=== PATIENT | female | born 1990 | race Caucasian/White ===

== ENCOUNTER 2023-03-12 21:59 | Outpatient (OUT) | payer MEDICAID, SELFPAY ==
[2023-03-15 18:09] LABS: Age Gdln ACOG Testing Note (.); HPV Aptima Negative (Negative); IGP, Aptima HPV, rfx 16/18,45 Note (.)
== END 2023-03-12 22:00 ==
PROVIDERS: PCP Physician Assistant; Visit Provider Physician Assistant
DX: Z12.4 Encounter for screening for malignant neoplasm of cervix (principal); Z11.51 Encounter for screening for human papillomavirus (HPV)
CPT/HCPCS: 87624; G0145

== ENCOUNTER 2023-08-01 13:26 | Outpatient (RCR) | payer MEDICAID, SELFPAY ==
[2023-08-01 14:30] LABS: HCG Quantitative 1250 mIU/mL
[2023-08-03 12:08] LABS: HCG Quantitative 8433 mIU/mL
== END 2023-08-30 16:57 | disposition home or self-care (01) ==
LOC: LAB 13:26
PROVIDERS: PCP Physician Assistant; Visit Provider Obstetrics & Gynecology
DX: N92.6 Irregular menstruation, unspecified (principal)
CPT/HCPCS: 36415; 84702

== ENCOUNTER 2023-08-30 13:26 | Outpatient (OUT) | payer MEDICAID, SELFPAY ==
--- NOTE | 2023-08-30 13:27 | US_ITS ---
[address] [address] Patient Name: CRISTIAN DONALDSON MRN: [id number] date: 1990 Sex: F Assigned Patient Location: US Current Patient Location: US Accession/Order Number: [id number] Exam Date: 08/30/2023 13:44 Report Date: 08/30/2023 15:46 At the request of: DAVIN RGEEN Procedure: US OB transvaginal EXAMINATION: US OB transvaginal HISTORY: MISSED MENSES COMPARISON: No relevant comparison available. FINDINGS: GESTATIONAL SAC: Present and normal appearing. YOLK SAC: Present and normal appearing. POLE: Present and normal appearing. CARDIAC: Present. UTERUS: Normal size and appearance. OVARIES: Right: Normal. Left: Corpus lutein cyst. CERVIX: 4.0 cm in length and closed. CUL-DE-SAC: Normal. OTHER: None. AGE BY LMP: 9 weeks 0 days CLAUDETTE BY LMP: 04/03/2024 AGE BY US CRL: 9 weeks 2 days CLAUDETTE BY US CRL: 04/01/2024 US/US OB transvaginal IMPRESSION: 1. Single live intrauterine . Electronically authenticated by: BOBBI SIMONS Date: 08/30/2023 15:46
== END 2023-08-30 13:27 | disposition home or self-care (01) ==
LOC: US 13:26
PROVIDERS: PCP Physician Assistant; Visit Provider Obstetrics & Gynecology
DX: Z34.91 Encounter for supervision of normal pregnancy, unspecified, first trimester (principal); Z3A.09 9 weeks gestation of pregnancy
CPT/HCPCS: 76817

== ENCOUNTER 2023-09-07 13:33 | Outpatient (OUT) | payer MEDICAID, SELFPAY ==
[2023-09-07 14:04] LABS: Basophils Percent Auto 0.4 % (0.2-2.0); Eosinophils Absolute Auto 0.1 10^3/uL (0.0-0.7); Eosinophils Percent Auto 1.8 % (0.9-7.0); Hematocrit 35.5 % (36.0-48.0); Hemoglobin 11.7 g/dL (12.0-16.0); Immature Granulocytes Abs Auto 0.02 10^3/uL (0.00-0.03); Immature Granulocytes Pct Auto 0.3 % (0.0-0.5); Lymphocytes Absolute Auto 1.6 10^3/uL (1.2-3.8); Lymphocytes Percent Auto 22.4 % (20.5-60.0); Mean Corpuscular Hemoglobin 29.5 pg (26.7-34.0); Mean Corpuscular Volume 89.6 fL (81.0-99.0); Mean Platelet Volume 10.3 fL (9.5-13.5); Monocytes Absolute Auto 0.4 10^3/uL (0.3-0.8); Monocytes Percent Auto 5.7 % (1.7-12.0); Neutrophils Percent Auto 69.4 % (43.0-75.0); Platelet Count 256 10^3/uL (150-450); Red Blood Count 3.96 10^6/uL (4.20-5.40); Red Cell Distribution Width 12.6 % (11.0-15.0); White Blood Count 7.2 10^3/uL (4.0-11.0)
[2023-09-07 14:20] LABS: Estimated Average Glucose 100 mg/dL; Glycohemoglobin A1C 5.1 % (4.5-6.2)
[2023-09-07 14:30] LABS: Thyroid Stimulating Hormone 0.125 uIU/mL (0.358-3.740)
[2023-09-08 06:09] LABS: HBsAg Screen Negative (Negative); HCV Ab Non Reactive (Non Reactive); HIV Ab/p24 Ag Screen Non Reactive (Non Reactive)
[2023-09-08 07:09] LABS: Rubella Antibodies, IgG 1.41 index (Immune >0.99)
[2023-09-08 11:11] LABS: Rapid Plasma Reagin, Quant Non Reactive titer (NonRea<1:1)
== END 2023-09-07 13:34 | disposition home or self-care (01) ==
LOC: LAB 13:35
PROVIDERS: PCP Physician Assistant; Visit Provider Obstetrics & Gynecology
DX: N92.6 Irregular menstruation, unspecified (principal); Z36.0 Encounter for antenatal screening for chromosomal anomalies
CPT/HCPCS: 36415; 83036; 84443; 85025; 86592; 86762; 86803; 86850; 86900; 86901; 87086; 87340; 87389

== ENCOUNTER 2023-10-08 11:46 | Outpatient (OUT) | payer MEDICAID, SELFPAY ==
--- OUTSIDE RECORDS SUMMARY | 2023-10-08 11:53 | XMS_ITS | CCD ---
Author Name Unknown Address [address] [place] [address] Organization [facility] Care Team Providers Care Commuter Pilot Name Role Phone Gehlot, Upender Unavailable Unavailable Gehlot, Upender Unavailable Unavailable EMPERATRIZ CERNA Unavailable Unavailable Sally Morejon Primary Care Provider Unavailable Primary Care Provider UnavailCANDACE Dubon Referring Unavailable Sally Morejon Primary Care Provider Sally Morejon CNP Primary Care Provider [phone] Shayla Valle Unavailable JUMANA Valle Attending Provider AICHHOLZ, INTERVENTION ANALYST VITO Admitting Unavailable AICHHOLZ, INTERVENTION ANALYST VITO Attending Unavailable AICHHOLZ, INTERVENTION ANALYST VITO Primary Care Unavailable AICHHOLZ, INTERVENTION ANALYST VITO Consulting Unavailable NORMA ., DR JIN Admitting Unavailable NORMA ., DR JIN Attending Unavailable AICHHOLZ, INTERVENTION ANALYST VITO Primary Care Unavailable NORMA ., DR JIN Consulting Unavailable RONAK, DR BOBBI Bianchi Consulting Unavailable NORMA ., DR JIN Admitting Unavailable NORMA ., DR JIN Attending Unavailable AICHHOLZ, INTERVENTION ANALYST VITO Primary Care Unavailable NORMA ., DR JIN Consulting Unavailable RONAK, DR BOBBI Bianchi Consulting Unavailable NORMA ., DR JIN Admitting Unavailable NORMA ., DR JIN Attending Unavailable AICHHOLZ, INTERVENTION ANALYST VITO Primary Care Unavailable NORMA ., DR JIN Consulting Unavailable AICHHOLZ, INTERVENTION ANALYST VITO Admitting Unavailable AICHHOLZ, INTERVENTION ANALYST VITO Attending Unavailable AICHHOLZ, INTERVENTION ANALYST VITO Primary Care Unavailable NORMA ., DR JIN Admitting Unavailable NORMA ., DR JIN Attending Unavailable AICHHOLZ, INTERVENTION ANALYST VITO Primary Care Unavailable NORMA ., DR JIN Consulting Unavailable NORMA ., DR JIN Admitting Unavailable NORMA ., DR JIN Attending Unavailable AICHHOLZ, INTERVENTION ANALYST VITO Primary Care Unavailable NORMA ., DR JIN Consulting Unavailable AGUBOSIMWADE Consulting Unavailable SOFI XIAO Consulting Unavailable NORMA ., DR JIN Admitting Unavailable NORMA ., DR JIN Attending Unavailable AICHHOLZ, INTERVENTION ANALYST VITO Primary Care Unavailable NORMA ., DR JIN Consulting Unavailable AICHHOLZ, INTERVENTION ANALYST VITO Admitting Unavailable AICHHOLZ, INTERVENTION ANALYST VITO Attending Unavailable AICHHOLZ, INTERVENTION ANALYST VITO Primary Care Unavailable [place], DR JO-ANN Nicolas Consulting Unavailable AICHHOLZ, INTERVENTION ANALYST VITO Consulting Unavailable Yoel Jarrett Unavailable MD Karan Beaulieu Attending Provider NON STAFF Primary Care Provider Unavailalonso e NON STAFF Primary Care Unavailable Karan Beaulieu Attending UnavailKaran Salter Admitting UnavailShayla Jordan Attending Unavailable Shayla Valle Admitting Unavailable Allergies Allergy Classification Reported Allergen(s) Allergy Type Date of Onset Reaction(s) Facility (13 sources) Penicillins (Antibiotic) Allergy to substance 9 [facility] Work Phone: (8 sources) busPIRone Drug Allergy 0 [facility] Work Phone: (3 sources) Penicillin G Drug Allergy Unknown [facility] [employer] Other (1 source) Penicillin Drug Allergy [facility] Repository (1 source) Penicillins Drug allergy (disorder) 3 [facility] Repository Medications Current Medications Medication Drug Class(es) Dates Sig (Normalized) Sig (Original) [id number] 200 actuat albuterol 0.09 mg/actuat metered dose inhaler (19 sources) beta2-Adrenergic Agonist Start: 07-28-2019 End: 12-30-2019 ProAir HFA 108 (90 Base) MCG/ACT Inhalation Aerosol Solution 12/30/2019 Provider: Candace Grossman CNP Start: 07-28-2019 End: 12-30-2019 ProAir HFA 108 (90 Base) MCG /ACT Inhalation Aerosol Solution 12/30/2019 Provider: Candace Grossman CNP buPROPion hydrochloride 100 mg oral tablet (2 sources) Aminoketone Start: 03-16-2023 take 150 mg by mouth once daily Bupropion Hcl Active 150 MG PO Daily March 16, 2023 12:00am take 1 tablet by leda th every twenty-four hours Wellbutrin XL 150 MG 1 tablet in the morning Orally Once a day Active Crutches Underarm Crutches (1 source) Start: 02-07-2023 Crutches Under arm Crutches January, Active {21 (drospirenone 3 MG / ethinyl estradiol 0.03 MG Oral Tablet) / 7 (inert ingredients 1 MG Oral Tablet) } Pack [Ocella 28 Day] (20 sources) Progestin, Estrogen Start: 03-29-2020 Ocella 3-0 .03 MG Oral Tablet 03/29/2020 Provider: Candace Grossman CNP Start: 10-20-2019 End: 03-29-2020 Ocella 3-0.03 MG Oral Tablet 10/20/2019 - 03/29/2020 Provider: Candace Grossman CNP Start: 10-20-2019 Ocella 3-0.03 MG Oral Tablet 10/20/2019 Provider: Candace Grossman CNP Start: 10-14-2019 End: 10-20-2019 Ocella 3-0.03 MG Oral Tablet 10/14/2019 - 10/20/2019 Provider: Candace Grossman CNP Start: 10-14-2019 Ocella 3-0.03 MG Oral Tablet 10/14/2019 Provider: Candace Grossman CNP Start: 08-19-2019 End: 10-14-2019 Ocella 3-0.03 MG Oral Tablet 08/19/2019 - 10/14/2019 Provider: Candace Grossman CNP Start: 08-19-2019 Ocella 3-0.03 MG Oral Tablet 08/19/2019 Provider: Candace Grossman CNP 120 actuat fluticasone propionate 0.115 mg/actuat / salmeterol 0.021 mg/actuat metered dose inhaler (20 sources) Corticosteroid, beta2-Adrenergic Agonist Start: 03-29-2020 Advair HFA 115- 21 MCG/ACT Inhalation Aerosol 03/29/2020 Provider: Candace Grossman CNP Start: 03-29-2020 Advair HFA 115 -21 MCG/ACT Inhalation Aerosol 03/29/2020 Provider: Candace Grossman CNP Start: 07-28-2019 End: 03-29-2020 Advair HFA 115-21 MCG/ACT In halation Aerosol 12/29/2019 - 12/30/2019 Provider: Candace Grossman CNP hydrOXYzine pamoate 25 mg oral capsule (5 sources) Antihistamine Start: 03-29-2020 End: 04-24-2020 Vistaril 25 MG Oral Capsule 04/24/2020 Provider: Candace Grossman CNP ketoconazole 20 mg/ml medicated shampoo (12 sources) Azole Antifungal Start: 03-29-2020 Ketoconazole 2% External Shampoo 03/29/2020 Provider: Candace Grossman CNP Start: 03-29-2020 Ketoconazole 2 % External Shampoo 03/29/2020 Provider: Candace Grossman CNP Start: 10-14-2019 End: 03-29-2020 Ketoconazole 2% External Sha mpoo 03/29/2020 Provider: Candace Grossman CNP nystatin [id number] unt/ml oral suspension (1 source) Polyene Antifungal Start: 05-29-2023 take 5 mL by mouth three times daily Nystatin [id number] UNIT/ML 5 ml Mouth/Throat 3 times a day for 10 days swish and swallow May, Active omeprazole 40 mg delayed release oral capsule (2 sources) Proton Pump Inhibitor Start: 03-19-2023 take 40 mg by mouth twice daily Omeprazole Active 40 MG PO Twice daily 60 March 19, 2023 12:00am Start: 03-16-2023 take 20 mg by mouth once daily Omeprazole Active 20 MG PO Daily March 16, 2023 12:00am ondansetron 4 mg disintegrating oral tablet (3 sources) Serotonin-3 Receptor Antagonist Ondansetron 4 MG Oral for 10 Days Active sertraline 100 mg oral tablet (4 sources) Serotonin Reuptake Inhibitor Start: take 100 mg by mouth once daily Sertraline Active 100 MG PO Daily March 16, 2023 12:00am traZODone hydrochloride 150 mg oral tablet (20 sources) Serotonin Reuptake Inhibitor Start: 0 traZODone HCl 150 MG Oral Tablet 03/29/2020 Provider: Candace Grossman CNP Start: 03-29-2020 traZODone HCl 50 MG Oral Tablet 03/29/2020 Provider: Candace Grossman CNP Start: 03-29-2020 traZODone HCl 150 MG Oral Tablet 03/29/2020 Provider: Candace Grossman CNP Start: 03-29-2020 traZODone HCl 50 MG Oral Tablet 03/29/2020 Provider: Candace Grossman CNP Start: 12-30-2019 End: 03-29-2020 traZODone HCl 150 MG Oral Ta blet 03/29/2020 Provider: Candace Grossman CNP Start: 10-14-2019 End: 04-09-2020 traZODone HCl 50 MG Oral Tab let 01/29/2020 - 03/29/2020 Provider: Candace Grossman CNP valACYclovir 500 mg oral tablet (4 sources) Herpesvirus Nucleoside Analog DNA Polymerase Inhibitor, Herpes Simplex Virus Nucleoside Analog DNA Polymerase Inhibitor, Herpes Zoster Virus Nucleoside Analog DNA Polymerase Inhibitor Start: 03-16-2023 take 500 mg by mouth once daily Valacyclovir Active 500 MG PO Daily March 16, 2023 12:00am 24 hr venlafaxine 150 mg extended release oral capsule (20 sources) Serotonin and Norepinephrine Reuptake Inhibitor Start: 09-18-2019 End: 03-24-2021 take 1 capsule by mouth every twenty-four hours Effexor XR 150 MG Oral Capsule Extended Release 24 Hour 03/29/2020 - 03/24/2021 Provider: Candace Grossman CNP Start: 07-28-2019 End: 09-18-2019 take 1 capsule by mouth every twenty-four hours Effexor XR 75 MG Oral Capsule Extended Release 24 Hour 07/28/2019 - 09/18/2019 Provider: Candace Grossman CNP Completed/Discontinued Medications Medication Drug Class(es) Dates Sig (Normalized) Sig (Original) ALPRAZolam 0.5 mg oral tablet (3 sources) Benzodiazepine take 1 tablet by mouth every eight hours Xanax 0.5 MG 1 tablet Orally Three times a day Not-Taking 24 hr amphetamine aspartate 7.5 mg / amphetamine sulfate 7.5 mg / dextroamphetamine saccharate 7.5 mg / dextroamphetamine sulfate 7.5 mg extended release oral capsule (3 sources) Central Nervous System Stimulant Adderall XR 30 MG Orally Not-Taking azithromycin 250 mg oral tablet (6 sources) Macrolide Antimicrobial Start: 12-30-2019 End: 03-29-2020 Azithromycin 250 MG Oral Tablet 12/30/2019 - 03/29/2020 Provider: Candace Grossman CNP Biotin (3 sources) take 1 capsule by mouth once daily PA Biotin 5000 MCG 1 capsule Orally Once a day Not-Taking busPIRone hydrochloride 10 mg oral tablet (10 sources) Start: 09-04-2019 End: 10-14-2019 busPIRone HCl 10 MG Oral Tablet 09/04/2019 - 10/14/2019 Provider: Candace Grossman CNP Calcium (3 sources) Phosphate Binder, Calcium Calcium Not-Taking dextromethorphan hydrobromide 3 mg/ml / promethazine hydrochloride 1.25 mg/ml oral solution (4 sources) Phenothiazine, Uncompetitive S-ukcxkn-F-aspartat e Receptor Antagonist, Sigma-1 Agonist Start: 01-08-2020 End: 03-29-2020 Promethazine-DM 6.25-15 MG/5ML Oral Syrup 01/08/2020 - 03/29/2020 Provider: Candace Grossman CNP Ethinyl Estradiol / norgestimate (6 sources) Progestin, Estrogen Tri-Sprintec 0.18/0.215/0.25 MG-35 MCG Oral for 28 Days Not-Taking Tri-Sprintec 0.1 8/0.215/0.25 MG-35 MCG Oral for 28 Days Active take 1 tablet by mouth once thania y Ortho Tri-Cyclen (28) 0.18/0.215/0.25 MG-35 MCG 1 tablet Orally Once a day Not-Taking etonogestrel 68 mg drug implant (2 sources) Progestin Start: 04-08-2020 Nexplanon 68 M G SC IMPL Enctr for init prescription of implntbl subdermal contracep 04/08/2020 Linnea Escobar CNP Comment on above: Patient tolerated th erapy well. No signs or symptoms of adverse reactions. Magnesium (3 sources) take 1 tablet by mouth once daily Magnesium 250 MG 1 tablet with a meal Orally Once a day Not-Taking naproxen 500 mg oral tablet (3 sources) Nonsteroidal Anti-inflammatory Drug take 1 tablet by mouth every twelve hours Naprosyn 500 MG 1 tablet as needed Orally Twice a day Not-Taking Problems Active Problems Problem Classification Problem Date Documented Date Episodic/Chronic Abdominal pain (1 source) Epigastric pain; Translations: [Epigastric pain] Onset: 03-19-2023 Episodic Anxiety disorders (20 sources) Generalized anxiety disorder; Translations: [Generalized anxiety disorder] Onset: 07-28-2019 Chronic Asthma (14 sources) Mild intermittent asthma with (acute) exacerbation; Translations: [Unspecified asthma, uncomplicated] Onset: 07-28-2019 Chronic Esophageal disorders (7 sources) Gastroesophageal reflux disease; Translations: [Gastro-esophageal reflux disease without esophagitis] Onset: 03-19-2023 Chronic Menstrual disorders (4 sources) Irregular menstruation, unspecified; Translations: [IRREGULAR MENSTRUATION UNSPECIFIED] Onset: 05-18-2022 Chronic Mood disorders (20 sources) Severe recurrent major depre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 features; Translations: [Dysthymia] Onset: 07-28-2019 Chronic Mycoses (1 source) Candidal stomatitis Episodic Other non-traumatic joint disorders (1 source) Pain in right knee Episodic Other non-traumatic joint disorders (4 sources) Pain in right hip; Translations: [PAIN IN RIGHT HIP] Onset: 12-27-2022 Episodic Other non-traumatic joint disorders (1 source) Pain in left hip; Translations: [PAIN IN LEFT HIP] Onset: 12-27-2022 Episodic Other nutritional; endocrine; and metabolic disorders (1 source) Overweight; Translations: [Overweight] Onset: 05-03-2020 Chronic Other nutritional; endocrine; and metabolic disorders (1 source) Obesity, unspecified; Translations: [OBESITY UNSPECIFIED] Onset: 05-26-2022 Chronic Other nutritional; endocrine; and metabolic disorders (1 source) Body mass index (BMI) 30.0-30.9, adult; Translations: [BODY MASS INDEX BMI 30.0-30.9 ADULT] Onset: 05-26-2022 Chronic Superficial injury; contusion (1 source) Contusion of right knee, initial encounter Episodic Unclassified (1 source) CONTACT W/AND (SUSP) EXPOS COVID-19; Translations: [CONTACT W/AND (SUSP) EXPOS COVID-19] Onset: 05-22-2022 Unclassified (1 source) Pain in right knee; Translations: [Pain in right knee] Onset: 02-07-2023 Past or Other Problems Problem Classification Problem Date Documented Date Episodic/Chronic Diabetes mellitus without complication (13 sources) Diabetes mellitus without complication; Translations: [Questionnaires Phq-9 Total Score] Onset: 07-28-2019 Mood disorders (2 sources) Major depressive disorder, single episode, unspecified; Translations: [Depressive Disorder, Nos] Onset: 03-29-2020 Other complications of (5 sources) Missed ; Translations: [MISSED ] Onset: 05-22-2022 Episodic Other complications of (1 source) Blighted ovum and nonhydatidiform mole; Translations: [BLIGHTED OVUM NONHYDATIDIFORM MOLE] Onset: 05-29-2022 Episodic Other screening for suspected conditions (not mental disorders or infectious disease) (20 sources) Encounter for screening for diabetes mellitus; Translations: [Diabetes Risk Test Score] Onset: 07-28-2019 Episodic Ovarian cyst (1 source) Unspecified ovarian cyst, left side; Translations: [UNSPECIFIED OVARIAN CYST LEFT SIDE] Onset: 05-29-2022 Episodic Residual codes; unclassified (8 sources) Finding of body mass index; Translations: [Body mass index [BMI]] Onset: 07-28-2019 Episodic Residual codes; unclassified (4 sources) Other specified postprocedural states; Translations: [OTH SPECIFIED POSTPROCEDURAL STATES] Onset: 07-04-2022 Episodic Unclassified (20 sources) Finding of body mass index; Translations: [Body Mass Index] Onset: 07-28-2019 Unclassified (13 sources) Assessment using generalized anxiety disorder 7 item score; Translations: [Questionnaires Zan-7 Score] Onset: 07-28-2019 Unclassified (2 sources) Contraception care management; Translations: [Visit For: Contraceptive Management] Onset: 04-08-2020 Results Test Name Value Interpretation Reference Range Facility HCG ( test) IAnupur d Ql (U)Ordered By: Karan Beaulieu on 03-19-2023 HCG ( test) Ql (U) Negative [facility] HCG,Urineon 03-19-2023 Beta HCG ( test) Ql (U) Negative Normal [facility] Comment on above: Result Comment: PERF ORMED BY: [address] [place] [address] PATHOLOGIST ONCOLOGY ADMIN JOYCE ACHARYA M.D. Performed By: #### U HCG #### [facility] [id number] [facility] 03-19-2023 L Specimen: [id number] Received: 03/19/23 Status: HEMANT Torres Num: [id number] Spec Type: Surgical Subm Dr: Karan Beaulieu MD Tissues: A Duodenum - Biopsy (DUODENAL BX) B Esophagus Biopsy (ESOPHAGEAL) Procedures: HE/Maday, Gross/Micro L4/2 Age/ Patient Sex Location Account Attending Physician Vy Mckeon 32/F [id number] Karan Beaulieu MD SPEC NUM: [id number] RECD: 03/19/23 STATUS: HEMANT TORRES NUM: [id number] ASAD: 03/19/23 [facility] DR: Karan Beaulieu MD ENTERED: 03/19/[address] [facility] [address]: SPEC TYPE: Surgical DEPT: S ORDERED: HE/4, Gross/Micro L4/2 ORDERED: HE/4, Gross/Micro L4/2 Pathological Diagnosis A. Small bowel, duodenum, biopsy: - Small intestinal mucosa negative for significant histopathologic changes. - Negative for celiac disease. B. Esophagus, biopsy: - Squamous mucosa, negative for significant histopathologic changes. - Negative for Mejias?s esophagus (H E stain). - Negative for dysplasia. - Negative for eosinophilic esophagitis. Clinical Information GERD, rule out sprue, rule out EOE Gross Description A. Received in formalin labeled with the patient's name, date of and duodenal biopsy rule out sprue are three curtis tissues averaging 0.2 cm. Entirely submitted in one cassette labeled A1. B. Received in formalin labeled with the patient's name, date of and esophageal rule out EOE is one curtis tissue measuring 0.6 x 0.2 x 0.1 cm. Entirely submitted in one cassette labeled B1. Specimen: [id number] Received: 03/19/23 Status: HEMANT Torres Num: [id number] Spec Type: Surgical Subm Dr: Karan Beaulieu MD Tissues: A Duodenum - Biopsy (DUODENAL BX) B Esophagus Biopsy (ESOPHAGEAL) Procedures: HE/4, Gross/Micro L4/2 Patient: Vy Mckeon [id number] (Continued) Specimen: [id number] Received: 03/19/23 (Continued) Signed (signature on file) Doris Reynolds MD 03/20/23 1117 Specimen: [id number] Received: 03/19/23 Status: HEMANT Melissa Num: [id number] Spec Type: Surgical Subm Dr: Karan Beaulieu MD Tissues: A Duodenum - Biopsy (DUODENAL BX) B Esophagus Biopsy (ESOPHAGEAL) Procedures: ROBINA/Maday, Gross/Micro L4/2 Patient: Vy Mckeon [id number] (Continued) Specimen: [id number] Received: 03/19/23 (Continued) Microscopic Description A. Two with H E stained material have been examined. The microscopic findings support the above pathologic diagnosis. B. Two with H E stained material have been examined. The microscopic findings support the above pathologic diagnosis. CPT Codes 88301 x 2 Specimen: [id number] Received: 03/19/23 Status: HEMANT Torres Num: [id number] Spec Type: Surgical Subm Dr: Karan Beaulieu MD Tissues: A Duodenum - Biopsy (DUODENAL BX) B Esophagus Biopsy (ESOPHAGEAL) Procedures: HE/4, Gross/Micro L4/2 Patient: Vy Mckeon [id number] (Continued) Signed (signature on file) Doris Reynolds MD 03/20/23 1117 [facility] CBC AUTO DIFFon 02-09-2023 BASO # 0.0 103/ul Normal 0.0-0.1 [facility] Comment on above: Performed By: #### C BC ####[facility] [address] [address]Dr. Zafar [place] Basophils/100 WBC (Bld) 0.3 % Normal 0.2-2.0 [facility] Comment on above: Performed By: #### C BC ####[facility] [address] [address]DrBryant Branham EO # 0.2 103/ul Normal 0.0-0.7 [facility] Comment on above: Performed By: #### C BC ####[facility] [address] [address]DrBryant Branham Eosinophils/100 WBC (Bld) 1.7 % Normal 0.9-7.0 [facility] Comment on above: Performed By: #### C BC ####[facility] [address] [place], [place] [address]Dr. Zafar Branham Erythrocyte distribution width (RBC) [Ratio] 13.9 % Normal 11.0-15.0 [facility] Comment on above: Performed By: #### C BC ####[facility] [address] [place], [place] [address]DrBryant Branham Hematocrit (Bld) [Volume fraction] 41.0 % Normal 36.0-48.0 [facility] Comment on above: Performed By: #### C BC ####[facility] [address] [id number]. Zafar Branham Hemoglobin (Bld) [Mass/Vol] 13.4 g/dL Normal 12.0-16.0 [facility] Comment on above: Performed By: #### C BC ####[facility] [address] [id number]. Zafar Branham IG # 0.03 10e3/ul Normal 0.00-0.03 [facility] Comment on above: Performed By: #### C BC ####[facility] [address] [id number]. Zafar [place]ham IG % 0.3 % Normal 0.0-0.5 [facility] Comment on above: Performed By: #### C BC ####[facility] [address] [address]Dr. Zafar Branham LYMPH # 1.4 103/ul Normal 1.2-3.8 [facility] Comment on above: Performed By: #### C BC ####[facility] [address] [id number]. Zafar Branham Lymphocytes/100 WBC (Bld) 14.8 % Critically low 20.5-60.0 [facility] Comment on above: Performed By: #### C BC ####[facility] [address] [id number]. Zafar Branham MANUAL DIFF REQ NO Normal [facility] Comment on above: Performed By: #### C BC ####[facility] [address] [id number]. Zafar Branham MCH (RBC) [Entitic mass] 28.8 pg Normal 26.7-34.0 [facility] Comment on above: Performed By: #### C BC ####[facility] [address] [address]Dr. Zafar Branham MCHC (RBC) [Mass/Vol] 32.7 g/dL Normal 29.9-35.2 [facility] Comment on above: Performed By: #### C BC ####[facility] [address] [id number]. Zafar Branham MCV (RBC) [Entitic vol] 88.0 fL Normal 81.0-99.0 [facility] Comment on above: Performed By: #### C BC ####[facility] [address] [id number]. Zafar Branham MONO # 0.4 103/ul Normal 0.3-0.8 [facility] Comment on above: Performed By: #### C BC ####[facility] [address] [address]Dr. Zafar Branham Monocytes/100 WBC (Bld) 3.9 % Normal 1.7-12.0 [facility] Comment on above: Performed By: #### C BC ####[facility] [address] [place], [place] [address]Dr. Zafar Branham NEUT # 7.2 103/ul Critically high 1.4-6.5 [facility] Comment on above: Performed By: #### C BC ####[facility] [address] [place], [place] [address]Dr. Zafar Branham Neutrophils/100 WBC (Bld) 79.0 % Critically high 43.0-75.0 [facility] Comment on above: Performed By: #### C BC ####[facility] [address] [place], [place] [address]Dr. Zafar Branham Platelet mean volume (Bld) [Entitic vol] 10.7 fL Normal 9.5-13.5 [facility] Comment on above: Performed By: #### C BC ####[facility] [address] [id number]. Zafar Branham PLT 353 103/ul Normal 150-450 [facility] Comment on above: Performed By: #### C BC ####[facility] [address] [place], [place] [address]Dr. Zafar Yonas RBC 4.66 106/ul Normal 4.20-5.40 [facility] Comment on above: Performed By: #### C BC ####[facility] [address] [place], [place] [address]Oh. Zafar Branham WBC 9.2 103/ul Normal 4.0-11.0 [facility] Comment on above: Performed By: #### C BC ####[facility] [address] [place], [place] [address]Bg. Zafar Branham CRPon 02-09-2023 CRP 1.0 mg/dL Normal <=1.0 [facility] Comment on above: Performed By: #### C RP, CMP, TSH, LIPID ####[facility] [address] [id number]. Zafar Branham FREE T4on 02-09-2023 Free T4 [Mass/Vol] 1.01 ng/dL Normal 0.76-1.46 [facility] Comment on above: Performed By: #### F T4 #### [facility] [address] [place], [place] [address] Dr. Zafar Branham LIPID PROFILEon 02-09-2023 CHOL-HDL RATIO NORM SEE BELOW Normal [facility] Comment on above: Result Comment: 3.3 - 4.4 LOW RISK 4.4 - 7.1 AVERAGE RISK 7.1 - 11.0 MODERATE RISK >11.0 HIGH RISK Performed By: #### C RP, CMP, TSH, LIPID ####[facility] [address] [place], [place] [address]Zh. Zafar Branham Cholesterol [Mass/Vol] 230 mg/dL Critically high <=200 [facility] Comment on above: Performed By: #### C RP, CMP, TSH, LIPID ####[facility] [address] [place], [place] [address]Ac. Zafar Branham Cholesterol in HDL [Mass/Vol] 71 mg/dL Critically high 40-60 [facility] Comment on above: Performed By: #### C RP, CMP, TSH, LIPID ####[facility] [address] [place], [place] [address]La. Zafar Branham Cholesterol in LDL [Mass/Vol] 139.4 mg/dL Normal [facility] [facility] Comment on above: Performed By: #### C RP, CMP, TSH, LIPID ####[facility] [id number] [place], [place] [address]Kc. Zafar Branham Cholesterol.total/C holesterol in HDL [Mass ratio] 3.2 {ratio} Normal [facility] Comment on above: Performed By: #### C RP, CMP, TSH, LIPID ####[facility] [id number] [place], [place] [address]Ek. Zafar Branham HDL NORMAL > or = 60 mg/dl - LOW CARDIOVASCULAR RISK <40 mg/dl - HIGH CARDIOVASCULAR RISK Normal [facility] Comment on above: Performed By: #### C RP, CMP, TSH, LIPID ####[facility] [address] [place] [id number]. Zafar Branham LDL CALC NORMAL SEE BELOW Normal [facility] Comment on above: Result Comment: <100 mg/dl OPTIMAL 100 - 129 mg/dl NEAR OR ABOVE OPTIMAL 130 - 159 mg/dl BORDERLINE HIGH 160 - 189 mg/dl HIGH >190 mg/dl VERY HIGH Performed By: #### C RP, CMP, TSH, LIPID ####[facility] [id number] [place], [place] [address]Jk. Zafar Branham Triglyceride [Mass/Vol] 98 mg/dL Normal <=150 [facility] Comment on above: Performed By: #### C RP, CMP, TSH, LIPID ####[facility] [address] [place], [place] [address]Yw. Zafar Branham VLDL CALC 19.6 mg/dL Normal [facility] Comment on above: Performed By: #### C RP, CMP, TSH, LIPID ####[facility] [id number] [place], [place] [address]Qt. Zafar Branham URon 02-09-2023 , QUAL Negative Normal NEGATIVE [facility] Comment on above: Performed By: #### U AMIC, PREGU #### [facility] Laboratory [address] [place], [place] [address] Dr. Zafar Branham PROF 14(COMP METB)on 023 Albumin [Mass/Vol] 4.0 g/dL Normal 3.4-5.0 [facility] Comment on above: Performed By: #### C RP, CMP, TSH, LIPID #### [facility] [address] [place] [address] [address] Zafar Branham Albumin/Globulin [Mass ratio] 0.9 {ratio} Normal [facility] Comment on above: Performed By: #### C RP, CMP, TSH, LIPID #### [facility] Laboratory [address] [place] [address] Dr. Zafar Branham ALP [Catalytic activity/Vol] 94 U/L Normal 46-116 [facility] Comment on above: Performed By: #### C RP, CMP, TSH, LIPID #### [facility] [address] [place] [address] Dr. Zafar Branham ALT [Catalytic activity/Vol] 30 U/L Normal 14-59 [facility] Comment on above: Performed By: #### C RP, CMP, TSH, LIPID #### [facility] [address] [place] [address] Dr. Zafar Branham Anion gap [Moles/Vol] 13.6 mmol/L Normal [facility] Comment on above: Performed By: #### C RP, CMP, TSH, LIPID #### [facility] [address] [place] [address] Dr. Zafar Branham AST [Catalytic activity/Vol] 23 U/L Normal 15-37 [facility] Comment on above: Performed By: #### C RP, CMP, TSH, LIPID #### [facility] [address] [place] [address] Dr. Zafar Branham Bilirubin [Mass/Vol] 0.3 mg/dL Normal 0.2-1.0 [facility] Comment on above: Performed By: #### C RP, CMP, TSH, LIPID #### [facility] [address] [place] [address] Dr. Zafar Branham Calcium [Mass/Vol] 9.7 mg/dL Normal 8.5-10.1 [facility] Comment on above: Performed By: #### C RP, CMP, TSH, LIPID #### [facility] [address] [place] [address] Dr. Zafar Branham Chloride [Moles/Vol] 100 mmol/L Normal 98-107 [facility] Comment on above: Performed By: #### C RP, CMP, TSH, LIPID #### [facility] [address] [place] [address] [address] Zafar Branham CO2 [Moles/Vol] 26.6 mmol/L Normal 21.0-32.0 [facility] Comment on above: Performed By: #### C RP, CMP, TSH, LIPID #### [facility] [address] [place] [address] Dr. Zafar Branham Creatinine [Mass/Vol] 1.00 mg/dL Normal 0.55-1.02 [facility] Comment on above: Performed By: #### C RP, CMP, TSH, LIPID #### [facility] [address] [place] [address] Dr. Zafar Branham EGFR-AF GABONESE >60 Normal >=60 [facility] Comment on above: Performed By: #### C RP, CMP, TSH, LIPID #### [facility] [address] [place] [address] Dr. Zafar Branham EGFR-NON AF GABONESE >60 Normal >=60 [facility] Comment on above: Performed By: #### C RP, CMP, TSH, LIPID #### [facility] [address] [place] [address] Dr. Zafar Branham Globulin (S) [Mass/Vol] 4.5 g/dL Normal [facility] Comment on above: Performed By: #### C RP, CMP, TSH, LIPID #### [facility] [address] [place] [address] Dr. Zafar Branham Glucose [Mass/Vol] 93 mg/dL Normal 74-106 [facility] Comment on above: Performed By: #### C RP, CMP, TSH, LIPID #### [facility] [address] [place] [address] Dr. Zafar Branham Potassium [Moles/Vol] 4.2 mmol/L Normal 3.5-5.1 [facility] Comment on above: Performed By: #### C RP, CMP, TSH, LIPID #### [facility] [address] [place] [address] [address] Zafar Branham Protein [Mass/Vol] 8.5 g/dL Critically high 6.4-8.2 [facility] Comment on above: Performed By: #### C RP, CMP, TSH, LIPID #### [facility] [address] [place] [address] [address] Zafar Branham Sodium [Moles/Vol] 136 mmol/L Normal 136-145 [facility] Comment on above: Performed By: #### C RP, CMP, TSH, LIPID #### [facility] [address] [place] [address] [address] Zafar Branham Urea nitrogen [Mass/Vol] 10.0 mg/dL Normal 7.0-18.0 [facility] Comment on above: Performed By: #### C RP, CMP, TSH, LIPID #### [facility] [address] [place] [address] [address] Zafar Branham Urea nitrogen/Creatinine [Mass ratio] 10.0 mg/mg Normal [facility] Comment on above: Performed By: #### C RP, CMP, TSH, LIPID #### [facility] [address] [place] [address] [address] Zafar Branham SED RATE [facility] 2022 SED RATE 49 mm/hr Critically high <=20 [facility] Comment on above: Performed By: #### S EDR ####[facility] [id number] [place] [address]Dr. Zafar Branham TSHon 02-09-2023 TSH 0.590 uIU/mL Normal 0.358-3.740 [facility] Comment on above: Performed By: #### C RP, CMP, TSH, LIPID #### [facility] [address] [place] [address] Dr. Zafar Branham UA RANDOM W/MICROSCOPICon BACTERIA NONE SEEN Normal NONE SEEN [facility] Comment on above: Performed By: #### U AMIC, PREGU #### [facility] [address] [place] [address] [address] Zafar Branham Bilirubin Ql (U) Negative Normal NEGATIVE [facility] Comment on above: Performed By: #### U AMIC, PREGU #### [facility] [address] [place] [address] [address] Zafar Branham CAST NONE SEEN Normal NONE SEEN [facility] Comment on above: Performed By: #### U AMIC, PREGU #### [facility] [address] [place] [address] [address] Zafar Branham Clarity (U) CLEAR Normal CLEAR [facility] Comment on above: Performed By: #### U AMIC, PREGU #### [facility] [address] [place] [address] [address] Zafar Branham Color (U) LT. YELLOW Normal YELLOW [facility] Comment on above: Performed By: #### U AMIC, PREGU #### [facility] [address] [place] [address] Dr. Zafar Branham Crystals LM Nom (Urine sed) NONE SEEN Normal NONE SEEN [facility] Comment on above: Performed By: #### U AMIC, PREGU #### [facility] [address] [place] [address] Dr. Zafar Branham Epithelial cells LM Ql (Urine sed) FEW Abnormal NONE SEEN /RARE [facility] Comment on above: Performed By: #### U AMIC, PREGU #### [facility] [address] [place] [address] Dr. Zafar Branham Glucose Ql (U) Negative Normal NEGATIVE [facility] Comment on above: Performed By: #### U AMIC, PREGU #### [facility] [address] [place] [address] [address] Zafar Branham Hemoglobin Ql (U) SMALL Abnormal NEGATIVE [facility] Comment on above: Performed By: #### U AMIC, PREGU #### [facility] [address] [place] [address] Dr. Zafar Branham Ketones Ql (U) Negative Normal NEGATIVE [facility] Comment on above: Performed By: #### U AMIC, PREGU #### [facility] [address] [place] [address] Dr. Zafar Branham LEUKOCYTES Negative Normal NEGATIVE [facility] Comment on above: Performed By: #### U AMIC, PREGU #### [facility] [address] [place] [address] [address] Zafar Branham MUCOUS NONE SEEN Normal NONE SEEN [facility] Comment on above: Performed By: #### U AMIC, PREGU #### [facility] [address] [place] [address] [address] Zafar Branham Nitrite Ql (U) Negative Normal NEGATIVE [facility] Comment on above: Performed By: #### U AMIC, PREGU #### [facility] [address] [place] [address] [address] Zafar Branham pH (U) 6.0 [pH] Normal 5-9 [facility] Comment on above: Performed By: #### U AMIC, PREGU #### [facility] [address] [place] [address] [address] Zafar Branham RBC 0-2 Normal 0-2 [facility] Comment on above: Performed By: #### U AMIC, PREGU #### [facility] [address] [place] [address] [address] Zafar Branham SPEC GRAVITY <=1.005 Abnormal 1.005-<=1.025 [facility] Comment on above: Performed By: #### U AMIC, PREGU #### [facility] [address] [place] [address] [address] Zafar Branham UA PROTEIN Negative Normal NEGATIVE/ TRACE [facility] Comment on above: Performed By: #### U AMIC, PREGU #### [facility] [address] [place] [address] [address] Zafar Branham Urobilinogen Qn (U) 0.2 {Ramy'U}/dL Normal 0.2 - 1. 0 [facility] Comment on above: Performed By: #### U AMIC, PREGU #### [facility] [address] [place] [address] [address] Zafar Branham WBC NONE SEEN Normal NONE SEEN [facility] Comment on above: Performed By: #### U AMIC, PREGU #### [facility] [address] [place] [address] [address] Zafar Branham XR knee RT 4V*on 02-07-2023 XR knee RT 4V* [facility] [employer] Other XR knee RT 4V* [facility] [employer] Other XR knee RT 4V* [address] [place] [address] [employer] Other XR knee RT 4V* [place] [address] No rt [employer] Other XR knee RT 4V* XRay Report [email or web address] Other XR knee RT 4V* Signed [employer] Other XR knee RT 4V* Patient: Vy Mckeon MR#: [id number] [place] [employer] Other XR knee RT 4V* 5 [employer] Other XR knee RT 4V* : 1990 Acct:[id number] [employer] Other XR knee RT 4V* Age/Sex: 32 / F ADM Date: 02/07/23 [employer] Other XR knee RT 4V* Loc: XDUCLY Room: Type: REG CLI [employer] Other XR knee RT 4V* Attending Dr: Shayla DENNEY [employer] Other XR knee RT 4V* Copies to: JUMANA Christianson [employer] Other XR knee RT 4V* Ordering Provider: JUMANA Christianson [employer] Other XR knee RT 4V* Date of Service: 02/07/23 [employer] Other XR knee RT 4V* XR/XR knee RT 4V*: RIGHT KNEE PAIN [employer] Other XR knee RT 4V* RIGHT KNEE - 4 views [employer] Other XR knee RT 4V* COMPARISON: None [place] [employer] Other XR knee RT 4V* CLINICAL DATA: Patient fell last night and landed on right anterior knee. Pain, swelling and [employer] Other XR knee RT 4V* abrasions. [employer] Other XR knee RT 4V* AP, lateral and both oblique views were obtained. There is no fracture or dislocation. There is no [employer] Other XR knee RT 4V* significant knee effusion or focal soft tissue swelling. [employer] Other XR knee RT 4V* XR/XR knee RT 4V* [employer] Other XR knee RT 4V* IMPRESSION: [email or web address] Other XR knee RT 4V* NO ACUTE BONY INJURY. [employer] Other XR knee RT 4V* Impression dictated by: Rama Garsia M.D.02/07/2023 10:01 AM [employer] Other XR knee RT 4V* Dictation Location: [place] [address] [employer] Other XR knee RT 4V* Transcribed By: MILKA 02/07/23 1001 [employer] Other XR knee RT 4V* Dictated By: Rama Garsia MD 02/07/23 1000 [employer] Other XR knee RT 4V* Signed By: [employer] Other XR knee RT 4V* 02/07/23 1001 [place] [employer] Other XR knee RT 4V* [facility] Main [place] [address] [place] [address] XRay Report Signed Patient: Vy Mckeon MR#: [id number] 5 : 1990 Acct:[id number] Age/Sex: 32 / F ADM Date: 02/07/23 Loc: XDUCLY Room: Type: [facility] Attending Dr: Shayla DENNEY Copies to: JUMANA Christianson Ordering Provider: JUMANA Christianson Date of Service: 02/07/23 XR/XR knee RT 4V*: RIGHT KNEE PAIN RIGHT KNEE - 4 views COMPARISON: None CLINICAL DATA: Patient fell last night and landed on right anterior knee. Pain, swelling and abrasions. AP, lateral and both oblique views were obtained. There is no fracture or dislocation. There is no significant knee effusion or focal soft tissue swelling. XR/XR knee RT 4V* IMPRESSION: NO ACUTE BONY INJURY. Impression dictated by: Rama Garsia M.D.02/07/2023 10:01 AM Dictation Location: [place] [address] Transcribed By: [facility] 02/07/23 1001 Dictated By: Rama Garsia MD 02/07/23 1000 Signed By: 02/07/[address] [facility] XR HIPS KARELY 5V W PELVISon XR HIPS KRAELY 5V W PELVIS EXAMINATION: XR HIPS KARELY 5V W PELVIS HISTORY: Bilateral hip joint pain COMPARISON: No relevant comparison available. FINDINGS: RIGHT FINDINGS: BONES: Normal. No significant arthropathy or acute abnormality. SOFT TISSUES: Negative. No visible soft tissue swelling. OTHER: Negative. LEFT FINDINGS: BONES: Normal. No significant arthropathy or acute abnormality. SOFT TISSUES: Negative. No visible soft tissue swelling. OTHER: Negative. IMPRESSION: RIGHT CONCLUSION: No acute abnormality LEFT CONCLUSION: No acute abnormality Electronically authenticated by: JO-ANN CHACON Date: 2022-12-17 13:04 Normal [facility] PREG QUANT HCGon 07-04-2022 HCG QUANT 1 mIU/mL Normal [facility] Comment on above: Performed By: #### P REGQNT #### [facility] Laboratory [address] [place] [address] Dr. Zafar Branham HCG RANGE SEE BELOW Normal [facility] Comment on above: Result Comment: 5-50 0.2-1 WEEK 50-500 1-2 WEEKS 100-5,000 2-3 WEEKS 500-10,000 3-4 WEEKS 1,000-50,000 4-5 WEEKS 10,000-100,000 5-6 WEEKS 15,000-200,000 6-8 WEEKS 10,000-100,000 2-3 MONTHS Performed By: #### P REGQNT #### [facility] [address] [place] [address] Dr. Zafar Branham PREG QUANT HCGon 06-08-2022 HCG QUANT 16 mIU/mL Normal [facility] Comment on above: Performed By: #### P REGQNT ####[facility] [id number] [place], [place] [address]Dr. Zafar Branham HCG RANGE SEE BELOW Normal [facility] Comment on above: Result Comment: 5-50 0.2-1 WEEK 50-500 1-2 WEEKS 100-5,000 2-3 WEEKS 500-10,000 3-4 WEEKS 1,000-50,000 4-5 WEEKS 10,000-100,000 5-6 WEEKS 15,000-200,000 6-8 WEEKS 10,000-100,000 2-3 MONTHS Performed By: #### P REGQNT ####[facility] [id number] [place], [place] [address]Dr. Zafar Branham CBC AUTO DIFFon 05-23-2022 BASO # 0.0 103/ul Normal 0.0-0.1 [facility] Comment on above: Performed By: #### C BC #### [facility] [address] [place] [address] Dr. Zafar Branham Basophils/100 WBC (Bld) 0.6 % Normal 0.2-2.0 [facility] Comment on above: Performed By: #### C BC #### [facility] [address] [place] [address] Dr. Zafar Branham EO # 0.3 103/ul Normal 0.0-0.7 [facility] Comment on above: Performed By: #### C BC #### [facility] [address] [place] [address] Dr. Zafar Branham Eosinophils/100 WBC (Bld) 6.5 % Normal 0.9-7.0 [facility] Comment on above: Performed By: #### C BC #### [facility] [address] [place] [address] Dr. Zafar Branham Erythrocyte distribution width (RBC) [Ratio] 12.5 % Normal 11.0-15.0 [facility] Comment on above: Performed By: #### C BC #### [facility] [address] [place] [address] Dr. Zafar Branham Hematocrit (Bld) [Volume fraction] 37.2 % Normal 36.0-48.0 [facility] Comment on above: Performed By: #### C BC #### [facility] [address] [place] [address] Dr. Zafar Branham Hemoglobin (Bld) [Mass/Vol] 12.1 g/dL Normal 12.0-16.0 [facility] Comment on above: Performed By: #### C BC #### [facility] [address] [place] [address] Dr. Zafar Branham IG # 0.01 10e3/ul Normal 0.00-0.03 [facility] Comment on above: Performed By: #### C BC #### [facility] [address] [place] [address] Dr. Zafar Branham IG % 0.2 % Normal 0.0-0.5 [facility] Comment on above: Performed By: #### C BC #### [facility] [address] [place] [address] Dr. Zafar Branham LYMPH # 1.5 103/ul Normal 1.2-3.8 [facility] Comment on above: Performed By: #### C BC #### [facility] [address] [place] [address] Dr. Zafar Branham Lymphocytes/100 WBC (Bld) 29.8 % Normal 20.5-60.0 [facility] Comment on above: Performed By: #### C BC #### [facility] [address] [place] [address] Dr. Zafar Branham MANUAL DIFF REQ NO Normal [facility] Comment on above: Performed By: #### C BC #### [facility] [address] [place] [address] Dr. Zafar Branham MCH (RBC) [Entitic mass] 29.1 pg Normal 26.7-34.0 [facility] Comment on above: Performed By: #### C BC #### [facility] [address] [place] [address] Dr. Zafar Brahnam MCHC (RBC) [Mass/Vol] 32.5 g/dL Normal 29.9-35.2 [facility] Comment on above: Performed By: #### C BC #### [facility] [address] [place] [address] Dr. Zafar Branham MCV (RBC) [Entitic vol] 89.4 fL Normal 81.0-99.0 [facility] Comment on above: Performed By: #### C BC #### [facility] [address] [place] [address] Dr. Zafar Branham MONO # 0.4 103/ul Normal 0.3-0.8 [facility] Comment on above: Performed By: #### C BC #### [facility] [address] [place] [address] Dr. Zafar Branham Monocytes/100 WBC (Bld) 7.9 % Normal 1.7-12.0 [facility] Comment on above: Performed By: #### C BC #### [facility] [address] [place] [address] Dr. Zafar Branham NEUT # 2.7 103/ul Normal 1.4-6.5 [facility] Comment on above: Performed By: #### C BC #### [facility] [address] [place] [address] Dr. Zafar Branham Neutrophils/100 WBC (Bld) 55.0 % Normal 43.0-75.0 [facility] Comment on above: Performed By: #### C BC #### [facility] [address] [place] [address] [address] Zafar Branham Platelet mean volume (Bld) [Entitic vol] 10.0 fL Normal 9.5-13.5 [facility] Comment on above: Performed By: #### C BC #### [facility] [address] [place] [address] [address] Zafar Branham PLT 229 103/ul Normal 150-450 [facility] Comment on above: Performed By: #### C BC #### [facility] [address] [place] [address] [address] Zafar Branham RBC 4.16 106/ul Critically low 4.20-5.40 [facility] Comment on above: Performed By: #### C BC #### [facility] [address] [place] [address] [address] Zafar Branham WBC 5.0 103/ul Normal 4.0-11.0 [facility] Comment on above: Performed By: #### C BC #### [facility] [address] [place] [address] [address] Zafar Branham TYPE AND SCREENon 05-23-2022 TYPE AND SCREEN Negative Normal [facility] Comment on above: Performed By: #### T NS ####[facility] [id number] [place], [place] [address]ZmDr. Zafar Branham Covid-19 PCR (CVDTB)on 05-01 SARS-CoV-2 (COVID-19) RNA MANOLO+probe Ql (Unsp spec) Not detected Normal NOT DETECTED [facility] Comment on above: Result Comment: This test is not yet approved or cleared by the [place] FDA. When there are no FDA-approved or cleared tests available, and other criteria are met, FDA can make tests available under an emergency access mechanism called an Emergency Use Authorization (EUA). The EUA for this test is supported by the [place] of Health and Human Service's (HHS's) declaration that circumstances exist to justify the emergency use of in vitro diagnostics for the detection and/or diagnosis of the virus that causes COVID-19. This EUA will remain in effect (meaning this test can be used) for the duration of the COVID-19 declaration justifying emergency of IVDs, unless it is terminated or revoked by FDA (after which the test may no longer be used). When diagnostic testing is negative, the possibility of a false negative should be considered in the context of a patient's recent exposures and the presence of clinical signs and symptoms consistent with SARS-CoV-2. Performed By: #### C [facility] #### [facility] [address] [place] [address] [address] Zafar Branham US PREG TVon 05-18-2022 US PREG TV EXAMINATION: US PREG TV HISTORY: Irregular periods , viability COMPARISON: Ultrasound transvaginal 05/03/2022 FINDINGS: GESTATIONAL SAC: Present, but with irregular shape and margins. POLE: Absent YOLK SAC: Absent CARDIAC: Absent UTERUS: Normal size and appearance. OVARIES: Right: Normal. Left: Decrease in size of previously seen left ovarian cysts. CERVIX: 3.1 cm in length and closed. CUL-DE-SAC: Normal. OTHER: None. AGE BY LMP: 11 weeks, 1 day CLAUDETTE BY LMP: 12/06/2022 AGE BY US CRL: 5 weeks, 6 days CLAUDETTE BY US CRL: 01/12/2023 IMPRESSION: 1. Intrauterine gestational sac which has not increased in size since prior study and is now irregular in shape; findings consistent with blighted ovum. 2. Interval decrease in size of the benign-appearing left ovarian cysts. Electronically authenticated by: BOBBI SIMONS Date: 2022-05-18 19:25 Normal [facility] US PREG TVon 05-03-2022 US PREG TV EXAMINATION: US PREG TV HISTORY: Missed period COMPARISON: No relevant comparison available. FINDINGS: GESTATIONAL SAC: Present and normal appearing. POLE: Absent. YOLK SAC: Absent. CARDIAC: Absent. UTERUS: Normal size and appearance. OVARIES: Right: Corpus lutein cyst. Left: Contains 2 large simple appearing cysts, 5.5 cm and 4.1 cm. CERVIX: 4.5 cm in length and closed. CUL-DE-SAC: Trace amount of free fluid. OTHER: None. AGE BY LMP: 9 weeks, 0 days CLAUDETTE BY LMP: 12/06/2022 AGE BY US CRL: 5 weeks, 6 days CLAUDETTE BY US CRL: 12/28/2022 IMPRESSION: 1. Early intrauterine versus blighted ovum. Electronically authenticated by: BOBBI SIMONS Date: 2022-05-03 16:32 Normal [facility] Chlamydia/GC DNA, TPon 05-05 Chlamydia Probe, TP Negative Normal NEG [facility] [facility] Comment on above: Result Comment: CHLA MYDIA TRACHOMATIS DNA not detected by nucleic acid amplification. This test is intended for medical purposes only and is not valid for the evaluation of suspected sexual abuse or for other forensic purposes. In certain contexts, culture may be required to meet applicable laws and regulations for diagnosis of C. trachomatis and N. gonorrhoeae infections. Per 2014 CDC recommendations, this test does not include confirmation of positive results by an alternative nucleic acid target. Performed By: #### C YTCGP #### [address] [id number] Train Brake Operator: King Boone MD Gonorrhea Probe, TP Negative Normal NEG [facility] Comment on above: Result Comment: NEIS SERIA GONORRHOEAE DNA not detected by nucleic acid amplification. This test is intended for medical purposes only and is not valid for the evaluation of suspected sexual abuse or for other forensic purposes. In certain contexts, culture may be required to meet applicable laws and regulations for diagnosis of C. trachomatis and N. gonorrhoeae infections. Per 2014 CDC recommendations, this test does not include confirmation of positive results by an alternative nucleic acid target. Performed By: #### C YTCGP #### [place] [id number] Train Brake Operator: King Boone MD HPV DNA High Riskon 05-05-20 20 HPV Interp Normal [facility] Comment on above: Result Comment: This test amplifies and detects DNA of 14 high-risk HPV types associated with cervical cancer and its precursor lesions (HPV types 16,18, 31, 33, 35, 39, 45, 51, 52, 56, 58, 59, 66, and 68). Sensitivity may be affected by specimen collection methods, stage of infection, and the presence of interfering substances. Results should be interpreted in conjunction with other available laboratory and clinical data. A negative high-risk HPV result does not exclude the possibility of future cytologic HSIL or underlying CIN2-3 or cancer. This test is intended for medical purposes only and is not valid for the evaluation of suspected sexual abuse or for other forensic purposes. Performed By: #### H PVH #### [address] [address] Train Brake Operator: King Boone MD HPV Type 16 Not Detected Normal [facility] Comment on above: Performed By: #### H PVH #### [address] [address] Train Brake Operator: King Boone MD HPV Type 18 Not Detected [facility] Comment on above: Performed By: #### H PVH #### [address] [address] Train Brake Operator: King Boone MD Other High Risk HPV Not Detected Normal [facility] Comment on above: Performed By: #### H PVH #### [address] [address] Train Brake Operator: King Boone MD HPV Sample .THIN PREP Normal [facility] Comment on above: Performed By: #### H PVH #### [address] [address] Train Brake Operator: King Boone MD Source .ENDOCERVIX Normal [facility] Comment on above: Performed By: #### H PVH #### [address] [address] Train Brake Operator: King Boone MD Otheron 05-04-2020 Direct Exam Negative [place] VAGINITIS DNA PROBEon 2019 Direct Exam Positive Abnormal [place] Direct Exam Method of testing is a DNA probe intended for detection and identification of Nirmala species, Gardnerella vaginalis, and Trichomonas vaginalis nucleic acid in vaginal fluid specimens from patients with symptoms of vaginitis/vaginosis. [place] Interpretation and review of laboratory results Abnormal [place] Special Requests NOT REPORTED [place] Specimen Description .VAGINAL SWAB [place] Vaginitis DNA Probeon 2019 Vaginitis DNA Probe Specimen Description .VAGINAL SWAB Special Requests NOT REPORTED Direct Exam POSITIVE for Gardnerella vaginalis. NEGATIVE for Nirmala sp. NEGATIVE for Trichomonas vaginalis Method of testing is a DNA probe intended for detection and identification of Nirmala species, Gardnerella vaginalis, and Trichomonas vaginalis nucleic acid in vaginal fluid specimens from patients with symptoms of vaginitis/vaginosis. Report Status FINAL 05/04/2020 Normal [facility] Comment on above: Performed By: #### V AGDNA #### [facility] [employer] [address] [place] [id number] Train Brake Operator: King Boone MD Cytologyon 05-03-2020 Cytology (NOTE) INTERPRETATION Endocervical material, (Thin prep vial, Imaging-assisted review): Specimen Adequacy: Satisfactory for evaluation. - Endocervical/transfo rmation zone component present. Descriptive Diagnosis: Negative for intraepithelial lesion or malignancy. Shift in ray suggestive of bacterial vaginosis. Comments: High Risk HPV testing was ordered. Hair Cutter: JAYLIN Higgins(ASCP) Electronically Signed Out ana/05/07/2020 Procedure/Addendum HPV Procedure Report Date Ordered: 05/05/2020 Status: Signed Out Date Complete: 05/05/2020 By: JAYLIN Yoder(ASCP) Date Reported: 05/07/2020 INTERPRETATION James HPV DNA High Risk HPV Sample Thin Prep (Ref Range) HPV Type 16 Not Detected (Not Detected) HPV Type 18 Not Detected (Not Detected) Other High Risk HPV Not Detected (Not Detected) This test amplifies and detects DNA of 14 high-risk HPV types associated with cervical cancer and its precursor lesions (HPV types 16, 18, 31, 33, 35, 39, 45, 51, 52, 56, 58, 59, 66, and 68). Sensitivity may be affected by specimen collection methods, stage of infection, and the presence of interfering substances. Results should be interpreted in conjunction with other available laboratory and clinical data. A negative high-risk HPV result does not exclude the possibility of future cytologic HSIL or underlying CIN2-3 or cancer. This test is intended for medical purposes only and is not valid for the evaluation of suspected sexual abuse or for other forensic purposes. Source: 1: Endocervical material, (Thin prep vial, Imaging-assisted review) Clinical History Z12.4 Encounter for screening for malignant neoplasm of cervix Co-Test: ThinPrep Pap with high risk HPV testing GYNECOLOGIC CYTOLOGY REPORT Patient Name: VY MCKEON [facility] Rec: [id number] Path Number: [id number] [employer] [facility] [address] [place] [id number] [facility] Comment on above: Performed By: #### P PPVP #### [employer] [address] [place] [id number] Train Brake Operator: King Boone MD Vital Signs Date Time Vital Sign Value Performing Clinician Facility 05-29-2023 13:25-0400 Body height 170.18 cm Shayla Caseymond Other [facility] Other 05-29-2023 13:25-0400 Body mass index (BMI) [Ratio] 28.22 kg/m2 Shayla Caseymond Other [facility] Other 05-29-2023 13:25-0400 Body temperature 97.8 [degF] Hsayla Tori Other [facility] Other 05-29-2023 13:25-0400 Body weight 81.74 kg Shayla Tori Other [facility] Other 05-29-2023 13:25-0400 Diastolic blood pressure 79 mm[Hg] Shayla Valle Other [facility] Other 05-29-2023 13:25-0400 Respiratory rate 18 /min Shayla Tori Other [facility] [employer] Other 05-29-2023 13:25-0400 SaO2% (BldA) [Mass fraction] 96 % Shayla Tori Other [facility] [employer] Other 05-29-2023 13:25-0400 Systolic blood pressure 127 mm[Hg] Shayla Tori Other [facility] [employer] Other 03-19-2023 14:37-0400 Diastolic blood pressure 69 mm[Hg] [employer] Shayla Tori Work Phone: [facility] 03-19-2023 14:37-0400 Heart rate 76 /min [employer] Shayla Tori Work Phone: [facility] 03-19-2023 14:37-0400 Respiratory rate 16 /min [employer] Shayla Tori Work Phone: [facility] 03-19-2023 14:37-0400 SaO2% (BldA) [Mass fraction] 96 % [employer] Shayla Tori Work Phone: [facility] 03-19-2023 14:37-0400 Systolic blood pressure 119 mm[Hg] DRIVER MEDIC-C Shayla Tori Work Phone: [facility] 03-19-2023 12:18-0400 Body height 170.18 cm [employer] Shayla Tori Work Phone: [facility] 03-19-2023 12:18-0400 Body temperature 97.9 [degF] DR[employer]C Shayla Tori Work Phone: [facility] 03-19-2023 12:18-0400 Body weight 84.82 kg [employer] Shayla Tori Work Phone: [facility] 02-12-2023 14:30-0400 Body height 170.18 cm Yoel Scovansara Other [facility] Other 02-12-2023 14:30-0400 Body mass index (BMI) [Ratio] 30.54 kg/m2 Yole Scovanner Other [facility] Other 02-12-2023 14:30-0400 Body weight 88.45 kg Yoel Scovanner Other [facility] Other 02-12-2023 14:30-0400 Diastolic blood pressure 80 mm[Hg] Yoel Scovanner Other [facility] Other 02-12-2023 14:30-0400 Systolic blood pressure 127 mm[Hg] Yoel Scovanner Other [facility] Other 02-07-2023 10:00-0400 Body height 170.18 cm Shayla Valle Other [facility] Other 02-07-2023 10:00-0400 Body mass index (BMI) [Ratio] 30.54 kg/m2 Shaylajeovanny Valle Other [facility] Other 02-07-2023 10:00-0400 Body temperature 97.9 [degF] Shayla Tori Other [facility] Other 02-07-2023 10:00-0400 Body weight 88.45 kg Sahyla Tori Other [facility] Other 02-07-2023 10:00-0400 Respiratory rate 18 /min Shayla Valle Other [facility] Other 05-10-2023 10:00-0400 SaO2% (BldA) [Mass fraction] 97 % Shayla Valle Other [facility] Other 05-03-2020 11:41-0400 BMI (Body Mass Index) 24.5 kg/m2 [facility] Work Phone: 05-03-2020 11:41-0400 Body Temperature 96.3 [degF] [facility] Work Phone: 05-03-2020 11:41-0400 Body weight 70.9 kg [facility] Work Phone: 05-03-2020 11:41-0400 BP Diastolic 80 mm[Hg] [facility] Work Phone: 05-03-2020 11:41-0400 BP Systolic 120 mm[Hg] [facility] Work Phone: 05-03-2020 11:41-0400 BSA (Body Surface Area) 1.82 m2 [facility] Work Phone: 05-03-2020 11:41-0400 Height 170.18 cm [facility] Work Phone: 05-03-2020 11:41-0400 Pulse (Heart Rate) 86 /min [facility] Work Phone: 05-03-2020 11:41-0400 Pulse Oximetry 93 % [facility] Work Phone: 05-03-2020 11:41-0400 Respiratory Rate 18 /min [facility] Work Phone: 04-08-2020 08:37-0400 BMI (Body Mass Index) 24.3 kg/m2 [facility] Work Phone: 04-08-2020 08:37-0400 Body Temperature 99 [degF] [facility] Work Phone: 04-08-2020 08:37-0400 Body weight 70.4 kg [facility] Work Phone: 04-08-2020 08:37-0400 BP Diastolic 80 mm[Hg] [facility] Work Phone: 04-08-2020 08:37-0400 BP Systolic 110 mm[Hg] [facility] Work Phone: 04-08-2020 08:37-0400 BSA (Body Surface Area) 1.82 m2 [facility] Work Phone: 04-08-2020 08:37-0400 Height 170.18 cm [facility] Work Phone: 04-08-2020 08:37-0400 Pulse (Heart Rate) 82 /min [facility] Work Phone: 04-08-2020 08:37-0400 Pulse Oximetry 98 % [facility] Work Phone: 04-08-2020 08:37-0400 Respiratory Rate 18 /min [facility] Work Phone: 03-29-2020 09:52-0400 Body height 170.18 cm [facility] Work Phone: [facility] Work Phone: Comment on above: self 03-29-2020 09:52-0400 Body mass index (BMI) [Ratio] 23.5 kg/m2 [facility] Work Phone: [facility] Work Phone: Comment on above: self 03-29-2020 09:52-0400 Body surface area Derived from formula 1.79 m2 [facility] Work Phone: [facility] Work Phone: Comment on above: self 03-29-2020 09:52-0400 Body weight 68.04 kg [facility] Work Phone: [facility] Work Phone: Comment on above: self 10-14-2019 08:30-0500 BMI (Body Mass Index) 24.1 kg/m2 [facility] Work Phone: 10-14-2019 08:30-0500 Body Temperature 98.5 [degF] [facility] Work Phone: 10-14-2019 08:30-0500 Body weight 69.76 kg [facility] Work Phone: 10-14-2019 08:30-0500 BP Diastolic 78 mm[Hg] [facility] Work Phone: 10-14-2019 08:30-0500 BP Systolic 132 mm[Hg] [facility] Work Phone: 10-14-2019 08:30-0500 BSA (Body Surface Area) 1.81 m2 [facility] Work Phone: 10-14-2019 08:30-0500 Height 170.18 cm [facility] Work Phone: 10-14-2019 08:30-0500 Pulse (Heart Rate) 88 /min [facility] Work Phone: 10-14-2019 08:30-0500 Pulse Oximetry 98 % [facility] Work Phone: 10-14-2019 08:30-0500 Respiratory Rate 18 /min [facility] Work Phone: 10-14-2019 08:30-0500 SaO2% (BldA) [Mass fraction] 98 % [facility] Work Phone: [facility] Work Phone: 09-04-2019 13:52-0500 BMI (Body Mass Index) 22.9 kg/m2 [facility] Work Phone: 09-04-2019 13:52-0500 Body Temperature 98.5 [degF] [facility] Work Phone: 09-04-2019 13:52-0500 Body weight 66.23 kg [facility] Work Phone: 09-04-2019 13:52-0500 BP Diastolic 90 mm[Hg] [facility] Work Phone: 09-04-2019 13:52-0500 BP Systolic 122 mm[Hg] [facility] Work Phone: 09-04-2019 13:52-0500 BSA (Body Surface Area) 1.77 m2 [facility] Work Phone: 09-04-2019 13:52-0500 Height 170.18 cm [facility] Work Phone: 09-04-2019 13:52-0500 Pulse (Heart Rate) 98 /min [facility] Work Phone: 09-04-2019 13:52-0500 Pulse Oximetry 98 % [facility] Work Phone: 09-04-2019 13:52-0500 Respiratory Rate 18 /min [facility] Work Phone: 09-04-2019 13:52-0500 SaO2% (BldA) [Mass fraction] 98 % [facility] Work Phone: [facility] Work Phone: 08-19-2019 09:32-0500 BMI (Body Mass Index) 23.2 kg/m2 [facility] Work Phone: 08-19-2019 09:32-0500 Body Temperature 98 [degF] Sally [facility] Work Phone: 08-19-2019 09:32-0500 Body weight 67.31 kg [facility] Work Phone: 08-19-2019 09:32-0500 BP Diastolic 80 mm[Hg] [facility] Work Phone: 08-19-2019 09:32-0500 BP Systolic 120 mm[Hg] [facility] Work Phone: 08-19-2019 09:32-0500 BSA (Body Surface Area) 1.78 m2 [facility] Work Phone: 08-19-2019 09:32-0500 Height 170.18 cm [facility] Work Phone: 08-19-2019 09:32-0500 Pulse (Heart Rate) 90 /min [facility] Work Phone: 08-19-2019 09:32-0500 Pulse Oximetry 98 % [facility] Work Phone: 08-19-2019 09:32-0500 Respiratory Rate 18 /min [facility] Work Phone: 08-19-2019 09:32-0500 SaO2% (BldA) [Mass fraction] 98 % [facility] Work Phone: [facility] Work Phone: 07-28-2019 11:31-0400 BMI (Body Mass Index) 22.7 kg/m2 [facility] Work Phone: 07-28-2019 11:31-0400 Body Temperature 98.8 [degF] [facility] Work Phone: 07-28-2019 11:31-0400 Body weight 65.77 kg Sally [facility] Work Phone: 07-28-2019 11:31-0400 BP Diastolic 84 mm[Hg] [facility] Work Phone: 07-28-2019 11:31-0400 BP Systolic 132 mm[Hg] [facility] Work Phone: 07-28-2019 11:31-0400 BSA (Body Surface Area) 1.76 m2 [facility] Work Phone: 07-28-2019 11:31-0400 Height 170.18 cm [facility] Work Phone: 07-28-2019 11:31-0400 Pulse (Heart Rate) 65 /min [facility] Work Phone: 07-28-2019 11:31-0400 Pulse Oximetry 97 % [facility] Work Phone: 07-28-2019 11:31-0400 Respiratory Rate 18 /min [facility] Work Phone: 07-28-2019 11:31-0400 SaO2% (BldA) [Mass fraction] 97 % [facility] Work Phone: [facility] Work Phone: Encounters Encounter Date Encounter Type Care Provider Facility Start: 08-30-2023 End: 08-30-2023 ambulatory Not Available Start: 05-29-2023 End: 05-29-2023 ambulatory Shayla Valle Other [facility] Other Start: 05-29-2023 Office outpatient vi sit 15 minutes Sh[facility] Start: 03-19-2023 End: 03-19-2023 ambulatory NON STAFF Facility:[facility] Start: 03-19-2023 End: 03-19-2023 Admission to same day surgery center DRIVER MEDIC-C Shayla Valle Work Phone: [facility] Work Phone: Start: 03-19-2023 End: 03-19-2023 ambulatory NON STAFF [facility] Work Phone: Start: 02-12-2023 End: 02-12-2023 ambulatory Yoel Jarrett Other [facility] Other Start: 02-12-2023 Office outpatient ne w 30 minutes Yoel Jarrett [facility] Start: 02-09-2023 End: 02-10-2023 ambulatory INTERVENTION ANALYST VITO JARREDAntonJUVENAL Facility:[facility] Start: 02-07-2023 Office outpatient ne w 20 minutes Shayla Valle [facility] Start: 02-07-2023 End: 02-07-2023 ambulatory Shayla Valle [facility] [employer] Other Start: 02-07-2023 End: 02-07-2023 Patient encounter procedure DRIVER MEDIC-C Shayla Tori Work Phone: [facility] Work Phone: Start: 12-27-2022 ambulatory PRADEEP COULTER Facil ity:[facility] Start: 12-16-2022 End: 12-17-2022 ambulatory PRADEEP COULTER Facility:[facility] Start: 07-04-2022 End: 07-05-[address] ELIAZAR CASTANEDA . Facility:[facility] Start: 06-08-2022 End: 07-01-[address] ELIAZAR CASTANEDA . Facility:[facility] Start: 05-23-2022 End: 05-23-[address] ELIAZAR CASTANEDA . Facility:[facility] Start: 05-22-2022 Encounter for preprocedural laboratory examination DR ELIAZAR CASTANEDA . [facility] Start: 05-19-2022 End: 05-20-[address] ELIAZAR CASTANEDA . Facility:[facility] Start: 05-19-2022 End: 05-20-2022 Encounter for preprocedural laboratory examination DR ELIAZAR CASTANEDA . Facility:[facility] Start: 05-18-2022 End: 05-19-[address] ELIAZAR CASTANEDA . Facility:[facility] Start: 05-03-2022 End: 05-04-[address] ELIAZAR CASTANEDA . Facility:[facility] Start: 05-03-2020 End: 05-03-2020 ambulatory Candace Grossman Work Phone: [facility] Work Phone: Start: 05-03-2020 End: 05-04-2020 Patient encounter procedure CANDACE GROSSMAN [facility] Start: 05-03-2020 End: 05-03-2020 Subsequent hospital visit by physician ARMANI SOLITARIO [facility] Start: 04-08-2020 End: 04-08-2020 ambulatory Linnea Escobar Work Phone: [facility] Work Phone: Start: 03-29-2020 End: 03-29-2020 General Emilee Sanford Work Phone: [facility] Work Phone: Start: 03-29-2020 End: 03-29-2020 Telemedicine consultation with patient Candace Grossman Work Phone: [facility] Work Phone: Start: 01-08-2020 End: 01-08-2020 Telemedicine consultation with patient Candace Grossman Work Phone: [facility] Work Phone: Start: 12-30-2019 End: 12-30-2019 Patient encounter procedure Emilee Sanford Work Phone: [facility] Work Phone: Start: 12-30-2019 End: 12-30-2019 Telemedicine consultation with patient Candace Grossman Work Phone: [facility] Work Phone: Start: 10-14-2019 End: 10-14-2019 Established patient Bobbi Isaiah Work Phone: [facility] Work Phone: Start: 09-04-2019 End: 09-04-2019 Established patient Bobbi Colon Work Phone: [facility] Work Phone: Start: 08-19-2019 End: 08-19-2019 Nursing evaluation of patient and report Candace Grossman Work Phone: [facility] Work Phone: Start: 07-28-2019 End: 07-28-2019 Established patient Bobbi Colon Work Phone: [facility] Work Phone: Start: 07-28-2019 End: 07-28-2019 New patient Candace Grossman Work Phone: [facility] Work Phone: Start: 08-13-2017 End: 08-14-2017 Ambulatory [facility] Facility[place] Procedures Date Procedure Procedure Detail Performing Clinician Start: 03-19-2023 Esophagogastroduodenoscopy [employer] Shayla Valle Work Phone: Start: 02-07-2023 X-ray of right knee DRIVER MEDIC- C Shayla Valle Work Phone: Start: 05-03-2020 Obtaining screen pap smear Candace Grossman Work Phone: Start: 05-03-2020 Iaad ia chlamydia trachomatis CANDACE GROSSMAN Start: 05-03-2020 Iadna nirmala specie s direct probe tq CANDACE GROSSMAN Start: 05-03-2020 Iadna nirmala specie s direct probe tq Candace Grossman Work Phone: Start: 04-08-2020 Diast bp 80-89 mm hg Eva Escobar Work Phone: Start: 04-08-2020 Etonogestrel implant system Linnea Escobar Work Phone: Start: 04-08-2020 Insj non-biodegradab le drug delivery implant Linnea Escobar Work Phone: Start: 04-08-2020 Lidocaine 2% with Ep inephrine INJ (Xylocaine W/Epi) Linnea Escobar Work Phone: Start: 04-08-2020 Syst bp lt 130 mm hg Ka ra Escobar Work Phone: Start: 04-08-2020 Therapeutic prophyla ctic/dx injection subq/im Linnea Escobar Work Phone: Start: 03-29-2020 no recent change in medical history Sally Morejon INTERVENTION ANALYST Work Phone: Start: 03-29-2020 Psychotherapy w/howie ent 30 minutes Emilee Sanford Work Phone: Start: 01-08-2020 Patient gave verbal consent for telehealth Sally Morejon INTERVENTION ANALYST Work Phone: Start: 10-14-2019 Diast bp <80 mm hg Levi Grossman Work Phone: Start: 10-14-2019 Psychotherapy w/howie ent 30 minutes Bobbi Colon Work Phone: Start: 10-14-2019 Syst bp ge 130 - 139mm hg Candace Houstonen Work Phone: Start: 09-04-2019 Diast bp >/= 90 mm hg A max Houstonen Work Phone: Start: 09-04-2019 Psychotherapy w/howie ent 30 minutes Bobbi Colon Work Phone: Start: 09-04-2019 Pt-focused hlth risk assmt score doc stnd instrm Candacehalley Houstnoen Work Phone: Start: 09-04-2019 Syst bp lt 130 mm hg monicodarshan Houstonen Work Phone: Start: 08-19-2019 Urine test visual color cmprsn meths Candace Grossman Work Phone: Start: 07-28-2019 Alcohol consumption screening Audit Alcohol Use Disorders Identification Test ___(0-40) Candacehalley Grossman INTERVENTION ANALYST Work Phone: Start: 07-28-2019 ANXIETY DISORDER NOS Ca ssie Jean-Pierre Start: 07-28-2019 ASTHMA Sally Tab er Start: 07-28-2019 DEPRESSION Sally Tab er Start: 07-28-2019 Diast bp 80-89 mm hg monico Grossman Work Phone: Start: 07-28-2019 History of influenza vaccination Sally Jean-Pierre Start: 07-28-2019 PSYCHIATRIC DISORDERS C gaviota Fraustoer Start: 07-28-2019 Psychotherapy w/howie ent 30 minutes Bobbi Isaiah Work Phone: Start: 07-28-2019 Pt-focused hlth risk assmt score doc stnd instrm Candace Grossman Work Phone: Start: 07-28-2019 Removal non-biodegra dable drug delivery implant Candace Grossman Work Phone: Start: 07-28-2019 RESPIRATORY DISORDERS C gaviota Morejon Start: 07-28-2019 Surgical procedure Chela Morejon Start: 07-28-2019 Syst bp ge 130 - 139mm hg Candace Grossman Work Phone: NEGATED: Highlighted row has not occurred!Start: 04-08-2020 currently nursing Sally Morejon NEGATED: Highlighted row has not occurred!Start: 07-28-2019 currently Sally Morejon Plan of Treatment Date Care Activity Detail Author Start: 03-19-2023 [facility] Start: 06-02-2020 Health Par [facility] Work Phone: Start: 06-01-2020 Influenza vaccination Flu vaccine (# 1) [facility] [place] Start: 12-02-2019 Dental Comp Exam [facility] Work Phone: Start: 11-17-2019 [facility] [place] [facility] Work [facility]: Start: 10-21-2019 Lipid 1996 panel [facility] Work Phone: Start: 10-14-2019 [place] [facility] Work Phone: Comment on above: Note: Please make a referral to: Start: 09-16-2019 Dental Comp Exam [facility] Work Phone: Start: 08-25-2019 Medical Establ ished Patient [facility] Work Phone: Start: 08-20-2019 Urine Pregnanc y Test, In House Health [facility] Work Phone: Start: 2009 Screening for malign ant neoplasm of cervix Cervical cancer screen [place], [place] Start: 2007 DTaP/Tdap/Td vaccine (1 - Tdap) DTaP/Tdap/Td vaccine (1 - Tdap) [place], [place] Start: 2003 HIV screening HIV screen [place], [place] Start: 1989 Varicella vaccine (1 of 2 - 2-dose childhood series) Varicella vaccine (1 of 2 - 2-dose childhood series) [place], [place] End: 05-03-2020 C.trachomatis N.gonorrhoeae DNA, Thin Prep C.trachomatis N.gonorrhoeae DNA, Thin Prep Microbiology Routine Once for 1 Occurrences starting 05/03/2020 until 05/03/2020 [place], [place] Comment on above: Once for 1 Occurrenc es starting 05/03/2020 until 05/03/2020 C.trachomatis N.gonorrhoeae DNA, Thin Prep C.trachomatis N.gonorrhoeae DNA, Thin Prep Microbiology Routine 05/03/2020 7:32 AM EDT [place], [place] Patient Education Hiatal Hernia (DC) [facility] Work Phone: Payers Date Payer Category Payer Self-pay 2019 Unknown 1 - [employer] [id number] 2017 Unknown [id number] 1988 Unknown [id number] 2.16.84 [id number] 1988 Unknown [id number] 2.16.84 [id number] 1988 Unknown [id number] 2.16.84 [id number] 1988 Unknown [id number] 2.16.84 [id number] 1988 Unknown [id number] 2.16.84 [id number] 1988 Unknown [id number] 2.16.84 [id number] 1988 Unknown [id number] 2.16.84 [id number] 1988 Unknown [id number] 2.16.84 [id number] 1988 Unknown [id number] 2.16.84 [id number] 1988 Unknown [id number] 2.16.840 .[id number] 1959 Medicaid [id number] 2. [id number] Self-pay [id number] 2.16.840 .[id number] Unknown [employer] [id number] Unknown [id number] 2.16.8 [id number] Unknown [id number] 2.16.8 [id number] Social History Date Type Detail Facility Assertion Alcohol consumpt ion screening (procedure) [facility] Work Phone: Assertion [facility] Work Phone: Assertion Finding of alcoh ol intake (finding) [facility] Work Phone: Assertion Sexually active (finding) [facility] Work Phone: Assertion Gender identity finding (finding) [facility] Work Phone: Assertion Finding of sexua l orientation (finding) [facility] Work Phone: Tobacco smoking status Unknown if ever smoked [facility] Work Phone: Assertion Emotional stress (finding) [facility] Work Phone: Sex Assigned At Not on file [facility] [place] [place], [place] Assertion Contraception (finding) [facility] Work Phone: Sex Assigned At Sex Assigned At [facility] [employer] Other Start: 1988 Sex Assigned At Female [facility] NEGATED: Highlighted row Assertion He has not had 5 or more drinks in a day within the past year. [facility] Work Phone: NEGATED: Highlighted row Assertion Exposure to pollution (event) [facility] Work Phone: NEGATED: Highlighted row Assertion Tobacco user (finding) [facility] Work Phone: NEGATED: Highlighted row Assertion Current drinker of alcohol (finding) [facility] Work Phone: NEGATED: Highlighted row Assertion Finding relating to drug misuse behavior (finding) [facility] Work Phone: Goals Date Patient Goal Desired Activity /State Mental Status Date Assessment Result Facility Cognitive function 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 Use the nystatin mouthwash as prescribed, swish and swallow. Follow-up with your family physician if no improvement in 2 to [address] [facility] [employer] Other 06-19-[address] [facility]05-15-2023 Evaluation note* Encounter Date Diagnosis Assessment Notes Treatment Notes Treatment Clinical Notes January, GERD (gastroesophageal reflux disease) (ICD-10 - K21.9) patient reports that she has tried omeprazole, nexium and pantoprazole with no relief. Patient describes the following alarm symptoms vomiting and dysphagia to solids. Patient also describes following dyspeptic complaints of epigastric pain, nausea, esophageal burning and lack of appetite. She is a canidate for EGD and she is in agreement with having this done, this will be scheduled today. EGD instrution given to patient. Also discussed with patient his lifestyle factors that can help improve her reflux symptoms such as finishing dinner 2 to 3 hours before bedtime to prevent nighttime symptoms. Raising head of the bed and utilizing plenty of liquids also avoiding trigger foods such as caffeine, chocolate, spicy and acidic foods. Patient educated on the importance of PPI optimization [facility] Other 05-10-2023 Evaluation note* Encounter Date Diagnosis Assessment Notes Treatment Notes Treatment Clinical Notes January, Acute pain of right knee (ICD-10 - M25.561) January, Contusion of right knee, initial encounter (ICD-10 - S80.01XA) Drink plenty fluids, get plenty of rest. Wear the Kwaku wrap to your knee for comfort and compression. Ice and elevate your leg 2-3 times a day. Take ibuprofen, 600 mg up to 3 times a day with food for pain and swelling. Use the crutches for 2 to 3 days For ambulation. Follow-up with orthopedics if no improvement in 5 to 7 days. Off work today and tomorrow. January, Other Contusion mater ial was printed [employer] Other 08-23-2022 NoteOPERATIVE NOTE OPERATION DATE: 05/23/2022 PROCEDURE: Suction D AND C. PREOPERATIVE DIAGNOSIS: Missed . POSTOPERATIVE DIAGNOSIS: Missed . ANESTHESIA: General. SURGEON: Eliazar Castaneda D.O. GOVERNMENT CONTRACTS MANAGER: None. FINDING: Products of conception. SPECIMEN: Products of conception. URINE OUTPUT: Yellow and clear. BLOOD LOSS: 20 mL. PROCEDURE: The patient was taken back to the OR where she was given general anesthesia without difficulty. She was then placed in dorsal lithotomy position, prepped and draped in the normal sterile fashion. A weighted speculum was placed in the patient's vagina and the anterior lip of the cervix was identified and grasped with a single-tooth tenaculum. The patient was then gently dilated using Hegar dilators after we had sounded roughly to 9 cm. The suction curette was then tested. The suction curette was then placed in the patient's uterus and products of conception were removed using an 8-Lithuanian suction curette. Excellent hemostasis was noted. The patient tolerated the procedure well. Sponge, lap, and needle counts were correct x 2. All instruments were then removed from the patient's vagina. The patient was taken to the Recovery Room in stable condition. [facility] Includes: Assessments for all patient encounters Findings Encounter Date [facility] 03/29/2020 Generalized anxiety disorder [facility] 03/29/2020 Dysthymic disorder Established Patie nt with Bobbi Colon [facility] 10/14/2019 Generalized anxiety disorder Establis hed Patient with Bobbi Colon [facility] 10/14/2019 Z68.24 - Body mass index (BM I) 24.0-24.9 adult Medical Established Patient with Candace Grossman [facility] 10/14/2019 F34.1 - Dysthymic disorder Establishe d Patient with Bobbi Colon [facility] 09/04/2019 Generalized anxiety disorder Establis hed Patient with Bobbi Colon [facility] 09/04/2019 Body mass index Medical Established Patient with Candace Grossman [employer] [facility] [facility] 09/04/2019 Diabetes Risk Test Score was 0 score 09/04/2019 Medical Established Patient with Candace Grossman [employer] 09/04/2019 Body mass index Nurse Visit with Candace Grossman P 08/19/2019 Diabetes Risk Test Score was 0 score 08/19/2019 Nurse Visit with Candace Grossman [facility] [facility] 08/19/2019 Generalized anxiety disorder Establis hed Patient with Bobbi Colon [facility] 07/28/2019 Severe recurrent major depre 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 features Established Patient with Bobbi Colon [facility] 07/28/2019 AUDIT alcohol use disorders identification test was six 07/28/2019 Medical New Patient with Candace Grossman [employer] 07/28/2019 Diabetes Risk Test Score was 0 score 07/28/2019 Medical New Patient with Candace Grossman [employer] 07/28/2019 ZAN-7 score was 21 07/28/2019 Medical Ne w Patient with Candace Grossman [employer] 07/28/2019 PHQ-9: total score was 21 07/28/2019 Med ical New Patient with Candace Grossman [employer] 07/28/2019 Z68.22 - Body mass index (BM I) 22.0-22.9 adult Medical New Patient with Candace Grossman INTERVENTION ANALYST 07/28/2019 Health [facility] Work Phone: Evaluation noteNo assessment information available [facility] Work Phone: Evaluation note* Diagnosis Onset Date Resolution Status GERD (gastroesophageal reflux disease) acute [facility] Work Phone: Hisdtby general Narrative - Reported* Type Description Date Medical History anxiety Medical History depression Medical History ADHD Surgical History D&C [facility] [employer] Other Hiskhjg general Narrative - Reported* Type Description Date Medical History anxiety Medical History depression Medical History ADHD Surgical History D&C 2021 [facility] [employer] Other History of Present illness Narrative History of Present Illness not supported for this document type No [facility] of [facility] Hospital Discharge instructions Additional Instructions DISCHARGE INSTRUCTIONS FOR ENDOSCOPY FOR COLONOSCOPY: -Expect a gassy or full feeling after a colonoscopy. Report any NEW abdominal pain or vomiting. -Watch for rectal bleeding if you have a polyp removed. You may have oozing, but notify the doctor if you pass clots. -Avoid aspirin for 2 days IF a polyp is removed. -It is important to keep your appointments for follow up examinations because polyps can grow back. FOR SOLANO/EGD/ERCP/PEG: -Your throat may feel sore today from the scope that the doctor passed through your throat to visualize your stomach. Take a throat lozenge or suck on ice to ease the discomfort. -Do NOT smoke. -You may notice some streaks of blood in your sputum if the doctor has taken a biopsy. Notify the doctor if you cough up large amounts of blood. -Expect a gassy or full feeling after esophagoscopy. Report any persistent pain or vomiting. -Take it easy today. You need not stay in bed, but avoid strenuous activities such as jogging. FOR SEDATION FOR 24 HOURS: -NO driving -Do NOT operate machinery such as power tools, lawn mowers, snow blowers, sewing machines, etc. -Avoid alcoholic beverages and drugs for allergies, nerves, or sleep. -Do NOT stay alone. Do NOT leave your child unattended. -Do NOT make important personal or business decisions or sign any legal documents. -Eat solid foods and drink liquids in smaller amounts than usual until normal appetite returns. If you should experience an upset stomach, liquids high in sugar content (soda, Jean-Pierre-aid, non-acid juices) are recommended. -You can resume normal activities tomorrow. FOLLOW UP Please call the office and make a follow up appointment to see me in 6-8 weeks. Omeprazole 40 mg p.o. before breakfast and supper -Notify the doctor if you have any problems. -Office number [phone] Work Phone: Instructions Instructions not supported for this document type No Instructions RecordedHealth [facility] Work Phone: patient problem outcome Narrative Includes: Evaluations & Outcomes for active Goals No Outcomes RecordedHealth [facility] Work Phone: reason for referral (narrative)No Reason for Referral RecordedHealth [facility] Work Phone: reason for visit NarrativeUNCONTROLLED GERD//REFERRAL FROM [employer] Other Review of systems Narrative - Reported Review of Systems not supported for this document type No Review of Systems RecordedHealth [facility] Work Phone: Summary Purpose Family History No Family History Records Found Description Last Updated Paternal history of cardiovascular disor thuy 07/28/2019 Relationship Condition Age at Onset Recorded Date/T pia Not Specified Anxiety Unknown Chronic obstructive pulmonary disease Unk nown Advance Directives No Advanced Directives Records FoundDocuments on File Type Date Recorded 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 Advance Directives and Living Will Power of Senior Hr Generalist Advance Directive Response Recorded Date/ Time Advance Directives No February 07 3 3:12pm Reason for Referral No Reason for Referral RecordedNo Reason for Referral RecordedNo Reason for Referral RecordedNo Reason for Referral RecordedNo Reason for Referral Recorded No Reason for Referral RecordedNo Reason for Referral RecordedNo Reason for Referral RecordedNo Reason for Referral RecordedNo Reason for Referral Recorded No Reason for Referral RecordedNo InformationNo InformationNo Information Assessments Findings Encounter Date [facility] Patient with Bob[facility] Colon [facility] 07/28/2019 Severe recurrent major depre 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 features BH Established Patient with Bobbi Colon [facility] 07/28/2019 AUDIT alcohol use disorders identification test was six 07/28/2019 Medical New Patient with Candace Grossman [employer] 07/28/2019 Diabetes Risk Test Score was 0 score 07/28/2019 Medical New Patient with Candace Grossman [employer] 07/28/2019 ZAN-7 score was 21 07/28/2019 Medical Ne w Patient with Candace Grossman [employer] 07/28/2019 PHQ-9: total score was 21 07/28/2019 Med ical New Patient with Candace Grossman [employer] 07/28/2019 Z68.22 - Body mass index (BM I) 22.0-22.9 adult Medical New Patient with Candace Grossman [employer] 07/28/2019 Findings Encounter Date F34.1 - Dysthymic disorder Establishe d Patient with Bobbi Colon [facility] 09/04/2019 Generalized anxiety disorder BH Establis hed Patient with Bobbi Colon [facility] 09/04/2019 Body mass index Medical Established Patient with Candace Grossman [employer] 09/04/2019 Diabetes Risk Test Score was 0 score 09/04/2019 Medical Established Patient with Candace Grossman [employer] 09/04/2019 Body mass index Nurse Visit with Candace Grossman P 08/19/2019 Diabetes Risk Test Score was 0 score 08/19/2019 Nurse Visit with Candace Dianelys [employer] 08/19/2019 Generalized anxiety disorder BH Establis hed Patient with Bobbi Colon [facility] 07/28/2019 Severe recurrent major depre 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 features BH Established Patient with Bobbi Colon [facility] 07/28/2019 AUDIT alcohol use disorders identification test was six 07/28/2019 Medical New Patient with Candace Grossman [employer] 07/28/2019 Diabetes Risk Test Score was 0 score 07/28/2019 Medical New Patient with Candace Grossman [employer] 07/28/2019 ZAN-7 score was 21 07/28/2019 Medical Ne w Patient with Candace Grossman [employer] 07/28/2019 PHQ-9: total score was 21 07/28/2019 Med ical New Patient with Candace Grossman [employer] 07/28/2019 Z68.22 - Body mass index (BM I) 22.0-22.9 adult Medical New Patient with Candace Grossman [employer] 07/28/2019 Findings Encounter Date Dysthymic disorder Established Patie nt with Bobbi Colon [facility] 10/14/2019 Generalized anxiety disorder BH Establis hed Patient with Bobbi Colon [facility] 10/14/2019 Z68.24 - Body mass index (BM I) 24.0-24.9 adult Medical Established Patient with Candace Grossman INTERVENTION ANALYST 10/14/2019 F34.1 - Dysthymic disorder BH Establishe d Patient with Bobbi Colon [facility] 09/04/2019 Generalized anxiety disorder BH Establis hed Patient with Bobbi Colon [facility] 09/04/2019 Body mass index Medical Established Patient with Candace Grossman [employer] 09/04/2019 Diabetes Risk Test Score was 0 score 09/04/2019 Medical Established Patient with Candace Grossman [employer] 09/04/2019 Body mass index Nurse Visit with Candace Dianelys P 08/19/2019 Diabetes Risk Test Score was 0 score 08/19/2019 Nurse Visit with Candace Dianelys [employer] 08/19/2019 Generalized anxiety disorder BH Establis hed Patient with Bobbi Colon [facility] 07/28/2019 Severe recurrent major depre 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 features Established Patient with Bobbi Colon [facility] 07/28/2019 AUDIT alcohol use disorders identification test was six 07/28/2019 Medical New Patient with Candace Grossman [employer] 07/28/2019 Diabetes Risk Test Score was 0 score 07/28/2019 Medical New Patient with Candace Grossman [employer] 07/28/2019 ZAN-7 score was 21 07/28/2019 Medical Ne w Patient with Candace Grossman [employer] 07/28/2019 PHQ-9: total score was 21 07/28/2019 Med ical New Patient with Candace Grossman [employer] 07/28/2019 Z68.22 - Body mass index (BM I) 22.0-22.9 adult Medical New Patient with Candace Grossman [employer] 07/28/2019 Findings Encounter Date Visit for: contraceptive management [facility] with Linnea Luz [employer] [facility] 04/08/2020 Z68.24 - Body mass index (BM I) 24.0-24.9, adult [facility] with Linnea Luz INTERVENTION ANALYST 04/08/2020 Depressive disorder [facility] with Emilee Short [facility] 03/29/2020 Generalized anxiety disorder [facility] 03/29/2020 Dysthymic disorder Established Patie nt with Bobbi Colon [facility] 10/14/2019 Generalized anxiety disorder BH Establis hed Patient with Bobbi Colon [facility] 10/14/2019 Z68.24 - Body mass index (BM I) 24.0-24.9 adult Medical Established Patient with Candace Dianelys INTERVENTION ANALYST 10/14/2019 F34.1 - Dysthymic disorder BH Establishe d Patient with Bobbi Colon [facility] 09/04/2019 Generalized anxiety disorder BH Establis hed Patient with Bobbi Colon [facility] 09/04/2019 Body mass index Medical Established Patient with Candace Dianelys [employer] 09/04/2019 Diabetes Risk Test Score was 0 score 09/04/2019 Medical Established Patient with Candace Dianelys INTERVENTION ANALYST 09/04/2019 Body mass index Nurse Visit with Candace Grossman CN P 08/19/2019 Diabetes Risk Test Score was 0 score 08/19/2019 Nurse Visit with Candace Grossman [employer] 08/19/2019 Generalized anxiety disorder Establis hed Patient with Bobbileif Colon [facility] 07/28/2019 Severe recurrent major depre 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 features Established Patient with Bobbi Colon [facility] 07/28/2019 AUDIT alcohol use disorders identification test was six 07/28/2019 Medical New Patient with Candace Dianelys [employer] 07/28/2019 Diabetes Risk Test Score was 0 score 07/28/2019 Medical New Patient with Candace Dianelys [employer] 07/28/2019 ZAN-7 score was 21 07/28/2019 Medical Ne w Patient with Candace Dianelys [employer] 07/28/2019 PHQ-9: total score was 21 07/28/2019 Med ical New Patient with Candace Dianelys [employer] 07/28/2019 Z68.22 - Body mass index (BM I) 22.0-22.9 adult Medical New Patient with Candace Dianelys INTERVENTION ANALYST 07/28/2019 Findings Encounter Date Body mass index Nurse Visit with Candace Grossman CN P 08/19/2019 Diabetes Risk Test Score was 0 score 08/19/2019 Nurse Visit with Candace Grossman [employer] 08/19/2019 Generalized anxiety disorder Establis hed Patient with Bobbi Colon [facility] 07/28/2019 Severe recurrent major depre 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 features Established Patient with Bobbi Colon [facility] 07/28/2019 AUDIT alcohol use disorders identification test was six 07/28/2019 Medical New Patient with Candace Dianelys [employer] 07/28/2019 Diabetes Risk Test Score was 0 score 07/28/2019 Medical New Patient with Candace Grossman [employer] 07/28/2019 ZAN-7 score was 21 07/28/2019 Medical Ne w Patient with Candace Grossman INTERVENTION ANALYST 07/28/2019 PHQ-9: total score was 21 07/28/2019 Med ical New Patient with Candace Dianelys [employer] 07/28/2019 Z68.22 - Body mass index (BM I) 22.0-22.9 adult Medical New Patient with Candace Grossman INTERVENTION ANALYST 07/28/2019 Findings Encounter Date Overweight [facility] with Candace Grossman [employer] 05/03/2020 Z68.24 - Body mass index (BM I) 24.0-24.9, adult [facility] with Candace Grossman [employer] 05/03/2020 Visit for: contraceptive management [facility] with Linnea Samaniegole [employer] 04/08/2020 Z68.24 - Body mass index (BM I) 24.0-24.9, adult [facility] with Linnea Luz [employer] 04/08/2020 Depressive disorder Telebehavioral He [facility] with Emilee Short [facility] 03/29/2020 Generalized anxiety disorder [facility] Emilee Short [facility] 03/29/2020 Dysthymic disorder Established Patie nt with Bobbi Colon [facility] 10/14/2019 Generalized anxiety disorder Establis hed Patient with Bobbi Colon [facility] 10/14/2019 Z68.24 - Body mass index (BM I) 24.0-24.9 adult Medical Established Patient with Candace Dianelys [employer] 10/14/2019 F34.1 - Dysthymic disorder BH Establishe d Patient with Bobbi Colon [facility] 09/04/2019 Generalized anxiety disorder BH Establis hed Patient with Bobbi Colon [facility] 09/04/2019 Body mass index Medical Established Patient with Candace Dianelys [employer] 09/04/2019 Diabetes Risk Test Score was 0 score 09/04/2019 Medical Established Patient with Candace Dianelys [employer] 09/04/2019 Body mass index Nurse Visit with Candace Grossman P 08/19/2019 Diabetes Risk Test Score was 0 score 08/19/2019 Nurse Visit with Candace Grossman [employer] 08/19/2019 Generalized anxiety disorder BH Establis hed Patient with Bobbi Colon [facility] 07/28/2019 Severe recurrent major depre 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 features BH Established Patient with Bobbi Colon [facility] 07/28/2019 AUDIT alcohol use disorders identification test was six 07/28/2019 Medical New Patient with Candace Grossman INTERVENTION ANALYST 07/28/2019 Diabetes Risk Test Score was 0 score 07/28/2019 Medical New Patient with Candace Grossman INTERVENTION ANALYST 07/28/2019 ZAN-7 score was 21 07/28/2019 Medical Ne w Patient with Candace Grossman INTERVENTION ANALYST 07/28/2019 PHQ-9: total score was 21 07/28/2019 Med ical New Patient with Candace Grossman INTERVENTION ANALYST 07/28/2019 Z68.22 - Body mass index (BM I) 22.0-22.9 adult Medical New Patient with Candace Grossman INTERVENTION ANALYST 07/28/2019 Instructions Instructions not supported for this document type No Instructions Recorded Instructions not supported for this document type No Instructions Recorded Instructions not supported for this document type No Instructions Recorded Instructions not supported for this document type No Instructions Recorded Instructions not supported for this document type No Instructions Recorded Instructions not supported for this document type No Instructions Recorded Instructions not supported for this document type No Instructions Recorded Instructions not supported for this document type No Instructions Recorded Instructions not supported for this document type No Instructions Recorded Instructions not supported for this document type No Instructions Recorded Instructions not supported for this document type No Instructions Recorded History of Present Illness History of Present Illness not supported for this document type No History of Present Illness Recorded History of Present Illness not supported for this document type No History of Present Illness Recorded History of Present Illness not supported for this document type No History of Present Illness Recorded History of Present Illness not supported for this document type No History of Present Illness Recorded History of Present Illness not supported for this document type No History of Present Illness Recorded History of Present Illness not supported for this document type No History of Present Illness Recorded History of Present Illness not supported for this document type No History of Present Illness Recorded History of Present Illness not supported for this document type No History of Present Illness Recorded History of Present Illness not supported for this document type No History of Present Illness Recorded History of Present Illness not supported for this document type No History of Present Illness Recorded History of Present Illness not supported for this document type No History of Present Illness Recorded Review of System Review of Systems not supported for this document type No Review of Systems Recorded Review of Systems not supported for this document type No Review of Systems Recorded Review of Systems not supported for this document type No Review of Systems Recorded Review of Systems not supported for this document type No Review of Systems Recorded Review of Systems not supported for this document type No Review of Systems Recorded Review of Systems not supported for this document type No Review of Systems Recorded Review of Systems not supported for this document type No Review of Systems Recorded Review of Systems not supported for this document type No Review of Systems Recorded Review of Systems not supported for this document type No Review of Systems Recorded Review of Systems not supported for this document type No Review of Systems Recorded Review of Systems not supported for this document type No Review of Systems Recorded Physical Exam Physical Exam not supported for this document type No Physical Exam Recorded Physical Exam not supported for this document type No Physical Exam Recorded Physical Exam not supported for this document type No Physical Exam Recorded Physical Exam not supported for this document type No Physical Exam Recorded Physical Exam not supported for this document type No Physical Exam Recorded Physical Exam not supported for this document type No Physical Exam Recorded Physical Exam not supported for this document type No Physical Exam Recorded Physical Exam not supported for this document type No Physical Exam Recorded Physical Exam not supported for this document type No Physical Exam Recorded Physical Exam not supported for this document type No Physical Exam Recorded Physical Exam not supported for this document type No Physical Exam Recorded Physical Exam not supported for this document type No Physical Exam Recorded Physical Exam not supported for this document type No Physical Exam Recorded Chief Complaint and Reason for Visit Chief Complaint M25.561 Chief Complaint M25.561 GERD Reason for Visit GERD (gastroesophage al reflux disease) Additional Source Comments INFORMATION SOURCE (unrecogn ized section and content) DATE CREATED AUTHOR 03/26/2018 [facility] DATE CREATED AUTHOR AUTHOR'S ORGANIZ ATION 05/07/2020 [facility] DATE CREATED AUTHOR AUTHOR'S ORGANIZ ATION 02/10/2023 [facility] DATE CREATED AUTHOR AUTHOR'S ORGANIZ ATION 03/28/2023 [facility] DATE CREATED AUTHOR AUTHOR'S ORGANIZ ATION 09/02/2023 [facility] EPIC Evaluations & Outcomes (unre cognized section and content) Includes: Evaluations & Outcomes for active GoalsNo Outcomes Recorded Includes: Evaluations & Outcomes for active GoalsNo Outcomes Recorded Includes: Evaluations & Outcomes for active GoalsNo Outcomes Recorded Includes: Evaluations & Outcomes for active GoalsNo Outcomes Recorded Includes: Evaluations & Outcomes for active GoalsNo Outcomes Recorded Includes: Evaluations & Outcomes for active GoalsNo Outcomes Recorded Includes: Evaluations & Outcomes for active GoalsNo Outcomes Recorded Includes: Evaluations & Outcomes for active GoalsNo Outcomes Recorded Includes: Evaluations & Outcomes for active GoalsNo Outcomes Recorded Includes: Evaluations & Outcomes for active GoalsNo Outcomes Recorded Includes: Evaluations & Outcomes for active GoalsNo Outcomes Recorded REASON FOR VISIT (unrecogniz ed section and content) fell on knee, can't bendposs ible thrush Care Teams (unrecognized sec tion and content) Team Status: Inactive Member Role Status Dates ESTELITA SpannC Attending Provider Active Team Status: Active Member Role Status Dates NON STAFF Primary Care Provider Active Team Status: Inactive Member Role Status Dates Karan Beaulieu MD Attending Provider Active NON STAFF Primary Care Provider Active Goals (unrecognized section and content) Goals may be documented in a n alternate section FOR RECORDS PERTAINING TO PATIENTS WHO ARE OR HAVE BEEN ENROLLED IN A CHEMICAL DEPENDENCY/SUBSTANCEABUSE PROGRAM, SOME INFORMATION MAY BE OMITTED. This clinical summary was aggregated from multiple sources. Caution should be exercised in using it in the provision of clinical care. This summary normalizes information from multiple sources, and as a consequence, information in this document may materially change the coding, format and clinical context of patient data. In addition, data may be omitted in some cases. CLINICAL DECISIONS SHOULD BE BASED ON THE PRIMARY CLINICAL RECORDS. [employer] [facility]. provides no warranty or guarantee of the accuracy or completeness of information in this document.
[2023-10-08 15:45] LABS: Thyroid Stimulating Hormone 0.725 uIU/mL (0.358-3.740)
== END 2023-10-08 11:47 | disposition home or self-care (01) ==
LOC: LAB 11:48
PROVIDERS: Visit Provider Obstetrics & Gynecology
DX: R79.89 Other specified abnormal findings of blood chemistry (principal)
CPT/HCPCS: 36415; 84443

== ENCOUNTER 2023-11-12 13:44 | Outpatient (OUT) | payer MEDICAID, SELFPAY ==
--- OUTSIDE RECORDS SUMMARY | 2023-11-12 13:51 | XMS_ITS | CCD ---
Author Name Unknown Address [address] [facility] [address] [place] [address] Organization [facility] Care Team Providers Care Doctor Of Naturopathic Medicine Name Role Phone Gehlot, Upender Unavailable Unavailable Gehlot, Upender Unavailable Unavailable EMPERATRIZ CERNA Unavailable Unavailable Sally Morejon Primary Care Provider Unavailable Primary Care Provider UnavailCANDACE Dubon Referring Unavailable Sally Morejon Primary Care Provider [phone] Sally Morejon CNP Primary Care Provider [phone] Shayla Valle Unavailable JUMANA Valle Attending Provider [phone] AICHHOLZ, WEATHERSTRIP MACHINE OPERATOR VITO Admitting Unavailable AICHHOLZ, WEATHERSTRIP MACHINE OPERATOR VITO Attending Unavailable AICHHOLZ, WEATHERSTRIP MACHINE OPERATOR VITO Primary Care Unavailable AICHHOLZ, WEATHERSTRIP MACHINE OPERATOR VITO Consulting Unavailable NORMA ., DR JIN Admitting Unavailable NORMA ., DR JIN Attending Unavailable AICHHOLZ, WEATHERSTRIP MACHINE OPERATOR VITO Primary Care Unavailable NORMA ., DR JIN Consulting Unavailable DR BOBBI SIMONS Consulting Unavailable NORMA ., DR JIN Admitting Unavailable NORMA ., DR JIN Attending Unavailable AICHHOLZ, WEATHERSTRIP MACHINE OPERATOR VITO Primary Care Unavailable NORMA ., DR JIN Consulting Unavailable DR BOBBI SIMONS Consulting Unavailable NORMA ., DR JIN Admitting Unavailable NORMA ., DR JIN Attending Unavailable AICHHOLZ, WEATHERSTRIP MACHINE OPERATOR VITO Primary Care Unavailable NORMA ., DR JIN Consulting Unavailable AICHHOLZ, WEATHERSTRIP MACHINE OPERATOR VITO Admitting Unavailable AICHHOLZ, WEATHERSTRIP MACHINE OPERATOR VITO Attending Unavailable AICHHOLZ, WEATHERSTRIP MACHINE OPERATOR VITO Primary Care Unavailable NORMA ., DR JIN Admitting Unavailable NORMA ., DR JIN Attending Unavailable AICHHOLZ, WEATHERSTRIP MACHINE OPERATOR VITO Primary Care Unavailable NORMA ., DR JIN Consulting Unavailable NORMA ., DR JIN Admitting Unavailable NORMA ., DR JIN Attending Unavailable AICHHOLZ, WEATHERSTRIP MACHINE OPERATOR VITO Primary Care Unavailable NORMA ., DR JIN Consulting Unavailable AGUBOSIM, WADE Consulting Unavailable SOFI XIAO Consulting Unavailable NORMA ., DR JIN Admitting Unavailable NORMA ., DR JIN Attending Unavailable AICHHOLZ, WEATHERSTRIP MACHINE OPERATOR VITO Primary Care Unavailable NORMA ., DR JIN Consulting Unavailable AICHHOLZ, WEATHERSTRIP MACHINE OPERATOR VITO Admitting Unavailable AICHHOLZ, WEATHERSTRIP MACHINE OPERATOR VITO Attending Unavailable AICHHOLZ, WEATHERSTRIP MACHINE OPERATOR VITO Primary Care Unavailable [place], DR JO-ANN Nicolas Consulting Unavailable AICHHOLZ, WEATHERSTRIP MACHINE OPERATOR VITO Consulting Unavailable Yoel Jarrett Unavailable MD Karan Beaulieu Attending Provider NON STAFF Primary Care Provider Unavailabl e NON STAFF Primary Care Unavailable Karan Beaulieu Attending UnavailKaran Salter Admitting UnavailShayla Jordan Attending Unavailable Shayla Valle Admitting Unavailable ELIAZAR CASTANEDA Attending [facility] ELIAZAR CASTANEDA Referring Unavailable VELAZQUEZFREDDIE NIEVES Primary Care Unavailable Allergies Allergy Classification Reported Allergen(s) Allergy Type Date of Onset Reaction(s) Facility (13 sources) Penicillins (Antibiotic) Allergy to substance 9 [facility] Work Phone: (8 sources) [facility] Allergy 0 [facility] Work Phone: (3 sources) Penicillin G Drug Allergy Unknown [facility] Other (1 source) Penicillin Drug Allergy [facility] Repository (2 sources) Penicillins; Translations: [PENICILLINS] Drug allergy (disorder) 2 [facility] Repository (3 sources) Penicillins Propensity to adverse reactions to drug 2 Other (See Comments) [facility] Medications Current Medications Medication Drug Class(es) Dates Sig (Normalized) Sig (Original) [id number] 200 actuat albuterol 0.09 mg/actuat metered dose inhaler (20 sources) beta2-Adrenergic Agonist Start: 07-30-2023 take 2 puff(s) by inhalation every six hours as needed for wheezing albuterol (PROVENTIL HFA;VENTOLIN HFA) 90 mcg/actuation inhaler Indications: Mild intermittent asthma without complication Inhale 2 puffs every 6 (six) hours as needed for wheezing. 18 g 2 07/30/2023 Active Start: 07-28-2019 End: 12-30-2019 ProAir HFA 108 (90 Base) MCG /ACT Inhalation Aerosol Solution 12/30/2019 Provider: Candace Grossman CNP Start: 07-28-2019 End: 12-30-2019 ProAir HFA 108 (90 Base) MCG /ACT Inhalation Aerosol Solution 12/30/2019 Provider: Candace Grossman CNP aspirin 81 mg chewable tablet (3 sources) Platelet Aggregation Inhibitor, Nonsteroidal Anti-inflammatory Drug aspirin 81 mg chewable tablet Chew 1 tablet (81 mg total) and swallow in the morning. 0 Active buPROPion hydrochloride 100 mg oral tablet (2 sources) Aminoketone Start: 03-16-20 take 150 mg by mouth once daily [...] mpoo 03/29/2020 Provider: Candace Grossman CNP nystatin [id number] unt/ml oral suspension (1 source) Polyene Antifungal Start: 05-29-2023 take 5 mL by mouth three times daily Nystatin [id number] UNIT/ML 5 ml Mouth/Throat 3 times a day for 10 days swish and swallow May, Active omeprazole 40 mg delayed release oral capsule (5 sources) Proton Pump Inhibitor Start: 07-30-2023 take 1 capsule by mouth in the morning omeprazole (PriLOSEC) 40 mg capsule Take 1 capsule (40 mg total) by mouth in the morning. 90 SOLN 1 07/30/2023 Active Start: 03-19-2023 take 40 mg by mouth twice thania y Omeprazole Active 40 MG PO Twice daily 60 March 19, 2023 12:00am Start: 03-16-2023 take 20 mg by mouth once daily Omeprazole Active 20 MG PO Daily March 16, 2023 12:00am ondansetron 4 mg disintegrating oral tablet (6 sources) Serotonin-3 Receptor Antagonist take 1 tablet by mouth every eight hours as needed for nausea and vomiting ondansetron ODT (ZOFRAN ODT) 4 mg disintegrating tablet Dissolve 1 tablet (4 mg total) on tongue every 8 (eight) hours as needed for nausea or vomiting. 0 Active -tlvn-qtzzj- omega3 29-1-400 mg combo pack,tablet & capDR (3 sources) yzslqbyc02-myba- folic -omega3 29-1-400 mg combo pack,tablet & capDR Take by mouth. 0 Active sertraline 25 mg oral tablet (7 sources) Serotonin Reuptake Inhibitor Start: 08-01-20 take 1 tablet by mouth in the morning sertraline (ZOLOFT) 25 mg tablet Take 1 tablet (25 mg total) by mouth in the morning. 30 tablet 2 08/01/2023 Active Start: 03-16-2023 take 100 mg by mouth once thania y Sertraline Active 100 MG PO Daily March 16, 2023 12:00am traZODone hydrochloride 150 mg oral tablet (20 sources) Serotonin Reuptake Inhibitor Start: 03-29-2020 traZODone HCl 150 MG Oral [...] Grossman CNP valACYclovir 500 mg oral tablet (7 sources) Herpesvirus Nucleoside Analog DNA Polymerase Inhibitor, Herpes Simplex Virus Nucleoside Analog DNA Polymerase Inhibitor, Herpes Zoster Virus Nucleoside Analog DNA Polymerase Inhibitor Start: 12-03-2022 take 1 tablet by mouth once daily valACYclovir (VALTREX) 500 mg tablet TAKE 1 TABLET BY MOUTH EVERY DAY 30 tablet 0 12/03/2022 Active 24 hr venlafaxine 150 mg extended release [...] mg/ml oral solution (4 sources) Phenothiazine, Uncompetitive B-hwdgag-O-aspartat e Receptor Antagonist, Sigma-1 Agonist Start: 01-08-2020 [...] Translations: [Unspecified asthma, uncomplicated] Onset: 07-28-2019 Chronic Attention-deficit, conduct, and disruptive behavior disorders (3 sources) Attention deficit hyperactivity disorder, predominantly inattentive type; Translations: [Attention-deficit hyperactivity disorder, predominantly inattentive type] Onset: 07-30-2023 07-30-2023 Chronic Esophageal disorders (7 sources) Gastroesophageal reflux disease; Translations: [Gastro-esophageal reflux disease without esophagitis] Onset: 03-19-2023 Chronic Menstrual disorders (4 sources) Irregular menstruation, unspecified; Translations: [IRREGULAR MENSTRUATION UNSPECIFIED] Onset: 05-18-2022 Chronic Miscellaneous mental health disorders (3 sources) Psychophysiologic insomnia; Translations: [Psychophysiologic insomnia] Onset: 07-30-2023 07-30-2023 Chronic Mood disorders (20 sources) Severe recurrent major depre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 features; Translations: [Dysthymia] Onset: 07-28-2019 Chronic Mycoses (1 source) Candidal stomatitis Episodic Other complications of (2 sources) Multigravida of advanced maternal age; Translations: [Supervision of elderly multigravida, second trimester] 10-22-2023 Episodic Other complications of (1 source) Supervision of elderly multigravida, second trimester; Translations: [Supervision of elderly multigravida, second trimester] Onset: 10-22-2023 Episodic Other non-traumatic joint disorders (1 source) [...] INDEX BMI 30.0-30.9 ADULT] Onset: 05-26-2022 Chronic Residual codes; unclassified (2 sources) Family history of autism; Translations: [Family history of other mental and behavioral disorders] 10-22-2023 Episodic Residual codes; unclassified (2 sources) Family history of mental disorder; Translations: [Family history of other mental and behavioral disorders] 10-22-2023 Episodic Superficial injury; contusion (1 source) Contusion of [...] Phq-9 Total Score] Onset: 07-28-2019 Mood disorders (5 sources) Major depressive disorder, single episode, unspecified; Translations: [Mood disorders] Onset: 03-29-2020 09-10-2023 Other complications of (5 sources) Missed ; [...] Interpretation Reference Range Facility HCG ( test) Marcela bowie Ql (U)Ordered By: Karan Beaulieu on 03-19-2023 HCG ( test) Ql (U) Negative [facility] HCG,Urineon 03-19-2023 Beta HCG ( test) Ql (U) Negative Normal [facility] Comment on above: Result Comment: PERF ORMED BY: [place] [address] PATHOLOGIST IRRIGATOR JOYCE ACHARYA M.D. Performed By: #### U HCG #### [place] [address] [place] Joel 03-19-2023 L Specimen: [id number] Received: 03/19/23 Status: HEMANT Wilkescarisa Num: [id number] Spec Type: Surgical Subm Dr: Karan Beaulieu MD Tissues: A Duodenum - Biopsy (DUODENAL BX) B Esophagus Biopsy (ESOPHAGEAL) Procedures: HE/4, Gross/Micro L4/2 Age/ Patient Sex Location Account Attending Physician Vy Mckeon Josephine 32/F [id number] Karan Beaulieu MD SPEC NUM: [id number] RECD: 03/19/23 STATUS: HEMANT TORRES NUM: [id number] ASAD: 03/19/[address] [facility] DR: Karan Beaulieu MD ENTERED: 03/19/23 [facility] [place] [facility]: MERE TYPE: Surgical DEPT: S ORDERED: HE/4, Gross/Micro [...] submitted in one cassette labeled B1. Specimen: [id number] Received: 03/19/23 Status: HEMANT Torres Num: [id number] Spec Type: Surgical Subm Dr: Karan Beaulieu MD Tissues: A Duodenum - Biopsy (DUODENAL BX) B Esophagus Biopsy (ESOPHAGEAL) Procedures: HE/4, Gross/Micro L4/2 Patient: Vy Mckeon [id number] (Continued) Specimen: Received: 03/19/23 (Continued) Signed (signature on file) Doris Reynolds MD 03/20/23 1117 Specimen: Received: 03/19/23 Status: HEMANT Torres Num: [id number] Spec Type: Surgical Subm Dr: Karan Beaulieu MD Tissues: A Duodenum - Biopsy (DUODENAL BX) B Esophagus Biopsy (ESOPHAGEAL) Procedures: HE/4, Gross/Micro L4/2 Patient: Vy Mckeon Josephine [id number] (Continued) Specimen: [id number] Received: 03/19/23 (Continued) Microscopic Description A. Two with H E stained material have been examined. The microscopic findings support the above pathologic diagnosis. B. Two with H E stained material have been examined. The microscopic findings support the above pathologic diagnosis. CPT Codes 95242 x 2 Specimen: [id number] Received: 03/19/23 Status: HEMANT Torres Num: [id number] Spec Type: Surgical Subm Dr: Karan Beaulieu MD Tissues: A Duodenum - Biopsy (DUODENAL BX) B Esophagus Biopsy (ESOPHAGEAL) Procedures: HE/4, Gross/Micro L4/2 Patient: Vy Mckeon [id number] (Continued) Signed (signature on file) Doris Reynolds MD 03/20/23 1117 [facility] CBC AUTO DIFFon 02-09-2023 BASO # 0.0 103/ul Normal 0.0-0.1 [facility] Comment on above: Performed By: #### C BC ####[facility] [address] [place] [address]DrBryant Branham Basophils/100 WBC (Bld) 0.3 % Normal 0.2-2.0 [facility] Comment on above: Performed By: #### C BC ####[facility] [address] [place] [address]DrBryant Branham EO # 0.2 103/ul Normal 0.0-0.7 [facility] Comment on above: Performed By: #### C BC ####[facility] [address] [place] [address]Dr. Zafar Branham Eosinophils/100 WBC (Bld) 1.7 % Normal 0.9-7.0 [facility] Comment on above: Performed By: #### C BC ####[facility] [address] [place] [address]Dr. Zafar Branham Erythrocyte distribution width (RBC) [Ratio] 13.9 % Normal 11.0-15.0 [facility] Comment on above: Performed By: #### C BC ####[facility] [address] [place] [address]Dr. Zafar Branham Hematocrit (Bld) [Volume fraction] 41.0 % Normal 36.0-48.0 [facility] Comment on above: Performed By: #### C BC ####[facility] [address] [place] [address]Dr. Zafar Branham Hemoglobin (Bld) [Mass/Vol] 13.4 g/dL Normal 12.0-16.0 [facility] Comment on above: Performed By: #### C BC ####[facility] [address] [place] [address]Dr. Zafar Branham IG # 0.03 10e3/ul Normal 0.00-0.03 [facility] Comment on above: Performed By: #### C BC ####[facility] [address] [place] [address]Dr. Zafar Branham IG % 0.3 % Normal 0.0-0.5 [facility] Comment on above: Performed By: #### C BC ####[facility] [address] [place] [address]Dr. Zafar Branham LYMPH # 1.4 103/ul Normal 1.2-3.8 [facility] Comment on above: Performed By: #### C BC ####[facility] [address] [place] [address]Dr. Zafar Branham Lymphocytes/100 WBC (Bld) 14.8 % Critically low 20.5-60.0 [facility] Comment on above: Performed By: #### C BC ####[facility] [address] [place] [address]Dr. Zafar Yonas MANUAL DIFF REQ NO Normal [facility] Comment on above: Performed By: #### C BC ####[facility] [address] [place] [address]Dr. Zafar Branham MCH (RBC) [Entitic mass] 28.8 pg Normal 26.7-34.0 [facility] Comment on above: Performed By: #### C BC ####[facility] [address] [place] [address]Dr. Zafar Yonas MCHC (RBC) [Mass/Vol] 32.7 g/dL Normal 29.9-35.2 [facility] Comment on above: Performed By: #### C BC ####[facility] [address] [place] [address]Dr. Zafar Yonas MCV (RBC) [Entitic vol] 88.0 fL Normal 81.0-99.0 [facility] Comment on above: Performed By: #### C BC ####[facility] [address] [place], [place] [address]Dr. Zafar Yonas MONO # 0.4 103/ul Normal 0.3-0.8 [facility] Comment on above: Performed By: #### C BC ####[facility] [address] [place], [place] [address]Dr. Kathytere Branham Monocytes/100 WBC (Bld) 3.9 % Normal 1.7-12.0 [facility] Comment on above: Performed By: #### C BC ####[facility] [address] [place] [address]Dr. Kathytere Yonas NEUT # 7.2 103/ul Critically high 1.4-6.5 [facility] Comment on above: Performed By: #### C BC ####[facility] [address] [place], [place] [address]Dr. Zafar Branham Neutrophils/100 WBC (Bld) 79.0 % Critically high 43.0-75.0 [facility] Comment on above: Performed By: #### C BC ####[facility] [address] [place] [id number]. Zafar Branham Platelet mean volume (Bld) [Entitic vol] 10.7 fL Normal 9.5-13.5 [facility] Comment on above: Performed By: #### C BC ####[facility] [address] [place] [id number]. Zafar Branham PLT 353 103/ul Normal 150-450 [facility] Comment on above: Performed By: #### C BC ####[facility] [address] [place] [id number] Branham RBC 4.66 106/ul Normal 4.20-5.40 [facility] Comment on above: Performed By: #### C BC ####[facility] [address] [place] [address]DrBryant Branham WBC 9.2 103/ul Normal 4.0-11.0 [facility] Comment on above: Performed By: #### C BC ####[facility] [address] [place] [address]Dr. Zafar Branham CRPon 02-09-2023 CRP 1.0 mg/dL Normal <=1.0 [facility] Comment on above: Performed By: #### C RP, CMP, TSH, LIPID ####[facility] [address] [place] [id number]. Zafar Branham FREE T4on 02-09-2023 Free T4 [Mass/Vol] 1.01 ng/dL Normal 0.76-1.46 [facility] Comment on above: Performed By: #### F T4 #### [facility] [address] [place], [place] [address] Dr. Zafar Branham LIPID PROFILEon 02-09-2023 CHOL-HDL RATIO NORM SEE BELOW Normal [facility] Comment on above: Result Comment: 3.3 - 4.4 LOW RISK 4.4 - 7.1 AVERAGE RISK 7.1 - 11.0 MODERATE RISK >11.0 HIGH RISK Performed By: #### C RP, CMP, TSH, LIPID ####[facility] [address] [place] [address]DrBryant Branham Cholesterol [Mass/Vol] 230 mg/dL Critically high <=200 [facility] Comment on above: Performed By: #### C RP, CMP, TSH, LIPID ####[facility] [address] [place] [id number]. Zafar Branham Cholesterol in HDL [Mass/Vol] 71 mg/dL Critically high 40-60 [facility] Comment on above: Performed By: #### C RP, CMP, TSH, LIPID ####[facility] [address] [place] [id number]. Zafar Branham Cholesterol in LDL [Mass/Vol] 139.4 mg/dL Normal [facility] Comment on above: Performed By: #### C RP, CMP, TSH, LIPID ####[facility] [address] [place] [address]Dr. Zafar Branham Cholesterol.total/C holesterol in HDL [Mass ratio] 3.2 {ratio} Normal [facility] Comment on above: Performed By: #### C RP, CMP, TSH, LIPID ####[facility] [address] [place] [id number]. Zaafr Branham HDL NORMAL > or = 60 mg/dl - LOW CARDIOVASCULAR RISK <40 mg/dl - HIGH CARDIOVASCULAR RISK Normal [facility] Comment on above: Performed By: #### C RP, CMP, TSH, LIPID ####[facility] [address] [place] [address]Dr. Zafar Branham LDL CALC NORMAL SEE BELOW Normal [facility] Comment on above: Result Comment: <100 mg/dl OPTIMAL 100 - 129 mg/dl NEAR OR ABOVE OPTIMAL 130 - 159 mg/dl BORDERLINE HIGH 160 - 189 mg/dl HIGH >190 mg/dl VERY HIGH Performed By: #### C RP, CMP, TSH, LIPID ####[facility] [address] [place] [address]Dr. Kathylan Branham Triglyceride [Mass/Vol] 98 mg/dL Normal <=150 [facility] Comment on above: Performed By: #### C RP, CMP, TSH, LIPID ####[facility] [address] [place] [id number]. Zafar Branham VLDL CALC 19.6 mg/dL Normal [facility] Comment on above: Performed By: #### C RP, CMP, TSH, LIPID ####[facility] [address] [place] [address]Dr. Zafar Branham URon 02-09-2023 , QUAL Negative Normal NEGATIVE [facility] Comment on above: Performed By: #### U AMIC, PREGU #### [facility] [address] [place] [address] [address] Zafar Branham PROF 14(COMP METB)on 023 Albumin [Mass/Vol] 4.0 g/dL Normal 3.4-5.0 [facility] Comment on above: Performed By: #### C RP, CMP, TSH, LIPID #### [facility] [address] [place] [address] [address] Zafar Branham Albumin/Globulin [Mass ratio] 0.9 {ratio} Normal [facility] Comment on above: Performed By: #### C RP, CMP, TSH, LIPID #### [facility] [address] [place] [address] [address] Zafar Branham ALP [Catalytic activity/Vol] 94 U/L Normal 46-116 [facility] Comment on above: Performed By: #### C RP, CMP, TSH, LIPID #### [facility] [address] [place] [address] [address] Zafar Branham ALT [Catalytic activity/Vol] 30 U/L Normal 14-59 [facility] Comment on above: Performed By: #### C RP, CMP, TSH, LIPID #### [facility] [address] [place] [address] [address] Zafar Branham Anion gap [Moles/Vol] 13.6 mmol/L Normal [facility] Comment on above: Performed By: #### C RP, CMP, TSH, LIPID #### [facility] [address] [place] [address] [address] Zafar Branham AST [Catalytic activity/Vol] 23 U/L Normal 15-37 [facility] Comment on above: Performed By: #### C RP, CMP, TSH, LIPID #### [facility] [address] [place] [address] [address] Zafar Branham Bilirubin [Mass/Vol] 0.3 mg/dL Normal 0.2-1.0 [facility] Comment on above: Performed By: #### C RP, CMP, TSH, LIPID #### [facility] [address] [place] [address] Dr. Zafar Branham Calcium [Mass/Vol] 9.7 mg/dL Normal 8.5-10.1 [facility] Comment on above: Performed By: #### C RP, CMP, TSH, LIPID #### [facility] [address] [place] [address] Dr. Zafar Branham Chloride [Moles/Vol] 100 mmol/L Normal 98-107 [facility] Comment on above: Performed By: #### C RP, CMP, TSH, LIPID #### [facility] [address] [place] [address] Dr. Zafar Branham CO2 [Moles/Vol] 26.6 mmol/L Normal 21.0-32.0 [facility] Comment on above: Performed By: #### C RP, CMP, TSH, LIPID #### [facility] [address] [place] [address] Dr. Zafar Branham Creatinine [Mass/Vol] 1.00 mg/dL Normal 0.55-1.02 [facility] Comment on above: Performed By: #### C RP, CMP, TSH, LIPID #### [facility] [address] [place] [address] Dr. Zafar Branham EGFR-AF TANZANIAN >60 Normal >=60 [facility] Comment on above: Performed By: #### C RP, CMP, TSH, LIPID #### [facility] [address] [place] [address] Dr. Zafar Branham EGFR-NON AF TANZANIAN >60 Normal >=60 [facility] Comment on above: Performed By: #### C RP, CMP, TSH, LIPID #### [facility] [address] [place] [address] Dr. Zafar Branham Globulin (S) [Mass/Vol] 4.5 g/dL Normal [facility] Comment on above: Performed By: #### C RP, CMP, TSH, LIPID #### [facility] [address] [place] [address] [address] Zafar Branham Glucose [Mass/Vol] 93 mg/dL Normal 74-106 [facility] Comment on above: Performed By: #### C RP, CMP, TSH, LIPID #### [facility] [address] [place] [address] [address] Zafar Branham Potassium [Moles/Vol] 4.2 mmol/L Normal 3.5-5.1 [facility] Comment on above: Performed By: #### C RP, CMP, TSH, LIPID #### [facility] [address] [place] [address] Dr. Zafar Branham Protein [Mass/Vol] 8.5 g/dL Critically high 6.4-8.2 [facility] Comment on above: Performed By: #### C RP, CMP, TSH, LIPID #### [facility] [address] [place] [address] Dr. Zafar Branham Sodium [Moles/Vol] 136 mmol/L Normal 136-145 [facility] Comment on above: Performed By: #### C RP, CMP, TSH, LIPID #### [facility] [address] [place] [address] Dr. Zafar Branham Urea nitrogen [Mass/Vol] 10.0 mg/dL Normal 7.0-18.0 [facility] Comment on above: Performed By: #### C RP, CMP, TSH, LIPID #### [facility] [address] [place] [address] Dr. Zafar Branham Urea nitrogen/Creatinine [Mass ratio] 10.0 mg/mg Normal [facility] Comment on above: Performed By: #### C RP, CMP, TSH, LIPID #### [facility] [address] [place] [address] Dr. Zafar Branham SED RATE [facility] 2022 SED RATE 49 mm/hr Critically high <=20 [facility] Comment on above: Performed By: #### S EDR ####[facility] [address] [place] [address]Dr. Zafar Branham TSHon 02-09-2023 TSH 0.590 uIU/mL Normal 0.358-3.740 [facility] Comment on above: Performed By: #### C RP, CMP, TSH, LIPID #### [facility] [address] [place] [address] [address] Zafar Branham UA RANDOM W/MICROSCOPICon BACTERIA NONE SEEN Normal NONE SEEN [facility] Comment on above: Performed By: #### U AMIC, PREGU #### [facility] [address] [place] [address] [address] Zafar Branham Bilirubin Ql (U) Negative Normal NEGATIVE [facility] Comment on above: Performed By: #### U AMIC, PREGU #### [facility] [address] [place] [address] Dr. Zafar Branham CAST NONE SEEN Normal NONE SEEN [facility] Comment on above: Performed By: #### U AMIC, PREGU #### [facility] [address] [place] [address] Dr. Zafar Branham Clarity (U) CLEAR Normal CLEAR [facility] Comment on above: Performed By: #### U AMIC, PREGU #### [facility] [address] [address] [address] Zafar Branham Color (U) LT. YELLOW Normal YELLOW [facility] Comment on above: Performed By: #### U AMIC, PREGU #### [facility] [address] [address] [address] Zafar Branham Crystals LM Nom (Urine sed) NONE SEEN Normal NONE SEEN [facility] Comment on above: Performed By: #### U AMIC, PREGU #### [facility] [address] [place] [address] Dr. Zafar Branham Epithelial cells LM Ql (Urine sed) FEW Abnormal NONE SEEN /RARE [facility] Comment on above: Performed By: #### U AMIC, PREGU #### [facility] [address] [place] [address] Dr. Zafar Branham Glucose Ql (U) Negative Normal NEGATIVE [facility] Comment on above: Performed By: #### U AMIC, PREGU #### [facility] [address] [address] [address] Zafar Branham Hemoglobin Ql (U) SMALL Abnormal NEGATIVE [facility] Comment on above: Performed By: #### U AMIC, PREGU #### [facility] [address] [address] [address] Zafar Branham Ketones Ql (U) Negative Normal NEGATIVE [facility] Comment on above: Performed By: #### U AMIC, PREGU #### [facility] [address] [address] [address] Zafar Branham LEUKOCYTES Negative Normal NEGATIVE [facility] Comment on above: Performed By: #### U AMIC, PREGU #### [facility] [address] [address] [address] Zafar Branham MUCOUS NONE SEEN Normal NONE SEEN [facility] Comment on above: Performed By: #### U AMIC, PREGU #### [facility] [address] [address] [address] Zafar Branham Nitrite Ql (U) Negative Normal NEGATIVE [facility] Comment on above: Performed By: #### U AMIC, PREGU #### [facility] [address] [address] [address] Zafar Branham pH (U) 6.0 [pH] Normal 5-9 [facility] Comment on above: Performed By: #### U AMIC, PREGU #### [facility] [address] [address] [address] Zafar Branham RBC 0-2 Normal 0-2 [facility] Comment on above: Performed By: #### U AMIC, PREGU #### [facility] [address] [address] [address] Zafar Branham SPEC GRAVITY <=1.005 Abnormal 1.005-<=1.025 [facility] Comment on above: Performed By: #### U AMIC, PREGU #### [facility] [address] [address] [address] Zafar Branham UA PROTEIN Negative Normal NEGATIVE/ TRACE [facility] Comment on above: Performed By: #### U AMIC, PREGU #### [facility] [address] [address] [address] Zafar Branham Urobilinogen Qn (U) 0.2 {Ramy'U}/dL Normal 0.2 - 1. 0 [facility] Comment on above: Performed By: #### U AMIC, PREGU #### [facility] [address] [address] [address] Zafar Branham WBC NONE SEEN Normal NONE SEEN [facility] Comment on above: Performed By: #### U AMIC, PREGU #### [facility] [address] [address] [address] Zafar Branham XR knee RT 4V*on 02-07-2023 XR knee RT 4V* [facility] [employer] Other XR knee RT 4V* [facility] [employer] Other XR knee RT 4V* [address] [place] [address] [employer] Other XR knee RT 4V* [place] [address] No rt [employer] Other XR knee RT 4V* XRay Report [employer] Other XR knee RT 4V* Signed [facility] Other XR knee RT 4V* Patient: Vy Mckeon MR#: [id number] [place] [employer] Other XR knee RT 4V* 5 [facility] Other XR knee RT 4V* : 1990 Acct:[id number] [employer] Other XR knee RT 4V* Age/Sex: 32 / F ADM Date: 02/07/23 [employer] Other XR knee RT 4V* Loc: XDUCLY [facility] [employer] Other XR knee RT 4V* Attending Dr: Shayla DENNEY [employer] Other XR knee RT 4V* Copies to: JUMANA Christianson [employer] Other XR knee RT 4V* Ordering Provider: JUMANA Christianson [employer] Other XR knee RT 4V* Date of Service: 02/07/23 [employer] Other XR knee RT 4V* XR/XR knee RT 4V*: RIGHT KNEE PAIN [employer] Other XR knee RT 4V* RIGHT KNEE - 4 views [employer] Other XR knee RT 4V* COMPARISON: None [facility] [employer] Other XR knee RT 4V* CLINICAL DATA: Patient fell last night and landed on right anterior knee. Pain, swelling and [employer] Other XR knee RT 4V* abrasions. [facility] Other XR knee RT 4V* AP, lateral and both oblique views were obtained. There is no fracture or dislocation. There is no [employer] Other XR knee RT 4V* significant knee effusion or focal soft tissue swelling. [employer] Other XR knee RT 4V* XR/XR knee RT 4V* [employer] Other XR knee RT 4V* IMPRESSION: [employer] Other XR knee RT 4V* NO ACUTE BONY INJURY. [employer] Other XR knee RT 4V* Impression dictated by: Rama Garsia M.D.02/07/2023 10:01 AM [employer] Other XR knee RT 4V* Dictation Location: RADIO-PC-10 [employer] Other XR knee RT 4V* Transcribed By: MILKA 02/07/23 1001 [employer] Other XR knee RT 4V* Dictated By: Rama Garsia MD 02/07/23 1000 [employer] Other XR knee RT 4V* Signed By: [facility] Other XR knee RT 4V* 02/07/23 1007 [employer] Other XR knee RT 4V* [facility] [place] [address] [place] [address] XRay Report Signed Patient: Vy Mckeon MR#: [id number] 5 : 1990 Acct:[id number] Age/Sex: 32 / F ADM Date: 02/07/23 Loc: XDUCLY Room: Type: [facility] Attending Dr: Shayla DENNEY Copies to: JUMANA [...] Rama Garsia M.D.02/07/2023 10:01 AM [employer]ict[employer] Location: RADIO-PC-10 Transcribed By: MILKA 02/07/23 1001 Dictated By: Rama Garsia MD 02/07/23 1000 Signed By: 02/07/23 1001 [facility] XR HIPS KARELY 5V W PELVISon XR HIPS KARELY 5V W PELVIS EXAMINATION: XR HIPS KARELY [...] by: JO-ANN CHACON Date: 2022-12-17 13:04 Normal [facility] PREG QUANT HCGon 07-04-2022 HCG QUANT 1 mIU/mL Normal [facility] Comment on above: Performed By: #### P REGQNT #### [facility] [address] [address] [address] Zafar Branham HCG RANGE SEE BELOW Normal [facility] Comment on above: Result Comment: 5-50 0.2-1 WEEK 50-500 1-2 WEEKS 100-5,000 2-3 WEEKS 500-10,000 3-4 WEEKS 1,000-50,000 4-5 WEEKS 10,000-100,000 5-6 WEEKS 15,000-200,000 6-8 WEEKS 10,000-100,000 2-3 MONTHS Performed By: #### P REGQNT #### [facility] [address] [address] [address] Zafar Branham PREG QUANT HCGon 06-08-2022 HCG QUANT 16 mIU/mL Normal [facility] Comment on above: Performed By: #### P REGQNT ####[facility] [address] [place], [place] [address]AfDr. Zafar Branham HCG RANGE SEE BELOW Normal [facility] Comment on above: Result Comment: 5-50 0.2-1 WEEK 50-500 1-2 WEEKS 100-5,000 2-3 WEEKS 500-10,000 3-4 WEEKS 1,000-50,000 4-5 WEEKS 10,000-100,000 5-6 WEEKS 15,000-200,000 6-8 WEEKS 10,000-100,000 2-3 MONTHS Performed By: #### P REGQNT ####[facility] [address] [place], [place] [address]VyDr. Zafar Branham CBC AUTO DIFFon 05-23-2022 BASO # 0.0 103/ul Normal 0.0-0.1 [facility] Comment on above: Performed By: #### C BC #### [facility] [address] [address] [address] Zafar Branham Basophils/100 WBC (Bld) 0.6 % Normal 0.2-2.0 [facility] Comment on above: Performed By: #### C BC #### [facility] [address] [address] [address] Zafar Branham EO # 0.3 103/ul Normal 0.0-0.7 [facility] Comment on above: Performed By: #### C BC #### [facility] [address] [address] [address] Zafar Branham Eosinophils/100 WBC (Bld) 6.5 % Normal 0.9-7.0 [facility] Comment on above: Performed By: #### C BC #### [facility] [address] [address] [address] Zafar Branham Erythrocyte distribution width (RBC) [Ratio] 12.5 % Normal 11.0-15.0 [facility] Comment on above: Performed By: #### C BC #### [facility] [address] [address] [address] Zafar Branham Hematocrit (Bld) [Volume fraction] 37.2 % Normal 36.0-48.0 [facility] Comment on above: Performed By: #### C BC #### [facility] [address] [address] [address] Zafar Branham Hemoglobin (Bld) [Mass/Vol] 12.1 g/dL Normal 12.0-16.0 [facility] Comment on above: Performed By: #### C BC #### [facility] [address] [address] [address] Zafar Branham IG # 0.01 10e3/ul Normal 0.00-0.03 [facility] Comment on above: Performed By: #### C BC #### [facility] [address] [place] [address] Dr. Zafar Branham IG % 0.2 % Normal 0.0-0.5 [facility] Comment on above: Performed By: #### C BC #### [facility] [address] [place] [address] Dr. Zafar Branham LYMPH # 1.5 103/ul Normal 1.2-3.8 [facility] Comment on above: Performed By: #### C BC #### [facility] [address] [place] [address] Dr. Zafar Branham Lymphocytes/100 WBC (Bld) 29.8 % Normal 20.5-60.0 [facility] Comment on above: Performed By: #### C BC #### [facility] [address] [place] [address] Dr. Zafar Branham MANUAL DIFF REQ NO Normal [facility] Comment on above: Performed By: #### C BC #### [facility] [address] [place] [address] Dr. Zafar Branham MCH (RBC) [Entitic mass] 29.1 pg Normal 26.7-34.0 [facility] Comment on above: Performed By: #### C BC #### [facility] [address] [place] [address] Dr. Zafar Branham MCHC (RBC) [Mass/Vol] 32.5 g/dL Normal 29.9-35.2 [facility] Comment on above: Performed By: #### C BC #### [facility] [address] [place] [address] Dr. Zafar Branham MCV (RBC) [Entitic vol] 89.4 fL Normal 81.0-99.0 [facility] Comment on above: Performed By: #### C BC #### [facility] [address] [place] [address] Dr. Zafar Branham MONO # 0.4 103/ul Normal 0.3-0.8 [facility] Comment on above: Performed By: #### C BC #### [facility] [address] [address] [address] Zafar Branham Monocytes/100 WBC (Bld) 7.9 % Normal 1.7-12.0 [facility] Comment on above: Performed By: #### C BC #### [facility] [address] [address] [address] Zafar Branham NEUT # 2.7 103/ul Normal 1.4-6.5 [facility] Comment on above: Performed By: #### C BC #### [facility] [address] [address] [address] Zafar Branham Neutrophils/100 WBC (Bld) 55.0 % Normal 43.0-75.0 [facility] Comment on above: Performed By: #### C BC #### [facility] [address] [place] [address] Dr. Zafar Branham Platelet mean volume (Bld) [Entitic vol] 10.0 fL Normal 9.5-13.5 [facility] Comment on above: Performed By: #### C BC #### [facility] [address] [place] [address] Dr. Zafar Branham PLT 229 103/ul Normal 150-450 [facility] Comment on above: Performed By: #### C BC #### [facility] [address] [address] [address] Zafar Branham RBC 4.16 106/ul Critically low 4.20-5.40 [facility] Comment on above: Performed By: #### C BC #### [facility] [address] [place] [address] Dr. Zafar Branham WBC 5.0 103/ul Normal 4.0-11.0 [facility] Comment on above: Performed By: #### C BC #### [facility] [address] [place] [address] Dr. Zafar Branham TYPE AND SCREENon 05-23-2022 TYPE AND SCREEN Negative Normal [facility] Comment on above: Performed By: #### T NS ####[facility] [address] [address]Dr. Zafar Branham Covid-19 PCR (CVDTB)on 05-01 SARS-CoV-2 (COVID-19) RNA MANOLO+probe Ql (Unsp spec) Not detected Normal NOT DETECTED [facility] Comment on above: Result Comment: This test is not yet approved or cleared by the [place] FDA. When there are no FDA-approved or cleared tests available, and other criteria are met, FDA can make tests available under an emergency access mechanism called an Emergency Use Authorization (EUA). The EUA for this test is supported by the [place] of Health and Human Service's (HHS's) declaration [...] consistent with SARS-CoV-2. Performed By: #### C COUNTS INCLUDE 234 BEDS AT THE [facility] #### [facility] [address] [place] [address] Dr. Zafar Branham US PREG TVon 05-18-2022 [...] BOBBI SIMONS Date: 2022-05-18 19:25 Normal [facility] US PREG TVon 05-03-2022 US PREG TV [...] by: BOBBI SIMONS Date: 2022-05-03 16:32 Normal [facility] Chlamydia/GC DNA, TPon 05-05 Chlamydia Probe, TP Negative Normal [facility] Comment on above: Result Comment: CHLA MYDIA [...] nucleic acid target. Performed By: #### [facility] #### [address] [place] [address] Casting Tester: King Boone MD Gonorrhea Probe, TP Negative Normal NEG [facility] Comment on above: Result Comment: NEIS SERIA [...] target. Performed By: #### C YTCGP #### [facility] [address] [place] [address] Casting Tester: King Boone MD HPV DNA High Riskon 05-05-20 20 HPV Interp [facility] Comment on above: Result Comment: This test [...] purposes. Performed By: #### H PVH #### [facility] [address] [place] [address] Casting Tester: King Boone MD HPV Type 16 Not Detected [facility] Comment on above: Performed By: #### H PVH #### [facility] [address] [place] [address] Casting Tester: King Boone MD HPV Type 18 Not Detected [facility] Comment on above: Performed By: #### H PVH #### [facility] [address] [place] [address] Casting Tester: King Boone MD Other High Risk HPV Not Detected [facility] Comment on above: Performed By: #### H PVH #### [employer] [address] [place] [address] Casting Tester: King Boone MD HPV Sample .THIN PREP [facility] Comment on above: Performed By: #### H PVH #### [facility] [address] [place] [address] Casting Tester: King Boone MD Source .ENDOCERVIX Normal [facility] Comment on above: Performed By: #### H PVH #### [address] [address] Casting Tester: King Boone MD Otheron 05-04-2020 Direct Exam Negative [place], [place] VAGINITIS DNA PROBEon 2019 Direct Exam Positive Abnormal [place] Direct Exam Method of testing is a DNA probe intended for detection and identification of Nirmala species, Gardnerella vaginalis, and Trichomonas vaginalis nucleic acid in vaginal fluid specimens from patients with symptoms of vaginitis/vaginosis. [place] Interpretation and review of laboratory results Abnormal [place] Special Requests NOT REPORTED [place] Specimen Description .VAGINAL SWAB [place] Vaginitis DNA Probeon 2019 Vaginitis DNA [...] of vaginitis/vaginosis. Report Status FINAL 05/04/2020 Normal [facility] Comment on above: Performed By: #### V AGDNA #### [address] [address] Casting Tester: King Boone MD Cytologyon 05-03-2020 Cytology (NOTE) INTERPRETATION Endocervical material, (Thin prep vial, Imaging-assisted review): Specimen Adequacy: Satisfactory for evaluation. - Endocervical/transfo rmation zone component present. Descriptive Diagnosis: Negative for intraepithelial lesion or malignancy. Shift in ray suggestive of bacterial vaginosis. Comments: High Risk HPV testing was ordered. Supervisor Area: JAYLIN Higgins(ASCP) Electronically Signed Out /05/07/2020 Procedure/Addendum HPV Procedure Report Date Ordered: 05/05/2020 [...] GYNECOLOGIC CYTOLOGY REPORT Patient Name: VY MCKEON [facility] Rec: [id number] Path Number: [id number] [employer] [facility] [employer] ANATOMIC PATHOLOGY [address] [place] [phone] [facility] Comment on above: Performed By: #### P PPVP #### [employer] [address] [place] [address] Casting Tester: King Boone MD Vital Signs Date Time Vital Sign Value Performing Clinician Facility 05-29-2023 13:25-0400 Body height 170.18 cm Shayla Valle Other [employer] Other 05-29-2023 13:25-0400 Body mass index (BMI) [Ratio] 28.22 kg/m2 Shayla Valle Other [facility] Other 05-29-2023 13:25-0400 Body temperature 97.8 [degF] Shayla Tori Other [facility] Other 05-29-2023 13:25-0400 Body weight 81.74 kg Shayla Tori Other [facility] Other 05-29-2023 13:25-0400 Diastolic blood pressure 79 mm[Hg] Shayla Tori Other [facility] Other 05-29-2023 13:25-0400 Respiratory rate 18 /min Shayla Tori Other [facility] Other 05-29-2023 13:25-0400 SaO2% (BldA) [Mass fraction] 96 % Shayla Tori Other [facility] Other 05-29-2023 13:25-0400 Systolic blood pressure 127 mm[Hg] Shayla Tori Other [employer] Other 03-19-2023 14:37-0400 Diastolic blood pressure 69 mm[Hg] [employer] Shayla Tori Work Phone: [facility] 03-19-2023 14:37-0400 Heart rate 76 /min [employer] Shayla Tori Work Phone: [facility] 03-19-2023 14:37-0400 Respiratory rate 16 /min [employer] Shayla Tori Work Phone: [facility] 03-19-2023 14:37-0400 SaO2% (BldA) [Mass fraction] 96 % [employer] Shayla Tori Work Phone: [facility] 03-19-2023 14:37-0400 Systolic blood pressure 119 mm[Hg] [employer] Shayla Valle Work Phone: [facility] 03-19-2023 12:18-0400 Body height 170.18 cm [employer] Shayla Valle Work Phone: [facility] 03-19-2023 12:18-0400 Body temperature 97.9 [degF] [employer] Shayla Valle Work Phone: [facility] 03-19-2023 12:18-0400 Body weight 84.82 kg [employer] Shayla Valle Work Phone: [facility] 02-12-2023 14:30-0400 Body height 170.18 cm Yoel Jarrett Other [facility] Other 02-12-2023 14:30-0400 Body mass index (BMI) [Ratio] 30.54 kg/m2 Yoel Scrushner Other [facility] Other 02-12-2023 14:30-0400 Body weight 88.45 kg Yoel Yanivner Other [facility] Other 02-12-2023 14:30-0400 Diastolic blood pressure 80 mm[Hg] Yoel Scovanner Other [employer] Other 02-12-2023 14:30-0400 Systolic blood pressure 127 mm[Hg] Yoel Scovanner Other [employer] Other 02-07-2023 10:00-0400 Body height 170.18 cm Shayla Valle Other [employer] Other 02-07-2023 10:00-0400 Body mass index (BMI) [Ratio] 30.54 kg/m2 Shayla Valle Other [facility] Other 02-07-2023 10:00-0400 Body temperature 97.9 [degF] Shayla Valle Other [facility] Other 02-07-2023 10:00-0400 Body weight 88.45 kg Shayla Valle Other [facility] Other 02-07-2023 10:00-0400 Respiratory rate 18 /min Shayla Valle Other [facility] Other 02-07-2023 10:00-0400 SaO2% (BldA) [Mass fraction] 97 % Shayla Valle Other [facility] Other 05-03-2020 11:41-0400 BMI (Body Mass Index) 24.5 kg/m2 [facility] Work Phone: 05-03-2020 11:41-0400 Body Temperature 96.3 [degF] [facility] Work Phone: 05-03-2020 11:41-0400 Body weight 70.9 kg [facility] Work Phone: 05-03-2020 11:41-0400 BP Diastolic 80 mm[Hg] [facility] Work Phone: 05-03-2020 11:41-0400 BP Systolic 120 mm[Hg] [facility] Work Phone: 05-03-2020 11:41-0400 BSA (Body Surface Area) 1.82 m2 [facility] Work Phone: 05-03-2020 11:41-0400 Height 170.18 cm [facility] Work Phone: 05-03-2020 11:41-0400 Pulse (Heart Rate) 86 /min [facility] Work Phone: 05-03-2020 11:41-0400 Pulse Oximetry 93 % [facility] Work Phone: 05-03-2020 11:41-0400 Respiratory Rate 18 /min [facility] Work Phone: 04-08-2020 08:37-0400 BMI (Body Mass Index) 24.3 kg/m2 [facility] Work Phone: 04-08-2020 08:37-0400 Body Temperature 99 [degF] [facility] Work Phone: 04-08-2020 08:37-0400 Body weight 70.4 kg [facility] Work Phone: 04-08-2020 08:37-0400 BP Diastolic 80 mm[Hg] [facility] Work Phone: 04-08-2020 08:37-0400 BP Systolic 110 mm[Hg] [facility] Work Phone: 04-08-2020 08:37-0400 BSA (Body Surface Area) 1.82 m2 [facility] Work Phone: 04-08-2020 08:37-0400 Height 170.18 cm [facility] Work Phone: 04-08-2020 08:37-0400 Pulse (Heart Rate) 82 /min [facility] Work Phone: 04-08-2020 08:37-0400 Pulse Oximetry 98 % [facility] Work Phone: 04-08-2020 08:37-0400 Respiratory Rate 18 /min [facility] Work Phone: 03-29-2020 09:52-0400 Body height 170.18 cm Sally Morejon CNP Work Phone: [facility] Work Phone: Comment on above: self 03-29-2020 09:52-0400 Body mass index (BMI) [Ratio] 23.5 kg/m2 Sally Morejon CNP Work Phone: [facility] Work Phone: Comment on above: self 03-29-2020 09:52-0400 Body surface area Derived from formula 1.79 m2 Sally Morejon CNP Work Phone: [facility] Work Phone: Comment on above: self 03-29-2020 09:52-0400 Body weight 68.04 kg Sally Morejon CNP Work Phone: [facility] Work Phone: Comment on above: self 10-14-2019 08:30-0500 BMI (Body Mass Index) 24.1 kg/m2 Sally [facility] Work Phone: 10-14-2019 08:30-0500 Body Temperature 98.5 [degF] Sally [facility] Work Phone: 10-14-2019 08:30-0500 Body weight 69.76 kg Sally [facility] Work Phone: 10-14-2019 08:30-0500 BP Diastolic 78 mm[Hg] Sally [facility] Work Phone: 10-14-2019 08:30-0500 BP Systolic 132 mm[Hg] Sally [facility] Work Phone: 10-14-2019 08:30-0500 BSA (Body Surface Area) 1.81 m2 Sally [facility] Work Phone: 10-14-2019 08:30-0500 Height 170.18 cm Sally [facility] Work Phone: 10-14-2019 08:30-0500 Pulse (Heart Rate) 88 /min [facility] Work Phone: 10-14-2019 08:30-0500 Pulse Oximetry 98 % [facility] Work Phone: 10-14-2019 08:30-0500 Respiratory Rate 18 /min [facility] Work Phone: 10-14-2019 08:30-0500 SaO2% (BldA) [Mass fraction] 98 % Sally [facility] Work Phone: [facility] Work Phone: 09-04-2019 13:52-0500 BMI (Body Mass Index) 22.9 kg/m2 [facility] Work Phone: 09-04-2019 13:52-0500 Body Temperature 98.5 [degF] [facility] Work Phone: 09-04-2019 13:52-0500 Body weight 66.23 kg [facility] Work Phone: 09-04-2019 13:52-0500 BP Diastolic 90 mm[Hg] [facility] Work Phone: 09-04-2019 13:52-0500 BP Systolic 122 mm[Hg] [facility] Work Phone: 09-04-2019 13:52-0500 BSA (Body Surface Area) 1.77 m2 [facility] Work Phone: 09-04-2019 13:52-0500 Height 170.18 cm [facility] Work Phone: 09-04-2019 13:52-0500 Pulse (Heart Rate) 98 /min [facility] Work Phone: 09-04-2019 13:52-0500 Pulse Oximetry 98 % Sally [facility] Work Phone: 09-04-2019 13:52-0500 Respiratory Rate 18 /min Sally [facility] Work Phone: 09-04-2019 13:52-0500 SaO2% (BldA) [Mass fraction] 98 % [facility] Work Phone: [facility] Work Phone: 08-19-2019 09:32-0500 BMI (Body Mass Index) 23.2 kg/m2 [facility] Work Phone: 08-19-2019 09:32-0500 Body Temperature 98 [degF] Sally [facility] Work Phone: 08-19-2019 09:32-0500 Body weight 67.31 kg [facility] Work Phone: 08-19-2019 09:32-0500 BP Diastolic 80 mm[Hg] [facility] Work Phone: 08-19-2019 09:32-0500 BP Systolic 120 mm[Hg] [facility] Work Phone: 08-19-2019 09:32-0500 BSA (Body Surface Area) 1.78 m2 Sally [facility] Work Phone: 08-19-2019 09:32-0500 Height 170.18 cm [facility] Work Phone: 08-19-2019 09:32-0500 Pulse (Heart Rate) 90 /min [facility] Work Phone: 08-19-2019 09:32-0500 Pulse Oximetry 98 % Sally [facility] Work Phone: 08-19-2019 09:32-0500 Respiratory Rate 18 /min [facility] Work Phone: 08-19-2019 09:32-0500 SaO2% (BldA) [Mass fraction] 98 % Sally Morejon [facility] Work Phone: [facility] Work Phone: 07-28-2019 11:31-0400 BMI (Body Mass Index) 22.7 kg/m2 [facility] Work Phone: 07-28-2019 11:31-0400 Body Temperature 98.8 [degF] [facility] Work Phone: 07-28-2019 11:31-0400 Body weight 65.77 kg [facility] Work Phone: 07-28-2019 11:31-0400 BP Diastolic 84 mm[Hg] [facility] Work Phone: 07-28-2019 11:31-0400 BP Systolic 132 mm[Hg] [facility] Work Phone: 07-28-2019 11:31-0400 BSA (Body Surface Area) 1.76 m2 [facility] Work Phone: 07-28-2019 11:31-0400 Height 170.18 cm [facility] Work Phone: 07-28-2019 11:31-0400 Pulse (Heart Rate) 65 /min [facility] Work Phone: 07-28-2019 11:31-0400 Pulse Oximetry 97 % [facility] Work Phone: 07-28-2019 11:31-0400 Respiratory Rate 18 /min [facility] Work Phone: 07-28-2019 11:31-0400 SaO2% (BldA) [Mass fraction] 97 % Sally [facility] Work Phone: [facility] Work Phone: Encounters Encounter Date Encounter Type Care Provider Facility Start: 10-29-2023 Documentation procedure Chris Antonio LC Work Phone: Maternal- Medicine at [facility] Comment on above: Incoming Ca ll Start: 10-23-2023 Orders Only Angela Guzman PUBLIC HOUSING INTERVIEWER Mat ernal- Medicine at [facility] Comment on above: Multigravida of adva nced maternal age in second trimester (Primary Dx); Family history of autism; Family history of mental disorder Start: 10-22-2023 End: 10-22-2023 ambulatory ELIAZAR R NORMA [facility] Start: 10-22-2023 End: 10-22-2023 Telemedicine consultation with patient Katarina Antonio LC Work Phone: Maternal- Medicine at [facility] Comment on above: Multigravida of adva nced maternal age in second trimester (Primary Dx); Family history of autism; Family history of mental disorder Start: 10-08-2023 End: 10-08-2023 ambulatory ELIAZAR NORMA Not Available Start: 08-30-2023 End: 08-30-2023 ambulatory ELIAZAR NORMA Not Available Start: 05-29-2023 End: 05-29-2023 ambulatory Shayla Valle Other [employer] Other Start: 05-29-2023 Office outpatient vi sit 15 minutes Shayla Valle [facility] Start: 03-19-2023 End: 03-19-2023 ambulatory NON STAFF Facility:[facility] Start: 03-19-2023 End: 03-19-2023 Admission to same day surgery center BRAILLE TRANSCRIBER-C Shayla Valle Work Phone: [facility] Work Phone: Start: 03-19-2023 End: 03-19-2023 ambulatory NON STAFF [facility] Work Phone: Start: 02-12-2023 End: 02-12-2023 ambulatory Yoel Jarrett Other [facility] [email or web address] Other Start: 02-12-2023 Office outpatient ne w 30 minutes Yoel Jarrett [facility] Start: 02-09-2023 End: 02-10-2023 ambulatory PRADEEP COULTER Facility:[facility] Start: 02-07-2023 Office outpatient ne w 20 minutes Shayla Valle [facility] Start: 02-07-2023 End: 02-07-2023 ambulatory Shayla Valle [facility] [email or web address] Other Start: 02-07-2023 End: 02-07-2023 Patient encounter procedure BRAILLE TRANSCRIBER-C Shayla Valle Work Phone: [facility] Work Phone: Start: 12-27-2022 ambulatory PRADEEP COULTER Facil ity:[facility] Start: 12-16-2022 End: 12-17-2022 ambulatory PRADEEP STERNAntonJUVENAL Facility:[facility] Start: 07-04-2022 End: 07-05-[address] ELIAZAR CASTANEDA . Facility:[facility] Start: 06-08-2022 End: 07-01-[address] ELIAZAR CASTANEDA . Facility:[facility] Start: 05-23-2022 End: 05-23-[address] ELIAZAR CASTANEDA . Facility:[facility] Start: 05-22-2022 Encounter for preprocedural laboratory examination DR ELIAZAR CASTANEDA . [facility] Start: 05-19-2022 End: 05-20-[address] ELIAZAR CASTANEDA . Facility:[facility] Start: 05-19-2022 End: 05-20-2022 Encounter for preprocedural laboratory examination DR ELIAZAR CASTANEDA . Facility:[facility] Start: 05-18-2022 End: 05-19-[address] ELIAZAR CASTANEDA . Facility:[facility] Start: 05-03-2022 End: 05-04-[address] ELIZAAR CASTANEDA . Facility:[facility] Start: 05-03-2020 End: 05-03-2020 ambulatory Candace Grossman Work Phone: [facility] Work Phone: Start: 05-03-2020 End: 05-04-2020 Patient encounter procedure [facility] Start: 05-03-2020 End: 05-03-2020 Subsequent hospital visit by physician ARMANI SOLITARIO [facility] Start: 04-08-2020 End: 04-08-2020 ambulatory Linnea Escobar Work Phone: [facility] Work Phone: Start: 03-29-2020 End: 03-29-2020 General Emilee Sanford Work Phone: [facility] Work Phone: Start: 03-29-2020 End: 03-29-2020 Telemedicine consultation with patient Candace Grossman Work Phone: [facility] Work Phone: Start: 01-08-2020 End: 01-08-2020 Telemedicine consultation with patient Candace Grossman Work Phone: [facility] Work Phone: Start: 12-30-2019 End: 12-30-2019 Patient encounter procedure Emilee Sanford Work Phone: [facility] Work Phone: Start: 12-30-2019 End: 12-30-2019 Telemedicine consultation with patient Candace Grossman Work Phone: [facility] Work Phone: Start: 10-14-2019 End: 10-14-2019 Established patient Bobbi Colon Work Phone: [facility] Work Phone: Start: 09-04-2019 End: 09-04-2019 Established patient Bobbi Colon Work Phone: [facility] Work Phone: Start: 08-19-2019 End: 08-19-2019 Nursing evaluation of patient and report Candace Grossman Work Phone: [facility] Work Phone: Start: 07-28-2019 End: 07-28-2019 Established patient Bobbi Colon Work Phone: [facility] Work Phone: Start: 07-28-2019 End: 07-28-2019 New patient Candace Grossman Work Phone: [facility] Work Phone: Start: 08-13-2017 End: 08-14-2017 Ambulatory Upender Gehlot Facility:[facility] Procedures Date Procedure Procedure Detail Performing Clinician Start: 09-10-2023 Adult depression scr eening assessment Katarina Antonio [facility] Work Phone: Start: 03-19-2023 Esophagogastroduodenoscopy BRAILLE TRANSCRIBER-C Shayla Valle Work Phone: Start: 02-07-2023 X-ray of right knee BRAILLE TRANSCRIBER- C Shayla Valle Work Phone: Start: 05-03-2020 Obtaining screen pap smear Candace Grossman Work Phone: Start: 05-03-2020 Iaad ia chlamydia trachomatis CANDACE GROSSMAN Start: 05-03-2020 Iadna nirmala specie s direct probe tq CANDACE GROSSMAN Start: 05-03-2020 Iadna nirmala specie s direct probe tq Candace Grossman Work Phone: Start: 05-03-2020 Microscopic observat ion [Identifier] in Cervix by Cyto stain Katarina Antonio [facility] Work Phone: Start: 04-08-2020 Diast bp 80-89 mm hg Eva Escobar Work Phone: Start: 04-08-2020 Etonogestrel implant system Linnea Escobar Work Phone: Start: 04-08-2020 Insj non-biodegradab le drug delivery implant Linnea Escobar Work Phone: Start: 04-08-2020 Lidocaine 2% with Ep inephrine INJ (Xylocaine W/Epi) Linnea Escobar Work Phone: Start: 04-08-2020 Syst bp lt 130 mm hg Eva Escobar Work Phone: Start: 04-08-2020 Therapeutic prophyla ctic/dx injection subq/im Linnea Escobar Work Phone: Start: 03-29-2020 no recent change in medical history Sally Morejon [employer] Work Phone: Start: 03-29-2020 Psychotherapy w/howie ent 30 minutes Emileerichi Sanford Work Phone: Start: 01-08-2020 Patient gave verbal consent for telehealth Sally Morejon CNP Work Phone: Start: 10-14-2019 Diast bp <80 mm hg Levi e Dianelys Work Phone: Start: 10-14-2019 Psychotherapy w/howie ent 30 minutes Bobbi Colon Work Phone: Start: 10-14-2019 Syst bp ge 130 - 139mm hg Candace Grossman Work Phone: Start: 09-04-2019 Diast bp >/= 90 mm hg A max Grossman Work Phone: Start: 09-04-2019 Psychotherapy w/howie ent 30 minutes Bobbi Colon Work Phone: Start: 09-04-2019 Pt-focused hlth risk assmt score doc stnd instrm Candace Grossman Work Phone: Start: 09-04-2019 Syst bp lt 130 mm hg monico Grossman Work Phone: Start: 08-19-2019 Urine test visual color cmprsn meths Candace Grossman Work Phone: Start: 07-28-2019 Alcohol consumption screening Audit Alcohol Use Disorders Identification Test ___(0-40) Candace Grossman CNP Work Phone: Start: 07-28-2019 ANXIETY DISORDER NOS Ca ssie Jean-Pierre Start: 07-28-2019 ASTHMA Sally Tab er Start: 07-28-2019 DEPRESSION Sally Tab er Start: 07-28-2019 Diast bp 80-89 mm hg monico Grossman Work Phone: Start: 07-28-2019 History of influenza vaccination Sally Morejon Start: 07-28-2019 PSYCHIATRIC DISORDERS C gaviota Morejon Start: 07-28-2019 Psychotherapy w/howie ent 30 minutes [...] row has not occurred!Start: 07-28-2019 currently Sally Jean-Pierre Plan of Treatment Date Care Activity Detail Author Start: 01-25-2028 DTaP,Tdap and Td Vaccines (6 - Td or Tdap) DTaP,Tdap and Td Vaccines (6 - Td or Tdap) [facility] Start: 10-23-2024 End: 10-23-2024 Unlisted Lab Test Unlisted Lab Test Lab Routine Multigravida of advanced maternal age in second trimester Family history of autism Family history of mental disorder Expected: 10/23/2024 (Approximate), Expires: 10/23/2024 [facility] Work Phone: Comment on above: Expected: 10/23/2024 (Approximate), Expires: 10/23/2024 Start: 09-10-2024 Adult BMI Screening Adult BMI Screen ing [facility] Start: 09-10-2024 Depression Screening Depression Scre ening [facility] Start: 09-10-2024 Tobacco Screening Tobacco Screening [facility] Start: 11-20-2023 End: 11-20-2023 Patient encounter procedure 11/20/2023 8:00 AM EST Appointment [facility] - Ultrasound [address] [place] [address] [facility] - Ultrasound Start: 06-01-2023 Influenza vaccination Influenza Vacc ine [facility] Start: 05-03-2023 Screening for malign ant neoplasm of cervix Pap Smear [facility] Start: 03-19-2023 [facility] Start: 06-02-2020 [facility] Work Phone: Start: 06-01-2020 Influenza vaccination Flu vaccine (# 1) [place], [place] Start: 12-02-2019 Dental Comp Exam [facility] Work Phone: Start: 11-17-2019 Women's Health [facility] Work Phone: Start: 10-21-2019 Lipid 1996 panel Health [facility] Work Phone: Start: 10-14-2019 [facility] Work Phone: Comment on above: Note: Please make a referral to: Start: 09-16-2019 Dental Comp Exam [facility] Work Phone: Start: 08-25-2019 Medical Establ ished Patient [facility] Work Phone: Start: 08-20-2019 Urine Pregnanc y Test, In House Health [facility] Work Phone: Start: 2009 Screening for malign ant neoplasm of cervix Cervical cancer screen [place], [place] Start: 2007 DTaP/Tdap/Td vaccine (1 - Tdap) DTaP/Tdap/Td vaccine (1 - Tdap) [place], [place] Start: 2006 Adult BMI Follow Up Plan Adult BMI Follow Up Plan [facility] Start: 2003 HIV screening HIV screen [facility] [place], [place] Start: 1989 Varicella vaccine (1 of 2 - 2-dose childhood series) Varicella vaccine (1 of 2 - 2-dose childhood series) [place], [place] End: 05-03-2020 C.trachomatis N.gonorrhoeae DNA, Thin Prep C.trachomatis N.gonorrhoeae DNA, Thin Prep Microbiology Routine Once for 1 Occurrences starting 05/03/2020 until 05/03/2020 [place], [place] Comment on above: Once for 1 Occurrenc es starting 05/03/2020 until 05/03/2020 C.trachomatis N.gonorrhoeae DNA, Thin Prep C.trachomatis N.gonorrhoeae DNA, Thin Prep Microbiology Routine 05/03/2020 7:32 AM EDT [place], [place] Patient Education Hiatal Hernia (DC) [facility] Work Phone: Immunizations Immunization Date Immunization Notes Care Provider Fa dalia 05-11-2023 influenza virus vaccine, unspecified formulation Katarina Antonio [facility] Work Phone: [facility] [employer] Payers Date Payer Category Payer Self-pay 2022 Medicaid [facility] MEDICAID [facility] MEDICAID [id number] 2022-Present [address] [place] [address] [id number] 2019 Unknown 1 - [place] [employer] [id number] 2017 Unknown [id number] 1988 Unknown [id number] 1988 Unknown [id number] [id number] 1988 Unknown [id number] [id number] 1988 Unknown [id number] [id number] 1988 Unknown [id number] [id number] 1988 Unknown [id number] [id number] 1988 Unknown [id number] [id number] 1988 Unknown [id number] [id number] 1988 Unknown [id number] [id number] 1988 Unknown [id number] [id number] 1988 Unknown [id number] [id number] 1988 Unknown [id number] [id number] 1959 Medicaid [id number] [id number] Self-pay [id number] .[id number] Unknown [employer] [id number] Unknown [id number] Unknown [id number] Social History Date Type Detail Facility Assertion Alcohol consumpt ion screening (procedure) [facility] Work Phone: Assertion [facility] Assertion Finding of alcoh ol intake (finding) Health [facility] Work Phone: Assertion Sexually active (finding) Health [facility] Work Phone: Assertion Gender identity finding (finding) Health [facility] Work Phone: Assertion Finding of sexua l orientation (finding) [facility] Work Phone: Tobacco smoking status Unknown if ever smoked Health [facility] Work Phone: Assertion Emotional stress (finding) Health [facility] Work Phone: Start: 1990 Sex Assigned At Not on file [facility] [place], [place] Assertion Contraception (finding) [facility] Work Phone: Start: 03-12-2019 End: 09-10-2023 Sex Assigned At [facility] Start: 1990 Sex Assigned At Female [facility] Start: 04-05-2022 Tobacco smoking status NHIS Never smoked tobacco [facility] Start: 04-05-2022 Tobacco use and exposure Smokeless tobacco non-user [facility] Start: 10-10-2023 Alcohol intake Ex-drinker (finding) [facility] Start: 03-12-2019 End: 09-10-2023 History of Social function [facility] How hard is it for you to pay for the very basics like food, housing, medical care, and heating Very hard [facility] Start: 07-12-2023 [facility] NEGATED: Highlighted row Assertion He has not had 5 or more drinks in a day within the past year. 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 I was able to get this switched. Order is now updated to Horizon-421. I told the patient I would call her with results once received. They are estimated to be completed between 11/10-11/17. documented in this encounter [facility] 10-22-2023 History of Present illness Narrative Summary: [facility] Genetic Counseling Note Provider at different site/location than patient. I confirmed the patient is located in the [facility]. Vy Mckeon is currently at home and provider at remote site. The patient consented to be treated electronically via this form of telemedicine. This visit was not related to an office visit or procedure in the past 7 days, and in-office follow up is not recommended in the next 24 hours. Video Visit via Real-time Synchronous Audiovisual Provider Location: [facility] AT [address] [address] Patient Location: Patient's home Patient Location Superintendent Drilling: None Video Visit Consent Statement: I discussed risks, benefits, and alternatives of a real-time synchronous audiovisual consultation with the patient (and any accompanying persons) including the risks that the patient's personal health details and medical records will be discussed over real-time, synchronous, interactive video/audio/telecommunication technology, the visit will not be recorded without the express consent of both the provider and the patient, and that there are some limitations compared to [id number] evaluations. We elected to proceed. Name: Vy Mckeon : 1990 Date of Visit: 10/22/2023 Email: [email or web address] Preferred contact method: email Partner's Name: Bogdan Age: 32 Requesting Physician: Eliazar Castaneda, DO [address], [place] [address] Reason for Referral: Vy Mckeon is a 33 y.o. female who presented to [facility] Telemedicine Clinic. Vy is here at the request of Eliazar Castaneda DO due to advanced maternal age. Obstetric and history: Estimated Date of Delivery: 04/03/24 based on 08/20/2023 ultrasound at 9w2d gestation to confirm CLAUDETTE based on LMP. Gestational age: 16w4d OB History Para Term AB Living 2 1 SAB IAB Ectopic Multiple Live Births 1 # Outcome Date GA Lbr Prosper/2nd Weight Sex Delivery Anes PTL Lv 2 Current 1 SAB 05/2022 Current history is significant for: None reported Past /delivery complications: None reported Medical History: Past Medical History: Diagnosis Date ADHD Anxiety Asthma Asthma Depression Ms. Mckeon additionally reports a personal history of insomnia and bipolar disorder. She denied a personal history of diabetes, hypertension, hypothyroidism, infertility and other chronic medical conditions. Medications: No current outpatient medications or facility-administered medications were updated during this visit. Please review referring office's note for the most up to date patient medication list. Exposures/Complications: Alcohol: NO Drugs: NO Cigarettes: NO X-Rays/CT/radiation: NO Illnesses: NO Infections: NO Rashes: NO Spotting/bleeding: NO Other exposures: NO Testing already completed during current : First Trimester Screen: NO Maternal Serum Screen: NO Non Invasive Screen: YES - low risk Performing lab: [facility] (UN[facility] Screen) Conditions screened: Trisomy 13, Trisomy 18, Trisomy 21, sex chromosome aneuploidies sex predicted: male fraction: 10.1% Drawn on: 09/07/2023 Carrier Screening: NO CVS: NO Amniocentesis: NO TORCH Screening: YES Rubella Antibodies, IG.41 - immune HIV AB/P24 AG Screen: non-reactive HCV AB: non-reactive HBSAG Screen: negative Other screening/testing: YES GLYCOHEMOGLOBIN A1C: 5.1% Ultrasounds: Ultrasound on 08/30/2023 at 9w2d gestation showed: 1) Single live intrauterine . Family History / Pedigree: A three-generation family history was obtained for the patient and the father of the baby, Bogdan. History was provided by the patient report unless otherwise noted. Of significance, this is Vy and Bogdan's second together. Their first ended in miscarriage of unknown etiology around 12 weeks gestation. Vy reports her full sister has anxiety and asthma. Her paternal half brother and sister both have anxiety and depression. Her father has anxiety and depression, and her mother has anxiety, depression, and COPD (likely due to smoking). Of note, she has a niece with autism and intellectual disability. Vy additionally reports a paternal half niece and nephew with anxiety and depression. Other maternal family history was noncontributory to the genetics evaluation. Bogdan is a 32 year old male with anxiety and depression. Vy reports that his paternal half brother of a drug overdose at age 27. Other paternal family history was noncontributory to the genetics evaluation. Maternal ancestry: , Paternal ancestry: Consanguinity: denied The history was otherwise unremarkable for developmental delays or intellectual disability, other defects, neural tube defects, multiple miscarriages, stillborns or deaths, and other known genetic conditions. Pedigree to be scanned and viewable under the media tab. Information Discussed: Genetic Assessment: We discussed that whenever a woman is there is a 3-5% chance of having a child with some type of defect and/or developmental delay. Maternal age, maternal health history and family history can increase this risk. Certain ultrasound markers or anomalies can also increase the risk of an underlying chromosome anomaly or genetic syndrome. Based on her maternal age, Ms. Mckeon, the patient's midtrimester risk for Down syndrome is 1 in 272, Trisomy 18 is 1 in 1060, Trisomy 13 is 1 in 4000, and any chromosomal abnormality at term is 1 in 178 (from Perinatology calculator). As women age, so do their eggs, making pregnancies more prone to errors in cell division as women get older. The most common, viable aneuploidies include Down Syndrome (Trisomy 21), Trisomy 18, Trisomy 13 and differences in the sex chromosomes. Less than 50% of babies with Trisomy 21 survive postnatally, and about 50% show findings on ultrasound. If individuals with Trisomy 21 make it to term, they may present with some challenges including but not limited to heart defects, GI anomalies, intellectual and developmental disabilities, and a limited life span. About 10% of babies with Trisomy 18 or Trisomy 13 survive postnatally, and about 90% have defects identifiable on ultrasound. Most commonly, babies with Trisomy 18 or Trisomy 13 will not survive after 1 year of life due to severe defects. Most sex chromosome aneuploidies have milder symptoms if they survive such as mild developmental and learning disabilities, behavioral problems, and fertility issues. There are different modalities to screen and diagnose these problems antenatally. Some parents may choose to know this information to make a decision regarding termination of , prepared themselves for a baby with special needs, or they may opt not to have this information available antenatally. We reviewed Vy's non-invasive screening results in detail. This is a screening test that uses cell-free DNA (cfDNA, maternal and placental DNA in circulation) to screen for aneuploidies, and can be done at 10+ weeks gestation. This testing screens for common autosomal aneuploidies (Trisomy-21, Trisomy-18, Trisomy-13) and sex chromosome aneuploidies (Monosomy X (M-X), XXX, XXY, XYY). The fraction is calculated based on the cfDNA present in the sample, and sufficient placental DNA is needed to analyze the sample. This testing is nondiagnostic and should be interpreted with caution, as false positive results are possible. Vy's results indicate the is low risk for all chromosome conditions screened for. We additionally reviewed the family history of mental illness. Mental health disorders including bipolar disorder, schizophrenia, depression, anxiety, and others, are most commonly multifactorial disorders where genetic factors and environmental factors together play a role in the development of these disorders. The more closely related relatives a person has affected with a mental health disorder, the higher their risk might be to develop a mental health concern in their lifetime. Certain mental health disorders, such as schizophrenia and bipolar disorder, have significantly higher heritability estimates than others. These conditions show strong evidence for genetic susceptibility, but no sole genetic causes have been identified in most cases of isolated mental illness. At this time, there is no predictive genetic testing available for mental health disorders. ADHD is thought to be inherited similiarly to most mental illnesses, multifactorially, and often aggregates in families. Family studies report that first degree relatives of an affected individual are 2-5 times more likely to develop ADHD and second degree relatives are 0.5-3 times more likely. A large case-control family study reports rates as high as 26% recurrence risk in first degree relatives. Predictive genetic testing for ADHD and mental health disorders is not available at this time. A maternal family history of autism was also noted. Autism is an etiologically heterogeneous disorder that has been reported to cluster in some families. In some cases, autism is the result of an underlying chromosome abnormality, or single gene disorder (i.e. fragile X syndrome). In approximately 30-40% of autism cases, an underlying cause will be identified after a thorough genetic evaluation. The majority of cases are assumed to be multifactorial in inheritance, meaning both genetic and environmental factors increase an individual's susceptability to develop autism. Both advanced paternal and maternal age have been associated with an increased risk for autism. The specific diagnosis is essential for accurate risk assessment. Review of the medical records and evaluation by hospital medical assistant of the affected individual would be recommended. Based on published studies, suggested recurrence risk for full siblings is approximately 3-10%, although newer studies indicate that this risk may be higher. Modified for sex, the risks are 7% if the affected child is female and 4% if the affected child is male. These risks will increase with more affected individuals in the family. Risk assessments for children of individuals with autism are not available at this time. Without a known genetic cause for the autism, testing it not available at this time. Based on the risks to the , testing offered today included: Carrier Screening: Carrier screening is a type of genetic testing often utilized by those that are or desire that identifies individuals who are heterozygous (carry 1 mutation) in an autosomal recessive or X-linked condition. Carriers are typically asymptomatic and family history is not a good indicator of carrier status. There are many different options as far as how many different conditions can be screened for ranging from the most common conditions (hemoglobinopathies, SMA, and CF) to 500+ conditions. Risks, benefits, and limitations of carrier screening were discussed in detail. Results typically take 2-3 weeks to come back. Amniocentesis: This diagnostic testing is usually offered as an option for pregnancies after 15 weeks gestation after screening or ultrasound findings indicate an increased risk of aneuploidy, ONTDs, sex chromosome differences, or inheriting a genetic condition. This is invasive testing, meaning a needle guided by ultrasound is inserted into the maternal abdomen and amniotic fluid (the fluid surrounding the fetus), which includes DNA is collected and used for genetic testing. Amniocentesis can also measure the amount of AFP and other substances specific to open neural tube defects in the amniotic fluid.The risk of miscarriage, delivery, and infection is about 1 in 500 to 1 in 1500. We reviewed the options of rapid FISH analysis (for chromosomes 13, 18, 21, X and Y), karyotype, and SNP (single nucleotide polymorphism) chromosomal microarray analysis. SNP microarray is a high resolution test that can detect aneuploidy, triploidy, and small chromosomal gains or losses, known as copy number variants. Large regions of homozygosity can also be identified, indicating uniparental disomy or shared parental ancestry. A chromosomal microarray analysis may find changes/variants that are of unknown clinical significance. In addition, variants may be identified associated with adult onset conditions and increased risk for mental health disorders. A chromosomal microarray will not detect balanced or low-level mosaic chromosome changes, or single gene disorders. Normal results not guarantee the of a healthy baby. Rarely because of maternal cell contamination of the culture, cultured cells may not reflect the true status of the fetus. When a known variant or variants for a single gene disorder are identified in the family or there is high suspicion for a single gene disorder, diagnostic testing for those variants on the gene level are possible diagnostic testing. Plan of Care: 1. Verbal consent for carrier screening for [facility]-4. Patient's address was confirmed and a saliva kit will be sent to the patient's home address. 2. Amniocentesis discussed and declined. 3. Continue to monitor the via ultrasound. Anatomy scan to be completed 18-22 weeks gestation. 4. Recommended AFP to be drawn at 15-22 weeks gestation. 5. Patient diagnosis: advanced maternal age I personally spent 25 minutes in [id number] time with this patient. I provided genetic counseling services, including obtaining a structured family history, analysis of genetic and other risks, counseling of the patient, review of medical information, review of previous test results and discussion of genetic testing options. I discussed the benefits and limitations of genetic testing. I discussed the limitations of insurance coverage. If prior authorization is needed this may extend the turnaround time. The family was provided the opportunity to ask questions and all questions were answered. The family was encouraged to call or email their genetic counselor at [phone] or [email or web address] if any additional questions or concerns should arise. TAMMY Soto Licensed, Certified Genetic Counselor documented in this encounter [facility] 05-29-2023 Evaluation note Encounter Date Diagnosis Assessment Notes May, Thrush (ICD-10 - B37.0) Continue home medications as prescribed. Use the nystatin mouthwash as prescribed, swish and swallow. Follow-up with your family physician if no improvement in 2 to 3 days [facility] Other [facility]-19-2023 [facility] Encounter Date Diagnosis Assessment [...] educated on the importance of PPI optimization [facility] Other 05-10-2023 Evaluation note* Encounter Date Diagnosis [...] January, Other Contusion mater ial was printed [facility] Other 08-23-2022 NoteOPERATIVE NOTE OPERATION DATE: 05/23/2022 PROCEDURE: Suction D AND C. PREOPERATIVE DIAGNOSIS: Missed . POSTOPERATIVE DIAGNOSIS: Missed . ANESTHESIA: General. SURGEON: Eliazar Castaneda D.O. TEACHER DANCING: None. FINDING: Products of conception. SPECIMEN: Products [...] products of conception were removed using an 8-Tajik suction curette. Excellent hemostasis was noted. The patient tolerated the procedure well. Sponge, lap, and needle counts were correct x 2. All instruments were then removed from the patient's vagina. The patient was taken to the Recovery Room in stable condition. ??[facility] HealthcareEvaluation note Includes: Assessments for all patient encounters Findings Encounter Date Depressive disorder [facility] with Emilee Short [facility] 03/29/2020 Generalized anxiety disorder [facility] with Emilee Short [facility] 03/29/2020 Dysthymic disorder Established Patie nt with Bobbi Colon [facility] 10/14/2019 Generalized anxiety disorder Establis hed Patient with Bobbi Colon [facility] 10/14/2019 Z68.24 - Body mass index (BM I) 24.0-24.9 adult Medical Established Patient with Candace Grossman [facility] 10/14/2019 F34.1 - Dysthymic disorder Establishe d Patient with Bobbi Colon [facility] 09/04/2019 Generalized anxiety disorder Establis hed Patient with Bobbi Colon [facility] 09/04/2019 Body mass index Medical Established Patient with Candace Grossman [employer]ER[employer] MACHINE OPER[employer] 09/04/2019 Diabetes Risk Test Score was 0 score 09/04/2019 Medical Established Patient with Candace Grossman [facility] 09/04/2019 Body mass index Nurse Visit with Candace ECHEVARRIA P 08/19/2019 Diabetes Risk Test Score was 0 score 08/19/2019 Nurse Visit with Candace Grossman [employer]ATHERSTRIP MACHINE OPERATOR 08/19/2019 Generalized anxiety disorder BH Establis hed Patient with Bobbi Colon [facility] 07/28/2019 Severe recurrent major depre 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 features BH Established Patient with Bobbi Colon [facility] 07/28/2019 AUDIT alcohol use disorders identification test was six 07/28/2019 Medical New Patient with Candace Grossman WEATHERSTRIP MACHINE OPERATOR 07/28/2019 Diabetes Risk Test Score was 0 score 07/28/2019 Medical New Patient with Candace Grossman WEATHERSTRIP MACHINE OPERATOR 07/28/2019 ZAN-7 score was 21 07/28/2019 Medical Ne w Patient with Candace Grossman WEATHERSTRIP MACHINE OPERATOR 07/28/2019 PHQ-9: total score was 21 07/28/2019 Med ical New Patient with Candace Grossman [facility] 07/28/2019 Z68.22 - Body mass index (BM I) 22.0-22.9 adult Medical New Patient with Candace Grossman WEATHERSTRIP MACHINE OPERATOR 07/28/2019 Health [facility] Work Phone: Evaluation noteNo assessment information available [facility] Work Phone: Evaluation note* Diagnosis Onset Date Resolution Status GERD (gastroesophageal reflux disease) acute [facility] Work Phone: Evaluation note* Diagnosis Multigravida of advanced maternal age in second trimester- Primary Family history of autism Family history of mental disorder Family history of psychiatric condition [facility] Diagnosis Multigravida of advanced maternal age in second trimester- Primary Family history of autism Family history of mental disorder Family history of psychiatric condition documented in this encounter [facility] general Narrative - Reported* Type Description Date Medical History anxiety Medical History depression Medical History ADHD Surgical History D&C [facility] Other History general Narrative - Reported* Type Description Date Medical History anxiety Medical History depression Medical History ADHD Surgical History D&C 2021 [facility] Other History of Present illness Narrative History of Present Illness not supported for this document type No History of Present Illness [facility] Work Phone: Hospital Discharge instructions Additional Instructions [...] if you have any problems. -Office number [phone] Work Phone: Instructions Instructions not supported for this document type No [facility]ructions [facility] Work Phone: InstructionsNot on filedocumented in this encounter [facility]InstructionsNot on filedocumented in this encounter [facility] outcome Narrative Includes: Evaluations & Outcomes for active Goals No Outcomes RecordedHealth [facility] Work Phone: reason for referral (narrative)No Reason for Referral RecordedHealth [facility] Work Phone: reason for visit NarrativeUNCONTROLLED GERD//REFERRAL FROM VITO [facility] Other Reason for visit Narrative* Consultation (Routine) - Pending Review Specialty Diagnoses / Procedures Referred By Contac t Referred To Contact Maternal and Medicine Diagnoses Multigravida of advanced maternal age in second trimester Eliazar Castaneda, DO [address] , [place] [address] [facility] Maternal Med [address] [place] [address] Referral ID Status Reason Start Date Expiration Date Visits Requested Visits Authorized [id number] Pending Review Specialty Services Required 10/10/2023 10/09/2024 1 1 [facility] SystemReview of systems Narrative - Reported Review of Systems not supported for this document type No Review of Systems RecordedHealth [facility] Work Phone: Summary Purpose Family History Description Last Updated Paternal history of cardiovascular disor thuy 07/28/2019 Relationship Condition Age at Onset Recorded Date/T pia Not Specified Anxiety Unknown Chronic obstructive pulmonary disease Unk nown Advance Directives Documents on File Type Date Recorded 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 Advance Directives and Living Will Power of Traffic Circuit Engineer Advance Directive Response Recorded Date/ Time Advance [...] Assessments Findings Encounter Date Generalized anxiety disorder Establis hed Patient with Bobbi Colon [facility] 07/28/2019 Severe recurrent major depre 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 features Established Patient with Bobbi Colon [facility] 07/28/2019 AUDIT alcohol use disorders identification test was six 07/28/2019 Medical New Patient with Candace Grossman [facility] 07/28/2019 Diabetes Risk Test Score was 0 score 07/28/2019 Medical New Patient with Candace Dianelys WEATHERSTRIP MACHINE OPERATOR 07/28/2019 ZAN-7 score was 21 07/28/2019 Medical Ne w Patient with Candace Grossman WEATHERSTRIP MACHINE OPERATOR 07/28/2019 PHQ-9: total score was 21 07/28/2019 Med ical New Patient with Candace Houstonen WEATHERSTRIP MACHINE OPERATOR 07/28/2019 Z68.22 - Body mass index (BM I) 22.0-22.9 adult Medical New Patient with Candace Grossman WEATHERSTRIP MACHINE OPERATOR 07/28/2019 Findings Encounter Date F34.1 - Dysthymic disorder BH Establishe d Patient with Bobbi Colon [facility] 09/04/2019 Generalized anxiety disorder BH Establis hed Patient with Bobbi Colon [facility] 09/04/2019 Body mass index Medical Established Patient with Candace Grossman [facility] 09/04/2019 Diabetes Risk Test Score was 0 score 09/04/2019 Medical Established Patient with Candace Grossman [facility] 09/04/2019 Body mass index Nurse Visit with Candace Grossman P 08/19/2019 Diabetes Risk Test Score was 0 score 08/19/2019 Nurse Visit with Candace Grossman [facility] 08/19/2019 Generalized anxiety disorder Establis hed Patient with Bobbileif Colon [facility] 07/28/2019 Severe recurrent major depre 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 features Established Patient with Bobbi Colon [facility] 07/28/2019 AUDIT alcohol use disorders identification test was six 07/28/2019 Medical New Patient with Candace Grossman [facility] 07/28/2019 Diabetes Risk Test Score was 0 score 07/28/2019 Medical New Patient with Candace Grossman [facility] 07/28/2019 ZAN-7 score was 21 07/28/2019 Medical Ne w Patient with Candace Grossman [facility] 07/28/2019 PHQ-9: total score was 21 07/28/2019 Med ical New Patient with Candace Dianelys [facility] 07/28/2019 Z68.22 - Body mass index (BM I) 22.0-22.9 adult Medical New Patient with Candace Grossman WEATHERSTRIP MACHINE OPERATOR 07/28/2019 Findings Encounter Date Dysthymic disorder BH Established Patie nt with Bobbi Colon [facility] 10/14/2019 Generalized anxiety disorder BH Establis hed Patient with Bobbi Colon [facility] 10/14/2019 Z68.24 - Body mass index (BM I) 24.0-24.9 adult Medical Established Patient with Candace Grossman [facility] 10/14/2019 F34.1 - Dysthymic disorder BH Establishe d Patient with Bobbileif Colon [facility] 09/04/2019 Generalized anxiety disorder BH Establis hed Patient with Bobbileif Colon [facility] 09/04/2019 Body mass index Medical Established Patient with Candace Grossman [facility] 09/04/2019 Diabetes Risk Test Score was 0 score 09/04/2019 Medical Established Patient with Candace Grossman [facility] 09/04/2019 Body mass index Nurse Visit with aCndace Grossman P 08/19/2019 Diabetes Risk Test Score was 0 score 08/19/2019 Nurse Visit with Candace Dianelys [facility] 08/19/2019 Generalized anxiety disorder Establis hed Patient with Bobbi Colon [facility] 07/28/2019 Severe recurrent major depre 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 features BH Established Patient with Bobbi Colon [facility] 07/28/2019 AUDIT alcohol use disorders identification test was six 07/28/2019 Medical New Patient with Candace Grossman [facility] 07/28/2019 Diabetes Risk Test Score was 0 score 07/28/2019 Medical New Patient with Candace Grossman [facility] 07/28/2019 ZAN-7 score was 21 07/28/2019 Medical Ne w Patient with Candace Grossman [facility] 07/28/2019 PHQ-9: total score was 21 07/28/2019 Med ical New Patient with Canadce Grossman [facility] 07/28/2019 Z68.22 - Body mass index (BM I) 22.0-22.9 adult Medical New Patient with Candace Grossman [facility] 07/28/2019 Findings Encounter Date Visit for: contraceptive management [facility] with Linnea Luz [facility] 04/08/2020 Z68.24 - Body mass index (BM I) 24.0-24.9, adult [facility] with Linnea Luz WEATHERSTRIP MACHINE OPERATOR 04/08/2020 Depressive disorder [facility] Emilee Short [facility] 03/29/2020 Generalized anxiety disorder [facility] with Emilee Short [facility] 03/29/2020 Dysthymic disorder Established Patie nt with Bobbi Colon [facility] 10/14/2019 Generalized anxiety disorder Establis hed Patient with Bobbi Colon [facility] 10/14/2019 Z68.24 - Body mass index (BM I) 24.0-24.9 adult Medical Established Patient with Candace Grossman [facility] 10/14/2019 F34.1 - Dysthymic disorder BH Establishe d Patient with Bobbi Colon [facility] 09/04/2019 Generalized anxiety disorder BH Establis hed Patient with Bobbi Colon [facility] 09/04/2019 Body mass index Medical Established Patient with Candace Houstonen [facility] 09/04/2019 Diabetes Risk Test Score was 0 score 09/04/2019 Medical Established Patient with Candace Dianelys [facility] 09/04/2019 Body mass index Nurse Visit with Candace Grossman P 08/19/2019 Diabetes Risk Test Score was 0 score 08/19/2019 Nurse Visit with Candace Dianelys [facility] 08/19/2019 Generalized anxiety disorder BH Establis hed Patient with Bobbi Colon [facility] 07/28/2019 Severe recurrent major depre 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 features BH Established Patient with Bobbi Colon [facility] 07/28/2019 AUDIT alcohol use disorders identification test was six 07/28/2019 Medical New Patient with Candace Dianelys [facility] 07/28/2019 Diabetes Risk Test Score was 0 score 07/28/2019 Medical New Patient with Candace Dianelys [facility] 07/28/2019 ZAN-7 score was 21 07/28/2019 Medical Ne w Patient with Candace Grossman [facility] 07/28/2019 PHQ-9: total score was 21 07/28/2019 Med ical New Patient with Candace Dianelys [facility] 07/28/2019 Z68.22 - Body mass index (BM I) 22.0-22.9 adult Medical New Patient with Candace Grossman [facility] 07/28/2019 Findings Encounter Date Body mass index Nurse Visit with Candace Grossman P 08/19/2019 Diabetes Risk Test Score was 0 score 08/19/2019 Nurse Visit with Candace Dianelys [facility] 08/19/2019 Generalized anxiety disorder BH Establis hed Patient with Bobbileif Colon [facility] 07/28/2019 Severe recurrent major depre 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 features Established Patient with Bobbi Colon [facility] 07/28/2019 AUDIT alcohol use disorders identification test was six 07/28/2019 Medical New Patient with Candace Dianelys [facility] 07/28/2019 Diabetes Risk Test Score was 0 score 07/28/2019 Medical New Patient with Candace Dianelys [facility] 07/28/2019 ZAN-7 score was 21 07/28/2019 Medical Ne w Patient with Candace Dianelys [facility] 07/28/2019 PHQ-9: total score was 21 07/28/2019 Med ical New Patient with Candace Dianelys [facility] 07/28/2019 Z68.22 - Body mass index (BM I) 22.0-22.9 adult Medical New Patient with Candace Grossman WEATHERSTRIP MACHINE OPERATOR 07/28/2019 Findings Encounter Date Overweight [facility] with Candace Houstonen [facility] 05/03/2020 Z68.24 - Body mass index (BM I) 24.0-24.9, adult [facility] with Candace Grossman WEATHERSTRIP MACHINE OPERATOR 05/03/2020 Visit for: contraceptive management [facility] with Linnea Escobar [facility] 04/08/2020 Z68.24 - Body mass index (BM I) 24.0-24.9, adult [facility] with Linnea sEcobar [facility] 04/08/2020 Depressive disorder [facility] with Emilee Short [facility] 03/29/2020 Generalized anxiety disorder [facility] with Em[facility] Short [facility] 03/29/2020 Dysthymic disorder Established Patie nt with Bobbi Colon [facility] 10/14/2019 Generalized anxiety disorder Establis hed Patient with Bobbi Colon [facility] 10/14/2019 Z68.24 - Body mass index (BM I) 24.0-24.9 adult Medical Established Patient with Candace Dianelys [facility] 10/14/2019 F34.1 - Dysthymic disorder Establishe d Patient with Bobbi Colon [facility] 09/04/2019 Generalized anxiety disorder Establis hed Patient with Bobbi Colon [facility] 09/04/2019 Body mass index Medical Established Patient with Candace Grossman [facility] 09/04/2019 Diabetes Risk Test Score was 0 score 09/04/2019 Medical Established Patient with Candace Dianelys [facility] 09/04/2019 Body mass index Nurse Visit with Candace Grossman P 08/19/2019 Diabetes Risk Test Score was 0 score 08/19/2019 Nurse Visit with Candace Grossman [facility] 08/19/2019 Generalized anxiety disorder Establis hed Patient with Bobbi Colon [facility] 07/28/2019 Severe recurrent major depre 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 features Established Patient with Bobbi Colon [facility] 07/28/2019 AUDIT alcohol use disorders identification test was six 07/28/2019 Medical New Patient with Candace Dianelys [facility] 07/28/2019 Diabetes Risk Test Score was 0 score 07/28/2019 Medical New Patient with Candace Grossman WEATHERSTRIP MACHINE OPERATOR 07/28/2019 ZAN-7 score was 21 07/28/2019 Medical Ne w Patient with Candace Grossman WEATHERSTRIP MACHINE OPERATOR 07/28/2019 PHQ-9: total score was 21 07/28/2019 Med ical New Patient with Candace Grossman WEATHERSTRIP MACHINE OPERATOR 07/28/2019 Z68.22 - Body mass index (BM I) 22.0-22.9 adult Medical New Patient with Candace Grossman WEATHERSTRIP MACHINE OPERATOR 07/28/2019 Instructions Instructions not supported for this [...] section and content) DATE CREATED AUTHOR 03/26/2018 [facility] DATE CREATED AUTHOR AUTHOR'S ORGANIZ ATION 05/07/2020 [facility] DATE CREATED AUTHOR AUTHOR'S ORGANIZ ATION 02/10/2023 [facility] DATE CREATED AUTHOR AUTHOR'S ORGANIZ ATION 03/28/2023 [facility] DATE CREATED AUTHOR AUTHOR'S ORGANIZ ATION 10/09/2023 [facility] DATE CREATED AUTHOR AUTHOR'S ORGANIZ ATION 10/23/2023 [facility] Evaluations & Outcomes (unre cognized section and [...] FOR VISIT (unrecogniz ed section and content) Reason Onset Date Comments Incoming Call 10/29/2023 Care Teams (unrecognized sec tion and content) Team Status: Inactive Member Role Status Dates ESTELITA SpannC Attending Provider Active Team Status: Active Member Role Status Dates NON STAFF Primary Care Provider Active Team Status: Inactive Member Role Status Dates Karan Beaulieu MD Attending Provider Active NON STAFF Primary Care Provider Active Doctor Of Naturopathic Medicine Relationship Specialty Start Date End Date Freddie Velazquez APRN-CNP PCP - General Nurse Practitioner 07/30/23 Doctor Of Naturopathic Medicine Relationship Specialty Start Date End Date Freddie Velazquez APRN-CNP PCP - General Nurse Practitioner 07/30/23 Doctor Of Naturopathic Medicine Relationship Specialty Start Date End Date Freddie Velazquez APRN-WEATHERSTRIP MACHINE OPERATOR PCP - General Nurse Practitioner 07/30/23 Goals (unrecognized section and content) Goals may [...] BE BASED ON THE PRIMARY CLINICAL RECORDS. [employer] provides no warranty or guarantee of the accuracy or completeness of information in this document.
[2023-11-16 00:08] LABS: AFP Value 93.4 ng/mL (.); Gest. Age on Collection Date 19.9 weeks (.); Gestat. Age Based On Ultrasound (.); Insulin Dep Diabetes No (.); Maternal Age At EDD 35.9 yr (.); OSBR Risk 1 IN 1162 (.); Results Report (.)
== END 2023-11-12 13:45 | disposition home or self-care (01) ==
LOC: LAB 13:45
PROVIDERS: Visit Provider Obstetrics & Gynecology
DX: Z34.92 Encounter for supervision of normal pregnancy, unspecified, second trimester (principal)
CPT/HCPCS: 36415; 82105

== ENCOUNTER 2023-12-11 08:43 | Outpatient (OUT) | payer MEDICAID, SELFPAY ==
[2023-12-11 10:14] LABS: Basophils Percent Auto 0.3 % (0.2-2.0); Eosinophils Absolute Auto 0.1 10^3/uL (0.0-0.7); Eosinophils Percent Auto 1.2 % (0.9-7.0); Hematocrit 34.2 % (36.0-48.0); Hemoglobin 11.2 g/dL (12.0-16.0); Immature Granulocytes Abs Auto 0.04 10^3/uL (0.00-0.03); Immature Granulocytes Pct Auto 0.4 % (0.0-0.5); Lymphocytes Absolute Auto 1.1 10^3/uL (1.2-3.8); Lymphocytes Percent Auto 12.1 % (20.5-60.0); Mean Corpuscular HGB Conc 32.7 g/dL (29.9-35.2); Mean Corpuscular Hemoglobin 30.1 pg (26.7-34.0); Mean Corpuscular Volume 91.9 fL (81.0-99.0); Mean Platelet Volume 10.1 fL (9.5-13.5); Monocytes Absolute Auto 0.4 10^3/uL (0.3-0.8); Monocytes Percent Auto 4.5 % (1.7-12.0); Neutrophils Absolute Auto 7.6 10^3/uL (1.4-6.5); Neutrophils Percent Auto 81.5 % (43.0-75.0); Platelet Count 229 10^3/uL (150-450); Red Blood Count 3.72 10^6/uL (4.20-5.40); Red Cell Distribution Width 13.5 % (11.0-15.0); White Blood Count 9.3 10^3/uL (4.0-11.0)
[2023-12-11 10:21] LABS: Glucose 1 Hour 102 mg/dL (<130)
== END 2023-12-11 08:44 | disposition home or self-care (01) ==
LOC: LAB 08:45
PROVIDERS: Visit Provider Obstetrics & Gynecology
DX: Z13.1 Encounter for screening for diabetes mellitus (principal)
CPT/HCPCS: 36415; 82950; 85025

== ENCOUNTER 2024-02-11 07:16 | Outpatient (OUT) | payer MEDICAID, SELFPAY ==
--- OUTSIDE RECORDS SUMMARY | 2024-02-11 07:22 | XMS_ITS | CCD ---
Author Organization [facility] Care Team Providers Care Inclusion Special Education Teacher Name Role Phone Gehlot, Upender Unavailable Unavailable Gehlot, Upender Unavailable Unavailable EMPERATRIZ CERNA Unavailable Unavailable Sally Morejon Primary Care Provider Unavailable Primary Care Provider UnavailCANDACE Dubon Referring Unavailable Sally Morejon Primary Care Provider Sally Morejon CNP Primary Care Provider [phone] Shayla Valle Unavailable JUMANA Valle Attending Provider AICHHOLZ, CHIEF COMPRESSOR STATION ENGINEER VITO Admitting Unavailable AICHHOLZ, CHIEF COMPRESSOR STATION ENGINEER VITO Attending Unavailable AICHHOLZ, CHIEF COMPRESSOR STATION ENGINEER VITO Primary Care Unavailable AICHHOLZ, CHIEF COMPRESSOR STATION ENGINEER VITO Consulting Unavailable NORMA ., DR JIN Admitting Unavailable NORMA ., DR JIN Attending Unavailable AICHHOLZ, CHIEF COMPRESSOR STATION ENGINEER VITO Primary Care Unavailable NORMA ., DR JIN Consulting Unavailable RONAK, DR BOBBI Bianchi Consulting Unavailable NORMA ., DR JIN Admitting Unavailable NORMA ., DR JIN Attending Unavailable AICHHOLZ, CHIEF COMPRESSOR STATION ENGINEER VITO Primary Care Unavailable NORMA ., DR JIN Consulting Unavailable RONAK, DR BOBBI Bianchi Consulting Unavailable NORMA ., DR JIN Admitting Unavailable NORMA ., DR JIN Attending Unavailable AICHHOLZ, CHIEF COMPRESSOR STATION ENGINEER VITO Primary Care Unavailable NORMA ., DR JIN Consulting Unavailable AICHHOLZ, CHIEF COMPRESSOR STATION ENGINEER VITO Admitting Unavailable AICHHOLZ, CHIEF COMPRESSOR STATION ENGINEER VITO Attending Unavailable AICHHOLZ, CHIEF COMPRESSOR STATION ENGINEER VITO Primary Care Unavailable NORMA ., DR JIN Admitting Unavailable NORMA ., DR JIN Attending Unavailable AICHHOLZ, CHIEF COMPRESSOR STATION ENGINEER VITO Primary Care Unavailable NORMA ., DR JIN Consulting Unavailable NORMA ., DR JIN Admitting Unavailable NORMA ., DR JIN Attending Unavailable AICHHOLZ, CHIEF COMPRESSOR STATION ENGINEER VITO Primary Care Unavailable NORMA ., DR JIN Consulting Unavailable AGUBOSIM, WADE Consulting Unavailable SOFI XIAO Consulting Unavailable NORMA ., DR JIN Admitting Unavailable NORMA ., DR JIN Attending Unavailable AICHHOLZ, CHIEF COMPRESSOR STATION ENGINEER VITO Primary Care Unavailable NORMA ., DR JIN Consulting Unavailable AICHHOLZ, CHIEF COMPRESSOR STATION ENGINEER VITO Admitting Unavailable AICHHOLZ, CHIEF COMPRESSOR STATION ENGINEER VITO Attending Unavailable AICHHOLZ, CHIEF COMPRESSOR STATION ENGINEER VITO Primary Care Unavailable WEST, DR JO-ANN Nicolas Consulting Unavailable AICHHOLZ, CHIEF COMPRESSOR STATION ENGINEER VITO Consulting Unavailable Yoel Jarrett Unavailable MD Karan Romero Attending Provider [phone] NON STAFF Primary Care Provider Unavailabl e NON STAFF Primary Care Unavailable Karan Romero Attending Unavailabl Karan Osuna Admitting Unavailabl e Shayla Valle Attending Unavailable Shayla Valle Admitting Unavailable Delgado CIGAR HEAD HOLER-CHIEF COMPRESSOR STATION ENGINEER, Freddie Primary Care Provider Unavailable Primary Care Provider Unavailabl e DELGADO, FREDDIE Attending Unavailable DELGADO, FREDDIE Referring Unavailable DELGADO, FREDDIE Primary Care Unavailable ROJAS, FIDENCIO Attending Unavailable DELGADO, FREDDIE Referring Unavailable DELGADO, FREDDIE Primary Care Unavailable Delgado, Freddie Primary Care Provider GURJIT ROBIN Attending Unavailable DELGADO, FREDDIE Referring Unavailable DELGADO, FREDDIE Primary Care Unavailable Delgado, Freddie Primary Care Provider BRANDI FIDENCIO Attending Unavailable NORMA, ELIAZAR R Referring Unavailable DELGADO, FREDDIE Primary Care Unavailable ADILENE CESPEDES Attending Unavailable NORMA, ELIAZAR R Referring Unavailable DELGADO, FREDDIE Primary Care Unavailable NORMA, ELIAZAR R Referring Unavailable DELGADO, FREDDIE Primary Care Unavailable GERRY CASTANEDAY Attending Unavailable DIONNE XIAO Attending Unavailable GERRY CASTANEDAY Attending Unavailable NORMA, ELIAZAR Attending Unavailable DIONNE XIAO Attending Unavailable CANDACE MORAN Admitting Unavailable DEANCANDACE RASMUSSEN Attending Unavailable [facility], FREDDIE Primary Care Unavailable FIDENCIO ROJAS Referring Unavailable DELGADO, [facility] Primary Care Unavailable USMAN GOLDBERG Attending Unavailable DELGADO, FREDDIE Primary Care Unavailable FRANSICO SHARP Attending Unavailable DELGADO, FREDDIE Primary Care Unavailable DELGADO, FREDDIE Primary Care Unavailable FRANSICO SHARP Referring Unavailable ANA PEOPLES Attending Unavailab le DELGADO, FREDDIE Primary Care Unavailable ANA PEOPLES Attending Unavailab le Allergies Allergy Classification Reported Allergen(s) Allergy Type Date of Onset Reaction(s) Facility (13 sources) Penicillins (Antibiotic) Allergy to substance 9 [facility] Work Phone: (8 sources) [facility] Drug Allergy 0 [facility] Work Phone: (6 sources) Penicillin G Drug Allergy 3 Hives [facility] Work Phone: (1 source) Penicillin Drug Allergy [facility] (6 sources) Penicillins; Translations: [PENICILLINS] Drug allergy (disorder) 2 [facility] (20 sources) Penicillins Propensity to adverse reactions to drug 2 Other (See Comments), Unknown [facility] (3 sources) Penicillins Drug Allergy 2 Unknown [facility] Medications Current Medications Medication Drug Class(es) Dates Sig (Normalized) Sig (Original) [id number] 200 actuat albuterol 0.09 mg/actuat metered dose inhaler (20 sources) beta2-Adrenergic Agonist Start: 11-02-2023 take 2 puff(s) by inhalation every six hours as needed albuterol HFA (PROVENTIL HFA, VENTOLIN HFA) 90 mcg/actuation inhaler Inhale 2 Puffs as instructed every 6 hours as needed. 0 11/02/2023 Active Start: 07-30-2023 take 2 puff(s) by in halation every six hours as needed for wheezing [...] Aerosol Solution 12/30/2019 Provider: Candace Grossman CNP Comment on above: Inhale 2 Puffs as in structed every 6 hours as needed. aspirin 81 mg chewable tablet (20 sources) Platelet Aggregation Inhibitor, Nonsteroidal Anti-inflammatory Drug aspirin 81 mg chewable tablet Take 81 mg by mouth. 0 Active Comment on above: Take 81 mg by mouth. buPROPion hydrochloride 100 mg oral tablet (2 sources) Aminoketone Start: take 150 mg by mouth once daily Bupropion Hcl Active 150 MG PO Daily March 16, 2023 12:00am take 1 tablet by leda th every twenty-four hours Wellbutrin XL 150 MG 1 tablet in the morning Orally Once a day Active Crutches Underarm Crutches (1 source) Start: 02-07-2023 Crutches Underarm Crutches January, Active diphenhydrAMINE (11 sources) Histamine-1 Receptor Antagonist Start: 12-10-2023 diphenhydramine HCl (UNISOM, DIPHENHYDRAMINE, ORAL) doxylamine succinate 25 mg oral tablet (1 source) Start: 12-17-2023 take 1 tablet by mouth once daily as needed for sleep doxylamine (UNISOM) 25 mg tablet Take 1 tablet (25 mg total) by mouth nightly as needed for sleep. 30 tablet 1 12/17/2023 Active {21 (drospirenone 3 MG / ethinyl estradiol 0.03 MG Oral Tablet) / 7 (inert ingredients 1 MG Oral Tablet) } Pack [Ocella 28 Day] (20 sources) Progestin, Estrogen Start: 03-29-2020 Ocella 3-0.03 MG Oral Tablet 03/29/2020 Provider: Candace Grossman [...] Sha mpoo 03/29/2020 Provider: Candace Grossman CNP magnesium oxide 400 mg oral tablet (16 sources) Start: 11-12-2023 End: 11-11-2024 magnesium oxide (MAG-OX) 400 mg (241.3 mg magnesium) tablet Take 400 mg by mouth. 0 11/12/2023 11/11/2024 Active Comment on above: Take 400 mg by mouth . nystatin [id number] unt/ml oral suspension (1 source) Polyene Antifungal Start: 05-29-2023 take 5 mL by mouth three times daily Nystatin [id number] UNIT/ML 5 ml Mouth/Throat 3 times a day for 10 days swish and swallow May, Active omeprazole 40 mg delayed release oral capsule (20 sources) Proton Pump Inhibitor Start: 07-30-2023 take [...] MG PO Daily March 16, 2023 12:00am omeprazole magne sium (ACID ROCK CRUSHER, OMEPRAZOLE, ORAL) Take by mouth as directed. 0 Active Comment on above: Take by mouth as dir ected. ondansetron 4 mg disintegrating oral tablet (20 sources) Serotonin-3 Receptor Antagonist Start: 12-20-2023 ondansetron orally disintegrating (ZOFRAN ODT) 4 mg disintegrating tablet take 1 tablet by leda th every eight hours as needed for nausea and vomiting ondansetron ODT (ZOFRAN ODT) 4 mg disintegrating tablet Dissolve 1 tablet (4 mg total) on tongue every 8 (eight) hours as needed for nausea or vomiting. 0 Active PNV no.95/ferrous fum/folic ac ( ORAL) (12 sources) PNV no.95/ferrou s fum/folic ac ( ORAL) Take by mouth as directed. 0 Active Comment on above: Take by mouth as dir ected. -fvcq-daeyv- omega3 29-1-400 mg combo pack,tablet & cap,DR (9 sources) pudubwye63-sftq- folic -omega3 29-1-400 mg combo pack,tablet & DR alex Take by mouth. 0 Active pyridoxine hydrochloride 25 mg oral tablet (1 source) Start: 4 take 1 tablet by mouth three times daily as needed for nausea pyridoxine, vitamin B6, (vitamin B-6) 25 mg tablet Take 1 tablet (25 mg total) by mouth 3 (three) times a day as needed (nausea). 90 tablet 1 12/17/2023 Active sertraline 25 mg oral tablet (10 sources) Serotonin Reuptake Inhibitor Start: 3 End: 4 take 1 tablet by mouth in the morning sertraline (ZOLOFT) 25 mg tablet Take 1 tablet (25 mg total) by mouth in the morning. 30 tablet 2 08/01/2023 11/20/2023 Discontinued (Therapy completed) Start: 03-16-2023 take 100 mg by mouth [...] Grossman CNP valACYclovir 500 mg oral tablet (20 sources) Herpesvirus Nucleoside Analog DNA Polymerase Inhibitor, Herpes Simplex Virus Nucleoside Analog DNA Polymerase Inhibitor, Herpes Zoster Virus Nucleoside Analog DNA Polymerase Inhibitor Start: 12-03-2022 valACYclovir (VALTREX) 500 mg tablet 24 hr venlafaxine 150 mg extended release [...] mg/ml oral solution (4 sources) Phenothiazine, Uncompetitive J-kvoams-D-aspartat e Receptor Antagonist, Sigma-1 Agonist Start: 01-08-2020 [...] (2 sources) Progestin Start: 04-08-2020 Nexplanon 68 MG SC IMPL Enctr for init prescription of implntbl subdermal contracep 04/08/2020 Linnea Escobar CHIEF COMPRESSOR STATION ENGINEER Comment on above: Patient tolerated th erapy well. No signs or symptoms of adverse reactions. iv contrast (will be provided with radiology test) (3 sources) Start: 01-23-2024 End: 01-23-2024 inject 1 dose intravenously once, then inject 1 dose intravenously once iv contrast (will be provided with radiology test) Indications: Malignant melanoma of skin (HCC) Inject 1 Each intravenously one time only for [address] Neck W IVCON No IV access, insert saline lock prior to the sedation, infusion, injection for imaging exam. Discontinue saline lock post exam. If Pt. has a central line or IVAD, may access for administration according to line specific nursing protocol. Once exam is complete flush line and de-access according to line specific nursing protocol in the CT contrast administration guidelines link. 1 Each 0 01/23/2024 01/23/2024 Start: 01-23-2024 End: 01-24-2024 iv contrast (will be provide d with radiology test) Indications: Malignant melanoma of skin (HCC) CT Chest W -Inject, intravenously, once for 1 dose.No IV access, insert saline lock prior to the beginning of sedation, infusion, injection of imaging exam. Discontinue saline lock post exam. If Pt. has a central line or IVAD, may access for administration according to line specific nursing protocol. Once exam is complete flush line and de-access according to line specific nursing protocol in the CT contrast administration guidelines link. 1 Each 0 01/23/2024 01/24/2024 Start: 01-23-2024 End: 01-24-2024 iv contrast (will be provide d with radiology test) Indications: Malignant melanoma of skin (HCC) CT Chest W -Inject, intravenously, once for 1 dose.No IV access, insert saline lock prior to the beginning of sedation, infusion, injection of imaging exam. Discontinue saline lock post exam. If Pt. has a central line or IVAD, may access for administration according to line specific nursing protocol. Once exam is complete flush line and de-access according to line specific nursing protocol in the CT contrast administration guidelines link. 1 Each 0 01/23/2024 01/24/2024 Active Magnesium (3 sources) take 1 tablet by [...] [Generalized anxiety disorder] Onset: 07-28-2019 Chronic Asthma (20 sources) Mild intermittent asthma with (acute) exacerbation; Translations: [Unspecified asthma, uncomplicated] Onset: 07-28-2019 02-13-2023 Chronic Attention-deficit, conduct, and disruptive behavior disorders (9 sources) Attention deficit hyperactivity disorder, predominantly inattentive type; Translations: [Attention-deficit hyperactivity disorder, predominantly inattentive type] Onset: 07-30-2023 07-30-2023 Chronic Attention-deficit, conduct, and disruptive behavior disorders (3 sources) Attention deficit hyperactivity disorder; Translations: [Attention-deficit hyperactivity disorder, unspecified type] Onset: 02-13-2023 02-13-2023 Chronic Esophageal disorders (14 sources) Gastroesophageal reflux disease; Translations: [Gastro-esophageal reflux disease without esophagitis] Onset: 03-19-2023 Chronic Headache; including migraine (9 sources) Chronic cluster headache; Translations: [Chronic cluster headache, not intractable] Onset: 01-21-2024 11-12-2023 Chronic Hemorrhage during ; abruptio placenta; placenta previa (19 sources) Placenta previa; Translations: [Complete placenta previa NOS or without hemorrhage, second trimester] Onset: 11-20-2023 11-20-2023 Episodic Immunizations and screening for infectious disease (2 sources) Exposure to sexually transmissible disorder; Translations: [Contact with and (suspected) exposure to infections with a predominantly sexual mode of transmission] 11-08-2023 Episodic Melanomas of skin (6 sources) Malignant melanoma of skin; Translations: [Malignant melanoma of skin, unspecified] Onset: 12-26-2023 12-28-2023 Chronic Menstrual disorders (4 sources) Irregular menstruation, unspecified; Translations: [IRREGULAR MENSTRUATION UNSPECIFIED] Onset: 05-18-2022 Chronic Miscellaneous mental health disorders (11 sources) Psychophysiologic insomnia; Translations: [Psychophysiologic insomnia] Onset: 07-30-2023 07-30-2023 Chronic Mood disorders (20 sources) Severe recurrent major depre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 features; Translations: [Dysthymia] Onset: 07-28-2019 Chronic Mycoses (1 source) Candidal stomatitis Episodic Nausea and vomiting (1 source) Nausea and vomiting; Translations: [Nausea with vomiting, unspecified] 12-17-2023 Episodic Other complications of (5 sources) Multigravida of advanced maternal age; Translations: [Supervision of elderly multigravida, second trimester] 10-22-2023 Episodic Other complications of (2 sources) Supervision of elderly multigravida, second trimester; Translations: [Supervision of elderly multigravida, second trimester] Onset: 11-20-2023 Episodic Other complications of (1 source) Malformation of placenta, unspecified, unspecified trimester; Translations: [Malformation of placenta, unspecified, unspecified trimester] Onset: 01-25-2024 Episodic Other female genital disorders (2 sources) Vaginal discharge; Translations: [Other specified noninflammatory disorders of vagina] 11-08-2023 Episodic Other lower respiratory disease (1 source) Snoring; Translations: [Snoring] Onset: 01-14-2024 Episodic Other non-epithelial cancer of skin (8 sources) Malignant neoplasm of skin; Translations: [Unspecified malignant neoplasm of skin, unspecified] Onset: 01-21-2024 01-21-2024 Episodic Other non-traumatic joint disorders (1 source) [...] INDEX BMI 30.0-30.9 ADULT] Onset: 05-26-2022 Chronic Other conditions (1 source) [place] affected by other morphological and functional abnormalities of placenta; Translations: [ affected by other morphological and functional abnormalities of placenta] Onset: 01-25-2024 Episodic Other and delivery including normal (5 sources) Second trimester ; Translations: [Encounter for supervision of normal , unspecified, second trimester] Onset: 10-08-2023 11-08-2023 Episodic Other screening for suspected conditions (not mental disorders or infectious disease) (20 sources) Encounter for screening for diabetes mellitus; Translations: [Diabetes Risk Test Score] Onset: 07-28-2019 Episodic Residual codes; unclassified (1 source) Other hypersomnia; Translations: [Other hypersomnia] Onset: 01-14-2024 Chronic Residual codes; unclassified (3 sources) Family history of autism; Translations: [Family history of other mental and behavioral disorders] 10-22-2023 Episodic Residual codes; unclassified (3 sources) Family history of mental disorder; Translations: [Family history of other mental and behavioral disorders] 10-22-2023 Episodic Residual codes; unclassified (1 source) Gestation period, 20 weeks; Translations: [20 weeks gestation of ] 11-20-2023 Episodic Residual codes; unclassified (1 source) Family history of other mental and behavioral disorders; Translations: [Family history of other mental and behavioral disorders] Onset: 01-25-2024 Episodic Residual codes; unclassified (1 source) 30 weeks gestation of ; Translations: [30 weeks gestation of ] Onset: 01-25-2024 Episodic Superficial injury; contusion (1 source) Contusion of right knee, initial encounter Episodic Unclassified (1 source) CONTACT W/AND (SUSP) EXPOS COVID-19; Translations: [CONTACT W/AND (SUSP) EXPOS COVID-19] Onset: 05-22-2022 Unclassified (1 source) Pain in right knee; Translations: [Pain in right knee] Onset: 02-07-2023 Unclassified (3 sources) OB Reminders Onset: 09-01-2023 09-01-2023 Unclassified (4 sources) No additional problems on file Unclassified (1 source) Advanced Maternal Age Onset: 01-25-2024 Unclassified (1 source) Decreased Movement Onset: 01-29-2024 Past or Other Problems Problem Classification Problem Date Documented Date Episodic/Chronic Diabetes mellitus without complication (13 sources) Diabetes mellitus without complication; Translations: [Questionnaires Phq-9 Total Score] Onset: 07-28-2019 Mood disorders (11 sources) Major depressive disorder, single episode, unspecified; Translations: [Mood disorders] Onset: 03-29-2020 09-10-2023 Other complications of (5 sources) Missed ; Translations: [MISSED ] Onset: 05-22-2022 Episodic Other complications of (1 source) Blighted ovum and nonhydatidiform mole; Translations: [BLIGHTED OVUM NONHYDATIDIFORM MOLE] Onset: 05-29-2022 Episodic Other complications of (10 sources) Elderly primigravida; Translations: [Supervision of elderly primigravida, unspecified trimester] Onset: 10-08-2023 10-08-2023 Episodic Ovarian cyst (1 source) Unspecified ovarian cyst, left side; Translations: [UNSPECIFIED OVARIAN CYST LEFT SIDE] Onset: 05-29-2022 Episodic Residual codes; unclassified (8 sources) Finding of body mass index; Translations: [Body mass index [BMI]] Onset: 07-28-2019 Episodic Residual codes; unclassified (4 sources) Other specified postprocedural states; Translations: [OTH SPECIFIED POSTPROCEDURAL STATES] Onset: 07-04-2022 Episodic Residual codes; unclassified (3 sources) Insomnia; Translations: [Insomnia, unspecified] Onset: 02-13-2023 02-13-2023 Episodic Unclassified (20 sources) Finding of body mass index; Translations: [Body Mass Index] Onset: 07-28-2019 Unclassified (13 sources) Assessment using generalized anxiety disorder 7 item score; Translations: [Questionnaires Zan-7 Score] Onset: 07-28-2019 Unclassified (2 sources) Contraception care management; Translations: [Visit For: Contraceptive Management] Onset: 04-08-2020 Results Test Name Value Interpretation Reference Range Facility COMPLETE BLOOD COUNTon 01-28 Erythrocyte distribution width (RBC) [Ratio] 13.6 % Normal 11.5-15.0 [facility] Comment on above: Performed By: #### C JEAN, 2532-0, CBC, 3084-1 #### [facility] ([id number]) [address] [place] [address]160 Hematocrit (Bld) [Volume fraction] 29.4 % Low 35-47 [facility] Comment on above: Performed By: #### Adri PENA, 2532-0, CBC, 4-1 #### [facility] ([id number]) [address] [place] [address] 07577 Hemoglobin (Bld) [Mass/Vol] 10.4 g/dL Low 11.7-15.5 [facility] Comment on above: Performed By: #### Adri PENA, 2532-0, CBC, 3084-1 #### [facility] ([id number]) [address] [place] [address] 95361 MCH (RBC) [Entitic mass] 31.0 pg Normal 27-34 [facility] Comment on above: Performed By: #### C JEAN, 2532-0, CBC, 3084-1 #### [facility] ([id number]) [address] [place] [address] 25304 MCHC (RBC) [Mass/Vol] 35.3 g/dL Normal 32-36 [facility] Comment on above: Performed By: #### Adri PENA, 2532-0, CBC, 3084-1 #### [facility] ([id number]) [address] [place] [address] 24633 MCV (RBC) [Entitic vol] 88 fL Normal 80-100 [facility] Comment on above: Performed By: #### C JEAN, 253-0, CBC, 3083-1 #### [facility] ([id number]) [address] [place] [address] 05850 Platelet mean volume (Bld) [Entitic vol] 8.1 fL Normal 7-12 [facility] Comment on above: Performed By: #### C JEAN, 253-0, CBC, 3083-1 #### [facility] ([id number]) [address] [place] [address] 75376 Platelets (Bld) [#/Vol] 205 10*3/uL Normal 150-450 [facility] Comment on above: Performed By: #### C JEAN, 2531-0, CBC, 3083- #### [facility] ([id number]) [address] [place] [address] 26275 RBC COUNT 3.34 X10E12/L Low 3.80-5.20 [facility] Comment on above: Performed By: #### C JEAN, 253-0, CBC, 3083- #### [facility] ([id number]) [address] [place] [address] 42296 WBC (Bld) [#/Vol] 8.2 10*3/uL Normal 4.0-11.0 [facility] Comment on above: Performed By: #### C JEAN, 2532-0, CBC, 3083-1 #### [facility] ([id number]) [address] [place] [address] 06615 COMPREHENSIVE METABOLIC PANE Joel 01-29-2024 Albumin [Mass/Vol] 2.8 g/dL Low 3.2-5.3 [facility] Comment on above: Performed By: #### C JEAN, 2532-0, CBC, 3084-1 #### [facility] ([id number]) [address] [place] [address] 92257 ALP [Catalytic activity/Vol] 103 U/L Normal 39-130 [facility] Comment on above: Performed By: #### C JEAN, 2532-0, CBC, 3084-1 #### [facility] ([id number]) [address] [place] [address] 46543 ALT [Catalytic activity/Vol] 16 U/L Normal 0-31 [facility] Comment on above: Performed By: #### C JEAN, 253-0, CBC, 3084-1 #### [facility] ([id number]) [address] [place] [address] 24921 Anion gap [Moles/Vol] 9 mmol/L Normal 5-15 [facility] Comment on above: Performed By: #### C JEAN, 2531-0, CBC, 308-1 #### [facility] ([id number]) [address] [place] [address] 77166 AST [Catalytic activity/Vol] 18 U/L Normal 0-41 [facility] Comment on above: Performed By: #### C JEAN, 253-0, CBC, 3084-1 #### [facility] ([id number]) [address] [place] [address] 94980 Bilirubin [Mass/Vol] 0.3 mg/dL Normal 0.3-1.2 [facility] Comment on above: Performed By: #### C JEAN, 2532-0, CBC, 3084-1 #### [facility] ([id number]) [address] [place] [address] 19835 Calcium [Mass/Vol] 9.2 mg/dL Normal 8.5-10.5 [facility] Comment on above: Performed By: #### C JEAN, 253-0, CBC, 3084-1 #### [facility] ([id number]) [address] [place] [address] 90653 Chloride [Moles/Vol] 105 mmol/L Normal 98-109 [facility] Comment on above: Performed By: #### C JEAN, 2532-0, CBC, 308-1 #### [facility] ([id number]) [address] [place] [address] 12621 CO2 [Moles/Vol] 22 mmol/L Normal 22-32 [facility] Comment on above: Performed By: #### C JEAN, 2532-0, CBC, 308-1 #### [facility] ([id number]) [address] [place] [address] 69870 Creatinine [Mass/Vol] 0.51 mg/dL Normal 0.40-1.00 [facility] Comment on above: Result Comment: METH OD TRACEABLE TO IDMS STANDARD Performed By: #### C JEAN, 253-0, CBC, 3083- #### [facility] ([id number]) [address] [place] [address] 80431 eGFR (CKD-EPI) NON-RACE DEPENDENT >90 Normal >59 [facility] Comment on above: Result Comment: Reported eGFR is based on the CKD-EPI 2021 equation that does not use a race coefficient. Performed By: #### C JEAN, 253-0, CBC, 3083- #### [facility] ([id number]) [address] [place] [address] 67604 Glucose [Mass/Vol] 96 mg/dL Normal 65-99 [facility] Comment on above: Performed By: #### C JEAN, 2532-0, CBC, 3083- #### [facility] ([id number]) [address] [place] [address] 11078 Potassium [Moles/Vol] 4.1 mmol/L Normal 3.5-5.0 [facility] Comment on above: Performed By: #### C JEAN, 2532-0, CBC, 3084-1 #### [facility] ([id number]) [address] [place] [address] 45799 Protein [Mass/Vol] 6.5 g/dL Normal 6.0-8.0 [facility] Comment on above: Performed By: #### C JEAN, 2532-0, CBC, 3084-1 #### [facility] ([id number]) [address] [place] [address] 47935 Sodium [Moles/Vol] 136 mmol/L Normal 134-146 [facility] Comment on above: Performed By: #### C JEAN, 253-0, CBC, 3084-1 #### [facility] ([id number]) [address] [place] [address] 11019 Urea nitrogen [Mass/Vol] 5 mg/dL Normal 5-23 [facility] Comment on above: Performed By: #### C JEAN, 253-0, CBC, 3084-1 #### [facility] ([id number]) [address] [place] [address] 88912 LDH [Catalytic activity/Vol] on 01-29-2024 LDH 128 U/L Normal 100-235 [facility] Comment on above: Performed By: #### C JEAN, 253-0, CBC, 308-1 #### [facility] ([id number]) [address] [place] [address] 65038 PROTEIN CREAT RATIOon 2023 RANDOM URINE PROTEIN 30 mg/L Normal <120 [facility] Comment on above: Performed By: #### U PCR #### [facility] ([id number]) [address] [place] [address]404 U/PRO/BROADBAND ENGINEER RATIO CALC 0.12 Normal <0.2 [facility] Comment on above: Result Comment: Neph rotic Syndrome is associated with ratios >3.5 Performed By: #### U PCR #### [facility] ([id number]) [address] [place] [address] 72655 URINE CREATININE,RDM 25.84 mg/dL Normal [facility] Comment on above: Performed By: #### U PCR #### [facility] ([id number]) [address] [place] [address] 05658 URIC ACIDon 01-29-2024 Urate [Mass/Vol] 4.1 mg/dL Normal 2.6-7.2 [place] Comment on above: Performed By: #### C MP, 2532-0, CBC, 3084-1 #### [facility] ([id number]) [address] [place] [address] 38804 CNPNon 01-25-2024 CNPN Telephone (PLASMN) VY MCKEON ([id number]) 1990 F Date Time Provider Department 01/25/24 FRANSICO SHARP During your visit today, we recorded the following information about you: Cynthia Petty 01/25/2024 1:48 PM Signed Pt is not able to make the appt on 02/11; amina wondering if this should be on March 14 instead? Thanks Allergies As of Date: 01/25/2024 Noted Allergy Reaction PENICILLINS 04/05/2022 16 - Unknown Comments: unknown Other Reaction(s): Unknown Reaction Date Reviewed: 01/21/2024 Reviewed by: Reji Manning, RN - Fully Assessed Reason for Visit: Appointment [186] Prescriptions as of 01/25/2024 - diphenhydramine HCl (UNISOM, DIPHENHYDRAMINE, ORAL) - albuterol HFA (PROVENTIL HFA, VENTOLIN HFA) 90 mcg/actuation inhaler Inhale 2 Puffs as instructed every 6 hours as needed. - ondansetron orally disintegrating (ZOFRAN ODT) 4 mg disintegrating tablet - valACYclovir (VALTREX) 500 mg tablet - aspirin 81 mg chewable tablet Take 81 mg by mouth. - magnesium oxide (MAG-OX) 400 mg (241.3 mg magnesium) tablet Take 400 mg by mouth. - omeprazole magnesium (ACID ROCK CRUSHER, OMEPRAZOLE, ORAL) Take by mouth as directed. - PNV no.95/ferrous fum/folic ac ( ORAL) Take by mouth as directed. Problem List As Of Date 01/25/2024 Noted Resolved AMA (advanced maternal age) primigravida 35+, u*10/08/2023 Bipolar disorder (HCC) [F31.9] 01/21/2024 Chronic cluster headache [G44.029] 01/21/2024 GERD (gastroesophageal reflux disease) [K21.9] 01/21/2024 Mild intermittent asthma without complication [*02/13/2023 Placenta previa antepartum in second trimester *11/20/2023 Skin cancer [C44.90] 01/21/2024 Encounter Status:Closed by CYNTHIA PETTY on 01/25/24 [facility] 01-22-2024 CNPN Telephone (SHARLENE) VY MCKEON ([id number]) 1990 F Date Time Provider Department 01/22/24 BRANDON CHURCHILL During your visit today, we recorded the following information about you: Brandon Churchill RN 01/22/2024 1:03 PM Signed Brandon Churchill RN 01/23/2024 3:55 PM Signed Pt calls regarding CT scans. Please place orders. Thanks! BRITNEY Mitchell Vivek, MD 01/23/2024 4:28 PM Signed We won's be doing scans for 4 weeks.... that works out to be around 33 weeks gestation Does that sound right? (February 19) Thanks, louisa. Lindsay Murray RN 01/24/2024 9:20 AM Signed Is the lab appointment I?ve been scheduled part of the CT I need done? I?ll be 34 weeks by the time I get the blood work on February 19. But it doesn?t say CT in there at all. Just curious because if it has spread then they wanna deliver at 36 weeks and that doesn?t seem like enough time. Vy Deshpande: Please advise BRITNEY Hernandez Rebecca, RN 01/24/2024 9:38 AM Signed Ana Peoples MD Abhyankar, Vivek, MD 1 hour ago (8:13 AM) MACK Nm, That is fine obstetrically if you are comfortable waiting that long from an Onc point of view. She can have the CT scan anytime as far as I am concerned. Ana Peoples MD Louisa: Can we go ahead and schedule the CT ahead of 02/19? BRITNEY Mitchell Vivek, MD 01/24/2024 12:21 PM Signed It's ok to move up - but I'd want to know closer to delivery (33 weeks - 34 weeks) because then there won't be a need for additional scans later. Labs are to be done prior to CT. Brandon Churchill RN 01/24/2024 12:24 PM Signed Clerical: Please call pt to schedule CT scans. BRITNEY Mitchell Courtney 01/24/2024 12:47 PM Signed Vy is scheduled for her CT scan on Sunday, 02/21 at 11am. She is scheduled for her labwork still, on Sunday, 02/19. I spoke with Vy and she is in agreement. Angela Arthur Allergies As of Date: 01/22/2024 Noted Allergy Reaction PENICILLINS 04/05/2022 16 - Unknown Comments: unknown Other Reaction(s): Unknown Reaction Date Reviewed: 01/21/2024 Reviewed by: Reji Manning BRITNEY - Fully Assessed Reason for Visit: Scans [867] Primary Visit Diagnosis:Malignant melanoma of skin (HCC) [C43.9] Order(s):CT NECK SOFT TISSUE W IVCON [5121157] Order #: [id number] FUTURE [] iv contrast (will be provided with radiology test)Inject 1 Each intravenously one time only for [address] Neck W IVCON No IV access, insert saline lock prior to the sedation, infusion, injection for imaging exam. Discontinue saline lock post exam. If Pt. has a central line or IVAD, may access for administration according to line specific nursing protocol. Once exam is complete flush line and de-access according to line specific nursing protocol in the CT contrast administration guidelines link.Disp: 1 EachRfl: 0 CT CHEST W IVCON [4427158] Order #: [id number] FUTURE [] iv contrast (will be provided with radiology test)CT Chest W -Inject, intravenously, once for 1 dose.No IV access, insert saline lock prior to the beginning of sedation, infusion, injection of imaging exam. Discontinue saline lock post exam. If Pt. has a central line or IVAD, may access for administration according to line specific nursing protocol. Once exam is complete flush line and de-access according to line specific nursing protocol in the CT contrast administration guidelines link.Disp: 1 EachRfl: 0 LACTATE DEHYDROGENASE [SQLD6] Order #: [id number] FUTURE COMPLETE BLOOD COUNT AND DIFFERENTIAL [SQCBCDIF] Order #: [id number] FUTURE COMPREHENSIVE METABOLIC PANEL [SQCMP] Order #: [id number] FUTURE Prescriptions as of 01/30/2024 - diphenhydramine HCl (UNISOM, DIPHENHYDRAMINE, ORAL) - albuterol HFA (PROVENTIL HFA, VENTOLIN HFA) 90 mcg/actuation inhaler Inhale 2 Puffs as instructed every 6 hours as needed. - ondansetron orally disintegrating (ZOFRAN ODT) 4 mg disintegrating tablet - valACYclovir (VALTREX) 500 mg tablet - aspirin 81 mg chewable tablet Take 81 mg by mouth. - magnesium oxide (MAG-OX) 400 mg (241.3 mg magnesium) tablet Take 400 mg by mouth. - omeprazole magnesium (ACID ROCK CRUSHER, OMEPRAZOLE, ORAL) Take by mouth as directed. - PNV no.95/ferrous fum/folic ac ( ORAL) Take by mouth as directed. Problem List As Of Date 01/22/2024 Noted Resolved AMA (advanced maternal age) primigravida 35+, u*10/08/2023 Bipolar disorder (HCC) [F31.9] 01/21/2024 Chronic cluster headache [G44.029] 01/21/2024 GERD (gastroesophageal reflux disease) [K21.9] 01/21/2024 Mild intermittent asthma without complication [*02/13/2023 Placenta previa antepartum in second trimester *11/20/2023 Skin cancer [C44.90] 01/21/2024 Prescriptions ordered this encounter Disp Refills Start End IV CONTRAST (RADIOLOGY PROCEDURE) 1 Ea* 0 01/23/2024 01/23/2024 Class: In Off (more content not included)... [id number] VY MCKEON ([id number]) 1990 F Date Time Provider Department 01/22/24 ANA PEOPLES [id number] During your visit today, we recorded the following information about you: Ana Peoples MD 01/22/2024 3:44 PM Signed 01/22/2024 [facility] Pt called and identified ~ 12:30 pm. WE discussed that I have spoken with her oncologist and that we think imaging her head, neck , and chest as part staging will help us determine delivery timing. We discussed radiation risk in including potential increased risk of leukemia in the fetus. We discussed that the proposed imaging should be less than the amount of radiation thought to increase the risk but an increase in risk from the baseline risk of 10/2999 to 11/2999 is the magnitude we would be talking about. All questions answered. Pt to arrange thr imaging through oncology and we will readdress delivery timing when more information on spread is known. All questions answered. Ana Peoples MD Allergies As of Date: 01/22/2024 Noted Allergy Reaction PENICILLINS 04/05/2022 16 - Unknown Comments: unknown Other Reaction(s): Unknown Reaction Date Reviewed: 01/21/2024 Reviewed by: Reji Manning, BRITNEY - Fully Assessed Prescriptions as of 01/22/2024 - diphenhydramine HCl (UNISOM, DIPHENHYDRAMINE, ORAL) - albuterol HFA (PROVENTIL HFA, VENTOLIN HFA) 90 mcg/actuation inhaler Inhale 2 Puffs as instructed every 6 hours as needed. - ondansetron orally disintegrating (ZOFRAN ODT) 4 mg disintegrating tablet - valACYclovir (VALTREX) 500 mg tablet - aspirin 81 mg chewable tablet Take 81 mg by mouth. - magnesium oxide (MAG-OX) 400 mg (241.3 mg magnesium) tablet Take 400 mg by mouth. - omeprazole magnesium (ACID ROCK CRUSHER, OMEPRAZOLE, ORAL) Take by mouth as directed. - PNV no.95/ferrous fum/folic ac ( ORAL) Take by mouth as directed. Problem List As Of Date 01/22/2024 Noted Resolved AMA (advanced maternal age) primigravida 35+, u*10/08/2023 Bipolar disorder (HCC) [F31.9] 01/21/2024 Chronic cluster headache [G44.029] 01/21/2024 GERD (gastroesophageal reflux disease) [K21.9] 01/21/2024 Mild intermittent asthma without complication [*02/13/2023 Placenta previa antepartum in second trimester *11/20/2023 Skin cancer [C44.90] 01/21/2024 Encounter Status:Closed by ANA PEOPLES on 01/22/24 Normal [facility] Examination level ultrasound on 01-21-2024 Indication anatomy survey. Melanoma, Advanced maternal age, Previa Impression 1. Single, live, intrauterine . 2. biometry is consistent with the established gestational age. 3. Unremarkable anatomic survey. No markers for aneuploidy are noted. 4. Amniotic fluid normal amount. 5. The placenta is anterior and is > 2cms from internal os on vaginal probe ultrasound 6. Normal transabdominal cervical length without evidence of funneling or dynamic changes. Recommendations Please see consult note in EPIC Maternal Assessment Height 170 cm Height (ft) 5 ft Height (in) 7 in Weight 87 kg Weight (lb) 192 lb BMI 30.07 kg/m Physical Exam Initial weight (lb) 175 lb Initial BMI 27.41 kg/m Method Transabdominal and transvaginal ultrasound examination Chi . Number of fetuses: 1 Dating LMP on: 06/28/2023 GA by LMP 29 w + 4 d CLAUDETTE by LMP: 04/03/2024 Ultrasound examination on: 01/21/2024 GA by U/S based upon: AC, BPD, Femur, HC GA by U/S 30 w + 4 d CLAUDETTE by U/S: 03/27/2024 Assigned: based on the LMP, selected on 01/21/2024 Assigned GA 29 w + 4 d Assigned CLAUDETTE: 04/03/2024 General Evaluation Cardiac activity present. FHR 142 bpm. movements: present. Presentation: cephalic Placenta: Placental site: anterior. Placental lakes Umbilical cord: normal insertion, 3 vessel cord Amniotic fluid: Amount of AF: normal amount. MVP 4.9 cm. BRAN 13.5 cm. Q1 4.9 cm, Q2 2.0 cm, Q3 2.7 cm, Q4 3.9 cm Growth Overview Exam date GA BPD (mm) HC (mm) AC (mm) FL (mm) HL (mm) EFW (g) 01/21/2024 29w 4d 77.4 82% 288.9 79% 272.5 89% 54.6 41% 49 26% 1608 74% Biometry Standard BPD 77.4 mm 31w 0d 82% Hadlock OFD 104.0 mm 30w 5d 86% Nicolaides HC 288.9 mm 31w 0d 79% Evan Cerebellum tr 36.3 mm 30w 0d 62% Hill AC 272.5 mm 31w 2d 89% Hadlock Femur 54.6 mm 28w 6d 41% Evan Humerus 49.0 mm 28w 6d 26% Evan EFW 1,608 g 30w 2d 74% Hadlock EFW (lb) 3 lb EFW (oz) 9 oz EFW by: Hadlock (HC-AC-FL) Extended Sewing Demonstrator 3.1 mm CM 7.6 mm 70% Nicolaides Extremities / Bony Struc FL / HC 0.19 Other Structures FHR 142 bpm Anatomy Cranium: normal Lateral ventricles: normal Choroid plexus: normal Midline falx: normal Cavum septi pellucidi: normal Cerebellum: normal Cisterna magna: normal Head / Neck Vermis: normal Neck: suboptimal Nuchal fold: normal Lips: normal Profile: normal Nose: normal Face Maxilla: normal Mandible: normal Orbits: normal Lens: normal 4-chamber view: normal RVOT view: normal LVOT view: normal 3-vessel view: normal [id number] view: normal Heart / Thorax Situs: situs solitus (normal) Aortic arch view: normal Ductal arch view: suboptimal SVC: normal IVC: normal Cardiac axis: normal Rt lung: normal Lt lung: normal Diaphragm: normal Cord insertion: suboptimal Stomach: normal Kidneys: normal Bladder: normal Genitals: normal Abdomen Abdom. wall: suboptimal Cervical spine: normal Thoracic spine: normal Lumbar spine: normal Sacral spine: normal Arms: normal Hands: suboptimal Legs: normal Feet: normal Rt upper arm: normal Rt forearm: normal Rt hand: suboptimal Rt fingers: suboptimal Lt upper arm: normal Lt forearm: normal Lt hand: suboptimal Lt fingers: suboptimal Rt upper leg: normal Rt lower leg: normal Rt foot: normal Lt upper leg: normal Lt lower leg: normal Lt foot: normal sex: male sex: normal Wants to know sex: yes Maternal Structures Uterus / Cervix Uterus: Visualized Cervix: Visualized Approach: Transvaginal Cervical length 45.2 mm Ovaries / Tubes / Adnexa Rt ovary: Visualized Rt ovary morphology: normal Rt ovary D1 25 mm Rt ovary D2 24 mm Rt ovary D3 16 mm Rt ovary Vol 5.1 cm Lt ovary: Not visualized Performed By: Adela Alcantara RDMS Read By: Ana Peoples MD MATERNAL MEDICINE [facility] Radiology Study observation (narrative) [facility] [place] 01-18-2024 KIERAN Telephone (OBGYF2) VY MCKEON ([id number]) 1990 F Date Time Provider Department 01/18/24 FV OB MFM OBGYF2 During your visit today, we recorded the following information about you: Jose L Crowley MA 01/18/2024 4:46 PM Signed Called pt, verified name and . Informed pt that call was regarding her upcoming appt on 01/20. Pt was not scheduled for an anatomy at time of her consult. Added pt on for 11 am US, pt verbalized agreement. Let pt know our office will call her first thing on Sunday if anything changes. Jose L Crowley MA Allergies As of Date: 01/18/2024 Noted Allergy Reaction PENICILLINS 04/05/2022 16 - Unknown Comments: unknown Other Reaction(s): Unknown Reaction Date Reviewed: 12/26/2023 Reviewed by: Renuka Prasad MA - Fully Assessed Reason for Visit: Appointment [186] Prescriptions as of 01/18/2024 - diphenhydramine HCl (UNISOM, DIPHENHYDRAMINE, ORAL) - albuterol HFA (PROVENTIL HFA, VENTOLIN HFA) 90 mcg/actuation inhaler Inhale 2 Puffs as instructed every 6 hours as needed. - ondansetron orally disintegrating (ZOFRAN ODT) 4 mg disintegrating tablet - valACYclovir (VALTREX) 500 mg tablet - aspirin 81 mg chewable tablet Take 81 mg by mouth. - magnesium oxide (MAG-OX) 400 mg (241.3 mg magnesium) tablet Take 400 mg by mouth. - omeprazole magnesium (ACID ROCK CRUSHER, OMEPRAZOLE, ORAL) Take by mouth as directed. - PNV no.95/ferrous fum/folic ac ( ORAL) Take by mouth as directed. Problem List As Of Date: 01/18/2024 (None) Encounter Status:Closed by JOSE L CROWLEY on 01/18/24 [facility] [place] 01-10-2024 CNPN Telephone (OBGYF2) VY MCKEON ([id number]) 1990 F Date Time Provider Department 01/10/24 HISTORICAL OBGYF2 During your visit today, we recorded the following information about you: Rolo Parada 01/10/2024 9:19 AM Signed MyChart msg was sent to patient asking for call back to this coordinator to schedule MFM consultation. Allergies As of Date: 01/10/2024 Noted Allergy Reaction PENICILLINS 04/05/2022 16 - Unknown Comments: unknown Other Reaction(s): Unknown Reaction Date Reviewed: 12/26/2023 Reviewed by: Renuka Praasd MA - Fully Assessed Prescriptions as of 01/10/2024 - diphenhydramine HCl (UNISOM, DIPHENHYDRAMINE, ORAL) - albuterol HFA (PROVENTIL HFA, VENTOLIN HFA) 90 mcg/actuation inhaler Inhale 2 Puffs as instructed every 6 hours as needed. - ondansetron orally disintegrating (ZOFRAN ODT) 4 mg disintegrating tablet - valACYclovir (VALTREX) 500 mg tablet - aspirin 81 mg chewable tablet Take 81 mg by mouth. - magnesium oxide (MAG-OX) 400 mg (241.3 mg magnesium) tablet Take 400 mg by mouth. - omeprazole magnesium (ACID ROCK CRUSHER, OMEPRAZOLE, ORAL) Take by mouth as directed. - PNV no.95/ferrous fum/folic ac ( ORAL) Take by mouth as directed. Problem List As Of Date: 01/10/2024 (None) Encounter Status:Closed by ROLO PARADA on 01/10/24 [facility] [place] 01-09-2024 CNPN Telephone (PLASMN) VY MCKEON ([id number]) 1990 F Date Time Provider Department 01/09/24 FRANSICO SHARP During your visit today, we recorded the following information about you: Fernanda Michael 01/09/2024 9:55 AM Signed Patient called that she is seeing Maternal Med, in her area and was questioning does she need to see one at the [facility]? She is asking for a call.. she is very nervous Surjit Griggs, RN 01/09/2024 12:42 PM Signed Reached out to patient. Instructions provided to see a maternal medicine specialist within the [facility] per Dr. Sharp. This nurse explained that the multidisciplinary team will need frequent communications in arranging the plan of care, and staying in one healthcare system will help facilitate planning. Allergies As of Date: 01/09/2024 Noted Allergy Reaction PENICILLINS 04/05/2022 16 - Unknown Comments: unknown Other Reaction(s): Unknown Reaction Date Reviewed: 12/26/2023 Reviewed by: Renuka Prasad MA - Fully Assessed Prescriptions as of 01/09/2024 - diphenhydramine HCl (UNISOM, DIPHENHYDRAMINE, ORAL) - albuterol HFA (PROVENTIL HFA, VENTOLIN HFA) 90 mcg/actuation inhaler Inhale 2 Puffs as instructed every 6 hours as needed. - ondansetron orally disintegrating (ZOFRAN ODT) 4 mg disintegrating tablet - valACYclovir (VALTREX) 500 mg tablet - aspirin 81 mg chewable tablet Take 81 mg by mouth. - magnesium oxide (MAG-OX) 400 mg (241.3 mg magnesium) tablet Take 400 mg by mouth. - omeprazole magnesium (ACID ROCK CRUSHER, OMEPRAZOLE, ORAL) Take by mouth as directed. - PNV no.95/ferrous fum/folic ac ( ORAL) Take by mouth as directed. Problem List As Of Date: 01/09/2024 (None) Encounter Status:Closed by FERNANDA MICHAEL on 01/09/24 Normal [facility] CNOVSPon 01-04-2024 CNOVSP Visit (SP) Office (PLASCA) VY MCKEON ([id number]) 1990 F Date Time Provider Department 01/04/24 2:15 PM FRANSICO SHARP During your visit today, we recorded the following information about you: Temperature Pulse Respiration Blood pressure 97.1 degrees 94/minute 20/minute 148/83 Fransico Sharp MD 01/06/2024 9:42 AM Signed DATE: January 03, 2024 CC: New Melanoma Patient Referring Physician: Margarita Kim MD at [facility] in [place] HPI: Vy Mckeon is a 33 year old female who presents for surgical evaluation of 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 She is currently 27 weeks ; her estimated delivery date is 04/03/2024. She reportedly has had a lesion on her left upper lip for most of her life, but within the last 3 years the lesion became more raised and irregular. Diagnosis has been established with shave biopsy performed on 12/10/2023 by Margarita Kim MD The patient has a tumor thickness of 0.7 MM without ulceration and positive involvement of the margins Seen by Dermatology Yes Past Medical History/Risk Factors: Hx of Melanoma: No Hx of NMSC: No Hx of Atypical Nevi: No Hx of previous malignacy: No Sun Exposure History: Hx of intense intermittent sun exposure/blistering sunburns: No Hx of chronic Sun Exposure: No Hx of Tanning bed use: Yes Immunosuppresion History: Hx of organ transplantation: No Hx of radiation:No Hx of immunosuppressive medication use: No Family h/o skin cancer: Present - maternal grandmother with melanoma on her nose PAST MEDICAL HISTORY Diagnosis Date Anxiety Asthma Depression Melanoma (HCC) PAST SURGICAL HISTORY Procedure Laterality Date DANDC, DIAG AND/OR THERAPEUTIC PAST SURGICAL HISTORY OF Shaved Biopsy above lip Medications and Allergies were reviewed and verified. Current Outpatient Medications Medication Sig Dispense Refill diphenhydramine HCl (UNISOM, DIPHENHYDRAMINE, ORAL) albuterol HFA (PROVENTIL HFA, VENTOLIN HFA) 90 mcg/actuation inhaler Inhale 2 Puffs as instructed every 6 hours as needed. ondansetron orally disintegrating (ZOFRAN ODT) 4 mg disintegrating tablet valACYclovir (VALTREX) 500 mg tablet aspirin 81 mg chewable tablet Take 81 mg by mouth. magnesium oxide (MAG-OX) 400 mg (241.3 mg magnesium) tablet Take 400 mg by mouth. omeprazole magnesium (ACID ROCK CRUSHER, OMEPRAZOLE, ORAL) Take by mouth as directed. PNV no.95/ferrous fum/folic ac ( ORAL) Take by mouth as directed. No current facility-administered medications for this visit. Social History Tobacco Use Smoking status: Never Smokeless tobacco: Never Substance Use Topics Alcohol use: Yes FAMILY HISTORY Problem Relation Age of Onset Melanoma Maternal Grandmother REVIEW OF SYSTEMS GENERAL:Negative for malaise, significant weight loss and fever. NECK: Negative for lumps, goiter, pain and significant neck swelling. SKIN: See HPI HEMATOLOGIC/LYMPHATIC /IMMUNOLOGIC:Negative for prolonged bleeding, bruising easily, and swollen nodes. PHYSICAL EXAM: BP 148/83 Pulse 94 Temp 36.2 ?C (97.1 ?F) (Temporal) Resp 20 LMP 06/24/2023 SpO2 99% GENERAL: Patient is a well-nourished , appearing stated age, resting comfortably, breathing regularly. No acute distress. Skin: Pigmented lesion on the left upper lip with a variegated pattern, real estate associate in the middle with a number of dark spots. The lesion measures 1 cm in diameter. Photos taken, see [facility] Get Images LABS: Pathology Report - EXTERNAL PATHOLOGY REPORT - 12/10/2023: ASSESSMENT/PLAN: (C43.9) Malignant melanoma of skin (HCC) (primary encounter diagnosis) ANTICOAGULATION HISTORY: Aspirin 81 (no need to hold) ANTICOAGULATION INDICATORS: pre-eclampsia Patient has a history of asthma, denies history of hospitalization. She denies gestational DM or HTN. Vy Mckeon is a 33 year old female who presents for surgical evaluation of melanoma of the left upper lip. At this time, after discussing the patient's symptoms and reviewing their pathology, I believe the patient is a good candidate for surgical intervention. I discussed modalities of operative intervention and rationale for resection of left upper lip melanoma, reconstruction with local tissue rearrangement, and a sentinel lymph node biopsy, sooner rather than later. They were counseled on perioperative routine and surgical plan, and all of their questions were addressed to their understanding prior to electing for surgery. I answered all the patient's questions in detail and addressed their concerns; patient showed clear understanding prior to electing for surgery. I also reviewed the risks, benefits, alternatives, and recovery of surgery. PLAN: - Photos taken and uploaded to chart today via [email or web address] - Pathology re-read to be obtained - Surgical plan is for resection of left upper lip melano (more content not included)... Normal [facility] CBC W Auto Differential pane l (Bld)on 12-26-2023 Basophils (Bld) [#/Vol] 0.03 10*3/uL Normal <0.11 [facility] Comment on above: Order Comment: Speci men Type: BLOOD SPECIMEN Ordering Facility: [facility] Address: [address] [place] [address] Performed By: #### 5 7021-8 #### [facility] CLIA [id number] [address] [place] [address] Basophils/100 WBC (Bld) 0.3 % Normal [facility] Comment on above: Order Comment: Speci men Type: BLOOD SPECIMEN Ordering Facility: [facility] Address: [address] [place] [address] Performed By: #### 5 7021-8 #### [facility] CLIA [id number] [address] [place] [address]198 Differential cell count method Nom (Bld) Auto Normal [facility] Comment on above: Order Comment: Speci men Type: BLOOD SPECIMEN Ordering Facility: [facility] Address: [address] [place] [address] Performed By: #### 5 7021-8 #### [facility] CLIA [id number] [address] [place] [address] 41635 Eosinophils (Bld) [#/Vol] 0.15 10*3/uL Normal <0.46 [facility] Comment on above: Order Comment: Speci men Type: BLOOD SPECIMEN Ordering Facility: [facility] Address: [address] [place] [address] Performed By: #### 5 7021-8 #### [facility] CLIA [id number] [address] [place] [address] Eosinophils/100 WBC (Bld) 1.5 % Normal [facility] Comment on above: Order Comment: Speci men Type: BLOOD SPECIMEN Ordering Facility: [facility] Address: [address] [place] [address] Performed By: #### 5 7021-8 #### [facility] CLIA [id number] [address] [place] [address] 54526 Erythrocyte distribution width (RBC) [Ratio] 13.5 % Normal 11.5-15.0 [facility] Comment on above: Order Comment: Speci men Type: BLOOD SPECIMEN Ordering Facility: [facility] Address: [address] [place] [address] Performed By: #### 5 7021-8 #### [facility] CLIA [id number] [address] [place] [address]3274 Hematocrit (Bld) [Volume fraction] 35.5 % Low 36.0-46.0 [facility] Comment on above: Order Comment: Speci men Type: BLOOD SPECIMEN Ordering Facility: [facility] Address: [address] [place] [address] Performed By: #### 5 7021-8 #### [facility] CLIA [id number] [address] [place] [address]3496 Hemoglobin (Bld) [Mass/Vol] 12.0 g/dL Normal 11.5-15.5 [facility] Comment on above: Order Comment: Speci men Type: BLOOD SPECIMEN Ordering Facility: [facility] Address: [address] [place] [address] Performed By: #### 5 7021-8 #### [facility] CLIA [id number] [address] [place] [address] 44442 Immature granulocytes (Bld) [#/Vol] 0.06 10*3/uL Normal <0.10 [facility] Comment on above: Order Comment: Speci men Type: BLOOD SPECIMEN Ordering Facility: [facility] Address: [address] [place] [address] Performed By: #### 5 7021-8 #### [facility] CLIA [id number] [address] [place] [address] Immature granulocytes/100 WBC (Bld) 0.6 % Normal [facility] Comment on above: Order Comment: Speci men Type: BLOOD SPECIMEN Ordering Facility: [facility] Address: [address] [place] [address] Performed By: #### 5 7021-8 #### [facility] CLIA [id number] [address] [place] [address] Lymphocytes (Bld) [#/Vol] 1.46 10*3/uL Normal 1.00-4.00 [facility] Comment on above: Order Comment: Speci men Type: BLOOD SPECIMEN Ordering Facility: [facility] Address: [address] [place] [address] Performed By: #### 5 7021-8 #### [facility] CLIA [id number] [address] [place] [address] 66583 Lymphocytes/100 WBC (Bld) 15.0 % Normal [facility] Comment on above: Order Comment: Speci men Type: BLOOD SPECIMEN Ordering Facility: [facility] Address: [address] [place] [address] Performed By: #### 5 7021-8 #### [facility] CLIA [id number] [address] [place] [address] 71466 MCH (RBC) [Entitic mass] 30.1 pg Normal 26.0-34.0 [facility] Comment on above: Order Comment: Speci men Type: BLOOD SPECIMEN Ordering Facility: [facility] Address: [address] [place] [address] Performed By: #### 5 7021-8 #### [facility] CLIA [id number] [address] [place] [address] 59441 MCHC (RBC) [Mass/Vol] 33.8 g/dL Normal 30.5-36.0 [facility] Comment on above: Order Comment: Speci men Type: BLOOD SPECIMEN Ordering Facility: [facility] Address: [address] [place] [address] Performed By: #### 5 7021-8 #### [facility] CLIA [id number] [address] [place] [address] 02753 MCV (RBC) [Entitic vol] 89.0 fL Normal 80.0-100.0 [facility] Comment on above: Order Comment: Speci men Type: BLOOD SPECIMEN Ordering Facility: [facility] Address: [address] [place] [address] Performed By: #### 5 7021-8 #### [facility] CLIA [id number] [address] [place] [address]2338 Monocytes (Bld) [#/Vol] 0.50 10*3/uL Normal <0.87 [facility] Comment on above: Order Comment: Speci men Type: BLOOD SPECIMEN Ordering Facility: [facility] Address: [address] [place] [address] Performed By: #### 5 7021-8 #### [facility] CLIA [id number] [address] [place] [address] 33227 Monocytes/100 WBC (Bld) 5.1 % Normal [facility] Comment on above: Order Comment: Speci men Type: BLOOD SPECIMEN Ordering Facility: [facility] Address: [address] [place] [address] Performed By: #### 5 7021-8 #### [facility] CLIA [id number] [address] [place] [address] 08867 Neutrophils (Bld) [#/Vol] 7.52 10*3/uL High 1.45-7.50 [facility] Comment on above: Order Comment: Speci men Type: BLOOD SPECIMEN Ordering Facility: [facility] Address: [address] [place] [address] Performed By: #### 5 7021-8 #### [facility] CLIA [id number] [address] [place] [address] 46864 Neutrophils/100 WBC (Bld) 77.5 % Normal [facility] Comment on above: Order Comment: Speci men Type: BLOOD SPECIMEN Ordering Facility: [facility] Address: [address] [place] [address] Performed By: #### 5 7021-8 #### [facility] CLIA [id number] [address] [place] [address] 81437 Nucleated RBC (Bld) [#/Vol] 10*3/uL Normal <0.01 [facility] Comment on above: Order Comment: Speci men Type: BLOOD SPECIMEN Ordering Facility: [facility] Address: [address] [place] [address] Performed By: #### 5 7021-8 #### [facility] CLIA [id number] [address] [place] [address] 42365 Nucleated RBC/100 WBC (Bld) [Ratio] 0.0 /100 WBC Normal [facility] Comment on above: Order Comment: Speci men Type: BLOOD SPECIMEN Ordering Facility: [facility] Address: [address] [place] [address] Performed By: #### 5 7021-8 #### [facility] CLIA [id number] [address] [place] [address] 44598 Platelet mean volume (Bld) [Entitic vol] 10.1 fL Normal 9.0-12.7 [facility] Comment on above: Order Comment: Speci men Type: BLOOD SPECIMEN Ordering Facility: [facility] Address: [address] [place] [address] Performed By: #### 5 7021-8 #### [facility] CLIA [id number] [address] [place] [address] 12088 Platelets (Bld) [#/Vol] 224 10*3/uL Normal 150-400 [facility] Comment on above: Order Comment: Speci men Type: BLOOD SPECIMEN Ordering Facility: [facility] Address: [address] [place] [address] Performed By: #### 5 7021-8 #### [facility] CLIA [id number] [address] [place] [address] RBC (Bld) [#/Vol] 3.99 10*6/uL Normal 3.90-5.20 [facility] Comment on above: Order Comment: Speci men Type: BLOOD SPECIMEN Ordering Facility: [facility] Address: [address] [place] [address] Performed By: #### 5 7021-8 #### [facility] CLIA [id number] [address] [place] [address] WBC (Bld) [#/Vol] 9.72 10*3/uL Normal 3.70-11.00 [facility] Comment on above: Order Comment: Speci men Type: BLOOD SPECIMEN Ordering Facility: [facility] Address: [address] [place] [address] Performed By: #### 5 7021-8 #### [facility] CLIA [id number] [address] [place] [address] CNOVSPon 12-26-2023 CNOVSP Visit (SP) Office ([place]) VY MCKEON ([id number]) 1990 F Date Time Provider Department 12/26/23 3:30 PM USMAN GOLDBERG During your visit today, we recorded the following information about you: Temperature Pulse Respiration Blood pressure 97.3 degrees 87/minute 16/minute 134/74 Weight Height Last Period 86.1 kg 1.702 m 06/24/23 Usman Goldberg MD 12/27/2023 12:46 PM Signed NAME: Vy Mckeon CLINIC NO.: [id number] DATE OF SERVICE: December 26, 2023 (Krystal) Referring Provider: Self Consultation requested by Self Referred for an opinion regarding Ms. Vy Mckeon, and my final recommendations will be communicated back to the requesting physician by way of shared medical record or letter via US mail. Additional Clinicians involved in Vy Mckeon's care:Freddie Delgado DIAGNOSIS: Cutaneous melanoma ASSESSMENT: 33 year old woman who presents 12/26/2023 and is 26 weeks gravid because of a new diagnosis of invasive cutaneous melanoma. She had a lifelong flat mole (beauty heide) that changed shape on her left-sided upper lip a few years ago. 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 Will need wide excision. No imaging at this time. Will refer to facial / reconstructive Plastic Surgery for wide excision. PLAN: Referral to Surgery for wide excision - HPI: CASE HISTORY: Reverse Chronological Order 12/10/2023 - Shave Biopsy of Left Upper Cutaneous Lip: - Invasive malignant melanoma - cutaneous Breslow 0.7 mm, Ulceration negative, Robert (IV), LVI (-), tumor regression (-) preliminary stage pT1a.... Initial Visit, December 26, 2023: Vy Mckeon presents today Hematology and Oncology evaluation. She is a 33 year old female who was found to have invasive malignant melanoma of the left upper lip after shave biopsy on 12/09. She is currently 26 weeks (tomorrow). 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 First appeared to be raised up 3 years ago - wasn't bothering her Maternal GM melanoma face (nose) in 80's. No history of breast cancer in the family. Prior History from Dr. Margarita Kim's Consultation on 12/10/2023: This is a 33 year old female who is a new patient who is being seen for a chief complaint of a skin lesion, located on the left lip. The lesion is enlarging, irregular, and now has a bump and has been present for years. This lesion has not been treated in the past. She presents today for: evaluation and management. She has no history of previous skin cancer and no family history of melanoma. Patient has spot on her face since . She has noted that spot is more raised. - REVIEW OF SYSTEMS Per HPI and otherwise negative by full review of organ systems. - ECOG PERFORMANCE STATUS: 0 PHYSICAL EXAMINATION: Vitals: BP 134/74 Pulse 87 Temp (Src) 97.3 (Temporal) Resp 16 Ht 5' 7 (1.70m) Wt 189 lb 13.1 oz (86.1kg) SpO2 98% LMP 06/24/2023 BMI 29.72 kg/(m2). Body surface area is 2.02 meters squared. Exam limited to gross visualization where appropriate. Gen.: This is an age-appropriate patient in no acute distress. Head: Appears atraumatic with no visible lesions. Eyes: Pupils equally round and reactive to light, extraocular muscles are intact. Neck: Supple. Respiratory: Appears to be respiring comfortably. Neurologic: Nonfocal to gross visualization. Alert and oriented ?3. Psychiatric: No evidence of inappropriate anxiety or depression. Skin: Visible areas of skin without rash, lesions, wounds or petechiae. - Flat dark / curtis mole on left upper lip approximately 1 cm in diameter with central excision. Abdomen is Gravid. - ALLERGIES: ALLERGIES Allergen Reactions Penicillins Unknown unknown Other Reaction(s): Unknown Reaction MEDICATIONS: diphenhydramine HCl (UNISOM, DIPHENHYDRAMINE, ORAL) albuterol HFA (PROVENTIL HFA, VENTOLIN HFA) 90 mcg/actuation inhaler Inhale 2 Puffs as instructed every 6 hours as needed. ondansetron orally disintegrating (ZOFRAN ODT) 4 mg disintegrating tablet valACYclovir (VALTREX) 500 mg tablet aspirin 81 mg chewable tablet Take 81 mg by mouth. magnesium oxide (MAG-OX) 400 mg (241.3 mg magnesium) tablet Take 400 mg by mouth. omeprazole magnesium (ACID (more content not included)... Normal [facility] Comprehensive metabolic 2000 panelon 12-26-2023 Albumin [Mass/Vol] 3.9 g/dL Normal 3.9-4.9 [facility] Comment on above: Order Comment: Speci men Type: BLOOD SPECIMENOrdering Facility: [facility] Address: [address] [place] [address] Performed By: #### 2 4323-8, 0 ####[facility] [id number] [place] [address] ALP [Catalytic activity/Vol] 109 U/L Normal 34-123 [facility] Comment on above: Order Comment: Speci men Type: BLOOD SPECIMENOrdering Facility: [facility] Address: [address] [place] [address] Performed By: #### 2 4323-8, 0 ####[facility] [id number] [place] [address] ALT [Catalytic activity/Vol] 26 U/L Normal 7-38 [facility] Comment on above: Order Comment: Speci men Type: BLOOD SPECIMENOrdering Facility: [facility] Address: [address] [place], [place] [address] Performed By: #### 2 4323-8, 2531-0 ####[facility] [id number] [place] [address] Anion gap [Moles/Vol] 10 mmol/L Normal 9-18 [facility] Comment on above: Order Comment: Speci men Type: BLOOD SPECIMENOrdering Facility: [facility] Address: [address] [place], [place] [address] Performed By: #### 2 4323-8, 2531-0 ####[facility] [id number] [place] [address] AST [Catalytic activity/Vol] 26 U/L Normal 13-35 [facility] Comment on above: Order Comment: Speci men Type: BLOOD SPECIMENOrdering Facility: [facility] Address: [address] [place] [address] Performed By: #### 2 4323-8, 2531-0 ####[facility] [id number] [place] [address] Bilirubin [Mass/Vol] 0.2 mg/dL Normal 0.2-1.3 [facility] Comment on above: Order Comment: Speci men Type: BLOOD SPECIMENOrdering Facility: [facility] Address: [address] [place] [address] Performed By: #### 2 4323-8, 253-0 ####[facility] [id number] [place] [address] Calcium [Mass/Vol] 10.1 mg/dL Normal 8.5-10.2 [facility] Comment on above: Order Comment: Speci men Type: BLOOD SPECIMENOrdering Facility: [facility] Address: [address] [place] [address] Performed By: #### 2 4323-8, 2531-0 ####[facility] [id number] [place] [address] Chloride [Moles/Vol] 103 mmol/L Normal 97-105 [facility] Comment on above: Order Comment: Speci men Type: BLOOD SPECIMENOrdering Facility: [facility] Address: [address] [place] [address] Performed By: #### 2 4323-8, 2531-0 ####[facility] [id number] [place] [address] CO2 [Moles/Vol] 23 mmol/L Normal 22-30 [facility] Comment on above: Order Comment: Speci men Type: BLOOD SPECIMENOrdering Facility: [facility] Address: [address] [place] [address] Performed By: #### 2 4323-8, 2531-0 ####[facility] [id number] [place] [address] Creatinine [Mass/Vol] 0.64 mg/dL Normal 0.58-0.96 [facility] Comment on above: Order Comment: Speci men Type: BLOOD SPECIMENOrdering Facility: [facility] Address: [address] [place] [address] Performed By: #### 2 4323-8, 2531-0 ####[facility] [id number] [place] [address] Creatinine and Glomerular filtration rate.predicted panel (S/P/Bld) 118 mL/min/1.73m??? Normal >=60 [facility] Comment on above: Order Comment: Speci men Type: BLOOD SPECIMENOrdering Facility: [facility] Address: [address] [place] [address] Result Comment: Araseli mated Glomerular Filtration Rate (eGFR) is calculated using the 2020 CKD-EPI creatinine equation. This equation utilizes serum creatinine, sex, and age as parameters. The creatinine assay has traceable calibration to isotope dilution-mass spectrometry. Refer to KDIGO guidelines for clinical interpretation. In patients with unstable renal function, e.g. those with acute kidney injury, the eGFR may not accurately reflect actual GFR. Performed By: #### 2 4323-8, ####[facility] [id number] [place] [address] Glucose [Mass/Vol] 85 mg/dL Normal 74-99 [facility] Comment on above: Order Comment: Kavin childress Type: BLOOD SPECIMENOrdering Facility: [facility] Address: [address] [place] [address] Result Comment: The [place] [employer] (ADA) provides guidance for cutoff values for fasting glucose and random glucose. The ADA defines fasting as no caloric intake for at least 8 hours. Fasting plasma glucose results between 100 to 125 mg/dL indicate increased risk for diabetes (prediabetes). Fasting plasma glucose results greater than or equal to 126 mg/dL meet the criteria for diagnosis of diabetes. In the absence of unequivocal hyperglycemia, results should be confirmed by repeat testing. In a patient with classic symptoms of hyperglycemia or hyperglycemic crisis, random plasma glucose results greater than or equal to 200 mg/dL meet the criteria for diagnosis of diabetes. Reference: Standards of Medical Care in Diabetes 2016, [place] [employer] Association. Diabetes Care. 2016.39(Suppl 1). Performed By: #### 2 43238, ####[facility] [id number] [place] [address] Potassium [Moles/Vol] 4.1 mmol/L Normal 3.7-5.1 [facility] Comment on above: Order Comment: Kavin childress Type: BLOOD SPECIMENOrdering Facility: [facility] Address: [address] [place] [address] Performed By: #### 2 4323-8, 0 ####[facility] [id number] [place] [address] Protein [Mass/Vol] 7.3 g/dL Normal 6.3-8.0 [facility] Comment on above: Order Comment: Speci men Type: BLOOD SPECIMENOrdering Facility: [facility] Address: [address] [place] [address] Performed By: #### 2 4323-8, 2531-0 ####[facility] [id number] [place] [address] Sodium [Moles/Vol] 136 mmol/L Normal 136-144 [facility] Comment on above: Order Comment: Speci men Type: BLOOD SPECIMENOrdering Facility: [facility] Address: [address] [place] [address] Performed By: #### 2 432-8, 2531-0 ####[facility] [id number] [place] [address] Urea nitrogen [Mass/Vol] 6 mg/dL Low 7-21 [facility] Comment on above: Order Comment: Speci men Type: BLOOD SPECIMENOrdering Facility: [facility] Address: [address] [place] [address] Performed By: #### 2 4323-8, 0 ####[facility]IA [id number] [place] [address] LDH SerPl-cCncon 12-26-2023 LDH [Catalytic activity/Vol] 190 U/L Normal 135-214 [facility] Comment on above: Order Comment: Speci men Type: BLOOD SPECIMENOrdering Facility: [facility] Address: [address] [place] [address] Result Comment: Hemo lysis present. The origin of the hemolysis, in vitro versus an in vivo hemolytic process, cannot be distinguished via this assay alone. In vitro hemolysis may lead to non-physiological (spurious) elevation in lactate dehydrogenase (LDH) results. The result should be interpreted in context of the clinical setting and other test results. Suggest reorder as clinically indicated. Performed By: #### 2 4323-8, 2531-0 ####[facility]IA [id number] [place] [address] URETHRITIS/DISCHARGE PLUS VA GINITIS (HTRX)on 11-14-2023 ATOPOBIUM VAGINAE 19.497 [facility]normal [facility] ATOPOBIUM VAGINAE Detected Abnormal [facility] althcare BVAB 2,3 (BACTERIAL VAGINOSIS ASSOCIATED BACTERIA 2, 3); MOBILUNCUS SPP 15.096 Abnormal [facility] Healthcare BVAB 2,3 (BACTERIAL VAGINOSIS ASSOCIATED BACTERIA 2, 3); MOBILUNCUS SPP Detected Abnormal [facility] Healthcare DIANE ALBICANS, PARAPSILOSIS, TROPICALIS 0 [facility] Healthcare DIANE ALBICANS, PARAPSILOSIS, TROPICALIS Not detected [facility] DIANE GLABRATA 0 [facility]care DIANE GLABRATA Not [facility] DIANE KRUSEI 0 [facility] DIANE KRUSEI Not detected [facility] CHLAMYDIA TRACHOMATIS 0 [facility] CHLAMYDIA TRACHOMATIS Not detected [facility] DFR (A1, A5), SUL (1,2) 0 PPM [facility] DFR (A1, A5), SUL (1,2) Not detected [facility] ERMB, C; MEFA 14.773 Abnormal PPM [facility] care ERMB, C; MEFA Detected Abnormal [facility] care GARDNERELLA VAGINALIS 0 [facility] GARDNERELLA VAGINALIS Not detected [facility] Interpretation and review of laboratory results Abnormal [facility] Healthca re MEGASPHAERA (TYPES 1, 2) 0 [facility] MEGASPHAERA (TYPES 1, 2) Not detected [facility] MYCOPLASMA GENITALIUM 0 [facility] MYCOPLASMA GENITALIUM Not detected [facility] NEISSERIA GONORRHOEAE 0 [facility] NEISSERIA GONORRHOEAE Not detected [facility] TET B, TET M 18.414 Abnormal PPM [facility] Healthc are TET B, TET M Detected Abnormal [facility] Healthc are TRICHOMONAS VAGINALIS 0 [facility] TRICHOMONAS VAGINALIS Not detected [place] [facility] Unlisted Lab Teston 11-13-19 24 Unlisted lab test see scanned report [facility] Urinalysis macro (dipstick) panel (U)on 11-12-2023 Bilirubin, UA Negative Negative - 4(70) +++ mg/dL [facility] Blood, UA Negative Negative - 50 Manny/mcL [facility] Clarity, UA Clear [facility] Color, UA Yellow [facility] Glucose, UA Negative Negative - 1999(110) ++++ mg/dL [facility] Interpretation and review of laboratory results Normal [facility] re Ketones, UA Negative Negative - 160(16) ++++ mg/dL [facility] Leukocytes, UA Negative Negative - 500+++ Luli/mcL [facility] Nitrite, UA Negative Negative - Positive [facility] pH, UA 6.0 5 - 9 [facility] [employer] [facility] Protein, UA Negative Negative - 1999(20) ++++ mg/dL [facility] Spec Grav, UA 1.020 1 - 1.03 [facility] Urobilinogen, UA 1.0 0.2 - 12 mg/dL [facility] HCG ( test) [place].rosalinda d Ql (U)Ordered By: Karan Romero on 03-19-2023 HCG ( test) Ql (U) Negative [facility] HCG,Urineon 03-19-2023 Beta HCG ( test) Ql (U) Negative Normal [facility] Comment on above: Result Comment: PERF ORMED BY: [place] [address] PATHOLOGIST CHIEF HOSPITAL ADMINISTRATOR JOYCE ACHARYA M.D. Performed By: #### U HCG #### [address] 03-19-2023 L - -------- Specimen: [id number] Received: 03/19/23 Status: HEMANT Johnston Num: [id number] Spec Type: Surgical Subm Dr: Karan Romero MD Tissues: A Duodenum - Biopsy (DUODENAL BX) B Esophagus Biopsy (ESOPHAGEAL) Procedures: HE/4, Gross/Micro L4/2 -------- Age/ Patient Sex Location Account Attending Physician -------- Vy Mckeon 32/F [id number] Karan Romero MD -------- SPEC NUM: [id number] RECD: 03/19/23 STATUS: HEMANT JOHNSTON NUM: [id number] ASAD: 03/19/23-[address] [facility] [address]: Karan Romero MD ENTERED: 03/19/[address] [facility] DR: MERE TYPE: Surgical DEPT: S ORDERED: [...] Entirely submitted in one cassette labeled B1. -------- Specimen: [id number] Received: 03/19/23 Status: HEMANT Johnston Num: [id number] Spec Type: Surgical Subm Dr: Karan Romero MD Tissues: A Duodenum - Biopsy (DUODENAL BX) B Esophagus Biopsy (ESOPHAGEAL) Procedures: HE/4, Gross/Micro L4/2 -------- Patient: Vy Mckeon [id number] (Continued) -------- Specimen: [id number] Received: 03/19/23 (Continued) Signed (signature on file) Doris Reynolds MD 03/20/23 1117 -------- Specimen: [id number] Received: 03/19/23 Status: HEMANT Johnston Num: [id number] Spec Type: Surgical Subm Dr: Karan Romero MD Tissues: A Duodenum - Biopsy (DUODENAL BX) B Esophagus Biopsy (ESOPHAGEAL) Procedures: HE/4, Gross/Micro L4/2 -------- Patient: Vy Mckeon [id number] (Continued) -------- Specimen: [id number] Received: 03/19/23 (Continued) Microscopic Description A. Two with H E stained material have been examined. The microscopic findings support the above pathologic diagnosis. B. Two with H E stained material have been examined. The microscopic findings support the above pathologic diagnosis. CPT Codes 35381 x 2 -------- -------- Specimen: [id number] Received: 03/19/23 Status: HEMANT Johnston Num: [id number] Spec Type: Surgical Subm Dr: Karan Romero MD Tissues: A Duodenum - Biopsy (DUODENAL BX) B Esophagus Biopsy (ESOPHAGEAL) Procedures: HE/Maday, Gross/Micro L4/2 -------- Patient: Vy Mckeon [id number] (Continued) -------- Signed (signature on file) Doris Reynolds MD 03/20/23 1117 Normal [facility] CBC AUTO DIFFon 02-09-2023 BASO # 0.0 103/ul Normal 0.0-0.1 [facility] Comment on above: Performed By: #### C ####[facility] [address] [place], [place] [address]An. Yilan Branham Basophils/100 WBC (Bld) 0.3 % Normal 0.2-2.0 [facility] Comment on above: Performed By: #### C BC ####[facility] [address] [place], [place] [address]Dr. Zafar Branham EO # 0.2 103/ul Normal 0.0-0.7 [facility] Comment on above: Performed By: #### C BC ####[facility] [address] [place], [place] [address]Dr. Zafar Branham Eosinophils/100 WBC (Bld) 1.7 % Normal 0.9-7.0 [facility] Comment on above: Performed By: #### C BC ####[facility] [address] [place], [place] [address]Dr. Zafar Branham Erythrocyte distribution width (RBC) [Ratio] 13.9 % Normal 11.0-15.0 [facility] Comment on above: Performed By: #### C BC ####[facility] [address] [place], [place] [address]Dr. Zafar Branham Hematocrit (Bld) [Volume fraction] 41.0 % Normal 36.0-48.0 [facility] Comment on above: Performed By: #### C BC ####[facility] [address] [place], [place] [address]Dr. Zafar Branham Hemoglobin (Bld) [Mass/Vol] 13.4 g/dL Normal 12.0-16.0 [facility] Comment on above: Performed By: #### C BC ####[facility] [address] [place], [place] [address]Dr. Zafar Branham IG # 0.03 10e3/ul Normal 0.00-0.03 [facility] Comment on above: Performed By: #### C BC ####[facility] [address] [place], [place] [address]Dr. Zafar Branham IG % 0.3 % Normal 0.0-0.5 [facility] Comment on above: Performed By: #### C BC ####[facility] [address] [place], [place] [address]Dr. Zafar Branham LYMPH # 1.4 103/ul Normal 1.2-3.8 [facility] Comment on above: Performed By: #### C BC ####[facility] [address] [place] [address]Dr. Kathytere Branham Lymphocytes/100 WBC (Bld) 14.8 % Critically low 20.5-60.0 [facility] Comment on above: Performed By: #### C BC ####[facility] [address] [place] [address]Dr. Zafar Branham MANUAL DIFF REQ NO Normal [facility] Comment on above: Performed By: #### C BC ####[facility] [address] [place] [address]Dr. Zafar Branham MCH (RBC) [Entitic mass] 28.8 pg Normal 26.7-34.0 [facility] Comment on above: Performed By: #### C BC ####[facility] [address] [place], [place] [address]Dr. Zafar Yonas MCHC (RBC) [Mass/Vol] 32.7 g/dL Normal 29.9-35.2 [facility] Comment on above: Performed By: #### C BC ####[facility] [address] [place], [place] [address]Dr. Zafar Branham MCV (RBC) [Entitic vol] 88.0 fL Normal 81.0-99.0 [facility] Comment on above: Performed By: #### C BC ####[facility] [address] [place] [address]Dr. Zafar Branham MONO # 0.4 103/ul Normal 0.3-0.8 [facility] Comment on above: Performed By: #### C BC ####[facility] [address] [place], [place] [address]Dr. Zafar Branham Monocytes/100 WBC (Bld) 3.9 % Normal 1.7-12.0 [facility] Comment on above: Performed By: #### C BC ####[facility] [address] [place], [place] [address]Dr. Zafar Branham NEUT # 7.2 103/ul Critically high 1.4-6.5 [facility] Comment on above: Performed By: #### C BC ####[facility] [address] [place] [id number]. Zafar Branham Neutrophils/100 WBC (Bld) 79.0 % Critically high 43.0-75.0 [facility] Comment on above: Performed By: #### C BC ####[facility] [address] [place] [address]Dr. Zafar Branham Platelet mean volume (Bld) [Entitic vol] 10.7 fL Normal 9.5-13.5 [facility] Comment on above: Performed By: #### C BC ####[facility] [address] [place] [address]Dr. Zafar Branham PLT 353 103/ul Normal 150-450 [facility] Comment on above: Performed By: #### C BC ####[facility] [address] [place] [address]Dr. Zafar Branham RBC 4.66 106/ul Normal 4.20-5.40 [facility] Comment on above: Performed By: #### C BC ####[facility] [address] [place] [address]Dr. Zafar Branham WBC 9.2 103/ul Normal 4.0-11.0 [facility] Comment on above: Performed By: #### C BC ####[facility] [address] [place] [address]Dr. Zafar Branham CRPon 02-09-2023 CRP 1.0 mg/dL Normal <=1.0 [facility] Comment on above: Performed By: #### C RP, CMP, TSH, LIPID ####[facility] [address] [place] [address]Dr. Zafar Branham FREE T4on 02-09-2023 Free T4 [Mass/Vol] 1.01 ng/dL Normal 0.76-1.46 [facility] Comment on above: Performed By: #### F T4 #### [facility] [address] [place], [place] [address] Dr. Zafar Branham LIPID PROFILEon 02-09-2023 CHOL-HDL RATIO NORM SEE BELOW Normal [facility] Comment on above: Result Comment: 3.3 - 4.4 LOW RISK 4.4 - 7.1 AVERAGE RISK 7.1 - 11.0 MODERATE RISK >11.0 HIGH RISK Performed By: #### C RP, CMP, TSH, LIPID ####[facility] [address] [place] [id number]. Zafar Branham Cholesterol [Mass/Vol] 230 mg/dL Critically high <=200 [facility] Comment on above: Performed By: #### C RP, CMP, TSH, LIPID ####[facility] [address] [place] [address]Dr. Zafar Branham Cholesterol in HDL [Mass/Vol] 71 mg/dL Critically high 40-60 [facility] Comment on above: Performed By: #### C RP, CMP, TSH, LIPID ####[facility] [address] [place] [address]Dr. Zafar Branham Cholesterol in LDL [Mass/Vol] 139.4 mg/dL Normal [facility] Comment on above: Performed By: #### C RP, CMP, TSH, LIPID ####[facility] [address] [place] [address]Dr. Zafar Branham Cholesterol.total/C holesterol in HDL [Mass ratio] 3.2 {ratio} Normal [facility] Comment on above: Performed By: #### C RP, CMP, TSH, LIPID ####[facility] [address] [place] [address]Dr. Zafar Branham HDL NORMAL > or = 60 mg/dl - LO W CARDIOVASCULAR RISK <40 mg/dl - HIGH CARDIOVASCULAR RISK Normal [facility] Comment on above: Performed By: #### C RP, CMP, TSH, LIPID ####[facility] [address] [place] [address]Dr. Zafar Branham LDL CALC NORMAL SEE BELOW Normal [facility] Comment on above: Result Comment: <100 mg/dl OPTIMAL 100 - 129 mg/dl NEAR OR ABOVE OPTIMAL 130 - 159 mg/dl BORDERLINE HIGH 160 - 189 mg/dl HIGH >190 mg/dl VERY HIGH Performed By: #### C RP, CMP, TSH, LIPID ####[facility] [address] [place], [place] [address]WbDr. Zafar Branham Triglyceride [Mass/Vol] 98 mg/dL Normal <=150 [facility] Comment on above: Performed By: #### C RP, CMP, TSH, LIPID ####[facility] [address] [place], [place] [address]GrBryant Branham VLDL CALC 19.6 mg/dL Normal [facility] Comment on above: Performed By: #### C RP, CMP, TSH, LIPID ####[facility] [address] [place] [id number] Branham URon 02-09-2023 , QUAL Negative Normal NEGATIVE [facility] Comment on above: Performed By: #### U AMIC, PREGU #### [facility] [address] [place] [address] [address] Zafar Branham PROF 14(COMP METB)on 023 Albumin [Mass/Vol] 4.0 g/dL Normal 3.4-5.0 [facility] Comment on above: Performed By: #### C RP, CMP, TSH, LIPID #### [facility] [address] [place] [address] [address] Zafar Branham Albumin/Globulin [Mass ratio] 0.9 {ratio} Normal [facility] Comment on above: Performed By: #### C RP, CMP, TSH, LIPID #### [facility] [address] [place] [address] [address] Zafar Branham ALP [Catalytic activity/Vol] 94 U/L Normal 46-116 [facility] Comment on above: Performed By: #### C RP, CMP, TSH, LIPID #### [facility] [address] [place] [address] [address] Zafar Branham ALT [Catalytic activity/Vol] 30 U/L Normal 14-59 [facility] Comment on above: Performed By: #### C RP, CMP, TSH, LIPID #### [facility] [address] [place] [address] [address] Zafar Branham Anion gap [Moles/Vol] 13.6 mmol/L Normal [facility] Comment on above: Performed By: #### C RP, CMP, TSH, LIPID #### [facility] [address] [place] [address] [address] Zafar Branham AST [Catalytic activity/Vol] 23 U/L Normal 15-37 [facility] Comment on above: Performed By: #### C RP, CMP, TSH, LIPID #### [facility] [address] [place] [address] [address] Zafar Branham Bilirubin [Mass/Vol] 0.3 mg/dL Normal 0.2-1.0 [facility] Comment on above: Performed By: #### C RP, CMP, TSH, LIPID #### [facility] [address] [place] [address] [address] Zafar Branham Calcium [Mass/Vol] 9.7 mg/dL Normal 8.5-10.1 [facility] Comment on above: Performed By: #### C RP, CMP, TSH, LIPID #### [facility] [address] [place] [address] [address] Zafar Branham Chloride [Moles/Vol] 100 mmol/L Normal 98-107 [facility] Comment on above: Performed By: #### C RP, CMP, TSH, LIPID #### [facility] [address] [place] [address] [address] Zafar Branham CO2 [Moles/Vol] 26.6 mmol/L Normal 21.0-32.[address] [facility] Comment on above: Performed By: #### C RP, CMP, TSH, LIPID #### [facility] [address] [place] [address] [address] Zafar Branham Creatinine [Mass/Vol] 1.00 mg/dL Normal 0.55-1.02 [facility] Comment on above: Performed By: #### C RP, CMP, TSH, LIPID #### [facility] [address] [place] [address] [address] Zafar Branham EGFR-AF URUGUAYAN >60 Normal >=60 [facility] Comment on above: Performed By: #### C RP, CMP, TSH, LIPID #### [facility] [address] [place] [address] [address] Zafar Branham EGFR-NON AF URUGUAYAN >60 Normal >=60 [facility] Comment on above: Performed By: #### C RP, CMP, TSH, LIPID #### [facility] [address] [place] [address] [address] Zafar Branham Globulin (S) [Mass/Vol] 4.5 g/dL Normal [facility] Comment on above: Performed By: #### C RP, CMP, TSH, LIPID #### [facility] [address] [place] [address] Dr. Zafar Branham Glucose [Mass/Vol] 93 mg/dL Normal 74-106 [facility] Comment on above: Performed By: #### C RP, CMP, TSH, LIPID #### [facility] [address] [place] [address] Dr. Zafar Branham Potassium [Moles/Vol] 4.2 mmol/L Normal 3.5-5.1 [facility] Comment on above: Performed By: #### C RP, CMP, TSH, LIPID #### [facility] [address] [place] [address] Dr. Zafar Branham Protein [Mass/Vol] 8.5 g/dL Critically high 6.4-8.2 [facility] Comment on above: Performed By: #### C RP, CMP, TSH, LIPID #### [facility] [address] [place] [address] Dr. Zafar Branham Sodium [Moles/Vol] 136 mmol/L Normal 136-145 [facility] Comment on above: Performed By: #### C RP, CMP, TSH, LIPID #### [facility] [address] [place] [address] Dr. Zafar Branham Urea nitrogen [Mass/Vol] 10.0 mg/dL Normal 7.0-18.0 [facility] Comment on above: Performed By: #### C RP, CMP, TSH, LIPID #### [facility] [address] [place] [address] [address] Zafar Branham Urea nitrogen/Creatinine [Mass ratio] 10.0 mg/mg Normal [facility] Comment on above: Performed By: #### C RP, CMP, TSH, LIPID #### [facility] [address] [place] [address] [address] Zafar Branham [facility] SED RATE 49 mm/hr Critically high <=20 [facility] Comment on above: Performed By: #### S EDR ####[facility] [address] [place] [address]Dr. Zafar Branham TSHon 02-09-2023 TSH 0.590 uIU/mL Normal 0.358-3.740 [facility] Comment on above: Performed By: #### C RP, CMP, TSH, LIPID #### [facility] [address] [place] [address] [address] Zafar Branham UA RANDOM W/MICROSCOPICon BACTERIA NONE SEEN Normal NONE SEEN [facility] Comment on above: Performed By: #### U AMIC, PREGU #### [facility] [address] [place] [address] [address] Zafar Branham Bilirubin Ql (U) Negative Normal NEGATIVE The [facility] Comment on above: Performed By: #### U AMIC, PREGU #### [facility] [address] [place] [address] Dr. Zafar Branham CAST NONE SEEN Normal NONE SEEN [facility] Comment on above: Performed By: #### U AMIC, PREGU #### [facility] [address] [place] [address] Dr. Zafar Branham Clarity (U) CLEAR Normal CLEAR [facility] Comment on above: Performed By: #### U AMIC, PREGU #### [facility] [address] [place] [address] Dr. Zafar Branham Color (U) LT. YELLOW Normal YELLOW [facility] Comment on above: Performed By: #### U AMIC, PREGU #### [facility] [address] [place] [address] Dr. Zafar Branham Crystals LM Nom (Urine sed) NONE SEEN Normal NONE SEEN [facility] Comment on above: Performed By: #### U AMIC, PREGU #### [facility] [address] [place] [address] [address] Zafar Branham Epithelial cells LM Ql (Urine sed) FEW Abnormal NONE SEEN /RARE [facility] Comment on above: Performed By: #### U AMIC, PREGU #### [facility] [address] [place] [address] [address] Zafar Branham Glucose Ql (U) Negative Normal NEGATIVE The [facility] Comment on above: Performed By: #### U AMIC, PREGU #### [facility] [address] [place] [address] Dr. Zafar Branham Hemoglobin Ql (U) SMALL Abnormal NEGATIVE The [facility] Comment on above: Performed By: #### U AMIC, PREGU #### [facility] [address] [place] [address] Dr. Zafar Branham Ketones Ql (U) Negative Normal NEGATIVE [facility] Comment on above: Performed By: #### U AMIC, PREGU #### [facility] [address] [place] [address] [address] Zafar Branham LEUKOCYTES Negative Normal NEGATIVE [facility] Comment on above: Performed By: #### U AMIC, PREGU #### [facility] [address] [place] [address] [address] Zafar Branham MUCOUS NONE SEEN Normal NONE SEEN [facility] Comment on above: Performed By: #### U AMIC, PREGU #### [facility] [address] [place] [address] [address] Zafar Branham Nitrite Ql (U) Negative Normal NEGATIVE [facility] Comment on above: Performed By: #### U AMIC, PREGU #### [facility] [address] [place] [address] Dr. Zafar Branham pH (U) 6.0 [pH] Normal 5-9 [facility] Comment on above: Performed By: #### U AMIC, PREGU #### [facility] [address] [place] [address] [address] Zafar Branham RBC 0-2 Normal 0-2 [facility] Comment on above: Performed By: #### U AMIC, PREGU #### [facility] [address] [place] [address] [address] Zafar Branham SPEC GRAVITY <=1.005 Abnormal 1.005-<=1.025 [facility] Comment on above: Performed By: #### U AMIC, PREGU #### [facility] [address] [place] [address] [address] Zafar Branham UA PROTEIN Negative Normal NEGATIVE/ TRACE [facility] Comment on above: Performed By: #### U AMIC, PREGU #### [facility] [address] [place] [address] [address] Zafar Branham Urobilinogen Qn (U) 0.2 {Ramy'U}/dL Normal 0.2 - 1. 0 [facility] Comment on above: Performed By: #### U AMIC, PREGU #### [facility] [address] [place] [address] [address] Zafar Branham WBC NONE SEEN Normal NONE SEEN [facility] Comment on above: Performed By: #### U AMIC, PREGU #### [facility] [address] [place] [address] [address] Zafar Branham XR knee RT 4V*on 02-07-2023 XR knee RT 4V* [facility] [employer] Other XR knee RT 4V* [facility] [employer] Other XR knee RT 4V* [address] [place] [address] [employer] Other XR knee RT 4V* [facility] No rt [employer] Other XR knee RT 4V* XRay Report [employer] Other XR knee RT 4V* Signed [employer] Other XR knee RT 4V* Patient: Vy Mckeon MR#: [id number] [employer] Other XR knee RT 4V* 5 [employer] Other XR knee RT 4V* : 1990 Acct:[id number] [employer] Other XR knee RT 4V* Age/Sex: 32 / F ADM Date: 02/07/23 [employer] Other XR knee RT 4V* Loc: XDUCLY Room: Type: [facility] [employer] Other XR knee RT 4V* Attending Dr: Shayla DENNEY [employer] Other XR knee RT 4V* Copies to: JUMANA Christianson [employer] Other XR knee RT 4V* Ordering Provider: JUMANA Christianson [employer] Other XR knee RT 4V* Date of Service: 02/07/23 [employer] Other XR knee RT 4V* XR/XR knee RT 4V*: RIGHT KNEE PAIN [employer] Other XR knee RT 4V* RIGHT KNEE - 4 views [employer] Other XR knee RT 4V* COMPARISON: None [employer] Other XR knee RT 4V* CLINICAL DATA: Patient fell last night and landed on right anterior knee. Pain, swelling and [employer] Other XR knee RT 4V* abrasions. [employer] Other XR knee RT 4V* AP, lateral and both oblique views were obtained. There is no fracture or dislocation. There is no [employer] Other XR knee RT 4V* significant knee effusion or focal soft tissue swelling. [employer] Other XR knee RT 4V* XR/XR knee RT 4V* [employer] Other XR knee RT 4V* IMPRESSION: [employer] Other XR knee RT 4V* NO ACUTE BONY INJURY. [employer] Other XR knee RT 4V* Impression dictated by: Rama Garsia M.D.02/07/2023 10:01 AM [employer] Other XR knee RT 4V* Dictation Location: [facility]--10 [employer] Other XR knee RT 4V* Transcribed By: MILKA 02/07/23 1001 [employer] Other XR knee RT 4V* Dictated By: Rama Garsia MD 02/07/23 1000 [employer] Other XR knee RT 4V* Signed By: [employer] Other XR knee RT 4V* 02/07/23 1001 [employer] Other XR knee RT 4V* [facility] [address] [place] [address] XRay Report Signed Patient: Vy Mckeon MR#: [id number] 5 : 1990 Acct:[id number] Age/Sex: 32 / F ADM Date: 02/07/23 Loc: XDUCLY Room: Type: [facility] Attending Dr: Shayla DENNEY Copies to: JUMANA [...] Rama Garsia M.D.02/07/2023 10:01 AM Dictation Location: [place] [address] Transcribed By: [facility] 02/07/23 1001 Dictated By: Rama Garsia MD 02/07/23 1000 Signed By: 02/07/23 1001 [facility] XR HIPS KARELY 5V W PELVISon [...] JO-ANN CHACON Date: 2022-12-17 13:04 Normal [facility] PREG QUANT HCGon 07-04-2022 HCG QUANT 1 mIU/mL Normal [facility] Comment on above: Performed By: #### P REGQNT #### [facility] [address] [place] [address] Dr. Zafar Branham HCG RANGE SEE BELOW Normal [facility] Comment on above: Result Comment: 5-50 0.2-1 WEEK 50-500 1-2 WEEKS 100-5,000 2-3 WEEKS 500-10,000 3-4 WEEKS 1,000-50,000 4-5 WEEKS 10,000-100,000 5-6 WEEKS 15,000-200,000 6-8 WEEKS 10,000-100,000 2-3 MONTHS Performed By: #### P REGQNT #### [facility] [address] [place] [address] Dr. Zafar Branham PREG QUANT HCGon 06-08-2022 HCG QUANT 16 mIU/mL Normal [facility] Comment on above: Performed By: #### P REGQNT ####[facility] [address] [place], [place] [address]TyDr. Zafar Branham HCG RANGE SEE BELOW Normal [facility] Comment on above: Result Comment: 5-50 0.2-1 WEEK 50-500 1-2 WEEKS 100-5,000 2-3 WEEKS 500-10,000 3-4 WEEKS 1,000-50,000 4-5 WEEKS 10,000-100,000 5-6 WEEKS 15,000-200,000 6-8 WEEKS 10,000-100,000 2-3 MONTHS Performed By: #### P REGQNT ####[facility] [address] [place], [place] [address]CtDr. Zafar Branham CBC AUTO DIFFon 05-23-2022 BASO # 0.0 103/ul Normal 0.0-0.1 [facility] Comment on above: Performed By: #### C BC #### [facility] [address] [place] [address] [address] Zafar Branham Basophils/100 WBC (Bld) 0.6 % Normal 0.2-2.0 [facility] Comment on above: Performed By: #### C BC #### [facility] [address] [place] [address] [address] Zafar Branham EO # 0.3 103/ul Normal 0.0-0.7 [facility] Comment on above: Performed By: #### C BC #### [facility] [address] [place] [address] [address] Zafar Branham Eosinophils/100 WBC (Bld) 6.5 % Normal 0.9-7.0 [facility] Comment on above: Performed By: #### C BC #### [facility] [address] [place] [address] [address] Zafar Branham Erythrocyte distribution width (RBC) [Ratio] 12.5 % Normal 11.0-15.0 [facility] Comment on above: Performed By: #### C BC #### [facility] [address] [place] [address] [address] Zafar Branham Hematocrit (Bld) [Volume fraction] 37.2 % Normal 36.0-48.0 [facility] Comment on above: Performed By: #### C BC #### [facility] [address] [place] [address] Dr. Zafar Branham Hemoglobin (Bld) [Mass/Vol] 12.1 g/dL Normal 12.0-16.0 [facility] Comment on above: Performed By: #### C BC #### [facility] [address] [place] [address] Dr. Zafar Branham IG # 0.01 10e3/ul Normal 0.00-0.03 [facility] Comment on above: Performed By: #### C BC #### [facility] [address] [place] [address] Dr. Zafar Branham IG % 0.2 % Normal 0.0-0.5 [facility] Comment on above: Performed By: #### C BC #### [facility] [address] [place] [address] Dr. Zafar Branham LYMPH # 1.5 103/ul Normal 1.2-3.8 [facility] Comment on above: Performed By: #### C BC #### [facility] [address] [place] [address] Dr. Zafar Branham Lymphocytes/100 WBC (Bld) 29.8 % Normal 20.5-60.0 [facility] Comment on above: Performed By: #### C BC #### [facility] [address] [place] [address] Dr. Zafar Branham MANUAL DIFF REQ NO Normal [facility] Comment on above: Performed By: #### C BC #### [facility] [address] [place] [address] Dr. Zafar Branham MCH (RBC) [Entitic mass] 29.1 pg Normal 26.7-34.0 [facility] Comment on above: Performed By: #### C BC #### [facility] [address] [place] [address] Dr. Zafar Branham MCHC (RBC) [Mass/Vol] 32.5 g/dL Normal 29.9-35.2 [facility] Comment on above: Performed By: #### C BC #### [facility] [address] [address] [address] Zafar Branham MCV (RBC) [Entitic vol] 89.4 fL Normal 81.0-99.0 [facility] Comment on above: Performed By: #### C BC #### [facility] [address] [address] [address] Zafar Branham MONO # 0.4 103/ul Normal 0.3-0.8 [facility] Comment on above: Performed By: #### C BC #### [facility] [address] [address] [address] Zafar Branham Monocytes/100 WBC (Bld) 7.9 % Normal 1.7-12.0 [facility] Comment on above: Performed By: #### C BC #### [facility] [address] [place] [address] Dr. Zafar Branham NEUT # 2.7 103/ul Normal 1.4-6.5 [facility] Comment on above: Performed By: #### C BC #### [facility] [address] [place] [address] Dr. Zafar Branham Neutrophils/100 WBC (Bld) 55.0 % Normal 43.0-75.0 [facility] Comment on above: Performed By: #### C BC #### [facility] [address] [place] [address] Dr. Zafar Branham Platelet mean volume (Bld) [Entitic vol] 10.0 fL Normal 9.5-13.5 [facility] Comment on above: Performed By: #### C BC #### [facility] [address] [place] [address] Dr. Zafar Branham PLT 229 103/ul Normal 150-450 [facility] Comment on above: Performed By: #### C BC #### [facility] [address] [place] [address] Dr. Zafar Branham RBC 4.16 106/ul Critically low 4.20-5.40 [facility] Comment on above: Performed By: #### C BC #### [facility] [address] [place] [address] Dr. Zafar Branham WBC 5.0 103/ul Normal 4.0-11.0 [facility] Comment on above: Performed By: #### C BC #### [facility] [address] [place], [place] [address] Dr. Zafar Branham TYPE AND SCREENon 05-23-2022 TYPE AND SCREEN Negative Normal [facility] Comment on above: Performed By: #### T NS ####[facility] [id number] [place], [place] [address]OwDr. Zafar Branham Covid-19 PCR (CVDTB)on 05-01 SARS-CoV-2 (COVID-19) RNA MANOLO+probe Ql (Unsp spec) Not detected Normal NOT DETECTED [facility] Comment on above: Result Comment: This test is not yet approved or cleared by the [place] FDA. When there are no FDA-approved or cleared tests available, and other criteria are met, FDA can make tests available under an emergency access mechanism called an Emergency Use Authorization (EUA). The EUA for this test is supported by the [place] of Health and Human Service's (HHS's) declaration [...] consistent with SARS-CoV-2. Performed By: #### C VDTBH #### [facility] [address] [place], [place] [address] Dr. Zafar Branham US PREG TVon 05-18-2022 [...] BOBBI SIMONS Date: 2022-05-18 19:25 Normal [facility] US PREG TVon 05-03-2022 US PREG TV [...] by: BOBBI SIMONS Date: 2022-05-03 16:32 Normal [facility] Chlamydia/GC DNA, TPon 05-05 Chlamydia Probe, TP Negative Normal NEG [facility] Comment on above: Result Comment: CHLA MYDIA [...] nucleic acid target. Performed By: #### [facility] #### [place] [id number] Glass Artist: King Boone MD Gonorrhea Probe, TP Negative Normal NEG [facility] Comment on above: Result Comment: NEIS SERIA [...] nucleic acid target. Performed By: #### C YTC #### [address] [address] Glass Artist: King Boone MD HPV DNA High Riskon 05-05-20 20 HPV Interp [facility] Comment on above: Result Comment: This [...] other forensic purposes. Performed By: #### H PV #### [address] [address] Glass Artist: King Boone MD HPV Type 16 Not Detected [facility] Comment on above: Performed By: #### H PVH #### [facility] [address] [place] [id number] Glass Artist: King Boone MD HPV Type 18 Not Detected [facility] Comment on above: Performed By: #### H PVH #### [facility] [employer] [address] [place] [id number] Glass Artist: King Boone MD Other High Risk HPV Not Detected Normal [facility] Comment on above: Performed By: #### H PVH #### [facility] [place] [address] Glass Artist: King Boone MD HPV Sample .THIN PREP Normal [facility] Comment on above: Performed By: #### H PVH #### [facility] [place] [address] Glass Artist: King Boone MD Source .ENDOCERVIX Normal [facility] Comment on above: Performed By: #### H PVH #### [facility] [employer] [facility] [place] [address] Glass Artist: King Boone MD Otheron 05-04-2020 Direct Exam Negative [place] VAGINITIS DNA PROBEon 2019 Direct Exam Positive Abnormal [place] Direct Exam Method of testing is a DNA probe intended for detection and identification of Diane species, Gardnerella vaginalis, and Trichomonas vaginalis nucleic acid in vaginal fluid specimens from patients with symptoms of vaginitis/vaginosis. [place] Interpretation and review of laboratory results Abnormal [place] Special Requests NOT REPORTED [place] Specimen Description .VAGINAL SWAB [place] Vaginitis DNA Probeon 2019 Vaginitis DNA Probe Specimen Description .VAGINAL SWAB Special Requests NOT REPORTED Direct Exam POSITIVE for Gardnerella vaginalis. NEGATIVE for Diane sp. NEGATIVE for Trichomonas vaginalis Method of testing is a DNA probe intended for detection and identification of Diane species, Gardnerella vaginalis, and Trichomonas vaginalis nucleic acid in vaginal fluid specimens from patients with symptoms of vaginitis/vaginosis. Report Status FINAL 05/04/2020 Normal [facility] Comment on above: Performed By: #### V AGDNA #### [facility] [employer] [address] [place] [id number] Glass Artist: King Boone MD Cytologyon 05-03-2020 Cytology (NOTE) INTERPRETATION Endocervical material, (Thin prep vial, Imaging-assisted review): Specimen Adequacy: Satisfactory for evaluation. - Endocervical/transfor mation zone component present. Descriptive Diagnosis: Negative for intraepithelial lesion or malignancy. Shift in ray suggestive of bacterial vaginosis. Comments: High Risk HPV testing was ordered. Carbide Powder Processor: JAYLIN Higgins(ASCP) Electronically Signed Out ana/05/07/2020 Procedure/Addendum [...] GYNECOLOGIC CYTOLOGY REPORT Patient Name: VY MCKEON [facility] Rec: [id number] Path Number: [id number] [facility] ANATOMIC PATHOLOGY [address] [place] [address]. [place], [place] [address] [facility] Comment on above: Performed By: #### P PPVP #### [employer] [address] [place] [address] [id number] Glass Artist: King Boone MD Vital Signs Date Time Vital Sign Value Performing Clinician Facility 01-21-2024 11:59-0400 Body height 170.2 cm Ana Peoples MD Work Phone: [facility] 01-21-2024 11:59-0400 Body mass index (BMI) [Ratio] 30.07 kg/m2 Ana Peoples MD Work Phone: [facility] 01-21-2024 11:59-0400 Body weight 87.1 kg Ana Peoples MD Work Phone: [facility] 01-21-2024 11:59-0400 Diastolic blood pressure 75 mm[Hg] Ana Peoples MD Work Phone: [facility] 01-21-2024 11:59-0400 Heart rate 108 /min Ana Peoples MD Work Phone: [facility] 01-21-2024 11:59-0400 Systolic blood pressure 125 mm[Hg] Ana Peoples MD Work Phone: [facility] 01-21-2024 11:02-0400 Body height 170.2 cm Ana Peoples MD Work Phone: [facility] 01-21-2024 11:02-0400 Body mass index (BMI) [Ratio] 30.07 kg/m2 Ana Peoples MD Work Phone: [facility] 01-21-2024 11:02-0400 Body weight 87.09 kg Ana Peoples MD Work Phone: [facility] 01-04-2024 14:31-0400 Body temperature 97.11 [degF] Fransico Sharp MD Work Phone: [facility] 01-04-2024 14:31-0400 Diastolic blood pressure 83 mm[Hg] Fransico Sharp MD Work Phone: [facility] 01-04-2024 14:31-0400 Heart rate 94 /min Fransico Sharp MD Work Phone: [facility] 01-04-2024 14:31-0400 Respiratory rate 20 /min Fransico Sharp MD Work Phone: [facility] 01-04-2024 14:31-0400 SaO2% (BldA) [Mass fraction] 99 % Fransico Sharp MD Work Phone: [facility] 01-04-2024 14:31-0400 Systolic blood pressure 148 mm[Hg] Fransico Sharp MD Work Phone: [facility] 12-17-2023 13:42-0400 Body height 170.2 cm Freddie Ordoñezjas CIGAR HEAD HOLER-CHIEF COMPRESSOR STATION ENGINEER Work Phone: [facility] 12-17-2023 13:42-0400 Body mass index (BMI) [Ratio] 29.47 kg/m2 Freddie Ordoñezjas CIGAR HEAD HOLER-CHIEF COMPRESSOR STATION ENGINEER Work Phone: [facility] 12-17-2023 13:42-0400 Body temperature 98.71 [degF] Freddie Ordoñezjas CIGAR HEAD HOLER-CHIEF COMPRESSOR STATION ENGINEER Work Phone: [facility] 12-17-2023 13:42-0400 Body weight 85.37 kg Freddie Ordoñezjas CIGAR HEAD HOLER-CHIEF COMPRESSOR STATION ENGINEER Work Phone: [facility] 12-17-2023 13:42-0400 Diastolic blood pressure 80 mm[Hg] Freddie Delgado CIGAR HEAD HOLER-CHIEF COMPRESSOR STATION ENGINEER Work Phone: [facility] 12-17-2023 13:42-0400 Heart rate 86 /min Freddie Delgado CIGAR HEAD HOLER-CHIEF COMPRESSOR STATION ENGINEER Work Phone: [facility] 12-17-2023 13:42-0400 SaO2% (BldA) [Mass fraction] 96 % Freddie Delgado CIGAR HEAD HOLER-CHIEF COMPRESSOR STATION ENGINEER Work Phone: [facility] 12-17-2023 13:42-0400 Systolic blood pressure 128 mm[Hg] Freddie Delgado CIGAR HEAD HOLER-CHIEF COMPRESSOR STATION ENGINEER Work Phone: [facility] 11-12-2023 13:13-0500 Body mass index (BMI) [Ratio] 28.47 kg/m2 Dionne Xiao PA Work Phone: [facility] 11-12-2023 13:13-0500 Body weight 82.46 kg Dionne Xiao PA Work Phone: [facility] 11-12-2023 13:13-0500 Diastolic blood pressure 72 mm[Hg] Dionne Xiao PA Work Phone: [facility] 11-12-2023 13:13-0500 Systolic blood pressure 114 mm[Hg] Dionne Xiao PA Work Phone: [facility] 05-29-2023 13:25-0400 Body height 170.18 cm Shayla Valle Other [facility] Other 05-29-2023 13:25-0400 Body mass index (BMI) [Ratio] 28.22 kg/m2 Shayla Tori Other [facility] Other 05-29-2023 13:25-0400 Body temperature 97.8 [degF] Shayla Tori Other [facility] Other 05-29-2023 13:25-0400 Body weight 81.74 kg Shayla Tori Other [facility] Other 05-29-2023 13:25-0400 Diastolic blood pressure 79 mm[Hg] Shayla Tori Other [facility] Other 05-29-2023 13:25-0400 Respiratory rate 18 /min Shayla Vlale Other [facility] Other 05-29-2023 13:25-0400 SaO2% (BldA) [Mass fraction] 96 % Shayla Tori Other [facility] Other 05-29-2023 13:25-0400 Systolic blood pressure 127 mm[Hg] Shayla Tori Other [employer] [facility] [employer] Other 03-19-2023 14:37-0400 Diastolic blood pressure 69 mm[Hg] PRODUCE SPECIALIST-C Shayla Tori Work Phone: [facility] 03-19-2023 14:37-0400 Heart rate 76 /min PRODUCE SPECIALIST-C Shayla Tori Work Phone: [facility] 03-19-2023 14:37-0400 Respiratory rate 16 /min PRODUCE SPECIALIST-C Shayla Tori Work Phone: [facility] 03-19-2023 14:37-0400 SaO2% (BldA) [Mass fraction] 96 % PRODUCE SPECIALIST-C Shayla Tori Work Phone: [facility] 03-19-2023 14:37-0400 Systolic blood pressure 119 mm[Hg] PRODUCE SPECIALIST-C Shayla Tori Work Phone: [facility] 03-19-2023 12:18-0400 Body height 170.18 cm PRODUCE SPECIALIST-C Shayla Tori Work Phone: [facility] 03-19-2023 12:18-0400 Body temperature 97.9 [degF] PRODUCE SPECIALIST-C Shayla Tori Work Phone: [facility] 03-19-2023 12:18-0400 Body weight 84.82 kg PRODUCE SPECIALIST-C Shayla Tori Work Phone: [facility] 02-12-2023 14:30-0400 Body height 170.18 cm Yoel Jarrett Other [facility] [employer] Other 05-15-2023 14:30-0400 Body mass index (BMI) [Ratio] 30.54 kg/m2 Yoel Scdonna Other [facility] Other 02-12-2023 14:30-0400 Body weight 88.45 kg Yoel Scovanner Other [facility] Other 02-12-2023 14:30-0400 Diastolic blood pressure 80 mm[Hg] Yoel Scovanner Other [facility] Other 02-12-2023 14:30-0400 Systolic blood pressure 127 mm[Hg] Yoel Scovanner Other [facility] Other 02-07-2023 10:00-0400 Body height 170.18 cm Shayla Toir Other [facility] Other 02-07-2023 10:00-0400 Body mass index (BMI) [Ratio] 30.54 kg/m2 Shayla Tori Other [facility] Other 02-07-2023 10:00-0400 Body temperature 97.9 [degF] Shayla Tori Other [facility] Other 02-07-2023 10:00-0400 Body weight 88.45 kg Shayla Tori Other [facility] Other 02-07-2023 10:00-0400 Respiratory rate 18 /min Shayla Tori Other [facility] Other 02-07-2023 10:00-0400 SaO2% (BldA) [Mass fraction] 97 % Shayla Valle Other [facility] Other 05-03-2020 11:41-0400 BMI (Body Mass Index) 24.5 kg/m2 [facility] Work Phone: 05-03-2020 11:41-0400 Body Temperature 96.3 [degF] [facility] Work Phone: 05-03-2020 11:41-0400 Body weight 70.9 kg [facility] Work Phone: 05-03-2020 11:41-0400 BP Diastolic 80 mm[Hg] [facility] Work Phone: 05-03-2020 11:41-0400 BP Systolic 120 mm[Hg] [facility] Work Phone: 05-03-2020 11:41-0400 BSA (Body Surface Area) 1.82 m2 [facility] Work Phone: 05-03-2020 11:41-0400 Height 170.18 cm [facility] Work Phone: 05-03-2020 11:41-0400 Pulse (Heart Rate) 86 /min [facility] Work Phone: 05-03-2020 11:41-0400 Pulse Oximetry 93 % [facility] Work Phone: 05-03-2020 11:41-0400 Respiratory Rate 18 /min [facility] Work Phone: 04-08-2020 08:37-0400 BMI (Body Mass Index) 24.3 kg/m2 [facility] Work Phone: 04-08-2020 08:37-0400 Body Temperature 99 [degF] [facility] Work Phone: 04-08-2020 08:37-0400 Body weight 70.4 kg Sally [facility] Work Phone: 04-08-2020 08:37-0400 BP Diastolic 80 mm[Hg] [facility] Work Phone: 04-08-2020 08:37-0400 BP Systolic 110 mm[Hg] [facility] Work Phone: 04-08-2020 08:37-0400 BSA (Body Surface Area) 1.82 m2 [facility] Work Phone: 04-08-2020 08:37-0400 Height 170.18 cm [facility] Work Phone: 04-08-2020 08:37-0400 Pulse (Heart Rate) 82 /min [facility] Work Phone: 04-08-2020 08:37-0400 Pulse Oximetry 98 % [facility] Work Phone: 04-08-2020 08:37-0400 Respiratory Rate 18 /min [facility] Work Phone: 03-29-2020 09:52-0400 Body height 170.[address] [facility] Work Phone: [facility] Work Phone: Comment on above: self 03-29-2020 09:52-0400 Body mass index (BMI) [Ratio] 23.5 kg/m2 Sally Morejon [facility] Work Phone: [facility] Work Phone: Comment on above: self 03-29-2020 09:52-0400 Body surface area Derived from formula 1.79 m2 Sally Morejon [facility] Work Phone: [facility] Work Phone: Comment on above: self 03-29-2020 09:52-0400 Body weight 68.04 kg Sally Morejon CHIEF COMPRESSOR STATION ENGINEER Work Phone: [facility] Work Phone: Comment on above: self 10-14-2019 08:30-0500 BMI (Body Mass Index) 24.1 kg/m2 [facility] Work Phone: 10-14-2019 08:30-0500 Body Temperature 98.5 [degF] [facility] Work Phone: 10-14-2019 08:30-0500 Body weight 69.76 kg [facility] Work Phone: 10-14-2019 08:30-0500 BP Diastolic 78 mm[Hg] [facility] Work Phone: 10-14-2019 08:30-0500 BP Systolic 132 mm[Hg] [facility] Work Phone: 10-14-2019 08:30-0500 BSA (Body Surface Area) 1.81 m2 [facility] Work Phone: 10-14-2019 08:30-0500 Height 170.18 cm [facility] Work Phone: 10-14-2019 08:30-0500 Pulse (Heart Rate) 88 /min [facility] Work Phone: 10-14-2019 08:30-0500 Pulse Oximetry 98 % [facility] Work Phone: 10-14-2019 08:30-0500 Respiratory Rate 18 /min [facility] Work Phone: 10-14-2019 08:30-0500 SaO2% (BldA) [Mass fraction] 98 % [facility] Work Phone: [facility] Work Phone: 09-04-2019 13:52-0500 BMI (Body Mass Index) 22.9 kg/m2 [facility] Work Phone: 09-04-2019 13:52-0500 Body Temperature 98.5 [degF] Sally [facility] Work Phone: 09-04-2019 13:52-0500 Body weight 66.23 kg Sally [facility] Work Phone: 09-04-2019 13:52-0500 BP Diastolic 90 mm[Hg] [facility] Work Phone: 09-04-2019 13:52-0500 BP Systolic 122 mm[Hg] [facility] Work Phone: 09-04-2019 13:52-0500 BSA (Body Surface Area) 1.77 m2 Sally [facility] Work Phone: 09-04-2019 13:52-0500 Height 170.18 cm [facility] Work Phone: 09-04-2019 13:52-0500 Pulse (Heart Rate) 98 /min [facility] Work Phone: 09-04-2019 13:52-0500 Pulse Oximetry 98 % [facility] Work Phone: 09-04-2019 13:52-0500 Respiratory Rate 18 /min [facility] Work Phone: 09-04-2019 13:52-0500 SaO2% (BldA) [Mass fraction] 98 % [facility] Work Phone: [facility] Work Phone: 08-19-2019 09:32-0500 BMI (Body Mass Index) 23.2 kg/m2 Sally [facility] Work Phone: 08-19-2019 09:32-0500 Body Temperature 98 [degF] Sally [facility] Work Phone: 08-19-2019 09:32-0500 Body weight 67.31 kg Sally [facility] Work Phone: 08-19-2019 09:32-0500 BP Diastolic 80 mm[Hg] Sally [facility] Work Phone: 08-19-2019 09:32-0500 BP Systolic 120 mm[Hg] [facility] Work Phone: 08-19-2019 09:32-0500 BSA (Body Surface Area) 1.78 m2 Sally [facility] Work Phone: 08-19-2019 09:32-0500 Height 170.18 cm Sally [facility] Work Phone: 08-19-2019 09:32-0500 Pulse (Heart Rate) 90 /min Sally [facility] Work Phone: 08-19-2019 09:32-0500 Pulse Oximetry 98 % [facility] Work Phone: 08-19-2019 09:32-0500 Respiratory Rate 18 /min [facility] Work Phone: 08-19-2019 09:32-0500 SaO2% (BldA) [Mass fraction] 98 % [facility] Work Phone: [facility] Work Phone: 07-28-2019 11:31-0400 BMI (Body Mass Index) 22.7 kg/m2 [facility] Work Phone: 07-28-2019 11:31-0400 Body Temperature 98.8 [degF] Sally [facility] Work Phone: 07-28-2019 11:31-0400 Body weight 65.77 kg [facility] Work Phone: 07-28-2019 11:31-0400 BP Diastolic 84 mm[Hg] [facility] Work Phone: 07-28-2019 11:31-0400 BP Systolic 132 mm[Hg] [facility] Work Phone: 07-28-2019 11:31-0400 BSA (Body Surface Area) 1.76 m2 [facility] Work Phone: 07-28-2019 11:31-0400 Height 170.18 cm [facility] Work Phone: 07-28-2019 11:31-0400 Pulse (Heart Rate) 65 /min [facility] Work Phone: 07-28-2019 11:31-0400 Pulse Oximetry 97 % [facility] Work Phone: 07-28-2019 11:31-0400 Respiratory Rate 18 /min [facility] Work Phone: 07-28-2019 11:31-0400 SaO2% (BldA) [Mass fraction] 97 % [facility] Work Phone: [facility] Work Phone: Encounters Encounter Date Encounter Type Care Provider Facility Start: 01-29-2024 End: 01-29-2024 ambulatory [facility] Start: 01-28-2024 End: 01-28-2024 ambulatory DIONNE XIAO Not Available Start: 01-25-2024 Telephone encounter Fransico kulkarni MD Work Phone: Plastic Surgery Comment on above: Appointment Start: 01-25-2024 End: 01-26-2024 [facility] Start: 01-23-2024 ambulatory Usman bianchi MD Work Phone: Hematology/Oncology Start: 01-23-2024 Patient encounter procedure Usman Goldberg MD Work Phone: Hematology/Oncology Comment on above: Lab Appointment Start: 01-22-2024 Telephone encounter Ana Peoples MD Work Phone: Maternal Medicine Comment on above: Scans Start: 01-21-2024 End: 01-21-2024 Orders Only Ana Peoples MD Work Phone: Maternal Medicine Comment on above: Encounter for anatomic survey (Primary Dx) Encounter for anatomic survey Start: 01-21-2024 End: 01-21-2024 Office consultation new/estab patient 80 min Ana Peoples MD Work Phone: Maternal Medicine Comment on above: Malignant melanoma o f skin (HCC); Skin cancer; Placenta previa antepartum in second trimester Start: 01-18-2024 Telephone encounter [facility] Work Phone: Maternal Medicine Comment on above: Appointment Start: 01-14-2024 End: 01-14-2024 ambulatory LUJAN LOBITO [facility] pital Start: 01-10-2024 Telephone encounter Historical Mat ernal Medicine Start: 01-09-2024 Telephone encounter Fransico kulkarni MD Work Phone: Plastic Surgery Start: 01-08-2024 End: 01-08-2024 ambulatory ELIAZAR CASTANEDA Not Available Start: 01-04-2024 End: 01-05-2024 ambulatory FRANSICO SHARP Facility:[facility] Start: 01-04-2024 End: 01-05-2024 ambulatory Fransico Sharp MD Work Phone: Plastic Surgery Comment on above: Malignant melanoma o f skin (HCC) (Primary Dx) Start: 01-04-2024 End: 01-05-2024 Patient encounter procedure Fransico Sharp MD Work Phone: [facility] Start: 12-26-2023 End: 12-27-2023 ambulatory USMAN GOLDBERG Facility:[facility] Start: 12-21-2023 Chart abstracting Usman rincon MD Work Phone: Hematology/Oncology Start: 12-17-2023 End: 12-17-2023 ambulatory [facility] Start: 12-17-2023 End: 12-17-2023 Office outpatient visit 10 minutes Freddie Ordoñezte RAMIREZN-CHIEF COMPRESSOR STATION ENGINEER Work Phone: [facility] Comment on above: Nausea and vomiting, unspecified vomiting type (Primary Dx); Psychophysiological insomnia Start: 12-10-2023 End: 12-10-2023 ambulatory ELIAZAR CASTANEDA Not Available Start: 12-07-2023 Documentation procedure Chris Antonio [facility] Work Phone: M[facility]- Medicine [facility] Comment on above: Outgoing Ca ll Start: 11-20-2023 End: 11-21-2023 Orders Only Roshni Rodriguez RN Maternal [facility] Comment on above: Placenta previa ante in second trimester (Primary Dx); Multigravida of advanced maternal age in second trimester Start: 11-20-2023 End: 11-20-2023 Office outpatient visit 15 minutes Fidencio Rojas MD Work Phone: Maternal Medicine [place] Comment on above: 20 weeks gestation o f (Primary Dx); Placenta previa antepartum in second trimester; Advanced maternal age in multigravida, second trimester Start: 11-13-2023 Orders Only Juan Ramon [facility] at [facility] Comment on above: Multigravida of adva nced maternal age in second trimester; Family history of autism; Family history of mental disorder Start: 11-12-2023 End: 11-12-2023 ambulatory DIONNE XIAO Not Available Start: 11-12-2023 Documentation procedure Chris Antonio LC Work Phone: Maternal- Medicine at [facility] Comment on above: Outgoing Ca ll Start: 11-12-2023 External Result Encounter Dionne BRAN Work Phone: [facility] External Department Unsolicited Start: 11-12-2023 External Result Encounter Dionne BRAN Work Phone: [facility] External Department Unsolicited Start: 11-12-2023 End: 11-12-2023 Office outpatient visit 15 minutes Dionne BRAN Work Phone: [facility] Comment on above: Second trimester pre gnancy; Vaginal discharge; STD exposure; Screening, , for anatomic survey; Chronic cluster headache, not intractable Start: 10-29-2023 Documentation procedure Chris Antonio LC Work Phone: Maternal- Medicine at [facility] Comment on above: Incoming Ca ll Start: 10-23-2023 Orders Only Angela Guzman ROUTE DELIVERER Mat ernal- Medicine at [facility] Comment on above: Multigravida of adva nced maternal age in second trimester (Primary Dx); Family history of autism; Family history of mental disorder Start: 10-22-2023 End: 10-22-2023 ambulatory ELIAZAR R NORMA [facility] Start: 10-22-2023 End: 10-22-2023 Telemedicine consultation with patient Katarina Antonio [facility] Work Phone: Maternal- Medicine at [facility] Comment on above: Multigravida of adva nced maternal age in second trimester (Primary Dx); Family history of autism; Family history of mental disorder Start: 10-08-2023 End: 10-08-2023 ambulatory ELIAZAR NORMA Not Available Start: 08-30-2023 End: 08-30-2023 ambulatory ELIAZAR NORMA Not Available Start: 05-29-2023 End: 05-29-2023 ambulatory Shayla Valle Other [employer] Other Start: 05-29-2023 Office outpatient vi sit 15 minutes Shayla Valle [facility] Start: 03-19-2023 End: 03-19-2023 ambulatory NON STAFF Facility:[facility] Start: 03-19-2023 End: 03-19-2023 Admission to same day surgery center PRODUCE SPECIALIST-C Shayla Valle Work Phone: [facility] Work Phone: Start: 03-19-2023 End: 03-19-2023 ambulatory NON STAFF [facility] Work Phone: Start: 02-12-2023 End: 02-12-2023 ambulatory Yoel Jarrett Other [facility] Other Start: 02-12-2023 Office outpatient ne w 30 minutes Yoel Jarrett [facility] Start: 02-09-2023 End: 02-10-2023 ambulatory PRADEEP COULTER Facility:[facility] Start: 02-07-2023 Office outpatient ne w 20 minutes Shayla Valle [facility] Start: 02-07-2023 End: 02-07-2023 ambulatory Shayla Tori [facility] Other Start: 02-07-2023 End: 02-07-2023 Patient encounter procedure PRODUCE SPECIALIST-C Shayla Tori Work Phone: [facility] Work Phone: Start: 12-27-2022 ambulatory PRADEEP REYNAGAA JARREDAntonJUVENAL Facil ity:[facility] Start: 12-16-2022 End: 12-17-2022 ambulatory PRADEEP REYNAGAA JARREDAntonJUVENAL Facility:[facility] Start: 07-04-2022 End: 07-05-[address] ELIAZAR CASTANEDA . Facility:[facility] Start: 06-08-2022 End: 07-01-[address] ELIAZAR CASTANEDA . Facility:[facility] Start: 05-23-2022 End: 05-23-[address] ELIAZAR CASTANEDA . Facility:[facility] Start: 05-22-2022 Encounter for preprocedural laboratory examination DR ELIAZAR CASTANEDA . [facility] Start: 05-19-2022 End: 05-20-[address] ELIAZAR CASTANEDA . Facility:[facility] Start: 05-19-2022 End: 05-20-2022 Encounter for preprocedural laboratory examination DR ELIAZAR CASTANEDA . Facility:[facility] Start: 05-18-2022 End: 05-19-[address] ELIAZAR CASTANEDA . Facility:[facility] Start: 05-03-2022 End: 08-04-[address] ELIAZAR CASTANEDA . Facility: Start: 05-03-2020 End: 05-03-2020 ambulatory Candace Grossman Work Phone: [facility] Work Phone: Start: 05-03-2020 End: 05-04-2020 Patient encounter procedure CANDACE GROSSMAN [facility] Start: 05-03-2020 End: 05-03-2020 Subsequent hospital visit by physician ARMANI ANNA [facility] Start: 04-08-2020 End: 04-08-2020 ambulatory Linnea Escobar Work Phone: [facility] Work Phone: Start: 03-29-2020 End: 03-29-2020 General Emilee Sanford Work Phone: [facility] Work Phone: Start: 03-29-2020 End: 03-29-2020 Telemedicine consultation with patient Candace Grossman Work Phone: [facility] Work Phone: Start: 01-08-2020 End: 01-08-2020 Telemedicine consultation with patient Candace Grossman Work Phone: [facility] Work Phone: Start: 12-30-2019 End: 12-30-2019 Patient encounter procedure Emilee Sanford Work Phone: [facility] Work Phone: Start: 12-30-2019 End: 12-30-2019 Telemedicine consultation with patient Candace Grossman Work Phone: [facility] Work Phone: Start: 10-14-2019 End: 10-14-2019 Established patient Bobbi Isaiah Work Phone: [facility] Work Phone: Start: 09-04-2019 End: 09-04-2019 Established patient Bobbileif Colon Work Phone: [facility] Work Phone: Start: 08-19-2019 End: 08-19-2019 Nursing evaluation of patient and report Candace Grossman Work Phone: [facility] Work Phone: Start: 07-28-2019 End: 07-28-2019 Established patient Bobbi Colon Work Phone: [facility] Work Phone: Start: 07-28-2019 End: 07-28-2019 New patient Candace Grossman Work Phone: [facility] Work Phone: Start: 08-13-2017 End: 08-14-2017 Ambulatory Upender Gehlot [place] Date Procedure Procedure Detail Performing Clinician Start: 01-21-2024 Us preg uterus after 1st trimest 10/01 gestation Ana Peoples MD Work Phone: Start: 11-12-2023 Urnls dip stick/tabl et rgnt non-auto w/o micrscp Dionne BRAN Work Phone: Start: 11-12-2023 URETHRITIS/DISCHARGE PLUS VAGINITIS (HTRX) Dionne BRAN Work Phone: Start: 10-25-2023 UNLISTED LAB TEST Miriam Antonio [facility] Work Phone: Start: 09-10-2023 Adult depression scr eening assessment Katarina Antonio [facility] Work Phone: Start: 03-19-2023 Esophagogastroduodenoscopy PRODUCE SPECIALIST-C Shayla Valle Work Phone: Start: 03-01-2023 Microscopic observat ion [Identifier] in Cervix by Cyto stain Dionne BRAN Work Phone: Start: 02-07-2023 X-ray of right knee PRODUCE SPECIALIST- C Shayla Valle Work Phone: Start: 05-03-2020 Obtaining screen pap smear Candace Grossman Work Phone: Start: 05-03-2020 Iaad ia chlamydia trachomatis CANDACE GROSSMAN Start: 05-03-2020 Iadna diane specie s direct probe tq CANDACE GROSSMAN Start: 05-03-2020 Iadna diane specie s direct probe tq Candace M Dianelys Work Phone: Start: 05-03-2020 Microscopic observat ion [Identifier] in Cervix by Cyto stain Katarina Antonio [facility] Work Phone: Start: 04-08-2020 Diast bp 80-89 [...] recent change in medical history Sally Morejon CNP Work Phone: Start: 03-29-2020 Psychotherapy w/howie ent [...] Diast bp >/= 90 mm hg A imhalley Grossman Work Phone: Start: 09-04-2019 Psychotherapy w/howie [...] Use Disorders Identification Test ___(0-40) Candace Grossman CHIEF COMPRESSOR STATION ENGINEER Work Phone: Start: 07-28-2019 ANXIETY DISORDER NOS Ca ssie Jean-Pierre Start: 07-28-2019 ASTHMA Sally Tab er Start: 07-28-2019 DEPRESSION Sally Tab er Start: 07-28-2019 Diast bp 80-89 mm hg monico Grossman Work Phone: Start: 07-28-2019 History of influenza vaccination Sally Jean-Pierre Start: 07-28-2019 PSYCHIATRIC DISORDERS C gaviota Jean-Pierre Start: 07-28-2019 Psychotherapy w/howie ent 30 minutes Bobbi Isaiah Work Phone: Start: 07-28-2019 Pt-focused hlth risk assmt score doc stnd instrm Candace Grossman Work Phone: Start: 07-28-2019 Removal non-biodegra dable drug delivery implant Candace Grossman Work Phone: Start: 07-28-2019 RESPIRATORY DISORDERS C gaviota Jean-Pierre Start: 07-28-2019 Surgical procedure Chela john Jean-Pierre Start: 07-28-2019 Syst bp ge 130 - 139mm hg Candace Grossman Work Phone: NEGATED: Highlighted row has not occurred!Start: 04-08-2020 currently nursing Sally Morejon NEGATED: Highlighted row has not occurred!Start: 07-28-2019 currently Sally Morejon Plan of Treatment Date Care Activity Detail Author Start: 2048 RSV Vaccine (1 - 1-d ose 60+ series) RSV Vaccine (1 - 1-dose 60+ series) [facility] Start: 01-02-2034 Urine microalbumin profile DTaP,Tdap,Td Vaccine (7 - Td or Tdap) [facility] Start: 03-12-2028 Screening for malign ant neoplasm of cervix HPV/Cotest [facility] Start: 03-01-2028 Screening for malign ant neoplasm of cervix [facility] Start: 01-25-2028 DTaP,Tdap and Td Vaccines (6 - Td or Tdap) DTaP,Tdap and Td Vaccines (6 - Td or Tdap) [facility] Start: 01-25-2028 Urine microalbumin profile DTaP,Tdap,Td Vaccine (2 - Td or Tdap) [facility] Start: 12-16-2024 Adult BMI Screening Adult BMI Screen ing [facility] Start: 12-16-2024 Tobacco Screening Tobacco Screening [facility] Start: 10-23-2024 End: 10-23-2024 Unlisted Lab Test Unlisted Lab Test Lab Routine Multigravida of advanced maternal age in second trimester Family history of autism Family history of mental disorder Expected: 10/23/2024 (Approximate), Expires: 10/23/2024 [facility] Work Phone: Comment on above: Expected: 10/23/2024 (Approximate), Expires: 10/23/2024 Start: 09-10-2024 Adult BMI Screening Adult BMI Screen ing [facility] Start: 09-10-2024 Depression Screening Depression Scre ening [facility] Start: 09-10-2024 Tobacco Screening Tobacco Screening [facility] Start: 03-17-2024 End: 03-17-2024 Admission to same day surgery center 03/17/2024 11:30 AM EDT Visit (SP) Office Plastic Surgery [address] [place] [address] Tana Cervantes, CIGAR HEAD HOLER.CHIEF COMPRESSOR STATION ENGINEER [address] [place], [place] [id number] post op Plastic Surgery Comment on above: post op Start: 03-14-2024 End: 03-14-2024 Adjt tis trns/reargmt f/c/c/m/n/a/g/h/f 10sqcm/< TRANSFER / REARRANGEMENT ADJACENT TISSUE FACE/NECK DEFECT 10 SQ CM OR LESS Malignant melanoma of skin (HCC) 03/14/2024 10:45 AM EDT [facility] Start: 03-14-2024 End: 03-14-2024 Admission to same day surgery center Admitting Comment on above: EXCISION MALIGNANT L ESION FACE OVER 4.0 CM Start: 03-14-2024 End: 03-14-2024 Bx/exc lymph node open deep cervical node BIOPSY NODE CERVICAL NECK Malignant melanoma of skin (HCC) 03/14/2024 10:45 AM EDT [facility] Start: 03-14-2024 End: 03-14-2024 Excision malignant lesion f/e/e/n/l >4.0 cm EXCISION MALIGNANT LESION FACE OVER 4.0 CM Malignant melanoma of skin (HCC) 03/14/2024 10:45 AM EDT [facility] Start: 03-14-2024 End: 03-14-2024 Inj radioactive tracer for id of sentinel node INJECTION PROCEDURE RADIOACTIVE TRACER FOR IDENTIFICATION OF SENTINEL NODE Malignant melanoma of skin (HCC) 03/14/2024 10:45 AM EDT [facility] Start: 03-14-2024 End: 03-14-2024 Intraop sentinel lymph node id w/dye injection INTRAOPERATIVE ID OF SENTINEL LYMPH NODE(S) INCL'D INJECTION OF NON-RAD DYE WHEN PERFORMED Malignant melanoma of skin (HCC) 03/14/2024 10:45 AM EDT [facility] Start: 03-14-2024 Subsequent hospital visit by physician 03/14/2024 10:45 AM EDT Hospital Encounter Admitting [address] [place] [address] Fransico Sharp MD [address] [place] [address] Malignant melanoma of skin (HCC) [C43.9] Admitting Comment on above: Malignant melanoma o f skin (HCC) [C43.9] Start: 03-14-2024 End: 03-14-2024 Patient encounter procedure 03/14/2024 8:30 AM EDT Appointment Molecular Imaging [address] [place], [place] [id number] MELANOMA-NM LYMPH NODE IMAGING [facility] Comment on above: MELANOMA-NM LYMPH NO DE IMAGING Start: 03-07-2024 End: 03-07-2024 Anesthesia consultation 03/07/2024 1:20 PM EDT PAT Pre Anesthesia [address] [place] [address] 9, Pacc Main [address] [place] [id number] pacc Pre Anesthesia Comment on above: pacc Start: 02-22-2024 End: 02-22-2024 Patient encounter procedure 02/22/2024 10:45 AM EDT Appointment Radiology Pet [facility] [address] [address] ct chest and stn w Radiology Pet CT Comment on above: ct chest and stn w Start: 02-20-2024 End: 02-20-2024 ambulatory 02/20/2024 3:00 PM EDT Results Only [facility] [address] [place] [address] [facility] Start: 02-20-2024 End: 01-22-2025 CBC W Auto Differential panel - Blood COMPLETE BLOOD COUNT AND DIFFERENTIAL Lab Routine Malignant melanoma of skin (HCC) Expected: 02/20/2024 (Approximate), Expires: 01/22/2025 [facility] Comment on above: Expected: 02/20/2024 (Approximate), Expires: 01/22/2025 Start: 02-20-2024 End: 01-22-2025 Comprehensive metabolic 2000 panel - Serum or Plasma COMPREHENSIVE METABOLIC PANEL Lab Routine Malignant melanoma of skin (HCC) Expected: 02/20/2024 (Approximate), Expires: 01/22/2025 [facility] Comment on above: Expected: 02/20/2024 (Approximate), Expires: 01/22/2025 Start: 02-20-2024 End: 02-21-2025 CT Chest W contrast IV CT CHEST W IVCON Radiology Routine Malignant melanoma of skin (HCC) Expected: 02/20/2024 (Approximate), Expires: 02/21/2025 [facility] Comment on above: Expected: 02/20/2024 (Approximate), Expires: 02/21/2025 Start: 02-20-2024 End: 02-21-2025 CT Neck W contrast IV CT NECK SOFT TISSUE W IVCON Radiology Routine Malignant melanoma of skin (HCC) Expected: 02/20/2024 (Approximate), Expires: 02/21/2025 [facility] Work Phone: Comment on above: Expected: 02/20/2024 (Approximate), Expires: 02/21/2025 Start: 02-20-2024 End: 01-22-2025 Lactate dehydrogenase [Enzymatic activity/volume] in Serum or Plasma LACTATE DEHYDROGENASE Lab Routine Malignant melanoma of skin (HCC) Expected: 02/20/2024 (Approximate), Expires: 01/22/2025 [facility] Comment on above: Expected: 02/20/2024 (Approximate), Expires: 01/22/2025 Start: 02-19-2024 Subsequent hospital visit by physician 02/19/2024 Hospital Encounter [facility] [address] [id number] Fransico Sharp MD [address] [place], [place] [id number] Malignant melanoma of skin (HCC) [C43.9] Surgery Center Comment on above: Malignant melanoma o f skin (HCC) [C43.9] Start: 02-18-2024 End: 11-20-2024 US MFM with or without consult US MFM with or without consult Imaging Routine Placenta previa antepartum in second trimester Multigravida of advanced maternal age in second trimester Expected: 02/18/2024 (Approximate), Expires: 11/20/2024 [facility] Work Phone: Comment on above: Expected: 02/18/2024 (Approximate), Expires: 11/20/2024 Start: 02-12-2024 End: 02-12-2024 Patient encounter procedure [facility] Comment on above: MELANOMA-NM LYMPH NO DE IMAGING Start: 01-14-2024 End: 01-14-2024 Telemedicine consultation with patient 01/14/2024 10:15 AM EDT [facility] [address] [facility] [address] [place] [address] Gurjit Robin MD [address] [facility] [place] [address] [facility] Start: 12-17-2023 End: 12-17-2023 Patient encounter procedure 12/17/2023 1:45 PM EDT Office Visit [facility] [address] [place] [address] Freddie Delgado, CIGAR HEAD HOLER-CHIEF COMPRESSOR STATION ENGINEER [address], [place] [address] [facility] Start: 12-10-2023 End: 12-10-2023 Patient encounter procedure 12/10/2023 2:20 PM EDT Routine [facility] [address] [place] [id number] Eliazar Castaneda, DO [address] [place] [address] [facility] Start: 11-20-2023 End: 11-20-2023 Patient encounter procedure 11/20/2023 8:00 AM EST Appointment [facility] [address] [place] [address] [facility] Start: 11-12-2023 End: 11-12-2024 US for US OB ANATOMY SINGLE W US OB CERVICAL LENGTH Imaging Routine Screening, , for anatomic survey Expected: 11/12/2023 (Approximate), Expires: 11/12/2024 [facility] Comment on above: Expected: 11/12/2023 (Approximate), Expires: 11/12/2024 Start: 10-01-2023 Behavioral Health Screening Behavioral Health Screening [facility] Start: 10-01-2023 Depression Assessment Depression Ass essment [facility] Start: 06-01-2023 Covid-19 Vaccine ( season) Covid-19 Vaccine ( season) [facility] Start: 06-01-2023 Influenza vaccination P [employer] [facility] Start: 05-03-2023 Screening for malign ant neoplasm of cervix Pap Smear [facility] Start: 03-19-2023 [facility] Start: 06-02-2020 [facility] Work Phone: Start: 06-01-2020 Influenza vaccination Flu vaccine (# 1) [place], [place] Start: 12-02-2019 Dental Comp Exam [facility] Work Phone: Start: 11-17-2019 [facility] Work Phone: Start: 10-21-2019 Lipid 1996 [facility] Work Phone: Start: 10-14-2019 [facility] Work Phone: Comment on above: Note: Please make a referral to: Start: 09-16-2019 Dental Comp Exam [facility] Work Phone: Start: 08-25-2019 Medical Establ ished Patient [facility] Work Phone: Start: 08-20-2019 Urine Pregnanc y Test, In House [facility] Work Phone: Start: 2018 Screening for malign ant neoplasm of cervix HPV Testing [facility] Start: 2009 Screening for malign ant neoplasm of cervix [facility] Start: 2007 DTaP/Tdap/Td vaccine (1 - Tdap) DTaP/Tdap/Td vaccine (1 - Tdap) [place], [place] Start: 2007 Hepatitis B Vaccine (1 of 3 - 19+ 3-dose series) Hepatitis B Vaccine (1 of 3 - 19+ 3-dose series) [facility] Start: 2006 Adult BMI Follow Up Plan Adult BMI Follow Up Plan [facility] Start: 2006 Annual PCP Team Hearing Officer lorne Disease Visit Annual PCP Team Chronic Disease Visit [facility] Start: 2006 Hepatitis C screening Hepatitis C Sc zoë [facility] Start: 2006 HIV screening HIV Screening [facility] Start: 2006 Spirometry Spirometry [facility] Start: 2003 HIV screening HIV screen Sil Hartley [place], [place] Start: 1989 Varicella vaccine (1 of 2 - 2-dose childhood series) Varicella vaccine (1 of 2 - 2-dose childhood series) [place] Adjt tis trns/reargm t f/c/c/m/n/a/g/h/f 10sqcm/< TRANSFER / REARRANGEMENT ADJACENT TISSUE FACE/NECK DEFECT 10 SQ CM OR LESS Malignant melanoma of skin (HCC) [facility]LAST[facility] A60 Alpha fetoprotein, maternal Alpha fetoprotein, maternal Lab Routine Second trimester Ordered: 11/12/2023 [facility] Work Phone: Comment on above: Ordered: 11/12/2023 Bx/exc lymph node op en deep cervical node BIOPSY NODE CERVICAL NECK Malignant melanoma of skin (HCC) [facility] End: 05-03-2020 C.trachomatis N.gonorrhoeae DNA, Thin Prep C.trachomatis N.gonorrhoeae DNA, Thin Prep Microbiology Routine Once for 1 Occurrences starting 05/03/2020 until 05/03/2020 [place], [place] Comment on above: Once for 1 Occurrenc es starting 05/03/2020 until 05/03/2020 C.trachomatis N.gonorrhoeae DNA, Thin Prep C.trachomatis N.gonorrhoeae DNA, Thin Prep Microbiology Routine 05/03/2020 7:32 AM EDT [place] Excision malignant lesion f/e/e/n/l >4.0 cm EXCISION MALIGNANT LESION FACE OVER 4.0 CM Malignant melanoma of skin (HCC) [email or web address] [facility] A60 Inj radioactive trac er for id of sentinel node INJECTION PROCEDURE RADIOACTIVE TRACER FOR IDENTIFICATION OF SENTINEL NODE Malignant melanoma of skin (HCC) [facility] A60 Intraop sentinel lym ph node id w/dye injection INTRAOPERATIVE ID OF SENTINEL LYMPH NODE(S) INCL'D INJECTION OF NON-RAD DYE WHEN PERFORMED Malignant melanoma of skin (HCC) [email or web address] [facility] A60 End: 02-02-2025 NM Lymph node Views NM LN IMAGING MELANOMA Radiology Routine Malignant melanoma of skin (HCC) 1 Occurrences starting 01/06/2024 until 02/02/2025 [facility] Work Phone: Comment on above: 1 Occurrences starti ng 01/06/2024 until 02/02/2025 Patient Education Hiatal Hernia (DC) [facility] Work Phone: [facility] PLASTICS A60 Immunizations Immunization Date Immunization Notes Care Provider Maryuri gómez 05-11-2023 influenza virus vaccine, unspecified formulation Katarina Antonio [facility] Work Phone: [employer] 07-16-2022 SARS-COV-2 (COVID-19 ) vaccine, mRNA, spike protein, LNP, bivalent, PF Dionne BRAN Work Phone: [facility] 01-24-2018 tetanus toxoid, redu [place] diphtheria toxoid, and acellular pertussis vaccine, adsorbed Dionne BRAN Work Phone: [facility] Payers Date Payer Category Payer Self-pay 2022 Medicaid [id number] 2019 Unknown Ronald - Temi [facility] [id number] [id number] 2017 Unknown [id number] 1988 Unknown [id number] 2.16.84 0.1.239446.3.579.2.593 1988 Unknown [id number] 2.16.84 0.1.661798.3.579.2.593 1988 Unknown [id number] 2.16.84 0.1.405615.3.579.2.593 1988 Unknown [id number] 2.16.84 0.1.322521.3.579.2.593 1988 Unknown [id number] 2.16.84 0.1.344116.3.579.2.593 1988 Unknown [id number] 2.16.84 0.1.596373.3.579.2.593 1988 Unknown [id number] 2.16.84 0.1.686665.3.579.2.593 1988 Unknown [id number] 2.16.84 0.1.816555.3.579.2.593 1988 Unknown [id number] 2.16.84 0.1.492372.3.579.2.593 1988 Unknown [id number] 2.16.8 40.1.164229.3.579.2.1285 1988 Unknown [id number] 2.16.8 40.1.148675.3.579.2.1285 1988 Unknown [id number] 2.16.8 40.1.504941.3.579.2.1285 1988 Unknown [id number] 2.16.8 40.1.241601.3.579.2.1285 1988 Unknown [id number] 2.16.8 40.1.500582.3.579.2.1285 1988 Unknown [id number] 2.16.84 0.1.735085.3.579.2.1285 1988 Unknown [id number] 2.16.84 0.1.512108.3.579.2.1258 1988 Unknown [id number] 2.16.84 0.1.293407.3.579.2.1258 1988 Unknown [id number] 2.16.84 0.1.196569.3.579.2.1258 1988 Unknown [id number] 2.16.84 0.1.421886.3.579.2.1258 1988 Unknown [id number] 2.16.84 0.1.760172.3.579.2.1258 1988 Unknown [id number] 2.16.840 .1.689704.3.579.2.1258 1988 Unknown [id number] 2.16.8 40.1.978527.3.579.2.1286 1988 Unknown [id number] 2.16.8 40.1.973555.3.579.2.1286 1959 Medicaid [id number] 2. 16.840.1.987240.19 Self-pay [id number] 2.16.840 .1.571110.3.140.1.66693.5.4 Unknown [employer] [id number] Unknown [id number] 2.16.8 40.1.310717.3.579.2.531 Unknown [id number] 2.16.8 40.1.734416.3.579.2.531 Social History Date Type Detail Facility Assertion Alcohol consumpt ion screening (procedure) [facility] Work Phone: Assertion [email or web address] Assertion Finding of alcoh ol intake (finding) [facility] Work Phone: Assertion Sexually active (finding) [facility] Work Phone: Assertion Gender identity finding (finding) [facility] Work Phone: Assertion Finding of sexua l orientation (finding) [facility] Work Phone: Tobacco smoking status Unknown if ever smoked [facility] Assertion Emotional stress (finding) [facility] Work Phone: Start: 1988 Sex Assigned At Not on file [facility], [place] Assertion Contraception (finding) [facility] Work Phone: Start: 09-10-2023 End: 01-21-2024 [facility] 1990 Sex Assigned At Female [facility] Start: 04-05-2022 End: 12-26-2023 Tobacco smoking status NHIS Never smoked tobacco [facility] Start: 04-05-2022 End: 12-26-2023 Tobacco use and exposure Smokeless tobacco non-user [facility] Start: 10-10-2023 End: 12-17-2023 Alcohol intake Ex-drinker (finding) [facility] Start: 09-10-2023 End: 01-21-2024 History of Social function [facility] How hard is it for you to pay for the very basics like food, housing, medical care, and heating Very hard [facility] Start: 07-12-2023 [facility] Start: 11-12-2023 Alcohol intake Lifetime non-d rhys (finding) [facility] Start: 03-09-2023 Education [facility] Start: 03-09-2023 Alcohol Comment Caffeine intak e: 1-2 cups per day coffee, pop [facility] Start: 12-26-2023 End: 01-21-2024 Alcohol intake Current drinker of alcohol (finding) [facility] NEGATED: Highlighted row Assertion He has not had 5 or more drinks in a day within the past year. [facility] Work Phone: NEGATED: Highlighted row Assertion Exposure to pollution (event) [facility] Work Phone: NEGATED: Highlighted row Assertion Tobacco user (finding) [facility] Work Phone: NEGATED: Highlighted row Assertion Current drinker of alcohol (finding) [facility] Work Phone: NEGATED: Highlighted row Assertion Finding relating to drug misuse behavior (finding) [facility] Work Phone: Goals Date Patient Goal Desired Activity /State Personal health goal Mental Status Date Assessment Result Facility Cognitive function 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 Thanks [facility] 01-25-2024 Miscellaneous Notes Pt is not able to make the appt on 02/11; carlo wondering if this should be on March 14 instead? Thanks documented in this encounter [facility] 01-24-2024 Telephone encounter Note Vy is scheduled for her CT scan on 02/21 at 11am. She is scheduled for her labwork still, on 02/19. I spoke with Vy and she is in agreement. ThanksAngela [facility] 01-24-2024 Miscellaneous Notes Vy is scheduled for her CT scan on 02/21 at 11am. She is scheduled for her labwork still, on Sunday, 02/19. I spoke with Vy and she is in agreement. ThanksAngela Clerical: Please call pt to schedule CT scans. Brandon Churchill RN It's ok to move up - but I'd want to know closer to delivery (33 weeks - 34 weeks) because then there won't be a need for additional scans later. Labs are to be done prior to CT. Images from the original note were not included. Ana Peoples MD Abhyankar, Vivek, MD 1 hour ago (8:13 AM) MACK Hi, That is fine obstetrically if you are comfortable waiting that long from an Onc point of view. She can have the CT scan anytime as far as I am concerned. Ana Peoples MD Louisa: Can we go ahead and schedule the CT ahead of 02/19? Brandon Churchill RN Is the lab appointment I ve been scheduled part of the CT I need done? I ll be 34 weeks by the time I get the blood work on February 19. But it doesn t say CT in there at all. Just curious because if it has spread then they wanna deliver at 36 weeks and that doesn t seem like enough time. Vy Deshpande: Please advise Lindsay Murray RN We won's be doing scans for 4 weeks.... that works out to be around 33 weeks gestation Does that sound right? (February 19) Thanks, louisa. Pt calls regarding CT scans. Please place orders. Thanks! Brandon Churchill RN Images from the original note were not included. documented in this encounter [facility] 01-24-2024 Telephone encounter Note Clerical: Please call pt to schedule CT scans. Brandon Churchill RN [facility] Work Phone: 01-24-2024 Telephone encounter Note It's ok to move up - but I'd want to know closer to delivery (33 weeks - 34 weeks) because then there won't be a need for additional scans later. Labs are to be done prior to CT. T [facility] 01-24-2024 Telephone encounter Note Images from the original note were not included. Ana Peoples MD Abhyankar, Vivek, MD 1 hour ago (8:13 AM) MACK Senthil, That is fine obstetrically if you are comfortable waiting that long from an Onc point of view. She can have the CT scan anytime as far as I am concerned. Ana Peoples MD Louisa: Can we go ahead and schedule the CT ahead of 02/19? Brandon Churchill RN [facility] 01-24-2024 Telephone encounter Note Is the lab appointment I ve been scheduled part of the CT I need done? I ll be 34 weeks by the time I get the blood work on February 19. But it doesn t say CT in there at all. Just curious because if it has spread then they wanna deliver at 36 weeks and that doesn t seem like enough time. Vy Deshpande: Please advise Lindsay Murray RN [facility] 01-23-2024 Telephone encounter Note We won's be doing scans for 4 weeks.... that works out to be around 33 weeks gestation Does that sound right? (February 19) Thanks, louisa. [facility] 01-23-2024 Telephone encounter Note Pt calls regarding CT scans. Please place orders. Thanks! Brandon Churchill, RN [facility] 01-22-2024 Telephone encounter Note 01/22/2024 [facility] Pt called and identified ~ 12:30 pm. WE discussed that I have spoken with her oncologist and that we think imaging her head, neck , and chest as part staging will help us determine delivery timing. We discussed radiation risk in including potential increased risk of leukemia in the fetus. We discussed that the proposed imaging should be less than the amount of radiation thought to increase the risk but an increase in risk from the baseline risk of 10/2999 to 11/2999 is the magnitude we would be talking about. All questions answered. Pt to arrange thr imaging through oncology and we will readdress delivery timing when more information on spread is known. All questions answered. Ana Peoples MD [facility] 01-22-2024 Miscellaneous Notes 01/22/2024 [facility] Pt called and identified ~ 12:30 pm. WE discussed that I have spoken with her oncologist and that we think imaging her head, neck , and chest as part staging will help us determine delivery timing. We discussed radiation risk in including potential increased risk of leukemia in the fetus. We discussed that the proposed imaging should be less than the amount of radiation thought to increase the risk but an increase in risk from the baseline risk of 10/2999 to 11/2999 is the magnitude we would be talking about. All questions answered. Pt to arrange thr imaging through oncology and we will readdress delivery timing when more information on spread is known. All questions answered. Ana Peoples MD documented in this encounter [facility] 01-22-2024 Note HNO ID: [id number] Author: ANA PEOPLES MD Service: ? Author Type: Physician Type: Progress Notes Filed: 01/22/2024 11:18 Note Text: MATERNAL MEDICINE CONSULT SERVICE DATE: January 22, 2024 SERVICE TIME: 11:12 AM REQUESTING PROVIDER: Sarah Wiseman HISTORY OF THE PRESENT ILLNESS: Vy Mckeon is a 33 year old at 29w5d for a Maternal- Medicine consultation regarding her history of malignant melanoma. HISTORY REVIEW PAST MEDICAL HISTORY Diagnosis Date Anxiety Asthma Depression Melanoma (HCC) PAST SURGICAL HISTORY Procedure Laterality Date DANDC, DIAG AND/OR THERAPEUTIC PAST SURGICAL HISTORY OF Shaved Biopsy above lip FAMILY HISTORY Problem Relation Age of Onset Melanoma Maternal Grandmother Social History Tobacco Use Smoking status: Never Smokeless tobacco: Never Substance Use Topics Alcohol use: Yes Obstetric History T0 L0 SAB0 IAB0 Ectopic0 Multiple0 Live Births0 Name of Baby 1: Not recorded Date: Not recorded GA: Not recorded Delivery: Not recorded Apgar1: Not recorded Apgar5: Not recorded Living: Not recorded ALLERGIES Allergen Reactions Penicillins Unknown unknown Other Reaction(s): Unknown Reaction REVIEW OF SYSTEMS: The pt denies [x] Bleeding [x] Leaking [x] Contractions [] Back pain [] Nausea [] Heartburn BP 125/75 Pulse 108 Ht 5' 7 (1.70m) Wt 192 lb 0.3 oz (87.1kg) LMP 06/28/2023 BMI 30.07 kg/(m2). PHYSICAL EXAM: Well appearing woman in NAD. Appropriate affect. Healing lesion noted on left upper lip LABS Diagnostic tests reviewed for today's visit: Most recent labs and imaging results. Impression/Recommendations 33 year old at 29w5d with the following issues. Please see my counseling and recommendations documented in problem based charting below. Problem List Items Addressed This Visit Oncology Skin cancer Current Assessment AND Plan 01/22/2024 MFM Pt is a 33 year old 29w4d with a new diagnosis of malignant melanoma located above the left upper lip. Oncologist Usman Goldberg MD Surgeon Fransico Sharp MD Pts general OBGYN in [place], [place]: Eliazar Castaneda MD The plan is for wide local excision with reconstruction, which may take multiple trips to the OR. The OR plan involves radioactive tracer for sentinal node She has not been imaged for staging. She comes to [facility] today for discussion on when to deliver. Of note, pt had had a placenta previa which has resolved on imaging today. We discussed that imaging, surgery and some types of Chemo are possible during . Radioactive tracer materials are also sometimes used in depending on the risk/benefits in a particular patient. I spoke with radiology for general background information on the tracers used for sentinel node detection. The tracer they used on main campus is a possibility during should we decide to operate during . I spoke with her oncologist. After the discussion of CT scan vs PET scan in and the radiation risks, as well as the anticipated spread pattern of melanoma given its location on her face, we decided that head, neck and chest CT to help stage would assist with decisions on when to deliver. I have tried to call the patient today twice and I have left messages. Will continue to try to reach pt to discuss plan. Radiation dose for combined head/neck and chest should be below the level seen with increase in leukemias for the fetus per the ACOG guidance on imaging in . While plan will be confirmed after imaging, tentatively, if imaging shows no spread will wait til 39 weeks for delivery. (previa has resolved thus no obstetric reason for early delivery anymore) If there is spread and pt needs immunotherapy, will accelerate delivery depending on findings. Ana Peoples MD Other Placenta previa antepartum in second trimester Overview 01/21/2024 [facility] Previa resolved on US today. Placenta > 2cm away from the cervix. Ana Peoples MD Other Visit Diagnoses Malignant melanoma of skin (HCC) I spent 70 minutes in the visit, with more than 50% of the total yxyy-it-fcbs time of the visit in counseling / coordination of care. I shared my findings and recommendations via the shared medical record or via the mail to the referring provider. Ana Peoples MD [facility] 01-22-2024 Telephone encounter Note Images from the original note were not included. [facility] 01-22-2024 History of Present illness Narrative MATERNAL MEDICINE CONSULT SERVICE DATE: January 22, 2024 SERVICE TIME: 11:12 AM REQUESTING PROVIDER: Sarah Wiseman HISTORY OF THE PRESENT ILLNESS: Vy Mckeon is a 33 year old at 29w5d for a Maternal- Medicine consultation regarding her history of malignant melanoma. HISTORY REVIEW PAST MEDICAL HISTORY Diagnosis Date Anxiety Asthma Depression Melanoma (HCC) PAST SURGICAL HISTORY Procedure Laterality Date D&C, DIAG AND/OR THERAPEUTIC PAST SURGICAL HISTORY OF Shaved Biopsy above lip FAMILY HISTORY Problem Relation Age of Onset Melanoma Maternal Grandmother Social History Tobacco Use Smoking status: Never Smokeless tobacco: Never Substance Use Topics Alcohol use: Yes Obstetric History T0 L0 SAB0 IAB0 Ectopic0 Multiple0 Live Births0 Name of Baby 1: Not recorded Date: Not recorded GA: Not recorded Delivery: Not recorded Apgar1: Not recorded Apgar5: Not recorded Living: Not recorded ALLERGIES Allergen Reactions Penicillins Unknown unknown Other Reaction(s): Unknown Reaction REVIEW OF SYSTEMS: The pt denies [x] Bleeding [x] Leaking [x] Contractions [] Back pain [] Nausea [] Heartburn BP 125/75 Pulse 108 Ht 5' 7 (1.70m) Wt 192 lb 0.3 oz (87.1kg) LMP 06/28/2023 BMI 30.07 kg/(m^2). PHYSICAL EXAM: Well appearing woman in NAD. Appropriate affect. Healing lesion noted on left upper lip LABS Diagnostic tests reviewed for today's visit: Most recent labs and imaging results. Impression/Recommendations 33 year old at 29w5d with the following issues. Please see my counseling and recommendations documented in problem based charting below. Problem List Items Addressed This Visit Oncology Skin cancer Current Assessment & Plan 01/22/2024 MFM Pt is a 33 year old 29w4d with a new diagnosis of malignant melanoma located above the left upper lip. Oncologist Usman Goldberg MD Surgeon Fransico Sharp MD Pts general OBGYN in [place], [place]: Eliazar Castaneda MD The plan is for wide local excision with reconstruction, which may take multiple trips to the OR. The OR plan involves radioactive tracer for sentinal node She has not been imaged for staging. She comes to [facility] today for discussion on when to deliver. Of note, pt had had a placenta previa which has resolved on imaging today. We discussed that imaging, surgery and some types of Chemo are possible during . Radioactive tracer materials are also sometimes used in depending on the risk/benefits in a particular patient. I spoke with radiology for general background information on the tracers used for sentinel node detection. The tracer they used on main campus is a possibility during should we decide to operate during . I spoke with her oncologist. After the discussion of CT scan vs PET scan in and the radiation risks, as well as the anticipated spread pattern of melanoma given its location on her face, we decided that head, neck and chest CT to help stage would assist with decisions on when to deliver. I have tried to call the patient today twice and I have left messages. Will continue to try to reach pt to discuss plan. Radiation dose for combined head/neck and chest should be below the level seen with increase in leukemias for the fetus per the ACOG guidance on imaging in . While plan will be confirmed after imaging, tentatively, if imaging shows no spread will wait til 39 weeks for delivery. (previa has resolved thus no obstetric reason for early delivery anymore) If there is spread and pt needs immunotherapy, will accelerate delivery depending on findings. Ana Peoples MD Other Placenta previa antepartum in second trimester Overview 01/21/2024 MFM Previa resolved on US today. Placenta > 2cm away from the cervix. Ana Peoples MD Other Visit Diagnoses Malignant melanoma of skin (HCC) I spent 70 minutes in the visit, with more than 50% of the total yrad-fu-duww time of the visit in counseling / coordination of care. I shared my findings and recommendations via the shared medical record or via the mail to the referring provider. Ana Peoples MD documented in this encounter [facility] 01-18-2024 Miscellaneous Notes Called pt, verified name and . Informed pt that call was regarding her upcoming appt on 01/20. Pt was not scheduled for an anatomy at time of her consult. Added pt on for 11 am US, pt verbalized agreement. Let pt know our office will call her first thing on Sunday if anything changes. Jose L Crowley MA documented in this encounter [facility] 01-10-2024 Miscellaneous Notes Alexyst msg was sent to patient asking for call back to this coordinator to schedule MFM consultation. documented in this encounter [facility] 01-09-2024 Miscellaneous Notes Reached out to patient. Instructions provided to see a maternal medicine specialist within the [facility] per Dr. Sharp. This nurse explained that the multidisciplinary team will need frequent communications in arranging the plan of care, and staying in one healthcare system will help facilitate planning. Patient called that she is seeing Maternal Med, in her area and was questioning does she need to see one at the [facility]? She is asking for a call.. she is very nervous documented in this encounter [facility] 01-04-2024 Instructions Valerie Bedoya RN - 01/04/2024 3:21 PM EDT PLAN: - Photos taken and uploaded to chart today via [email or web address] - Pathology re-read to be obtained - Surgical plan is for resection of left upper lip melanoma, reconstruction with local tissue rearrangement, and a sentinel lymph node biopsy - Surgery at [facility] or [facility]. Likely plan is to wait for surgical intervention until after 36 weeks . - Pre op clearance (PACC) prior to surgery for clearance to receive general anesthesia; must be done at a [facility] location - Nuclear medicine appointment at [facility] the morning of surgery - Post op 7-10 days with Tana Cervantes APRN.CHIEF COMPRESSOR STATION ENGINEER - Consult placed to Maternal Medicine (MFM) for risk assessment and guidance: call [phone] to schedule. - Recommend regular dermatology follow-up for FBSE - Q3 months for 2 years, Q6 months for 5 years and Q1 year for the rest of his/her life Our surgical appliances salesperson will contact you to set up all surgical appointments: pre op (PACC) prior to surgery, nuclear medicine the morning of surgery, surgery itself, and a post op visit about 7-10 days after surgery with the team's nurse practitioner, Tana. Follow up prior to surgical date: around 36-37 weeks or after delivery. Please notify us of [facility]'s recommendations. Please [employer] message or call the office with questions/concerns. documented in this encounter [facility] 12-28-2023 Note HNO ID: [id number] Author: FRANSICO SHARP MD Service: ? Author Type: Physician Type: Progress Notes Filed: 01/06/2024 09:42 Note Text: DATE: January 03, 2024 CC: New Melanoma Patient Referring Physician: Margarita Kim MD at [facility] in [place] HPI: Vy Mckeon is a 33 year old female who presents for surgical evaluation of 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 She is currently 27 weeks ; her estimated delivery date is 04/03/2024. She reportedly has had a lesion on her left upper lip for most of her life, but within the last 3 years the lesion became more raised and irregular. Diagnosis has been established with shave biopsy performed on 12/10/2023 by Margarita Kim MD The patient has a tumor thickness of 0.7 MM without ulceration and positive involvement of the margins Seen by Dermatology Yes Past Medical History/Risk Factors: Hx of Melanoma: No Hx of NMSC: No Hx of Atypical Nevi: No Hx of previous malignacy: No Sun Exposure History: Hx of intense intermittent sun exposure/blistering sunburns: No Hx of chronic Sun Exposure: No Hx of Tanning bed use: Yes Immunosuppresion History: Hx of organ transplantation: No Hx of radiation:No Hx of immunosuppressive medication use: No Family h/o skin cancer: Present - maternal grandmother with melanoma on her nose PAST MEDICAL HISTORY Diagnosis Date Anxiety Asthma Depression Melanoma (HCC) PAST SURGICAL HISTORY Procedure Laterality Date DANDC, DIAG AND/OR THERAPEUTIC PAST SURGICAL HISTORY OF Shaved Biopsy above lip Medications and Allergies were reviewed and verified. Current Outpatient Medications Medication Sig Dispense Refill diphenhydramine HCl (UNISOM, DIPHENHYDRAMINE, ORAL) albuterol HFA (PROVENTIL HFA, VENTOLIN HFA) 90 mcg/actuation inhaler Inhale 2 Puffs as instructed every 6 hours as needed. ondansetron orally disintegrating (ZOFRAN ODT) 4 mg disintegrating tablet valACYclovir (VALTREX) 500 mg tablet aspirin 81 mg chewable tablet Take 81 mg by mouth. magnesium oxide (MAG-OX) 400 mg (241.3 mg magnesium) tablet Take 400 mg by mouth. omeprazole magnesium (ACID ROCK CRUSHER, OMEPRAZOLE, ORAL) Take by mouth as directed. PNV no.95/ferrous fum/folic ac ( ORAL) Take by mouth as directed. No current facility-administered medications for this visit. Social History Tobacco Use Smoking status: Never Smokeless tobacco: Never Substance Use Topics Alcohol use: Yes FAMILY HISTORY Problem Relation Age of Onset Melanoma Maternal Grandmother REVIEW OF SYSTEMS GENERAL:Negative for malaise, significant weight loss and fever. NECK: Negative for lumps, goiter, pain and significant neck swelling. SKIN: See HPI HEMATOLOGIC/LYMPHATIC/IMMUNOLOGI C:Negative for prolonged bleeding, bruising easily, and swollen nodes. PHYSICAL EXAM: BP 148/83 Pulse 94 Temp 36.2 ?C (97.1 ?F) (Temporal) Resp 20 LMP 06/24/2023 SpO2 99% GENERAL: Patient is a well-nourished , appearing stated age, resting comfortably, breathing regularly. No acute distress. Skin: Pigmented lesion on the left upper lip with a variegated pattern, real estate associate in the middle with a number of dark spots. The lesion measures 1 cm in diameter. Photos taken, see [facility] Get Images LABS: Pathology Report - EXTERNAL PATHOLOGY REPORT - 12/10/2023: ASSESSMENT/PLAN: (C43.9) Malignant melanoma of skin (HCC) (primary encounter diagnosis) ANTICOAGULATION HISTORY: Aspirin 81 (no need to hold) ANTICOAGULATION INDICATORS: pre-eclampsia Patient has a history of asthma, denies history of hospitalization. She denies gestational DM or HTN. Vy Mckeon is a 33 year old female who presents for surgical evaluation of melanoma of the left upper lip. At this time, after discussing the patient's symptoms and reviewing their pathology, I believe the patient is a good candidate for surgical intervention. I discussed modalities of operative intervention and rationale for resection of left upper lip melanoma, reconstruction with local tissue rearrangement, and a sentinel lymph node biopsy, sooner rather than later. They were counseled on perioperative routine and surgical plan, and all of their questions were addressed to their understanding prior to electing for surgery. I answered all the patient's questions in detail and addressed their concerns; patient showed clear understanding prior to electing for surgery. I also reviewed the risks, benefits, alternatives, and recovery of surgery. PLAN: - Photos taken and uploaded to chart today via [email or web address] - Pathology re-read to be obtained - Surgical plan is for resection of left upper lip melanoma, reconstruction with local tissue rearrangement, and a sentinel lymph node biopsy - Surgery at [facility] or . Likely plan is to wait for surgical intervention until after 36 weeks . - PACC prior to surgery - Nuclear medicine appointment at [facility] the (more content not included)... [facility] 12-28-2023 History of Present illness Narrative Images from the original note were not included. DATE: January 03, 2024 CC: New Melanoma Patient Referring Physician: Margarita Kim MD at [facility] in [place] HPI: Vy Mckeon is a 33 year old female who presents for surgical evaluation of 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 She is currently 27 weeks ; her estimated delivery date is 04/03/2024. She reportedly has had a lesion on her left upper lip for most of her life, but within the last 3 years the lesion became more raised and irregular. Diagnosis has been established with shave biopsy performed on 12/10/2023 by Margarita Kim MD The patient has a tumor thickness of 0.7 MM without ulceration and positive involvement of the margins Seen by Dermatology Yes Past Medical History/Risk Factors: Hx of Melanoma: No Hx of NMSC: No Hx of Atypical Nevi: No Hx of previous malignacy: No Sun Exposure History: Hx of intense intermittent sun exposure/blistering sunburns: No Hx of chronic Sun Exposure: No Hx of Tanning bed use: Yes Immunosuppresion History: Hx of organ transplantation: No Hx of radiation:No Hx of immunosuppressive medication use: No Family h/o skin cancer: Present - maternal grandmother with melanoma on her nose PAST MEDICAL HISTORY Diagnosis Date Anxiety Asthma Depression Melanoma (HCC) PAST SURGICAL HISTORY Procedure Laterality Date D&C, DIAG AND/OR THERAPEUTIC PAST SURGICAL HISTORY OF Shaved Biopsy above lip Medications and Allergies were reviewed and verified. Current Outpatient Medications Medication Sig Dispense Refill diphenhydramine HCl (UNISOM, DIPHENHYDRAMINE, ORAL) albuterol HFA (PROVENTIL HFA, VENTOLIN HFA) 90 mcg/actuation inhaler Inhale 2 Puffs as instructed every 6 hours as needed. ondansetron orally disintegrating (ZOFRAN ODT) 4 mg disintegrating tablet valACYclovir (VALTREX) 500 mg tablet aspirin 81 mg chewable tablet Take 81 mg by mouth. magnesium oxide (MAG-OX) 400 mg (241.3 mg magnesium) tablet Take 400 mg by mouth. omeprazole magnesium (ACID ROCK CRUSHER, OMEPRAZOLE, ORAL) Take by mouth as directed. PNV no.95/ferrous fum/folic ac ( ORAL) Take by mouth as directed. No current facility-administered medications for this visit. Social History Tobacco Use Smoking status: Never Smokeless tobacco: Never Substance Use Topics Alcohol use: Yes FAMILY HISTORY Problem Relation Age of Onset Melanoma Maternal Grandmother REVIEW OF SYSTEMS GENERAL:Negative for malaise, significant weight loss and fever. NECK: Negative for lumps, goiter, pain and significant neck swelling. SKIN: See HPI HEMATOLOGIC/LYMPHATIC/IMMUNOLOGI C:Negative for prolonged bleeding, bruising easily, and swollen nodes. PHYSICAL EXAM: BP 148/83 Pulse 94 Temp 36.2 C (97.1 F) (Temporal) Resp 20 LMP 06/24/2023 SpO2 99% GENERAL: Patient is a well-nourished , appearing stated age, resting comfortably, breathing regularly. No acute distress. Skin: Pigmented lesion on the left upper lip with a variegated pattern, real estate associate in the middle with a number of dark spots. The lesion measures 1 cm in diameter. Photos taken, see [facility] Get Images LABS: Pathology Report - EXTERNAL PATHOLOGY REPORT - 12/10/2023: ASSESSMENT/PLAN: (C43.9) Malignant melanoma of skin (HCC) (primary encounter diagnosis) ANTICOAGULATION HISTORY: Aspirin 81 (no need to hold) ANTICOAGULATION INDICATORS: pre-eclampsia Patient has a history of asthma, denies history of hospitalization. She denies gestational DM or HTN. Vy Mckeon is a 33 year old female who presents for surgical evaluation of melanoma of the left upper lip. At this time, after discussing the patient's symptoms and reviewing their pathology, I believe the patient is a good candidate for surgical intervention. I discussed modalities of operative intervention and rationale for resection of left upper lip melanoma, reconstruction with local tissue rearrangement, and a sentinel lymph node biopsy, sooner rather than later. They were counseled on perioperative routine and surgical plan, and all of their questions were addressed to their understanding prior to electing for surgery. I answered all the patient's questions in detail and addressed their concerns; patient showed clear understanding prior to electing for surgery. I also reviewed the risks, benefits, alternatives, and recovery of surgery. PLAN: - Photos taken and uploaded to chart today via [email or web address] - Pathology re-read to be obtained - Surgical plan is for resection of left upper lip melanoma, reconstruction with local tissue rearrangement, and a sentinel lymph node biopsy - Surgery at [facility] or . Likely plan is to wait for surgical intervention until after 36 weeks . - PACC prior to surgery - Nuclear medicine appointment at [facility] the morning of surgery - Post op 7-10 days with Tana Cervantes APRN.CHIEF COMPRESSOR STATION ENGINEER - Consult placed to [facility] for risk assessment and guidance: call [phone] to schedule. - Recommend regular dermatology follow-up for FBSE - Q3 months for 2 years, Q6 months for 5 years and Q1 year for the rest of his/her life - Patient follows with OBGYN Dr. Castaneda in [place], [place] Follow up after 36 weeks of and with [facility]'s recommendations. The patient is seen and examined by Dr. Sharp and the following reflects his service. Scribed by Valerie Bedoya, COLLAR STAY FUSER TENDER NOTE: I agree with the Chief Complaint, ROS, and Past Histories independently gathered by the clinical academic support center director and the remaining scribed note accurately describes my personal service to the patient. I personally examined this patient and formulated treatment plan for her. Patient is referred for evaluation and management of a invasive melanoma of the left upper lip cutaneous portion. The patient has had a large pigmented lesion there for most of her life and noted to change in it in the last several months. She has a biopsy-proven invasive melanoma at least 0.7 mm thick Robert's level 4. The lesion itself is over a centimeter in size I advised her that resection of this would create a significant defect of the upper lip and might take more than 1 operation to reconstruct the defect caused by the resection. I also mentioned that due to the deep positive margin and Robert's level 4 she would be a candidate for sentinel lymph node biopsy. Because she is currently I told her we would coordinate this with her adult high school instructor team here at the [facility]. While I believe this to be a somewhat low risk tumor I think we can wait until further her before we plan injection of radioactive tracer and surgery. She agrees with this plan and is eager to move ahead. She has a number of questions I answered them to the best my ability and her satisfaction and she was very happy with today's consultation. Fransico Sharp MD documented in this encounter [facility] 12-26-2023 Note HNO ID: [id number] Author: USMAN GOLDBERG MD Service: ? Author Type: Physician Type: Progress Notes Filed: 12/27/2023 12:46 Note Text: NAME: Vy Mckeon [facility] NO.: [id number] DATE OF SERVICE: December 26, 2023 (Krystal) Referring Provider: Self Consultation requested by Self Referred for an opinion regarding Ms. Vy Mckeon, and my final recommendations will be communicated back to the requesting physician by way of shared medical record or letter via US mail. Additional Clinicians involved in Vy Mckeon's care:Freddie Delgado DIAGNOSIS: Cutaneous melanoma ASSESSMENT: 33 year old woman who presents 12/26/2023 and is 26 weeks gravid because of a new diagnosis of invasive cutaneous melanoma. She had a lifelong flat mole (beauty heide) that changed shape on her left-sided upper lip a few years ago. 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 Will need wide excision. No imaging at this time. Will refer to facial / reconstructive Plastic Surgery for wide excision. PLAN: Referral to Surgery for wide excision HPI: CASE HISTORY: Reverse Chronological Order 12/10/2023 - Shave Biopsy of Left Upper Cutaneous Lip: - Invasive malignant melanoma - cutaneous Breslow 0.7 mm, Ulceration negative, Robert (IV), LVI (-), tumor regression (-) preliminary stage pT1a.... Initial Visit, December 26, 2023: Vy Mckeon presents today Hematology and Oncology evaluation. She is a 33 year old female who was found to have invasive malignant melanoma of the left upper lip after shave biopsy on 12/09. She is currently 26 weeks (tomorrow). 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 First appeared to be raised up 3 years ago - wasn't bothering her Maternal GM melanoma face (nose) in 80's. No history of breast cancer in the family. Prior History from Dr. Margarita Kim's Consultation on 12/10/2023: This is a 33 year old female who is a new patient who is being seen for a chief complaint of a skin lesion, located on the left lip. The lesion is enlarging, irregular, and now has a bump and has been present for years. This lesion has not been treated in the past. She presents today for: evaluation and management. She has no history of previous skin cancer and no family history of melanoma. Patient has spot on her face since . She has noted that spot is more raised. REVIEW OF SYSTEMS Per HPI and otherwise negative by full review of organ systems. ECOG PERFORMANCE STATUS: 0 PHYSICAL EXAMINATION: Vitals: BP 134/74 Pulse 87 Temp (Src) 97.3 (Temporal) Resp 16 Ht 5' 7 (1.70m) Wt 189 lb 13.1 oz (86.1kg) SpO2 98% LMP 06/24/2023 BMI 29.72 kg/(m2). Body surface area is 2.02 meters squared. Exam limited to gross visualization where appropriate. Gen.: This is an age-appropriate patient in no acute distress. Head: Appears atraumatic with no visible lesions. Eyes: Pupils equally round and reactive to light, extraocular muscles are intact. Neck: Supple. Respiratory: Appears to be respiring comfortably. Neurologic: Nonfocal to gross visualization. Alert and oriented ?3. Psychiatric: No evidence of inappropriate anxiety or depression. Skin: Visible areas of skin without rash, lesions, wounds or petechiae. - Flat dark / curtis mole on left upper lip approximately 1 cm in diameter with central excision. Abdomen is Gravid. ALLERGIES: ALLERGIES Allergen Reactions Penicillins Unknown unknown Other Reaction(s): Unknown Reaction MEDICATIONS: diphenhydramine HCl (UNISOM, DIPHENHYDRAMINE, ORAL) albuterol HFA (PROVENTIL HFA, VENTOLIN HFA) 90 mcg/actuation inhaler Inhale 2 Puffs as instructed every 6 hours as needed. ondansetron orally disintegrating (ZOFRAN ODT) 4 mg disintegrating tablet valACYclovir (VALTREX) 500 mg tablet aspirin 81 mg chewable tablet Take 81 mg by mouth. magnesium oxide (MAG-OX) 400 mg (241.3 mg magnesium) tablet Take 400 mg by mouth. omeprazole magnesium (ACID ROCK CRUSHER, OMEPRAZOLE, ORAL) Take by mouth as directed. PNV no.95/ferrous fum/folic ac ( ORAL) Take by mouth as directed. LABORATORY VALUES: WBC (k/uL) Date Value 12/26/2023 9.72 RBC (m/uL) Date Value 12/26/2023 3.99 Hemoglob (more content not included)... [facility] 12-17-2023 History of Present illness Narrative Subjective Patient ID: Vy Mckeon is a 33 y.o. female. FRANDY Mcclellan presents to the office for follow up.She was last seen with continued depression and anxiety and had stopped taking Zoloft, hydroxyzine and trazodone because she was found to be . She is 24 weeks along in her with Placenta previa. Last DEVELOPER SUPPORT ENGINEER visit 12/11/23 with . carrier screening result for GJB2-related disorders is negative. Hx of miscarriage but not related to placenta previa. She is having worsening reflux and nausea. Nausea and vomiting at night time but she is able to keep food down during the day. She has been using Tums for the reflux PRN with minimal help. She does not have morning sickness. Lab work from [facility] 12/10 pre- visit RBC-3.72, HGB 11.2, HCT 34.2. She is also taking vitamins. Relates fatigue and dizziness, headaches about 4 time a week that just started happening recently. Does not check blood pressure at home, BP is 128/80 today. Denies leg swelling. Diet is balanced.She drinks about 32 oz of water a day and occasional soda. Zofran and omeprazole is being used to manage nausea and reflux. Having Sleep disturbance, trouble falling and staying asleep. Sleep study referral was sent at the last visit. Appointment next month. She is continued to have sleep apnea. Not taking any med for sleep. Sleep and depression is manageable. She was prescribed Mg oxide to manage depression by OB which has helped a little. The following portions of the patient's history were reviewed and updated as appropriate: allergies, current medications, past family history, past medical history, past social history, past surgical history, problem list, and medication reconciliation was completed including current medication and post discharge medication. Review of Systems Constitutional: Positive for fatigue. Negative for chills, diaphoresis, fever and unexpected weight change. HENT: Negative. Respiratory: Negative for chest tightness and shortness of breath. Cardiovascular: Negative for chest pain. Gastrointestinal: Positive for nausea and vomiting. Negative for abdominal pain. Genitourinary: Negative. Skin: Negative. Psychiatric/Behavioral: Positive for sleep disturbance. Negative for self-injury and suicidal ideas. Objective Physical Exam Vitals and nursing note reviewed. Constitutional: General: She is not in acute distress. Appearance: Normal appearance. She is not ill-appearing. HENT: Head: Normocephalic and atraumatic. Cardiovascular: Rate and Rhythm: Normal rate and regular rhythm. Pulses: Normal pulses. Heart sounds: Normal heart sounds. No murmur heard. Pulmonary: Effort: Pulmonary effort is normal. No respiratory distress. Breath sounds: Normal breath sounds. No stridor. No wheezing, rhonchi or rales. Musculoskeletal: Cervical back: Normal range of motion and neck supple. Right lower leg: No edema. Left lower leg: No edema. Skin: General: Skin is warm and dry. Capillary Refill: Capillary refill takes less than 2 seconds. Findings: No erythema or rash. Neurological: Mental Status: She is alert. Psychiatric: Mood and Affect: Mood normal. Behavior: Behavior normal. Assessment/Plan Follow-up with DEVELOPER SUPPORT ENGINEER for follow-up on hematology result showing minimally low Hgb, Hct and RBC. She can discuss if they recommend increased iron. Encouraged to stay hydrated and increase fluid intake. Discussed trial of vitamin B6 for nausea. And doxylamine for sleep PRN. Encouraged to discuss with OB about increased nausea. FU 3 months or PRN. Vy was seen today for nausea/vomiting. Diagnoses and all orders for this visit: Nausea and vomiting, unspecified vomiting type Psychophysiological insomnia Other orders - pyridoxine, vitamin B6, (vitamin B-6) 25 mg tablet; Take 1 tablet (25 mg total) by mouth 3 (three) times a day as needed (nausea). - doxylamine (UNISOM) 25 mg tablet; Take 1 tablet (25 mg total) by mouth nightly as needed for sleep. Note completed with assistance of PRODUCE SPECIALIST student. GIOVANNI Darling 12/17/23 [id number] documented in this encounter [facility] 12-17-2023 Miscellaneous Notes Disclaimer: This note is intended for educational purposes only. It does not constitute a patient visit and is not to be used or relied on for treatment, billing, or any other purposes. It has been created solely for to enable the student to practice documentation to achieve the expected level of competency in charting and receive feedback regarding same. This note is not a part of the legal medical record. documented in this encounter [facility] 12-17-2023 Progress note Formatting of t his note might be different from the original. Disclaimer: This note is intended for educational purposes only. It does not constitute a patient visit and is not to be used or relied on for treatment, billing, or any other purposes. It has been created solely for to enable the student to practice documentation to achieve the expected level of competency in charting and receive feedback regarding same. This note is not a part of the legal medical record. [facility] 12-07-2023 History of Present illness Narrative Summary: FOB carrier screening results Called Vy to let her know that FOB's carrier screening result for GJB2-related disorders is negative. The is low risk to be affected with this condition. Vy understood and had no additional questions. I encouraged her to reach out if anything comes up. documented in this encounter [facility] 11-20-2023 History of Present illness Narrative Video Visit via Real-time Synchronous Audiovisual Provider Location: [facility] [place] [id number] [facility], [address] [place] [id number] Patient Location: Other Patient Location Ballistics Professor: None Video Visit Consent Statement: I discussed [...] that there are some limitations compared to [id number] evaluations. We elected to proceed. REASON FOR OFFICE VISIT: placenta previa HISTORY OF PRESENT ILLNESS: Vy Mckeon is a pleasant 33 y.o. at 20w5d due on Estimated Date of Delivery: 04/03/24 . 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 She denies headaches, vision changes, nausea, vomiting, right upper quadrant or epigastric pain, SOB or chest pain. She denies contractions, vaginal bleeding, leaking of fluid. She reports good movement. 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, GJB2-related PAST OBSTETRICAL HISTORY: OB History Para Term AB Living 2 1 SAB IAB Ectopic Multiple Live Births 1 # Outcome Date GA Lbr Prosper/2nd Weight Sex Delivery Anes PTL Lv 2 Current 1 SAB 05/2022 MEDICAL HISTORY: Past Medical History: Diagnosis Date ADHD Anxiety Asthma Asthma Depression SURGICAL HISTORY: Past Surgical History: Procedure Laterality Date DILATION AND CURETTAGE OF UTERUS 2021 ALLERGIES: Allergies Allergen Reactions Penicillins Other (See Comments) unknown CURRENT MEDICATIONS: Current Outpatient Medications: albuterol (PROVENTIL HFA;VENTOLIN HFA) 90 mcg/actuation inhaler, Inhale 2 puffs every 6 (six) hours as needed for wheezing., Disp: 18 g, Rfl: 2 aspirin 81 mg chewable tablet, Chew 1 tablet (81 mg total) and swallow in the morning., Disp: , Rfl: omeprazole (PriLOSEC) 40 mg capsule, Take 1 capsule (40 mg total) by mouth in the morning., Disp: 90 SOLN, Rfl: 1 ondansetron ODT (ZOFRAN ODT) 4 mg disintegrating tablet, Dissolve 1 tablet (4 mg total) on tongue every 8 (eight) hours as needed for nausea or vomiting., Disp: , Rfl: [id number]- 29-1-400 mg combo pack,tablet & cap,DR, Take by mouth., Disp: , Rfl: sertraline (ZOLOFT) 25 mg tablet, Take 1 tablet (25 mg total) by mouth in the morning. (Patient not taking: Reported on 09/10/2023), Disp: 30 tablet, Rfl: 2 valACYclovir (VALTREX) 500 mg tablet, TAKE 1 TABLET BY MOUTH EVERY DAY, Disp: 30 tablet, Rfl: 0 REVIEW OF SYSTEMS: Head and Neck: Negative for any dizziness and headaches. Cardiovascular and Respiratory System: Denies any chest pain, shortness of breath, and coughing. Abdominal and System: Denies any abdominal pain, nausea, vomiting, vaginal bleeding, and vaginal discharge FAMILY/GENETIC HISTORY: No family history of VTE, cardiac defects and mental retardation. SOCIAL HISTORY:Patient denies tobacco use, alcohol use, or drug use. RECENT HOSPITALIZATION: none REVIEW OF TESTS AND ULTRASOUND REPORTS: Referral records and epic chart were reviewed Pertinent Ultrasound findings are see formal ultrasound report. Orders Only on 11/13/2023 Component Date Value Ref Range Status Unlisted lab test 10/25/2023 see scanned report Final HABITS: Patient activity no restrictions, diet no restrictions PHYSICAL EXAMINATION: LMP 06/28/2023 Well-appearing in no distress. Respirations not labored, speaking comfortably in full sentences Gravid abdomen OVERALL ASSESSMENT -Vy Ornelas Mike is a pleasant 33 y.o. at 20w5d -placenta previa -advanced maternal age, 33 years old -carrier positive for non syndromic hearing loss COUNSELING We discussed that patient has not anterior placenta with a placenta previa. We discussed that typically placenta previa that are identified in mid trimester typically resolve on follow up ultrasound as advances. There is no evidence of vasa previa on ultrasound today, though a lateral maternal venous vessel can be seen on the cervix. The placental cord umbilical insertion site is eccentric and toward the fundus. We discussed the importance of following up with a repeat transvaginal ultrasound at 32 weeks to assess resolution placenta previa in to evaluate for type 3 vasa previa. Return precautions were reviewed including vaginal bleeding, leaking of fluid and contractions. With regards to maternal age, we discussed that there was no indication for serial growth ultrasounds or testing. SUMMARY/RECOMMENDATION: Repeat transvaginal ultrasound at 32 weeks to evaluate for resolution of vasa previa. DISPOSITION: At this point the patient is in complete care of her back tender paper machine. Patient does have ultrasound and office visit scheduled with us. Thank you for allowing me to participate in the care of Vy Mckeon. If there any questions please do not hesitate to contact us. Fidencio Rojas MD Maternal- Medicine [facility] [address] [facility] [address] [facility] 1[address] [place] [address] [facility], the CDC, and other organizations representing maternal and public health professionals recommend that , , and lactating people and those considering receive the COVID-19 vaccination. Vaccination is the best method to reduce maternal and complications of SARS-CoV-2 infection. This document was created with [employer] technology. Though I make every effort to review the dictation as it is transcribed, on occasion the spoken word can be misinterpreted by the technology leading to inappropriate words, phrases, or sentences. This note is addressed to the requesting provider as a consultation for clinical guidance. Specific medical abbreviations are occasionally used and those are generally approved by the [place]?Board of?Obstetrics and?Gynecology?as well as?Justyna rea abbreviations. The above plan of care was based solely on the diagnoses for which a consultation was requested. ?More frequent testing may be indicated based on her other medical/obstetrical conditions. The management of other or medical conditions is beyond the scope of requested consultation and will continue to be followed by the primary back tender paper machine or primary care provider. Note to patient: The Cures Act makes medical notes like these available to patients in the interest of transparency. However, be advised this is a medical document. It is intended as peer to peer communication. It is written in medical language and may contain abbreviations or verbiage that are unfamiliar. It may appear blunt or direct. Medical documents are intended to carry relevant information, facts as evident, and the clinical opinion of the practitioner. documented in this encounter [facility] 11-12-2023 History of Present illness Narrative Reason for Appointment: Patient ID: Vy Mckeon is a 33 y.o. female who presents for Routine Visit Patient presents today for Return OB appointment. Current Medications: has a current medication list which includes the following prescription(s): valacyclovir. Medical History: Active Ambulatory Problems Diagnosis Date Noted Attention deficit hyperactivity disorder ([facility] [facility] 02/13/2023 Bipolar disorder, most recent episode depressed (CMS/[facility]) 02/13/2023 Depression (CMS/HCC) 02/13/2023 Generalized anxiety disorder (CMS/HCC) 02/13/2023 Insomnia 02/13/2023 Mild episode of recurrent major depressive disorder (HCC) (CMS/HCC) 02/13/2023 Mild intermittent asthma without complication (CMS/[facility]) 02/13/2023 Asthma exacerbation, mild (CMS/[facility]) 02/13/2023 Mild persistent asthma with (acute) exacerbation (CMS/[facility]) 02/19/2023 Second trimester 10/08/2023 AMA (advanced maternal age) primigravida 35+, unspecified trimester 10/08/2023 Resolved Ambulatory Problems Diagnosis Date Noted No Resolved Ambulatory Problems Past Medical History: Diagnosis Date ADHD (attention deficit hyperactivity disorder) (CMS/[facility]) Allergies Anxiety Asthma (CMS/HCC) Bipolar disorder (CMS/HCC) Family History Problem Relation Name Age of Onset Anxiety disorder Mother Depression Mother Depression Father Hypertension Father Anxiety disorder Sister Anxiety disorder Sister Bipolar disorder Mother's Sister Suicide Attempts Neg Hx Social History Tobacco Use Smoking status: Never Smokeless tobacco: Never Substance Use Topics Alcohol use: Never Comment: Caffeine intake: 1-2 cups per day coffee, pop Drug use: Never Past Surgical History: Procedure Laterality Date DILATION AND CURETTAGE OF UTERUS Allergies Allergen Reactions Penicillin G Hives Penicillins Unknown unknown Other Reaction(s): Unknown Reaction Review of Systems: Review of Systems Constitutional: Negative. HENT: Negative. Eyes: Negative. Respiratory: Negative. Cardiovascular: Negative. Gastrointestinal: Negative. Musculoskeletal: Negative. Skin: Negative. Neurological: Negative. Psychiatric/Behavioral: Negative. All other systems reviewed and are negative. Hematological: Negative. Endocrine: Negative. Objective Physical Exam Constitutional: Appearance: Normal appearance. She is normal weight. HENT: Head: Normocephalic. Cardiovascular: Rate and Rhythm: Normal rate. Pulses: Normal pulses. Pulmonary: Effort: Pulmonary effort is normal. Breath sounds: Normal breath sounds. Abdominal: Palpations: Abdomen is soft. Musculoskeletal: General: Normal range of motion. Neurological: General: No focal deficit present. Mental Status: She is alert and oriented to person, place, and time. Psychiatric: Mood and Affect: Mood normal. Behavior: Behavior normal. Thought Content: Thought content normal. Judgment: Judgment normal. Vitals and nursing note reviewed. Vitals: Estimated body mass index is 28.47 kg/m as calculated from the following: Height as of 23: 5' 7 . Weight as of this encounter: 181 lb 12.8 oz. BP: 114/72 Patient's last menstrual period was 06/28/2023. Assessment/Plan Encounter Diagnoses Name Primary? Second trimester Vaginal discharge STD exposure Screening, , for anatomic survey Patient presents today for an cultures/routine obstetrics appointment. Patient is currently 19w4d . Patient is doing well and states she has no complaints. Cultures was obtained without difficulty and patient was given [facility] order to have obtained. Follow Up: Patient is to return to our office in 4 weeks for routine OB appointment Documented by Dana Farris LPN on behalf of: SHANT España documented in this encounter [facility] 11-12-2023 History of Present illness Narrative Summary: MOB carrier screening results Called and discussed carrier screening results with Vy. 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 We discussed the natural history and etiology of the condition. I recommend FOB carrier screening if he's available. She understood and had no additional questions. She will reach out to FOB to get the necessary info needed for me to order his carrier screening (full name, , phone number, email, health insurance info). She requests the kit be sent to her home address. I will be on the lookout for an email from her with his information. I encouraged the patient to call back with any additional questions or concerns. documented in this encounter [facility] 10-29-2023 History of Present illness Narrative Summary: [...] completed between 11/10-11/17. documented in this encounter [facility] 10-22-2023 History of Present illness Narrative Summary: M Genetic Counseling Note Provider at different site/location than patient. I confirmed the patient is located in the [facility]. Vy Mckeon is currently at home and provider at remote site. The patient consented to be treated electronically via this form of telemedicine. This visit was not related to an office visit or procedure in the past 7 days, and in-office follow up is not recommended in the next 24 hours. Video Visit via Real-time Synchronous Audiovisual Provider Location: [facility] AT [address] [id number] Patient Location: Patient's home Patient Location Ballistics Professor: None Video Visit Consent Statement: I discussed [...] that there are some limitations compared to [id number] evaluations. We elected to proceed. Name: Vy Mckeon DOB: 1990 Date of Visit: 10/22/2023 Email: [email or web address] Preferred contact method: email Partner's Name: Bogdan Age: 32 Requesting Physician: Eliazar Castaneda DO [address] [place], [place] [address] , [place] [address] Reason for Referral: Vy Mckeon is a 33 y.o. female who presented to [facility]. Vy is here at the [...] Screen: YES - low risk Performing lab[facility] Conditions screened: Trisomy 13, Trisomy [...] of the medical records and evaluation by program medical director of the affected individual would be recommended. [...] age I personally spent 25 minutes in [id number] time with this patient. I provided genetic [...] call or email their genetic counselor at [phone] or [email or web address] if any additional questions or concerns should arise. TAMMY Soto Licensed, Certified Genetic Counselor documented in this encounter [facility] 05-29-2023 Evaluation note Encounter Date Diagnosis Assessment Notes May, Thrush (ICD-10 - B37.0) Continue home medications as prescribed. Use the nystatin mouthwash as prescribed, swish and swallow. Follow-up with your family physician if no improvement in 2 to 3 days [facility]19[facility]* Encounter Date Diagnosis Assessment Notes [...] educated on the importance of PPI optimization [facility] Other 05-10-2023 Evaluation note* Encounter Date Diagnosis [...] January, Other Contusion mater ial was printed [facility] Other 08-23-2022 NoteOPERATIVE NOTE OPERATION DATE: 05/23/2022 PROCEDURE: Suction D AND C. PREOPERATIVE DIAGNOSIS: Missed . POSTOPERATIVE DIAGNOSIS: Missed . ANESTHESIA: General. SURGEON: Eliazar Castaneda D.O. WATER RESOURCES TECHNICAL OFFICER: None. FINDING: Products of conception. SPECIMEN: Products [...] products of conception were removed using an 8-Slovak suction curette. Excellent hemostasis was noted. The patient tolerated the procedure well. Sponge, lap, and needle counts were correct x 2. All instruments were then removed from the patient's vagina. The patient was taken to the Recovery Room in stable condition. ??[facility] note Includes: Assessments for all patient encounters Findings Encounter Date Depressive disorder Telebehavioral alth with Emilee Claribel [facility] 03/29/2020 Generalized anxiety disorder [facility] with [facility] Claribel [facility] 03/29/2020 Dysthymic disorder Established Patie nt with Bobbi Colon [facility] 10/14/2019 Generalized anxiety disorder Establis hed Patient with Bobbi Colon [facility] 10/14/2019 Z68.24 - Body mass index (BM I) 24.0-24.9 adult Medical Established Patient with Candace Grossman [employer] 10/14/2019 F34.1 - Dysthymic disorder BH Establishe d Patient with Bobbi Colon [facility] 09/04/2019 Generalized anxiety disorder BH Establis hed Patient with Bobbi Colon [facility] 09/04/2019 Body mass index Medical Established Patient with Candace Grossman [employer] 09/04/2019 Diabetes Risk Test Score was 0 score 09/04/2019 Medical Established Patient with Candace Grossman [employer] 09/04/2019 Body mass index Nurse Visit with Candace Grossman CN P 08/19/2019 Diabetes Risk Test Score was 0 score 08/19/2019 Nurse Visit with Candace Grossman [employer] 08/19/2019 Generalized anxiety disorder BH Establis hed Patient with Bobbi Colon [facility] 07/28/2019 Severe recurrent major depre 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 features BH Established Patient with Bobbi Colon [facility] 07/28/2019 AUDIT alcohol use disorders identification test was six 07/28/2019 Medical New Patient with Candace Grossman [employer] 07/28/2019 Diabetes Risk Test Score was 0 score 07/28/2019 Medical New Patient with Candace Grossman [facility] 07/28/2019 ZAN-7 score was 21 07/28/2019 Medical Ne w Patient with Candace Grossman [facility] 07/28/2019 PHQ-9: total score was 21 07/28/2019 Med ical New Patient with Candace Grossman [facility] 07/28/2019 Z68.22 - Body mass index (BM I) 22.0-22.9 adult Medical New Patient with Candace Grossman [employer]IE[employer]ATION ENGINE[employer] 07/28/2019 [facility] Work Phone: Evaluation noteNo assessment information available [facility] Work Phone: Evaluation note* Diagnosis Onset Date Resolution Status GERD (gastroesophageal reflux disease) acute [facility] Work Phone: Evaluation note* Diagnosis [...] [facility] Diagnosis Second trimester state, incidental Vaginal discharge Leukorrhea, not specified as infective STD exposure Screening, , for anatomic survey Encounter for anatomic survey Chronic cluster headache, not intractable [facility] Diagnosis Multigravida of advanced maternal age in second trimester Family history of autism Family history of mental disorder Family history of psychiatric condition [facility]* Diagnosis 20 weeks gestation of - Primary Placenta previa antepartum in second trimester Advanced maternal age in multigravida, second trimester documented in this encounter [facility]* Diagnosis Placenta previa antepartum in second trimester- Primary Multigravida of advanced maternal age in second trimester documented in this encounter [facility]* Diagnosis Nausea and vomiting, unspecified vomiting type- Primary Psychophysiological insomnia Persistent disorder of initiating or maintaining sleep [facility] Diagnosis Malignant melanoma of skin (HCC)- Primary Melanoma of skin, site unspecified [facility] Diagnosis Encounter for anatomic survey Encounter for anatomic survey- Primary [facility] Diagnosis Encounter for anatomic survey documented [facility]* Diagnosis Malignant melanoma of skin (HCC) Melanoma of skin, site unspecified Skin cancer Unspecified malignant neoplasm of skin, site unspecified Placenta previa antepartum in second trimester * Assessment & Plan Note - Ana Peoples MD - 01/21/2024 1:34 PM EDT Associated Problem(s): Skin cancer 01/22/2024 [facility] Pt is a 33 year old 29w4d with a new diagnosis of malignant melanoma located above the left upper lip. Oncologist Usman Goldberg MD Surgeon Fransico Sharp MD Pts general OBGYN in [place], [place]: Eliazar Castaneda MD The plan is for wide local excision with reconstruction, which may take multiple trips to the OR. The OR plan involves radioactive tracer for sentinal node She has not been imaged for staging. She comes to [facility] today for discussion on when to deliver. Of note, pt had had a placenta previa which has resolved on imaging today. We discussed that imaging, surgery and some types of Chemo are possible during . Radioactive tracer materials are also sometimes used in depending on the risk/benefits in a particular patient. I spoke with radiology for general background information on the tracers used for sentinel node detection. The tracer they used on main campus is a possibility during should we decide to operate during . I spoke with her oncologist. After the discussion of CT scan vs PET scan in and the radiation risks, as well as the anticipated spread pattern of melanoma given its location on her face, wedecided that head, neck and chest CT to help stage would assist with decisions on when to deliver. I have tried to call the patient today twice and I have left messages. Will continue to try to reachpt to discuss plan. Radiation dose for combined head/neck and chest should be below the level seen with increase in leukemias for the fetus per the ACOG guidance on imaging in . While plan will be confirmed after imaging, tentatively, if imaging shows no spread will wait til 39 weeks for delivery. (previa has resolved thus no obstetric reason for early delivery anymore) If there is spread and pt needs immunotherapy, will accelerate delivery depending on findings. Melanoma is one of the few cancers that can metastasize to the placenta. No unusual placental masses are appreciated on today's scan. The placenta will need to come to [facility] for pathology after delivery. From an obstetrical point of view, pt can deliver [facility] to [facility] at [facility] if she goesat term and the CT does not show any spread.. We would need to find a way to get the placenta to [facility] for examination. I have left a message with Dr. Castaneda's office to call me back so that we can confirm ability to get placenta to [facility] for pathology should she deliver at [place]. Ana Peoples MD documented [facility]* Diagnosis Malignant melanoma of skin (HCC)- Primary Melanoma of skin, site unspecified Malignant melanoma of skin (HCC) Melanoma of skin, site unspecified documented in this encounter [facility] Narrative - Reported* Type Description Date Medical History anxiety Medical History depression Medical History ADHD Surgical History D&C [facility] Other History general Narrative - Reported* Type Description Date Medical History anxiety Medical History depression Medical History ADHD Surgical History D&C 2021 [facility] Other History of Present illness Narrative History of Present Illness not supported for this document type No History of Present Illness [facility] Work Phone: Hospital Discharge instructions Additional [...] if you have any problems. -Office number [phone] Work Phone: Instructions Instructions not supported for this document type No Instructions [facility]ed[facility] Work Phone: InstructionsNot on filedocumented in this encounter [facility]ructionsNot on filedocumented in this encounter [facility] SystemInstructionsNot on filedocumented in this encounter [facility] SystemPatient problem outcome Narrative Includes: Evaluations & Outcomes for active Goals No Outcomes [facility] Work Phone: reason for referral (narrative)No Reason for Referral [facility] Work Phone: reason for referral (narrative)* Diagnostic Procedure Only (Routine) - Closed Specialty Diagnoses / Procedures Referred By Kalina ghotra Referred To Contact [facility] Diagnoses Encounter for anatomic survey Procedures OBSTETRIC ULTRASOUND WHI US PREG UTERUS AFTER 1ST [place] [address] [place] [address] [facility] [address] [place] [address] Referral ID Status Reason Start Date Expiration Date V isits Requested Visits Authorized [id number] Closed Auto-Generate d Referral 01/21/2024 01/20/2025 1 1 [facility] NarrativeUNCONTROLLED GERD//REFERRAL FROM VITO [facility] Other Reason for visit Narrative* Consultation (Routine) - Pending Review Specialty Diagnoses / Procedures Referred By Kalina t Referred To Contact [facility] Diagnoses Multigravida of advanced maternal age in second trimester Eliazar Castaneda R, DO [address] [place] [address] [facility] Maternal Med [address] [place] [address] Referral ID Status Reason Start Date Expiration Date Visits Requested Visits Authorized [id number] Pending Review Specialty Services Required 10/10/2023 10/09/2024 1 1 [facility] Narrative* Diagnostic Procedure Only (Routine) - Closed Specialty Diagnoses / Procedures Referred By Contac t Referred To Contact [facility] Diagnoses Encounter for anatomic survey Procedures OBSTETRIC ULTRASOUND WHI US PREG UTERUS AFTER 1ST [place] [address] [place] [address] [facility] [address] [place] [address] Referral ID Status Reason Start Date Expiration Date V isits Requested Visits Authorized [id number] Closed Auto-Generate d Referral 01/21/2024 01/20/2025 1 1 [facility] Narrative - Reported Review of Systems not supported for this document type No Review of Systems [facility] Work Phone: Summary Purpose Family History No Family History Records Found Description Last Updated Paternal history of cardiovascular disor thuy 07/28/2019 Relationship Condition Age at Onset Recorded Date/T pia Not Specified Anxiety Unknown Chronic obstructive pulmonary disease Unk nown Advance Directives No Advanced Directives Records FoundDocuments on File Type Date Recorded Patient Email Marketing Manager Expl anation Advance Directives and Living Will Power of Varying Exceptionalities Teacher Advance Directive Response Recorded Date/ Time Advance Directives No February 07 3 3:12pm Reason for Referral Specialty Diagnoses / Procedures Referred By Contac t Referred To Contact Maternal and Medicine Diagnoses Placenta previa antepartum in second trimester Multigravida of advanced maternal age in second trimester Procedures US MFM with or without consult Fidencio Rojas MD [address] [place] [address] [facility] Maternal Med [address] [place] [address] Referral ID Status Reason Start Date Expiration Date V isits Requested Visits Authorized [id number] Pending Review 11/20/2023 11/19/2024 1 1 Specialty Diagnoses / Procedures Referred By Contac t Referred To Contact Diagnoses Malignant melanoma of skin (HCC) Procedures REFER TO PACC - PRE ANESTHESIA CONSULTATION CLINIC OFFICE/OUTPATIENT [facility] MDM 60 MINUTES Fransico Sharp MD [address] [place] [address] Referral ID Status Reason Start Date Expiration Date Visits Requested Visits Authorized [id number] Authorized PCP Requested Referral 01/04/2024 01/03/2025 1 1 Specialty Diagnoses / Procedures Referred By Contac t Referred To Contact Diagnoses Malignant melanoma of skin (HCC) Procedures CONSULT TO MATERNAL MEDI OFFICE/OUTPATIENT NEW [facility]IGH MDM 60 MINUTES Fransico Sharp MD [address] [place] [address] Referral ID Status Reason Start Date Expiration Date Visits Requested Visits Authorized [id number] Authorized PCP Requested Referral Auto-Generate d Referral 01/04/2024 01/03/2025 1 1 Specialty Diagnoses / Procedures Referred By Contac t Referred To Contact CT IMAGING Diagnoses Malignant melanoma of skin (HCC) Procedures CT CHEST W IVCON DIAGNOSTIC COMPUTED TOMOGRAPHY THORAX W/CONTRAST Usman Goldberg MD [address] [place] [address] [place] [address] Ct Imaging [id number] Referral ID Status Reason Start Date Expiration Date Visits Requested Visits Authorized [id number] Authorized Auto-Generat ed Referral 02/20/2024 02/21/2025 1 1 Specialty Diagnoses / Procedures Referred By Contac t Referred To Contact CT IMAGING Diagnoses Malignant melanoma of skin (HCC) Procedures CT NECK SOFT TISSUE W IVCON CT SOFT TISSUE NECK W/CONTRAST MATERIAL Usman Goldberg MD [address] [place] [address] [place] [address] Ct Imaging [id number] Referral ID Status Reason Start Date Expiration Date Visits Requested Visits Authorized [id number] Authorized Auto-Generat ed Referral 02/20/2024 02/21/2025 1 1 Assessments Findings Encounter Date Generalized anxiety disorder Establis hed Patient with Bobbi Isaiah [facility] 07/28/2019 Severe recurrent major depre 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 features Established Patient with Bobbi Isaiah [facility] 07/28/2019 AUDIT alcohol use disorders identification test was six 07/28/2019 Medical New Patient with Candace Grossman [facility] 07/28/2019 Diabetes Risk Test Score was 0 score 07/28/2019 Medical New Patient with Candace Dianelys [employer] ENG[employer] 07/28/2019 ZAN-7 score was 21 07/28/2019 Medical Ne w Patient with Candace Dianelys [employer] ENG[employer] 07/28/2019 PHQ-9: total score was 21 07/28/2019 Med ical New Patient with Candace Dianelys [employer]IE[employer]ATION ENGINEER 07/28/2019 Z68.22 - Body mass index (BM I) 22.0-22.9 adult Medical New Patient with Candace Grossman [employer]IE[employer]ATION ENGINEER 07/28/2019 Findings Encounter Date F34.1 - Dysthymic disorder BH Establishe d Patient with Bobbi Colon [facility] 09/04/2019 Generalized anxiety disorder BH Establis hed Patient with Bobbileif Colon [facility] 09/04/2019 Body mass index Medical Established Patient with Candace Grossman [facility] 09/04/2019 Diabetes Risk Test Score was 0 score 09/04/2019 Medical Established Patient with Candace Grossman [facility] 09/04/2019 Body mass index Nurse Visit with Candace Grossman P 08/19/2019 Diabetes Risk Test Score was 0 score 08/19/2019 Nurse Visit with Candace Dianelys [facility] 08/19/2019 Generalized anxiety disorder BH Establis hed Patient with Bobbileif Colon [facility] 07/28/2019 Severe recurrent major depre 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 features Established Patient with Bobbi Colon [facility] 07/28/2019 AUDIT alcohol use disorders identification test was six 07/28/2019 Medical New Patient with Candace Grossman [facility] 07/28/2019 Diabetes Risk Test Score was 0 score 07/28/2019 Medical New Patient with Candace Dianelys [facility] 07/28/2019 ZAN-7 score was 21 07/28/2019 Medical Ne w Patient with Candace Dianelys [facility] 07/28/2019 PHQ-9: total score was 21 07/28/2019 Med ical New Patient with Candace Dianelys [facility] 07/28/2019 Z68.22 - Body mass index (BM I) 22.0-22.9 adult Medical New Patient with Candacehalley Houstonen [employer]IEF COMPRESSOR [employer]ATION ENGINEER 07/28/2019 Findings Encounter Date Dysthymic disorder BH Established Patie nt with Bobbi Colon [facility] 10/14/2019 Generalized anxiety disorder BH Establis hed Patient with Bobbi Colon [facility] 10/14/2019 Z68.24 - Body mass index (BM I) 24.0-24.9 adult Medical Established Patient with Candace Grossman [employer] 10/14/2019 F34.1 - Dysthymic disorder BH Establishe d Patient with Bobbileif Colon [facility] 09/04/2019 Generalized anxiety disorder BH Establis hed Patient with Bobbi Colon [facility] 09/04/2019 Body mass index Medical Established Patient with Candace Grossman [employer] 09/04/2019 Diabetes Risk Test Score was 0 score 09/04/2019 Medical Established Patient with Candace Grossman [facility] 09/04/2019 Body mass index Nurse Visit with Candace Houstonen P 08/19/2019 Diabetes Risk Test Score was 0 score 08/19/2019 Nurse Visit with Cnadace Dianelys [facility] 08/19/2019 Generalized anxiety disorder BH Establis hed Patient with Bbobi Colon [facility] 07/28/2019 Severe recurrent major depre 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 features BH Established Patient with Bobbi Colon [facility] 07/28/2019 AUDIT alcohol use disorders identification test was six 07/28/2019 Medical New Patient with Candace Grossman [facility] 07/28/2019 Diabetes Risk Test Score was 0 score 07/28/2019 Medical New Patient with Candace Grossman [facility] 07/28/2019 ZAN-7 score was 21 07/28/2019 Medical Ne w Patient with Candace Grossman [facility] 07/28/2019 PHQ-9: total score was 21 07/28/2019 Med ical New Patient with Candace Grossman [facility] 07/28/2019 Z68.22 - Body mass index (BM I) 22.0-22.9 adult Medical New Patient with Candace Grossman [facility] 07/28/2019 Findings Encounter Date Visit for: contraceptive management Women's Heal th with Linnea Luz [facility] 04/08/2020 Z68.24 - Body mass index (BM I) 24.0-24.9, adult Women's Health with Linnea Luz [employer] 04/08/2020 Depressive disorder Telebehavioral He alth with Emilee Short [facility] 03/29/2020 Generalized anxiety disorder Telebeha vioral Health with Emilee Short [facility] 03/29/2020 Dysthymic disorder Established Patie nt with Bobbi Colon [facility] 10/14/2019 Generalized anxiety disorder Establis hed Patient with Bobbi Colon [facility] 10/14/2019 Z68.24 - Body mass index (BM I) 24.0-24.9 adult Medical Established Patient with Candace Grossman [employer] 10/14/2019 F34.1 - Dysthymic disorder BH Establishe d Patient with Bobbileif Colon [facility] 09/04/2019 Generalized anxiety disorder BH Establis hed Patient with Bobbi Colon [facility] 09/04/2019 Body mass index Medical Established Patient with Candace Dianelys [employer] 09/04/2019 Diabetes Risk Test Score was 0 score 09/04/2019 Medical Established Patient with Candace Dianelys [employer] 09/04/2019 Body mass index Nurse Visit with Candace Dianelys P 08/19/2019 Diabetes Risk Test Score was 0 score 08/19/2019 Nurse Visit with Candace Grossman [facility] 08/19/2019 Generalized anxiety disorder BH Establis hed Patient with Bobbi Colon [facility] 07/28/2019 Severe recurrent major depre 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 features Established Patient with Bobbileif Colon [facility] 07/28/2019 AUDIT alcohol use disorders identification test was six 07/28/2019 Medical New Patient with Candace Dianelys [facility] 07/28/2019 Diabetes Risk Test Score was 0 score 07/28/2019 Medical New Patient with Candace Dianelys [facility] 07/28/2019 ZAN-7 score was 21 07/28/2019 Medical Ne w Patient with Candace Dianelys [facility] 07/28/2019 PHQ-9: total score was 21 07/28/2019 Med ica New Patient with Candace Dianelys [facility] 07/28/2019 Z68.22 - Body mass index (BM I) 22.0-22.9 adult Medical New Patient with Candace Houstonen [facility] 07/28/2019 Findings Encounter Date Body mass index Nurse Visit with Candace Grossman P 08/19/2019 Diabetes Risk Test Score was 0 score 08/19/2019 Nurse Visit with Candace Grossman [facility] 08/19/2019 Generalized anxiety disorder BH Establis hed Patient with Bobbileif Colon [facility] 07/28/2019 Severe recurrent major depre 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 features Established Patient with Bobbi Colon [facility] 07/28/2019 AUDIT alcohol use disorders identification test was six 07/28/2019 Medical New Patient with Candace Dianelys [facility] 07/28/2019 Diabetes Risk Test Score was 0 score 07/28/2019 Medical New Patient with Candace Grossman [facility] 07/28/2019 ZAN-7 score was 21 07/28/2019 Medical Ne w Patient with Candace Grossman [facility] 07/28/2019 PHQ-9: total score was 21 07/28/2019 Med ical New Patient with Candace Dianelys [facility] 07/28/2019 Z68.22 - Body mass index (BM I) 22.0-22.9 adult Medical New Patient with Candace Grossman [employer] 07/28/2019 Findings Encounter Date Overweight Women's Health with Candace Dianelys [facility] 05/03/2020 Z68.24 - Body mass index (BM I) 24.0-24.9, adult Women's Health with Candace Grossman [facility] 05/03/2020 Visit for: contraceptive management Women's Heal th with Linnea Escobar [facility] 04/08/2020 Z68.24 - Body mass index (BM I) 24.0-24.9, adult Women's Health with Linnea Escobar [facility] 04/08/2020 Depressive disorder Telebehavioral He alth with Emilee Short [facility] 03/29/2020 Generalized anxiety disorder Telebeha [facility] with Emilee Short [facility] 03/29/2020 Dysthymic disorder Established Patie nt with Bobbi Colon [facility] 10/14/2019 Generalized anxiety disorder Establis hed Patient with Bobbi Colon [facility] 10/14/2019 Z68.24 - Body mass index (BM I) 24.0-24.9 adult Medical Established Patient with Candace Dianelys [facility] 10/14/2019 F34.1 - Dysthymic disorder BH Establishe d Patient with Bobbi Colon [facility] 09/04/2019 Generalized anxiety disorder BH Establis hed Patient with Bobbi Colon [facility] 09/04/2019 Body mass index Medical Established Patient with Candace Dianelys [facility] 09/04/2019 Diabetes Risk Test Score was 0 score 09/04/2019 Medical Established Patient with Candace Dianelys [facility] 09/04/2019 Body mass index Nurse Visit with Candace Grossman P 08/19/2019 Diabetes Risk Test Score was 0 score 08/19/2019 Nurse Visit with Candace Grossman [facility] 08/19/2019 Generalized anxiety disorder BH Establis hed Patient with Bobbi Colon [facility] 07/28/2019 Severe recurrent major depre 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 features BH Established Patient with Bobbi Colon [facility] 07/28/2019 AUDIT alcohol use disorders identification test was six 07/28/2019 Medical New Patient with Candace Grossman [facility] 07/28/2019 Diabetes Risk Test Score was 0 score 07/28/2019 Medical New Patient with Candace Grossman [facility] 07/28/2019 ZAN-7 score was 21 07/28/2019 Medical Ne w Patient with Candace Grossman [facility] 07/28/2019 PHQ-9: total score was 21 07/28/2019 Med ical New Patient with Candace Grossman [employer] 07/28/2019 Z68.22 - Body mass index (BM I) 22.0-22.9 adult Medical New Patient with Candace Grossman [facility] 07/28/2019 Instructions Instructions not supported for this [...] section and content) DATE CREATED AUTHOR 03/26/2018 [facility] DATE CREATED AUTHOR AUTHOR'S ORGANIZ ATION 05/07/2020 [facility] DATE CREATED AUTHOR AUTHOR'S ORGANIZ ATION 02/10/2023 [facility] DATE CREATED AUTHOR AUTHOR'S ORGANIZ ATION 03/28/2023 [facility] DATE CREATED AUTHOR AUTHOR'S ORGANIZ ATION 12/18/2023 [facility] DATE CREATED AUTHOR AUTHOR'S ORGANIZ ATION 01/14/2024 [facility] DATE CREATED AUTHOR AUTHOR'S ORGANIZ ATION 01/27/2024 [facility] DATE CREATED AUTHOR AUTHOR'S ORGANIZ ATION 01/29/2024 [facility] DATE CREATED AUTHOR AUTHOR'S ORGANIZ ATION 01/30/2024 [facility] DATE CREATED AUTHOR AUTHOR'S ORGANIZ ATION 01/31/2024 [facility] Evaluations & Outcomes (unre cognized section and [...] Reason Onset Date Comments Incoming Call 10/29/2023 Reason Comments Routine Visit Reason Onset Date Comments Outgoing Call 11/12/2023 Reason Onset Date Comments Outgoing Call 12/07/2023 Reason Comments Appointment Reason Comments Consult Specialty Diagnoses / Procedures Referred By Kalina t Referred To Contact Diagnoses Malignant melanoma of skin (HCC) Procedures CONSULT TO MATERNAL MEDI OFFICE/OUTPATIENT [facility] 60 MINUTES Fransico Sharp MD [address] [place] [address] Referral ID Status Reason Start Date Expiration Date V isits Requested Visits Authorized [id number] Closed PCP Requested Referral Auto-Generated Referral 01/04/2024 01/03/2025 1 1 Reason Comments Scans Care Teams (unrecognized sec tion and content) Team Status: Inactive Member Role Status Dates Shayla Valle NP-C Attending Provider Active Team Status: Active Member Role Status Dates NON STAFF Primary Care Provider Active Team Status: Inactive Member Role Status Dates Karan Romero MD Attending Provider Active NON STAFF Primary Care Provider Active Inclusion Special Education Teacher Relationship Specialty Start Date End Date Freddie Delgado APRN-CNP PCP - General Nurse Practitioner 07/30/23 Inclusion Special Education Teacher Relationship Specialty Start Date End Date Freddie Delgado APRN-CNP PCP - General Nurse Practitioner 07/30/23 Inclusion Special Education Teacher Relationship Specialty Start Date End Date [facility] P[facility] - General Nurse Practitioner 07/30/23 Inclusion Special Education Teacher Relationship Specialty Start Date End Date Freddie [facility] PCP - General Nurse Practitioner 07/30/23 Inclusion Special Education Teacher Relationship Specialty Start Date End Date Freddie Delgado [facility] PCP - General Nurse Practitioner 07/30/23 Inclusion Special Education Teacher Relationship Specialty Start Date End Date [facility] P[facility] - General Nurse Practitioner 07/30/23 Inclusion Special Education Teacher Relationship Specialty Start Date End Date [facility] PCP - General Nurse Practitioner 07/30/23 Inclusion Special Education Teacher Relationship Specialty Start Date End Date Freddie Delgado [address] [place] [address] PCP - General Family Medicine 12/19/23 Inclusion Special Education Teacher Relationship Specialty Start Date End Date Freddie Delgado [address] [place] [address] PCP - General Family Medicine 12/19/23 Inclusion Special Education Teacher Relationship Specialty Start Date End Date Danny Freddie [address] [place] [address] PCP - General Family Medicine 12/19/23 Inclusion Special Education Teacher Relationship Specialty Start Date End Date DelgadoFreddie rea [address] [place] [address] PCP - General Family Medicine 12/19/23 Inclusion Special Education Teacher Relationship Specialty Start Date End Date Freddie Delgado [address] [place] [address] PCP - General Family Medicine 12/19/23 Inclusion Special Education Teacher Relationship Specialty Start Date End Date Freddie Delgado [address] [place] [address] PCP - General Family Medicine 12/19/23 Inclusion Special Education Teacher Relationship Specialty Start Date End Date Freddie Delgado [address] [place] [address] PCP - General Family Medicine 12/19/23 Inclusion Special Education Teacher Relationship Specialty Start Date End Date Freddie Delgado [address] [place] [address] PCP - General Family Medicine 12/19/23 Inclusion Special Education Teacher Relationship Specialty Start Date End Date Freddie Delgado [address] [place] [address] PCP - General Family Medicine 12/19/23 Inclusion Special Education Teacher Relationship Specialty Start Date End Date Freddie Delgado [address] [place] [address] PCP - General Family Medicine 12/19/23 Inclusion Special Education Teacher Relationship Specialty Start Date End Date Freddie Delgado [address] [place] [address] PCP - General Family Medicine 12/19/23 Inclusion Special Education Teacher Relationship Specialty Start Date End Date Freddie Delgado [address] [place] [address] PCP - General Family Medicine 12/19/23 Goals (unrecognized section and content) Goals may be documented in a n alternate section Source Comments (unrecognize d section and content) In the event this informatio n is protected by the Federal Confidentiality of Alcohol and Drug Abuse Patient Records regulations: The Federal rules restrict any use of the information to criminally investigate or prosecute any alcohol or drug abuse patient.[facility] the event this information is protected by the Federal Confidentiality of Alcohol and Drug Abuse Patient Records regulations: The Federal rules restrict any use of the information to criminally investigate or prosecute any alcohol or drug abuse patient.[facility] the event this information is protected by the Federal Confidentiality of Alcohol and Drug Abuse Patient Records regulations: The Federal rules restrict any use of the information to criminally investigate or prosecute any alcohol or drug abuse patient.[facility] the event this information is protected by the Federal Confidentiality of Alcohol and Drug Abuse Patient Records regulations: The Federal rules restrict any use of the information to criminally investigate or prosecute any alcohol or drug abuse patient.[facility] the event this information is protected by the Federal Confidentiality of Alcohol and Drug Abuse Patient Records regulations: The Federal rules restrict any use of the information to criminally investigate or prosecute any alcohol or drug abuse patient.[facility] the event this information is protected by the Federal Confidentiality of Alcohol and Drug Abuse Patient Records regulations: The Federal rules restrict any use of the information to criminally investigate or prosecute any alcohol or drug abuse patient.[facility] the event this information is protected by the Federal Confidentiality of Alcohol and Drug Abuse Patient Records regulations: The Federal rules restrict any use of the information to criminally investigate or prosecute any alcohol or drug abuse patient.[facility] the event this information is protected by the Federal Confidentiality of Alcohol and Drug Abuse Patient Records regulations: The Federal rules restrict any use of the information to criminally investigate or prosecute any alcohol or drug abuse patient.[facility] the event this information is protected by the Federal Confidentiality of Alcohol and Drug Abuse Patient Records regulations: The Federal rules restrict any use of the information to criminally investigate or prosecute any alcohol or drug abuse patient.[facility] the event this information is protected by the Federal Confidentiality of Alcohol and Drug Abuse Patient Records regulations: The Federal rules restrict any use of the information to criminally investigate or prosecute any alcohol or drug abuse patient.[facility] the event this information is protected by the Federal Confidentiality of Alcohol and Drug Abuse Patient Records regulations: The Federal rules restrict any use of the information to criminally investigate or prosecute any alcohol or drug abuse patient.[facility] the event this information is protected by the Federal Confidentiality of Alcohol and Drug Abuse Patient Records regulations: The Federal rules restrict any use of the information to criminally investigate or prosecute any alcohol or drug abuse patient.[facility] FOR RECORDS PERTAINING TO PATIENTS WHO ARE [...] BE BASED ON THE PRIMARY CLINICAL RECORDS. [facility]. provides no warranty or guarantee of the accuracy or completeness of information in this document.
--- NOTE | 2024-02-11 14:54 | US_ITS ---
[address] [address] Patient Name: CRISTIAN DONALDSON MRN: [id number] date: 1990 Sex: F Assigned Patient Location: [facility] Current Patient Location: Accession/Order Number: [id number] Exam Date: 02/11/2024 15:00 Report Date: 02/12/2024 07:27 At the request of: DAVIN GREEN Procedure: US OB BPP w non-stress EXAMINATION: US OB BPP w non-stress HISTORY: EXCESSIVE GROWTH AFFECTING O36.62X0 COMPARISON: No relevant comparison available. TECHNIQUE: Ultrasound biophysical profile was performed in the radiology department. BREATHING MOVEMENTS: 2.0 GROSS BODY MOVEMENTS: 2.0 TONE: 2.0 QUALITATIVE AMNIOTIC FLUID VOLUME: 2.0 PRESENTATION: CEPHALIC HEART RATE: 150.8 bpm bpm. AMNIOTIC FLUID VOLUME: 16.4 cm GESTATIONAL AGE: 32 weeks 4 days CONCLUSION: Total biophysical profile score 8.0. Electronically authenticated by: BOBBI SIMONS Date: 02/12/2024 07:27
--- NOTE | 2024-02-11 15:05 | US_ITS ---
[address] [address] Patient Name: CRISTIAN DONALDSON MRN: [id number] date: 1990 Sex: F Assigned Patient Location: [place] Current Patient Location: Accession/Order Number: [id number] Exam Date: 02/11/2024 15:00 Report Date: 02/12/2024 07:26 At the request of: DAVIN GREEN Procedure: US OB transvaginal EXAMINATION: US OB transvaginal, US OB placenta HISTORY: Low lying placenta COMPARISON: Ultrasound OB transvaginal 08/30/2023 FINDINGS: PLACENTA: Anterior, grade 1, with lower margin 3.0 cm from os. Contain several small venous lakes. CERVIX LENGTH: 4.0 cm, closed. HEART RATE: 151 bpm AMNIOTIC FLUID: 16.4 cm (normal range). OTHER: Cephalic presentation. GA: 32 weeks 4 days CLAUDETTE: 04/03/2024 US/US OB transvaginal IMPRESSION: 1. Single live intrauterine with anterior placenta which is not low-lying. Electronically authenticated by: BOBBI SIMONS Date: 02/12/2024 07:26
[2024-02-11 15:43] VITALS: BP 130/70; PULSE 94
--- NOTE | 2024-02-11 15:45 | US_ITS ---
[address] [address] Patient Name: CRISTIAN DONALDSON MRN: [id number] date: 1990 Sex: F Assigned Patient Location: [place] Current Patient Location: Accession/Order Number: [id number] Exam Date: 02/11/2024 15:45 Report Date: 02/12/2024 07:26 At the request of: DAVIN GREEN Procedure: US OB placenta EXAMINATION: US OB transvaginal, US OB placenta HISTORY: Low lying placenta COMPARISON: Ultrasound OB transvaginal 08/30/2023 FINDINGS: PLACENTA: Anterior, grade 1, with lower margin 3.0 cm from os. Contain several small venous lakes. CERVIX LENGTH: 4.0 cm, closed. HEART RATE: 151 bpm AMNIOTIC FLUID: 16.4 cm (normal range). OTHER: Cephalic presentation. GA: 32 weeks 4 days CLAUDETTE: 04/03/2024 US/US OB placenta IMPRESSION: 1. Single live intrauterine with anterior placenta which is not low-lying. Electronically authenticated by: BOBBI SIMONS Date: 02/12/2024 07:26
== END 2024-02-11 16:09 | disposition home or self-care (01) ==
LOC: US 07:16 → FBC 14:54
PROVIDERS: Visit Provider Obstetrics & Gynecology
DX: O36.63X0 Maternal care for excessive fetal growth, third trimester, not applicable or unspecified (principal); Z3A.32 32 weeks gestation of pregnancy
CPT/HCPCS: 76815; 76817; 76818

== ENCOUNTER 2024-02-14 07:03 | Outpatient (OUT) | payer MEDICAID, SELFPAY ==
--- OUTSIDE RECORDS SUMMARY | 2024-02-14 07:07 | XMS_ITS | CCD ---
Author Organization [facility] Care Team Providers Care [place] Al[place] Attendant Name Role Phone Gehlot, Upender Unavailable Unavailable Gehlot, Upender Unavailable Unavailable EMPERATRIZ CERNA Unavailable Unavailable Sally Morejon Primary Care Provider [phone] [phone] Primary Care Provider UnavailCANDACE Dubon Referring Unavailable Sally Morejon Primary Care Provider Sally Morejon CNP Primary Care Provider [phone] Shayla Valle Unavailable JUMANA Valle Attending Provider AICHHOLZ, SALAD BAR CLERK VITO Admitting Unavailable AICHHOLZ, SALAD BAR CLERK VITO Attending Unavailable AICHHOLZ, SALAD BAR CLERK VITO Primary Care Unavailable AICHHOLZ, SALAD BAR CLERK VITO Consulting Unavailable NORMA ., DR JIN Admitting Unavailable NORMA ., DR JIN Attending Unavailable AICHHOLZ, SALAD BAR CLERK VITO Primary Care Unavailable NORMA ., DR JIN Consulting Unavailable RONAK, DR BOBBI Bianchi Consulting Unavailable NORMA ., DR JIN Admitting Unavailable NORMA ., DR JIN Attending Unavailable AICHHOLZ, SALAD BAR CLERK VITO Primary Care Unavailable NORMA ., DR JIN Consulting Unavailable RONAK, DR BOBBI Bianchi Consulting Unavailable NORMA ., DR JIN Admitting Unavailable NORMA ., DR JIN Attending Unavailable AICHHOLZ, SALAD BAR CLERK VITO Primary Care Unavailable ONRMA ., DR JIN Consulting Unavailable AICHHOLZ, SALAD BAR CLERK VITO Admitting Unavailable AICHHOLZ, SALAD BAR CLERK VITO Attending Unavailable AICHHOLZ, SALAD BAR CLERK VITO Primary Care Unavailable NORMA ., DR JIN Admitting Unavailable NORMA ., DR JIN Attending Unavailable AICHHOLZ, SALAD BAR CLERK VITO Primary Care Unavailable NORMA ., DR JIN Consulting Unavailable NORMA ., DR JIN Admitting Unavailable NORMA ., DR JIN Attending Unavailable AICHHOLZ, SALAD BAR CLERK VITO Primary Care Unavailable NORMA ., DR JIN Consulting Unavailable AGUBOSIM, WADE Consulting Unavailable SOFI XIAO Consulting Unavailable NORMA ., DR JIN Admitting Unavailable NORMA ., DR JIN Attending Unavailable AICHHOLZ, SALAD BAR CLERK VITO Primary Care Unavailable NORMA ., DR JIN Consulting Unavailable AICHHOLZ, SALAD BAR CLERK VITO Admitting Unavailable AICHHOLZ, SALAD BAR CLERK VITO Attending Unavailable AICHHOLZ, SALAD BAR CLERK VITO Primary Care Unavailable WEST, DR JO-ANN Nicolas Consulting Unavailable AICHHOLZ, SALAD BAR CLERK VITO Consulting Unavailable Yoel Jarrett Unavailable MD Karan Romero Attending Provider NON STAFF Primary Care Provider Unavailabl e NON STAFF Primary Care Unavailable Karan Romero Attending Unavailabl Karan Osuna Admitting Unavailabl e Shayla Valle Attending Unavailable Shayla Valle Admitting Unavailable Delgado SYNTHETIC STAPLE EXTRUDER-SALAD BAR CLERK, Freddie Primary Care Provider Unavailable Primary Care Provider Unavailabl e DELGADO, FREDDIE Attending Unavailable DELGADO, FREDDIE Referring Unavailable DELGADO, FREDDIE Primary Care Unavailable ROJAS, FIDENCIO Attending Unavailable DELGADO, FREDDIE Referring Unavailable DELGADO, FREDDIE Primary Care Unavailable Delgado, Freddie Primary Care Provider [phone] GURJIT ROBIN Attending Unavailable DELGADO, FREDDIE Referring Unavailable DELGADO, FREDDIE Primary Care Unavailable Delgado, Freddie Primary Care Provider ROJAS, FIDENCIO Attending Unavailable NORMA, ELIAZAR R Referring Unavailable DELGADO, FREDDIE Primary Care Unavailable ADILENE CESPEDES Attending Unavailable NORMA, ELIAZAR R Referring Unavailable DELGADO, FREDDIE Primary Care Unavailable NORMA, ELIAZAR R Referring Unavailable DELGADO, FREDDIE Primary Care Unavailable CANDACE MORAN Admitting Unavailable CANDACE MORAN Attending Unavailable DELGADO, FREDDIE Primary Care Unavailable ROJAS, FIDENCIO Referring Unavailable DELGADO, FREDDIE Primary Care Unavailable USMAN GOLDBERG Attending Unavailable RUST, [facility] Primary Care Unavailable FRANSICO SHARP Attending Unavailable RUST, [facility] Primary Care Unavailable DELGADO, [facility] Primary Care Unavailable FRANSICO SHARP Referring Unavailable ANA PEOPLES Attending Unavailab DELGADO, [facility] Primary Care Unavailable ANA PEOPLES Attending Unavailab sherri CASTANEDA, ELIAZAR Attending Unavailable DIONNE XIAO Attending Unavailable NORMA, ELIAZAR Attending Unavailable NORMA, ELIAZAR Attending Unavailable DAMEONDIONNE CORBIN Attending Unavailable NORMA, ELIAZAR Attending Unavailable Allergies Allergy Classification Reported Allergen(s) Allergy Type Date of Onset Reaction(s) Facility (13 sources) Penicillins (Antibiotic) Allergy to substance 9 [facility] Work Phone: (8 sources) [facility] Drug Allergy 0 [facility] Work Phone: (6 sources) Penicillin G Drug Allergy 3 [facility] Work Phone: (1 source) Penicillin Drug Allergy [facility] Repository (6 sources) Penicillins; Translations: [PENICILLINS] Drug allergy (disorder) [address] [facility] Repository (20 sources) Penicillins Propensity to adverse reactions to drug 2 Other (See Comments), Unknown [facility] (3 sources) Penicillins Drug Allergy 2 Unknown [facility] Healthcare Medications Current Medications Medication Drug Class(es) Dates Sig (Normalized) Sig (Original) [id number] 200 actuat albuterol 0.09 mg/actuat metered dose [...] Take 400 mg by mouth . nystatin [id number] unt/ml oral suspension (1 source) Polyene Antifungal Start: 05-29-2023 take 5 mL by mouth three times daily Nystatin 134998 UNIT/ML 5 ml Mouth/Throat 3 times a [...] 16, 2023 12:00am omeprazole magne sium (ACID LOOM FIXER, OMEPRAZOLE, ORAL) Take by mouth as directed. [...] above: Take by mouth as dir ected. mfjnmooq23-okvu-ekawa- omega3 29-1-400 mg combo pack,tablet & DR alex (9 sources) guhmlpll81-kjeh- folic -omega3 29-1-400 mg combo pack,tablet & [...] Virus Nucleoside Analog DNA Polymerase Inhibitor Start: 03-05-2023 valACYclovir (VALTREX) 500 mg tablet 24 hr [...] mg/ml oral solution (4 sources) Phenothiazine, Uncompetitive C-tltuan-E-aspartat e Receptor Antagonist, Sigma-1 Agonist Start: 01-08-2020 [...] Onset: 05-26-2022 Chronic Other conditions (1 source) affected by other morphological and functional abnormalities of placenta; Translations: [[place] affected by other morphological and functional abnormalities [...] width (RBC) [Ratio] 13.6 % Normal 11.5-15.0 [facility] Comment on above: Performed By: #### C JEAN, 2532-0, CBC, 3084-1 #### [facility] ([id number]) [address] [place] [address] 56814 Hematocrit (Bld) [Volume fraction] 29.4 % Low 35-47 [facility] Comment on above: Performed By: #### Adri PENA, 2532-0, CBC, 3084-1 #### [facility] ([id number]) [address] [place] [address] 93141 Hemoglobin (Bld) [Mass/Vol] 10.4 g/dL Low 11.7-15.5 [facility] Comment on above: Performed By: #### Adri PENA, 2532-0, CBC, 3084-1 #### [facility] ([id number]) [address] [place] [address] 61013 MCH (RBC) [Entitic mass] 31.0 pg Normal 27-34 [facility] Comment on above: Performed By: #### C JEAN, 2532-0, CBC, 3084-1 #### [facility] ([id number]) [address] [place] [address] 18680 MCHC (RBC) [Mass/Vol] 35.3 g/dL Normal 32-36 [facility] Comment on above: Performed By: #### Adri PENA, 2532-0, CBC, 3084-1 #### [facility] ([id number]) [address] [place] [address] 66477 MCV (RBC) [Entitic vol] 88 fL Normal 80-100 [facility] Comment on above: Performed By: #### C MP, 2532-0, CBC, 3084-1 #### [facility] ([id number]) [address] [place] [address] 16510 Platelet mean volume (Bld) [Entitic vol] 8.1 fL Normal 7-12 [facility] Comment on above: Performed By: #### C JEAN, 2532-0, CBC, 3084-1 #### [facility] ([id number]) [address] [place] [address] 28480 Platelets (Bld) [#/Vol] 205 10*3/uL Normal 150-450 [facility] Comment on above: Performed By: #### C JEAN, 253-0, CBC, 308-1 #### [facility] ([id number]) [address] [place] [address] 71837 RBC COUNT 3.34 X10E12/L Low 3.80-5.20 [facility] Comment on above: Performed By: #### C JEAN, 253-0, CBC, 3084-1 #### [facility] ([id number]) [address] [place] [address] 44785 WBC (Bld) [#/Vol] 8.2 10*3/uL Normal 4.0-11.0 [facility] Comment on above: Performed By: #### C JEAN, 2532-0, CBC, 3084-1 #### [facility] ([id number]) [address] [place] [address] 40371 COMPREHENSIVE METABOLIC PANE Joel 01-29-2024 Albumin [Mass/Vol] 2.8 g/dL Low 3.2-5.3 [facility] Comment on above: Performed By: #### C JEAN, 2532-0, CBC, 3084-1 #### [facility] ([id number]) [address] [place] [address] 43849 ALP [Catalytic activity/Vol] 103 U/L Normal 39-130 [facility] Comment on above: Performed By: #### C JEAN, 253-0, CBC, 3084-1 #### [facility] ([id number]) [address] [place] [address] 13084 ALT [Catalytic activity/Vol] 16 U/L Normal 0-31 [facility] Comment on above: Performed By: #### C JEAN, 2531-0, CBC, 308-1 #### [facility] ([id number]) [address] [place] [address] 96964 Anion gap [Moles/Vol] 9 mmol/L Normal 5-15 [facility] Comment on above: Performed By: #### C JEAN, 2531-0, CBC, 3084- #### [facility] ([id number]) [address] [place] [address] 56341 AST [Catalytic activity/Vol] 18 U/L Normal 0-41 [facility] Comment on above: Performed By: #### C JEAN, 2531-0, CBC, 3084-1 #### [facility] ([id number]) [address] [place] [address] 15702 Bilirubin [Mass/Vol] 0.3 mg/dL Normal 0.3-1.2 [facility] Comment on above: Performed By: #### C JEAN, 253-0, CBC, 3084-1 #### [facility] ([id number]) [address] [place] [address] 69792 Calcium [Mass/Vol] 9.2 mg/dL Normal 8.5-10.5 [facility] Comment on above: Performed By: #### C JEAN, 253-0, CBC, 3084-1 #### [facility] ([id number]) [address] [place] [address] 23518 Chloride [Moles/Vol] 105 mmol/L Normal 98-109 [facility] Comment on above: Performed By: #### C JEAN, 2532-0, CBC, 3083-1 #### [facility] ([id number]) [address] [place] [address] 11989 CO2 [Moles/Vol] 22 mmol/L Normal 22-32 [facility] Comment on above: Performed By: #### C JEAN, 2532-0, CBC, 3083- #### [facility] ([id number]) [address] [place] [address] 03689 Creatinine [Mass/Vol] 0.51 mg/dL Normal 0.40-1.00 [facility] Comment on above: Result Comment: METH OD TRACEABLE TO IDMS STANDARD Performed By: #### C JEAN, 2531-0, CBC, 3083- #### [facility] ([id number]) [address] [place] [address] 65984 eGFR (CKD-EPI) NON-RACE DEPENDENT >90 Normal >59 [facility] Comment on above: Result Comment: Reported eGFR is based on the CKD-EPI 2020 equation that does not use a race coefficient. Performed By: #### C JEAN, 253-0, CBC, 3083- #### [facility] ([id number]) [address] [place] [address] 94267 Glucose [Mass/Vol] 96 mg/dL Normal 65-99 [facility] Comment on above: Performed By: #### C JEAN, 253-0, CBC, 3083- #### [facility] ([id number]) [address] [place] [address] 84671 Potassium [Moles/Vol] 4.1 mmol/L Normal 3.5-5.0 [facility] Comment on above: Performed By: #### C JEAN, 2532-0, CBC, 3084-1 #### [facility] ([id number]) [address] [place] [address] 27983 Protein [Mass/Vol] 6.5 g/dL Normal 6.0-8.0 [facility] Comment on above: Performed By: #### C JEAN, 2532-0, CBC, 3084-1 #### [facility] ([id number]) [address] [place] [address] 45897 Sodium [Moles/Vol] 136 mmol/L Normal 134-146 [facility] Comment on above: Performed By: #### C JEAN, 253-0, CBC, 3084-1 #### [facility] ([id number]) [address] [place] [address] 77476 Urea nitrogen [Mass/Vol] 5 mg/dL Normal 5-23 [facility] Comment on above: Performed By: #### C JEAN, 253-0, CBC, 3084-1 #### [facility] ([id number]) [address] [place] [address] [place] [address] LDH [Catalytic activity/Vol] on 01-29-2024 LDH 128 U/L Normal 100-235 [facility] Comment on above: Performed By: #### C JEAN, 253-0, CBC, 3084-1 #### [facility] ([id number]) [address] [place] [address] 91835 PROTEIN CREAT RATIOon 2023 RANDOM URINE PROTEIN 30 mg/L Normal <120 [facility] Comment on above: Performed By: #### U PCR #### [facility] ([id number]) [address] [place] [address] 58254 U/PRO/FRONT DESK OFFICER RATIO CALC 0.12 Normal <0.2 [facility] Comment on above: Result Comment: Neph rotic Syndrome is associated with ratios >3.5 Performed By: #### U PCR #### [facility] ([id number]) [address] [place] [address] 95021 URINE CREATININE,RDM 25.84 mg/dL Normal [facility] Comment on above: Performed By: #### U PCR #### [facility] ([id number]) [address] [place] [address] 55935 URIC ACIDon 01-29-2024 Urate [Mass/Vol] 4.1 mg/dL Normal 2.6-7.2 [facility] Comment on above: Performed By: #### C MP, 2532-0, CBC, 3084-1 #### [facility] ([id number]) [address] [place] [address] 57279 CNPNon 01-25-2024 CNPN Telephone (PLASMN) VY MCKEON ([id number]) 1990 F Date Time Provider Department 01/25/24 [...] mg by mouth. - omeprazole magnesium (ACID LOOM FIXER, OMEPRAZOLE, ORAL) Take by mouth as directed. [...] Encounter Status:Closed [facility]LENE[facility] VY MCKEON ([id number]) 1990 F Date Time Provider Department 01/22/24 BRANDON CHURCHILL During your visit today, we recorded the following information about you: Brandon Churchill RN 01/22/2024 1:03 PM Signed Brandon Churchill RN 01/23/2024 3:55 PM Signed Pt calls regarding CT scans. Please place orders. Thanks! Brandon BRITNEY Churchill Vivek, MD 01/23/2024 4:28 PM Signed We [...] MD 1 hour ago (8:13 AM) MACK Pr, That is fine obstetrically if you are [...] RN - Fully Assessed Reason for Visit: Scans [867] Primary Visit Diagnosis:Malignant melanoma of skin (HCC) [C43.9] Order(s):CT NECK SOFT TISSUE W IVCON [[id number]] Order #: [id number] FUTURE [] iv contrast (will be provided [...] 1 EachRfl: 0 CT CHEST W IVCON [[id number]] Order #: [id number] FUTURE [] iv contrast (will be provided [...] EachRfl: 0 LACTATE DEHYDROGENASE [SQLD6] Order #: [id number] FUTURE COMPLETE BLOOD COUNT AND DIFFERENTIAL [SQCBCDIF] Order #: [id number] FUTURE COMPREHENSIVE METABOLIC PANEL [SQCMP] Order #: [id number] FUTURE Prescriptions as of 01/30/2024 - diphenhydramine [...] mg by mouth. - omeprazole magnesium (ACID LOOM FIXER, OMEPRAZOLE, ORAL) Take by mouth as directed. [...] In Off (more content not included)... [facility] ([id number]) 1990 F Date Time Provider Department 01/22/24 ANA PEOPLES [id number] During your visit today, we recorded the following information about you: Ana Peoples MD 01/22/2024 3:44 PM Signed 01/22/2024 [facility] Pt called and identified ~ 12:30 pm. [...] by: Reji Manning, RN - Fully Assessed Prescriptions as of 01/22/2024 [...] mg by mouth. - omeprazole magnesium (ACID LOOM FIXER, OMEPRAZOLE, ORAL) Take by mouth as directed. [...] Status:Closed by ANA PEOPLES on 01/22/24 Normal [facility] Examination level ultrasound on 01-21-2024 Indication anatomy [...] 9 oz EFW by: Hadlock (HC-AC-FL) Extended Rewind Operator 3.1 mm CM 7.6 mm 70% Nicolaides [...] normal LVOT view: normal 3-vessel view: normal 2-avfmzs-fhnujiq view: normal Heart / Thorax Situs: situs [...] Read By: Ana Peoples MD MATERNAL MEDICINE [facility] Radiology Study observation (narrative) [facility] [place] 01-18-2024 KIERAN Telephone (OBGYF2) HALM,VY ([id number]) 1990 F Date Time Provider Department 01/18/24 [...] mg by mouth. - omeprazole magnesium (ACID LOOM FIXER, OMEPRAZOLE, ORAL) Take by mouth as directed. - PNV no.95/ferrous fum/folic ac ( ORAL) Take by mouth as directed. Problem List As Of Date: 01/18/2024 (None) Encounter Status:Closed by JOSE L CROWLEY on 01/18/24 [facility] [place] 01-10-2024 CNPN Telephone (OBGYF2) VY MCKEON ([id number]) 1990 F Date Time Provider Department 01/10/24 HISTORICAL OBGYF2 During your visit today, we recorded the following information about you: Rolo Parada 01/10/2024 9:19 AM Signed [facility] patient asking for [...] mg by mouth. - omeprazole magnesium (ACID LOOM FIXER, OMEPRAZOLE, ORAL) Take by mouth as directed. - PNV no.95/ferrous fum/folic ac ( ORAL) Take by mouth as directed. Problem List As Of Date: 01/10/2024 (None) Encounter Status:Closed by ROLO PARADA on 01/10/24 [facility] [place] 01-09-2024 CNPN Telephone (PLASMN) VY MCKEON ([id number]) 1990 F Date Time Provider Department 01/09/24 FRANSICO SHARP During your visit today, we recorded the following information about you: Fernanda Michael 01/09/2024 9:55 AM Signed Patient called that she is seeing Maternal Med, in her area and was questioning does she need to see one at the [facility]? She is asking for a call.. she is very nervous Surjit Griggs, RN 01/09/2024 12:42 PM Signed Reached out to patient. Instructions provided to see a maternal medicine specialist within the [facility] per Dr. Sharp. This nurse explained that [...] mg by mouth. - omeprazole magnesium (ACID LOOM FIXER, OMEPRAZOLE, ORAL) Take by mouth as directed. - PNV no.95/ferrous fum/folic ac ( ORAL) Take by mouth as directed. Problem List As Of Date: 01/09/2024 (None) Encounter Status:Closed by FERNANDA MICHAEL on 01/09/24 Normal [facility] CNOVSPon 01-04-2024 CNOVSP Visit (SP) Office (PLASCA) VY MCKEON ([id number]) 1990 F Date Time Provider Department 01/04/24 2:15 PM FRANSICO SHARP During your visit today, we recorded the following information about you: Temperature Pulse Respiration Blood pressure 97.1 degrees 94/minute 20/minute 148/83 Fransico Sharp MD 01/06/2024 9:42 AM Signed DATE: January 03, 2024 CC: New Melanoma Patient Referring Physician: Margarita Kim MD at [facility] in [place] HPI: Vy Mckeon is a 33 year [...] 400 mg by mouth. omeprazole magnesium (ACID LOOM FIXER, OMEPRAZOLE, ORAL) Take by mouth as directed. 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 The lesion measures 1 cm in diameter. Photos taken, see [facility] Get Images LABS: Pathology Report - EXTERNAL [...] taken and uploaded to chart today via [employer] - Pathology re-read to be obtained - Surgical plan is for resection of left upper lip melano (more content not included)... Normal [facility] CBC W Auto Differential pane l (Bld)on 12-26-2023 Basophils (Bld) [#/Vol] 0.03 10*3/uL Normal <0.11 [facility] Comment on above: Order Comment: Speci men Type: BLOOD SPECIMEN Ordering Facility: [facility] Address: [address] [place] [address] Performed By: #### 5 7021-8 #### [facility] CLIA [id number] [address] [place] [address] 07569 Basophils/100 WBC (Bld) 0.3 % Normal [facility] Comment on above: Order Comment: Speci men Type: BLOOD SPECIMEN Ordering Facility: [facility] Address: [address] [place] [address] Performed By: #### 5 7021-8 #### [facility] CLIA [id number] [address] [place] [address] 47750 Differential cell count method Nom (Bld) Auto Normal [facility] Comment on above: Order Comment: Speci men Type: BLOOD SPECIMEN Ordering Facility: [facility] Address: [address] [place] [address] Performed By: #### 5 7021-8 #### [facility] CLIA [id number] [address] [place] [address] 43789 Eosinophils (Bld) [#/Vol] 0.15 10*3/uL Normal <0.46 [facility] Comment on above: Order Comment: Speci men Type: BLOOD SPECIMEN Ordering Facility: [facility] Address: [address] [place] [address] Performed By: #### 5 7021-8 #### [facility] CLIA [id number] [address] [place] [address] 40813 Eosinophils/100 WBC (Bld) 1.5 % Normal [facility] Comment on above: Order Comment: Speci men Type: BLOOD SPECIMEN Ordering Facility: [facility] Address: [address] [place] [address] Performed By: #### 5 7021-8 #### [facility] CLIA [id number] [address] [place] [address] 96555 Erythrocyte distribution width (RBC) [Ratio] 13.5 % Normal 11.5-15.0 [facility] Comment on above: Order Comment: Speci men Type: BLOOD SPECIMEN Ordering Facility: [facility] Address: [address] [place] [address] Performed By: #### 5 7021-8 #### [facility] CLIA [id number] [address] [place] [address] 34366 Hematocrit (Bld) [Volume fraction] 35.5 % Low 36.0-46.0 [facility] Comment on above: Order Comment: Speci men Type: BLOOD SPECIMEN Ordering Facility: [facility] Address: [address] [place] [address] Performed By: #### 5 7021-8 #### [facility] CLIA [id number] [address] [place] [address] 56092 Hemoglobin (Bld) [Mass/Vol] 12.0 g/dL Normal 11.5-15.5 [facility] Comment on above: Order Comment: Speci men Type: BLOOD SPECIMEN Ordering Facility: [facility] Address: [address] [place] [address]10 Performed By: #### 5 7021-8 #### [facility] CLIA [id number] [address] [place] [address] 40470 Immature granulocytes (Bld) [#/Vol] 0.06 10*3/uL Normal <0.10 [facility] Comment on above: Order Comment: Speci men Type: BLOOD SPECIMEN Ordering Facility: [facility] Address: [address] [place] [address] Performed By: #### 5 7021-8 #### [facility] CLIA [id number] [address] [place] [address] Immature granulocytes/100 WBC (Bld) 0.6 % Normal [facility] Comment on above: Order Comment: Speci men Type: BLOOD SPECIMEN Ordering Facility: [facility] Address: [address] [place] [address] Performed By: #### 5 7021-8 #### [facility] CLIA [id number] [address] [place] [address] Lymphocytes (Bld) [#/Vol] 1.46 10*3/uL Normal 1.00-4.00 [facility] Comment on above: Order Comment: Speci men Type: BLOOD SPECIMEN Ordering Facility: [facility] Address: [address] [place] [address] Performed By: #### 5 7021-8 #### [facility] CLIA [id number] [address] [place] [address] 81407 Lymphocytes/100 WBC (Bld) 15.0 % Normal [facility] Comment on above: Order Comment: Speci men Type: BLOOD SPECIMEN Ordering Facility: [facility] Address: [address] [place] [address] Performed By: #### 5 7021-8 #### [facility] CLIA [id number] [address] [place] [address] MCH (RBC) [Entitic mass] 30.1 pg Normal 26.0-34.0 [facility] Comment on above: Order Comment: Speci men Type: BLOOD SPECIMEN Ordering Facility: [facility] Address: [address] [place] [address] Performed By: #### 5 7021-8 #### [facility] CLIA [id number] [address] [place] [address] MCHC (RBC) [Mass/Vol] 33.8 g/dL Normal 30.5-36.0 [facility] Comment on above: Order Comment: Speci men Type: BLOOD SPECIMEN Ordering Facility: [facility] Address: [address] [place] [address] Performed By: #### 5 7021-8 #### [facility] CLIA [id number] [address] [place] [address]8566 MCV (RBC) [Entitic vol] 89.0 fL Normal 80.0-100.0 [facility] Comment on above: Order Comment: Speci men Type: BLOOD SPECIMEN Ordering Facility: [facility] Address: [address] [place] [address] Performed By: #### 5 7021-8 #### [facility] CLIA [id number] [address] [place] [address] 6[address]47 Monocytes (Bld) [#/Vol] 0.50 10*3/uL Normal <0.87 [facility] Comment on above: Order Comment: Speci men Type: BLOOD SPECIMEN Ordering Facility: [facility] Address: [address] [place] [address] Performed By: #### 5 7021-8 #### [facility] CLIA [id number] [address] [place] [address] Monocytes/100 WBC (Bld) 5.1 % Normal [facility] Comment on above: Order Comment: Speci men Type: BLOOD SPECIMEN Ordering Facility: [facility] Address: [address] [place] [address] Performed By: #### 5 7021-8 #### [facility] CLIA [id number] [address] [place] [address]130 Neutrophils (Bld) [#/Vol] 7.52 10*3/uL High 1.45-7.50 [facility] Comment on above: Order Comment: Speci men Type: BLOOD SPECIMEN Ordering Facility: [facility] Address: [address] [place] [address] Performed By: #### 5 7021-8 #### [facility] CLIA [id number] [address] [place] [address] Neutrophils/100 WBC (Bld) 77.5 % Normal [facility] Comment on above: Order Comment: Speci men Type: BLOOD SPECIMEN Ordering Facility: [facility] Address: [address] [place] [address] Performed By: #### 5 7021-8 #### [facility] CLIA [id number] [address] [place] [address] Nucleated RBC (Bld) [#/Vol] 10*3/uL Normal <0.01 [facility] Comment on above: Order Comment: Speci men Type: BLOOD SPECIMEN Ordering Facility: [facility] Address: [address] [place] [address] Performed By: #### 5 7021-8 #### [facility] CLIA [id number] [address] [place] [address] Nucleated RBC/100 WBC (Bld) [Ratio] 0.0 /100 WBC Normal [facility] Comment on above: Order Comment: Speci men Type: BLOOD SPECIMEN Ordering Facility: [facility] Address: [address] [place] [address] Performed By: #### 5 7021-8 #### [facility] CLIA [id number] [address] [place] [address] 19152 Platelet mean volume (Bld) [Entitic vol] 10.1 fL Normal 9.0-12.7 [facility] Comment on above: Order Comment: Speci men Type: BLOOD SPECIMEN Ordering Facility: [facility] Address: [address] [place] [address] Performed By: #### 5 7021-8 #### [facility] CLIA [id number] [address] [place] [address] 67179 Platelets (Bld) [#/Vol] 224 10*3/uL Normal 150-400 [facility] Comment on above: Order Comment: Speci men Type: BLOOD SPECIMEN Ordering Facility: [facility] Address: [address] [place] [address] Performed By: #### 5 7021-8 #### [facility] CLIA [id number] [address] [place] [address] RBC (Bld) [#/Vol] 3.99 10*6/uL Normal 3.90-5.20 [facility] Comment on above: Order Comment: Speci men Type: BLOOD SPECIMEN Ordering Facility: [facility] Address: [address] [place], [place] [address] Performed By: #### 5 7021-8 #### [facility] CLIA [id number] [address] [place] [address] WBC (Bld) [#/Vol] 9.72 10*3/uL Normal 3.70-11.00 [facility] Comment on above: Order Comment: Speci men Type: BLOOD SPECIMEN Ordering Facility: [facility] Address: [address] [place], [place] [address] Performed By: #### 5 7021-8 #### [facility] CLIA [id number] [address] [place] [address] CNOVSPon 12-26-2023 [facility] Visit (SP) Office (HEMASA) VY MCKEON ([id number]) 1990 F Date Time Provider Department 12/26/23 3:30 PM USMAN GOLDBERG During your visit today, we recorded the following information about you: Temperature Pulse Respiration Blood pressure 97.3 degrees 87/minute 16/minute 134/74 Weight Height Last Period 86.1 kg 1.702 m 06/24/23 Usman Goldberg MD 12/27/2023 12:46 PM Signed NAME: Vy Mckeon CLINIC NO.: [id number] DATE OF SERVICE: December 26, 2023 (Krystal) [...] magnesium (ACID (more content not included)... Normal [facility] Comprehensive metabolic 2000 panelon 12-26-2023 Albumin [Mass/Vol] 3.9 g/dL Normal 3.9-4.9 [facility] Comment on above: Order Comment: Speci men Type: BLOOD SPECIMENOrdering Facility: [facility] Address: [address] [place] [address] Performed By: #### 2 4323-8, 0 ####[facility] [id number] [place] [address] ALP [Catalytic activity/Vol] 109 U/L Normal 34-123 [facility] Comment on above: Order Comment: Speci men Type: BLOOD SPECIMENOrdering Facility: [facility] Address: [address] [place] [address] Performed By: #### 2 4323-8, 2531-0 ####[facility] [id number] [place] [address] ALT [Catalytic activity/Vol] 26 U/L Normal 7-38 [facility] Comment on above: Order Comment: Speci men Type: BLOOD SPECIMENOrdering Facility: [facility] Address: [address] [place], [place] [address] Performed By: #### 2 4323-8, 2531-0 ####[facility]IA [id number] [place] [address] Anion gap [Moles/Vol] 10 mmol/L Normal 9-18 [facility] Comment on above: Order Comment: Speci men Type: BLOOD SPECIMENOrdering Facility: [facility] Address: [address] [place] [address] Performed By: #### 2 4323-8, 2531-0 ####[facility]IA [id number] [place] [address] AST [Catalytic activity/Vol] 26 U/L Normal 13-35 [facility] Comment on above: Order Comment: Speci men Type: BLOOD SPECIMENOrdering Facility: [facility] Address: [address] [place], [place] [address] Performed By: #### 2 4323-8, 2531-0 ####[facility] LABCLIA [id number] [place] [address] Bilirubin [Mass/Vol] 0.2 mg/dL Normal 0.2-1.3 [facility] Comment on above: Order Comment: Speci men Type: BLOOD SPECIMENOrdering Facility: [facility] Address: [address] [place] [address] Performed By: #### 2 4323-8, 2531-0 ####[facility] [id number] [place] [address] Calcium [Mass/Vol] 10.1 mg/dL Normal 8.5-10.2 [facility] Comment on above: Order Comment: Speci men Type: BLOOD SPECIMENOrdering Facility: [facility] Address: [address] [place], [place] [address] Performed By: #### 2 4323-8, 2531-0 ####[facility] [id number] [place] [address] Chloride [Moles/Vol] 103 mmol/L Normal 97-105 [facility] Comment on above: Order Comment: Speci men Type: BLOOD SPECIMENOrdering Facility: [facility] Address: [address] [place] [address] Performed By: #### 2 4323-8, 2531-0 ####[facility] [id number] [place] [address] CO2 [Moles/Vol] 23 mmol/L Normal 22-30 [facility] Comment on above: Order Comment: Speci men Type: BLOOD SPECIMENOrdering Facility: [facility] Address: [address] [place] [address] Performed By: #### 2 4323-8, 2531-0 ####[facility]CLIA [id number] [place] [address] Creatinine [Mass/Vol] 0.64 mg/dL Normal 0.58-0.96 [facility] Comment on above: Order Comment: Speci men Type: BLOOD SPECIMENOrdering Facility: [facility] Address: [address] [place] [address] Performed By: #### 2 4323-8, 2531-0 ####[facility]IA [id number] [place] [address] Creatinine and Glomerular filtration rate.predicted panel (S/P/Bld) 118 mL/min/1.73m??? Normal >=60 [facility] Comment on above: Order Comment: Speci men Type: BLOOD SPECIMENOrdering Facility: [facility] Address: [address] [place] [address] Result Comment: Araseli mated Glomerular Filtration Rate (eGFR) is calculated using the 2021 CKD-EPI creatinine equation. This equation utilizes serum creatinine, sex, and age as parameters. The creatinine assay has traceable calibration to isotope dilution-mass spectrometry. Refer to KDIGO guidelines for clinical interpretation. In patients with unstable renal function, e.g. those with acute kidney injury, the eGFR may not accurately reflect actual GFR. Performed By: #### 2 4323-8, 0 ####[facility]IA [id number] [place] [address] Glucose [Mass/Vol] 85 mg/dL Normal 74-99 [facility] Comment on above: Order Comment: Kavin childress Type: BLOOD SPECIMENOrdering Facility: [facility] Address: [address] [place], [place] [address] Result Comment: The [place] [employer] (ADA) [...] Care. 2016.39(Suppl 1). Performed By: #### 2 4328, ####[facility]IA [id number] [place] [address] Potassium [Moles/Vol] 4.1 mmol/L Normal 3.7-5.1 [facility] Comment on above: Order Comment: Kavin childress Type: BLOOD SPECIMENOrdering Facility: [facility] Address: [address] [place] [address] Performed By: #### 2 4323-8, 0 ####[facility]CLIA [id number] [place] [address] Protein [Mass/Vol] 7.3 g/dL Normal 6.3-8.0 [facility] Comment on above: Order Comment: Speci men Type: BLOOD SPECIMENOrdering Facility: [facility] Address: [address] [place] [address] Performed By: #### 2 4323-8, 2531-0 ####[facility]CLIA [id number] [place] [address] Sodium [Moles/Vol] 136 mmol/L Normal 136-144 [facility] Comment on above: Order Comment: Speci men Type: BLOOD SPECIMENOrdering Facility: [facility] Address: [address] [place] [address] Performed By: #### 2 4323-8, 0 ####[facility]CLIA [id number] [place] [address] Urea nitrogen [Mass/Vol] 6 mg/dL Low 7-21 [facility] Comment on above: Order Comment: Speci men Type: BLOOD SPECIMENOrdering Facility: [facility] Address: [address] [place] [address] Performed By: #### 2 4323-8, 0 ####[facility]CLIA [id number] [place] [address] [facility]20[facility] LDH [Catalytic activity/Vol] 190 U/L Normal 135-214 [facility] Comment on above: Order Comment: Speci men Type: BLOOD SPECIMENOrdering Facility: [facility] Address: [address] [place] [address] Result Comment: Hemo lysis present. The origin [...] indicated. Performed By: #### 2 4323-8, 2531-0 ####[facility]CLIA [id number] [place] [address] URETHRITIS/DISCHARGE PLUS VA GINITIS (HTRX)on 11-14-2023 ATOPOBIUM VAGINAE 19.497 Abnormal [facility] ATOPOBIUM VAGINAE Detected Abnormal [facility] BVAB 2,3 (BACTERIAL VAGINOSIS ASSOCIATED BACTERIA 2, 3); MOBILUNCUS SPP 15.096 Abnormal [facility] BVAB 2,3 (BACTERIAL VAGINOSIS ASSOCIATED BACTERIA 2, 3); MOBILUNCUS SPP Detected Abnormal [facility] DIANE ALBICANS, PARAPSILOSIS, TROPICALIS 0 [facility] DIANE ALBICANS, PARAPSILOSIS, TROPICALIS Not detected [facility] DIANE GLABRATA 0 [facility] GLAB[facility]ATA Not detected [facility] DIANE KRUSEI 0 [facility] hcare DIANE KRUSEI Not detected [facility] CHLAMYDIA TRACHOMATIS 0 [facility] CHLAMYDIA TRACHOMATIS Not detected [facility] DFR (A1, A5), SUL (1,2) 0 PPM [facility] DFR (A1, A5), SUL (1,2) Not detected [facility] ERMB, C; MEFA 14.773 Abnormal PPM [facility] ERMB, C; MEFA Detected Abnormal [facility] GARDNERELLA VAGINALIS 0 [facility] GARDNERELLA VAGINALIS Not detected [facility] Interpretation and review of laboratory results Abnormal [facility] re MEGASPHAERA (TYPES 1, 2) 0 [facility] MEGASPHAERA (TYPES 1, 2) Not detected [facility] MYCOPLASMA GENITALIUM 0 [facility] MYCOPLASMA GENITALIUM Not detected [facility] NEISSERIA GONORRHOEAE 0 [facility] NEISSERIA GONORRHOEAE Not detected [facility] TET B, TET M 18.414 Abnormal [facility] TET B, TET M Detected [facility]normal [facility] are TRICHOMONAS VAGINALIS 0 [facility] TRICHOMONAS VAGINALIS Not detected [facility] Unlisted Lab Teston 11-13-19 24 Unlisted lab test see scanned report [facility] Urinalysis macro (dipstick) panel (U)on 11-12-2023 Bilirubin, UA Negative Negative - 4(70) +++ mg/dL [facility] Blood, UA Negative Negative - 50 Manny/mcL [facility] Clarity, UA Clear [facility] re Color, UA Yellow [facility] Glucose, UA Negative Negative - 1999(110) ++++ mg/dL [facility] Interpretation and review of laboratory results Normal [facility] re Ketones, UA Negative Negative - 160(16) ++++ mg/dL [facility] Leukocytes, UA Negative Negative - 500+++ Luli/mcL [facility] Nitrite, UA Negative Negative - Positive [facility] pH, UA 6.0 5 - 9 [facility] Protein, UA Negative Negative - 1999(20) ++++ mg/dL [facility] Spec Grav, UA 1.020 1 - 1.03 [facility] Urobilinogen, UA 1.0 0.2 - 12 mg/dL [facility] HCG ( test) IA.loisi d Ql (U)Ordered By: Karan Romero on 03-19-2023 HCG ( test) Ql (U) Negative [facility] HCG,Urineon 03-19-2023 Beta HCG ( test) Ql (U) Negative Normal [facility] Comment on above: Result Comment: PERF ORMED BY: [place] [address] PATHOLOGIST [employer]ODUCT MARKETER JOYCE ACHARYA M.D. Performed By: #### U HCG #### [address] Joel 03-19-2023 L - -------- Specimen: [id number] Received: 03/19/23 Status: HEMANT [place] Num: [id number] Spec Type: Surgical Subm Dr: Karan Romero MD Tissues: A Duodenum - Biopsy (DUODENAL BX) B Esophagus Biopsy (ESOPHAGEAL) Procedures: HE/4, Gross/Micro L4/2 -------- Age/ Patient Sex Location Account Attending Physician -------- Vy Mckeon 32/F [id number] Karan Romero MD -------- SPEC NUM: [id number] RECD: 03/19/23 STATUS: HEMANT [place] NUM: [id number] ASAD: 03/19/[address]: Karan Romero MD ENTERED: 03/19/23 [facility] DR: MERE TYPE: Surgical DEPT: S [...] in one cassette labeled B1. -------- Specimen: [id number] Received: 03/19/23 Status: HEMANT Johnston Num: [id number] Spec Type: Surgical Subm Dr: Karan Romero MD Tissues: A Duodenum - Biopsy (DUODENAL BX) B Esophagus Biopsy (ESOPHAGEAL) Procedures: HE/4, Gross/Micro L4/2 -------- Patient: Vy Mckeon [id number] (Continued) -------- Specimen: [id number] Received: 03/19/23 (Continued) Signed (signature on file) Doris Reynolds MD 03/20/23 1117 -------- Specimen: [id number] Received: 03/19/23 Status: HEMANT [place] Num: [id number] Spec Type: Surgical Subm Dr: Karan Romero MD Tissues: A Duodenum - Biopsy (DUODENAL BX) B Esophagus Biopsy (ESOPHAGEAL) Procedures: HE/4, Gross/Micro L4/2 -------- Patient: JossjuvenalVy [id number] (Continued) -------- Specimen: [id number] Received: 03/19/23 (Continued) Microscopic Description A. Two with H E stained material have been examined. The microscopic findings support the above pathologic diagnosis. B. Two with H E stained material have been examined. The microscopic findings support the above pathologic diagnosis. CPT Codes 07222 x 2 -------- -------- Specimen: [id number] Received: 03/19/23 Status: HEMANT Johnston Num: [id number] Spec Type: Surgical Subm Dr: Karan Romero MD Tissues: A Duodenum - Biopsy (DUODENAL BX) B Esophagus Biopsy (ESOPHAGEAL) Procedures: HE/Maday, Gross/Micro L4/2 -------- Patient: Vy Mckeon [id number] (Continued) -------- Signed (signature on file) Doris Reynolds MD 03/20/[address] [facility] CBC AUTO DIFFon 02-09-2023 BASO # 0.0 103/ul Normal 0.0-0.1 [facility] Comment on above: Performed By: #### C ####[facility] [address] [place], [place] [address]Dr. Zafar Branham Basophils/100 WBC (Bld) 0.3 % Normal 0.2-2.0 [facility] Comment on above: Performed By: #### C BC ####[facility] [address] [place] [address]Dr. Zafar Branham EO # 0.2 103/ul Normal 0.0-0.7 [facility] Comment on above: Performed By: #### C BC ####[facility] [address] [place] [address]Dr. Zafar Branham Eosinophils/100 WBC (Bld) 1.7 % Normal 0.9-7.0 [facility] Comment on above: Performed By: #### C BC ####[facility] [address] [place] [address]Dr. Zafar Branham Erythrocyte distribution width (RBC) [Ratio] 13.9 % Normal 11.0-15.0 [facility] Comment on above: Performed By: #### C BC ####[facility] [address] [place] [address]Dr. Zafar Branham Hematocrit (Bld) [Volume fraction] 41.0 % Normal 36.0-48.0 [facility] Comment on above: Performed By: #### C BC ####[facility] [address] [place] [address]Dr. Zafar Branham Hemoglobin (Bld) [Mass/Vol] 13.4 g/dL Normal 12.0-16.0 [facility] Comment on above: Performed By: #### C BC ####[facility] [address] [place] [address]Dr. Zafar Branham IG # 0.03 10e3/ul Normal 0.00-0.03 [facility] Comment on above: Performed By: #### C BC ####[facility] [address] [place] [address]Dr. Zafar Branham IG % 0.3 % Normal 0.0-0.5 [facility] Comment on above: Performed By: #### C BC ####[facility] [address] [place] [address]Dr. Zafar Yonas LYMPH # 1.4 103/ul Normal 1.2-3.8 [facility] Comment on above: Performed By: #### C BC ####[facility] [address] [place] [address]Dr. Kathytere Branham Lymphocytes/100 WBC (Bld) 14.8 % Critically low 20.5-60.0 [facility] Comment on above: Performed By: #### C BC ####[facility] [address] [place] [address]Dr. Kathytere Branham MANUAL DIFF REQ NO Normal [facility] Comment on above: Performed By: #### C BC ####[facility] [address] [place] [address]Dr. Zafar Yonas MCH (RBC) [Entitic mass] 28.8 pg Normal 26.7-34.0 [facility] Comment on above: Performed By: #### C BC ####[facility] [address] [place], [place] [address]Dr. Zafar Yonas MCHC (RBC) [Mass/Vol] 32.7 g/dL Normal 29.9-35.2 [facility] Comment on above: Performed By: #### C BC ####[facility] [address] [place] [address]Dr. Zafar Branham MCV (RBC) [Entitic vol] 88.0 fL Normal 81.0-99.0 [facility] Comment on above: Performed By: #### C BC ####[facility] [address] [place] [address]Dr. Zafar Branham MONO # 0.4 103/ul Normal 0.3-0.8 [facility] Comment on above: Performed By: #### C BC ####[facility] [address] [place], [place] [address]Dr. Zafar Branham Monocytes/100 WBC (Bld) 3.9 % Normal 1.7-12.0 [facility] Comment on above: Performed By: #### C BC ####[facility] [address] [place] [address]Dr. Zafar Branham NEUT # 7.2 103/ul Critically high 1.4-6.5 [facility] Comment on above: Performed By: #### C BC ####[facility] [address] [place] [address]Dr. Zafar Branham Neutrophils/100 WBC (Bld) 79.0 % Critically high 43.0-75.0 [facility] Comment on above: Performed By: #### C BC ####[facility] [address] [place] [address]Dr. Zafar Branham Platelet mean volume (Bld) [Entitic vol] 10.7 fL Normal 9.5-13.5 [facility] Comment on above: Performed By: #### C BC ####[facility] [address] [place], [place] [address]Dr. Zafar Branham PLT 353 103/ul Normal 150-450 [facility] Comment on above: Performed By: #### C BC ####[facility] [address] [place], [place] [address]Dr. Zafar Branham RBC 4.66 106/ul Normal 4.20-5.40 [facility] Comment on above: Performed By: #### C BC ####[facility] [address] [place], [place] [address]Dr. Zafar Branham WBC 9.2 103/ul Normal 4.0-11.0 [facility] Comment on above: Performed By: #### C BC ####[facility] [address] [place], [place] [address]Dr. Zafar Branham CRPon 02-09-2023 CRP 1.0 mg/dL Normal <=1.0 [facility] Comment on above: Performed By: #### C RP, CMP, TSH, LIPID ####[facility] [address] [place] [address]Dr. Zafar Branham FREE T4on 02-09-2023 Free T4 [Mass/Vol] 1.01 ng/dL Normal 0.76-1.46 [facility] Comment on above: Performed By: #### F T4 #### [facility] [address] [place], [place] [address] Dr. Zafar Branham LIPID PROFILEon 02-09-2023 CHOL-HDL RATIO NORM SEE BELOW Normal [facility] Comment on above: Result Comment: 3.3 - 4.4 LOW RISK 4.4 - 7.1 AVERAGE RISK 7.1 - 11.0 MODERATE RISK >11.0 HIGH RISK Performed By: #### C RP, CMP, TSH, LIPID ####[facility] [address] [place] [address]Dr. Kathylan Branham Cholesterol [Mass/Vol] 230 mg/dL Critically high <=200 [facility] Comment on above: Performed By: #### C RP, CMP, TSH, LIPID ####[facility] [address] [place] [address]Dr. Zafar Branham Cholesterol in HDL [Mass/Vol] 71 mg/dL Critically high 40-60 [facility] Comment on above: Performed By: #### C RP, CMP, TSH, LIPID ####[facility] [address] [place] [address]Dr. Zafar Branham Cholesterol in LDL [Mass/Vol] 139.4 mg/dL Normal [facility] Comment on above: Performed By: #### C RP, CMP, TSH, LIPID ####[facility] [address] [place], [place] [address]Xe. Zafar Branham Cholesterol.total/C holesterol in HDL [Mass ratio] 3.2 {ratio} Normal [facility] Comment on above: Performed By: #### C RP, CMP, TSH, LIPID ####[facility] [address] [place] [id number]. Kathylan Branham HDL NORMAL > or = 60 mg/dl - LO W CARDIOVASCULAR RISK <40 mg/dl - HIGH CARDIOVASCULAR RISK Normal [facility] Comment on above: Performed By: #### C RP, CMP, TSH, LIPID ####[facility] [address] [place] [id number]. Kathylan Branham LDL CALC NORMAL SEE BELOW Normal [facility] Comment on above: Result Comment: <100 mg/dl OPTIMAL 100 - 129 mg/dl NEAR OR ABOVE OPTIMAL 130 - 159 mg/dl BORDERLINE HIGH 160 - 189 mg/dl HIGH >190 mg/dl VERY HIGH Performed By: #### C RP, CMP, TSH, LIPID ####[facility] [address] [place], [place] [address]HfBryant Branham Triglyceride [Mass/Vol] 98 mg/dL Normal <=150 [facility] Comment on above: Performed By: #### C RP, CMP, TSH, LIPID ####[facility] [address] [place], [place] [address]Kp. Zafar Branham VLDL CALC 19.6 mg/dL Normal [facility] Comment on above: Performed By: #### C RP, CMP, TSH, LIPID ####[facility] [address] [place], [place] [address]Wn. Zafar Branham URon 02-09-2023 , QUAL Negative Normal NEGATIVE [facility] Comment on above: Performed By: #### U AMIC, PREGU #### [facility] [address] [address] [address] Zafar Branham PROF 14(COMP METB)on 023 Albumin [Mass/Vol] 4.0 g/dL Normal 3.4-5.0 [facility] Comment on above: Performed By: #### C RP, CMP, TSH, LIPID #### [facility] [address] [address] [address] Zafar Branham Albumin/Globulin [Mass ratio] 0.9 {ratio} Normal [facility] Comment on above: Performed By: #### C RP, CMP, TSH, LIPID #### [facility] [address] [address] [address] Zafar Branham ALP [Catalytic activity/Vol] 94 U/L Normal 46-116 [facility] Comment on above: Performed By: #### C RP, CMP, TSH, LIPID #### [facility] [address] [address] [address] Zafar Branham ALT [Catalytic activity/Vol] 30 U/L Normal 14-59 [facility] Comment on above: Performed By: #### C RP, CMP, TSH, LIPID #### [facility] [address] [address] [address] Zafar Branham Anion gap [Moles/Vol] 13.6 mmol/L Normal [facility] Comment on above: Performed By: #### C RP, CMP, TSH, LIPID #### [facility] [address] [address] [address] Zafar Branham AST [Catalytic activity/Vol] 23 U/L Normal 15-37 [facility] Comment on above: Performed By: #### C RP, CMP, TSH, LIPID #### [facility] [address] [address] [address] Zafar Branham Bilirubin [Mass/Vol] 0.3 mg/dL Normal 0.2-1.0 [facility] Comment on above: Performed By: #### C RP, CMP, TSH, LIPID #### [facility] [address] [place] [address] Dr. Zafar Branham Calcium [Mass/Vol] 9.7 mg/dL Normal 8.5-10.1 [facility] Comment on above: Performed By: #### C RP, CMP, TSH, LIPID #### [facility] [address] [address] [address] Zafar Branham Chloride [Moles/Vol] 100 mmol/L Normal 98-107 [facility] Comment on above: Performed By: #### C RP, CMP, TSH, LIPID #### [facility] [address] [address] [address] Zafar Branham CO2 [Moles/Vol] 26.6 mmol/L Normal 21.0-32.0 [facility] Comment on above: Performed By: #### C RP, CMP, TSH, LIPID #### [facility] [address] [address] [address] Zafar Branham Creatinine [Mass/Vol] 1.00 mg/dL Normal 0.55-1.02 [facility] Comment on above: Performed By: #### C RP, CMP, TSH, LIPID #### [facility] [address] [address] [address] Zafar Branham EGFR-AF THAI >60 Normal >=60 [facility] Comment on above: Performed By: #### C RP, CMP, TSH, LIPID #### [facility] [address] [place] [address] Dr. Zafar Branham EGFR-NON AF THAI >60 Normal >=60 [facility] Comment on above: Performed By: #### C RP, CMP, TSH, LIPID #### [facility] [address] [place] [address] Dr. Zafar Branham Globulin (S) [Mass/Vol] 4.5 g/dL Normal [facility] Comment on above: Performed By: #### C RP, CMP, TSH, LIPID #### [facility] [address] [place] [address] Dr. Zafar Branham Glucose [Mass/Vol] 93 mg/dL Normal 74-106 [facility] Comment on above: Performed By: #### C RP, CMP, TSH, LIPID #### [facility] [address] [place] [address] Dr. Zafar Branham Potassium [Moles/Vol] 4.2 mmol/L Normal 3.5-5.1 [facility] Comment on above: Performed By: #### C RP, CMP, TSH, LIPID #### [facility] [address] [place] [address] Dr. Zafar Branham Protein [Mass/Vol] 8.5 g/dL Critically high 6.4-8.2 [facility] Comment on above: Performed By: #### C RP, CMP, TSH, LIPID #### [facility] [address] [place] [address] Dr. Zafar Branham Sodium [Moles/Vol] 136 mmol/L Normal 136-145 [facility] Comment on above: Performed By: #### C RP, CMP, TSH, LIPID #### [facility] [address] [place] [address] Dr. Zafar Branham Urea nitrogen [Mass/Vol] 10.0 mg/dL Normal 7.0-18.0 [facility] Comment on above: Performed By: #### C RP, CMP, TSH, LIPID #### [facility] [address] [address] [address] Zafar Branham Urea nitrogen/Creatinine [Mass ratio] 10.0 mg/mg Normal [facility] Comment on above: Performed By: #### C RP, CMP, TSH, LIPID #### [facility] [address] [address] [address] Zafar Branham SED RATE WESTERGRENon 2022 SED RATE 49 mm/hr Critically high <=20 [facility] Comment on above: Performed By: #### S EDR ####[facility] [address] [place] [address] [address]Dr. Zafar Branham TSHon 02-09-2023 TSH 0.590 uIU/mL Normal 0.358-3.740 [facility] Comment on above: Performed By: #### C RP, CMP, TSH, LIPID #### [facility] [address] [address] [address] Zafar Branham UA RANDOM W/MICROSCOPICon BACTERIA NONE SEEN Normal NONE SEEN [facility] Comment on above: Performed By: #### U AMIC, PREGU #### [facility] [address] [address] [address] Zafar Branham Bilirubin Ql (U) Negative Normal NEGATIVE [facility] Comment on above: Performed By: #### U AMIC, PREGU #### [facility] [address] [address] [address] Zafar Branham CAST NONE SEEN Normal NONE SEEN [facility] Comment on above: Performed By: #### U AMIC, PREGU #### [facility] [address] [address] [address] Zafar Branham Clarity (U) CLEAR Normal CLEAR [facility] Comment on above: Performed By: #### U AMIC, PREGU #### [facility] [address] [address] [address] Zafar Branham Color (U) LT. YELLOW Normal YELLOW [facility] Comment on above: Performed By: #### U AMIC, PREGU #### [facility] [address] [address] [address] Zafar Branham Crystals LM Nom (Urine sed) NONE SEEN Normal NONE SEEN [facility] Comment on above: Performed By: #### U AMIC, PREGU #### [facility] [address] [address] [address] Zafar Branham Epithelial cells LM Ql (Urine sed) FEW Abnormal NONE SEEN /RARE [facility] Comment on above: Performed By: #### U AMIC, PREGU #### [facility] [address] [address] [address] Zafar Branham Glucose Ql (U) Negative Normal NEGATIVE [facility] Comment on above: Performed By: #### U AMIC, PREGU #### [facility] [address] [address] [address] Zafar Branham Hemoglobin Ql (U) SMALL Abnormal NEGATIVE [facility] Comment on above: Performed By: #### U AMIC, PREGU #### [facility] [address] [address] [address] Zafar Branham Ketones Ql (U) Negative Normal NEGATIVE [facility] Comment on above: Performed By: #### U AMIC, PREGU #### [facility] [address] [place] [address] Dr. Zafar Branham LEUKOCYTES Negative Normal NEGATIVE [facility] Comment on above: Performed By: #### U AMIC, PREGU #### [facility] [address] [address] [address] Zafar Branham MUCOUS NONE SEEN Normal NONE SEEN [facility] Comment on above: Performed By: #### U AMIC, PREGU #### [facility] [address] [address] [address] Zafar Branham Nitrite Ql (U) Negative Normal NEGATIVE [facility] Comment on above: Performed By: #### U AMIC, PREGU #### [facility] [address] [place] [address] Dr. Zafar Branham pH (U) 6.0 [pH] Normal 5-9 [facility] Comment on above: Performed By: #### U AMIC, PREGU #### [facility] [address] [address] [address] Zafar Branham RBC 0-2 Normal 0-2 [facility] Comment on above: Performed By: #### U AMIC, PREGU #### [facility] [address] [address] [address] Zafar Branham SPEC GRAVITY <=1.005 Abnormal 1.005-<=1.025 [facility] Comment on above: Performed By: #### U AMIC, PREGU #### [facility] [address] [address] [address] Zafar Branham UA PROTEIN Negative Normal NEGATIVE/ TRACE [facility] Comment on above: Performed By: #### U AMIC, PREGU #### [facility] [address] [address] [address] Zafar Branham Urobilinogen Qn (U) 0.2 {Ramy'U}/dL Normal 0.2 - 1. 0 [facility] Comment on above: Performed By: #### U AMIC, PREGU #### [facility] [address] [address] [address] Zafar Branham WBC NONE SEEN Normal NONE SEEN [facility] Comment on above: Performed By: #### U AMIC, PREGU #### [facility] [address] [address] [address] Zafar Branham XR knee RT 4V*on 02-07-2023 XR knee RT 4V* [facility] [employer] Other XR knee RT 4V* [facility] [employer] Other XR knee RT 4V* [address] [place] [address] [employer] Other XR knee RT 4V* [place], [facility] No rt [employer] Other XR knee RT 4V* XRay Report [employer] Other XR knee RT 4V* Signed [employer] Other XR knee RT 4V* Patient: Vy Mckeon MR#: [id number] [employer] Other XR knee RT 4V* 5 [employer] Other XR knee RT 4V* : 1990 Acct:[id number] [employer] Other XR knee RT 4V* Age/Sex: 32 / F ADM Date: 02/07/23 [employer] Other XR knee RT 4V* Loc: XDUCLY Room: Type: [facility] [employer] Other XR knee RT 4V* Attending Dr: Shayla DENNEY [employer] Other XR knee RT 4V* Copies to: JUMANA Christianson [employer] Other XR knee RT 4V* Ordering Provider: JUMANA Christianson [employer] Other XR knee RT 4V* Date of Service: 02/07/23 [employer] Other XR knee RT 4V* XR/XR knee RT 4V*: RIGHT KNEE PAIN [employer] Other XR knee RT 4V* RIGHT KNEE - 4 views [employer] Other XR knee RT 4V* COMPARISON: None [employer] Other XR knee RT 4V* CLINICAL DATA: Patient fell last night and landed on right anterior knee. Pain, swelling and [employer] Other XR knee RT 4V* abrasions. [employer] Other XR knee RT 4V* AP, lateral and both oblique views were obtained. There is no fracture or dislocation. There is no [employer] Other XR knee RT 4V* significant knee effusion or focal soft tissue swelling. [employer] Other XR knee RT 4V* XR/XR knee RT 4V* [employer] Other XR knee RT 4V* IMPRESSION: [employer] Other XR knee RT 4V* NO ACUTE BONY INJURY. [employer] Other XR knee RT 4V* Impression dictated by: Rama Garsia M.D.02/07/2023 10:01 AM [employer] Other XR knee RT 4V* Dictation Location: [facility]- [employer] Other XR knee RT 4V* Transcribed By: MILKA 02/07/23 1001 [employer] Other XR knee RT 4V* Dictated By: Rama Garsia MD 02/07/23 1000 [employer] Other XR knee RT 4V* Signed By: [employer] Other XR knee RT 4V* 02/07/23 1001 [employer] Other XR knee RT 4V* [facility] [place] [address] [place] [address] XRay Report Signed Patient: Vy Mckeon MR#: [id number] 5 : 1990 Acct:[id number] Age/Sex: 32 / F ADM Date: 02/07/23 Loc: XDUC Room: Type: [facility] Attending Dr: Shayla DENNEY Copies [...] Rama Garsia M.D.02/07/2023 10:01 AM Dictation Location: [place] [address] Transcribed By: [facility] 02/07/23 1001 Dictated By: Rama Garsia MD 02/07/23 1000 Signed By: 02/07/23 1001 [facility] XR HIPS KARELY 5V W PELVISon XR [...] JO-ANN CHACON Date: 2022-12-17 13:04 Normal [facility] PREG QUANT HCGon 07-04-2022 HCG QUANT 1 mIU/mL Normal [facility] Comment on above: Performed By: #### P REGQNT #### [facility] [address] [place] [address] Dr. Zafar Branham HCG RANGE SEE BELOW Normal [facility] Comment on above: Result Comment: 5-50 0.2-1 WEEK 50-500 1-2 WEEKS 100-5,000 2-3 WEEKS 500-10,000 3-4 WEEKS 1,000-50,000 4-5 WEEKS 10,000-100,000 5-6 WEEKS 15,000-200,000 6-8 WEEKS 10,000-100,000 2-3 MONTHS Performed By: #### P REGQNT #### [facility] [address] [place] [address] Dr. Zafar Branham PREG QUANT HCGon 06-08-2022 HCG QUANT 16 mIU/mL Normal [facility] Comment on above: Performed By: #### P REGQNT ####[facility] [address] [place], [place] [address]RrDr. Zafar Branham HCG RANGE SEE BELOW Normal [facility] Comment on above: Result Comment: 5-50 0.2-1 WEEK 50-500 1-2 WEEKS 100-5,000 2-3 WEEKS 500-10,000 3-4 WEEKS 1,000-50,000 4-5 WEEKS 10,000-100,000 5-6 WEEKS 15,000-200,000 6-8 WEEKS 10,000-100,000 2-3 MONTHS Performed By: #### P REGQNT ####[facility] [address] [place], [place] [address]IlDr. Zafar Branham CBC AUTO DIFFon 05-23-2022 BASO # 0.0 103/ul Normal 0.0-0.1 [facility] Comment on above: Performed By: #### C BC #### [facility] [address] [address] [address] Zafar Branham Basophils/100 WBC (Bld) 0.6 % Normal 0.2-2.0 [facility] Comment on above: Performed By: #### C BC #### [facility] [address] [address] [address] Zafar Branham EO # 0.3 103/ul Normal 0.0-0.7 [facility] Comment on above: Performed By: #### C BC #### [facility] [address] [address] [address] Zafar Branham Eosinophils/100 WBC (Bld) 6.5 % Normal 0.9-7.0 [facility] Comment on above: Performed By: #### C BC #### [facility] [address] [address] [address] Zafar Branham Erythrocyte distribution width (RBC) [Ratio] 12.5 % Normal 11.0-15.0 [facility] Comment on above: Performed By: #### C BC #### [facility] [address] [place] [address] Dr. Zafar Branham Hematocrit (Bld) [Volume fraction] 37.2 % Normal 36.0-48.0 [facility] Comment on above: Performed By: #### C BC #### [facility] [address] [place] [address] Dr. Zafar Branham Hemoglobin (Bld) [Mass/Vol] 12.1 g/dL Normal 12.0-16.0 [facility] Comment on above: Performed By: #### C BC #### [facility] [address] [place] [address] Dr. Zafar Branham IG # 0.01 10e3/ul Normal 0.00-0.03 [facility] Comment on above: Performed By: #### C BC #### [facility] [address] [place] [address] Dr. Zafar Branham IG % 0.2 % Normal 0.0-0.5 [facility] Comment on above: Performed By: #### C BC #### [facility] [address] [place] [address] Dr. Zafar Branham LYMPH # 1.5 103/ul Normal 1.2-3.8 [facility] Comment on above: Performed By: #### C BC #### [facility] [address] [place] [address] Dr. Zafar Branham Lymphocytes/100 WBC (Bld) 29.8 % Normal 20.5-60.0 [facility] Comment on above: Performed By: #### C BC #### [facility] [address] [place] [address] Dr. Zafar Branham MANUAL DIFF REQ NO Normal [facility] Comment on above: Performed By: #### C BC #### [facility] [address] [place] [address] Dr. Zafar Branham MCH (RBC) [Entitic mass] 29.1 pg Normal 26.7-34.0 [facility] Comment on above: Performed By: #### C BC #### [facility] [address] [place] [address] Dr. Zafar Branham MCHC (RBC) [Mass/Vol] 32.5 g/dL Normal 29.9-35.2 [facility] Comment on above: Performed By: #### C BC #### [facility] [address] [address] [address] Zafar Branham MCV (RBC) [Entitic vol] 89.4 fL Normal 81.0-99.0 [facility] Comment on above: Performed By: #### C BC #### [facility] [address] [address] [address] Zafar Branham MONO # 0.4 103/ul Normal 0.3-0.8 [facility] Comment on above: Performed By: #### C BC #### [facility] [address] [address] [address] Zafar Branham Monocytes/100 WBC (Bld) 7.9 % Normal 1.7-12.0 [facility] Comment on above: Performed By: #### C BC #### [facility] [address] [place] [address] Dr. Zafar Branham NEUT # 2.7 103/ul Normal 1.4-6.5 [facility] Comment on above: Performed By: #### C BC #### [facility] [address] [place] [address] Dr. Zafar Branham Neutrophils/100 WBC (Bld) 55.0 % Normal 43.0-75.0 [facility] Comment on above: Performed By: #### C BC #### [facility] [address] [place] [address] Dr. Zafar Branham Platelet mean volume (Bld) [Entitic vol] 10.0 fL Normal 9.5-13.5 [facility] Comment on above: Performed By: #### C BC #### [facility] [address] [place] [address] Dr. Zafar Branham PLT 229 103/ul Normal 150-450 [facility] Comment on above: Performed By: #### C BC #### [facility] [address] [place] [address] Dr. Zafar Branham RBC 4.16 106/ul Critically low 4.20-5.40 [facility] Comment on above: Performed By: #### C BC #### [facility] [address] [address] [address] Zafar Branham WBC 5.0 103/ul Normal 4.0-11.0 [facility] Comment on above: Performed By: #### C BC #### [facility] [id number] Zafar Branham TYPE AND SCREENon 05-23-2022 TYPE AND SCREEN Negative Normal [facility] Comment on above: Performed By: #### T NS ####[facility] [address] [place], [place] [address]XrDr. Zafar Branham Covid-19 PCR (CVDTBH)on 05-01 SARS-CoV-2 (COVID-19) RNA MANOLO+probe Ql (Unsp spec) Not detected Normal NOT DETECTED [facility] Comment on above: Result Comment: This test is not yet approved or cleared by the [place] FDA. When there are no FDA-approved or cleared tests available, and other criteria are met, FDA can make tests available under an emergency access mechanism called an Emergency Use Authorization (EUA). The EUA for this test is supported by the [place] of Health and Human Service's (HHS's) declaration [...] SARS-CoV-2. Performed By: #### C VDTBH #### [facility] [id number] Zafar Branham US PREG TVon 05-18-2022 [...] by: BOBBI SIMONS Date: 2022-05-18 19:25 Normal [facility] US PREG TVon 05-03-2022 US PREG TV [...] by: BOBBI SIMONS Date: 2022-05-03 16:32 Normal [facility] Chlamydia/GC DNA, TPon 05-05 Chlamydia Probe, TP Negative Normal NEG [facility] Comment on above: Result Comment: CHLA MYDIA [...] nucleic acid target. Performed By: #### C [facility] #### [place] [address] Tax Services Specialist: King Boone MD Gonorrhea Probe, TP Negative Normal NEG [facility] Comment on above: Result Comment: NEIS SERIA [...] target. Performed By: #### C YTC #### [address] [address] Tax Services Specialist: King Boone MD HPV DNA High Riskon 05-05-20 20 HPV Interp Normal [facility] Comment on above: Result Comment: This test [...] purposes. Performed By: #### H PVH #### [facility] [employer] [address] [place] [phone] Tax Services Specialist: King Boone MD HPV Type 16 Not Detected Normal [facility] Comment on above: Performed By: #### H PVH #### [facility] [employer] [address] [place] [address] [phone] Tax Services Specialist: King Boone MD HPV Type 18 Not Detected [facility] Comment on above: Performed By: #### H PVH #### [facility] [address] [place] [address] Tax Services Specialist: King Boone MD Other High Risk HPV Not Detected Normal [facility] Comment on above: Performed By: #### H PVH #### [facility] [employer] [facility] [place] [address] Tax Services Specialist: King Boone MD HPV Sample .THIN PREP Normal [facility] Comment on above: Performed By: #### H PVH #### [facility] [employer] [facility] [place] [address] Tax Services Specialist: King Boone MD Source .ENDOCERVIX Normal [facility] Comment on above: Performed By: #### H PVH #### [address] [address] Tax Services Specialist: King Boone MD Otheron 05-04-2020 Direct Exam Negative [place], [place] VAGINITIS DNA PROBEon 2019 Direct Exam Positive Abnormal [place], [place] Direct Exam Method of testing is a DNA probe intended for detection and identification of Diane species, Gardnerella vaginalis, and Trichomonas vaginalis nucleic acid in vaginal fluid specimens from patients with symptoms of vaginitis/vaginosis. [place] Interpretation and review of laboratory results Abnormal [place] Special Requests NOT REPORTED [place] Specimen Description .VAGINAL SWAB [place] Vaginitis DNA Probeon 2019 Vaginitis DNA [...] symptoms of vaginitis/vaginosis. Report Status FINAL 05/04/2020 [facility] Comment on above: Performed By: #### V AGDNA #### [facility] [employer] [address] [place] [address] [id number] Tax Services Specialist: King Boone MD Cytologyon 05-03-2020 Cytology (NOTE) INTERPRETATION Endocervical material, (Thin prep vial, Imaging-assisted review): Specimen Adequacy: Satisfactory for evaluation. - Endocervical/transfor mation zone component present. Descriptive Diagnosis: Negative for intraepithelial lesion or malignancy. Shift in ray suggestive of bacterial vaginosis. Comments: High Risk HPV testing was ordered. Automatic Spooler Operator: JAYLIN Higgins(ASCP) Electronically Signed Out ana/05/07/2020 Procedure/Addendum [...] GYNECOLOGIC CYTOLOGY REPORT Patient Name: VY MCKEON [facility] Rec: [id number] Path Number: [id number] [employer] [facility] ANATOMIC PATHOLOGY [address] [place] [address]. [place], [place] [address] [facility] Comment on above: Performed By: #### P PPVP #### [employer] [address] [place] [address] Tax Services Specialist: King Boone MD Vital Signs Date Time Vital Sign Value Performing Clinician Facility 01-21-2024 11:59-0400 Body height 170.2 cm Ana Peoples MD Work Phone: [facility] 01-21-2024 11:59-0400 Body mass index (BMI) [Ratio] 30.07 kg/m2 Ana Peoples MD Work Phone: [facility] 01-21-2024 11:59-0400 Body weight 87.1 kg Ana Peoples MD Work Phone: [facility] 01-21-2024 11:59-0400 Diastolic blood pressure 75 mm[Hg] Ana Peoples MD Work Phone: [facility] 01-21-2024 11:59-0400 Heart rate 108 /min Ana Peoples MD Work Phone: [facility] 01-21-2024 11:59-0400 Systolic blood pressure 125 mm[Hg] Ana Peoples MD Work Phone: [facility] 01-21-2024 11:02-0400 Body height 170.2 cm Ana Peoples MD Work Phone: [facility] 01-21-2024 11:02-0400 Body mass index (BMI) [Ratio] 30.07 kg/m2 Ana Peoples MD Work Phone: [facility] 01-21-2024 11:02-0400 Body weight 87.09 kg Ana ePoples MD Work Phone: [facility] 01-04-2024 14:31-0400 Body temperature 97.11 [degF] Fransico Sharp MD Work Phone: [facility] 01-04-2024 14:31-0400 Diastolic blood pressure 83 mm[Hg] Fransico Sahrp MD Work Phone: [facility] 01-04-2024 14:31-0400 Heart rate 94 /min Fransico Sharp MD Work Phone: [facility] 01-04-2024 14:31-0400 Respiratory rate 20 /min Fransico Sharp MD Work Phone: [facility] 01-04-2024 14:31-0400 SaO2% (BldA) [Mass fraction] 99 % Fransico Sharp MD Work Phone: [facility] 01-04-2024 14:31-0400 Systolic blood pressure 148 mm[Hg] Fransico Sharp MD Work Phone: [facility] 12-17-2023 13:42-0400 Body height 170.2 cm Freddie Delgado SYNTHETIC STAPLE EXTRUDER-SALAD BAR CLERK Work Phone: [facility] 12-17-2023 13:42-0400 Body mass index (BMI) [Ratio] 29.47 kg/m2 Freddie Ordoñezjas SYNTHETIC STAPLE EXTRUDER-SALAD BAR CLERK Work Phone: [facility] 12-17-2023 13:42-0400 Body temperature 98.71 [degF] Freddie Ordoñezjas SYNTHETIC STAPLE EXTRUDER-SALAD BAR CLERK Work Phone: [facility] 12-17-2023 13:42-0400 Body weight 85.37 kg Freddie Ordoñezjas SYNTHETIC STAPLE EXTRUDER-SALAD BAR CLERK Work Phone: [facility] 12-17-2023 13:42-0400 Diastolic blood pressure 80 mm[Hg] Freddie Delgado SYNTHETIC STAPLE EXTRUDER-SALAD BAR CLERK Work Phone: [facility] 12-17-2023 13:42-0400 Heart rate 86 /min Freddie Delgado SYNTHETIC STAPLE EXTRUDER-SALAD BAR CLERK Work Phone: [facility] 12-17-2023 13:42-0400 SaO2% (BldA) [Mass fraction] 96 % Freddie Delgado SYNTHETIC STAPLE EXTRUDER-SALAD BAR CLERK Work Phone: [facility] 12-17-2023 13:42-0400 Systolic blood pressure 128 mm[Hg] Freddie Delgado SYNTHETIC STAPLE EXTRUDER-SALAD BAR CLERK Work Phone: [facility] 11-12-2023 13:13-0500 Body mass index (BMI) [Ratio] 28.47 kg/m2 Dionne Xiao PA Work Phone: [facility] 11-12-2023 13:13-0500 Body weight 82.46 kg Dionne Dameon PA Work Phone: [facility] 11-12-2023 13:13-0500 Diastolic blood pressure 72 mm[Hg] Dionne Dunbar PA Work Phone: [facility] 11-12-2023 13:13-0500 Systolic blood pressure 114 mm[Hg] Dionne Dameon PA Work Phone: [facility] 05-29-2023 13:25-0400 Body height 170.18 cm Shayla Valle Other [employer] Other 05-29-2023 13:25-0400 Body mass index (BMI) [Ratio] 28.22 kg/m2 Shayla Valle Other [employer] Other 05-29-2023 13:25-0400 Body temperature 97.8 [degF] Shayla Valle Other [employer] Other 05-29-2023 13:25-0400 Body weight 81.74 kg Shayla Valle Other [employer] Other 05-29-2023 13:25-0400 Diastolic blood pressure 79 mm[Hg] Shayla Valle Other [employer] Other 05-29-2023 13:25-0400 Respiratory rate 18 /min Shayla Valle Other [employer] Other 05-29-2023 13:25-0400 SaO2% (BldA) [Mass fraction] 96 % Shayla Tori Other [facility] [employer] Other 05-29-2023 13:25-0400 Systolic blood pressure 127 mm[Hg] Shayla Tori Other [employer] Other 03-19-2023 14:37-0400 Diastolic blood pressure 69 mm[Hg] PICCOLOIST-C Shayla Tori Work Phone: [facility] 03-19-2023 14:37-0400 Heart rate 76 /min PICCOLOIST-C Shayla Tori Work Phone: [facility] 03-19-2023 14:37-0400 Respiratory rate 16 /min PICCOLOIST-C Shayla Tori Work Phone: [facility] 03-19-2023 14:37-0400 SaO2% (BldA) [Mass fraction] 96 % PICCOLOIST-C Shayla Tori Work Phone: [facility] 03-19-2023 14:37-0400 Systolic blood pressure 119 mm[Hg] PICCOLOIST-C Shayla Tori Work Phone: [facility] 03-19-2023 12:18-0400 Body height 170.18 cm PICCOLOIST-C Shayla Tori Work Phone: [facility] 03-19-2023 12:18-0400 Body temperature 97.9 [degF] PICCOLOIST-C Shayla Tori Work Phone: [facility] 03-19-2023 12:18-0400 Body weight 84.82 kg PICCOLOIST-C Shayla Tori Work Phone: [facility] 02-12-2023 14:30-0400 Body height 170.18 cm Yoel Jarrett Other [facility] [employer] Other 02-12-2023 14:30-0400 Body mass index (BMI) [Ratio] 30.54 kg/m2 Yoel Willydonna Other [employer] Other 02-12-2023 14:30-0400 Body weight 88.45 kg Yoel Scovanner Other [employer] Other 02-12-2023 14:30-0400 Diastolic blood pressure 80 mm[Hg] Yoel Scovanner Other [employer] Other 02-12-2023 14:30-0400 Systolic blood pressure 127 mm[Hg] Yoel Scovanner Other [employer] Other 02-07-2023 10:00-0400 Body height 170.18 cm Shayla Tori Other [employer] Other 02-07-2023 10:00-0400 Body mass index (BMI) [Ratio] 30.54 kg/m2 Shayla Tori Other [employer] Other 02-07-2023 10:00-0400 Body temperature 97.9 [degF] Shayla Tori Other [employer] Other 02-07-2023 10:00-0400 Body weight 88.45 kg Shayla Tori Other [employer] Other 02-07-2023 10:00-0400 Respiratory rate 18 /min Shayla Tori Other [employer] Other 02-07-2023 10:00-0400 SaO2% (BldA) [Mass fraction] 97 % Shayla Valle Other [employer] Other 05-03-2020 11:41-0400 BMI (Body Mass Index) 24.5 kg/m2 [facility] Work Phone: 05-03-2020 11:41-0400 Body Temperature 96.3 [degF] [facility] Work Phone: 05-03-2020 11:41-0400 Body weight 70.9 kg [facility] Work Phone: 05-03-2020 11:41-0400 BP Diastolic 80 mm[Hg] [facility] Work Phone: 05-03-2020 11:41-0400 BP Systolic 120 mm[Hg] [facility] Work Phone: 05-03-2020 11:41-0400 BSA (Body Surface Area) 1.82 m2 [facility] Work Phone: 05-03-2020 11:41-0400 Height 170.18 cm [facility] Work Phone: 05-03-2020 11:41-0400 Pulse (Heart Rate) 86 /min [facility] Work Phone: 05-03-2020 11:41-0400 Pulse Oximetry 93 % [facility] Work Phone: 05-03-2020 11:41-0400 Respiratory Rate 18 /min [facility] Work Phone: 04-08-2020 08:37-0400 BMI (Body Mass Index) 24.3 kg/m2 [facility] Work Phone: 04-08-2020 08:37-0400 Body Temperature 99 [degF] [facility] Work Phone: 04-08-2020 08:37-0400 Body weight 70.4 kg Sally [facility] Work Phone: 04-08-2020 08:37-0400 BP Diastolic 80 mm[Hg] [facility] Work Phone: 04-08-2020 08:37-0400 BP Systolic 110 mm[Hg] [facility] Work Phone: 04-08-2020 08:37-0400 BSA (Body Surface Area) 1.82 m2 [facility] Work Phone: 04-08-2020 08:37-0400 Height 170.18 cm [facility] Work Phone: 04-08-2020 08:37-0400 Pulse (Heart Rate) 82 /min [facility] Work Phone: 04-08-2020 08:37-0400 Pulse Oximetry 98 % [facility] Work Phone: 04-08-2020 08:37-0400 Respiratory Rate 18 /min [facility] Work Phone: 03-29-2020 09:52-0400 Body height 170.18 cm Sally [facility] Work Phone: [facility] Work Phone: Comment on above: self 03-29-2020 09:52-0400 Body mass index (BMI) [Ratio] 23.5 kg/m2 Sally Morejon [facility] Work Phone: [facility] Work Phone: Comment on above: self 03-29-2020 09:52-0400 Body surface area Derived from formula 1.79 m2 Sally Morejon [facility] Work Phone: [facility] Work Phone: Comment on above: self 03-29-2020 09:52-0400 Body weight 68.04 kg Sally Morejon SALAD BAR CLERK Work Phone: [facility] Work Phone: Comment on above: self 10-14-2019 08:30-0500 BMI (Body Mass Index) 24.1 kg/m2 [facility] Work Phone: 10-14-2019 08:30-0500 Body Temperature 98.5 [degF] [facility] Work Phone: 10-14-2019 08:30-0500 Body weight 69.76 kg [facility] Work Phone: 10-14-2019 08:30-0500 BP Diastolic 78 mm[Hg] [facility] Work Phone: 10-14-2019 08:30-0500 BP Systolic 132 mm[Hg] [facility] Work Phone: 10-14-2019 08:30-0500 BSA (Body Surface Area) 1.81 m2 [facility] Work Phone: 10-14-2019 08:30-0500 Height 170.18 cm [facility] Work Phone: 10-14-2019 08:30-0500 Pulse (Heart Rate) 88 /min [facility] Work Phone: 10-14-2019 08:30-0500 Pulse Oximetry 98 % [facility] Work Phone: 10-14-2019 08:30-0500 Respiratory Rate 18 /min [facility] Work Phone: 10-14-2019 08:30-0500 SaO2% (BldA) [Mass fraction] 98 % [facility] Work Phone: [facility] Work Phone: 09-04-2019 13:52-0500 BMI (Body Mass Index) 22.9 kg/m2 [facility] Work Phone: 09-04-2019 13:52-0500 Body Temperature 98.5 [degF] Sally [facility] Work Phone: 09-04-2019 13:52-0500 Body weight 66.23 kg Sally [facility] Work Phone: 09-04-2019 13:52-0500 BP Diastolic 90 mm[Hg] [facility] Work Phone: 09-04-2019 13:52-0500 BP Systolic 122 mm[Hg] [facility] Work Phone: 09-04-2019 13:52-0500 BSA (Body Surface Area) 1.77 m2 Sally [facility] Work Phone: 09-04-2019 13:52-0500 Height 170.18 cm [facility] Work Phone: 09-04-2019 13:52-0500 Pulse (Heart Rate) 98 /min [facility] Work Phone: 09-04-2019 13:52-0500 Pulse Oximetry 98 % [facility] Work Phone: 09-04-2019 13:52-0500 Respiratory Rate 18 /min [facility] Work Phone: 09-04-2019 13:52-0500 SaO2% (BldA) [Mass fraction] 98 % Sally [facility] Work Phone: [facility] Work Phone: 08-19-2019 09:32-0500 BMI (Body Mass Index) 23.2 kg/m2 [facility] Work Phone: 08-19-2019 09:32-0500 Body Temperature 98 [degF] [facility] Work Phone: 08-19-2019 09:32-0500 Body weight 67.31 kg Sally [facility] Work Phone: 08-19-2019 09:32-0500 BP Diastolic 80 mm[Hg] [facility] Work Phone: 08-19-2019 09:32-0500 BP Systolic 120 mm[Hg] [facility] Work Phone: 08-19-2019 09:32-0500 BSA (Body Surface Area) 1.78 m2 Sally [facility] Work Phone: 08-19-2019 09:32-0500 Height 170.18 cm [facility] Work Phone: 08-19-2019 09:32-0500 Pulse (Heart Rate) 90 /min [facility] Work Phone: 08-19-2019 09:32-0500 Pulse Oximetry 98 % [facility] Work Phone: 08-19-2019 09:32-0500 Respiratory Rate 18 /min [facility] Work Phone: 08-19-2019 09:32-0500 SaO2% (BldA) [Mass fraction] 98 % Sally [facility] Work Phone: [facility] Work Phone: 07-28-2019 11:31-0400 BMI (Body Mass Index) 22.7 kg/m2 [facility] Work Phone: 07-28-2019 11:31-0400 Body Temperature 98.8 [degF] [facility] Work Phone: 07-28-2019 11:31-0400 Body weight 65.77 kg [facility] Work Phone: 07-28-2019 11:31-0400 BP Diastolic 84 mm[Hg] [facility] Work Phone: 07-28-2019 11:31-0400 BP Systolic 132 mm[Hg] [facility] Work Phone: 07-28-2019 11:31-0400 BSA (Body Surface Area) 1.76 m2 [facility] Work Phone: 07-28-2019 11:31-0400 Height 170.18 cm [facility] Work Phone: 07-28-2019 11:31-0400 Pulse (Heart Rate) 65 /min [facility] Work Phone: 07-28-2019 11:31-0400 Pulse Oximetry 97 % [facility] Work Phone: 07-28-2019 11:31-0400 Respiratory Rate 18 /min [facility] Work Phone: 07-28-2019 11:31-0400 SaO2% (BldA) [Mass fraction] 97 % [facility] Work Phone: [facility] Work Phone: Encounters Encounter Date Encounter Type Care Provider Facility Start: 02-11-2024 End: 02-11-2024 ambulatory ELIAZAR CASTANEDA Not Available Start: 01-29-2024 End: 01-29-2024 ambulatory CANDACE MORAN [facility] Start: 01-28-2024 End: 01-28-2024 ambulatory DIONNE XIAO Not Available Start: 01-25-2024 Telephone encounter Fransico kulkarni MD Work Phone: Plastic Surgery Comment on above: Appointment Start: 01-25-2024 End: 01-26-2024 ambulatory FIDENCIO Pichardo [facility] Start: 01-23-2024 ambulatory Usman bianchi MD Work [...] above: Appointment Start: 01-14-2024 End: 01-14-2024 ambulatory GURJIT ROBIN [facility] Start: 01-10-2024 Telephone encounter Historical [facility] Start: 01-09-2024 Telephone encounter Fransico kulkarni MD Work Phone: Plastic Surgery Start: 01-08-2024 End: 01-08-2024 ambulatory ELIAZAR CASTANEDA Not Available Start: 01-04-2024 End: 01-05-2024 ambulatory FRANSICO SHARP Facility:[facility] Start: 01-04-2024 End: 01-05-2024 ambulatory Fransico Sharp MD Work Phone: Plastic Surgery Comment on above: Malignant melanoma o f skin (HCC) (Primary Dx) Start: 01-04-2024 End: 01-05-2024 Patient encounter procedure Fransico Sharp MD Work Phone: [facility] Start: 12-26-2023 End: 12-27-2023 ambulatory USMAN GOLDBERG Facility:[facility] Start: 12-21-2023 Chart abstracting Usman rincon MD Work Phone: Hematology/Oncology Start: 12-17-2023 End: 12-17-2023 ambulatory [facility] Start: 12-17-2023 End: 12-17-2023 Office outpatient visit 10 minutes [facility] 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 EXTRUDER-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 CLERK Work Phone: [facility] Comment on above: Nausea and vomiting, unspecified vomiting type (Primary Dx); Psychophysiological insomnia Start: 12-10-2023 End: 12-10-2023 ambulatory ELIAZAR CASTANEDA Not Available Start: 12-07-2023 Documentation procedure Chris Antonio LCGC Work Phone: [facility] Comment on above: Outgoing Ca ll Start: 11-20-2023 End: 11-21-2023 Orders Only Roshni Rodriguez RN [facility]aternal [facility] Comment on above: Placenta previa ante in second trimester (Primary Dx); Multigravida of advanced maternal age in second trimester Start: 11-20-2023 End: 11-20-2023 Office outpatient visit 15 minutes Fidencio Rojas MD Work Phone: Maternal Medicine [place] Comment on above: 20 weeks gestation o f (Primary Dx); Placenta previa antepartum in second trimester; Advanced maternal age in multigravida, second trimester Start: 11-13-2023 Orders Only Juan Ramon Sultana [facility]- [facility] Comment on above: Multigravida of adva nced maternal age in second trimester; Family history of autism; Family history of mental disorder Start: 11-12-2023 End: 11-12-2023 ambulatory DIONNE XIAO Not Available Start: 11-12-2023 Documentation procedure Chris Antonio LCGC Work Phone: [facility] Comment on above: Outgoing Ca [...] intractable Start: 10-29-2023 Documentation procedure Chris Antonio [facility] Work Phone: [facility]- [facility] Comment on above: Incoming Ca ll Start: 10-23-2023 Orders Only Angela Megan SPECIAL EDUCATION DIRECTOR Mat ernal- [facility] Comment on above: Multigravida of adva nced maternal age in second trimester (Primary Dx); Family history of autism; Family history of mental disorder Start: 10-22-2023 End: 10-22-2023 ambulatory ELIAZAR R NORMA [facility] Start: 10-22-2023 End: 10-22-2023 Telemedicine consultation with patient Katarina Antonio [facility] Work Phone: [facility]- [facility] Comment on above: Multigravida of adva nced maternal age in second trimester (Primary Dx); Family history of autism; Family history of mental disorder Start: 10-08-2023 End: 10-08-2023 ambulatory ELIAZAR NORMA Not Available Start: 08-30-2023 End: 08-30-2023 ambulatory ELIAZAR NORMA Not Available Start: 05-29-2023 End: 05-29-2023 ambulatory Shayla Valle Other [employer] Other Start: 05-29-2023 Office outpatient vi sit 15 minutes Shayla Valle [facility] Start: 03-19-2023 End: 03-19-2023 ambulatory NON STAFF Facility:[facility] Start: 03-19-2023 End: 03-19-2023 Admission to same day surgery center PICCOLOIST-C Shayla Valle Work Phone: [facility] Work Phone: Start: 03-19-2023 End: 03-19-2023 ambulatory NON STAFF [facility] Work Phone: Start: 02-12-2023 End: 02-12-2023 ambulatory Yoel Jarrett Other [facility] [employer] Other Start: 02-12-2023 Office outpatient ne w 30 minutes Yoel Jarrett [facility] Start: 02-09-2023 End: 02-10-2023 ambulatory SALAD BAR CLERK VITO COULTER Facility:[facility] Start: 02-07-2023 Office outpatient ne w 20 minutes Shayla Valle [facility] Start: 02-07-2023 End: 02-07-2023 ambulatory Shayla Caseymond [facility] [employer] Other Start: 02-07-2023 End: 02-07-2023 Patient encounter procedure PICCOLOIST-C Shayla Tori Work Phone: [facility] Work Phone: Start: 12-27-2022 ambulatory PRADEEP COULTER Facil ity:[facility] Start: 12-16-2022 End: 12-17-2022 ambulatory PRADEEP COULTER Facility:[facility] Start: 07-04-2022 End: 07-05-[address] ELIAZAR CASTANEDA . Facility:[facility] Start: 06-08-2022 End: 07-01-[address] ELIAZAR CASTANEDA . Facility:[facility] Start: 05-23-2022 End: 05-23-[address] ELIAZAR CASTANEDA . Facility:[facility] Start: 05-22-2022 Encounter for preprocedural laboratory examination DR ELIAZAR CASTANEDA . [facility] Start: 05-19-2022 End: 05-20-[address] ELIAZAR CASTANEDA . Facility:[facility] Start: 05-19-2022 End: 05-20-2022 Encounter for preprocedural laboratory examination DR ELIAZAR CASTANEDA . Facility:[facility] Start: 05-18-2022 End: 05-19-[address] ELIAZAR CASTANEDA . Facility:[facility] Start: 05-03-2022 End: 05-04-[address] ELIAZAR CASTANEDA . Facility:[facility] Start: 05-03-2020 End: 05-03-2020 ambulatory Candace Grossman Work Phone: [facility] Work Phone: Start: 05-03-2020 End: 05-04-2020 Patient encounter procedure CANDACE GROSSMAN [facility] Start: 05-03-2020 End: 05-03-2020 Subsequent hospital visit by physician ARMANI ANNA [facility] Start: 04-08-2020 End: 04-08-2020 ambulatory Linnea Escobar Work Phone: [facility] Work Phone: Start: 03-29-2020 End: 03-29-2020 General Emilee Sanford Work Phone: [facility] Work Phone: Start: 03-29-2020 End: 03-29-2020 Telemedicine consultation with patient Candace Grossman Work Phone: [facility] Work Phone: Start: 01-08-2020 End: 01-08-2020 Telemedicine consultation with patient Candace Grossman Work Phone: [facility] Work Phone: Start: 12-30-2019 End: 12-30-2019 Patient encounter procedure Emilee Sanford Work Phone: [facility] Work Phone: Start: 12-30-2019 End: 12-30-2019 Telemedicine consultation with patient Candace Grossman Work Phone: [facility] Work Phone: Start: 10-14-2019 End: 10-14-2019 Established patient Bobbi Colon Work Phone: [facility] Work Phone: Start: 09-04-2019 End: 09-04-2019 Established patient Bobbi Colon Work Phone: [facility] Work Phone: Start: 08-19-2019 End: 08-19-2019 Nursing evaluation of patient and report Candace Grossman Work Phone: [facility] Work Phone: Start: 07-28-2019 End: 07-28-2019 Established patient Bobib Colon Work Phone: [facility] Work Phone: Start: 07-28-2019 End: 07-28-2019 New patient Candace Grossman Work Phone: [facility] Work Phone: Start: 08-13-2017 End: 08-14-2017 Ambulatory Upender hlot Facility:[facility] Procedures Date Procedure Procedure Detail Performing Clinician Start: 01-21-2024 Us preg uterus after 1st trimest 10/01 gestation Ana Peoples MD Work Phone: Start: 11-12-2023 Urnls dip stick/tabl et rgnt non-auto w/o micrscp Dionne BRAN Work Phone: Start: 11-12-2023 URETHRITIS/DISCHARGE PLUS VAGINITIS (HTRX) Dionne BRAN Work Phone: Start: 10-25-2023 UNLISTED LAB TEST Miriam Antonio [facility] Work Phone: Start: 09-10-2023 Adult depression scr eening assessment Katarina Antonio [facility] Work Phone: Start: 03-19-2023 Esophagogastroduodenoscopy PICCOLOIST-C Shayla Valle Work Phone: Start: 03-01-2023 Microscopic observat ion [Identifier] in Cervix by Cyto stain Dionne BRAN Work Phone: Start: 02-07-2023 X-ray of right knee PICCOLOIST- C Shayla Valle Work Phone: Start: 05-03-2020 Obtaining screen pap smear Candace Grossman Work Phone: Start: 05-03-2020 Iaad ia chlamydia trachomatis CANDACE GROSSMAN Start: 05-03-2020 Iadna diane specie s direct probe tq CANDACE GROSSMAN Start: 05-03-2020 Iadna diane specie s direct probe tq Candace Grossman Work Phone: Start: 05-03-2020 Microscopic observat ion [Identifier] in Cervix by Cyto stain Katarina BLISS Work Phone: Start: 04-08-2020 Diast bp 80-89 [...] Use Disorders Identification Test ___(0-40) Candace Grossman [employer] BAR CLERK Work Phone: Start: 07-28-2019 ANXIETY DISORDER NOS Ca ssie Jean-Pierre Start: 07-28-2019 ASTHMA Sally Tab er Start: 07-28-2019 DEPRESSION Sally Tab er Start: 07-28-2019 Diast bp 80-89 mm hg monico Grossman Work Phone: Start: 07-28-2019 History of influenza vaccination Sally Jean-Pierre Start: 07-28-2019 PSYCHIATRIC DISORDERS C assie Jean-Pierre Start: 07-28-2019 Psychotherapy w/howie ent 30 minutes Bobbi Colon Work Phone: Start: 07-28-2019 Pt-focused hlth risk assmt score doc stnd instrm Candace Grossman Work Phone: Start: 07-28-2019 Removal non-biodegra dable drug delivery implant Candace Grossman Work Phone: Start: 07-28-2019 RESPIRATORY DISORDERS C assie Jean-Pierre Start: 07-28-2019 Surgical procedure Chela ie Jean-Pierre Start: 07-28-2019 Syst bp ge 130 - 139mm hg Candace Grossman Work Phone: NEGATED: Highlighted row has not occurred!Start: 04-08-2020 currently nursing Sally Morejon NEGATED: Highlighted row has not occurred!Start: 07-28-2019 currently Sally Morejon Plan of Treatment Date Care Activity Detail Author Start: 2048 RSV Vaccine (1 - 1-d ose 60+ series) RSV Vaccine (1 - 1-dose 60+ series) [facility] Start: 01-02-2034 Urine microalbumin profile DTaP,Tdap,Td Vaccine (7 - Td or Tdap) [facility] Start: 03-12-2028 Screening for malign ant neoplasm of cervix HPV/Cotest [facility] Start: 03-01-2028 Screening for malign ant neoplasm of cervix [facility] Start: 01-25-2028 DTaP,Tdap and Td Vaccines (6 - Td or Tdap) DTaP,Tdap and Td Vaccines (6 - Td or Tdap) [facility] Start: 01-25-2028 Urine microalbumin profile DTaP,Tdap,Td Vaccine (2 - Td or Tdap) [facility] Start: 12-16-2024 Adult BMI Screening Adult BMI Screen ing [facility] Start: 12-16-2024 Tobacco Screening Tobacco Screening [facility] Start: 10-23-2024 End: 10-23-2024 Unlisted Lab Test Unlisted Lab Test Lab Routine Multigravida of advanced maternal age in second trimester Family history of autism Family history of mental disorder Expected: 10/23/2024 (Approximate), Expires: 10/23/2024 [facility] Work Phone: Comment on above: Expected: 10/23/2024 (Approximate), Expires: 10/23/2024 Start: 09-10-2024 Adult BMI Screening Adult BMI Screen ing [facility] Start: 09-10-2024 Depression Screening Depression Scre ening [facility] Start: 09-10-2024 Tobacco Screening Tobacco Screening [facility] Start: 03-17-2024 End: 03-17-2024 Admission to same day surgery center 03/17/2024 11:30 AM EDT Visit (SP) Office Plastic Surgery [address] [place] [address] Tana Cervantes, ABHI.SALAD BAR CLERK [address] [place], [place] [id number] post op Plastic Surgery Comment on above: [...] 10:45 AM EDT Hospital Encounter Admitting [address] [place] [address] Fransico Sharp MD [address] [place] [address] Malignant melanoma of skin (HCC) [C43.9] Admitting Comment on above: Malignant melanoma o f skin (HCC) [C43.9] Start: 03-14-2024 End: 03-14-2024 Patient encounter procedure 03/14/2024 8:30 AM EDT Appointment Molecular Imaging [address] [id number] MELANOMA-NM LYMPH NODE IMAGING Molecular Imaging Comment on above: MELANOMA-NM LYMPH NO DE IMAGING Start: 03-07-2024 End: 03-07-2024 Anesthesia consultation 03/07/2024 1:20 PM EDT PAT Pre Anesthesia [address] [place] [address] 9, Pacc Main [address] [place] [address] pacc Pre Anesthesia Comment on above: pacc Start: 02-22-2024 End: 02-22-2024 Patient encounter procedure 02/22/2024 10:45 AM EDT Appointment Radiology Pet CT [address] [place] [address] ct chest and stn w Radiology Pet CT Comment on above: ct chest and stn w Start: 02-20-2024 End: 02-20-2024 ambulatory 02/20/2024 3:00 PM EDT Results Only [facility] [address] [place] [address] [place] [address] [facility] Start: 02-20-2024 End: 01-22-2025 CBC W Auto Differential panel - Blood COMPLETE BLOOD COUNT AND DIFFERENTIAL Lab Routine Malignant melanoma of skin (HCC) Expected: 02/20/2024 (Approximate), Expires: 01/22/2025 [facility] Comment on above: Expected: 02/20/2024 (Approximate), Expires: 01/22/2025 Start: 02-20-2024 End: 01-22-2025 Comprehensive metabolic 2000 panel - Serum or Plasma COMPREHENSIVE METABOLIC PANEL Lab Routine Malignant melanoma of skin (HCC) Expected: 02/20/2024 (Approximate), Expires: 01/22/2025 [facility] Comment on above: Expected: 02/20/2024 (Approximate), Expires: 01/22/2025 Start: 02-20-2024 End: 02-21-2025 CT Chest W contrast IV CT CHEST W IVCON Radiology Routine Malignant melanoma of skin (HCC) Expected: 02/20/2024 (Approximate), Expires: 02/21/2025 [facility] Comment on above: Expected: 02/20/2024 (Approximate), Expires: 02/21/2025 Start: 02-20-2024 End: 02-21-2025 CT Neck W contrast IV CT NECK SOFT TISSUE W IVCON Radiology Routine Malignant melanoma of skin (HCC) Expected: 02/20/2024 (Approximate), Expires: 02/21/2025 [facility] Work Phone: Comment on above: Expected: 02/20/2024 (Approximate), Expires: 02/21/2025 Start: 02-20-2024 End: 01-22-2025 Lactate dehydrogenase [Enzymatic activity/volume] in Serum or Plasma LACTATE DEHYDROGENASE Lab Routine Malignant melanoma of skin (HCC) Expected: 02/20/2024 (Approximate), Expires: 01/22/2025 [facility] Comment on above: Expected: 02/20/2024 (Approximate), Expires: 01/22/2025 Start: 02-19-2024 Subsequent hospital visit by physician 02/19/2024 Hospital Encounter Surgery Center [address] [address] Fransico Sharp MD [address] [place] [address] Malignant melanoma of skin (HCC) [C43.9] Surgery Center Comment on above: Malignant melanoma o f skin (HCC) [C43.9] Start: 02-18-2024 End: 11-20-2024 US MFM with or without consult US MFM with or without consult Imaging Routine Placenta previa antepartum in second trimester Multigravida of advanced maternal age in second trimester Expected: 02/18/2024 (Approximate), Ex[facility]: [facility]: Comment on above: Expected: 02/18/2024 (Approximate), Expires: 11/20/2024 Start: 02-12-2024 End: 02-12-2024 Patient encounter procedure [facility] Ul[facility] Comment on above: MELANOMA-NM LYMPH NO DE IMAGING Start: 01-14-2024 End: 01-14-2024 Telemedicine consultation with patient 01/14/2024 10:15 AM EDT Telemedicine [facility] [address] [place] [address] [address] [place] [address] [place] [address] [place] [address], [address] [place] [address] [facility] Start: 12-17-2023 End: 12-17-2023 Patient encounter procedure 12/17/2023 1:45 PM EDT Office Visit [facility] [address] [place] [address] Freddie Delgado APRN-CNP [address] [place] [address], [facility] [place] [address] [facility] Start: 12-10-2023 End: 12-10-2023 Patient encounter procedure 12/10/2023 2:20 PM EDT Routine [facility] [address] [place] [phone] Eliazar Castaneda, [address] [place] [address] [facility] Start: 11-20-2023 End: 11-20-2023 Patient encounter procedure 11/20/2023 8:00 AM EST Appointment [facility] - Ultrasound [address] [place] [address] [facility] Start: 11-12-2023 End: 11-12-2024 US for US OB ANATOMY SINGLE W US OB CERVICAL LENGTH Imaging Routine Screening, , for anatomic survey Expected: 11/12/2023 (Approximate), Expires: 11/12/2024 [facility] Comment on above: Expected: 11/12/2023 (Approximate), Expires: 11/12/2024 Start: 10-01-2023 Behavioral Health Screening Behavioral Health Screening [facility] Start: 10-01-2023 Depression Assessment Depression Ass essment [facility] Start: 06-01-2023 Covid-19 Vaccine ( season) Covid-19 Vaccine ( season) [facility] Start: 06-01-2023 Influenza [facility] Start: 05-03-2023 Screening for malign ant neoplasm of cervix Pap Smear [facility] Start: 03-19-[address] [facility] Start: 06-02-2020 [facility] Work Phone: Start: 06-01-2020 Influenza vaccination Flu vaccine (# 1) [place], [place] Start: 12-02-2019 Dental Comp Exam [facility] Work Phone: Start: 11-17-2019 [facility] Work Phone: Start: 10-21-2019 Lipid [facility] Work Phone: Start: 10-14-2019 [facility] Work Phone: Comment on above: Note: Please make a referral to: Start: 09-16-2019 Dental Comp Exam [facility] Work Phone: Start: 08-25-2019 Medical Establ ished Patient [facility] Work Phone: Start: 08-20-2019 Urine Pregnanc y Test, In House Health [facility] Work Phone: Start: 2018 Screening for malign ant neoplasm of cervix HPV Testing [facility] Start: 2009 Screening for malign ant neoplasm of cervix [facility] Start: 2007 DTaP/Tdap/Td vaccine (1 - Tdap) DTaP/Tdap/Td vaccine (1 - Tdap) [place], [place] Start: 2007 Hepatitis B Vaccine (1 of 3 - + 3-dose series) Hepatitis B Vaccine (1 of 3 - + 3-dose series) [facility] Start: 2006 Adult BMI Follow Up Plan Adult BMI Follow Up Plan [facility] Start: 2006 Annual PCP Team [employer] Operator lorne Disease Visit Annual PCP Team Chronic Disease Visit [facility] Start: 2006 Hepatitis C screening Hepatitis C Sc reening [facility] Start: 2006 HIV screening HIV Screening [facility] Start: 2006 Spirometry Spirometry [facility] Start: 2003 HIV screening HIV screen Sil Hartley [place], [place] Start: 1989 Varicella vaccine (1 of 2 - 2-dose childhood series) Varicella vaccine (1 of 2 - 2-dose childhood series) [place], [place] Adjt tis trns/reargm t f/c/c/m/n/a/g/h/f 10sqcm/< TRANSFER / REARRANGEMENT ADJACENT TISSUE FACE/NECK DEFECT 10 SQ CM OR LESS Malignant melanoma of skin (HCC) [facility] Alpha fetoprotein, maternal Alpha fetoprotein, maternal Lab Routine Second trimester Ordered: 11/12/2023 [facility] Work Phone: Comment on above: Ordered: 11/12/2023 Bx/exc lymph node op en deep cervical node BIOPSY NODE CERVICAL NECK Malignant melanoma of skin (HCC) [facility] A60 End: 05-03-2020 C.trachomatis N.gonorrhoeae DNA, Thin Prep C.trachomatis N.gonorrhoeae DNA, Thin Prep Microbiology Routine Once for 1 Occurrences starting 05/03/2020 until 05/03/2020 [place] Comment on above: Once for 1 Occurrenc es starting 05/03/2020 until 05/03/2020 C.trachomatis N.gonorrhoeae DNA, Thin Prep C.trachomatis N.gonorrhoeae DNA, Thin Prep Microbiology Routine 05/03/2020 7:32 AM EDT [place], [place] Excision malignant lesion f/e/e/n/l >4.0 cm EXCISION MALIGNANT LESION FACE OVER 4.0 CM Malignant melanoma of skin (HCC) [facility] A60 Inj radioactive trac er for id of sentinel node INJECTION PROCEDURE RADIOACTIVE TRACER FOR IDENTIFICATION OF SENTINEL NODE Malignant melanoma of skin (HCC) [facility] Intraop sentinel lym ph node id w/dye injection INTRAOPERATIVE ID OF SENTINEL LYMPH NODE(S) INCL'D INJECTION OF NON-RAD DYE WHEN PERFORMED Malignant melanoma of skin (HCC) [facility] End: 02-02-2025 NM Lymph node Views NM LN IMAGING MELANOMA Radiology Routine Malignant melanoma of skin (HCC) 1 Occurrences starting 01/06/2024 until 02/02/2025 [facility] Work Phone: Comment on above: 1 Occurrences starti ng 01/06/2024 until 02/02/2025 Patient Education Hiatal Hernia (DC) [facility] Work Phone: [facility] PLASTICS A60 Immunizations Immunization Date Immunization Notes Care Provider Maryuri gómez 05-11-2023 influenza virus vaccine, unspecified formulation Katarina Antonio [facility] Work Phone: [employer] [facility] 07-16-2022 SARS-COV-2 (COVID-19 ) vaccine, mRNA, spike protein, LNP, bivalent, PF Dionne BRAN Work Phone: [facility] 01-24-2018 tetanus toxoid, redu camden diphtheria toxoid, and acellular pertussis vaccine, adsorbed Dionne BRAN Work Phone: [facility] Payers Date Payer Category Payer Self-pay 2022 Medicaid [id number] 2019 Unknown 1 - [facility] [id number] [id number] 2017 Unknown [id number] 1988 Unknown [id number] 2.16.84 0.1.005845.3.579.2.593 1988 Unknown [id number] 2.16.84 0.1.609845.3.579.2.593 1988 Unknown [id number] 2.16.84 0.1.604843.3.579.2.593 1988 Unknown [id number] 2.16.84 0.1.062047.3.579.2.593 1988 Unknown [id number] 2.16.84 0.1.432435.3.579.2.593 1988 Unknown [id number] 2.16.84 0.1.471314.3.579.2.593 1988 Unknown [id number] 2.16.84 0.1.495726.3.579.2.593 1988 Unknown [id number] 2.16.84 0.1.269296.3.579.2.593 1988 Unknown [id number] 2.16.84 0.1.769616.3.579.2.593 1988 Unknown [id number] 2.16.8 40.1.705670.3.579.2.1285 1988 Unknown [id number] 2.16.8 40.1.336756.3.579.2.1285 1988 Unknown [id number] 2.16.8 40.1.858908.3.579.2.1285 1988 Unknown [id number] 2.16.8 40.1.854980.3.579.2.1285 1988 Unknown [id number] 2.16.8 40.1.448627.3.579.2.1285 1988 Unknown [id number] 2.16.84 0.1.038702.3.579.2.1285 1988 Unknown [id number] 2.16.8 40.1.337796.3.579.2.1285 1988 Unknown [id number] 2.16.8 40.1.948010.3.579.2.1285 1988 Unknown [id number] 2.16.84 0.1.236219.3.579.2.1258 1988 Unknown [id number] 2.16.84 0.1.527720.3.579.2.9 1988 Unknown [id number] 2.16.84 0.1.278943.3.579.2.1258 1988 Unknown [id number] 2.16.84 0.1.909862.3.579.2.1259 1988 Unknown [id number] 2.16.84 0.1.781164.3.579.2.1259 1988 Unknown [id number] 2.16.84 0.1.917936.3.579.2.1259 1988 Unknown [id number] 2.16.840 .1.995614.3.579.2.1259 1959 Medicaid [id number] 2. 16.840.1.000230.19 Self-pay [id number] 2.16.840 .1.977209.3.140.1.00362.5.4 Unknown [employer] [id number] Unknown [id number] 2.16.8 40.1.658259.3.579.2.531 Unknown [id number] 2.16.8 40.1.751005.3.579.2.531 Social History Date Type Detail Facility Assertion Alcohol consumpt ion screening (procedure) [facility] Work Phone: Assertion [facility] [facility] Assertion Finding of alcoh ol intake (finding) [facility] Work Phone: Assertion Sexually active (finding) [facility] Work Phone: Assertion Gender identity finding (finding) [facility] Work Phone: Assertion Finding of sexua l orientation (finding) [facility] Work Phone: Tobacco smoking status Unknown if ever smoked [facility] Assertion Emotional stress (finding) [facility] Work Phone: Start: 1990 [facility] [place] [place] Assertion Contraception (finding) [facility] Work Phone: Start: 09-10-2023 End: 01-21-2024 Sex Assigned At [facility] Start: 1990 Sex Assigned At Female [facility] Start: 04-05-2022 End: 12-26-2023 Tobacco smoking status NHIS Never smoked tobacco [facility] Start: 04-05-2022 End: 12-26-2023 Tobacco use and exposure Smokeless tobacco non-user [facility] Start: 10-10-2023 End: 12-17-2023 Alcohol intake Ex-drinker (finding) [facility] Start: 09-10-2023 End: 01-21-2024 History of Social function [facility] How hard is it for you to pay for the very basics like food, housing, medical care, and heating Very hard [facility] Start: 07-12-2023 [facility] Start: 11-12-2023 Alcohol intake Lifetime non-d rhys (finding) [facility] Start: 03-09-2023 Education [facility] Start: 03-09-2023 Alcohol Comment Caffeine intak e: 1-2 cups per day coffee, pop [facility] Start: 12-26-2023 End: 01-21-2024 Alcohol intake Current drinker of alcohol (finding) [facility] NEGATED: Highlighted row Assertion He has not had 5 or more drinks in a day within the past year. [facility] Work Phone: NEGATED: Highlighted row Assertion Exposure to pollution (event) [facility] Work Phone: NEGATED: Highlighted row Assertion Tobacco user (finding) [facility] Work Phone: NEGATED: Highlighted row Assertion Current drinker of alcohol (finding) [facility] Work Phone: NEGATED: Highlighted row Assertion Finding relating to drug misuse behavior (finding) [facility] Work Phone: Goals Date Patient Goal Desired Activity /State Personal health goal Mental Status Date Assessment Result Facility Cognitive function Severe recurr ent major 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 Thanks [facility] 01-25-2024 Miscellaneous Notes Pt is not able to make the appt on 02/11; amina wondering if this should be on March 14 instead? Thanks documented in this encounter [facility] 01-24-2024 Telephone encounter Note Vy is scheduled for her CT scan on 02/21 at 11am. She is scheduled for her labwork still, on 02/19. I spoke with Vy and she is in agreement. Angela Arthur [facility] 01-24-2024 Miscellaneous Notes Vy is scheduled for her CT scan on 02/21 at 11am. She is scheduled for her labwork still, on 02/19. I spoke with Vy and she is in agreement. Angela Arthur Clerical: Please call pt to schedule CT [...] were not included. documented in this encounter [facility] 01-24-2024 Telephone encounter Note Clerical: Please call pt to schedule CT scans. Brandon Churchill RN [facility] Work Phone: 01-24-2024 Telephone encounter Note It's ok to move up - but I'd want to know closer to delivery (33 weeks - 34 weeks) because then there won't be a need for additional scans later. Labs are to be done prior to CT. [facility] 01-24-2024 Telephone encounter Note Images from the [...] CT ahead of 02/19? Brandon Churchill RN [facility] 01-24-2024 Telephone encounter Note Is the lab [...] doesn t seem like enough time. Vy Nguyenk: Please advise Lindsay Murray RN [facility] 01-23-2024 Telephone encounter Note We won's be doing scans for 4 weeks.... that works out to be around 33 weeks gestation Does that sound right? (February 19) Thanks, louisa. T [facility] 01-23-2024 Telephone encounter Note Pt calls regarding CT scans. Please place orders. Thanks! Brandon Churchill, RN T [facility] 01-22-2024 Telephone encounter Note 01/22/2024 [facility] Pt called and identified ~ 12:30 pm. [...] known. All questions answered. Ana Peoples MD [facility] 01-22-2024 Miscellaneous Notes 01/22/2024 [facility] Pt called and identified ~ 12:30 pm. [...] Ana Peoples MD documented in this encounter [facility] 01-22-2024 Note HNO ID: [id number] Author: ANA PEOPLES MD Service: ? Author Type: Physician Type: Progress Notes Filed: 01/22/2024 11:18 Note Text: MATERNAL MEDICINE CONSULT SERVICE DATE: January 22, 2024 SERVICE TIME: 11:12 AM REQUESTING PROVIDER: Sarah Subjective HISTORY OF THE PRESENT ILLNESS: Vy Mckeon [...] Fransico Sharp MD [facility] in [place], [place]: Eliazar Castaneda MD The plan is for wide local excision with reconstruction, which may take multiple trips to the OR. The OR plan involves radioactive tracer for sentinal node She has not been imaged for staging. She comes to [facility] today for discussion on when to deliver. [...] previa antepartum in second trimester Overview 01/21/2024 [facility] Previa resolved on US today. Placenta > 2cm away from the cervix. Ana Peoples MD Other Visit Diagnoses Malignant melanoma of skin (HCC) I spent 70 minutes in the visit, with more than 50% of the total vzfj-cl-hpnu time of the visit in counseling / coordination of care. I shared my findings and recommendations via the shared medical record or via the mail to the referring provider. Ana Peoples MD [facility] 01-22-2024 Telephone encounter Note Images from the original note were not included. T [facility] 01-22-2024 History of Present illness Narrative MATERNAL [...] Fransico Sharp MD [facility] in [place], [place]: Eliazar Castaneda MD The plan is for wide local excision with reconstruction, which may take multiple trips to the OR. The OR plan involves radioactive tracer for sentinal node She has not been imaged for staging. She comes to [facility] today for discussion on when to deliver. [...] previa antepartum in second trimester Overview 01/21/2024 [facility] Previa resolved on US today. Placenta > 2cm away from the cervix. Ana Peoples MD Other Visit Diagnoses Malignant melanoma of skin (HCC) I spent 70 minutes in the visit, with more than 50% of the total bolg-eg-icyf time of the visit in counseling / coordination of care. I shared my findings and recommendations via the shared medical record or via the mail to the referring provider. Ana Peoples MD documented in this encounter [facility] 01-18-2024 Miscellaneous Notes Called pt, verified name [...] L Crowley MA documented in this encounter [facility] 01-10-2024 Miscellaneous Notes Estrogen Gene Test msg was sent to patient asking for call back to this coordinator to schedule MFM consultation. documented in this encounter [facility] 01-09-2024 Miscellaneous Notes Reached out to patient. Instructions provided to see a maternal medicine specialist within the [facility] per Dr. Sharp. This nurse explained that the multidisciplinary team will need frequent communications in arranging the plan of care, and staying in one healthcare system will help facilitate planning. Patient called that she is seeing Maternal Med, in her area and was questioning does she need to see one at the [facility]? She is asking for a call.. she is very nervous documented in this encounter [facility] 01-04-2024 Instructions Valerie Bedoya, BRITNEY - 01/04/2024 3:21 PM EDT PLAN: - Photos taken and uploaded to chart today via [employer] - Pathology re-read to be obtained - Surgical plan is for resection of left upper lip melanoma, reconstruction with local tissue rearrangement, and a sentinel lymph node biopsy - Surgery at [facility] or [facility]. Likely plan is to wait for surgical intervention until after 36 weeks . - Pre op clearance (PACC) prior to surgery for clearance to receive general anesthesia; must be done at a [facility] location - Nuclear medicine appointment at [facility] the morning of surgery - Post op 7-10 days with Tana Cervantes APRN.SALAD BAR CLERK - Consult placed to Maternal Medicine (MFM) for risk assessment and guidance: call [phone] to schedule. - Recommend regular dermatology follow-up for FBSE - Q3 months for 2 years, Q6 months for 5 years and Q1 year for the rest of his/her life Our ophthalmology surgical technician will contact you to set up all surgical appointments: pre op (PACC) prior to surgery, nuclear medicine the morning of surgery, surgery itself, and a post op visit about 7-10 days after surgery with the team's nurse practitioner, Tana. Follow up prior to surgical date: around 36-37 weeks or after delivery. Please notify us of [facility]'s recommendations. Please MyChart message or call the office with questions/concerns. documented in this encounter [facility] 12-28-2023 Note HNO ID: [id number] Author: FRANSICO SHARP MD Service: ? Author Type: Physician Type: Progress Notes Filed: 01/06/2024 09:42 Note Text: DATE: January 03, 2024 CC: New Melanoma Patient Referring Physician: Margarita Kim MD at [facility] in [place] HPI: Vy Mckeon is a 33 year [...] 400 mg by mouth. omeprazole magnesium (ACID LOOM FIXER, OMEPRAZOLE, ORAL) Take by mouth as directed. 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 The lesion measures 1 cm in diameter. Photos taken, see [facility] Get Images LABS: Pathology Report - EXTERNAL [...] taken and uploaded to chart today via PublicBeta - Pathology re-read to be obtained - Surgical plan is for resection of left upper lip melanoma, reconstruction with local tissue rearrangement, and a sentinel lymph node biopsy - Surgery at [facility] or . Likely plan is to wait for surgical intervention until after 36 weeks . - PACC prior to surgery - Nuclear medicine appointment at [facility] the (more content not included)... [facility] 12-28-2023 History of Present illness Narrative Images from the original note were not included. DATE: January 03, 2024 CC: New Melanoma Patient Referring Physician: Margarita Kim MD at Dermatology [facility] in [place] HPI: Vy Mckeon is a 33 year [...] 400 mg by mouth. omeprazole magnesium (ACID LOOM FIXER, OMEPRAZOLE, ORAL) Take by mouth as directed. 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 The lesion measures 1 cm in diameter. Photos taken, see [facility] Get Images LABS: Pathology Report - EXTERNAL [...] taken and uploaded to chart today via PublicBeta - Pathology re-read to be obtained - Surgical plan is for resection of left upper lip melanoma, reconstruction with local tissue rearrangement, and a sentinel lymph node biopsy - Surgery at [facility] or . Likely plan is to wait for surgical intervention until after 36 weeks . - PACC prior to surgery - Nuclear medicine appointment at [facility] the morning of surgery - Post op 7-10 days with Tana Cervantes APRN.SALAD BAR CLERK - Consult placed to [facility] for risk assessment and guidance: call [phone] to schedule. - Recommend regular dermatology follow-up for FBSE - Q3 months for 2 years, Q6 months for 5 years and Q1 year for the rest of his/her life - Patient follows with OBGYN Dr. Castaneda in [place], [place] Follow up after 36 weeks of and with [facility]'s recommendations. The patient is seen and examined by Dr. Sharp and the following reflects his service. 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 While I believe this to be a [...] Fransico Sharp MD documented in this encounter [facility] 12-26-2023 Note HNO ID: [id number] Author: USMAN GOLDBERG MD Service: ? Author Type: Physician Type: Progress Notes Filed: 12/27/2023 12:46 Note Text: NAME: Vy Mckeon [facility] NO.: [id number] DATE OF SERVICE: December 26, 2023 (Krystal) [...] 400 mg by mouth. omeprazole magnesium (ACID LOOM FIXER, OMEPRAZOLE, ORAL) Take by mouth as directed. PNV no.95/ferrous fum/folic ac ( ORAL) Take by mouth as directed. LABORATORY VALUES: WBC (k/uL) Date Value 12/26/2023 9.72 RBC (m/uL) Date Value 12/26/2023 3.99 Hemoglob (more content not included)... [facility] 12-17-2023 History of Present illness Narrative Subjective Patient ID: Vy Mckeon is a 33 y.o. female. FRANDY Mcclellan presents to the office for follow up.She was last seen with continued depression and anxiety and had stopped taking Zoloft, hydroxyzine and trazodone because she was found to be . She is 24 weeks along in her with Placenta previa. Last CONVENTION SERVICES MANAGER visit 12/11/23 with . carrier screening result [...] not have morning sickness. Lab work from [facility] 12/10 pre-marcos visit RBC-3.72, HGB 11.2, HCT 34.2. She [...] normal. Behavior: Behavior normal. Assessment/Plan Follow-up with CONVENTION SERVICES MANAGER for follow-up on hematology result showing minimally [...] for sleep. Note completed with assistance of PICCOLOIST student. GIOVANNI Darling 12/17/23 1538 documented in this encounter [facility] 12-17-2023 Miscellaneous Notes Disclaimer: This note [...] legal medical record. documented in this encounter [facility] 12-17-2023 Progress note Formatting of t [...] a part of the legal medical record. [facility] 12-07-2023 History of Present illness Narrative Summary: FOB carrier screening results Called Vy to let her know that FOB's carrier screening result for GJB2-related disorders is negative. The is low risk to be affected with this condition. Vy understood and had no additional questions. I encouraged her to reach out if anything comes up. documented in this encounter [facility] 11-20-2023 History of Present illness Narrative Video Visit via Real-time Synchronous Audiovisual Provider Location: [facility] MATERNAL- MEDICINE AT [place] [id number] [facility], [address] [place] [address] Patient Location: Other Patient Location Core Measures Abstractor: None Video Visit Consent Statement: I discussed [...] that there are some limitations compared to lyrt-mm-acfi evaluations. We elected to proceed. REASON FOR [...] for nausea or vomiting., Disp: , Rfl: [id number] 29-1-400 mg combo pack,tablet & cap,, Take by mouth., Disp: , Rfl: sertraline [...] TESTS AND ULTRASOUND REPORTS: Referral records and [facility] chart were reviewed Pertinent Ultrasound findings are see formal ultrasound report. Orders Only on 11/13/2023 Component Date Value Ref Range Status Unlisted lab test 10/25/2023 see scanned report Final HABITS: Patient activity no restrictions, diet no restrictions PHYSICAL EXAMINATION: LMP 06/28/2023 Well-appearing in no distress. Respirations not labored, speaking comfortably in full sentences Gravid abdomen OVERALL ASSESSMENT -Vy Mckeon is a pleasant 33 y.o. at [...] patient is in complete care of her outside sales executive. Patient does have ultrasound and office visit scheduled with us. Thank you for allowing me to participate in the care of Vy Mckeon. If there any questions please do not hesitate to contact us. Fidencio Rojas MD Maternal- Medicine [facility] [address] [place] [address] [facility], the CDC, and other organizations representing maternal and public health professionals recommend that , , and lactating people and those considering receive the COVID-19 vaccination. Vaccination is the best method to reduce maternal and complications of SARS-CoV-2 infection. This document was created with Cam[employer] technology. Though I make every effort to [...] continue to be followed by the primary outside sales executive or primary care provider. Note to patient: [...] of the practitioner. [facility] History of Present illness Narrative Reason for Appointment: Patient ID: Vy Mckeon is a 33 y.o. female who presents for Routine Visit Patient presents today for Return OB appointment. Current Medications: has a current medication list which includes the following prescription(s): valacyclovir. Medical History: Active Ambulatory Problems Diagnosis Date Noted Attention deficit hyperactivity disorder (CMS/HCC) 02/13/2023 Bipolar disorder, most recent episode depressed (CMS/HCC) 02/13/2023 Depression (CMS/HCC) 02/13/2023 Generalized anxiety disorder (CMS/HCC) 02/13/2023 Insomnia 02/13/2023 Mild episode of recurrent major depressive disorder (HCC) (CMS/HCC) 02/13/2023 Mild intermittent asthma without complication (CMS/HCC) 02/13/2023 Asthma exacerbation, mild (CMS/HCC) 02/13/2023 Mild persistent asthma with (acute) exacerbation (CMS/HCC) 02/19/2023 Second trimester 10/08/2023 AMA (advanced maternal age) primigravida 35+, unspecified trimester 10/08/2023 Resolved Ambulatory Problems Diagnosis Date Noted No Resolved Ambulatory Problems Past Medical History: Diagnosis Date ADHD (attention deficit hyperactivity disorder) (CMS/HCC) Allergies Anxiety Asthma (CMS/HCC) Bipolar disorder (CMS/HCC) [...] obtained without difficulty and patient was given [facility] order to have obtained. Follow Up: Patient is to return to our office in 4 weeks for routine OB appointment Documented by Dana Farris LPN on behalf of: SHANT España documented in this encounter [facility] 11-12-2023 History of Present illness Narrative Summary: MOB carrier screening results Called and discussed carrier screening results with Vy. 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 We discussed the natural history and etiology of the condition. I recommend FOB carrier screening if he's available. She understood and had no additional questions. She will reach out to [facility] to get the necessary info needed for me to order his carrier screening (full name, , phone number, email, health insurance info). She requests the kit be sent to her home address. I will be on the lookout for an email from her with his information. I encouraged the patient to call back with any additional questions or concerns. documented in this encounter [facility] 10-29-2023 History of Present illness Narrative [...] completed between 11/10-11/17. documented in this encounter [facility] 10-22-2023 History of Present illness Narrative Summary: M Genetic Counseling Note Provider at different site/location than patient. I confirmed the patient is located in the [facility]. Vy Mckeon is currently at home and provider at remote site. The patient consented to be treated electronically via this form of telemedicine. This visit was not related to an office visit or procedure in the past 7 days, and in-office follow up is not recommended in the next 24 hours. Video Visit via Real-time Synchronous Audiovisual Provider Location: [facility] MATERNAL- MEDICINE AT [address] [address] Patient Location: Patient's home Patient Location Core Measures Abstractor: None Video Visit Consent Statement: I discussed [...] that there are some limitations compared to nlii-cg-ivaq evaluations. We elected to proceed. Name: Vy Mckeon : 1990 Date of Visit: 10/22/2023 Email: [email or web address] Preferred contact method: email Partner's Name: Bogdan Age: 32 Requesting Physician: Eliazar Castaneda DO [address], [place] [address] Reason for Referral: Vy Mckeon is a 33 y.o. female who presented to [facility] Tele[facility]icine [facility]. Vy is here at [...] Screen: YES - low risk Performing lab: [facility] (UNITY Screen) Conditions screened: Trisomy 13, Trisomy [...] of the medical records and evaluation by medical office specialist of the affected individual would be recommended. [...] age I personally spent 25 minutes in marn-bn-xotu time with this patient. I provided genetic [...] call or email their genetic counselor at [phone] or [email or web address] if any additional questions or concerns should arise. TAMMY Soto Licensed, Certified Genetic Counselor documented in this encounter [facility] 05-29-2023 Evaluation note Encounter Date Diagnosis Assessment Notes May, Thrush (ICD-10 - B37.0) Continue home medications as prescribed. Use the nystatin mouthwash as prescribed, swish and swallow. Follow-up with your family physician if no improvement in 2 to 3 days [facility] Other 06-19-2023 Procedure [facility]05-15-2023 Evaluation note* Encounter Date Diagnosis Assessment Notes [...] educated on the importance of PPI optimization [facility] Other 05-10-2023 Evaluation note* Encounter Date Diagnosis [...] January, Other Contusion mater ial was printed [facility] Other 08-23-2022 NoteOPERATIVE NOTE OPERATION DATE: 05/23/2022 PROCEDURE: Suction D AND C. PREOPERATIVE DIAGNOSIS: Missed . POSTOPERATIVE DIAGNOSIS: Missed . ANESTHESIA: General. SURGEON: Eliazar Castaneda D.O. PROFESSIONAL ENGINEER: None. FINDING: Products of conception. SPECIMEN: Products [...] products of conception were removed using an 8-Armenian suction curette. Excellent hemostasis was noted. The patient tolerated the procedure well. Sponge, lap, and needle counts were correct x 2. All instruments were then removed from the patient's vagina. The patient was taken to the Recovery Room in stable condition. [facility] Includes: Assessments for all patient encounters Findings Encounter Date Depressive disorder [facility] with Emilee CORDON 03/29/2020 Generalized anxiety disorder [facility] with Emilee CORDON 03/29/2020 Dysthymic disorder BH Established Patie nt with Bobbi Colon [facility] 10/14/2019 Generalized anxiety disorder BH Establis hed Patient with Bobbi Colon [facility] 10/14/2019 Z68.24 - Body mass index (BM I) 24.0-24.9 adult Medical Established Patient with Candace Grossman SALAD BAR CLERK 10/14/2019 F34.1 - Dysthymic disorder BH Establishe d Patient with Bobbi Colon [facility] 09/04/2019 Generalized anxiety disorder BH Establis hed Patient with Bobbi Colon [facility] 09/04/2019 Body mass index Medical Established Patient with Candace Houstonen SALAD BAR CLERK 09/04/2019 Diabetes Risk Test Score was 0 score 09/04/2019 Medical Established Patient with Candace Dianelys SALAD BAR CLERK 09/04/2019 Body mass index Nurse Visit with Candace Dianelys P 08/19/2019 Diabetes Risk Test Score was 0 score 08/19/2019 Nurse Visit with Candace Dianelys [facility] 08/19/2019 Generalized anxiety disorder BH Establis hed Patient with Bobbi Colon [facility] 07/28/2019 Severe recurrent major depre 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 features Established Patient with Bobbi Colon [facility] 07/28/2019 AUDIT alcohol use disorders identification test was six 07/28/2019 Medical New Patient with Candace Grossman SALAD BAR CLERK 07/28/2019 Diabetes Risk Test Score was 0 score 07/28/2019 Medical New Patient with Candace Grossman [facility] 07/28/2019 ZAN-7 score was 21 07/28/2019 Medical Ne w Patient with Candace Grossman [facility] 07/28/2019 PHQ-9: total score was 21 07/28/2019 Med ical New Patient with Candace Grossman [facility] 07/28/2019 Z68.22 - Body mass index (BM I) 22.0-22.9 adult Medical New Patient with Candace Grossman SALAD BAR CLERK 07/28/2019 [facility] Work Phone: Evaluation noteNo assessment information available [facility] Work Phone: Evaluation note* Diagnosis Onset Date Resolution Status GERD (gastroesophageal reflux disease) acute [facility] Work Phone: Evaluation note* Diagnosis Multigravida of advanced maternal age in second trimester- Primary Family history of autism Family history of mental disorder Family history of psychiatric condition [facility] Diagnosis Multigravida of advanced maternal age in second trimester- Primary Family history of autism Family history of mental disorder Family history of psychiatric condition [facility] Diagnosis Second trimester state, incidental Vaginal discharge Leukorrhea, not specified as infective STD exposure Screening, , for anatomic survey Encounter for anatomic survey Chronic cluster headache, not intractable [facility]* Diagnosis Multigravida of advanced maternal age in second trimester Family history of autism Family history of mental disorder Family history of psychiatric condition [facility]* Diagnosis 20 weeks gestation of - Primary Placenta previa antepartum in second trimester Advanced maternal age in multigravida, second trimester [facility]* Diagnosis Placenta previa antepartum in second trimester- Primary Multigravida of advanced maternal age in second trimester [facility]* Diagnosis Nausea and vomiting, unspecified vomiting type- Primary Psychophysiological insomnia Persistent disorder of initiating or maintaining sleep [facility]* Diagnosis Malignant melanoma of skin (HCC)- Primary Melanoma of skin, site unspecified documented in this encounter [facility] note* Diagnosis Encounter for anatomic survey Encounter for anatomic survey- Primary [facility]* Diagnosis Encounter for anatomic survey documented in this encounter [facility] note* Diagnosis Malignant melanoma of skin (HCC) Melanoma of skin, site unspecified Skin cancer Unspecified malignant neoplasm of skin, site unspecified Placenta previa antepartum in second trimester * Assessment & Plan Note - Ana Peoples MD - 01/21/2024 1:34 PM EDT Associated Problem(s): Skin cancer 01/22/2024 MFM Pt is a 33 year old 29w4d with a new diagnosis of malignant melanoma located above the left upper lip. Oncologist Usman Goldberg MD Surgeon Fransico Sharp MD Pts general OBGYN in [place], [place]: Eliazar Castaneda MD The plan is for wide local excision with reconstruction, which may take multiple trips to the OR. The OR plan involves radioactive tracer for sentinal node She has not been imaged for staging. She comes to [facility] today for discussion on when to deliver. [...] [facility] if she goesat term and the CT does not show any spread.. We would need to find a way to get the placenta to [facility] for examination. I have left a message with Dr. Castaneda's office to call me back so that we can confirm ability to get placenta to [facility] for pathology should she deliver at [place]. Ana Peoples MD [facility] Diagnosis Malignant melanoma of skin (HCC)- Primary Melanoma of skin, site unspecified Malignant melanoma of skin (HCC) Melanoma of skin, site unspecified documented in this encounter [facility] general Narrative - Reported* Type Description Date Medical History anxiety Medical History depression Medical History ADHD Surgical History D&C [facility] Other History general Narrative - Reported* Type Description Date Medical History anxiety Medical History depression Medical History ADHD Surgical History D&C 2021 [facility] Other History of Present illness Narrative History of Present Illness not supported for this document type No History of Present Illness RecordedHealth [facility] [facility] Work Phone: Hospital Discharge instructions Additional [...] if you have any problems. -Office number [phone] Work Phone: Instructions Instructions not supported for this document type No Instructions RecordedHealth [facility] Work Phone: InstructionsNot on filedocumented in this encounter [facility]ructionsNot on filedocumented in this encounter [facility]ructionsNot on filedocumented in this encounter [facility] SystemPatient problem outcome Narrative Includes: Evaluations & Outcomes for active Goals No Outcomes [facility] Work Phone: reason for referral (narrative)No Reason for Referral [facility] Work Phone: reason for referral (narrative)* Diagnostic Procedure Only (Routine) - Closed Specialty Diagnoses / Procedures Referred By Kalina ghotra Referred To Contact [facility] Diagnoses Encounter for anatomic survey Procedures OBSTETRIC ULTRASOUND WHI US PREG UTERUS AFTER 1ST [place] [address] [place] [address] [facility] [address] [place] [address] Referral ID Status Reason Start Date Expiration Date V isits Requested Visits Authorized [id number] Closed Auto-Generate d Referral 01/21/2024 01/20/2025 1 1 [facility] for [facility] NarrativeUNCONTROLLED GERD//[facility] Other Reason for visit Narrative* Consultation (Routine) - Pending Review Specialty Diagnoses / Procedures Referred By Kalina ghotra Referred To Contact Maternal and Medicine Diagnoses Multigravida of advanced maternal age in second trimester Eliazar Castaneda R, DO [address] , [place] [address] [facility] [address] [place] [address] Referral ID Status Reason Start Date Expiration Date Visits Requested Visits Authorized [id number] Pending Review Specialty Services Required 10/10/2023 10/09/2024 1 1 [facility] Narrative* Diagnostic Procedure Only (Routine) - Closed Specialty Diagnoses / Procedures Referred By Contac t Referred To Contact [facility] Diagnoses Encounter for anatomic survey Procedures OBSTETRIC ULTRASOUND WHI US PREG UTERUS AFTER 1ST [place] [address] [place] [address] [facility] [address] [place] [address] Referral ID Status Reason Start Date Expiration Date V isits Requested Visits Authorized [id number] Closed Auto-Generate d Referral 01/21/2024 01/20/2025 1 1 [facility] Narrative - Reported Review of Systems not supported for this document type No Review of Systems [facility] Work Phone: Summary Purpose Family History No Family History Records Found Description Last Updated Paternal history of cardiovascular disor thuy 07/28/2019 Relationship Condition Age at Onset Recorded Date/T pia Not Specified Anxiety Unknown Chronic obstructive pulmonary disease Unk nown Advance Directives No Advanced Directives Records FoundDocuments on File Type Date Recorded 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 Advance Directives and Living Will 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 Advance Directive Response Recorded Date/ Time Advance Directives No February 07 3 3:12pm Reason for Referral Specialty Diagnoses / Procedures Referred By Contac t Referred To Contact Maternal and Medicine Diagnoses Placenta previa antepartum in second trimester Multigravida of advanced maternal age in second trimester Procedures US MFM with or without consult Fidencio Rojas MD [address] [place] [address] [facility] [address] [place] [address] Referral ID Status Reason Start Date Expiration Date V isits Requested Visits Authorized [id number] Pending Review 11/20/2023 11/19/2024 1 1 Specialty Diagnoses / Procedures Referred By Contac t Referred To Contact Diagnoses Malignant melanoma of skin (HCC) Procedures REFER TO PACC - PRE ANESTHESIA CONSULTATION CLINIC OFFICE/OUTPATIENT NEW HIGH MDM 60 MINUTES Fransico Sharp MD [address] [place] [address] Referral ID Status Reason Start Date Expiration Date Visits Requested Visits Authorized [id number] Authorized PCP Requested Referral 01/04/2024 01/03/2025 1 1 Specialty Diagnoses / Procedures Referred By Contac t Referred To Contact Diagnoses Malignant melanoma of skin (HCC) Procedures CONSULT TO MATERNAL MEDI OFFICE/OUTPATIENT NEW HIGH MDM 60 MINUTES Fransico Sharp MD [address] [place] [address] Referral ID Status Reason Start Date Expiration Date Visits Requested Visits Authorized [id number] Authorized PCP Requested Referral Auto-Generate d Referral 01/04/2024 01/03/2025 1 1 Specialty Diagnoses / Procedures Referred By Contac t Referred To Contact CT IMAGING Diagnoses Malignant melanoma of skin (HCC) Procedures CT CHEST W IVCON DIAGNOSTIC COMPUTED TOMOGRAPHY THORAX W/CONTRAST Usman Goldberg MD [address] [place] [address] [place] [address] Ct Imaging [place] [address] Referral ID Status Reason Start Date Expiration Date Visits Requested Visits Authorized [id number] Authorized Auto-Generat ed Referral 02/20/2024 02/21/2025 1 1 Specialty Diagnoses / Procedures Referred By Contac t Referred To Contact CT IMAGING Diagnoses Malignant melanoma of skin (HCC) Procedures CT NECK SOFT TISSUE W IVCON CT SOFT TISSUE NECK W/CONTRAST MATERIAL Usman Goldberg MD [address] [place] [address] [place] [address] Ct Imaging [id number] Referral ID Status Reason Start Date Expiration Date Visits Requested Visits Authorized [id number] Authorized Auto-Generat ed Referral 02/20/2024 02/21/2025 1 1 Assessments Findings Encounter Date Generalized anxiety disorder BH Establis hed Patient with Bobbi Colon [facility] 07/28/2019 Severe recurrent major depre 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 features Established Patient with Bobbi Colon [facility] 07/28/2019 AUDIT alcohol use disorders identification test was six 07/28/2019 Medical New Patient with Candace Grossman [facility] 07/28/2019 Diabetes Risk Test Score was 0 score 07/28/2019 Medical New Patient with Candace Houstonen [facility] 07/28/2019 ZAN-7 score was 21 07/28/2019 Medical Ne w Patient with Candace Grossman [facility] 07/28/2019 PHQ-9: total score was 21 07/28/2019 Med ical New Patient with Candace Grossman [facility] 07/28/2019 Z68.22 - Body mass index (BM I) 22.0-22.9 adult Medical New Patient with Candace Grossman [facility] 07/28/2019 Findings Encounter Date F34.1 - Dysthymic disorder Establishe d Patient with Bobbi Colon [facility] 09/04/2019 Generalized anxiety disorder Establis hed Patient with Bobbi Colon [facility] 09/04/2019 Body mass index Medical Established Patient with Candace Grossman [facility] 09/04/2019 Diabetes Risk Test Score was 0 score 09/04/2019 Medical Established Patient with Candace Grossman [facility] 09/04/2019 Body mass index Nurse Visit with Candace Dianelys [facility] 08/19/2019 Diabetes Risk Test Score was 0 score 08/19/2019 Nurse Visit with Candace Dianelys [facility] 08/19/2019 Generalized anxiety disorder BH Establis hed Patient with Bobbi Colon [facility] 07/28/2019 Severe recurrent major depre 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 features Established Patient with Bobbi Colon [facility] 07/28/2019 AUDIT alcohol use disorders identification test was six 07/28/2019 Medical New Patient with Candace Houstonen [facility] 07/28/2019 Diabetes Risk Test Score was 0 score 07/28/2019 Medical New Patient with Candace Houstonen [facility] 07/28/2019 ZAN-7 score was 21 07/28/2019 Medical Ne w Patient with Candace Grossman [facility] 07/28/2019 PHQ-9: total score was 21 07/28/2019 Med ical New Patient with Candacehalley Houstonen [facility] 07/28/2019 Z68.22 - Body mass index (BM I) 22.0-22.9 adult Medical New Patient with Candace Grossman [employer] 07/28/2019 Findings Encounter Date Dysthymic disorder BH Established Patie nt with Bobbi Colon [facility] 10/14/2019 Generalized anxiety disorder BH Establis hed Patient with Bobbi Colon [facility] 10/14/2019 Z68.24 - Body mass index (BM I) 24.0-24.9 adult Medical Established Patient with Candace Grossman [employer] 10/14/2019 F34.1 - Dysthymic disorder BH Establishe d Patient with Bobbi Colon [facility] 09/04/2019 Generalized anxiety disorder BH Establis hed Patient with Bobbi Colon [facility] 09/04/2019 Body mass index Medical Established Patient with Candace Grossman [facility] 09/04/2019 Diabetes Risk Test Score was 0 score 09/04/2019 Medical Established Patient with Candace Grossman [employer] 09/04/2019 Body mass index Nurse Visit with Candace Dianelys P 08/19/2019 Diabetes Risk Test Score was 0 score 08/19/2019 Nurse Visit with Candaec Dianelys [facility] 08/19/2019 Generalized anxiety disorder BH Establis hed Patient with Bobbi Colon [facility] 07/28/2019 Severe recurrent major depre 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 features Established Patient with Bobbi Colon [facility] 07/28/2019 AUDIT alcohol use disorders identification test was six 07/28/2019 Medical New Patient with Candace Grossman [facility] 07/28/2019 Diabetes Risk Test Score was 0 score 07/28/2019 Medical New Patient with Candace Grossman [facility] 07/28/2019 ZAN-7 score was 21 07/28/2019 Medical Ne w Patient with Candace Grossman [facility] 07/28/2019 PHQ-9: total score was 21 07/28/2019 Med ical New Patient with Candace Grossman [facility] 07/28/2019 Z68.22 - Body mass index (BM I) 22.0-22.9 adult Medical New Patient with Candace Grossman [facility] 07/28/2019 Findings Encounter Date Visit for: contraceptive management [facility] with Linnea Escobar [facility] 04/08/2020 Z68.24 - Body mass index (BM I) 24.0-24.9, adult [facility] with Linnea Escobar [employer] 04/08/2020 Depressive disorder Telebehavioral He alth with Emilee CORDON 03/29/2020 Generalized anxiety disorder [facility] with Emilee Sanford [facility] 03/29/2020 Dysthymic disorder Established Patie nt with Bobbi Colon [facility] 10/14/2019 Generalized anxiety disorder BH Establis hed Patient with Bobbileif Colon [facility] 10/14/2019 Z68.24 - Body mass index (BM I) 24.0-24.9 adult Medical Established Patient with Candacehalley Grossman [employer] 10/14/2019 F34.1 - Dysthymic disorder BH Establishe d Patient with Bobbileif Colon [facility] 09/04/2019 Generalized anxiety disorder BH Establis hed Patient with Bobbi Colon [facility] 09/04/2019 Body mass index Medical Established Patient with Candaec Grossman [facility] 09/04/2019 Diabetes Risk Test Score was 0 score 09/04/2019 Medical Established Patient with Candace Grossman [employer] 09/04/2019 Body mass index Nurse Visit with Candace ECHEVARRIA P 08/19/2019 Diabetes Risk Test Score was 0 score 08/19/2019 Nurse Visit with Candace Grossman [facility] 08/19/2019 Generalized anxiety disorder BH Establis hed Patient with Bobbi Colon [facility] 07/28/2019 Severe recurrent major depre 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 features Established Patient with Bobbi Colon [facility] 07/28/2019 AUDIT alcohol use disorders identification test was six 07/28/2019 Medical New Patient with Candace Grossman [facility] 07/28/2019 Diabetes Risk Test Score was 0 score 07/28/2019 Medical New Patient with Candace Grossman [facility] 07/28/2019 ZAN-7 score was 21 07/28/2019 Medical Ne w Patient with Candace Grossman [facility] 07/28/2019 PHQ-9: total score was 21 07/28/2019 Med ical New Patient with Candace Dianelys [facility] 07/28/2019 Z68.22 - Body mass index (BM I) 22.0-22.9 adult Medical New Patient with Candace Grossman [facility] 07/28/2019 Findings Encounter Date Body mass index Nurse Visit with Candace ECHEVARRIA P 08/19/2019 Diabetes Risk Test Score was 0 score 08/19/2019 Nurse Visit with Candace Grossman [facility] 08/19/2019 Generalized anxiety disorder BH Establis hed Patient with Bobbi Colon [facility] 07/28/2019 Severe recurrent major depre 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 features Established Patient with Bobbi Colon [facility] 07/28/2019 AUDIT alcohol use disorders identification test was six 07/28/2019 Medical New Patient with Candace Grossman [facility] 07/28/2019 Diabetes Risk Test Score was 0 score 07/28/2019 Medical New Patient with Candace Grossman [facility] 07/28/2019 ZAN-7 score was 21 07/28/2019 Medical Ne w Patient with Candace Grossman [employer] 07/28/2019 PHQ-9: total score was 21 07/28/2019 Med ical New Patient with Candace Grossman [facility] 07/28/2019 Z68.22 - Body mass index (BM I) 22.0-22.9 adult Medical New Patient with Candace Grossman [employer] 07/28/2019 Findings Encounter Date Overweight Women's [facility] with Candace Grossman [facility] 05/03/2020 Z68.24 - Body mass index (BM I) 24.0-24.9, adult [facility] with Candace Grossman [facility] 05/03/2020 Visit for: contraceptive management [facility] with Linnea Samaniegole [facility] 04/08/2020 Z68.24 - Body mass index (BM I) 24.0-24.9, adult Women's Health with Linnea Escobar [facility] 04/08/2020 Depressive disorder Telebehavioral He alth with Emilee Short [facility] 03/29/2020 Generalized anxiety disorder [facility] Emilee Short [facility] 03/29/2020 Dysthymic disorder Established Patie nt with Bobbi Colon [facility] 10/14/2019 Generalized anxiety disorder Establis hed Patient with Bobbi Colon [facility] 10/14/2019 Z68.24 - Body mass index (BM I) 24.0-24.9 adult Medical Established Patient with Candace Dianelys [facility] 10/14/2019 F34.1 - Dysthymic disorder Establishe d Patient with Bobbi Colon [facility] 09/04/2019 Generalized anxiety disorder BH Establis hed Patient with Bobbi Colon [facility] 09/04/2019 Body mass index Medical Established Patient with Candace Grossman [facility] 09/04/2019 Diabetes Risk Test Score was 0 score 09/04/2019 Medical Established Patient with Candace Dianelys [facility] 09/04/2019 Body mass index Nurse Visit with Candace Grossman P 08/19/2019 Diabetes Risk Test Score was 0 score 08/19/2019 Nurse Visit with Candace Grossman [facility] 08/19/2019 Generalized anxiety disorder BH Establis hed Patient with Bobbi Colon [facility] 07/28/2019 Severe recurrent major depre 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 features BH Established Patient with Bobbi Colon [facility] 07/28/2019 AUDIT alcohol use disorders identification test was six 07/28/2019 Medical New Patient with Candace Grossman [employer] 07/28/2019 Diabetes Risk Test Score was 0 score 07/28/2019 Medical New Patient with Candace Grossman [employer] 07/28/2019 ZAN-7 score was 21 07/28/2019 Medical Ne w Patient with Candace Grossman [employer] 07/28/2019 PHQ-9: total score was 21 07/28/2019 Med ical New Patient with Candace Grossman [employer] 07/28/2019 Z68.22 - Body mass index (BM I) 22.0-22.9 adult Medical New Patient with Candace Grossman [facility] 07/28/2019 Instructions Instructions not supported for this [...] section and content) DATE CREATED AUTHOR 03/26/2018 [facility] DATE CREATED AUTHOR AUTHOR'S ORGANIZ ATION 05/07/2020 [facility] DATE CREATED AUTHOR AUTHOR'S ORGANIZ ATION 02/10/2023 [facility] DATE CREATED AUTHOR AUTHOR'S ORGANIZ ATION 03/28/2023 [facility] DATE CREATED AUTHOR AUTHOR'S ORGANIZ ATION 12/18/2023 [facility] DATE CREATED AUTHOR AUTHOR'S ORGANIZ ATION 01/14/2024 [facility] DATE CREATED AUTHOR AUTHOR'S ORGANIZ ATION 01/27/2024 [facility] DATE CREATED AUTHOR AUTHOR'S ORGANIZ ATION 01/30/2024 [facility] DATE CREATED AUTHOR AUTHOR'S ORGANIZ ATION 01/31/2024 [facility] DATE CREATED AUTHOR AUTHOR'S ORGANIZ ATION 02/12/2024 [facility] d[facility] Specialists EPIC Evaluations & Outcomes [...] Consult Specialty Diagnoses / Procedures Referred By Contreal t Referred To Contact Diagnoses Malignant melanoma of skin (HCC) Procedures CONSULT TO MATERNAL MEDI OFFICE/OUTPATIENT [facility] MDM 60 MINUTES Fransico Sharp MD [address] [place] [address] Referral ID Status Reason Start Date Expiration Date V isits Requested Visits Authorized [id number] Closed PCP Requested Referral Auto-Generated Referral 01/04/2024 [...] Active NON STAFF Primary Care Provider Active [employer] Alley Attendant Relationship Specialty Start Date End Date Freddie Delgado APRN-[employer] PCP - General Nurse Practitioner 07/30/23 [employer] Attendant Relationship Specialty Start Date End Date [facility] PCP - General Nurse Practitioner 07/30/23 [employer] Attendant Relationship Specialty Start Date End Date [facility] PCP - General Nurse Practitioner 07/30/23 [employer]ley Attendant Relationship Specialty Start Date End Date [facility] PCP - General Nurse Practitioner 07/30/23 [employer]ley Attendant Relationship Specialty Start Date End Date [facility] PCP - General Nurse Practitioner 07/30/23 [employer] Attendant Relationship Specialty Start Date End Date [facility] PCP - General Nurse Practitioner 07/30/23 [employer]ley Attendant Relationship Specialty Start Date End Date [facility] PCP - General Nurse Practitioner 07/30/23 [employer]ley Attendant Relationship Specialty Start Date End Date Freddie Delgado [address] [place] [address] PCP - General Family Medicine 12/19/23 [employer] Alley Attendant Relationship Specialty Start Date End Date Danny Freddie [address] [place] [address] PCP - General Family Medicine 12/19/23 [employer] Alley Attendant Relationship Specialty Start Date End Date Danny Freddie [address] [place] [address] PCP - General Family Medicine 12/19/23 [employer] Alley Attendant Relationship Specialty Start Date End Date Freddie Delgado [address] [place] [address] PCP - General Family Medicine 12/19/23 Bowling Alley Attendant Relationship Specialty Start Date End Date Freddie Delgado [address] [place] [address] PCP - General Family Medicine 12/19/23 Bowling Alley Attendant Relationship Specialty Start Date End Date Freddie Delgado [address] [place] [address] PCP - General Family Medicine 12/19/23 Bowling Alley Attendant Relationship Specialty Start Date End Date Freddie Delgado [address] [place] [address] PCP - General Family Medicine 12/19/23 Bowling Alley Attendant Relationship Specialty Start Date End Date Freddie Delgado [address] [place] [address] PCP - General Family Medicine 12/19/23 Bowling Alley Attendant Relationship Specialty Start Date End Date Freddie Delgado [address] [place] [address] PCP - General Family Medicine 12/19/23 Bowling Alley Attendant Relationship Specialty Start Date End Date Freddie Delgado [address] [place] [address] PCP - General Family Medicine 12/19/23 Bowling Alley Attendant Relationship Specialty Start Date End Date Freddie Delgado [address] [place] [address] PCP - General Family Medicine 12/19/23 Bowling Alley Attendant Relationship Specialty Start Date End Date Freddie Delgado [address] [place] [address] PCP - General Family Medicine 12/19/23 Goals [...] or prosecute any alcohol or drug abuse patient.[facility] the event this information is protected by the Federal Confidentiality of Alcohol and Drug Abuse Patient Records regulations: The Federal rules restrict any use of the information to criminally investigate or prosecute any alcohol or drug abuse patient.[facility] Center[facility] the event this information is protected by the Federal Confidentiality of Alcohol and Drug Abuse Patient Records regulations: The Federal rules restrict any use of the information to criminally investigate or prosecute any alcohol or drug abuse patient.[facility] Center[facility] the event this information is protected by the Federal Confidentiality of Alcohol and Drug Abuse Patient Records regulations: The Federal rules restrict any use of the information to criminally investigate or prosecute any alcohol or drug abuse patient.[facility] Center[facility] the event this information is protected by the Federal Confidentiality of Alcohol and Drug Abuse Patient Records regulations: The Federal rules restrict any use of the information to criminally investigate or prosecute any alcohol or drug abuse patient.[facility] Center[facility] the event this information is protected by the Federal Confidentiality of Alcohol and Drug Abuse Patient Records regulations: The Federal rules restrict any use of the information to criminally investigate or prosecute any alcohol or drug abuse patient.[facility] Center[facility] the event this information is protected by the Federal Confidentiality of Alcohol and Drug Abuse Patient Records regulations: The Federal rules restrict any use of the information to criminally investigate or prosecute any alcohol or drug abuse patient.[facility] CenterIn the event this information is protected by the Federal Confidentiality of Alcohol and Drug Abuse Patient Records regulations: The Federal rules restrict any use of the information to criminally investigate or prosecute any alcohol or drug abuse patient.[facility] CenterIn the event this information is protected by the Federal Confidentiality of Alcohol and Drug Abuse Patient Records regulations: The Federal rules restrict any use of the information to criminally investigate or prosecute any alcohol or drug abuse patient.[facility] Center[facility] the event this information is protected by the Federal Confidentiality of Alcohol and Drug Abuse Patient Records regulations: The Federal rules restrict any use of the information to criminally investigate or prosecute any alcohol or drug abuse patient.[facility] Center[facility] the event this information is protected by the Federal Confidentiality of Alcohol and Drug Abuse Patient Records regulations: The Federal rules restrict any use of the information to criminally investigate or prosecute any alcohol or drug abuse patient.[facility] CenterIn the event this information is protected by the Federal Confidentiality of Alcohol and Drug Abuse Patient Records regulations: The Federal rules restrict any use of the information to criminally investigate or prosecute any alcohol or drug abuse patient.[facility] FOR RECORDS PERTAINING TO PATIENTS WHO ARE [...] BE BASED ON THE PRIMARY CLINICAL RECORDS. [employer] [facility]. provides no warranty or guarantee of the accuracy or completeness of information in this document.
[2024-02-14 15:07] VITALS: BP 130/81; PULSE 97
== END 2024-02-14 15:37 | disposition home or self-care (01) ==
LOC: FBCO 07:03 → FBC 14:54
PROVIDERS: Visit Provider Obstetrics & Gynecology
DX: O36.63X0 Maternal care for excessive fetal growth, third trimester, not applicable or unspecified (principal)
CPT/HCPCS: 59025

== ENCOUNTER 2024-02-18 09:37 | Outpatient (OUT) | payer MEDICAID, SELFPAY ==
[2024-02-18 14:52] VITALS: BP 135/77; PULSE 107
--- NOTE | 2024-02-18 15:09 | US_ITS ---
[address] [address] Patient Name: CRISTIAN DONALDSON MRN: [id number] date: 1990 Sex: F Assigned Patient Location: US Current Patient Location: US Accession/Order Number: [id number] Exam Date: 02/18/2024 15:30 Report Date: 02/19/2024 07:17 At the request of: DAVIN GREEN Procedure: US OB BPP w non-stress EXAMINATION: US OB BPP w non-stress HISTORY: EXCESSIVE GROWTH [id number] COMPARISON: Ultrasound OB biophysical 02/11/2024 TECHNIQUE: Ultrasound biophysical profile was performed in the radiology department. BREATHING MOVEMENTS: 2.0 GROSS BODY MOVEMENTS: 2.0 TONE: 2.0 QUALITATIVE AMNIOTIC FLUID VOLUME: 2.0 PRESENTATION: CEPHALIC HEART RATE: 140.6 bpm bpm. AMNIOTIC FLUID VOLUME: 13.2 cm GESTATIONAL AGE: 33 weeks 4 days CONCLUSION: Total biophysical profile score 8.0. Electronically authenticated by: BOBBI SIMONS Date: 02/19/2024 07:17
== END 2024-02-18 16:00 | disposition home or self-care (01) ==
LOC: US 09:37 → FBC 14:50
PROVIDERS: Visit Provider Obstetrics & Gynecology
DX: O36.62X0 Maternal care for excessive fetal growth, second trimester, not applicable or unspecified (principal); Z3A.33 33 weeks gestation of pregnancy
CPT/HCPCS: 76818

== ENCOUNTER 2024-02-21 07:25 | Outpatient (OUT) | payer MEDICAID, SELFPAY ==
--- OUTSIDE RECORDS SUMMARY | 2024-02-21 07:48 | XMS_ITS ---
Author Name Auto Generated Organization OHIP Support Name Relationship Address Phone [place] [address] [phone] WANGZAHIRA GRACIAYLE Next of Kin Unknown Unavailable KHRIS HOYT Next of Kin Unknown [phone] KIM WANGE Next of Kin Unknown [phone] [place] [address] [phone] WANG KIM Next of Kin Unknown Unavailable KHRIS HOYT Next of Kin Unknown [phone] ZAHIRA WANGYLEE Next of Kin Unknown [phone] [place] [address] [phone] KIM WANG Next of Kin Unknown Unavailable [place] [address] [phone] KIM WANG Next of Kin Unknown Unavailable [place] [address] [phone] WANGZAHIRA GRACIAYLE Next of Kin Unknown Unavailable KHRIS HOYT Next of Kin Unknown [phone] KIM WANGE Next of Kin Unknown [phone] [place] [address] [phone] WANG KIM Next of Kin Unknown Unavailable LAI KHRIS Next of Kin Unknown [phone] WANG WIL Next of Kin Unknown [phone] [place] [address] [phone] KATHLEEN KIM Next of Kin Unknown Unavailable [place] [address] [phone] KIM WANG Next of Kin Unknown Unavailable KHRIS HOYT Next of Kin Unknown [phone] WIL WANG Next of Kin Unknown [phone] [place] [id number] [phone] KIM WANG Next of Kin Unknown Unavailable KHRIS HOYT Next of Kin Unknown [phone] WIL WANG Next of Kin Unknown [phone] KHRIS HOYT Next of Kin Unknown [phone] WIL WANG Next of Kin Unknown [phone] Care Team Providers Care Farmworker Animal Name Role Phone NON STAFF Primary Care Unavailable Karan Beaulieu Attending Unavailabl e Karan Beaulieu Admitting Unavailabl e NORMA, ELIAZAR R Referring Unavailable VELAZQUEZ, FREDDIE Primary Care Unavailable PAZ, FIDENCIO Referring Unavailable VELAZQUEZ, FREDDIE Primary Care Unavailable PAZ, FIDENCIO Attending Unavailable VELAZQUEZ, FREDDIE Referring Unavailable VELAZQUEZ, FREDDIE Primary Care Unavailable VELAZQUEZ, FREDDIE Attending Unavailable VELAZQUEZ, FREDDIE Referring Unavailable VELAZQUEZ, FREDDIE Primary Care Unavailable LOBITO, LUJAN Attending Unavailable VELAZQUEZ, FREDDIE Referring Unavailable VELAZQUEZ, FREDDIE Primary Care Unavailable PAZ, FIDENCIO Attending Unavailable NORMA, ELIAZAR R Referring Unavailable VELAZQUEZ, FREDDIE Primary Care Unavailable MOUSSA, HIND NADIM Attending Unavailable NORMA, ELIAZAR R Referring Unavailable VELAZQUEZ, FREDDIE Primary Care Unavailable DEAN, CANDACE Admitting Unavailable DEAN, CANDACE Attending Unavailable VELAZQUEZ, FREDDIE Primary Care Unavailable LOBITO, LUJAN Referring Unavailable VELAZQUEZ, FREDDIE Primary Care Unavailable VELAZQUEZ, FREDDIE ADRIAN Primary Care Unavail able USMAN GOLDBERG Attending Unavailable USMAN GOLDBERG Referring Unavailable VELAZQUEZ, FREDDIE ADRIAN Primary Care Unavail able VELAZQUEZ, FREDDIE ADRIAN Primary Care Unavail able ANA PEOPLES Attending Unavailab le VELAZQUEZ, FREDDIE ADRIAN Primary Care Unavail able ANA PEOPLES Attending Unavailab FRANSICO Barber Referring Unavailable VELAZQUEZFREDDIE Muller Primary Care Unavail able FRANSICO SHARP Attending Unavailable NORMA, ELIAZAR Attending Unavailable BRONWYN, RADHA Attending Unavailable NORMA, ELIAZAR Attending Unavailable NORMA, ELIAZAR Attending Unavailable BRONWYN, RADHA Attending Unavailable NORMA, ELIAZAR Attending Unavailable PROBLEMS DATE TYPE CONDITION / CODE ATTENDING STATUS [facility] 01/29/2024 Unknown Decreased Movement / FREETEXT(AOF) CANDACE MORAN [facility] 01/25/2024 Unknown Malignant melano ma of unspecified part of face / C43.30(ICD-10) [facility] 01/25/2024 Unknown Low lying placen ta nos or without hemorrhage, second trimester / O44.42(ICD-10) [facility] 01/25/2024 Unknown Hagerman affected by other morphological and functional abnormalities of placenta / P02.29(ICD-10) [facility] 01/25/2024 Unknown Family history o f other mental and behavioral disorders / Z81.8(ICD-10) [facility] 01/25/2024 Unknown 30 weeks gestati on of / Z3A.30(ICD-10) [facility] 01/25/2024 Unknown Advanced Materna l Age / FREETEXT(AOF) [facility] 01/25/2024 Unknown Low lying placen ta nos or without hemorrhage, third trimester / O44.43(ICD-10) [facility] 01/25/2024 Unknown Low lying placen ta nos or without hemorrhage, unspecified trimester / O44.40(ICD-10) [facility] 01/25/2024 Unknown Malformation of placenta, unspecified, unspecified trimester / O43.109(ICD-10) [facility] 01/21/2024 Active Malignant melano ma of skin (HCC) / C43.9(ICD-10) ANA PEOPLES [facility] 01/21/2024 Active Encounter for fe hardik anatomic survey / Z36.89(ICD-10) ANA PEOPLES Active [facility] 07/30/2023 Unknown Psychophysiologi c insomnia / F51.04(ICD-10) LOBITO, [facility] 01/14/2024 Unknown Snoring / R06.83(ICD-10) LOBITO, [facility] 01/14/2024 Unknown Other hypersomni a / G47.19(ICD-10) LOBITO, [facility] 12/26/2023 Active Malignant melano ma of skin of lip (HCC) / C43.0(ICD-10) USMAN GOLDBERG [facility] 12/17/2023 Unknown wellness / UNK(Unknown) KERRY VELAZQUEZ [facility] 11/20/2023 Unknown Encounter for ot her specified screening / Z36.89(ICD-10) [facility] 11/20/2023 Unknown Encounter for an tenatal screening for cervical length / Z36.86(ICD-10) [facility] 11/20/2023 Unknown Complete placent a previa nos or without hemorrhage, unspecified trimester / O44.00(ICD-10) [facility] 10/22/2023 Unknown Supervision of darshan harper multigravida, second trimester / O09.522(ICD-10) [facility] 03/19/2023 Unknown Epigastric pain / CE(ICD-10) Karan Beaulieu [facility] 03/19/2023 Unknown Gastro-esophagea l reflux disease without esophagitis / K21.9(ICD-10) Karan Beaulieu [facility] PROCEDURES No Procedure Records Found RESULTS COMP METAB 2000 PNL SERPL Collected: 2:51 PM Status: F Source: [facility] REPOSITORY Order Comment: Specimen Type : BLOOD SPECIMEN Ordering Facility: [facility] Address: [address], [place] [address] TYPE CODE TESTS RESULT OUT OF RANGE REFERENCE UNITS LAB 2885-2(LOINC) Prot SerPl-mCnc 7.2 6.3-8.0 g/dL LAB 1751-7(LOINC) Albumin SerPl-mCnc 3.8 Low 3.9-4.9 g/dL LAB 21121-3(LOINC) Calcium SerPl-mCnc 10.1 8.5-10.2 mg/dL LAB 1975-2(LOINC) Bilirub SerPl-mCnc 0.2 0.2-1.3 mg/dL LAB 6768-6(LOINC) ALP SerPl-cCnc 161 High 34-123 U/L LAB 1920-8(LOINC) AST SerPl-cCnc 21 13-35 U/L LAB 1742-6(LOINC) ALT SerPl-cCnc 13 7-38 U/L LAB 2345-7(LOINC) Glucose SerPl-mCnc 85 74-99 mg/dL Result Comment: The [place] Diabetes Association (ADA) provides guidance for cutoff [...] Standards of Medical Care in Diabetes 2016, [place] Diabetes Association. Diabetes Care. 2016.39(Suppl 1). LAB 3094-0(LOINC) BUN SerPl-mCnc 6 Low 7-21 mg/ dL LAB 2160-0(LOINC) Creat SerPl-mCnc 0.61 0.58-0.96 mg/dL LAB 2951-2(LOINC) Sodium SerPl-sCnc 134 Low 136-144 mmol/L LAB 2823-3(LOINC) Potassium SerPl-sCnc 3.9 3.7-5.1 mmol/L LAB 2075-0(LOINC) Chloride SerPl-sCnc 103 97-105 mmol/L LAB 2027-(LOINC) CO2 SerPl-sCnc 21 Low 22-30 mmo l/L LAB 00725-0(LOINC) Anion Gap SerPl-sCnc 10 9-18 mmol/L LAB 17902-1(LOINC) Creatinine + eGFR Pnl SerPlBld 120 >=60 mL/min/1 .73m??? Result Comment: Estimated Gl omerular Filtration Rate (eGFR) is calculated using the 2020 CKD-EPI creatinine equation. This equation utilizes serum creatinine, sex, and age as parameters. The creatinine assay has traceable calibration to isotope dilution-mass spectrometry. Refer to KDIGO guidelines for clinical interpretation. In patients with unstable renal function, e.g. those with acute kidney injury, the eGFR may not accurately reflect actual GFR. Performed By: #### 76585-5, 2532-0 #### [facility] CLIA [id number] [address] [place] [address] 55[address] LDH SERPL-CCNC Collected: 2:51 PM Status: F Source: [facility] REPOSITORY Order Comment: Specimen Type : BLOOD SPECIMEN Ordering Facility: [facility] Address: [address] [place] [address] TYPE CODE TESTS RESULT OUT OF RANGE REFERENCE UNITS LAB 2532-0([facility]) LDH SerPl-cCnc 210 135-214 U/L Performed By: #### 46965-1, 2532-0 #### [facility] CLIA [id number] [address] [place] [address] 86308 CBC W AUTO DIFF BLD Collected: 02/20/2024 2:[address] atus: F Source: [facility] REPOSITORY Order Comment: Specimen Type : BLOOD SPECIMEN Ordering Facility: [facility] Address: [address] [place] [address] TYPE CODE TESTS RESULT OUT OF RANGE REFERENCE UNITS LAB 6690-2(LOINC) WBC # Bld Auto 10.59 3.70-11.00 k/uL LAB 789-8(LOINC) RBC # Bld Auto 3.80 Low 3.90-5.20 m/ uL LAB 718-7(LOINC) Hgb Bld-mCnc 11.2 Low 11.5-15.5 g/dL LAB 4544-3([facility]) Hct VFr Bld Auto 33.4 Low 36.0-46.0 % LAB 787-2([facility]) MCV RBC Auto 87.9 80.0-100.0 fL LAB 785-6([facility]) MCH RBC Qn Auto 29.5 26.0-34.0 p g LAB 786-4([facility]) MCHC RBC Auto-mCnc 33.5 30.5-36.0 g/dL LAB 28255-3([facility]) RDW RBC-Rto 13.5 11.5-15.0 % LAB 777-3([facility]) Platelet # Bld Auto 199 150-400 k/uL LAB 62940-8([facility]) PMV Bld Auto 10.0 9.0-12.7 fL LAB 770-8([facility]) Neutrophils/leuk NFr Bld Auto 82.6 % LAB 751-8([facility]) Neutrophils # Bld Auto 8.76 High 1.45-7.50 k/uL LAB 736-9([facility]) Lymphocytes/leuk NFr Bld Auto 10.7 % LAB 731-0([facility]) Lymphocytes # Bld Auto 1.13 1.00-4.00 k/uL LAB 5905-5([facility]) Monocytes/leuk NFr Bld Auto 4.9 % LAB 742-7([facility]) Monocytes # Bld Auto 0.52 <0.87 k/uL LAB 713-8([facility]) Eosinophil/leuk NFr Bld Auto 0.8 % LAB 711-2([facility]) Eosinophil # Bld Auto 0.08 <0.46 k/uL LAB 706-2([facility]) Basophils/leuk NFr Bld Auto 0.3 % LAB 704-7([facility]) Basophils # Bld Auto 0.03 <0.11 k/uL LAB 98906-4([facility]) Imm Granulocytes/seymour k NFr Bld Auto 0.7 % LAB 58874-8([facility]) Imm Granulocytes # Bld Auto 0.07 <0.10 k/uL LAB 34427-6([facility]) nRBC/100 WBC Bld-Rto 0.0 /100 WBC LAB 771-6(LOINC) nRBC # Bld Auto <0.01 <0.01 k/u L LAB 27577-7(LOINC) Differential method Bld Auto Performed By: #### 67459-8 # ### [facility] CLIA [id number] [address] [place] [address]240 COMPLETE BLOOD COUNT Collected: 01/29/2024 6:45 AM Status: COMPLETED Source: [facility] REPOSITORY TYPE CODE TESTS RESULT OUT OF RANGE REFERENCE UNITS LAB WBC(LOINC) WBC COUNT 8.2 4.0-11.0 X10E9/L LAB RBC(LOINC) RBC COUNT 3.34 Low 3.80-5.20 X10E12/L LAB HGB(LOINC) HEMOGLOBIN 10.4 Low 11.7-15.5 g/dL LAB HCT(LOINC) HEMATOCRIT 29.4 Low 35-47 % LAB MCV(LOINC) MCV 88 80-100 fL LAB MCH(LOINC) MCH 31.0 27-34 pg LAB MCHC(LOINC) MCHC 35.3 32-36 g/dL LAB RDW(LOINC) RDW 13.6 11.5-15.0 % LAB PLTC(LOINC) PLATELET COUNT 205 150-450 X10E9 /L LAB MPV(LOINC) MPV 8.1 7-12 fL Performed By: #### CBC, CMP, 2532-0, 3084-1 #### [facility] ([id number]) [address] [place] [address], [place] [address] COMPREHENSIVE METABOLIC PANEL Collected: 2023 6:45 AM Status: COMPLETED Source: [facility] REPOSITORY TYPE CODE TESTS RESULT OUT OF RANGE REFERENCE UNITS LAB NA(LOINC) SODIUM 136 134-146 mmol/L LAB K(LOINC) POTASSIUM 4.1 3.5-5.0 mmol/L LAB CL(LOINC) CHLORIDE 105 98-109 mmol/L LAB CO2(LOINC) CARBON DIOXIDE 22 22-32 mmol/L LAB AGAP(LOINC) ANION GAP 9 5-15 mmol/L LAB BUN(LOINC) BLOOD UREA NITROGEN 5 5-23 mg/dL LAB CRET(LOINC) CREATININE 0.51 0.40-1.00 mg/dL Result Comment: METHOD TRACE ABLE TO IDMS STANDARD LAB GLU(LOINC) GLUCOSE 96 65-99 mg/dL LAB CA(LOINC) CALCIUM 9.2 8.5-10.5 mg/dL LAB TP(LOINC) TOTAL PROTEIN 6.5 6.0-8.0 g/dL LAB ALB(LOINC) ALBUMIN 2.8 Low 3.2-5.3 g/dL LAB ALK(LOINC) ALKALINE PHOSPHATASE 103 39-130 U/L LAB AST(LOINC) AST 18 0-41 U/L LAB ALT1(LOINC) ALT 16 0-31 U/L LAB TBIL(LOINC) BILIRUBIN,TOTAL 0.3 0.3-1.2 mg/d L LAB EGFR(LOINC) eGFR (CKD-EPI) NON-RACE DEPENDENT >90 >59 ml/min/1 .73sq.m Result Comment: Reported eGFR is based on the CKD-EPI 2020 equation that does not use a race coefficient. Performed By: #### NATASHA BO, 2532-0, 3084-1 #### [facility] ([id number]) [address] [place] [address] LDH Collected: 01/29/2024 6:45 AM S tatus: COMPLETED Source: [facility] REPOSITORY TYPE CODE TESTS RESULT OUT OF RANGE REFERENCE UNITS LAB LDH(LOINC) LDH 128 100-235 U/L Performed By: #### NATASHA BO, 2532-0, 3084-1 #### [facility] ([id number]) [address] [place] [address] 229[address] URIC ACID Collected: 01/29/2024 6:45 AM S tatus: COMPLETED Source: [facility] REPOSITORY TYPE CODE TESTS RESULT OUT OF RANGE REFERENCE UNITS LAB URIC(LOINC) URIC ACID 4.1 2.6-7.2 mg/dL Performed By: #### NATASHA BO, 2532-0, 3084-1 #### [facility] ([id number]) [address] [place] [address] PROTEIN CREAT RATIO Collected: 01/29/2024 5:30 AM Status: COMPLETED Source: [facility] REPOSITORY TYPE CODE TESTS RESULT OUT OF RANGE REFERENCE UNITS LAB UCRR(LOINC) URINE CREATININE,RDM 25.84 mg/dL LAB UTPR(LOINC) RANDOM URINE PROTEIN 30 <120 mg/L LAB UPCRC(LOINC) U/PRO/POWDER ROOM ATTENDANT RATIO CALC 0.12 <0.2 Result Comment: Nephrotic Sy ndrome is associated with ratios >3.5 Performed By: #### UPCR #### [facility] ([id number]) [address] [place] [address], [place] [address] CNPN Observed: 01/25/2024 12:00 AM Status: COMPLETED Source: [facility] REPOSITORY Telephone (PLASMN) VY MCKEON ([id number]) 1990 F Date Time Provider Department 01/25/24 FRANSICO SHARP During your visit today, we recorded the following information about you: Cynthia Mejia 01/25/2024 1:48 PM Signed Pt is not [...] mg by mouth. - omeprazole magnesium (ACID REMOTE SENSING SURVEYOR, OMEPRAZOLE, ORAL) Take by mouth as directed. [...] cancer [C44.90] 01/21/2024 Encounter Status:Closed by CYNTHIA MEJIA on 01/25/24 PROGRESS Observed: 01/22/2024 11:12 AM Status: COMPLETED Source: [facility] REPOSITORY HNO ID: [id number] Author: ANA PEOPLES MD Service: ? Author [...] Skin cancer Current Assessment AND Plan 01/22/2024 [facility] Pt is a 33 year old 29w4d with a new diagnosis of malignant melanoma located above the left upper lip. Oncologist Usman Goldberg MD Surgeon Fransico Sharp MD Pts general OBGYN in [place], [place]: Eliazar Castaneda MD The plan is for wide local excision with reconstruction, which may take multiple trips to the OR. The OR plan involves radioactive tracer for sentinal node She has not been imaged for staging. She comes to [facility] today for discussion on when to deliver. [...] accelerate delivery depending on findings. Ana Peoples MDOther Placenta previa antepartum in second trimester Overview 01/21/2024 [facility] Previa resolved on US today. Placenta > 2cm away from the cervix. Ana Peoples MDOther Visit Diagnoses Malignant melanoma of skin (HCC) I spent 70 minutes in the visit, with more than 50% of the total lfbp-hz-tbqm time of the visit in counseling / coordination of care. I shared my findings and recommendations via the shared medical record or via the mail to the referring provider. Ana Peoples MD [facility] Observed: 01/22/2024 12:00 AM Status: COMPLETED Source: [facility] REPOSITORY Telephone ([id number]) VY MCKEON ([id number]) 1990 F Date Time Provider Department 01/22/24 ANA PEOPLES [id number] During your visit today, we recorded the following information about you: Ana Peoples MD 01/22/2024 3:44 PM Signed 01/22/2024 [facility] Pt called and identified ~ 12:30 pm. [...] mg by mouth. - omeprazole magnesium (ACID REMOTE SENSING SURVEYOR, OMEPRAZOLE, ORAL) Take by mouth as directed. [...] Encounter Status:Closed by ANA PEOPLES on 01/22/24 KIERAN Observed: 01/22/2024 12:00 AM Status: COMPLETED Source: [facility] REPOSITORY Telephone (Converged Access) VY MCKEON ([id number]) 1990 F Date Time Provider Department 01/22/24 BRANDON GREEN During your visit today, we recorded the following information about you: Brandon Green RN 01/22/2024 1:03 PM Signed Brandon Green RN 01/23/2024 3:55 PM Signed Pt calls [...] to be done prior to CT. Brandon Green RN 01/24/2024 12:24 PM Signed Clerical: Please call pt to schedule CT scans. BRITNEY Mitchell Courtney 01/24/2024 12:47 PM Signed Vy is scheduled for her CT scan on 02/21 at 11am. She is scheduled for her labwork still, on Sunday, 02/19. I spoke with Vy and she is in agreement. Thanks, Angela Hilario Allergies As of Date: 01/22/2024 Noted Allergy Reaction PENICILLINS 04/05/2022 16 - Unknown Comments: unknown Other Reaction(s): Unknown Reaction Date Reviewed: 01/21/2024 Reviewed by: Reji Manning, BRITNEY - Fully Assessed Reason for Visit: Scans [867] Primary Visit Diagnosis:Malignant melanoma of skin (HCC) [C43.9] Order(s):CT NECK SOFT TISSUE W IVCON [[id number]] Order #: [id number] FUTURE [] iv contrast (will be provided [...] 1 EachRfl: 0 CT CHEST W IVCON [[id number]] Order #: [id number] FUTURE [] iv contrast (will be provided [...] EachRfl: 0 LACTATE DEHYDROGENASE [SQLD6] Order #: [id number] FUTURE COMPLETE BLOOD COUNT AND DIFFERENTIAL [SQCBCDIF] Order #: [id number] FUTURE COMPREHENSIVE METABOLIC PANEL [SQCMP] Order #: [id number] FUTURE Prescriptions as of 01/30/2024 - diphenhydramine [...] mg by mouth. - omeprazole magnesium (ACID REMOTE SENSING SURVEYOR, OMEPRAZOLE, ORAL) Take by mouth as directed. [...] 1 Ea* 0 01/23/2024 01/23/2024 Class: In Office Route: INTRAVENOUS Sig: Inject 1 Each intravenously one time only [...] in the CT contrast administration guidelines link. IV CONTRAST (RADIOLOGY PROCEDURE) 1 Ea* 0 01/23/2024 01/24/2024 Class: In Office Sig: CT Chest W -Inject, intravenously, once for [...] in the CT contrast administration guidelines link. Encounter Status:Closed by BRANDON GREEN on 01/30/24 PRADEEPN Observed: 01/18/2024 12:00 AM Status: COMPLETED Source: [facility] REPOSITORY Telephone (OBGYF2) VY MCKEON ([id number]) 1990 F Date Time Provider Department 01/18/24 [...] mg by mouth. - omeprazole magnesium (ACID REMOTE SENSING SURVEYOR, OMEPRAZOLE, ORAL) Take by mouth as directed. - PNV no.95/ferrous fum/folic ac ( ORAL) Take by mouth as directed. Problem List As Of Date: 01/18/2024 (None) Encounter Status:Closed by JOSE L CROWLEY on 01/18/24 KIERAN Observed: 01/10/2024 12:00 AM Status: COMPLETED Source: [facility] REPOSITORY Telephone (OBGYF2) VY MCKEON ([id number]) 1990 F Date Time Provider Department 01/10/24 HISTORICAL OBGYF2 During your visit today, we recorded the following information about you: Rolo Parada 01/10/2024 9:19 AM Signed SendTask msg was sent to patient asking for [...] mg by mouth. - omeprazole magnesium (ACID REMOTE SENSING SURVEYOR, OMEPRAZOLE, ORAL) Take by mouth as directed. - PNV no.95/ferrous fum/folic ac ( ORAL) Take by mouth as directed. Problem List As Of Date: 01/10/2024 (None) Encounter Status:Closed by ROLO PARADA on 01/10/24 KIERAN Observed: 01/09/2024 12:00 AM Status: COMPLETED Source: [facility] REPOSITORY Telephone (PLASMN) VY MCKEON ([id number]) 1990 F Date Time Provider Department 01/09/24 FRANSICO SHARP During your visit today, we recorded the following information about you: Fernanda Michael 01/09/2024 9:55 AM Signed Patient called that she is seeing Maternal Med, in her area and was questioning does she need to see one at the [facility]? She is asking for a call.. she is very nervous Surjit Griggs, BRITNEY 01/09/2024 12:42 PM Signed Reached out to patient. Instructions provided to see a maternal medicine specialist within the [facility] per Dr. Sharp. This nurse explained [...] mg by mouth. - omeprazole magnesium (ACID REMOTE SENSING SURVEYOR, OMEPRAZOLE, ORAL) Take by mouth as directed. - PNV no.95/ferrous fum/folic ac ( ORAL) Take by mouth as directed. Problem List As Of Date: 01/09/2024 (None) Encounter Status:Closed by FERNANDA MICHAEL on 01/09/24 CNOVSP Observed: 01/04/2024 2:15 PM Status: COMPLETED Source: [facility] REPOSITORY Visit (SP) Office (PLASCA) VY MCKEON ([id number]) 1990 F Date Time Provider Department 01/04/24 2:15 PM FRANSICO SHARP During your visit today, we recorded the following information about you: Temperature Pulse Respiration Blood pressure 97.1 degrees 94/minute 20/minute 148/83 Fransico Sharp MD 01/06/2024 9:42 AM Signed DATE: January 03, 2024 CC: New Melanoma Patient Referring Physician: Margarita Kim MD at [facility] in [place] HPI: Vy Mckeon is a 33 year [...] 400 mg by mouth. omeprazole magnesium (ACID REMOTE SENSING SURVEYOR, OMEPRAZOLE, ORAL) Take by mouth as directed. [...] and significant neck swelling. SKIN: See HPI HEMATOLOGIC/LYMPHATIC/IMMUNOLOGIC:Negative for prolonged bleeding, bruising easily, and swollen nodes. PHYSICAL EXAM: BP 148/83 Pulse 94 Temp 36.2 ?C (97.1 ?F) (Temporal) Resp 20 LMP 06/24/2023 SpO2 99% GENERAL: Patient is a well-nourished , appearing stated age, resting comfortably, breathing regularly. No acute distress. 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 The lesion measures 1 cm in diameter. Photos taken, see [facility] Get Images LABS: Pathology Report - EXTERNAL [...] taken and uploaded to chart today via [employer] - Pathology re-read to be obtained - Surgical plan is for resection of left upper lip melanoma, reconstruction with local tissue rearrangement, and a sentinel lymph node biopsy - Surgery at [facility] or . Likely plan is to wait for surgical intervention until after 36 weeks . - PACC prior to surgery - Nuclear medicine appointment at [facility] the morning of surgery - Post op 7-10 days with Tana Cervantes APRN.CEMENT MASON - Consult placed to [facility] for risk assessment and guidance: call [phone] to schedule. - Recommend regular dermatology follow-up for FBSE - Q3 months for 2 years, Q6 months for 5 years and Q1 year for the rest of his/her life - Patient follows with OBGYN Dr. Castaneda in [place], [place] Follow up after 36 weeks of and with [facility]'s recommendations. The patient is seen and examined by Dr. Sharp and the following reflects his service. Scribed by Valerie Bedoya RN STAFF NOTE: I agree with the Chief Complaint, ROS, and Past Histories independently gathered by the clinical student support advisor and the remaining scribed note accurately describes [...] we would coordinate this with her high court justice team here at the [facility]. While I believe this to be [...] she was very happy with today's consultation. MD Elke Li Alyssa, RN 01/04/2024 3:21 PM Signed PLAN: - Photos taken and uploaded to chart today via [facility] - Pathology re-read to be obtained - Surgical plan is for resection of left upper lip melanoma, reconstruction with local tissue rearrangement, and a sentinel lymph node biopsy - Surgery at [facility] or [facility]. Likely plan is to wait for surgical intervention until after 36 weeks . - Pre op clearance (PACC) prior to surgery for clearance to receive general anesthesia; must be done at a [facility] location - Nuclear medicine appointment at [facility] the morning of surgery - Post op 7-10 days with Tana Cervantes APRN.CEMENT MASON - Consult placed to Maternal Medicine (MFM) for risk assessment and guidance: call [phone] to schedule. - Recommend regular dermatology follow-up for FBSE - Q3 months for 2 years, Q6 months for 5 years and Q1 year for the rest of his/her life Our instructor adjunct surgical technician will contact you to set up all surgical appointments: pre op (PACC) prior to surgery, nuclear medicine the morning of surgery, surgery itself, and a post op visit about 7-10 days after surgery with the team's nurse practitioner, Tana. Follow up prior to surgical date: around 36-37 weeks or after delivery. Please notify us of [facility]'s recommendations. Please SendTask message or call the office with questions/concerns. Allergies As of Date: 01/04/2024 Noted Allergy Reaction PENICILLINS 04/05/2022 16 - Unknown Comments: unknown Other Reaction(s): Unknown Reaction Date Reviewed: 12/26/2023 Reviewed by: Renuka Prasad MA - Fully Assessed Primary Visit Diagnosis:Malignant melanoma of skin (HCC) [C43.9] Order(s):CONSULT TO MATERNAL MEDI [2313361] Order #: [id number]: 1 FUTURE REFER TO PACC - PRE ANESTHESIA CONSULTATION CLINIC [[id number]] Order #: [id number]: 1 FUTURE SURGICAL REQUEST - ELECTIVE (05/2020) [[id number]] Order #: [id number]: [address] IMAGING MELANOMA [[id number]] Order #: [id number] FUTURE Prescriptions as of 01/06/2024 - diphenhydramine HCl (UNISOM, DIPHENHYDRAMINE, ORAL) - [...] mg by mouth. - omeprazole magnesium (ACID REMOTE SENSING SURVEYOR, OMEPRAZOLE, ORAL) Take by mouth as directed. - PNV no.95/ferrous fum/folic ac ( ORAL) Take by mouth as directed. Problem List As Of Date: 01/04/2024 (None) Other instructions from your clinician: PLAN: - Photos taken and uploaded to chart today via [facility] - Pathology re-read to be obtained - Surgical plan is for resection of left upper lip melanoma, reconstruction with local tissue rearrangement, and a sentinel lymph node biopsy - Surgery at [facility] or [facility]. Likely plan is to wait for surgical intervention until after 36 weeks . - Pre op clearance (PACC) prior to surgery for clearance to receive general anesthesia; must be done at a [facility] location - Nuclear medicine appointment at [facility] the morning of surgery - Post op 7-10 days with Tana Cervantes APRN.CEMENT MASON - Consult placed to Maternal Medicine (MFM) for risk assessment and guidance: call [phone] to schedule. - Recommend regular dermatology follow-up for FBSE - Q3 months for 2 years, Q6 months for 5 years and Q1 year for the rest of his/her life Our instructor adjunct surgical technician will contact you to set up all surgical appointments: pre op (PACC) prior to surgery, nuclear medicine the morning of surgery, surgery itself, and a post op visit about 7-10 days after surgery with the team's nurse practitioner, Tana. Follow up prior to surgical date: around 36-37 weeks or after delivery. Please notify us of M's recommendations. Please MyChart message or call the office with questions/concerns. Encounter Status:Closed by FRANSICO SHARP on 01/06/24 PROGRESS Observed: 12/28/2023 8:54 AM Status: COMPLETED Source: [facility] REPOSITORY HNO ID: [id number] Author: FRANSICO SHARP MD Service: ? Author Type: Physician Type: Progress Notes Filed: 01/06/2024 09:42 Note Text: DATE: January 03, 2024 CC: New Melanoma Patient Referring Physician: Margarita Kim MD at [facility] in [place] HPI: Vy Mckeon is a 33 year [...] 400 mg by mouth. omeprazole magnesium (ACID REMOTE SENSING SURVEYOR, OMEPRAZOLE, ORAL) Take by mouth as directed. [...] and significant neck swelling. SKIN: See HPI HEMATOLOGIC/LYMPHATIC/IMMUNOLOGIC:Negative for prolonged bleeding, bruising easily, and swollen nodes. PHYSICAL EXAM: BP 148/83 Pulse 94 Temp 36.2 ?C (97.1 ?F) (Temporal) Resp 20 LMP 06/24/2023 SpO2 99% GENERAL: Patient is a well-nourished , appearing stated age, resting comfortably, breathing regularly. No acute distress. 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 The lesion measures 1 cm in diameter. Photos taken, see [facility] Get Images LABS: Pathology Report - EXTERNAL [...] taken and uploaded to chart today via [facility] - Pathology re-read to be obtained - Surgical plan is for resection of left upper lip melanoma, reconstruction with local tissue rearrangement, and a sentinel lymph node biopsy - Surgery at [facility] or . Likely plan is to wait for surgical intervention until after 36 weeks . - PACC prior to surgery - Nuclear medicine appointment at [facility] the morning of surgery - Post op 7-10 days with Tana Cervantes APRN.CEMENT MASON - Consult placed to [facility] for risk assessment and guidance: call [phone] to schedule. - Recommend regular dermatology follow-up for FBSE - Q3 months for 2 years, Q6 months for 5 years and Q1 year for the rest of his/her life - Patient follows with OBGYN Dr. Castaneda in [place], [place] Follow up after 36 weeks of and with [facility]'s recommendations. The patient is seen and examined by Dr. Sharp and the following reflects his service. Scribed by Valerie Bedoya RN STAFF NOTE: I agree with the Chief Complaint, ROS, and Past Histories independently gathered by the clinical student support advisor and the remaining scribed note accurately describes [...] we would coordinate this with her high court justice team here at the [facility]. While I believe this to be [...] happy with today's consultation. Fransico Sharp MD CNOVSP Observed: 12/26/2023 3:30 PM Status: COMPLETED Source: [facility] REPOSITORY Visit (SP) Office ([place]) VY MCKEON ([id number]) 1990 F Date Time Provider Department 12/26/23 3:30 PM USMAN GOLDBERG During your visit today, we recorded the following information about you: Temperature Pulse Respiration Blood pressure 97.3 degrees 87/minute 16/minute 134/74 Weight Height Last Period 86.1 kg 1.702 m 06/24/23 Usman Goldberg MD 12/27/2023 12:46 PM Signed NAME: Vy Mckeon [facility] NO.: [id number] DATE OF SERVICE: December 26, 2023 (Krystal) Referring Provider: Self Consultation requested by Self Referred for an opinion regarding Ms. Vy Mckeon, and my final recommendations will be communicated back to the requesting physician by way of shared medical record or letter via US mail. Additional Clinicians involved in Vy Mckeon's care:Freddie Velazquez DIAGNOSIS: Cutaneous melanoma ASSESSMENT: 33 year old [...] 400 mg by mouth. omeprazole magnesium (ACID REMOTE SENSING SURVEYOR, OMEPRAZOLE, ORAL) Take by mouth as directed. PNV no.95/ferrous fum/folic ac ( ORAL) Take by mouth as directed. - LABORATORY VALUES: WBC (k/uL) Date Value 12/26/2023 9.72 RBC (m/uL) Date Value 12/26/2023 3.99 Hemoglobin (g/dL) Date Value 12/26/2023 12.0 Hematocrit (%) Date Value 12/26/2023 35.5 (L) MCV (fL) Date Value 12/26/2023 89.0 MCH (pg) Date Value 12/26/2023 30.1 MCHC (g/dL) Date Value 12/26/2023 33.8 RDW-CV (%) Date Value 12/26/2023 13.5 Platelet Count (k/uL) Date Value 12/26/2023 224 MPV (fL) Date Value 12/26/2023 10.1 Glucose (mg/dL) Date Value 12/26/2023 85 BUN (mg/dL) Date Value 12/26/2023 6 (L) Creatinine (mg/dL) Date Value 12/26/2023 0.64 Sodium (mmol/L) Date Value 12/26/2023 136 Potassium (mmol/L) Date Value 12/26/2023 4.1 Chloride (mmol/L) Date Value 12/26/2023 103 CO2 (mmol/L) Date Value 12/26/2023 23 Protein, Total (g/dL) Date Value 12/26/2023 7.3 Albumin (g/dL) Date Value 12/26/2023 3.9 Calcium, Total (mg/dL) Date Value 12/26/2023 10.1 Alkaline Phosphatase (U/L) Date Value 12/26/2023 109 Bilirubin, Total (mg/dL) Date Value 12/26/2023 0.2 AST (U/L) Date Value 12/26/2023 26 ALT (U/L) Date Value 12/26/2023 26 - DIAGNOSIS: (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) (primary encounter diagnosis) Plan: LD LACTATE DEHYDRO, CBC + DIFF, COMP METABOLIC PANEL, LD LACTATE DEHYDRO, CBC + DIFF, COMP METABOLIC PANEL PAST MEDICAL HISTORY Diagnosis Date Anxiety Asthma Depression Melanoma (HCC) PAST SURGICAL HISTORY Procedure Laterality Date DANDC, DIAG AND/OR THERAPEUTIC PAST SURGICAL HISTORY OF Shaved Biopsy above lip Social History Tobacco Use Smoking status: Never Smokeless tobacco: Never Substance Use Topics Alcohol use: Yes FAMILY HISTORY Problem Relation Age of Onset Melanoma Maternal Grandmother I spent a total of 60 minutes on the date of the service which included preparing to see the patient, [id number] patient care, completing clinical documentation, obtaining and/or reviewing separately obtained history, performing a medically appropriate examination, counseling and educating the patient/family/caregiver, ordering medications, tests, or procedures, independently interpreting results (not separately reported), communicating results to the patient/family/caregiver, and care coordination (not separately reported). Usman Goldberg MD, CPE Hematology and Oncology Services Provided at: [place], [place] CC: SELF Freddie Velazquez [address] [facility] [address] [facility] [address] Referring Provider: SELF [200] Allergies As of Date: 12/26/2023 Noted Allergy Reaction PENICILLINS 04/05/2022 16 - Unknown Comments: unknown Other Reaction(s): Unknown Reaction Date Reviewed: 12/26/2023 Reviewed by: Renuka Prasad MA - Fully Assessed Reason for Visit: Melanoma [924] Cmt: New patient consult Primary Visit Diagnosis:Malignant melanoma of skin of lip (HCC) [C43.0] Order(s):LD LACTATE DEHYDRO [SQLD6] Order #: [id number] FUTURE CBC + DIFF [SQCBCDIF] Order #: [id number] FUTURE COMP METABOLIC PANEL [SQCMP] Order #: [id number] FUTURE LD LACTATE DEHYDRO [SQLD6] Order #: [id number]. #:[id number] CBC + DIFF [SQCBCDIF] Order #: [id number]. #:[id number] COMP METABOLIC PANEL [SQCMP] Order #: [id number]. #:[id number] Level of Service: OFFICE/OUTPATIENT [facility] 60 MINUTES [88661] Prescriptions as of 12/27/2023 - diphenhydramine HCl (UNISOM, DIPHENHYDRAMINE, ORAL) - [...] mg by mouth. - omeprazole magnesium (ACID REMOTE SENSING SURVEYOR, OMEPRAZOLE, ORAL) Take by mouth as directed. - PNV no.95/ferrous fum/folic ac ( ORAL) Take by mouth as directed. Problem List As Of Date: 12/26/2023 (None) Encounter Status:Closed by USMAN GOLDBERG on 12/27/23 PROGRESS Observed: 12/26/2023 3:30 PM Status: COMPLETED Source: [facility] REPOSITORY HNO ID: [id number] Author: USMAN GOLDBERG MD Service: ? Author Type: Physician Type: Progress Notes Filed: 12/27/2023 12:46 Note Text: NAME: Vy Mckeon [facility] NO.: [id number] DATE OF SERVICE: December 26, 2023 (Krystal) Referring Provider: Self Consultation requested by Self Referred for an opinion regarding Ms. Vy Mckeon, and my final recommendations will be communicated back to the requesting physician by way of shared medical record or letter via US mail. Additional Clinicians involved in Vy Mckeon's care:Freddie Velazquez DIAGNOSIS: Cutaneous melanoma ASSESSMENT: 33 year old [...] her Maternal GM melanoma face (nose) in 80s. No history of breast cancer in the [...] 400 mg by mouth. omeprazole magnesium (ACID REMOTE SENSING SURVEYOR, OMEPRAZOLE, ORAL) Take by mouth as directed. PNV no.95/ferrous fum/folic ac ( ORAL) Take by mouth as directed. LABORATORY VALUES: WBC (k/uL) Date Value 12/26/2023 9.72 RBC (m/uL) Date Value 12/26/2023 3.99 Hemoglobin (g/dL) Date Value 12/26/2023 12.0 Hematocrit (%) Date Value 12/26/2023 35.5 (L) MCV (fL) Date Value 12/26/2023 89.0 MCH (pg) Date Value 12/26/2023 30.1 MCHC (g/dL) Date Value 12/26/2023 33.8 RDW-CV (%) Date Value 12/26/2023 13.5 Platelet Count (k/uL) Date Value 12/26/2023 224 MPV (fL) Date Value 12/26/2023 10.1 Glucose (mg/dL) Date Value 12/26/2023 85 BUN (mg/dL) Date Value 12/26/2023 6 (L) Creatinine (mg/dL) Date Value 12/26/2023 0.64 Sodium (mmol/L) Date Value 12/26/2023 136 Potassium (mmol/L) Date Value 12/26/2023 4.1 Chloride (mmol/L) Date Value 12/26/2023 103 CO2 (mmol/L) Date Value 12/26/2023 23 Protein, Total (g/dL) Date Value 12/26/2023 7.3 Albumin (g/dL) Date Value 12/26/2023 3.9 Calcium, Total (mg/dL) Date Value 12/26/2023 10.1 Alkaline Phosphatase (U/L) Date Value 12/26/2023 109 Bilirubin, Total (mg/dL) Date Value 12/26/2023 0.2 AST (U/L) Date Value 12/26/2023 26 ALT (U/L) Date Value 12/26/2023 26 DIAGNOSIS: (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) (primary encounter diagnosis) Plan: LD LACTATE DEHYDRO, CBC + DIFF, COMP METABOLIC PANEL, LD LACTATE DEHYDRO, CBC + DIFF, COMP METABOLIC PANEL PAST MEDICAL HISTORY Diagnosis Date Anxiety Asthma Depression Melanoma (HCC) PAST SURGICAL HISTORY Procedure Laterality Date DANDC, DIAG AND/OR THERAPEUTIC PAST SURGICAL HISTORY OF Shaved Biopsy above lip Social History Tobacco Use Smoking status: Never Smokeless tobacco: Never Substance Use Topics Alcohol use: Yes FAMILY HISTORY Problem Relation Age of Onset Melanoma Maternal Grandmother I spent a total of 60 minutes on the date of the service which included preparing to see the patient, [id number]-[id number] patient care, completing clinical documentation, obtaining and/or reviewing separately obtained history, performing a medically appropriate examination, counseling and educating the patient/family/caregiver, ordering medications, tests, or procedures, independently interpreting results (not separately reported), communicating results to the patient/family/caregiver, and care coordination (not separately reported). Usman Goldberg MD, CPE Hematology and Oncology Services Provided at: [place], [place] CC: SELF Freddie Velazquez [address] [address] CBC W AUTO DIFF BLD Collected: 12/26/2023 3:[address] atus: F Source: [facility] REPOSITORY Order Comment: Specimen Type : BLOOD SPECIMEN Ordering Facility: [facility] Address: [address] [place] [address] TYPE CODE TESTS RESULT OUT OF RANGE REFERENCE UNITS LAB 6690-2(LOINC) WBC # Bld Auto 9.72 3.70-11.00 k/uL LAB 789-8(LOINC) RBC # Bld Auto 3.99 3.90-5.20 m/ uL LAB 718-7(LOINC) Hgb Bld-mCnc 12.0 11.5-15.5 g/dL LAB 4544-3(LOINC) Hct VFr Bld Auto 35.5 Low 36.0-46.0 % LAB 787-2(LOINC) MCV RBC Auto 89.0 80.0-100.0 fL LAB 785-6(LOINC) MCH RBC Qn Auto 30.1 26.0-34.0 p g LAB 786-4([facility]) MCHC RBC Auto-mCnc 33.8 30.5-36.0 g/dL LAB 82973-7([facility]) RDW RBC-Rto 13.5 11.5-15.0 % LAB 777-3([facility]) Platelet # Bld Auto 224 150-400 k/uL LAB 20710-1([facility]) PMV Bld Auto 10.1 9.0-12.7 fL LAB 770-8([facility]) Neutrophils/leuk NFr Bld Auto 77.5 % LAB 751-8([facility]) Neutrophils # Bld Auto 7.52 High 1.45-7.50 k/uL LAB 736-9([facility]) Lymphocytes/leuk NFr Bld Auto 15.0 % LAB 731-0([facility]) Lymphocytes # Bld Auto 1.46 1.00-4.00 k/uL LAB 5905-5([facility]) Monocytes/leuk NFr Bld Auto 5.1 % LAB 742-7([facility]) Monocytes # Bld Auto 0.50 <0.87 k/uL LAB 713-8([facility]) Eosinophil/leuk NFr Bld Auto 1.5 % LAB 711-2([facility]) Eosinophil # Bld Auto 0.15 <0.46 k/uL LAB 706-2([facility]) Basophils/leuk NFr Bld Auto 0.3 % LAB 704-7([facility]) Basophils # Bld Auto 0.03 <0.11 k/uL LAB 87019-5([facility]) Imm Granulocytes/seymour k NFr Bld Auto 0.6 % LAB 01284-7([facility]) Imm Granulocytes # Bld Auto 0.06 <0.10 k/uL LAB 44553-2([facility]) nRBC/100 WBC Bld-Rto 0.0 /100 WBC LAB 771-6([facility]) nRBC # Bld Auto <0.01 <0.01 k/u L LAB 52778-2([facility]) Differential method Bld Auto Performed By: #### 47199-5 # ### [facility] CLIA [id number] [address] [place] [address] COMP METAB 2000 PNL SERPL Collected: 3:04 PM Status: F Source: [facility] REPOSITORY Order Comment: Specimen Type : BLOOD SPECIMEN Ordering Facility: [facility] Address: [address] [place] [address] TYPE CODE TESTS RESULT OUT OF RANGE REFERENCE UNITS LAB 2885-2(LOINC) Prot SerPl-mCnc 7.3 6.3-8.0 g/dL LAB 1751-7(LOINC) Albumin SerPl-mCnc 3.9 3.9-4.9 g/dL LAB 37049-3(LOINC) Calcium SerPl-mCnc 10.1 8.5-10.2 mg/dL LAB 1975-2(LOINC) Bilirub SerPl-mCnc 0.2 0.2-1.3 mg/dL LAB 6768-6(LOINC) ALP SerPl-cCnc 109 34-123 U/L LAB 1920-8(LOINC) AST SerPl-cCnc 26 13-35 U/L LAB 1742-6(LOINC) ALT SerPl-cCnc 26 7-38 U/L LAB 2345-7(LOINC) Glucose SerPl-mCnc 85 74-99 mg/dL Result Comment: The [place] [employer] Association (ADA) provides guidance for cutoff [...] Standards of Medical Care in Diabetes 2016, [place] [employer]. Diabetes Care. 2016.39(Suppl 1). LAB 3094-0(LOINC) BUN SerPl-mCnc 6 Low 7-21 mg/ dL LAB 2160-0(LOINC) Creat SerPl-mCnc 0.64 0.58-0.96 mg/dL LAB 2951-2(LOINC) Sodium SerPl-sCnc 136 136-144 mmol/L LAB 2823-3(LOINC) Potassium SerPl-sCnc 4.1 3.7-5.1 mmol/L LAB 2074-0(LOINC) Chloride SerPl-sCnc 103 97-105 mmol/L LAB 2027-(LOINC) CO2 SerPl-sCnc 23 22-30 mmo l/L LAB 44251-0(LOINC) Anion Gap SerPl-sCnc 10 9-18 mmol/L LAB 15548-5(LOINC) Creatinine + eGFR Pnl SerPlBld 118 >=60 mL/min/1 .73m??? Result Comment: Estimated Gl omerular Filtration Rate (eGFR) is calculated using the 2020 CKD-EPI creatinine equation. This equation utilizes serum creatinine, sex, and age as parameters. The creatinine assay has traceable calibration to isotope dilution-mass spectrometry. Refer to KDIGO guidelines for clinical interpretation. In patients with unstable renal function, e.g. those with acute kidney injury, the eGFR may not accurately reflect actual GFR. Performed By: #### 56669-8, 253-0 #### [facility] CLIA [id number] [address] [place] [address] LDH SERPL-CCNC Collected: 3:04 PM Status: F Source: [facility] REPOSITORY Order Comment: Specimen Type : BLOOD SPECIMEN Ordering Facility: [facility] Address: [address] [place] [address] TYPE CODE TESTS RESULT OUT OF RANGE REFERENCE UNITS LAB 2532-0([facility]) LDH SerPl-cCnc 190 135-214 U/L Result Comment: Hemolysis pr esent. The origin of the hemolysis, in vitro versus an in vivo hemolytic process, cannot be distinguished via this assay alone. In vitro hemolysis may lead to non-physiological (spurious) elevation in lactate dehydrogenase (LDH) results. The result should be interpreted in context of the clinical setting and other test results. Suggest reorder as clinically indicated. Performed By: #### 99263-4, 2532-0 #### [facility] CLIA [id number] [address] [place] [address] L Observed: 03/19/2023 1:56 PM Status: F Source: [facility] REPOSITORY ----- ------- Specimen: [id number] Received: 03/19/23 Status: HEMANT Torres Num: [id number] Spec Type: Surgical Subm Dr: Karan Beaulieu MD Tissues: A Duodenum - Biopsy (DUODENAL BX) B Esophagus Biopsy (ESOPHAGEAL) Procedures: HE/Maday, Gross/Micro L4/2 ----- ------- Age/ Patient Sex Location Account Attending Physician ----- ------- Vy Mckeon 32/F [id number] Karan Baeulieu MD ----- ------- SPEC NUM: [id number] RECD: 03/19/23 STATUS: HEMANT TORRES NUM: [id number] ASAD: 03/19/[address] [facility] [address]: Karan Beaulieu MD ENTERED: 03/19/23 [facility] DR: SPEC TYPE: Surgical DEPT: [...] Entirely submitted in one cassette labeled B1. ----- ------- Specimen: [id number] Received: 03/19/23 Status: HEMANT [place] Num: [id number] Spec Type: Surgical Subm Dr: Karan Beaulieu MD Tissues: A Duodenum - Biopsy (DUODENAL BX) B Esophagus Biopsy (ESOPHAGEAL) Procedures: HE/4, Gross/Micro L4/2 ----- ------- Patient: Vy Mckeon [id number] (Continued) ----- ------- Specimen: [id number] Received: 03/19/23 (Continued) Signed (signature on file) Doris Reynolds MD 03/20/231116 ----- ------- Specimen: [id number] Received: 03/19/23 Status: HEMANT Melissa Num: [id number] Spec Type: Surgical Subm Dr: Karan Beaulieu MD Tissues: A Duodenum - Biopsy (DUODENAL BX) B Esophagus Biopsy (ESOPHAGEAL) Procedures: ROBINA/Maday, Gross/Micro L4/2 ----- ------- Patient: Vy Mckeon [id number] (Continued) ----- ------- Specimen: [id number] Received: 03/19/23 (Continued) Microscopic Description A. Two with H E stained material have been examined. The microscopic findings support the above pathologic diagnosis. B. Two with H E stained material have been examined. The microscopic findings support the above pathologic diagnosis. CPT Codes 71479 x 2 ----- ------- ----- ------- Specimen: [id number] Received: 03/19/23 Status: HEMANT Melissa Num: [id number] Spec Type: Surgical Subm Dr: Karan Beaulieu MD Tissues: A Duodenum - Biopsy (DUODENAL BX) B Esophagus Biopsy (ESOPHAGEAL) Procedures: HE/Maday, Gross/Micro L4/2 ----- ------- Patient: Vy Mckeon [id number] (Continued) ----- ------- Signed (signature on file) Doris Reynolds MD 03/20/23 1117 HCG,URINE Collected: 3 11:35 AM Status: F Source: [facility] REPOSITORY TYPE CODE TESTS RESULT OUT OF RANGE REFERENCE UNITS LAB UHCGQ HCG Qualitative,U rine Negative Result Comment: PERFORMED BY : [place] [address] PATHOLOGIST SCRUBBER OPERATOR JOYCE ACHARYA M.D. Performed By: #### UHCG #### [address] ALLERGIES DATE TYPE / CODE NAME / CODE REACTION SEVERITY SOURCE 04/05/2022 Drug Class/[id number] (SNOMED CT) PENICILLINS UNKNOWN [facility] 04/05/2022 Drug Class/[id number] (SNOMED CT) PENICILLINS Other ( See Comments) [facility] ENCOUNTERS ADMIT/DISCHARGE ACCOUNT NUMBER ADMITTING ENCOUNTER CLASS LOCATION SOURCE 02/20/2024/02/20/20 24 [id number] [facility] 02/13/2024/02/15/20 24 [id number] Ambulatory Building:[facility] _[facility] 02/11/2024/02/11/20 24 [id number] Ambulatory Building:[facility] 01/29/2024/01/29/20 24 [id number] DEANCANDACE Ambulatory Building:[facility] _LDRPRoom: 107Bed: 01 [facility] 01/28/2024/01/28/20 24 [id number] Ambulatory Building:NOM S BCP OB [facility] 01/25/2024/01/25/20 24 [id number] Ambulatory Buildin 4 [facility] 01/25/2024/01/25/20 24 [id number] Ambulatory Building:PTH _M[facility] 01/21/2024/01/21/20 24 [id number] Ambulatory [facility]01/21/20 24 [id number] Ambulatory [facility] 01/14/2024/01/14/20 24 [id number] Ambulatory Buildin 00 [facility] 01/08/2024/01/08/20 24 [id number] Ambulatory Building:NOM S BCP OB [facility] 01/04/2024/01/05/20 24 [id number] Ambulatory [facility] [facility] 12/26/2023/12/27/19 24 [id number] [facility] 12/17/2023/12/17/19 24 [id number] Ambulatory Buildin A [facility] 12/10/2023/12/10/19 24 [id number] Ambulatory Building:NOM S BCP OB [facility] 11/20/2023/11/20/19 24 [id number] Ambulatory Buildin 06 [facility] 11/20/2023/11/20/19 24 [id number] Ambulatory Building:PFM _US [facility] 11/12/2023/11/12/19 24 [id number] Ambulatory Building:NOM S BCP OB [facility] EPIC 10/22/2023/10/22/19 24 [id number] Ambulatory Buildin 4 [facility] 10/08/2023/10/08/19 24 [id number] Ambulatory Building:NOM S BCP OB [facility] 08/30/2023/08/30/20 23 [id number] Ambulatory Building:NOM S BCP OB [facility] EP[facility] 03/19/2023/03/19/20 23 [id number] [facility] PAYERS ENCOUNTER GUARANTOR PAYER SUBSCRIBER SOURCE 02/20/2024 Primary Insurance:[facility] MEDICAID [place]Policy Number: [id number] Date:6508-32-45Kolc Name:Joey MENJIVAROB: [id number] [address] [place] [address]262 [facility] 02/13/2024 VY MENJIVARMDOB: [place], [place] [address]Idv: (HP) (WP) Primary Insurance:[facility] MEDICAIDPolicy Number: [id number] Date:2022-11-29 VY MENJIVARMDOB: [id number] [address] [place] [phone]: (HP) (WP) [facility] 02/11/2024 VY REDDOB: [address] [place] [phone]: (HP) Primary Insurance:[facility] [place]ID [place]: [id number] Date:2022-11-29 VY REDDOB: [id number] [address] [place] [address] 478[address] [facility] 01/29/2024 VY REDDOB: [place], [place] [address]Gcf: (HP) (WP) Primary Insurance:[facility] MEDICAIDPolicy Number: [id number] Date:2022-11-29 VY MENJIVARMDOB: [id number] [address] [place] [phone]: (HP) (WP) [facility] 01/28/2024 VY REDDOB: [address] [place] [phone]: (HP) Primary Insurance:[facility] [place]ID [place]: [id number] Date:2022-11-29 VY Burton HALMDOB: [id number] [address] [place] [address] [facility] 01/25/2024 VY ARZOLA HALMDOB: [place], [place] [address]Mfk: (HP) (WP) Primary Insurance:[facility] MEDICAIDPolicy Number: [id number] Date:2022-11-29 VY ARZOLA HALMDOB: [id number] [address] [place] [phone]: (HP) (WP) [facility] 01/25/2024 VY ARZOLA HALMDOB: [place], [place] [address]Pbl: (HP) (WP) Primary Insurance:[employer] [place] MEDICAIDPolicy Number: [id number] Date:2022-11-29 VY ARZOLA HALMDOB: [id number] [address] [place] [phone]: (HP) (WP) [facility] 01/21/2024 Primary Insurance:[facility] MEDICAID [facility] [place]Policy Number: [id number] Date:0188-32-78Xxxh Name:Joey REDDOB: [id number] [address] [place] [address] 18362 [facility] 01/21/2024 Primary Insurance:[facility] MEDICAID [facility] [place]Policy Number: [id number] Date:0378-11-17Pjll Name:Joey REDDOB: [id number] [address] [place] [address] [facility] 01/14/2024 VY ARZOLA HALMDOB: [place], [place] [address]Jgy: (HP) (WP) Primary Insurance:[facility] MEDICAIDPolicy Number: [id number] Date:2022-11-29 VY ARZOLA HALMDOB: [id number] [address] [place] [phone]: (HP) (WP) [facility] 01/08/2024 VY Burton HALMDOB: [address] [place] [address]Nek: (HP) Primary Insurance:[facility] MEDICAID [facility] Number: [id number] Date:2022-11-29 VY Burton HALMDOB: [id number] [address] [place] [address] [facility] 01/04/2024 Primary Insurance:[employer] [facility] [facility] Number: [id number] Date:2358-10-38Slyt Name:Joey REDDOB: [id number] [address] [place] [address] [facility] 12/26/2023 Primary Insurance:[employer] [place] Number: [id number] Date:6700-47-03Iwjq Name:Joey MENJIVAROB: [id number] [address] [place] [address]99 [facility] 12/17/2023 VY ARZOLA HALMDOB: [place], [place] [address]Afr: (HP) (WP) Primary Insurance:[facility] MEDICAIDPolicy Number: [id number] Date:2022-11-29 VY ARZOLA HALMDOB: [id number] [address] [place] [phone]: (HP) (WP) [facility] Ambulatory [facility] 12/10/2023 VY MENJIVARMDOB: [address] [place] [address]Wbc: (HP) Primary Insurance:[facility] [place]ID [place] Number: [id number] Date:2022-11-29 VY Burton HALMDOB: [id number] [address] [place] [address] [facility] 11/20/2023 VY ARZOLA HALMDOB: [place], [place] [address]Oil: (HP) (WP) Primary Insurance:[facility] MEDICAIDPolicy Number: [id number] Date:2022-11-29 VY ARZOLA HALMDOB: [id number] [address] [place] [phone]: (HP) (WP) [facility] Ambulatory [facility] 11/20/2023 VY ARZOLA HALMDOB: [place], [place] [address]Idv: (HP) (WP) Primary Insurance:[facility] MEDICAIDPolicy Number: [id number] Date:2022-11-29 VY ARZOLA HALMDOB: [id number] [address] [place] [phone]: (HP) (WP) [facility] 11/12/2023 VY MENJIVARMDOB: [address] [place] [phone]: (HP) Primary Insurance:[facility] [place]ID [place]: [id number] Date:2022-11-29 VY Burton HALMDOB: [id number] [address] [place] [address] [facility] 10/22/2023 VY ARZOLA HALMDOB: [address] [place] [phone]: (HP) (WP) Primary Insurance:[facility] MEDICAIDPolicy Number: [id number] Date:2022-11-29 VY ARZOLA HALMDOB: [id number] [place] [phone]: (HP) (WP) [facility] 10/08/2023 VY Burton HALMDOB: [address] [place] [phone]: (HP) Primary Insurance:[employer] [place] Number: [id number] Date:2022-11-29 VY MENJIVARMDOB: [id number] [place] [address] [facility] 08/30/2023 VY MENJIVARMDOB: [address] [place] [address]Aqf: (HP) Primary Insurance:[facility] [place]ID [place]: [id number] Date:2022-11-29 VY MENJIVARMDOB: [id number] [address] [place] [address] 22057 [facility] 03/19/2023 Vy Menjivarm[address] [place] [phone]: (HP) Primary Insurance:[facility] MedicaidPolicy Number: [id number] Date:1814-74-12UH Carlos [place] [address]ON: Vy MenjivarmDOB: [id number] [address] [place] [phone]: (HP) [facility] 03/19/2023 Secondary Insurance:Self PayPolicy Number: Effective Date:2023-02-12 NOT GIVENUNK [facility]
[2024-02-21 15:28] VITALS: BP 124/59; PULSE 96
== END 2024-02-21 15:40 | disposition home or self-care (01) ==
LOC: FBCO 07:44 → FBC 14:52
PROVIDERS: Visit Provider Obstetrics & Gynecology
DX: O36.63X0 Maternal care for excessive fetal growth, third trimester, not applicable or unspecified (principal)
CPT/HCPCS: 59025

== ENCOUNTER 2024-02-26 07:01 | Outpatient (OUT) | payer MEDICAID, SELFPAY ==
--- OUTSIDE RECORDS SUMMARY | 2024-02-26 07:04 | XMS_ITS | CCD ---
Author Organization [facility] Care Team Providers Care Voip Technician Name Role Phone Gehlot, Upender Unavailable Unavailable Gehlot, Upender Unavailable Unavailable EMPERATRIZ CERNA Unavailable Unavailable Sally Morejon Primary Care Provider Unavailable Primary Care Provider UnavailCANDACE Dubon Referring Unavailable Sally Morejon Primary Care Provider Sally Morejon CNP Primary Care Provider Shayla Valle Unavailable JUMANA Valle Attending Provider AICHHOLZ, CRUCIBLE PACKER VITO Admitting Unavailable AICHHOLZ, CRUCIBLE PACKER VITO Attending Unavailable AICHHOLZ, CRUCIBLE PACKER VITO Primary Care Unavailable AICHHOLZ, CRUCIBLE PACKER VITO Consulting Unavailable NORMA ., DR JIN Admitting Unavailable NORMA ., DR JIN Attending Unavailable AICHHOLZ, CRUCIBLE PACKER VITO Primary Care Unavailable NORMA ., DR JIN Consulting Unavailable DR BOBBI SIMONS Consulting Unavailable NORMA ., DR JIN Admitting Unavailable NORMA ., DR JIN Attending Unavailable AICHHOLZ, CRUCIBLE PACKER VITO Primary Care Unavailable NORMA ., DR JIN Consulting Unavailable DR BOBBI SIMONS Consulting Unavailable NORMA ., DR JIN Admitting Unavailable NORMA ., DR JIN Attending Unavailable AICHHOLZ, CRUCIBLE PACKER VITO Primary Care Unavailable NORMA ., DR JIN Consulting Unavailable AICHHOLZ, CRUCIBLE PACKER VITO Admitting Unavailable AICHHOLZ, CRUCIBLE PACKER VITO Attending Unavailable AICHHOLZ, CRUCIBLE PACKER VITO Primary Care Unavailable NORMA ., DR JIN Admitting Unavailable NORMA ., DR JIN Attending Unavailable AICHHOLZ, CRUCIBLE PACKER VITO Primary Care Unavailable NORMA ., DR JIN Consulting Unavailable NORMA ., DR JIN Admitting Unavailable NORMA ., DR JIN Attending Unavailable AICHHOLZ, CRUCIBLE PACKER VITO Primary Care Unavailable NORMA ., DR JIN Consulting Unavailable AGUBOSIM, WADE Consulting Unavailable SOFI XIAO Consulting Unavailable NORMA ., DR JIN Admitting Unavailable NORMA ., DR JIN Attending Unavailable AICHHOLZ, CRUCIBLE PACKER VITO Primary Care Unavailable NORMA ., DR JIN Consulting Unavailable AICHHOLZ, CRUCIBLE PACKER VITO Admitting Unavailable AICHHOLZ, CRUCIBLE PACKER VITO Attending Unavailable AICHHOLZ, CRUCIBLE PACKER VITO Primary Care Unavailable WEST, DR JO-ANN Nicolas Consulting Unavailable AICHHOLZ, CRUCIBLE PACKER VITO Consulting Unavailable Yoel Jarrett Unavailable MD Karan Romero Attending Provider NON STAFF Primary Care Provider Unavailabl e NON STAFF Primary Care Unavailable Karan Romero Attending Unavailabl Karan Osuna Admitting Unavailabl e Tori, Shayla Attending Unavailable Tori, Shayla Admitting Unavailable Delgado VOICE DATA COMMUNICATIONS ENGINEER-[facility], Freddie Primary Care Provider Unavailable Primary Care Provider Unavailabl e DELGADO, FREDDIE Attending Unavailable DELGADO, FREDDIE Referring Unavailable DELGADO, FREDDIE Primary Care Unavailable ROJAS, FIDENCIO Attending Unavailable DELGADO, FREDDIE Referring Unavailable DELGADO, FREDDIE Primary Care Unavailable Delgado, Freddie Primary Care Provider GURJIT ROBIN Attending Unavailable DELGADO, FREDDIE Referring Unavailable DELGADO, FREDDIE Primary Care Unavailable Delgado, Freddie Primary Care Provider BRANDI, FIDENCIO Attending Unavailable NORMA, ELIAZAR R Referring Unavailable DELGADO, FREDDIE Primary Care Unavailable ADILENE CESPEDES Attending Unavailable NORAM, ELIAZAR R Referring Unavailable DELGADO, FREDDIE Primary Care Unavailable NORMA, ELIAZAR R Referring Unavailable DELGADO, FREDDIE Primary Care Unavailable GERRY CASTANEDAY Attending Unavailable DIONNE BARNHART Attending Unavailable GERRY CASTANEDAY Attending Unavailable NORMA, ELIAZAR Attending Unavailable DAMEONDIONNE Attending Unavailable ELIAZAR CASTANEDA Attending Unavailable DEAN, CANDACE Admitting Unavailable DEAN, CANDACE Attending Unavailable DELGADO, FREDDIE Primary Care Unavailable LOBITO, LUJAN Referring Unavailable DELGADO, FREDDIE Primary Care Unavailable ROJAS, FIDENCIO Referring Unavailable DELGADO, FREDDIE Primary Care Unavailable DELGADO, FREDDIE ADRIAN Primary Care Unavail able ANA PEOPLES Attending Unavailab le ELLAFAROFRANSICO Referring Unavailable DELGADO, FREDDIE ADRIAN Primary Care Unavail able FRANSICO SHARP Attending Unavailable DELGADO, FREDDIE ADRIAN Primary Care Unavail able ABDANIEL PURIEK Attending Unavailable ABHYANKAR, USMAN Referring Unavailable DELGADO, FREDDIE ADRIAN Primary Care Unavail able ABHYANKAR, USMAN Referring Unavailable DELGADO, FREDDIE ADRIAN Primary Care Unavail able ANA PEOPLES Attending Unavailab le DELGADO, FREDDIE ADRIAN Primary Care Unavail able Allergies Allergy Classification Reported Allergen(s) Allergy Type Date of Onset Reaction(s) Facility (13 sources) Penicillins (Antibiotic) Allergy to substance 9 [facility] Work Phone: (8 sources) busPIRone Drug Allergy 0 [facility] Work Phone: (6 sources) Penicillin G Drug Allergy 3 [facility] Work Phone: (1 source) Penicillin Drug Allergy [facility] Repository (6 sources) Penicillins; Translations: [PENICILLINS] Drug allergy (disorder) 2 [facility] Repository (20 sources) Penicillins Propensity to adverse reactions to drug 2 Other (See Comments), Unknown [facility] (3 sources) Penicillins Drug Allergy 2 Unknown [facility] Healthcare Medications Current Medications Medication Drug Class(es) Dates Sig (Normalized) Sig (Original) [id number] 200 actuat albuterol 0.09 mg/actuat metered dose [...] Take 400 mg by mouth . nystatin [id number] unt/ml oral suspension (1 source) Polyene Antifungal Start: 05-29-2023 take 5 mL by mouth three times daily Nystatin [id number] UNIT/ML 5 ml Mouth/Throat 3 times a [...] 16, 2023 12:00am omeprazole magne sium (ACID DURABILITY ENGINEER, OMEPRAZOLE, ORAL) Take by mouth as directed. [...] above: Take by mouth as dir ected. tjleorrv72-kifj-twgas- omega3 29-1-400 mg combo pack,tablet & DR alex (9 sources) yiydxfsx41-eozv- folic -omega3 29-1-400 mg combo pack,tablet & capDR Take by mouth. 0 Active pyridoxine hydrochloride [...] mg/ml oral solution (4 sources) Phenothiazine, Uncompetitive S-kirhpg-B-aspartat e Receptor Antagonist, Sigma-1 Agonist Start: 01-08-2020 [...] Onset: 05-26-2022 Chronic Other conditions (1 source) [place] affected by other morphological and functional abnormalities of placenta; Translations: [[place] affected by other morphological and functional abnormalities [...] Score] Onset: 07-28-2019 Episodic Residual codes; unclassified (2 sources) Other hypersomnia; Translations: [Other hypersomnia] Onset: 01-14-2024 [...] Test Name Value Interpretation Reference Range Facility CT CHEST W IVCONon 4 CT CHEST W IVCON * * *Final Report* * * DATE OF EXAM: Feb 22 2024 11:19AM [facility] 0539 - CT CHEST W IVCON / PROCEDURE REASON: Malignant melanoma of skin (HCC) * * * * Physician Interpretation * * * * RESULT: EXAMINATION: CHEST CT WITH CONTRAST CLINICAL HISTORY: Malignant melanoma of skin (HCC) Technique: Spiral CT acquisition of the chest from the thoracic inlet to the upper abdomen following IV contrast. MQ: CTCWR_5 Contrast: 100 mL Omnipaque [address] Dose-Length Product: 853 mGy*cm CT Dose Reduction Employed: Automated exposure control (AEC) Comparison: No available comparisons. RESULT: Lines, tubes, and devices: None. Lung parenchyma and airways: Trachea and central airways are patent. Focal groundglass opacity left upper lobe (image 85). No solid nodule. Pleural space: No pleural effusion or pneumothorax. Lower neck, lymph nodes, and mediastinum: No axillary, supraclavicular, mediastinal or hilar lymphadenopathy by CT size criteria. Thymic tissue in anterior mediastinum. Heart, pericardium, and thoracic vessels: The heart is normal in size. No pericardial effusion. The thoracic aorta and main pulmonary artery are normal in caliber. Bones/Soft Tissues: No aggressive osseous lesions. Upper abdomen: Visualized upper abdomen is grossly unremarkable. Flower Shop Laborer/Designer (topogram) images: Unremarkable. IMPRESSION: Focal groundglass opacity left upper lobe is likely infectious/inflammato ry however attention on follow-up is recommended. No solid appearing pulmonary nodules or lymphadenopathy in the chest. Transcribe Date/Time: Feb 22 2024 2:02P Dictated by: GUSTAVO RDZ MD This examination was interpreted and the report reviewed and electronically signed by: GUSTAVO RDZ MD on Feb 22 2024 2:10PM EST Thank you for allowing us to participate in the care of your patient. Should there be any questions regarding this interpretation, please call [phone]. If you are unable to reach us at the number above, please feel free to contact [facility] at [phone]. [id number] N Normal [facility] CT NECK SOFT TISSUE W IVCONo n 02-22-2024 CT NECK SOFT TISSUE W IVCON * * *Final Report* * * DATE OF EXAM: Feb 22 2024 11:19AM [facility] 0013 - CT NECK SOFT TISSUE W IVCON / PROCEDURE REASON: Malignant melanoma of skin (HCC) * * * * Physician Interpretation * * * * RESULT: CT NECK SOFT TISSUE W IVCON History: Malignant melanoma of skin (HCC) Comparison: None Technique: A series of contiguous helical scans were performed from the skull base to the aortic arch with intravenous contrast. Contrast: Omnipaque 300. Contrast Dose: 100 cc Route of Administration: IV CT Radiation dose: Integrated Dose-length product (DLP) for this visit = 853 mGy*cm. CT Dose Reduction Employed: Automated exposure control (AEC) RESULT: Postoperative change: None apparent. Suprahyoid Neck: Nasopharynx and oropharynx appear normal. Parapharyngeal tissue planes are preserved. Oral cavity and floor of mouth appear normal within constraints of artifact from dental amalgam. Parotid and submandibular spaces are normal. Research And Development Researcher spaces appear normal. Infrahyoid Neck: Hypopharynx, larynx, and imaged infraglottic trachea appear normal. Imaged upper esophagus is unremarkable. Thyroid gland is homogeneous without evidence of discrete nodule. Lymph Nodes: No cervical lymphadenopathy by size criteria. Carotid Space: No masses. Patent extracranial carotid systems and internal jugular veins bilaterally. Orbits, Face and Skull Base: Orbital soft tissue planes are preserved. Small gas fluid level or debris in the sphenoid sinus. Paranasal sinuses are otherwise clear. Mastoid air cells and middle ear cavities are clear. No evidence of an osteolytic or osteoblastic process in the skull base. Imaged intracranial contents: No abnormal intracranial enhancement, mass effect, or hydrocephalus. Cervical spine and remaining osseous structures: No discrete osteolytic or osteoblastic process. No significant spondylotic changes in the visualized spine. Mild reversal of the normal cervical lordosis. Lung apices: For detailed intrathoracic findings, please see concurrent CT chest which is reported under a separate accession. Other: Not applicable. IMPRESSION: Normal contrast-enhanced CT neck. No pathologic enhancement or lymphadenopathy. Transcribe Date/Time: Feb 22 2024 11:32A Dictated by: CHAUNCEY GONZALEZ MD This examination was interpreted and the report reviewed and electronically signed by: CHAUNCEY GONZALEZ MD on Feb 22 2024 11:34AM EST Thank you for allowing us to participate in the care of your patient. Should there be any questions regarding this interpretation, please call [phone]. If you are unable to reach us at the number above, please feel free to contact [facility]iology at [phone]. [id number] N Normal [facility] CBC W Auto Differential pane l (Bld)on 02-20-2024 Basophils (Bld) [#/Vol] 0.03 10*3/uL Normal <0.11 [facility] Comment on above: Order Comment: Speci men Type: BLOOD SPECIMENOrdering Facility: [facility] Address: [address] [place] [address] Performed By: #### 5 7021-8 ####[facility] LABCLIA [id number] [place] [address] Basophils/100 WBC (Bld) 0.3 % Normal [facility] Comment on above: Order Comment: Speci men Type: BLOOD SPECIMENOrdering Facility: [facility] Address: [address] [place] [address] Performed By: #### 5 7021-8 ####[facility] LABCLIA [id number] [place] [address] Differential cell count method Nom (Bld) Auto Normal [facility] Comment on above: Order Comment: Speci men Type: BLOOD SPECIMENOrdering Facility: [facility] Address: [address] [place] [address] Performed By: #### 5 7021-8 ####[facility] LABCLIA [id number] [place] [address] Eosinophils (Bld) [#/Vol] 0.08 10*3/uL Normal <0.46 [facility] Comment on above: Order Comment: Speci men Type: BLOOD SPECIMENOrdering Facility: [facility] Address: [address] [place] [address] Performed By: #### 5 7021-8 ####[facility] LABCLIA [id number] [place] [address] Eosinophils/100 WBC (Bld) 0.8 % Normal [facility] Comment on above: Order Comment: Speci men Type: BLOOD SPECIMENOrdering Facility: [facility] Address: [address] [place] [address] Performed By: #### 5 7021-8 ####[facility] LABCLIA [id number] [place] [address] Erythrocyte distribution width (RBC) [Ratio] 13.5 % Normal 11.5-15.0 [facility] Comment on above: Order Comment: Speci men Type: BLOOD SPECIMENOrdering Facility: [facility] Address: [address] [place] [address] Performed By: #### 5 7021-8 ####[facility] LABCLIA [id number] [place] [address] Hematocrit (Bld) [Volume fraction] 33.4 % Low 36.0-46.0 [facility] Comment on above: Order Comment: Speci men Type: BLOOD SPECIMENOrdering Facility: [facility] Address: [address] [place] [address] Performed By: #### 5 7021-8 ####[facility] LABCLIA [id number] [place] [address] Hemoglobin (Bld) [Mass/Vol] 11.2 g/dL Low 11.5-15.5 [facility] Comment on above: Order Comment: Speci men Type: BLOOD SPECIMENOrdering Facility: [facility] Address: [address] [place] [address] Performed By: #### 5 7021-8 ####[facility] LABCLIA [id number] [place] [address] Immature granulocytes (Bld) [#/Vol] 0.07 10*3/uL Normal <0.10 [facility] Comment on above: Order Comment: Speci men Type: BLOOD SPECIMENOrdering Facility: [facility] Address: [address] [place] [address] Performed By: #### 5 7021-8 ####[facility] LABCLIA [id number] [place] [address] Immature granulocytes/100 WBC (Bld) 0.7 % Normal [facility] Comment on above: Order Comment: Speci men Type: BLOOD SPECIMENOrdering Facility: [facility] Address: [address] [place] [address] Performed By: #### 5 7021-8 ####[facility] LABCLIA [id number] [place] [address] Lymphocytes (Bld) [#/Vol] 1.13 10*3/uL Normal 1.00-4.00 [facility] Comment on above: Order Comment: Speci men Type: BLOOD SPECIMENOrdering Facility: [facility] Address: [address] [place] [address] Performed By: #### 5 7021-8 ####[facility] LABCLIA [id number] [place] [address] Lymphocytes/100 WBC (Bld) 10.7 % Normal [facility] Comment on above: Order Comment: Speci men Type: BLOOD SPECIMENOrdering Facility: [facility] Address: [address] [place] [address] Performed By: #### 5 7021-8 ####[facility] LABCLIA [id number] [place] [address] MCH (RBC) [Entitic mass] 29.5 pg Normal 26.0-34.0 [facility] Comment on above: Order Comment: Speci men Type: BLOOD SPECIMENOrdering Facility: [facility] Address: [address] [place] [address] Performed By: #### 5 7021-8 ####[facility] LABCLIA [id number] [place] [address] MCHC (RBC) [Mass/Vol] 33.5 g/dL Normal 30.5-36.0 [facility] Comment on above: Order Comment: Speci men Type: BLOOD SPECIMENOrdering Facility: [facility] Address: [address] [place] [address] Performed By: #### 5 7021-8 ####[facility] LABCLIA [id number] [place] [address] MCV (RBC) [Entitic vol] 87.9 fL Normal 80.0-100.0 [facility] Comment on above: Order Comment: Speci men Type: BLOOD SPECIMENOrdering Facility: [facility] Address: [address] [place] [address] Performed By: #### 5 7021-8 ####[facility] LABCLIA [id number] [place] [address] Monocytes (Bld) [#/Vol] 0.52 10*3/uL Normal <0.87 [facility] Comment on above: Order Comment: Speci men Type: BLOOD SPECIMENOrdering Facility: [facility] Address: [address] [place] [address] Performed By: #### 5 7021-8 ####[facility] LABCLIA [id number] [place] [address] Monocytes/100 WBC (Bld) 4.9 % Normal [facility] Comment on above: Order Comment: Speci men Type: BLOOD SPECIMENOrdering Facility: [facility] Address: [address] [place] [address] Performed By: #### 5 7021-8 ####[facility] LABCLIA [id number] [place] [address] Neutrophils (Bld) [#/Vol] 8.76 10*3/uL High 1.45-7.50 [facility] Comment on above: Order Comment: Speci men Type: BLOOD SPECIMENOrdering Facility: [facility] Address: [address] [place] [address] Performed By: #### 5 7021-8 ####[facility] LABCLIA [id number] [place] [address] Neutrophils/100 WBC (Bld) 82.6 % Normal [facility] Comment on above: Order Comment: Speci men Type: BLOOD SPECIMENOrdering Facility: [facility] Address: [address] [place] [address] Performed By: #### 5 7021-8 ####[facility] LABCLIA [id number] [place] [address] Nucleated RBC (Bld) [#/Vol] 10*3/uL Normal <0.01 [facility] Comment on above: Order Comment: Speci men Type: BLOOD SPECIMENOrdering Facility: [facility] Address: [address] [place] [address] Performed By: #### 5 7021-8 ####[facility] LABCLIA [id number] [place] [address] Nucleated RBC/100 WBC (Bld) [Ratio] 0.0 /100 WBC Normal [facility] Comment on above: Order Comment: Speci men Type: BLOOD SPECIMENOrdering Facility: [facility] Address: [address] [place] [address] Performed By: #### 5 7021-8 ####[facility] LABCLIA [id number] [place] [address] Platelet mean volume (Bld) [Entitic vol] 10.0 fL Normal 9.0-12.7 [facility] Comment on above: Order Comment: Speci men Type: BLOOD SPECIMENOrdering Facility: [facility] Address: [address] [place] [address] Performed By: #### 5 7021-8 ####[facility] LABCLIA [id number] [place] [address] Platelets (Bld) [#/Vol] 199 10*3/uL Normal 150-400 [facility] Comment on above: Order Comment: Speci men Type: BLOOD SPECIMENOrdering Facility: [facility] Address: [address] [place] [address] Performed By: #### 5 7021-8 ####[facility] LABIA [id number] [place] [address] RBC (Bld) [#/Vol] 3.80 10*6/uL Low 3.90-5.20 [facility] Comment on above: Order Comment: Speci men Type: BLOOD SPECIMENOrdering Facility: [facility] Address: [address] [place] [address] Performed By: #### 5 7021-8 ####[facility] LABIA [id number] [place] [address] WBC (Bld) [#/Vol] 10.59 10*3/uL Normal 3.70-11.00 [facility] Comment on above: Order Comment: Speci men Type: BLOOD SPECIMENOrdering Facility: [facility] Address: [address] [place] [address] Performed By: #### 5 7021-8 ####[facility] LABIA [id number] [place] [address] Comprehensive metabolic 2000 panelon 02-20-2024 Albumin [Mass/Vol] 3.8 g/dL Low 3.9-4.9 [facility] Comment on above: Order Comment: Speci men Type: BLOOD SPECIMENOrdering Facility: [facility] Address: [facility] [place] [address] Performed By: #### 2 4323-8, 2531-0 ####[facility] LABCLIA [id number] [place] [address] ALP [Catalytic activity/Vol] 161 U/L High 34-123 [facility] Comment on above: Order Comment: Speci men Type: BLOOD SPECIMENOrdering Facility: [facility] Address: [address] [place] [address] Performed By: #### 2 432-8, 2531-0 ####[facility] LABCLIA [id number] [place] [address] ALT [Catalytic activity/Vol] 13 U/L Normal 7-38 [facility] Comment on above: Order Comment: Speci men Type: BLOOD SPECIMENOrdering Facility: [facility] Address: [address] [place], [place] [address] Performed By: #### 2 4323-8, 2531-0 ####[facility] LABCLIA [id number] [place] [address] Anion gap [Moles/Vol] 10 mmol/L Normal 9-18 [facility] Comment on above: Order Comment: Speci men Type: BLOOD SPECIMENOrdering Facility: [facility] Address: [address] [place] [address] Performed By: #### 2 4323-8, 2531-0 ####[facility] LABCLIA [id number] [place] [address] AST [Catalytic activity/Vol] 21 U/L Normal 13-35 [facility] Comment on above: Order Comment: Speci men Type: BLOOD SPECIMENOrdering Facility: [facility] Address: [address] [place] [address] Performed By: #### 2 4323-8, 2532-0 ####[facility] LABCLIA [id number] [place] [address] Bilirubin [Mass/Vol] 0.2 mg/dL Normal 0.2-1.3 [facility] Comment on above: Order Comment: Speci men Type: BLOOD SPECIMENOrdering Facility: [facility] Address: [address] [place] [address] Performed By: #### 2 4323-8, 2531-0 ####[facility] LABCLIA [id number] [place] [address] Calcium [Mass/Vol] 10.1 mg/dL Normal 8.5-10.2 [facility] Comment on above: Order Comment: Speci men Type: BLOOD SPECIMENOrdering Facility: [facility] Address: [address] [place] [address] Performed By: #### 2 43238, 2531-0 ####[facility] LABCLIA [id number] [place] [address] Chloride [Moles/Vol] 103 mmol/L Normal 97-105 [facility] Comment on above: Order Comment: Speci men Type: BLOOD SPECIMENOrdering Facility: [facility] Address: [address] [place] [address] Performed By: #### 2 4323-8, 2531-0 ####[facility] LABCLIA [id number] [place] [address] CO2 [Moles/Vol] 21 mmol/L Low 22-30 [facility] Comment on above: Order Comment: Speci men Type: BLOOD SPECIMENOrdering Facility: [facility] Address: [address] [place] [address] Performed By: #### 2 4323-8, 2531-0 ####[facility] LABCLIA [id number] [place] [address] Creatinine [Mass/Vol] 0.61 mg/dL Normal 0.58-0.96 [facility] Comment on above: Order Comment: Kavin childress Type: BLOOD SPECIMENOrdering Facility: [facility] Address: [address] [place] [address] Performed By: #### 2 4323-8, 2532-0 ####[facility] LABCLIA [id number] [place] [address] Creatinine and Glomerular filtration rate.predicted panel (S/P/Bld) 120 mL/min/1.73m??? Normal >=60 [facility] Comment on above: Order Comment: Kavin childress Type: BLOOD SPECIMENOrdering Facility: [facility] [facility] Address: [address] [place] [address] Result Comment: Araseli mated Glomerular Filtration Rate [...] actual GFR. Performed By: #### 2 4323-8, 2532-0 ####[facility] LABCLIA [id number] [place] [address] Glucose [Mass/Vol] 85 mg/dL Normal 74-99 [facility] Comment on above: Order Comment: Kavin childress Type: BLOOD SPECIMENOrdering Facility: [facility] Address: [address] [id number] Result Comment: The [place] [employer] (ADA) provides guidance for cutoff [...] Standards of Medical Care in Diabetes 2016, [place] [employer]. Diabetes Care. 2016.39(Suppl 1). Performed By: #### 2 4323-8, 2531-0 ####[facility] LABCLIA [id number] [place] [address] Potassium [Moles/Vol] 3.9 mmol/L Normal 3.7-5.1 [facility] Comment on above: Order Comment: Speci men Type: BLOOD SPECIMENOrdering Facility: [facility] Address: [address] [place] [address] Performed By: #### 2 4328, 2531-0 ####[facility] LABCLIA [id number] [place] [address] Protein [Mass/Vol] 7.2 g/dL Normal 6.3-8.0 [facility] Comment on above: Order Comment: Speci men Type: BLOOD SPECIMENOrdering Facility: [facility] Address: [address] [place] [address] Performed By: #### 2 4328, 2531-0 ####[facility] LABCLIA [id number] [place] [address] Sodium [Moles/Vol] 134 mmol/L Low 136-144 [facility] Comment on above: Order Comment: Speci men Type: BLOOD SPECIMENOrdering Facility: [facility] Address: [address] [place] [address] Performed By: #### 2 4328, 2531-0 ####[facility] LABCLIA [id number] [place] [address] Urea nitrogen [Mass/Vol] 6 mg/dL Low 7-21 [facility] Comment on above: Order Comment: Speci men Type: BLOOD SPECIMENOrdering Facility: [facility] Address: [address] [place] [address] Performed By: #### 2 4323-8, 2531-0 ####[facility] LABCLIA [id number] [place] [address] LDH SerPl-cCncon 02-20-2024 LDH [Catalytic activity/Vol] 210 U/L Normal 135-214 [facility] Comment on above: Order Comment: Speci men Type: BLOOD SPECIMENOrdering Facility: [facility] Address: [address] [place] [address] Performed By: #### 2 4323-8, 2531-0 ####[facility] LABCLIA [id number] [place] [address] COMPLETE BLOOD COUNTon 01-28 Erythrocyte distribution width (RBC) [Ratio] 13.6 % Normal 11.5-15.0 [facility] Comment on above: Performed By: #### C NATASHA MESSER, 0, 3083-10 #### [facility] ([id number]) [address] [place] [address] Hematocrit (Bld) [Volume fraction] 29.4 % Low 35-47 [facility] Comment on above: Performed By: #### Adri MESSER CMP, 0, 3083-1 #### [facility] ([id number]) [address] [place] [address] Hemoglobin (Bld) [Mass/Vol] 10.4 g/dL Low 11.7-15.5 [facility] Comment on above: Performed By: #### Adri MESSER CMP, 0, 3083-10 #### [facility] ([id number]) [address] [place] [address] 26510 MCH (RBC) [Entitic mass] 31.0 pg Normal 27-34 [facility] Comment on above: Performed By: #### Adri MESSER CMP, 0, 3083-1 #### [facility] ([id number]) [address] [place] [address] MCHC (RBC) [Mass/Vol] 35.3 g/dL Normal 32-36 [facility] Comment on above: Performed By: #### C GUI CMP, 2532-0, 3083-1 #### [facility] ([id number]) [address] [place] [address] 42597 MCV (RBC) [Entitic vol] 88 fL Normal 80-100 [facility] Comment on above: Performed By: #### Adri MESSER CMP, 2531-0, 3083-1 #### [facility] ([id number]) [address] [place] [address]7973 Platelet mean volume (Bld) [Entitic vol] 8.1 fL Normal 7-12 [facility] Comment on above: Performed By: #### Adri MESSER CMP, 2531-0, 3083-1 #### [facility] ([id number]) [address] [place] [address]808 Platelets (Bld) [#/Vol] 205 10*3/uL Normal 150-450 [facility] Comment on above: Performed By: #### Adri MESSER CMP, 2531-0, 3083-1 #### [facility] ([id number]) [address] [place] [address] 48186 RBC COUNT 3.34 X10E12/L Low 3.80-5.20 [facility] Comment on above: Performed By: #### Adri MESSER CMP, 2531-0, 3083-10 #### [facility] ([id number]) [address] [place] [address]5845 WBC (Bld) [#/Vol] 8.2 10*3/uL Normal 4.0-11.0 [facility] Comment on above: Performed By: #### Adri MESSER CMP, 2532-0, 3083-1 #### [facility] ([id number]) [address] [place] [address] COMPREHENSIVE METABOLIC PANE Joel 04-30-2024 Albumin [Mass/Vol] 2.8 g/dL Low 3.2-5.3 [facility] Comment on above: Performed By: #### C NATASHA MESSER, 0, 3083- #### [facility] ([id number]) [address] [place] [address]34 ALP [Catalytic activity/Vol] 103 U/L Normal 39-130 [facility] Comment on above: Performed By: #### Adri MESSER CMP, 0, 3083-10 #### [facility] ([id number]) [address] [place] [address]502 ALT [Catalytic activity/Vol] 16 U/L Normal 0-31 [facility] Comment on above: Performed By: #### Adri MESSER CMP, 0, 3083-10 #### [facility] ([id number]) [address] [place] [address] 52698 Anion gap [Moles/Vol] 9 mmol/L Normal 5-15 [facility] Comment on above: Performed By: #### Adri MESSER CMP, 0, 3083-10 #### [facility] ([id number]) [address] [place] [address] 67893 AST [Catalytic activity/Vol] 18 U/L Normal 0-41 [facility] Comment on above: Performed By: #### Adri MESSER CMP, 0, 3083-10 #### [facility] ([id number]) [address] [place] [address] 72867 Bilirubin [Mass/Vol] 0.3 mg/dL Normal 0.3-1.2 [facility] Comment on above: Performed By: #### Adri MESSER CMP, 0, 3083-10 #### [facility] ([id number]) [address] [place] [address]25 Calcium [Mass/Vol] 9.2 mg/dL Normal 8.5-10.5 [facility] Comment on above: Performed By: #### Adri MESSER CMP, 2532-0, 3083-1 #### [facility] ([id number]) [address] [place] [address] 32757 Chloride [Moles/Vol] 105 mmol/L Normal 98-109 [facility] Comment on above: Performed By: #### Adri MESSER CMP, 253-0, 3083-1 #### [facility] ([id number]) [address] [place] [address] 24305 CO2 [Moles/Vol] 22 mmol/L Normal 22-32 [facility] Comment on above: Performed By: #### Adri MESSER CMP, 253-0, 3083-10 #### [facility] ([id number]) [address] [place] [address]3983 Creatinine [Mass/Vol] 0.51 mg/dL Normal 0.40-1.00 [facility] Comment on above: Result Comment: METH OD TRACEABLE TO IDMS STANDARD Performed By: #### Adri MESSER CMP, 0, 3083-10 #### [facility] ([id number]) [address] [place] [address]608 eGFR (CKD-EPI) NON-RACE DEPENDENT >90 Normal >59 [facility] Comment on above: Result Comment: Reported eGFR is based on the CKD-EPI 2021 equation that does not use a race coefficient. Performed By: #### Adri MESSER CMP, 2532-0, 3083-1 #### [facility] ([id number]) [address] [place] [address] Glucose [Mass/Vol] 96 mg/dL Normal 65-99 [facility] Comment on above: Performed By: #### Adri MESSER CMP, 2532-0, 3083-1 #### [facility] ([id number]) [address] [place] [address] Potassium [Moles/Vol] 4.1 mmol/L Normal 3.5-5.0 [facility] Comment on above: Performed By: #### C BC, [facility], 2531-0, 3083-1 #### [facility] ([id number]) [address] [place] [address] 99327 Protein [Mass/Vol] 6.5 g/dL Normal 6.0-8.0 [facility] Comment on above: Performed By: #### C GUI, [facility], 0, 3083- #### [facility] ([id number]) [address] [place] [address] 13264 Sodium [Moles/Vol] 136 mmol/L Normal 134-146 [facility] Comment on above: Performed By: #### Adri MESSER [facility], 0, 3083-10 #### [facility] ([id number]) [address] [place] [address] 17323 Urea nitrogen [Mass/Vol] 5 mg/dL Normal 5-23 [facility] Comment on above: Performed By: #### Adri BC, [facility], 0, 3083-10 #### [facility] ([id number]) [address] [place] [address] 90268 LDH [Catalytic activity/Vol] on 01-29-2024 LDH 128 U/L Normal 100-235 [facility] Comment on above: Performed By: #### C BC, CMP, 0, 3083-10 #### [facility] ([id number]) [address] [place] [address] 80602 PROTEIN CREAT RATIOon 2023 RANDOM URINE PROTEIN 30 mg/L Normal <120 [facility] Comment on above: Performed By: #### U PCR #### [facility] ([id number]) [address] [place] [address] 08745 U/PRO/CARE ASSISTANT RATIO CALC 0.12 Normal <0.2 [facility] Comment on above: Result Comment: Neph rotic Syndrome is associated with ratios >3.5 Performed By: #### U PCR #### [facility] ([id number]) [address] [place] [address] 21021 URINE CREATININE,RDM 25.84 mg/dL Normal [facility] Comment on above: Performed By: #### U PCR #### [facility] ([id number]) [address] [place] [address] 65382 URIC ACIDon 01-29-2024 Urate [Mass/Vol] 4.1 mg/dL Normal 2.6-7.2 [facility] Comment on above: Performed By: #### C BC, CMP, 2532-0, 3084-1 #### [facility] ([id number]) [address] [place] [address]707 CNPNon 01-25-2024 CNPN Telephone (PLASMN) VY MCKEON ([id number]) 1990 F Date Time Provider Department 01/25/24 [...] BRITNEY - Fully Assessed Reason for Visit: Appointment [...] mg by mouth. - omeprazole magnesium (ACID DURABILITY ENGINEER, OMEPRAZOLE, ORAL) Take by mouth as directed. [...] Encounter Status:Closed by CYNTHIA PETTY on 01/25/24 [facility] 01-22-2024 [facility] Telephone ([id number]) VY MCKEON ([id number]) 1990 F Date Time Provider Department 01/22/24 [facility] [id number] During your visit today, we recorded the following information about you: Ana Peoples MD 01/22/2024 3:44 PM Signed 01/22/2024 [facility] Pt called and identified ~ 12:30 [...] Date Reviewed: 01/21/2024 Reviewed by: Reji Manning RN - Fully Assessed Prescriptions as of [...] mg by mouth. - omeprazole magnesium (ACID DURABILITY ENGINEER, OMEPRAZOLE, ORAL) Take by mouth as directed. [...] Encounter Status:Closed by ANA PEOPLES on 01/22/24 [facility] CNPN Telephone (HEMASA) OTTOTONNY CastellanoVY ([id number]) 1990 F Date Time Provider Department 01/22/24 [...] sound right? (February 19) Thanks, louisa. Lindsay Murray, BRITNEY 01/24/2024 9:20 AM Signed Is the lab [...] Vy Deshpande: Please advise BRITNEY Hernandez Rebecca, BRITNEY 01/24/2024 9:38 AM Signed Ana Peoples MD Abhyankar, Vivek, MD 1 hour ago (8:13 AM) MACK Ndiaye, That is fine obstetrically if you are [...] to be done prior to CT. Brandon Chruchill RN 01/24/2024 12:24 PM Signed Clerical: Please [...] Date Reviewed: 01/21/2024 Reviewed by: Reji Manning RN - Fully Assessed Reason for Visit: Scans [867] Primary Visit Diagnosis:Malignant melanoma of skin (HCC) [C43.9] Order(s):CT NECK SOFT TISSUE W IVCON [[id number]] Order #: [id number] FUTURE [] iv contrast (will be provided [...] 1 EachRfl: 0 CT CHEST W IVCON [[id number]] Order #: [id number] FUTURE [] iv contrast (will be provided [...] EachRfl: 0 LACTATE DEHYDROGENASE [SQLD6] Order #: [id number] FUTURE COMPLETE BLOOD COUNT AND DIFFERENTIAL [SQCBCDIF] Order #: [id number] FUTURE COMPREHENSIVE METABOLIC PANEL [SQCMP] Order #: [id number] FUTURE Prescriptions as of 01/30/2024 - diphenhydramine [...] mg by mouth. - omeprazole magnesium (ACID DURABILITY ENGINEER, OMEPRAZOLE, ORAL) Take by mouth as directed. [...] In Off (more content not included)... Normal [facility] Examination level ultrasound on 01-21-2024 Indication anatomy [...] 9 oz EFW by: Hadlock (HC-AC-FL) Extended Table Setter 3.1 mm CM 7.6 mm 70% Nicolaides [...] normal LVOT view: normal 3-vessel view: normal 8-sokaph-njmmfrq view: normal Heart / Thorax Situs: situs [...] Read By: Ana Peoples MD MATERNAL MEDICINE [facility] Radiology Study observation (narrative) [facility] [place] 01-18-2024 [facility] Telephone (OBGYF2) VY MCKEON ([id number]) 1990 F Date Time Provider Department 01/18/24 OB [facility] OBGYF2 During your visit today, [...] mg by mouth. - omeprazole magnesium (ACID DURABILITY ENGINEER, OMEPRAZOLE, ORAL) Take by mouth as directed. - PNV no.95/ferrous fum/folic ac ( ORAL) Take by mouth as directed. Problem List As Of Date: 01/18/2024 (None) Encounter Status:Closed by JOSE L CROWLEY on 01/18/24 [facility] [place] 01-10-2024 CNPN Telephone (OBGYF2) VY MCKEON ([id number]) 1990 F Date Time Provider Department 01/10/24 [...] mg by mouth. - omeprazole magnesium (ACID DURABILITY ENGINEER, OMEPRAZOLE, ORAL) Take by mouth as directed. - PNV no.95/ferrous fum/folic ac ( ORAL) Take by mouth as directed. Problem List As Of Date: 01/10/2024 (None) Encounter Status:Closed by ROLO PARADA on 01/10/24 [facility] [place] 01-09-2024 CNPN Telephone (PLASMN) MIKEVY ([id number]) 1990 F Date Time Provider Department 01/09/24 FRANSICO SHARP During your visit today, we recorded the following information about you: Fernanda Michael 01/09/2024 9:55 AM Signed Patient called that she is seeing Maternal Med, in her area and was questioning does she need to see one at the [facility]? She is asking for a call.. she is very nervous Surjit Griggs, RN 01/09/2024 12:42 PM Signed Reached out to patient. Instructions provided to see a maternal medicine specialist within the [facility] per Dr. Sharp. This nurse [...] mg by mouth. - omeprazole magnesium (ACID DURABILITY ENGINEER, OMEPRAZOLE, ORAL) Take by mouth as directed. - PNV no.95/ferrous fum/folic ac ( ORAL) Take by mouth as directed. Problem List As Of Date: 01/09/2024 (None) Encounter Status:Closed by FERNANDA MICHAEL on 01/09/24 Normal [facility] CNOVSPon 01-04-2024 CNOVSP Visit (SP) Office (PLASCA) VY MCKEON ([id number]) 1990 F Date Time Provider Department 01/04/24 2:15 PM FRANSICO SHARP During your visit today, we recorded the following information about you: Temperature Pulse Respiration Blood pressure 97.1 degrees 94/minute 20/minute 148/83 Fransico Sharp MD 01/06/2024 9:42 AM Signed DATE: January 03, 2024 CC: New Melanoma Patient Referring Physician: Margarita Kim MD at Dermatology Count Includes [facility] in [place] HPI: Vy Mckeon is a 33 year [...] 400 mg by mouth. omeprazole magnesium (ACID DURABILITY ENGINEER, OMEPRAZOLE, ORAL) Take by mouth as directed. [...] left upper lip with a variegated pattern, pond sawyer in the middle with a number of dark spots. The lesion measures 1 cm in diameter. Photos taken, see [facility] Get Images LABS: Pathology Report - [...] taken and uploaded to chart today via [employer] - Pathology re-read to be obtained - Surgical plan is for resection of left upper lip melano (more content not included)... Normal [facility] CBC W Auto Differential pane l (Bld)on 12-26-2023 Basophils (Bld) [#/Vol] 0.03 10*3/uL Normal <0.11 [facility] Comment on above: Order Comment: Speci men Type: BLOOD SPECIMENOrdering Facility: [facility] Address: [address] [place] [address] Performed By: #### 5 7021-8 ####[facility] LABCLIA [id number] [place] [address] Basophils/100 WBC (Bld) 0.3 % Normal [facility] Comment on above: Order Comment: Speci men Type: BLOOD SPECIMENOrdering Facility: [facility] Address: [address] [place] [address] Performed By: #### 5 7021-8 ####[facility] LABCLIA [id number] [place] [address] Differential cell count method Nom (Bld) Auto Normal [facility] Comment on above: Order Comment: Speci men Type: BLOOD SPECIMENOrdering Facility: [facility] Address: [address] [place] [address] Performed By: #### 5 7021-8 ####[facility] LABCLIA [id number] [place] [address] Eosinophils (Bld) [#/Vol] 0.15 10*3/uL Normal <0.46 [facility] Comment on above: Order Comment: Speci men Type: BLOOD SPECIMENOrdering Facility: [facility] Address: [address] [place] [address] Performed By: #### 5 7021-8 ####[facility] LABCLIA [id number] [place] [address] Eosinophils/100 WBC (Bld) 1.5 % Normal [facility] Comment on above: Order Comment: Speci men Type: BLOOD SPECIMENOrdering Facility: [facility] Address: [address] [place] [address] Performed By: #### 5 7021-8 ####[facility] LABCLIA [id number] [place] [address] Erythrocyte distribution width (RBC) [Ratio] 13.5 % Normal 11.5-15.0 [facility] Comment on above: Order Comment: Speci men Type: BLOOD SPECIMENOrdering Facility: [facility] Address: [address] [place] [address] Performed By: #### 5 7021-8 ####[facility] LABCLIA [id number] [place] [address] Hematocrit (Bld) [Volume fraction] 35.5 % Low 36.0-46.0 [facility] Comment on above: Order Comment: Speci men Type: BLOOD SPECIMENOrdering Facility: [facility] Address: [address] [place] [address] Performed By: #### 5 7021-8 ####[facility] LABCLIA [id number] [place] [address] Hemoglobin (Bld) [Mass/Vol] 12.0 g/dL Normal 11.5-15.5 [facility] Comment on above: Order Comment: Speci men Type: BLOOD SPECIMENOrdering Facility: [facility] Address: [address] [place] [address] Performed By: #### 5 7021-8 ####[facility] LABCLIA [id number] [place] [address] Immature granulocytes (Bld) [#/Vol] 0.06 10*3/uL Normal <0.10 [facility] Comment on above: Order Comment: Speci men Type: BLOOD SPECIMENOrdering Facility: [facility] Address: [address] [place] [address] Performed By: #### 5 7021-8 ####[facility] LABCLIA [id number] [place] [address] Immature granulocytes/100 WBC (Bld) 0.6 % Normal [facility] Comment on above: Order Comment: Speci men Type: BLOOD SPECIMENOrdering Facility: [facility] Address: [address] [place] [address] Performed By: #### 5 7021-8 ####[facility] LABCLIA [id number] [place] [address] Lymphocytes (Bld) [#/Vol] 1.46 10*3/uL Normal 1.00-4.00 [facility] Comment on above: Order Comment: Speci men Type: BLOOD SPECIMENOrdering Facility: [facility] Address: [address] [place] [address] Performed By: #### 5 7021-8 ####[facility] LABCLIA [id number] [place] [address] Lymphocytes/100 WBC (Bld) 15.0 % Normal [facility] Comment on above: Order Comment: Speci men Type: BLOOD SPECIMENOrdering Facility: [facility] Address: [address] [place] [address] Performed By: #### 5 7021-8 ####[facility] LABCLIA [id number] [place] [address] MCH (RBC) [Entitic mass] 30.1 pg Normal 26.0-34.0 [facility] Comment on above: Order Comment: Speci men Type: BLOOD SPECIMENOrdering Facility: [facility] Address: [address] [place] [address] Performed By: #### 5 7021-8 ####[facility] LABCLIA [id number] [place] [address] MCHC (RBC) [Mass/Vol] 33.8 g/dL Normal 30.5-36.0 [facility] Comment on above: Order Comment: Speci men Type: BLOOD SPECIMENOrdering Facility: [facility] Address: [address] [place] [address] Performed By: #### 5 7021-8 ####[facility] LABCLIA [id number] [place] [address] MCV (RBC) [Entitic vol] 89.0 fL Normal 80.0-100.0 [facility] Comment on above: Order Comment: Speci men Type: BLOOD SPECIMENOrdering Facility: [facility] Address: [address] [place] [address] Performed By: #### 5 7021-8 ####[facility] LABCLIA [id number] [place] [address] Monocytes (Bld) [#/Vol] 0.50 10*3/uL Normal <0.87 [facility] Comment on above: Order Comment: Speci men Type: BLOOD SPECIMENOrdering Facility: [facility] Address: [address] [place] [address] Performed By: #### 5 7021-8 ####[facility] LABCLIA [id number] [place] [address] Monocytes/100 WBC (Bld) 5.1 % Normal [facility] Comment on above: Order Comment: Speci men Type: BLOOD SPECIMENOrdering Facility: [facility] Address: [address] [place] [address] Performed By: #### 5 7021-8 ####[facility] LABCLIA [id number] [place] [address] Neutrophils (Bld) [#/Vol] 7.52 10*3/uL High 1.45-7.50 [facility] Comment on above: Order Comment: Speci men Type: BLOOD SPECIMENOrdering Facility: [facility] Address: [address] [place] [address] Performed By: #### 5 7021-8 ####[facility] LABCLIA [id number] [place] [address] Neutrophils/100 WBC (Bld) 77.5 % Normal [facility] Comment on above: Order Comment: Speci men Type: BLOOD SPECIMENOrdering Facility: [facility] Address: [address] [place] [address] Performed By: #### 5 7021-8 ####[facility] LABCLIA [id number] [place] [address] Nucleated RBC (Bld) [#/Vol] 10*3/uL Normal <0.01 [facility] Comment on above: Order Comment: Speci men Type: BLOOD SPECIMENOrdering Facility: [facility] Address: [address] [place] [address] Performed By: #### 5 7021-8 ####[facility] LABCLIA [id number] [place] [address] Nucleated RBC/100 WBC (Bld) [Ratio] 0.0 /100 WBC Normal [facility] Comment on above: Order Comment: Speci men Type: BLOOD SPECIMENOrdering Facility: [facility] Address: [address] [place] [address] Performed By: #### 5 7021-8 ####[facility] LABCLIA [id number] [place] [address] Platelet mean volume (Bld) [Entitic vol] 10.1 fL Normal 9.0-12.7 [facility] Comment on above: Order Comment: Speci men Type: BLOOD SPECIMENOrdering Facility: [facility] Address: [address] [place] [address] Performed By: #### 5 7021-8 ####[facility] LABCLIA [id number] [place] [address] Platelets (Bld) [#/Vol] 224 10*3/uL Normal 150-400 [facility] Comment on above: Order Comment: Speci men Type: BLOOD SPECIMENOrdering Facility: [facility] Address: [address] [place] [address] Performed By: #### 5 7021-8 ####[facility] [id number] [place] [address] RBC (Bld) [#/Vol] 3.99 10*6/uL Normal 3.90-5.20 [facility] Comment on above: Order Comment: Speci men Type: BLOOD SPECIMENOrdering Facility: [facility] Address: [address] [place] [address] Performed By: #### 5 7021-8 ####[facility] [id number] [place] [address] WBC (Bld) [#/Vol] 9.72 10*3/uL Normal 3.70-11.00 [facility] Comment on above: Order Comment: Speci men Type: BLOOD SPECIMENOrdering Facility: [facility] Address: [address] [place] [address] Performed By: #### 5 7021-8 ####[facility] [id number] [place] [address] CNOVSPon 12-26-2023 CNOVS Visit (SP) Office (HEMASA) VY MCKEON ([id number]) 1990 F Date Time Provider Department 12/26/23 3:30 PM USMAN GOLDBERG During your visit today, we recorded the following information about you: Temperature Pulse Respiration Blood pressure 97.3 degrees 87/minute 16/minute 134/74 Weight Height Last Period 86.1 kg 1.702 m 06/24/23 Usman Goldberg MD 12/27/2023 12:46 PM Signed NAME: Vy Mckeon NO.: [id number] DATE OF SERVICE: December 26, 2023 (Krystal) [...] magnesium (ACID (more content not included)... Normal [facility] Comprehensive metabolic 2000 panelon 12-26-2023 Albumin [Mass/Vol] 3.9 g/dL Normal 3.9-4.9 [facility] Comment on above: Order Comment: Speci men Type: BLOOD SPECIMENOrdering Facility: [facility] Address: [address] [place] [address] Performed By: #### 2 4323-8, 2532-0 ####[facility] LABCLIA [id number] [place] [address] ALP [Catalytic activity/Vol] 109 U/L Normal 34-123 [facility] Comment on above: Order Comment: Speci men Type: BLOOD SPECIMENOrdering Facility: [facility] Address: [address] [place], [place] [address] Performed By: #### 2 4323-8, 2531-0 ####[facility] LABCLIA [id number] [place] [address] ALT [Catalytic activity/Vol] 26 U/L Normal 7-38 [facility] Comment on above: Order Comment: Speci men Type: BLOOD SPECIMENOrdering Facility: [facility] Address: [address] [place] [address] Performed By: #### 2 4323-8, 2531-0 ####[facility] LABCLIA [id number] [place] [address] Anion gap [Moles/Vol] 10 mmol/L Normal 9-18 [facility] Comment on above: Order Comment: Speci men Type: BLOOD SPECIMENOrdering Facility: [facility] Address: [address] [place] [address] Performed By: #### 2 4323-8, 2531-0 ####[facility] LABCLIA [id number] [place] [address] AST [Catalytic activity/Vol] 26 U/L Normal 13-35 [facility] Comment on above: Order Comment: Speci men Type: BLOOD SPECIMENOrdering Facility: [facility] Address: [address] [place], [place] [address] Performed By: #### 2 4323-8, 2531-0 ####[facility] LABCLIA [id number] [place] [address] Bilirubin [Mass/Vol] 0.2 mg/dL Normal 0.2-1.3 [facility] Comment on above: Order Comment: Speci men Type: BLOOD SPECIMENOrdering Facility: [facility] Address: [address] [place], [place] [address] Performed By: #### 2 4323-8, 2531-0 ####[facility] LABCLIA [id number] [place] [address] Calcium [Mass/Vol] 10.1 mg/dL Normal 8.5-10.2 [facility] Comment on above: Order Comment: Speci men Type: BLOOD SPECIMENOrdering Facility: [facility] Address: [address] [place] [address] Performed By: #### 2 432-8, 2531-0 ####[facility] LABCLIA [id number] [place] [address] Chloride [Moles/Vol] 103 mmol/L Normal 97-105 [facility] Comment on above: Order Comment: Speci men Type: BLOOD SPECIMENOrdering Facility: [facility] Address: [address] [place] [address] Performed By: #### 2 432-8, 0 ####[facility] LABCLIA [id number] [place] [address] CO2 [Moles/Vol] 23 mmol/L Normal 22-30 [facility] Comment on above: Order Comment: Speci men Type: BLOOD SPECIMENOrdering Facility: [facility] Address: [address] [place] [address] Performed By: #### 2 4323-8, 0 ####[facility] LABCLIA [id number] [place] [address] Creatinine [Mass/Vol] 0.64 mg/dL Normal 0.58-0.96 [facility] Comment on above: Order Comment: Speci men Type: BLOOD SPECIMENOrdering Facility: [facility] Address: [address] [place] [address] Performed By: #### 2 4323-8, 2531-0 ####[facility] LABCLIA [id number] [place] [address] Creatinine and Glomerular filtration rate.predicted panel (S/P/Bld) 118 mL/min/1.73m??? Normal >=60 [facility] Comment on above: Order Comment: Kavin childress Type: BLOOD SPECIMENOrdering Facility: [facility] Address: [address] [place] [address] Result Comment: Araseli mated Glomerular Filtration Rate [...] actual GFR. Performed By: #### 2 4323-8, 2531-0 ####[facility] LABCLIA [id number] [place] [address] Glucose [Mass/Vol] 85 mg/dL Normal 74-99 [facility] Comment on above: Order Comment: Kavin childress Type: BLOOD SPECIMENOrdering Facility: [facility] Address: [address] [place] [address] Result Comment: The [place] [employer] (ADA) provides guidance for cutoff [...] Standards of Medical Care in Diabetes 2016, [place] [employer]. Diabetes Care. 2016.39(Suppl 1). Performed By: #### 2 4323-8, 0 ####[facility] LABCLIA [id number] [place] [address] Potassium [Moles/Vol] 4.1 mmol/L Normal 3.7-5.1 [facility] Comment on above: Order Comment: Speci men Type: BLOOD SPECIMENOrdering Facility: [facility] Address: [address] [place] [address] Performed By: #### 2 4323-8, 2531-0 ####[facility] LABCLIA [id number] [place] [address] Protein [Mass/Vol] 7.3 g/dL Normal 6.3-8.0 [facility] Comment on above: Order Comment: Speci men Type: BLOOD SPECIMENOrdering Facility: [facility] Address: [address] [place] [address] Performed By: #### 2 4323-8, 2531-0 ####[facility] LABCLIA [id number] [place] [address] Sodium [Moles/Vol] 136 mmol/L Normal 136-144 [facility] Comment on above: Order Comment: Speci men Type: BLOOD SPECIMENOrdering Facility: [facility] Address: [address] [place] [address] Performed By: #### 2 4323-8, 2531-0 ####[facility] LABCLIA [id number] [place] [address] Urea nitrogen [Mass/Vol] 6 mg/dL Low 7-21 [facility] Comment on above: Order Comment: Speci men Type: BLOOD SPECIMENOrdering Facility: [facility] Address: [address] [place] [address] Performed By: #### 2 4323-8, 253-0 ####[facility] LABCLIA [id number] [place] [address] [facility] 12[facility]20[facility] LDH [Catalytic activity/Vol] 190 U/L Normal 135-214 [facility] Comment on above: Order Comment: Speci men Type: BLOOD SPECIMENOrdering Facility: [facility] Address: [address] [place] [address] Result Comment: Hemo lysis present. The origin [...] clinically indicated. Performed By: #### 2 4323-8, 2532-0 ####[facility] LABCLIA [id number] [place] [address] URETHRITIS/DISCHARGE PLUS VA GINITIS (HTRX)on 11-14-2023 ATOPOBIUM VAGINAE 19.497 Abnormal [facility] ATOPOBIUM VAGINAE Detected Abnormal [facility] BVAB 2,3 (BACTERIAL VAGINOSIS ASSOCIATED BACTERIA 2, 3); MOBILUNCUS SPP 15.096 Abnormal [facility] BVAB 2,3 (BACTERIAL VAGINOSIS ASSOCIATED BACTERIA 2, 3); MOBILUNCUS SPP Detected Abnormal [facility] DIANE ALBICANS, PARAPSILOSIS, TROPICALIS 0 [facility] DIANE ALBICANS, PARAPSILOSIS, TROPICALIS Not detected [facility] Healthcare DIANE GLABRATA 0 [facility] DIANE GLABRATA Not [facility] DIANE KRUSEI 0 [facility]alt [facility]care DIANE KRUSEI Not detected [facility] CHLAMYDIA TRACHOMATIS 0 [facility] CHLAMYDIA TRACHOMATIS Not detected [facility] DFR (A1, A5), SUL (1,2) 0 PPM [facility] Healthcare DFR (A1, A5), SUL (1,2) Not detected [facility] ERMB, C; MEFA 14.773 Abnormal PPM [facility] Health care ERMB, C; MEFA Detected Abnormal [facility] care GARDNERELLA VAGINALIS 0 [facility] GARDNERELLA VAGINALIS Not detected [facility] Interpretation and review of laboratory results Abnormal [facility] Healthca re MEGASPHAERA (TYPES 1, 2) 0 [facility] Healthcare MEGASPHAERA (TYPES 1, 2) Not detected [facility] Healthcare MYCOPLASMA GENITALIUM 0 [facility] MYCOPLASMA GENITALIUM Not detected [facility] NEISSERIA GONORRHOEAE 0 [facility] NEISSERIA GONORRHOEAE Not detected [facility] TET B, TET M 18.414 Abnormal PPM [facility] Healthc are TET B, TET M Detected Abnormal [facility] Healthc are TRICHOMONAS VAGINALIS 0 [facility] TRICHOMONAS VAGINALIS Not detected [facility] Unlisted Lab Teston 11-13-19 24 Unlisted lab test see scanned report [facility] A System Sighter System Urinalysis macro (dipstick) panel (U)on 11-12-2023 Bilirubin, UA Negative Negative - 4(70) +++ mg/dL [facility] Blood, UA Negative Negative - 50 Manny/mcL [facility] Clarity, UA Clear [facility] Healthca re Color, UA Yellow [facility] Healthcar e Glucose, UA Negative Negative - 1999(110) ++++ mg/dL [facility] Interpretation and review of laboratory results Normal [facility] re Ketones, UA Negative Negative - 160(16) ++++ mg/dL [facility] Leukocytes, UA Negative Negative - 500+++ Luli/mcL [facility] Nitrite, UA Negative Negative - Positive [facility] pH, UA 6.0 5 - 9 [facility] [employer] e Protein, UA Negative Negative - 1999(20) ++++ mg/dL [facility] Spec Grav, UA 1.020 1 - 1.03 [facility] Urobilinogen, UA 1.0 0.2 - 12 mg/dL [facility] Healthcar e HCG ( test) IA.rosalinda d Ql (U)Ordered By: Karan Romero on 03-19-2023 HCG ( test) Ql (U) Negative [facility] HCG,Urineon 03-19-2023 Beta HCG ( test) Ql (U) Negative Normal [facility] Comment on above: Result Comment: PERF ORMED BY: [address] [place] [address] PATHOLOGIST POWER TECHNICIAN JOYCE ACHARYA M.D. Performed By: #### U HCG #### [address] Joel 03-19-2023 L - -------- Specimen: [id number] Received: 03/19/23 Status: HEMANT Johnston Num: [id number] Spec Type: Surgical Subm Dr: Karan Romero MD Tissues: A Duodenum - Biopsy (DUODENAL BX) B Esophagus Biopsy (ESOPHAGEAL) Procedures: HE/4, Gross/Micro L4/2 -------- Age/ Patient Sex Location Account Attending Physician -------- Vy Mckeon 32/F [id number] Karan Romero MD -------- SPEC NUM: [id number] RECD: 03/19/23 STATUS: HEMANT JOHNSTON NUM: [id number] ASAD: 03/19/[address] [facility] [address]: Karan Romero MD ENTERED: 03/19/[address]: SPEC TYPE: Surgical DEPT: S ORDERED: [...] in one cassette labeled B1. -------- Specimen: [id number] Received: 03/19/23 Status: HEMANT Johnston Num: [id number] Spec Type: Surgical Subm Dr: Karan Romero MD Tissues: A Duodenum - Biopsy (DUODENAL BX) B Esophagus Biopsy (ESOPHAGEAL) Procedures: HE/Maday, Gross/Micro L4/2 -------- Patient: Vy Mckeon [id number] (Continued) -------- Specimen: [id number] Received: 03/19/23 (Continued) Signed (signature on file) Doris Reynolds MD 03/20/23 1117 -------- Specimen: [id number] Received: 03/19/23 Status: HEMANT Johnston Num: [id number] Spec Type: Surgical Subm Dr: Karan Romero MD Tissues: A Duodenum - Biopsy (DUODENAL BX) B Esophagus Biopsy (ESOPHAGEAL) Procedures: HE/4, Gross/Micro L4/2 -------- Patient: Vy Mckeon [id number] (Continued) -------- Specimen: [id number] Received: 03/19/23 (Continued) Microscopic Description A. Two with H E stained material have been examined. The microscopic findings support the above pathologic diagnosis. B. Two with H E stained material have been examined. The microscopic findings support the above pathologic diagnosis. CPT Codes 70014 x 2 -------- -------- Specimen: [id number] Received: 03/19/23 Status: HEMANT Johnston Num: [id number] Spec Type: Surgical Subm Dr: Karan Romero MD Tissues: A Duodenum - Biopsy (DUODENAL BX) B Esophagus Biopsy (ESOPHAGEAL) Procedures: HE/Maday, Gross/Micro L4/2 -------- Patient: Vy Mckeon [id number] (Continued) -------- Signed (signature on file) Doris Reynolds MD 03/20/23 1117 [facility] CBC AUTO DIFFon 02-09-2023 BASO # 0.0 103/ul Normal 0.0-0.1 [facility] Comment on above: Performed By: #### C BC ####[facility] [address] [place] [id number]. Zafar Branham Basophils/100 WBC (Bld) 0.3 % Normal 0.2-2.0 [facility] Comment on above: Performed By: #### C BC ####[facility] [address] [place] [address]Dr. Zafar Branham EO # 0.2 103/ul Normal 0.0-0.7 [facility] Comment on above: Performed By: #### C BC ####[facility] [address] [place] [address]Dr. Zafar Branham Eosinophils/100 WBC (Bld) 1.7 % Normal 0.9-7.0 [facility] Comment on above: Performed By: #### C BC ####[facility] [address] [place] [address]Dr. Zafar Branham Erythrocyte distribution width (RBC) [Ratio] 13.9 % Normal 11.0-15.0 [facility] Comment on above: Performed By: #### C BC ####[facility] [address] [place] [phone]. Zafar Branham Hematocrit (Bld) [Volume fraction] 41.0 % Normal 36.0-48.0 [facility] Comment on above: Performed By: #### C BC ####[facility] [address] [place] [phone]. Zafar Branham Hemoglobin (Bld) [Mass/Vol] 13.4 g/dL Normal 12.0-16.0 [facility] Comment on above: Performed By: #### C BC ####[facility] [address] [place] [address]Dr. Zafar Branham IG # 0.03 10e3/ul Normal 0.00-0.03 [facility] Comment on above: Performed By: #### C BC ####[facility] [address] [place] [phone]. Zafar Branham IG % 0.3 % Normal 0.0-0.5 [facility] Comment on above: Performed By: #### C BC ####[facility] [address] [place] [phone]. Kathytere Branham LYMPH # 1.4 103/ul Normal 1.2-3.8 [facility] Comment on above: Performed By: #### C BC ####[facility] [address] [place] [address]Dr. Kathytere Branham Lymphocytes/100 WBC (Bld) 14.8 % Critically low 20.5-60.0 [facility] Comment on above: Performed By: #### C BC ####[facility] [address] [place] [address]Dr. Zafar Branham MANUAL DIFF REQ NO Normal [facility] Comment on above: Performed By: #### C BC ####[facility] [address] [place] [phone]. Kathytere Branham MCH (RBC) [Entitic mass] 28.8 pg Normal 26.7-34.0 [facility] Comment on above: Performed By: #### C BC ####[facility] [address] [place] [address]Dr. Zafar Branham MCHC (RBC) [Mass/Vol] 32.7 g/dL Normal 29.9-35.2 [facility] Comment on above: Performed By: #### C BC ####[facility] [address] [place] [address]Dr. Kathytere Branham MCV (RBC) [Entitic vol] 88.0 fL Normal 81.0-99.0 [facility] Comment on above: Performed By: #### C BC ####[facility] [address] [place] [address]Dr. Zafar Branham MONO # 0.4 103/ul Normal 0.3-0.8 [facility] Comment on above: Performed By: #### C BC ####[facility] [address]k4[address] [place] [phone]. Zafar Branham Monocytes/100 WBC (Bld) 3.9 % Normal 1.7-12.0 [facility] Comment on above: Performed By: #### C BC ####[facility] [address] [place] [phone]. Zafar Branham NEUT # 7.2 103/ul Critically high 1.4-6.5 [facility] Comment on above: Performed By: #### C BC ####[facility] [address] [place] [phone]. Zafar Branham Neutrophils/100 WBC (Bld) 79.0 % Critically high 43.0-75.0 [facility] Comment on above: Performed By: #### C BC ####[facility] [address] [place] [address]Dr. Zafar Branham Platelet mean volume (Bld) [Entitic vol] 10.7 fL Normal 9.5-13.5 [facility] Comment on above: Performed By: #### C BC ####[facility] [address] [place] [phone]. Zafar Branham PLT 353 103/ul Normal 150-450 [facility] Comment on above: Performed By: #### C BC ####[facility] [address] [place] [phone]. Zafar Branham RBC 4.66 106/ul Normal 4.20-5.40 [facility] Comment on above: Performed By: #### C BC ####[facility] [address] [place] [phone]. Zafar Branham WBC 9.2 103/ul Normal 4.0-11.0 [facility] Comment on above: Performed By: #### C BC ####[facility] [address] [place], [place] [address]Dr. Zafar Branham CRPon 02-09-2023 CRP 1.0 mg/dL Normal <=1.0 [facility] Comment on above: Performed By: #### C RP, CMP, TSH, LIPID ####[facility] [address] [place], [place] [address]Ga. Zafar Branham FREE T4on 02-09-2023 Free T4 [Mass/Vol] 1.01 ng/dL Normal 0.76-1.46 [facility] Comment on above: Performed By: #### F T4 #### [facility] [address] [place], [place] [address] Dr. Zafar Branham LIPID PROFILEon 02-09-2023 CHOL-HDL RATIO NORM SEE BELOW Normal [facility] Comment on above: Result Comment: 3.3 - 4.4 LOW RISK 4.4 - 7.1 AVERAGE RISK 7.1 - 11.0 MODERATE RISK >11.0 HIGH RISK Performed By: #### C RP, CMP, TSH, LIPID ####[facility] [address] [place], [place] [address]Jj. Zafar Branham Cholesterol [Mass/Vol] 230 mg/dL Critically high <=200 [facility] Comment on above: Performed By: #### C RP, CMP, TSH, LIPID ####[facility] [address]sw[address] [place] [phone]. Zafar Branham Cholesterol in HDL [Mass/Vol] 71 mg/dL Critically high 40-60 [facility] Comment on above: Performed By: #### C RP, CMP, TSH, LIPID ####[facility] [address] [place], [place] [address]Tn. Zafar Branham Cholesterol in LDL [Mass/Vol] 139.4 mg/dL Normal [facility] Comment on above: Performed By: #### C RP, CMP, TSH, LIPID ####[facility] [address] [place], [place] [address]Yf. Zafar Branham Cholesterol.total/C holesterol in HDL [Mass ratio] 3.2 {ratio} Normal [facility] Comment on above: Performed By: #### C RP, CMP, TSH, LIPID ####[facility] [address] [place], [place] [address]Ql. Zafar Branham HDL NORMAL > or = 60 mg/dl - LO W CARDIOVASCULAR RISK <40 mg/dl - HIGH CARDIOVASCULAR RISK Normal [facility] Comment on above: Performed By: #### C RP, CMP, TSH, LIPID ####[facility] [address] [place], [place] [address]Dj. Zafar Branham LDL CALC NORMAL SEE BELOW Normal [facility] Comment on above: Result Comment: <100 mg/dl OPTIMAL 100 - 129 mg/dl NEAR OR ABOVE OPTIMAL 130 - 159 mg/dl BORDERLINE HIGH 160 - 189 mg/dl HIGH >190 mg/dl VERY HIGH Performed By: #### C RP, CMP, TSH, LIPID ####[facility] [address] [place], [place] [address]Pu. Zafar Branham Triglyceride [Mass/Vol] 98 mg/dL Normal <=150 [facility] Comment on above: Performed By: #### C RP, CMP, TSH, LIPID ####[facility] [address] [place], [place] [address]Fx. Zafar Branham VLDL CALC 19.6 mg/dL Normal [facility] Comment on above: Performed By: #### C RP, CMP, TSH, LIPID ####[facility] [address] [place], [place] [address]QrBryant Branham URon 02-09-2023 , QUAL Negative Normal NEGATIVE [facility] Comment on above: Performed By: #### U AMIC, PREGU #### [facility] [address] [place] [address] [address] Zafar Branham PROF 14(COMP METB)on 023 Albumin [Mass/Vol] 4.0 g/dL Normal 3.4-5.0 [facility] Comment on above: Performed By: #### C RP, CMP, TSH, LIPID #### [facility] [address] [place] [address] [address] Zafar Branham Albumin/Globulin [Mass ratio] 0.9 {ratio} Normal [facility] Comment on above: Performed By: #### C RP, CMP, TSH, LIPID #### [facility] [address] [place] [id number] [address] Zafar Branham ALP [Catalytic activity/Vol] 94 U/L Normal 46-116 [facility] Comment on above: Performed By: #### C RP, CMP, TSH, LIPID #### [facility] [address] [place] [address] [address] Zafar Branham ALT [Catalytic activity/Vol] 30 U/L Normal 14-59 [facility] Comment on above: Performed By: #### C RP, CMP, TSH, LIPID #### [facility] [address] [place] [address] Dr. Zafar Branham Anion gap [Moles/Vol] 13.6 mmol/L Normal [facility] Comment on above: Performed By: #### C RP, CMP, TSH, LIPID #### [facility] [address] [place] [address] Dr. Zafar Branham AST [Catalytic activity/Vol] 23 U/L Normal 15-37 [facility] Comment on above: Performed By: #### C RP, CMP, TSH, LIPID #### [facility] [address] [place] [address] Dr. Zafar Branham Bilirubin [Mass/Vol] 0.3 mg/dL Normal 0.2-1.0 [facility] Comment on above: Performed By: #### C RP, CMP, TSH, LIPID #### [facility] [address] [place] [address] Dr. Zafar Branham Calcium [Mass/Vol] 9.7 mg/dL Normal 8.5-10.1 [facility] Comment on above: Performed By: #### C RP, CMP, TSH, LIPID #### [facility] [address] [place] [address] Dr. Zafar Branham Chloride [Moles/Vol] 100 mmol/L Normal 98-107 [facility] Comment on above: Performed By: #### C RP, CMP, TSH, LIPID #### [facility] [address] [place] [address] Dr. Zafar Branham CO2 [Moles/Vol] 26.6 mmol/L Normal 21.0-32.0 [facility] Comment on above: Performed By: #### C RP, CMP, TSH, LIPID #### [facility] [address] [place] [address] [address] Zafar Branham Creatinine [Mass/Vol] 1.00 mg/dL Normal 0.55-1.02 [facility] Comment on above: Performed By: #### C RP, CMP, TSH, LIPID #### [facility] [address] [place] [address] [address] Zafar Branham EGFR-AF GHANAIAN >60 Normal >=60 [facility] Comment on above: Performed By: #### C RP, CMP, TSH, LIPID #### [facility] [address] [place] [address] [address] Zafar Branham EGFR-NON AF GHANAIAN >60 Normal >=60 [facility] Comment on above: Performed By: #### C RP, CMP, TSH, LIPID #### [facility] [address] [place] [address] [address] Zafar Branham Globulin (S) [Mass/Vol] 4.5 g/dL Normal [facility] Comment on above: Performed By: #### C RP, CMP, TSH, LIPID #### [facility] [address] [place] [address] [address] Zafar Branham Glucose [Mass/Vol] 93 mg/dL Normal 74-106 [facility] Comment on above: Performed By: #### C RP, CMP, TSH, LIPID #### [facility] [address] [place] [address] [address] Zafar Branham Potassium [Moles/Vol] 4.2 mmol/L Normal 3.5-5.1 [facility] Comment on above: Performed By: #### C RP, CMP, TSH, LIPID #### [facility] [address] [place] [address] [address] Zafar Branham Protein [Mass/Vol] 8.5 g/dL Critically high 6.4-8.2 [facility] Comment on above: Performed By: #### C RP, CMP, TSH, LIPID #### [facility] [address] [place] [address] [address] Zafar Branham Sodium [Moles/Vol] 136 mmol/L Normal 136-145 [facility] Comment on above: Performed By: #### C RP, CMP, TSH, LIPID #### [facility] [address] [address] [address] Zafar Branham Urea nitrogen [Mass/Vol] 10.0 mg/dL Normal 7.0-18.0 [facility] Comment on above: Performed By: #### C RP, CMP, TSH, LIPID #### [facility] [address] [address] [address] Zafar Branham Urea nitrogen/Creatinine [Mass ratio] 10.0 mg/mg Normal [facility] Comment on above: Performed By: #### C RP, CMP, TSH, LIPID #### [facility] [address] [address] [address] Zafar Branham SED RATE [facility] 2022 SED RATE 49 mm/hr Critically high <=20 [facility] Comment on above: Performed By: #### S EDR ####[facility] [address] [address]Dr. Zafar Branham TSHon 02-09-2023 TSH 0.590 uIU/mL Normal 0.358-3.740 [facility] Comment on above: Performed By: #### C RP, CMP, TSH, LIPID #### [facility] [address] [address] [address] Zafar Branham UA RANDOM W/MICROSCOPICon BACTERIA NONE SEEN Normal NONE SEEN [facility] Comment on above: Performed By: #### U AMIC, PREGU #### [facility] [address] [address] [address] Zafar Branham Bilirubin Ql (U) Negative Normal NEGATIVE [facility] Comment on above: Performed By: #### U AMIC, PREGU #### [facility] [address] [address] [address] Zafar Branham CAST NONE SEEN Normal NONE SEEN [facility] Comment on above: Performed By: #### U AMIC, PREGU #### [facility] [address] [address] [address] Zafar Branham Clarity (U) CLEAR Normal CLEAR [facility] Comment on above: Performed By: #### U AMIC, PREGU #### [facility] [address] [address] [address] Zafar Branham Color (U) LT. YELLOW Normal YELLOW [facility] Comment on above: Performed By: #### U AMIC, PREGU #### [facility] [address] [address] [address] Zafar Branham Crystals LM Nom (Urine sed) NONE SEEN Normal NONE SEEN [facility] Comment on above: Performed By: #### U AMIC, PREGU #### [facility] [address] [address] [address] Zafar Branham Epithelial cells LM Ql (Urine sed) FEW Abnormal NONE SEEN /RARE [facility] Comment on above: Performed By: #### U AMIC, PREGU #### [facility] [address] [address] [address] Zafar Branham Glucose Ql (U) Negative Normal NEGATIVE [facility] Comment on above: Performed By: #### U AMIC, PREGU #### [facility] [address] [address] [address] Zafar Branham Hemoglobin Ql (U) SMALL Abnormal NEGATIVE The [facility] Comment on above: Performed By: #### U AMIC, PREGU #### [facility] [address] [address] [address] Zafar Branham Ketones Ql (U) Negative Normal NEGATIVE [facility] Comment on above: Performed By: #### U AMIC, PREGU #### [facility] [address] [address] [address] Zafar Branham LEUKOCYTES Negative Normal NEGATIVE [facility] Comment on above: Performed By: #### U AMIC, PREGU #### [facility] [address] [address] [address] Zafar Branham MUCOUS NONE SEEN Normal NONE SEEN [facility] Comment on above: Performed By: #### U AMIC, PREGU #### [facility] [address] [address] [address] Zafar Branham Nitrite Ql (U) Negative Normal NEGATIVE [facility] Comment on above: Performed By: #### U AMIC, PREGU #### [facility] [address] [address] [address] Zafar Branham pH (U) 6.0 [pH] Normal 5-9 [facility] Comment on above: Performed By: #### U AMIC, PREGU #### [facility] [address] [address] [address] Zafar Branham RBC 0-2 Normal 0-2 [facility] Comment on above: Performed By: #### U AMIC, PREGU #### [facility] [address] [address] [address] Zafar Branham SPEC GRAVITY <=1.005 Abnormal 1.005-<=1.025 [facility] Comment on above: Performed By: #### U AMIC, PREGU #### [facility] [address] [address] [address] Zafar Branham UA PROTEIN Negative Normal NEGATIVE/ TRACE [facility] Comment on above: Performed By: #### U AMIC, PREGU #### [facility] [address] [address] [address] Zafar Branham Urobilinogen Qn (U) 0.2 {Ramy'U}/dL Normal 0.2 - 1. 0 [facility] Comment on above: Performed By: #### U AMIC, PREGU #### [facility] [address] [address] [address] Zafar Branham WBC NONE SEEN Normal NONE SEEN [facility] Comment on above: Performed By: #### U AMIC, PREGU #### [facility] [address] [address] [address] Zafar Branham XR knee RT 4V*on 02-07-2023 XR knee RT 4V* [facility] [employer] Other XR knee RT 4V* [facility] [employer] Other XR knee RT 4V* [address] [place] [address] [employer] Other XR knee RT 4V* [place] [id number] No rt [employer] Other XR knee RT 4V* XRay Report [employer] Other XR knee RT 4V* Signed [employer] Other XR knee RT 4V* Patient: Vy Mckeon MR#: [id number] [employer] Other XR knee RT 4V* 5 [employer] Other XR knee RT 4V* : 1990 Acct:[id number] [employer] Other XR knee RT 4V* Age/Sex: 32 / F ADM Date: 02/07/23 [employer] Other XR knee RT 4V* Loc: XDUCLY Room: Type: REG CLI [employer] Other XR knee RT 4V* Attending Dr: Shayla DENNEY [employer] Other XR knee RT 4V* Copies to: JUMANA Christianson [employer] Other XR knee RT 4V* Ordering Provider: JUMANA Christianson [employer] Other XR knee RT 4V* Date of Service: 02/07/23 [employer] Other XR knee RT 4V* XR/XR knee RT 4V*: RIGHT KNEE PAIN [employer] Other XR knee RT 4V* RIGHT KNEE - 4 views [employer] Other XR knee RT 4V* COMPARISON: None Nort [employer] Other XR knee RT 4V* CLINICAL DATA: Patient fell last night and landed on right anterior knee. Pain, swelling and [employer] Other XR knee RT 4V* abrasions. [employer] Other XR knee RT 4V* AP, lateral and both oblique views were obtained. There is no fracture or dislocation. There is no [employer] Other XR knee RT 4V* significant knee effusion or focal soft tissue swelling. [employer] Other XR knee RT 4V* XR/XR knee RT 4V* [employer] Other XR knee RT 4V* IMPRESSION: [employer] Other XR knee RT 4V* NO ACUTE BONY INJURY. [employer] Other XR knee RT 4V* Impression dictated by: Rama Garsia M.D.02/07/2023 10:01 AM [employer] Other XR knee RT 4V* Dictation Location: [facility] [employer] Other XR knee RT 4V* Transcribed By: MILKA 02/07/23 1001 [employer] Other XR knee RT 4V* Dictated By: Rama Garsia MD 02/07/23 1000 [employer] Other XR knee RT 4V* Signed By: [employer] Other XR knee RT 4V* 02/07/23 1001 [employer] Other XR knee RT 4V* [facility] [place] [address] [place] [address] XRay Report Signed Patient: Vy Mckeon MR#: [id number] 5 : 1990 Acct:[id number] Age/Sex: 32 / F ADM Date: 02/07/23 Loc: XDUCLY Room: Type: [facility] Attending Dr: Shayla Valle 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 Copies to: JUMANA Christianson Ordering Provider: JUMANA [...] Rama Garsia M.D.02/07/2023 10:01 AM [employer] Location: [facility] Transcribed By: [facility] 02/07/23 1001 Dictated By: Rama Garsia MD 02/07/23 1000 Signed By: 02/07/23 1001 [facility] XR HIPS KARELY 5V W PELVISon [...] CHACON Date: 2022-12-17 13:04 Normal [facility] PREG QUANT HCGon 07-04-2022 HCG QUANT 1 mIU/mL Normal [facility] Comment on above: Performed By: #### P REGQNT #### [facility] [address] [address] [address] Zafar Branham HCG RANGE SEE BELOW Normal [facility] Comment on above: Result Comment: 5-50 0.2-1 WEEK 50-500 1-2 WEEKS 100-5,000 2-3 WEEKS 500-10,000 3-4 WEEKS 1,000-50,000 4-5 WEEKS 10,000-100,000 5-6 WEEKS 15,000-200,000 6-8 WEEKS 10,000-100,000 2-3 MONTHS Performed By: #### P REGQNT #### [facility] [address] [place] [address] Dr. Zafar Branham PREG QUANT HCGon 06-08-2022 HCG QUANT 16 mIU/mL Normal [facility] Comment on above: Performed By: #### P REGQNT ####[facility] [address] [address]Dr. Zafar Branham HCG RANGE SEE BELOW Normal [facility] Comment on above: Result Comment: 5-50 0.2-1 WEEK 50-500 1-2 WEEKS 100-5,000 2-3 WEEKS 500-10,000 3-4 WEEKS 1,000-50,000 4-5 WEEKS 10,000-100,000 5-6 WEEKS 15,000-200,000 6-8 WEEKS 10,000-100,000 2-3 MONTHS Performed By: #### P REGQNT ####[facility] [address] [place], [place] [address]Dr. Zafar Branham CBC AUTO DIFFon 05-23-2022 BASO # 0.0 103/ul Normal 0.0-0.1 [facility] Comment on above: Performed By: #### C BC #### [facility] [address] [place] [address] Dr. Zafar Branham Basophils/100 WBC (Bld) 0.6 % Normal 0.2-2.0 [facility] Comment on above: Performed By: #### C BC #### [facility] [address] [place] [address] Dr. Zafar Branham EO # 0.3 103/ul Normal 0.0-0.7 [facility] Comment on above: Performed By: #### C BC #### [facility] [address] [place] [address] Dr. Zafar Branham Eosinophils/100 WBC (Bld) 6.5 % Normal 0.9-7.0 [facility] Comment on above: Performed By: #### C BC #### [facility] [address] [place] [address] Dr. Zafar Branham Erythrocyte distribution width (RBC) [Ratio] 12.5 % Normal 11.0-15.0 [facility] Comment on above: Performed By: #### C BC #### [facility] [address] [place] [address] Dr. Zafar Branham Hematocrit (Bld) [Volume fraction] 37.2 % Normal 36.0-48.0 [facility] Comment on above: Performed By: #### C BC #### [facility] [address] [place] [address] Dr. Zafar Branham Hemoglobin (Bld) [Mass/Vol] 12.1 g/dL Normal 12.0-16.0 [facility] Comment on above: Performed By: #### C BC #### [facility] [address] [place] [address] Dr. Zafar Branham IG # 0.01 10e3/ul Normal 0.00-0.03 [facility] Comment on above: Performed By: #### C BC #### [facility] [address] [place] [address] Dr. Zafar Branham IG % 0.2 % Normal 0.0-0.5 [facility] Comment on above: Performed By: #### C BC #### [facility] [address] [place] [address] Dr. Zafar Branham LYMPH # 1.5 103/ul Normal 1.2-3.8 [facility] Comment on above: Performed By: #### C BC #### [facility] [address] [place] [address] Dr. Zafar Branham Lymphocytes/100 WBC (Bld) 29.8 % Normal 20.5-60.0 [facility] Comment on above: Performed By: #### C BC #### [facility] [address] [place] [address] Dr. Zafar Branham MANUAL DIFF REQ NO Normal [facility] Comment on above: Performed By: #### C BC #### [facility] [address] [place] [address] Dr. Zafar Branham MCH (RBC) [Entitic mass] 29.1 pg Normal 26.7-34.0 [facility] Comment on above: Performed By: #### C BC #### [facility] [address] [place] [address] Dr. Zafar Branham MCHC (RBC) [Mass/Vol] 32.5 g/dL Normal 29.9-35.2 [facility] Comment on above: Performed By: #### C BC #### [facility] [address] [place] [address] Dr. Zafar Branham MCV (RBC) [Entitic vol] 89.4 fL Normal 81.0-99.0 [facility] Comment on above: Performed By: #### C BC #### [facility] [address] [place] [address] Dr. Zafar Branham MONO # 0.4 103/ul Normal 0.3-0.8 [facility] Comment on above: Performed By: #### C BC #### [facility] [address] [place] [address] Dr. Zafar Branham Monocytes/100 WBC (Bld) 7.9 % Normal 1.7-12.0 [facility] Comment on above: Performed By: #### C BC #### [facility] [address] [place] [address] Dr. Zafar Branham NEUT # 2.7 103/ul Normal 1.4-6.5 [facility] Comment on above: Performed By: #### C BC #### [facility] [address] [place] [address] Dr. Zafar Branham Neutrophils/100 WBC (Bld) 55.0 % Normal 43.0-75.0 [facility] Comment on above: Performed By: #### C BC #### [facility] [address] [place] [address] Dr. Zafar Branham Platelet mean volume (Bld) [Entitic vol] 10.0 fL Normal 9.5-13.5 [facility] Comment on above: Performed By: #### C BC #### [facility] [address] [place] [address] Dr. Zafar Branham PLT 229 103/ul Normal 150-450 [facility] Comment on above: Performed By: #### C BC #### [facility] [address] [place], [place] [address] Dr. Zafar Branham RBC 4.16 106/ul Critically low 4.20-5.40 [facility] Comment on above: Performed By: #### C BC #### [facility] [address] [place], [place] [address] Dr. Zafar Branham WBC 5.0 103/ul Normal 4.0-11.0 [facility] Comment on above: Performed By: #### C BC #### [facility] [address] [place], [place] [address] Dr. Zafar Branahm TYPE AND SCREENon 05-23-2022 TYPE AND SCREEN Negative Normal [facility] Comment on above: Performed By: #### T NS ####[facility] [address] [place], [place] [address]H[address]Dr. Zafar Branham Covid-19 PCR (CVDTBH)on 05-01 SARS-CoV-2 (COVID-19) RNA MANOLO+probe Ql (Unsp spec) Not detected Normal NOT DETECTED [facility] Comment on above: Result Comment: This test is not yet approved or cleared by the [place] FDA. When there are no FDA-approved or cleared tests available, and other criteria are met, FDA can make tests available under an emergency access mechanism called an Emergency Use Authorization (EUA). The EUA for this test is supported by the R&D Lab Technician of Health and Human Service's (HHS's) declaration [...] Performed By: #### C VDTBH #### [facility] [address] [place], [place] [address] Dr. Zafar Branham US PREG TVon 05-18-2022 [...] by: BOBBI SIMONS Date: 2022-05-18 19:25 Normal [facility] US PREG TVon 05-03-2022 US PREG TV [...] by: BOBBI SIMONS Date: 2022-05-03 16:32 Normal [facility] Chlamydia/GC DNA, TPon 05-05 Chlamydia Probe, TP Negative Normal NEG [facility] Comment on above: Result Comment: CHLA [...] target. Performed By: #### C YTCGP #### [address] [id number] Employment Interviewer: King Boone MD Gonorrhea Probe, TP Negative Normal NEG [facility] Comment on above: Result Comment: NEIS [...] target. Performed By: #### C YTCGP #### [address] [id number] Employment Interviewer: King Boone MD HPV DNA High Riskon 05-05-20 20 HPV Interp Normal [facility] Comment on above: Result Comment: [...] purposes. Performed By: #### H PV #### [address] [id number] Employment Interviewer: King Boone MD HPV Type 16 Not Detected Normal NOTDET [facility] Comment on above: Performed By: #### H PVH #### [address] [address] Employment Interviewer: King Boone MD HPV Type 18 Not Detected Normal [facility] Comment on above: Performed By: #### H PVH #### [address] [address] Employment Interviewer: King Boone MD Other High Risk HPV Not Detected Normal [facility] Comment on above: Performed By: #### H PVH #### [address] [address] Employment Interviewer: King Boone MD HPV Sample .THIN PREP Normal [facility] Comment on above: Performed By: #### H PVH #### [address] [address] Employment Interviewer: King Boone MD Source .ENDOCERVIX Normal [facility] Comment on above: Performed By: #### H PVH #### [address] [address] Employment Interviewer: King Boone MD Otheron 05-04-2020 Direct Exam Negative [place], [place] VAGINITIS DNA PROBEon 2019 Direct Exam Positive Abnormal [place] Direct Exam Method of testing is a DNA probe intended for detection and identification of Diane species, Gardnerella vaginalis, and Trichomonas vaginalis nucleic acid in vaginal fluid specimens from patients with symptoms of vaginitis/vaginosis. [place] Interpretation and review of laboratory results Abnormal [place] Special Requests NOT REPORTED [place] Specimen Description .VAGINAL SWAB [place] Vaginitis DNA Probeon 2019 Vaginitis DNA [...] of vaginitis/vaginosis. Report Status FINAL 05/04/2020 Normal [facility] Comment on above: Performed By: #### V AGDNA #### [facility] [email or web address] [address] [place] [address] Employment Interviewer: King Boone MD Cytologyon 05-03-2020 Cytology (NOTE) INTERPRETATION Endocervical material, (Thin prep vial, Imaging-assisted review): Specimen Adequacy: Satisfactory for evaluation. - Endocervical/transfor mation zone component present. Descriptive Diagnosis: Negative for intraepithelial lesion or malignancy. Shift in ray suggestive of bacterial vaginosis. Comments: High Risk HPV testing was ordered. Denture Processor: JAYLIN Higgins(ASCP) Electronically Signed Out ana/05/07/2020 [...] GYNECOLOGIC CYTOLOGY REPORT Patient Name: VY MCKEON [facility] Rec: [id number] Path Number: [id number] [facility] [employer] [employer] ANATOMIC PATHOLOGY [address] [place] [phone] [facility] Comment on above: Performed By: #### P PPVP #### [facility] [employer] [address] [id number] Employment Interviewer: King Boone MD Vital Signs Date Time Vital Sign Value Performing Clinician Facility 01-21-2024 11:59-0400 Body height 170.2 cm Ana Peoples MD Work Phone: [facility] 01-21-2024 11:59-0400 Body mass index (BMI) [Ratio] 30.07 kg/m2 Ana Peoples MD Work Phone: [facility] 01-21-2024 11:59-0400 Body weight 87.1 kg Ana Peoples MD Work Phone: [facility] 01-21-2024 11:59-0400 Diastolic blood pressure 75 mm[Hg] Ana Peoples MD Work Phone: [facility] 01-21-2024 11:59-0400 Heart rate 108 /min Ana Peoples MD Work Phone: [facility] 01-21-2024 11:59-0400 Systolic blood pressure 125 mm[Hg] Ana Peoples MD Work Phone: [facility] 01-21-2024 11:02-0400 Body height 170.2 cm Ana Peoples MD Work Phone: [facility] 01-21-2024 11:02-0400 Body mass index (BMI) [Ratio] 30.07 kg/m2 Ana Peoples MD Work Phone: [facility] 01-21-2024 11:02-0400 Body weight 87.09 kg Ana Peoples MD Work Phone: [facility] 01-04-2024 14:31-0400 Body temperature 97.11 [degF] Fransico Sharp MD Work Phone: [facility] 01-04-2024 14:31-0400 Diastolic blood pressure 83 mm[Hg] Fransico Sharp MD Work Phone: [facility] 01-04-2024 14:31-0400 Heart rate 94 /min Fransico Sharp MD Work Phone: [facility] 01-04-2024 14:31-0400 Respiratory rate 20 /min Fransico Sharp MD Work Phone: [facility] 01-04-2024 14:31-0400 SaO2% (BldA) [Mass fraction] 99 % Fransico Sharp MD Work Phone: [facility] 01-04-2024 14:31-0400 Systolic blood pressure 148 mm[Hg] Fransico Sharp MD Work Phone: [facility] 12-17-2023 13:42-0400 Body height 170.2 cm Freddie Delgado VOICE DATA COMMUNICATIONS ENGINEER-CRUCIBLE PACKER Work Phone: [facility] 12-17-2023 13:42-0400 Body mass index (BMI) [Ratio] 29.47 kg/m2 Freddie Delgado VOICE DATA COMMUNICATIONS ENGINEER-CRUCIBLE PACKER Work Phone: [facility] 12-17-2023 13:42-0400 Body temperature 98.71 [degF] Freddie Delgado VOICE DATA COMMUNICATIONS ENGINEER-CRUCIBLE PACKER Work Phone: [facility] 12-17-2023 13:42-0400 Body weight 85.37 kg Freddie Delgado VOICE DATA COMMUNICATIONS ENGINEER-CRUCIBLE PACKER Work Phone: [facility] 12-17-2023 13:42-0400 Diastolic blood pressure 80 mm[Hg] Freddie Delgado VOICE DATA COMMUNICATIONS ENGINEER-CRUCIBLE PACKER Work Phone: [facility] 12-17-2023 13:42-0400 Heart rate 86 /min Freddie DAVILA Work Phone: [facility] [employer] [facility] 12-17-2023 13:42-0400 SaO2% (BldA) [Mass fraction] 96 % Freddie Delgado APRN-CRUCIBLE PACKER Work Phone: [facility] [employer] [facility] 12-17-2023 13:42-0400 Systolic blood pressure 128 mm[Hg] Freddie DAVILA Work Phone: [facility] 11-12-2023 13:13-0500 Body mass index (BMI) [Ratio] 28.47 kg/m2 Dionne Mcintosh PA Work Phone: [facility] [employer] 11-12-2023 13:13-0500 Body weight 82.46 kg Dionne Dameon PA Work Phone: [facility] [employer] 11-12-2023 13:13-0500 Diastolic blood pressure 72 mm[Hg] Dionne Mcintosh PA Work Phone: [facility] [employer] 11-12-2023 13:13-0500 Systolic blood pressure 114 mm[Hg] Dionne Mcintosh PA Work Phone: [facility] [employer] 05-29-2023 13:25-0400 Body height 170.18 cm Shayla Valle Other [employer] Other 05-29-2023 13:25-0400 Body mass index (BMI) [Ratio] 28.22 kg/m2 Shayla Valle Other [employer] Other 05-29-2023 13:25-0400 Body temperature 97.8 [degF] Shayla Valle Other [employer] Other 05-29-2023 13:25-0400 Body weight 81.74 kg Shayla Valle Other [employer] Other 05-29-2023 13:25-0400 Diastolic blood pressure 79 mm[Hg] Shayla Tori Other [employer] Other 05-29-2023 13:25-0400 Respiratory rate 18 /min Shayla Tori Other [employer] Other 05-29-2023 13:25-0400 SaO2% (BldA) [Mass fraction] 96 % Shayla Tori Other [employer] Other 05-29-2023 13:25-0400 Systolic blood pressure 127 mm[Hg] Shayla Tori Other [employer] Other 03-19-2023 14:37-0400 Diastolic blood pressure 69 mm[Hg] 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 Shayla Tori Work Phone: [facility] 03-19-2023 14:37-0400 Heart rate 76 /min 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 Shayla Tori Work Phone: [facility] 03-19-2023 14:37-0400 Respiratory rate 16 /min 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 Shayla Tori Work Phone: [facility] 03-19-2023 14:37-0400 SaO2% (BldA) [Mass fraction] 96 % 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 Shayla Tori Work Phone: [facility] 03-19-2023 14:37-0400 Systolic blood pressure 119 mm[Hg] 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 Shayla Tori Work Phone: [facility] 03-19-2023 12:18-0400 Body height 170.18 cm 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 Shayla Tori Work Phone: [facility] 03-19-2023 12:18-0400 Body temperature 97.9 [degF] 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 Shayla Tori Work Phone: [facility] 03-19-2023 12:18-0400 Body weight 84.82 kg 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 Shayla Tori Work Phone: [facility] 02-12-2023 14:30-0400 Body height 170.18 cm Yoel Scdonna Other [employer] Other 02-12-2023 14:30-0400 Body mass index (BMI) [Ratio] 30.54 kg/m2 Yoel Scovanner Other [employer] Other 02-12-2023 14:30-0400 Body weight 88.45 kg Yoel Scovanner Other [employer] Other 02-12-2023 14:30-0400 Diastolic blood pressure 80 mm[Hg] Yoel Scovanner Other [employer] Other 02-12-2023 14:30-0400 Systolic blood pressure 127 mm[Hg] Yoel Scovanner Other [employer] Other 02-07-2023 10:00-0400 Body height 170.18 cm Shayla Tori Other [employer] Other 02-07-2023 10:00-0400 Body mass index (BMI) [Ratio] 30.54 kg/m2 Shayla Tori Other [employer] Other 02-07-2023 10:00-0400 Body temperature 97.9 [degF] Shayla Valle Other [employer] Other 02-07-2023 10:00-0400 Body weight 88.45 kg Shayla Valle Other [employer] Other 02-07-2023 10:00-0400 Respiratory rate 18 /min Shayla Valle Other [employer] [facility] [employer] Other 02-07-2023 10:00-0400 SaO2% (BldA) [Mass fraction] 97 % Shayla Valle Other [employer] [facility] Other 05-03-2020 11:41-0400 BMI (Body Mass Index) 24.5 kg/m2 [facility] Work Phone: 05-03-2020 11:41-0400 Body Temperature 96.3 [degF] [facility] Work Phone: 05-03-2020 11:41-0400 Body weight 70.9 kg [facility] Work Phone: 05-03-2020 11:41-0400 BP Diastolic 80 mm[Hg] [facility] Work Phone: 05-03-2020 11:41-0400 BP Systolic 120 mm[Hg] [facility] Work Phone: 05-03-2020 11:41-0400 BSA (Body Surface Area) 1.82 m2 [facility] Work Phone: 05-03-2020 11:41-0400 Height 170.18 cm [facility] Work Phone: 05-03-2020 11:41-0400 Pulse (Heart Rate) 86 /min [facility] Work Phone: 05-03-2020 11:41-0400 Pulse Oximetry 93 % [facility] Work Phone: 05-03-2020 11:41-0400 Respiratory Rate 18 /min [facility] Work Phone: 04-08-2020 08:37-0400 BMI (Body Mass Index) 24.3 kg/m2 [facility] Work Phone: 04-08-2020 08:37-0400 Body Temperature 99 [degF] [facility] Work Phone: 04-08-2020 08:37-0400 Body weight 70.4 kg [facility] Work Phone: 04-08-2020 08:37-0400 BP Diastolic 80 mm[Hg] [facility] Work Phone: 04-08-2020 08:37-0400 BP Systolic 110 mm[Hg] [facility] Work Phone: 04-08-2020 08:37-0400 BSA (Body Surface Area) 1.82 m2 [facility] Work Phone: 04-08-2020 08:37-0400 Height 170.18 cm [facility] Work Phone: 04-08-2020 08:37-0400 Pulse (Heart Rate) 82 /min [facility] Work Phone: 04-08-2020 08:37-0400 Pulse Oximetry 98 % [facility] Work Phone: 04-08-2020 08:37-0400 Respiratory Rate 18 /min [facility] Work Phone: 03-29-2020 09:52-0400 Body height 170.18 cm [facility] Work Phone: [facility] Work Phone: Comment on above: self 03-29-2020 09:52-0400 Body mass index (BMI) [Ratio] 23.5 kg/m2 [facility] Work Phone: [facility] Work Phone: Comment on above: self 03-29-2020 09:52-0400 Body surface area Derived from formula 1.79 m2 Sally Jean-Pierrereese FERNÁNDEZ Work Phone: [facility] Work Phone: Comment on above: self 03-29-2020 09:52-0400 Body weight 68.04 kg Sally Morejon CNP Work Phone: [facility] Work Phone: Comment on above: self 10-14-2019 08:30-0500 BMI (Body Mass Index) 24.1 kg/m2 [facility] Work Phone: 10-14-2019 08:30-0500 Body Temperature 98.5 [degF] [facility] Work Phone: 10-14-2019 08:30-0500 Body weight 69.76 kg [facility] Work Phone: 10-14-2019 08:30-0500 BP Diastolic 78 mm[Hg] [facility] Work Phone: 10-14-2019 08:30-0500 BP Systolic 132 mm[Hg] [facility] Work Phone: 10-14-2019 08:30-0500 BSA (Body Surface Area) 1.81 m2 [facility] Work Phone: 10-14-2019 08:30-0500 Height 170.18 cm [facility] Work Phone: 10-14-2019 08:30-0500 Pulse (Heart Rate) 88 /min [facility] Work Phone: 10-14-2019 08:30-0500 Pulse Oximetry 98 % [facility] Work Phone: 10-14-2019 08:30-0500 Respiratory Rate 18 /min [facility] Work Phone: 10-14-2019 08:30-0500 SaO2% (BldA) [Mass fraction] 98 % [facility] Work Phone: [facility] Work Phone: 09-04-2019 13:52-0500 BMI (Body Mass Index) 22.9 kg/m2 [facility] Work Phone: 09-04-2019 13:52-0500 Body Temperature 98.5 [degF] [facility] Work Phone: 09-04-2019 13:52-0500 Body weight 66.23 kg [facility] Work Phone: 09-04-2019 13:52-0500 BP Diastolic 90 mm[Hg] [facility] Work Phone: 09-04-2019 13:52-0500 BP Systolic 122 mm[Hg] [facility] Work Phone: 09-04-2019 13:52-0500 BSA (Body Surface Area) 1.77 m2 [facility] Work Phone: 09-04-2019 13:52-0500 Height 170.18 cm [facility] Work Phone: 09-04-2019 13:52-0500 Pulse (Heart Rate) 98 /min [facility] Work Phone: 09-04-2019 13:52-0500 Pulse Oximetry 98 % [facility] Work Phone: 09-04-2019 13:52-0500 Respiratory Rate 18 /min [facility] Work Phone: 09-04-2019 13:52-0500 SaO2% (BldA) [Mass fraction] 98 % Sally Jean-Pierre [employer] P[employer]ER Work Phone: [facility] Work Phone: 08-19-2019 09:32-0500 BMI (Body Mass Index) 23.2 kg/m2 [facility] Work Phone: 08-19-2019 09:32-0500 Body Temperature 98 [degF] [facility] Work Phone: 08-19-2019 09:32-0500 Body weight 67.31 kg [facility] Work Phone: 08-19-2019 09:32-0500 BP Diastolic 80 mm[Hg] [facility] Work Phone: 08-19-2019 09:32-0500 BP Systolic 120 mm[Hg] [facility] Work Phone: 08-19-2019 09:32-0500 BSA (Body Surface Area) 1.78 m2 [facility] Work Phone: 08-19-2019 09:32-0500 Height 170.18 cm [facility] Work Phone: 08-19-2019 09:32-0500 Pulse (Heart Rate) 90 /min [facility] Work Phone: 08-19-2019 09:32-0500 Pulse Oximetry 98 % [facility] Work Phone: 08-19-2019 09:32-0500 Respiratory Rate 18 /min [facility] Work Phone: 08-19-2019 09:32-0500 SaO2% (BldA) [Mass fraction] 98 % [facility] Work Phone: [facility] Work Phone: 07-28-2019 11:31-0400 BMI (Body Mass Index) 22.7 kg/m2 [facility] Work Phone: 07-28-2019 11:31-0400 Body Temperature 98.8 [degF] [facility] Work Phone: 07-28-2019 11:31-0400 Body weight 65.77 kg [facility] Work Phone: 07-28-2019 11:31-0400 BP Diastolic 84 mm[Hg] [facility] Work Phone: 07-28-2019 11:31-0400 BP Systolic 132 mm[Hg] [facility] Work Phone: 07-28-2019 11:31-0400 BSA (Body Surface Area) 1.76 m2 [facility] Work Phone: 07-28-2019 11:31-0400 Height 170.18 cm [facility] Work Phone: 07-28-2019 11:31-0400 Pulse (Heart Rate) 65 /min [facility] Work Phone: 07-28-2019 11:31-0400 Pulse Oximetry 97 % [facility] Work Phone: 07-28-2019 11:31-0400 Respiratory Rate 18 /min [facility] Work Phone: 07-28-2019 11:31-0400 SaO2% (BldA) [Mass fraction] 97 % [facility] Work Phone: [facility] Work Phone: Encounters Encounter Date Encounter Type Care Provider Facility Start: 02-22-2024 End: 02-22-2024 ambulatory [facility] Facility:[facility] Start: 02-20-2024 End: 02-20-2024 ambulatory [facility] Facility:[facility] Start: 02-13-2024 End: 02-15-2024 ambulatory [facility] Start: 02-11-2024 End: 02-11-2024 ambulatory ELIAZAR CASTANEDA Not Available Start: 01-29-2024 End: 01-29-2024 ambulatory CANDACE MORAN [facility] Start: 01-28-2024 End: 01-28-2024 ambulatory DIONNE BARNHART Not Available Start: 01-25-2024 Telephone encounter Fransico kulkarni MD Work Phone: Plastic Surgery Comment on above: Appointment Start: 01-25-2024 End: 01-26-2024 [facility]ulatory [facility] Start: 01-23-2024 ambulatory Usman gibson MD Work Phone: Hematology/Oncology Start: 01-23-2024 Patient [...] Start: 01-14-2024 End: 01-14-2024 ambulatory GURJIT ROBIN [facility] Start: 01-10-2024 Telephone encounter Historical [facility] Start: 01-09-2024 Telephone encounter Fransico kulkarni MD Work Phone: Plastic Surgery Start: 01-08-2024 End: 01-08-2024 ambulatory ELIAZAR CASTANEDA Not Available Start: 01-04-2024 End: 01-05-2024 ambulatory [facility] Start: 01-04-2024 End: 01-05-2024 ambulatory Fransico Sharp MD Work Phone: Plastic Surgery Comment on above: Malignant melanoma o f skin (HCC) (Primary Dx) Start: 01-04-2024 End: 01-05-2024 Patient encounter procedure Fransico Sharp MD Work Phone: [facility] Start: 12-26-2023 End: 12-27-2023 ambulatory [facility] Start: 12-21-2023 Chart abstracting Usman rincon MD Work Phone: Hematology/Oncology Start: 12-17-2023 End: 12-17-2023 ambulatory [facility] Start: 12-17-2023 End: 12-17-2023 Office outpatient visit 10 minutes [facility] VOICE DATA COMMUNICATIONS ENGINEER-CRUCIBLE PACKER Work Phone: [facility] Comment on above: Nausea and vomiting, unspecified vomiting type (Primary Dx); Psychophysiological insomnia Start: 12-10-2023 End: 12-10-2023 ambulatory ELIAZAR CASTANEDA Not Available Start: 12-07-2023 Documentation procedure Chris BLISS Work Phone: [facility] Comment on above: Outgoing Ca ll Start: 11-20-2023 End: 11-21-2023 Orders Only Roshni Rodriguez RN [facility] Comment on above: Placenta previa ante in second trimester (Primary Dx); Multigravida of advanced maternal age in second trimester Start: 11-20-2023 End: 11-20-2023 Office outpatient visit 15 minutes Fidencio Rojas MD Work Phone: Maternal Medicine [place] Comment on above: 20 weeks gestation o f (Primary Dx); Placenta previa antepartum in second trimester; Advanced maternal age in multigravida, second trimester Start: 11-13-2023 Orders Only Juan Ramon Rodríguez PUG MILL OPERATOR Mate [facility] Comment on above: Multigravida of adva nced maternal age in second trimester; Family history of autism; Family history of mental disorder Start: 11-12-2023 End: 11-12-2023 ambulatory DIONNE BARNHART Not Available Start: 11-12-2023 Documentation procedure Chris BLISS Work Phone: [facility] Comment on above: Outgoing Ca ll Start: [...] not intractable Start: 10-29-2023 Documentation procedure Chris BLISS Work Phone: [facility]- [facility] Comment on above: Incoming Ca ll Start: 10-23-2023 Orders Only Angela Guzman PUG MILL OPERATOR Mat ernal- Medicine at [facility] Comment on above: Multigravida of adva nced maternal age in second trimester (Primary Dx); Family history of autism; Family history of mental disorder Start: 10-22-2023 End: 10-22-2023 ambulatory ELIAZAR CASTANEDA [facility] Start: 10-22-2023 End: 10-22-2023 Telemedicine consultation with patient Katarina MUNOZ Work Phone: [facility] Comment on above: Multigravida of adva nced maternal age in second trimester (Primary Dx); Family history of autism; Family history of mental disorder Start: 10-08-2023 End: 10-08-2023 ambulatory ELIAZAR NORMA Not Available Start: 08-30-2023 End: 08-30-2023 ambulatory ELIAZAR NORMA Not Available Start: 05-29-2023 End: 05-29-2023 ambulatory Shayla Valle Other [employer] Other Start: 05-29-2023 Office outpatient vi sit 15 minutes Shayla Valle [facility] Start: 03-19-2023 End: 03-19-2023 ambulatory NON STAFF Facility:[facility] Start: 03-19-2023 End: 03-19-2023 Admission to same day surgery center 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 Shayla Valle Work Phone: [facility] Work Phone: Start: 03-19-2023 End: 03-19-2023 ambulatory NON STAFF [facility] Work Phone: Start: 02-12-2023 End: 02-12-2023 ambulatory Yoel Jarrett Other [employer] Other Start: 02-12-2023 Office outpatient ne w 30 minutes Yoel Jarrett [facility] Start: 02-09-2023 End: 02-10-2023 ambulatory CRUCIBLE PACKER VITO AICHBELTRANZ Facility:[facility] Start: 02-07-2023 Office outpatient ne w 20 minutes Shayla Valle [facility] Start: 02-07-2023 End: 02-07-2023 ambulatory Shayla Val[facility] [employer] Other Start: 02-07-2023 End: 02-07-2023 Patient encounter procedure 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 Shayla Valle Work Phone: [facility] Work Phone: Start: 12-27-2022 ambulatory CRUCIBLE PACKER VITO JARREDAntonJUVENAL Facil ity:[facility] Start: 12-16-2022 End: 12-17-2022 ambulatory CRUCIBLE PACKER VITO AICHHOLZ Facility:[facility] Start: 07-04-2022 End: 07-05-[address] ELIAZAR CASTANEDA . Facility:[facility] Start: 06-08-2022 End: 07-01-[address] ELIAZAR CASTANEDA . Facility:[facility] Start: 05-23-2022 End: 05-23-[address] ELIAZAR CASTANEDA . Facility:[facility] Start: 05-22-2022 Encounter for preprocedural laboratory examination DR ELIAZAR CASTANEDA . [facility] Start: 05-19-2022 End: 05-20-[address] ELIAZAR CASTANEDA . Facility:[facility] Start: 05-19-2022 End: 05-20-2022 Encounter for preprocedural laboratory examination DR ELIAZAR CASTANEDA . Facility:[facility] Start: 05-18-2022 End: 05-19-[address] ELIAZAR CASTANEDA . Facility:[facility] Start: 05-03-2022 End: 05-04-[address] ELIAZAR CASTANEDA . Facility:[facility] Start: 05-03-2020 End: 05-03-2020 ambulatory Candace Grossman Work Phone: [facility] Work Phone: Start: 05-03-2020 End: 05-04-2020 Patient encounter procedure CANDACE Castellnao [facility] Start: 05-03-2020 End: 05-03-2020 Subsequent hospital visit by physician ARMANI FRY [facility] Start: 04-08-2020 End: 04-08-2020 ambulatory Linnea Escobar Work Phone: [facility] Work Phone: Start: 03-29-2020 End: 03-29-2020 General Emilee Short Work Phone: [facility] Work Phone: Start: 03-29-2020 End: 03-29-2020 Telemedicine consultation with patient Candace Grossman Work Phone: [facility] Work Phone: Start: 01-08-2020 End: 01-08-2020 Telemedicine consultation with patient Candace Grossman Work Phone: [facility] Work Phone: Start: 12-30-2019 End: 12-30-2019 Patient encounter procedure Emilee Sanford Work Phone: [facility] Work Phone: Start: 12-30-2019 End: 12-30-2019 Telemedicine consultation with patient Candace Grossman Work Phone: [facility] Work Phone: Start: 10-14-2019 End: 10-14-2019 Established patient Bobbi Colon Work Phone: [facility] Work Phone: Start: 09-04-2019 End: 09-04-2019 Established patient Bobbi Colon Work Phone: [facility] Work Phone: Start: 08-19-2019 End: 08-19-2019 Nursing evaluation of patient and report Candace Grossman Work Phone: [facility] Work Phone: Start: 07-28-2019 End: 07-28-2019 Established patient Bobbi Colon Work Phone: [facility] Work Phone: Start: 07-28-2019 End: 07-28-2019 New patient Candace Grossman Work Phone: [facility] Work Phone: Start: 08-13-2017 End: 08-14-2017 Ambulatory [facility] Procedures Date Procedure Procedure Detail Performing Clinician Start: 01-21-2024 Us preg uterus after 1st trimest 10/01 gestation Ana Peoples MD Work Phone: Start: 11-12-2023 Urnls dip stick/tabl et rgnt non-auto w/o micrscp Dionne BRAN Work Phone: Start: 11-12-2023 URETHRITIS/DISCHARGE PLUS VAGINITIS (HTRX) Dionne BRAN Work Phone: Start: 10-25-2023 UNLISTED LAB TEST Miriam Antonio [facility] Work Phone: Start: 09-10-2023 Adult depression scr eening assessment Katarina Antonio [facility] Work Phone: Start: 03-19-2023 Esophagogastroduodenoscopy 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 Shayla Valle Work Phone: Start: 03-01-2023 Microscopic observat ion [Identifier] in Cervix by Cyto stain Dionne BRAN Work Phone: Start: 02-07-2023 X-ray of right knee HUMAN GEOGRAPHY INSTRUCTOR- C Shayla Valle Work Phone: Start: 05-03-2020 Obtaining screen pap smear Candace Grossman Work Phone: Start: 05-03-2020 Iaad ia chlamydia trachomatis CANDACE GROSSMAN Start: 05-03-2020 Iadna diane specie s direct probe tq CANDACE GROSSMAN Start: 05-03-2020 Iadna diane specie s direct probe tq Candace Grossman Work Phone: Start: 05-03-2020 Microscopic observat ion [Identifier] in Cervix by Cyto stain Katarina Antonio [facility] Work Phone: Start: 04-08-2020 Diast bp 80-89 mm hg Ka ra Luz Work Phone: Start: 04-08-2020 Etonogestrel implant system Linnae Samaniegole Work Phone: Start: 04-08-2020 Insj non-biodegradab le drug delivery implant Linnea Luz Work Phone: Start: 04-08-2020 Lidocaine 2% with Ep inephrine INJ (Xylocaine W/Epi) Linnea Escobar Work Phone: Start: 04-08-2020 Syst bp lt 130 mm hg Ka ra Escobar Work Phone: Start: 04-08-2020 Therapeutic prophyla ctic/dx injection subq/im Linnea Escobar Work Phone: Start: 03-29-2020 no recent change in medical history Sally Morejon CNP Work Phone: Start: 03-29-2020 Psychotherapy w/howie ent 30 minutes Emilee Claribel Work Phone: Start: 01-08-2020 Patient gave verbal consent for telehealth Sally Fraustoer [employer] P[employer]ER Work Phone: Start: 10-14-2019 Diast bp <80 [...] Start: 07-28-2019 Diast bp 80-89 mm hg moncio Grossman Work Phone: Start: 07-28-2019 History of influenza vaccination Sally Jean-Pierre Start: 07-28-2019 PSYCHIATRIC DISORDERS C assie Jean-Pierre Start: 07-28-2019 Psychotherapy w/howie ent 30 minutes Bobbi Colon Work Phone: Start: 07-28-2019 Pt-focused hlth risk assmt score doc stnd instrm Candace Grossman Work Phone: Start: 07-28-2019 Removal non-biodegra dable drug delivery implant Candace Grossman Work Phone: Start: 07-28-2019 RESPIRATORY DISORDERS C assalvaro Morejon Start: 07-28-2019 Surgical procedure Chela Morejon [...] RSV Vaccine (1 - 1-dose 60+ series) [facility] Start: 01-02-2034 Urine microalbumin profile DTaP,Tdap,Td Vaccine (7 - Td or Tdap) [facility] Start: 03-12-2028 Screening for malign ant neoplasm of cervix HPV/Cotest [facility] Start: 03-01-2028 Screening for malign ant neoplasm of cervix [facility] Start: 01-25-2028 DTaP,Tdap and Td Vaccines (6 - Td or Tdap) DTaP,Tdap and Td Vaccines (6 - Td or Tdap) [facility] Start: 01-25-2028 Urine microalbumin profile DTaP,Tdap,Td Vaccine (2 - Td or Tdap) [facility] Start: 12-16-2024 Adult BMI Screening Adult BMI Screen ing [facility] Start: 12-16-2024 Tobacco Screening Tobacco Screening [facility] Start: 10-23-2024 End: 10-23-2024 Unlisted Lab Test Unlisted Lab Test Lab Routine Multigravida of advanced maternal age in second trimester Family history of autism Family history of mental disorder Expected: 10/23/2024 (Approximate), Expires: 10/23/2024 [facility] Comment on above: Expected: 10/23/2024 (Approximate), Expires: 10/23/2024 Start: 09-10-2024 Adult BMI Screening Adult BMI Screen ing [facility] Start: 09-10-2024 Depression Screening Depression Scre ening [facility] Start: 09-10-2024 Tobacco Screening Tobacco Screening [facility] Start: 03-17-2024 End: 03-17-2024 Admission to same day surgery center 03/17/2024 11:30 AM EDT Visit (SP) Office Plastic Surgery [address] [place] [address] Tana Cervantes APRN.CRUCIBLE PACKER [address] [place] [address] post op Plastic Surgery Comment on above: [...] 10:45 AM EDT Hospital Encounter Admitting [address] [place] [address] Fransico Sharp MD [address] [place] [address] Malignant melanoma of skin (HCC) [C43.9] Admitting Comment on above: Malignant melanoma o f skin (HCC) [C43.9] Start: 03-14-2024 End: 03-14-2024 Patient encounter procedure 03/14/2024 8:30 AM EDT Appointment Molecular Imaging [address] [place] [address] MELANOMA-NM LYMPH NODE IMAGING Molecular Imaging Comment on above: MELANOMA-NM LYMPH NO DE IMAGING Start: 03-07-2024 End: 03-07-2024 Anesthesia consultation 03/07/2024 1:20 PM EDT PAT Pre Anesthesia [address] [place] [address] 9, [address] [place] [address] pacc Pre Anesthesia Comment on above: pacc Start: 02-22-2024 End: 02-22-2024 Patient encounter procedure 02/22/2024 10:45 AM EDT Appointment Radiology [facility] [address] [place] [address] ct chest and stn w Radiology Pet CT Comment on above: ct chest and stn w Start: 02-20-2024 End: 02-20-2024 ambulatory 02/20/2024 3:00 PM EDT Results Only [facility] [address] [place] [address] [facility] Start: 02-20-2024 End: 01-22-2025 CBC W Auto Differential panel - Blood COMPLETE BLOOD COUNT AND DIFFERENTIAL Lab Routine Malignant melanoma of skin (HCC) Expected: 02/20/2024 (Approximate), Expires: 01/22/2025 [facility] Comment on above: Expected: 02/20/2024 (Approximate), Expires: 01/22/2025 Start: 02-20-2024 End: 01-22-2025 Comprehensive metabolic 2000 panel - Serum or Plasma COMPREHENSIVE METABOLIC PANEL Lab Routine Malignant melanoma of skin (HCC) Expected: 02/20/2024 (Approximate), Expires: 01/22/2025 [facility] Comment on above: Expected: 02/20/2024 (Approximate), Expires: 01/22/2025 Start: 02-20-2024 End: 02-21-2025 CT Chest W contrast IV CT CHEST W IVCON Radiology Routine Malignant melanoma of skin (HCC) Expected: 02/20/2024 (Approximate), Expires: 02/21/2025 [facility] Comment on above: Expected: 02/20/2024 (Approximate), Expires: 02/21/2025 Start: 02-20-2024 End: 02-21-2025 CT Neck W contrast IV CT NECK SOFT TISSUE W IVCON Radiology Routine Malignant melanoma of skin (HCC) Expected: 02/20/2024 (Approximate), Expires: 02/21/2025 [facility] Work Phone: Comment on above: Expected: 02/20/2024 (Approximate), Expires: 02/21/2025 Start: 02-20-2024 End: 01-22-2025 Lactate dehydrogenase [Enzymatic activity/volume] in Serum or Plasma LACTATE DEHYDROGENASE Lab Routine Malignant melanoma of skin (HCC) Expected: 02/20/2024 (Approximate), Expires: 01/22/2025 [facility] Comment on above: Expected: 02/20/2024 (Approximate), Expires: 01/22/2025 Start: 02-19-2024 Subsequent hospital visit by physician 02/19/2024 Hospital Encounter Surgery Center [address] [id number] Fransico Sharp MD [address] [place] [address] Malignant melanoma of skin (HCC) [C43.9] Surgery [...] Start: 02-12-2024 End: 02-12-2024 Patient encounter procedure [facility] - Ultrasound Comment on above: MELANOMA-NM LYMPH NO DE IMAGING Start: 01-14-2024 End: 01-14-2024 Telemedicine consultation with patient 01/14/2024 10:15 AM EDT Telemedicine [facility] [address] [place] [address] [address] [place] [address] [place] [address] [place] [address], [address] [place] [address] [facility] Start: 12-17-2023 End: 12-17-2023 Patient encounter procedure 12/17/2023 1:45 PM EDT Office Visit [facility] [address] [place] [phone] Freddie Delgado, VOICE DATA COMMUNICATIONS ENGINEER-CRUCIBLE PACKER [address] [place] [phone] [facility] Start: 12-10-2023 End: 12-10-2023 Patient encounter procedure 12/10/2023 2:20 PM EDT Routine [facility] [address] [place] [id number] Eliazar Castaneda DO [address] [place] [address] [facility] Start: 11-20-2023 End: 11-20-2023 Patient encounter procedure 11/20/2023 8:00 AM EST Appointment [facility] - Ultrasound [address] [place] [address] [facility] Start: 11-12-2023 End: 11-12-2024 US for US OB ANATOMY SINGLE W US OB CERVICAL LENGTH Imaging Routine Screening, , for anatomic survey Expected: 11/12/2023 (Approximate), Expires: 11/12/2024 [facility] Comment on above: Expected: 11/12/2023 (Approximate), Expires: 11/12/2024 Start: 10-01-2023 Behavioral Health Screening Behavioral Health Screening [facility] Start: 10-01-2023 Depression Assessment Depression Ass essment [facility] Start: 06-01-2023 Covid-19 Vaccine ( season) Covid-19 Vaccine () [facility] Start: 06-01-2023 Influenza vaccination P [facility] Start: 05-03-2023 Screening for malign ant neoplasm of cervix Pap Smear [facility] Start: 03-19-2023 [facility] Start: 06-02-2020 [facility] Work Phone: Start: 06-01-2020 Influenza vaccination Flu vaccine (# 1) [place], [place] Start: 12-02-2019 Dental Comp Exam [facility] Work Phone: Start: 11-17-2019 [facility] Start: 10-21-2019 Lipid 1996 panel [facility] Work Phone: Start: 10-14-2019 [facility] Work Phone: Comment on above: Note: Please make a referral to: Start: 09-16-2019 Dental Comp Exam [facility] Work Phone: Start: 08-25-2019 Medical Establ ished Patient [facility] Work Phone: Start: 08-20-2019 Urine Pregnanc y Test, In House [facility] Work Phone: Start: 2018 Screening for malign ant neoplasm of cervix HPV Testing [facility] Start: 2009 Screening for malign ant neoplasm of cervix [facility] Start: 2007 DTaP/Tdap/Td vaccine (1 - Tdap) DTaP/Tdap/Td vaccine (1 - Tdap) [place], [place] Start: 2007 Hepatitis B Vaccine (1 of 3 - 19+ 3-dose series) Hepatitis B Vaccine (1 of 3 - 19+ 3-dose series) [facility] Start: 2006 Adult BMI Follow Up Plan Adult BMI Follow Up Plan [facility] Start: 2006 Annual PCP Team Genetics Physician lorne Disease Visit Annual PCP Team Chronic Disease Visit [facility] Start: 2006 Hepatitis C screening Hepatitis C Sc reening [facility] Start: 2006 HIV screening HIV Screening [facility] Start: 2006 Spirometry Spirometry [facility] Start: 2003 HIV screening HIV screen [place], [place] Start: 1989 Varicella vaccine (1 of 2 - 2-dose childhood series) Varicella vaccine (1 of 2 - 2-dose childhood series) [place], [place] Adjt tis trns/reargm t f/c/c/m/n/a/g/h/f 10sqcm/< TRANSFER / REARRANGEMENT ADJACENT TISSUE FACE/NECK DEFECT 10 SQ CM OR LESS Malignant melanoma of skin (HCC) [facility] A60 Alpha fetoprotein, maternal Alpha fetoprotein, maternal Lab Routine Second trimester Ordered: 11/12/2023 [facility] Work Phone: Comment on above: Ordered: 11/12/2023 Bx/exc lymph node op en deep cervical node BIOPSY NODE CERVICAL NECK Malignant melanoma of skin (HCC) [facility] A60 End: 05-03-2020 C.trachomatis N.gonorrhoeae DNA, Thin Prep C.trachomatis N.gonorrhoeae DNA, Thin Prep Microbiology Routine Once for 1 Occurrences starting 05/03/2020 until 05/03/2020 [place], [place] Comment on above: Once for 1 Occurrenc es starting 05/03/2020 until 05/03/2020 C.trachomatis N.gonorrhoeae DNA, Thin Prep C.trachomatis N.gonorrhoeae DNA, Thin Prep Microbiology Routine 05/03/2020 7:32 AM EDT [facility], [place] Excision malignant lesion f/e/e/n/l >4.0 cm EXCISION MALIGNANT LESION FACE OVER 4.0 CM Malignant melanoma of skin (HCC) [facility] A60 Inj radioactive trac er for id of sentinel node INJECTION PROCEDURE RADIOACTIVE TRACER FOR IDENTIFICATION OF SENTINEL NODE Malignant melanoma of skin (HCC) [facility] A60 Intraop sentinel lym ph node id w/dye injection INTRAOPERATIVE ID OF SENTINEL LYMPH NODE(S) INCL'D INJECTION OF NON-RAD DYE WHEN PERFORMED Malignant melanoma of skin (HCC) [facility] A60 End: 02-02-2025 NM Lymph node Views NM LN IMAGING MELANOMA Radiology Routine Malignant melanoma of skin (HCC) 1 Occurrences starting 01/06/2024 until 02/02/2025 [facility] Work Phone: Comment on above: 1 Occurrences starti ng 01/06/2024 until 02/02/2025 Patient Education Hiatal Hernia (DC) [facility] Work Phone: [facility] A60 Immunizations Immunization Date Immunization Notes Care Provider Maryuri gómez 05-11-2023 influenza virus vaccine, unspecified formulation Katarina Antonio [facility] Work Phone: [facility] 07-16-2022 SARS-COV-2 (COVID-19 ) vaccine, mRNA, spike protein, LNP, bivalent, PF Dionne BRAN Work Phone: [facility] 01-24-2018 tetanus toxoid, redu cam[place] diphtheria toxoid, and acellular pertussis vaccine, adsorbed Dionne BRAN Work Phone: [facility] Payers Date Payer Category Payer Self-pay 2022 Medicaid [id number] 2019 Unknown 1 - [employer] [id number] 2017 Unknown [id number] 1988 Unknown [id number] 2.16.84 0.1.946485.3.579.2.593 1988 Unknown [id number] 2.16.84 0.1.924250.3.579.2.593 1988 Unknown [id number] 2.16.84 0.1.774302.3.579.2.593 1988 Unknown [id number] 2.16.84 0.1.201065.3.579.2.593 1988 Unknown [id number] 2.16.84 0.1.827185.3.579.2.593 1988 Unknown [id number] 2.16.84 0.1.657524.3.579.2.593 1988 Unknown [id number] 2.16.84 0.1.669219.3.579.2.593 1988 Unknown [id number] 2.16.84 0.1.140721.3.579.2.593 1988 Unknown [id number] 2.16.84 0.1.665135.3.579.2.593 1988 Unknown [id number] 2.16.8 40.1.583949.3.579.2.1285 1988 Unknown [id number] 2.16.8 40.1.056518.3.579.2.1285 1988 Unknown [id number] 2.16.8 40.1.476020.3.579.2.1285 1988 Unknown [id number] 2.16.8 40.1.371818.3.579.2.1285 1988 Unknown [id number] 2.16.8 40.1.682123.3.579.2.1285 1988 Unknown [id number] 2.16.84 0.1.248478.3.579.2.1286 1988 Unknown [id number] 2.16.84 0.1.229254.3.579.2.1258 1988 Unknown [id number] 2.16.84 0.1.207694.3.579.2.1258 1988 Unknown [id number] 2.16.84 0.1.976430.3.579.2.1258 1988 Unknown [id number] 2.16.84 0.1.182913.3.579.2.1258 1988 Unknown [id number] 2.16.84 0.1.230859.3.579.2.1258 1988 Unknown [id number] 2.16.84 0.1.704769.3.579.2.1258 1988 Unknown [id number] 2.16.840 .1.241438.3.579.2.1258 1988 Unknown [id number] 2.16.8 40.1.421829.3.579.2.1285 1988 Unknown [id number] 2.16.8 40.1.986872.3.579.2.1285 1988 Unknown [id number] 2.16.8 40.1.623354.3.579.2.1286 1959 Medicaid [id number] 2. 16.840.1.247699.19 Self-pay [id number] 2.16.840 .1.127413.3.140.1.68982.5.4 Unknown [employer] [id number] Unknown [id number] 2.16.8 40.1.151837.3.579.2.531 Unknown [id number] 2.16.8 40.1.255072.3.579.2.531 Social History Date Type Detail Facility Assertion Alcohol consumpt ion screening (procedure) [facility] Work Phone: Assertion [facility] Assertion Finding of alcoh ol intake (finding) [facility] Work Phone: Assertion Sexually active (finding) [facility] Work Phone: Assertion Gender identity finding (finding) [facility] Work Phone: Assertion Finding of sexua l orientation (finding) [facility] Work Phone: Tobacco smoking status Unknown if ever smoked [facility] Assertion Emotional stress (finding) [facility] Work Phone: Start: 1990 Sex Assigned At Not on file [employer] [place], [place] Assertion Contraception (finding) [facility] Work Phone: Start: 09-10-2023 End: 01-21-2024 Sex Assigned At [facility] Start: 1990 Sex Assigned At Female [facility] Start: 04-05-2022 End: 12-26-2023 Tobacco smoking status NHIS Never smoked tobacco [facility] Start: 04-05-2022 End: 12-26-2023 Tobacco use and exposure Smokeless tobacco non-user [facility] Start: 10-10-2023 End: 12-17-2023 Alcohol intake Ex-drinker (finding) [facility] Start: 09-10-2023 End: 01-21-2024 History of Social function [facility] How hard is it for you to pay for the very basics like food, housing, medical care, and heating Very hard [facility] Start: 07-12-2023 [facility] Start: 11-12-2023 Alcohol intake Lifetime non-d rhys (finding) [facility] Start: 03-09-[address] [facility] hcare Start: 03-09-2023 Alcohol Comment Caffeine intak e: 1-2 cups per day coffee, pop [facility] Start: 12-26-2023 End: 01-21-2024 Alcohol intake Current drinker of alcohol (finding) [facility] NEGATED: Highlighted row Assertion He has not had 5 or more drinks in a day within the past year. [facility] Work Phone: NEGATED: Highlighted row Assertion Exposure to pollution (event) [facility] Work Phone: NEGATED: Highlighted row Assertion Tobacco user (finding) [facility] Work Phone: NEGATED: Highlighted row Assertion Current drinker of alcohol (finding) [facility] Work Phone: NEGATED: Highlighted row Assertion Finding relating to drug misuse behavior (finding) [facility] Work Phone: Goals Date Patient Goal Desired Activity /State Personal health goal Mental Status Date Assessment Result Facility Cognitive function 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 Author Type: Registered Nurse Type: Progress Notes Filed: 02/22/2024 10:47 Note Text: Radiology Service Progress Note DATE OF SERVICE: February 22, 2024 TIME: 10:46 AM PATIENT WEIGHT: 198LBS PATIENT IDENTITY VERIFICATION COMPLETED USING TWO (2) STANDARD IDENTIFIERS: Name and Date of confirmed by patient verbally. FALL SCREENING: Has the patient had 2 falls in the last year or 1 fall with injury or currently using an Ambulatory Assistive Device (Walker, Cane, Wheelchair, Crutches, etc.)? No PATIENT GENDER DATA: Female. status: : Yes. Internal Quality Check OK. Reference Range: Negative status: NO. ALLERGIES: Reviewed and unchanged CONTRAST ALLERGY: No EXAM: CT -CONTRAST INDUCED NEPHROPATHY RISK FACTORS: Not applicable CREATININE: Creatinine Date Value Ref Range Status 02/20/2024 0.61 0.58 - 0.96 mg/dL Final 12/26/2023 0.64 0.58 - 0.96 mg/dL Final Estimated Glomerular Filtration Rate Date Value Ref Range Status 02/20/2024 120 >=60 mL/min/1.73m? Final Comment: Estimated Glomerular Filtration Rate (eGFR) is calculated using the 2020 CKD-EPI creatinine equation. This equation utilizes serum creatinine, sex, and age as parameters. The creatinine assay has traceable calibration to isotope dilution-mass spectrometry. Refer to KDIGO guidelines for clinical interpretation. In patients with unstable renal function, e.g. those with acute kidney injury, the eGFR may not accurately reflect actual GFR. P.O.C.T. RESULTS: POC done: Yes, See Lab Tab February 22, 2024 TREATMENT: N/A IV SITE: Ambulatory: A peripheral IV was started in the Right antecubital site with a Angio cath: 20 gauge. IV SITE APPEARANCE: Clean,Dry and Intact SIGNATURE: Pacheco Bowen RN PATIENT NAME: Vy Mckeon DATE: February 22, 2024 TIME: 10:46 AM [facility] 02-22-2024 Note HNO ID: [id number] Author: BRANDON RDZ RT(R) Service: ? Author Type: Technologist Type: Progress Notes Filed: 02/22/2024 11:10 Note Text: Radiology Service Progress Note PATIENT NAME: Vy Mckeon DATE OF SERVICE: February 22, 2024 TIME: 11:10 AM PATIENT IDENTITY VERIFICATION COMPLETED USING TWO (2) IDENTIFIERS: Name and Date of confirmed by patient verbally. FALL SCREENING: Has the patient had 2 falls in the last year or 1 fall with injury or currently using an Ambulatory Assistive Device (Walker, Cane, Wheelchair, Crutches, etc.)? No PATIENT GENDER DATA: Female. status: : No status: NO. PATIENT RELEVANT IMPLANT DATA REVIEWED: Not Applicable PATIENT PRESENTS WITH AN IMPLANTABLE OR ATTACHED SALESPERSON SURGICAL APPLIANCES: No RADIOLOGY DEPARTMENT: CT; Exam(s) Completed: Chest and Neck PERIPHERAL IV DATA: Site assessment: Clean,Dry and Intact, Site disposition Discontinued SIGNED BY: RT Dante(R) February 22, 2024 11:10 AM [facility] 01-25-2024 Telephone encounter Note Pt is not able to make the appt on 02/11; amina wondering if this should be on March 14 instead? Thanks [facility] 01-25-2024 Miscellaneous Notes Pt is not able to make the appt on 02/11; amina wondering if this should be on March 14 instead? Thanks documented in this encounter [facility] 01-24-2024 Telephone encounter Note Vy is scheduled for her CT scan on 02/21 at 11am. She is scheduled for her labwork still, on Sunday, 02/19. I spoke with Vy and she is in agreement. Angela Arthur [facility] 01-24-2024 Miscellaneous Notes Vy is scheduled for her CT scan on 02/21 at 11am. She is scheduled for her labwork still, on Sunday, 02/19. I spoke with Vy and she is in agreement. Angela Arthur Clerical: Please call pt to schedule CT scans. Brandon Churchill, BRITNEY It's ok to move up - but [...] were not included. documented in this encounter [facility] 01-24-2024 Telephone encounter Note Clerical: Please call pt to schedule CT scans. Brandon Churchill RN [facility] Work Phone: 01-24-2024 Telephone encounter Note It's ok to move up - but I'd want to know closer to delivery (33 weeks - 34 weeks) because then there won't be a need for additional scans later. Labs are to be done prior to CT. [facility] 01-24-2024 Telephone encounter Note Images from the original note were not included. Ana Peoples MD Abhyankar, Vivek, MD 1 hour ago (8:13 AM) MACK Ndiaye, That is fine obstetrically if you are comfortable waiting that long from an Onc point of view. She can have the CT scan anytime as far as I am concerned. Ana Peoples MD Louisa: Can we go ahead and schedule the CT ahead of 02/19? Brandon Churchill RN [facility] 01-24-2024 Telephone encounter Note Is the [...] enough time. Vy Deshpande: Please advise Lindsay Murray, BRITNEY [facility] 01-23-2024 Telephone encounter Note We won's be doing scans for 4 weeks.... that works out to be around 33 weeks gestation Does that sound right? (February 19) Jerson, louisa. [facility] 01-23-2024 Telephone encounter Note Pt calls regarding CT scans. Please place orders. Thanks! Brandon Churchill, RN [facility] 01-22-2024 Telephone encounter Note 01/22/2024 [facility] Pt called and identified ~ 12:30 [...] known. All questions answered. Ana Peoples MD [facility] 01-22-2024 Miscellaneous Notes 01/22/2024 [facility] Pt called and identified ~ 12:30 [...] Ana Peoples MD documented in this encounter [facility] 01-22-2024 Note HNO ID: [id number] Author: ANA PEOPLES MD Service: ? Author [...] Fransico Sharp MD Pts general OBGYN in [place], [place]: Eliazar Castaneda MD The plan is for wide local excision with reconstruction, which may take multiple trips to the OR. The OR plan involves radioactive tracer for sentinal node She has not been imaged for staging. She comes to [facility] today for discussion on when to [...] previa antepartum in second trimester Overview 01/21/2024 [facility] Previa resolved on US today. Placenta > 2cm away from the cervix. Ana Peoples MD Other Visit Diagnoses Malignant melanoma of skin (HCC) I spent 70 minutes in the visit, with more than 50% of the total arta-xs-qgvu time of the visit in counseling / coordination of care. I shared my findings and recommendations via the shared medical record or via the mail to the referring provider. Ana Peoples MD [facility] 01-22-2024 Telephone encounter Note Images from the original note were not included. [facility] 01-22-2024 History of Present illness Narrative [...] Fransico Sharp MD Pts general OBGYN in [place], [place]: Eliazar Castaneda MD The plan is for wide local excision with reconstruction, which may take multiple trips to the OR. The OR plan involves radioactive tracer for sentinal node She has not been imaged for staging. She comes to [facility] today for discussion on when to [...] with more than 50% of the total phxm-ri-bimn time of the visit in counseling / coordination of care. I shared my findings and recommendations via the shared medical record or via the mail to the referring provider. Ana Peoples MD documented in this encounter [facility] 01-18-2024 Miscellaneous Notes Called pt, verified [...] L Crowley MA documented in this encounter [facility] 01-10-2024 Miscellaneous Notes [employer] msg was sent to patient asking for call back to this coordinator to schedule MFM consultation. documented in this encounter [facility] 01-09-2024 Miscellaneous Notes Reached out to patient. Instructions provided to see a maternal medicine specialist within the [facility] per Dr. Sharp. This nurse explained that the multidisciplinary team will need frequent communications in arranging the plan of care, and staying in one healthcare system will help facilitate planning. Patient called that she is seeing Maternal Med, in her area and was questioning does she need to see one at the [facility]? She is asking for a call.. she is very nervous documented in this encounter [facility] 01-04-2024 Instructions Valerie Bedoya RN - 01/04/2024 3:21 PM EDT PLAN: - Photos taken and uploaded to chart today via [employer] - Pathology re-read to be obtained - Surgical plan is for resection of left upper lip melanoma, reconstruction with local tissue rearrangement, and a sentinel lymph node biopsy - Surgery at [facility] or [facility]. Likely plan is to wait for surgical intervention until after 36 weeks . - Pre op clearance (PACC) prior to surgery for clearance to receive general anesthesia; must be done at a [facility] location - Nuclear medicine appointment at [facility] the morning of surgery - Post op 7-10 days with Tana Cervantes APRN.CRUCIBLE PACKER - Consult placed to Maternal Medicine (MFM) for risk assessment and guidance: call [phone] to schedule. - Recommend regular dermatology follow-up for FBSE - Q3 months for 2 years, Q6 months for 5 years and Q1 year for the rest of his/her life Our salesperson surgical appliances will contact you to set up all [...] office with questions/concerns. documented in this encounter [facility] 12-28-2023 Note HNO ID: [id number] Author: FRANSICO SHARP MD Service: ? Author Type: Physician Type: Progress Notes Filed: 01/06/2024 09:42 Note Text: DATE: January 03, 2024 CC: New Melanoma Patient Referring Physician: Margarita Kim MD at Dermatology Count Includes [facility] in [place] HPI: Vy Mckeon is a 33 year [...] 400 mg by mouth. omeprazole magnesium (ACID DURABILITY ENGINEER, OMEPRAZOLE, ORAL) Take by mouth as directed. [...] left upper lip with a variegated pattern, pond sawyer in the middle with a number of dark spots. The lesion measures 1 cm in diameter. Photos taken, see [facility] Get Images LABS: Pathology Report - [...] taken and uploaded to chart today via [employer] - Pathology re-read to be obtained - Surgical plan is for resection of left upper lip melanoma, reconstruction with local tissue rearrangement, and a sentinel lymph node biopsy - Surgery at [facility] or . Likely plan is to wait for surgical intervention until after 36 weeks . - PACC prior to surgery - Nuclear medicine appointment at [facility] the (more content not included)... [facility] 12-28-2023 History of Present illness Narrative Images from the original note were not included. DATE: January 03, 2024 CC: New Melanoma Patient Referring Physician: Margarita Kim MD at [facility] [place] HPI: Vy Mckeon is a 33 year [...] 400 mg by mouth. omeprazole magnesium (ACID DURABILITY ENGINEER, OMEPRAZOLE, ORAL) Take by mouth as directed. [...] left upper lip with a variegated pattern, pond sawyer in the middle with a number of dark spots. The lesion measures 1 cm in diameter. Photos taken, see [facility] Get Images LABS: Pathology Report - [...] taken and uploaded to chart today via [employer] - Pathology re-read to be obtained - Surgical plan is for resection of left upper lip melanoma, reconstruction with local tissue rearrangement, and a sentinel lymph node biopsy - Surgery at [facility] or . Likely plan is to wait for surgical intervention until after 36 weeks . - PACC prior to surgery - Nuclear medicine appointment at [facility] the morning of surgery - Post op 7-10 days with Tana Cervantes APRN.CRUCIBLE PACKER - Consult placed to [facility] for risk assessment and guidance: call [phone] to schedule. - Recommend regular dermatology follow-up for FBSE - Q3 months for 2 years, Q6 months for 5 years and Q1 year for the rest of his/her life - Patient follows with OBGYN Dr. Castaneda in [place], [place] Follow up after 36 weeks of and with [facility]'s recommendations. The patient is seen and examined by Dr. Sharp and the following reflects his service. Scribed by Valerie Bedoya RN STAFF NOTE: I agree with the Chief Complaint, ROS, and Past Histories independently gathered by the clinical care support representative and the remaining scribed note accurately describes [...] we would coordinate this with her high lift operator team here at the [facility]. While I believe this to [...] Fransico Sharp MD documented in this encounter [facility] 12-26-2023 Note HNO ID: [id number] Author: USMAN GOLDBERG MD Service: ? Author Type: Physician Type: Progress Notes Filed: 12/27/2023 12:46 Note Text: NAME: Vy Mckeon [facility] NO.: [id number] DATE OF SERVICE: December 26, 2023 (Krystal) [...] 400 mg by mouth. omeprazole magnesium (ACID DURABILITY ENGINEER, OMEPRAZOLE, ORAL) Take by mouth as directed. PNV no.95/ferrous fum/folic ac ( ORAL) Take by mouth as directed. LABORATORY VALUES: WBC (k/uL) Date Value 12/26/2023 9.72 RBC (m/uL) Date Value 12/26/2023 3.99 Hemoglob (more content not included)... [facility] 12-17-2023 History of Present illness Narrative Subjective Patient ID: Vy Mckeon is a 33 y.o. female. FRANDY Mcclellan presents to the office for follow up.She was last seen with continued depression and anxiety and had stopped taking Zoloft, hydroxyzine and trazodone because she was found to be . She is 22 weeks along in her with Placenta previa. Last OLERICULTURIST visit 12/11/23 with . carrier screening result [...] not have morning sickness. Lab work from [facility] 12/10 pre- visit RBC-3.72, HGB 11.2, HCT [...] normal. Behavior: Behavior normal. Assessment/Plan Follow-up with OLERICULTURIST for follow-up on hematology result showing minimally [...] for sleep. Note completed with assistance of HUMAN GEOGRAPHY INSTRUCTOR student. GIOVANNI Darling 12/17/23 1538 documented in this encounter [facility] 12-17-2023 Miscellaneous Notes Disclaimer: This note [...] legal medical record. documented in this encounter [facility] 12-17-2023 Progress note Formatting of t [...] a part of the legal medical record. [facility] 12-07-2023 History of Present illness Narrative Summary: FOB carrier screening results Called Vy to let her know that FOB's carrier screening result for GJB2-related disorders is negative. The is low risk to be affected with this condition. Vy understood and had no additional questions. I encouraged her to reach out if anything comes up. documented in this encounter [facility] 11-20-2023 History of Present illness Narrative Video Visit via Real-time Synchronous Audiovisual Provider Location: [facility] [address], [address] [place] [phone] Patient Location: Other Patient Location Sifting Operator: None Video Visit Consent Statement: I discussed [...] that there are some limitations compared to yeyk-fs-vxlb evaluations. We elected to proceed. REASON FOR OFFICE VISIT: placenta previa HISTORY OF PRESENT ILLNESS: Vy Ornelas Mike is a pleasant 33 y.o. [...] for nausea or vomiting., Disp: , Rfl: [id number] 29-1-400 mg combo pack,tablet & cap,, Take [...] TESTS AND ULTRASOUND REPORTS: Referral records and [facility] chart were reviewed Pertinent Ultrasound findings [...] patient is in complete care of her agriculture manager. Patient does have ultrasound and office visit scheduled with us. Thank you for allowing me to participate in the care of Vy Mckeon. If there any questions please do not hesitate to contact us. Fidencio Rojas MD Maternal- Medicine [facility] [address] [facility] 1st Floor [place] [phone] [facility], the CDC, and other organizations representing maternal and public health professionals recommend that , , and lactating people and those considering receive the COVID-19 vaccination. Vaccination is the best method to reduce maternal and complications of SARS-CoV-2 infection. This document was created with [employer] technology. Though I make every effort to review the dictation as it is transcribed, on occasion the spoken word can be misinterpreted by the technology leading to inappropriate words, phrases, or sentences. This note is addressed to the requesting provider as a consultation for clinical guidance. Specific medical abbreviations are occasionally used and those are generally approved by the [place]?Board of?Obstetrics and?Gynecology?as well as?Justyna rea abbreviations. The above plan of care was based solely on the diagnoses for which a consultation was requested. ?More frequent testing may be indicated based on her other medical/obstetrical conditions. The management of other or medical conditions is beyond the scope of requested consultation and will continue to be followed by the primary agriculture manager or primary care provider. Note to patient: The 21st Century Cures Act makes medical notes like these [...] of the practitioner. documented in this encounter [facility] 11-12-2023 History of Present illness Narrative Reason for Appointment: Patient ID: Vy Mckeon is a 33 y.o. female who presents for Routine Visit Patient presents today for Return OB appointment. Current Medications: has a current medication list which includes the following prescription(s): valacyclovir. Medical History: Active Ambulatory Problems Diagnosis Date Noted Attention deficit hyperactivity disorder ([facility]/HCC) 02/13/2023 Bipolar disorder, most recent episode depressed ([facility]) 02/13/2023 Depression (CMS/HCC) 02/13/2023 Generalized anxiety disorder (CMS/HCC) 02/13/2023 Insomnia 02/13/2023 Mild episode of recurrent major depressive disorder (HCC) (CMS/HCC) 02/13/2023 Mild intermittent asthma without complication (CMS/HCC) 02/13/2023 Asthma exacerbation, mild (CMS/[facility]) 02/13/2023 Mild persistent asthma with (acute) exacerbation (CMS/[facility]) 02/19/2023 Second trimester 10/08/2023 AMA (advanced maternal [...] calculated from the following: Height as of 03/12/23: 5' 7 . Weight as of this [...] without difficulty and patient was given [facility] order to have obtained. Follow Up: Patient is to return to our office in 4 weeks for routine OB appointment Documented by Dana Farris LPN on behalf of: SHANT España documented in this encounter [facility] 11-12-2023 History of Present illness Narrative [...] questions or concerns. documented in this encounter [facility] 10-29-2023 History of Present illness Narrative [...] completed between 11/10-11/17. documented in this encounter [facility] 10-22-2023 History of Present illness Narrative Summary: M Genetic Counseling Note Provider at different site/location than patient. I confirmed the patient is located in the [facility]. Vy Mckeon is currently at home and provider at remote site. The patient consented to be treated electronically via this form of telemedicine. This visit was not related to an office visit or procedure in the past 7 days, and in-office follow up is not recommended in the next 24 hours. Video Visit via Real-time Synchronous Audiovisual Provider Location: [facility] [address] [phone] Patient Location: Patient's home Patient Location Sifting Operator: None Video Visit Consent Statement: I discussed [...] that there are some limitations compared to slsn-jo-ngta evaluations. We elected to proceed. Name: Vy Mckeon : 1990 Date of Visit: 10/22/2023 Email: [email or web address] Preferred contact method: email Partner's Name: Bogdan Age: 32 Requesting Physician: Eliazar Castaneda DO [address] [place] [address] , [place] [address] Reason for Referral: Vy Mckeon is a 33 y.o. female who presented to [facility]. Vy is here at [...] Screen: YES - low risk Performing lab: [facility] (UNITY Screen) Conditions screened: Trisomy 13, Trisomy [...] neural tube defects, multiple miscarriages, stillborns or infant deaths, and other known genetic conditions. Pedigree [...] of the medical records and evaluation by certified medical biller of the affected individual would be recommended. [...] age I personally spent 25 minutes in wwys-ml-cojx time with this patient. I provided genetic [...] call or email their genetic counselor at [phone] or [email or web address] if any additional questions or concerns should arise. TAMMY Soto Licensed, Certified Genetic Counselor documented in this encounter [facility] 05-29-2023 Evaluation note Encounter Date Diagnosis Assessment Notes May, Thrush (ICD-10 - B37.0) Continue home medications as prescribed. Use the nystatin mouthwash as prescribed, swish and swallow. Follow-up with your family physician if no improvement in 2 to 3 days [facility] Other [facility]* Encounter Date Diagnosis [...] educated on the importance of PPI optimization [facility] Other 05-10-2023 Evaluation note* Encounter Date Diagnosis [...] January, Other Contusion mater ial was printed [facility] Other 08-23-2022 NoteOPERATIVE NOTE OPERATION DATE: 05/23/2022 PROCEDURE: Suction D AND C. PREOPERATIVE DIAGNOSIS: Missed . POSTOPERATIVE DIAGNOSIS: Missed . ANESTHESIA: General. SURGEON: Eliazar Castaneda D.O. QUALITY ASSURANCE REPRESENTATIVE: None. FINDING: Products of conception. SPECIMEN: Products [...] products of conception were removed using an 8-Iraqi suction curette. Excellent hemostasis was noted. The patient tolerated the procedure well. Sponge, lap, and needle counts were correct x 2. All instruments were then removed from the patient's vagina. The patient was taken to the Recovery Room in stable condition. [facility] Includes: Assessments for all patient encounters Findings Encounter Date [facility]ressive [facility] Emilee Claribel [facility] 03/29/2020 Generalized anxiety disorder [facility] with Emilee Claribel [facility] 03/29/2020 Dysthymic disorder Established Patie nt with Bobbi Colon [facility] 10/14/2019 Generalized anxiety disorder Establis hed Patient with Bobbi Colon [facility] 10/14/2019 Z68.24 - Body mass index (BM I) 24.0-24.9 adult Medical Established Patient with Candace Grossman [facility] 10/14/2019 F34.1 - Dysthymic disorder BH Establishe d Patient with Bobbi Colon [facility] 09/04/2019 Generalized anxiety disorder BH Establis hed Patient with Bobbi Colon [facility] 09/04/2019 Body mass index Medical Established Patient with Candace Grossman [facility] 09/04/2019 Diabetes Risk Test Score was 0 score 09/04/2019 Medical Established Patient with Candace Grossman [facility] 09/04/2019 Body mass index Nurse Visit with Candace Grossman P 08/19/2019 Diabetes Risk Test Score was 0 score 08/19/2019 Nurse Visit with Candace Grossman [facility] 08/19/2019 Generalized anxiety disorder BH Establis hed Patient with Bobbi Colon [facility] 07/28/2019 Severe recurrent major depre 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 features BH Established Patient with Bobbi Colon [facility] 07/28/2019 AUDIT alcohol use disorders identification test was six 07/28/2019 Medical New Patient with Candace Grossman [facility] 07/28/2019 Diabetes Risk Test Score was 0 score 07/28/2019 Medical New Patient with Candace Grossman [facility] 07/28/2019 ZAN-7 score was 21 07/28/2019 Medical Ne w Patient with Candace Grossman [facility] 07/28/2019 PHQ-9: total score was 21 07/28/2019 Med ical New Patient with Candace Grossman [facility] 07/28/2019 Z68.22 - Body mass index (BM I) 22.0-22.9 adult Medical New Patient with Candace Grossman [facility] 07/28/2019 [facility] Work Phone: Evaluation noteNo assessment information available [facility] Work Phone: Evaluation note* Diagnosis Onset Date Resolution Status GERD (gastroesophageal reflux disease) acute [facility] Work Phone: Evaluation note* Diagnosis [...] headache, not intractable documented in this encounter [facility] HealthcareEvaluation note* Diagnosis Multigravida of advanced maternal age in second trimester Family history of autism Family history of mental disorder Family history of psychiatric condition [facility] Diagnosis 20 weeks gestation of - Primary Placenta previa antepartum in second trimester Advanced maternal age in multigravida, second trimester documented in this [facility]* Diagnosis Placenta previa antepartum in second trimester- Primary Multigravida of advanced maternal age in second trimester documented [facility]* Diagnosis Nausea and vomiting, unspecified vomiting type- Primary Psychophysiological insomnia Persistent disorder of initiating or maintaining sleep documented in this encounter [facility]* Diagnosis Malignant melanoma of skin (HCC)- Primary Melanoma of skin, site unspecified [facility] Diagnosis Encounter for anatomic survey Encounter for anatomic survey- Primary documented in this encounter [facility]* Diagnosis Encounter for anatomic survey documented [facility]* Diagnosis Malignant melanoma of skin (HCC) Melanoma of skin, site unspecified Skin cancer Unspecified malignant neoplasm of skin, site unspecified Placenta previa antepartum in second trimester * Assessment & Plan Note - Ana Peoples MD - 01/21/2024 1:34 PM EDT Associated Problem(s): Skin cancer 01/22/2024 [facility] Pt is a 33 year old 29w4d with a new diagnosis of malignant melanoma located above the left upper lip. Oncologist Usman Goldberg MD Surgeon Fransico Sharp MD Pts general OBGYN in [place], [place]: Eliazar Castaneda MD The plan is for wide local excision with reconstruction, which may take multiple trips to the OR. The OR plan involves radioactive tracer for sentinal node She has not been imaged for staging. She comes to [facility] today for discussion on when to [...] pt can deliver closer to home at [facility] if she goesat term and the CT does not show any spread.. We would need to find a way to get the placenta to [facility] for examination. I have left a message with Dr. Castaneda's office to call me back so that we can confirm ability to get placenta to [facility] for pathology should she deliver at [place]. Ana Peoples MD documented [facility] this encounter [facility]* Diagnosis Malignant melanoma of skin (HCC)- Primary Melanoma of skin, site unspecified Malignant melanoma of skin (HCC) Melanoma of skin, site unspecified documented [facility] this encounter [facility] Narrative - Reported* Type Description Date Medical History anxiety Medical History depression Medical History ADHD Surgical History D&C [facility] Other History general Narrative - Reported* Type Description Date Medical History anxiety Medical History depression Medical History ADHD Surgical History D&C 2021 [facility] Other History of Present illness Narrative History of Present Illness not supported for this document type No History of Present Illness [facility] Work Phone: Hospital Discharge instructions Additional Instructions [...] if you have any problems. -Office number [phone] Work Phone: Instructions Instructions not supported for this document type No Instructions [facility] Work Phone: InstructionsNot on filedocumented in this encounter [facility] filedocumented in this encounter [facility]ructionsNot on filedocumented in this encounter [facility] problem outcome Narrative Includes: Evaluations & Outcomes for active Goals No Outcomes [facility] Work Phone: reason for referral (narrative)No Reason for Referral [facility] Work Phone: reason for referral (narrative)* Diagnostic Procedure Only (Routine) - Closed Specialty Diagnoses / Procedures Referred By Kalina ghotra Referred To Contact [facility] Diagnoses Encounter for anatomic survey Procedures OBSTETRIC ULTRASOUND WHI US PREG UTERUS AFTER 1ST TRIMEST [place] [address] [place] [address] [facility] [address] [place] [address] Referral ID Status Reason Start Date Expiration Date V isits Requested Visits Authorized [id number] Closed Auto-Generate d Referral 01/21/2024 01/20/2025 1 1 [facility] for visit NarrativeUNCONTROLLED GERD//REFERRAL FROM [facility] Other Reason for visit Narrative* Consultation (Routine) - Pending Review Specialty Diagnoses / Procedures Referred By Kalina t Referred To Contact Maternal and Medicine Diagnoses Multigravida of advanced maternal age in second trimester Eliazar Castaneda R, DO [address], [place] [address] [facility]aternal [facility] [address] [place] [address] Referral ID Status Reason Start Date Expiration Date Visits Requested Visits Authorized [id number] Pending Review Specialty Services Required 10/10/2023 10/09/2024 1 1 [facility] N[facility]* Diagnostic Procedure Only (Routine) - Closed Specialty Diagnoses / Procedures Referred By Contac t Referred To Contact [facility] Diagnoses Encounter for anatomic survey Procedures OBSTETRIC ULTRASOUND WHI US PREG UTERUS AFTER 1ST [place] [address] [place] [address] [facility] [address] [place] [address] Referral ID Status Reason Start Date Expiration Date V isits Requested Visits Authorized [id number] Closed Auto-Generate d Referral 01/21/2024 01/20/2025 1 1 [facility] Narrative - Reported Review of Systems not supported for this document type No Review of Systems RecordedHealth [facility] Work Phone: Summary Purpose Family History No Family History Records Found Description Last Updated Paternal history of cardiovascular disor thuy 07/28/2019 Relationship Condition Age at Onset Recorded Date/T pia Not Specified Anxiety Unknown Chronic obstructive pulmonary disease Unk nown Advance Directives No Advanced Directives Records FoundDocuments on File Type Date Recorded Patient Public Health Microbiologist Expl anation Advance Directives and Living Will Power of Marine Cargo Specialist Advance Directive Response Recorded Date/ Time Advance Directives No February 07 3 3:12pm Reason for Referral Specialty Diagnoses / Procedures Referred By Contac t Referred To Contact Maternal and Medicine Diagnoses Placenta previa antepartum in second trimester Multigravida of advanced maternal age in second trimester Procedures US MFM with or without consult Fidencio Rojas MD [address] [place] [address] [facility] Maternal Med [address] [place] [address] Referral ID Status Reason Start Date Expiration Date V isits Requested Visits Authorized [id number] Pending Review 11/20/2023 11/19/2024 1 1 Specialty Diagnoses / Procedures Referred By Contac t Referred To Contact Diagnoses Malignant melanoma of skin (HCC) Procedures REFER TO PACC - PRE ANESTHESIA CONSULTATION CLINIC OFFICE/OUTPATIENT [facility] 60 MINUTES Fransico Sharp MD [address] [place] [address] Referral ID Status Reason Start Date Expiration Date Visits Requested Visits Authorized [id number] Authorized PCP Requested Referral 01/04/2024 01/03/2025 1 1 Specialty Diagnoses / Procedures Referred By Contac t Referred To Contact Diagnoses Malignant melanoma of skin (HCC) Procedures CONSULT TO MATERNAL MEDI OFFICE/OUTPATIENT [facility] MDM 60 MINUTES Fransico Sharp MD [address] [place] [address] Referral ID Status Reason Start Date Expiration Date Visits Requested Visits Authorized [id number] Authorized PCP Requested Referral Auto-Generate d Referral 01/04/2024 01/03/2025 1 1 Specialty Diagnoses / Procedures Referred By Contac t Referred To Contact CT IMAGING Diagnoses Malignant melanoma of skin (HCC) Procedures CT CHEST W IVCON DIAGNOSTIC COMPUTED TOMOGRAPHY THORAX W/CONTRAST Usman Goldberg MD [address] [place] [address] [address] [place] [phone] Ct Imaging [facility] Referral ID Status Reason Start Date Expiration Date Visits Requested Visits Authorized [id number] Authorized Auto-Generat ed Referral 02/20/2024 02/21/2025 1 1 Specialty Diagnoses / Procedures Referred By Contac t Referred To Contact CT IMAGING Diagnoses Malignant melanoma of skin (HCC) Procedures CT NECK SOFT TISSUE W IVCON CT SOFT TISSUE NECK W/CONTRAST MATERIAL Usman Goldberg MD [address] [place], [place] [address] [address] [place] [phone] Imaging [facility] Referral ID Status Reason Start Date Expiration Date Visits Requested Visits Authorized [id number] Authorized Auto-Generat ed Referral 02/20/2024 02/21/2025 1 1 Assessments Findings Encounter Date Generalized anxiety disorder BH Establis hed Patient with Bobbi Isaiah [facility] 07/28/2019 Severe recurrent major depre 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 features Established Patient with Bobbi Colon [facility] 07/28/2019 AUDIT alcohol use disorders identification test was six 07/28/2019 Medical New Patient with Candace Grossman [facility] 07/28/2019 Diabetes Risk Test Score was 0 score 07/28/2019 Medical New Patient with Candace Grossman [facility] 07/28/2019 ZAN-7 score was 21 07/28/2019 Medical Ne w Patient with Candace Grossman [facility] 07/28/2019 PHQ-9: total score was 21 07/28/2019 Med ical New Patient with Candace Grossman [facility] 07/28/2019 Z68.22 - Body mass index (BM I) 22.0-22.9 adult Medical New Patient with Candace Grossman [facility] 07/28/2019 Findings Encounter Date F34.1 - Dysthymic disorder BH Establishe d Patient with Bobbi Colon [facility] 09/04/2019 Generalized anxiety disorder BH Establis hed Patient with Bobbi Colon [facility] 09/04/2019 Body mass index Medical Established Patient with Candace Grossman [facility] 09/04/2019 Diabetes Risk Test Score was 0 score 09/04/2019 Medical Established Patient with Candace Grossman [facility] 09/04/2019 Body mass index Nurse Visit with Candace Grossman P 08/19/2019 Diabetes Risk Test Score was 0 score 08/19/2019 Nurse Visit with Candace Grossman [facility] 08/19/2019 Generalized anxiety disorder Establis hed Patient with Bobbi Colon [facility] 07/28/2019 Severe recurrent major depre 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 features Established Patient with Bobbi Colon [facility] 07/28/2019 AUDIT alcohol use disorders identification test was six 07/28/2019 Medical New Patient with Candace Grossman [facility] 07/28/2019 Diabetes Risk Test Score was 0 score 07/28/2019 Medical New Patient with Candace Grossman [facility] 07/28/2019 ZAN-7 score was 21 07/28/2019 Medical Ne w Patient with Candace Grossman [facility] 07/28/2019 PHQ-9: total score was 21 07/28/2019 Med ical New Patient with Candace Grossman [facility] 07/28/2019 Z68.22 - Body mass index (BM I) 22.0-22.9 adult Medical New Patient with Candace Grossman [facility] 07/28/2019 Findings Encounter Date Dysthymic disorder BH Established Patie nt with Bobbi Colon [facility] 10/14/2019 Generalized anxiety disorder BH Establis hed Patient with Bobbileif Colon [facility] 10/14/2019 Z68.24 - Body mass index (BM I) 24.0-24.9 adult Medical Established Patient with Candace Grossman [facility] 10/14/2019 F34.1 - Dysthymic disorder BH Establishe d Patient with Bobbi Colon [facility] 09/04/2019 Generalized anxiety disorder BH Establis hed Patient with Bobbileif Colon [facility] 09/04/2019 Body mass index Medical Established Patient with Candace Grossman [facility] 09/04/2019 Diabetes Risk Test Score was 0 score 09/04/2019 Medical Established Patient with Candace Grsosman [facility] 09/04/2019 Body mass index Nurse Visit with Candace Grossman P 08/19/2019 Diabetes Risk Test Score was 0 score 08/19/2019 Nurse Visit with Candace Grossman [facility] 08/19/2019 Generalized anxiety disorder BH Establis hed Patient with Bobbileif Colon [facility] 07/28/2019 Severe recurrent major depre 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 features Established Patient with Bobbi Colon [facility] 07/28/2019 AUDIT alcohol use disorders identification test was six 07/28/2019 Medical New Patient with Candace Grossman [facility] 07/28/2019 Diabetes Risk Test Score was 0 score 07/28/2019 Medical New Patient with Candace Grossman [facility] 07/28/2019 ZAN-7 score was 21 07/28/2019 Medical Ne w Patient with Candace Grossman [facility] 07/28/2019 PHQ-9: total score was 21 07/28/2019 Med ical New Patient with Candace Grossman [facility] 07/28/2019 Z68.22 - Body mass index (BM I) 22.0-22.9 adult Medical New Patient with Candace Grossman [facility] 07/28/2019 Findings Encounter Date Visit for: contraceptive management Women's Heal th with Linnea Samaniegole [facility] 04/08/2020 Z68.24 - Body mass index (BM I) 24.0-24.9, adult Women's Health with Linnea Samaniegole [facility] 04/08/2020 Depressive disorder Telebehavioral He alth with Emilee Short [facility] 03/29/2020 Generalized anxiety disorder Telebeha vioral Health with Emilee Short [facility] 03/29/2020 Dysthymic disorder Established Patie nt with Bobbi Colon [facility] 10/14/2019 Generalized anxiety disorder BH Establis hed Patient with Bobbi Colon [facility] 10/14/2019 Z68.24 - Body mass index (BM I) 24.0-24.9 adult Medical Established Patient with Candace Grossman [facility] 10/14/2019 F34.1 - Dysthymic disorder BH Establishe d Patient with Bobbi Colon [facility] 09/04/2019 Generalized anxiety disorder BH Establis hed Patient with Bobbi Colon [facility] 09/04/2019 Body mass index Medical Established Patient with Candace Houstonen [facility] 09/04/2019 Diabetes Risk Test Score was 0 score 09/04/2019 Medical Established Patient with Candace Ngoc [facility] 09/04/2019 Body mass index Nurse Visit with Cnadace Grossman P 08/19/2019 Diabetes Risk Test Score was 0 score 08/19/2019 Nurse Visit with Candace Ngoc [facility] 08/19/2019 Generalized anxiety disorder BH Establis hed Patient with Bobbileif Colon [facility] 07/28/2019 Severe recurrent major depre 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 features Established Patient with Bobbileif Colon [facility] 07/28/2019 AUDIT alcohol use disorders identification test was six 07/28/2019 Medical New Patient with Candace Ngoc [facility] 07/28/2019 Diabetes Risk Test Score was 0 score 07/28/2019 Medical New Patient with Candace Ngoc [facility] 07/28/2019 ZAN-7 score was 21 07/28/2019 Medical Ne w Patient with Candace Grossman [facility] 07/28/2019 PHQ-9: total score was 21 07/28/2019 Med ical New Patient with Candace Ngoc [facility] 07/28/2019 Z68.22 - Body mass index (BM I) 22.0-22.9 adult Medical New Patient with Candace Grossman [facility] 07/28/2019 Findings Encounter Date Body mass index Nurse Visit with Candace Grossman P 08/19/2019 Diabetes Risk Test Score was 0 score 08/19/2019 Nurse Visit with Candace Grossman [facility] 08/19/2019 Generalized anxiety disorder BH Establis hed Patient with Bobbileif Colon [facility] 07/28/2019 Severe recurrent major depre 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 features Established Patient with Bobbi Colon [facility] 07/28/2019 AUDIT alcohol use disorders identification test was six 07/28/2019 Medical New Patient with Candace Ngoc [facility] 07/28/2019 Diabetes Risk Test Score was 0 score 07/28/2019 Medical New Patient with Candace Ngoc [facility] 07/28/2019 ZAN-7 score was 21 07/28/2019 Medical Ne w Patient with Candace Ngoc [facility] 07/28/2019 PHQ-9: total score was 21 07/28/2019 Med ical New Patient with Candace Ngoc [facility] 07/28/2019 Z68.22 - Body mass index (BM I) 22.0-22.9 adult Medical New Patient with Candace Grossman [facility] 07/28/2019 Findings Encounter Date Overweight Women's Health with Candace Grossman [facility] 05/03/2020 Z68.24 - Body mass index (BM I) 24.0-24.9, adult Women's Health with Candace Ngoc [facility] 05/03/2020 Visit for: contraceptive management Women's Heal th with Linnea Escobra [facility] 04/08/2020 Z68.24 - Body mass index (BM I) 24.0-24.9, adult Women's Health with Linnea Escobar [facility] 04/08/2020 Depressive disorder Telebehavioral He alth with Emilee Short [facility] 03/29/2020 Generalized anxiety disorder Telebeha vioral Health with Emilee Short [facility] 03/29/2020 Dysthymic disorder Established Patie nt with Bobbi Colon [facility] 10/14/2019 Generalized anxiety disorder Establis hed Patient with Bobbi Colon [facility] 10/14/2019 Z68.24 - Body mass index (BM I) 24.0-24.9 adult Medical Established Patient with Candace Ngoc [facility] 10/14/2019 F34.1 - Dysthymic disorder Establishe d Patient with Bobbi Colon [facility] 09/04/2019 Generalized anxiety disorder Establis hed Patient with Bobbi Colon [facility] 09/04/2019 Body mass index Medical Established Patient with Candace Ngoc [facility] 09/04/2019 Diabetes Risk Test Score was 0 score 09/04/2019 Medical Established Patient with Candace Grossman [facility] 09/04/2019 Body mass index Nurse Visit with Candace Grossman P 08/19/2019 Diabetes Risk Test Score was 0 score 08/19/2019 Nurse Visit with Candace Grossman [facility] 08/19/2019 Generalized anxiety disorder Establis hed Patient with Bobbi Colon [facility] 07/28/2019 Severe recurrent major depre 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 features Established Patient with Bobbi Colon [facility] 07/28/2019 AUDIT alcohol use disorders identification test was six 07/28/2019 Medical New Patient with Candace Grossman [facility] 07/28/2019 Diabetes Risk Test Score was 0 score 07/28/2019 Medical New Patient with Candace Grossman [facility] 07/28/2019 ZAN-7 score was 21 07/28/2019 Medical Ne w Patient with Candace Grossman [facility] 07/28/2019 PHQ-9: total score was 21 07/28/2019 Med ical New Patient with Candace Grossman [facility] 07/28/2019 Z68.22 - Body mass index (BM I) 22.0-22.9 adult Medical New Patient with Candace Grossman [facility] 07/28/2019 Instructions Instructions not supported for this [...] section and content) DATE CREATED AUTHOR 03/26/2018 [facility] DATE CREATED AUTHOR AUTHOR'S ORGANIZ ATION 05/07/2020 [facility] DATE CREATED AUTHOR AUTHOR'S ORGANIZ ATION 02/10/2023 [facility] DATE CREATED AUTHOR AUTHOR'S ORGANIZ ATION 03/28/2023 [facility] DATE CREATED AUTHOR AUTHOR'S ORGANIZ ATION 12/18/2023 [facility] DATE CREATED AUTHOR AUTHOR'S ORGANIZ ATION 01/14/2024 [facility] DATE CREATED AUTHOR AUTHOR'S ORGANIZ ATION 01/27/2024 [facility] DATE CREATED AUTHOR AUTHOR'S ORGANIZ ATION 02/12/2024 [facility] dical Specialists [facility] DATE CREATED AUTHOR AUTHOR'S ORGANIZ ATION 02/14/2024 [facility] DATE CREATED AUTHOR AUTHOR'S ORGANIZ ATION 02/23/2024 [facility] Evaluations & Outcomes (unre cognized section [...] Referred By Kalina ghotra Referred To Contact Diagnoses Malignant melanoma of skin (HCC) Procedures CONSULT TO MATERNAL MEDI OFFICE/OUTPATIENT [facility] 60 MINUTES Fransico Sharp MD [address] [place] [address] Referral ID Status Reason Start Date Expiration Date V isits Requested Visits Authorized [id number] Closed PCP Requested Referral Auto-Generated Referral 01/04/2024 [...] Active NON STAFF Primary Care Provider Active Voip Technician Relationship Specialty Start Date End Date Freddie Delgado APRN-CNP PCP - General Nurse Practitioner 07/30/23 Voip Technician Relationship Specialty Start Date End Date Freddie Delgado APRN-CNP PCP - General Nurse Practitioner 07/30/23 Voip Technician Relationship Specialty Start Date End Date Freddie Delgado APRN-CNP PCP - General Nurse Practitioner 07/30/23 Voip Technician Relationship Specialty Start Date End Date Freddie [facility] PCP - General Nurse Practitioner 07/30/23 Voip Technician Relationship Specialty Start Date End Date DelgadoKelliFreddieABHI[facility] PCP - General Nurse Practitioner 07/30/23 Voip Technician Relationship Specialty Start Date End Date DelgadoFreddie tiwari [facility] PCP - General Nurse Practitioner 07/30/23 Voip Technician Relationship Specialty Start Date End Date DelgadoFreddie tiwari [facility] PCP - General Nurse Practitioner 07/30/23 Voip Technician Relationship Specialty Start Date End Date DelgadoKelliFreddie [address] [place] [address] PCP - General Family Medicine 12/19/23 Voip Technician Relationship Specialty Start Date End Date DelgadoKelli reaFreddie [address] [place] [address] PCP - General Family Medicine 12/19/23 Voip Technician Relationship Specialty Start Date End Date Kelli Delgadondra [address] [place] [address] PCP - General Family Medicine 12/19/23 Voip Technician Relationship Specialty Start Date End Date Freddie Delgado [address] [place] [address] PCP - General Family Medicine 12/19/23 Voip Technician Relationship Specialty Start Date End Date Freddie Delgado [address] [place] [address] PCP - General Family Medicine 12/19/23 Voip Technician Relationship Specialty Start Date End Date Freddie Delgado [address] [place] [address] PCP - General Family Medicine 12/19/23 Voip Technician Relationship Specialty Start Date End Date Freddie Delgado [address] [place] [address] PCP - General Family Medicine 12/19/23 Voip Technician Relationship Specialty Start Date End Date Freddie Delgado [address] [place] [address] PCP - General Family Medicine 12/19/23 Voip Technician Relationship Specialty Start Date End Date Freddie Delgado [address] [place] [address] PCP - General Family Medicine 12/19/23 Voip Technician Relationship Specialty Start Date End Date Freddie Delgado [address] [place] [address] PCP - General Family Medicine 12/19/23 Voip Technician Relationship Specialty Start Date End Date Freddie Delgado [address] [place] [address] PCP - General Family Medicine 12/19/23 Voip Technician Relationship Specialty Start Date End Date Freddie Delgado [address] [place] [address] PCP - General Family Medicine 12/19/23 Goals [...] or prosecute any alcohol or drug abuse patient.[facility] the event this information is protected by the Federal Confidentiality of Alcohol and Drug Abuse Patient Records regulations: The Federal rules restrict any use of the information to criminally investigate or prosecute any alcohol or drug abuse patient.[facility] Hospital[facility] the event this information is protected by the Federal Confidentiality of Alcohol and Drug Abuse Patient Records regulations: The Federal rules restrict any use of the information to criminally investigate or prosecute any alcohol or drug abuse patient.[facility] the event this information is protected by the Federal Confidentiality of Alcohol and Drug Abuse Patient Records regulations: The Federal rules restrict any use of the information to criminally investigate or prosecute any alcohol or drug abuse patient.[facility] Hospital[facility] the event this information is protected by the Federal Confidentiality of Alcohol and Drug Abuse Patient Records regulations: The Federal rules restrict any use of the information to criminally investigate or prosecute any alcohol or drug abuse patient.[facility] HospitalIn the event this information is protected by the Federal Confidentiality of Alcohol and Drug Abuse Patient Records regulations: The Federal rules restrict any use of the information to criminally investigate or prosecute any alcohol or drug abuse patient.[facility] Hospital[facility] the event this information is protected by the Federal Confidentiality of Alcohol and Drug Abuse Patient Records regulations: The Federal rules restrict any use of the information to criminally investigate or prosecute any alcohol or drug abuse patient.[facility] Hospital[facility] the event this information is protected by the Federal Confidentiality of Alcohol and Drug Abuse Patient Records regulations: The Federal rules restrict any use of the information to criminally investigate or prosecute any alcohol or drug abuse patient.[facility] Hospital[facility] the event this information is protected by the Federal Confidentiality of Alcohol and Drug Abuse Patient Records regulations: The Federal rules restrict any use of the information to criminally investigate or prosecute any alcohol or drug abuse patient.[facility] Hospital[facility] the event this information is protected by the Federal Confidentiality of Alcohol and Drug Abuse Patient Records regulations: The Federal rules restrict any use of the information to criminally investigate or prosecute any alcohol or drug abuse patient.[facility] HospitalIn the event this information is protected by the Federal Confidentiality of Alcohol and Drug Abuse Patient Records regulations: The Federal rules restrict any use of the information to criminally investigate or prosecute any alcohol or drug abuse patient.[facility] HospitalIn the event this information is protected by the Federal Confidentiality of Alcohol and Drug Abuse Patient Records regulations: The Federal rules restrict any use of the information to criminally investigate or prosecute any alcohol or drug abuse patient.[facility] FOR RECORDS PERTAINING TO PATIENTS WHO [...] BE BASED ON THE PRIMARY CLINICAL RECORDS. [facility] [facility]. provides no warranty or guarantee of the accuracy or completeness of information in this document.
--- NOTE | 2024-02-26 14:00 | US_ITS ---
[address] [address] Patient Name: CRISTIAN DONALDSON MRN: [id number] date: 1990 Sex: F Assigned Patient Location: [facility] Current Patient Location: [facility] Accession/Order Number: [id number] Exam Date: 02/26/2024 14:01 Report Date: 02/26/2024 14:34 At the request of: DAVIN GREEN Procedure: US OB BPP w non-stress EXAMINATION: US OB BPP w non-stress HISTORY: Excessive growth O36.62x0 COMPARISON: Ultrasound OB biophysical 02/18/2024 TECHNIQUE: Ultrasound biophysical profile was performed in the radiology department. BREATHING MOVEMENTS: 2.0 GROSS BODY MOVEMENTS: 2.0 TONE: 2.0 QUALITATIVE AMNIOTIC FLUID VOLUME: 2.0 PRESENTATION: CEPHALIC HEART RATE: 129.2 bpm bpm. AMNIOTIC FLUID VOLUME: 17.6 cm GESTATIONAL AGE: 34 weeks 5 days CONCLUSION: Total biophysical profile score 8.0. Electronically authenticated by: BOBBI SIMONS Date: 02/26/2024 14:34
[2024-02-26 14:22] VITALS: BP 115/74; PULSE 96
== END 2024-02-26 14:48 | disposition home or self-care (01) ==
LOC: US 07:02 → FBC 13:59
PROVIDERS: Visit Provider Obstetrics & Gynecology
DX: O36.63X0 Maternal care for excessive fetal growth, third trimester, not applicable or unspecified (principal); Z3A.34 34 weeks gestation of pregnancy
CPT/HCPCS: 76818

== ENCOUNTER 2024-02-28 07:07 | Outpatient (OUT) | payer MEDICAID, SELFPAY ==
--- OUTSIDE RECORDS SUMMARY | 2024-02-28 07:10 | XMS_ITS | CCD ---
Author Organization [facility] Care Team Providers Care Network Operations Lead Name Role Phone Gehlot, Upender Unavailable Unavailable Gehlot, Upender Unavailable Unavailable EMPERATRIZ CERNA Unavailable Unavailable Sally Morejon Primary Care Provider [phone] Unavailable Primary Care Provider UnavailCANDACE Dubon Referring Unavailable Sally Morejon Primary Care Provider Sally Morejon CNP Primary Care Provider Shayla Valle Unavailable JUMANA Valle Attending Provider AICHHOLZ, OFFICE MACHINES WIRER VITO Admitting Unavailable AICHHOLZ, OFFICE MACHINES WIRER VITO Attending Unavailable AICHHOLZ, OFFICE MACHINES WIRER VITO Primary Care Unavailable AICHHOLZ, OFFICE MACHINES WIRER VITO Consulting Unavailable NORMA ., DR JIN Admitting Unavailable NORMA ., DR JIN Attending Unavailable AICHHOLZ, OFFICE MACHINES WIRER VITO Primary Care Unavailable NORMA ., DR JIN Consulting Unavailable RONAK, DR BOBBI Bianchi Consulting Unavailable NORMA ., DR JIN Admitting Unavailable NORMA ., DR JIN Attending Unavailable AICHHOLZ, OFFICE MACHINES WIRER VITO Primary Care Unavailable NORMA ., DR JIN Consulting Unavailable ZIEBDEANNE, DR BOBBI Bianchi Consulting Unavailable NORMA ., DR JIN Admitting Unavailable NORMA ., DR JIN Attending Unavailable AICHHOLZ, OFFICE MACHINES WIRER VITO Primary Care Unavailable NORMA ., DR JIN Consulting Unavailable AICHHOLZ, OFFICE MACHINES WIRER VITO Admitting Unavailable AICHHOLZ, OFFICE MACHINES WIRER VITO Attending Unavailable AICHHOLZ, OFFICE MACHINES WIRER VITO Primary Care Unavailable NORMA ., DR JIN Admitting Unavailable NORMA ., DR JIN Attending Unavailable AICHHOLZ, OFFICE MACHINES WIRER VITO Primary Care Unavailable NORMA ., DR JIN Consulting Unavailable NORMA ., DR JIN Admitting Unavailable NORMA ., DR JIN Attending Unavailable AICHHOLZ, OFFICE MACHINES WIRER VITO Primary Care Unavailable NORMA ., DR JIN Consulting Unavailable AGUBOSIMWADE Consulting Unavailable SOFI XIAO Consulting Unavailable NORMA ., DR JIN Admitting Unavailable NORMA ., DR JIN Attending Unavailable AICHHOLZ, OFFICE MACHINES WIRER VITO Primary Care Unavailable NORMA ., DR JIN Consulting Unavailable AICHHOLZ, OFFICE MACHINES WIRER VITO Admitting Unavailable AICHHOLZ, OFFICE MACHINES WIRER VITO Attending Unavailable AICHHOLZ, OFFICE MACHINES WIRER VITO Primary Care Unavailable WEST, DR JO-ANN Nicolas Consulting Unavailable AICHHOLZ, OFFICE MACHINES WIRER VITO Consulting Unavailable Yoel Jarrett Unavailable MD Karan Romero Attending Provider [phone] NON STAFF Primary Care Provider Unavailabl e NON STAFF Primary Care Unavailable Karan Romero Attending Unavailabl Karan Osuna Admitting Unavailabl e Shayla Valle Attending Unavailable Shayla Valle Admitting Unavailable Delgado DIRECTOR OF PRODUCT MARKETING-OFFICE MACHINES WIRER, Freddie Primary Care Provider Unavailable Primary Care Provider Unavailabl e DELGADO, FREDDIE Attending Unavailable DELGADO, FREDDIE Referring Unavailable DELGADO, FREDDIE Primary Care Unavailable ROJAS, FIDENCIO Attending Unavailable DELGADO, FREDDIE Referring Unavailable DELGADO, FREDDIE Primary Care Unavailable Delgado, Freddie Primary Care Provider GURJIT ROBIN Attending Unavailable DELGADO, FREDDIE Referring Unavailable DELGADO, FREDDIE Primary Care Unavailable Delgado, Freddie Primary Care Provider [phone] ROJAS, FIDENCIO Attending Unavailable NORMA, ELIAZAR R Referring Unavailable DELGADO, FREDDIE Primary Care Unavailable ADILENE CESPEDES Attending Unavailable NORMA, ELIAZAR R Referring Unavailable DELGADO, FREDDIE Primary Care Unavailable NORMA, ELIAZAR R Referring Unavailable DELGADO, FREDDIE Primary Care Unavailable NORMA, ELIAZAR Attending Unavailable DIONNE BARNHART Attending Unavailable NORMA, ELIAZAR Attending Unavailable NORMA, ELIAZAR Attending Unavailable DIONNE BARNHART Attending Unavailable NORMA, ELIAZAR Attending Unavailable CANDACE MORAN Admitting Unavailable CANDACE MORAN Attending Unavailable DELGADO, FREDDIE Primary Care Unavailable LOBITOGURJIT Ghotra Referring Unavailable DELGADO, FREDDIE Primary Care Unavailable FIDENCIO ROJAS Referring Unavailable DELGADO, FREDDIE Primary Care Unavailable Delgado OFFICE MACHINES WIRER, Freddie Adrian Primary Care Provid er DELGADO, FREDDIE ADRIAN Primary Care Unavail able FRANSICO SHARP Referring Unavailable ANA PEOPLES Attending Unavailab le DELGADO, FREDDIE ADRIAN Primary Care Unavail able FRANSICO SHARP Attending Unavailable DELGADO, FREDDIE ADRIAN Primary Care Unavail able ABALINARDANIELEK Attending Unavailable DELGADO, FREDDIE ADRIAN Primary Care Unavail able ABHYANKAR, USMAN Referring Unavailable DELGADO, FREDDIE ADRIAN Primary Care Unavail able ABHYANKAR, USMAN Referring Unavailable DELGADO, FREDDIE ADRIAN Primary Care Unavail able ANA PEOPLES Attending Unavailab le Allergies Allergy Classification Reported Allergen(s) Allergy Type Date of Onset Reaction(s) Facility (13 sources) Penicillins (Antibiotic) Allergy to substance 9 [facility] Work Phone: (8 sources) [facility] (6 sources) Penicillin G Drug Allergy 3 [facility] Work Phone: (1 source) Penicillin Drug Allergy [facility] Repository (6 sources) Penicillins; Translations: [PENICILLINS] Drug allergy (disorder) 2 [facility] Repository (20 sources) Penicillins Propensity to adverse reactions to drug 2 Other (See Comments), Unknown [facility] (3 sources) Penicillins Drug Allergy 2 Unknown [facility] Medications Current Medications Medication Drug Class(es) Dates Sig (Normalized) Sig (Original) [id number] 200 actuat albuterol 0.09 mg/actuat metered dose [...] 02-07-2023 Crutches Underarm Crutches January, Active diphenhydrAMINE (12 sources) Histamine-1 Receptor Antagonist Start: 12-10-2023 diphenhydramine [...] CNP magnesium oxide 400 mg oral tablet (17 sources) Start: 11-12-2023 End: 11-11-2024 magnesium oxide (MAG-OX) 400 mg (241.3 mg magnesium) tablet Take 400 mg by mouth. 0 11/12/2023 11/11/2024 Active Comment on above: Take 400 mg by mouth . nystatin 510200 unt/ml oral suspension (1 source) Polyene Antifungal Start: 05-29-2023 take 5 mL by mouth three times daily Nystatin [id number] UNIT/ML 5 ml Mouth/Throat 3 times a [...] 16, 2023 12:00am omeprazole magne sium (ACID BRICKMASON APPRENTICE, OMEPRAZOLE, ORAL) Take by mouth as directed. [...] Active PNV no.95/ferrous fum/folic ac ( ORAL) (13 sources) PNV no.95/ferrou s fum/folic ac ( ORAL) Take by mouth as directed. 0 Active Comment on above: Take by mouth as dir ected. gcuimrvk03-lvgj-jaieo- omega3 29-1-400 mg combo pack,tablet & capDR (9 sources) tmbapuqc11-eufs- folic -omega3 29-1-400 mg combo pack,tablet & cap,DR Take by mouth. 0 Active pyridoxine hydrochloride [...] mg/ml oral solution (4 sources) Phenothiazine, Uncompetitive M-slfpjk-R-aspartat e Receptor Antagonist, Sigma-1 Agonist Start: 01-08-2020 [...] type] Onset: 02-13-2023 02-13-2023 Chronic Esophageal disorders (15 sources) Gastroesophageal reflux disease; Translations: [Gastro-esophageal reflux disease without esophagitis] Onset: 03-19-2023 Chronic Headache; including migraine (10 sources) Chronic cluster headache; Translations: [Chronic cluster headache, not intractable] Onset: 01-21-2024 11-12-2023 Chronic Immunizations and screening for infectious disease (2 [...] 01-14-2024 Episodic Other non-epithelial cancer of skin (9 sources) Malignant neoplasm of skin; Translations: [Unspecified [...] morphological and functional abnormalities of placenta; Translations: [[place] affected by other morphological and functional abnormalities [...] Translations: [Questionnaires Phq-9 Total Score] Onset: 07-28-2019 Hemorrhage during ; abruptio placenta; placenta previa (20 sources) Placenta previa; Translations: [Complete placenta previa NOS or without hemorrhage, second trimester] Onset: 11-20-2023 11-20-2023 Episodic Mood disorders (11 sources) Major depressive disorder, single episode, unspecified; Translations: [Mood disorders] Onset: 03-29-2020 09-10-2023 Other complications of (5 sources) Missed ; Translations: [MISSED ] Onset: 05-22-2022 Episodic Other complications of (1 source) Blighted ovum and nonhydatidiform mole; Translations: [BLIGHTED OVUM NONHYDATIDIFORM MOLE] Onset: 05-29-2022 Episodic Other complications of (11 sources) Elderly primigravida; Translations: [Supervision of elderly [...] Test Name Value Interpretation Reference Range Facility [facility]Y MC[facility]ON ([id number]) 1990 F Date Time Provider Department 02/26/24 DAISY MURRAY During your visit today, we recorded the following information about you: Daisy Murray RN 02/26/2024 12:23 PM Signed Pt calling for CT results. She is aware Dr Deshpande is out of office this week and will be in touch with his response Sunday. Louisa: Please advise BRITNEY Hernandez Debbie, HUC 02/26/2024 12:45 PM Signed Patient calling. Doesn't know how to proceed. States her oncologist is out of town and no one can read the results. States she is 35 weeks . Please call patient back to discuss. Usman Goldberg MD 02/26/2024 2:58 PM Signed She texted me - CT's look good. Will need a chest ct later. Allergies As of Date: 02/26/2024 Noted Allergy Reaction PENICILLINS 04/05/2022 16 - Unknown Comments: unknown Other Reaction(s): Unknown Reaction Date Reviewed: 01/21/2024 Reviewed by: Reji Manning RN - Fully Assessed Reason for Visit: Results - Ct [3560] Patient Update [1234] Prescriptions as of 02/26/2024 - diphenhydramine HCl (UNISOM, DIPHENHYDRAMINE, ORAL) - [...] mg by mouth. - omeprazole magnesium (ACID BRICKMASON APPRENTICE, OMEPRAZOLE, ORAL) Take by mouth as directed. - PNV no.95/ferrous fum/folic ac ( ORAL) Take by mouth as directed. Problem List As Of Date 02/26/2024 Noted Resolved AMA (advanced maternal age) primigravida 35+, u*10/08/2023 Bipolar disorder (HCC) [F31.9] 01/21/2024 Chronic cluster headache [G44.029] 01/21/2024 GERD (gastroesophageal reflux disease) [K21.9] 01/21/2024 Mild intermittent asthma without complication [*02/13/2023 Placenta previa antepartum in second trimester *11/20/2023 Skin cancer [C44.90] 01/21/2024 Encounter Status:Closed by SYLVIA ALCALA on 02/26/[address] [facility] [address] CHEST W IVCONon 4 CT CHEST W IVCON * * *Final Report* * * DATE OF EXAM: Feb 22 2024 11:19AM [facility] 0539 - CT CHEST W IVCON / [...] abdomen: Visualized upper abdomen is grossly unremarkable. Copy Center Operator (topogram) images: Unremarkable. IMPRESSION: Focal groundglass opacity [...] any questions regarding this interpretation, please call [phone]. If you are unable to reach us at the number above, please feel free to contact [facility] at [phone]. [id number] N Normal [facility] CT NECK SOFT TISSUE W IVCONo n 02-22-2024 CT NECK SOFT TISSUE W IVCON * * *Final Report* * * DATE OF EXAM: Feb 22 2024 11:19AM [facility] 0013 - CT NECK SOFT TISSUE W [...] amalgam. Parotid and submandibular spaces are normal. Family Practice Doctor spaces appear normal. Infrahyoid Neck: Hypopharynx, larynx, [...] any questions regarding this interpretation, please call [phone]. If you are unable to reach us at the number above, please feel free to contact [facility] at [phone]. [id number] N Normal [facility] CBC W Auto Differential pane l (Bld)on 02-20-2024 Basophils (Bld) [#/Vol] 0.03 10*3/uL Normal <0.11 [facility] Comment on above: Order Comment: Speci men Type: BLOOD SPECIMENOrdering Facility: [facility] Address: [address] [place] [address] Performed By: #### 5 7021-8 ####[facility] [id number] [place] [address] Basophils/100 WBC (Bld) 0.3 % Normal [facility] Comment on above: Order Comment: Speci men Type: BLOOD SPECIMENOrdering Facility: [facility] Address: [address] [place] [address] Performed By: #### 5 7021-8 ####[facility] [id number] [place] [address] Differential cell count method Nom (Bld) Auto Normal [facility] Comment on above: Order Comment: Speci men Type: BLOOD SPECIMENOrdering Facility: [facility] Address: [address] [place] [address] Performed By: #### 5 7021-8 ####[facility] [id number] [place] [address] Eosinophils (Bld) [#/Vol] 0.08 10*3/uL Normal <0.46 [facility] Comment on above: Order Comment: Speci men Type: BLOOD SPECIMENOrdering Facility: [facility] Address: [address] [place] [address] Performed By: #### 5 7021-8 ####[facility] [id number] [place] [address] Eosinophils/100 WBC (Bld) 0.8 % Normal [facility] Comment on above: Order Comment: Speci men Type: BLOOD SPECIMENOrdering Facility: [facility] Address: [address] [place] [address] Performed By: #### 5 7021-8 ####[facility] [id number] [place] [address] Erythrocyte distribution width (RBC) [Ratio] 13.5 % Normal 11.5-15.0 [facility] Comment on above: Order Comment: Speci men Type: BLOOD SPECIMENOrdering Facility: [facility] Address: [address] [place] [address] Performed By: #### 5 7021-8 ####[facility] [id number] [place] [address] Hematocrit (Bld) [Volume fraction] 33.4 % Low 36.0-46.0 [facility] Comment on above: Order Comment: Speci men Type: BLOOD SPECIMENOrdering Facility: [facility] Address: [address] [place] [address] Performed By: #### 5 7021-8 ####[facility] [id number] [place] [address] Hemoglobin (Bld) [Mass/Vol] 11.2 g/dL Low 11.5-15.5 [facility] Comment on above: Order Comment: Speci men Type: BLOOD SPECIMENOrdering Facility: [facility] Address: [address] [place] [address] Performed By: #### 5 7021-8 ####[facility] [id number] [place] [address] Immature granulocytes (Bld) [#/Vol] 0.07 10*3/uL Normal <0.10 [facility] Comment on above: Order Comment: Speci men Type: BLOOD SPECIMENOrdering Facility: [facility] Address: [address] [place] [address] Performed By: #### 5 7021-8 ####[facility] [id number] [place] [address] Immature granulocytes/100 WBC (Bld) 0.7 % Normal [facility] Comment on above: Order Comment: Speci men Type: BLOOD SPECIMENOrdering Facility: [facility] Address: [address] [place] [address] Performed By: #### 5 7021-8 ####[facility] [id number] [place] [address] Lymphocytes (Bld) [#/Vol] 1.13 10*3/uL Normal 1.00-4.00 [facility] Comment on above: Order Comment: Speci men Type: BLOOD SPECIMENOrdering Facility: [facility] Address: [address] [place] [address] Performed By: #### 5 7021-8 ####[facility] [id number] [place] [address] Lymphocytes/100 WBC (Bld) 10.7 % Normal [facility] Comment on above: Order Comment: Speci men Type: BLOOD SPECIMENOrdering Facility: [facility] Address: [address] [place] [address] Performed By: #### 5 7021-8 ####[facility] [id number] [place] [address] MCH (RBC) [Entitic mass] 29.5 pg Normal 26.0-34.0 [facility] Comment on above: Order Comment: Speci men Type: BLOOD SPECIMENOrdering Facility: [facility] Address: [address] [place] [address] Performed By: #### 5 7021-8 ####[facility] [id number] [place] [address] MCHC (RBC) [Mass/Vol] 33.5 g/dL Normal 30.5-36.0 [facility] Comment on above: Order Comment: Speci men Type: BLOOD SPECIMENOrdering Facility: [facility] Address: [address] [place] [address] Performed By: #### 5 7021-8 ####[facility] [id number] [place] [address] MCV (RBC) [Entitic vol] 87.9 fL Normal 80.0-100.0 [facility] Comment on above: Order Comment: Speci men Type: BLOOD SPECIMENOrdering Facility: [facility] Address: [address] [place] [address] Performed By: #### 5 7021-8 ####[facility] [id number] [place] [address] Monocytes (Bld) [#/Vol] 0.52 10*3/uL Normal <0.87 [facility] Comment on above: Order Comment: Speci men Type: BLOOD SPECIMENOrdering Facility: [facility] Address: [address] [place] [address] Performed By: #### 5 7021-8 ####[facility] [id number] [place] [address] Monocytes/100 WBC (Bld) 4.9 % Normal [facility] Comment on above: Order Comment: Speci men Type: BLOOD SPECIMENOrdering Facility: [facility] Address: [address] [place] [address] Performed By: #### 5 7021-8 ####[facility] [id number] [place] [address] Neutrophils (Bld) [#/Vol] 8.76 10*3/uL High 1.45-7.50 [facility] Comment on above: Order Comment: Speci men Type: BLOOD SPECIMENOrdering Facility: [facility] Address: [address] [place] [address] Performed By: #### 5 7021-8 ####[facility] [id number] [place] [address] Neutrophils/100 WBC (Bld) 82.6 % Normal [facility] Comment on above: Order Comment: Speci men Type: BLOOD SPECIMENOrdering Facility: [facility] Address: [address] [place] [address] Performed By: #### 5 7021-8 ####[facility] [id number] [place] [address] Nucleated RBC (Bld) [#/Vol] 10*3/uL Normal <0.01 [facility] Comment on above: Order Comment: Speci men Type: BLOOD SPECIMENOrdering Facility: [facility] Address: [address] [place] [address] Performed By: #### 5 7021-8 ####[facility] [id number] [place] [address] Nucleated RBC/100 WBC (Bld) [Ratio] 0.0 /100 WBC Normal [facility] Comment on above: Order Comment: Speci men Type: BLOOD SPECIMENOrdering Facility: [facility] Address: [address] [place] [address] Performed By: #### 5 7021-8 ####[facility] [id number] [place] [address] Platelet mean volume (Bld) [Entitic vol] 10.0 fL Normal 9.0-12.7 [facility] Comment on above: Order Comment: Speci men Type: BLOOD SPECIMENOrdering Facility: [facility] Address: [address] [place] [address] Performed By: #### 5 7021-8 ####[facility] [id number] [place] [address] Platelets (Bld) [#/Vol] 199 10*3/uL Normal 150-400 [facility] Comment on above: Order Comment: Speci men Type: BLOOD SPECIMENOrdering Facility: [facility] Address: [address] [place] [address] Performed By: #### 5 7021-8 ####[facility] [id number] [place] [address] RBC (Bld) [#/Vol] 3.80 10*6/uL Low 3.90-5.20 [facility] Comment on above: Order Comment: Speci men Type: BLOOD SPECIMENOrdering Facility: [facility] Address: [address] [place] [address] Performed By: #### 5 7021-8 ####[facility] [id number] [place] [address] WBC (Bld) [#/Vol] 10.59 10*3/uL Normal 3.70-11.00 [facility] Comment on above: Order Comment: Speci men Type: BLOOD SPECIMENOrdering Facility: [facility] Address: [address] [place] [address] Performed By: #### 5 7021-8 ####[facility] [id number] [place] [address] Comprehensive metabolic 2000 panelon 02-20-2024 Albumin [Mass/Vol] 3.8 g/dL Low 3.9-4.9 [facility] Comment on above: Order Comment: Speci men Type: BLOOD SPECIMENOrdering Facility: [facility] Address: [address] [place] [address] Performed By: #### 2 4323-8, 2532-0 ####[facility] [id number] [place] [address] ALP [Catalytic activity/Vol] 161 U/L High 34-123 [facility] Comment on above: Order Comment: Speci men Type: BLOOD SPECIMENOrdering Facility: [facility] Address: [address] [place] [address] Performed By: #### 2 4323-8, 2532-0 ####[facility] [id number] [place] [address] ALT [Catalytic activity/Vol] 13 U/L Normal 7-38 [facility] Comment on above: Order Comment: Speci men Type: BLOOD SPECIMENOrdering Facility: [facility] Address: [address] [place] [address] Performed By: #### 2 4323-8, 2532-0 ####[facility] [id number] [place] [address] Anion gap [Moles/Vol] 10 mmol/L Normal 9-18 [facility] Comment on above: Order Comment: Speci men Type: BLOOD SPECIMENOrdering Facility: [facility] Address: [address] [place] [address] Performed By: #### 2 4323-8, 2531-0 ####[facility] [id number] [place] [address] AST [Catalytic activity/Vol] 21 U/L Normal 13-35 [facility] Comment on above: Order Comment: Speci men Type: BLOOD SPECIMENOrdering Facility: [facility] Address: [address] [place] [address] Performed By: #### 2 4323-8, 2531-0 ####[facility] [id number] [place] [address] Bilirubin [Mass/Vol] 0.2 mg/dL Normal 0.2-1.3 [facility] Comment on above: Order Comment: Speci men Type: BLOOD SPECIMENOrdering Facility: [facility] Address: [address] [place] [address] Performed By: #### 2 4323-8, 2531-0 ####[facility] [id number] [place] [address] Calcium [Mass/Vol] 10.1 mg/dL Normal 8.5-10.2 [facility] Comment on above: Order Comment: Speci men Type: BLOOD SPECIMENOrdering Facility: [facility] Address: [address] [place] [address] Performed By: #### 2 4323-8, 2531-0 ####[facility] [id number] [place] [address] Chloride [Moles/Vol] 103 mmol/L Normal 97-105 [facility] Comment on above: Order Comment: Speci men Type: BLOOD SPECIMENOrdering Facility: [facility] Address: [address] [place], [place] [address] Performed By: #### 2 4323-8, 2531-0 ####[facility] [id number] [place] [address] CO2 [Moles/Vol] 21 mmol/L Low 22-30 [facility] Comment on above: Order Comment: Speci men Type: BLOOD SPECIMENOrdering Facility: [facility] Address: [address] [place] [address] Performed By: #### 2 4323-8, 2531-0 ####[facility] [id number] [place] [address] Creatinine [Mass/Vol] 0.61 mg/dL Normal 0.58-0.96 [facility] Comment on above: Order Comment: Speci men Type: BLOOD SPECIMENOrdering Facility: [facility] Address: [address] [place] [address] Performed By: #### 2 4323-8, 2531-0 ####[facility] [id number] [place] [address] Creatinine and Glomerular filtration rate.predicted panel (S/P/Bld) 120 mL/min/1.73m??? Normal >=60 [facility] Comment on above: Order Comment: Speci men Type: BLOOD SPECIMENOrdering Facility: [facility] Address: [address] [place] [address] Result Comment: Araseli mated Glomerular Filtration Rate [...] GFR. Performed By: #### 2 4323-8, 2531-0 ####[facility] LABCLIA [id number] [place] [address] Glucose [Mass/Vol] 85 mg/dL Normal 74-99 [facility] [place] Comment on above: Order Comment: Speci men Type: BLOOD SPECIMENOrdering Facility: [facility] Address: [address] [place], [place] [address] Result Comment: The [place] Diabetes Association (ADA) provides guidance for cutoff [...] Standards of Medical Care in Diabetes 2016, [place] [employer]. Diabetes Care. 2016.39(Suppl 1). Performed By: #### 2 4323-8, ####[facility] [id number] [place] [address] Potassium [Moles/Vol] 3.9 mmol/L Normal 3.7-5.1 [facility] Comment on above: Order Comment: Speci men Type: BLOOD SPECIMENOrdering Facility: [facility] Address: [address] [place] [address] Performed By: #### 2 4323-8, ####[facility] [id number] [place] [address] Protein [Mass/Vol] 7.2 g/dL Normal 6.3-8.0 [facility] [place] Comment on above: Order Comment: Speci men Type: BLOOD SPECIMENOrdering Facility: [facility] Address: [address] [place], [place] [address] Performed By: #### 2 4323-8, 0 ####[facility] [id number] [place] [address] Sodium [Moles/Vol] 134 mmol/L Low 136-144 [facility] [place] Comment on above: Order Comment: Speci men Type: BLOOD SPECIMENOrdering Facility: [facility] Address: [address] [place] [address] Performed By: #### 2 4323-8, 2531-0 ####[facility] [id number] [place] [address] Urea nitrogen [Mass/Vol] 6 mg/dL Low 7-21 [facility] Comment on above: Order Comment: Speci men Type: BLOOD SPECIMENOrdering Facility: [facility] Address: [address] [place] [address] Performed By: #### 2 4323-8, 2531-0 ####[facility] [id number] [place] [address] LDH SerPl-cCncon 02-20-2024 LDH [Catalytic activity/Vol] 210 U/L Normal 135-214 [facility] Comment on above: Order Comment: Speci men Type: BLOOD SPECIMENOrdering Facility: [facility] Address: [address] [place] [address] Performed By: #### 2 4323-8, 2531-0 ####[facility] [id number] [place] [address] COMPLETE BLOOD COUNTon 01-28 Erythrocyte distribution width (RBC) [Ratio] 13.6 % Normal 11.5-15.0 [facility] Comment on above: Performed By: #### C BC, CMP, 2532-0, 308-1 #### [facility] ([id number]) [address] [place] [address] Hematocrit (Bld) [Volume fraction] 29.4 % Low 35-47 [facility] Comment on above: Performed By: #### C BC, CMP, 2532-0, 3084-1 #### [facility] ([id number]) [address] [place] [address] Hemoglobin (Bld) [Mass/Vol] 10.4 g/dL Low 11.7-15.5 [facility] Comment on above: Performed By: #### Adri MESSER CMP, 2532-0, 3083- #### [facility] ([id number]) [address] [place] [address] MCH (RBC) [Entitic mass] 31.0 pg Normal 27-34 [facility] Comment on above: Performed By: #### Adri MESSER CMP, 2531-0, 3083-10 #### [facility] ([id number]) [address] [place] [address] MCHC (RBC) [Mass/Vol] 35.3 g/dL Normal 32-36 [facility] Comment on above: Performed By: #### Adri MESSER CMP, 0, 3083-10 #### [facility] ([id number]) [address] [place] [address] MCV (RBC) [Entitic vol] 88 fL Normal 80-100 [facility] Comment on above: Performed By: #### Adri MESSRE CMP, 0, 3083-10 #### [facility] ([id number]) [address] [place] [address] Platelet mean volume (Bld) [Entitic vol] 8.1 fL Normal 7-12 [facility] Comment on above: Performed By: #### Adri MESSER CMP, 2531-0, 3083-10 #### [facility] ([id number]) [address] [place] [address] Platelets (Bld) [#/Vol] 205 10*3/uL Normal 150-450 [facility] Comment on above: Performed By: #### Adri MESSER CMP, 2531-0, 3083- #### [facility] ([id number]) [address] [place] [address] 90[address] RBC COUNT 3.34 X10E12/L Low 3.80-5.20 [facility] Comment on above: Performed By: #### C BC, CMP, 2532-0, 3084-1 #### [facility] ([id number]) [address] [place] [address]13 WBC (Bld) [#/Vol] 8.2 10*3/uL Normal 4.0-11.0 [facility] Comment on above: Performed By: #### C BC, CMP, 2532-0, 3084-1 #### [facility] ([id number]) [address] [place] [address] COMPREHENSIVE METABOLIC PANE Joel 01-29-2024 Albumin [Mass/Vol] 2.8 g/dL Low 3.2-5.3 [facility] Comment on above: Performed By: #### C BC, CMP, 2532-0, 3084-1 #### [facility] ([id number]) [address] [place] [address] ALP [Catalytic activity/Vol] 103 U/L Normal 39-130 [facility] Comment on above: Performed By: #### Adri BC, CMP, 2532-0, 3084-1 #### [facility] ([id number]) [address] [place] [address] ALT [Catalytic activity/Vol] 16 U/L Normal 0-31 [facility] Comment on above: Performed By: #### C BC, CMP, 2532-0, 3084-1 #### [facility] ([id number]) [address] [place] [address] Anion gap [Moles/Vol] 9 mmol/L Normal 5-15 [facility] Comment on above: Performed By: #### Adri BC, CMP, 2532-0, 3084-1 #### [facility] ([id number]) [address] [place] [address]5717 AST [Catalytic activity/Vol] 18 U/L Normal 0-41 [facility] Comment on above: Performed By: #### C BC, CMP, 2532-0, 3083- #### [facility] ([id number]) [address] [place] [address] 25422 Bilirubin [Mass/Vol] 0.3 mg/dL Normal 0.3-1.2 [facility] Comment on above: Performed By: #### Adri MESSER, CMP, 2531-0, 3083-10 #### [facility] ([id number]) [address] [place] [address] 12713 Calcium [Mass/Vol] 9.2 mg/dL Normal 8.5-10.5 [facility] Comment on above: Performed By: #### Adri MESSER, CMP, 2531-0, 3083-10 #### [facility] ([id number]) [address] [place] [address] 19527 Chloride [Moles/Vol] 105 mmol/L Normal 98-109 [facility] Comment on above: Performed By: #### Adri MESSER, CMP, 0, 3083-10 #### [facility] ([id number]) [address] [place] [address] 84445 CO2 [Moles/Vol] 22 mmol/L Normal 22-32 [facility] Comment on above: Performed By: #### C BC, CMP, 2532-0, 3083-10 #### [facility] ([id number]) [address] [place] [address]97 Creatinine [Mass/Vol] 0.51 mg/dL Normal 0.40-1.00 [facility] Comment on above: Result Comment: METH OD TRACEABLE TO IDMS STANDARD Performed By: #### C BC, CMP, 2532-0, 3083-10 #### [facility] ([id number]) [address] [place] [address] 68012 eGFR (CKD-EPI) NON-RACE DEPENDENT >90 Normal >59 [facility] Comment on above: Result Comment: Reported eGFR is based on the CKD-EPI 2020 equation that does not use a race coefficient. Performed By: #### Adri MESSER CMP, 0, 3083-10 #### [facility] ([id number]) [address] [place] [address] 18861 Glucose [Mass/Vol] 96 mg/dL Normal 65-99 [facility] Comment on above: Performed By: #### Adri MESSER CMP, , 3083-10 #### [facility] ([id number]) [address] [place] [address]8585 Potassium [Moles/Vol] 4.1 mmol/L Normal 3.5-5.0 [facility] Comment on above: Performed By: #### Adri MESSER CMP, , 3083-10 #### [facility] ([id number]) [address] [place] [address] 42505 Protein [Mass/Vol] 6.5 g/dL Normal 6.0-8.0 [facility] Comment on above: Performed By: #### Adri MESSER CMP, , 3083-10 #### [facility] ([id number]) [address] [place] [address] 99554 Sodium [Moles/Vol] 136 mmol/L Normal 134-146 [facility] Comment on above: Performed By: #### Adri MESSER CMP, 0, 3083-10 #### [facility] ([id number]) [address] [place] [address] 82200 Urea nitrogen [Mass/Vol] 5 mg/dL Normal 5-23 [facility] Comment on above: Performed By: #### C GUI, CMP, 2531-0, 3083-10 #### [facility] ([id number]) [address] [place] [address] 6[address] LDH [Catalytic activity/Vol] on 01-29-2024 LDH 128 U/L Normal 100-235 [facility] Comment on above: Performed By: #### C GUI, CMP, 0, 3083-10 #### [facility] ([id number]) [address] [place] [address] 14617 PROTEIN CREAT RATIOon 2023 RANDOM URINE PROTEIN 30 mg/L Normal <120 [facility] Comment on above: Performed By: #### U PCR #### [facility] ([id number]) [address] [place] [address] 71965 U/PRO/CHIEF GROWTH OFFICER RATIO CALC 0.12 Normal <0.2 [facility] Comment on above: Result Comment: Neph rotic Syndrome is associated with ratios >3.5 Performed By: #### U PCR #### [facility] ([id number]) [address] [place] [address] 14740 URINE CREATININE,RDM 25.84 mg/dL Normal [facility] Comment on above: Performed By: #### U PCR #### [facility] ([id number]) [address] [place] [address] 61730 URIC ACIDon 01-29-2024 Urate [Mass/Vol] 4.1 mg/dL Normal 2.6-7.2 [facility] Comment on above: Performed By: #### C GUI, CMP, 0, 3083-10 #### [facility] ([id number]) [address] [place] [address] 82451 CNPNon 01-25-2024 CNPN Telephone (PLASMN) VY MCKEON ([id number]) 1990 F Date Time Provider Department 01/25/24 FRANSICO SHARP During your visit today, we recorded the following information about you: Cynthia Petty Yu 01/25/2024 1:48 PM Signed Pt is not [...] mg by mouth. - omeprazole magnesium (ACID BRICKMASON APPRENTICE, OMEPRAZOLE, ORAL) Take by mouth as directed. [...] Skin cancer [C44.90] 01/21/2024 Encounter Status:Closed by ANDRESTONI CYNTHIA YU [facility] (HEMASA) MIKETONNYVY ([id number]) 1990 F Date Time Provider Department 01/22/24 [...] that sound right? (February 19) Thanks, louisa. Daisy Murray, BRITNEY 01/24/2024 9:20 AM Signed Is [...] as far as I am concerned. Ana Bailit, MD Louisa: Can we go ahead and [...] [C43.9] Order(s):CT NECK SOFT TISSUE W IVCON [3430904] Order #: [id number] FUTURE [] iv contrast (will be provided [...] 1 EachRfl: 0 CT CHEST W IVCON [2235978] Order #: [id number] FUTURE [] iv contrast (will be provided [...] EachRfl: 0 LACTATE DEHYDROGENASE [SQLD6] Order #: [id number] FUTURE COMPLETE BLOOD COUNT AND DIFFERENTIAL [SQCBCDIF] Order #: [id number] FUTURE COMPREHENSIVE METABOLIC PANEL [SQCMP] Order #: [id number] FUTURE Prescriptions as of 01/30/2024 - diphenhydramine [...] mg by mouth. - omeprazole magnesium (ACID BRICKMASON APPRENTICE, OMEPRAZOLE, ORAL) Take by mouth as directed. [...] In Off (more content not included)... Normal [facility] Telephone (OQE191) VY MCKEON ([id number]) 1990 F Date Time Provider Department 01/22/24 ANA PEOPLES [id number] During your visit today, we recorded the following information about you: Ana Peoples MD 01/22/2024 3:44 PM Signed 01/22/[address] [facility] Pt called and identified ~ 12:30 [...] mg by mouth. - omeprazole magnesium (ACID BRICKMASON APPRENTICE, OMEPRAZOLE, ORAL) Take by mouth as directed. [...] Status:Closed by ANA PEOPLES on 01/22/24 Normal [facility] Examination level ultrasound on 01-21-2024 Indication [...] 9 oz EFW by: Hadlock (HC-AC-FL) Extended Bridge Gang Worker 3.1 mm CM 7.6 mm 70% Nicolaides [...] normal LVOT view: normal 3-vessel view: normal 4-louswy-dabhsok view: normal Heart / Thorax Situs: situs [...] Read By: Ana Peoples MD MATERNAL MEDICINE [facility] Radiology Study observation (narrative) [facility] 01-18-2024 CNPN Telephone (OBGYF2) VY MCKEON ([id number]) 1990 F Date Time Provider Department 01/18/24 [...] mg by mouth. - omeprazole magnesium (ACID BRICKMASON APPRENTICE, OMEPRAZOLE, ORAL) Take by mouth as directed. - PNV no.95/ferrous fum/folic ac ( ORAL) Take by mouth as directed. Problem List As Of Date: 01/18/2024 (None) Encounter Status:Closed by JOSE L CROWLEY on 01/18/24 [facility]Y [facility] ([id number]) 1990 F Date Time Provider Department 01/10/24 HISTORICAL OBGYF2 During your visit today, we recorded the following information about you: Rolo Parada 01/10/2024 9:19 AM Signed [facility] msg was sent to patient asking for [...] mg by mouth. - omeprazole magnesium (ACID BRICKMASON APPRENTICE, OMEPRAZOLE, ORAL) Take by mouth as directed. - PNV no.95/ferrous fum/folic ac ( ORAL) Take by mouth as directed. Problem List As Of Date: 01/10/2024 (None) Encounter Status:Closed by ROLO PARADA on 01/10/24 Normal [facility] CNPNon 01-09-2024 CNPN Telephone (PLASMN) VY MCKEON ([id number]) 1990 F Date Time Provider Department 01/09/24 FRANSICO SHARP During your visit today, we recorded the following information about you: Fernanda Michael 01/09/2024 9:55 AM Signed Patient called that she is seeing Maternal Med, in her area and was questioning does she need to see one at the [facility]? She is asking for a call.. she is very nervous Surjit Griggs, RN 01/09/2024 12:42 PM Signed Reached out to patient. Instructions provided to see a maternal medicine specialist within the [facility] per Dr. Sharp. This nurse [...] mg by mouth. - omeprazole magnesium (ACID BRICKMASON APPRENTICE, OMEPRAZOLE, ORAL) Take by mouth as directed. - PNV no.95/ferrous fum/folic ac ( ORAL) Take by mouth as directed. Problem List As Of Date: 01/09/2024 (None) Encounter Status:Closed by FERNANDA MICHAEL on 01/09/24 [facility] CNOVSPon 01-04-2024 CNOVSP Visit (SP) Office (PLASCA) VY MCKEON ([id number]) 1990 F Date Time Provider Department 01/04/24 2:15 PM FRANSICO SHARP During your visit today, we recorded the following information about you: Temperature Pulse Respiration Blood pressure 97.1 degrees 94/minute 20/minute 148/83 Fransico Sharp MD 01/06/2024 9:42 AM Signed DATE: January 03, 2024 CC: New Melanoma Patient Referring Physician: Margarita Kim MD at [facility] in [place] HPI: Vy Mckeon is a 33 year [...] 400 mg by mouth. omeprazole magnesium (ACID BRICKMASON APPRENTICE, OMEPRAZOLE, ORAL) Take by mouth as directed. 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 The lesion measures 1 cm in diameter. Photos taken, see [facility] Get Images LABS: Pathology Report [...] taken and uploaded to chart today via JOOR - Pathology re-read to be obtained - Surgical plan is for resection of left upper lip melano (more content not included)... Normal [facility] CBC W Auto Differential pane l (Bld)on 12-26-2023 Basophils (Bld) [#/Vol] 0.03 10*3/uL Normal <0.11 [facility] Comment on above: Order Comment: Speci men Type: BLOOD SPECIMENOrdering Facility: [facility] Address: [address] [place] [address] Performed By: #### 5 7021-8 ####[facility] [id number] [place] [address] Basophils/100 WBC (Bld) 0.3 % Normal [facility] Comment on above: Order Comment: Speci men Type: BLOOD SPECIMENOrdering Facility: [facility] Address: [address] [place] [address] Performed By: #### 5 7021-8 ####[facility] [id number] [place] [address] Differential cell count method Nom (Bld) Auto Normal [facility] Comment on above: Order Comment: Speci men Type: BLOOD SPECIMENOrdering Facility: [facility] Address: [address] [place] [address] Performed By: #### 5 7021-8 ####[facility] [id number] [place] [address] Eosinophils (Bld) [#/Vol] 0.15 10*3/uL Normal <0.46 [facility] Comment on above: Order Comment: Speci men Type: BLOOD SPECIMENOrdering Facility: [facility] Address: [address] [place] [address] Performed By: #### 5 7021-8 ####[facility] [id number] [place] [address] Eosinophils/100 WBC (Bld) 1.5 % Normal [facility] Comment on above: Order Comment: Speci men Type: BLOOD SPECIMENOrdering Facility: [facility] Address: [address] [place] [address] Performed By: #### 5 7021-8 ####[facility] [id number] [place] [address] Erythrocyte distribution width (RBC) [Ratio] 13.5 % Normal 11.5-15.0 [facility] Comment on above: Order Comment: Speci men Type: BLOOD SPECIMENOrdering Facility: [facility] Address: [address] [place] [address] Performed By: #### 5 7021-8 ####[facility] [id number] [place] [address] Hematocrit (Bld) [Volume fraction] 35.5 % Low 36.0-46.0 [facility] Comment on above: Order Comment: Speci men Type: BLOOD SPECIMENOrdering Facility: [facility] Address: [address] [place] [address] Performed By: #### 5 7021-8 ####[facility] [id number] [place] [address] Hemoglobin (Bld) [Mass/Vol] 12.0 g/dL Normal 11.5-15.5 [facility] Comment on above: Order Comment: Speci men Type: BLOOD SPECIMENOrdering Facility: [facility] Address: [address] [place] [address] Performed By: #### 5 7021-8 ####[facility] [id number] [place] [address] Immature granulocytes (Bld) [#/Vol] 0.06 10*3/uL Normal <0.10 [facility] Comment on above: Order Comment: Speci men Type: BLOOD SPECIMENOrdering Facility: [facility] Address: [address] [place] [address] Performed By: #### 5 7021-8 ####[facility] [id number] [place] [address] Immature granulocytes/100 WBC (Bld) 0.6 % Normal [facility] Comment on above: Order Comment: Speci men Type: BLOOD SPECIMENOrdering Facility: [facility] Address: [address] [place] [address] Performed By: #### 5 7021-8 ####[facility] [id number] [place] [address] Lymphocytes (Bld) [#/Vol] 1.46 10*3/uL Normal 1.00-4.00 [facility] Comment on above: Order Comment: Speci men Type: BLOOD SPECIMENOrdering Facility: [facility] Address: [address] [place] [address] Performed By: #### 5 7021-8 ####[facility] [id number] [place] [address] Lymphocytes/100 WBC (Bld) 15.0 % Normal [facility] Comment on above: Order Comment: Speci men Type: BLOOD SPECIMENOrdering Facility: [facility] Address: [address] [place] [address] Performed By: #### 5 7021-8 ####[facility] [id number] [place] [address] MCH (RBC) [Entitic mass] 30.1 pg Normal 26.0-34.0 [facility] Comment on above: Order Comment: Speci men Type: BLOOD SPECIMENOrdering Facility: [facility] Address: [address] [place] [address] Performed By: #### 5 7021-8 ####[facility] [id number] [place] [address] MCHC (RBC) [Mass/Vol] 33.8 g/dL Normal 30.5-36.0 [facility] Comment on above: Order Comment: Speci men Type: BLOOD SPECIMENOrdering Facility: [facility] Address: [address] [place] [address] Performed By: #### 5 7021-8 ####[facility] [id number] [place] [address] MCV (RBC) [Entitic vol] 89.0 fL Normal 80.0-100.0 [facility] Comment on above: Order Comment: Speci men Type: BLOOD SPECIMENOrdering Facility: [facility] Address: [address] [place] [address] Performed By: #### 5 7021-8 ####[facility] [id number] [place] [address] Monocytes (Bld) [#/Vol] 0.50 10*3/uL Normal <0.87 [facility] Comment on above: Order Comment: Speci men Type: BLOOD SPECIMENOrdering Facility: [facility] Address: [address] [place] [address] Performed By: #### 5 7021-8 ####[facility] [id number] [place] [address] Monocytes/100 WBC (Bld) 5.1 % Normal [facility] Comment on above: Order Comment: Speci men Type: BLOOD SPECIMENOrdering Facility: [facility] Address: [address] [place] [address] Performed By: #### 5 7021-8 ####[facility] [id number] [place] [address] Neutrophils (Bld) [#/Vol] 7.52 10*3/uL High 1.45-7.50 [facility] Comment on above: Order Comment: Speci men Type: BLOOD SPECIMENOrdering Facility: [facility] Address: [address] [place] [address] Performed By: #### 5 7021-8 ####[facility] [id number] [place] [address] Neutrophils/100 WBC (Bld) 77.5 % Normal [facility] Comment on above: Order Comment: Speci men Type: BLOOD SPECIMENOrdering Facility: [facility] Address: [address] [place] [address] Performed By: #### 5 7021-8 ####[facility] [id number] [place] [address] Nucleated RBC (Bld) [#/Vol] 10*3/uL Normal <0.01 [facility] Comment on above: Order Comment: Speci men Type: BLOOD SPECIMENOrdering Facility: [facility] Address: [address] [place] [address] Performed By: #### 5 7021-8 ####[facility] [id number] [place] [address] Nucleated RBC/100 WBC (Bld) [Ratio] 0.0 /100 WBC Normal [facility] Comment on above: Order Comment: Speci men Type: BLOOD SPECIMENOrdering Facility: [facility] Address: [address] [place] [address] Performed By: #### 5 7021-8 ####[facility] [id number] [place] [address] Platelet mean volume (Bld) [Entitic vol] 10.1 fL Normal 9.0-12.7 [facility] Comment on above: Order Comment: Speci men Type: BLOOD SPECIMENOrdering Facility: [facility] Address: [address] [place] [address] Performed By: #### 5 7021-8 ####[facility] [id number] [place] [address] Platelets (Bld) [#/Vol] 224 10*3/uL Normal 150-400 [facility] Comment on above: Order Comment: Speci men Type: BLOOD SPECIMENOrdering Facility: [facility] Address: [address] [place] [address] Performed By: #### 5 7021-8 ####[facility] [id number] [place] [address] RBC (Bld) [#/Vol] 3.99 10*6/uL Normal 3.90-5.20 [facility] Comment on above: Order Comment: Speci men Type: BLOOD SPECIMENOrdering Facility: [facility] Address: [address] [place] [address] Performed By: #### 5 7021-8 ####[facility] [id number] [place] [address] WBC (Bld) [#/Vol] 9.72 10*3/uL Normal 3.70-11.00 [facility] Comment on above: Order Comment: Speci men Type: BLOOD SPECIMENOrdering Facility: [facility] Address: [address] [place] [address] Performed By: #### 5 7021-8 ####[facility] [id number] [place] [address] CNOVSPon 12-26-2023 CNOVSP Visit (SP) Office (HEMASA) VY MCKEON ([id number]) 1990 F Date Time Provider Department 12/26/23 3:30 PM USMAN GOLDBERG During your visit today, we recorded the following information about you: Temperature Pulse Respiration Blood pressure 97.3 degrees 87/minute 16/minute 134/74 Weight Height Last Period 86.1 kg 1.702 m 06/24/23 Usman Goldberg MD 12/27/2023 12:46 PM Signed NAME: Vy Mckeon CLINIC NO.: [id number] DATE OF SERVICE: December 26, 2023 (Krystal) [...] magnesium (ACID (more content not included)... Normal [facility] metabolic 2000 panelon 12-26-2023 Albumin [Mass/Vol] 3.9 g/dL Normal 3.9-4.9 [facility] Comment on above: Order Comment: Speci men Type: BLOOD SPECIMENOrdering Facility: [facility] Address: [address] [place] [address] Performed By: #### 2 4323-8, 2531-0 ####[facility] [id number] [place] [address] ALP [Catalytic activity/Vol] 109 U/L Normal 34-123 [facility] Comment on above: Order Comment: Speci men Type: BLOOD SPECIMENOrdering Facility: [facility] Address: [address] [place] [address] Performed By: #### 2 432-8, 2531-0 ####[facility] [id number] [place] [address] ALT [Catalytic activity/Vol] 26 U/L Normal 7-38 [facility] Comment on above: Order Comment: Speci men Type: BLOOD SPECIMENOrdering Facility: [facility] Address: [address] [place] [address] Performed By: #### 2 4323-8, 2531-0 ####[facility] [id number] [place] [address] Anion gap [Moles/Vol] 10 mmol/L Normal 9-18 [facility] Comment on above: Order Comment: Speci men Type: BLOOD SPECIMENOrdering Facility: [facility] Address: [address] [place] [address] Performed By: #### 2 4323-8, 2531-0 ####[facility] LABCLIA [id number] [place] [address] AST [Catalytic activity/Vol] 26 U/L Normal 13-35 [facility] Comment on above: Order Comment: Speci men Type: BLOOD SPECIMENOrdering Facility: [facility] Address: [address] [place] [address] Performed By: #### 2 4323-8, 2531-0 ####[facility] [id number] [place] [address] Bilirubin [Mass/Vol] 0.2 mg/dL Normal 0.2-1.3 [facility] Comment on above: Order Comment: Speci men Type: BLOOD SPECIMENOrdering Facility: [facility] Address: [address] [place] [address] Performed By: #### 2 4323-8, 2531-0 ####[facility] LABCLIA [id number] [place] [address] Calcium [Mass/Vol] 10.1 mg/dL Normal 8.5-10.2 [facility] [place] Comment on above: Order Comment: Speci men Type: BLOOD SPECIMENOrdering Facility: [facility] Address: [address] [place] [address] Performed By: #### 2 4323-8, 2531-0 ####[facility] LABCLIA [id number] [place] [address] Chloride [Moles/Vol] 103 mmol/L Normal 97-105 [facility] Comment on above: Order Comment: Speci men Type: BLOOD SPECIMENOrdering Facility: [facility] Address: [address] [place] [address] Performed By: #### 2 4323-8, 2531-0 ####[facility]CL[facility] [id number] [place] [address] CO2 [Moles/Vol] 23 mmol/L Normal 22-30 [facility] Comment on above: Order Comment: Speci men Type: BLOOD SPECIMENOrdering Facility: [facility] Address: [address] [place] [address] Performed By: #### 2 4323-8, 2531-0 ####[facility]CLIA [id number] [place] [address] Creatinine [Mass/Vol] 0.64 mg/dL Normal 0.58-0.96 [facility] Comment on above: Order Comment: Speci men Type: BLOOD SPECIMENOrdering Facility: [facility] Address: [address] [place], [place] [address] Performed By: #### 2 4323-8, 2531-0 ####[facility] LABCL[facility] [id number] [place] [address] Creatinine and Glomerular filtration rate.predicted panel (S/P/Bld) 118 mL/min/1.73m??? Normal >=60 [facility] Comment on above: Order Comment: Speci men Type: BLOOD SPECIMENOrdering Facility: [facility] Address: [address] [place] [address] Result Comment: Araseli mated Glomerular Filtration Rate [...] GFR. Performed By: #### 2 4323-8, 0 ####[facility]CL[facility] [id number] [place] [address] Glucose [Mass/Vol] 85 mg/dL Normal 74-99 [facility] [place] Comment on above: Order Comment: Speci men Type: BLOOD SPECIMENOrdering Facility: [facility] Address: [address] [place], [place] [address] Result Comment: The [place] Diabetes Association (ADA) provides guidance for cutoff [...] Standards of Medical Care in Diabetes 2016, [place] Diabetes Association. Diabetes Care. 2016.39(Suppl 1). Performed By: #### 2 4328, 0 ####[facility]CLIA [id number] [place] [address] Potassium [Moles/Vol] 4.1 mmol/L Normal 3.7-5.1 [facility] Comment on above: Order Comment: Speci men Type: BLOOD SPECIMENOrdering Facility: [facility] Address: [address] [place] [address] Performed By: #### 2 43212-06, ####[facility] LABCLIA [id number] [place] [address] Protein [Mass/Vol] 7.3 g/dL Normal 6.3-8.0 [facility] [place] Comment on above: Order Comment: Speci men Type: BLOOD SPECIMENOrdering Facility: [facility] Address: [address] [place] [address] Performed By: #### 2 43212-06, ####[facility] LABCL[facility] [id number] [place] [address] Sodium [Moles/Vol] 136 mmol/L Normal 136-144 [facility] [place] Comment on above: Order Comment: Speci men Type: BLOOD SPECIMENOrdering Facility: [facility] Address: [address] [place] [address] Performed By: #### 2 4328, 0 ####[facility] LABCLIA [id number] [place] [address] Urea nitrogen [Mass/Vol] 6 mg/dL Low 7-21 [facility] Comment on above: Order Comment: Speci men Type: BLOOD SPECIMENOrdering Facility: [facility] Address: [address] [place], [place] [address] Performed By: #### 2 4323-8, 2532-0 ####[facility] LABCLIA [id number] [place] [address] LDH SerPl-cCncon 12-26-2023 LDH [Catalytic activity/Vol] 190 U/L Normal 135-214 [facility] Comment on above: Order Comment: Speci men Type: BLOOD SPECIMENOrdering Facility: [facility] Address: [address] [place] [address] Result Comment: Hemo lysis present. The origin [...] indicated. Performed By: #### 2 4323-8, 2531-0 ####[facility] LABIA [id number] [place] [address] URETHRITIS/DISCHARGE PLUS VA GINITIS (HTRX)on 11-14-2023 ATOPOBIUM VAGINAE 19.497 Abnormal [facility] ATOPOBIUM VAGINAE Detected Abnormal [facility] BVAB 2,3 (BACTERIAL VAGINOSIS ASSOCIATED BACTERIA 2, 3); MOBILUNCUS SPP 15.096 Abnormal [facility] Healthcare BVAB 2,3 (BACTERIAL VAGINOSIS ASSOCIATED BACTERIA 2, 3); MOBILUNCUS SPP Detected Abnormal [facility] Healthcare DIANE ALBICANS, PARAPSILOSIS, TROPICALIS 0 [facility] DIANE ALBICANS, PARAPSILOSIS, TROPICALIS Not detected [facility] DIANE GLABRATA 0 [facility] DIANE GLABRATA Not detected [facility] DIANE KRUSEI 0 [facility] DIANE KRUSEI Not detected [facility] CHLAMYDIA TRACHOMATIS 0 [facility] CHLAMYDIA TRACHOMATIS Not detected [facility] DFR (A1, A5), SUL (1,2) 0 PPM [facility] Healthcare DFR (A1, A5), SUL (1,2) Not detected [facility] Healthcare ERMB, C; MEFA 14.773 Abnormal PPM [facility] care ERMB, C; MEFA Detected Abnormal [facility] care GARDNERELLA VAGINALIS 0 [facility] GARDNERELLA VAGINALIS Not detected [facility] Interpretation and review of laboratory results Abnormal [facility] Health[facility] re MEGASPHAERA (TYPES 1, 2) 0 [facility] MEGASPHAERA (TYPES 1, 2) Not detected [facility] MYCOPLASMA GENITALIUM 0 [facility] MYCOPLASMA GENITALIUM Not detected [facility] NEISSERIA GONORRHOEAE 0 [facility] NEISSERIA GONORRHOEAE Not detected [facility] TET B, TET M 18.414 Abnormal PPM [facility] are TET B, TET M Detected Abnormal [facility] are TRICHOMONAS VAGINALIS 0 [facility] TRICHOMONAS VAGINALIS Not detected [facility] Un[facility] Lab Teston 11-13-19 24 Unlisted lab test see scanned report [facility] Urinalysis macro (dipstick) panel (U)on 11-12-2023 Bilirubin, UA Negative Negative - 4(70) +++ mg/dL [facility] Blood, UA Negative Negative - 50 Manny/mcL [facility] Clarity, UA Clear [facility] re Color, UA Yellow [facility] Health[facility] Glucose, UA Negative Negative - 1999(110) ++++ mg/dL [facility] Interpretation and review of laboratory results Normal [facility] re Ketones, UA Negative Negative - 160(16) ++++ mg/dL [facility] Leukocytes, UA Negative Negative - 500+++ Luli/mcL [facility] Nitrite, UA Negative Negative - Positive [facility] pH, UA 6.0 5 - 9 [facility] Protein, UA Negative Negative - 1999(20) ++++ mg/dL [facility] Spec Grav, UA 1.020 1 - 1.03 [facility] Urobilinogen, UA 1.0 0.2 - 12 mg/dL [facility] HCG ( test) IAnupur bowie Ql (U)Ordered By: Karan Romero on 03-19-2023 HCG ( test) Ql (U) Negative [facility] HCG,Urineon 03-19-2023 Beta HCG ( test) Ql (U) Negative Normal [facility] Comment on above: Result Comment: PERF ORMED BY: [address] [place] [id number] PATHOLOGIST ABSTRACT WRITER JOYCE ACHARYA M.D. Performed By: #### U HCG #### [place] [id number] [facility] Joel 03-19-2023 L - -------- Specimen: [id number] Received: 03/19/23 Status: HEMANT [place] Num: [id number] Spec Type: Surgical Subm Dr: Karan Romero MD Tissues: A Duodenum - Biopsy (DUODENAL BX) B Esophagus Biopsy (ESOPHAGEAL) Procedures: HE/Maday, Gross/Micro L4/2 -------- Age/ Patient Sex Location Account Attending Physician -------- Vy Mckeon 32/F [id number] Karan Romero MD -------- SPEC NUM: [id number] RECD: 03/19/23 STATUS: HEMANT JOHNSTON NUM: [id number] ASAD: 03/19/[address] [facility] DR: Karan Romero MD ENTERED: 03/19/23 [facility] DR: SPEC TYPE: Surgical DEPT: S ORDERED: [...] in one cassette labeled B1. -------- Specimen: [id number] Received: 03/19/23 Status: HEMANT Johnston Num: [id number] Spec Type: Surgical Subm Dr: Karan Romero MD Tissues: A Duodenum - Biopsy (DUODENAL BX) B Esophagus Biopsy (ESOPHAGEAL) Procedures: ROBINA Gross/Micro L4/2 -------- Patient: MikeVy Josephine [id number] (Continued) -------- Specimen: [id number] Received: 03/19/23 (Continued) Signed (signature on file) Doris Reynolds MD 03/20/23 1117 -------- Specimen: [id number] Received: 03/19/23 Status: HEMANT Johnston Num: [id number] Spec Type: Surgical Subm Dr: Karan Romero MD Tissues: A Duodenum - Biopsy (DUODENAL BX) B Esophagus Biopsy (ESOPHAGEAL) Procedures: Maday Gross/Micro L4/2 -------- Patient: Vy Mckeon [id number] (Continued) -------- Specimen: [id number] Received: 03/19/23 (Continued) Microscopic Description A. Two with H E stained material have been examined. The microscopic findings support the above pathologic diagnosis. B. Two with H E stained material have been examined. The microscopic findings support the above pathologic diagnosis. CPT Codes 70618 x 2 -------- -------- Specimen: [id number] Received: 03/19/23 Status: HEMANT Johnston Num: [id number] Spec Type: Surgical Subm Dr: Karan Romero MD Tissues: A Duodenum - Biopsy (DUODENAL BX) B Esophagus Biopsy (ESOPHAGEAL) Procedures: HE/4, Gross/Micro L4/2 -------- Patient: Vy Mckeon [id number] (Continued) -------- Signed (signature on file) Doris Reynolds MD 03/20/23 1117 [facility] CBC AUTO DIFFon 02-09-2023 BASO # 0.0 103/ul Normal 0.0-0.1 [facility] Comment on above: Performed By: #### C BC ####[facility] [address] [place] [address]DrBryant Branham Basophils/100 WBC (Bld) 0.3 % Normal 0.2-2.0 [facility] Comment on above: Performed By: #### C BC ####[facility] [address] [place] [address]DrBryant Branham EO # 0.2 103/ul Normal 0.0-0.7 [facility] Comment on above: Performed By: #### C BC ####[facility] [address] [place] [address]DrBryant Branham Eosinophils/100 WBC (Bld) 1.7 % Normal 0.9-7.0 [facility] Comment on above: Performed By: #### C BC ####[facility] E[address] [place] [address]DrBryant Branham Erythrocyte distribution width (RBC) [Ratio] 13.9 % Normal 11.0-15.0 [facility] Comment on above: Performed By: #### C BC ####[facility] [address] [place] [address]Dr. Zafar Branham Hematocrit (Bld) [Volume fraction] 41.0 % Normal 36.0-48.0 [facility] Comment on above: Performed By: #### C BC ####[facility] [address] [place], [place] [address]Dr. Zafar Branham Hemoglobin (Bld) [Mass/Vol] 13.4 g/dL Normal 12.0-16.0 [facility] Comment on above: Performed By: #### C BC ####[facility] [address] [place], [place] [address]DrBryant Branham IG # 0.03 10e3/ul Normal 0.00-0.03 [facility] Comment on above: Performed By: #### C BC ####[facility] [address] [place], [place] [address]Dr. Zafar Branham IG % 0.3 % Normal 0.0-0.5 [facility] Comment on above: Performed By: #### C BC ####[facility] [address] [place], [place] [address]DrBryant Branham LYMPH # 1.4 103/ul Normal 1.2-3.8 [facility] Comment on above: Performed By: #### C BC ####[facility] Te[address] [place], [place] [address]DrBryant Branham Lymphocytes/100 WBC (Bld) 14.8 % Critically low 20.5-60.0 [facility] Comment on above: Performed By: #### C BC ####[facility] [address] [place], [place] [address]DrBryant Branham MANUAL DIFF REQ NO Normal [facility] Comment on above: Performed By: #### C BC ####[facility] [address] [place], [place] [address]DrBryant Branham MCH (RBC) [Entitic mass] 28.8 pg Normal 26.7-34.0 [facility] Comment on above: Performed By: #### C BC ####[facility] [address] [place] [address]DrBryant Branham MCHC (RBC) [Mass/Vol] 32.7 g/dL Normal 29.9-35.2 [facility] Comment on above: Performed By: #### C BC ####[facility] [address]fl[address] [place] [address]DrBryant Branham MCV (RBC) [Entitic vol] 88.0 fL Normal 81.0-99.0 [facility] Comment on above: Performed By: #### C BC ####[facility] [address] [place], [place] [address]DrBryant Branham MONO # 0.4 103/ul Normal 0.3-0.8 [facility] Comment on above: Performed By: #### C BC ####[facility] [address] [place], [place] [address]DrBryant Branham Monocytes/100 WBC (Bld) 3.9 % Normal 1.7-12.0 [facility] Comment on above: Performed By: #### C BC ####[facility] [address] [place], [place] [address]DrBryant Branham NEUT # 7.2 103/ul Critically high 1.4-6.5 [facility] Comment on above: Performed By: #### C BC ####[facility] [address] [place], [place] [address]DrBryant Branham Neutrophils/100 WBC (Bld) 79.0 % Critically high 43.0-75.0 [facility] Comment on above: Performed By: #### C BC ####[facility] [address] [place], [place] [address]DrBryant Branham Platelet mean volume (Bld) [Entitic vol] 10.7 fL Normal 9.5-13.5 [facility] Comment on above: Performed By: #### C BC ####[facility] [address] [place], [place] [address]DrBryant Branham PLT 353 103/ul Normal 150-450 [facility] Comment on above: Performed By: #### C BC ####[facility] [address] [place], [place] [address]Xu. Zafar Branham RBC 4.66 106/ul Normal 4.20-5.40 [facility] Comment on above: Performed By: #### C BC ####[facility] [address] [place], [place] [address]Ts. Zafar Yonas WBC 9.2 103/ul Normal 4.0-11.0 [facility] Comment on above: Performed By: #### C BC ####[facility] [address] [place] [address]DrBryant Branham CRPon 02-09-2023 CRP 1.0 mg/dL Normal <=1.0 [facility] Comment on above: Performed By: #### C RP, CMP, TSH, LIPID ####[facility] [address] [place] [address]Dr. Zafar Yonas FREE T4on 02-09-2023 Free T4 [Mass/Vol] 1.01 ng/dL Normal 0.76-1.[address] [facility] Comment on above: Performed By: #### F T4 #### [facility] [address] [place], [place] [address] Dr. Zafar Branham LIPID PROFILEon 02-09-2023 CHOL-HDL RATIO NORM SEE BELOW Normal [facility] Comment on above: Result Comment: 3.3 - 4.4 LOW RISK 4.4 - 7.1 AVERAGE RISK 7.1 - 11.0 MODERATE RISK >11.0 HIGH RISK Performed By: #### C RP, CMP, TSH, LIPID ####[facility] [address] [place] [address]DrBryant Branham Cholesterol [Mass/Vol] 230 mg/dL Critically high <=200 [facility] Comment on above: Performed By: #### C RP, CMP, TSH, LIPID ####[facility] [address] [place] [address]DrBryant Branham Cholesterol in HDL [Mass/Vol] 71 mg/dL Critically high 40-60 [facility] Comment on above: Performed By: #### C RP, CMP, TSH, LIPID ####[facility] [address] [place] [address]Dr. Zafar Branham Cholesterol in LDL [Mass/Vol] 139.4 mg/dL Normal [facility] Comment on above: Performed By: #### C RP, CMP, TSH, LIPID ####[facility] [address] [place] [address]Dr. Zafar Branham Cholesterol.total/C holesterol in HDL [Mass ratio] 3.2 {ratio} Normal [facility] Comment on above: Performed By: #### C RP, CMP, TSH, LIPID ####[facility] [address] [place] [address]Dr. Zafar Branham HDL NORMAL > or = 60 mg/dl - LO W CARDIOVASCULAR RISK <40 mg/dl - HIGH CARDIOVASCULAR RISK Normal [facility] Comment on above: Performed By: #### C RP, CMP, TSH, LIPID ####[facility] [address] [place] [address]Dr. Zafar Branham LDL CALC NORMAL SEE BELOW Normal [facility] Comment on above: Result Comment: <100 mg/dl OPTIMAL 100 - 129 mg/dl NEAR OR ABOVE OPTIMAL 130 - 159 mg/dl BORDERLINE HIGH 160 - 189 mg/dl HIGH >190 mg/dl VERY HIGH Performed By: #### C RP, CMP, TSH, LIPID ####[facility] [address] [place] [address]Dr. Zafar Branham Triglyceride [Mass/Vol] 98 mg/dL Normal <=150 [facility] Comment on above: Performed By: #### C RP, CMP, TSH, LIPID ####[facility] [address] [place] [address]Dr. Zafar Branham VLDL CALC 19.6 mg/dL Normal [facility] Comment on above: Performed By: #### C RP, CMP, TSH, LIPID ####[facility] [address] [place] [address]Dr. Zafar Branham URon 02-09-2023 , QUAL Negative Normal NEGATIVE [facility] Comment on above: Performed By: #### U AMIC, PREGU #### [facility] [address] [place] [address] [address] Zafar Branham PROF 14(COMP METB)on 023 Albumin [Mass/Vol] 4.0 g/dL Normal 3.4-5.[address] [facility] Comment on above: Performed By: #### C RP, CMP, TSH, LIPID #### [facility] [address] [place] [address] [address] Zafar Branham Albumin/Globulin [Mass ratio] 0.9 {ratio} Normal [facility] Comment on above: Performed By: #### C RP, CMP, TSH, LIPID #### [facility] [address] [place] [address] Dr. Zafar Branham ALP [Catalytic activity/Vol] 94 U/L Normal 46-116 [facility] Comment on above: Performed By: #### C RP, CMP, TSH, LIPID #### [facility] [address] [place] [address] Dr. Zafar Branham ALT [Catalytic activity/Vol] 30 U/L Normal 14-59 [facility] Comment on above: Performed By: #### C RP, CMP, TSH, LIPID #### [facility] [address] [place] [address] [address] Zafar Branham Anion gap [Moles/Vol] 13.6 mmol/L Normal [facility] Comment on above: Performed By: #### C RP, CMP, TSH, LIPID #### [facility] [address] [place] [address] Dr. Zafar Branham AST [Catalytic activity/Vol] 23 U/L Normal 15-37 [facility] Comment on above: Performed By: #### C RP, CMP, TSH, LIPID #### [facility] [address] [place] [address] Dr. Zafar Branham Bilirubin [Mass/Vol] 0.3 mg/dL Normal 0.2-1.0 [facility] Comment on above: Performed By: #### C RP, CMP, TSH, LIPID #### [facility] [address] [place] [address] [address] Zafar Branham Calcium [Mass/Vol] 9.7 mg/dL Normal 8.5-10.1 [facility] Comment on above: Performed By: #### C RP, CMP, TSH, LIPID #### [facility] [address] [place] [address] [address] Zafar Branham Chloride [Moles/Vol] 100 mmol/L Normal 98-107 [facility] Comment on above: Performed By: #### C RP, CMP, TSH, LIPID #### [facility] [address] [place] [address] [address] Zafar Branham CO2 [Moles/Vol] 26.6 mmol/L Normal 21.0-32.0 [facility] Comment on above: Performed By: #### C RP, CMP, TSH, LIPID #### [facility] [address] [place] [address] Dr. Zafar Branham Creatinine [Mass/Vol] 1.00 mg/dL Normal 0.55-1.02 [facility] Comment on above: Performed By: #### C RP, CMP, TSH, LIPID #### [facility] [address] [place] [address] [address] Zafar Branham EGFR-AF TRINIDADIAN >60 Normal >=60 [facility] Comment on above: Performed By: #### C RP, CMP, TSH, LIPID #### [facility] [address] [place] [address] Dr. Zafar Branham EGFR-NON AF TRINIDADIAN >60 Normal >=60 [facility] Comment on above: Performed By: #### C RP, CMP, TSH, LIPID #### [facility] [address] [place] [address] [address] Zafar Branham Globulin (S) [Mass/Vol] 4.5 g/dL Normal [facility] Comment on above: Performed By: #### C RP, CMP, TSH, LIPID #### [facility] [address] [place] [address] Dr. Zafar Branham Glucose [Mass/Vol] 93 mg/dL Normal 74-106 [facility] Comment on above: Performed By: #### C RP, CMP, TSH, LIPID #### [facility] [address] [place] [address] [address] Zafar Branham Potassium [Moles/Vol] 4.2 mmol/L Normal 3.5-5.1 [facility] Comment on above: Performed By: #### C RP, CMP, TSH, LIPID #### [facility] [address] [place] [address] [address] Zafar Branham Protein [Mass/Vol] 8.5 g/dL Critically high 6.4-8.2 [facility] Comment on above: Performed By: #### C RP, CMP, TSH, LIPID #### [facility] [address] [place] [address] [address] Zafar Branham Sodium [Moles/Vol] 136 mmol/L Normal 136-[address] [facility] Comment on above: Performed By: #### C RP, CMP, TSH, LIPID #### [facility] [address] [place] [address] [address] Zafar Branham Urea nitrogen [Mass/Vol] 10.0 mg/dL Normal 7.0-18.0 [facility] Comment on above: Performed By: #### C RP, CMP, TSH, LIPID #### [facility] [address] [place] [address] [address] Zafar Branham Urea nitrogen/Creatinine [Mass ratio] 10.0 mg/mg Normal [facility] Comment on above: Performed By: #### C RP, CMP, TSH, LIPID #### [facility] [address] [place] [address] [address] Zafar Branham SED RATE LEXINGTONERGRENon 2022 SED RATE 49 mm/hr Critically high <=20 [facility] Comment on above: Performed By: #### S EDR ####[facility] [address] [place] [address]Dr. Zafar Branham TSHon 02-09-2023 TSH 0.590 uIU/mL Normal 0.358-3.740 [facility] Comment on above: Performed By: #### C RP, CMP, TSH, LIPID #### [facility] [address] [place] [address] [address] Zafar Branham UA RANDOM W/MICROSCOPICon BACTERIA NONE SEEN Normal NONE SEEN [facility] Comment on above: Performed By: #### U AMIC, PREGU #### [facility] [address] [place] [address] [address] Zafar Branham Bilirubin Ql (U) Negative Normal NEGATIVE [facility] Comment on above: Performed By: #### U AMIC, PREGU #### [facility] [address] [place] [address] [address] Zafar Branham CAST NONE SEEN Normal NONE SEEN [facility] Comment on above: Performed By: #### U AMIC, PREGU #### [facility] [address] [place] [address] [address] Zafar Branham Clarity (U) CLEAR Normal CLEAR [facility] Comment on above: Performed By: #### U AMIC, PREGU #### [facility] [address] [place] [address] [address] Zafar Branham Color (U) LT. YELLOW Normal YELLOW [facility] Comment on above: Performed By: #### U AMIC, PREGU #### [facility] [address] [place] [address] [address] Zafar Branham Crystals LM Nom (Urine sed) NONE SEEN Normal NONE SEEN [facility] Comment on above: Performed By: #### U AMIC, PREGU #### [facility] [address] [place] [address] [address] Zafar Branham Epithelial cells LM Ql (Urine sed) FEW Abnormal NONE SEEN /RARE [facility] Comment on above: Performed By: #### U AMIC, PREGU #### [facility] [address] [place] [address] [address] Zafar Branham Glucose Ql (U) Negative Normal NEGATIVE [facility] Comment on above: Performed By: #### U AMIC, PREGU #### [facility] [address] [place] [address] [address] Zafar Branham Hemoglobin Ql (U) SMALL Abnormal NEGATIVE [facility] Comment on above: Performed By: #### U AMIC, PREGU #### [facility] [address] [place] [address] [address] Zafar Branham Ketones Ql (U) Negative Normal NEGATIVE [facility] Comment on above: Performed By: #### U AMIC, PREGU #### [facility] [address] [place] [address] [address] Zafar Branham LEUKOCYTES Negative Normal NEGATIVE [facility] Comment on above: Performed By: #### U AMIC, PREGU #### [facility] [address] [place] [address] [address] Zafar Branham MUCOUS NONE SEEN Normal NONE SEEN [facility] Comment on above: Performed By: #### U AMIC, PREGU #### [facility] [address] [place] [address] Dr. Zafar Branham Nitrite Ql (U) Negative Normal NEGATIVE [facility] Comment on above: Performed By: #### U AMIC, PREGU #### [facility] [facility] [address] [place] [address] Dr. Zafar Branham pH (U) 6.0 [pH] Normal 5-9 [facility] Comment on above: Performed By: #### U AMIC, PREGU #### [facility] [address] [place] [address] Dr. Zaafr Branham RBC 0-2 Normal 0-2 [facility] Comment on above: Performed By: #### U AMIC, PREGU #### [facility] [address] [address] [address] Zafar Branham SPEC GRAVITY <=1.005 Abnormal 1.005-<=1.025 [facility] Comment on above: Performed By: #### U AMIC, PREGU #### [facility] [address] [place] [address] Dr. Zafar Branham UA PROTEIN Negative Normal NEGATIVE/ TRACE [facility] Comment on above: Performed By: #### U AMIC, PREGU #### [facility] [address] [place] [address] Dr. Zafar Branham Urobilinogen Qn (U) 0.2 {Ramy'U}/dL Normal 0.2 - 1. 0 [facility] Comment on above: Performed By: #### U AMIC, PREGU #### [facility] [address] [address] [address] Zafar Branham WBC NONE SEEN Normal NONE SEEN [facility] Comment on above: Performed By: #### U AMIC, PREGU #### [facility] [address] [address] [address] Zafar Branham XR knee RT 4V*on 02-07-2023 XR knee RT 4V* [facility] [employer] Other XR knee RT 4V* [facility] [employer] Other XR knee RT 4V* [address] [place] [address] [employer] Other XR knee RT 4V* [place] [address] No rt [employer] Other XR knee RT 4V* XRay Report [employer] Other XR knee RT 4V* Signed [employer] Other XR knee RT 4V* Patient: Vy Mckeon MR#: [id number] [place] [employer] Other XR knee RT 4V* 5 [employer] Other XR knee RT 4V* : 1990 Acct:[id number] [employer] Other XR knee RT 4V* Age/Sex: 32 / F ADM Date: 02/07/23 [employer] Other XR knee RT 4V* Loc: XDUCLY Room: Type: [facility] [employer] Other XR knee RT 4V* Attending Dr: Shayla DENNEY [employer] Other XR knee RT 4V* Copies to: JUMANA Christianson [employer] Other XR knee RT 4V* Ordering Provider: JUMANA Christianson [employer] Other XR knee RT 4V* Date of Service: 02/07/23 [employer] Other XR knee RT 4V* XR/XR knee RT 4V*: RIGHT KNEE PAIN [employer] Other XR knee RT 4V* RIGHT KNEE - 4 views [employer] Other XR knee RT 4V* COMPARISON: None [place] [employer] Other XR knee RT 4V* CLINICAL DATA: Patient fell last night and landed on right anterior knee. Pain, swelling and [employer] Other XR knee RT 4V* abrasions. [employer] Other XR knee RT 4V* AP, lateral and both oblique views were obtained. There is no fracture or dislocation. There is no [employer] Other XR knee RT 4V* significant knee effusion or focal soft tissue swelling. [employer] Other XR knee RT 4V* XR/XR knee RT 4V* [employer] Other XR knee RT 4V* IMPRESSION: [employer] Other XR knee RT 4V* NO ACUTE BONY INJURY. [employer] Other XR knee RT 4V* Impression dictated by: Rama Garsia M.D.02/07/2023 10:01 AM [employer] Other XR knee RT 4V* Dictation Location: [address] [place] [address] [employer] Other XR knee RT 4V* Transcribed By: MILKA 02/07/23 1001 [employer] Other XR knee RT 4V* Dictated By: Rama Garsia MD 02/07/23 1000 [employer] Other XR knee RT 4V* Signed By: [place] [employer] Other XR knee RT 4V* 02/07/23 1001 [employer] Other XR knee RT 4V* [facility] [employer] [address] [place] [address] XRay Report Signed Patient: Vy Mckeon MR#: [id number] 5 : 1990 Acct:[id number] Age/Sex: 32 / F ADM Date: 02/07/23 Loc: XDUC Room: Type: [facility] Attending Dr: Shayla DENNEY Copies to: [...] Rama Garsia M.D.02/07/2023 10:01 AM Dictation Location: [place] [address] Transcribed By: [facility] 02/07/23 1001 Dictated By: Rama Garsia MD 02/07/23 1000 Signed By: 02/07/23 1001 [facility] XR HIPS KARELY 5V W PELVISon [...] JO-ANN CHACON Date: 2022-12-17 13:04 Normal [facility] PREG QUANT HCGon 07-04-2022 HCG QUANT 1 mIU/mL Normal [facility] Comment on above: Performed By: #### P REGQNT #### [facility] [address] [place] [address] Dr. Zafar Branham HCG RANGE SEE BELOW Normal [facility] Comment on above: Result Comment: 5-50 0.2-1 WEEK 50-500 1-2 WEEKS 100-5,000 2-3 WEEKS 500-10,000 3-4 WEEKS 1,000-50,000 4-5 WEEKS 10,000-100,000 5-6 WEEKS 15,000-200,000 6-8 WEEKS 10,000-100,000 2-3 MONTHS Performed By: #### P REGQNT #### [facility] [address] [place] [address] Dr. Zafar Branham PREG QUANT HCGon 06-08-2022 HCG QUANT 16 mIU/mL Normal [facility] Comment on above: Performed By: #### P REGQNT ####[facility] [address] [place], [place] [address]Dr. Zafar Branham HCG RANGE SEE BELOW Normal [facility] Comment on above: Result Comment: 5-50 0.2-1 WEEK 50-500 1-2 WEEKS 100-5,000 2-3 WEEKS 500-10,000 3-4 WEEKS 1,000-50,000 4-5 WEEKS 10,000-100,000 5-6 WEEKS 15,000-200,000 6-8 WEEKS 10,000-100,000 2-3 MONTHS Performed By: #### P REGQNT ####[facility] [address] [place], [place] [address]Dr. Zafar Branham CBC AUTO DIFFon 05-23-2022 BASO # 0.0 103/ul Normal 0.0-0.1 [facility] Comment on above: Performed By: #### C BC #### [facility] [address] [address] [address] Zafar Branham Basophils/100 WBC (Bld) 0.6 % Normal 0.2-2.0 [facility] Comment on above: Performed By: #### C BC #### [facility] [address] [address] [address] Zafar Branham EO # 0.3 103/ul Normal 0.0-0.7 [facility] Comment on above: Performed By: #### C BC #### [facility] [address] [address] [address] Zafar Branham Eosinophils/100 WBC (Bld) 6.5 % Normal 0.9-7.0 [facility] Comment on above: Performed By: #### C BC #### [facility] [address] [place] [address] Dr. Zafar Branham Erythrocyte distribution width (RBC) [Ratio] 12.5 % Normal 11.0-15.0 [facility] Comment on above: Performed By: #### C BC #### [facility] [address] [place] [address] Dr. Zafar Branham Hematocrit (Bld) [Volume fraction] 37.2 % Normal 36.0-48.0 [facility] Comment on above: Performed By: #### C BC #### [facility] [address] [place] [address] Dr. Zafar Branham Hemoglobin (Bld) [Mass/Vol] 12.1 g/dL Normal 12.0-16.0 [facility] Comment on above: Performed By: #### C BC #### [facility] [address] [place] [address] Dr. Zafar Branham IG # 0.01 10e3/ul Normal 0.00-0.03 [facility] Comment on above: Performed By: #### C BC #### [facility] [address] [place] [address] Dr. Zafar Branham IG % 0.2 % Normal 0.0-0.5 [facility] Comment on above: Performed By: #### C BC #### [facility] [address] [place] [address] Dr. Zafar Branham LYMPH # 1.5 103/ul Normal 1.2-3.8 [facility] Comment on above: Performed By: #### C BC #### [facility] [address] [place] [address] Dr. Zafar Branham Lymphocytes/100 WBC (Bld) 29.8 % Normal 20.5-60.0 [facility] Comment on above: Performed By: #### C BC #### [facility] [address] [place] [address] Dr. Zafar Branham MANUAL DIFF REQ NO Normal [facility] Comment on above: Performed By: #### C BC #### [facility] [address] [place] [address] Dr. Zafar Branham MCH (RBC) [Entitic mass] 29.1 pg Normal 26.7-34.0 [facility] Comment on above: Performed By: #### C BC #### [facility] [address] [place] [address] Dr. Zafar Branham MCHC (RBC) [Mass/Vol] 32.5 g/dL Normal 29.9-35.2 [facility] Comment on above: Performed By: #### C BC #### [facility] [address] [place] [address] Dr. Zafar Branham MCV (RBC) [Entitic vol] 89.4 fL Normal 81.0-99.0 [facility] Comment on above: Performed By: #### C BC #### [facility] [address] [place] [address] Dr. Zafar Branham MONO # 0.4 103/ul Normal 0.3-0.8 [facility] Comment on above: Performed By: #### C BC #### [facility] [address] [place] [address] Dr. Zafar Branham Monocytes/100 WBC (Bld) 7.9 % Normal 1.7-12.0 [facility] Comment on above: Performed By: #### C BC #### [facility] [address] [place] [address] Dr. Zafar Branham NEUT # 2.7 103/ul Normal 1.4-6.5 [facility] Comment on above: Performed By: #### C BC #### [facility] [address] [address] [address] Zafar Branham Neutrophils/100 WBC (Bld) 55.0 % Normal 43.0-75.0 [facility] Comment on above: Performed By: #### C BC #### [facility] [address] [address] [address] Zafar Branham Platelet mean volume (Bld) [Entitic vol] 10.0 fL Normal 9.5-13.5 [facility] Comment on above: Performed By: #### C BC #### [facility] [address] [address] [address] Zafar Branham PLT 229 103/ul Normal 150-450 [facility] Comment on above: Performed By: #### C BC #### [facility] [address] [address] [address] Zafar Branham RBC 4.16 106/ul Critically low 4.20-5.40 [facility] Comment on above: Performed By: #### C BC #### [facility] [address] [address] [address] Zafar Branham WBC 5.0 103/ul Normal 4.0-11.0 [facility] Comment on above: Performed By: #### C BC #### [facility] [address] [place] [address] Dr. Zafar Branham TYPE AND SCREENon 05-23-2022 TYPE AND SCREEN Negative Normal [facility] Comment on above: Performed By: #### T NS ####[facility] [address] [address]Dr. Zafar Branham Covid-19 PCR (CVDTBH)on 05-01 SARS-CoV-2 (COVID-19) RNA MANOLO+probe Ql (Unsp spec) Not detected Normal NOT DETECTED [facility] Comment on above: Result Comment: This test is not yet approved or cleared by the [place] FDA. When there are no FDA-approved or cleared tests available, and other criteria are met, FDA can make tests available under an emergency access mechanism called an Emergency Use Authorization (EUA). The EUA for this test is supported by the [place] of Health and Human Service's (HHS's) declaration [...] consistent with SARS-CoV-2. Performed By: #### C [facility] #### [facility] [address] [place] [address] Dr. Zafar Branham US PREG TVon 05-18-2022 [...] BOBBI SIMONS Date: 2022-05-18 19:25 Normal [facility] US PREG TVon 05-03-2022 US PREG [...] by: BOBBI SIMONS Date: 2022-05-03 16:32 Normal [facility] Chlamydia/GC DNA, TPon 05-05 Chlamydia Probe, TP Negative Normal NEG [facility] Comment on above: Result Comment: [...] target. Performed By: #### C YTCGP #### [facility] [address] [place], [place] [id number] Licensed Vocational Nurse: King Boone MD Gonorrhea Probe, TP Negative Normal NEG [facility] Comment on above: Result Comment: [...] target. Performed By: #### C YTCGP #### [facility] [address] [place], [place] [id number] Licensed Vocational Nurse: King Boone MD HPV DNA High Riskon 05-05-20 20 HPV Interp Normal [facility] Comment on above: Result Comment: [...] purposes. Performed By: #### H PVH #### [address] [address] Licensed Vocational Nurse: King Boone MD HPV Type 16 Not Detected [facility] Comment on above: Performed By: #### H PVH #### [address] [address] Licensed Vocational Nurse: King Boone MD HPV Type 18 Not Detected [facility] Comment on above: Performed By: #### H PVH #### [address] [address] Licensed Vocational Nurse: King Boone MD Other High Risk HPV Not Detected Normal [facility] Comment on above: Performed By: #### H PVH #### [address] [address] Licensed Vocational Nurse: King Boone MD HPV Sample .THIN PREP [facility] Comment on above: Performed By: #### H PVH #### [address] [address] Licensed Vocational Nurse: King Boone MD Source .ENDOCERVIX Normal [facility] Comment on above: Performed By: #### H PVH #### [address] [id number] Licensed Vocational Nurse: King Boone MD Otheron 05-04-2020 Direct Exam Negative [place] VAGINITIS DNA PROBEon 2019 Direct Exam Positive Abnormal [place] Direct Exam Method of testing is a DNA probe intended for detection and identification of Diane species, Gardnerella vaginalis, and Trichomonas vaginalis nucleic acid in vaginal fluid specimens from patients with symptoms of vaginitis/vaginosis. [place] Interpretation and review of laboratory results Abnormal [place] Special Requests NOT REPORTED [place] Specimen Description .VAGINAL SWAB [place] Vaginitis DNA Probeon 2019 Vaginitis DNA [...] vaginitis/vaginosis. Report Status FINAL 05/04/2020 Normal [facility] Comment on above: Performed By: #### V AGDNA #### [facility] [address] [place], [place] [id number] Licensed Vocational Nurse: King Boone MD Cytologyon 05-03-2020 Cytology (NOTE) INTERPRETATION Endocervical material, (Thin prep vial, Imaging-assisted review): Specimen Adequacy: Satisfactory for evaluation. - Endocervical/transfor mation zone component present. Descriptive Diagnosis: Negative for intraepithelial lesion or malignancy. Shift in ray suggestive of bacterial vaginosis. Comments: High Risk HPV testing was ordered. Senior [employer] Developer: JAYLIN Higgins(ASCP) Electronically Signed Out ana/05/07/2020 Procedure/Addendum [...] GYNECOLOGIC CYTOLOGY REPORT Patient Name: VY MCKEON [facility] Rec: [id number] Path Number: [id number] [facility] ANATOMIC PATHOLOGY [address] [place] [phone] [facility] Comment on above: Performed By: #### P PPVP #### [facility] [address] [place] [id number] Licensed Vocational Nurse: King Boone MD Vital Signs Date Time Vital Sign Value Performing Clinician Facility 01-21-2024 11:59-0400 Body height 170.2 cm Ana Peoples MD Work Phone: [facility] 01-21-2024 11:59-0400 Body mass index (BMI) [Ratio] 30.07 kg/m2 Ana Peoples MD Work Phone: [facility] 01-21-2024 11:59-0400 Body weight 87.1 kg Ana Peoples MD Work Phone: [facility] 01-21-2024 11:59-0400 Diastolic blood pressure 75 mm[Hg] Ana Peoples MD Work Phone: [facility] 01-21-2024 11:59-0400 Heart rate 108 /min Ana Peoples MD Work Phone: [facility] 01-21-2024 11:59-0400 Systolic blood pressure 125 mm[Hg] Ana Peoples MD Work Phone: [facility] 01-21-2024 11:02-0400 Body height 170.2 cm Ana Peoples MD Work Phone: [facility] 01-21-2024 11:02-0400 Body mass index (BMI) [Ratio] 30.07 kg/m2 Ana Peoples MD Work Phone: [facility] 01-21-2024 11:02-0400 Body weight 87.09 kg Ana Peoples MD Work Phone: [facility] 01-04-2024 14:31-0400 Body temperature 97.11 [degF] Fransico Sharp MD Work Phone: [facility] 01-04-2024 14:31-0400 Diastolic blood pressure 83 mm[Hg] Fransico Sharp MD Work Phone: [facility] 01-04-2024 14:31-0400 Heart rate 94 /min Fransico Sharp MD Work Phone: [facility] 01-04-2024 14:31-0400 Respiratory rate 20 /min Fransico Sharp MD Work Phone: [facility] 01-04-2024 14:31-0400 SaO2% (BldA) [Mass fraction] 99 % Fransico Sharp MD Work Phone: [facility] 01-04-2024 14:31-0400 Systolic blood pressure 148 mm[Hg] Fransico Sharp MD Work Phone: [facility] 12-17-2023 13:42-0400 Body height 170.2 cm Freddie DAVILA Work Phone: [facility] 12-17-2023 13:42-0400 Body mass index (BMI) [Ratio] 29.47 kg/m2 Freddie Delgado DIRECTOR OF PRODUCT MARKETING-[employer] Work Phone: [facility] 12-17-2023 13:42-0400 Body temperature 98.71 [degF] Freddie Delgado DIRECTOR OF PRODUCT MARKETING-[employer] Work Phone: [facility] 12-17-2023 13:42-0400 Body weight 85.37 kg Freddie Delgado DIRECTOR OF PRODUCT MARKETING-[employer] Work Phone: [facility] 12-17-2023 13:42-0400 Diastolic blood pressure 80 mm[Hg] Freddie Delgado DIRECTOR OF PRODUCT MARKETING-[employer] Work Phone: [facility] 12-17-2023 13:42-0400 Heart rate 86 /min Freddie Delgado DIRECTOR OF PRODUCT MARKETING-[employer] Work Phone: [facility] 12-17-2023 13:42-0400 SaO2% (BldA) [Mass fraction] 96 % Freddie Delgado DIRECTOR OF PRODUCT MARKETING-[employer] Work Phone: [facility] 12-17-2023 13:42-0400 Systolic blood pressure 128 mm[Hg] Freddie Delgado DIRECTOR OF PRODUCT MARKETING-[employer] Work Phone: [facility] 11-12-2023 13:13-0500 Body mass index (BMI) [Ratio] 28.47 kg/m2 Dionne BRAN Work Phone: [facility] 11-12-2023 13:13-0500 Body weight 82.46 kg Dionne BRAN Work Phone: [facility] 11-12-2023 13:13-0500 Diastolic blood pressure 72 mm[Hg] Dionne BRAN Work Phone: [facility] 11-12-2023 13:13-0500 Systolic blood pressure 114 mm[Hg] Dionne BRAN Work Phone: [facility] 05-29-2023 13:25-0400 Body height 170.18 cm Shayla Caseymond Other [employer] Other 05-29-2023 13:25-0400 Body mass index (BMI) [Ratio] 28.22 kg/m2 Shayla Tori Other [employer] Other 05-29-2023 13:25-0400 Body temperature 97.8 [degF] Shayla Tori Other [employer] Other 05-29-2023 13:25-0400 Body weight 81.74 kg Shayla Tori Other [employer] Other 05-29-2023 13:25-0400 Diastolic blood pressure 79 mm[Hg] Shayla Tori Other [employer] Other 05-29-2023 13:25-0400 Respiratory rate 18 /min Shayla Tori Other [employer] Other 05-29-2023 13:25-0400 SaO2% (BldA) [Mass fraction] 96 % Shayla Tori Other [employer] Other 05-29-2023 13:25-0400 Systolic blood pressure 127 mm[Hg] Shayla Tori Other [employer] Other 03-19-2023 14:37-0400 Diastolic blood pressure 69 mm[Hg] TISSUE COORDINATOR-C Shayla Tori Work Phone: [facility] 03-19-2023 14:37-0400 Heart rate 76 /min TISSUE COORDINATOR-C Shayla Tori Work Phone: [facility] 03-19-2023 14:37-0400 Respiratory rate 16 /min TISSUE COORDINATOR-C Shayla Tori Work Phone: [facility] 03-19-2023 14:37-0400 SaO2% (BldA) [Mass fraction] 96 % TISSUE COORDINATOR-C Shayla Valle Work Phone: [facility] 03-19-2023 14:37-0400 Systolic blood pressure 119 mm[Hg] TISSUE COORDINATOR-C Shayla Valle Work Phone: [facility] 03-19-2023 12:18-0400 Body height 170.18 cm TISSUE COORDINATOR-C Shayla Valle Work Phone: [facility] 03-19-2023 12:18-0400 Body temperature 97.9 [degF] TISSUE COORDINATOR-C Shayla Valle Work Phone: [facility] 03-19-2023 12:18-0400 Body weight 84.82 kg TISSUE COORDINATOR-C Shayla Valle Work Phone: [facility] 02-12-2023 14:30-0400 Body height 170.18 cm Yoel Jarrett Other [employer] Other 02-12-2023 14:30-0400 Body mass index (BMI) [Ratio] 30.54 kg/m2 Yoel Jarrett Other [employer] Other 02-12-2023 14:30-0400 Body weight 88.45 kg Yoel Jarrett Other [employer] Other 02-12-2023 14:30-0400 Diastolic blood pressure 80 mm[Hg] Yoel Jarrett Other [employer] Other 02-12-2023 14:30-0400 Systolic blood pressure 127 mm[Hg] Yoel Jarrett Other [employer] Other 02-07-2023 10:00-0400 Body height 170.18 cm Shayla Valle Other [employer] Other 02-07-2023 10:00-0400 Body mass index (BMI) [Ratio] 30.54 kg/m2 Shayla Valle Other [employer] Other 02-07-2023 10:00-0400 Body temperature 97.9 [degF] Shayla Valle Other [employer] Other 02-07-2023 10:00-0400 Body weight 88.45 kg Shayla Valle Other [employer] Other 02-07-2023 10:00-0400 Respiratory rate 18 /min Shayla Valle Other [employer] Other 02-07-2023 10:00-0400 SaO2% (BldA) [Mass fraction] 97 % Shayla Valle Other [employer] Other 05-03-2020 11:41-0400 BMI (Body Mass Index) 24.5 kg/m2 Sally Jean-Pierre [employer] [facility] Work Phone: 05-03-2020 11:41-0400 Body Temperature 96.3 [degF] [facility] [employer] [facility] Work Phone: 05-03-2020 11:41-0400 Body weight 70.9 kg [facility] [employer] [facility] Work Phone: 05-03-2020 11:41-0400 BP Diastolic 80 mm[Hg] [facility] Work Phone: 05-03-2020 11:41-0400 BP Systolic 120 mm[Hg] [facility] Work Phone: 05-03-2020 11:41-0400 BSA (Body Surface Area) 1.82 m2 [facility] Work Phone: 05-03-2020 11:41-0400 Height 170.18 cm [facility] Work Phone: 05-03-2020 11:41-0400 Pulse (Heart Rate) 86 /min [facility] Work Phone: 05-03-2020 11:41-0400 Pulse Oximetry 93 % [facility] Work Phone: 05-03-2020 11:41-0400 Respiratory Rate 18 /min [facility] Work Phone: 04-08-2020 08:37-0400 BMI (Body Mass Index) 24.3 kg/m2 [facility] Work Phone: 04-08-2020 08:37-0400 Body Temperature 99 [degF] [facility] Work Phone: 04-08-2020 08:37-0400 Body weight 70.4 kg [facility] Work Phone: 04-08-2020 08:37-0400 BP Diastolic 80 mm[Hg] [facility] Work Phone: 04-08-2020 08:37-0400 BP Systolic 110 mm[Hg] [facility] Work Phone: 04-08-2020 08:37-0400 BSA (Body Surface Area) 1.82 m2 [facility] Work Phone: 04-08-2020 08:37-0400 Height 170.18 cm [facility] Work Phone: 04-08-2020 08:37-0400 Pulse (Heart Rate) 82 /min Sally Jean-Pierre [facility] Work Phone: 04-08-2020 08:37-0400 Pulse Oximetry 98 % Sally [facility] Work Phone: 04-08-2020 08:37-0400 Respiratory Rate 18 /min Sally [facility] Work Phone: 03-29-2020 09:52-0400 Body height 170.18 cm Sally Morejon [facility] Work Phone: [facility] Work Phone: Comment on above: self 03-29-2020 09:52-0400 Body mass index (BMI) [Ratio] 23.5 kg/m2 Sally Morejon [facility] Work Phone: [facility] Work Phone: Comment on above: self 03-29-2020 09:52-0400 Body surface area Derived from formula 1.79 m2 Sally Morejon [facility] Work Phone: [facility] Work Phone: Comment on above: self 03-29-2020 09:52-0400 Body weight 68.04 kg Sally Morejon [employer] Work Phone: [facility] Work Phone: Comment on above: self 10-14-2019 08:30-0500 BMI (Body Mass Index) 24.1 kg/m2 Sally [facility] Work Phone: 10-14-2019 08:30-0500 Body Temperature 98.5 [degF] Sally [facility] Work Phone: 10-14-2019 08:30-0500 Body weight 69.76 kg Sally [facility] Work Phone: 10-14-2019 08:30-0500 BP Diastolic 78 mm[Hg] [facility] Work Phone: 10-14-2019 08:30-0500 BP Systolic 132 mm[Hg] Sally [facility] Work Phone: 10-14-2019 08:30-0500 BSA (Body Surface Area) 1.81 m2 Sally [facility] Work Phone: 10-14-2019 08:30-0500 Height 170.18 cm [facility] Work Phone: 10-14-2019 08:30-0500 Pulse (Heart Rate) 88 /min [facility] Work Phone: 10-14-2019 08:30-0500 Pulse Oximetry 98 % [facility] Work Phone: 10-14-2019 08:30-0500 Respiratory Rate 18 /min [facility] Work Phone: 10-14-2019 08:30-0500 SaO2% (BldA) [Mass fraction] 98 % Sally [facility] Work Phone: [facility] Work Phone: 09-04-2019 13:52-0500 BMI (Body Mass Index) 22.9 kg/m2 [facility] Work Phone: 09-04-2019 13:52-0500 Body Temperature 98.5 [degF] [facility] Work Phone: 09-04-2019 13:52-0500 Body weight 66.23 kg [facility] Work Phone: 09-04-2019 13:52-0500 BP Diastolic 90 mm[Hg] [facility] Work Phone: 09-04-2019 13:52-0500 BP Systolic 122 mm[Hg] [facility] Work Phone: 09-04-2019 13:52-0500 BSA (Body Surface Area) 1.77 m2 [facility] Work Phone: 09-04-2019 13:52-0500 Height 170.18 cm Sally [facility] Work Phone: 09-04-2019 13:52-0500 Pulse (Heart Rate) 98 /min [facility] Work Phone: 09-04-2019 13:52-0500 Pulse Oximetry 98 % [facility] Work Phone: 09-04-2019 13:52-0500 Respiratory Rate 18 /min [facility] Work Phone: 09-04-2019 13:52-0500 SaO2% (BldA) [Mass fraction] 98 % Sally [facility] Work Phone: [facility] Work Phone: 08-19-2019 09:32-0500 BMI (Body Mass Index) 23.2 kg/m2 [facility] Work Phone: 08-19-2019 09:32-0500 Body Temperature 98 [degF] [facility] Work Phone: 08-19-2019 09:32-0500 Body weight 67.31 kg [facility] Work Phone: 08-19-2019 09:32-0500 BP Diastolic 80 mm[Hg] [facility] Work Phone: 08-19-2019 09:32-0500 BP Systolic 120 mm[Hg] [facility] Work Phone: 08-19-2019 09:32-0500 BSA (Body Surface Area) 1.78 m2 [facility] Work Phone: 08-19-2019 09:32-0500 Height 170.18 cm [facility] Work Phone: 08-19-2019 09:32-0500 Pulse (Heart Rate) 90 /min Sally [facility] Work Phone: 08-19-2019 09:32-0500 Pulse Oximetry 98 % Sally [facility] Work Phone: 08-19-2019 09:32-0500 Respiratory Rate 18 /min Sally [facility] Work Phone: 08-19-2019 09:32-0500 SaO2% (BldA) [Mass fraction] 98 % Sally Morejon [facility] Work Phone: [facility] Work Phone: 07-28-2019 11:31-0400 BMI (Body Mass Index) 22.7 kg/m2 Sally [facility] Work Phone: 07-28-2019 11:31-0400 Body Temperature 98.8 [degF] Sally [facility] Work Phone: 07-28-2019 11:31-0400 Body weight 65.77 kg [facility] Work Phone: 07-28-2019 11:31-0400 BP Diastolic 84 mm[Hg] Sally [facility] Work Phone: 07-28-2019 11:31-0400 BP Systolic 132 mm[Hg] [facility] Work Phone: 07-28-2019 11:31-0400 BSA (Body Surface Area) 1.76 m2 [facility] Work Phone: 07-28-2019 11:31-0400 Height 170.18 cm [facility] Work Phone: 07-28-2019 11:31-0400 Pulse (Heart Rate) 65 /min [facility] Work Phone: 07-28-2019 11:31-0400 Pulse Oximetry 97 % [facility] Work Phone: 07-28-2019 11:31-0400 Respiratory Rate 18 /min Sally Morejon [facility] Work Phone: 07-28-2019 11:310400 SaO2% (BldA) [Mass fraction] 97 % Sally Morejon [employer] Work Phone: [facility] Work Phone: Encounters Encounter Date Encounter Type Care Provider Facility Start: 02-26-2024 Telephone encounter Daisy Douglass Hematology/Oncology Comment on above: Results - Ct; Patien t Update Start: 02-22-2024 End: 02-22-2024 ambulatory [facility] Facility:[facility] Start: 02-20-2024 End: 02-20-2024 ambulatory [facility] Facility:[facility] Start: 02-13-2024 End: 02-15-2024 ambulatory [facility] Start: 02-11-2024 End: 02-11-2024 ambulatory ELIAZAR CASTANEDA Not Available Start: 01-29-2024 End: 01-29-2024 [facility] Start: 01-28-2024 End: 01-28-2024 ambulatory DIONNE BARNHART Not Available Start: 01-25-2024 Telephone encounter Fransico kulkarni MD Work Phone: Plastic Surgery Comment on above: Appointment Start: 01-25-2024 End: 01-26-2024 [facility] Start: 01-23-2024 ambulatory Usman bianchi MD [...] Start: 01-14-2024 End: 01-14-2024 ambulatory [facility] Start: 01-10-2024 Telephone encounter Historical [facility] Start: 01-09-2024 Telephone encounter Fransico kulkarni MD Work Phone: Plastic Surgery Start: 01-08-2024 End: 01-08-2024 ambulatory ELIAZAR CASTANEDA Not Available Start: 01-04-2024 End: 01-05-2024 ambulatory FREDDIE DELGADO Facility:[facility] Start: 01-04-2024 End: 01-05-2024 ambulatory Fransico Sharp MD Work Phone: Plastic Surgery Comment on above: Malignant melanoma o f skin (HCC) (Primary Dx) Start: 01-04-2024 End: 01-05-2024 Patient encounter procedure Fransico hSarp MD Work Phone: [facility] Start: 12-26-2023 End: 12-27-2023 ambulatory FREDDIE DELGADO Facility:[facility] Start: 12-21-2023 Chart abstracting Usman rincon MD Work Phone: Hematology/Oncology Start: 12-17-2023 End: 12-17-2023 ambulatory FREDDIEAMELIA DELGADO [facility] Start: 12-17-2023 End: 12-17-2023 Office outpatient visit 10 minutes Freddie Delgado DIRECTOR OF PRODUCT MARKETING-OFFICE MACHINES WIRER Work Phone: [facility] Comment on above: Nausea and vomiting, unspecified vomiting type (Primary Dx); Psychophysiological insomnia Start: 12-10-2023 End: 12-10-2023 ambulatory ELIAZAR CASTANEDA Not Available Start: 12-07-2023 Documentation procedure Chris Antonio [facility] Work Phone: Maternal- Medicine at [facility] Comment on above: Outgoing Ca ll Start: 11-20-2023 End: 11-21-2023 Orders Only Roshni Rodriguez RN [facility] Comment on above: Placenta previa ante in second trimester (Primary Dx); Multigravida of advanced maternal age in second trimester Start: 11-20-2023 End: 11-20-2023 Office outpatient visit 15 minutes Fidencio Rojas MD Work Phone: Maternal Medicine [place] Comment on above: 20 weeks gestation o f (Primary Dx); Placenta previa antepartum in second trimester; Advanced maternal age in multigravida, second trimester Start: 11-13-2023 Orders Only Juan Ramon Rodríguez [facility] rnal- Medicine at [facility] Comment on above: Multigravida of adva nced maternal age in second trimester; Family history of autism; Family history of mental disorder Start: 11-12-2023 End: 11-12-2023 ambulatory DIONNE BARNHART Not Available Start: 11-12-2023 Documentation procedure Chris Antonio [facility] Work Phone: Maternal- Medicine at [facility] Comment on above: Outgoing Ca ll Start: [...] Antonio LC Work Phone: Maternal- Medicine at [facility] Comment on above: Incoming Ca ll Start: 10-23-2023 Orders Only Angela Guzman [employer] Mat ernal- Medicine at [facility] Comment on above: Multigravida of adva nced maternal age in second trimester (Primary Dx); Family history of autism; Family history of mental disorder Start: 10-22-2023 End: 10-22-2023 ambulatory ELIAZAR R NORMA [facility] Start: 10-22-2023 End: 10-22-2023 Telemedicine consultation with patient Katarina Antonio LC Work Phone: Maternal- Medicine at [facility] Comment on above: Multigravida of adva nced maternal age in second trimester (Primary Dx); Family history of autism; Family history of mental disorder Start: 10-08-2023 End: 10-08-2023 ambulatory ELIAZAR NORMA Not Available Start: 08-30-2023 End: 08-30-2023 ambulatory ELIAZAR NORMA Not Available Start: 05-29-2023 End: 05-29-2023 ambulatory Shayla Valle Other [place] Other Start: 05-29-2023 Office outpatient vi sit 15 minutes Shayla Valle [facility] Start: 03-19-2023 End: 03-19-2023 ambulatory NON STAFF Facility:[facility] Start: 03-19-2023 End: 03-19-2023 Admission to same day surgery center TISSUE COORDINATOR-C Shayla Valle Work Phone: [facility] Work Phone: Start: 03-19-2023 End: 03-19-2023 ambulatory NON STAFF [facility] Work Phone: Start: 02-12-2023 End: 02-12-2023 ambulatory Yoel Jarrett Other [place] Other Start: 02-12-2023 Office outpatient ne w 30 minutes Yoel Jarrett [facility] Start: 02-09-2023 End: 02-10-2023 ambulatory PRADEEP COULTER Facility:[facility] Start: 02-07-2023 Office outpatient ne w 20 minutes Shayla Valle [facility] Start: 02-07-2023 End: 02-07-2023 ambulatory Shayla Tori [facility] Other Start: 02-07-2023 End: 02-07-2023 Patient encounter procedure TISSUE COORDINATOR-C Shayla Tori Work Phone: [facility] Work [...] laboratory examination DR ELIAZAR CASTANEDA . [facility] Start: 05-19-2022 End: 05-20-[address] ELIAZAR CASTANEDA . Facility:[facility] Start: 05-19-2022 End: 05-20-2022 Encounter for preprocedural laboratory examination DR ELIAZAR CASTANEDA . Facility:[facility] Start: 05-18-2022 End: 05-19-[address] ELIAZAR CASTANEDA . Facility:[facility] Start: 05-03-2022 End: 05-04-[address] ELIAZAR CASTANEDA . Facility:[facility] Start: 05-03-2020 End: 05-03-2020 ambulatory Candace Grossman Work Phone: [facility] Work Phone: Start: 05-03-2020 End: 05-04-2020 Patient encounter procedure CANDACE GROSSMAN [facility] Start: 05-03-2020 End: 05-03-2020 Subsequent hospital visit by physician ARMANI SAUCEDOLICO [facility] Start: 04-08-2020 End: 04-08-2020 ambulatory Linnea Escobar Work Phone: [facility] Work Phone: Start: 03-29-2020 End: 03-29-2020 General Emilee Sanford Work Phone: [facility] Work Phone: Start: 03-29-2020 End: 03-29-2020 Telemedicine consultation with patient Candace Grossman Work Phone: [facility] Work Phone: Start: 01-08-2020 End: 01-08-2020 Telemedicine consultation with patient Candace Grossman Work Phone: [facility] Work Phone: Start: 12-30-2019 End: 12-30-2019 Patient encounter procedure Emilee Sanford Work Phone: [facility] Work Phone: Start: 12-30-2019 End: 12-30-2019 Telemedicine consultation with patient Candace Grossman Work Phone: [facility] Work Phone: Start: 10-14-2019 End: 10-14-2019 Established patient Bobbi Colon Work Phone: [facility] Work Phone: Start: 09-04-2019 End: 09-04-2019 Established patient Bobbi Colon Work Phone: [facility] Work Phone: Start: 08-19-2019 End: 08-19-2019 Nursing evaluation of patient and report Candace Grossman Work Phone: [facility] Work Phone: Start: 07-28-2019 End: 07-28-2019 Established patient Bobbi Colon Work Phone: [facility] Work Phone: Start: 07-28-2019 End: 07-28-2019 New patient Candace Grossman Work Phone: [facility] Work Phone: Start: 08-13-2017 End: 08-14-2017 Ambulatory Upender Gehlot [facility] Procedures Date Procedure Procedure Detail Performing Clinician Start: 01-21-2024 Us preg uterus after 1st trimest 10/01 gestation Ana Peoples MD Work Phone: Start: 11-12-2023 Urnls dip stick/tabl et rgnt non-auto w/o micrscp Dionne BRAN Work Phone: Start: 11-12-2023 URETHRITIS/DISCHARGE PLUS VAGINITIS (HTRX) Dionne BRAN Work Phone: Start: 10-25-2023 UNLISTED LAB TEST Miriam Antonio [facility] Work Phone: Start: 09-10-2023 Adult depression scr eening assessment Katarina Antonio [facility] Work Phone: Start: 03-19-2023 Esophagogastroduodenoscopy TISSUE COORDINATOR-C Shayla Valle Work Phone: Start: 03-01-2023 Microscopic observat ion [Identifier] in Cervix by Cyto stain Dionne BRAN Work Phone: Start: 02-07-2023 X-ray of right knee TISSUE COORDINATOR- C Shayla Valle Work Phone: Start: 05-03-2020 Obtaining screen pap smear Candace Grossman Work Phone: Start: 05-03-2020 Iaad ia chlamydia trachomatis CANDACE GROSSMAN Start: 05-03-2020 Iadna diane specie s direct probe tq CANDACE GROSSMAN Start: 05-03-2020 Iadna diane specie s direct probe tq Candace Grossman Work Phone: Start: 05-03-2020 Microscopic observat ion [Identifier] in Cervix by Cyto stain Katarina Antonio [facility] Work Phone: Start: 04-08-2020 Diast bp 80-89 [...] Syst bp lt 130 mm hg monico Dianelys Work Phone: Start: 08-19-2019 Urine test visual color cmprsn meths Candace Grossman Work Phone: Start: 07-28-2019 Alcohol consumption screening Audit Alcohol Use Disorders Identification Test ___(0-40) Candace Grossman [employer] Work Phone: Start: 07-28-2019 ANXIETY DISORDER NOS [...] Phone: Start: 07-28-2019 RESPIRATORY DISORDERS C assalvaro Fraustoer Start: 07-28-2019 Surgical procedure Chela john Jean-Pierre Start: 07-28-2019 Syst bp ge 130 - 139mm hg Candace Grossman Work Phone: NEGATED: Highlighted row has not occurred!Start: 04-08-2020 currently nursing Sally Jean-Pierre NEGATED: Highlighted row has not occurred!Start: 07-28-2019 currently Sally Morejon Plan of Treatment Date Care Activity Detail Author Start: 2048 RSV Vaccine (1 - 1-d ose 60+ series) RSV Vaccine (1 - 1-dose 60+ series) [facility] Start: 01-02-2034 Urine microalbumin profile DTaP,Tdap,Td Vaccine (7 - Td or Tdap) [facility] Start: 03-12-2028 Screening for malign ant neoplasm of cervix HPV/Cotest [facility] Start: 03-01-2028 Screening for malign ant neoplasm of cervix [facility] Start: 01-25-2028 DTaP,Tdap and Td Vaccines (6 - Td or Tdap) DTaP,Tdap and Td Vaccines (6 - Td or Tdap) [facility] Start: 01-25-2028 Urine microalbumin profile DTaP,Tdap,Td Vaccine (2 - Td or Tdap) [facility] Start: 12-16-2024 Adult BMI Screening Adult BMI Screen ing [facility] Start: 12-16-2024 Tobacco Screening Tobacco Screening [facility] Start: 10-23-2024 End: 10-23-2024 Unlisted Lab Test Unlisted Lab Test Lab Routine Multigravida of advanced maternal age in second trimester Family history of autism Family history of mental disorder Expected: 10/23/2024 (Approximate), Expires: 10/23/2024 [facility] Work Phone: Comment on above: Expected: 10/23/2024 (Approximate), Expires: 10/23/2024 Start: 09-10-2024 Adult BMI Screening Adult BMI Screen ing [facility] Start: 09-10-2024 Depression Screening Depression Scre ening [facility] Start: 09-10-2024 Tobacco Screening Tobacco Screening [facility] Start: 03-17-2024 End: 03-17-2024 Admission to same day surgery center 03/17/2024 11:30 AM EDT Visit (SP) Office Plastic Surgery [address] [place] [address] Tana Cervantes, ABHI.OFFICE MACHINES WIRER [address] [place] [address] post op Plastic Surgery Comment on above: [...] 10:45 AM EDT Hospital Encounter Admitting [address] [place] [address] Fransico Sharp MD [address] [place] [address] Malignant melanoma of skin (HCC) [C43.9] Admitting Comment on above: Malignant melanoma o f skin (HCC) [C43.9] Start: 03-14-2024 End: 03-14-2024 Patient encounter procedure 03/14/2024 8:30 AM EDT Appointment Molecular Imaging [address] [place] [address] MELANOMA-NM LYMPH NODE IMAGING Molecular Imaging Comment on above: MELANOMA-NM LYMPH NO DE IMAGING Start: 03-07-2024 End: 03-07-2024 Anesthesia consultation 03/07/2024 1:20 PM EDT PAT Pre Anesthesia [address] [place] [address] 9, Pacc Main [address] [place] [id number] pacc Pre Anesthesia Comment on above: pacc Start: 02-22-2024 End: 02-22-2024 Patient encounter procedure 02/22/2024 10:45 AM EDT Appointment Radiology Pet CT [address] [address] ct chest and stn w Radiology Pet CT Comment on above: ct chest and stn w Start: 02-20-2024 End: 02-20-2024 ambulatory 02/20/2024 3:00 PM EDT Results Only [facility] [address] [place] [address] [facility] Start: 02-20-2024 End: 01-22-2025 CBC W Auto Differential panel - Blood COMPLETE BLOOD COUNT AND DIFFERENTIAL Lab Routine Malignant melanoma of skin (HCC) Expected: 02/20/2024 (Approximate), Expires: 01/22/2025 [facility] Comment on above: Expected: 02/20/2024 (Approximate), Expires: 01/22/2025 Start: 02-20-2024 End: 01-22-2025 Comprehensive metabolic 2000 panel - Serum or Plasma COMPREHENSIVE METABOLIC PANEL Lab Routine Malignant melanoma of skin (HCC) Expected: 02/20/2024 (Approximate), Expires: 01/22/2025 [facility] Comment on above: Expected: 02/20/2024 (Approximate), Expires: 01/22/2025 Start: 02-20-2024 End: 02-21-2025 CT Chest W contrast IV CT CHEST W IVCON Radiology Routine Malignant melanoma of skin (HCC) Expected: 02/20/2024 (Approximate), Expires: 02/21/2025 [facility] Comment on above: Expected: 02/20/2024 (Approximate), Expires: 02/21/2025 Start: 02-20-2024 End: 02-21-2025 CT Neck W contrast IV CT NECK SOFT TISSUE W IVCON Radiology Routine Malignant melanoma of skin (HCC) Expected: 02/20/2024 (Approximate), Expires: 02/21/2025 [facility] Work Phone: Comment on above: Expected: 02/20/2024 (Approximate), Expires: 02/21/2025 Start: 02-20-2024 End: 01-22-2025 Lactate dehydrogenase [Enzymatic activity/volume] in Serum or Plasma LACTATE DEHYDROGENASE Lab Routine Malignant melanoma of skin (HCC) Expected: 02/20/2024 (Approximate), Expires: 01/22/2025 [facility] Comment on above: Expected: 02/20/2024 (Approximate), Expires: 01/22/2025 Start: 02-19-2024 Subsequent hospital visit by physician 02/19/2024 Hospital Encounter Surgery Center [address] [id number] Fransico Sharp MD [address] [place] [address] Malignant melanoma of skin (HCC) [...] Start: 02-12-2024 End: 02-12-2024 Patient encounter procedure [facility] Comment on above: MELANOMA-NM LYMPH NO DE IMAGING Start: 01-14-2024 End: 01-14-2024 Telemedicine consultation with patient 01/14/2024 10:15 AM EDT Telemedicine [facility] [address] [place] [address] [address] [place] [address] LobitoGurjit MD [address] [facility] [place] [address] [facility] Start: 12-17-2023 End: 12-17-2023 Patient encounter procedure 12/17/2023 1:45 PM EDT Office Visit [facility] [address] [place] [address] Freddie Delgado, DIRECTOR OF PRODUCT MARKETING-OFFICE MACHINES WIRER [address], [address] [place] [address] [facility] Start: 12-10-2023 End: 12-10-2023 Patient encounter procedure 12/10/2023 2:20 PM EDT Routine [facility] [address] [place] [id number] Eliazar Castaneda DO [address] [place] [address] [facility] Start: 11-20-2023 End: 11-20-2023 Patient encounter procedure 11/20/2023 8:00 AM EST Appointment [facility] [address] [place] [phone] [facility] Start: 11-12-2023 End: 11-12-2024 US for US OB ANATOMY SINGLE W US OB CERVICAL LENGTH Imaging Routine Screening, , for anatomic survey Expected: 11/12/2023 (Approximate), Expires: 11/12/2024 [facility] Comment on above: Expected: 11/12/2023 (Approximate), Expires: 11/12/2024 Start: 10-01-2023 Behavioral Health Screening Behavioral Health Screening [facility] Start: 10-01-2023 Depression Assessment Depression Ass essment [facility] Start: 06-01-2023 Covid-19 Vaccine ( season) Covid-19 Vaccine ( season) [facility] Start: 06-01-2023 Influenza vaccination P [facility] Start: 05-03-2023 Screening for malign ant neoplasm of cervix Pap Smear [facility] Start: 03-19-2023 [facility] Start: 06-02-2020 [facility] Work Phone: Start: 06-01-2020 Influenza vaccination Flu vaccine (# 1) [facility] Start: 12-02-2019 Dental Comp Exam [facility] Work Phone: Start: 11-17-2019 [facility] Work Phone: Start: 10-21-2019 Lipid 1996 panel Health [facility] Work Phone: Start: 10-14-[address] [facility] Work Phone: Comment on above: Note: Please make a referral to: Start: 09-16-2019 Dental Comp Exam [facility] Work Phone: Start: 08-25-2019 Medical Establ ished Patient [facility] Work Phone: Start: 08-20-2019 Urine Pregnanc y Test, In House Health [facility] Work Phone: Start: 2018 Screening for malign ant neoplasm of cervix HPV Testing [facility] Start: 2009 Screening for malign ant neoplasm of cervix [facility] Start: 2007 DTaP/Tdap/Td vaccine (1 - Tdap) DTaP/Tdap/Td vaccine (1 - Tdap) [facility] Start: 2007 Hepatitis B Vaccine (1 of 3 - 19+ 3-dose series) Hepatitis B Vaccine (1 of 3 - 19+ 3-dose series) [facility] Start: 2006 Adult BMI Follow Up Plan Adult BMI Follow Up Plan [facility] Start: 2006 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 Start: 2006 Spirometry Spirometry [facility] Start: 2003 HIV screening HIV screen [place] Start: 1989 Varicella vaccine (1 of 2 - 2-dose childhood series) Varicella vaccine (1 of 2 - 2-dose childhood series) [place] Adjt tis trns/reargm t f/c/c/m/n/a/g/h/f 10sqcm/< TRANSFER / REARRANGEMENT ADJACENT TISSUE FACE/NECK DEFECT 10 SQ CM OR LESS Malignant melanoma of skin (HCC) [facility] A60 Alpha fetoprotein, maternal Alpha fetoprotein, maternal Lab Routine Second trimester Ordered: 11/12/2023 [facility] Work Phone: Comment on above: Ordered: 11/12/2023 Bx/exc lymph node op en deep cervical node BIOPSY NODE CERVICAL NECK Malignant melanoma of skin (HCC) [facility] A60 End: 05-03-2020 C.trachomatis N.gonorrhoeae DNA, Thin Prep C.trachomatis N.gonorrhoeae DNA, Thin Prep Microbiology Routine Once for 1 Occurrences starting 05/03/2020 until 05/03/2020 [place] Comment on above: Once for 1 Occurrenc es starting 05/03/2020 until 05/03/2020 C.trachomatis N.gonorrhoeae DNA, Thin Prep C.trachomatis N.gonorrhoeae DNA, Thin Prep Microbiology Routine 05/03/2020 7:32 AM EDT [place] Excision malignant lesion f/e/e/n/l >4.0 cm EXCISION MALIGNANT LESION FACE OVER 4.0 CM Malignant melanoma of skin (HCC) [facility] A60 Inj radioactive trac er for id of sentinel node INJECTION PROCEDURE RADIOACTIVE TRACER FOR IDENTIFICATION OF SENTINEL NODE Malignant melanoma of skin (HCC) [facility] A60 Intraop sentinel lym ph node id w/dye injection INTRAOPERATIVE ID OF SENTINEL LYMPH NODE(S) INCL'D INJECTION OF NON-RAD DYE WHEN PERFORMED Malignant melanoma of skin (HCC) [facility] A60 End: 02-02-2025 NM Lymph node Views NM LN IMAGING MELANOMA Radiology Routine Malignant melanoma of skin (HCC) 1 Occurrences starting 01/06/2024 until 02/02/2025 [facility] Work Phone: Comment on above: 1 Occurrences starti ng 01/06/2024 until 02/02/2025 Patient Education Hiatal Hernia (DC) [facility] Work Phone: [facility] PLAST[facility] A60 Immunizations Immunization Date Immunization Notes Care Provider Maryuri gómez 05-11-2023 influenza virus vaccine, unspecified formulation Katarina Antonio [facility] Work Phone: [facility] 07-16-2022 SARS-COV-2 (COVID-19 ) vaccine, mRNA, spike protein, LNP, bivalent, PF Dionne BRAN Work Phone: [facility] 01-24-2018 tetanus toxoid, redu camden diphtheria toxoid, and acellular pertussis vaccine, adsorbed Dionne BRAN Work Phone: [facility] Payers Date Payer Category Payer Self-pay 2022 Medicaid [id number] 2019 Unknown 1 - [place] [employer] [id number] [id number]0.6.3 2017 Unknown [id number] 1988 Unknown [id number] 2.16.84 0.1.474101.3.579.2.593 1988 Unknown [id number] 2.16.84 0.1.895541.3.579.2.593 1988 Unknown [id number] 2.16.84 0.1.326289.3.579.2.593 1988 Unknown [id number] 2.16.84 0.1.752142.3.579.2.593 1988 Unknown [id number] 2.16.84 0.1.796939.3.579.2.593 1988 Unknown [id number] 2.16.84 0.1.392717.3.579.2.593 1988 Unknown [id number] 2.16.84 0.1.565402.3.579.2.593 1988 Unknown [id number] 2.16.84 0.1.470365.3.579.2.593 1988 Unknown [id number] 2.16.84 0.1.079803.3.579.2.593 1988 Unknown [id number] 2.16.8 40.1.481233.3.579.2.1285 1988 Unknown [id number] 2.16.8 40.1.578294.3.579.2.1285 1988 Unknown [id number] 2.16.8 40.1.776232.3.579.2.1285 1988 Unknown [id number] 2.16.8 40.1.705466.3.579.2.1285 1988 Unknown [id number] 2.16.8 40.1.567882.3.579.2.1285 1988 Unknown [id number] 2.16.84 0.1.515254.3.579.2.1285 1988 Unknown [id number] 2.16.84 0.1.455058.3.579.2.1258 1988 Unknown [id number] 2.16.84 0.1.820993.3.579.2.1258 1988 Unknown [id number] 2.16.84 0.1.278316.3.579.2.1258 1988 Unknown [id number] 2.16.84 0.1.630002.3.579.2.1258 1988 Unknown [id number] 2.16.84 0.1.257822.3.579.2.1258 1988 Unknown [id number] 2.16.84 0.1.896531.3.579.2.1258 1988 Unknown [id number] 2.16.840 .1.640574.3.579.2.1258 1988 Unknown [id number] 2.16.8 40.1.895396.3.579.2.1286 1988 Unknown [id number] 2.16.8 40.1.611590.3.579.2.1286 1988 Unknown [id number] 2.16.8 40.1.748630.3.579.2.1286 1959 Medicaid [id number] 2. 16.840.1.493841.19 Self-pay [id number] 2.16.840 .1.218040.3.140.1.92354.5.4 Unknown [employer] [id number] Unknown [id number] 2.16.8 40.1.620086.3.579.2.531 Unknown [id number] 2.16.8 40.1.675827.3.579.2.531 Social History Date Type Detail Facility Assertion Alcohol consumpt ion screening (procedure) [facility] Work Phone: Assertion [facility] Assertion Finding of alcoh ol intake (finding) [facility] Work Phone: Assertion Sexually active (finding) [facility] Work Phone: Assertion Gender identity finding (finding) [facility] Work Phone: Assertion Finding of sexua l orientation (finding) [facility] Work Phone: Tobacco smoking status Unknown if ever smoked [facility] Assertion Emotional stress (finding) [facility] Work Phone: Start: 1990 Sex Assigned At Not on file [facility] [place], [place] Assertion Contraception (finding) [facility] Work Phone: Start: 09-10-2023 End: 02-20-2024 [facility] Start: 1990 Sex Assigned At Female [facility] Start: 04-05-2022 End: 12-26-2023 Tobacco smoking status NHIS Never smoked tobacco [facility] Start: 04-05-2022 End: 12-26-2023 Tobacco use and exposure Smokeless tobacco non-user [facility] Start: 10-10-2023 End: 12-17-2023 Alcohol intake Ex-drinker (finding) [facility] Start: 09-10-2023 End: 02-20-2024 History of Social function [facility] How hard is it for you to pay for the very basics like food, housing, medical care, and heating Very hard [facility] Start: 07-12-2023 [facility] Start: 11-12-2023 Alcohol intake Lifetime non-d rhys (finding) [facility] Start: 03-09-2023 [facility] Start: 03-09-2023 Alcohol Comment Caffeine intak e: 1-2 cups per day coffee, pop [facility] Start: 12-26-2023 End: 01-21-2024 Alcohol intake Current drinker of alcohol (finding) [facility] NEGATED: Highlighted row Assertion He has not had 5 or more drinks in a day within the past year. [facility] Work Phone: NEGATED: Highlighted row Assertion Exposure to pollution (event) [facility] Work Phone: NEGATED: Highlighted row Assertion Tobacco user (finding) [facility] Work Phone: NEGATED: Highlighted row Assertion Current drinker of alcohol (finding) [facility] Work Phone: NEGATED: Highlighted row Assertion Finding relating to drug misuse behavior (finding) [facility] Work Phone: Goals Date Patient Goal Desired Activity /State Personal health goal Mental Status Date Assessment Result Facility Cognitive function 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 Will need a chest ct later. [facility] Work Phone: 02-26-2024 Miscellaneous Notes She texted me - CT's look good. Will need a chest ct later. Patient calling. Doesn't know how to proceed. States her oncologist is out of town and no one can read the results. States she is 35 weeks . Please call patient back to discuss. Pt calling for CT results. She is aware Dr Deshpande is out of office this week and will be in touch with his response Sunday. Louisa: Please advise Daisy Murray RN documented in this encounter [facility] 02-26-2024 Telephone encounter Note Patient calling. Doesn't know how to proceed. States her oncologist is out of town and no one can read the results. States she is 35 weeks . Please call patient back to discuss. [facility] 02-26-2024 Telephone encounter Note Pt calling for CT results. She is aware Dr Deshpande is out of office this week and will be in touch with his response Sunday. Louisa: Please advise Daisy Murray RN [facility] 02-22-2024 Note HNO ID: [id number] Author: PACHECO BOWEN RN Service: ? Author [...] DATE: February 22, 2024 TIME: 10:46 AM [facility] 02-22-2024 Note HNO ID: [id number] Author: BRANDON RDZ RT(R) Service: ? Author [...] PATIENT PRESENTS WITH AN IMPLANTABLE OR ATTACHED ASBESTOS MICROSCOPIST: No RADIOLOGY DEPARTMENT: CT; Exam(s) Completed: Chest and Neck PERIPHERAL IV DATA: Site assessment: Clean,Dry and Intact, Site disposition Discontinued SIGNED BY: RT Dante(R) February 22, 2024 11:10 AM [facility] 01-25-2024 Telephone encounter Note Pt is not able to make the appt on 02/11; amina wondering if this should be on March 14 instead? Thanks [facility] 01-25-2024 Miscellaneous Notes Pt is not able to make the appt on 02/11; amina wondering if this should be on March 14 instead? Thanks documented in this encounter [facility] 01-24-2024 Telephone encounter Note Vy is scheduled for her CT scan on 02/21 at 11am. She is scheduled for her labwork still, on Sunday, 02/19. I spoke with Vy and she is in agreement. Angela Arthur [facility] 01-24-2024 Miscellaneous Notes Vy is scheduled for her CT scan on 02/21 at 11am. She is scheduled for her labwork still, on Sunday, 02/19. I spoke with Vy and she is in agreement. Thanks, Angela Hilario Clerical: Please call pt to schedule CT [...] doesn t seem like enough time. Vy Louisa: Please advise Daisy Murray RN We won's be doing scans for 4 weeks.... that works out to be around 33 weeks gestation Does that sound right? (February 19) Thanks, louisa. Pt calls regarding CT scans. Please place orders. Thanks! Brandon Churchill RN Images from the original note were not included. documented in this encounter [facility] 01-24-2024 Telephone encounter Note Clerical: Please call pt to schedule CT scans. Brandon Churchill RN [facility] Work Phone: 01-24-2024 Telephone encounter Note It's ok to move up - but I'd want to know closer to delivery (33 weeks - 34 weeks) because then there won't be a need for additional scans later. Labs are to be done prior to CT. [facility] 01-24-2024 Telephone encounter Note Images [...] CT ahead of 02/19? Brandon Churchill RN [facility] 01-24-2024 Telephone encounter Note Is the [...] like enough time. Vy Deshpande: Please advise Daisy Murray RN [facility] 01-23-2024 Telephone encounter Note We won's be doing scans for 4 weeks.... that works out to be around 33 weeks gestation Does that sound right? (February 19) Thanks, louisa. [facility] 01-23-2024 Telephone encounter Note Pt calls regarding CT scans. Please place orders. Thanks! Brandon Churchill RN [facility] 01-22-2024 Telephone encounter Note 01/22/2024 MFM Pt called and identified ~ 12:30 pm. [...] known. All questions answered. Ana Peoples MD [facility] 01-22-2024 Miscellaneous Notes 01/22/2024 M Pt called and identified ~ 12:30 pm. [...] Ana Peoples MD documented in this encounter [facility] 01-22-2024 Note HNO ID: [id number] Author: ANA PEOPLES MD Service: ? Author [...] Skin cancer Current Assessment AND Plan 01/22/[address] [facility] Pt is a 33 year old 29w4d with a new diagnosis of malignant melanoma located above the left upper lip. Oncologist Usman Goldberg MD Surgeon Fransico Sharp MD Pts general OBGYN in [place], [place]: Eliazar Castaneda MD The plan is for wide local excision with reconstruction, which may take multiple trips to the OR. The OR plan involves radioactive tracer for sentinal node She has not been imaged for staging. She comes to [facility] today for discussion on when to [...] with more than 50% of the total smdj-rm-drrw time of the visit in counseling / coordination of care. I shared my findings and recommendations via the shared medical record or via the mail to the referring provider. Ana Peoples MD [facility] 01-22-2024 Telephone encounter Note Images from the original note were not included. [facility] 01-22-2024 History of Present illness [...] Fransico Sharp MD [facility] general [facility] in [place], [place]: Eliazar Castaneda MD The plan is for wide local excision with reconstruction, which may take multiple trips to the OR. The OR plan involves radioactive tracer for sentinal node She has not been imaged for staging. She comes to [facility] today for discussion on when to [...] will accelerate delivery depending on findings. Ana Pepoles MD Other Placenta previa antepartum in second trimester Overview 01/21/[address] [facility] Previa resolved on US today. Placenta > 2cm away from the cervix. Ana Peoples MD Other Visit Diagnoses Malignant melanoma of skin (HCC) I spent 70 minutes in the visit, with more than 50% of the total ftzo-is-wyon time of the visit in counseling / coordination of care. I shared my findings and recommendations via the shared medical record or via the mail to the referring provider. Ana Peoples MD documented in this encounter [facility] 01-18-2024 Miscellaneous Notes Called pt, [...] L Crowley MA documented in this encounter [facility] 01-10-2024 Miscellaneous Notes Companion Canine msg was sent to patient asking for call back to this coordinator to schedule MFM consultation. documented in this encounter [facility] 01-09-2024 Miscellaneous Notes Reached out to patient. Instructions provided to see a maternal medicine specialist within the [facility] per Dr. Sharp. This nurse explained that the multidisciplinary team will need frequent communications in arranging the plan of care, and staying in one healthcare system will help facilitate planning. Patient called that she is seeing Maternal Med, in her area and was questioning does she need to see one at the [facility]? She is asking for a call.. she is very nervous documented in this encounter [facility] 01-04-2024 Instructions Valerie Bedoya RN - 01/04/2024 3:21 PM EDT PLAN: - Photos taken and uploaded to chart today via JOOR - Pathology re-read to be obtained - Surgical plan is for resection of left upper lip melanoma, reconstruction with local tissue rearrangement, and a sentinel lymph node biopsy - Surgery at [facility] or [facility]. Likely plan is to wait for surgical intervention until after 36 weeks . - Pre op clearance (PACC) prior to surgery for clearance to receive general anesthesia; must be done at a [facility] location - Nuclear medicine appointment at [facility] the morning of surgery - Post op 7-10 days with Tana Cervantes APRN.OFFICE MACHINES WIRER - Consult placed to Maternal Medicine (MFM) for risk assessment and guidance: call [phone] to schedule. - Recommend regular dermatology follow-up for FBSE - Q3 months for 2 years, Q6 months for 5 years and Q1 year for the rest of his/her life Our surgical elastic knitter will contact you to set up all surgical appointments: pre op (PACC) prior to surgery, nuclear medicine the morning of surgery, surgery itself, and a post op visit about 7-10 days after surgery with the team's nurse practitioner, Tana. Follow up prior to surgical date: around 36-37 weeks or after delivery. Please notify us of MFM's recommendations. Please MyChart message or call the office with questions/concerns. documented in this encounter [facility] 12-28-2023 Note HNO ID: [id number] Author: FRANSICO SHARP MD Service: ? Author Type: Physician Type: Progress Notes Filed: 01/06/2024 09:42 Note Text: DATE: January 03, 2024 CC: New Melanoma Patient Referring Physician: Margarita Kim MD at [facility] in [place] HPI: Vy Mckeon is a 33 year [...] 400 mg by mouth. omeprazole magnesium (ACID BRICKMASON APPRENTICE, OMEPRAZOLE, ORAL) Take by mouth as directed. 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 The lesion measures 1 cm in diameter. Photos taken, see [facility] Get Images LABS: Pathology Report [...] taken and uploaded to chart today via JOOR - Pathology re-read to be obtained - Surgical plan is for resection of left upper lip melanoma, reconstruction with local tissue rearrangement, and a sentinel lymph node biopsy - Surgery at [facility] or . Likely plan is to wait for surgical intervention until after 36 weeks . - PACC prior to surgery - Nuclear medicine appointment at [facility] the (more content not included)... [facility] 12-28-2023 History of Present illness Narrative Images from the original note were not included. DATE: January 03, 2024 CC: New Melanoma Patient Referring Physician: Margarita Kim MD at [facility] [place] HPI: Vy Mckeon is a 33 year [...] 400 mg by mouth. omeprazole magnesium (ACID BRICKMASON APPRENTICE, OMEPRAZOLE, ORAL) Take by mouth as directed. 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 The lesion measures 1 cm in diameter. Photos taken, see [facility] Get Images LABS: Pathology Report [...] taken and uploaded to chart today via JOOR - Pathology re-read to be obtained - Surgical plan is for resection of left upper lip melanoma, reconstruction with local tissue rearrangement, and a sentinel lymph node biopsy - Surgery at [facility] or . Likely plan is to wait for surgical intervention until after 36 weeks . - PACC prior to surgery - Nuclear medicine appointment at [facility] the morning of surgery - Post op 7-10 days with Tana Cervantes APRN.OFFICE MACHINES WIRER - Consult placed to [facility] for risk assessment and guidance: call [phone] to schedule. - Recommend regular dermatology follow-up for FBSE - Q3 months for 2 years, Q6 months for 5 years and Q1 year for the rest of his/her life - Patient follows with OBGYN Dr. Castaneda in [place], [place] Follow up after 36 weeks of and with [facility]'s recommendations. The patient is seen and examined by Dr. Sharp and the following reflects his service. 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. While I believe this to be [...] Fransico Sharp MD documented in this encounter [facility] 12-26-2023 Note HNO ID: [id number] Author: USMAN GOLDBERG MD Service: ? Author Type: Physician Type: Progress Notes Filed: 12/27/2023 12:46 Note Text: NAME: [facility] NO.: [id number] DATE OF SERVICE: December 26, 2023 (Krystal) [...] 400 mg by mouth. omeprazole magnesium (ACID BRICKMASON APPRENTICE, OMEPRAZOLE, ORAL) Take by mouth as directed. PNV no.95/ferrous fum/folic ac ( ORAL) Take by mouth as directed. LABORATORY VALUES: WBC (k/uL) Date Value 12/26/2023 9.72 RBC (m/uL) Date Value 12/26/2023 3.99 Hemoglob (more content not included)... [facility] 12-17-2023 History of Present illness Narrative Subjective Patient ID: Vy Mckeon is a 33 y.o. female. FRANDY Mcclellan presents to the office for follow up.She was last seen with continued depression and anxiety and had stopped taking Zoloft, hydroxyzine and trazodone because she was found to be . She is 24 weeks along in her with Placenta previa. Last PEDIATRIC ORTHODONTIST visit 12/11/23 with . carrier screening result [...] not have morning sickness. Lab work from [facility] 12/10 pre-marcos visit RBC-3.72, HGB 11.2, HCT [...] normal. Behavior: Behavior normal. Assessment/Plan Follow-up with PEDIATRIC ORTHODONTIST for follow-up on hematology result showing minimally [...] for sleep. Note completed with assistance of TISSUE COORDINATOR student. GIOVANNI Darling 12/17/23 1538 documented in this encounter [facility] 12-[facility]2023 Miscellaneous Notes Disclaimer: This note is [...] legal medical record. documented in this encounter [facility] 12-17-2023 Progress note Formatting of t his [...] a part of the legal medical record. [facility] 12-07-2023 History of Present illness Narrative Summary: FOB carrier screening results Called Vy to let her know that FOB's carrier screening result for GJB2-related disorders is negative. The is low risk to be affected with this condition. Vy understood and had no additional questions. I encouraged her to reach out if anything comes up. documented in this encounter [facility] 11-20-2023 History of Present illness Narrative Video Visit via Real-time Synchronous Audiovisual Provider Location: [facility] AT [address], [facility] [[email or web address] [address] [address] Patient Location: Other Patient Location Camera Operator: None Video Visit Consent Statement: I [...] that there are some limitations compared to htxp-uk-vbbs evaluations. We elected to proceed. REASON FOR [...] for nausea or vomiting., Disp: , Rfl: [id number]-wirfq- 29-1-400 mg combo pack,tablet & capDR, Take by mouth., Disp: , Rfl: sertraline [...] TESTS AND ULTRASOUND REPORTS: Referral records and [facility] chart were reviewed Pertinent Ultrasound findings [...] patient is in complete care of her director skills. Patient does have ultrasound and office visit scheduled with us. Thank you for allowing me to participate in the care of Vy Mckeon. If there any questions please do not hesitate to contact us. Fidencio Rojas MD Maternal- Medicine [facility] [address] [place] [address] [facility], the CDC, and other organizations representing maternal and public health professionals recommend that , , and lactating people and those considering receive the COVID-19 vaccination. Vaccination is the best method to reduce maternal and complications of SARS-CoV-2 infection. This document was created with [employer] technology. Though I make every effort to review the dictation as it is transcribed, on occasion the spoken word can be misinterpreted by the technology leading to inappropriate words, phrases, or sentences. This note is addressed to the requesting provider as a consultation for clinical guidance. Specific medical abbreviations are occasionally used and those are generally approved by the [place]?Board of?Obstetrics and?Gynecology?as well as?Justyna rea abbreviations. The above plan of care was based solely on the diagnoses for which a consultation was requested. ?More frequent testing may be indicated based on her other medical/obstetrical conditions. The management of other or medical conditions is beyond the scope of requested consultation and will continue to be followed by the primary director skills or primary care provider. Note to patient: The Century Cures Act makes medical notes like [...] of the practitioner. 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) ([facility]) 02/13/2023 Mild intermittent asthma without complication ([facility]) 02/13/2023 Asthma exacerbation, mild ([facility]) 02/13/2023 Mild persistent asthma with (acute) exacerbation ([facility]) 02/19/2023 Second trimester 10/08/2023 AMA (advanced maternal age) primigravida 35+, unspecified trimester 10/08/2023 Resolved Ambulatory Problems Diagnosis Date Noted No Resolved Ambulatory Problems Past Medical History: Diagnosis Date ADHD (attention deficit hyperactivity disorder) ([facility]) Allergies Anxiety Asthma ([facility]) Bipolar disorder ([facility]) Family History Problem Relation Name Age of [...] obtained without difficulty and patient was given msAFP order to have obtained. Follow Up: Patient is to return to our office in 4 weeks for routine OB appointment Documented by Dana Farris LPN on behalf of: SHANT España documented in this encounter [facility] 11-12-2023 History of Present illness Narrative Summary: MOB carrier screening results Called and discussed carrier screening results with Vy. 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 We discussed the natural history and etiology of the condition. I recommend FOB carrier screening if he's available. She understood and had no additional questions. She will reach out to [facility] to get the necessary info needed for me to order his carrier screening (full name, , phone number, email, health insurance info). She requests the kit be sent to her home address. I will be on the lookout for an email from her with his information. I encouraged the patient to call back with any additional questions or concerns. documented in this encounter [facility] 10-29-2023 History of Present illness Narrative Summary: [...] completed between 11/10-11/17. documented in this encounter [facility] 10-22-2023 History of Present illness Narrative Summary: M Genetic Counseling Note Provider at different site/location than patient. I confirmed the patient is located in the [facility]. Vy Mckeon is currently at home and provider at remote site. The patient consented to be treated electronically via this form of telemedicine. This visit was not related to an office visit or procedure in the past 7 days, and in-office follow up is not recommended in the next 24 hours. Video Visit via Real-time Synchronous Audiovisual Provider Location: [facility] AT [address] [phone] Patient Location: Patient's home Patient Location Camera Operator: None Video Visit Consent Statement: I [...] that there are some limitations compared to [id number] evaluations. We elected to proceed. Name: Vy Mckeon : 1990 Date of Visit: 10/22/2023 Email: [email or web address] Preferred contact method: email Partner's Name: Bogdan Age: 32 Requesting Physician: Eliazar Castaneda DO [address] [place] [address] , [place] [address] Reason for Referral: Vy Mckeon is a 33 y.o. female who presented to [facility] Tele[facility]. Vy is here at [...] Screen: YES - low risk Performing lab: [employer] ([facility] Screen) Conditions screened: Trisomy 13, Trisomy 18, [...] age I personally spent 25 minutes in [id number] time with this patient. I provided genetic [...] call or email their genetic counselor at [phone] or [email or web address] if any additional questions or concerns should arise. TAMMY Soto Licensed, Certified Genetic Counselor documented in this encounter [facility] 05-29-2023 Evaluation note Encounter Date Diagnosis Assessment Notes May, Thrush (ICD-10 - B37.0) Continue home medications as prescribed. Use the nystatin mouthwash as prescribed, swish and swallow. Follow-up with your family physician if no improvement in 2 to 3 days [facility] Other 06-19-2023 Procedure [facility]05-15-2023 Evaluation note* Encounter Date Diagnosis Assessment [...] educated on the importance of PPI optimization [facility] Other 05-10-2023 Evaluation note* Encounter Date Diagnosis [...] January, Other Contusion mater ial was printed [facility] Other 08-23-2022 NoteOPERATIVE NOTE OPERATION DATE: 05/23/2022 PROCEDURE: Suction D AND C. PREOPERATIVE DIAGNOSIS: Missed . POSTOPERATIVE DIAGNOSIS: Missed . ANESTHESIA: General. SURGEON: Eliazar Castaneda D.O. RETAIL ZONE SPECIALIST: None. FINDING: Products of conception. SPECIMEN: Products [...] products of conception were removed using an 8-Spanish suction curette. Excellent hemostasis was noted. The patient tolerated the procedure well. Sponge, lap, and needle counts were correct x 2. All instruments were then removed from the patient's vagina. The patient was taken to the Recovery Room in stable condition. [facility] In[facility]: Assessments for all patient encounters Findings Encounter Date [facility] 03/29/2020 Generalized anxiety disorder [facility] 03/29/2020 Dysthymic disorder Established Patie nt with Bobbi Colon [facility] 10/14/2019 Generalized anxiety disorder Establis hed Patient with Bobbi Colon [facility] 10/14/2019 Z68.24 - Body mass index (BM I) 24.0-24.9 adult Medical Established Patient with Candace Grossman [facility] 10/14/2019 F34.1 - Dysthymic disorder Establishe d Patient with Bobbi Colon [facility] 09/04/2019 Generalized anxiety disorder Establis hed Patient with Bobbi Colon [facility] 09/04/2019 Body mass index Medical Established Patient with Candace Grossman [facility] 09/04/2019 Diabetes Risk Test Score was 0 score 09/04/2019 Medical Established Patient with Candace Grossman [facility] 09/04/2019 Body mass index Nurse Visit with Candace Grossman P 08/19/2019 Diabetes Risk Test Score was 0 score 08/19/2019 Nurse Visit with Candace Grossman [facility] 08/19/2019 Generalized anxiety disorder Establis hed Patient with Bobbi Colon [facility] 07/28/2019 Severe recurrent major depre 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 features Established Patient with Bobbi Colon [facility] 07/28/2019 AUDIT alcohol use disorders identification test was six 07/28/2019 Medical New Patient with Candace Grossman [facility] 07/28/2019 Diabetes Risk Test Score was 0 score 07/28/2019 Medical New Patient with Candace Grossman [facility] 07/28/2019 ZAN-7 score was 21 07/28/2019 Medical Ne w Patient with Candace Grossman [facility] 07/28/2019 PHQ-9: total score was 21 07/28/2019 Med ical New Patient with Candace Grossman [facility] 07/28/2019 Z68.22 - Body mass index (BM I) 22.0-22.9 adult Medical New Patient with Candace Grossman [facility] 07/28/2019 [facility] Work Phone: Evaluation noteNo assessment information available [facility] Work Phone: Evaluation note* Diagnosis Onset Date Resolution Status GERD (gastroesophageal reflux disease) acute [facility] Work Phone: Evaluation note* Diagnosis Multigravida of advanced maternal age in second trimester- Primary Family history of autism Family history of mental disorder Family history of psychiatric condition [facility] Diagnosis Multigravida of advanced maternal age in second trimester- Primary Family history of autism Family history of mental disorder Family history of psychiatric condition documented [facility]* Diagnosis Second trimester state, incidental Vaginal discharge Leukorrhea, not specified as infective STD exposure Screening, , for anatomic survey Encounter for anatomic survey Chronic cluster headache, not intractable [facility] Diagnosis Multigravida of advanced maternal age in second trimester Family history of autism Family history of mental disorder Family history of psychiatric condition [facility]* Diagnosis 20 weeks gestation of - Primary Placenta previa antepartum in second trimester Advanced maternal age in multigravida, second trimester documented [facility]* Diagnosis Placenta previa antepartum in second trimester- Primary Multigravida of advanced maternal age in second trimester documented [facility]* Diagnosis Nausea and vomiting, unspecified vomiting type- Primary Psychophysiological insomnia Persistent disorder of initiating or maintaining sleep documented in this [facility]* Diagnosis Malignant melanoma of skin (HCC)- Primary Melanoma of skin, site unspecified [facility] Diagnosis Encounter for anatomic survey Encounter for anatomic survey- Primary [facility] Diagnosis Encounter for anatomic survey [facility] Diagnosis Malignant melanoma of skin (HCC) Melanoma of skin, site unspecified Skin cancer Unspecified malignant neoplasm of skin, site unspecified Placenta previa antepartum in second trimester * Assessment & Plan Note - Ana Peoples MD - 01/21/2024 1:34 PM EDT Associated Problem(s): Skin cancer 01/22/[address] [facility] Pt is a 33 year old 29w4d with a new diagnosis of malignant melanoma located above the left upper lip. Oncologist Usman Goldberg MD Surgeon Fransico Sharp MD Pts general OBGYN in [place], [place]: Eliazar Castaneda MD The plan is for wide local excision with reconstruction, which may take multiple trips to the OR. The OR plan involves radioactive tracer for sentinal node She has not been imaged for staging. She comes to [facility] today for discussion on when to [...] pt can deliver closer to home at [facility] if she goesat term and the CT does not show any spread.. We would need to find a way to get the placenta to [facility] for examination. I have left a message with Dr. Casatneda's office to call me back so that we can confirm ability to get placenta to [facility] for pathology should she deliver at [place]. Ana Peoples MD [facility] Diagnosis Malignant melanoma of skin (HCC)- Primary Melanoma of skin, site unspecified Malignant melanoma of skin (HCC) Melanoma of skin, site unspecified documented in this encounter [facility] general Narrative - Reported* Type Description Date Medical History anxiety Medical History depression Medical History ADHD Surgical History D&C [facility] Other History general Narrative - Reported* Type Description Date Medical History anxiety Medical History depression Medical History ADHD Surgical History D&C 2021 [facility] Other History of Present illness Narrative History of Present Illness not supported for this document type No History of Present Illness [facility] Work Phone: Hospital Discharge instructions [...] if you have any problems. -Office number [phone] Work Phone: Instructions Instructions not supported for this document type No Instructions RecordedHealth [facility] Work Phone: InstructionsNot on filedocumented in this encounter [employer] SystemInstructionsNot on filedocumented in this encounter [facility] SystemInstructionsNot on filedocumented in this encounter [facility] SystemPatient problem outcome Narrative Includes: Evaluations & Outcomes for active Goals No Outcomes RecordedHealth [facility] Work Phone: reason for referral (narrative)No Reason for Referral [facility] Work Phone: Reason for referral (narrative)* Diagnostic Procedure Only (Routine) - Closed Specialty Diagnoses / Procedures Referred By Contac t Referred To Contact [facility] Diagnoses Encounter for anatomic survey Procedures OBSTETRIC ULTRASOUND WHI US PREG UTERUS AFTER 1ST [place] [address] [place] [address] [facility] [address] [place] [address] Referral ID Status Reason Start Date Expiration Date V isits Requested Visits Authorized [id number] Closed Auto-Generate d Referral 01/21/2024 01/20/2025 1 1 [facility] for visit NarrativeUNCONTROLLED GERD//REFERRAL [facility] [employer] Other Reason for visit Narrative* Consultation (Routine) - Pending Review Specialty Diagnoses / Procedures Referred By Contac t Referred To Contact Maternal and Medicine Diagnoses Multigravida of advanced maternal age in second trimester Eliazar Castaneda R, DO [address] , [place] [address] [facility] Maternal Med [address] [place] [address] Referral ID Status Reason Start Date Expiration Date Visits Requested Visits Authorized [id number] Pending Review Specialty Services Required 10/10/2023 10/09/2024 1 1 [facility] for visit Narrative* Diagnostic Procedure Only (Routine) - Closed Specialty Diagnoses / Procedures Referred By Contac t Referred To Contact [facility] Diagnoses Encounter for anatomic survey Procedures OBSTETRIC ULTRASOUND WHI US PREG UTERUS AFTER 1ST TRIMEST 1 [place] [address] [place] [address] [facility] [address] [place] [address] Referral ID Status Reason Start Date Expiration Date V isits Requested Visits Authorized [id number] Closed Auto-Generate d Referral 01/21/2024 01/20/2025 1 1 [facility] of systems Narrative - Reported Review of Systems not supported for this document type No Review of Systems [facility] Work Phone: Summary Purpose Family History No Family History Records Found Description Last Updated Paternal history of cardiovascular disor thuy 07/28/2019 Relationship Condition Age at Onset Recorded Date/T pia Not Specified Anxiety Unknown Chronic obstructive pulmonary disease Unk nown Advance Directives No Advanced Directives Records FoundDocuments on File Type Date Recorded Patient It Support Specialist Expl anation Advance Directives and Living Will Power of Professor/Nurse Anesthetist Advance Directive Response Recorded Date/ Time Advance Directives No February 07 3:12pm Reason for Referral Specialty Diagnoses / Procedures Referred By Contac t Referred To Contact Maternal and Medicine Diagnoses Placenta previa antepartum in second trimester Multigravida of advanced maternal age in second trimester Procedures US [facility] with or without consult Fidencio Rojas MD [address] [facility] [address] [place] [address] [facility] Maternal Med [address] [facility] [place] [address] Referral ID Status Reason Start Date Expiration Date V isits Requested Visits Authorized [id number] Pending Review 11/20/2023 11/19/2024 1 1 Specialty Diagnoses / Procedures Referred By Contac t Referred To Contact Diagnoses Malignant melanoma of skin (HCC) Procedures REFER TO PACC - PRE ANESTHESIA CONSULTATION CLINIC OFFICE/OUTPATIENT [facility] 60 MINUTES Fransico Sharp MD [address] [place] [address] Referral ID Status Reason Start Date Expiration Date Visits Requested Visits Authorized [id number] Authorized PCP Requested Referral 01/04/2024 01/03/2025 1 1 Specialty Diagnoses / Procedures Referred By Contac t Referred To Contact Diagnoses Malignant melanoma of skin (HCC) Procedures CONSULT TO MATERNAL MEDI OFFICE/OUTPATIENT [facility] 60 MINUTES Fransico Sharp MD [address] [place] [address] Referral ID Status Reason Start Date Expiration Date Visits Requested Visits Authorized [id number] Authorized PCP Requested Referral Auto-Generate d Referral 01/04/2024 01/03/2025 1 1 Specialty Diagnoses / Procedures Referred By Contac t Referred To Contact CT IMAGING Diagnoses Malignant melanoma of skin (HCC) Procedures CT CHEST W IVCON DIAGNOSTIC COMPUTED TOMOGRAPHY THORAX W/CONTRAST Usman Goldberg MD [address] [place] [address] [place] [address] [place] [address] Referral ID Status Reason Start Date Expiration Date Visits Requested Visits Authorized [id number] Authorized Auto-Generat ed Referral 02/20/2024 02/21/2025 1 1 Specialty Diagnoses / Procedures Referred By Kalina t Referred To Contact CT IMAGING Diagnoses Malignant melanoma of skin (HCC) Procedures CT NECK SOFT TISSUE W IVCON CT SOFT TISSUE NECK W/CONTRAST MATERIAL Usman Goldberg MD [address] [place] [address] [place] [address] [place] [address] Referral ID Status Reason Start Date Expiration Date Visits Requested Visits Authorized [id number] Authorized Auto-Generat ed Referral 02/20/2024 02/21/2025 1 1 Assessments Findings Encounter Date Generalized anxiety disorder BH Establis hed Patient with Bobbileif Colon [facility] 07/28/2019 Severe recurrent major depre 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 features Established Patient with Bobbileif Colon [facility] 07/28/2019 AUDIT alcohol use disorders identification test was six 07/28/2019 Medical New Patient with Candace Dianelys [facility] 07/28/2019 Diabetes Risk Test Score was 0 score 07/28/2019 Medical New Patient with Candace Dianelys [facility] 07/28/2019 ZAN-7 score was 21 07/28/2019 Medical Ne w Patient with Candace Dianelys [facility] 07/28/2019 PHQ-9: total score was 21 07/28/2019 Med ical New Patient with Candace Dianelys [facility] 07/28/2019 Z68.22 - Body mass index (BM I) 22.0-22.9 adult Medical New Patient with Candace Dianelys [facility] 07/28/2019 Findings Encounter Date F34.1 - Dysthymic disorder BH Establishe d Patient with Bobbileif Colon [facility] 09/04/2019 Generalized anxiety disorder BH Establis hed Patient with Bobbileif Colon [facility] 09/04/2019 Body mass index Medical Established Patient with Candace Grossman [facility] 09/04/2019 Diabetes Risk Test Score was 0 score 09/04/2019 Medical Established Patient with Candacehalley Grossman [facility] 09/04/2019 Body mass index Nurse Visit with Candace Grossman CN P 08/19/2019 Diabetes Risk Test Score was 0 score 08/19/2019 Nurse Visit with Candace Grossman [facility] 08/19/2019 Generalized anxiety disorder BH Establis hed Patient with Bobbileif Colon [facility] 07/28/2019 Severe recurrent major depre 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 features BH Established Patient with Bobbi Colon [facility] 07/28/2019 AUDIT alcohol use disorders identification test was six 07/28/2019 Medical New Patient with Candace Houstonen [facility] 07/28/2019 Diabetes Risk Test Score was 0 score 07/28/2019 Medical New Patient with Candace Grossman [facility] 07/28/2019 ZAN-7 score was 21 07/28/2019 Medical Ne w Patient with Candace Houstonen [facility] 07/28/2019 PHQ-9: total score was 21 07/28/2019 Med ical New Patient with Candace Houstonen [facility] 07/28/2019 Z68.22 - Body mass index (BM I) 22.0-22.9 adult Medical New Patient with Candace Houstonen [facility] 07/28/2019 Findings Encounter Date Dysthymic disorder Established Patie nt with Bobbi Colon [facility] 10/14/2019 Generalized anxiety disorder Establis hed Patient with Bobbi Colon [facility] 10/14/2019 Z68.24 - Body mass index (BM I) 24.0-24.9 adult Medical Established Patient with Candace Grossman [facility] 10/14/2019 F34.1 - Dysthymic disorder Establishe d Patient with Bobbileif Colon [facility] 09/04/2019 Generalized anxiety disorder BH Establis hed Patient with Bobbileif Colon [facility] 09/04/2019 Body mass index Medical Established Patient with Candace Dianelys [facility] 09/04/2019 Diabetes Risk Test Score was 0 score 09/04/2019 Medical Established Patient with Candace Dianelys [facility] 09/04/2019 Body mass index Nurse Visit with Candace Grossman P 08/19/2019 Diabetes Risk Test Score was 0 score 08/19/2019 Nurse Visit with Candace Grossman [facility] 08/19/2019 Generalized anxiety disorder BH Establis hed Patient with Bobbi Colon [facility] 07/28/2019 Severe recurrent major depre 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 features Established Patient with Bobbileif Colon [facility] 07/28/2019 AUDIT alcohol use disorders identification test was six 07/28/2019 Medical New Patient with Candace Houstonen [facility] 07/28/2019 Diabetes Risk Test Score was 0 score 07/28/2019 Medical New Patient with Candace Dianelys [facility] 07/28/2019 ZAN-7 score was 21 07/28/2019 Medical Ne w Patient with Candace Dianelys [facility] 07/28/2019 PHQ-9: total score was 21 07/28/2019 Med ical New Patient with Candace Dianelys [facility] 07/28/2019 Z68.22 - Body mass index (BM I) 22.0-22.9 adult Medical New Patient with Candace Grossman [facility] 07/28/2019 Findings Encounter Date Visit for: contraceptive management Women's Heal th with Linnea Escobar [facility] 04/08/2020 Z68.24 - Body mass index (BM I) 24.0-24.9, adult Women's Health with Linnea Escobar [facility] 04/08/2020 Depressive disorder Telebehavioral He alth with Emilee Short [facility] 03/29/2020 Generalized anxiety disorder Telebeha vioral Health with Emilee Short [facility] 03/29/2020 Dysthymic disorder Established Patie nt with Bobbi Colon [facility] 10/14/2019 Generalized anxiety disorder Establis hed Patient with Bobbi Colon [facility] 10/14/2019 Z68.24 - Body mass index (BM I) 24.0-24.9 adult Medical Established Patient with Candace Dianelys [facility] 10/14/2019 F34.1 - Dysthymic disorder Establishe d Patient with Bobbi Colon [facility] 09/04/2019 Generalized anxiety disorder BH Establis hed Patient with Bobbi Colon [facility] 09/04/2019 Body mass index Medical Established Patient with Candace Dianelys [facility] 09/04/2019 Diabetes Risk Test Score was 0 score 09/04/2019 Medical Established Patient with Candace Dianelys [facility] 09/04/2019 Body mass index Nurse Visit with Candace Grossman P 08/19/2019 Diabetes Risk Test Score was 0 score 08/19/2019 Nurse Visit with Candace Grossman [facility] 08/19/2019 Generalized anxiety disorder BH Establis hed Patient with Bobbi Colon [facility] 07/28/2019 Severe recurrent major depre 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 features BH Established Patient with Bobbi Colon [facility] 07/28/2019 AUDIT alcohol use disorders identification test was six 07/28/2019 Medical New Patient with Candace Dianelys [facility] 07/28/2019 Diabetes Risk Test Score was 0 score 07/28/2019 Medical New Patient with Candace Dianelys [facility] 07/28/2019 ZAN-7 score was 21 07/28/2019 Medical Ne w Patient with Candace Dianelys [facility] 07/28/2019 PHQ-9: total score was 21 07/28/2019 Med ical New Patient with Candace Grossman [facility] 07/28/2019 Z68.22 - Body mass index (BM I) 22.0-22.9 adult Medical New Patient with Candace Grossman [facility] 07/28/2019 Findings Encounter Date Body mass index Nurse Visit with Candace Grossman P 08/19/2019 Diabetes Risk Test Score was 0 score 08/19/2019 Nurse Visit with Candace Grossman [facility] 08/19/2019 Generalized anxiety disorder BH Establis hed Patient with Bobbi Colon [facility] 07/28/2019 Severe recurrent major depre 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 features BH Established Patient with Bobbi Colon [facility] 07/28/2019 AUDIT alcohol use disorders identification test was six 07/28/2019 Medical New Patient with Candace Grossman [facility] 07/28/2019 Diabetes Risk Test Score was 0 score 07/28/2019 Medical New Patient with Candace Grossman [facility] 07/28/2019 ZAN-7 score was 21 07/28/2019 Medical Ne w Patient with Candace Grossman [facility] 07/28/2019 PHQ-9: total score was 21 07/28/2019 Med ical New Patient with Candace Grossman [facility] 07/28/2019 Z68.22 - Body mass index (BM I) 22.0-22.9 adult Medical New Patient with Candace Grossman [facility] 07/28/2019 Findings Encounter Date Overweight Women's Health with Candace Grossman [facility] 05/03/2020 Z68.24 - Body mass index (BM I) 24.0-24.9, adult Women's Health with Candace Grossman [facility] 05/03/2020 Visit for: contraceptive management Women's Heal th with Linnea Luz [facility] 04/08/2020 Z68.24 - Body mass index (BM I) 24.0-24.9, adult Women's Health with Lin[facility] Luz [facility] [facility] 04/08/2020 Depressive disorder Telebehavioral He alth with Emilee Sanford [facility] 03/29/2020 Generalized anxiety disorder Telebeha vioral Health with Emilee Short [facility] 03/29/2020 Dysthymic disorder Established Patie nt with Bobbi Colon [facility] 10/14/2019 Generalized anxiety disorder Establis hed Patient with Bobbi Colon [facility] 10/14/2019 Z68.24 - Body mass index (BM I) 24.0-24.9 adult Medical Established Patient with Candace Grossman [facility] 10/14/2019 F34.1 - Dysthymic disorder BH Establishe d Patient with Bobbi Colon [facility] 09/04/2019 Generalized anxiety disorder BH Establis hed Patient with Bobbi Colon [facility] 09/04/2019 Body mass index Medical Established Patient with Candace Grossman [facility] 09/04/2019 Diabetes Risk Test Score was 0 score 09/04/2019 Medical Established Patient with Candace Grossman [facility] 09/04/2019 Body mass index Nurse Visit with Candace Grossman P 08/19/2019 Diabetes Risk Test Score was 0 score 08/19/2019 Nurse Visit with Candace Grossman [facility] 08/19/2019 Generalized anxiety disorder BH Establis hed Patient with Bobbi Colon [facility] 07/28/2019 Severe recurrent major depre 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 features BH Established Patient with Bobbi Colon [facility] 07/28/2019 AUDIT alcohol use disorders identification test was six 07/28/2019 Medical New Patient with Candace Grossman [facility] 07/28/2019 Diabetes Risk Test Score was 0 score 07/28/2019 Medical New Patient with Candace Grossman [facility] 07/28/2019 ZAN-7 score was 21 07/28/2019 Medical Ne w Patient with Candace Grossman [facility] 07/28/2019 PHQ-9: total score was 21 07/28/2019 Med ical New Patient with Candace Grossman [facility] 07/28/2019 Z68.22 - Body mass index (BM I) 22.0-22.9 adult Medical New Patient with Candace Grossman [facility] 07/28/2019 Instructions Instructions not supported for this [...] section and content) DATE CREATED AUTHOR 03/26/2018 [facility] DATE CREATED AUTHOR AUTHOR'S ORGANIZ ATION 05/07/2020 [facility] DATE CREATED AUTHOR AUTHOR'S ORGANIZ ATION 02/10/2023 [facility] DATE CREATED AUTHOR AUTHOR'S ORGANIZ ATION 03/28/2023 [facility] DATE CREATED AUTHOR AUTHOR'S ORGANIZ ATION 12/18/2023 [facility] DATE CREATED AUTHOR AUTHOR'S ORGANIZ ATION [facility]20[facility] DATE CREATED AUTHOR AUTHOR'S ORGANIZ ATION 01/27/2024 [facility] DATE CREATED AUTHOR AUTHOR'S ORGANIZ ATION 02/12/2024 [facility] DATE CREATED AUTHOR AUTHOR'S ORGANIZ ATION 02/14/2024 [facility] DATE CREATED AUTHOR AUTHOR'S ORGANIZ ATION 02/27/2024 [facility]uations & Outcomes (unre cognized section [...] HIGH MDM 60 MINUTES Fransico Sharp MD [address] [place] [address] Referral ID Status Reason Start Date Expiration Date V isits Requested Visits Authorized [id number] Closed PCP Requested Referral Auto-Generated Referral 01/04/2024 01/03/2025 1 1 Reason Comments Scans Reason Comments Results - Ct Patient Update Care Teams (unrecognized sec tion and content) Team Status: Inactive Member Role Status Dates JUMANA Spann Attending Provider Active Team Status: Active Member Role Status Dates NON STAFF Primary Care Provider Active Team Status: Inactive Member Role Status Dates Karan Romero MD Attending Provider Active NON STAFF Primary Care Provider Active Network Operations Lead Relationship Specialty Start Date End Date Freddie Delgado APRN-[facility] PCP - General Nurse Practitioner 07/30/23 Network Operations Lead Relationship Specialty Start Date End Date Freddie Delgado APRN-[facility] PCP - General Nurse Practitioner 07/30/23 Network Operations Lead Relationship Specialty Start Date End Date Freddie Delgado APRN-[employer] [facility] PCP - General Nurse Practitioner 07/30/23 Network Operations Lead Relationship Specialty Start Date End Date Freddie Delgado APRN-[employer] [facility] PCP - General Nurse Practitioner 07/30/23 Network Operations Lead Relationship Specialty Start Date End Date Freddie Delgado APRN-[employer] [facility] PCP - General Nurse Practitioner 07/30/23 Network Operations Lead Relationship Specialty Start Date End Date Freddie Delgado APRN-[employer] [facility] PCP - General Nurse Practitioner 07/30/23 Network Operations Lead Relationship Specialty Start Date End Date Freddie Delgado APRN-[employer] PCP - General Nurse Practitioner 07/30/23 Network Operations Lead Relationship Specialty Start Date End Date Freddie Delgado [address] [place] [address] PCP - General Family Medicine 12/19/23 Network Operations Lead Relationship Specialty Start Date End Date Freddie Delgado [address] [place] [address] PCP - General Family Medicine 12/19/23 Network Operations Lead Relationship Specialty Start Date End Date Freddie Delgado [address] [place] [address] PCP - General Family Medicine 12/19/23 Network Operations Lead Relationship Specialty Start Date End Date Freddie Delgado [address] [place] [address] PCP - General Family Medicine 12/19/23 Network Operations Lead Relationship Specialty Start Date End Date Freddie Delgado [address] [place] [address] PCP - General Family Medicine 12/19/23 Network Operations Lead Relationship Specialty Start Date End Date Freddie Delgado [address] [place] [address] PCP - General Family Medicine 12/19/23 Network Operations Lead Relationship Specialty Start Date End Date Freddie Delgado [address] [place] [address] PCP - General Family Medicine 12/19/23 Network Operations Lead Relationship Specialty Start Date End Date Freddie Delgado [address] [place] [address] PCP - General Family Medicine 12/19/23 Network Operations Lead Relationship Specialty Start Date End Date Freddie Delgado [address] [place] [address] PCP - General Family Medicine 12/19/23 Network Operations Lead Relationship Specialty Start Date End Date Freddie Delgado [address] [place] [address] PCP - General Family Medicine 12/19/23 Network Operations Lead Relationship Specialty Start Date End Date Freddie Delgado [address] [place] [address] PCP - General Family Medicine 12/19/23 Network Operations Lead Relationship Specialty Start Date End Date Freddie Delgado [address] [place] [address] PCP - General [facility] Medicine 12/19/23 Network Operations Lead Relationship Specialty Start Date End Date Freddie Delgado [employer] [address] [place] [address] PCP - General Family Medicine 12/19/23 Goals [...] or prosecute any alcohol or drug abuse patient.[facility] the event this information is protected by the Federal Confidentiality of Alcohol and Drug Abuse Patient Records regulations: The Federal rules restrict any use of the information to criminally investigate or prosecute any alcohol or drug abuse patient.[facility] the event this information is protected by the Federal Confidentiality of Alcohol and Drug Abuse Patient Records regulations: The Federal rules restrict any use of the information to criminally investigate or prosecute any alcohol or drug abuse patient.[facility] the event this information is protected by the Federal Confidentiality of Alcohol and Drug Abuse Patient Records regulations: The Federal rules restrict any use of the information to criminally investigate or prosecute any alcohol or drug abuse patient.[facility] the event this information is protected by the Federal Confidentiality of Alcohol and Drug Abuse Patient Records regulations: The Federal rules restrict any use of the information to criminally investigate or prosecute any alcohol or drug abuse patient.[facility] the event this information is protected by the Federal Confidentiality of Alcohol and Drug Abuse Patient Records regulations: The Federal rules restrict any use of the information to criminally investigate or prosecute any alcohol or drug abuse patient.[facility] the event this information is protected by the Federal Confidentiality of Alcohol and Drug Abuse Patient Records regulations: The Federal rules restrict any use of the information to criminally investigate or prosecute any alcohol or drug abuse patient.[facility] the event this information is protected by the Federal Confidentiality of Alcohol and Drug Abuse Patient Records regulations: The Federal rules restrict any use of the information to criminally investigate or prosecute any alcohol or drug abuse patient.[facility] Center[facility] the event this information is protected by the Federal Confidentiality of Alcohol and Drug Abuse Patient Records regulations: The Federal rules restrict any use of the information to criminally investigate or prosecute any alcohol or drug abuse patient.[facility] Center[facility] the event this information is protected by the Federal Confidentiality of Alcohol and Drug Abuse Patient Records regulations: The Federal rules restrict any use of the information to criminally investigate or prosecute any alcohol or drug abuse patient.[facility] the event this information is protected by the Federal Confidentiality of Alcohol and Drug Abuse Patient Records regulations: The Federal rules restrict any use of the information to criminally investigate or prosecute any alcohol or drug abuse patient.[facility] Center[facility] the event this information is protected by the Federal Confidentiality of Alcohol and Drug Abuse Patient Records regulations: The Federal rules restrict any use of the information to criminally investigate or prosecute any alcohol or drug abuse patient.[facility] Center[facility] the event this information is protected by the Federal Confidentiality of Alcohol and Drug Abuse Patient Records regulations: The Federal rules restrict any use of the information to criminally investigate or prosecute any alcohol or drug abuse patient.[facility] FOR RECORDS PERTAINING TO PATIENTS [...] BE BASED ON THE PRIMARY CLINICAL RECORDS. [facility] [employer] [facility]. provides no warranty or guarantee of the accuracy or completeness of information in this document.
[2024-02-28 15:14] VITALS: BP 130/71; PULSE 96
== END 2024-02-28 15:52 | disposition home or self-care (01) ==
LOC: FBCO 07:07 → FBC 15:12
PROVIDERS: Visit Provider Obstetrics & Gynecology
DX: O36.63X0 Maternal care for excessive fetal growth, third trimester, not applicable or unspecified (principal)
CPT/HCPCS: 59025

== ENCOUNTER 2024-03-03 07:00 | Outpatient (OUT) | payer MEDICAID, SELFPAY ==
--- OUTSIDE RECORDS SUMMARY | 2024-03-03 07:27 | XMS_ITS | CCD ---
Author Organization [facility] Care Team Providers Care Eligibility Examiner Name Role Phone Gehlot, Upender Unavailable Unavailable Gehlot, Upender Unavailable Unavailable EMPERATRIZ CERNA Unavailable Unavailable Sally Morejon Primary Care Provider Unavailable Primary Care Provider UnavailCANDACE Dubon Referring Unavailable Sally Morejon Primary Care Provider Sally Moerjon CNP Primary Care Provider Shayla Valle Unavailable JUMANA Valle Attending Provider AICHHOLZ, DERRICK FOLLOWER VITO Admitting Unavailable AICHHOLZ, DERRICK FOLLOWER VITO Attending Unavailable AICHHOLZ, DERRICK FOLLOWER VITO Primary Care Unavailable AICHHOLZ, DERRICK FOLLOWER VITO Consulting Unavailable NORMA ., DR JIN Admitting Unavailable NORMA ., DR JIN Attending Unavailable AICHHOLZ, DERRICK FOLLOWER VITO Primary Care Unavailable NORMA ., DR JIN Consulting Unavailable RONAK, DR BOBBI Bianchi Consulting Unavailable NORMA ., DR JIN Admitting Unavailable NORMA ., DR JIN Attending Unavailable AICHHOLZ, DERRICK FOLLOWER VITO Primary Care Unavailable NORMA ., DR JIN Consulting Unavailable DR BOBBI SIMONS Consulting Unavailable NORMA ., DR JIN Admitting Unavailable NORMA ., DR JIN Attending Unavailable AICHHOLZ, DERRICK FOLLOWER VITO Primary Care Unavailable NORMA ., DR JIN Consulting Unavailable AICHHOLZ, DERRICK FOLLOWER VITO Admitting Unavailable AICHHOLZ, DERRICK FOLLOWER VITO Attending Unavailable AICHHOLZ, DERRICK FOLLOWER VITO Primary Care Unavailable NORMA ., DR JIN Admitting Unavailable NORMA ., DR JIN Attending Unavailable AICHHOLZ, DERRICK FOLLOWER VITO Primary Care Unavailable NORMA ., DR JIN Consulting Unavailable NORMA ., DR JIN Admitting Unavailable NORMA ., DR JIN Attending Unavailable AICHHOLZ, DERRICK FOLLOWER VITO Primary Care Unavailable NORMA ., DR JIN Consulting Unavailable AGUBOSIM, WADE Consulting Unavailable SOFI XIAO Consulting Unavailable NORMA ., DR JIN Admitting Unavailable NORMA ., DR JIN Attending Unavailable AICHHOLZ, DERRICK FOLLOWER VITO Primary Care Unavailable NORMA ., DR JIN Consulting Unavailable AICHHOLZ, DERRICK FOLLOWER VITO Admitting Unavailable AICHHOLZ, DERRICK FOLLOWER VITO Attending Unavailable AICHHOLZ, DERRICK FOLLOWER VITO Primary Care Unavailable WEST, DR JO-ANN Nicolas Consulting Unavailable AICHHOLZ, DERRICK FOLLOWER VITO Consulting Unavailable Yoel Jarrett Unavailable MD Karan Romero Attending Provider NON STAFF Primary Care Provider Unavailabl e NON STAFF Primary Care Unavailable Karan Romero Attending Unavailabl Karan Osuna Admitting Unavailabl e Tori, Shayla Attending Unavailable Tori, Shayla Admitting Unavailable Delgado [employer] ENGINE MECH[employer], Freddie Primary Care Provider Unavailable Primary Care Provider Unavailabl e DELGADO, FREDDIE Attending Unavailable DELGADO, FREDDIE Referring Unavailable DELGADO, FREDDIE Primary Care Unavailable ROJAS, FIDENCIO Attending Unavailable DELGADO, FREDDIE Referring Unavailable DELGADO, FREDDIE Primary Care Unavailable Delgado, Freddie Primary Care Provider GURJIT ROBIN Attending Unavailable DELGADO, FREDDIE Referring Unavailable DELGADO, FREDDIE Primary Care Unavailable Delgado, Freddie Primary Care Provider [phone] BRANDI, FIDENCIO Attending Unavailable NORMA, ELIAZAR R Referring Unavailable DELGADO, FREDDIE Primary Care Unavailable ADILENE CESPEDES Attending Unavailable NORMA, ELIAZAR R Referring Unavailable DELGADO, FREDDIE Primary Care Unavailable NORMA, ELIAZAR R Referring Unavailable DELGADO, FREDDIE Primary Care Unavailable CANDACE MORAN Admitting Unavailable CANDACE MORAN Attending Unavailable DELGADO, FREDDIE Primary Care Unavailable EZEQUIEL ROBINAN Referring Unavailable DELGADO, FREDDIE Primary Care Unavailable ROJAS, FIDENCIO Referring Unavailable DELGADO, FREDDIE Primary Care Unavailable Delgado DERRICK FOLLOWER, Freddie Adrian Primary Care Provid er NORMA, ELIAZAR Attending Unavailable BRONWYN, DIONNE Attending Unavailable NORMA, ELIAZAR Attending Unavailable NORMA, ELIAZAR Attending Unavailable BRONWYN, DIONNE Attending Unavailable NORMA, ELIAZAR Attending Unavailable NORMA, ELIAZAR Attending Unavailable DELGADO, FREDDIE ADRIAN Primary Care Unavail able ARON FRANSICO Referring Unavailable ANA PEOPLES Attending Unavailable DELGADO, FREDDIE ADRIAN Primary Care Unavail able TUFARCOURTNEY LinderONY Attending Unavailable DELGADO, FREDDIE ADRIAN Primary Care Unavail able ABHYANKAR, USMAN Attending Unavailable DELGADO, FREDDIE ADRIAN Primary Care Unavail able ABHYANKAR, USMAN Referring Unavailable DELGADO, FREDDIE ADRIAN Primary Care Unavail able ABHYANKAR, USMAN Referring Unavailable DELGADO, FREDDIE ADRIAN Primary Care Unavail able ANA PEOPLES Attending Unavailable Allergies Allergy Classification Reported Allergen(s) Allergy Type Date of Onset Reaction(s) Facility Penicillins (antibiotic) (1 source) Penicillins; Translations: [PENICILLINS] Drug Allergy 2 [facility] Repository (13 sources) Penicillins (Antibiotic) Allergy to substance 9 [facility] Work Phone: (8 sources) busPIRone Drug Allergy 0 [facility] Work Phone: (6 sources) Penicillin G Drug Allergy 3 [facility] Work Phone: (1 source) Penicillin Drug Allergy [facility] Repository (5 sources) Penicillins; Translations: [PENICILLINS] Drug allergy (disorder) 2 [facility] Repository (20 sources) Penicillins Propensity to adverse reactions to drug 2 Other (See Comments), Unknown [facility] (3 sources) Penicillins Drug Allergy 2 Unknown [facility] Healthcare Medications Current Medications Medication Drug Class(es) Dates Sig (Normalized) Sig (Original) [id number] 200 actuat albuterol 0.09 mg/actuat metered dose [...] Take 400 mg by mouth . nystatin 052579 unt/ml oral suspension (1 source) Polyene Antifungal Start: 05-29-2023 take 5 mL by mouth three times daily Nystatin 911147 UNIT/ML 5 ml Mouth/Throat 3 times a [...] 16, 2023 12:00am omeprazole magne sium (ACID SPECIAL NEEDS BABYSITTER, OMEPRAZOLE, ORAL) Take by mouth as directed. [...] above: Take by mouth as dir ected. -rser-mteqm- omega3 29-1-400 mg combo pack,tablet & cap,DR (9 sources) odfmzhhc59-wfbr- folic -omega3 29-1-400 mg combo pack,tablet & [...] MG Oral Tablet 03/29/2020 Provider: Candace Grossman DERRICK FOLLOWER Start: 03-29-2020 traZODone HCl 50 MG Oral Tablet 03/29/2020 Provider: Candace Grossman DERRICK FOLLOWER Start: 03-29-2020 traZODone HCl 150 MG Oral Tablet 03/29/2020 Provider: Candace Grossman DERRICK FOLLOWER Start: 03-29-2020 traZODone HCl 50 MG Oral [...] mg/ml oral solution (4 sources) Phenothiazine, Uncompetitive M-mhwagr-F-aspartat e Receptor Antagonist, Sigma-1 Agonist Start: 01-08-2020 [...] Onset: 05-26-2022 Chronic Other conditions (1 source) [place] affected by other morphological and functional abnormalities [...] Test Name Value Interpretation Reference Range Facility [facility] 02-26-2024 [facility] Telephone (HEMASA) VY MCKEON ([id number]) 1990 F Date Time Provider Department 02/26/24 [...] good. Will need a chest ct later. Valerie Bedoya RN 02/27/2024 4:20 PM Signed Per message chain, scans were reviewed by oncology team. Dr. Sharp notified and aware. Plan is for surgery 03/14. Valerie Bedoya RN February 27, 2024 4:20 PM Allergies As of Date: 02/26/2024 Noted Allergy Reaction PENICILLINS 04/05/2022 16 - Unknown Comments: unknown Other Reaction(s): Unknown Reaction Date Reviewed: 01/21/2024 Reviewed by: Reji Manning RN - Fully Assessed Reason for Visit: Results - Ct [3560] Patient Update [1234] Prescriptions as of 02/27/2024 - diphenhydramine HCl (UNISOM, DIPHENHYDRAMINE, ORAL) - [...] mg by mouth. - omeprazole magnesium (ACID SPECIAL NEEDS BABYSITTER, OMEPRAZOLE, ORAL) Take by mouth as directed. [...] Status:Closed by SYLVIA ALCALA on 02/26/24 Normal [facility] CT CHEST W IVCONon CT CHEST W IVCON * * *Final Report* * * DATE OF EXAM: Feb 22 2024 11:19AM [facility] 0539 - CT CHEST W [...] abdomen: Visualized upper abdomen is grossly unremarkable. [employer] (topogram) images: Unremarkable. IMPRESSION: Focal groundglass opacity [...] any questions regarding this interpretation, please call [phone]. If you are unable to reach us at the number above, please feel free to contact [facility]Radiology at [phone]. [id number] N Normal [facility] CT NECK SOFT TISSUE W IVCONo n 02-22-2024 CT NECK SOFT TISSUE W IVCON * * *Final Report* * * DATE OF EXAM: Feb 22 2024 11:19AM [facility] 0013 - CT NECK SOFT [...] amalgam. Parotid and submandibular spaces are normal. Cleaning Associate spaces appear normal. Infrahyoid Neck: Hypopharynx, larynx, [...] any questions regarding this interpretation, please call [phone]. If you are unable to reach us at the number above, please feel free to contact [facility] eRadiology at [phone]. [id number] N Normal [facility] CBC W Auto Differential pane l (Bld)on 02-20-2024 Basophils (Bld) [#/Vol] 0.03 10*3/uL Normal <0.11 [facility] Comment on above: Order Comment: Speci men Type: BLOOD SPECIMENOrdering Facility: [facility] Address: [address] [place] [address] Performed By: #### 5 7021-8 ####[facility] LABCLIA [id number] [place] [address] Basophils/100 WBC (Bld) 0.3 % Normal [facility] Comment on above: Order Comment: Speci men Type: BLOOD SPECIMENOrdering Facility: [facility] Address: [address] [place] [address] Performed By: #### 5 7021-8 ####[facility] LABCLIA [id number] [place] [address] Differential cell count method Nom (Bld) Auto Normal [facility] Comment on above: Order Comment: Speci men Type: BLOOD SPECIMENOrdering Facility: [facility] Address: [address] [place] [address] Performed By: #### 5 7021-8 ####[facility] LABCLIA [id number] [place] [address] Eosinophils (Bld) [#/Vol] 0.08 10*3/uL Normal <0.46 [facility] Comment on above: Order Comment: Speci men Type: BLOOD SPECIMENOrdering Facility: [facility] Address: [address] [place] [address] Performed By: #### 5 7021-8 ####[facility] LABCLIA [id number] [place] [address] Eosinophils/100 WBC (Bld) 0.8 % Normal [facility] Comment on above: Order Comment: Speci men Type: BLOOD SPECIMENOrdering Facility: [facility] Address: [address] [place] [address] Performed By: #### 5 7021-8 ####[facility] LABCLIA [id number] [place] [address] Erythrocyte distribution width (RBC) [Ratio] 13.5 % Normal 11.5-15.0 [facility] Comment on above: Order Comment: Speci men Type: BLOOD SPECIMENOrdering Facility: [facility] Address: [address] [place] [address] Performed By: #### 5 7021-8 ####[facility] LABIA [id number] [place] [address] Hematocrit (Bld) [Volume fraction] 33.4 % Low 36.0-46.0 [facility] Comment on above: Order Comment: Speci men Type: BLOOD SPECIMENOrdering Facility: [facility] Address: [address] [place] [address] Performed By: #### 5 7021-8 ####[facility] LABIA [id number] [place] [address] Hemoglobin (Bld) [Mass/Vol] 11.2 g/dL Low 11.5-15.5 [facility] Comment on above: Order Comment: Speci men Type: BLOOD SPECIMENOrdering Facility: [facility] Address: [address] [place] [address] Performed By: #### 5 7021-8 ####[facility] LABIA [id number] [place] [address] Immature granulocytes (Bld) [#/Vol] 0.07 10*3/uL Normal <0.10 [facility] Comment on above: Order Comment: Speci men Type: BLOOD SPECIMENOrdering Facility: [facility] Address: [address] [place] [address] Performed By: #### 5 7021-8 ####[facility] LABCLIA [id number] [place] [address] Immature granulocytes/100 WBC (Bld) 0.7 % Normal [facility] Comment on above: Order Comment: Speci men Type: BLOOD SPECIMENOrdering Facility: [facility] Address: [address] [place] [address] Performed By: #### 5 7021-8 ####[facility] LABCLIA [id number] [place] [address] Lymphocytes (Bld) [#/Vol] 1.13 10*3/uL Normal 1.00-4.00 [facility] Comment on above: Order Comment: Speci men Type: BLOOD SPECIMENOrdering Facility: [facility] Address: [address] [place] [address] Performed By: #### 5 7021-8 ####[facility] LABCLIA [id number] [place] [address] Lymphocytes/100 WBC (Bld) 10.7 % Normal [facility] Comment on above: Order Comment: Speci men Type: BLOOD SPECIMENOrdering Facility: [facility] Address: [address] [place] [address] Performed By: #### 5 7021-8 ####[facility] LABCLIA [id number] [place] [address] MCH (RBC) [Entitic mass] 29.5 pg Normal 26.0-34.0 [facility] Comment on above: Order Comment: Speci men Type: BLOOD SPECIMENOrdering Facility: [facility] Address: [address] [place] [address] Performed By: #### 5 7021-8 ####[facility] LABCLIA [id number] [place] [address] MCHC (RBC) [Mass/Vol] 33.5 g/dL Normal 30.5-36.0 [facility] Comment on above: Order Comment: Speci men Type: BLOOD SPECIMENOrdering Facility: [facility] Address: [address] [place] [address] Performed By: #### 5 7021-8 ####[facility] LABCLIA [id number] [place] [address] MCV (RBC) [Entitic vol] 87.9 fL Normal 80.0-100.0 [facility] Comment on above: Order Comment: Speci men Type: BLOOD SPECIMENOrdering Facility: [facility] Address: [address] [place] [address] Performed By: #### 5 7021-8 ####[facility] LABCLIA [id number] [place] [address] Monocytes (Bld) [#/Vol] 0.52 10*3/uL Normal <0.87 [facility] Comment on above: Order Comment: Speci men Type: BLOOD SPECIMENOrdering Facility: [facility] Address: [address] [place] [address] Performed By: #### 5 7021-8 ####[facility] LABIA [id number] [place] [address] Monocytes/100 WBC (Bld) 4.9 % Normal [facility] Comment on above: Order Comment: Speci men Type: BLOOD SPECIMENOrdering Facility: [facility] Address: [address] [place] [address] Performed By: #### 5 7021-8 ####[facility] LABCLIA [id number] [place] [address] Neutrophils (Bld) [#/Vol] 8.76 10*3/uL High 1.45-7.50 [facility] Comment on above: Order Comment: Speci men Type: BLOOD SPECIMENOrdering Facility: [facility] Address: [address] [place] [address] Performed By: #### 5 7021-8 ####[facility] LABCLIA [id number] [place] [address] Neutrophils/100 WBC (Bld) 82.6 % Normal [facility] Comment on above: Order Comment: Speci men Type: BLOOD SPECIMENOrdering Facility: [facility] Address: [address] [place] [address] Performed By: #### 5 7021-8 ####[facility] LABCLIA [id number] [place] [address] Nucleated RBC (Bld) [#/Vol] 10*3/uL Normal <0.01 [facility] Comment on above: Order Comment: Speci men Type: BLOOD SPECIMENOrdering Facility: [facility] Address: [address] [place] [address] Performed By: #### 5 7021-8 ####[facility] LABCLIA [id number] [place] [address] Nucleated RBC/100 WBC (Bld) [Ratio] 0.0 /100 WBC Normal [facility] Comment on above: Order Comment: Speci men Type: BLOOD SPECIMENOrdering Facility: [facility] Address: [address] [place] [address] Performed By: #### 5 7021-8 ####[facility] LABCLIA [id number] [place] [address] Platelet mean volume (Bld) [Entitic vol] 10.0 fL Normal 9.0-12.7 [facility] Comment on above: Order Comment: Speci men Type: BLOOD SPECIMENOrdering Facility: [facility] Address: [address] [place] [address] Performed By: #### 5 7021-8 ####[facility] LABCLIA [id number] [place] [address] Platelets (Bld) [#/Vol] 199 10*3/uL Normal 150-400 [facility] Comment on above: Order Comment: Speci men Type: BLOOD SPECIMENOrdering Facility: [facility] Address: [address] [place] [address] Performed By: #### 5 7021-8 ####[facility] [id number] [place] [address] RBC (Bld) [#/Vol] 3.80 10*6/uL Low 3.90-5.20 [facility] Comment on above: Order Comment: Speci men Type: BLOOD SPECIMENOrdering Facility: [facility] Address: [address] [place] [address] Performed By: #### 5 7021-8 ####[facility] [id number] [place] [address] WBC (Bld) [#/Vol] 10.59 10*3/uL Normal 3.70-11.00 [facility] Comment on above: Order Comment: Speci men Type: BLOOD SPECIMENOrdering Facility: [facility] Address: [address] [place] [address] Performed By: #### 5 7021-8 ####[facility] [id number] [place] [address] Comprehensive metabolic 2000 panelon 02-20-2024 Albumin [Mass/Vol] 3.8 g/dL Low 3.9-4.9 [facility] Comment on above: Order Comment: Speci men Type: BLOOD SPECIMENOrdering Facility: [facility] Address: [address] [place] [address] Performed By: #### 2 4323-8, 2532-0 ####[facility] [id number] [place] [address] ALP [Catalytic activity/Vol] 161 U/L High 34-123 [facility] Comment on above: Order Comment: Speci men Type: BLOOD SPECIMENOrdering Facility: [facility] Address: [address] [place] [address] Performed By: #### 2 4323-8, 2532-0 ####[facility] LABCLIA [id number] [place] [address] ALT [Catalytic activity/Vol] 13 U/L Normal 7-38 [facility] Comment on above: Order Comment: Speci men Type: BLOOD SPECIMENOrdering Facility: [facility] Address: [address] [place] [address] Performed By: #### 2 4323-8, 2531-0 ####[facility] LABCLIA [id number] [place] [address] Anion gap [Moles/Vol] 10 mmol/L Normal 9-18 [facility] Comment on above: Order Comment: Speci men Type: BLOOD SPECIMENOrdering Facility: [facility] Address: [address] [place], [place] [address] Performed By: #### 2 4323-8, 2531-0 ####[facility] LABCLIA [id number] [place] [address] AST [Catalytic activity/Vol] 21 U/L Normal 13-35 [facility] Comment on above: Order Comment: Speci men Type: BLOOD SPECIMENOrdering Facility: [facility] Address: [address] [place], [place] [address] Performed By: #### 2 4323-8, 2531-0 ####[facility] LABCLIA [id number] [place] [address] Bilirubin [Mass/Vol] 0.2 mg/dL Normal 0.2-1.3 [facility] Comment on above: Order Comment: Speci men Type: BLOOD SPECIMENOrdering Facility: [facility] Address: [address] [place] [address] Performed By: #### 2 4323-8, 2532-0 ####[facility] LABCLIA [id number] [place] [address] Calcium [Mass/Vol] 10.1 mg/dL Normal 8.5-10.2 [facility] Comment on above: Order Comment: Speci men Type: BLOOD SPECIMENOrdering Facility: [facility] Address: [address] [id number] Performed By: #### 2 4323-8, 2531-0 ####[facility] LABCLIA [id number] [place] [address] Chloride [Moles/Vol] 103 mmol/L Normal 97-105 [facility] Comment on above: Order Comment: Speci men Type: BLOOD SPECIMENOrdering Facility: [facility] Address: [address] [place] [address] Performed By: #### 2 4323-8, 2531-0 ####[facility] LABCLIA [id number] [place] [address] CO2 [Moles/Vol] 21 mmol/L Low 22-30 [facility] Comment on above: Order Comment: Speci men Type: BLOOD SPECIMENOrdering Facility: [facility] Address: [address] [place] [address] Performed By: #### 2 4323-8, 2531-0 ####[facility] LABCLIA [id number] [place] [address] Creatinine [Mass/Vol] 0.61 mg/dL Normal 0.58-0.96 [facility] Comment on above: Order Comment: Speci men Type: BLOOD SPECIMENOrdering Facility: [facility] Address: [address] [place], [place] [address] Performed By: #### 2 4323-8, 2531-0 ####[facility] LABCLIA [id number] [place] [address] Creatinine and Glomerular filtration rate.predicted panel (S/P/Bld) 120 mL/min/1.73m??? Normal >=60 [facility] Comment on above: Order Comment: Speci men Type: BLOOD SPECIMENOrdering Facility: [facility] Address: [address] [place], [place] [address] Result Comment: Araseli mated Glomerular Filtration Rate [...] GFR. Performed By: #### 2 4323-8, 0 ####[facility] LABCLIA [id number] [place] [address] Glucose [Mass/Vol] 85 mg/dL Normal 74-99 [facility] Comment on above: Order Comment: Kavin childress Type: BLOOD SPECIMENOrdering Facility: [facility] Address: [address] [place], [place] [address] Result Comment: The [place] [employer] (ADA) provides guidance for cutoff [...] Standards of Medical Care in Diabetes 2016, [place] [employer]. Diabetes Care. 2016.39(Suppl 1). Performed By: #### 2 [address], ####[facility] LABCLIA [id number] [place] [address] Potassium [Moles/Vol] 3.9 mmol/L Normal 3.7-5.1 [facility] Comment on above: Order Comment: Kavin childress Type: BLOOD SPECIMENOrdering Facility: [facility] Address: [address] [place] [address] Performed By: #### 2 4323-8, 0 ####[facility] LABCLIA [id number] [place] [address] Protein [Mass/Vol] 7.2 g/dL Normal 6.3-8.0 [facility] Comment on above: Order Comment: Speci men Type: BLOOD SPECIMENOrdering Facility: [facility] Address: [address] [place] [address] Performed By: #### 2 4323-8, 2531-0 ####[facility] LABCLIA [id number] [place] [address] Sodium [Moles/Vol] 134 mmol/L Low 136-144 [facility] Comment on above: Order Comment: Speci men Type: BLOOD SPECIMENOrdering Facility: [facility] Address: [address] [place] [address] Performed By: #### 2 4323-8, 2531-0 ####[facility] LABCLIA [id number] [place] [address] Urea nitrogen [Mass/Vol] 6 mg/dL Low 7-21 [facility] Comment on above: Order Comment: Speci men Type: BLOOD SPECIMENOrdering Facility: [facility] Address: [address] [place] [address] Performed By: #### 2 4323-8, 0 ####[facility] LABCLIA [id number] [place] [address] LDH SerPl-cCncon 02-20-2024 LDH [Catalytic activity/Vol] 210 U/L Normal 135-214 [facility] Comment on above: Order Comment: Speci men Type: BLOOD SPECIMENOrdering Facility: [facility] Address: [address] [place], [place] [address] Performed By: #### 2 4323-8, 2531-0 ####[facility] LABCLIA [id number] [place] [address] COMPLETE BLOOD COUNTon 01-28 Erythrocyte distribution width (RBC) [Ratio] 13.6 % Normal 11.5-15.0 [facility] Comment on above: Performed By: #### C GUI [facility], 0, 3083-10 #### [facility] ([id number]) [address] [place] [address] Hematocrit (Bld) [Volume fraction] 29.4 % Low 35-47 [facility] Comment on above: Performed By: #### Adri MESSER [facility], 0, 3083-10 #### [facility] ([id number]) [address] [place] [address] Hemoglobin (Bld) [Mass/Vol] 10.4 g/dL Low 11.7-15.5 [facility] Comment on above: Performed By: #### C GUI [facility], 0, 3083-10 #### [facility] ([id number]) [address] [place] [address] 27465 MCH (RBC) [Entitic mass] 31.0 pg Normal 27-34 [facility] Comment on above: Performed By: #### Adri MESSER [facility], , 3083-10 #### [facility] ([id number]) [address] [place] [address] 30568 MCHC (RBC) [Mass/Vol] 35.3 g/dL Normal 32-36 [facility] Comment on above: Performed By: #### C GUI [facility], 0, 3083-10 #### [facility] ([id number]) [address] [place] [address] 80376 MCV (RBC) [Entitic vol] 88 fL Normal 80-100 [facility] Comment on above: Performed By: #### Adri MESSER CMP, 0, 3083-10 #### [facility] ([id number]) [address] [place] [address] 73648 Platelet mean volume (Bld) [Entitic vol] 8.1 fL Normal 7-12 [facility] Comment on above: Performed By: #### C BC, CMP, 2532-0, 3083-1 #### [facility] ([id number]) [address] [place] [address]28 Platelets (Bld) [#/Vol] 205 10*3/uL Normal 150-450 [facility] Comment on above: Performed By: #### Adri BC, CMP, 2-0, 3083-1 #### [facility] ([id number]) [address] [place] [address] RBC COUNT 3.34 X10E12/L Low 3.80-5.20 [facility] Comment on above: Performed By: #### Adri BC, CMP, 2531-0, 3083-1 #### [facility] ([id number]) [address] [place] [address]72 WBC (Bld) [#/Vol] 8.2 10*3/uL Normal 4.0-11.0 [facility] Comment on above: Performed By: #### Adri BC, CMP, 2531-0, 3083-1 #### [facility] ([id number]) [address] [place] [address] COMPREHENSIVE METABOLIC PANE Joel 01-29-2024 Albumin [Mass/Vol] 2.8 g/dL Low 3.2-5.3 [facility] Comment on above: Performed By: #### Adri BC, CMP, 2531-0, 3083- #### [facility] ([id number]) [address] [place] [address]39 ALP [Catalytic activity/Vol] 103 U/L Normal 39-130 [facility] Comment on above: Performed By: #### C BC, CMP, 2532-0, 3083- #### [facility] ([id number]) [address] [place] [address] 83049 ALT [Catalytic activity/Vol] 16 U/L Normal 0-31 [facility] Comment on above: Performed By: #### C NATASHA MESSER, 2531-0, 3083-10 #### [facility] ([id number]) [address] [place] [address]507 Anion gap [Moles/Vol] 9 mmol/L Normal 5-15 [facility] Comment on above: Performed By: #### Adri MESSER CMP, 0, 3083-10 #### [facility] ([id number]) [address] [place] [address] 49802 AST [Catalytic activity/Vol] 18 U/L Normal 0-41 [facility] Comment on above: Performed By: #### Adri MESSER CMP, 0, 3083-10 #### [facility] ([id number]) [address] [place] [address] 15238 Bilirubin [Mass/Vol] 0.3 mg/dL Normal 0.3-1.2 [facility] Comment on above: Performed By: #### Adri MESSER CMP, 0, 3083-10 #### [facility] ([id number]) [address] [place] [address]66 Calcium [Mass/Vol] 9.2 mg/dL Normal 8.5-10.5 [facility] Comment on above: Performed By: #### Adri MESSER CMP, 0, 3083-10 #### [facility] ([id number]) [address] [place] [address] 21395 Chloride [Moles/Vol] 105 mmol/L Normal 98-109 [facility] Comment on above: Performed By: #### Adri MESSER CMP, 0, 3083-10 #### [facility] ([id number]) [address] [place] [address] 18614 CO2 [Moles/Vol] 22 mmol/L Normal 22-32 [facility] Comment on above: Performed By: #### C NATASHA MESSER, 2532-0, 3083-1 #### [facility] ([id number]) [address] [place] [address]05 Creatinine [Mass/Vol] 0.51 mg/dL Normal 0.40-1.00 [facility] Comment on above: Result Comment: METH OD TRACEABLE TO IDMS STANDARD Performed By: #### C NATASHA MESSER, 2531-0, 3083- #### [facility] ([id number]) [address] [place] [address]707 eGFR (CKD-EPI) NON-RACE DEPENDENT >90 Normal >59 [facility] Comment on above: Result Comment: Reported eGFR is based on the CKD-EPI 2020 equation that does not use a race coefficient. Performed By: #### C NATASHA MESSER, 2531-0, 3083-10 #### [facility] ([id number]) [address] [place] [address] 26984 Glucose [Mass/Vol] 96 mg/dL Normal 65-99 [facility] Comment on above: Performed By: #### Adri MESSER CMP, 2531-0, 3083-10 #### [facility] ([id number]) [address] [place] [address] 85794 Potassium [Moles/Vol] 4.1 mmol/L Normal 3.5-5.0 [facility] Comment on above: Performed By: #### Adri MESSER CMP, 2532-0, 3083- #### [facility] ([id number]) [address] [place] [address] 73323 Protein [Mass/Vol] 6.5 g/dL Normal 6.0-8.0 [facility] Comment on above: Performed By: #### Adri MESSER CMP, 2532-0, 3083- #### [facility] ([id number]) [address] [place] [address] [place] [address] Sodium [Moles/Vol] 136 mmol/L Normal 134-146 [facility] Comment on above: Performed By: #### C GUI [facility], 2532-0, 308-1 #### [facility] ([id number]) [address] [place] [address]47 Urea nitrogen [Mass/Vol] 5 mg/dL Normal 5-23 [facility] Comment on above: Performed By: #### C GUI [facility], 2532-0, 3083-1 #### [facility] ([id number]) [address] [place] [address]283 LDH [Catalytic activity/Vol] on 01-29-2024 LDH 128 U/L Normal 100-235 [facility] Comment on above: Performed By: #### C GUI [facility], 0, 3083-10 #### [facility] ([id number]) [address] [place] [address] 23431 PROTEIN CREAT RATIOon 2023 RANDOM URINE PROTEIN 30 mg/L Normal <120 [facility] Comment on above: Performed By: #### U PCR #### [facility] ([id number]) [address] [place] [address] 58218 U/PRO/PRACTICE OFFICE ASSOCIATE RATIO CALC 0.12 Normal <0.2 [facility] Comment on above: Result Comment: Neph rotic Syndrome is associated with ratios >3.5 Performed By: #### U PCR #### [facility] ([id number]) [address] [place] [address] 95515 URINE CREATININE,RDM 25.84 mg/dL Normal [facility] Comment on above: Performed By: #### U PCR #### [facility] ([id number]) [address] [place] [address] 87341 URIC ACIDon 01-29-2024 Urate [Mass/Vol] 4.1 mg/dL Normal 2.6-7.2 [facility] Comment on above: Performed By: #### C GUI, [facility], 2532-0, 3084-1 #### [facility] ([id number]) [address], [place] [address] Alina 01-25-2024 CNPN Telephone (PLASMN) VY MCKEON ([id number]) 1990 F Date Time Provider Department 01/25/24 [...] mg by mouth. - omeprazole magnesium (ACID SPECIAL NEEDS BABYSITTER, OMEPRAZOLE, ORAL) Take by mouth as directed. [...] Encounter Status:Closed by CYNTHIA PETTY on 01/25/24 Normal [facility] CNPNon 01-22-2024 CNPN Telephone (HEMASA) VY MCKEON ([id number]) 1990 F Date Time Provider Department 01/22/24 [...] that doesn?t seem like enough time. Vy Louisa: Please advise BRITNEY Hernandez Rebecca, RN 01/24/2024 9:38 AM Signed Ana Peoples MD Abhyankar, Vivek, MD 1 hour ago (8:13 AM) MACK Senthil, That is fine obstetrically if you are comfortable waiting that long from an Onc point of view. She can have the CT scan anytime as far as I am concerned. MD Wendy Brittonk: Can we go ahead and schedule the [...] [C43.9] Order(s):CT NECK SOFT TISSUE W IVCON [[id number]] Order #: [id number] FUTURE [] iv contrast (will be provided [...] 1 EachRfl: 0 CT CHEST W IVCON [[id number]] Order #: [id number] FUTURE [] iv contrast (will be provided [...] EachRfl: 0 LACTATE DEHYDROGENASE [SQLD6] Order #: [id number] FUTURE COMPLETE BLOOD COUNT AND DIFFERENTIAL [SQCBCDIF] Order #: [id number] FUTURE COMPREHENSIVE METABOLIC PANEL [SQCMP] Order #: [id number] FUTURE Prescriptions as of 01/30/2024 - diphenhydramine [...] mg by mouth. - omeprazole magnesium (ACID SPECIAL NEEDS BABYSITTER, OMEPRAZOLE, ORAL) Take by mouth as directed. [...] In Off (more content not included)... Normal [facility] CNPN Telephone (AWV384) VY MCKEON ([id number]) 1990 F Date Time Provider Department 01/22/24 ANA PEOPLES [id number] During your visit today, we recorded the following information about you: Ana Peoples MD 01/22/2024 3:44 PM Signed 01/22/2024 [facility] Pt called and identified ~ 12:30 [...] mg by mouth. - omeprazole magnesium (ACID SPECIAL NEEDS BABYSITTER, OMEPRAZOLE, ORAL) Take by mouth as directed. [...] Status:Closed by ANA PEOPLES on 01/22/24 Normal [facility] Examination level ultrasound on 01-21-2024 Indication anatomy [...] Hadlock Femur 54.6 mm 28w 6d 41% Evna Humerus 49.0 mm 28w 6d 26% Evan EFW 1,608 g 30w 2d 74% Hadlock EFW (lb) 3 lb EFW (oz) 9 oz EFW by: Hadlock (HC-AC-FL) [employer] 3.1 mm CM 7.6 mm 70% Nicolaides [...] normal LVOT view: normal 3-vessel view: normal 0-izlqdt-akzrgsb view: normal Heart / Thorax Situs: situs [...] Read By: Ana Peoples MD MATERNAL MEDICINE [facility] Radiology Study observation (narrative) [facility] Alina 01-18-2024 CNPN Telephone (OBGYF2) VY MCKEON ([id number]) 1990 F Date Time Provider Department 01/18/24 OB [facility] OBGYF2 During your visit today, we recorded [...] office will call her first thing on Teodoro if anything changes. Jose L Crowley MA [...] mg by mouth. - omeprazole magnesium (ACID SPECIAL NEEDS BABYSITTER, OMEPRAZOLE, ORAL) Take by mouth as directed. - PNV no.95/ferrous fum/folic ac ( ORAL) Take by mouth as directed. Problem List As Of Date: 01/18/2024 (None) Encounter Status:Closed by JOSE L CROWLEY on 01/18/24 [facility] ([id number]) 1990 F Date Time Provider Department 01/10/24 [...] mg by mouth. - omeprazole magnesium (ACID SPECIAL NEEDS BABYSITTER, OMEPRAZOLE, ORAL) Take by mouth as directed. - PNV no.95/ferrous fum/folic ac ( ORAL) Take by mouth as directed. Problem List As Of Date: 01/10/2024 (None) Encounter Status:Closed by ROLO PARADA on 01/10/24 Normal [facility] Alina 01-09-2024 CNPN Telephone (PLASMN) VY MCKEON ([id number]) 1990 F Date Time Provider Department 01/09/24 FRANSICO SHARP During your visit today, we recorded the following information about you: Fernanda Michael 01/09/2024 9:55 AM Signed Patient called that she is seeing Maternal Med, in her area and was questioning does she need to see one at the [facility]? She is asking for a call.. she is very nervous Surjit Griggs, RN 01/09/2024 12:42 PM Signed Reached out to patient. Instructions provided to see a maternal medicine specialist within the [facility] per Dr. Sharp. This nurse explained that [...] mg by mouth. - omeprazole magnesium (ACID SPECIAL NEEDS BABYSITTER, OMEPRAZOLE, ORAL) Take by mouth as directed. - PNV no.95/ferrous fum/folic ac ( ORAL) Take by mouth as directed. Problem List As Of Date: 01/09/2024 (None) Encounter Status:Closed by FERNANDA MICHAEL on 01/09/24 [facility] CNOVSPon 01-04-2024 CNOVSP Visit (SP) Office (PLASCA) VY MCKEON ([id number]) 1990 F Date Time Provider Department 01/04/24 2:15 PM FRANSICO SHARP During your visit today, we recorded the following information about you: Temperature Pulse Respiration Blood pressure 97.1 degrees 94/minute 20/minute 148/83 Fransico Sharp MD 01/06/2024 9:42 AM Signed DATE: January 03, 2024 CC: New Melanoma Patient Referring Physician: Margarita Kim MD at [facility] in [place] HPI: Vy Mckeon is a 33 year [...] 400 mg by mouth. omeprazole magnesium (ACID SPECIAL NEEDS BABYSITTER, OMEPRAZOLE, ORAL) Take by mouth as directed. [...] left upper lip with a variegated pattern, handle maker in the middle with a number of dark spots. The lesion measures 1 cm in diameter. Photos taken, see [facility] Get Images LABS: Pathology Report [...] taken and uploaded to chart today via [employer] - Pathology re-read to be obtained - Surgical plan is for resection of left upper lip melano (more content not included)... Normal [facility] CBC W Auto Differential pane l (Bld)on 12-26-2023 Basophils (Bld) [#/Vol] 0.03 10*3/uL Normal <0.11 [facility] Comment on above: Order Comment: Speci men Type: BLOOD SPECIMENOrdering Facility: [facility] Address: [address] [place] [address] Performed By: #### 5 7021-8 ####[facility] LABCLIA [id number] [place] [address] Basophils/100 WBC (Bld) 0.3 % Normal [facility] Comment on above: Order Comment: Speci men Type: BLOOD SPECIMENOrdering Facility: [facility] Address: [address] [place] [address] Performed By: #### 5 7021-8 ####[facility] LABCLIA [id number] [place] [address] Differential cell count method Nom (Bld) Auto Normal [facility] Comment on above: Order Comment: Speci men Type: BLOOD SPECIMENOrdering Facility: [facility] Address: [address] [place] [address] Performed By: #### 5 7021-8 ####[facility] LABCLIA [id number] [place] [address] Eosinophils (Bld) [#/Vol] 0.15 10*3/uL Normal <0.46 [facility] Comment on above: Order Comment: Speci men Type: BLOOD SPECIMENOrdering Facility: [facility] Address: [address] [place] [address] Performed By: #### 5 7021-8 ####[facility] LABCLIA [id number] [place] [address] Eosinophils/100 WBC (Bld) 1.5 % Normal [facility] Comment on above: Order Comment: Speci men Type: BLOOD SPECIMENOrdering Facility: [facility] Address: [address] [place] [address] Performed By: #### 5 7021-8 ####[facility] LABCLIA [id number] [place] [address] Erythrocyte distribution width (RBC) [Ratio] 13.5 % Normal 11.5-15.0 [facility] Comment on above: Order Comment: Speci men Type: BLOOD SPECIMENOrdering Facility: [facility] Address: [address] [place] [address] Performed By: #### 5 7021-8 ####[facility] LABCLIA [id number] [place] [address] Hematocrit (Bld) [Volume fraction] 35.5 % Low 36.0-46.0 [facility] Comment on above: Order Comment: Speci men Type: BLOOD SPECIMENOrdering Facility: [facility] Address: [address] [place] [address] Performed By: #### 5 7021-8 ####[facility] LABCLIA [id number] [place] [address] Hemoglobin (Bld) [Mass/Vol] 12.0 g/dL Normal 11.5-15.5 [facility] Comment on above: Order Comment: Speci men Type: BLOOD SPECIMENOrdering Facility: [facility] Address: [address] [place] [address] Performed By: #### 5 7021-8 ####[facility] LABCLIA [id number] [place] [address] Immature granulocytes (Bld) [#/Vol] 0.06 10*3/uL Normal <0.10 [facility] Comment on above: Order Comment: Speci men Type: BLOOD SPECIMENOrdering Facility: [facility] Address: [address] [place] [address] Performed By: #### 5 7021-8 ####[facility] LABCLIA [id number] [place] [address] Immature granulocytes/100 WBC (Bld) 0.6 % Normal [facility] Comment on above: Order Comment: Speci men Type: BLOOD SPECIMENOrdering Facility: [facility] Address: [address] [place] [address] Performed By: #### 5 7021-8 ####[facility] LABCLIA [id number] [place] [address] Lymphocytes (Bld) [#/Vol] 1.46 10*3/uL Normal 1.00-4.00 [facility] Comment on above: Order Comment: Speci men Type: BLOOD SPECIMENOrdering Facility: [facility] Address: [address] [place] [address] Performed By: #### 5 7021-8 ####[facility] LABCLIA [id number] [place] [address] Lymphocytes/100 WBC (Bld) 15.0 % Normal [facility] Comment on above: Order Comment: Speci men Type: BLOOD SPECIMENOrdering Facility: [facility] Address: [address] [place] [address] Performed By: #### 5 7021-8 ####[facility] LABCLIA [id number] [place] [address] MCH (RBC) [Entitic mass] 30.1 pg Normal 26.0-34.0 [facility] Comment on above: Order Comment: Speci men Type: BLOOD SPECIMENOrdering Facility: [facility] Address: [address] [place] [address] Performed By: #### 5 7021-8 ####[facility] LABCLIA [id number] [place] [address] MCHC (RBC) [Mass/Vol] 33.8 g/dL Normal 30.5-36.0 [facility] Comment on above: Order Comment: Speci men Type: BLOOD SPECIMENOrdering Facility: [facility] Address: [address] [place] [address] Performed By: #### 5 7021-8 ####[facility] LABCLIA [id number] [place] [address] MCV (RBC) [Entitic vol] 89.0 fL Normal 80.0-100.0 [facility] Comment on above: Order Comment: Speci men Type: BLOOD SPECIMENOrdering Facility: [facility] Address: [address] [place] [address] Performed By: #### 5 7021-8 ####[facility] LABCLIA [id number] [place] [address] Monocytes (Bld) [#/Vol] 0.50 10*3/uL Normal <0.87 [facility] Comment on above: Order Comment: Speci men Type: BLOOD SPECIMENOrdering Facility: [facility] Address: [address] [place] [address] Performed By: #### 5 7021-8 ####[facility] LABCLIA [id number] [place] [address] Monocytes/100 WBC (Bld) 5.1 % Normal [facility] Comment on above: Order Comment: Speci men Type: BLOOD SPECIMENOrdering Facility: [facility] Address: [address] [place] [address] Performed By: #### 5 7021-8 ####[facility] LABCLIA [id number] [place] [address] Neutrophils (Bld) [#/Vol] 7.52 10*3/uL High 1.45-7.50 [facility] Comment on above: Order Comment: Speci men Type: BLOOD SPECIMENOrdering Facility: [facility] Address: [address] [place] [address] Performed By: #### 5 7021-8 ####[facility] LABCLIA [id number] [place] [address] Neutrophils/100 WBC (Bld) 77.5 % Normal [facility] Comment on above: Order Comment: Speci men Type: BLOOD SPECIMENOrdering Facility: [facility] Address: [address] [place] [address] Performed By: #### 5 7021-8 ####[facility] LABCLIA [id number] [place] [address] Nucleated RBC (Bld) [#/Vol] 10*3/uL Normal <0.01 [facility] Comment on above: Order Comment: Speci men Type: BLOOD SPECIMENOrdering Facility: [facility] Address: [address] [place] [address] Performed By: #### 5 7021-8 ####[facility] LABCLIA [id number] [place] [address] Nucleated RBC/100 WBC (Bld) [Ratio] 0.0 /100 WBC Normal [facility] Comment on above: Order Comment: Speci men Type: BLOOD SPECIMENOrdering Facility: [facility] Address: [address] [place] [address] Performed By: #### 5 7021-8 ####[facility] LABCLIA [id number] [place] [address] Platelet mean volume (Bld) [Entitic vol] 10.1 fL Normal 9.0-12.7 [facility] Comment on above: Order Comment: Speci men Type: BLOOD SPECIMENOrdering Facility: [facility] Address: [address] [place] [address] Performed By: #### 5 7021-8 ####[facility] LABCLIA [id number] [place] [address] Platelets (Bld) [#/Vol] 224 10*3/uL Normal 150-400 [facility] Comment on above: Order Comment: Speci men Type: BLOOD SPECIMENOrdering Facility: [facility] Address: [address] [place] [address] Performed By: #### 5 7021-8 ####[facility] LABCLIA [id number] [place] [address] RBC (Bld) [#/Vol] 3.99 10*6/uL Normal 3.90-5.20 [facility] Comment on above: Order Comment: Speci men Type: BLOOD SPECIMENOrdering Facility: [facility] Address: [address] [place] [address] Performed By: #### 5 7021-8 ####[facility] [id number] [place] [address] WBC (Bld) [#/Vol] 9.72 10*3/uL Normal 3.70-11.00 [facility] Comment on above: Order Comment: Speci men Type: BLOOD SPECIMENOrdering Facility: [facility] Address: [address] [place] [address] Performed By: #### 5 7021-8 ####[facility] BR[facility] LABIA [id number] [place] [address] CNOVSPon 12-26-2023 CNOVSP Visit (SP) Office (HEMASA) VY MCKEON ([id number]) 1990 F Date Time Provider Department 12/26/23 3:30 PM USMAN GOLDBERG During your visit today, we recorded the following information about you: Temperature Pulse Respiration Blood pressure 97.3 degrees 87/minute 16/minute 134/74 Weight Height Last Period 86.1 kg 1.702 m 06/24/23 Usman Goldberg MD 12/27/2023 12:46 PM Signed NAME: Vy Mckeon [facility] NO.: [id number] DATE OF SERVICE: December 26, 2023 (Krystal) [...] Normal [facility] Comprehensive metabolic 2000 panelon 12-26-2023 Albumin [Mass/Vol] 3.9 g/dL Normal 3.9-4.9 [facility] Comment on above: Order Comment: Speci men Type: BLOOD SPECIMENOrdering Facility: [facility] Address: [address] [place] [address] Performed By: #### 2 4323-8, 2531-0 ####[facility] LABCLIA [id number] [place] [address] ALP [Catalytic activity/Vol] 109 U/L Normal 34-123 [facility] Comment on above: Order Comment: Speci men Type: BLOOD SPECIMENOrdering Facility: [facility] Address: [address] [place] [address] Performed By: #### 2 4323-8, 2532-0 ####[facility] LABCLIA [id number] [place] [address] ALT [Catalytic activity/Vol] 26 U/L Normal 7-38 [facility] Comment on above: Order Comment: Speci men Type: BLOOD SPECIMENOrdering Facility: [facility] Address: [address] [place] [address] Performed By: #### 2 4323-8, 2531-0 ####[facility] LABCLIA [id number] [place] [address] Anion gap [Moles/Vol] 10 mmol/L Normal 9-18 [facility] Comment on above: Order Comment: Speci men Type: BLOOD SPECIMENOrdering Facility: [facility] Address: [address] [place] [address] Performed By: #### 2 4323-8, 2531-0 ####[facility] LABCLIA [id number] [place] [address] AST [Catalytic activity/Vol] 26 U/L Normal 13-35 [facility] Comment on above: Order Comment: Speci men Type: BLOOD SPECIMENOrdering Facility: [facility] Address: [address] [place] [address] Performed By: #### 2 4323-8, 2531-0 ####[facility] LABCLIA [id number] [place] [address] Bilirubin [Mass/Vol] 0.2 mg/dL Normal 0.2-1.3 [facility] Comment on above: Order Comment: Speci men Type: BLOOD SPECIMENOrdering Facility: [facility] Address: [address] [place] [address] Performed By: #### 2 4323-8, 2531-0 ####[facility] LABCLIA [id number] [place] [address] Calcium [Mass/Vol] 10.1 mg/dL Normal 8.5-10.2 [facility] Comment on above: Order Comment: Speci men Type: BLOOD SPECIMENOrdering Facility: [facility] Address: [address] [place], [place] [address] Performed By: #### 2 4323-8, 2532-0 ####[facility] LABCLIA [id number] [place] [address] Chloride [Moles/Vol] 103 mmol/L Normal 97-105 [facility] Comment on above: Order Comment: Speci men Type: BLOOD SPECIMENOrdering Facility: [facility] Address: [address] [place], [place] [address] Performed By: #### 2 4323-8, 0 ####[facility] LABCLIA [id number] [place] [address] CO2 [Moles/Vol] 23 mmol/L Normal 22-30 [facility] Comment on above: Order Comment: Speci men Type: BLOOD SPECIMENOrdering Facility: [facility] Address: [address] [place] [address] Performed By: #### 2 4323-8, ####[facility] LABCLIA [id number] [place] [address] Creatinine [Mass/Vol] 0.64 mg/dL Normal 0.58-0.96 [facility] Comment on above: Order Comment: Speci men Type: BLOOD SPECIMENOrdering Facility: [facility] Address: [address] [place] [address] Performed By: #### 2 4323-8, 0 ####[facility] LABCLIA [id number] [place] [address] Creatinine and Glomerular filtration rate.predicted panel (S/P/Bld) 118 mL/min/1.73m??? Normal >=60 [facility] Comment on above: Order Comment: Speci men Type: BLOOD SPECIMENOrdering Facility: [facility] Address: [address] [place] [address] Result Comment: Araseli mated Glomerular Filtration Rate [...] GFR. Performed By: #### 2 4323-8, 0 ####[facility] LABCLIA [id number] [place] [address] Glucose [Mass/Vol] 85 mg/dL Normal 74-99 [facility] Comment on above: Order Comment: Speci men Type: BLOOD SPECIMENOrdering Facility: [facility] Address: [address] [place] [address] Result Comment: The [place] [employer] (ADA) provides guidance for cutoff [...] Standards of Medical Care in Diabetes 2016, [place] [employer]. Diabetes Care. 2016.39(Suppl 1). Performed By: #### 2 4323-8, 0 ####[facility] LABCLIA [id number] [place] [address] Potassium [Moles/Vol] 4.1 mmol/L Normal 3.7-5.1 [facility] Comment on above: Order Comment: Speci men Type: BLOOD SPECIMENOrdering Facility: [facility] Address: [address] [place] [address] Performed By: #### 2 4323-8, 2531-0 ####[facility] LABCLIA [id number] [place] [address] Protein [Mass/Vol] 7.3 g/dL Normal 6.3-8.0 [facility] Comment on above: Order Comment: Speci men Type: BLOOD SPECIMENOrdering Facility: [facility] Address: [address] [place], [place] [address] Performed By: #### 2 4323-8, 2531-0 ####[facility] LABCLIA [id number] [place] [address] Sodium [Moles/Vol] 136 mmol/L Normal 136-144 [facility] Comment on above: Order Comment: Speci men Type: BLOOD SPECIMENOrdering Facility: [facility] Address: [address] [place], [place] [address] Performed By: #### 2 4323-8, 2531-0 ####[facility] LABCLIA [id number] [place] [address] Urea nitrogen [Mass/Vol] 6 mg/dL Low 7-21 [facility] Comment on above: Order Comment: Speci men Type: BLOOD SPECIMENOrdering Facility: [facility] Address: [address] [place] [address] Performed By: #### 2 4323-8, 2531-0 ####[facility] LABCLIA [id number] [place] [address] LDH SerPl-cCncon 12-26-2023 LDH [Catalytic activity/Vol] 190 U/L Normal 135-214 [facility] Comment on above: Order Comment: Speci men Type: BLOOD SPECIMENOrdering Facility: [facility] Address: [address] [place] [address] Result Comment: Hemo lysis present. The origin [...] indicated. Performed By: #### 2 4323-8, 2531-0 ####[facility] LABCLIA [id number] [place] [address] URETHRITIS/DISCHARGE PLUS VA GINITIS (HTRX)on 11-14-2023 ATOPOBIUM VAGINAE 19.497 Abnormal [facility] ATOPOBIUM VAGINAE Detected Abnormal [facility] BVAB 2,3 (BACTERIAL VAGINOSIS ASSOCIATED BACTERIA 2, 3); MOBILUNCUS SPP 15.096 Abnormal [facility] BVAB 2,3 (BACTERIAL VAGINOSIS ASSOCIATED BACTERIA 2, 3); MOBILUNCUS SPP Detected Abnormal [facility] DIANE ALBICANS, PARAPSILOSIS, TROPICALIS 0 [facility] DIANE ALBICANS, PARAPSILOSIS, TROPICALIS Not detected [facility] DIANE GLABRATA 0 [facility] Hea lthcare DIANE GLABRATA Not detected [facility] DIANE [facility]I [facility] KRUSEI Not detected [facility] CHLAMYDIA TRACHOMATIS 0 [facility] CHLAMYDIA TRACHOMATIS Not detected [facility] DFR (A1, A5), SUL (1,2) 0 PPM [facility] DFR (A1, A5), SUL (1,2) Not detected [facility] Healthcare ERMB, C; MEFA 14.773 Abnormal PPM [facility] care ERMB, C; MEFA Detected Abnormal [facility] care GARDNERELLA VAGINALIS 0 [facility] GARDNERELLA VAGINALIS Not detected [facility] Interpretation and review of laboratory results Abnormal [facility] MEGASPHAERA (TYPES 1, 2) 0 [facility] MEGASPHAERA (TYPES 1, 2) Not detected [facility] MYCOPLASMA GENITALIUM 0 [facility] MYCOPLASMA GENITALIUM Not detected [facility] NEISSERIA GONORRHOEAE 0 [facility] NEISSERIA GONORRHOEAE Not detected [facility] TET B, TET M 18.414 Abnormal PPM [facility] Healthc are TET B, TET M Detected Abnormal [facility] TRICHOMONAS VAGINALIS 0 [facility] TRICHOMONAS VAGINALIS Not detected [facility] Healthcar e Unlisted Lab Teston 11-13-19 24 Unlisted lab test see scanned report [facility] Urinalysis macro (dipstick) panel (U)on 11-12-2023 Bilirubin, UA Negative Negative - 4(70) +++ mg/dL [facility] Blood, UA Negative Negative - 50 Manny/mcL [facility] Clarity, UA Clear [facility] Healthca re Color, UA Yellow [facility] Healthcar e Glucose, UA Negative Negative - 2000(110) ++++ mg/dL [facility] Interpretation and review of laboratory results Normal [facility] Healthca re Ketones, UA Negative Negative - 160(16) ++++ mg/dL [facility] Leukocytes, UA Negative Negative - 500+++ Luli/mcL [facility] Nitrite, UA Negative Negative - Positive [facility] pH, UA 6.0 5 - 9 [facility] Protein, UA Negative Negative - 1999(20) ++++ mg/dL [facility] Spec Grav, UA 1.020 1 - 1.03 [facility] Urobilinogen, UA 1.0 0.2 - 12 mg/dL [facility] Healthcar e HCG ( test) IA.rapi d Ql (U)Ordered By: Karan Romero on 03-19-2023 HCG ( test) Ql (U) Negative [facility] HCG,Urineon 03-19-2023 Beta HCG ( test) Ql (U) Negative Normal [facility] Comment on above: Result Comment: PERF ORMED BY: [place] [address] PATHOLOGIST MEDIA INTERN JOYCE ACHARYA M.D. Performed By: #### U HCG #### [address] [place] 03-19-2023 L - -------- Specimen: [id number] Received: 03/19/23 Status: HEMANT Johnston Num: [id number] Spec Type: Surgical Subm Dr: Karan Romero MD Tissues: A Duodenum - Biopsy (DUODENAL BX) B Esophagus Biopsy (ESOPHAGEAL) Procedures: HE/4, Gross/Micro L4/2 -------- Age/ Patient Sex Location Account Attending Physician -------- Vy Mckeon 32/F [id number] Karan Romero MD -------- SPEC NUM: [id number] RECD: 03/19/23 STATUS: HEMANT JOHNSTON NUM: [id number] ASAD: 03/19[facility]23[facility] DR: Karan Romero MD ENTERED: 03/19/[address] [facility] [address]: MERE TYPE: Surgical DEPT: S ORDERED: [...] in one cassette labeled B1. -------- Specimen: [id number] Received: 03/19/23 Status: HEMANT Johnston Num: [id number] Spec Type: Surgical Subm Dr: Karan Romero MD Tissues: A Duodenum - Biopsy (DUODENAL BX) B Esophagus Biopsy (ESOPHAGEAL) Procedures: HE/4, Gross/Micro L4/2 -------- Patient: Vy Mckeon [id number] (Continued) -------- Specimen: [id number] Received: 03/19/23 (Continued) Signed (signature on file) Doris Reynolds MD 03/20/23 1117 -------- Specimen: [id number] Received: 03/19/23 Status: HEMANT Johnston Num: [id number] Spec Type: Surgical Subm Dr: Karan Romero MD Tissues: A Duodenum - Biopsy (DUODENAL BX) B Esophagus Biopsy (ESOPHAGEAL) Procedures: HE/4, Gross/Micro L4/2 -------- Patient: JoseVy [id number] (Continued) -------- Specimen: [id number] Received: 03/19/23 (Continued) Microscopic Description A. Two with H E stained material have been examined. The microscopic findings support the above pathologic diagnosis. B. Two with H E stained material have been examined. The microscopic findings support the above pathologic diagnosis. CPT Codes 01107 x 2 -------- -------- Specimen: [id number] Received: 03/19/23 Status: HEMANT Johnston Num: [id number] Spec Type: Surgical Subm Dr: Karan Romero MD Tissues: A Duodenum - Biopsy (DUODENAL BX) B Esophagus Biopsy (ESOPHAGEAL) Procedures: HE/4, Gross/Micro L4/2 -------- Patient: Vy Mckeon [id number] (Continued) -------- Signed (signature on file) Doris Reynolds MD 03/20/23 1117 Normal [facility] CBC AUTO DIFFon 02-09-2023 BASO # 0.0 103/ul Normal 0.0-0.1 [facility] Comment on above: Performed By: #### C BC ####[facility] [address] [place] [id number] Branham Basophils/100 WBC (Bld) 0.3 % Normal 0.2-2.0 [facility] Comment on above: Performed By: #### C BC ####[facility] [address] [place], [place] [address]UtBryant Branham EO # 0.2 103/ul Normal 0.0-0.7 [facility] Comment on above: Performed By: #### C BC ####[facility] [address] [place] [address]Dr. Zafar Branham Eosinophils/100 WBC (Bld) 1.7 % Normal 0.9-7.0 [facility] Comment on above: Performed By: #### C BC ####[facility] [address] [place], [place] [address]Dr. Zafar Branham Erythrocyte distribution width (RBC) [Ratio] 13.9 % Normal 11.0-15.0 [facility] Comment on above: Performed By: #### C BC ####[facility] [address] [place], [place] [address]Dr. Zafar Branham Hematocrit (Bld) [Volume fraction] 41.0 % Normal 36.0-48.0 [facility] Comment on above: Performed By: #### C BC ####[facility] [address] [place], [place] [address]Dr. Zafar Branham Hemoglobin (Bld) [Mass/Vol] 13.4 g/dL Normal 12.0-16.0 [facility] Comment on above: Performed By: #### C BC ####[facility] [address] [place], [place] [address]Dr. Zafar Branham IG # 0.03 10e3/ul Normal 0.00-0.03 [facility] Comment on above: Performed By: #### C BC ####[facility] [address] [place], [place] [address]Dr. Zafar Branham IG % 0.3 % Normal 0.0-0.5 [facility] Comment on above: Performed By: #### C BC ####[facility] [address] [place], [place] [address]Dr. Zafar Branham LYMPH # 1.4 103/ul Normal 1.2-3.8 [facility] Comment on above: Performed By: #### C BC ####[facility] [address] [place], [place] [address]Dr. Zafar Yonas Lymphocytes/100 WBC (Bld) 14.8 % Critically low 20.5-60.0 [facility] Comment on above: Performed By: #### C BC ####[facility] [address] [place] [address]Dr. Zafar Branham MANUAL DIFF REQ NO Normal [facility] Comment on above: Performed By: #### C BC ####[facility] [address] [place] [phone]. Zafar Branham MCH (RBC) [Entitic mass] 28.8 pg Normal 26.7-34.0 [facility] Comment on above: Performed By: #### C BC ####[facility] [address] [place] [address]Dr. Zafar Branham MCHC (RBC) [Mass/Vol] 32.7 g/dL Normal 29.9-35.2 [facility] Comment on above: Performed By: #### C BC ####[facility] [address] [place], [place] [address]Dr. Zafar Branham MCV (RBC) [Entitic vol] 88.0 fL Normal 81.0-99.0 [facility] Comment on above: Performed By: #### C BC ####[facility] [address] [place], [place] [address]Dr. Zafar Branham MONO # 0.4 103/ul Normal 0.3-0.8 [facility] Comment on above: Performed By: #### C BC ####[facility] [address] [place], [place] [address]Dr. Zafar Branham Monocytes/100 WBC (Bld) 3.9 % Normal 1.7-12.0 [facility] Comment on above: Performed By: #### C BC ####[facility] [address] [place], [place] [address]DrBryant Branham NEUT # 7.2 103/ul Critically high 1.4-6.5 [facility] Comment on above: Performed By: #### C BC ####[facility] [address] [place], [place] [address]Dr. Zafar Branham Neutrophils/100 WBC (Bld) 79.0 % Critically high 43.0-75.0 [facility] Comment on above: Performed By: #### C BC ####[facility] [address] [place] [id number] Branham Platelet mean volume (Bld) [Entitic vol] 10.7 fL Normal 9.5-13.5 [facility] Comment on above: Performed By: #### C BC ####[facility] [address] [place] [id number]. Zafar Branham PLT 353 103/ul Normal 150-450 [facility] Comment on above: Performed By: #### C BC ####[facility] [address] [place] [phone] Branham RBC 4.66 106/ul Normal 4.20-5.40 [facility] Comment on above: Performed By: #### C BC ####[facility] [address] [place] [phone]. Zafar Branham WBC 9.2 103/ul Normal 4.0-11.0 [facility] Comment on above: Performed By: #### C BC ####[facility] [address] [place] [phone]. Zafar Branham CRPon 02-09-2023 CRP 1.0 mg/dL Normal <=1.0 [facility] Comment on above: Performed By: #### C RP, CMP, TSH, LIPID ####[facility] [address] [place] [phone]. Zafar Branham FREE T4on 02-09-2023 Free T4 [Mass/Vol] 1.01 ng/dL Normal 0.76-1.46 [facility] Comment on above: Performed By: #### F T4 #### [facility] [address] [place], [place] [address] Dr. Zafar Branham LIPID PROFILEon 02-09-2023 CHOL-HDL RATIO NORM SEE BELOW Normal [facility] Comment on above: Result Comment: 3.3 - 4.4 LOW RISK 4.4 - 7.1 AVERAGE RISK 7.1 - 11.0 MODERATE RISK >11.0 HIGH RISK Performed By: #### C RP, CMP, TSH, LIPID ####[facility] [address] [place] [phone]. Zafar Branham Cholesterol [Mass/Vol] 230 mg/dL Critically high <=200 [facility] Comment on above: Performed By: #### C RP, CMP, TSH, LIPID ####[facility] [address] [place] [phone]. Zafar Branham Cholesterol in HDL [Mass/Vol] 71 mg/dL Critically high 40-60 [facility] Comment on above: Performed By: #### C RP, CMP, TSH, LIPID ####[facility] [address] [place] [address]Dr. Zafar Branham Cholesterol in LDL [Mass/Vol] 139.4 mg/dL Normal [facility] Comment on above: Performed By: #### C RP, CMP, TSH, LIPID ####[facility] [address] [place] [address]Dr. Zafar Branham Cholesterol.total/C holesterol in HDL [Mass ratio] 3.2 {ratio} Normal [facility] Comment on above: Performed By: #### C RP, CMP, TSH, LIPID ####[facility] [address] [place] [phone]. Zafar Branham HDL NORMAL > or = 60 mg/dl - LO W CARDIOVASCULAR RISK <40 mg/dl - HIGH CARDIOVASCULAR RISK Normal [facility] Comment on above: Performed By: #### C RP, CMP, TSH, LIPID ####[facility] [address] [place] [address]Dr. Zafar Branham LDL CALC NORMAL SEE BELOW Normal [facility] Comment on above: Result Comment: <100 mg/dl OPTIMAL 100 - 129 mg/dl NEAR OR ABOVE OPTIMAL 130 - 159 mg/dl BORDERLINE HIGH 160 - 189 mg/dl HIGH >190 mg/dl VERY HIGH Performed By: #### C RP, CMP, TSH, LIPID ####[facility] [address] [place] [address]Dr. Zafar Branham Triglyceride [Mass/Vol] 98 mg/dL Normal <=150 [facility] Comment on above: Performed By: #### C RP, CMP, TSH, LIPID ####[facility] [address] [place], [place] [address]ZkDr. Zafar Branham VLDL CALC 19.6 mg/dL Normal [facility] Comment on above: Performed By: #### C RP, CMP, TSH, LIPID ####[facility] [address] [place], [place] [address]SvDr. Zafar Branham URon 02-09-2023 , QUAL Negative Normal NEGATIVE [facility] Comment on above: Performed By: #### U AMIC, PREGU #### [facility] [address] [place] [address] [address] Zafar Branham PROF 14(COMP METB)on 023 Albumin [Mass/Vol] 4.0 g/dL Normal 3.4-5.0 [facility] Comment on above: Performed By: #### C RP, CMP, TSH, LIPID #### [facility] [address] [place] [address] [address] Zafar Branham Albumin/Globulin [Mass ratio] 0.9 {ratio} Normal [facility] Comment on above: Performed By: #### C RP, CMP, TSH, LIPID #### [facility] [address] [place] [address] [address] Zafar Branham ALP [Catalytic activity/Vol] 94 U/L Normal 46-116 [facility] Comment on above: Performed By: #### C RP, CMP, TSH, LIPID #### [facility] [address] [place] [address] [address] Zafar Branham ALT [Catalytic activity/Vol] 30 U/L Normal 14-59 [facility] Comment on above: Performed By: #### C RP, CMP, TSH, LIPID #### [facility] [address] [place] [address] [address] Zafar Branham Anion gap [Moles/Vol] 13.6 mmol/L Normal [facility] Comment on above: Performed By: #### C RP, CMP, TSH, LIPID #### [facility] [address] [place] [address] [address] Zafar Branham AST [Catalytic activity/Vol] 23 U/L Normal 15-37 [facility] Comment on above: Performed By: #### C RP, CMP, TSH, LIPID #### [facility] [address] [place] [address] [address] Zafar Branham Bilirubin [Mass/Vol] 0.3 mg/dL Normal 0.2-1.0 [facility] Comment on above: Performed By: #### C RP, CMP, TSH, LIPID #### [facility] [address] [place] [address] Dr. Zafar Branham Calcium [Mass/Vol] 9.7 mg/dL Normal 8.5-10.1 [facility] Comment on above: Performed By: #### C RP, CMP, TSH, LIPID #### [facility] [address] [place] [address] Dr. Zafar Branham Chloride [Moles/Vol] 100 mmol/L Normal 98-107 [facility] Comment on above: Performed By: #### C RP, CMP, TSH, LIPID #### [facility] [address] [place] [address] Dr. Zafar Branham CO2 [Moles/Vol] 26.6 mmol/L Normal 21.0-32.0 [facility] Comment on above: Performed By: #### C RP, CMP, TSH, LIPID #### [facility] [address] [place] [address] Dr. Zafar Branham Creatinine [Mass/Vol] 1.00 mg/dL Normal 0.55-1.02 [facility] Comment on above: Performed By: #### C RP, CMP, TSH, LIPID #### [facility] [address] [place] [address] Dr. Zafar Branham EGFR-AF ETHIOPIAN >60 Normal >=60 [facility] Comment on above: Performed By: #### C RP, CMP, TSH, LIPID #### [facility] [address] [place] [address] Dr. Zafar Branham EGFR-NON AF ETHIOPIAN >60 Normal >=60 [facility] Comment on above: Performed By: #### C RP, CMP, TSH, LIPID #### [facility] [address] [place] [address] Dr. Zafar Branham Globulin (S) [Mass/Vol] 4.5 g/dL Normal [facility] Comment on above: Performed By: #### C RP, CMP, TSH, LIPID #### [facility] [address] [place] [address] Dr. Zafar Branham Glucose [Mass/Vol] 93 mg/dL Normal 74-106 [facility] Comment on above: Performed By: #### C RP, CMP, TSH, LIPID #### [facility] [address] [place] [address] Dr. Zafar Branham Potassium [Moles/Vol] 4.2 mmol/L Normal 3.5-5.1 [facility] Comment on above: Performed By: #### C RP, CMP, TSH, LIPID #### [facility] [address] [place] [address] Dr. Zafar Branham Protein [Mass/Vol] 8.5 g/dL Critically high 6.4-8.2 [facility] Comment on above: Performed By: #### C RP, CMP, TSH, LIPID #### [facility] [address] [place] [address] Dr. Zafar Branham Sodium [Moles/Vol] 136 mmol/L Normal 136-145 [facility] Comment on above: Performed By: #### C RP, CMP, TSH, LIPID #### [facility] [address] [place] [address] Dr. Zafar Branham Urea nitrogen [Mass/Vol] 10.0 mg/dL Normal 7.0-18.0 [facility] Comment on above: Performed By: #### C RP, CMP, TSH, LIPID #### [facility] [address] [place] [address] Dr. Zafar Branham Urea nitrogen/Creatinine [Mass ratio] 10.0 mg/mg Normal [facility] Comment on above: Performed By: #### C RP, CMP, TSH, LIPID #### [facility] [address] [place] [address] Dr. Zafar Branham SED RATE WESTERGRENon 2022 SED RATE 49 mm/hr Critically high <=20 [facility] Comment on above: Performed By: #### S EDR ####[facility] [address] [address]Dr. Zafar Branham TSHon 02-09-2023 TSH 0.590 uIU/mL Normal 0.358-3.740 [facility] Comment on above: Performed By: #### C RP, CMP, TSH, LIPID #### [facility] [address] [address] [address] Zafar Branham UA RANDOM W/MICROSCOPICon BACTERIA NONE SEEN Normal NONE SEEN [facility] Comment on above: Performed By: #### U AMIC, PREGU #### [facility] [address] [address] [address] Zafar Branham Bilirubin Ql (U) Negative Normal NEGATIVE [facility] Comment on above: Performed By: #### U AMIC, PREGU #### [facility] [address] [address] [address] Zafar Branham CAST NONE SEEN Normal NONE SEEN [facility] Comment on above: Performed By: #### U AMIC, PREGU #### [facility] [address] [address] [address] Zafar Branham Clarity (U) CLEAR Normal CLEAR [facility] Comment on above: Performed By: #### U AMIC, PREGU #### [facility] [address] [address] [address] Zafar Branham Color (U) LT. YELLOW Normal YELLOW [facility] Comment on above: Performed By: #### U AMIC, PREGU #### [facility] [address] [address] [address] Zafar Branham Crystals LM Nom (Urine sed) NONE SEEN Normal NONE SEEN [facility] Comment on above: Performed By: #### U AMIC, PREGU #### [facility] [address] [address] [address] Zafar Branham Epithelial cells LM Ql (Urine sed) FEW Abnormal NONE SEEN /RARE [facility] Comment on above: Performed By: #### U AMIC, PREGU #### [facility] [address] [address] [address] Zafar Branham Glucose Ql (U) Negative Normal NEGATIVE [facility] Comment on above: Performed By: #### U AMIC, PREGU #### [facility] [address] [address] [address] Zafar Branham Hemoglobin Ql (U) SMALL Abnormal NEGATIVE [facility] Comment on above: Performed By: #### U AMIC, PREGU #### [facility] [address] [address] [address] Zafar Branham Ketones Ql (U) Negative Normal NEGATIVE [facility] Comment on above: Performed By: #### U AMIC, PREGU #### [facility] [address] [place] [address] Dr. Zafar Branham LEUKOCYTES Negative Normal NEGATIVE [facility] Comment on above: Performed By: #### U AMIC, PREGU #### [facility] [address] [address] [address] Zafar Branham MUCOUS NONE SEEN Normal NONE SEEN [facility] Comment on above: Performed By: #### U AMIC, PREGU #### [facility] [address] [address] [address] Zafar Branham Nitrite Ql (U) Negative Normal NEGATIVE [facility] Comment on above: Performed By: #### U AMIC, PREGU #### [facility] [address] [address] [address] Zafar Branham pH (U) 6.0 [pH] Normal 5-9 [facility] Comment on above: Performed By: #### U AMIC, PREGU #### [facility] [address] [address] [address] Zafar Branham RBC 0-2 Normal 0-2 [facility] Comment on above: Performed By: #### U AMIC, PREGU #### [facility] [address] [place] [address] Dr. Zafar Branham SPEC GRAVITY <=1.005 Abnormal 1.005-<=1.025 [facility] Comment on above: Performed By: #### U AMIC, PREGU #### [facility] [address] [address] [address] Zafar Branham UA PROTEIN Negative Normal NEGATIVE/ TRACE [facility] Comment on above: Performed By: #### U AMIC, PREGU #### [facility] [address] [address] [address] Zafar Branham Urobilinogen Qn (U) 0.2 {Ramy'U}/dL Normal 0.2 - 1. 0 [facility] Comment on above: Performed By: #### U AMIC, PREGU #### [facility] [address] [address] [address] Zafar Branham WBC NONE SEEN Normal NONE SEEN [facility] Comment on above: Performed By: #### U AMIC, PREGU #### [facility] [address] [address] [address] Zafar Branham XR knee RT 4V*on 02-07-2023 XR knee RT 4V* [facility] [employer] Other XR knee RT 4V* [facility] [employer] Other XR knee RT 4V* [address] [place] [address] [employer] Other XR knee RT 4V* [place] [address] No rt [employer] Other XR knee RT 4V* XRay Report [employer] Other XR knee RT 4V* Signed [employer] Other XR knee RT 4V* Patient: Vy Mckeon MR#: [id number] [employer] Other XR knee RT 4V* 5 [employer] Other XR knee RT 4V* : 1990 Acct:[id number] [employer] Other XR knee RT 4V* Age/Sex: 32 / F ADM Date: 02/07/23 [employer] Other XR knee RT 4V* [facility]: [facility] [employer] Other XR knee RT 4V* Attending Dr: Shayla DENNEY [employer] Other XR knee RT 4V* Copies to: JUMANA Christianson [employer] Other XR knee RT 4V* Ordering Provider: JUMANA Christianson [employer] Other XR knee RT 4V* Date of Service: 02/07/23 [employer] Other XR knee RT 4V* XR/XR knee RT 4V*: RIGHT KNEE PAIN [employer] Other XR knee RT 4V* RIGHT KNEE - 4 views [employer] Other XR knee RT 4V* COMPARISON: None Nort [employer] Other XR knee RT 4V* CLINICAL DATA: Patient fell last night and landed on right anterior knee. Pain, swelling and [employer] Other XR knee RT 4V* abrasions. [employer] Other XR knee RT 4V* AP, lateral and both oblique views were obtained. There is no fracture or dislocation. There is no [employer] Other XR knee RT 4V* significant knee effusion or focal soft tissue swelling. [employer] Other XR knee RT 4V* XR/XR knee RT 4V* [employer] Other XR knee RT 4V* IMPRESSION: [employer] Other XR knee RT 4V* NO ACUTE BONY INJURY. [employer] Other XR knee RT 4V* Impression dictated by: Rama Garsia M.D.02/07/2023 10:01 AM [employer] Other XR knee RT 4V* Dictation Location: RADIO-PC-10 [employer] Other XR knee RT 4V* Transcribed By: MILKA 02/07/23 1001 [employer] Other XR knee RT 4V* Dictated By: Rama Garsia MD 02/07/23 1000 [employer] Other XR knee RT 4V* Signed By: [employer] Other XR knee RT 4V* 02/07/23 1009 [employer] Other XR knee RT 4V* [facility] [place] [address] [place] [address] XRay Report Signed Patient: Vy Mckeon MR#: [id number] 5 : 1990 Acct:[id number] Age/Sex: 32 / F ADM Date: 02/07/23 [facility] Attending Dr: Shayla DENNEY Copies to: [...] MD 02/07/23 1000 Signed By: 02/07/23 1001 [facility] XR HIPS KARELY 5V W PELVISon XR [...] HCGon 07-04-2022 HCG QUANT 1 mIU/mL Normal [facility] Comment on above: Performed By: #### P REGQNT #### [facility] [address] [place] [address] Dr. Zafar Branham HCG RANGE SEE BELOW Normal [facility] Comment on above: Result Comment: 5-50 0.2-1 WEEK 50-500 1-2 WEEKS 100-5,000 2-3 WEEKS 500-10,000 3-4 WEEKS 1,000-50,000 4-5 WEEKS 10,000-100,000 5-6 WEEKS 15,000-200,000 6-8 WEEKS 10,000-100,000 2-3 MONTHS Performed By: #### P REGQNT #### [facility] [address] [place] [address] Dr. Zafar Branham PREG QUANT HCGon 06-08-2022 HCG QUANT 16 mIU/mL Normal [facility] Comment on above: Performed By: #### P REGQNT ####[facility] [address] [address]Dr. Zafar Branham HCG RANGE SEE BELOW Normal [facility] Comment on above: Result Comment: 5-50 0.2-1 WEEK 50-500 1-2 WEEKS 100-5,000 2-3 WEEKS 500-10,000 3-4 WEEKS 1,000-50,000 4-5 WEEKS 10,000-100,000 5-6 WEEKS 15,000-200,000 6-8 WEEKS 10,000-100,000 2-3 MONTHS Performed By: #### P REGQNT ####[facility] [address] [id number]. Zafar Branham CBC AUTO DIFFon 05-23-2022 BASO # 0.0 103/ul Normal 0.0-0.1 [facility] Comment on above: Performed By: #### C BC #### [facility] [address] [address] [address] Zafar Branham Basophils/100 WBC (Bld) 0.6 % Normal 0.2-2.0 [facility] Comment on above: Performed By: #### C BC #### [facility] [address] [address] [address] Zafar Branham EO # 0.3 103/ul Normal 0.0-0.7 [facility] Comment on above: Performed By: #### C BC #### [facility] [address] [address] [address] Zafar Branham Eosinophils/100 WBC (Bld) 6.5 % Normal 0.9-7.0 [facility] Comment on above: Performed By: #### C BC #### [facility] [address] [address] [address] Zafar Branham Erythrocyte distribution width (RBC) [Ratio] 12.5 % Normal 11.0-15.0 [facility] Comment on above: Performed By: #### C BC #### [facility] [address] [address] [address] Zafar Branham Hematocrit (Bld) [Volume fraction] 37.2 % Normal 36.0-48.0 [facility] Comment on above: Performed By: #### C BC #### [facility] [address] [place] [address] Dr. Zafar Branham Hemoglobin (Bld) [Mass/Vol] 12.1 g/dL Normal 12.0-16.0 [facility] Comment on above: Performed By: #### C BC #### [facility] [address] [place] [address] Dr. Zafar Branham IG # 0.01 10e3/ul Normal 0.00-0.03 [facility] Comment on above: Performed By: #### C BC #### [facility] [address] [place] [address] Dr. Zafar Branham IG % 0.2 % Normal 0.0-0.5 [facility] Comment on above: Performed By: #### C BC #### [facility] [address] [place] [address] Dr. Zafar Branham LYMPH # 1.5 103/ul Normal 1.2-3.8 [facility] Comment on above: Performed By: #### C BC #### [facility] [address] [place] [address] Dr. Zafar Branham Lymphocytes/100 WBC (Bld) 29.8 % Normal 20.5-60.0 [facility] Comment on above: Performed By: #### C BC #### [facility] [address] [place] [address] Dr. Zafar Branham MANUAL DIFF REQ NO Normal [facility] Comment on above: Performed By: #### C BC #### [facility] [address] [place] [address] Dr. Zafar Branham MCH (RBC) [Entitic mass] 29.1 pg Normal 26.7-34.0 [facility] Comment on above: Performed By: #### C BC #### [facility] [address] [place] [address] Dr. Zafar Branham MCHC (RBC) [Mass/Vol] 32.5 g/dL Normal 29.9-35.2 [facility] Comment on above: Performed By: #### C BC #### [facility] [address] [place] [address] Dr. Zafar Branham MCV (RBC) [Entitic vol] 89.4 fL Normal 81.0-99.0 [facility] Comment on above: Performed By: #### C BC #### [facility] [address] [place] [address] Dr. Zafar Branham MONO # 0.4 103/ul Normal 0.3-0.8 [facility] Comment on above: Performed By: #### C BC #### [facility] [address] [place] [address] Dr. Zafar Branham Monocytes/100 WBC (Bld) 7.9 % Normal 1.7-12.0 [facility] Comment on above: Performed By: #### C BC #### [facility] [address] [place] [address] Dr. Zafar Branham NEUT # 2.7 103/ul Normal 1.4-6.5 [facility] Comment on above: Performed By: #### C BC #### [facility] [address] [place] [address] Dr. Zafar Branham Neutrophils/100 WBC (Bld) 55.0 % Normal 43.0-75.0 [facility] Comment on above: Performed By: #### C BC #### [facility] [address] [place] [address] Dr. Zafar Branham Platelet mean volume (Bld) [Entitic vol] 10.0 fL Normal 9.5-13.5 [facility] Comment on above: Performed By: #### C BC #### [facility] [address] [place] [address] Dr. Zafar Branham PLT 229 103/ul Normal 150-450 [facility] Comment on above: Performed By: #### C BC #### [facility] [address] [place] [address] Dr. Zafar Branham RBC 4.16 106/ul Critically low 4.20-5.40 [facility] Comment on above: Performed By: #### C BC #### [facility] [address] [place] [address] Dr. Zafar Branham WBC 5.0 103/ul Normal 4.0-11.0 [facility] Comment on above: Performed By: #### C BC #### [facility] [address] [place] [address] Dr. Zafar Branham TYPE AND SCREENon 08-23-2022 TYPE AND SCREEN Negative Normal [facility] Comment on above: Performed By: #### T NS ####[facility] [address] [place], [place] [address]KaDr. Zafar Branham Covid-19 PCR ([facility])on 05-01 SARS-CoV-2 (COVID-19) RNA MANOLO+probe Ql (Unsp [...] for this test is supported by the [place] of Health and Human Service's (HHS's) declaration [...] consistent with SARS-CoV-2. Performed By: #### [facility] #### [facility] [address] [place], [place] [address] Dr. Zafar Branham US PREG TVon 05-18-2022 [...] BOBBI SIMONS Date: 2022-05-18 19:25 Normal [facility] US PREG TVon 05-03-2022 US PREG TV [...] BOBBI SIMONS Date: 2022-05-03 16:32 Normal [facility] Chlamydia/GC DNA, TPon 05-05 Chlamydia Probe, TP Negative Normal NEG [facility] Comment on above: Result Comment: CHLA [...] target. Performed By: #### C [facility] #### [address] [place] [address] [employer] Paralegal: King Boone MD Gonorrhea Probe, TP Negative Normal NEG [facility] Comment on above: Result Comment: NEIS [...] target. Performed By: #### C YTC #### [address] [address] [employer] Paralegal: King Boone MD HPV DNA High Riskon 05-05-20 20 HPV Interp [facility] Comment on above: Result Comment: This test [...] purposes. Performed By: #### H PVH #### [address] [address] [employer] Paralegal: King Boone MD HPV Type 16 Not Detected [facility] Comment on above: Performed By: #### H PVH #### [address] [address] [employer] Paralegal: King Boone MD HPV Type 18 Not Detected [facility] Comment on above: Performed By: #### H PVH #### [address] [address] [employer] Paralegal: King Boone MD Other High Risk HPV Not Detected [facility] Comment on above: Performed By: #### H PVH #### [facility] [employer] [address] [place] [address] [employer] Paralegal: King Boone MD HPV Sample .THIN PREP Normal [facility] Comment on above: Performed By: #### H PVH #### [facility] [place] [address] [employer] Paralegal: King Boone MD Source .ENDOCERVIX Normal [facility] Comment on above: Performed By: #### H PVH #### [facility] [place] [address] [employer] Paralegal: King Boone MD Otheron 05-04-2020 Direct Exam Negative [place], [place] VAGINITIS DNA PROBEon 2019 Direct Exam Positive Abnormal [place], [place] Direct Exam Method of testing is a DNA probe intended for detection and identification of Diane species, Gardnerella vaginalis, and Trichomonas vaginalis nucleic acid in vaginal fluid specimens from patients with symptoms of vaginitis/vaginosis. [place], [place] Interpretation and review of laboratory results Abnormal [place] Special Requests NOT REPORTED [place] Specimen Description .VAGINAL SWAB [place] Vaginitis DNA Probeon 2019 Vaginitis DNA [...] of vaginitis/vaginosis. Report Status FINAL 05/04/2020 Normal [facility] Comment on above: Performed By: #### V AGDNA #### [facility] [place], [place] [id number] [employer] Paralegal: King Boone MD Cytologyon 05-03-2020 Cytology (NOTE) INTERPRETATION Endocervical material, (Thin prep vial, Imaging-assisted review): Specimen Adequacy: Satisfactory for evaluation. - Endocervical/transfor mation zone component present. Descriptive Diagnosis: Negative for intraepithelial lesion or malignancy. Shift in ray suggestive of bacterial vaginosis. Comments: High Risk HPV testing was ordered. Yard Conductor: JAYLIN Higgins(ASCP) Electronically Signed Out ana/05/07/2020 Procedure/Addendum [...] REPORT Patient Name: VY MCKEON [facility] Rec: [id number] Path Number: [id number] [employer] [facility]AT[facility] [address] [place] [id number] Normal [facility] Comment on above: Performed By: #### P PPVP #### [facility] [address] [place] [address] [employer] Paralegal: King Boone MD Vital Signs Date Time Vital Sign Value Performing Clinician Facility 01-21-2024 11:59-0400 Body height 170.2 cm Ana Peoples MD Work Phone: [facility] [place] 01-21-2024 11:59-0400 Body mass index (BMI) [Ratio] 30.07 kg/m2 Ana Peoples MD Work Phone: [facility] [place] 01-21-2024 11:59-0400 Body weight 87.1 kg Ana Peoples MD Work Phone: [facility] [place] 01-21-2024 11:59-0400 Diastolic blood pressure 75 mm[Hg] Ana Peoples MD Work Phone: [facility] [place] 01-21-2024 11:59-0400 Heart rate 108 /min Ana Peoples MD Work Phone: [facility] [place] 01-21-2024 11:59-0400 Systolic blood pressure 125 mm[Hg] Ana Peoples MD Work Phone: [facility] [place] 01-21-2024 11:02-0400 Body height 170.2 cm Ana Peoples MD Work Phone: [facility] [place] 01-21-2024 11:02-0400 Body mass index (BMI) [Ratio] 30.07 kg/m2 Ana Peoples MD Work Phone: [facility] [place] 01-21-2024 11:02-0400 Body weight 87.09 kg Ana Peoples MD Work Phone: [facility] [place] 01-04-2024 14:31-0400 Body temperature 97.11 [degF] Fransico Sharp MD Work Phone: [facility] [place] 01-04-2024 14:31-0400 Diastolic blood pressure 83 mm[Hg] Fransico Sharp MD Work Phone: [facility] [place] 01-04-2024 14:31-0400 Heart rate 94 /min Fransico Sharp MD Work Phone: [facility] [place] 01-04-2024 14:31-0400 Respiratory rate 20 /min Fransico Sharp MD Work Phone: [facility] [place] 01-04-2024 14:31-0400 SaO2% (BldA) [Mass fraction] 99 % Fransico Sharp MD Work Phone: [facility] [place] 01-04-2024 14:31-0400 Systolic blood pressure 148 mm[Hg] Fransico Sharp MD Work Phone: [facility] [place] 12-17-2023 13:42-0400 Body height 170.2 cm Freddie Delgado [employer] Work Phone: [facility] 12-17-2023 13:42-0400 Body mass index (BMI) [Ratio] 29.47 kg/m2 Freddie Delgado [employer] Work Phone: [facility] 12-17-2023 13:42-0400 Body temperature 98.71 [degF] Freddie Delgado [employer]INE [employer] Work Phone: [facility] 12-17-2023 13:42-0400 Body weight 85.37 kg Freddie Delgado [employer] Work Phone: [facility] 12-17-2023 13:42-0400 Diastolic blood pressure 80 mm[Hg] Freddie Delgado [employer]INE [employer] Work Phone: [facility] 12-17-2023 13:42-0400 Heart rate 86 /min Freddie Delgado [employer] Work Phone: [facility] 12-17-2023 13:42-0400 SaO2% (BldA) [Mass fraction] 96 % Freddie Delgado [employer] Work Phone: [facility] 12-17-2023 13:42-0400 Systolic blood pressure 128 mm[Hg] Freddie Delgado [employer] Work Phone: [facility] 11-12-2023 13:13-0500 Body mass index (BMI) [Ratio] 28.47 kg/m2 Dionne BRAN Work Phone: [facility] 11-12-2023 13:13-0500 Body weight 82.46 kg Dionne Xiao SHANT Work Phone: [facility] 11-12-2023 13:13-0500 Diastolic blood pressure 72 mm[Hg] Dionne Xiao SHANT Work Phone: [facility] 11-12-2023 13:13-0500 Systolic blood pressure 114 mm[Hg] Dionne Xiao SHANT Work Phone: [facility] [facility] 05-29-2023 13:25-0400 Body height 170.18 cm Shayla Valle Other [employer] Other 05-29-2023 13:25-0400 Body mass index (BMI) [Ratio] 28.22 kg/m2 Shayla Valle Other [employer] Other 05-29-2023 13:25-0400 Body temperature 97.8 [degF] Shayla Valle Other [employer] Other 05-29-2023 13:25-0400 Body weight 81.74 kg Shayla Tori Other [employer] Other 05-29-2023 13:25-0400 Diastolic blood pressure 79 mm[Hg] Shayla Valle Other [employer] Other 05-29-2023 13:25-0400 Respiratory rate 18 /min Shayla Valle Other [employer] Other 05-29-2023 13:25-0400 SaO2% (BldA) [Mass fraction] 96 % Shayla Valle Other [employer] Other 05-29-2023 13:25-0400 Systolic blood pressure 127 mm[Hg] Shayla Valle Other [employer] Other 03-19-2023 14:37-0400 Diastolic blood pressure 69 mm[Hg] VB NET PROGRAMMER-C Shayla Valle Work Phone: [facility] 03-19-2023 14:37-0400 Heart rate 76 /min VB NET PROGRAMMER-C Shayla Tori Work Phone: [facility] 03-19-2023 14:37-0400 Respiratory rate 16 /min VB NET PROGRAMMER-C Shayla Tori Work Phone: [facility] 03-19-2023 14:37-0400 SaO2% (BldA) [Mass fraction] 96 % VB NET PROGRAMMER-C Shayla Valle Work Phone: [facility] 03-19-2023 14:37-0400 Systolic blood pressure 119 mm[Hg] VB NET PROGRAMMER-C Shayla Valle Work Phone: [facility] 03-19-2023 12:18-0400 Body height 170.18 cm VB NET PROGRAMMER-C Shayla Valle Work Phone: [facility] 03-19-2023 12:18-0400 Body temperature 97.9 [degF] VB NET PROGRAMMER-C Shayla Valle Work Phone: [facility] 03-19-2023 12:18-0400 Body weight 84.82 kg VB NET PROGRAMMER-C Shayla Valle Work Phone: [facility] 02-12-2023 14:30-0400 Body height 170.18 cm Yoel Jarrett Other [employer] Other 02-12-2023 14:30-0400 Body mass index (BMI) [Ratio] 30.54 kg/m2 Yoel Jarrett Other [employer] Other 02-12-2023 14:30-0400 Body weight 88.45 kg Yoel Jarrett Other [employer] Other 02-12-2023 14:30-0400 Diastolic blood pressure 80 mm[Hg] Yoel Jarrett Other [employer] Other 02-12-2023 14:30-0400 Systolic blood pressure 127 mm[Hg] Yoel Jarrett Other [employer] Other 02-07-2023 10:00-0400 Body height 170.18 cm Shayla Valle Other [employer] Other 02-07-2023 10:00-0400 Body mass index (BMI) [Ratio] 30.54 kg/m2 Shayla Valle Other [employer] Other 02-07-2023 10:00-0400 Body temperature 97.9 [degF] Shayla Valle Other [employer] Other 02-07-2023 10:00-0400 Body weight 88.45 kg Shayla Valle Other [employer] Other 02-07-2023 10:00-0400 Respiratory rate 18 /min Shayla Valle Other [employer] Other 02-07-2023 10:00-0400 SaO2% (BldA) [Mass fraction] 97 % Shayla Valle Other [employer] Other 05-03-2020 11:41-0400 BMI (Body Mass Index) 24.5 kg/m2 [employer] [facility] Work Phone: 05-03-2020 11:41-0400 Body Temperature 96.3 [degF] Sally [employer] [facility] Work Phone: 05-03-2020 11:41-0400 Body weight 70.9 kg [facility] Work Phone: 05-03-2020 11:41-0400 BP Diastolic 80 mm[Hg] [facility] Work Phone: 05-03-2020 11:41-0400 BP Systolic 120 mm[Hg] [facility] Work Phone: 05-03-2020 11:41-0400 BSA (Body Surface Area) 1.82 m2 [facility] Work Phone: 05-03-2020 11:41-0400 Height 170.18 cm [facility] Work Phone: 05-03-2020 11:41-0400 Pulse (Heart Rate) 86 /min [facility] Work Phone: 05-03-2020 11:41-0400 Pulse Oximetry 93 % [facility] Work Phone: 05-03-2020 11:41-0400 Respiratory Rate 18 /min [facility] Work Phone: 04-08-2020 08:37-0400 BMI (Body Mass Index) 24.3 kg/m2 [facility] Work Phone: 04-08-2020 08:37-0400 Body Temperature 99 [degF] [facility] Work Phone: 04-08-2020 08:37-0400 Body weight 70.4 kg [facility] Work Phone: 04-08-2020 08:37-0400 BP Diastolic 80 mm[Hg] [facility] Work Phone: 04-08-2020 08:37-0400 BP Systolic 110 mm[Hg] Sally [facility] Work Phone: 04-08-2020 08:37-0400 BSA (Body Surface Area) 1.82 m2 [facility]: 04-08-2020 08:37-0400 Height 170.18 cm [facility] Work Phone: 04-08-2020 08:37-0400 Pulse (Heart Rate) 82 /min [facility] Work Phone: 04-08-2020 08:37-0400 Pulse Oximetry 98 % [facility] Work Phone: 04-08-2020 08:37-0400 Respiratory Rate 18 /min [facility] Work Phone: 03-29-2020 09:52-0400 Body height 170.18 cm Sally Morejon [facility] Work Phone: [facility] Work Phone: Comment on above: self 03-29-2020 09:52-0400 Body mass index (BMI) [Ratio] 23.5 kg/m2 Sally Morejon [facility] Work Phone: [facility] Work Phone: Comment on above: self 03-29-2020 09:52-0400 Body surface area Derived from formula 1.79 m2 Sally Morejon [employer] Work Phone: [facility] Work Phone: Comment on above: self 03-29-2020 09:52-0400 Body weight 68.04 kg Sally Morejon [employer] Work Phone: [facility] Work Phone: Comment on above: self 10-14-2019 08:30-0500 BMI (Body Mass Index) 24.1 kg/m2 Sally [facility] Work Phone: 10-14-2019 08:30-0500 Body Temperature 98.5 [degF] [facility] Work Phone: 10-14-2019 08:30-0500 Body weight 69.76 kg [facility] Work Phone: 10-14-2019 08:30-0500 BP Diastolic 78 mm[Hg] [facility] Work Phone: 10-14-2019 08:30-0500 BP Systolic 132 mm[Hg] [facility] Work Phone: 10-14-2019 08:30-0500 BSA (Body Surface Area) 1.81 m2 [facility] Work Phone: 10-14-2019 08:30-0500 Height 170.18 cm [facility] Work Phone: 10-14-2019 08:30-0500 Pulse (Heart Rate) 88 /min [facility] Work Phone: 10-14-2019 08:30-0500 Pulse Oximetry 98 % [facility] Work Phone: 10-14-2019 08:30-0500 Respiratory Rate 18 /min [facility] Work Phone: 10-14-2019 08:30-0500 SaO2% (BldA) [Mass fraction] 98 % [facility] Work Phone: [facility] Work Phone: 09-04-2019 13:52-0500 BMI (Body Mass Index) 22.9 kg/m2 [facility] Work Phone: 09-04-2019 13:52-0500 Body Temperature 98.5 [degF] [facility] Work Phone: 09-04-2019 13:52-0500 Body weight 66.23 kg [facility] Work Phone: 09-04-2019 13:52-0500 BP Diastolic 90 mm[Hg] Sally [facility] Work Phone: 09-04-2019 13:52-0500 BP Systolic 122 mm[Hg] Sally [facility] Work Phone: 09-04-2019 13:52-0500 BSA (Body Surface Area) 1.77 m2 Sally [facility] Work Phone: 09-04-2019 13:52-0500 Height 170.18 cm Sally [facility] Work Phone: 09-04-2019 13:52-0500 Pulse (Heart Rate) 98 /min Sally [facility] Work Phone: 09-04-2019 13:52-0500 Pulse Oximetry 98 % Sally [facility] Work Phone: 09-04-2019 13:52-0500 Respiratory Rate 18 /min Sally [facility] Work Phone: 09-04-2019 13:52-0500 SaO2% (BldA) [Mass fraction] 98 % [facility] Work Phone: [facility] Work Phone: 08-19-2019 09:32-0500 BMI (Body Mass Index) 23.2 kg/m2 Sally [facility] Work Phone: 08-19-2019 09:32-0500 Body Temperature 98 [degF] Sally [facility] Work Phone: 08-19-2019 09:32-0500 Body weight 67.31 kg Sally [facility] Work Phone: 08-19-2019 09:32-0500 BP Diastolic 80 mm[Hg] Sally [facility] Work Phone: 08-19-2019 09:32-0500 BP Systolic 120 mm[Hg] Sally [facility] Work Phone: 08-19-2019 09:32-0500 BSA (Body Surface Area) 1.78 m2 Sally [facility] Work Phone: 08-19-2019 09:32-0500 Height 170.18 cm Sally [facility] Work Phone: 08-19-2019 09:32-0500 Pulse (Heart Rate) 90 /min Sally [facility] Work Phone: 08-19-2019 09:32-0500 Pulse Oximetry 98 % Sally [facility] Work Phone: 08-19-2019 09:32-0500 Respiratory Rate 18 /min [facility] Work Phone: 08-19-2019 09:32-0500 SaO2% (BldA) [Mass fraction] 98 % [facility] Work Phone: [facility] Work Phone: 07-28-2019 11:31-0400 BMI (Body Mass Index) 22.7 kg/m2 [facility] Work Phone: 07-28-2019 11:31-0400 Body Temperature 98.8 [degF] Sally [facility] Work Phone: 07-28-2019 11:31-0400 Body weight 65.77 kg [facility] Work Phone: 07-28-2019 11:31-0400 BP Diastolic 84 mm[Hg] Sally [facility] Work Phone: 07-28-2019 11:31-0400 BP Systolic 132 mm[Hg] [facility] Work Phone: 07-28-2019 11:31-0400 BSA (Body Surface Area) 1.76 m2 [facility] Work Phone: 07-28-2019 11:31-0400 Height 170.18 cm Sally [facility] Work Phone: 07-28-2019 11:31-0400 Pulse (Heart Rate) 65 /min [facility] Work Phone: 07-28-2019 11:31-0400 Pulse Oximetry 97 % Sally [facility] Work Phone: 07-28-2019 11:31-0400 Respiratory Rate 18 /min [facility] Work Phone: 07-28-2019 11:31-0400 SaO2% (BldA) [Mass fraction] 97 % Sally [facility] Work Phone: [facility] Work Phone: Encounters Encounter Date Encounter Type Care Provider Facility Start: 02-27-2024 End: 02-27-2024 ambulatory ELIAZAR CASTANEDA Not Available Start: 02-26-2024 Telephone encounter Daisy Douglass Hematology/Oncology Comment on above: Results - Ct; Patien t Update Start: 02-22-2024 End: 02-22-2024 [facility] Start: 02-20-2024 End: 02-20-2024 ambulatory [facility] Facility:[facility] Start: 02-13-2024 End: 02-15-2024 ambulatory GURJIT ROBIN [facility] Start: 02-11-2024 End: 02-11-2024 ambulatory ELIAZAR CASTANEDA Not Available Start: 01-29-2024 End: 01-29-2024 ambulatory CANDACE MORAN [facility] Start: 01-28-2024 End: 01-28-2024 ambulatory DIONNE XIAO Not Available Start: 01-25-2024 Telephone encounter Fransico kulkarni MD Work Phone: Plastic Surgery Comment on above: Appointment Start: 01-25-2024 End: 01-26-2024 ambulatory FIDENCIO ROJAS [facility] Start: 01-23-2024 ambulatory Usman [...] Appointment Start: 01-14-2024 End: 01-14-2024 ambulatory GURJIT [facility] Start: 01-10-2024 Telephone encounter Historical [facility] Start: 01-09-2024 Telephone encounter Fransico kulkarni [...] procedure Fransico Sharp MD Work Phone: [facility] Start: 12-26-2023 End: 12-27-2023 ambulatory FREDDIE DELGADO Facility:[facility] Start: 12-21-2023 Chart abstracting Usman rincon MD Work Phone: Hematology/Oncology Start: 12-17-2023 End: 12-17-2023 ambulatory [facility] Start: 12-17-2023 End: 12-17-2023 Office outpatient visit 10 minutes [facility] [employer]INE MECHANIC[employer] Work Phone: [facility] Comment on above: Nausea and vomiting, unspecified vomiting type (Primary Dx); Psychophysiological insomnia Start: 12-10-2023 End: 12-10-2023 ambulatory ELIAZAR CASTANEDA Not Available Start: 12-07-2023 Documentation procedure Chris Antonio LCGC Work Phone: Maternal- Medicine at [facility] Comment on above: Outgoing Ca ll Start: 11-20-2023 End: 11-21-2023 Orders Only Roshni Rodriguez RN [facility] Comment on above: Placenta previa ante in second trimester (Primary Dx); Multigravida of advanced maternal age in second trimester Start: 11-20-2023 End: 11-20-2023 Office outpatient visit 15 minutes Fidencio Rojas MD Work Phone: [facility]aternal [facility] [place] Comment on above: 20 weeks gestation o f (Primary Dx); Placenta previa antepartum in second trimester; Advanced maternal age in multigravida, second trimester Start: 11-13-2023 Orders Only Juan Ramon Sultana rnal- Medicine at [facility] Comment on above: Multigravida of adva nced maternal age in second trimester; Family history of autism; Family history of mental disorder Start: 11-12-2023 End: 11-12-2023 ambulatory DIONNE XIAO Not Available Start: 11-12-2023 Documentation procedure Chris Antonio LCGC Work Phone: Maternal- Medicine at [facility] Comment on above: Outgoing Ca ll Start: [...] Chris BLISS Work Phone: Maternal- Medicine at [facility] Comment on above: Incoming Ca ll Start: 10-23-2023 Orders Only Angela Guzman CERTIFIED ART THERAPIST Mat ernal- Medicine at [facility] Comment on above: Multigravida of adva nced maternal age in second trimester (Primary Dx); Family history of autism; Family history of mental disorder Start: 10-22-2023 End: 10-22-2023 ambulatory ELIAZAR R NORMA [facility] Start: 10-22-2023 End: 10-22-2023 Telemedicine consultation with patient Katarina Antonio [facility] Work Phone: Maternal- Medicine at [facility] Comment on above: Multigravida of adva nced maternal age in second trimester (Primary Dx); Family history of autism; Family history of mental disorder Start: 10-08-2023 End: 10-08-2023 ambulatory ELIAZAR NORMA Not Available Start: 08-30-2023 End: 08-30-2023 ambulatory ELIAZAR NORMA Not Available Start: 05-29-2023 End: 05-29-2023 ambulatory Shayla Valle Other [employer] Other Start: 05-29-2023 Office outpatient vi sit 15 minutes Shayla Valle [facility] Start: 03-19-2023 End: 03-19-2023 ambulatory NON STAFF Facility:[facility] Start: 03-19-2023 End: 03-19-2023 Admission to same day surgery center VB NET PROGRAMMER[employer]C Shayal Valle Work Phone: [facility] Work Phone: Start: 03-19-2023 End: 03-19-2023 ambulatory NON STAFF [facility] Work Phone: Start: 02-12-2023 End: 02-12-2023 ambulatory Yoel Jarrett Other [facility] [employer] Other Start: 02-12-2023 Office outpatient ne w 30 minutes Yoel Jarrett [facility] Start: 02-09-2023 End: 02-10-2023 ambulatory PRADEEP COULTER Facility:[facility] Start: 02-07-2023 Office outpatient ne w 20 minutes Shayla Valle [facility] Start: 02-07-2023 End: 02-07-2023 ambulatory Shayla Valle [facility] [employer] Other Start: 02-07-2023 End: 02-07-2023 Patient encounter procedure VB NET PROGRAMMER-C Shayla Caseymond Work Phone: [facility] Work Phone: Start: 12-27-2022 [...] End: 05-03-2020 ambulatory Candace Grossman Work Phone: [facility] Work Phone: Start: 05-03-2020 End: 05-04-2020 Patient encounter procedure CANDACE GROSSMAN [facility] Start: 05-03-2020 End: 05-03-2020 Subsequent hospital visit by physician ARMANI SOLITARIO [facility] Start: 04-08-2020 End: 04-08-2020 ambulatory Linnea Escobar Work Phone: [facility] Work Phone: Start: 03-29-2020 End: 03-29-2020 General Emilee Sanford Work Phone: [facility] Work Phone: Start: 03-29-2020 End: 03-29-2020 Telemedicine consultation with patient Candace Grossman Work Phone: [facility] Work Phone: Start: 01-08-2020 End: 01-08-2020 Telemedicine consultation with patient Candace Grossman Work Phone: [facility] Work Phone: Start: 12-30-2019 End: 12-30-2019 Patient encounter procedure Emilee Short Work Phone: [facility] Work Phone: Start: 12-30-2019 End: 12-30-2019 Telemedicine consultation with patient Candace Grossman Work Phone: [facility] Work Phone: Start: 10-14-2019 End: 10-14-2019 Established patient Bobbi Colon Work Phone: [facility] Work Phone: Start: 09-04-2019 End: 09-04-2019 Established patient Bobbi Colon Work Phone: [facility] Work Phone: Start: 08-19-2019 End: 08-19-2019 Nursing evaluation of patient and report Candace Grossman Work Phone: [facility] Work Phone: Start: 07-28-2019 End: 07-28-2019 Established patient Bobbi Colon Work Phone: [facility] Work Phone: Start: 07-28-2019 End: 07-28-2019 New patient Candace Grossman Work Phone: [facility] Work Phone: Start: 08-13-2017 End: 08-14-2017 [facility] Procedures Date Procedure Procedure Detail Performing Clinician Start: 01-21-2024 Us preg uterus after 1st trimest 10/01 gestation Ana Peoples MD Work Phone: Start: 11-12-2023 Urnls dip stick/tabl et rgnt non-auto w/o micrscp Dionne BRAN Work Phone: Start: 11-12-2023 URETHRITIS/DISCHARGE PLUS VAGINITIS (HTRX) Dionne BRAN Work Phone: Start: 10-25-2023 UNLISTED LAB TEST Miriam Antonio [facility] Work Phone: Start: 09-10-2023 Adult depression scr eening assessment Katarina Antonio [facility] Work Phone: Start: 03-19-2023 Esophagogastroduodenoscopy [employer] PROGRAM[employer]C Shayla Valle Work Phone: Start: 03-01-2023 Microscopic observat ion [Identifier] in Cervix by Cyto stain Dionne BRAN Work Phone: Start: 02-07-2023 X-ray of right knee VB NET PROGRAMMER- C Shayla Tori Work Phone: Start: 05-03-2020 Obtaining screen pap smear Candace Grossman Work Phone: Start: 05-03-2020 Iaad ia chlamydia trachomatis CANDACE GROSSMAN Start: 05-03-2020 Iadna diane specie s direct probe tq CANDACE GROSSMAN Start: 05-03-2020 Iadna diane specie s direct probe tq Candace Grossman Work Phone: Start: 05-03-2020 Microscopic observat ion [Identifier] in Cervix by Cyto stain Katarina MUNOZ Work Phone: Start: 04-08-2020 Diast bp 80-89 mm hg Eva ra Escobar Work Phone: Start: 04-08-2020 Etonogestrel implant system Linnea Luz Work Phone: Start: 04-08-2020 Insj non-biodegradab le drug delivery implant Linnea Samaniegole Work Phone: Start: 04-08-2020 Lidocaine 2% with Ep inephrine INJ (Xylocaine W/Epi) Linneamonroe Escobar Work Phone: Start: 04-08-2020 Syst bp lt 130 mm hg Eva ra Escobar Work Phone: Start: 04-08-2020 Therapeutic prophyla ctic/dx injection subq/im Linneamonroe Escobar Work Phone: Start: 03-29-2020 no recent [...] Use Disorders Identification Test ___(0-40) Candace Grossman [employer] Work Phone: Start: 07-28-2019 ANXIETY DISORDER NOS [...] C assie Jean-Pierre Start: 07-28-2019 Surgical procedure Stephens ie Jean-Pierre Start: 07-28-2019 Syst bp ge 130 - 139mm hg Candace Grossman Work Phone: NEGATED: Highlighted row has not occurred!Start: 04-08-2020 currently nursing Sally Morejon NEGATED: Highlighted row has not occurred!Start: 07-28-2019 currently Sally Jean-Pierre Plan of Treatment Date Care Activity Detail Author Start: 2048 RSV Vaccine (1 - 1-d ose 60+ series) RSV Vaccine (1 - 1-dose 60+ series) [facility] Start: 01-02-2034 Urine microalbumin profile DTaP,Tdap,Td Vaccine (7 - Td or Tdap) [facility] Start: 03-12-2028 Screening for malign ant neoplasm of cervix HPV/Cotest [facility] Start: 03-01-2028 Screening for malign ant neoplasm of cervix [facility] Start: 01-25-2028 DTaP,Tdap and Td Vaccines (6 - Td or Tdap) DTaP,Tdap and Td Vaccines (6 - Td or Tdap) [facility] Start: 01-25-2028 Urine microalbumin profile DTaP,Tdap,Td Vaccine (2 - Td or Tdap) [facility] Start: 12-16-2024 Adult BMI Screening Adult BMI Screen ing [facility] Start: 12-16-2024 Tobacco Screening Tobacco Screening [facility] Start: 10-23-2024 End: 10-23-2024 Unlisted Lab Test Unlisted Lab Test Lab Routine Multigravida of advanced maternal age in second trimester Family history of autism Family history of mental disorder Expected: 10/23/2024 (Approximate), Expires: 10/23/2024 [facility] Work Phone: Comment on above: Expected: 10/23/2024 (Approximate), Expires: 10/23/2024 Start: 09-10-2024 Adult BMI Screening Adult BMI Screen ing [facility] Start: 09-10-2024 Depression Screening Depression Scre ening [facility] Start: 09-10-2024 Tobacco Screening Tobacco Screening [facility] Start: 03-17-2024 End: 03-17-2024 Admission to same day surgery center 03/17/2024 11:30 AM EDT Visit (SP) Office Plastic Surgery [address] [place] [address] Tana Cervantes, TANK TR[employer] ENGINE MECHANIC.[employer] [address] [place] [address] post op Plastic Surgery Comment on above: [...] 10:45 AM EDT Hospital Encounter Admitting [address] [place] [address] Fransico Sharp MD [address] [place] [address] Malignant melanoma of skin (HCC) [C43.9] Admitting Comment on above: Malignant melanoma o f skin (HCC) [C43.9] Start: 03-14-2024 End: 03-14-2024 Patient encounter procedure 03/14/2024 8:30 AM EDT Appointment Molecular Imaging [address] [place] [address] MELANOMA-NM LYMPH NODE IMAGING [facility] Comment on above: MELANOMA-NM LYMPH NO DE IMAGING Start: 03-07-2024 End: 03-07-2024 Anesthesia consultation 03/07/2024 1:20 PM EDT PAT Pre Anesthesia [address] [place] [address] 9, [address] [place] [address] pacc Pre Anesthesia Comment on above: pacc Start: 02-22-2024 End: 02-22-2024 Patient encounter procedure 02/22/2024 10:45 AM EDT Appointment Radiology Pet CT [address] [place] [address] ct chest and stn w Radiology Pet CT Comment on above: ct chest and stn w Start: 02-20-2024 End: 02-20-2024 ambulatory 02/20/2024 3:00 PM EDT Results Only [facility] [address] [place] [address] [facility] Start: 02-20-2024 End: 01-22-2025 CBC W Auto Differential panel - Blood COMPLETE BLOOD COUNT AND DIFFERENTIAL Lab Routine Malignant melanoma of skin (HCC) Expected: 02/20/2024 (Approximate), Expires: 01/22/2025 [facility] Comment on above: Expected: 02/20/2024 (Approximate), Expires: 01/22/2025 Start: 02-20-2024 End: 01-22-2025 Comprehensive metabolic 2000 panel - Serum or Plasma COMPREHENSIVE METABOLIC PANEL Lab Routine Malignant melanoma of skin (HCC) Expected: 02/20/2024 (Approximate), Expires: 01/22/2025 [facility] Comment on above: Expected: 02/20/2024 (Approximate), Expires: 01/22/2025 Start: 02-20-2024 End: 02-21-2025 CT Chest W contrast IV CT CHEST W IVCON Radiology Routine Malignant melanoma of skin (HCC) Expected: 02/20/2024 (Approximate), Expires: 02/21/2025 [facility] Comment on above: Expected: 02/20/2024 (Approximate), Expires: 02/21/2025 Start: 02-20-2024 End: 02-21-2025 CT Neck W contrast IV CT NECK SOFT TISSUE W IVCON Radiology Routine Malignant melanoma of skin (HCC) Expected: 02/20/2024 (Approximate), Expires: 02/21/2025 [facility] Work Phone: Comment on above: Expected: 02/20/2024 (Approximate), Expires: 02/21/2025 Start: 02-20-2024 End: 01-22-2025 Lactate dehydrogenase [Enzymatic activity/volume] in Serum or Plasma LACTATE DEHYDROGENASE Lab Routine Malignant melanoma of skin (HCC) Expected: 02/20/2024 (Approximate), Expires: 01/22/2025 [facility] Comment on above: Expected: 02/20/2024 (Approximate), Expires: 01/22/2025 Start: 02-19-2024 Subsequent hospital visit by physician 02/19/2024 Hospital Encounter Surgery [facility] [address] [address] Fransico Sharp MD [address] [place] [address] Malignant melanoma of skin (HCC) [C43.9] Surgery [...] Start: 02-12-2024 End: 02-12-2024 Patient encounter procedure [facility] - [facility] Comment on above: MELANOMA-NM LYMPH NO DE IMAGING Start: 01-14-2024 End: 01-14-2024 Telemedicine consultation with patient 01/14/2024 10:15 AM EDT Telemedicine [facility] [address] [place] [address] [address] [place] [address] HaydenGurjit MD [address] [facility], [address] [place] [address] [facility] Start: 12-17-2023 End: 12-17-2023 Patient encounter procedure 12/17/2023 1:45 PM EDT Office Visit [facility] [address] [place] [address] Freddie Delgado APRN-DERRICK FOLLOWER [address] [place] [address], [facility] [address] [facility] Start: 12-10-2023 End: 12-10-2023 Patient encounter procedure 12/10/2023 2:20 PM EDT Routine [facility] [address] [place] [id number] Eliazar Castaneda, [address] [place] [address] [facility] Start: 11-20-2023 End: 11-20-2023 Patient encounter procedure 11/20/2023 8:00 AM EST Appointment [facility] - Ultrasound [address] [place] [id number] [facility] Start: 11-12-2023 End: 11-12-2024 US for US OB ANATOMY SINGLE W US OB CERVICAL LENGTH Imaging Routine Screening, , for anatomic survey Expected: 11/12/2023 (Approximate), Expires: 11/12/2024 [facility] Comment on above: Expected: 11/12/2023 (Approximate), Expires: 11/12/2024 Start: 10-01-2023 Behavioral Health Screening Behavioral Health Screening [facility] Start: 10-01-2023 Depression Assessment Depression Ass essment [facility] Start: 06-01-2023 Covid-19 Vaccine ( season) Covid-19 Vaccine () [facility] Start: 06-01-2023 Influenza vaccination P [facility] Start: 05-03-2023 Screening for malign ant neoplasm of cervix Pap Smear [facility] Start: 03-19-2023 [facility] Start: 06-02-2020 [facility] Work Phone: Start: 06-01-2020 Influenza vaccination Flu vaccine (# 1) [facility] Start: 12-02-2019 Dental Comp Exam [facility] Work Phone: Start: 11-17-2019 [facility] Work Phone: Start: 10-21-2019 Lipid 1996 panel [facility] Work Phone: Start: 10-14-2019 [facility] Work Phone: Comment on above: Note: Please make a referral to: Start: 09-16-2019 Dental Comp Exam [facility] Work Phone: Start: 08-25-2019 Medical Establ ished Patient [facility] Work Phone: Start: 08-20-2019 Urine Pregnanc y Test, In House Health [facility] Work Phone: Start: 2018 Screening for malign ant neoplasm of cervix HPV Testing [facility] Start: 2009 Screening for malign ant neoplasm of cervix [facility] Start: 2007 DTaP/Tdap/Td vaccine (1 - Tdap) DTaP/Tdap/Td vaccine (1 - Tdap) [place] Start: 2007 Hepatitis B Vaccine (1 of 3 - 19+ 3-dose series) Hepatitis B Vaccine (1 of 3 - 19+ 3-dose series) [facility] Start: 2006 Adult BMI Follow Up Plan Adult BMI Follow Up Plan [facility] Start: 2006 Annual PCP Team Supervisor [employer] lorne Disease Visit Annual PCP Team Chronic Disease Visit [facility] Start: 2006 Hepatitis C screening Hepatitis C Sc reening [facility] Start: 2006 HIV screening HIV Screening [facility] Start: 2006 Spirometry Spirometry [facility] Start: 2003 HIV screening HIV screen Sil [place] [facility] [place] Start: 1989 Varicella vaccine (1 of 2 - 2-dose childhood series) Varicella vaccine (1 of 2 - 2-dose childhood series) [facility] Adjt tis trns/reargm t f/c/c/m/n/a/g/h/f 10sqcm/< TRANSFER / REARRANGEMENT ADJACENT TISSUE FACE/NECK DEFECT 10 SQ CM OR LESS Malignant melanoma of skin (HCC) [facility] A60 Alpha fetoprotein, maternal Alpha fetoprotein, maternal Lab Routine Second trimester Ordered: 11/12/2023 [facility] Work Phone: Comment on above: Ordered: 11/12/2023 Bx/exc lymph node op en deep cervical node BIOPSY NODE CERVICAL NECK Malignant melanoma of skin (HCC) [facility] A60 End: 05-03-2020 C.trachomatis N.gonorrhoeae DNA, Thin Prep C.trachomatis N.gonorrhoeae DNA, Thin Prep Microbiology Routine Once for 1 Occurrences starting 05/03/2020 until 05/03/2020 [facility] Comment on above: Once for 1 Occurrenc es starting 05/03/2020 until 05/03/2020 C.trachomatis N.gonorrhoeae DNA, Thin Prep C.trachomatis N.gonorrhoeae DNA, Thin Prep Microbiology Routine 05/03/2020 7:32 AM EDT [facility] [place] Excision malignant lesion f/e/e/n/l >4.0 cm EXCISION MALIGNANT LESION FACE OVER 4.0 CM Malignant melanoma of skin (HCC) [facility] A60 Inj radioactive trac er for id of sentinel node INJECTION PROCEDURE RADIOACTIVE TRACER FOR IDENTIFICATION OF SENTINEL NODE Malignant melanoma of skin (HCC) [facility] A60 Intraop sentinel lym ph node id w/dye injection INTRAOPERATIVE ID OF SENTINEL LYMPH NODE(S) INCL'D INJECTION OF NON-RAD DYE WHEN PERFORMED Malignant melanoma of skin (HCC) [facility] A60 End: 02-02-2025 NM Lymph node Views NM LN IMAGING MELANOMA Radiology Routine Malignant melanoma of skin (HCC) 1 Occurrences starting 01/06/2024 until 02/02/2025 [facility] Work Phone: Comment on above: 1 Occurrences starti ng 01/06/2024 until 02/02/2025 Patient Education Hiatal Hernia (DC) [facility] Work Phone: [facility] A[facility] Immunizations Immunization Date Immunization Notes Care Provider Maryuri gómez 05-11-2023 influenza virus vaccine, unspecified formulation Katarina Paco [facility] Work Phone: [facility] 07-16-2022 SARS-COV-2 (COVID-19 ) vaccine, mRNA, spike protein, LNP, bivalent, PF Dionne BRAN Work Phone: [facility] 01-24-2018 tetanus toxoid, redu camden diphtheria toxoid, and acellular pertussis vaccine, adsorbed Dionne BRAN Work Phone: [facility] Payers Date Payer Category Payer Self-pay 2022 Medicaid [id number] 2019 Unknown 1 - [place] [employer] [facility] [id number] [id number] 2017 Unknown [id number] 1988 Unknown [id number] 2.16.84 0.1.261489.3.579.2.593 1988 Unknown [id number] 2.16.84 0.1.324879.3.579.2.593 1988 Unknown [id number] 2.16.84 0.1.156219.3.579.2.593 1988 Unknown [id number] 2.16.84 0.1.188010.3.579.2.593 1988 Unknown [id number] 2.16.84 0.1.117434.3.579.2.593 1988 Unknown [id number] 2.16.84 0.1.953980.3.579.2.593 1988 Unknown [id number] 2.16.84 0.1.017142.3.579.2.593 1988 Unknown [id number] 2.16.84 0.1.973111.3.579.2.593 1988 Unknown [id number] 2.16.84 0.1.902904.3.579.2.593 1988 Unknown [id number] 2.16.8 40.1.156086.3.579.2.1285 1988 Unknown [id number] 2.16.8 40.1.825995.3.579.2.1285 1988 Unknown [id number] 2.16.8 40.1.881683.3.579.2.1285 1988 Unknown [id number] 2.16.8 40.1.048931.3.579.2.1285 1988 Unknown [id number] 2.16.8 40.1.741499.3.579.2.1285 1988 Unknown [id number] 2.16.84 0.1.365514.3.579.2.1285 1988 Unknown [id number] 2.16.8 40.1.434287.3.579.2.1285 1988 Unknown [id number] 2.16.8 40.1.960272.3.579.2.1285 1988 Unknown [id number] 2.16.8 40.1.934692.3.579.2.1285 1988 Unknown [id number] 2.16.84 0.1.770043.3.579.2.9 1988 Unknown [id number] 2.16.84 0.1.827396.3.579.2.1258 1988 Unknown [id number] 2.16.84 0.1.823049.3.579.2.1258 1988 Unknown [id number] 2.16.84 0.1.795879.3.579.2.1258 1988 Unknown [id number] 2.16.84 0.1.788178.3.579.2.1258 1988 Unknown [id number] 2.16.84 0.1.359404.3.579.2.1258 1988 Unknown [id number] 2.16.84 0.1.743468.3.579.2.1258 1988 Unknown [id number] 2.16.840 .1.507473.3.579.2.9 1959 Medicaid [id number] 2. 16.840.1.791742.19 Self-pay [id number] 2.16.840 .1.159006.3.140.1.76022.5.4 Unknown [employer] [id number] Unknown [id number] 2.16.8 40.1.288332.3.579.2.531 Unknown [id number] 2.16.8 40.1.568264.3.579.2.531 Social History Date Type Detail Facility Assertion Alcohol consumpt ion screening (procedure) [facility] Work Phone: Assertion [facility] [employer] [facility] Assertion Finding of alcoh ol intake (finding) [facility] Work Phone: Assertion Sexually active (finding) [facility] Work Phone: Assertion Gender identity finding (finding) [facility] Work Phone: Assertion Finding of sexua l orientation (finding) [facility] Work Phone: Tobacco smoking status Unknown if ever smoked [facility] Assertion Emotional stress (finding) [facility] Work Phone: Start: 1990 Sex Assigned At Not on file [facility] [place], [place] Assertion Contraception (finding) [facility] Work Phone: Start: 09-10-2023 End: 02-20-2024 Sex Assigned At [facility] Start: 1990 Sex Assigned At Female [facility] Start: 04-05-2022 End: 12-26-2023 Tobacco smoking status NHIS Never smoked tobacco [facility] Start: 04-05-2022 End: 12-26-2023 Tobacco use and exposure Smokeless tobacco non-user [facility] Start: 10-10-2023 End: 12-17-2023 Alcohol intake Ex-drinker (finding) [facility] Start: 09-10-2023 End: 02-20-2024 History of Social function [facility] How hard is it for you to pay for the very basics like food, housing, medical care, and heating Very hard [facility] Start: 07-12-2023 [facility] Start: 11-12-2023 Alcohol intake Lifetime non-d rhys (finding) [facility] Start: 03-09-2023 Education [facility] Start: 03-09-2023 Alcohol Comment Caffeine intak e: 1-2 cups per day coffee, pop [facility] Start: 12-26-2023 End: 01-21-2024 Alcohol intake Current drinker of alcohol (finding) [facility] NEGATED: Highlighted row Assertion He has not had 5 or more drinks in a day within the past year. [facility] Work Phone: NEGATED: Highlighted row Assertion Exposure to pollution (event) [facility] Work Phone: NEGATED: Highlighted row Assertion Tobacco user (finding) [facility] Work Phone: NEGATED: Highlighted row Assertion Current drinker of alcohol (finding) [facility] Work Phone: NEGATED: Highlighted row Assertion Finding relating to drug misuse behavior (finding) [facility] Work Phone: Goals Date Patient Goal Desired Activity /State Personal health goal Mental Status Date Assessment Result Facility Cognitive function 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 Will need a chest ct later. [facility] Work Phone: 02-26-2024 Miscellaneous Notes She texted [...] Daisy Murray RN documented in this encounter [facility] 02-26-2024 Telephone encounter Note Patient calling. Doesn't know how to proceed. States her oncologist is out of town and no one can read the results. States she is 35 weeks . Please call patient back to discuss. [facility] 02-26-2024 Telephone encounter Note Pt calling for CT results. She is aware Dr Deshpande is out of office this week and will be in touch with his response Sunday. [place]: Please advise Daisy Murray RN [facility] 02-22-2024 Note HNO ID: [id number] Author: PACHECO BOWEN RN Service: ? Author [...] DATE: February 22, 2024 TIME: 10:46 AM [facility] 02-22-2024 Note HNO ID: [id number] Author: BRANDON COULTER RT(R) Service: ? Author Type: Technologist Type: [...] PATIENT PRESENTS WITH AN IMPLANTABLE OR ATTACHED AIR DEFENSE SPECIALIST: No RADIOLOGY DEPARTMENT: CT; Exam(s) Completed: Chest and Neck PERIPHERAL IV DATA: Site assessment: Clean,Dry and Intact, Site disposition Discontinued SIGNED BY: Brandon Coulter RT(R) February 22, 2024 11:10 AM [facility] 01-25-2024 Telephone encounter Note Pt is not able to make the appt on 02/11; amina wondering if this should be on March 14 instead? Thanks [facility] 01-25-2024 Miscellaneous Notes Pt is not able to make the appt on 02/11; carlo wondering if this should be on March 14 instead? Thanks documented in this encounter [facility] 01-24-2024 Telephone encounter Note Vy is scheduled for her CT scan on 02/21 at 11am. She is scheduled for her labwork still, on 02/19. I spoke with Vy and she is in agreement. Angela Arthur [facility] 01-24-2024 Miscellaneous Notes Vy is scheduled for her CT scan on 02/21 at 11am. She is scheduled for her labwork still, on 02/19. I spoke with Vy and she is in agreement. Thanks, Angela Hilario Clerical: Please call pt to schedule CT scans. Brandon Churchill, RN It's ok to move up - [...] Vy Deshpande: Please advise Daisy Murray RN We won's be doing scans for 4 weeks.... that works out to be around 33 weeks gestation Does that sound right? (February 19) Thanks, louisa. Pt calls regarding CT scans. Please place orders. Thanks! Brandon Churchill RN Images from the original note were not included. documented in this encounter [facility] 01-24-2024 Telephone encounter Note Clerical: Please call pt to schedule CT scans. Brandon Churchill RN [facility] Work Phone: 01-24-2024 Telephone encounter Note It's ok to move up - but I'd want to know closer to delivery (33 weeks - 34 weeks) because then there won't be a need for additional scans later. Labs are to be done prior to CT. [facility] 01-24-2024 Telephone encounter Note Images from [...] CT ahead of 02/19? Brandon Churchill RN [facility] 01-24-2024 Telephone encounter Note Is the [...] Vy Deshpande: Please advise Daisy Murray RN [facility] 01-23-2024 Telephone encounter Note We won's be doing scans for 4 weeks.... that works out to be around 33 weeks gestation Does that sound right? (February 19) Thanks, louisa. [facility] 01-23-2024 Telephone encounter Note Pt calls regarding CT scans. Please place orders. Thanks! Brandon Churchill, BRITNEY [facility] 01-22-2024 Telephone encounter Note 01/22/2024 MFM [...] known. All questions answered. Ana Peoples MD [facility] 01-22-2024 Miscellaneous Notes 01/22/2024 [facility] Pt called and identified ~ 12:30 [...] Ana Peoples MD documented in this encounter [facility] 01-22-2024 Note HNO ID: [id number] Author: ANA PEOPLES MD Service: ? Author Type: Physician Type: Progress Notes Filed: 01/22/2024 11:18 Note Text: MATERNAL MEDICINE CONSULT SERVICE DATE: January 22, 2024 SERVICE TIME: 11:12 AM REQUESTING PROVIDER: Aron Subjective HISTORY OF THE PRESENT ILLNESS: Vy [...] Skin cancer Current Assessment AND Plan 01/22/2024 [facility] Pt is a 33 year old 29w4d with a new diagnosis of malignant melanoma located above the left upper lip. Oncologist Usman Goldberg MD Surgeon Fransico Sharp MD Pts general OBGYN in [place], [place]: Eliazar Castaneda MD The plan is for wide local excision with reconstruction, which may take multiple trips to the OR. The OR plan involves radioactive tracer for sentinal node She has not been imaged for staging. She comes to [facility] today for discussion on when to [...] with more than 50% of the total gopt-zf-nioy time of the visit in counseling / coordination of care. I shared my findings and recommendations via the shared medical record or via the mail to the referring provider. Ana Peoples MD [facility] 01-22-2024 Telephone encounter Note Images from the original note were not included. [facility] 01-22-2024 History of Present illness Narrative MATERNAL MEDICINE CONSULT SERVICE DATE: January 22, 2024 SERVICE TIME: 11:12 AM REQUESTING PROVIDER: Aron Subjective HISTORY OF THE PRESENT ILLNESS: Vy [...] Skin cancer Current Assessment & Plan 01/22/2024 [facility] Pt is a 33 year old 29w4d with a new diagnosis of malignant melanoma located above the left upper lip. Oncologist Usman Goldberg MD Surgeon Fransico Sharp MD Pts general OBGYN in [place], [place]: Eliazar Castaneda MD The plan is for wide local excision with reconstruction, which may take multiple trips to the OR. The OR plan involves radioactive tracer for sentinal node She has not been imaged for staging. She comes to [facility] today for discussion on when to [...] with more than 50% of the total qajj-dm-hryh time of the visit in counseling / coordination of care. I shared my findings and recommendations via the shared medical record or via the mail to the referring provider. Ana Peoples MD documented in this encounter [facility] 01-18-2024 Miscellaneous Notes Called pt, verified name [...] L Crowley MA documented in this encounter [facility] 01-10-2024 Miscellaneous Notes [employer] msg was sent to patient asking for call back to this coordinator to schedule MFM consultation. documented in this encounter [facility] 01-09-2024 Miscellaneous Notes Reached out to patient. Instructions provided to see a maternal medicine specialist within the [facility] per Dr. Sharp. This nurse explained that the multidisciplinary team will need frequent communications in arranging the plan of care, and staying in one healthcare system will help facilitate planning. Patient called that she is seeing Maternal Med, in her area and was questioning does she need to see one at the [facility]? She is asking for a call.. she is very nervous documented in this encounter [facility] 01-04-2024 Instructions Valerie Bedoya RN - 01/04/2024 3:21 PM EDT PLAN: - Photos taken and uploaded to chart today via [employer] - Pathology re-read to be obtained - Surgical plan is for resection of left upper lip melanoma, reconstruction with local tissue rearrangement, and a sentinel lymph node biopsy - Surgery at [facility] or [facility]. Likely plan is to wait for surgical intervention until after 36 weeks . - Pre op clearance (PACC) prior to surgery for clearance to receive general anesthesia; must be done at a [facility] location - Nuclear medicine appointment at [facility] the morning of surgery - Post op 7-10 days with Tana Cervantes APRN.DERRICK FOLLOWER - Consult placed to Maternal Medicine (MFM) for risk assessment and guidance: call [phone] to schedule. - Recommend regular dermatology follow-up for FBSE - Q3 months for 2 years, Q6 months for 5 years and Q1 year for the rest of his/her life Our ophthalmic surgical assistant will contact you to set up all [...] office with questions/concerns. documented in this encounter [facility] 12-28-2023 Note HNO ID: [id number] Author: FRANSICO SHARP MD Service: ? Author Type: Physician Type: Progress Notes Filed: 01/06/2024 09:42 Note Text: DATE: January 03, 2024 CC: New Melanoma Patient Referring Physician: Margarita Kim MD at [facility] in [place] HPI: Vy Mckeon is a 33 year [...] 400 mg by mouth. omeprazole magnesium (ACID SPECIAL NEEDS BABYSITTER, OMEPRAZOLE, ORAL) Take by mouth as directed. [...] left upper lip with a variegated pattern, handle maker in the middle with a number of dark spots. The lesion measures 1 cm in diameter. Photos taken, see [employer] Get [employer] LABS: Pathology Report - EXTERNAL [...] taken and uploaded to chart today via [employer] - Pathology re-read to be obtained - Surgical plan is for resection of left upper lip melanoma, reconstruction with local tissue rearrangement, and a sentinel lymph node biopsy - Surgery at [facility] or . Likely plan is to wait for surgical intervention until after 36 weeks . - PACC prior to surgery - Nuclear medicine appointment at [facility] the (more content not included)... [facility] 12-28-2023 History of Present illness Narrative Images from the original note were not included. DATE: January 03, 2024 CC: New Melanoma Patient Referring Physician: Margarita Kim MD at [facility] [place] HPI: Vy Mckeon is a 33 year [...] 400 mg by mouth. omeprazole magnesium (ACID SPECIAL NEEDS BABYSITTER, OMEPRAZOLE, ORAL) Take by mouth as directed. [...] left upper lip with a variegated pattern, handle maker in the middle with a number of dark spots. The lesion measures 1 cm in diameter. Photos taken, see [facility] Get Images LABS: Pathology Report [...] taken and uploaded to chart today via [employer] - Pathology re-read to be obtained - Surgical plan is for resection of left upper lip melanoma, reconstruction with local tissue rearrangement, and a sentinel lymph node biopsy - Surgery at [facility] or . Likely plan is to wait for surgical intervention until after 36 weeks . - PACC prior to surgery - Nuclear medicine appointment at [facility] the morning of surgery - Post op 7-10 days with Tana Cervantes APRN.DERRICK FOLLOWER - Consult placed to [facility] for risk assessment and guidance: call [phone] to schedule. - Recommend regular dermatology follow-up for FBSE - Q3 months for 2 years, Q6 months for 5 years and Q1 year for the rest of his/her life - Patient follows with OBGYN Dr. Castaneda in [place], [place] Follow up after 36 weeks of and with [facility]'s recommendations. The patient is seen and examined by Dr. Sharp and the following reflects his service. Scribed by Valerie Bedoya RN STAFF NOTE: I agree with the Chief Complaint, ROS, and Past Histories independently gathered by the clinical desktop support technician and the remaining scribed note accurately describes [...] her we would coordinate this with her highway patrol officer team here at the [facility]. While I believe this to be [...] Fransico Sharp MD documented in this encounter [facility] 12-26-2023 Note HNO ID: [id number] Author: USMAN GOLDBERG MD Service: ? Author Type: Physician Type: Progress Notes Filed: 12/27/2023 12:46 Note Text: NAME: Vy Mckeon [facility] NO.: [id number] DATE OF SERVICE: December 26, 2023 (Krystal) Referring Provider: Self Consultation requested by Self Referred for an opinion regarding Ms. Vy Mckoen, and my final recommendations will be communicated [...] 400 mg by mouth. omeprazole magnesium (ACID SPECIAL NEEDS BABYSITTER, OMEPRAZOLE, ORAL) Take by mouth as directed. PNV no.95/ferrous fum/folic ac ( ORAL) Take by mouth as directed. LABORATORY VALUES: WBC (k/uL) Date Value 12/26/2023 9.72 RBC (m/uL) Date Value 12/26/2023 3.99 Hemoglob (more content not included)... [facility] 12-17-2023 History of Present illness Narrative Subjective Patient ID: Vy Mckeon is a 33 y.o. female. FRANDY Mcclellan presents to the office for follow up.She was last seen with continued depression and anxiety and had stopped taking Zoloft, hydroxyzine and trazodone because she was found to be . She is 24 weeks along in her with Placenta previa. Last [employer] visit 12/11/23 with . carrier screening result [...] normal. Behavior: Behavior normal. Assessment/Plan Follow-up with [employer] for follow-up on hematology result showing minimally [...] for sleep. Note completed with assistance of VB NET PROGRAMMER student. Freddie Delgado APRN-[facility]ERRICK FOLLOWER 12/17/23 1538 documented in this encounter [facility] 12-17-2023 Miscellaneous Notes Disclaimer: This note [...] legal medical record. documented in this encounter [facility] 12-17-2023 Progress note Formatting of t [...] a part of the legal medical record. [facility] 12-07-2023 History of Present illness Narrative Summary: FOB carrier screening results Called Vy to let her know that FOB's carrier screening result for GJB2-related disorders is negative. The is low risk to be affected with this condition. Vy understood and had no additional questions. I encouraged her to reach out if anything comes up. documented in this encounter [facility] 11-20-2023 History of Present illness Narrative Video Visit via Real-time Synchronous Audiovisual Provider Location: [facility] AT [place] [id number] [facility], [address] [place] [id number] Patient Location: Other Patient Location Color Grinder: None Video Visit Consent Statement: I discussed [...] that there are some limitations compared to fhjl-ws-qsel evaluations. We elected to proceed. REASON FOR [...] for nausea or vomiting., Disp: , Rfl: nqzwjoen95-uzam-ocsyx- 29-1-400 mg combo pack,tablet & capDR, Take [...] TESTS AND ULTRASOUND REPORTS: Referral records and [facility] chart were reviewed Pertinent Ultrasound findings are see formal ultrasound report. Orders Only on 11/13/2023 Component Date Value Ref Range Status Unlisted lab test 10/25/2023 see scanned report Final HABITS: Patient activity no restrictions, diet no restrictions PHYSICAL EXAMINATION: LMP 06/28/2023 Well-appearing in no distress. Respirations not labored, speaking comfortably in full sentences Gravid abdomen OVERALL ASSESSMENT -Vy Ornelas Jose is a pleasant 33 y.o. at 20w5d [...] patient is in complete care of her sand car worker. Patient does have ultrasound and office visit scheduled with us. Thank you for allowing me to participate in the care of Vy Mckeon. If there any questions please do not hesitate to contact us. Fidencio Rojas MD Maternal- Medicine [facility] [address] 1[address] [place] [address] [facility], the CDC, and other organizations representing maternal and public health professionals recommend that , , and lactating people and those considering receive the COVID-19 vaccination. Vaccination is the best method to reduce maternal and complications of SARS-CoV-2 infection. This document was created with [employer] technology. Though I make every effort to review the dictation as it is transcribed, on occasion the spoken word can be misinterpreted by the technology leading to inappropriate words, phrases, or sentences. This note is addressed to the requesting provider as a consultation for clinical guidance. Specific medical abbreviations are occasionally used and those are generally approved by the [place]?Board of?Obstetrics and?Gynecology?as well as?Justyna s abbreviations. The above plan of care was based solely on the diagnoses for which a consultation was requested. ?More frequent testing may be indicated based on her other medical/obstetrical conditions. The management of other or medical conditions is beyond the scope of requested consultation and will continue to be followed by the primary sand car worker or primary care provider. Note to patient: [...] of the practitioner. documented in this encounter [facility] 11-12-2023 History of Present illness Narrative Reason [...] obtained without difficulty and patient was given [facility] order to have obtained. Follow Up: Patient is to return to our office in 4 weeks for routine OB appointment Documented by Dana Farris LPN on behalf of: SHANT España documented in this encounter [facility] 11-12-2023 History of Present illness Narrative Summary: MOB carrier screening results Called and discussed carrier screening results with Vy. 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 We discussed the natural history and etiology of the condition. I recommend FOB carrier screening if he's available. She understood and had no additional questions. She will reach out to [facility] to get the necessary info needed [...] questions or concerns. documented in this encounter [facility] 10-29-2023 History of Present illness Narrative [...] completed between 11/10-11/17. documented in this encounter [facility] 10-22-2023 History of Present illness Narrative Summary: M Genetic Counseling Note Provider at different site/location than patient. I confirmed the patient is located in the [facility]. Vy Mckeon is currently at home and provider at remote site. The patient consented to be treated electronically via this form of telemedicine. This visit was not related to an office visit or procedure in the past 7 days, and in-office follow up is not recommended in the next 24 hours. Video Visit via Real-time Synchronous Audiovisual Provider Location: [facility] AT [address] [address] Patient Location: Patient's home Patient Location Color Grinder: None Video Visit Consent Statement: I discussed [...] that there are some limitations compared to bckn-sc-hvqo evaluations. We elected to proceed. Name: Vy Mckeon : 1990 Date of Visit: 10/22/2023 Email: Preferred contact method: email Partner's Name: Bogdan Age: 32 Requesting Physician: Eliazar Castaneda, DO [address] [place], [place] [address] , [place] [address] Reason for Referral: Vy Mckeon is a 33 y.o. female who presented to [facility] Tele[facility]. Vy is here at [...] Screen: YES - low risk Performing lab: [facility] ([facility] Screen) Conditions screened: Trisomy 13, Trisomy [...] the medical records and evaluation by medical supply technician of the affected individual would be recommended. [...] age I personally spent 25 minutes in rrkp-zd-msxr time with this patient. I provided genetic [...] call or email their genetic counselor at [phone] or if any additional questions or concerns should arise. TAMMY Soto Licensed, Certified Genetic Counselor documented in this encounter [facility] 05-29-2023 Evaluation note Encounter Date Diagnosis Assessment Notes May, Thrush (ICD-10 - B37.0) Continue home medications as prescribed. Use the nystatin mouthwash as prescribed, swish and swallow. Follow-up with your family physician if no improvement in 2 to 3 days [employer] Other 06-19-2023 [facility]* Encounter Date Diagnosis Assessment [...] educated on the importance of PPI optimization [employer] Other 05-10-2023 Evaluation note* Encounter Date Diagnosis [...] January, Other Contusion mater ial was printed [employer] Other 08-23-2022 NoteOPERATIVE NOTE OPERATION DATE: 05/23/2022 PROCEDURE: Suction D AND C. PREOPERATIVE DIAGNOSIS: Missed . POSTOPERATIVE DIAGNOSIS: Missed . ANESTHESIA: General. SURGEON: Eliazar Castaneda D.O. PULP GRINDER AND BLENDER: None. FINDING: Products of conception. SPECIMEN: Products [...] products of conception were removed using an 8-Setswana suction curette. Excellent hemostasis was noted. The patient tolerated the procedure well. Sponge, lap, and needle counts were correct x 2. All instruments were then removed from the patient's vagina. The patient was taken to the Recovery Room in stable condition. [facility] Includes: Assessments for all patient encounters Findings Encounter Date Depressive disorder [facility] with [facility] 03/29/2020 Generalized anxiety disorder [facility] with Emilee Short [facility] 03/29/2020 Dysthymic disorder Established Patie nt with Bobbi Colon [facility] 10/14/2019 Generalized anxiety disorder Establis hed Patient with Bobbi Colon [facility] 10/14/2019 Z68.24 - Body mass index (BM I) 24.0-24.9 adult Medical Established Patient with Candace Grossman [facility] 10/14/2019 F34.1 - Dysthymic disorder Establishe d Patient with Bobbi Colon [facility] 09/04/2019 Generalized anxiety disorder Establis hed Patient with Bobbi Colon [facility] 09/04/2019 Body mass index Medical Established Patient with Candace Grossman [facility] 09/04/2019 Diabetes Risk Test Score was 0 score 09/04/2019 Medical Established Patient with Candace Grossman [facility] 09/04/2019 Body mass index Nurse Visit with Candace Grossman [facility] 08/19/2019 Diabetes Risk Test Score was 0 score 08/19/2019 Nurse Visit with Candace Grossman [facility] 08/19/2019 Generalized anxiety disorder BH Establis hed Patient with Bobbi Colon [facility] 07/28/2019 Severe recurrent major depre 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 features BH Established Patient with Bobbi Colon [facility] 07/28/2019 AUDIT alcohol use disorders identification test was six 07/28/2019 Medical New Patient with Candace Grossman [facility] 07/28/2019 Diabetes Risk Test Score was 0 score 07/28/2019 Medical New Patient with Candace Grossman [facility] 07/28/2019 ZAN-7 score was 21 07/28/2019 Medical Ne w Patient with Candace Grossman [facility] 07/28/2019 PHQ-9: total score was 21 07/28/2019 Med ical New Patient with Candace Grossman [facility] 07/28/2019 Z68.22 - Body mass index (BM I) 22.0-22.9 adult Medical New Patient with Candace Grossman [facility] 07/28/2019 [facility] Work Phone: Evaluation noteNo assessment information available [facility] Work Phone: Evaluation note* Diagnosis Onset Date Resolution Status GERD (gastroesophageal reflux disease) acute [facility] Work Phone: Evaluation note* Diagnosis Multigravida [...] headache, not intractable [facility] Diagnosis Multigravida of advanced maternal age in second trimester Family history of autism Family history of mental disorder Family history of psychiatric condition [facility] Diagnosis 20 weeks gestation of - Primary Placenta previa antepartum in second trimester Advanced maternal age in multigravida, second trimester documented [facility] Diagnosis Placenta previa antepartum in second trimester- Primary Multigravida of advanced maternal age in second trimester [facility] Diagnosis Nausea and vomiting, unspecified vomiting type- Primary Psychophysiological insomnia Persistent disorder of initiating or maintaining sleep [facility] Diagnosis Malignant melanoma of skin (HCC)- Primary Melanoma of skin, site unspecified [facility] Diagnosis Encounter for anatomic survey Encounter for anatomic survey- Primary documented in this encounter [facility]* Diagnosis Encounter for anatomic survey documented in this encounter [facility]* Diagnosis Malignant melanoma of skin (HCC) Melanoma of skin, site unspecified Skin cancer Unspecified malignant neoplasm of skin, site unspecified Placenta previa antepartum in second trimester * Assessment & Plan Note - Ana Peoples MD - 01/21/2024 1:34 PM EDT Associated Problem(s): Skin cancer 01/22/2024 [facility] Pt is a 33 year old 29w4d with a new diagnosis of malignant melanoma located above the left upper lip. Oncologist Usman Goldberg MD Surgeon Fransico Sharp MD Pts general OBGYN in [place], [place]: Eliazar Castaneda MD The plan is for wide local excision with reconstruction, which may take multiple trips to the OR. The OR plan involves radioactive tracer for sentinal node She has not been imaged for staging. She comes to [facility] today for discussion on when to [...] pt can deliver closer to home at [facility] if she goesat term and the CT does not show any spread.. We would need to find a way to get the placenta to [facility] for examination. I have left a message with Dr. Castaneda's office to call me back so that we can confirm ability to get placenta to [facility] for pathology should she deliver at [place]. Ana Peoples MD documented in this encounter [facility]* Diagnosis Malignant melanoma of skin (HCC)- Primary Melanoma of skin, site unspecified Malignant melanoma of skin (HCC) Melanoma of skin, site unspecified documented in this encounter [facility] general Narrative - Reported* Type Description Date Medical History anxiety Medical History depression Medical History ADHD Surgical History D&C [employer] Other History general Narrative - Reported* Type Description Date Medical History anxiety Medical History depression Medical History ADHD Surgical History D&C 2021 [employer] Other History of Present illness Narrative History of Present Illness not supported for this document type No History of Present Illness [facility] Work Phone: Hospital Discharge instructions Additional [...] if you have any problems. -Office number [phone] Work Phone: Instructions Instructions not supported for this document type No Instructions [facility] Work Phone: InstructionsNot on filedocumented in this encounter [facility] SystemInstructionsNot on filedocumented in this encounter [facility] SystemInstructionsNot on filedocumented in this encounter [facility] SystemPatient problem outcome Narrative Includes: Evaluations & Outcomes for active Goals No Outcomes [facility] Work Phone: reason for referral (narrative)No Reason for Referral [facility] Work Phone: reason for referral (narrative)* Diagnostic Procedure Only (Routine) - Closed Specialty Diagnoses / Procedures Referred By Contac t Referred To Contact [facility] Diagnoses Encounter for anatomic survey Procedures OBSTETRIC ULTRASOUND WHI US PREG UTERUS AFTER 1ST [place] [address] [place] [address] [facility] [address] [place] [address] Referral ID Status Reason Start Date Expiration Date V isits Requested Visits Authorized [id number] Closed Auto-Generate d Referral 01/21/2024 01/20/2025 1 1 [facility] for visit NarrativeUNCONTROLLED GERD//REFERRAL FROM VITO [facility]ures[facility] [employer] Other Reason for visit Narrative* Consultation (Routine) - Pending Review Specialty Diagnoses / Procedures Referred By Contac t Referred To Contact [facility]aternal [facility] Medicine Diagnoses Multigravida of advanced maternal age in second trimester Eliazar Castaneda R, DO [address] [place] [address] [facility] [address] [place] [address] Referral ID Status Reason Start Date Expiration Date Visits Requested Visits Authorized [id number] Pending Review Specialty Services Required 10/10/2023 10/09/2024 1 1 [facility]* Diagnostic Procedure Only (Routine) - Closed Specialty Diagnoses / Procedures Referred By Contac t Referred To Contact [facility] Diagnoses Encounter for anatomic survey Procedures OBSTETRIC ULTRASOUND WHI US PREG UTERUS AFTER 1ST [place] [address] [place] [address] [facility] [address] [place] [address] Referral ID Status Reason Start Date Expiration Date V isits Requested Visits Authorized [id number] Closed Auto-Generate d Referral 01/21/2024 01/20/2025 1 1 [facility] Narrative - Reported Review of Systems not supported for this document type No Review of Systems [facility] Work Phone: Summary Purpose Family History No Family History Records Found Description Last Updated Paternal history of cardiovascular disor thuy 07/28/2019 Relationship Condition Age at Onset Recorded Date/T pia Not Specified Anxiety Unknown Chronic obstructive pulmonary disease Unk nown Advance Directives No Advanced Directives Records FoundDocuments on File Type Date Recorded 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 Advance Directives and Living Will Power of Patternator Advance Directive Response Recorded Date/ Time Advance Directives No February 07 3:12pm Reason for Referral Specialty Diagnoses / Procedures Referred By Contac t Referred To Contact Maternal and Medicine Diagnoses Placenta previa antepartum in second trimester Multigravida of advanced maternal age in second trimester Procedures [facility] with or without consult Fidencio Rojas MD [address] [facility] 1[address] [place] [address] [facility] [address] [place] [address] Referral ID Status Reason Start Date Expiration Date V isits Requested Visits Authorized [id number] Pending Review 11/20/2023 11/19/2024 1 1 Specialty Diagnoses / Procedures Referred By Contac t Referred To Contact Diagnoses Malignant melanoma of skin (HCC) Procedures REFER TO PACC - PRE ANESTHESIA CONSULTATION CLINIC OFFICE/OUTPATIENT [facility] 60 MINUTES Fransico Sharp MD [address] [place] [address] Referral ID Status Reason Start Date Expiration Date Visits Requested Visits Authorized [id number] Authorized PCP Requested Referral 01/04/2024 01/03/2025 1 1 Specialty Diagnoses / Procedures Referred By Contac t Referred To Contact Diagnoses Malignant melanoma of skin (HCC) Procedures CONSULT TO MATERNAL MEDI OFFICE/OUTPATIENT [facility] MDM 60 MINUTES Fransico Sharp MD [address] [place] [id number] Referral ID Status Reason Start Date Expiration Date Visits Requested Visits Authorized [id number] Authorized PCP Requested Referral Auto-Generate d Referral 01/04/2024 01/03/2025 1 1 Specialty Diagnoses / Procedures Referred By Contac t Referred To Contact CT IMAG[facility] Diagnoses Malignant melanoma of skin (HCC) Procedures CT CHEST W IVCON DIAGNOSTIC COMPUTED TOMOGRAPHY THORAX W/CONTRAST Usman Goldberg MD [address] [place] [address] [place] [address] Referral ID Status Reason Start Date Expiration Date Visits Requested Visits Authorized [id number] Authorized Auto-Generat ed Referral 02/20/2024 02/21/2025 1 1 Specialty Diagnoses / Procedures Referred By Contac t Referred To Contact CT IMAGING Diagnoses Malignant melanoma of skin (HCC) Procedures CT NECK SOFT TISSUE W IVCON CT SOFT TISSUE NECK W/CONTRAST MATERIAL Usman Goldberg MD [address] [place] [address] [place] [address] Referral ID Status Reason Start Date Expiration Date Visits Requested Visits Authorized [id number] Authorized Auto-Generat ed Referral 02/20/2024 02/21/2025 1 1 Assessments Findings Encounter Date Generalized anxiety disorder Establis hed Patient with Bobbi Colon [facility] 07/28/2019 Severe recurrent major depre 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 features Established Patient with Bobbi Colon [facility] 07/28/2019 AUDIT alcohol use disorders identification test was six 07/28/2019 Medical New Patient with Candace Grossman [facility] 07/28/2019 Diabetes Risk Test Score was 0 score 07/28/2019 Medical New Patient with Candace Grossman [facility] 07/28/2019 ZAN-7 score was 21 07/28/2019 Medical Ne w Patient with Candace Grossman [facility] 07/28/2019 PHQ-9: total score was 21 07/28/2019 Med ical New Patient with Candace Grossman [facility] 07/28/2019 Z68.22 - Body mass index (BM I) 22.0-22.9 adult Medical New Patient with Candace Grossman [facility] 07/28/2019 Findings Encounter Date F34.1 - Dysthymic disorder BH Establishe d Patient with Bobbileif Colon [facility] 09/04/2019 Generalized anxiety disorder BH Establis hed Patient with Bobbileif Colon [facility] 09/04/2019 Body mass index Medical Established Patient with Candace Grossman [facility] 09/04/2019 Diabetes Risk Test Score was 0 score 09/04/2019 Medical Established Patient with Candace Grossman [facility] 09/04/2019 Body mass index Nurse Visit with Candace Grossman P 08/19/2019 Diabetes Risk Test Score was 0 score 08/19/2019 Nurse Visit with Candace Dianelys [facility] 08/19/2019 Generalized anxiety disorder BH Establis hed Patient with Bobbileif Colon [facility] 07/28/2019 Severe recurrent major depre 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 features Established Patient with Bobbi Colon [facility] 07/28/2019 AUDIT alcohol use disorders identification test was six 07/28/2019 Medical New Patient with Candace Grossman [facility] 07/28/2019 Diabetes Risk Test Score was 0 score 07/28/2019 Medical New Patient with Candace Grossman [facility] 07/28/2019 ZAN-7 score was 21 07/28/2019 Medical Ne w Patient with Candace Grossman [facility] 07/28/2019 PHQ-9: total score was 21 07/28/2019 Med ical New Patient with Candace Grossman [facility] 07/28/2019 Z68.22 - Body mass index (BM I) 22.0-22.9 adult Medical New Patient with Candace Grossman [facility] 07/28/2019 Findings Encounter Date Dysthymic disorder BH Established Patie nt with Bobbi Colon [facility] 10/14/2019 Generalized anxiety disorder BH Establis hed Patient with Bobbileif Colon [facility] 10/14/2019 Z68.24 - Body mass index (BM I) 24.0-24.9 adult Medical Established Patient with Candace Grossman [facility] 10/14/2019 F34.1 - Dysthymic disorder BH Establishe d Patient with Bobbileif Colon [facility] 09/04/2019 Generalized anxiety disorder BH Establis hed Patient with Bobbileif Colon [facility] 09/04/2019 Body mass index Medical Established Patient with Candace Houstonen [facility] 09/04/2019 Diabetes Risk Test Score was 0 score 09/04/2019 Medical Established Patient with Candace Grossman [facility] 09/04/2019 Body mass index Nurse Visit with Candace Grossman P 08/19/2019 Diabetes Risk Test Score was 0 score 08/19/2019 Nurse Visit with Candace Dianelys [facility] 08/19/2019 Generalized anxiety disorder BH Establis hed Patient with Bobbileif Colon [facility] 07/28/2019 Severe recurrent major depre 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 features BH Established Patient with Bobbi Colon [facility] 07/28/2019 AUDIT alcohol use disorders identification test was six 07/28/2019 Medical New Patient with Candace Grossman [facility] 07/28/2019 Diabetes Risk Test Score was 0 score 07/28/2019 Medical New Patient with Candace Grossman [facility] 07/28/2019 ZAN-7 score was 21 07/28/2019 Medical Ne w Patient with Candace Grossman [facility] 07/28/2019 PHQ-9: total score was 21 07/28/2019 Med ical New Patient with Candace Dianelys [facility] 07/28/2019 Z68.22 - Body mass index (BM I) 22.0-22.9 adult Medical New Patient with Candace Grossman [facility] 07/28/2019 Findings Encounter Date Visit for: contraceptive management Women's Heal th with Linnea Escobar [facility] 04/08/2020 Z68.24 - Body mass index (BM I) 24.0-24.9, adult Women's Health with Linnea Escobar [facility] 04/08/2020 Depressive disorder Telebehavioral He alth with Emilee Short [facility] 03/29/2020 Generalized anxiety disorder [facility] Emilee Short [facility] 03/29/2020 Dysthymic disorder Established Patie nt with Bobbi Colon [facility] 10/14/2019 Generalized anxiety disorder BH Establis hed Patient with Bobbi Colon [facility] 10/14/2019 Z68.24 - Body mass index (BM I) 24.0-24.9 adult Medical Established Patient with Candace Dianelys [facility] 10/14/2019 F34.1 - Dysthymic disorder BH Establishe d Patient with Bobbi Colon [facility] 09/04/2019 Generalized anxiety disorder BH Establis hed Patient with Bobbi Colon [facility] 09/04/2019 Body mass index Medical Established Patient with Candace Dianelys [facility] 09/04/2019 Diabetes Risk Test Score was 0 score 09/04/2019 Medical Established Patient with Candace Grossman [facility] 09/04/2019 Body mass index Nurse Visit with Candace Dianelys P 08/19/2019 Diabetes Risk Test Score was 0 score 08/19/2019 Nurse Visit with Candace Grossman [facility] 08/19/2019 Generalized anxiety disorder BH Establis hed Patient with Bobbi Colon [facility] 07/28/2019 Severe recurrent major depre 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 features BH Established Patient with Bobbi Colon [facility] 07/28/2019 AUDIT alcohol use disorders identification test was six 07/28/2019 Medical New Patient with Candace Houstonen [facility] 07/28/2019 Diabetes Risk Test Score was 0 score 07/28/2019 Medical New Patient with Candace Dianelys [facility] 07/28/2019 ZAN-7 score was 21 07/28/2019 Medical Ne w Patient with Candace Dianelys [facility] 07/28/2019 PHQ-9: total score was 21 07/28/2019 Med ical New Patient with Candace Dianelys [facility] 07/28/2019 Z68.22 - Body mass index (BM I) 22.0-22.9 adult Medical New Patient with Candace Grossman [facility] 07/28/2019 Findings Encounter Date Body mass index Nurse Visit with Candace Dianelys P 08/19/2019 Diabetes Risk Test Score was 0 score 08/19/2019 Nurse Visit with Candace Dianelys [facility] 08/19/2019 Generalized anxiety disorder BH Establis hed Patient with Bobbi Colon [facility] 07/28/2019 Severe recurrent major depre 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 features Established Patient with Bobbi Colon [facility] 07/28/2019 AUDIT alcohol use disorders identification test was six 07/28/2019 Medical New Patient with Candace Dianelys [facility] 07/28/2019 Diabetes Risk Test Score was 0 score 07/28/2019 Medical New Patient with Candace Grossman [facility] 07/28/2019 ZAN-7 score was 21 07/28/2019 Medical Ne w Patient with Candace Grossman [facility] 07/28/2019 PHQ-9: total score was 21 07/28/2019 Med ical New Patient with Candace Dianelys [facility] 07/28/2019 Z68.22 - Body mass index (BM I) 22.0-22.9 adult Medical New Patient with Candace Grossman [facility] 07/28/2019 Findings Encounter Date Overweight Women's Health with Candace Dianelys [facility] 05/03/2020 Z68.24 - Body mass index (BM I) 24.0-24.9, adult Women's Health with Candace Dianelys [facility] 05/03/2020 Visit for: contraceptive management Women's Heal th with Linnea Escobar [facility] 04/08/2020 Z68.24 - Body mass index (BM I) 24.0-24.9, adult Women's Health with Linnea Escobar [facility] 04/08/2020 Depressive disorder Telebehavioral He alth with Emilee Short [facility] 03/29/2020 Generalized anxiety disorder Telebeha vioral Health with Emilee Short [facility] 03/29/2020 Dysthymic disorder Established Patie nt with Bobbi Colon [facility] 10/14/2019 Generalized anxiety disorder Establis hed Patient with Bobbi Colon [facility] 10/14/2019 Z68.24 - Body mass index (BM I) 24.0-24.9 adult Medical Established Patient with Candacehalley Grossman [facility] 10/14/2019 F34.1 - Dysthymic disorder Establishe d Patient with Bobbi Colon [facility] 09/04/2019 Generalized anxiety disorder Establis hed Patient with Bobbi Colon [facility] 09/04/2019 Body mass index Medical Established Patient with Candace Dianelys [facility] 09/04/2019 Diabetes Risk Test Score was 0 score 09/04/2019 Medical Established Patient with Candace Dianelys [facility] 09/04/2019 Body mass index Nurse Visit with Candace Grossman P 08/19/2019 Diabetes Risk Test Score was 0 score 08/19/2019 Nurse Visit with Candace Grossman [facility] 08/19/2019 Generalized anxiety disorder Establis hed Patient with Bobbi Colon [facility] 07/28/2019 Severe recurrent major depre 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 features Established Patient with Bobbi Colon [facility] 07/28/2019 AUDIT alcohol use disorders identification test was six 07/28/2019 Medical New Patient with Candace Dianelys [facility] 07/28/2019 Diabetes Risk Test Score was 0 score 07/28/2019 Medical New Patient with Candace Dianelys [facility] 07/28/2019 ZAN-7 score was 21 07/28/2019 Medical Ne w Patient with Candace Dianelys [facility] 07/28/2019 PHQ-9: total score was 21 07/28/2019 Med ical New Patient with Candace Dianelys [facility] 07/28/2019 Z68.22 - Body mass index (BM I) 22.0-22.9 adult Medical New Patient with Candace Dianelys [facility] 07/28/2019 Instructions Instructions not supported for this [...] section and content) DATE CREATED AUTHOR 03/26/2018 [facility] DATE CREATED AUTHOR AUTHOR'S ORGANIZ ATION 05/07/2020 [facility] DATE CREATED AUTHOR AUTHOR'S ORGANIZ ATION 02/10/2023 [facility] DATE CREATED AUTHOR AUTHOR'S ORGANIZ ATION 03/28/2023 [facility] DATE CREATED AUTHOR AUTHOR'S ORGANIZ ATION 12/18/2023 [facility] Ambulatory [facility] DATE CREATED AUTHOR AUTHOR'S ORGANIZ ATION 01/14/2024 [facility] DATE CREATED AUTHOR AUTHOR'S ORGANIZ ATION 01/27/2024 [facility] DATE CREATED AUTHOR AUTHOR'S ORGANIZ ATION 02/14/2024 [facility] DATE CREATED AUTHOR AUTHOR'S ORGANIZ ATION 02/28/2024 [facility] dical Specialists [facility] DATE CREATED AUTHOR AUTHOR'S ORGANIZ ATION 02/29/2024 [facility] Evaluations & Outcomes (unre cognized section and [...] Consult Specialty Diagnoses / Procedures Referred By Contac t Referred To Contact Diagnoses Malignant melanoma of skin (HCC) Procedures CONSULT TO MATERNAL MEDI OFFICE/OUTPATIENT [facility] 60 MINUTES Fransico Sharp MD [address] [place] [address] Referral ID Status Reason Start Date Expiration Date V isits Requested Visits Authorized [id number] Closed PCP Requested Referral Auto-Generated Referral 01/04/2024 [...] Active NON STAFF Primary Care Provider Active Eligibility Examiner Relationship Specialty Start Date End Date Freddie Delgado APRN-CNP PCP - General Nurse Practitioner 07/30/23 Eligibility Examiner Relationship Specialty Start Date End Date Freddie Delgado APRN-CNP PCP - General Nurse Practitioner 07/30/23 Eligibility Examiner Relationship Specialty Start Date End Date Freddie Delgado APRN-CNP PCP - General Nurse Practitioner 07/30/23 Eligibility Examiner Relationship Specialty Start Date End Date Freddie Delgado APRN-CNP PCP - General Nurse Practitioner 07/30/23 Eligibility Examiner Relationship Specialty Start Date End Date Freddie Delgado [facility] PCP - General Nurse Practitioner 07/30/23 Eligibility Examiner Relationship Specialty Start Date End Date Freddie Delgado APR[facility] PCP - General Nurse Practitioner 07/30/23 Eligibility Examiner Relationship Specialty Start Date End Date [facility] PCP - General Nurse Practitioner 07/30/23 Eligibility Examiner Relationship Specialty Start Date End Date Freddie Delgado [address] [place] [address] PCP - General Family Medicine 12/19/23 Eligibility Examiner Relationship Specialty Start Date End Date Freddie Delgado [address] [place] [address] PCP - General Family Medicine 12/19/23 Eligibility Examiner Relationship Specialty Start Date End Date Freddie Delgado [address] [place] [address] PCP - General Family Medicine 12/19/23 Eligibility Examiner Relationship Specialty Start Date End Date Freddie Delgado [address] [place] [address] PCP - General Family Medicine 12/19/23 Eligibility Examiner Relationship Specialty Start Date End Date Freddie Delgado [address] [place] [address] PCP - General Family Medicine 12/19/23 Eligibility Examiner Relationship Specialty Start Date End Date Freddie Delgado [address] [place] [address] PCP - General Family Medicine 12/19/23 Eligibility Examiner Relationship Specialty Start Date End Date Freddie Delgado [address] [place] [address] PCP - General Family Medicine 12/19/23 Eligibility Examiner Relationship Specialty Start Date End Date Freddie Delgado [address] [place] [address] PCP - General Family Medicine 12/19/23 Eligibility Examiner Relationship Specialty Start Date End Date Freddie Delgado [address] [place] [address] PCP - General Family Medicine 12/19/23 Eligibility Examiner Relationship Specialty Start Date End Date Freddie Delgado [address] [place] [address] PCP - General Family Medicine 12/19/23 Eligibility Examiner Relationship Specialty Start Date End Date Freddie Delgado [address] [place] [address] PCP - General Family Medicine 12/19/23 Eligibility Examiner Relationship Specialty Start Date End Date Freddie Delgado [address] [place] [address] PCP - General Family Medicine 12/19/23 Eligibility Examiner Relationship Specialty Start Date End Date Delgado Freddie Jones CNP [address] [place] [address] PCP - General Family Medicine 12/19/23 Goals [...] or prosecute any alcohol or drug abuse patient.[facility] [place] the event this information is protected by the Federal Confidentiality of Alcohol and Drug Abuse Patient Records regulations: The Federal rules restrict any use of the information to criminally investigate or prosecute any alcohol or drug abuse patient.[facility] [place] the event this information is protected by the Federal Confidentiality of Alcohol and Drug Abuse Patient Records regulations: The Federal rules restrict any use of the information to criminally investigate or prosecute any alcohol or drug abuse patient.[facility] [place] the event this information is protected by the Federal Confidentiality of Alcohol and Drug Abuse Patient Records regulations: The Federal rules restrict any use of the information to criminally investigate or prosecute any alcohol or drug abuse patient.[facility] [place] the event this information is protected by the Federal Confidentiality of Alcohol and Drug Abuse Patient Records regulations: The Federal rules restrict any use of the information to criminally investigate or prosecute any alcohol or drug abuse patient.[facility] [place] the event this information is protected by the Federal Confidentiality of Alcohol and Drug Abuse Patient Records regulations: The Federal rules restrict any use of the information to criminally investigate or prosecute any alcohol or drug abuse patient.[facility] [place] the event this information is protected by the Federal Confidentiality of Alcohol and Drug Abuse Patient Records regulations: The Federal rules restrict any use of the information to criminally investigate or prosecute any alcohol or drug abuse patient.[facility] [place] the event this information is protected by the Federal Confidentiality of Alcohol and Drug Abuse Patient Records regulations: The Federal rules restrict any use of the information to criminally investigate or prosecute any alcohol or drug abuse patient.[facility] [place] the event this information is protected by the Federal Confidentiality of Alcohol and Drug Abuse Patient Records regulations: The Federal rules restrict any use of the information to criminally investigate or prosecute any alcohol or drug abuse patient.[facility] [place] the event this information is protected by the Federal Confidentiality of Alcohol and Drug Abuse Patient Records regulations: The Federal rules restrict any use of the information to criminally investigate or prosecute any alcohol or drug abuse patient.[facility] [place] the event this information is protected by the Federal Confidentiality of Alcohol and Drug Abuse Patient Records regulations: The Federal rules restrict any use of the information to criminally investigate or prosecute any alcohol or drug abuse patient.[facility] [place] the event this information is protected by the Federal Confidentiality of Alcohol and Drug Abuse Patient Records regulations: The Federal rules restrict any use of the information to criminally investigate or prosecute any alcohol or drug abuse patient.[facility] [place] the event this information is protected by the Federal Confidentiality of Alcohol and Drug Abuse Patient Records regulations: The Federal rules restrict any use of the information to criminally investigate or prosecute any alcohol or drug abuse patient.[facility] FOR RECORDS PERTAINING TO PATIENTS WHO ARE [...] ON THE PRIMARY CLINICAL RECORDS. [facility] [employer] [facility]. provides no warranty or guarantee of the accuracy or completeness of information in this document.
--- NOTE | 2024-03-03 14:52 | US_ITS ---
[address] [address] Patient Name: CRISTIAN DONALDSON MRN: [id number] date: 1990 Sex: F Assigned Patient Location: US Current Patient Location: Accession/Order Number: [id number] Exam Date: 03/03/2024 15:05 Report Date: 03/04/2024 08:32 At the request of: DAVIN GREEN Procedure: US OB BPP w non-stress EXAMINATION: US OB BPP w non-stress HISTORY: EXCESSIVE GROWTH AFFECTING O36.62X0 COMPARISON: Ultrasound OB biophysical 02/26/2024 TECHNIQUE: Ultrasound biophysical profile was performed in the radiology department. BREATHING MOVEMENTS: 2.0 GROSS BODY MOVEMENTS: 2.0 TONE: 2.0 QUALITATIVE AMNIOTIC FLUID VOLUME: 2.0 PRESENTATION: CEPHALIC HEART RATE: 165.6 bpm bpm. AMNIOTIC FLUID VOLUME: 18.0 cm GESTATIONAL AGE: 35 weeks 4 days CONCLUSION: Total biophysical profile score 8.0. Electronically authenticated by: BOBBI SIMONS Date: 03/04/2024 08:32
--- NOTE | 2024-03-03 14:54 | US_ITS ---
[address] [address] Patient Name: CRISTIAN DONALDSON MRN: [id number] date: 1990 Sex: F Assigned Patient Location: US Current Patient Location: US Accession/Order Number: [id number] Exam Date: 03/03/2024 15:05 Report Date: 03/04/2024 08:34 At the request of: DAVIN GREEN Procedure: US OB growth EXAMINATION: US OB growth HISTORY: EXCESSIVE GROWTH AFFECTING O36.62X0 COMPARISON: Ultrasound OB transvaginal 02/11/2024 FINDINGS: Heart Rate: 165.6 bpm Number: 1.0 Position: CEPHALIC Amniotic Fluid Volume: 18.0 cm Maximum Vertical Pocket: 6.6 cm BIOMETRY: BPD: 8.7 cm cm; 35 weeks 2 days; 47% HC: 34.2 cmcm; 39 weeks 4 days ; 96% AC: 33.9 cm cm; 37 weeks 5 days; greater than 97% FL: 6.8 cm cm; 34 weeks 6 days; 26 % EFW: 3080.3 grams; 85% FL/AC: 20.0 FL/BPD: 77.7 HC/AC: 1.0 GESTATIONAL AGE: Age by EDC: 35 weeks 4 days CLUADETTE by EDC: 04/03/2024 Age by US: 36 weeks 6 days CLAUDETTE by US: 03/25/2024 US/US OB growth IMPRESSION: 1. Single live intrauterine with growth detailed above. 2. Abdominal circumference is greater than 97th percentile. Head circumference is 96th percentile. Electronically authenticated by: BOBBI SIMONS Date: 03/04/2024 08:34
[2024-03-03 15:48] VITALS: BP 129/75; PULSE 92
--- NOTE | 2024-03-03 16:21 | PC.NURSE ---
growth: 3080gms, head 90th percentile, and abdomen 97th percentile.
== END 2024-03-03 16:20 | disposition home or self-care (01) ==
LOC: US 07:16 → FBC 14:54
PROVIDERS: Visit Provider Obstetrics & Gynecology
DX: O36.63X0 Maternal care for excessive fetal growth, third trimester, not applicable or unspecified (principal); Z3A.36 36 weeks gestation of pregnancy
CPT/HCPCS: 76816; 76818

== ENCOUNTER 2024-03-05 19:25 | Outpatient (REF) | payer MEDICAID, SELFPAY | END 2024-03-05 19:26 | disposition home or self-care (01) | LOC: LAB 19:25 | PROVIDERS: Visit Provider Obstetrics & Gynecology | DX: Z34.93 Encounter for supervision of normal pregnancy, unspecified, third trimester (principal) | CPT/HCPCS: 87081 ==

== ENCOUNTER 2024-03-06 07:07 | Outpatient (OUT) | payer MEDICAID, SELFPAY ==
--- OUTSIDE RECORDS SUMMARY | 2024-03-06 07:10 | XMS_ITS | CCD ---
Author Organization [facility] Care Team Providers Care Retail Account Manager Name Role Phone Gehlot, Upender Unavailable Unavailable Gehlot, Upender Unavailable Unavailable EMPERATRIZ CERNA Unavailable Unavailable Sally Morejon Primary Care Provider Unavailable Primary Care Provider UnavailCANDACE Dubon Referring Unavailable Sally Morejon Primary Care Provider Sally Morejon CNP Primary Care Provider Shayla Valle Unavailable JUMANA Valle Attending Provider [phone] AICHHOLZ, DINING ROOM SERVER VITO Admitting Unavailable AICHHOLZ, DINING ROOM SERVER VITO Attending Unavailable AICHHOLZ, DINING ROOM SERVER VITO Primary Care Unavailable AICHHOLZ, DINING ROOM SERVER VITO Consulting Unavailable NORMA ., DR JIN Admitting Unavailable NORMA ., DR JIN Attending Unavailable AICHHOLZ, DINING ROOM SERVER VITO Primary Care Unavailable NORMA ., DR JNI Consulting Unavailable RONAK, DR BOBBI Bianchi Consulting Unavailable NORMA ., DR JIN Admitting Unavailable NORMA ., DR JIN Attending Unavailable AICHHOLZ, DINING ROOM SERVER VITO Primary Care Unavailable NORMA ., DR JIN Consulting Unavailable ZIEBDEANNE, DR BOBBI Bianchi Consulting Unavailable NORMA ., DR JIN Admitting Unavailable NORMA ., DR JIN Attending Unavailable AICHHOLZ, DINING ROOM SERVER VITO Primary Care Unavailable NORMA ., DR JIN Consulting Unavailable AICHHOLZ, DINING ROOM SERVER VITO Admitting Unavailable AICHHOLZ, DINING ROOM SERVER VITO Attending Unavailable AICHHOLZ, DINING ROOM SERVER VITO Primary Care Unavailable NORMA ., DR JIN Admitting Unavailable NORMA ., DR JIN Attending Unavailable AICHHOLZ, DINING ROOM SERVER VITO Primary Care Unavailable NORMA ., DR JIN Consulting Unavailable NORMA ., DR JIN Admitting Unavailable NORMA ., DR JIN Attending Unavailable AICHHOLZ, DINING ROOM SERVER VITO Primary Care Unavailable NORMA ., DR JIN Consulting Unavailable AGUBOSIMWADE Consulting Unavailable SOFI XIAO Consulting Unavailable NORMA ., DR JIN Admitting Unavailable NORMA ., DR JIN Attending Unavailable AICHHOLZ, DINING ROOM SERVER VITO Primary Care Unavailable NORMA ., DR JIN Consulting Unavailable AICHHOLZ, DINING ROOM SERVER VITO Admitting Unavailable AICHHOLZ, DINING ROOM SERVER VITO Attending Unavailable AICHHOLZ, DINING ROOM SERVER VITO Primary Care Unavailable WEST, DR JO-ANN Nicolas Consulting Unavailable AICHHOLZ, DINING ROOM SERVER VITO Consulting Unavailable Yoel Jarrett Unavailable MD Karan Romero Attending Provider NON STAFF Primary Care Provider Unavailabl e NON STAFF Primary Care Unavailable Karan Romero Attending Unavailabl Karan Osuna Admitting Unavailabl e Shayla Valle Attending Unavailable Shayla Valle Admitting Unavailable Delgado ELECTRICIAN MAINTENANCE-DINING ROOM SERVER, Freddie Primary Care Provider Unavailable Primary Care Provider Unavailabl e DELGADO, FREDDIE Attending Unavailable DELGADO, FREDDIE Referring Unavailable DELGADO, FREDDIE Primary Care Unavailable ROJAS, FIDENCIO Attending Unavailable DELGADO, FREDDIE Referring Unavailable DELGADO, FREDDIE Primary Care Unavailable Delgado, Freddie Primary Care Provider GURJIT ROBIN Attending Unavailable DELGADO, FREDDIE Referring Unavailable DELGADO, FREDDIE Primary Care Unavailable Delgado, Freddie Primary Care Provider [phone] ROJAS, FIDENCIO Attending Unavailable NORMA, ELIAZAR R Referring Unavailable DELGADO, FREDDIE Primary Care Unavailable ADILENE CESPEDES Attending Unavailable NORMA, ELIAZAR R Referring Unavailable DELGADO, FREDDIE Primary Care Unavailable NORMA, ELIAZAR R Referring Unavailable DELGADO, FREDDIE Primary Care Unavailable CANDACE MORAN Admitting Unavailable DEANCANDACE Attending Unavailable DELGADO, FREDDIE Primary Care Unavailable GURJIT ROBIN Referring Unavailable DELGADO, FREDDIE Primary Care Unavailable ROJAS, FIDENCIO Referring Unavailable DELGADO, FREDDIE Primary Care Unavailable Delgado DINING ROOM SERVER, Freddie Adrian Primary Care Provid er ELIAZAR CASTANEDA Attending Unavailable BRONWYN, DIONNE Attending Unavailable NORMA, ELIAZAR Attending Unavailable NORMA, ELIAZAR Attending Unavailable BRONWYN, DIONNE Attending Unavailable NORMA, ELIAZAR Attending Unavailable NORMA, ELIAZAR Attending Unavailable DELGADO, FREDDIE ADRIAN Primary Care Unavail able ANA PEOPLES Attending Unavailable DELGADO, FREDDIE ADRIAN Primary Care Unavail able ABHYANKAR, USMAN Referring Unavailable DELGADO, FREDDIE ADRIAN Primary Care Unavail able ABHYANKAR, USMAN Referring Unavailable DELGADO, FREDDIE ADRIAN Primary Care Unavail able ABHYANKAR, USMAN Attending Unavailable DELGADO, FREDDIE ADRIAN Primary Care Unavail able FRANSICO SHARP Attending Unavailable DELGADO, FREDDIE ADRIAN Primary Care Unavail able TUCOURTNEY KULKARNIONY Referring Unavailable ANA PEOPLES Attending Unavailable Allergies Allergy Classification Reported Allergen(s) Allergy Type Date of Onset Reaction(s) Facility Penicillins (antibiotic) (1 source) Penicillins Drug Allergy 2 Unknown [facility] (13 sources) Penicillins (Antibiotic) Allergy to substance 9 [facility] Work Phone: (8 sources) busPIRone Drug Allergy 0 [facility] Work Phone: (6 sources) Penicillin G Drug Allergy 3 [facility] Work Phone: (1 source) Penicillin Drug Allergy [facility] (6 sources) Penicillins; Translations: [PENICILLINS] Drug allergy (disorder) [address] [facility] Repository (20 sources) Penicillins Propensity to adverse reactions to drug 2 Other (See Comments), Unknown [facility] (3 sources) Penicillins Drug Allergy 2 Unknown [facility] Healthcare Medications Current Medications Medication Drug Class(es) Dates Sig (Normalized) Sig (Original) [id number] 200 actuat albuterol 0.09 mg/actuat metered dose [...] 02-07-2023 Crutches Underarm Crutches January, Active diphenhydrAMINE (15 sources) Histamine-1 Receptor Antagonist Start: 12-10-2023 diphenhydramine [...] CNP magnesium oxide 400 mg oral tablet (20 sources) Start: 11-12-2023 End: 11-11-2024 magnesium oxide (MAG-OX) 400 mg (241.3 mg magnesium) tablet Take 400 mg by mouth. 0 11/12/2023 11/11/2024 Active Comment on above: Take 400 mg by mouth . nystatin [id number] unt/ml oral suspension (1 source) Polyene Antifungal Start: 05-29-2023 take 5 mL by mouth three times daily Nystatin [id number] UNIT/ML 5 ml Mouth/Throat 3 times a [...] 16, 2023 12:00am omeprazole magne sium (ACID BOUFFANT CURTAIN MACHINE TENDER, OMEPRAZOLE, ORAL) Take by mouth as directed. [...] Active PNV no.95/ferrous fum/folic ac ( ORAL) (16 sources) PNV no.95/ferrou s fum/folic ac ( ORAL) Take by mouth as directed. 0 Active Comment on above: Take by mouth as dir ected. [id number]-lcbj-rxdur- omega3 29-1-400 mg combo pack,tablet & cap,DR (9 sources) -anfe- folic -omega3 29-1-400 mg combo pack,tablet & [...] MG Oral Tablet 03/29/2020 Provider: Candace Grossman DINING ROOM SERVER Start: 03-29-2020 traZODone HCl 50 MG Oral [...] mg/ml oral solution (4 sources) Phenothiazine, Uncompetitive O-fox[place]-H-aspartat e Receptor Antagonist, Sigma-1 Agonist Start: 01-08-2020 [...] type] Onset: 02-13-2023 02-13-2023 Chronic Esophageal disorders (18 sources) Gastroesophageal reflux disease; Translations: [Gastro-esophageal reflux disease without esophagitis] Onset: 03-19-2023 Chronic Headache; including migraine (13 sources) Chronic cluster headache; Translations: [Chronic cluster [...] 01-14-2024 Episodic 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Y [facility] ([id number]) 1990 F Date Time Provider Department 02/29/24 FRANSICO SHARP During your visit today, we recorded the following information about you: Ayala Nunez 02/29/2024 3:26 PM Signed Pt calling in to cancel surgery on 03/14 and pre op appointment. Can you call her back? Thank you Surjit Griggs, BRITNEY 03/03/2024 1:47 PM Signed Spoke to patient about cancelling surgery scheduled for 03/14. Patient indicated that her imaging was negative and she does not want to pursue surgery until post . Induction scheduled for 03/24. Dr. Sharp notified and indicated it was okay to have the WLE and SLNB post . Instructions provided to reschedule BIBI. Allergies As of Date: 02/29/2024 Noted Allergy Reaction PENICILLINS 04/05/2022 16 - Unknown Comments: unknown Other Reaction(s): Unknown Reaction Date Reviewed: 01/21/2024 Reviewed by: Reji Manning RN - Fully Assessed Reason for Visit: Surgery Cancelled [4163] Appointment [186] Prescriptions as of 03/03/2024 - diphenhydramine HCl (UNISOM, DIPHENHYDRAMINE, ORAL) - [...] mg by mouth. - omeprazole magnesium (ACID BOUFFANT CURTAIN MACHINE TENDER, OMEPRAZOLE, ORAL) Take by mouth as directed. - PNV no.95/ferrous fum/folic ac ( ORAL) Take by mouth as directed. Problem List As Of Date 02/29/2024 Noted Resolved AMA (advanced maternal age) primigravida 35+, u*10/08/2023 Bipolar disorder (HCC) [F31.9] 01/21/2024 Chronic cluster headache [G44.029] 01/21/2024 GERD (gastroesophageal reflux disease) [K21.9] 01/21/2024 Mild intermittent asthma without complication [*02/13/2023 Placenta previa antepartum in second trimester *11/20/2023 Skin cancer [C44.90] 01/21/2024 Encounter Status:Closed by SURJIT GRIGGS on 03/03/24 [facility] 02-26-2024 CNPN Telephone ([place]) VY MCKEON ([id number]) 1990 F Date Time Provider Department 02/26/24 DAISY MURRAY During your visit today, we recorded the following information about you: Daisy Murray, BRITNEY 02/26/2024 12:23 PM Signed Pt calling for CT results. She is aware Dr Deshpande is out of office this week and will be in touch with his response Sunday. Louisa: Please advise Daisy Murray, RN Sylvia Alcala [facility] 02/26/2024 12:45 PM Signed Patient calling. [...] BRITNEY - Fully Assessed Reason for Visit: Results [...] mg by mouth. - omeprazole magnesium (ACID BOUFFANT CURTAIN MACHINE TENDER, OMEPRAZOLE, ORAL) Take by mouth as directed. [...] Status:Closed by SYLVIA ALCALA on 02/26/24 Normal [facility] CT CHEST W IVCONon CT CHEST W IVCON * * *Final Report* * * DATE OF EXAM: Feb 22 2024 11:19AM [facility] 0539 - CT CHEST W IVCON / [...] abdomen: Visualized upper abdomen is grossly unremarkable. Production Analyst (topogram) images: Unremarkable. IMPRESSION: Focal groundglass opacity [...] any questions regarding this interpretation, please call [phone]. If you are unable to reach us at the number above, please feel free to contact [facility] eRadiology at [phone]. [id number] N Normal [facility] CT NECK SOFT TISSUE W IVCONo n 02-22-2024 CT NECK SOFT TISSUE W IVCON * * *Final Report* * * DATE OF EXAM: Feb 22 2024 11:19AM [facility] 0013 - CT NECK SOFT TISSUE W [...] amalgam. Parotid and submandibular spaces are normal. General Warehouse Worker spaces appear normal. Infrahyoid Neck: Hypopharynx, larynx, [...] any questions regarding this interpretation, please call [phone]. If you are unable to reach us at the number above, please feel free to contact [facility] eRadiology at [phone]. [id number] N Normal [facility] CBC W Auto Differential pane l (Bld)on 02-20-2024 Basophils (Bld) [#/Vol] 0.03 10*3/uL Normal <0.11 [facility] Comment on above: Order Comment: Speci men Type: BLOOD SPECIMENOrdering Facility: [facility] Address: [address] [place] [address] Performed By: #### 5 7021-8 ####[facility] LABCLIA [id number] [place] [address] Basophils/100 WBC (Bld) 0.3 % Normal [facility] Comment on above: Order Comment: Speci men Type: BLOOD SPECIMENOrdering Facility: [facility] Address: [address] [place] [address] Performed By: #### 5 7021-8 ####[facility] LABCLIA [id number] [place] [address] Differential cell count method Nom (Bld) Auto Normal [facility] Comment on above: Order Comment: Speci men Type: BLOOD SPECIMENOrdering Facility: [facility] Address: [address] [place] [address] Performed By: #### 5 7021-8 ####[facility] LABCLIA [id number] [place] [address] Eosinophils (Bld) [#/Vol] 0.08 10*3/uL Normal <0.46 [facility] Comment on above: Order Comment: Speci men Type: BLOOD SPECIMENOrdering Facility: [facility] Address: [address] [place] [address] Performed By: #### 5 7021-8 ####[facility] LABCLIA [id number] [place] [address] Eosinophils/100 WBC (Bld) 0.8 % Normal [facility] Comment on above: Order Comment: Speci men Type: BLOOD SPECIMENOrdering Facility: [facility] Address: [address] [place] [address] Performed By: #### 5 7021-8 ####[facility] LABCLIA [id number] [place] [address] Erythrocyte distribution width (RBC) [Ratio] 13.5 % Normal 11.5-15.0 [facility] Comment on above: Order Comment: Speci men Type: BLOOD SPECIMENOrdering Facility: [facility] Address: [address] [place] [address] Performed By: #### 5 7021-8 ####[facility] LABCLIA [id number] [place] [address] Hematocrit (Bld) [Volume fraction] 33.4 % Low 36.0-46.0 [facility] Comment on above: Order Comment: Speci men Type: BLOOD SPECIMENOrdering Facility: [facility] Address: [address] [place] [address] Performed By: #### 5 7021-8 ####[facility] LABCLIA [id number] [place] [address] Hemoglobin (Bld) [Mass/Vol] 11.2 g/dL Low 11.5-15.5 [facility] Comment on above: Order Comment: Speci men Type: BLOOD SPECIMENOrdering Facility: [facility] Address: [address] [place] [address] Performed By: #### 5 7021-8 ####[facility] LABCLIA [id number] [place] [address] Immature granulocytes (Bld) [#/Vol] 0.07 10*3/uL Normal <0.10 [facility] Comment on above: Order Comment: Speci men Type: BLOOD SPECIMENOrdering Facility: [facility] Address: [address] [place] [address] Performed By: #### 5 7021-8 ####[facility] LABCLIA [id number] [place] [address] Immature granulocytes/100 WBC (Bld) 0.7 % Normal [facility] Comment on above: Order Comment: Speci men Type: BLOOD SPECIMENOrdering Facility: [facility] Address: [address] [place] [address] Performed By: #### 5 7021-8 ####[facility] LABCLIA [id number] [place] [address] Lymphocytes (Bld) [#/Vol] 1.13 10*3/uL Normal 1.00-4.00 [facility] Comment on above: Order Comment: Speci men Type: BLOOD SPECIMENOrdering Facility: [facility] Address: [address] [place] [address] Performed By: #### 5 7021-8 ####[facility] LABCLIA [id number] [place] [address] Lymphocytes/100 WBC (Bld) 10.7 % Normal [facility] Comment on above: Order Comment: Speci men Type: BLOOD SPECIMENOrdering Facility: [facility] Address: [address] [place] [address] Performed By: #### 5 7021-8 ####[facility] LABCLIA [id number] [place] [address] MCH (RBC) [Entitic mass] 29.5 pg Normal 26.0-34.0 [facility] Comment on above: Order Comment: Speci men Type: BLOOD SPECIMENOrdering Facility: [facility] Address: [address] [place] [address] Performed By: #### 5 7021-8 ####[facility] LABCLIA [id number] [place] [address] MCHC (RBC) [Mass/Vol] 33.5 g/dL Normal 30.5-36.0 [facility] Comment on above: Order Comment: Speci men Type: BLOOD SPECIMENOrdering Facility: [facility] Address: [address] [place] [address] Performed By: #### 5 7021-8 ####[facility] LABCLIA [id number] [place] [address] MCV (RBC) [Entitic vol] 87.9 fL Normal 80.0-100.0 [facility] Comment on above: Order Comment: Speci men Type: BLOOD SPECIMENOrdering Facility: [facility] Address: [address] [place] [address] Performed By: #### 5 7021-8 ####[facility] LABCLIA [id number] [place] [address] Monocytes (Bld) [#/Vol] 0.52 10*3/uL Normal <0.87 [facility] Comment on above: Order Comment: Speci men Type: BLOOD SPECIMENOrdering Facility: [facility] Address: [address] [place] [address] Performed By: #### 5 7021-8 ####[facility] LABCLIA [id number] [place] [address] Monocytes/100 WBC (Bld) 4.9 % Normal [facility] Comment on above: Order Comment: Speci men Type: BLOOD SPECIMENOrdering Facility: [facility] Address: [address] [place] [address] Performed By: #### 5 7021-8 ####[facility] LABCLIA [id number] [place] [address] Neutrophils (Bld) [#/Vol] 8.76 10*3/uL High 1.45-7.50 [facility] Comment on above: Order Comment: Speci men Type: BLOOD SPECIMENOrdering Facility: [facility] Address: [address] [place] [address] Performed By: #### 5 7021-8 ####[facility] LABCLIA [id number] [place] [address] Neutrophils/100 WBC (Bld) 82.6 % Normal [facility] Comment on above: Order Comment: Speci men Type: BLOOD SPECIMENOrdering Facility: [facility] Address: [address] [place] [address] Performed By: #### 5 7021-8 ####[facility] LABCLIA [id number] [place] [address] Nucleated RBC (Bld) [#/Vol] 10*3/uL Normal <0.01 [facility] Comment on above: Order Comment: Speci men Type: BLOOD SPECIMENOrdering Facility: [facility] Address: [address] [place] [address] Performed By: #### 5 7021-8 ####[facility] LABCLIA [id number] [place] [address] Nucleated RBC/100 WBC (Bld) [Ratio] 0.0 /100 WBC Normal [facility] Comment on above: Order Comment: Speci men Type: BLOOD SPECIMENOrdering Facility: [facility] Address: [address] [place] [address] Performed By: #### 5 7021-8 ####[facility] LABCLIA [id number] [place] [address] Platelet mean volume (Bld) [Entitic vol] 10.0 fL Normal 9.0-12.7 [facility] Comment on above: Order Comment: Speci men Type: BLOOD SPECIMENOrdering Facility: [facility] Address: [address] [place] [address] Performed By: #### 5 7021-8 ####[facility] LABCLIA [id number] [place] [address] Platelets (Bld) [#/Vol] 199 10*3/uL Normal 150-400 [facility] Comment on above: Order Comment: Speci men Type: BLOOD SPECIMENOrdering Facility: [facility] Address: [address] [place] [address] Performed By: #### 5 7021-8 ####[facility] LABIA [id number] [place] [address] RBC (Bld) [#/Vol] 3.80 10*6/uL Low 3.90-5.20 [facility] Comment on above: Order Comment: Speci men Type: BLOOD SPECIMENOrdering Facility: [facility] Address: [address] [place] [address] Performed By: #### 5 7021-8 ####[facility] LABIA [id number] [place] [address] WBC (Bld) [#/Vol] 10.59 10*3/uL Normal 3.70-11.00 [facility] Comment on above: Order Comment: Speci men Type: BLOOD SPECIMENOrdering Facility: [facility] Address: [address] [place] [address] Performed By: #### 5 7021-8 ####[facility] LABIA [id number] [place] [address] Comprehensive metabolic 2000 panelon 02-20-2024 Albumin [Mass/Vol] 3.8 g/dL Low 3.9-4.9 [facility] Comment on above: Order Comment: Speci men Type: BLOOD SPECIMENOrdering Facility: [facility] Address: [address] [place] [address] Performed By: #### 2 432-8, 2531-0 ####[facility] LABCLIA [id number] [place] [address] ALP [Catalytic activity/Vol] 161 U/L High 34-123 [facility] Comment on above: Order Comment: Speci men Type: BLOOD SPECIMENOrdering Facility: [facility] Address: [address] [place] [address] Performed By: #### 2 432-8, 2531-0 ####[facility] LABCLIA [id number] [place] [address] ALT [Catalytic activity/Vol] 13 U/L Normal 7-38 [facility] Comment on above: Order Comment: Speci men Type: BLOOD SPECIMENOrdering Facility: [facility] Address: [address] [place] [address] Performed By: #### 2 432-8, 2531-0 ####[facility] LABCLIA [id number] [place] [address] Anion gap [Moles/Vol] 10 mmol/L Normal 9-18 [facility] Comment on above: Order Comment: Speci men Type: BLOOD SPECIMENOrdering Facility: [facility] Address: [address] [place] [address] Performed By: #### 2 432-8, 2531-0 ####[facility] LABCLIA [id number] [place] [address] AST [Catalytic activity/Vol] 21 U/L Normal 13-35 [facility] Comment on above: Order Comment: Speci men Type: BLOOD SPECIMENOrdering Facility: [facility] Address: [address] [place], [place] [address] Performed By: #### 2 4323-8, 2531-0 ####[facility] LABCLIA [id number] [place] [address] Bilirubin [Mass/Vol] 0.2 mg/dL Normal 0.2-1.3 [facility] Comment on above: Order Comment: Speci men Type: BLOOD SPECIMENOrdering Facility: [facility] Address: [address] [place] [address] Performed By: #### 2 4323-8, 2532-0 ####[facility] LABCLIA [id number] [place] [address] Calcium [Mass/Vol] 10.1 mg/dL Normal 8.5-10.2 [facility] Comment on above: Order Comment: Speci men Type: BLOOD SPECIMENOrdering Facility: [facility] Address: [address] [place] [address] Performed By: #### 2 4323-8, 253-0 ####[facility] LABCLIA [id number] [place] [address] Chloride [Moles/Vol] 103 mmol/L Normal 97-105 [facility] Comment on above: Order Comment: Speci men Type: BLOOD SPECIMENOrdering Facility: [facility] Address: [address] [place] [address] Performed By: #### 2 4323-8, 2531-0 ####[facility] LABCLIA [id number] [place] [address] CO2 [Moles/Vol] 21 mmol/L Low 22-30 [facility] Comment on above: Order Comment: Speci men Type: BLOOD SPECIMENOrdering Facility: [facility] Address: [address] [place] [address] Performed By: #### 2 4323-8, 2531-0 ####[facility] LABCLIA [id number] [place] [address] Creatinine [Mass/Vol] 0.61 mg/dL Normal 0.58-0.96 [facility] Comment on above: Order Comment: Speci men Type: BLOOD SPECIMENOrdering Facility: [facility] Address: [address] [address] Performed By: #### 2 4323-8, 2532-0 ####[facility] LABCLIA [id number] [place] [address] Creatinine and Glomerular filtration rate.predicted panel (S/P/Bld) 120 mL/min/1.73m??? Normal >=60 [facility] Comment on above: Order Comment: Kavin childress Type: BLOOD SPECIMENOrdering Facility: [facility] Address: [address] [place] [address] Result Comment: Araseli mated Glomerular Filtration Rate [...] actual GFR. Performed By: #### 2 4323-8, 2-0 ####[facility] LABCLIA [id number] [place] [address] Glucose [Mass/Vol] 85 mg/dL Normal 74-99 [facility] Comment on above: Order Comment: Kavin childress Type: BLOOD SPECIMENOrdering Facility: [facility] Address: [address] [place] [address] Result Comment: The [place] Diabetes Association (ADA) provides guidance for cutoff [...] Standards of Medical Care in Diabetes 2016, [place] [employer]. Diabetes Care. 2016.39(Suppl 1). Performed By: #### 2 4323-8, 2531-0 ####[facility] LABCLIA [id number] [place] [address] Potassium [Moles/Vol] 3.9 mmol/L Normal 3.7-5.1 [facility] Comment on above: Order Comment: Speci men Type: BLOOD SPECIMENOrdering Facility: [facility] Address: [address] [place] [address] Performed By: #### 2 432-8, 2531-0 ####[facility] LABCLIA [id number] [place] [address] Protein [Mass/Vol] 7.2 g/dL Normal 6.3-8.0 [facility] [place] Comment on above: Order Comment: Speci men Type: BLOOD SPECIMENOrdering Facility: [facility] Address: [address] [place] [address] Performed By: #### 2 4328, 0 ####[facility] LABCLIA [id number] [place] [address] Sodium [Moles/Vol] 134 mmol/L Low 136-144 [facility] [place] Comment on above: Order Comment: Speci men Type: BLOOD SPECIMENOrdering Facility: [facility] Address: [address] [place] [address] Performed By: #### 2 43238, 2531-0 ####[facility] LABCLIA [id number] [place] [address] Urea nitrogen [Mass/Vol] 6 mg/dL Low 7-21 [facility] Comment on above: Order Comment: Speci men Type: BLOOD SPECIMENOrdering Facility: [facility] Address: [address] [place] [address] Performed By: #### 2 4323-8, 2531-0 ####[facility] LABCLIA [id number] [place] [address] LDH SerPl-cCncon 02-20-2024 LDH [Catalytic activity/Vol] 210 U/L Normal 135-214 [facility] Comment on above: Order Comment: Speci men Type: BLOOD SPECIMENOrdering Facility: [facility] Address: [address] [place] [address] Performed By: #### 2 4323-8, 0 ####[facility] LABCLIA [id number] [place] [address] COMPLETE BLOOD COUNTon 01-28 Erythrocyte distribution width (RBC) [Ratio] 13.6 % Normal 11.5-15.0 [facility] Comment on above: Performed By: #### C GUI CMP, 0, 3083-10 #### [facility] ([id number]) [address] [place] [address] Hematocrit (Bld) [Volume fraction] 29.4 % Low 35-47 [facility] Comment on above: Performed By: #### C BC CMP, 0, 3083-10 #### [facility] ([id number]) [address] [place] [address] Hemoglobin (Bld) [Mass/Vol] 10.4 g/dL Low 11.7-15.5 [facility] Comment on above: Performed By: #### C BC CMP, 0, 3083-10 #### [facility] ([id number]) [address] [place] [address] 09465 MCH (RBC) [Entitic mass] 31.0 pg Normal 27-34 [facility] Comment on above: Performed By: #### C BC CMP, 0, 3083-1 #### [facility] ([id number]) [address] [place] [address]251 MCHC (RBC) [Mass/Vol] 35.3 g/dL Normal 32-36 [facility] Comment on above: Performed By: #### C BC CMP, 0, 3084- #### [facility] ([id number]) [address] [place] [address] 12986 MCV (RBC) [Entitic vol] 88 fL Normal 80-100 [facility] Comment on above: Performed By: #### C BC, CMP, 2532-0, 3083-1 #### [facility] ([id number]) [address] [place] [address] 69408 Platelet mean volume (Bld) [Entitic vol] 8.1 fL Normal 7-12 [facility] Comment on above: Performed By: #### C BC, CMP, 2531-0, 3083- #### [facility] ([id number]) [address] [place] [address]97 Platelets (Bld) [#/Vol] 205 10*3/uL Normal 150-450 [facility] Comment on above: Performed By: #### C BC, CMP, 253-0, 3083- #### [facility] ([id number]) [address] [place] [address] 42959 RBC COUNT 3.34 X10E12/L Low 3.80-5.20 [facility] Comment on above: Performed By: #### C BC, CMP, 253-0, 3083- #### [facility] ([id number]) [address] [place] [address] 88660 WBC (Bld) [#/Vol] 8.2 10*3/uL Normal 4.0-11.0 [facility] Comment on above: Performed By: #### C BC, CMP, 2532-0, 3083-1 #### [facility] ([id number]) [address] [place] [address] COMPREHENSIVE METABOLIC PANE Joel 01-29-2024 Albumin [Mass/Vol] 2.8 g/dL Low 3.2-5.3 [facility] Comment on above: Performed By: #### C BC, CMP, 2532-0, 3084-1 #### [facility] ([id number]) [address] [place] [address] 56252 ALP [Catalytic activity/Vol] 103 U/L Normal 39-130 [facility] Comment on above: Performed By: #### C BC, CMP, 2531-0, 3083-1 #### [facility] ([id number]) [address] [place] [address] 53075 ALT [Catalytic activity/Vol] 16 U/L Normal 0-31 [facility] Comment on above: Performed By: #### C BC, CMP, 2531-0, 3083-1 #### [facility] ([id number]) [address] [place] [address] [place] [address] Anion gap [Moles/Vol] 9 mmol/L Normal 5-15 [facility] Comment on above: Performed By: #### C BC, CMP, 2531-0, 3083-1 #### [facility] ([id number]) [address] [place] [address] 21429 AST [Catalytic activity/Vol] 18 U/L Normal 0-41 [facility] Comment on above: Performed By: #### C BC, CMP, 2531-0, 3083-1 #### [facility] ([id number]) [address] [place] [address] [place] [address] Bilirubin [Mass/Vol] 0.3 mg/dL Normal 0.3-1.2 [facility] Comment on above: Performed By: #### C BC, CMP, 2532-0, 3084-1 #### [facility] ([id number]) [address] [place] [address] [place] [address] Calcium [Mass/Vol] 9.2 mg/dL Normal 8.5-10.5 [facility] Comment on above: Performed By: #### Adri MESSER CMP, 2532-0, 3083-1 #### [facility] ([id number]) [address] [place] [address] 61697 Chloride [Moles/Vol] 105 mmol/L Normal 98-109 [facility] Comment on above: Performed By: #### Adri MESSER CMP, 2531-0, 3083-1 #### [facility] ([id number]) [address] [place] [address] 60702 CO2 [Moles/Vol] 22 mmol/L Normal 22-32 [facility] Comment on above: Performed By: #### Adri MESSER [facility], 2531-0, 3083-10 #### [facility] ([id number]) [address] [place] [address] 12268 Creatinine [Mass/Vol] 0.51 mg/dL Normal 0.40-1.00 [facility] Comment on above: Result Comment: METH OD TRACEABLE TO IDMS STANDARD Performed By: #### Adri MESSER [facility], 0, 3083-10 #### [facility] ([id number]) [address] [place] [address]371 eGFR (CKD-EPI) NON-RACE DEPENDENT >90 Normal >59 [facility] Comment on above: Result Comment: Reported eGFR is based on the CKD-EPI 1 equation that does not use a race coefficient. Performed By: #### Adri MESSER CMP, 2531-0, 3083-10 #### [facility] ([id number]) [address] [place] [address] 41090 Glucose [Mass/Vol] 96 mg/dL Normal 65-99 [facility] Comment on above: Performed By: #### Adri MESSER CMP, 2532-0, 3083-1 #### [facility] ([id number]) [address] [place] [address]153 Potassium [Moles/Vol] 4.1 mmol/L Normal 3.5-5.0 [facility] Comment on above: Performed By: #### C BC, CMP, 2531-0, 3083-1 #### [facility] ([id number]) [address] [place] [address] 92887 Protein [Mass/Vol] 6.5 g/dL Normal 6.0-8.0 [facility] Comment on above: Performed By: #### Adri BC, CMP, 0, 3083- #### [facility] ([id number]) [address] [place] [address]1962 Sodium [Moles/Vol] 136 mmol/L Normal 134-146 [facility] Comment on above: Performed By: #### Adri MESSER CMP, 0, 3083-10 #### [facility] ([id number]) [address] [place] [address] 60020 Urea nitrogen [Mass/Vol] 5 mg/dL Normal 5-23 [facility] Comment on above: Performed By: #### Adri BC, CMP, 0, 3083- #### [facility] ([id number]) [address] [place] [address] 68482 LDH [Catalytic activity/Vol] on 01-29-2024 LDH 128 U/L Normal 100-235 [facility] Comment on above: Performed By: #### C BC, CMP, 0, 3083-1 #### [facility] ([id number]) [address] [place] [address] 58943 PROTEIN CREAT RATIOon 2023 RANDOM URINE PROTEIN 30 mg/L Normal <120 [facility] Comment on above: Performed By: #### U PCR #### [facility] ([id number]) [address] [place] [address] 43723 U/PRO/PUMP HOUSE OPERATOR RATIO CALC 0.12 Normal <0.2 [facility] Comment on above: Result Comment: Neph rotic Syndrome is associated with ratios >3.5 Performed By: #### U PCR #### [facility] ([id number]) [address] [place] [address] 27164 URINE CREATININE,RDM 25.84 mg/dL Normal [facility] Comment on above: Performed By: #### U PCR #### [facility] ([id number]) [address] [place] [address] 08561 URIC ACIDon 01-29-2024 Urate [Mass/Vol] 4.1 mg/dL Normal 2.6-7.2 [facility] Comment on above: Performed By: #### C BC, CMP, 2532-0, 3084-1 #### [facility] ([id number]) [address] [place] [address]307 CNPNon 01-25-2024 CNPN Telephone (PLASMN) VY MCKEON ([id number]) 1990 F Date Time Provider Department 01/25/24 [...] mg by mouth. - omeprazole magnesium (ACID BOUFFANT CURTAIN MACHINE TENDER, OMEPRAZOLE, ORAL) Take by mouth as directed. [...] Encounter Status:Closed [facility] (SHARLENE) VY MCKEON ([id number]) 1990 F Date Time Provider Department 01/22/24 [...] sound right? (February 19) Thanks, louisa. Daisy Murray RN 01/24/2024 9:20 AM Signed Is [...] MD 1 hour ago (8:13 AM) [address], That is fine obstetrically if you are [...] [C43.9] Order(s):CT NECK SOFT TISSUE W IVCON [[id number]] Order #: [id number] FUTURE [] iv contrast (will be provided [...] 1 EachRfl: 0 CT CHEST W IVCON [8334091] Order #: [id number] FUTURE [] iv contrast (will be provided [...] EachRfl: 0 LACTATE DEHYDROGENASE [SQLD6] Order #: [id number] FUTURE COMPLETE BLOOD COUNT AND DIFFERENTIAL [SQCBCDIF] Order #: [id number] FUTURE COMPREHENSIVE METABOLIC PANEL [SQCMP] Order #: [id number] FUTURE Prescriptions as of 01/30/2024 - diphenhydramine [...] mg by mouth. - omeprazole magnesium (ACID BOUFFANT CURTAIN MACHINE TENDER, OMEPRAZOLE, ORAL) Take by mouth as directed. [...] In Off (more content not included)... Normal [facility] Telephone (HAU654) VY MCKEON ([id number]) 1990 F Date Time Provider Department 01/22/24 ANA PEOPLES [id number] During your visit today, we recorded the following information about you: Ana Peoples MD 01/22/2024 3:44 PM Signed 01/22/2024 [facility] Pt called and identified ~ [...] mg by mouth. - omeprazole magnesium (ACID BOUFFANT CURTAIN MACHINE TENDER, OMEPRAZOLE, ORAL) Take by mouth as directed. [...] Status:Closed by ANA PEOPLES on 01/22/24 Normal [facility] Examination level ultrasound on 01-21-2024 Indication [...] 9 oz EFW by: Hadlock (HC-AC-FL) Extended Career Services Director 3.1 mm CM 7.6 mm 70% Nicolaides [...] normal LVOT view: normal 3-vessel view: normal 8-hzveed-utgikwh view: normal Heart / Thorax Situs: situs [...] Peoples MD MATERNAL MEDICINE [facility] Radiology Study observation (narrative) [facility] [place] 01-18-2024 KIERAN Telephone (OBGYF2) OTTOTONNY CastellanoVY ([id number]) 1990 F Date Time Provider Department 01/18/24 [...] mg by mouth. - omeprazole magnesium (ACID BOUFFANT CURTAIN MACHINE TENDER, OMEPRAZOLE, ORAL) Take by mouth as directed. - PNV no.95/ferrous fum/folic ac ( ORAL) Take by mouth as directed. Problem List As Of Date: 01/18/2024 (None) Encounter Status:Closed by JOSE L CRWOLEY on 01/18/24 [facility] [place] 01-10-2024 CNPN Telephone (OBGYF2) VY MCKEON ([id number]) 1990 F Date Time Provider Department 01/10/24 HISTORICAL OBGYF2 During your visit today, we recorded the following information about you: Rolo Parada 01/10/2024 9:19 AM Signed [employer] msg was sent to patient asking for [...] mg by mouth. - omeprazole magnesium (ACID BOUFFANT CURTAIN MACHINE TENDER, OMEPRAZOLE, ORAL) Take by mouth as directed. - PNV no.95/ferrous fum/folic ac ( ORAL) Take by mouth as directed. Problem List As Of Date: 01/10/2024 (None) Encounter Status:Closed by ROLO PARADA on 01/10/24 [facility] [place] 01-09-2024 PRADEEPN Telephone (PLASMN) VY MCKEON ([id number]) 1990 F Date Time Provider Department 01/09/24 FRANSICO SHARP During your visit today, we recorded the following information about you: Fernanda Michael 01/09/2024 9:55 AM Signed Patient called that she is seeing Maternal Med, in her area and was questioning does she need to see one at the [facility]? She is asking for a call.. she is very nervous Surjit Griggs, BRITNEY 01/09/2024 12:42 PM Signed Reached out to patient. Instructions provided to see a maternal medicine specialist within the [facility] per Dr. Sharp. This nurse [...] mg by mouth. - omeprazole magnesium (ACID BOUFFANT CURTAIN MACHINE TENDER, OMEPRAZOLE, ORAL) Take by mouth as directed. - PNV no.95/ferrous fum/folic ac ( ORAL) Take by mouth as directed. Problem List As Of Date: 01/09/2024 (None) Encounter Status:Closed by FERNANDA MICHAEL on 01/09/24 Normal [facility] CNOVSPon 01-04-2024 CNOVSP Visit (SP) Office (PLASCA) VY MCKEON ([id number]) 1990 F Date Time Provider Department 01/04/24 2:15 PM FRANSICO SHARP During your visit today, we recorded the following information about you: Temperature Pulse Respiration Blood pressure 97.1 degrees 94/minute 20/minute 148/83 Fransico Sharp MD 01/06/2024 9:42 AM Signed DATE: January 03, 2024 CC: New Melanoma Patient Referring Physician: Margarita Kim MD at [facility] [place] HPI: Vy Mckeon is a 33 year [...] 400 mg by mouth. omeprazole magnesium (ACID BOUFFANT CURTAIN MACHINE TENDER, OMEPRAZOLE, ORAL) Take by mouth as directed. [...] left upper lip with a variegated pattern, hobber in the middle with a number of [...] taken and uploaded to chart today via [employer] - Pathology re-read to be obtained - Surgical plan is for resection of left upper lip melano (more content not included)... Normal [facility] CBC W Auto Differential pane l (Bld)on 12-26-2023 Basophils (Bld) [#/Vol] 0.03 10*3/uL Normal <0.11 [facility] Comment on above: Order Comment: Speci men Type: BLOOD SPECIMENOrdering Facility: [facility] Address: [address] [place] [address] Performed By: #### 5 7021-8 ####[facility] LABCLIA [id number] [place] [address] Basophils/100 WBC (Bld) 0.3 % Normal [facility] Comment on above: Order Comment: Speci men Type: BLOOD SPECIMENOrdering Facility: [facility] Address: [address] [place] [address] Performed By: #### 5 7021-8 ####[facility] LABCLIA [id number] [place] [address] Differential cell count method Nom (Bld) Auto Normal [facility] Comment on above: Order Comment: Speci men Type: BLOOD SPECIMENOrdering Facility: [facility] Address: [address] [place] [address] Performed By: #### 5 7021-8 ####[facility] LABCLIA [id number] [place] [address] Eosinophils (Bld) [#/Vol] 0.15 10*3/uL Normal <0.46 [facility] Comment on above: Order Comment: Speci men Type: BLOOD SPECIMENOrdering Facility: [facility] Address: [address] [place] [address] Performed By: #### 5 7021-8 ####[facility] LABCLIA [id number] [place] [address] Eosinophils/100 WBC (Bld) 1.5 % Normal [facility] Comment on above: Order Comment: Speci men Type: BLOOD SPECIMENOrdering Facility: [facility] Address: [address] [place] [address] Performed By: #### 5 7021-8 ####[facility] LABCLIA [id number] [place] [address] Erythrocyte distribution width (RBC) [Ratio] 13.5 % Normal 11.5-15.0 [facility] Comment on above: Order Comment: Speci men Type: BLOOD SPECIMENOrdering Facility: [facility] Address: [address] [place] [address] Performed By: #### 5 7021-8 ####[facility] LABCLIA [id number] [place] [address] Hematocrit (Bld) [Volume fraction] 35.5 % Low 36.0-46.0 [facility] Comment on above: Order Comment: Speci men Type: BLOOD SPECIMENOrdering Facility: [facility] Address: [address] [place] [address] Performed By: #### 5 7021-8 ####[facility] LABCLIA [id number] [place] [address] Hemoglobin (Bld) [Mass/Vol] 12.0 g/dL Normal 11.5-15.5 [facility] Comment on above: Order Comment: Speci men Type: BLOOD SPECIMENOrdering Facility: [facility] Address: [address] [place] [address] Performed By: #### 5 7021-8 ####[facility] LABCLIA [id number] [place] [address] Immature granulocytes (Bld) [#/Vol] 0.06 10*3/uL Normal <0.10 [facility] Comment on above: Order Comment: Speci men Type: BLOOD SPECIMENOrdering Facility: [facility] Address: [address] [place] [address] Performed By: #### 5 7021-8 ####[facility] LABCLIA [id number] [place] [address] Immature granulocytes/100 WBC (Bld) 0.6 % Normal [facility] Comment on above: Order Comment: Speci men Type: BLOOD SPECIMENOrdering Facility: [facility] Address: [address] [place] [address] Performed By: #### 5 7021-8 ####[facility] LABCLIA [id number] [place] [address] Lymphocytes (Bld) [#/Vol] 1.46 10*3/uL Normal 1.00-4.00 [facility] Comment on above: Order Comment: Speci men Type: BLOOD SPECIMENOrdering Facility: [facility] Address: [address] [place] [address] Performed By: #### 5 7021-8 ####[facility] LABCLIA [id number] [place] [address] Lymphocytes/100 WBC (Bld) 15.0 % Normal [facility] Comment on above: Order Comment: Speci men Type: BLOOD SPECIMENOrdering Facility: [facility] Address: [address] [place] [address] Performed By: #### 5 7021-8 ####[facility] LABCLIA [id number] [place] [address] MCH (RBC) [Entitic mass] 30.1 pg Normal 26.0-34.0 [facility] Comment on above: Order Comment: Speci men Type: BLOOD SPECIMENOrdering Facility: [facility] Address: [address] [place] [address] Performed By: #### 5 7021-8 ####[facility] LABCLIA [id number] [place] [address] MCHC (RBC) [Mass/Vol] 33.8 g/dL Normal 30.5-36.0 [facility] Comment on above: Order Comment: Speci men Type: BLOOD SPECIMENOrdering Facility: [facility] Address: [address] [place] [address] Performed By: #### 5 7021-8 ####[facility] LABCLIA [id number] [place] [address] MCV (RBC) [Entitic vol] 89.0 fL Normal 80.0-100.0 [facility] Comment on above: Order Comment: Speci men Type: BLOOD SPECIMENOrdering Facility: [facility] Address: [address] [place] [address] Performed By: #### 5 7021-8 ####[facility] LABCLIA [id number] [place] [address] Monocytes (Bld) [#/Vol] 0.50 10*3/uL Normal <0.87 [facility] Comment on above: Order Comment: Speci men Type: BLOOD SPECIMENOrdering Facility: [facility] Address: [address] [place] [address] Performed By: #### 5 7021-8 ####[facility] LABCLIA [id number] [place] [address] Monocytes/100 WBC (Bld) 5.1 % Normal [facility] Comment on above: Order Comment: Speci men Type: BLOOD SPECIMENOrdering Facility: [facility] Address: [address] [place] [address] Performed By: #### 5 7021-8 ####[facility] LABCLIA [id number] [place] [address] Neutrophils (Bld) [#/Vol] 7.52 10*3/uL High 1.45-7.50 [facility] Comment on above: Order Comment: Speci men Type: BLOOD SPECIMENOrdering Facility: [facility] Address: [address] [place] [address] Performed By: #### 5 7021-8 ####[facility] LABCLIA [id number] [place] [address] Neutrophils/100 WBC (Bld) 77.5 % Normal [facility] Comment on above: Order Comment: Speci men Type: BLOOD SPECIMENOrdering Facility: [facility] Address: [address] [place] [address] Performed By: #### 5 7021-8 ####[facility] LABCLIA [id number] [place] [address] Nucleated RBC (Bld) [#/Vol] 10*3/uL Normal <0.01 [facility] Comment on above: Order Comment: Speci men Type: BLOOD SPECIMENOrdering Facility: [facility] Address: [address] [place] [address] Performed By: #### 5 7021-8 ####[facility] LABCLIA [id number] [place] [address] Nucleated RBC/100 WBC (Bld) [Ratio] 0.0 /100 WBC Normal [facility] Comment on above: Order Comment: Speci men Type: BLOOD SPECIMENOrdering Facility: [facility] Address: [address] [place] [address] Performed By: #### 5 7021-8 ####[facility] LABCLIA [id number] [place] [address] Platelet mean volume (Bld) [Entitic vol] 10.1 fL Normal 9.0-12.7 [facility] Comment on above: Order Comment: Speci men Type: BLOOD SPECIMENOrdering Facility: [facility] Address: [address] [place] [address] Performed By: #### 5 7021-8 ####[facility] LABCLIA [id number] [place] [address] Platelets (Bld) [#/Vol] 224 10*3/uL Normal 150-400 [facility] Comment on above: Order Comment: Speci men Type: BLOOD SPECIMENOrdering Facility: [facility] Address: [address] [place] [address] Performed By: #### 5 7021-8 ####[facility] LABIA [id number] [place] [address] RBC (Bld) [#/Vol] 3.99 10*6/uL Normal 3.90-5.20 [facility] Comment on above: Order Comment: Speci men Type: BLOOD SPECIMENOrdering Facility: [facility] Address: [address] [place] [address] Performed By: #### 5 7021-8 ####[facility] LABIA [id number] [place] [address] WBC (Bld) [#/Vol] 9.72 10*3/uL Normal 3.70-11.00 [facility] Comment on above: Order Comment: Speci men Type: BLOOD SPECIMENOrdering Facility: [facility] Address: [address] [place] [address] Performed By: #### 5 7021-8 ####[facility]IA [id number] [place] [address] CNOVSPon 12-26-2023 [facility] Visit (SP) Office (HEMASA) VY MCKEON ([id number]) 1990 F Date Time Provider Department 12/26/23 3:30 PM USMAN GOLDBERG During your visit today, we recorded the following information about you: Temperature Pulse Respiration Blood pressure 97.3 degrees 87/minute 16/minute 134/74 Weight Height Last Period 86.1 kg 1.702 m 06/24/23 Usman Goldberg MD 12/27/2023 12:46 PM Signed NAME: Vy Mckeon NO.: [id number] DATE OF SERVICE: December 26, 2023 (Krystal) [...] magnesium (ACID (more content not included)... Normal [facility] Comprehensive metabolic 2000 panelon 12-26-2023 Albumin [Mass/Vol] 3.9 g/dL Normal 3.9-4.9 [facility] [place] Comment on above: Order Comment: Speci men Type: BLOOD SPECIMENOrdering Facility: [facility] Address: [address] [place] [address] Performed By: #### 2 4323-8, 2532-0 ####[facility] LABCLIA [id number] [place] [address] ALP [Catalytic activity/Vol] 109 U/L Normal 34-123 [facility] Comment on above: Order Comment: Speci men Type: BLOOD SPECIMENOrdering Facility: [facility] Address: [address] [place] [address] Performed By: #### 2 432-8, 2531-0 ####[facility] LABCLIA [id number] [place] [address] ALT [Catalytic activity/Vol] 26 U/L Normal 7-38 [facility] Comment on above: Order Comment: Speci men Type: BLOOD SPECIMENOrdering Facility: [facility] Address: [address] [place] [address] Performed By: #### 2 432-8, 2531-0 ####[facility] LABCLIA [id number] [place] [address] Anion gap [Moles/Vol] 10 mmol/L Normal 9-18 [facility] Comment on above: Order Comment: Speci men Type: BLOOD SPECIMENOrdering Facility: [facility] Address: [address] [place] [address] Performed By: #### 2 4323-8, 2531-0 ####[facility] LABCLIA [id number] [place] [address] AST [Catalytic activity/Vol] 26 U/L Normal 13-35 [facility] Comment on above: Order Comment: Speci men Type: BLOOD SPECIMENOrdering Facility: [facility] Address: [address] [place] [address] Performed By: #### 2 432-8, 2531-0 ####[facility] LABCLIA [id number] [place] [address] Bilirubin [Mass/Vol] 0.2 mg/dL Normal 0.2-1.3 [facility] Comment on above: Order Comment: Speci men Type: BLOOD SPECIMENOrdering Facility: [facility] Address: [address] [place] [address] Performed By: #### 2 4323-8, 2531-0 ####[facility] LABCLIA [id number] [place] [address] Calcium [Mass/Vol] 10.1 mg/dL Normal 8.5-10.2 [facility] [place] Comment on above: Order Comment: Speci men Type: BLOOD SPECIMENOrdering Facility: [facility] Address: [address] [place] [address] Performed By: #### 2 4323-8, 2531-0 ####[facility] LABCLIA [id number] [place] [address] Chloride [Moles/Vol] 103 mmol/L Normal 97-105 [facility] Comment on above: Order Comment: Speci men Type: BLOOD SPECIMENOrdering Facility: [facility] Address: [address] [place] [address] Performed By: #### 2 4323-8, 2531-0 ####[facility] LABCLIA [id number] [place] [address] CO2 [Moles/Vol] 23 mmol/L Normal 22-30 [facility] Comment on above: Order Comment: Speci men Type: BLOOD SPECIMENOrdering Facility: [facility] Address: [address] [place] [address] Performed By: #### 2 4323-8, 2531-0 ####[facility] LABCLIA [id number] [place] [address] Creatinine [Mass/Vol] 0.64 mg/dL Normal 0.58-0.96 [facility] Comment on above: Order Comment: Speci men Type: BLOOD SPECIMENOrdering Facility: [facility] Address: [address] [place], [place] [address] Performed By: #### 2 4323-8, 2532-0 ####[facility] LABCLIA [id number] [place] [address] Creatinine and Glomerular filtration rate.predicted panel (S/P/Bld) 118 mL/min/1.73m??? Normal >=60 [facility] Comment on above: Order Comment: Kavin childress Type: BLOOD SPECIMENOrdering Facility: [facility] Address: [address] [place] [address] Result Comment: Araseli mated Glomerular Filtration Rate [...] GFR. Performed By: #### 2 4323-8, 2532-0 ####[facility] LABIA [id number] [place] [address] Glucose [Mass/Vol] 85 mg/dL Normal 74-99 [facility] [place] Comment on above: Order Comment: Kavin childress Type: BLOOD SPECIMENOrdering Facility: [facility] Address: [address] [place] [address] Result Comment: The [place] [employer] Association (ADA) provides guidance for cutoff [...] Standards of Medical Care in Diabetes 2016, [place] [employer]. Diabetes Care. 2016.39(Suppl 1). Performed By: #### 2 4323-8, 253-0 ####[facility] LABIA [id number] [place] [address] Potassium [Moles/Vol] 4.1 mmol/L Normal 3.7-5.1 [facility] Comment on above: Order Comment: Kavin childress Type: BLOOD SPECIMENOrdering Facility: [facility] Address: [address] [place] [address] Performed By: #### 2 4323-8, 2531-0 ####[facility] LABCLIA [id number] [place] [address] Protein [Mass/Vol] 7.3 g/dL Normal 6.3-8.0 [facility] [place] Comment on above: Order Comment: Speci men Type: BLOOD SPECIMENOrdering Facility: [facility] Address: [address] [place] [address] Performed By: #### 2 4323-8, 2531-0 ####[facility] LABCLIA [id number] [place] [address] Sodium [Moles/Vol] 136 mmol/L Normal 136-144 [facility] [place] Comment on above: Order Comment: Speci men Type: BLOOD SPECIMENOrdering Facility: [facility] Address: [address] [place] [address] Performed By: #### 2 4323-8, 2531-0 ####[facility] LABCLIA [id number] [place] [address] Urea nitrogen [Mass/Vol] 6 mg/dL Low 7-21 [facility] Comment on above: Order Comment: Speci men Type: BLOOD SPECIMENOrdering Facility: [facility] Address: [address] [place] [address] Performed By: #### 2 4323-8, 2531-0 ####[facility] LABCLIA [id number] [place] [address] LDH SerPl-cCncon 12-26-2023 LDH [Catalytic activity/Vol] 190 U/L Normal 135-214 [facility] Comment on above: Order Comment: Speci men Type: BLOOD SPECIMENOrdering Facility: [facility] Address: [address] [place] [address] Result Comment: Hemo lysis present. The origin [...] indicated. Performed By: #### 2 4323-8, 2532-0 ####[facility] LABCLIA [id number] [place] [address] URETHRITIS/DISCHARGE PLUS VA GINITIS (HTRX)on 11-14-2023 ATOPOBIUM VAGINAE 19.497 Abnormal [facility] ATOPOBIUM VAGINAE Detected Abnormal [facility] althcare BVAB 2,3 (BACTERIAL VAGINOSIS ASSOCIATED BACTERIA 2, 3); MOBILUNCUS SPP 15.096 Abnormal [facility] Healthcare BVAB 2,3 (BACTERIAL VAGINOSIS ASSOCIATED BACTERIA 2, 3); MOBILUNCUS SPP Detected Abnormal [facility] DIANE ALBICANS, PARAPSILOSIS, TROPICALIS 0 [facility] DIANE ALBICANS, PARAPSILOSIS, TROPICALIS Not detected [facility] Healthcare DIANE GLABRATA 0 [facility] Hea lthcare DIANE GLABRATA Not detected [facility] DIANE KRUSEI 0 [facility] Healt hcare DIANE KRUSEI Not detected [facility] CHLAMYDIA TRACHOMATIS 0 [facility] CHLAMYDIA TRACHOMATIS Not detected [facility] Healthcare DFR (A1, A5), SUL (1,2) 0 PPM [facility] Healthcare DFR (A1, A5), SUL (1,2) Not detected [facility] ERMB, C; MEFA 14.773 Abnormal PPM [facility] care ERMB, C; MEFA Detected Abnormal [facility] care GARDNERELLA VAGINALIS 0 [facility] GARDNERELLA VAGINALIS Not detected [facility] Interpretation and review of laboratory results Abnormal [facility] Healthca re MEGASPHAERA (TYPES 1, 2) 0 [facility] Healthcare MEGASPHAERA (TYPES 1, 2) Not detected [facility] MYCOPLASMA GENITALIUM 0 [facility] MYCOPLASMA GENITALIUM Not detected [facility] NEISSERIA GONORRHOEAE 0 [facility] NEISSERIA GONORRHOEAE Not detected [facility] TET B, TET M 18.414 Abnormal PPM [facility] Health are TET B, TET M Detected Abnormal [facility] Health are TRICHOMONAS VAGINALIS 0 [facility] TRICHOMONAS VAGINALIS Not detected [facility] e Unlisted Lab Teston 11-13-19 24 Unlisted lab test see scanned report [facility] Urinalysis macro (dipstick) panel (U)on 11-12-2023 Bilirubin, UA Negative Negative - 4(70) +++ mg/dL [facility] Blood, UA Negative Negative - 50 Manny/mcL [facility] Clarity, UA Clear [facility] Healthca re Color, UA Yellow [facility] Healthcar e Glucose, UA Negative Negative - 1999(110) ++++ mg/dL [facility] Interpretation and review of laboratory results Normal [facility] re Ketones, UA Negative Negative - 160(16) ++++ mg/dL [facility] Leukocytes, UA Negative Negative - 500+++ Luli/mcL [facility] Nitrite, UA Negative Negative - Positive [facility] pH, UA 6.0 5 - 9 [facility] e Protein, UA Negative Negative - 1999(20) ++++ mg/dL [facility] Spec Grav, UA 1.020 1 - 1.03 [facility] Urobilinogen, UA 1.0 0.2 - 12 mg/dL [facility] HCG ( test) IA.rapi d Ql (U)Ordered By: Karan Romero on 03-19-2023 HCG ( test) Ql (U) Negative [facility] HCG,Urineon 03-19-2023 Beta HCG ( test) Ql (U) Negative Normal [facility] Comment on above: Result Comment: PERF ORMED BY: [place] [address] PATHOLOGIST RESIDENCY DIRECTOR JOYCE ACHARYA M.D. Performed By: #### U HCG #### [place] [address] [place] 03-19-2023 L - -------- Specimen: [id number] Received: 03/19/23 Status: HEMANT Torres Num: [id number] Spec Type: Surgical Subm Dr: Karan Romero MD Tissues: A Duodenum - Biopsy (DUODENAL BX) B Esophagus Biopsy (ESOPHAGEAL) Procedures: HE/4, Gross/Micro L4/2 -------- Age/ Patient Sex Location Account Attending Physician -------- Vy Mckeon 32/F [id number] Karan Romero MD -------- SPEC NUM: [id number] RECD: 03/19/23 STATUS: HEMANT DAVILAPan NUM: [id number] ASAD: 03/19/[address] [facility] [address]: Karan Romero MD ENTERED: 03/19/23 [...] in one cassette labeled B1. -------- Specimen: [id number] Received: 03/19/23 Status: HEMANT Torres Num: [id number] Spec Type: Surgical Subm Dr: Karan Romero MD Tissues: A Duodenum - Biopsy (DUODENAL BX) B Esophagus Biopsy (ESOPHAGEAL) Procedures: HE/Maday, Gross/Micro L4/2 -------- Patient: Vy Mckeon [id number] (Continued) -------- Specimen: [id number] Received: 03/19/23 (Continued) Signed (signature on file) Doris Reynolds MD 03/20/23 1117 -------- Specimen: Received: 03/19/23 Status: HEMANT Torres Num: [id number] Spec Type: Surgical Subm Dr: Karan Romero MD Tissues: A Duodenum - Biopsy (DUODENAL BX) B Esophagus Biopsy (ESOPHAGEAL) Procedures: HE/Maday, Gross/Micro L4/2 -------- Patient: Vy Mckeon [id number] (Continued) -------- Specimen: [id number] Received: 03/19/23 (Continued) Microscopic Description A. Two with H E stained material have been examined. The microscopic findings support the above pathologic diagnosis. B. Two with H E stained material have been examined. The microscopic findings support the above pathologic diagnosis. CPT Codes 22920 x 2 -------- -------- Specimen: [id number] Received: 03/19/23 Status: HEMANT Melissa Num: [id number] Spec Type: Surgical Subm Dr: Karan Romero MD Tissues: A Duodenum - Biopsy (DUODENAL BX) B Esophagus Biopsy (ESOPHAGEAL) Procedures: HE/Maday, Jessica/Manasa L4/2 -------- Patient: Vy Mckeon [id number] (Continued) -------- Signed (signature on file) Doris Reynolds MD 03/20/23 [address] [facility] CBC AUTO DIFFon 02-09-2023 BASO # 0.0 103/ul Normal 0.0-0.1 [facility] Comment on above: Performed By: #### C BC ####[facility] [address] [place] [id number]. Zafar Branham Basophils/100 WBC (Bld) 0.3 % Normal 0.2-2.0 [facility] Comment on above: Performed By: #### C BC ####[facility] [address] [place] [address]Dr. Zafar Yonas EO # 0.2 103/ul Normal 0.0-0.7 [facility] Comment on above: Performed By: #### C BC ####[facility] [address] [place] [address]Dr. Zafar Yonas Eosinophils/100 WBC (Bld) 1.7 % Normal 0.9-7.0 [facility] Comment on above: Performed By: #### C BC ####[facility] [address] [place] [address]Dr. Zafar Branham Erythrocyte distribution width (RBC) [Ratio] 13.9 % Normal 11.0-15.0 [facility] Comment on above: Performed By: #### C BC ####[facility] [address] [place] [id number]. Zafar Branham Hematocrit (Bld) [Volume fraction] 41.0 % Normal 36.0-48.0 [facility] Comment on above: Performed By: #### C BC ####[facility] [address] [place] [id number]. Zafar Branham Hemoglobin (Bld) [Mass/Vol] 13.4 g/dL Normal 12.0-16.0 [facility] Comment on above: Performed By: #### C BC ####[facility] [address] [place] [id number]. Zafar Branham IG # 0.03 10e3/ul Normal 0.00-0.03 [facility] Comment on above: Performed By: #### C BC ####[facility] [address] [place] [id number]. Zafar Branham IG % 0.3 % Normal 0.0-0.5 [facility] Comment on above: Performed By: #### C BC ####[facility] [address] [place] [id number]. Zafar Branham LYMPH # 1.4 103/ul Normal 1.2-3.8 [facility] Comment on above: Performed By: #### C BC ####[facility] [address] [place] [id number]. Zafar Yonas Lymphocytes/100 WBC (Bld) 14.8 % Critically low 20.5-60.0 [facility] Comment on above: Performed By: #### C BC ####[facility] [address] [place] [id number]. Zafar Yonas MANUAL DIFF REQ NO Normal [facility] Comment on above: Performed By: #### C BC ####[facility] [address] [place] [id number]. Zafar Branham MCH (RBC) [Entitic mass] 28.8 pg Normal 26.7-34.0 [facility] Comment on above: Performed By: #### C BC ####[facility] [address] [place] [id number]. Zafar Branham MCHC (RBC) [Mass/Vol] 32.7 g/dL Normal 29.9-35.2 [facility] Comment on above: Performed By: #### C BC ####[facility] [address]insdf[address] [place] [id number]. Zafar Branham MCV (RBC) [Entitic vol] 88.0 fL Normal 81.0-99.0 [facility] Comment on above: Performed By: #### C BC ####[facility] [address] [place] [address]Dr. Zafar Yonas MONO # 0.4 103/ul Normal 0.3-0.8 [facility] Comment on above: Performed By: #### C BC ####[facility] [address] [place] [id number]. Zafar Branham Monocytes/100 WBC (Bld) 3.9 % Normal 1.7-12.0 [facility] Comment on above: Performed By: #### C BC ####[facility] [address] [place] [id number]. Zafar Branham NEUT # 7.2 103/ul Critically high 1.4-6.5 [facility] Comment on above: Performed By: #### C BC ####[facility] [address]faxy[address] [place] [id number]. Zafar Branham Neutrophils/100 WBC (Bld) 79.0 % Critically high 43.0-75.0 [facility] Comment on above: Performed By: #### C BC ####[facility] [address] [place] [address]Dr. Zafar Branham Platelet mean volume (Bld) [Entitic vol] 10.7 fL Normal 9.5-13.5 [facility] Comment on above: Performed By: #### C BC ####[facility] [address] [place] [id number]. Zafar Branham PLT 353 103/ul Normal 150-450 [facility] Comment on above: Performed By: #### C BC ####[facility] [address] [place] [id number]. Zafar Branham RBC 4.66 106/ul Normal 4.20-5.40 [facility] Comment on above: Performed By: #### C BC ####[facility] [address]kg[address] [place] [id number]. Zafar Branham WBC 9.2 103/ul Normal 4.0-11.0 [facility] Comment on above: Performed By: #### C BC ####[facility] [address]xt[address] [place] [address]Dr. Zafar Branham CRPon 02-09-2023 CRP 1.0 mg/dL Normal <=1.0 [facility] Comment on above: Performed By: #### C RP, CMP, TSH, LIPID ####[facility] [address] [place], [place] [address]Yq. Zafar Branham FREE T4on 02-09-2023 Free T4 [Mass/Vol] 1.01 ng/dL Normal 0.76-1.46 [facility] Comment on above: Performed By: #### F T4 #### [facility] Laboratory [address] [place], [place] [address] Dr. Zafar Branham LIPID PROFILEon 02-09-2023 CHOL-HDL RATIO NORM SEE BELOW Normal [facility] Comment on above: Result Comment: 3.3 - 4.4 LOW RISK 4.4 - 7.1 AVERAGE RISK 7.1 - 11.0 MODERATE RISK >11.0 HIGH RISK Performed By: #### C RP, CMP, TSH, LIPID ####[facility] [address] [place] [id number]. Kathytere Branham Cholesterol [Mass/Vol] 230 mg/dL Critically high <=200 [facility] Comment on above: Performed By: #### C RP, CMP, TSH, LIPID ####[facility] [address] [place] [id number]. Zafar Branham Cholesterol in HDL [Mass/Vol] 71 mg/dL Critically high 40-60 [facility] Comment on above: Performed By: #### C RP, CMP, TSH, LIPID ####[facility] [address] [place], [place] [address]Sg. Zafar Branham Cholesterol in LDL [Mass/Vol] 139.4 mg/dL Normal [facility] Comment on above: Performed By: #### C RP, CMP, TSH, LIPID ####[facility] [address] [place], [place] [address]Kb. Zafar Branham Cholesterol.total/C holesterol in HDL [Mass ratio] 3.2 {ratio} Normal [facility] Comment on above: Performed By: #### C RP, CMP, TSH, LIPID ####[facility] [address] [place], [place] [address]Yz. Kathylan Branham HDL NORMAL > or = 60 mg/dl - LO W CARDIOVASCULAR RISK <40 mg/dl - HIGH CARDIOVASCULAR RISK Normal [facility] Comment on above: Performed By: #### C RP, CMP, TSH, LIPID ####[facility] [address] [place], [place] [address]Iu. Zafar Branham LDL CALC NORMAL SEE BELOW Normal [facility] Comment on above: Result Comment: <100 mg/dl OPTIMAL 100 - 129 mg/dl NEAR OR ABOVE OPTIMAL 130 - 159 mg/dl BORDERLINE HIGH 160 - 189 mg/dl HIGH >190 mg/dl VERY HIGH Performed By: #### C RP, CMP, TSH, LIPID ####[facility] [address] [place], [place] [address]Fz. Zafar Branham Triglyceride [Mass/Vol] 98 mg/dL Normal <=150 [facility] Comment on above: Performed By: #### C RP, CMP, TSH, LIPID ####[facility] [address] [place] [id number]. Zafar Branham VLDL CALC 19.6 mg/dL Normal [facility] Comment on above: Performed By: #### C RP, CMP, TSH, LIPID ####[facility] [address] [place] [id number] Branham URon 02-09-2023 , QUAL Negative Normal NEGATIVE [facility] Comment on above: Performed By: #### U AMIC, PREGU #### [facility] [address] [place] [address] [address] Zafar Branham PROF 14(COMP METB)on 023 Albumin [Mass/Vol] 4.0 g/dL Normal 3.4-5.0 [facility] Comment on above: Performed By: #### C RP, CMP, TSH, LIPID #### [facility] [address] [place] [address] [address] Zafar Branham Albumin/Globulin [Mass ratio] 0.9 {ratio} Normal [facility] Comment on above: Performed By: #### C RP, CMP, TSH, LIPID #### [facility] [address] [place] [address] [address] Zafar Branham ALP [Catalytic activity/Vol] 94 U/L Normal 46-116 [facility] Comment on above: Performed By: #### C RP, CMP, TSH, LIPID #### [facility] [address] [place] [address] [address] Zafar Branham ALT [Catalytic activity/Vol] 30 U/L Normal 14-59 [facility] Comment on above: Performed By: #### C RP, CMP, TSH, LIPID #### [facility] [address] [place] [address] [address] Zafar Branham Anion gap [Moles/Vol] 13.6 mmol/L Normal [facility] Comment on above: Performed By: #### C RP, CMP, TSH, LIPID #### [facility] [address] [place] [address] [address] Zafar Branham AST [Catalytic activity/Vol] 23 U/L Normal 15-37 [facility] Comment on above: Performed By: #### C RP, CMP, TSH, LIPID #### [facility] [address] [place] [address] Dr. Zafar Branham Bilirubin [Mass/Vol] 0.3 mg/dL Normal 0.2-1.0 [facility] Comment on above: Performed By: #### C RP, CMP, TSH, LIPID #### [facility] [address] [place] [address] [address] Zafar Branham Calcium [Mass/Vol] 9.7 mg/dL Normal 8.5-10.1 [facility] Comment on above: Performed By: #### C RP, CMP, TSH, LIPID #### [facility] [address] [place] [address] [address] Zafar Branham Chloride [Moles/Vol] 100 mmol/L Normal 98-107 [facility] Comment on above: Performed By: #### C RP, CMP, TSH, LIPID #### [facility] [address] [place] [address] [address] Zafar Branham CO2 [Moles/Vol] 26.6 mmol/L Normal 21.0-32.0 [facility] Comment on above: Performed By: #### C RP, CMP, TSH, LIPID #### [facility] [address] [place] [address] [address] Zafar Branham Creatinine [Mass/Vol] 1.00 mg/dL Normal 0.55-1.02 [facility] Comment on above: Performed By: #### C RP, CMP, TSH, LIPID #### [facility] [address] [place] [address] [address] Zafar Branham EGFR-AF URUGUAYAN >60 Normal >=60 [facility] Comment on above: Performed By: #### C RP, CMP, TSH, LIPID #### [facility] [address] [place] [address] [address] Zafar Branham EGFR-NON AF URUGUAYAN >60 Normal >=60 [facility] Comment on above: Performed By: #### C RP, CMP, TSH, LIPID #### [facility] [address] [place] [address] Dr. Zafar Branham Globulin (S) [Mass/Vol] 4.5 g/dL Normal [facility] Comment on above: Performed By: #### C RP, CMP, TSH, LIPID #### [facility] [address] [place] [address] Dr. Zafar Branham Glucose [Mass/Vol] 93 mg/dL Normal 74-106 [facility] Comment on above: Performed By: #### C RP, CMP, TSH, LIPID #### [facility] [address] [place] [address] Dr. Zafar Branham Potassium [Moles/Vol] 4.2 mmol/L Normal 3.5-5.1 [facility] Comment on above: Performed By: #### C RP, CMP, TSH, LIPID #### [facility] [address] [place] [address] Dr. Zafar Branham Protein [Mass/Vol] 8.5 g/dL Critically high 6.4-8.2 [facility] Comment on above: Performed By: #### C RP, CMP, TSH, LIPID #### [facility] [address] [place] [address] Dr. Zafar Branham Sodium [Moles/Vol] 136 mmol/L Normal 136-145 [facility] Comment on above: Performed By: #### C RP, CMP, TSH, LIPID #### [facility] [address] [address] [address] Zafar Branham Urea nitrogen [Mass/Vol] 10.0 mg/dL Normal 7.0-18.0 [facility] Comment on above: Performed By: #### C RP, CMP, TSH, LIPID #### [facility] [address] [address] [address] Zafar Branham Urea nitrogen/Creatinine [Mass ratio] 10.0 mg/mg Normal [facility] Comment on above: Performed By: #### C RP, CMP, TSH, LIPID #### [facility] [address] [address] [address] Zafar Branham SED RATE [facility] 2022 SED RATE 49 mm/hr Critically high <=20 [facility] Comment on above: Performed By: #### S EDR ####[facility] [id number] [address]Dr. Zafar Branham TSHon 02-09-2023 TSH 0.590 uIU/mL Normal 0.358-3.740 [facility] Comment on above: Performed By: #### C RP, CMP, TSH, LIPID #### [facility] [address] [address] [address] Zafar Branham UA RANDOM W/MICROSCOPICon BACTERIA NONE SEEN Normal NONE SEEN [facility] Comment on above: Performed By: #### U AMIC, PREGU #### [facility] [address] [address] [address] Zafar Branham Bilirubin Ql (U) Negative Normal NEGATIVE [facility] Comment on above: Performed By: #### U AMIC, PREGU #### [facility] [address] [address] [address] Zafar Branham CAST NONE SEEN Normal NONE SEEN [facility] Comment on above: Performed By: #### U AMIC, PREGU #### [facility] [address] [address] [address] Zafar Branham Clarity (U) CLEAR Normal CLEAR The [facility] Comment on above: Performed By: #### U AMIC, PREGU #### [facility] [address] [address] [address] Zafar Branham Color (U) LT. YELLOW Normal YELLOW The [facility] Comment on above: Performed By: #### U AMIC, PREGU #### [facility] [address] [address] [address] Zafar Branham Crystals LM Nom (Urine sed) NONE SEEN Normal NONE SEEN [facility] Comment on above: Performed By: #### U AMIC, PREGU #### [facility] [address] [address] [address] Zafar Branham Epithelial cells LM Ql (Urine sed) FEW Abnormal NONE SEEN /RARE The [facility] Comment on above: Performed By: #### U AMIC, PREGU #### [facility] [address] [address] [address] Zafar Branham Glucose Ql (U) Negative Normal NEGATIVE [facility] Comment on above: Performed By: #### U AMIC, PREGU #### [facility] [address] [address] [address] Zafar Branham Hemoglobin Ql (U) SMALL Abnormal NEGATIVE [facility] Comment on above: Performed By: #### U AMIC, PREGU #### [facility] [address] [address] [address] Zaafr Branham Ketones Ql (U) Negative Normal NEGATIVE [facility] Comment on above: Performed By: #### U AMIC, PREGU #### [facility] [address] [address] [address] Zafar Branham LEUKOCYTES Negative Normal NEGATIVE The [facility] Comment on above: Performed By: #### U AMIC, PREGU #### [facility] [address] [address] [address] Zafar Branham MUCOUS NONE SEEN Normal NONE SEEN [facility] Comment on above: Performed By: #### U AMIC, PREGU #### [facility] [address] [address] [address] Zafar Branham Nitrite Ql (U) Negative Normal NEGATIVE [facility] Comment on above: Performed By: #### U AMIC, PREGU #### [facility] [address] [address] [address] Zafar Branham pH (U) 6.0 [pH] Normal 5-9 [facility] Comment on above: Performed By: #### U AMIC, PREGU #### [facility] [address] [address] [address] Zafar Branham RBC 0-2 Normal 0-2 The [facility] Comment on above: Performed By: #### U AMIC, PREGU #### [facility] [address] [address] [address] Zafar Branham SPEC GRAVITY <=1.005 Abnormal 1.005-<=1.025 [facility] Comment on above: Performed By: #### U AMIC, PREGU #### [facility] [address] [address] [address] Zafar Branham UA PROTEIN Negative Normal NEGATIVE/ TRACE The [facility] Comment on above: Performed By: #### U AMIC, PREGU #### [facility] [address] [address] [address] Zafar Branham Urobilinogen Qn (U) 0.2 {Ramy'U}/dL Normal 0.2 - 1. 0 [facility] Comment on above: Performed By: #### U AMIC, PREGU #### [facility] [address] [address] [address] Zafar Branham WBC NONE SEEN Normal NONE SEEN The [facility] Comment on above: Performed By: #### U AMIC, PREGU #### [facility] [address] [address] [address] Zafar Branham XR knee RT 4V*on 02-07-2023 XR knee RT 4V* [facility] [employer] Other XR knee RT 4V* [facility] [employer] Other XR knee RT 4V* [address] [place] [address] [employer] Other XR knee RT 4V* [place] [address] No rt [employer] Other XR knee RT 4V* XRay Report [employer] Other XR knee RT 4V* Signed [employer] Other XR knee RT 4V* Patient: Vy Mckeon MR#: [id number] [employer] Other XR knee RT 4V* 5 [employer] Other XR knee RT 4V* : 1990 Acct:[id number] [employer] Other XR knee RT 4V* Age/Sex: 32 / F ADM Date: 02/07/23 [employer] Other XR knee RT 4V* Loc: XDUCLY Room: Type: REG I [employer] Other XR knee RT 4V* Attending Dr: Shayla DENNEY [employer] Other XR knee RT 4V* Copies to: JUMANA Christianson [employer] Other XR knee RT 4V* Ordering Provider: JUMANA Chritsianson [employer] Other XR knee RT 4V* Date of Service: 02/07/23 [employer] Other XR knee RT 4V* XR/XR knee RT 4V*: RIGHT KNEE PAIN [employer] Other XR knee RT 4V* RIGHT KNEE - 4 views [employer] Other XR knee RT 4V* COMPARISON: None [place] [employer] Other XR knee RT 4V* CLINICAL DATA: Patient fell last night and landed on right anterior knee. Pain, swelling and [employer] Other XR knee RT 4V* abrasions. [employer] Other XR knee RT 4V* AP, lateral and both oblique views were obtained. There is no fracture or dislocation. There is no [employer] Other XR knee RT 4V* significant knee effusion or focal soft tissue swelling. [employer] Other XR knee RT 4V* XR/XR knee RT 4V* [employer] Other XR knee RT 4V* IMPRESSION: [employer] Other XR knee RT 4V* NO ACUTE BONY INJURY. [employer] Other XR knee RT 4V* Impression dictated by: Rama Garsia M.D.02/07/2023 10:01 AM [employer] Other XR knee RT 4V* Dictation Location: [facility]-10 [employer] Other XR knee RT 4V* Transcribed By: PWS 02/07/23 1001 [employer] Other XR knee RT 4V* Dictated By: Rama Garsia MD 02/07/23 1000 [employer] Other XR knee RT 4V* Signed By: [employer] Other XR knee RT 4V* 02/07/23 1001 [employer] Other XR knee RT 4V* [facility] [place] [address] [place] [address] XRay Report Signed Patient: Vy Mckeon MR#: [id number] 5 : 1990 Acct:[id number] Age/Sex: 32 / F ADM Date: 02/07/23 Loc: XDUCLY Room: Type: [facility] Attending Dr: Shayla DENNEY Copies [...] Rama Garsia M.D.02/07/2023 10:01 AM [employer]ict[employer] Location: [facility]--10 Transcribed By: [facility] 02/07/23 1001 Dictated By: Rama Garsia MD 02/07/23 1000 Signed By: 02/07/23 1001 [facility] XR HIPS KARELY 5V W PELVISon [...] JO-ANN CHACON Date: 2022-12-17 13:04 Normal The [facility] PREG QUANT HCGon 07-04-2022 HCG QUANT 1 mIU/mL Normal The [facility] Comment on above: Performed By: #### P REGQNT #### [facility] [address] [place] [address] Dr. Zafar Branham HCG RANGE SEE BELOW Normal The [facility] Comment on above: Result Comment: 5-50 0.2-1 WEEK 50-500 1-2 WEEKS 100-5,000 2-3 WEEKS 500-10,000 3-4 WEEKS 1,000-50,000 4-5 WEEKS 10,000-100,000 5-6 WEEKS 15,000-200,000 6-8 WEEKS 10,000-100,000 2-3 MONTHS Performed By: #### P REGQNT #### [facility] [address] [address] [address] Zafar Branham PREG QUANT HCGon 06-08-2022 HCG QUANT 16 mIU/mL Normal The [facility] Comment on above: Performed By: #### P REGQNT ####[facility] [id number] [address]Dr. Zafar Branham HCG RANGE SEE BELOW Normal The [facility] Comment on above: Result Comment: 5-50 0.2-1 WEEK 50-500 1-2 WEEKS 100-5,000 2-3 WEEKS 500-10,000 3-4 WEEKS 1,000-50,000 4-5 WEEKS 10,000-100,000 5-6 WEEKS 15,000-200,000 6-8 WEEKS 10,000-100,000 2-3 MONTHS Performed By: #### P REGQNT ####[facility] [id number] [address]Dr. Zafar Branham CBC AUTO DIFFon 05-23-2022 BASO # 0.0 103/ul Normal 0.0-0.1 [facility] Comment on above: Performed By: #### C BC #### [facility] [address] [place] [address] Dr. Zafar Branham Basophils/100 WBC (Bld) 0.6 % Normal 0.2-2.0 [facility] Comment on above: Performed By: #### C BC #### [facility] [address] [place] [address] Dr. Zafar Branham EO # 0.3 103/ul Normal 0.0-0.7 [facility] Comment on above: Performed By: #### C BC #### [facility] [address] [place] [address] Dr. Zafar Branham Eosinophils/100 WBC (Bld) 6.5 % Normal 0.9-7.0 [facility] Comment on above: Performed By: #### C BC #### [facility] [address] [place] [address] Dr. Zafar Branham Erythrocyte distribution width (RBC) [Ratio] 12.5 % Normal 11.0-15.0 [facility] Comment on above: Performed By: #### C BC #### [facility] [address] [place] [address] Dr. Zafar Branham Hematocrit (Bld) [Volume fraction] 37.2 % Normal 36.0-48.0 [facility] Comment on above: Performed By: #### C BC #### [facility] [address] [place] [address] Dr. Zafar Branham Hemoglobin (Bld) [Mass/Vol] 12.1 g/dL Normal 12.0-16.0 [facility] Comment on above: Performed By: #### C BC #### [facility] [address] [place] [address] Dr. Zafar Branham IG # 0.01 10e3/ul Normal 0.00-0.03 [facility] Comment on above: Performed By: #### C BC #### [facility] [address] [place] [address] Dr. Zafar Branham IG % 0.2 % Normal 0.0-0.5 [facility] Comment on above: Performed By: #### C BC #### [facility] [address] [place] [address] Dr. Zafar Branham LYMPH # 1.5 103/ul Normal 1.2-3.8 [facility] Comment on above: Performed By: #### C BC #### [facility] [address] [place] [address] Dr. Zafar Branham Lymphocytes/100 WBC (Bld) 29.8 % Normal 20.5-60.0 [facility] Comment on above: Performed By: #### C BC #### [facility] [address] [place] [address] Dr. Zafar Branham MANUAL DIFF REQ NO Normal [facility] Comment on above: Performed By: #### C BC #### [facility] [address] [place] [address] Dr. Zafar Branham MCH (RBC) [Entitic mass] 29.1 pg Normal 26.7-34.0 [facility] Comment on above: Performed By: #### C BC #### [facility] [address] [address] [address] Zafar Branham MCHC (RBC) [Mass/Vol] 32.5 g/dL Normal 29.9-35.2 [facility] Comment on above: Performed By: #### C BC #### [facility] [address] [place] [address] Dr. Zafar Branham MCV (RBC) [Entitic vol] 89.4 fL Normal 81.0-99.0 [facility] Comment on above: Performed By: #### C BC #### [facility] [address] [place] [address] Dr. Zafar Branham MONO # 0.4 103/ul Normal 0.3-0.8 [facility] Comment on above: Performed By: #### C BC #### [facility] [address] [place] [address] Dr. Zafar Branham Monocytes/100 WBC (Bld) 7.9 % Normal 1.7-12.0 [facility] Comment on above: Performed By: #### C BC #### [facility] [address] [place] [address] Dr. Zafar Branham NEUT # 2.7 103/ul Normal 1.4-6.5 [facility] Comment on above: Performed By: #### C BC #### [facility] [address] [place] [address] Dr. Zafar Branham Neutrophils/100 WBC (Bld) 55.0 % Normal 43.0-75.0 [facility] Comment on above: Performed By: #### C BC #### [facility] [address] [place] [address] Dr. Zafar Branham Platelet mean volume (Bld) [Entitic vol] 10.0 fL Normal 9.5-13.5 [facility] Comment on above: Performed By: #### C BC #### [facility] [address] [place] [address] Dr. Zafar Branham PLT 229 103/ul Normal 150-450 [facility] Comment on above: Performed By: #### C BC #### [facility] [address] [address] [address] Zafar Branham RBC 4.16 106/ul Critically low 4.20-5.40 [facility] Comment on above: Performed By: #### C BC #### [facility] [address] [address] [address] Zafar Branham WBC 5.0 103/ul Normal 4.0-11.0 [facility] Comment on above: Performed By: #### C BC #### [facility] [address] [address] [address] Zafar Branham TYPE AND SCREENon 05-23-2022 TYPE AND SCREEN Negative Normal [facility] Comment on above: Performed By: #### T NS ####[facility] [id number] [address]Dr. Zafar Branham Covid-19 PCR (CVDTBH)on 05-01 SARS-CoV-2 (COVID-19) RNA MANOLO+probe Ql (Unsp spec) Not detected Normal NOT DETECTED [facility] Comment on above: Result Comment: This test is not yet approved or cleared by the [place] FDA. When there are no FDA-approved or cleared tests available, and other criteria are met, FDA can make tests available under an emergency access mechanism called an Emergency Use Authorization (EUA). The EUA for this test is supported by the [place] of Health and Human Service's (HHS's) declaration [...] SARS-CoV-2. Performed By: #### C VDTBH #### [facility] [address] [address] [address] Zafar Branham US PREG TVon 05-18-2022 [...] by: BOBBI SIMONS Date: 2022-05-18 19:25 Normal [facility] US PREG TVon 05-03-2022 US PREG [...] by: BOBBI SIMONS Date: 2022-05-03 16:32 Normal [facility] Chlamydia/GC DNA, TPon 05-05 Chlamydia Probe, TP Negative Normal [facility] Comment on above: Result Comment: CHLA [...] target. Performed By: #### C YTCGP #### [address] [id number] Director Recreation: King Boone MD Gonorrhea Probe, TP Negative Normal [facility] Comment on above: Result Comment: NEIS [...] target. Performed By: #### C YTCGP #### [address] [id number] Director Recreation: King Boone MD HPV DNA High Riskon 05-05-20 20 HPV Interp Normal [facility] Comment on above: Result Comment: This [...] purposes. Performed By: #### H PVH #### [facility] [employer] [address] [place] [address] [id number] Director Recreation: King Boone MD HPV Type 16 Not Detected Normal NOTDET [facility] Comment on above: Performed By: #### H PVH #### [employer] [address] [place] [address] Director Recreation: King Boone MD HPV Type 18 Not Detected Normal [facility] Comment on above: Performed By: #### H PVH #### [facility] [address] [place] [address] Director Recreation: King Boone MD Other High Risk HPV Not Detected Normal [facility] Comment on above: Performed By: #### H PVH #### [address] [address] Director Recreation: King Boone MD HPV Sample .THIN PREP Normal [facility] Comment on above: Performed By: #### H PVH #### [address] [id number] Director Recreation: King Boone MD Source .ENDOCERVIX Normal [facility] Comment on above: Performed By: #### H PVH #### [address] [address] Director Recreation: King Boone MD Otheron 05-04-2020 Direct Exam Negative [place], [place] VAGINITIS DNA PROBEon 2019 Direct Exam Positive Abnormal [place] Direct Exam Method of testing is a DNA probe intended for detection and identification of Diane species, Gardnerella vaginalis, and Trichomonas vaginalis nucleic acid in vaginal fluid specimens from patients with symptoms of vaginitis/vaginosis. [place] Interpretation and review of laboratory results Abnormal [place] Special Requests NOT REPORTED [place] Specimen Description .VAGINAL SWAB [place] Vaginitis DNA Probeon 2019 Vaginitis DNA [...] of vaginitis/vaginosis. Report Status FINAL 05/04/2020 Normal [facility] Comment on above: Performed By: #### V AGDNA #### [employer] [address] [place] [address] Director Recreation: King Boone MD Cytologyon 05-03-2020 Cytology (NOTE) INTERPRETATION Endocervical material, (Thin prep vial, Imaging-assisted review): Specimen Adequacy: Satisfactory for evaluation. - Endocervical/transfor mation zone component present. Descriptive Diagnosis: Negative for intraepithelial lesion or malignancy. Shift in ray suggestive of bacterial vaginosis. Comments: High Risk HPV testing was ordered. Post Graduate Intern: JAYLIN Higgins(ASCP) Electronically Signed Out ana/05/07/2020 Procedure/Addendum [...] GYNECOLOGIC CYTOLOGY REPORT Patient Name: VY MCKEON [facility] Rec: [id number] Path Number: [id number] [employer] [facility] ANATOMIC PATHOLOGY [address] [place], [place] [id number] [facility] Comment on above: Performed By: #### P PPVP #### [employer] [address] [place] [address] [id number] Director Recreation: King Boone MD Vital Signs Date Time Vital Sign Value Performing Clinician Facility 01-21-2024 11:59-0400 Body height 170.2 cm Ana Peoples MD Work Phone: [facility] 01-21-2024 11:59-0400 Body mass index (BMI) [Ratio] 30.07 kg/m2 Ana Peoples MD Work Phone: [facility] 01-21-2024 11:59-0400 Body weight 87.1 kg Ana Peoples MD Work Phone: [facility] 01-21-2024 11:59-0400 Diastolic blood pressure 75 mm[Hg] Ana Peoples MD Work Phone: [facility] 01-21-2024 11:59-0400 Heart rate 108 /min Ana Peoples MD Work Phone: [facility] 01-21-2024 11:59-0400 Systolic blood pressure 125 mm[Hg] Ana Peoples MD Work Phone: [facility] 01-21-2024 11:02-0400 Body height 170.2 cm Ana Peoples MD Work Phone: [facility] 01-21-2024 11:02-0400 Body mass index (BMI) [Ratio] 30.07 kg/m2 Ana Peoples MD Work Phone: [facility] 01-21-2024 11:02-0400 Body weight 87.09 kg Ana Peoples MD Work Phone: [facility] 01-04-2024 14:31-0400 Body temperature 97.11 [degF] Fransico Sharp MD Work Phone: [facility] 01-04-2024 14:31-0400 Diastolic blood pressure 83 mm[Hg] Fransico Sharp MD Work Phone: [facility] 01-04-2024 14:31-0400 Heart rate 94 /min Fransico Sharp MD Work Phone: [facility] 01-04-2024 14:31-0400 Respiratory rate 20 /min Fransico Sharp MD Work Phone: [facility] 01-04-2024 14:31-0400 SaO2% (BldA) [Mass fraction] 99 % Fransico Sharp MD Work Phone: [facility] 01-04-2024 14:31-0400 Systolic blood pressure 148 mm[Hg] Fransico Sharp MD Work Phone: [facility] 12-17-2023 13:42-0400 Body height 170.2 cm Freddie Delgado [employer]LECT[employer]ICIAN MAINTENA[employer]CE[employer]ING [employer]ER Work Phone: [facility] 12-17-2023 13:42-0400 Body mass index (BMI) [Ratio] 29.47 kg/m2 Freddie Delgado ELECTRICIAN MAINTENANCE-DINING ROOM SERVER Work Phone: [facility] 12-17-2023 13:42-0400 Body temperature 98.71 [degF] Freddie Delgado ELECTRICIAN MAINTENANCE-DINING ROOM SERVER Work Phone: [facility] 12-17-2023 13:42-0400 Body weight 85.37 kg Freddie Delgado ELECTRICIAN MAINTENANCE-DINING ROOM SERVER Work Phone: [facility] 12-17-2023 13:42-0400 Diastolic blood pressure 80 mm[Hg] Freddie Delgado ELECTRICIAN MAINTENANCE-DINING ROOM SERVER Work Phone: [facility] 12-17-2023 13:42-0400 Heart rate 86 /min Freddie Delgado ELECTRICIAN MAINTENANCE[employer]DINING ROOM SERVER Work Phone: [facility] 12-17-2023 13:42-0400 SaO2% (BldA) [Mass fraction] 96 % Freddie Delgado ELECTRICIAN MAINTENANCE[employer]DINING ROOM SERVER Work Phone: [facility] 12-17-2023 13:42-0400 Systolic blood pressure 128 mm[Hg] Freddie Delgado ELECTRICIAN MAINTENANCE[employer]DINING ROOM SERVER Work Phone: [facility] 11-12-2023 13:13-0500 Body mass index (BMI) [Ratio] 28.47 kg/m2 Dionne Xiao PA Work Phone: [facility] [employer] 11-12-2023 13:13-0500 Body weight 82.46 kg Dionne Xiao PA Work Phone: [facility] [employer] 11-12-2023 13:13-0500 Diastolic blood pressure 72 mm[Hg] Dionne Maciasey PA Work Phone: [facility] [employer] 11-12-2023 13:13-0500 Systolic blood pressure 114 mm[Hg] Dionne Maciasey PA Work Phone: [facility] [employer] 05-29-2023 13:25-0400 Body height 170.18 cm Shayla Valle Other [employer] Other 05-29-2023 13:25-0400 Body mass index (BMI) [Ratio] 28.22 kg/m2 Shayla Valle Other [employer] Other 05-29-2023 13:25-0400 Body temperature 97.8 [degF] Shalya Valle Other [employer] Other 05-29-2023 13:25-0400 Body weight 81.74 kg Shayla Valle Other [employer] Other 05-29-2023 13:25-0400 Diastolic blood pressure 79 mm[Hg] Shayla Valle Other [employer] Other 05-29-2023 13:25-0400 Respiratory rate 18 /min Shayla Tori Other [employer] Other 05-29-2023 13:25-0400 SaO2% (BldA) [Mass fraction] 96 % Shayla Tori Other [employer] Other 05-29-2023 13:25-0400 Systolic blood pressure 127 mm[Hg] Shayla Tori Other [employer] Other 03-19-2023 14:37-0400 Diastolic blood pressure 69 mm[Hg] [employer] Shayla Tori Work Phone: [facility] 03-19-2023 14:37-0400 Heart rate 76 /min [employer] Shayla Tori Work Phone: [facility] 03-19-2023 14:37-0400 Respiratory rate 16 /min [employer] Shayla Tori Work Phone: [facility] 03-19-2023 14:37-0400 SaO2% (BldA) [Mass fraction] 96 % [employer] Shayla Tori Work Phone: [facility] 03-19-2023 14:37-0400 Systolic blood pressure 119 mm[Hg] [employer] Shayla Tori Work Phone: [facility] 03-19-2023 12:18-0400 Body height 170.18 cm [employer] Shayla Tori Work Phone: [facility] 03-19-2023 12:18-0400 Body temperature 97.9 [degF] [employer] Shayla Tori Work Phone: [facility] 03-19-2023 12:18-0400 Body weight 84.82 kg [employer] Shayla Tori Work Phone: [facility] 02-12-2023 14:30-0400 Body height 170.18 cm Yoel Kolby Other [employer] Other 02-12-2023 14:30-0400 Body mass index (BMI) [Ratio] 30.54 kg/m2 Yoel Scovanner Other [employer] Other 02-12-2023 14:30-0400 Body weight 88.45 kg Yoel Scdonna Other [employer] Other 02-12-2023 14:30-0400 Diastolic blood pressure 80 mm[Hg] Yoel Scovanner Other [employer] Other 02-12-2023 14:30-0400 Systolic blood pressure 127 mm[Hg] Yoel Scovanner Other [employer] Other 02-07-2023 10:00-0400 Body height 170.18 cm Shayla Tori Other [employer] Other 02-07-2023 10:00-0400 Body mass index (BMI) [Ratio] 30.54 kg/m2 Shayla Valle Other [employer] Other 02-07-2023 10:00-0400 Body temperature 97.9 [degF] Shayla Tori Other [employer] Other 02-07-2023 10:00-0400 Body weight 88.45 kg Shayla Valle Other [employer] Other 02-07-2023 10:00-0400 Respiratory rate 18 /min Shayla Valle Other [employer] Other 02-07-2023 10:00-0400 SaO2% (BldA) [Mass fraction] 97 % Shayla Valle Other [employer] Other 05-03-2020 11:41-0400 BMI (Body Mass Index) 24.5 kg/m2 [facility] Work Phone: 05-03-2020 11:41-0400 Body Temperature 96.3 [degF] [facility] Work Phone: 05-03-2020 11:41-0400 Body weight 70.9 kg [facility] Work Phone: 05-03-2020 11:41-0400 BP Diastolic 80 mm[Hg] [facility] Work Phone: 05-03-2020 11:41-0400 BP Systolic 120 mm[Hg] [facility] Work Phone: 05-03-2020 11:41-0400 BSA (Body Surface Area) 1.82 m2 [facility] Work Phone: 05-03-2020 11:41-0400 Height 170.18 cm [facility] Work Phone: 05-03-2020 11:41-0400 Pulse (Heart Rate) 86 /min [facility] Work Phone: 05-03-2020 11:41-0400 Pulse Oximetry 93 % [facility] Work Phone: 05-03-2020 11:41-0400 Respiratory Rate 18 /min [facility] Work Phone: 04-08-2020 08:37-0400 BMI (Body Mass Index) 24.3 kg/m2 [facility] Work Phone: 04-08-2020 08:37-0400 Body Temperature 99 [degF] [facility] Work Phone: 04-08-2020 08:37-0400 Body weight 70.4 kg [facility] Work Phone: 04-08-2020 08:37-0400 BP Diastolic 80 mm[Hg] [facility] Work Phone: 04-08-2020 08:37-0400 BP Systolic 110 mm[Hg] [facility] Work Phone: 04-08-2020 08:37-0400 BSA (Body Surface Area) 1.82 m2 [facility] Work Phone: 04-08-2020 08:37-0400 Height 170.18 cm [facility] Work Phone: 04-08-2020 08:37-0400 Pulse (Heart Rate) 82 /min [facility] Work Phone: 04-08-2020 08:37-0400 Pulse Oximetry 98 % [facility] Work Phone: 04-08-2020 08:37-0400 Respiratory Rate 18 /min [facility] Work Phone: 03-29-2020 09:52-0400 Body height 170.18 cm [facility] Work Phone: [facility] Work Phone: Comment on above: self 03-29-2020 09:52-0400 Body mass index (BMI) [Ratio] 23.5 kg/m2 [facility] Work Phone: [facility] Work Phone: Comment on above: self 03-29-2020 09:52-0400 Body surface area Derived from formula 1.79 m2 Sally Morejon D[employer]ING ROOM SERVER Work Phone: [facility] Work Phone: Comment on above: self 03-29-2020 09:52-0400 Body weight 68.04 kg Sally Morejon D[employer]ING ROOM SERVER Work Phone: [facility] Work Phone: Comment on above: self 10-14-2019 08:30-0500 BMI (Body Mass Index) 24.1 kg/m2 [facility] Work Phone: 10-14-2019 08:30-0500 Body Temperature 98.5 [degF] [facility] Work Phone: 10-14-2019 08:30-0500 Body weight 69.76 kg [facility] Work Phone: 10-14-2019 08:30-0500 BP Diastolic 78 mm[Hg] [facility] Work Phone: 10-14-2019 08:30-0500 BP Systolic 132 mm[Hg] [facility] Work Phone: 10-14-2019 08:30-0500 BSA (Body Surface Area) 1.81 m2 [facility] Work Phone: 10-14-2019 08:30-0500 Height 170.18 cm [facility] Work Phone: 10-14-2019 08:30-0500 Pulse (Heart Rate) 88 /min [facility] Work Phone: 10-14-2019 08:30-0500 Pulse Oximetry 98 % [facility] Work Phone: 10-14-2019 08:30-0500 Respiratory Rate 18 /min [facility] Work Phone: 10-14-2019 08:30-0500 SaO2% (BldA) [Mass fraction] 98 % Sally Morejon DINING ROOM SERVER Work Phone: [facility] Work Phone: 09-04-2019 13:52-0500 BMI (Body Mass Index) 22.9 kg/m2 [facility] Work Phone: 09-04-2019 13:52-0500 Body Temperature 98.5 [degF] Sally [facility] Work Phone: 09-04-2019 13:52-0500 Body weight 66.23 kg [facility] Work Phone: 09-04-2019 13:52-0500 BP Diastolic 90 mm[Hg] [facility] Work Phone: 09-04-2019 13:52-0500 BP Systolic 122 mm[Hg] [facility] Work Phone: 09-04-2019 13:52-0500 BSA (Body Surface Area) 1.77 m2 [facility] Work Phone: 09-04-2019 13:52-0500 Height 170.18 cm [facility] Work Phone: 09-04-2019 13:52-0500 Pulse (Heart Rate) 98 /min [facility] Work Phone: 09-04-2019 13:52-0500 Pulse Oximetry 98 % [facility] Work Phone: 09-04-2019 13:52-0500 Respiratory Rate 18 /min [facility] Work Phone: 09-04-2019 13:52-0500 SaO2% (BldA) [Mass fraction] 98 % Sally Morejon DINING ROOM SERVER Work Phone: [facility] Work Phone: 08-19-2019 09:32-0500 BMI (Body Mass Index) 23.2 kg/m2 [facility] Work Phone: 08-19-2019 09:32-0500 Body Temperature 98 [degF] [facility] Work Phone: 08-19-2019 09:32-0500 Body weight 67.31 kg [facility] Work Phone: 08-19-2019 09:32-0500 BP Diastolic 80 mm[Hg] [facility] Work Phone: 08-19-2019 09:32-0500 BP Systolic 120 mm[Hg] [facility] Work Phone: 08-19-2019 09:32-0500 BSA (Body Surface Area) 1.78 m2 [facility] Work Phone: 08-19-2019 09:32-0500 Height 170.18 cm [facility] Work Phone: 08-19-2019 09:32-0500 Pulse (Heart Rate) 90 /min [facility] Work Phone: 08-19-2019 09:32-0500 Pulse Oximetry 98 % [facility] Work Phone: 08-19-2019 09:32-0500 Respiratory Rate 18 /min [facility] Work Phone: 08-19-2019 09:32-0500 SaO2% (BldA) [Mass fraction] 98 % [facility] Work Phone: [facility] Work Phone: 07-28-2019 11:31-0400 BMI (Body Mass Index) 22.7 kg/m2 [facility] Work Phone: 07-28-2019 11:31-0400 Body Temperature 98.8 [degF] [facility] Work Phone: 07-28-2019 11:31-0400 Body weight 65.77 kg [facility] Work Phone: 07-28-2019 11:31-0400 BP Diastolic 84 mm[Hg] [facility] Work Phone: 07-28-2019 11:31-0400 BP Systolic 132 mm[Hg] [facility] Work Phone: 07-28-2019 11:31-0400 BSA (Body Surface Area) 1.76 m2 [facility] Work Phone: 07-28-2019 11:31-0400 Height 170.18 cm [facility] Work Phone: 07-28-2019 11:31-0400 Pulse (Heart Rate) 65 /min [facility] Work Phone: 07-28-2019 11:31-0400 Pulse Oximetry 97 % [facility] Work Phone: 07-28-2019 11:31-0400 Respiratory Rate 18 /min [facility] Work Phone: 07-28-2019 11:31-0400 SaO2% (BldA) [Mass fraction] 97 % [facility] Work Phone: [facility] Work Phone: Encounters Encounter Date Encounter Type Care Provider Facility Start: 03-04-2024 Telephone encounter Daisy Douglass Hematology/Oncology Comment on above: Results Start: 03-03-2024 ambulatory Ana ghotra MD Work Phone: Maternal Medicine Comment on above: delivery planning Start: 03-03-2024 E-mail encounter fro m caregiver Ana Peoples MD Work Phone: Maternal Medicine Start: 02-29-2024 Telephone encounter Fransico kulkarni MD Work Phone: Plastic Surgery Comment on above: Surgery Cancelled; A ppointment Start: 02-27-2024 End: 02-27-2024 ambulatory ELIAZAR NORMA Not Available Start: 02-26-2024 Telephone encounter Daisy Douglass Hematology/Oncology Comment on above: Results - Ct; Patien t Update Start: 02-22-2024 End: 02-22-2024 ambulatory FREDDIE CAMPOAL DELGADO Facility:[facility] Start: 02-20-2024 End: 02-20-2024 [facility] Start: 02-13-2024 End: 02-15-2024 ambulatory LUJAN [facility] Start: 02-11-2024 End: 02-11-2024 ambulatory ELIAZAR NORMA Not Available Start: 01-29-2024 End: 01-29-2024 ambulatory CANDACE MORAN [facility] Start: 01-28-2024 End: 01-28-2024 ambulatory DIONNE XIAO Not Available Start: 01-25-2024 Telephone encounter Fransico kulkarni MD Work Phone: Plastic Surgery Comment on above: Appointment Start: 01-25-2024 End: 01-26-2024 ambulatory [facility]ENCIO [facility] Start: 01-23-2024 ambulatory Usman [...] Start: 01-14-2024 End: 01-14-2024 ambulatory GURJIT ROBIN [facility] Start: 01-10-2024 Telephone encounter Historical [facility] Start: 01-09-2024 Telephone encounter Fransico kulkarni MD Work Phone: Plastic Surgery Start: 01-08-2024 End: 01-08-2024 ambulatory ELIAZAR CASTANEDA Not Available Start: 01-04-2024 End: 01-05-2024 ambulatory Fransico Sharp MD Work Phone: Plastic Surgery Comment on above: Malignant melanoma o f skin (HCC) (Primary Dx) Start: 01-04-2024 End: 01-05-2024 Patient encounter procedure Fransico Sharp MD Work Phone: [facility] Start: 12-26-2023 End: 12-27-2023 [facility] Start: 12-21-2023 Chart abstracting Usman rincon MD Work Phone: Hematology/Oncology Start: 12-17-2023 End: 12-17-2023 ambulatory [facility] Start: 12-17-2023 End: 12-17-2023 Office outpatient visit 10 minutes [facility] [employer]INTE[employer]CE-DINING ROOM SERVER Work Phone: [facility] Comment on above: Nausea and vomiting, unspecified vomiting type (Primary Dx); Psychophysiological insomnia Start: 12-10-2023 End: 12-10-2023 ambulatory ELIAZAR CASTANEDA Not Available Start: 12-07-2023 Documentation procedure Chris Anotnio [facility] Work Phone: Maternal- Medicine at [facility] Comment on above: Outgoing Ca ll Start: 11-20-2023 End: 11-21-2023 Orders Only Roshni Rodriguez RN [facility]aternal [facility] Comment on above: Placenta previa ante in second trimester (Primary Dx); Multigravida of advanced maternal age in second trimester Start: 11-20-2023 End: 11-20-2023 Office outpatient visit 15 minutes Fidencio Rojas MD Work Phone: Maternal Medicine [place] Comment on above: 20 weeks gestation o f (Primary Dx); Placenta previa antepartum in second trimester; Advanced maternal age in multigravida, second trimester Start: 11-13-2023 Orders Only Juan Ramon Rodríguez [employer] Mate rnal- Medicine at [facility] Comment on above: Multigravida of adva nced maternal age in second trimester; Family history of autism; Family history of mental disorder Start: 11-12-2023 End: 11-12-2023 ambulatory DIONNE XIAO Not Available Start: 11-12-2023 Documentation procedure Chris BLISS Work Phone: Maternal- Medicine at [facility] Comment on above: Outgoing Ca ll Start: [...] Antonio LC Work Phone: Maternal- Medicine at [facility] Comment on above: Incoming Ca ll Start: 10-23-2023 Orders Only Angeal Guzman [employer] Mat ernal- Medicine at [facility] Comment on above: Multigravida of adva nced maternal age in second trimester (Primary Dx); Family history of autism; Family history of mental disorder Start: 10-22-2023 End: 10-22-2023 ambulatory ELIAZAR R NORMA [facility] Start: 10-22-2023 End: 10-22-2023 Telemedicine consultation with patient Katarina Antonio [facility] Work Phone: Maternal- Medicine at [facility] Comment on above: Multigravida of adva nced maternal age in second trimester (Primary Dx); Family history of autism; Family history of mental disorder Start: 10-08-2023 End: 10-08-2023 ambulatory ELIAZAR NORMA Not Available Start: 08-30-2023 End: 08-30-2023 ambulatory ELIAZAR NORMA Not Available Start: 05-29-2023 End: 05-29-2023 ambulatory Shayla Valle Other [employer] Other Start: 05-29-2023 Office outpatient vi sit 15 minutes Shayla Valle [facility] Start: 03-19-2023 End: 03-19-2023 ambulatory NON STAFF Facility:[facility] Start: 03-19-2023 End: 03-19-2023 Admission to same day surgery center [employer] Shayla Valle Work Phone: [facility] Work Phone: Start: 03-19-2023 End: 03-19-2023 ambulatory NON STAFF [facility] Work Phone: Start: 02-12-2023 End: 02-12-2023 ambulatory Yoel Jarrett Other [employer] Other Start: 02-12-2023 Office outpatient ne w 30 minutes Yoel Jarrett [facility] Start: 02-09-2023 End: 02-10-2023 ambulatory DINING ROOM SERVER VITO [employer] Facility: Start: 02-07-2023 Office outpatient ne w 20 minutes Shayla Valle [facility] Start: 02-07-2023 End: 02-07-2023 ambulatory Shayla Valle [facility] Elpidio deleon [employer] Other Start: 02-07-2023 End: 02-07-2023 Patient encounter procedure [employer] Shayla Valle Work Phone: [facility] Work Phone: Start: 12-27-2022 ambulatory PRADEEP PADRON JARREDAntonBELTRANLissett Facil ity:[facility] Start: 12-16-2022 End: 12-17-2022 ambulatory PRADEEP PADRON JARREDAntonBELTRANLissett Facility:[facility] Start: 07-04-2022 End: 07-05-[address] ELIAZAR CASTANEDA . Facility:[facility] Start: 06-08-2022 End: 07-01-[address] ELIAZAR CASTANEDA . Facility:[facility] Start: 05-23-2022 End: 05-23-[address] ELIAZAR CASTANEDA . Facility:[facility] Start: 05-22-2022 Encounter for preprocedural laboratory examination DR ELIAZAR CASTANEDA . [facility] Start: 05-19-2022 End: 05-20-[address] ELIAZAR CASTANEDA . Facility:[facility] Start: 05-19-2022 End: 05-20-2022 Encounter for preprocedural laboratory examination DR ELIAZAR CASTANEDA . Facility:[facility] Start: 05-18-2022 End: 05-19-[address] ELIAZAR CASTANEDA . Facility:[facility] Start: 05-03-2022 End: 05-04-[address] ELIAZAR CASTANEDA . Facility:[facility] Start: 05-03-2020 End: 05-03-2020 ambulatory Candace Grossman Work Phone: [facility] Work Phone: Start: 05-03-2020 End: 05-04-2020 Patient encounter procedure CANDACE Gray [facility] Start: 05-03-2020 End: 05-03-2020 Subsequent hospital visit by physician ARMANI FRY [facility] Start: 04-08-2020 End: 04-08-2020 ambulatory Linnea Luz Work Phone: [facility] Work Phone: Start: 03-29-2020 End: 03-29-2020 General Emilee Sanford Work Phone: [facility] Work Phone: Start: 03-29-2020 End: 03-29-2020 Telemedicine consultation with patient Candace Grossman Work Phone: [facility] Work Phone: Start: 01-08-2020 End: 01-08-2020 Telemedicine consultation with patient Candace Grossman Work Phone: [facility] Work Phone: Start: 12-30-2019 End: 12-30-2019 Patient encounter procedure Emilee Sanford Work Phone: [facility] Work Phone: Start: 12-30-2019 End: 12-30-2019 Telemedicine consultation with patient Candace Grossman Work Phone: [facility] Work Phone: Start: 10-14-2019 End: 10-14-2019 Established patient Bobbi Colon Work Phone: [facility] Work Phone: Start: 09-04-2019 End: 09-04-2019 Established patient Bobbi Colon Work Phone: [facility] Work Phone: Start: 08-19-2019 End: 08-19-2019 Nursing evaluation of patient and report Candace Grossman Work Phone: [facility] Work Phone: Start: 07-28-2019 End: 07-28-2019 Established patient Bobbi Colon Work Phone: [facility] Work Phone: Start: 07-28-2019 End: 07-28-2019 New patient Candace Grossman Work Phone: [facility] Work Phone: Start: 08-13-2017 End: 08-14-2017 Ambulatory Upcynthia Marquis Facility:[facility] Procedures Date Procedure Procedure Detail Performing Clinician Start: 01-21-2024 Us preg uterus after 1st trimest 10/01 gestation Ana Peoples MD Work Phone: Start: 11-12-2023 Urnls dip stick/tabl et rgnt non-auto w/o micrscp Dionne BRAN Work Phone: Start: 11-12-2023 URETHRITIS/DISCHARGE PLUS VAGINITIS (HTRX) Dionne BRAN Work Phone: Start: 10-25-2023 UNLISTED LAB TEST Miriam Antonio [employer] Work Phone: Start: 09-10-2023 Adult depression scr eening assessment Katarina Antonio [employer] Work Phone: Start: 03-19-2023 Esophagogastroduodenoscopy [employer] Shayla Valle Work Phone: Start: 03-01-2023 Microscopic observat ion [Identifier] in Cervix by Cyto stain Dionne BRAN Work Phone: Start: 02-07-2023 X-ray of right knee [employer] Shayla Valle Work Phone: Start: 05-03-2020 Obtaining screen pap smear Candace Ngoc Work Phone: Start: 05-03-2020 Iaad ia chlamydia trachomatis CANDACE GROSSMAN Start: 05-03-2020 Iadna diane specie s direct probe tq CANDACE GROSSMAN Start: 05-03-2020 Iadna diane specie s direct probe tq Candace Castellano Ngoc Work Phone: Start: 05-03-2020 Microscopic observat ion [Identifier] in Cervix by Cyto stain Katarina Antonio [facility] Work Phone: Start: 04-08-2020 Diast bp 80-89 mm hg Eva Escobar Work Phone: Start: 04-08-2020 Etonogestrel implant system Linnea Escobar Work Phone: Start: 04-08-2020 Insj non-biodegradab le drug delivery implant Linnea Escobar Work Phone: Start: 04-08-2020 Lidocaine 2% with Ep inephrine INJ (Xylocaine W/Epi) Linnea Escobar Work Phone: Start: 04-08-2020 Syst bp lt 130 mm hg Eva Esocbar Work Phone: Start: 04-08-2020 Therapeutic prophyla ctic/dx [...] Syst bp ge 130 - 139mm hg Candacehalley Houstonen Work Phone: Start: 09-04-2019 Diast bp >/= 90 mm hg A max Ngoc Work Phone: Start: 09-04-2019 Psychotherapy w/howie ent 30 minutes Bobbi Colon Work Phone: Start: 09-04-2019 Pt-focused hlth risk assmt score doc stnd instrm Candacehalley Houstonen Work Phone: Start: 09-04-2019 Syst bp lt 130 mm hg monicodarshan Grossman Work Phone: Start: 08-19-2019 Urine test visual color cmprsn meths Candacehalley Houstonen Work Phone: Start: 07-28-2019 Alcohol consumption screening Audit Alcohol Use Disorders Identification Test ___(0-40) Candace Grossman DINING ROOM SERVER Work Phone: Start: 07-28-2019 ANXIETY DISORDER NOS [...] gaviota Morejon Start: 07-28-2019 Surgical procedure Chela john Jean-Pierre [...] RSV Vaccine (1 - 1-dose 60+ series) [facility] Start: 01-02-2034 Urine microalbumin profile DTaP,Tdap,Td Vaccine (7 - Td or Tdap) [facility] Start: 03-12-2028 Screening for malign ant neoplasm of cervix HPV/Cotest [facility] Start: 03-01-2028 Screening for malign ant neoplasm of cervix [facility] Start: 01-25-2028 DTaP,Tdap and Td Vaccines (6 - Td or Tdap) DTaP,Tdap and Td Vaccines (6 - Td or Tdap) [facility] Start: 01-25-2028 Urine microalbumin profile DTaP,Tdap,Td Vaccine (2 - Td or Tdap) [facility] Start: 12-16-2024 Adult BMI Screening Adult BMI Screen ing [facility] Start: 12-16-2024 Tobacco Screening Tobacco Screening [facility] Start: 10-23-2024 End: 10-23-2024 Unlisted Lab Test Unlisted Lab Test Lab Routine Multigravida of advanced maternal age in second trimester Family history of autism Family history of mental disorder Expected: 10/23/2024 (Approximate), Expires: 10/23/2024 [facility] Work Phone: Comment on above: Expected: 10/23/2024 (Approximate), Expires: 10/23/2024 Start: 09-10-2024 Adult BMI Screening Adult BMI Screen ing [facility] Start: 09-10-2024 Depression Screening Depression Scre ening [facility] Start: 09-10-2024 Tobacco Screening Tobacco Screening [facility] Start: 03-17-2024 End: 03-17-2024 Admission to same day surgery center 03/17/2024 11:30 AM EDT Visit (SP) Office Plastic Surgery [address] [place] [address] Tana Cervantes, ABHI.DINING ROOM SERVER [address] [place] [address] post op Plastic Surgery Comment on above: [...] 10:45 AM EDT Hospital Encounter Admitting [address] [place] [address] Fransico Sharp MD [address] [place] [address] Malignant melanoma of skin (HCC) [C43.9] Admitting Comment on above: Malignant melanoma o f skin (HCC) [C43.9] Start: 03-14-2024 End: 03-14-2024 Patient encounter procedure 03/14/2024 8:30 AM EDT Appointment Molecular Imaging [address] [place] [address] [facility]ANOMA-[facility] LYMPH NODE IMAGING Molecular Imaging Comment on above: MELANOMA-NM LYMPH NO DE IMAGING Start: 03-07-2024 End: 03-07-2024 Anesthesia consultation 03/07/2024 1:20 PM EDT PAT Pre Anesthesia [address] [place] [address] 9, [address] [place] [address] pacc Pre Anesthesia Comment on above: pacc Start: 03-06-2024 End: 03-06-2024 Patient encounter procedure 03/06/2024 8:00 AM EDT [facility] Maternal Medicine [address] [address] [place] [address] [place] [address] Consult Maternal Medicine Comment on above: Consult Start: 02-22-2024 End: 02-22-2024 Patient encounter procedure 02/22/2024 10:45 AM EDT Appointment Radiology Pet [facility] [address] [place] [address] ct chest and stn w Radiology Pet CT Comment on above: ct chest and stn w Start: 02-20-2024 End: 02-20-2024 ambulatory 02/20/2024 3:00 PM EDT Results Only [facility] [address] [place] [address] [place] [address] [facility] Start: 02-20-2024 End: 01-22-2025 CBC W Auto Differential panel - Blood COMPLETE BLOOD COUNT AND DIFFERENTIAL Lab Routine Malignant melanoma of skin (HCC) Expected: 02/20/2024 (Approximate), Expires: 01/22/2025 [facility] Comment on above: Expected: 02/20/2024 (Approximate), Expires: 01/22/2025 Start: 02-20-2024 End: 01-22-2025 Comprehensive metabolic 2000 panel - Serum or Plasma COMPREHENSIVE METABOLIC PANEL Lab Routine Malignant melanoma of skin (HCC) Expected: 02/20/2024 (Approximate), Expires: 01/22/2025 [facility] Comment on above: Expected: 02/20/2024 (Approximate), Expires: 01/22/2025 Start: 02-20-2024 End: 02-21-2025 CT Chest W contrast IV CT CHEST W IVCON Radiology Routine Malignant melanoma of skin (HCC) Expected: 02/20/2024 (Approximate), Expires: 02/21/2025 [facility] Comment on above: Expected: 02/20/2024 [...] skin (HCC) Expected: 02/20/2024 (Approximate), Expires: 01/22/2025 [facility] Comment on above: Expected: 02/20/2024 (Approximate), Expires: 01/22/2025 Start: 02-19-2024 Subsequent hospital visit by physician 02/19/2024 [facility] [address] [id number] Fransico Sharp MD [address] [place], [place] [id number] Malignant melanoma of skin (HCC) [C43.9] Surgery [...] Start: 02-12-2024 End: 02-12-2024 Patient encounter procedure [facility] - Ultrasound Comment on above: MELANOMA-NM LYMPH NO DE IMAGING Start: 01-14-2024 End: 01-14-2024 Telemedicine consultation with patient 01/14/2024 10:15 AM EDT Telemedicine [facility] Pulmonary/Sleep Medicine [address] [place] [address] [address] [place] [address] HaydenGurjit MD [address] [facility], [address] [place] [address] [facility] Start: 12-17-2023 End: 12-17-2023 Patient encounter procedure 12/17/2023 1:45 PM EDT Office Visit [facility] [address] [facility] [id number] Freddie Delgado, ELECTRICIAN MAINTENANCE-DINING ROOM SERVER [address], [facility] [place] [address] [facility] Start: 12-10-2023 End: 12-10-2023 Patient encounter procedure 12/10/2023 2:20 PM EDT Routine [facility] [address] [place] [id number] Eliazar Castaneda, [address] [place] [address] [facility] Start: 11-20-2023 End: 11-20-2023 Patient encounter procedure 11/20/2023 8:00 AM EST Appointment [facility] - Ultrasound [address] [place] [phone] [facility] - Ultrasound Start: 11-12-2023 End: 11-12-2024 US for US OB ANATOMY SINGLE W US OB CERVICAL LENGTH Imaging Routine Screening, , for anatomic survey Expected: 11/12/2023 (Approximate), Expires: 11/12/2024 [facility] Comment on above: Expected: 11/12/2023 (Approximate), Expires: 11/12/2024 Start: 10-01-2023 Behavioral Health Screening Behavioral Health Screening [facility] Start: 10-01-2023 Depression Assessment Depression Ass essment [facility] Start: 06-01-2023 Covid-19 Vaccine ( season) Covid-19 Vaccine ( season) [facility] Start: 06-01-[address] [facility] Start: 05-03-2023 Screening for malign ant neoplasm of cervix Pap Smear [facility] Start: 03-19-[address] [facility] Start: 06-02-2020 [facility] Work Phone: Start: 06-01-2020 Influenza vaccination Flu vaccine (# 1) [place], [place] Start: 12-02-2019 Dental Comp Exam [facility] Work Phone: Start: 11-17-2019 Women's Health [facility] Work Phone: Start: 10-21-2019 Lipid 1996 panel Health [facility] Work Phone: Start: 10-14-2019 [facility] Work Phone: Comment on above: Note: Please make a referral to: Start: 09-16-2019 Dental Comp Exam [facility] Work Phone: Start: 08-25-2019 Medical Establ ished Patient [facility] Work Phone: Start: 08-20-2019 Urine Pregnanc y Test, In House Health [facility] Work Phone: Start: 2018 Screening for malign ant neoplasm of cervix HPV Testing [facility] Start: 2009 Screening for malign ant neoplasm of cervix [facility] Start: 2007 DTaP/Tdap/Td vaccine (1 - Tdap) DTaP/Tdap/Td vaccine (1 - Tdap) [place], [place] Start: 2007 Hepatitis B Vaccine (1 of 3 - 19+ 3-dose series) Hepatitis B Vaccine (1 of 3 - + 3-dose series) [facility] Start: 2006 Adult BMI Follow Up Plan Adult BMI Follow Up Plan [facility] Start: 2006 Annual 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 Start: 2006 Spirometry Spirometry [facility] Start: 2003 HIV screening HIV screen [facility] [place], [place] Start: 1989 Varicella vaccine (1 of 2 - 2-dose childhood series) Varicella vaccine (1 of 2 - 2-dose childhood series) [place], [place] Adjt tis trns/reargm t f/c/c/m/n/a/g/h/f 10sqcm/< TRANSFER / REARRANGEMENT ADJACENT TISSUE FACE/NECK DEFECT 10 SQ CM OR LESS Malignant melanoma of skin (HCC) [facility] A60 Alpha fetoprotein, maternal Alpha fetoprotein, maternal Lab Routine Second trimester Ordered: 11/12/2023 [facility] Work Phone: Comment on above: Ordered: 11/12/2023 Bx/exc lymph node op en deep cervical node BIOPSY NODE CERVICAL NECK Malignant melanoma of skin (HCC) [facility] A60 End: 05-03-2020 C.trachomatis N.gonorrhoeae DNA, Thin Prep C.trachomatis N.gonorrhoeae DNA, Thin Prep Microbiology Routine Once for 1 Occurrences starting 05/03/2020 until 05/03/2020 [place], [place] Comment on above: Once for 1 Occurrenc es starting 05/03/2020 until 05/03/2020 C.trachomatis N.gonorrhoeae DNA, Thin Prep C.trachomatis N.gonorrhoeae DNA, Thin Prep Microbiology Routine 05/03/2020 7:32 AM EDT [place], [place] Excision malignant lesion f/e/e/n/l >4.0 cm EXCISION MALIGNANT LESION FACE OVER 4.0 CM Malignant melanoma of skin (HCC) [facility] A60 Inj radioactive trac er for id of sentinel node INJECTION PROCEDURE RADIOACTIVE TRACER FOR IDENTIFICATION OF SENTINEL NODE Malignant melanoma of skin (HCC) [facility] A60 Intraop sentinel lym ph node [...] until 02/02/2025 Patient Education Hiatal Hernia (DC) [facility] Work Phone: [facility] PLASTICS A60 Immunizations Immunization Date Immunization Notes Care Provider Maryuri gómez 05-11-2023 influenza virus vaccine, unspecified formulation Katarina Antonio [facility] Work Phone: [employer] 07-16-2022 SARS-COV-2 (COVID-19 ) vaccine, mRNA, spike protein, LNP, bivalent, PF Dionne BRAN Work Phone: [facility] 01-24-2018 tetanus toxoid, redu camden diphtheria toxoid, and acellular pertussis vaccine, adsorbed Dionne BRAN Work Phone: [facility] Healthcare Payers Date Payer Category Payer Self-pay 2022 Medicaid [id number] 2019 Unknown 1 - [facility] [id number] [id number] 2017 Unknown [id number] 1988 Unknown [id number] 2.16.84 0.1.481901.3.579.2.593 1988 Unknown [id number] 2.16.84 0.1.138639.3.579.2.593 1988 Unknown [id number] 2.16.84 0.1.069295.3.579.2.593 1988 Unknown [id number] 2.16.84 0.1.021553.3.579.2.593 1988 Unknown [id number] 2.16.84 0.1.930326.3.579.2.593 1988 Unknown [id number] 2.16.84 0.1.556367.3.579.2.593 1988 Unknown [id number] 2.16.84 0.1.061810.3.579.2.593 1988 Unknown [id number] 2.16.84 0.1.919239.3.579.2.593 1988 Unknown [id number] 2.16.84 0.1.802756.3.579.2.593 1988 Unknown [id number] 2.16.8 40.1.784019.3.579.2.1285 1988 Unknown [id number] 2.16.8 40.1.025145.3.579.2.1285 1988 Unknown [id number] 2.16.8 40.1.837890.3.579.2.1285 1988 Unknown [id number] 2.16.8 40.1.617242.3.579.2.1285 1988 Unknown [id number] 2.16.8 40.1.992204.3.579.2.1285 1988 Unknown [id number] 2.16.84 0.1.352927.3.579.2.1285 1988 Unknown [id number] 2.16.8 40.1.641405.3.579.2.1285 1988 Unknown [id number] 2.16.8 40.1.506680.3.579.2.1285 1988 Unknown [id number] 2.16.8 40.1.634306.3.579.2.1285 1988 Unknown [id number] 2.16.84 0.1.266716.3.579.2.1258 1988 Unknown [id number] 2.16.84 0.1.298102.3.579.2.1258 1988 Unknown [id number] 2.16.84 0.1.960171.3.579.2.1258 1988 Unknown [id number] 2.16.84 0.1.011833.3.579.2.1258 1988 Unknown [id number] 2.16.84 0.1.245499.3.579.2.1259 1988 Unknown [id number] 2.16.84 0.1.984515.3.579.2.1259 1988 Unknown [id number] 2.16.84 0.1.228024.3.579.2.1259 1988 Unknown [id number] 2.16.840 .1.185897.3.579.2.1259 1959 Medicaid [id number] 2. 16.840.1.824900.19 Self-pay [id number] 2.16.840 .1.516347.3.140.1.28562.5.4 Unknown [employer] [id number] Unknown [id number] 2.16.8 40.1.298685.3.579.2.531 Unknown [id number] 2.16.8 40.1.912018.3.579.2.531 Social History Date Type Detail Facility Assertion Alcohol consumpt ion screening (procedure) [facility] Work Phone: Assertion [facility] Assertion Finding of alcoh ol intake (finding) [facility] Work Phone: Assertion Sexually active (finding) [facility] Work Phone: Assertion Gender identity finding (finding) [facility] Work Phone: Assertion Finding of sexua l orientation (finding) [facility] Work Phone: Tobacco smoking status Unknown if ever smoked [facility] Assertion Emotional stress (finding) [facility] Work Phone: Start: 1990 Sex Assigned At Not on file [facility] [place], [place] Assertion Contraception (finding) [facility] Work Phone: Start: 09-10-2023 End: 02-20-2024 Sex Assigned At [facility] Start: 1988 Sex Assigned At Female [facility] Start: 04-05-2022 End: 12-26-2023 Tobacco smoking status NHIS Never smoked tobacco [facility] Start: 04-05-2022 End: 12-26-2023 Tobacco use and exposure Smokeless tobacco non-user [facility] Start: 10-10-2023 End: 12-17-2023 Alcohol intake Ex-drinker (finding) [facility] Start: 09-10-2023 End: 02-20-2024 History of Social function [facility] How hard is it for you to pay for the very basics like food, housing, medical care, and heating Very hard [facility] Start: 07-12-2023 [facility] Start: 11-12-2023 Alcohol intake Lifetime non-d rhys (finding) [facility] Start: 03-09-2023 Education [facility] Start: 03-09-2023 Alcohol Comment Caffeine intak e: 1-2 cups per day coffee, pop [facility] Start: 12-26-2023 End: 01-21-2024 Alcohol intake Current drinker of alcohol (finding) [facility] NEGATED: Highlighted row Assertion He has not had 5 or more drinks in a day within the past year. [facility] Work Phone: NEGATED: Highlighted row Assertion Exposure to pollution (event) [facility] Work Phone: NEGATED: Highlighted row Assertion Tobacco user (finding) [facility] Work Phone: NEGATED: Highlighted row Assertion Current drinker of alcohol (finding) [facility] Work Phone: NEGATED: Highlighted row Assertion Finding relating to drug misuse behavior (finding) [facility] Work Phone: Goals Date Patient Goal Desired Activity /State Personal health goal Mental Status Date Assessment Result Facility Cognitive function 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 Pt requesting CT results Louisa: Please review and advise Daisy Murray RN documented in this encounter [facility] 03-05-2024 Telephone encounter Note I think I already communicated that with her - CT's were negative for any metastatic disease. [facility] Work Phone: 03-04-2024 Telephone encounter Note Pt requesting CT results Louisa: Please review and advise Daisy Murray RN [facility] 03-03-2024 Telephone encounter Note Spoke to patient about cancelling surgery scheduled for 03/14. Patient indicated that her imaging was negative and she does not want to pursue surgery until post . Induction scheduled for 03/24. Dr. Sharp notified and indicated it was okay to have the WLE and SLNB post . Instructions provided to reschedule BIBI. [facility] 03-03-2024 Miscellaneous Notes Spoke to patient about cancelling surgery scheduled for 03/14. Patient indicated that her imaging was negative and she does not want to pursue surgery until post . Induction scheduled for 03/24. Dr. Sharp notified and indicated it was okay to have the WLE and SLNB post . Instructions provided to reschedule BIBI. Pt calling in to cancel surgery on 03/14 and pre op appointment. Can you call her back? Thank you documented in this encounter [facility] 03-03-2024 Telephone encounter Note 03/03/2024 MFM Message left on pts phone to look at her my chart messages. Ana Peoples MD [facility] 03-03-2024 Miscellaneous Notes 03/03/2024 MFM Message left on pts phone to look at her my chart messages. Ana Peoples MD documented in this encounter [facility] 02-29-2024 Telephone encounter Note Pt calling in to cancel surgery on 03/14 and pre op appointment. Can you call her back? Thank you [facility] 02-26-2024 Telephone encounter Note She texted me - CT's look good. Will need a chest ct later. [facility] Work Phone: 02-26-2024 Miscellaneous Notes [...] Daisy Murray RN documented in this encounter [facility] 02-26-2024 Telephone encounter Note Patient calling. Doesn't know how to proceed. States her oncologist is out of town and no one can read the results. States she is 35 weeks . Please call patient back to discuss. [facility] 02-26-2024 Telephone encounter Note Pt calling for CT results. She is aware Dr Deshpande is out of office this week and will be in touch with his response Sunday. Louisa: Please advise Daisy Murray RN [facility] 02-22-2024 Note HNO ID: [id number] Author: PACHECO BOWEN RN Service: ? Author [...] DATE: February 22, 2024 TIME: 10:46 AM [facility] 02-22-2024 Note HNO ID: [id number] Author: BRANDON COULTER RT(R) Service: ? Author [...] PATIENT PRESENTS WITH AN IMPLANTABLE OR ATTACHED TRAINING AND DEVELOPMENT SPECIALIST: No RADIOLOGY DEPARTMENT: CT; Exam(s) Completed: Chest and Neck PERIPHERAL IV DATA: Site assessment: Clean,Dry and Intact, Site disposition Discontinued SIGNED BY: Brandon Coulter RT(R) February 22, 2024 11:10 AM [facility] 01-25-2024 Telephone encounter Note Pt is not able to make the appt on 02/11; amina wondering if this should be on March 14 instead? Thanks [facility] 01-25-2024 Miscellaneous Notes Pt is not able to make the appt on 02/11; amina wondering if this should be on March 14 instead? Thanks documented in this encounter [facility] 01-24-2024 Telephone encounter Note Vy is scheduled for her CT scan on 02/21 at 11am. She is scheduled for her labwork still, on 02/19. I spoke with Vy and she is in agreement. Angela Arthur [facility] 01-24-2024 Miscellaneous Notes Vy is scheduled for her CT scan on 02/21 at 11am. She is scheduled for her labwork still, on Sunday, 02/19. I spoke with Vy and she is in agreement. Jerson, Angela Hilario Clerical: Please call pt to [...] were not included. documented in this encounter [facility] 01-24-2024 Telephone encounter Note Clerical: Please call pt to schedule CT scans. Brandon Churchill RN [facility] Work Phone: 01-24-2024 Telephone encounter Note It's ok to move up - but I'd want to know closer to delivery (33 weeks - 34 weeks) because then there won't be a need for additional scans later. Labs are to be done prior to CT. [facility] 01-24-2024 Telephone encounter Note Images [...] CT ahead of 02/19? Brandon Churchill RN [facility] 01-24-2024 Telephone encounter Note Is [...] Vy Deshpande: Please advise Daisy Murray RN [facility] 01-23-2024 Telephone encounter Note We won's be doing scans for 4 weeks.... that works out to be around 33 weeks gestation Does that sound right? (February 19) Thanks, louisa. [facility] 01-23-2024 Telephone encounter Note Pt calls regarding CT scans. Please place orders. Thanks! Brandon Churchill RN [facility] 01-22-2024 Telephone encounter Note 01/22/2024 [facility] Pt called and identified ~ [...] questions answered. Ana Peoples MD [facility] 01-22-2024 Miscellaneous Notes 01/22/2024 MFM Pt called and identified ~ [...] Ana Peoples MD documented in this encounter [facility] 01-22-2024 Telephone encounter Note Images from the original note were not included. [facility] 01-22-2024 Note HNO ID: [id number] Author: ANA PEOPLES MD Service: ? Author [...] Skin cancer Current Assessment AND Plan 01/22/2024 [facility] Pt is a 33 year old 29w4d with a new diagnosis of malignant melanoma located above the left upper lip. Oncologist Usman Goldberg MD Surgeon Fransico Sharp MD Pts general OBGYN in [place], [place]: Eliazar Castaneda MD The plan is for wide local excision with reconstruction, which may take multiple trips to the OR. The OR plan involves radioactive tracer for sentinal node She has not been imaged for staging. She comes to [facility] today for discussion on when [...] with more than 50% of the total xliw-fs-nois time of the visit in counseling / coordination of care. I shared my findings and recommendations via the shared medical record or via the mail to the referring provider. Ana Peoples MD [facility] 01-22-2024 History of Present illness Narrative [...] Fransico Sharp MD Pts general OBGYN in [place], [place]: Eliazar Castaneda MD The plan is for wide local excision with reconstruction, which may take multiple trips to the OR. The OR plan involves radioactive tracer for sentinal node She has not been imaged for staging. She comes to [facility] today for discussion on when [...] with more than 50% of the total oedg-ww-icvw time of the visit in counseling / coordination of care. I shared my findings and recommendations via the shared medical record or via the mail to the referring provider. Ana Peoples MD documented in this encounter [facility] 01-18-2024 Miscellaneous Notes Called pt, [...] L Crowley MA documented in this encounter [facility] 01-10-2024 Miscellaneous Notes [employer] msg was sent to patient asking for call back to this coordinator to schedule MFM consultation. documented in this encounter [facility] 01-09-2024 Miscellaneous Notes Reached out to patient. Instructions provided to see a maternal medicine specialist within the [facility] per Dr. Sharp. This nurse explained that the multidisciplinary team will need frequent communications in arranging the plan of care, and staying in one healthcare system will help facilitate planning. Patient called that she is seeing Maternal Med, in her area and was questioning does she need to see one at the [facility]? She is asking for a call.. she is very nervous documented in this encounter [facility] 01-04-2024 Instructions Valerie Bedoya RN - 01/04/2024 3:21 PM EDT PLAN: - Photos taken and uploaded to chart today via [employer] - Pathology re-read to be obtained - Surgical plan is for resection of left upper lip melanoma, reconstruction with local tissue rearrangement, and a sentinel lymph node biopsy - Surgery at [facility] or [facility]. Likely plan is to wait for surgical intervention until after 36 weeks . - Pre op clearance (PACC) prior to surgery for clearance to receive general anesthesia; must be done at a [facility] location - Nuclear medicine appointment at [facility] the morning of surgery - Post op 7-10 days with Tana Cervantes APRN.DINING ROOM SERVER - Consult placed to Maternal Medicine (MFM) for risk assessment and guidance: call [phone] to schedule. - Recommend regular dermatology follow-up for FBSE - Q3 months for 2 years, Q6 months for 5 years and Q1 year for the rest of his/her life Our doctor of naprapathy will contact you to set up all [...] office with questions/concerns. documented in this encounter [facility] 12-28-2023 Note HNO ID: [id number] Author: FRANSICO SHARP MD Service: ? Author Type: Physician Type: Progress Notes Filed: 01/06/2024 09:42 Note Text: DATE: January 03, 2024 CC: New Melanoma Patient Referring Physician: Margarita Kim MD at [facility] HPI: Vy Mckeon is a 33 year [...] 400 mg by mouth. omeprazole magnesium (ACID BOUFFANT CURTAIN MACHINE TENDER, OMEPRAZOLE, ORAL) Take by mouth as directed. [...] left upper lip with a variegated pattern, hobber in the middle with a number of [...] taken and uploaded to chart today via [employer] - Pathology re-read to be obtained - Surgical plan is for resection of left upper lip melanoma, reconstruction with local tissue rearrangement, and a sentinel lymph node biopsy - Surgery at [facility] or . Likely plan is to wait for surgical intervention until after 36 weeks . - PACC prior to surgery - Nuclear medicine appointment at [facility] the (more content not included)... [facility] 12-28-2023 History of Present illness Narrative Images from the original note were not included. DATE: January 03, 2024 CC: New Melanoma Patient Referring Physician: Margarita Kim MD at [facility] [place] HPI: Vy Mckeon is a 33 year [...] 400 mg by mouth. omeprazole magnesium (ACID BOUFFANT CURTAIN MACHINE TENDER, OMEPRAZOLE, ORAL) Take by mouth as directed. [...] left upper lip with a variegated pattern, hobber in the middle with a number of dark spots. The lesion measures 1 cm in diameter. Photos taken, see Epic Get Images LABS: Pathology Report - EXTERNAL [...] taken and uploaded to chart today via [employer] - Pathology re-read to be obtained - Surgical plan is for resection of left upper lip melanoma, reconstruction with local tissue rearrangement, and a sentinel lymph node biopsy - Surgery at [facility] or . Likely plan is to wait for surgical intervention until after 36 weeks . - PACC prior to surgery - Nuclear medicine appointment at [facility] the morning of surgery - Post op 7-10 days with Tana Cervantes APRN.DINING ROOM SERVER - Consult placed to [facility] for risk assessment and guidance: call [phone] to schedule. - Recommend regular dermatology follow-up for FBSE - Q3 months for 2 years, Q6 months for 5 years and Q1 year for the rest of his/her life - Patient follows with OBGYN Dr. Castaneda in [place], [place] Follow up after 36 weeks of and with [facility]'s recommendations. The patient is seen and examined by Dr. Sharp and the following reflects his service. 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 While I believe this to be a [...] Fransico Sharp MD documented in this encounter [facility] 12-26-2023 Note HNO ID: [id number] Author: USMAN GOLDBERG MD Service: ? Author Type: Physician Type: Progress Notes Filed: 12/27/2023 12:46 Note Text: NAME: Vy Mckeon [facility] NO.: [id number] DATE OF SERVICE: December 26, 2023 (Krystal) [...] 400 mg by mouth. omeprazole magnesium (ACID BOUFFANT CURTAIN MACHINE TENDER, OMEPRAZOLE, ORAL) Take by mouth as directed. PNV no.95/ferrous fum/folic ac ( ORAL) Take by mouth as directed. LABORATORY VALUES: WBC (k/uL) Date Value 12/26/2023 9.72 RBC (m/uL) Date Value 12/26/2023 3.99 Hemoglob (more content not included)... [facility] 12-17-2023 History of Present illness Narrative Subjective Patient ID: Vy Mckeon is a 33 y.o. female. FRANDY Mcclellan presents to the office for follow up.She was last seen with continued depression and anxiety and had stopped taking Zoloft, hydroxyzine and trazodone because she was found to be . She is 24 weeks along in her with Placenta previa. Last RN EXAMINER visit 12/11/23 with . carrier screening result [...] not have morning sickness. Lab work from [facility] 12/10 pre-marcos visit RBC-3.72, HGB 11.2, HCT [...] normal. Behavior: Behavior normal. Assessment/Plan Follow-up with RN EXAMINER for follow-up on hematology result showing minimally [...] for sleep. Note completed with assistance of BLENDER LABORER student. GIOVANNI Darling 12/17/23 1538 documented in this encounter [facility] 12-17-2023 Miscellaneous Notes Disclaimer: This note [...] legal medical record. documented in this encounter [facility] 12-17-2023 Progress note Formatting of t [...] a part of the legal medical record. [facility] 12-07-2023 History of Present illness Narrative Summary: FOB carrier screening results Called Vy to let her know that FOB's carrier screening result for GJB2-related disorders is negative. The is low risk to be affected with this condition. Vy understood and had no additional questions. I encouraged her to reach out if anything comes up. documented in this encounter [facility] 11-20-2023 History of Present illness Narrative Video Visit via Real-time Synchronous Audiovisual Provider Location: [facility]- [facility]ICINE AT [place] [id number] [facility], [address] [place] [address] Patient Location: Other Patient Location Cell Support Operator: None Video Visit Consent Statement: I [...] that there are some limitations compared to jnvu-kd-romg evaluations. We elected to proceed. REASON FOR [...] for nausea or vomiting., Disp: , Rfl: [id number]-[id number] 29-1-400 mg combo pack,tablet & capDR, Take [...] patient is in complete care of her library historian. Patient does have ultrasound and office visit scheduled with us. Thank you for allowing me to participate in the care of Vy Mckeon. If there any questions please do not hesitate to contact us. Fidencio Rojas MD Maternal- Medicine [facility] [address] [facility] 1st [place] [address] [facility], the CDC, and other organizations representing maternal and public health professionals recommend that , , and lactating people and those considering receive the COVID-19 vaccination. Vaccination is the best method to reduce maternal and complications of SARS-CoV-2 infection. This document was created with [employer] technology. Though I make every effort to review the dictation as it is transcribed, on occasion the spoken word can be misinterpreted by the technology leading to inappropriate words, phrases, or sentences. This note is addressed to the requesting provider as a consultation for clinical guidance. Specific medical abbreviations are occasionally used and those are generally approved by the [place]?Board of?Obstetrics and?Gynecology?as well as?Justyna rea abbreviations. The above plan of care was based solely on the diagnoses for which a consultation was requested. ?More frequent testing may be indicated based on her other medical/obstetrical conditions. The management of other or medical conditions is beyond the scope of requested consultation and will continue to be followed by the primary library historian or primary care provider. Note to patient: [...] of the practitioner. [facility] History of Present illness Narrative Reason for Appointment: Patient ID: Vy Mckeon is a 33 y.o. female who presents for Routine Visit Patient presents today for Return OB appointment. Current Medications: has a current medication list which includes the following prescription(s): valacyclovir. Medical History: Active Ambulatory Problems Diagnosis Date Noted Attention deficit hyperactivity disorder ([facility]/HCC) 02/13/2023 Bipolar disorder, most recent episode depressed ([facility]/HCC) 02/13/2023 Depression ([facility]) 02/13/2023 Generalized anxiety disorder ([facility]/HCC) 02/13/2023 Insomnia 02/13/2023 Mild episode of recurrent major depressive disorder (HCC) ([facility]) 02/13/2023 Mild intermittent asthma without complication (CMS/[facility]) 02/13/2023 Asthma exacerbation, mild ([facility]) 02/13/2023 Mild persistent asthma with (acute) exacerbation ([facility]/HCC) 02/19/2023 Second trimester 10/08/2023 AMA (advanced maternal age) primigravida 35+, unspecified trimester 10/08/2023 Resolved Ambulatory Problems Diagnosis Date Noted No Resolved Ambulatory Problems Past Medical History: Diagnosis Date ADHD (attention deficit hyperactivity disorder) ([facility]) Allergies Anxiety Asthma ([facility]/HCC) Bipolar disorder ([facility]) Family History Problem Relation Name Age of [...] obtained without difficulty and patient was given [facility] order to have obtained. Follow Up: Patient is to return to our office in 4 weeks for routine OB appointment Documented by Dana Farris LPN on behalf of: SHANT España documented in this encounter [facility] 11-12-2023 History of Present illness Narrative Summary: MOB carrier screening results Called and discussed carrier screening results with Vy. 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 We discussed the natural history and etiology of the condition. I recommend FOB carrier screening if he's available. She understood and had no additional questions. She will reach out to [facility] to get the necessary info needed for me to order his carrier screening (full name, , phone number, email, health insurance info). She requests the kit be sent to her home address. I will be on the lookout for an email from her with his information. I encouraged the patient to call back with any additional questions or concerns. documented in this encounter [facility] 10-29-2023 History of Present illness Narrative [...] completed between 11/10-11/17. documented in this encounter [facility] 10-22-2023 History of Present illness Narrative Summary: M Genetic Counseling Note Provider at different site/location than patient. I confirmed the patient is located in the [facility] [place]. Vy Yu Mckeon is currently at home and provider at remote site. The patient consented to be treated electronically via this form of telemedicine. This visit was not related to an office visit or procedure in the past 7 days, and in-office follow up is not recommended in the next 24 hours. Video Visit via Real-time Synchronous Audiovisual Provider Location: [facility]- MEDICINE AT [address] [id number] Patient Location: Patient's home Patient Location Cell Support Operator: None Video Visit Consent Statement: I [...] that there are some limitations compared to jtid-ky-akfk evaluations. We elected to proceed. Name: Vy Mckeon : 1990 Date of Visit: 10/22/2023 Email: Preferred contact method: email Partner's Name: Bogdan Age: 32 Requesting Physician: Eliazar Castaneda DO [address] [place] [address] Josr Acharya, [place] [address] Reason for Referral: Vy Mckeon is a 33 y.o. female who presented to [facility] Tele[facility]. Vy is here [...] Screen: YES - low risk Performing lab: [facility] ([facility] Screen) Conditions screened: Trisomy 13, Trisomy [...] the medical records and evaluation by medical review specialist of the affected individual would be [...] age I personally spent 25 minutes in vhoi-os-ktil time with this patient. I provided genetic [...] call or email their genetic counselor at [phone] or [email or web address] if any additional questions or concerns should arise. TAMMY Soto Licensed, Certified Genetic Counselor documented in this encounter [facility] 05-29-2023 Evaluation note Encounter Date Diagnosis Assessment Notes May, Thrush (ICD-10 - B37.0) Continue home medications as prescribed. Use the nystatin mouthwash as prescribed, swish and swallow. Follow-up with your family physician if no improvement in 2 to 3 days [employer] Other 06-19-[address] [facility]* Encounter Date Diagnosis Assessment [...] educated on the importance of PPI optimization [employer] Other 05-10-2023 Evaluation note* Encounter Date Diagnosis [...] January, Other Contusion mater ial was printed [employer] Other 08-23-2022 NoteOPERATIVE NOTE OPERATION DATE: 05/23/2022 PROCEDURE: Suction D AND C. PREOPERATIVE DIAGNOSIS: Missed . POSTOPERATIVE DIAGNOSIS: Missed . ANESTHESIA: General. SURGEON: Eliazar Castaneda D.O. SALT PLANT OPERATOR: None. FINDING: Products of conception. SPECIMEN: Products [...] the Recovery Room in stable condition. ??[facility] Includes: Assessments for all patient encounters Findings Encounter Date Depressive disorder Telebehavioral alth with Emilee Short [facility] 03/29/2020 Generalized anxiety disorder [facility] with Emilee Short [facility] 03/29/2020 Dysthymic disorder Established Patie nt with Bobbi Colon [facility] 10/14/2019 Generalized anxiety disorder Establis hed Patient with Bobbi Colon [facility] 10/14/2019 Z68.24 - Body mass index (BM I) 24.0-24.9 adult Medical Established Patient with Candacehalley Grossman [facility] 10/14/2019 F34.1 - Dysthymic disorder Establishe d Patient with Bobbi Colon [facility] 09/04/2019 Generalized anxiety disorder Establis hed Patient with Bobbi Colon [facility] 09/04/2019 Body mass index Medical Established Patient with Candace Grossman [facility] 09/04/2019 Diabetes Risk Test Score was 0 score 09/04/2019 Medical Established Patient with Candace Grossman [facility] 09/04/2019 Body mass index Nurse Visit with Candace Grossman P 08/19/2019 Diabetes Risk Test Score was 0 score 08/19/2019 Nurse Visit with Candace Grossman [facility] 08/19/2019 Generalized anxiety disorder Establis hed Patient with Bobbi Colon [facility] 07/28/2019 Severe recurrent major depre 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 features Established Patient with Bobbi Colon [facility] 07/28/2019 AUDIT alcohol use disorders identification test was six 07/28/2019 Medical New Patient with Candace Grossman [facility] 07/28/2019 Diabetes Risk Test Score was 0 score 07/28/2019 Medical New Patient with Candace Grossman [facility] 07/28/2019 ZAN-7 score was 21 07/28/2019 Medical Ne w Patient with Candace Grossman [facility] 07/28/2019 PHQ-9: total score was 21 07/28/2019 Med ical New Patient with Candace Grossman [facility] 07/28/2019 Z68.22 - Body mass index (BM I) 22.0-22.9 adult Medical New Patient with Candace Grossman DINING ROOM SERVER 07/28/2019 [facility] Work Phone: Evaluation noteNo assessment information available [facility] Work Phone: Evaluation note* Diagnosis Onset Date Resolution Status GERD (gastroesophageal reflux disease) acute [facility] Work Phone: Evaluation note* Diagnosis Multigravida of advanced maternal age in second trimester- Primary Family history of autism Family history of mental disorder Family history of psychiatric condition [facility] Diagnosis Multigravida of advanced maternal age in second trimester- Primary Family history of autism Family history of mental disorder Family history of psychiatric condition documented [facility] this encounter [facility] Diagnosis Second trimester state, incidental Vaginal discharge Leukorrhea, not specified as infective STD exposure Screening, , for anatomic survey Encounter for anatomic survey Chronic cluster headache, not intractable [facility] [place]* Diagnosis Multigravida of advanced maternal age in second trimester Family history of autism Family history of mental disorder Family history of psychiatric condition [facility] Diagnosis 20 weeks gestation of - Primary Placenta previa antepartum in second trimester Advanced maternal age in multigravida, second trimester documented in this [facility] Diagnosis Placenta previa antepartum in second trimester- Primary Multigravida of advanced maternal age in second trimester documented [facility] this [facility]* Diagnosis Nausea and vomiting, unspecified vomiting type- Primary Psychophysiological insomnia Persistent disorder of initiating or maintaining sleep documented in this [facility]* Diagnosis Malignant melanoma of skin (HCC)- Primary Melanoma of skin, site unspecified [facility] [place] [facility]* Diagnosis Encounter for anatomic survey Encounter for anatomic survey- Primary [facility] Diagnosis Encounter for anatomic survey documented [facility] [place] [facility]* Diagnosis Malignant melanoma of skin (HCC) Melanoma of skin, site unspecified Skin cancer Unspecified malignant neoplasm of skin, site unspecified Placenta previa antepartum in second trimester * Assessment & Plan Note - Ana Peoples MD - 01/21/2024 1:34 PM EDT Associated Problem(s): Skin cancer 01/22/2024 [facility] Pt is a 33 year old 29w4d with a new diagnosis of malignant melanoma located above the left upper lip. Oncologist Usman Goldberg MD Surgeon Fransico Sharp MD Pts general OBGYN in [place], [place]: Eliazar Castaneda MD The plan is for wide local excision with reconstruction, which may take multiple trips to the OR. The OR plan involves radioactive tracer for sentinal node She has not been imaged for staging. She comes to [facility] today for discussion on when [...] pt can deliver [facility] if she goesat term and the CT does not show any spread.. We would need to find a way to get the placenta to [facility] for examination. I have left a message with Dr. Castaneda's office to call me back so that we can confirm ability to get placenta to [facility] for pathology should she deliver at [place]. Ana Peoples MD documented in this encounter [facility]* Diagnosis Malignant melanoma of skin (HCC)- Primary Melanoma of skin, site unspecified Malignant melanoma of skin (HCC) Melanoma of skin, site unspecified documented in this encounter [facility] general Narrative - Reported* Type Description Date Medical History anxiety Medical History depression Medical History ADHD Surgical History D&C [employer] Other History general Narrative - Reported* Type Description Date Medical History anxiety Medical History depression Medical History ADHD Surgical History D&C 2021 [employer] Other History of Present illness Narrative History of Present Illness not supported for this document type No History of Present Illness [facility] Work Phone: Hospital Discharge instructions Additional [...] driving -Do NOT operate machinery such as VEN[employer]M, Comprehend Systemswers, snow blowers, sewing machines, etc. -Avoid alcoholic [...] if you have any problems. -Office number [phone] Work Phone: Instructions Instructions not supported for this document type No Instructions [facility] Work Phone: InstructionsNot on filedocumented in this encounter [employer] [facility] SystemInstructionsNot on filedocumented in this encounter [facility] SystemInstructionsNot on filedocumented in this encounter [facility] problem outcome Narrative Includes: Evaluations & Outcomes for active Goals No Outcomes [facility] Work Phone: Reason for referral (narrative)No Reason for Referral [facility] Work Phone: Reason for referral (narrative)* Diagnostic Procedure Only (Routine) - Closed Specialty Diagnoses / Procedures Referred By Kalina ghotra Referred To Contact [facility] Diagnoses Encounter for anatomic survey Procedures OBSTETRIC ULTRASOUND WHI US PREG UTERUS AFTER 1ST [place] [address] [place] [address] [facility] [address] [place] [address] Referral ID Status Reason Start Date Expiration Date V isits Requested Visits Authorized [id number] Closed Auto-Generate d Referral 01/21/2024 01/20/2025 1 1 [facility] for [facility] NarrativeUNCONTROLLED GERD//[facility]AL [facility] Other Reason for visit Narrative* Consultation (Routine) - Pending Review Specialty Diagnoses / Procedures Referred By Kalina ghotra Referred To Contact Maternal and Medicine Diagnoses Multigravida of advanced maternal age in second trimester Eliazar Castaneda, DO [address] , [place] [address] [facility] Maternal Med [address] [place] [address] Referral ID Status Reason Start Date Expiration Date Visits Requested Visits Authorized [id number] Pending Review Specialty Services Required 10/10/2023 10/09/2024 1 1 [facility] Narrative* Diagnostic Procedure Only (Routine) - Closed Specialty Diagnoses / Procedures Referred By Kalina ghotra Referred To Contact [facility] Diagnoses Encounter for anatomic survey Procedures OBSTETRIC ULTRASOUND WHI US PREG UTERUS AFTER 1ST TRIMEST 1 [place] [address] [place] [address] [facility] [address] [place] [address] Referral ID Status Reason Start Date Expiration Date V isits Requested Visits Authorized [id number] Closed Auto-Generate d Referral 01/21/2024 01/20/2025 1 1 [facility] Narrative - Reported Review of Systems not supported for this document type No Review of Systems [facility] Work Phone: Summary Purpose Family History Description Last Updated Paternal history of cardiovascular disor thuy 07/28/2019 Relationship Condition Age at Onset Recorded Date/T pia Not Specified Anxiety Unknown Chronic obstructive pulmonary disease Unk nown Advance Directives Documents on File Type Date Recorded Patient Scientist Propagator Expl anation Advance Directives and Living Will Power of Program Project Manager Advance Directive Response Recorded Date/ Time Advance Directives No February 07 3 3:12pm Reason for Referral Specialty Diagnoses / Procedures Referred By Contac t Referred To Contact Maternal and Medicine Diagnoses Placenta previa antepartum in second trimester Multigravida of advanced maternal age in second trimester Procedures US MFM with or without consult Fidencio Rojas MD [address] [facility] 1st [place] [address] [facility] [address] [place] [address] Referral ID Status Reason Start Date Expiration Date V isits Requested Visits Authorized [id number] Pending Review 11/20/2023 11/19/2024 1 1 Specialty Diagnoses / Procedures Referred By Contac t Referred To Contact Diagnoses Malignant melanoma of skin (HCC) Procedures REFER TO PACC - PRE ANESTHESIA CONSULTATION CLINIC OFFICE/OUTPATIENT [facility] 60 MINUTES Fransico Sharp MD [address] [place] [address] Referral ID Status Reason Start Date Expiration Date Visits Requested Visits Authorized [id number] Authorized PCP Requested Referral 01/04/2024 01/03/2025 1 1 Specialty Diagnoses / Procedures Referred By Contac t Referred To Contact Diagnoses Malignant melanoma of skin (HCC) Procedures CONSULT TO MATERNAL MEDI OFFICE/OUTPATIENT [facility] 60 MINUTES Fransico Sharp MD [address] [place] [address] Referral ID Status Reason Start Date Expiration Date Visits Requested Visits Authorized [id number] Authorized PCP Requested Referral Auto-Generate d Referral 01/04/2024 01/03/2025 1 1 Specialty Diagnoses / Procedures Referred By Contac t Referred To Contact CT IM[facility] Diagnoses Malignant melanoma of skin (HCC) Procedures CT CHEST W IVCON DIAGNOSTIC COMPUTED TOMOGRAPHY THORAX W/CONTRAST Usman Goldberg MD [address] [place] [address] [place] [address] [place] [address] Referral ID Status Reason Start Date Expiration Date Visits Requested Visits Authorized [id number] Authorized Auto-Generat ed Referral 02/20/2024 02/21/2025 1 1 Specialty Diagnoses / Procedures Referred By Contac t Referred To Contact CT IMAGING Diagnoses Malignant melanoma of skin (HCC) Procedures CT NECK SOFT TISSUE W IVCON CT SOFT TISSUE NECK W/CONTRAST MATERIAL Usman Goldberg MD [address] [place] [address] [place] [address] [place] [address] Referral ID Status Reason Start Date Expiration Date Visits Requested Visits Authorized [id number] Authorized Auto-Generat ed Referral 02/20/2024 02/21/2025 1 1 Assessments Findings Encounter Date Generalized anxiety disorder BH Establis hed Patient with Bobbi Colon [facility] 07/28/2019 Severe recurrent major depre 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 features BH Established Patient with Bobbileif Colon [facility] 07/28/2019 AUDIT alcohol use disorders identification test was six 07/28/2019 Medical New Patient with Candace Ngoc [facility] 07/28/2019 Diabetes Risk Test Score was 0 score 07/28/2019 Medical New Patient with Candacehalley Grossman [facility] 07/28/2019 ZAN-7 score was 21 07/28/2019 Medical Ne w Patient with Candace Grossman [facility] 07/28/2019 PHQ-9: total score was 21 07/28/2019 Med ical New Patient with Candacehalley Grossman [facility] 07/28/2019 Z68.22 - Body mass index (BM I) 22.0-22.9 adult Medical New Patient with Candacehalley Grossman [facility] 07/28/2019 Findings Encounter Date F34.1 - Dysthymic disorder BH Establishe d Patient with Bobbileif Colon [facility] 09/04/2019 Generalized anxiety disorder BH Establis hed Patient with Bobbi Colon [facility] 09/04/2019 Body mass index Medical Established Patient with Candace Grossman [facility] 09/04/2019 Diabetes Risk Test Score was 0 score 09/04/2019 Medical Established Patient with Candace Grossman [facility] 09/04/2019 Body mass index Nurse Visit with Candace Grossman P 08/19/2019 Diabetes Risk Test Score was 0 score 08/19/2019 Nurse Visit with Candace Grossman [facility] 08/19/2019 Generalized anxiety disorder BH Establis hed Patient with Bobbileif Colon [facility] 07/28/2019 Severe recurrent major depre 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 features BH Established Patient with Bobbi Colon [facility] 07/28/2019 AUDIT alcohol use disorders identification test was six 07/28/2019 Medical New Patient with Candace Ngoc [facility] 07/28/2019 Diabetes Risk Test Score was 0 score 07/28/2019 Medical New Patient with Candace Grossman [facility] 07/28/2019 ZAN-7 score was 21 07/28/2019 Medical Ne w Patient with Candace Grossman [employer] 07/28/2019 PHQ-9: total score was 21 07/28/2019 Med ical New Patient with Candace Grossman [employer] 07/28/2019 Z68.22 - Body mass index (BM I) 22.0-22.9 adult Medical New Patient with Candace Grossman [employer] 07/28/2019 Findings Encounter Date Dysthymic disorder Established Patie nt with Bobbi Colon [facility] 10/14/2019 Generalized anxiety disorder Establis hed Patient with Bobbi Colon [facility] 10/14/2019 Z68.24 - Body mass index (BM I) 24.0-24.9 adult Medical Established Patient with Candace Grossman [facility] 10/14/2019 F34.1 - Dysthymic disorder BH Establishe d Patient with Bobbi Colon [facility] 09/04/2019 Generalized anxiety disorder BH Establis hed Patient with Bobbi Colon [facility] 09/04/2019 Body mass index Medical Established Patient with Candace Grossman [facility] 09/04/2019 Diabetes Risk Test Score was 0 score 09/04/2019 Medical Established Patient with Candace Grossman [facility] 09/04/2019 Body mass index Nurse Visit with Candace Grossman P 08/19/2019 Diabetes Risk Test Score was 0 score 08/19/2019 Nurse Visit with Candacehalley Grossman [facility] 08/19/2019 Generalized anxiety disorder Establis hed Patient with Bobbi Colon [facility] 07/28/2019 Severe recurrent major depre 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 features Established Patient with Bobbileif Cooln [facility] 07/28/2019 AUDIT alcohol use disorders identification test was six 07/28/2019 Medical New Patient with Candace Grossman [facility] 07/28/2019 Diabetes Risk Test Score was 0 score 07/28/2019 Medical New Patient with Candace Grossman [facility] 07/28/2019 ZAN-7 score was 21 07/28/2019 Medical Ne w Patient with Candace Grossman [facility] 07/28/2019 PHQ-9: total score was 21 07/28/2019 Med ical New Patient with Candace Grossman [facility] 07/28/2019 Z68.22 - Body mass index (BM I) 22.0-22.9 adult Medical New Patient with Candace Grossman [facility] 07/28/2019 Findings Encounter Date Visit for: contraceptive management Women's Heal with Linnea Escobar [facility] 04/08/2020 Z68.24 - Body mass index (BM I) 24.0-24.9, adult Women's Health with Linnea Escobar [employer] 04/08/2020 Depressive disorder Telebehavioral He alth with Emilee Short [facility] 03/29/2020 Generalized anxiety disorder Telebeha vioral Health with Emilee Short [facility] 03/29/2020 Dysthymic disorder Established Patie nt with Bobbi Colon [facility] 10/14/2019 Generalized anxiety disorder Establis hed Patient with Bobbi Colon [facility] 10/14/2019 Z68.24 - Body mass index (BM I) 24.0-24.9 adult Medical Established Patient with Candace Ngoc [employer] 10/14/2019 F34.1 - Dysthymic disorder Establishe d Patient with Bobbi Colon [facility] 09/04/2019 Generalized anxiety disorder Establis hed Patient with Bobbi Colon [facility] 09/04/2019 Body mass index Medical Established Patient with Candace Ngoc [facility] 09/04/2019 Diabetes Risk Test Score was 0 score 09/04/2019 Medical Established Patient with Candace Ngoc [facility] 09/04/2019 Body mass index Nurse Visit with Candace Grossman P 08/19/2019 Diabetes Risk Test Score was 0 score 08/19/2019 Nurse Visit with Candace Grossman [facility] 08/19/2019 Generalized anxiety disorder Establis hed Patient with Bobbi Colon [facility] 07/28/2019 Severe recurrent major depre 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 features Established Patient with Bobbi Colon [facility] 07/28/2019 AUDIT alcohol use disorders identification test was six 07/28/2019 Medical New Patient with Candace Ngoc [facility] 07/28/2019 Diabetes Risk Test Score was 0 score 07/28/2019 Medical New Patient with Candace Ngoc [facility] 07/28/2019 ZAN-7 score was 21 07/28/2019 Medical Ne w Patient with Candace Ngoc [facility] 07/28/2019 PHQ-9: total score was 21 07/28/2019 Med ical New Patient with Candace Ngoc [facility] 07/28/2019 Z68.22 - Body mass index (BM I) 22.0-22.9 adult Medical New Patient with Candace Ngoc [facility] 07/28/2019 Findings Encounter Date Body mass index Nurse Visit with Candace Grossman CN P 08/19/2019 Diabetes Risk Test Score was 0 score 08/19/2019 Nurse Visit with Candace Grossman [facility] 08/19/2019 Generalized anxiety disorder BH Establis hed Patient with Bobbileif Colon [facility] 07/28/2019 Severe recurrent major depre 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 features BH Established Patient with Bobbi Colon [facility] 07/28/2019 AUDIT alcohol use disorders identification test was six 07/28/2019 Medical New Patient with Candace Grossman [facility] 07/28/2019 Diabetes Risk Test Score was 0 score 07/28/2019 Medical New Patient with Candace Grossman [facility] 07/28/2019 ZAN-7 score was 21 07/28/2019 Medical Ne w Patient with Candace Grossman [facility] 07/28/2019 PHQ-9: total score was 21 07/28/2019 Med ical New Patient with Candace Grossman [facility] 07/28/2019 Z68.22 - Body mass index (BM I) 22.0-22.9 adult Medical New Patient with Candace Grossman [facility] 07/28/2019 Findings Encounter Date Overweight Women's Health with Candace Grossman [facility] 05/03/2020 Z68.24 - Body mass index (BM I) 24.0-24.9, adult Women's Health with Candace Grossman [facility] 05/03/2020 Visit for: contraceptive management Women's Heal th with Linnea Samaniegole [facility] 04/08/2020 Z68.24 - Body mass index (BM I) 24.0-24.9, adult Women's Health with Linnea Samaniegole [facility] 04/08/2020 Depressive disorder Telebehavioral He alth with Emilee Short [facility] 03/29/2020 Generalized anxiety disorder Telebeha vioral Health with Emilee Short [facility] 03/29/2020 Dysthymic disorder Established Patie nt with Bobbi Colon [facility] 10/14/2019 Generalized anxiety disorder Establis hed Patient with Bobbi Colon [facility] 10/14/2019 Z68.24 - Body mass index (BM I) 24.0-24.9 adult Medical Established Patient with Candace Ngoc [facility] 10/14/2019 F34.1 - Dysthymic disorder BH Establishe d Patient with Bobbi Colon [facility] 09/04/2019 Generalized anxiety disorder BH Establis hed Patient with Bobbi Colon [facility] 09/04/2019 Body mass index Medical Established Patient with Candace Grossman [employer] 09/04/2019 Diabetes Risk Test Score was 0 score 09/04/2019 Medical Established Patient with Candace Grossman [employer] 09/04/2019 Body mass index Nurse Visit with Candace Grossman CN P 08/19/2019 Diabetes Risk Test Score was 0 score 08/19/2019 Nurse Visit with Candace Grossman [employer] 08/19/2019 Generalized anxiety disorder BH Establis hed Patient with Bobbi Colon [facility] 07/28/2019 Severe recurrent major depre 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 features BH Established Patient with Bobbi Colon [facility] 07/28/2019 AUDIT alcohol use disorders identification test was six 07/28/2019 Medical New Patient with Candace Grossman [employer] 07/28/2019 Diabetes Risk Test Score was 0 score 07/28/2019 Medical New Patient with Candace Grossman [employer] 07/28/2019 ZAN-7 score was 21 07/28/2019 Medical Ne w Patient with Candace Grossman [employer] 07/28/2019 PHQ-9: total score was 21 07/28/2019 Med ical New Patient with Candace Grossman [employer] 07/28/2019 Z68.22 - Body mass index (BM I) 22.0-22.9 adult Medical New Patient with Candace Grossman [employer] 07/28/2019 Instructions Instructions not supported for this [...] and content) DATE CREATED AUTHOR 03/26/2018 [facility] DATE CREATED AUTHOR AUTHOR'S ORGANIZ ATION 05/07/2020 [facility] DATE CREATED AUTHOR AUTHOR'S ORGANIZ ATION 02/10/2023 [facility] DATE CREATED AUTHOR AUTHOR'S ORGANIZ ATION 03/28/2023 [facility] DATE CREATED AUTHOR AUTHOR'S ORGANIZ ATION 12/18/2023 [facility] DATE CREATED AUTHOR AUTHOR'S ORGANIZ ATION 01/14/2024 [facility] DATE CREATED AUTHOR AUTHOR'S ORGANIZ ATION 01/27/2024 [facility] DATE CREATED AUTHOR AUTHOR'S ORGANIZ ATION 02/14/2024 [facility] DATE CREATED AUTHOR AUTHOR'S ORGANIZ ATION 02/28/2024 [facility] DATE CREATED AUTHOR AUTHOR'S ORGANIZ ATION 03/04/2024 [facility] Evaluations & Outcomes (unre cognized section [...] ([facility]) 60 MINUTES Fransico Sharp MD [address] [place] [address] Referral ID Status Reason Start Date Expiration Date V isits Requested Visits Authorized [id number] Closed PCP Requested Referral Auto-Generated Referral 01/04/2024 01/03/2025 1 1 Reason Comments Scans Reason Comments Results - Ct Patient Update Reason Comments Surgery Cancelled Appointment Reason Comments Results Care Teams (unrecognized sec tion and content) Team Status: Inactive Member Role Status Dates JUMANA Spann Attending Provider Active Team Status: Active Member Role Status Dates NON STAFF Primary Care Provider Active Team Status: Inactive Member Role Status Dates Karan Romero MD Attending Provider Active NON STAFF Primary Care Provider Active Retail Account Manager Relationship Specialty Start Date End Date Freddie Delgado APRN-DINING ROOM SERVER PCP - General Nurse Practitioner 07/30/23 Retail Account Manager Relationship Specialty Start Date End Date Freddie Delgado APRN-DINING ROOM SERVER PCP - General Nurse Practitioner 07/30/23 Retail Account Manager Relationship Specialty Start Date End Date Freddie Delgado APRN-DINING ROOM SERVER PCP - General Nurse Practitioner 07/30/23 Retail Account Manager Relationship Specialty Start Date End Date Freddie Delgado ELECTRICIAN MAINTENANCE-DINING ROOM SERVER PCP - General Nurse Practitioner 07/30/23 Retail Account Manager Relationship Specialty Start Date End Date Freddie Delgado ELECTRICIAN MAINTENANCE-DINING ROOM SERVER PCP - General Nurse Practitioner 07/30/23 Retail Account Manager Relationship Specialty Start Date End Date DelgadoKelliFreddie ELECTRICIAN MAINTENANCE-DINING ROOM SERVER PCP - General Nurse Practitioner 07/30/23 Retail Account Manager Relationship Specialty Start Date End Date DelgadoKelliFreddieABIH-DINING ROOM SERVER PCP - General Nurse Practitioner 07/30/23 Retail Account Manager Relationship Specialty Start Date End Date Freddie Delgado [address] [place] [address] PCP - General Family Medicine 12/19/23 Retail Account Manager Relationship Specialty Start Date End Date Freddie Delgado [address] [place] [address] PCP - General Family Medicine 12/19/23 Retail Account Manager Relationship Specialty Start Date End Date Freddie Delgado [address] [place] [address] PCP - General Family Medicine 12/19/23 Retail Account Manager Relationship Specialty Start Date End Date Freddie Delgado [address] [place] [address] PCP - General Family Medicine 12/19/23 Retail Account Manager Relationship Specialty Start Date End Date Freddie Delgado [address] [place] [address] PCP - General Family Medicine 12/19/23 Retail Account Manager Relationship Specialty Start Date End Date Freddie Delgado [address] [place] [address] PCP - General Family Medicine 12/19/23 Retail Account Manager Relationship Specialty Start Date End Date Freddie Delgado [address] [place] [address] PCP - General Family Medicine 12/19/23 Retail Account Manager Relationship Specialty Start Date End Date Freddie Delgado [address] [place] [address] PCP - General Family Medicine 12/19/23 Retail Account Manager Relationship Specialty Start Date End Date Freddie Delgado [address] [place] [address] PCP - General Family Medicine 12/19/23 Retail Account Manager Relationship Specialty Start Date End Date Freddie Delgado [address] [place] [address] PCP - General Family Medicine 12/19/23 Retail Account Manager Relationship Specialty Start Date End Date Freddie Delgado [address] [place] [address] PCP - General Family Medicine 12/19/23 Retail Account Manager Relationship Specialty Start Date End Date Freddie Delgado [address] [place] [address] PCP - General Family Medicine 12/19/23 Retail Account Manager Relationship Specialty Start Date End Date Freddie Delgado CNP [address] [place] [address] PCP - General Family Medicine 12/19/23 Retail Account Manager Relationship Specialty Start Date End Date Freddie Delgado CNP [address] [place] [address] PCP - General Family Medicine 12/19/23 Retail Account Manager Relationship Specialty Start Date End Date Freddie Delgado CNP [address] [place] [address] PCP - General Family Medicine 12/19/23 Goals [...] or prosecute any alcohol or drug abuse patient.[facility] the event this information is protected by the Federal Confidentiality of Alcohol and Drug Abuse Patient Records regulations: The Federal rules restrict any use of the information to criminally investigate or prosecute any alcohol or drug abuse patient.[facility] Center[facility] the event this information is protected by the Federal Confidentiality of Alcohol and Drug Abuse Patient Records regulations: The Federal rules restrict any use of the information to criminally investigate or prosecute any alcohol or drug abuse patient.[facility] Center[facility] the event this information is protected by the Federal Confidentiality of Alcohol and Drug Abuse Patient Records regulations: The Federal rules restrict any use of the information to criminally investigate or prosecute any alcohol or drug abuse patient.[facility] Center[facility] the event this information is protected by the Federal Confidentiality of Alcohol and Drug Abuse Patient Records regulations: The Federal rules restrict any use of the information to criminally investigate or prosecute any alcohol or drug abuse patient.[facility] Center[facility] the event this information is protected by the Federal Confidentiality of Alcohol and Drug Abuse Patient Records regulations: The Federal rules restrict any use of the information to criminally investigate or prosecute any alcohol or drug abuse patient.[facility] Center[facility] the event this information is protected by the Federal Confidentiality of Alcohol and Drug Abuse Patient Records regulations: The Federal rules restrict any use of the information to criminally investigate or prosecute any alcohol or drug abuse patient.[facility] CenterIn the event this information is protected by the Federal Confidentiality of Alcohol and Drug Abuse Patient Records regulations: The Federal rules restrict any use of the information to criminally investigate or prosecute any alcohol or drug abuse patient.[facility] CenterIn the event this information is protected by the Federal Confidentiality of Alcohol and Drug Abuse Patient Records regulations: The Federal rules restrict any use of the information to criminally investigate or prosecute any alcohol or drug abuse patient.[facility] Center[facility] the event this information is protected by the Federal Confidentiality of Alcohol and Drug Abuse Patient Records regulations: The Federal rules restrict any use of the information to criminally investigate or prosecute any alcohol or drug abuse patient.[facility] CenterIn the event this information is protected by the Federal Confidentiality of Alcohol and Drug Abuse Patient Records regulations: The Federal rules restrict any use of the information to criminally investigate or prosecute any alcohol or drug abuse patient.[facility] CenterIn the event this information is protected by the Federal Confidentiality of Alcohol and Drug Abuse Patient Records regulations: The Federal rules restrict any use of the information to criminally investigate or prosecute any alcohol or drug abuse patient.[facility] CenterIn the event this information is protected by the Federal Confidentiality of Alcohol and Drug Abuse Patient Records regulations: The Federal rules restrict any use of the information to criminally investigate or prosecute any alcohol or drug abuse patient.[facility] CenterIn the event this information is protected by the Federal Confidentiality of Alcohol and Drug Abuse Patient Records regulations: The Federal rules restrict any use of the information to criminally investigate or prosecute any alcohol or drug abuse patient.[facility] CenterIn the event this information is protected by the Federal Confidentiality of Alcohol and Drug Abuse Patient Records regulations: The Federal rules restrict any use of the information to criminally investigate or prosecute any alcohol or drug abuse patient.[facility] CenterIn the event this information is protected by the Federal Confidentiality of Alcohol and Drug Abuse Patient Records regulations: The Federal rules restrict any use of the information to criminally investigate or prosecute any alcohol or drug abuse patient.[facility] FOR RECORDS PERTAINING TO PATIENTS [...] BE BASED ON THE PRIMARY CLINICAL RECORDS. [facility] [employer] [facility]. provides no warranty or guarantee of the accuracy or completeness of information in this document.
[2024-03-06 14:56] VITALS: BP 122/70; PULSE 92
== END 2024-03-06 15:19 | disposition home or self-care (01) ==
LOC: FBCO 07:07 → FBC 14:53
PROVIDERS: Visit Provider Obstetrics & Gynecology
DX: O36.63X0 Maternal care for excessive fetal growth, third trimester, not applicable or unspecified (principal)
CPT/HCPCS: 59025

== ENCOUNTER 2024-03-10 07:12 | Outpatient (OUT) | payer MEDICAID, SELFPAY ==
--- OUTSIDE RECORDS SUMMARY | 2024-03-10 07:15 | XMS_ITS | CCD ---
Author Organization [facility] Care Team Providers Care Core Maker Name Role Phone Gehlot, Upender Unavailable Unavailable Gehlot, Upender Unavailable Unavailable EMPERATRIZ CERNA Unavailable Unavailable Sally Morejon Primary Care Provider Unavailable Primary Care Provider UnavailCANDACE Dubon Referring Unavailable Sally Morejon Primary Care Provider [phone] Sally Morejon CNP Primary Care Provider [phone] Shayla Valle Unavailable JUMANA Valle Attending Provider [phone] AICHHOLZ, MANAGER BENCH VITO Admitting Unavailable AICHHOLZ, MANAGER BENCH VITO Attending Unavailable AICHHOLZ, MANAGER BENCH VITO Primary Care Unavailable AICHHOLZ, MANAGER BENCH VITO Consulting Unavailable NORMA ., DR JIN Admitting Unavailable NORMA ., DR JIN Attending Unavailable AICHHOLZ, MANAGER BENCH VITO Primary Care Unavailable NORMA ., DR JIN Consulting Unavailable RONAK, DR BOBBI Bianchi Consulting Unavailable NORMA ., DR JIN Admitting Unavailable NORMA ., DR JIN Attending Unavailable AICHHOLZ, MANAGER BENCH VITO Primary Care Unavailable NORMA ., DR JIN Consulting Unavailable ZIEBDEANNE, DR BOBBI Bianchi Consulting Unavailable NORMA ., DR JIN Admitting Unavailable NORMA ., DR JIN Attending Unavailable AICHHOLZ, MANAGER BENCH VITO Primary Care Unavailable NORMA ., DR JIN Consulting Unavailable AICHHOLZ, MANAGER BENCH VITO Admitting Unavailable AICHHOLZ, MANAGER BENCH VITO Attending Unavailable AICHHOLZ, MANAGER BENCH VITO Primary Care Unavailable NORMA ., DR JIN Admitting Unavailable NORMA ., DR JIN Attending Unavailable AICHHOLZ, MANAGER BENCH VITO Primary Care Unavailable NORMA ., DR JIN Consulting Unavailable NORMA ., DR JIN Admitting Unavailable NORMA ., DR JIN Attending Unavailable AICHHOLZ, MANAGER BENCH VITO Primary Care Unavailable NORMA ., DR JIN Consulting Unavailable AGUBOSIMWADE Consulting Unavailable SOFI XIAO Consulting Unavailable NORMA ., DR JIN Admitting Unavailable NORMA ., DR JIN Attending Unavailable AICHHOLZ, MANAGER BENCH VITO Primary Care Unavailable NORMA ., DR JIN Consulting Unavailable AICHHOLZ, MANAGER BENCH VITO Admitting Unavailable AICHHOLZ, MANAGER BENCH VITO Attending Unavailable AICHHOLZ, MANAGER BENCH VITO Primary Care Unavailable WEST, DR JO-ANN Nicolas Consulting Unavailable AICHHOLZ, MANAGER BENCH VITO Consulting Unavailable Yoel Jarrett Unavailable MD Karan Romero Attending Provider [phone] NON STAFF Primary Care Provider Unavailabl e NON STAFF Primary Care Unavailable Karan Romero Attending Unavailabl Karan Osuna Admitting Unavailabl e Shayla Valle Attending Unavailable Shayla Valle Admitting Unavailable Delgado BINGO USHER-MANAGER BENCH, Freddie Primary Care Provider Unavailable Primary Care [...] Attending Unavailable NORMA, ELIAZAR R Referring Unavailable DELAGDO, FREDDIE Primary Care Unavailable ADILENE CESPEDES Attending Unavailable NORMA, ELIAZAR R Referring Unavailable DELGADO, FREDDIE Primary Care Unavailable NORMA, ELIAZAR R Referring Unavailable DELGADO, FREDDIE Primary Care Unavailable CANDACE MORAN Admitting Unavailable DEANCANDACE Attending Unavailable DELGADO, FREDDIE Primary Care Unavailable GURJIT ROBIN Referring Unavailable DELGADO, FREDDIE Primary Care Unavailable ROJAS, FIDENCIO Referring Unavailable DELGADO, FREDDIE Primary Care Unavailable Delgado MANAGER BENCH, Freddie Adrian Primary Care Provid er ABHYANKAR, USMAN Referring Unavailable DELGADO, FREDDEI ADRIAN Primary Care Unavail able ABHYANKAR, USMAN Referring Unavailable DELGADO, FREDDIE ADRIAN Primary Care Unavail able BAIMICHAELLET, ANA Attending Unavailable BAILIT, ANA Referring Unavailable DELGADO, FREDDIE ADRIAN Primary Care Unavail able DELGADO, FREDDIE ADRIAN Primary Care Unavail able ABHYANKAR, USMAN Attending Unavailable TUFARO, FRANSICO Attending Unavailable DELGADO, FREDDIE ADRIAN Primary Care Unavail able BAILIT, ANA Attending Unavailable TUFARO, FRANSICO Referring Unavailable DELGADO, FREDDIE ADRIAN Primary Care Unavail able BAILIT, ANA Attending Unavailable DELGADO, FREDDIE ADRIAN Primary Care Unavail able NORMA, ELIAZAR Attending Unavailable BRONWYN, DIONNE Attending Unavailable NORMA, ELIAZAR Attending Unavailable NORMA, ELIAZAR Attending Unavailable BRONWYN, DIONNE Attending Unavailable NORMA, ELIAZAR Attending Unavailable NORMA, ELIAZAR Attending Unavailable NORMA, ELIAZAR Attending Unavailable Allergies Allergy Classification Reported Allergen(s) Allergy Type Date of Onset Reaction(s) Facility Penicillins (antibiotic) (1 source) Penicillins Drug Allergy 2 Unknown [facility] (13 sources) Penicillins (Antibiotic) Allergy to substance 9 [facility] Work Phone: (8 sources) [facility] (6 sources) Penicillin G Drug Allergy 3 [facility] Work Phone: (1 source) Penicillin Drug Allergy [facility] Repository (6 sources) Penicillins; Translations: [PENICILLINS] Drug allergy (disorder) 2 [facility] Repository (20 sources) Penicillins Propensity to adverse reactions to drug 2 Other (See Comments), Unknown [facility] (3 sources) Penicillins Drug Allergy 2 Unknown [facility] Medications Current Medications Medication Drug Class(es) Dates Sig (Normalized) Sig (Original) [id number] 200 actuat albuterol 0.09 mg/actuat metered dose [...] mg oral tablet (2 sources) Aminoketone Start: 3 take 150 mg by mouth once daily Bupropion Hcl Active 150 MG PO Daily March 16, 2023 12:00am take 1 tablet by leda th every twenty-four hours Wellbutrin XL 150 MG 1 tablet in the morning Orally Once a day Active Crutches Underarm Crutches (1 source) Start: 02-07-2023 Crutches Underarm Crutches January, Active diphenhydrAMINE (16 sources) Histamine-1 Receptor Antagonist Start: 12-10-2023 diphenhydramine [...] Take 400 mg by mouth . nystatin [id number] unt/ml oral suspension (1 source) Polyene Antifungal Start: 05-29-2023 take 5 mL by mouth three times daily Nystatin [id number] UNIT/ML 5 ml Mouth/Throat 3 times a [...] 16, 2023 12:00am omeprazole magne sium (ACID MACHINE ADJUSTER LEADER, OMEPRAZOLE, ORAL) Take by mouth as directed. [...] Active PNV no.95/ferrous fum/folic ac ( ORAL) (17 sources) PNV no.95/ferrou s fum/folic ac ( ORAL) Take by mouth as directed. 0 Active Comment on above: Take by mouth as dir ected. -tihv-vyamu- omega3 29-1-400 mg combo pack,tablet & capDR (9 sources) ktlpvhay97-wnve- folic -omega3 29-1-400 mg combo pack,tablet & [...] MG Oral Tablet 03/29/2020 Provider: Candace Grossman MANAGER BENCH Start: 03-29-2020 traZODone HCl 150 MG Oral [...] mg/ml oral solution (4 sources) Phenothiazine, Uncompetitive U-mjamtg-G-aspartat e Receptor Antagonist, Sigma-1 Agonist Start: 01-08-2020 [...] type] Onset: 02-13-2023 02-13-2023 Chronic Esophageal disorders (19 sources) Gastroesophageal reflux disease; Translations: [Gastro-esophageal reflux disease without esophagitis] Onset: 03-19-2023 Chronic Headache; including migraine (14 sources) Chronic cluster headache; Translations: [Chronic cluster [...] 01-14-2024 Episodic Other non-epithelial cancer of skin (14 sources) Malignant neoplasm of skin; Translations: [Unspecified [...] Onset: 05-26-2022 Chronic Other conditions (1 source) [place] affected by other morphological and functional abnormalities [...] or without hemorrhage, second trimester] Onset: 11-20-2023 Resolved: 03-06-2024 11-20-2023 Episodic Mood disorders (11 sources) Major depressive disorder, single episode, unspecified; Translations: [Mood disorders] Onset: 03-29-2020 09-10-2023 Other complications of (5 sources) Missed ; Translations: [MISSED ] Onset: 05-22-2022 Episodic Other complications of (1 source) Blighted ovum and nonhydatidiform mole; Translations: [BLIGHTED OVUM NONHYDATIDIFORM MOLE] Onset: 05-29-2022 Episodic Other complications of (15 sources) Elderly primigravida; Translations: [Supervision of elderly [...] Test Name Value Interpretation Reference Range Facility [facility][id number]) 1990 F Date Time Provider Department 03/04/24 DAISY MURRAY HEMMICHELLE During your visit today, we recorded the following information about you: Daisy Murray RN 03/04/2024 3:58 PM Signed Pt requesting CT results Louisa: Please review and advise BRITNEY Hernandez Vivek, MD 03/05/2024 9:00 AM Signed I think I already communicated that with her - CT's were negative for any metastatic disease. Daisy Murray RN 03/05/2024 9:23 AM Signed Pt updated Daisy Murray RN Allergies As of Date: 03/04/2024 Noted Allergy Reaction PENICILLINS 04/05/2022 16 - Unknown Comments: unknown Other Reaction(s): Unknown Reaction Date Reviewed: 01/21/2024 Reviewed by: Reji Manning RN - Fully Assessed Reason for Visit: Results [95] Prescriptions as of 03/05/2024 - diphenhydramine HCl (UNISOM, DIPHENHYDRAMINE, ORAL) - [...] mg by mouth. - omeprazole magnesium (ACID MACHINE ADJUSTER LEADER, OMEPRAZOLE, ORAL) Take by mouth as directed. - PNV no.95/ferrous fum/folic ac ( ORAL) Take by mouth as directed. Problem List As Of Date 03/04/2024 Noted Resolved AMA (advanced maternal age) primigravida 35+, u*10/08/2023 Bipolar disorder (HCC) [F31.9] 01/21/2024 Chronic cluster headache [G44.029] 01/21/2024 GERD (gastroesophageal reflux disease) [K21.9] 01/21/2024 Mild intermittent asthma without complication [*02/13/2023 Placenta previa antepartum in second trimester *11/20/2023 Skin cancer [C44.90] 01/21/2024 Encounter Status:Closed by DAISY MURRAY on 03/05/24 [facility] Alina 02-29-2024 PRADEEPN Telephone (PLASMN) VY MCKEON ([id number]) 1990 F Date Time Provider Department 02/29/24 FRANSIOC SHARP During your visit today, we recorded the following information about you: Ayala Nunez 02/29/2024 3:26 PM Signed Pt calling in to cancel surgery on 03/14 and pre op appointment. Can you call her back? Thank you Surjit Griggs RN 03/03/2024 1:47 PM Signed Spoke to patient [...] BRITNEY - Fully Assessed Reason for Visit: Surgery [...] mg by mouth. - omeprazole magnesium (ACID MACHINE ADJUSTER LEADER, OMEPRAZOLE, ORAL) Take by mouth as directed. [...] Encounter Status:Closed by SURJIT GRIGGS on 03/03/24 Normal [facility] CNPNon 02-26-2024 CNPN Telephone (HEMASA) VY MCKEON ([id number]) 1990 F Date Time Provider Department 02/26/24 [...] mg by mouth. - omeprazole magnesium (ACID MACHINE ADJUSTER LEADER, OMEPRAZOLE, ORAL) Take by mouth as directed. [...] Encounter Status:Closed by SYLVIA ALCALA on 02/26/24 [facility] CT CHEST W IVCONon CT CHEST W IVCON * * *Final Report* * * DATE OF EXAM: Feb 22 2024 11:19AM [facility] 0539 - CT CHEST W [...] abdomen: Visualized upper abdomen is grossly unremarkable. Oncology Social Worker (topogram) images: Unremarkable. IMPRESSION: Focal groundglass opacity [...] any questions regarding this interpretation, please call [phone]. If you are unable to reach us at the number above, please feel free to contact [facility]Radiology at [phone]. [id number] N Normal [facility] CT NECK SOFT TISSUE W IVCONo n 02-22-2024 CT NECK SOFT TISSUE W IVCON * * *Final Report* * * DATE OF EXAM: Feb 22 2024 11:19AM [facility] 0013 - CT NECK SOFT [...] amalgam. Parotid and submandibular spaces are normal. Nascar Racer spaces appear normal. Infrahyoid Neck: Hypopharynx, larynx, [...] any questions regarding this interpretation, please call [phone]. If you are unable to reach us at the number above, please feel free to contact [facility] eRadiology at [phone]. [id number] N Normal [facility] CBC W Auto Differential pane l (Bld)on 02-20-2024 Basophils (Bld) [#/Vol] 0.03 10*3/uL Normal <0.11 [facility] Comment on above: Order Comment: Speci men Type: BLOOD SPECIMENOrdering Facility: [facility] Address: [address] [place] [address] [place] [address] Performed By: #### 5 7021-8 ####[facility] LABCLIA [id number] [place] [address] Basophils/100 WBC (Bld) 0.3 % Normal [facility] Comment on above: Order Comment: Speci men Type: BLOOD SPECIMENOrdering Facility: [facility] Address: [address] [place] [address] Performed By: #### 5 7021-8 ####[facility] LABCLIA [id number] [place] [address] Differential cell count method Nom (Bld) Auto Normal [facility] Comment on above: Order Comment: Speci men Type: BLOOD SPECIMENOrdering Facility: [facility] Address: [address] [place] [address] Performed By: #### 5 7021-8 ####[facility] LABCLIA [id number] [place] [address] Eosinophils (Bld) [#/Vol] 0.08 10*3/uL Normal <0.46 [facility] Comment on above: Order Comment: Speci men Type: BLOOD SPECIMENOrdering Facility: [facility] Address: [address] [place] [address] Performed By: #### 5 7021-8 ####[facility] LABCLIA [id number] [place] [address] Eosinophils/100 WBC (Bld) 0.8 % Normal [facility] Comment on above: Order Comment: Speci men Type: BLOOD SPECIMENOrdering Facility: [facility] Address: [address] [place] [address] Performed By: #### 5 7021-8 ####[facility] LABCLIA [id number] [place] [address] Erythrocyte distribution width (RBC) [Ratio] 13.5 % Normal 11.5-15.0 [facility] Comment on above: Order Comment: Speci men Type: BLOOD SPECIMENOrdering Facility: [facility] Address: [address] [place] [address] Performed By: #### 5 7021-8 ####[facility] LABCLIA [id number] [place] [address] Hematocrit (Bld) [Volume fraction] 33.4 % Low 36.0-46.0 [facility] Comment on above: Order Comment: Speci men Type: BLOOD SPECIMENOrdering Facility: [facility] Address: [address] [place] [address] Performed By: #### 5 7021-8 ####[facility] LABCLIA [id number] [place] [address] Hemoglobin (Bld) [Mass/Vol] 11.2 g/dL Low 11.5-15.5 [facility] Comment on above: Order Comment: Speci men Type: BLOOD SPECIMENOrdering Facility: [facility] Address: [address] [place] [address] Performed By: #### 5 7021-8 ####[facility] LABIA [id number] [place] [address] Immature granulocytes (Bld) [#/Vol] 0.07 10*3/uL Normal <0.10 [facility] Comment on above: Order Comment: Speci men Type: BLOOD SPECIMENOrdering Facility: [facility] Address: [address] [place] [address] Performed By: #### 5 7021-8 ####[facility] LABCLIA [id number] [place] [address] Immature granulocytes/100 WBC (Bld) 0.7 % Normal [facility] Comment on above: Order Comment: Speci men Type: BLOOD SPECIMENOrdering Facility: [facility] Address: [address] [place] [address] Performed By: #### 5 7021-8 ####[facility] LABCLIA [id number] [place] [address] Lymphocytes (Bld) [#/Vol] 1.13 10*3/uL Normal 1.00-4.00 [facility] Comment on above: Order Comment: Speci men Type: BLOOD SPECIMENOrdering Facility: [facility] Address: [address] [place] [address] Performed By: #### 5 7021-8 ####[facility] LABCLIA [id number] [place] [address] Lymphocytes/100 WBC (Bld) 10.7 % Normal [facility] Comment on above: Order Comment: Speci men Type: BLOOD SPECIMENOrdering Facility: [facility] Address: [address] [place] [address] Performed By: #### 5 7021-8 ####[facility] LABCLIA [id number] [place] [address] MCH (RBC) [Entitic mass] 29.5 pg Normal 26.0-34.0 [facility] Comment on above: Order Comment: Speci men Type: BLOOD SPECIMENOrdering Facility: [facility] Address: [address] [place] [address] Performed By: #### 5 7021-8 ####[facility] LABCLIA [id number] [place] [address] MCHC (RBC) [Mass/Vol] 33.5 g/dL Normal 30.5-36.0 [facility] Comment on above: Order Comment: Speci men Type: BLOOD SPECIMENOrdering Facility: [facility] Address: [address] [place] [address] Performed By: #### 5 7021-8 ####[facility] LABCLIA [id number] [place] [address] MCV (RBC) [Entitic vol] 87.9 fL Normal 80.0-100.0 [facility] Comment on above: Order Comment: Speci men Type: BLOOD SPECIMENOrdering Facility: [facility] Address: [address] [place] [address] Performed By: #### 5 7021-8 ####[facility] LABCLIA [id number] [place] [address] Monocytes (Bld) [#/Vol] 0.52 10*3/uL Normal <0.87 [facility] Comment on above: Order Comment: Speci men Type: BLOOD SPECIMENOrdering Facility: [facility] Address: [address] [place] [address] Performed By: #### 5 7021-8 ####[facility] LABCLIA [id number] [place] [address] Monocytes/100 WBC (Bld) 4.9 % Normal [facility] Comment on above: Order Comment: Speci men Type: BLOOD SPECIMENOrdering Facility: [facility] Address: [address] [place] [address] Performed By: #### 5 7021-8 ####[facility] LABCLIA [id number] [place] [address] Neutrophils (Bld) [#/Vol] 8.76 10*3/uL High 1.45-7.50 [facility] Comment on above: Order Comment: Speci men Type: BLOOD SPECIMENOrdering Facility: [facility] Address: [address] [place] [address] Performed By: #### 5 7021-8 ####[facility] LABCLIA [id number] [place] [address] Neutrophils/100 WBC (Bld) 82.6 % Normal [facility] Comment on above: Order Comment: Speci men Type: BLOOD SPECIMENOrdering Facility: [facility] Address: [address] [place] [address] Performed By: #### 5 7021-8 ####[facility] LABCLIA [id number] [place] [address] Nucleated RBC (Bld) [#/Vol] 10*3/uL Normal <0.01 [facility] Comment on above: Order Comment: Speci men Type: BLOOD SPECIMENOrdering Facility: [facility] Address: [address] [place] [address] Performed By: #### 5 7021-8 ####[facility] LABCLIA [id number] [place] [address] Nucleated RBC/100 WBC (Bld) [Ratio] 0.0 /100 WBC Normal [facility] Comment on above: Order Comment: Speci men Type: BLOOD SPECIMENOrdering Facility: [facility] Address: [address] [place] [address] Performed By: #### 5 7021-8 ####[facility] LABIA [id number] [place] [address] Platelet mean volume (Bld) [Entitic vol] 10.0 fL Normal 9.0-12.7 [facility] Comment on above: Order Comment: Speci men Type: BLOOD SPECIMENOrdering Facility: [facility] Address: [address] [place] [address] Performed By: #### 5 7021-8 ####[facility] LABIA [id number] [place] [address] Platelets (Bld) [#/Vol] 199 10*3/uL Normal 150-400 [facility] Comment on above: Order Comment: Speci men Type: BLOOD SPECIMENOrdering Facility: [facility] Address: [address] [place] [address] Performed By: #### 5 7021-8 ####[facility] LABIA [id number] [place] [address] RBC (Bld) [#/Vol] 3.80 10*6/uL Low 3.90-5.20 [facility] Comment on above: Order Comment: Speci men Type: BLOOD SPECIMENOrdering Facility: [facility] Address: [address] [place] [address] Performed By: #### 5 7021-8 ####[facility] LABCLIA [id number] [place] [address] WBC (Bld) [#/Vol] 10.59 10*3/uL Normal 3.70-11.00 [facility] Comment on above: Order Comment: Speci men Type: BLOOD SPECIMENOrdering Facility: [facility] Address: [address] [place] [address] Performed By: #### 5 7021-8 ####[facility] LABCLIA [id number] [place] [address] Comprehensive metabolic 2000 panelon 02-20-2024 Albumin [Mass/Vol] 3.8 g/dL Low 3.9-4.9 [facility] Comment on above: Order Comment: Speci men Type: BLOOD SPECIMENOrdering Facility: [facility] Address: [address] [place] [address] Performed By: #### 2 4323-8, 2532-0 ####[facility] LABCLIA [id number] [place] [address] ALP [Catalytic activity/Vol] 161 U/L High 34-123 [facility] Comment on above: Order Comment: Speci men Type: BLOOD SPECIMENOrdering Facility: [facility] Address: [address] [place] [address] Performed By: #### 2 4323-8, 2532-0 ####[facility] LABCLIA [id number] [place] [address] ALT [Catalytic activity/Vol] 13 U/L Normal 7-38 [facility] Comment on above: Order Comment: Speci men Type: BLOOD SPECIMENOrdering Facility: [facility] Address: [address] [place] [address] Performed By: #### 2 4323-8, 2532-0 ####[facility] LABCLIA [id number] [place] [address] Anion gap [Moles/Vol] 10 mmol/L Normal 9-18 [facility] Comment on above: Order Comment: Speci men Type: BLOOD SPECIMENOrdering Facility: [facility] Address: [address] [place] [address] Performed By: #### 2 4323-8, 2531-0 ####[facility] LABCLIA [id number] [place] [address] AST [Catalytic activity/Vol] 21 U/L Normal 13-35 [facility] Comment on above: Order Comment: Speci men Type: BLOOD SPECIMENOrdering Facility: [facility] Address: [address] [place], [place] [address] Performed By: #### 2 4323-8, 2531-0 ####[facility] LABCLIA [id number] [place] [address] Bilirubin [Mass/Vol] 0.2 mg/dL Normal 0.2-1.3 [facility] Comment on above: Order Comment: Speci men Type: BLOOD SPECIMENOrdering Facility: [facility] Address: [address] [place] [address] Performed By: #### 2 4323-8, 2531-0 ####[facility] LABIA [id number] [place] [address] Calcium [Mass/Vol] 10.1 mg/dL Normal 8.5-10.2 [facility] Comment on above: Order Comment: Speci men Type: BLOOD SPECIMENOrdering Facility: [facility] Address: [address] [place] [address] Performed By: #### 2 4323-8, 2531-0 ####[facility] LABIA [id number] [place] [address] Chloride [Moles/Vol] 103 mmol/L Normal 97-105 [facility] Comment on above: Order Comment: Speci men Type: BLOOD SPECIMENOrdering Facility: [facility] Address: [address] [place] [address] Performed By: #### 2 4328, ####[facility] LABCLIA [id number] [place] [address] CO2 [Moles/Vol] 21 mmol/L Low 22-30 [facility] Comment on above: Order Comment: Speci men Type: BLOOD SPECIMENOrdering Facility: [facility] Address: [address] [place] [address] Performed By: #### 2 43212-06, ####[facility] LABCLIA [id number] [place] [address] Creatinine [Mass/Vol] 0.61 mg/dL Normal 0.58-0.96 [facility] Comment on above: Order Comment: Speci men Type: BLOOD SPECIMENOrdering Facility: [facility] Address: [address] [place] [address] Performed By: #### 2 43212-06, ####[facility] LABIA [id number] [place] [address] Creatinine and Glomerular filtration rate.predicted panel (S/P/Bld) 120 mL/min/1.73m??? Normal >=60 [facility] Comment on above: Order Comment: Speci men Type: BLOOD SPECIMENOrdering Facility: [facility] Address: [address] [place] [address] Result Comment: Araseli mated Glomerular Filtration Rate [...] reflect actual GFR. Performed By: #### 2 4328, ####[facility] LABIA [id number] [place] [address] Glucose [Mass/Vol] 85 mg/dL Normal 74-99 [facility] Comment on above: Order Comment: Speci men Type: BLOOD SPECIMENOrdering [facility]: [facility] Address: [address] [place], [place] [address] Result Comment: The [place] [employer] (ADA) provides guidance for cutoff [...] Standards of Medical Care in Diabetes 2016, [place] [employer]. Diabetes Care. 2016.39(Suppl 1). Performed By: #### 2 4323-8, 0 ####[facility] LABCLIA [id number] [place] [address] Potassium [Moles/Vol] 3.9 mmol/L Normal 3.7-5.1 [facility] Comment on above: Order Comment: Speci men Type: BLOOD SPECIMENOrdering Facility: [facility] Address: [address] [place] [address] Performed By: #### 2 4323-8, ####[facility] LABCLIA [id number] [place] [address] Protein [Mass/Vol] 7.2 g/dL Normal 6.3-8.0 [facility] Comment on above: Order Comment: Speci men Type: BLOOD SPECIMENOrdering Facility: [facility] Address: [address] [place] [address] Performed By: #### 2 4323-8, 0 ####[facility] LABCLIA [id number] [place] [address] Sodium [Moles/Vol] 134 mmol/L Low 136-144 [facility] Comment on above: Order Comment: Speci men Type: BLOOD SPECIMENOrdering Facility: [facility] Address: [address] [place], [place] [address] Performed By: #### 2 4323-8, 2531-0 ####[facility] LABCLIA [id number] [place] [address] Urea nitrogen [Mass/Vol] 6 mg/dL Low 7-21 [facility] Comment on above: Order Comment: Speci men Type: BLOOD SPECIMENOrdering Facility: [facility] Address: [address] [place] [address] Performed By: #### 2 4323-8, 253-0 ####[facility] LABCLIA [id number] [place] [address] LDH SerPl-cCncon 02-20-2024 LDH [Catalytic activity/Vol] 210 U/L Normal 135-214 [facility] Comment on above: Order Comment: Speci men Type: BLOOD SPECIMENOrdering Facility: [facility] Address: [address] [place] [address] Performed By: #### 2 4323-8, 2531-0 ####[facility] LABCLIA [id number] [place] [address] COMPLETE BLOOD COUNTon 01-28 Erythrocyte distribution width (RBC) [Ratio] 13.6 % Normal 11.5-15.0 [facility] Comment on above: Performed By: #### C NATASHA MESSER, 0, 3083-10 #### [facility] ([id number]) [address] [place] [address] Hematocrit (Bld) [Volume fraction] 29.4 % Low 35-47 [facility] Comment on above: Performed By: #### C NATASHA MESSER, 0, 3081 #### [facility] ([id number]) [address] [place] [address] Hemoglobin (Bld) [Mass/Vol] 10.4 g/dL Low 11.7-15.5 [facility] Comment on above: Performed By: #### C GUI CMP, 253-0, 3083-10 #### [facility] ([id number]) [address] [place] [address] MCH (RBC) [Entitic mass] 31.0 pg Normal 27-34 [facility] Comment on above: Performed By: #### Adri MESSER CMP, 2531-0, 3083-10 #### [facility] ([id number]) [address] [place] [address] MCHC (RBC) [Mass/Vol] 35.3 g/dL Normal 32-36 [facility] Comment on above: Performed By: #### Adri MESSER CMP, 253-0, 3083-10 #### [facility] ([id number]) [address] [place] [address] MCV (RBC) [Entitic vol] 88 fL Normal 80-100 [facility] Comment on above: Performed By: #### Adri MESSER CMP, 0, 3083-10 #### [facility] ([id number]) [address] [place] [address] Platelet mean volume (Bld) [Entitic vol] 8.1 fL Normal 7-12 [facility] Comment on above: Performed By: #### Adri MESSER CMP, 0, 3083-10 #### [facility] ([id number]) [address] [place] [address] Platelets (Bld) [#/Vol] 205 10*3/uL Normal 150-450 [facility] Comment on above: Performed By: #### Adri MESSER CMP, 253-0, 3083-10 #### [facility] ([id number]) [address] [place] [address] RBC COUNT 3.34 X10E12/L Low 3.80-5.20 [facility] Comment on above: Performed By: #### C BC, CMP, 2532-0, 3084-1 #### [facility] ([id number]) [address] [place] [address] WBC (Bld) [#/Vol] 8.2 10*3/uL Normal 4.0-11.0 [facility] Comment on above: Performed By: #### C BC, CMP, 2532-0, 3083-1 #### [facility] ([id number]) [address] [place] [address] COMPREHENSIVE METABOLIC PANE Joel 01-29-2024 Albumin [Mass/Vol] 2.8 g/dL Low 3.2-5.3 [facility] Comment on above: Performed By: #### C BC, CMP, 253-0, 3083-1 #### [facility] ([id number]) [address] [place] [address] ALP [Catalytic activity/Vol] 103 U/L Normal 39-130 [facility] Comment on above: Performed By: #### C BC, CMP, 2532-0, 308-1 #### [facility] ([id number]) [address] [place] [address] ALT [Catalytic activity/Vol] 16 U/L Normal 0-31 [facility] Comment on above: Performed By: #### C BC, CMP, 2532-0, 308-1 #### [facility] ([id number]) [address] [place] [address] Anion gap [Moles/Vol] 9 mmol/L Normal 5-15 [facility] Comment on above: Performed By: #### C BC, CMP, 2532-0, 3084-1 #### [facility] ([id number]) [address] [place] [address]5536 AST [Catalytic activity/Vol] 18 U/L Normal 0-41 [facility] Comment on above: Performed By: #### Adri MESSER CMP, 0, 3083-10 #### [facility] ([id number]) [address] [place] [address] Bilirubin [Mass/Vol] 0.3 mg/dL Normal 0.3-1.2 [facility] Comment on above: Performed By: #### Adri MESSER CMP, 0, 3083-10 #### [facility] ([id number]) [address] [place] [address] Calcium [Mass/Vol] 9.2 mg/dL Normal 8.5-10.5 [facility] Comment on above: Performed By: #### Adri MESSER CMP, 0, 3083-10 #### [facility] ([id number]) [address] [place] [address]494 Chloride [Moles/Vol] 105 mmol/L Normal 98-109 [facility] Comment on above: Performed By: #### Adri MESSER CMP, 0, 3083-10 #### [facility] ([id number]) [address] [place] [address]1872 CO2 [Moles/Vol] 22 mmol/L Normal 22-32 [facility] Comment on above: Performed By: #### Adri MESSER CMP, 0, 3083-10 #### [facility] ([id number]) [address] [place] [address]103 Creatinine [Mass/Vol] 0.51 mg/dL Normal 0.40-1.00 [facility] Comment on above: Result Comment: METH OD TRACEABLE TO IDMS STANDARD Performed By: #### Adri MESSER CMP, 0, 3083-10 #### [facility] ([id number]) [address] [place] [address]133 eGFR (CKD-EPI) NON-RACE DEPENDENT >90 Normal >59 [facility] Comment on above: Result Comment: Reported eGFR is based on the CKD-EPI 2020 equation that does not use a race coefficient. Performed By: #### Adri MESSER CMP, 2532-0, 3083- #### [facility] ([id number]) [address] [place] [address]298 Glucose [Mass/Vol] 96 mg/dL Normal 65-99 [facility] Comment on above: Performed By: #### Adri MESSER CMP, 0, 3083- #### [facility] ([id number]) [address] [place] [address]1977 Potassium [Moles/Vol] 4.1 mmol/L Normal 3.5-5.0 [facility] Comment on above: Performed By: #### Adri MESSER CMP, 0, 3083-10 #### [facility] ([id number]) [address] [place] [address] 93535 Protein [Mass/Vol] 6.5 g/dL Normal 6.0-8.0 [facility] Comment on above: Performed By: #### Adri MESSER CMP, 2530, 3083-10 #### [facility] ([id number]) [address] [place] [address]20 Sodium [Moles/Vol] 136 mmol/L Normal 134-146 [facility] Comment on above: Performed By: #### Adri MESSER CMP, 0, 3083-10 #### [facility] ([id number]) [address] [place] [address] 89489 Urea nitrogen [Mass/Vol] 5 mg/dL Normal 5-23 [facility] Comment on above: Performed By: #### Adri MESSER CMP, 253-0, 3083- #### [facility] ([id number]) [address] [place] [address] 23242 LDH [Catalytic activity/Vol] on 01-29-2024 LDH 128 U/L Normal 100-235 [facility] Comment on above: Performed By: #### C GUI, [facility], 2532-0, 3084-1 #### [facility] ([id number]) [address] [place] [address] 11711 PROTEIN CREAT RATIOon 2023 RANDOM URINE PROTEIN 30 mg/L Normal <120 [facility] Comment on above: Performed By: #### U PCR #### [facility] ([id number]) [address] [place] [address] 89220 U/PRO/DESK LIEUTENANT RATIO CALC 0.12 Normal <0.2 [facility] Comment on above: Result Comment: Neph rotic Syndrome is associated with ratios >3.5 Performed By: #### U PCR #### [facility] ([id number]) [address] [place] [address] 92670 URINE CREATININE,RDM 25.84 mg/dL Normal [facility] Comment on above: Performed By: #### U PCR #### [facility] ([id number]) [address] [place] [address] 45416 URIC ACIDon 01-29-2024 Urate [Mass/Vol] 4.1 mg/dL Normal 2.6-7.2 [facility] Comment on above: Performed By: #### C GUI, [facility], 2532-0, 3084-1 #### [facility] ([id number]) [address] [place] [address]647 Alina 01-25-2024 PRADEEPN Telephone (REGGIE) VY MCKEON ([id number]) 1990 F Date Time Provider Department 01/25/24 [...] mg by mouth. - omeprazole magnesium (ACID MACHINE ADJUSTER LEADER, OMEPRAZOLE, ORAL) Take by mouth as directed. [...] Status:Closed by CYNTHIA PETTY on 01/25/24 Normal [facility] CNPNon 01-22-2024 CNPN Telephone (HEMASA) VY MCKEON ([id number]) 1990 F Date Time Provider Department 01/22/24 [...] as far as I am concerned. MD Louisa Britton: Can we go ahead and schedule the [...] [C43.9] Order(s):CT NECK SOFT TISSUE W IVCON [[id number]] Order #: [id number] FUTURE [] iv contrast (will be provided [...] 1 EachRfl: 0 CT CHEST W IVCON [[id number]] Order #: [id number] FUTURE [] iv contrast (will be provided [...] EachRfl: 0 LACTATE DEHYDROGENASE [SQLD6] Order #: [id number] FUTURE COMPLETE BLOOD COUNT AND DIFFERENTIAL [SQCBCDIF] Order #: [id number] FUTURE COMPREHENSIVE METABOLIC PANEL [SQCMP] Order #: [id number] FUTURE Prescriptions as of 01/30/2024 - diphenhydramine [...] mg by mouth. - omeprazole magnesium (ACID MACHINE ADJUSTER LEADER, OMEPRAZOLE, ORAL) Take by mouth as directed. [...] In Off (more content not included)... Normal [facility] Telephone (OGT551) VY MCKEON ([id number]) 1990 F Date Time Provider Department 01/22/24 ANA PEOPLES [id number] During your visit today, we recorded the following information about you: Ana Peoples MD 01/22/2024 3:44 PM Signed 01/22/2024 MFM Pt called and identified ~ [...] mg by mouth. - omeprazole magnesium (ACID MACHINE ADJUSTER LEADER, OMEPRAZOLE, ORAL) Take by mouth as directed. [...] Status:Closed by ANA PEOPLES on 01/22/24 Normal [facility] Examination level ultrasound on 01-21-2024 Indication [...] 9 oz EFW by: Hadlock (HC-AC-FL) Extended Bakery Supervisor 3.1 mm CM 7.6 mm 70% Nicolaides [...] normal LVOT view: normal 3-vessel view: normal 6-yxmlsd-guxavue view: normal Heart / Thorax Situs: situs [...] Read By: Ana Peoples MD MATERNAL MEDICINE [facility] Radiology Study observation (narrative) [facility] CNPNon 01-18-2024 CNPN Telephone (OBGYF2) VY MCKEON ([id number]) 1990 F Date Time Provider Department 01/18/24 [...] mg by mouth. - omeprazole magnesium (ACID MACHINE ADJUSTER LEADER, OMEPRAZOLE, ORAL) Take by mouth as directed. - PNV no.95/ferrous fum/folic ac ( ORAL) Take by mouth as directed. Problem List As Of Date: 01/18/2024 (None) Encounter Status:Closed by JOSE L CROWLEY on 01/18/24 Normal [facility] 01-10-2024 CNPN Telephone (OBGYF2) VY MCKEON ([id number]) 1990 F Date Time Provider Department 01/10/24 HISTORICAL OBGYF2 During your visit today, we recorded the following information about you: Rolo Parada 01/10/2024 9:19 AM Signed Knozenwishram msg was sent to patient asking for [...] mg by mouth. - omeprazole magnesium (ACID MACHINE ADJUSTER LEADER, OMEPRAZOLE, ORAL) Take by mouth as directed. - PNV no.95/ferrous fum/folic ac ( ORAL) Take by mouth as directed. Problem List As Of Date: 01/10/2024 (None) Encounter Status:Closed by ROLO PARADA on 01/10/24 Normal [facility] CNPRosa 01-09-2024 CNPN Telephone (PLASMN) VY MCKEON ([id number]) 1990 F Date Time Provider Department 01/09/24 FRANSICO SHARP During your visit today, we recorded the following information about you: Fernanda Michael 01/09/2024 9:55 AM Signed Patient called that she is seeing Maternal Med, in her area and was questioning does she need to see one at the [facility]? She is asking for a call.. she is very nervous Surjit Griggs, RN 01/09/2024 12:42 PM Signed Reached out to patient. Instructions provided to see a maternal medicine specialist within the [facility] per Dr. Sharp. This nurse explained [...] mg by mouth. - omeprazole magnesium (ACID MACHINE ADJUSTER LEADER, OMEPRAZOLE, ORAL) Take by mouth as directed. - PNV no.95/ferrous fum/folic ac ( ORAL) Take by mouth as directed. Problem List As Of Date: 01/09/2024 (None) Encounter Status:Closed by FERNANDA MICHAEL on 01/09/24 [facility] CNOVSPon 01-04-2024 CNOVSP Visit (SP) Office (PLASCA) VY MCKEON ([id number]) 1990 F Date Time Provider Department 01/04/24 2:15 PM FRANSICO SHARP During your visit today, we recorded the following information about you: Temperature Pulse Respiration Blood pressure 97.1 degrees 94/minute 20/minute 148/83 Fransico Sharp MD 01/06/2024 9:42 AM Signed DATE: January 03, 2024 CC: New Melanoma Patient Referring Physician: Margarita Kim MD [facility] [place] HPI: Vy Mckeon is a 33 year [...] 400 mg by mouth. omeprazole magnesium (ACID MACHINE ADJUSTER LEADER, OMEPRAZOLE, ORAL) Take by mouth as directed. [...] left upper lip with a variegated pattern, custodial manager in the middle with a number of [...] taken and uploaded to chart today via [employer] - Pathology re-read to be obtained - Surgical plan is for resection of left upper lip melano (more content not included)... Normal [facility] CBC W Auto Differential pane l (Bld)on 12-26-2023 Basophils (Bld) [#/Vol] 0.03 10*3/uL Normal <0.11 [facility] Comment on above: Order Comment: Speci men Type: BLOOD SPECIMENOrdering Facility: [facility] Address: [address] [place] [address] Performed By: #### 5 7021-8 ####[facility] LABCLIA [id number] [place] [address] Basophils/100 WBC (Bld) 0.3 % Normal [facility] Comment on above: Order Comment: Speci men Type: BLOOD SPECIMENOrdering Facility: [facility] Address: [address] [place] [address] Performed By: #### 5 7021-8 ####[facility] LABCLIA [id number] [place] [address] Differential cell count method Nom (Bld) Auto Normal [facility] Comment on above: Order Comment: Speci men Type: BLOOD SPECIMENOrdering Facility: [facility] Address: [address] [place] [address] Performed By: #### 5 7021-8 ####[facility] LABCLIA [id number] [place] [address] Eosinophils (Bld) [#/Vol] 0.15 10*3/uL Normal <0.46 [facility] Comment on above: Order Comment: Speci men Type: BLOOD SPECIMENOrdering Facility: [facility] Address: [address] [place] [address] Performed By: #### 5 7021-8 ####[facility] LABCLIA [id number] [place] [address] Eosinophils/100 WBC (Bld) 1.5 % Normal [facility] Comment on above: Order Comment: Speci men Type: BLOOD SPECIMENOrdering Facility: [facility] Address: [address] [place] [address] Performed By: #### 5 7021-8 ####[facility] LABCLIA [id number] [place] [address] Erythrocyte distribution width (RBC) [Ratio] 13.5 % Normal 11.5-15.0 [facility] Comment on above: Order Comment: Speci men Type: BLOOD SPECIMENOrdering Facility: [facility] Address: [address] [place] [address] Performed By: #### 5 7021-8 ####[facility] LABCLIA [id number] [place] [address] Hematocrit (Bld) [Volume fraction] 35.5 % Low 36.0-46.0 [facility] Comment on above: Order Comment: Speci men Type: BLOOD SPECIMENOrdering Facility: [facility] Address: [address] [place] [address] Performed By: #### 5 7021-8 ####[facility] LABIA [id number] [place] [address] Hemoglobin (Bld) [Mass/Vol] 12.0 g/dL Normal 11.5-15.5 [facility] Comment on above: Order Comment: Speci men Type: BLOOD SPECIMENOrdering Facility: [facility] Address: [address] [place] [address] Performed By: #### 5 7021-8 ####[facility] LABCLIA [id number] [place] [address] Immature granulocytes (Bld) [#/Vol] 0.06 10*3/uL Normal <0.10 [facility] Comment on above: Order Comment: Speci men Type: BLOOD SPECIMENOrdering Facility: [facility] Address: [address] [place] [address] Performed By: #### 5 7021-8 ####[facility] LABIA [id number] [place] [address] Immature granulocytes/100 WBC (Bld) 0.6 % Normal [facility] Comment on above: Order Comment: Speci men Type: BLOOD SPECIMENOrdering Facility: [facility] Address: [address] [place] [address] Performed By: #### 5 7021-8 ####[facility] LABCLIA [id number] [place] [address] Lymphocytes (Bld) [#/Vol] 1.46 10*3/uL Normal 1.00-4.00 [facility] Comment on above: Order Comment: Speci men Type: BLOOD SPECIMENOrdering Facility: [facility] Address: [address] [place] [address] Performed By: #### 5 7021-8 ####[facility] LABCLIA [id number] [place] [address] Lymphocytes/100 WBC (Bld) 15.0 % Normal [facility] Comment on above: Order Comment: Speci men Type: BLOOD SPECIMENOrdering Facility: [facility] Address: [address] [place] [address] Performed By: #### 5 7021-8 ####[facility] LABCLIA [id number] [place] [address] MCH (RBC) [Entitic mass] 30.1 pg Normal 26.0-34.0 [facility] Comment on above: Order Comment: Speci men Type: BLOOD SPECIMENOrdering Facility: [facility] Address: [address] [place] [address] Performed By: #### 5 7021-8 ####[facility] LABCLIA [id number] [place] [address] MCHC (RBC) [Mass/Vol] 33.8 g/dL Normal 30.5-36.0 [facility] Comment on above: Order Comment: Speci men Type: BLOOD SPECIMENOrdering Facility: [facility] Address: [address] [place] [address] Performed By: #### 5 7021-8 ####[facility] LABCLIA [id number] [place] [address] MCV (RBC) [Entitic vol] 89.0 fL Normal 80.0-100.0 [facility] Comment on above: Order Comment: Speci men Type: BLOOD SPECIMENOrdering Facility: [facility] Address: [address] [place] [address] Performed By: #### 5 7021-8 ####[facility] LABCLIA [id number] [place] [address] Monocytes (Bld) [#/Vol] 0.50 10*3/uL Normal <0.87 [facility] Comment on above: Order Comment: Speci men Type: BLOOD SPECIMENOrdering Facility: [facility] Address: [address] [place] [address] Performed By: #### 5 7021-8 ####[facility] LABCLIA [id number] [place] [address] Monocytes/100 WBC (Bld) 5.1 % Normal [facility] Comment on above: Order Comment: Speci men Type: BLOOD SPECIMENOrdering Facility: [facility] Address: [address] [place] [address] Performed By: #### 5 7021-8 ####[facility] LABCLIA [id number] [place] [address] Neutrophils (Bld) [#/Vol] 7.52 10*3/uL High 1.45-7.50 [facility] Comment on above: Order Comment: Speci men Type: BLOOD SPECIMENOrdering Facility: [facility] Address: [address] [place] [address] Performed By: #### 5 7021-8 ####[facility] LABCLIA [id number] [place] [address] Neutrophils/100 WBC (Bld) 77.5 % Normal [facility] Comment on above: Order Comment: Speci men Type: BLOOD SPECIMENOrdering Facility: [facility] Address: [address] [place] [address] Performed By: #### 5 7021-8 ####[facility] LABCLIA [id number] [place] [address] Nucleated RBC (Bld) [#/Vol] 10*3/uL Normal <0.01 [facility] Comment on above: Order Comment: Speci men Type: BLOOD SPECIMENOrdering Facility: [facility] Address: [address] [place] [address] Performed By: #### 5 7021-8 ####[facility] LABCLIA [id number] [place] [address] Nucleated RBC/100 WBC (Bld) [Ratio] 0.0 /100 WBC Normal [facility] Comment on above: Order Comment: Speci men Type: BLOOD SPECIMENOrdering Facility: [facility] Address: [address] [place] [address] Performed By: #### 5 7021-8 ####[facility] LABCLIA [id number] [place] [address] Platelet mean volume (Bld) [Entitic vol] 10.1 fL Normal 9.0-12.7 [facility] Comment on above: Order Comment: Speci men Type: BLOOD SPECIMENOrdering Facility: [facility] Address: [address] [place] [address] Performed By: #### 5 7021-8 ####[facility] LABCLIA [id number] [place] [address] Platelets (Bld) [#/Vol] 224 10*3/uL Normal 150-400 [facility] Comment on above: Order Comment: Speci men Type: BLOOD SPECIMENOrdering Facility: [facility] Address: [address] [place] [address] Performed By: #### 5 7021-8 ####[facility] LABIA [id number] [place] [address] RBC (Bld) [#/Vol] 3.99 10*6/uL Normal 3.90-5.20 [facility] Comment on above: Order Comment: Speci men Type: BLOOD SPECIMENOrdering Facility: [facility] Address: [address] [place] [address] Performed By: #### 5 7021-8 ####[facility] LABCLIA [id number] [place] [address] WBC (Bld) [#/Vol] 9.72 10*3/uL Normal 3.70-11.00 [facility] Comment on above: Order Comment: Speci men Type: BLOOD SPECIMENOrdering Facility: [facility] Address: [address] [place] [address] Performed By: #### 5 7021-8 ####[facility] LABIA [id number] [place] [address] CNOVSPon 12-26-2023 CNOVSP Visit (SP) Office (HEMASA) VY MCKEON ([id number]) 1990 F Date Time Provider Department 12/26/23 3:30 PM USMAN GOLDBERG During your visit today, we recorded the following information about you: Temperature Pulse Respiration Blood pressure 97.3 degrees 87/minute 16/minute 134/74 Weight Height Last Period 86.1 kg 1.702 m 06/24/23 Usman Goldberg MD 12/27/2023 12:46 PM Signed NAME: Vy Mckeon CLINIC NO.: [id number] DATE OF SERVICE: December 26, 2023 (Krystal) [...] magnesium (ACID (more content not included)... Normal [facility] Comprehensive metabolic 2000 panelon 12-26-2023 Albumin [Mass/Vol] 3.9 g/dL Normal 3.9-4.9 [facility] Comment on above: Order Comment: Speci men Type: BLOOD SPECIMENOrdering Facility: [facility] Address: [facility] [place] [address] Performed By: #### 2 4323-8, 2531-0 ####[facility] LABCLIA [id number] [place] [address] ALP [Catalytic activity/Vol] 109 U/L Normal 34-123 [facility] Comment on above: Order Comment: Speci men Type: BLOOD SPECIMENOrdering Facility: [facility] Address: [address] [place] [address] Performed By: #### 2 4328, 2531-0 ####[facility] LABCLIA [id number] [place] [address] ALT [Catalytic activity/Vol] 26 U/L Normal 7-38 [facility] Comment on above: Order Comment: Speci men Type: BLOOD SPECIMENOrdering Facility: [facility] Address: [address] [place] [address] Performed By: #### 2 432-8, 2531-0 ####[facility] LABCLIA [id number] [place] [address] Anion gap [Moles/Vol] 10 mmol/L Normal 9-18 [facility] Comment on above: Order Comment: Speci men Type: BLOOD SPECIMENOrdering Facility: [facility] Address: [address] [place] [address] Performed By: #### 2 4323-8, 2531-0 ####[facility] LABCLIA [id number] [place] [address] AST [Catalytic activity/Vol] 26 U/L Normal 13-35 [facility] Comment on above: Order Comment: Speci men Type: BLOOD SPECIMENOrdering Facility: [facility] Address: [address] [place] [address] Performed By: #### 2 4323-8, 2531-0 ####[facility] LABCLIA [id number] [place] [address] Bilirubin [Mass/Vol] 0.2 mg/dL Normal 0.2-1.3 [facility] Comment on above: Order Comment: Speci men Type: BLOOD SPECIMENOrdering Facility: [facility] Address: [address] [place] [address] Performed By: #### 2 4323-8, 2531-0 ####[facility] LABIA [id number] [place] [address] Calcium [Mass/Vol] 10.1 mg/dL Normal 8.5-10.2 [facility] Comment on above: Order Comment: Speci men Type: BLOOD SPECIMENOrdering Facility: [facility] Address: [address] [place], [place] [address] Performed By: #### 2 4323-8, 2531-0 ####[facility] LABIA [id number] [place] [address] Chloride [Moles/Vol] 103 mmol/L Normal 97-105 [facility] Comment on above: Order Comment: Speci men Type: BLOOD SPECIMENOrdering Facility: [facility] Address: [address] [place] [address] Performed By: #### 2 4323-8, 2531-0 ####[facility] LABIA [id number] [place] [address] CO2 [Moles/Vol] 23 mmol/L Normal 22-30 [facility] Comment on above: Order Comment: Speci men Type: BLOOD SPECIMENOrdering Facility: [facility] Address: [address] [place] [address] Performed By: #### 2 4323-8, 2532-0 ####[facility] LABCLIA [id number] [place] [address] Creatinine [Mass/Vol] 0.64 mg/dL Normal 0.58-0.96 [facility] Comment on above: Order Comment: Speci men Type: BLOOD SPECIMENOrdering Facility: [facility] Address: [address] [place], [place] [address] Performed By: #### 2 4323-8, 2532-0 ####[facility] LABCLIA [id number] [place] [address] Creatinine and Glomerular filtration rate.predicted panel (S/P/Bld) 118 mL/min/1.73m??? Normal >=60 [facility] Comment on above: Order Comment: [facility] Type: BLOOD SPECIMENOrdering Facility: [facility] Address: [address] [place] [address] Result Comment: Araseli mated Glomerular Filtration Rate [...] GFR. Performed By: #### 2 4323-8, 2531-0 ####[facility] LABCLIA [id number] [place] [address] Glucose [Mass/Vol] 85 mg/dL Normal 74-99 [facility] Comment on above: Order Comment: Speci men Type: BLOOD SPECIMENOrdering Facility: [facility] Address: [address] [id number] Result Comment: The [place] [employer] Association (ADA) provides guidance for cutoff [...] Standards of Medical Care in Diabetes 2016, [place] [employer]. Diabetes Care. 2016.39(Suppl 1). Performed By: #### 2 4323-8, 2531-0 ####[facility] LABCLIA [id number] [place] [address] Potassium [Moles/Vol] 4.1 mmol/L Normal 3.7-5.1 [facility] Comment on above: Order Comment: Speci men Type: BLOOD SPECIMENOrdering Facility: [facility] Address: [address] [place] [address] Performed By: #### 2 43238, 0 ####[facility] LABIA [id number] [place] [address] Protein [Mass/Vol] 7.3 g/dL Normal 6.3-8.0 [facility] Comment on above: Order Comment: Speci men Type: BLOOD SPECIMENOrdering Facility: [facility] Address: [address] [place] [address] Performed By: #### 2 43238, 0 ####[facility] LABIA [id number] [place] [address] Sodium [Moles/Vol] 136 mmol/L Normal 136-144 [facility] Comment on above: Order Comment: Speci men Type: BLOOD SPECIMENOrdering Facility: [facility] Address: [address] [place] [address] Performed By: #### 2 43238, 0 ####[facility] LABIA [id number] [place] [address] Urea nitrogen [Mass/Vol] 6 mg/dL Low 7-21 [facility] Comment on above: Order Comment: Speci men Type: BLOOD SPECIMENOrdering Facility: [facility] Address: [address] [place], [place] [address] Performed By: #### 2 4323-8, 0 ####[facility] LABCLIA [id number] [place] [address] LDH SerPl-cCncon 12-26-2023 LDH [Catalytic activity/Vol] 190 U/L Normal 135-214 [facility] Comment on above: Order Comment: Speci men Type: BLOOD SPECIMENOrdering Facility: [facility] Address: [address] [place], [place] [address] Result Comment: Hemo lysis present. The origin [...] indicated. Performed By: #### 2 4323-8, 2531-0 ####[facility] LABCLIA [id number] [place] [address] URETHRITIS/DISCHARGE PLUS VA GINITIS (HTRX)on 11-14-2023 ATOPOBIUM VAGINAE 19.497 Abnormal [facility] ATOPOBIUM VAGINAE Detected Abnormal [facility] BVAB 2,3 (BACTERIAL VAGINOSIS ASSOCIATED BACTERIA 2, 3); MOBILUNCUS SPP 15.096 Abnormal [facility] Healthcare BVAB 2,3 (BACTERIAL VAGINOSIS ASSOCIATED BACTERIA 2, 3); MOBILUNCUS SPP Detected Abnormal [facility] Healthcare DIANE ALBICANS, PARAPSILOSIS, TROPICALIS 0 [facility] DIANE ALBICANS, PARAPSILOSIS, TROPICALIS Not detected [facility] DIANE GLABRATA 0 [facility] DIANE GLABRATA Not detected [facility] DIANE KRUSEI 0 [facility] DIANE KRUSEI Not detected [facility] CHLAMYDIA TRACHOMATIS 0 [facility] CHLAMYDIA TRACHOMATIS Not detected [facility] DFR (A1, A5), SUL (1,2) 0 PPM [facility] DFR (A1, A5), SUL (1,2) Not detected [facility] ERMB, C; MEFA 14.773 Abnormal PPM [facility] care ERMB, C; MEFA Detected Abnormal [facility] care GARDNERELLA VAGINALIS 0 [facility] GARDNERELLA VAGINALIS Not detected [facility] Interpretation and review of laboratory results Abnormal [facility] Health[facility] re MEGASPHAERA (TYPES 1, 2) 0 [facility] MEGASPHAERA (TYPES 1, 2) Not detected [facility] MYCOPLASMA GENITALIUM 0 [facility] MYCOPLASMA GENITALIUM Not detected [facility] NEISSERIA GONORRHOEAE 0 [facility] NEISSERIA GONORRHOEAE Not detected [facility] TET B, TET M 18.414 Abnormal PPM [facility] are TET B, TET M Detected Abnormal [facility] are TRICHOMONAS VAGINALIS 0 [facility] TRICHOMONAS VAGINALIS Not detected [facility] Unlisted Lab Teston 11-13-19 24 Unlisted lab test see scanned report [facility] Urinalysis macro (dipstick) panel (U)on 11-12-2023 Bilirubin, UA Negative Negative - 4(70) +++ mg/dL [facility] Blood, UA Negative Negative - 50 Manny/mcL [facility] Clarity, UA Clear [facility] re Color, UA Yellow [facility] Glucose, UA Negative Negative - 1999(110) ++++ mg/dL [facility] Interpretation and review of laboratory results Normal [facility] re Ketones, UA Negative Negative - 160(16) ++++ mg/dL [facility] Leukocytes, UA Negative Negative - 500+++ Luli/mcL [facility] Nitrite, UA Negative Negative - Positive [facility] pH, UA 6.0 5 - 9 [facility] Protein, UA Negative Negative - 1999(20) ++++ mg/dL [facility] Spec Grav, UA 1.020 1 - 1.03 [facility] Urobilinogen, UA 1.0 0.2 - 12 mg/dL [facility] HCG ( test) Marcela bowie Ql (U)Ordered By: Karan Romero on 03-19-2023 HCG ( test) Ql (U) Negative [facility] HCG,Urineon 03-19-2023 Beta HCG ( test) Ql (U) Negative Normal [facility] Comment on above: Result Comment: PERF ORMED BY: [address] [id number] PATHOLOGIST [employer]ER OPERATOR JOYCE ACHARYA M.D. Performed By: #### U HCG #### [place] [id number] [facility] Joel 03-19-2023 L - -------- Specimen: [id number] Received: 03/19/23 Status: HEMANT Johnston Num: [id number] Spec Type: Surgical Subm Dr: Karan Romero MD Tissues: A Duodenum - Biopsy (DUODENAL BX) B Esophagus Biopsy (ESOPHAGEAL) Procedures: ROBINA/Jessica Nassar/Micro L4/2 -------- Age/ Patient Sex Location Account Attending Physician -------- Vy Mckeon 32/F [id number] Karan Romero MD -------- SPEC NUM: [id number] RECD: 03/19/23 STATUS: HEMANT JOHNSTON NUM: [id number] ASAD: 03/19/23 [facility] DR: Karan Romero MD ENTERED: 03/19/[address] [facility] [address]: SPEC TYPE: Surgical DEPT: S ORDERED: [...] in one cassette labeled B1. -------- Specimen: [id number] Received: 03/19/23 Status: HEMANT Johnston Num: [id number] Spec Type: Surgical Subm Dr: Karan Romero MD Tissues: A Duodenum - Biopsy (DUODENAL BX) B Esophagus Biopsy (ESOPHAGEAL) Procedures: HE/4, Gross/Micro L4/2 -------- Patient: Vy Mckeon [id number] (Continued) -------- Specimen: [id number] Received: 03/19/23 (Continued) Signed (signature on file) Doris Reynolds MD 03/20/23 1117 -------- Specimen: [id number] Received: 03/19/23 Status: HEMANT Johnston Num: [id number] Spec Type: Surgical Subm Dr: Karan Romero MD Tissues: A Duodenum - Biopsy (DUODENAL BX) B Esophagus Biopsy (ESOPHAGEAL) Procedures: ROBINA/Maday, Gross/Micro L4/2 -------- Patient: Vy Mckeon [id number] (Continued) -------- Specimen: [id number] Received: 03/19/23 (Continued) Microscopic Description A. Two with H E stained material have been examined. The microscopic findings support the above pathologic diagnosis. B. Two with H E stained material have been examined. The microscopic findings support the above pathologic diagnosis. CPT Codes 12179 x 2 -------- -------- Specimen: [id number] Received: 03/19/23 Status: HEMANT Johnston Num: [id number] Spec Type: Surgical Subm Dr: Karan Romero MD Tissues: A Duodenum - Biopsy (DUODENAL BX) B Esophagus Biopsy (ESOPHAGEAL) Procedures: HE/4, Gross/Micro L4/2 -------- Patient: Vy Mckeon [id number] (Continued) -------- Signed (signature on file) Doris Reynolds MD 03/20/23 1117 Normal [facility] CBC AUTO DIFFon 02-09-2023 BASO # 0.0 103/ul Normal 0.0-0.1 [facility] Comment on above: Performed By: #### C BC ####[facility] [address] [place] [address]Dr. Zafar Branham Basophils/100 WBC (Bld) 0.3 % Normal 0.2-2.0 [facility] Comment on above: Performed By: #### C BC ####[facility] [address] [place] [address]Dr. Zafar Branham EO # 0.2 103/ul Normal 0.0-0.7 [facility] Comment on above: Performed By: #### C BC ####[facility] [address] [place] [address]Dr. Zafar Branham Eosinophils/100 WBC (Bld) 1.7 % Normal 0.9-7.0 [facility] Comment on above: Performed By: #### C BC ####[facility] [address] [address]Dr. Zafar Branham Erythrocyte distribution width (RBC) [Ratio] 13.9 % Normal 11.0-15.0 [facility] Comment on above: Performed By: #### C BC ####[facility] [address] [address]Dr. Zafar Branham Hematocrit (Bld) [Volume fraction] 41.0 % Normal 36.0-48.0 [facility] Comment on above: Performed By: #### C BC ####[facility] [address] [place] [address]Dr. Zafar Branham Hemoglobin (Bld) [Mass/Vol] 13.4 g/dL Normal 12.0-16.0 [facility] Comment on above: Performed By: #### C BC ####[facility] [address] [place] [address]Dr. Zafar Branham IG # 0.03 10e3/ul Normal 0.00-0.03 [facility] Comment on above: Performed By: #### C BC ####[facility] [address] [place] [address]Dr. Zafar Branham IG % 0.3 % Normal 0.0-0.5 [facility] Comment on above: Performed By: #### C BC ####[facility] [address] [place] [address]Dr. Kathytere Branham LYMPH # 1.4 103/ul Normal 1.2-3.8 [facility] Comment on above: Performed By: #### C BC ####[facility] [address] [place] [address]Dr. Kathytere Branham Lymphocytes/100 WBC (Bld) 14.8 % Critically low 20.5-60.0 [facility] Comment on above: Performed By: #### C BC ####[facility] [address] [place] [address]Dr. Kathytere Branham MANUAL DIFF REQ NO Normal [facility] Comment on above: Performed By: #### C BC ####[facility] [address] [place], [place] [address]Dr. Zafar Branham MCH (RBC) [Entitic mass] 28.8 pg Normal 26.7-34.0 [facility] Comment on above: Performed By: #### C BC ####[facility] [address] [place] [id number]. Zafar Branham MCHC (RBC) [Mass/Vol] 32.7 g/dL Normal 29.9-35.2 [facility] Comment on above: Performed By: #### C BC ####[facility] [address] [place] [phone]. Zafar Branham MCV (RBC) [Entitic vol] 88.0 fL Normal 81.0-99.0 [facility] Comment on above: Performed By: #### C BC ####[facility] [address] [place] [id number]. Zafar Branham MONO # 0.4 103/ul Normal 0.3-0.8 [facility] Comment on above: Performed By: #### C BC ####[facility] [address] [place] [phone]. Zafar Branham Monocytes/100 WBC (Bld) 3.9 % Normal 1.7-12.0 [facility] Comment on above: Performed By: #### C BC ####[facility] [address] [place] [phone]. Zafar Branham NEUT # 7.2 103/ul Critically high 1.4-6.5 [facility] Comment on above: Performed By: #### C BC ####[facility] [address] [place] [phone]. Zafar Branham Neutrophils/100 WBC (Bld) 79.0 % Critically high 43.0-75.0 [facility] Comment on above: Performed By: #### C BC ####[facility] [address] [place] [phone]. Zafar Branham Platelet mean volume (Bld) [Entitic vol] 10.7 fL Normal 9.5-13.5 [facility] Comment on above: Performed By: #### C BC ####[facility] [address] [place] [phone]. Zafar Yonas PLT 353 103/ul Normal 150-450 [facility] Comment on above: Performed By: #### C BC ####[facility] [address] [place], [place] [address]Wq. Zafar Branham RBC 4.66 106/ul Normal 4.20-5.40 [facility] Comment on above: Performed By: #### C BC ####[facility] [address] [place], [place] [address]Ct. Zafar Branham WBC 9.2 103/ul Normal 4.0-11.0 [facility] Comment on above: Performed By: #### C BC ####[facility] [address] [place] [phone]. Zafar Branham CRPon 02-09-2023 CRP 1.0 mg/dL Normal <=1.0 [facility] Comment on above: Performed By: #### C RP, CMP, TSH, LIPID ####[facility] [address] [place] [address]Dr. Zafar Branham FREE T4on 02-09-2023 Free T4 [Mass/Vol] 1.01 ng/dL Normal 0.76-1.46 [facility] Comment on above: Performed By: #### F T4 #### [facility] [address] [place], [place] [address] Dr. Zafar Branham LIPID PROFILEon 02-09-2023 CHOL-HDL RATIO NORM SEE BELOW Normal [facility] Comment on above: Result Comment: 3.3 - 4.4 LOW RISK 4.4 - 7.1 AVERAGE RISK 7.1 - 11.0 MODERATE RISK >11.0 HIGH RISK Performed By: #### C RP, CMP, TSH, LIPID ####[facility] [address] [place] [phone]. Zafar Branham Cholesterol [Mass/Vol] 230 mg/dL Critically high <=200 [facility] Comment on above: Performed By: #### C RP, CMP, TSH, LIPID ####[facility] [address] [place] [phone]. Zafar Yonas Cholesterol in HDL [Mass/Vol] 71 mg/dL Critically high 40-60 [facility] Comment on above: Performed By: #### C RP, CMP, TSH, LIPID ####[facility] [address] [place], [place] [address]Ny. Zafar Branham Cholesterol in LDL [Mass/Vol] 139.4 mg/dL Normal [facility] Comment on above: Performed By: #### C RP, CMP, TSH, LIPID ####[facility] [address] [place], [place] [address]Gq. Zafar Branham Cholesterol.total/C holesterol in HDL [Mass ratio] 3.2 {ratio} Normal [facility] Comment on above: Performed By: #### C RP, CMP, TSH, LIPID ####[facility] [address] [place], [place] [address]Zf. Zafar Branham HDL NORMAL > or = 60 mg/dl - LO W CARDIOVASCULAR RISK <40 mg/dl - HIGH CARDIOVASCULAR RISK Normal [facility] Comment on above: Performed By: #### C RP, CMP, TSH, LIPID ####[facility] [address] [place] [phone]. Zafar Branham LDL CALC NORMAL SEE BELOW Normal [facility] Comment on above: Result Comment: <100 mg/dl OPTIMAL 100 - 129 mg/dl NEAR OR ABOVE OPTIMAL 130 - 159 mg/dl BORDERLINE HIGH 160 - 189 mg/dl HIGH >190 mg/dl VERY HIGH Performed By: #### C RP, CMP, TSH, LIPID ####[facility] [address] [place] [phone]. Zafar Branham Triglyceride [Mass/Vol] 98 mg/dL Normal <=150 [facility] Comment on above: Performed By: #### C RP, CMP, TSH, LIPID ####[facility] [address]ab[address] [place], [place] [address]Uz. Zafar Branham VLDL CALC 19.6 mg/dL Normal [facility] Comment on above: Performed By: #### C RP, CMP, TSH, LIPID ####[facility] [address] [place] [phone]. Zafar Branham URon 02-09-2023 , QUAL Negative Normal NEGATIVE [facility] Comment on above: Performed By: #### U AMIC, PREGU #### [facility] [address] [place] [address] [address] Zafar Branham PROF 14(COMP METB)on 023 Albumin [Mass/Vol] 4.0 g/dL Normal 3.4-5.0 [facility] Comment on above: Performed By: #### C RP, CMP, TSH, LIPID #### [facility] [address] [place] [address] [address] Zafar Branham Albumin/Globulin [Mass ratio] 0.9 {ratio} Normal [facility] Comment on above: Performed By: #### C RP, CMP, TSH, LIPID #### [facility] [address] [place] [address] [address] Zafar Branham ALP [Catalytic activity/Vol] 94 U/L Normal 46-116 [facility] Comment on above: Performed By: #### C RP, CMP, TSH, LIPID #### [facility] [address] [place] [address] Dr. Zafar Branham ALT [Catalytic activity/Vol] 30 U/L Normal 14-59 [facility] Comment on above: Performed By: #### C RP, CMP, TSH, LIPID #### [facility] [address] [place] [address] [address] Zafar Branham Anion gap [Moles/Vol] 13.6 mmol/L Normal [facility] Comment on above: Performed By: #### C RP, CMP, TSH, LIPID #### [facility] [address] [place] [address] [address] Zafar Branham AST [Catalytic activity/Vol] 23 U/L Normal 15-37 [facility] Comment on above: Performed By: #### C RP, CMP, TSH, LIPID #### [facility] [address] [place] [address] [address] Zafar Branham Bilirubin [Mass/Vol] 0.3 mg/dL Normal 0.2-1.0 [facility] Comment on above: Performed By: #### C RP, CMP, TSH, LIPID #### [facility] [address] [place] [address] [address] Zafar Branham Calcium [Mass/Vol] 9.7 mg/dL Normal 8.5-10.1 [facility] Comment on above: Performed By: #### C RP, CMP, TSH, LIPID #### [facility] [address] [place] [address] Dr. Zafar Branham Chloride [Moles/Vol] 100 mmol/L Normal 98-107 [facility] Comment on above: Performed By: #### C RP, CMP, TSH, LIPID #### [facility] [address] [place] [address] Dr. Zafar Branham CO2 [Moles/Vol] 26.6 mmol/L Normal 21.0-32.0 [facility] Comment on above: Performed By: #### C RP, CMP, TSH, LIPID #### [facility] [address] [place] [address] Dr. Zafar Branham Creatinine [Mass/Vol] 1.00 mg/dL Normal 0.55-1.02 [facility] Comment on above: Performed By: #### C RP, CMP, TSH, LIPID #### [facility] [address] [place] [address] Dr. Zafar Branham EGFR-AF MALTESE >60 Normal >=60 [facility] Comment on above: Performed By: #### C RP, CMP, TSH, LIPID #### [facility] [address] [place] [address] Dr. Zafar Branham EGFR-NON AF MALTESE >60 Normal >=60 [facility] Comment on above: Performed By: #### C RP, CMP, TSH, LIPID #### [facility] [address] [place] [address] Dr. Zafar Branham Globulin (S) [Mass/Vol] 4.5 g/dL Normal [facility] Comment on above: Performed By: #### C RP, CMP, TSH, LIPID #### [facility] [address] [place] [address] Dr. Zafar Branham Glucose [Mass/Vol] 93 mg/dL Normal 74-106 [facility] Comment on above: Performed By: #### C RP, CMP, TSH, LIPID #### [facility] [address] [place] [address] Dr. Zafar Branham Potassium [Moles/Vol] 4.2 mmol/L Normal 3.5-5.1 [facility] Comment on above: Performed By: #### C RP, CMP, TSH, LIPID #### [facility] [address] [place] [address] [address] Zafar Branham Protein [Mass/Vol] 8.5 g/dL Critically high 6.4-8.2 [facility] Comment on above: Performed By: #### C RP, CMP, TSH, LIPID #### [facility] [address] [place] [address] [address] Zafar Branham Sodium [Moles/Vol] 136 mmol/L Normal 136-145 [facility] Comment on above: Performed By: #### C RP, CMP, TSH, LIPID #### [facility] [address] [place] [address] [address] Zafar Branham Urea nitrogen [Mass/Vol] 10.0 mg/dL Normal 7.0-18.0 [facility] Comment on above: Performed By: #### C RP, CMP, TSH, LIPID #### [facility] [address] [place] [address] [address] Zafar Branham Urea nitrogen/Creatinine [Mass ratio] 10.0 mg/mg Normal [facility] Comment on above: Performed By: #### C RP, CMP, TSH, LIPID #### [facility] [address] [address] [address] Zafar Bran[facility] mm/hr Critically high <=20 [facility] Comment on above: Performed By: #### S EDR ####[facility] [id number] [address]Dr. Zafar Branham TSHon 02-09-2023 TSH 0.590 uIU/mL Normal 0.358-3.740 [facility] Comment on above: Performed By: #### C RP, CMP, TSH, LIPID #### [facility] [address] [address] [address] Zafar Branham UA RANDOM W/MICROSCOPICon BACTERIA NONE SEEN Normal NONE SEEN [facility] Comment on above: Performed By: #### U AMIC, PREGU #### [facility] [address] [address] [address] Zafar Branham Bilirubin Ql (U) Negative Normal NEGATIVE The [facility] Comment on above: Performed By: #### U AMIC, PREGU #### [facility] [address] [address] [address] Zafar Branham CAST NONE SEEN Normal NONE SEEN [facility] Comment on above: Performed By: #### U AMIC, PREGU #### [facility] [address] [address] [address] Zafar Branham Clarity (U) CLEAR Normal CLEAR [facility] Comment on above: Performed By: #### U AMIC, PREGU #### [facility] [address] [place] [address] Dr. Zafar Branham Color (U) LT. YELLOW Normal YELLOW [facility] Comment on above: Performed By: #### U AMIC, PREGU #### [facility] [address] [place] [address] Dr. Zafar Branham Crystals LM Nom (Urine sed) NONE SEEN Normal NONE SEEN [facility] Comment on above: Performed By: #### U AMIC, PREGU #### [facility] [address] [place] [address] Dr. Zafar Branham Epithelial cells LM Ql (Urine sed) FEW Abnormal NONE SEEN /RARE [facility] Comment on above: Performed By: #### U AMIC, PREGU #### [facility] [address] [place] [address] Dr. Zafar Branham Glucose Ql (U) Negative Normal NEGATIVE The [facility] Comment on above: Performed By: #### U AMIC, PREGU #### [facility] [address] [place] [address] Dr. Zafar Branham Hemoglobin Ql (U) SMALL Abnormal NEGATIVE The [facility] Comment on above: Performed By: #### U AMIC, PREGU #### [facility] [address] [place] [address] Dr. Zafar Branham Ketones Ql (U) Negative Normal NEGATIVE The [facility] Comment on above: Performed By: #### U AMIC, PREGU #### [facility] [address] [address] [address] Zafar Branham LEUKOCYTES Negative Normal NEGATIVE [facility] Comment on above: Performed By: #### U AMIC, PREGU #### [facility] [address] [address] [address] Zafar Branham MUCOUS NONE SEEN Normal NONE SEEN [facility] Comment on above: Performed By: #### U AMIC, PREGU #### [facility] [address] [address] [address] Zafar Branham Nitrite Ql (U) Negative Normal NEGATIVE The [facility] Comment on above: Performed By: #### U AMIC, PREGU #### [facility] [address] [place] [address] Dr. Zafar Branham pH (U) 6.0 [pH] Normal 5-9 [facility] Comment on above: Performed By: #### U AMIC, PREGU #### [facility] [address] [place] [address] Dr. Zafar Branham RBC 0-2 Normal 0-2 [facility] Comment on above: Performed By: #### U AMIC, PREGU #### [facility] [address] [place] [address] Dr. Zafar Branham SPEC GRAVITY <=1.005 Abnormal 1.005-<=1.025 [facility] Comment on above: Performed By: #### U AMIC, PREGU #### [facility] [address] [place] [address] Dr. Zafar Branham UA PROTEIN Negative Normal NEGATIVE/ TRACE [facility] Comment on above: Performed By: #### U AMIC, PREGU #### [facility] [address] [place] [address] Dr. Zafar Branham Urobilinogen Qn (U) 0.2 {Ramy'U}/dL Normal 0.2 - 1. 0 [facility] Comment on above: Performed By: #### U AMIC, PREGU #### [facility] [address] [address] [address] Zafar Branham WBC NONE SEEN Normal NONE SEEN [facility] Comment on above: Performed By: #### U AMIC, PREGU #### [facility] [address] [address] [address] Zafar Branham XR knee RT 4V*on 02-07-2023 XR knee RT 4V* [facility] [employer] Other XR knee RT 4V* [facility] [employer] Other XR knee RT 4V* [address] [place] [address] [employer] Other XR knee RT 4V* [place] [address] No rt [employer] Other XR knee RT 4V* XRay Report [employer] Other XR knee RT 4V* Signed [employer] Other XR knee RT 4V* Patient: Vy Mckeon MR#: [id number] [employer] Other XR knee RT 4V* 5 [employer] Other XR knee RT 4V* : 1990 Acct:[id number] [employer] Other XR knee RT 4V* Age/Sex: 32 / F ADM Date: 02/07/23 [employer] Other XR knee RT 4V* Loc: XDUCLY Room: Type: REG CLI [employer] Other XR knee RT 4V* Attending Dr: Shayla DENNEY [employer] Other XR knee RT 4V* Copies to: JUMANA Christianson [employer] Other XR knee RT 4V* Ordering Provider: JUMANA Christianson [employer] Other XR knee RT 4V* Date of Service: 02/07/23 [employer] Other XR knee RT 4V* XR/XR knee RT 4V*: RIGHT KNEE PAIN [employer] Other XR knee RT 4V* RIGHT KNEE - 4 views [employer] Other XR knee RT 4V* COMPARISON: None Nort GELI Other XR knee RT 4V* CLINICAL DATA: Patient fell last night and landed on right anterior knee. Pain, swelling and [employer] Other XR knee RT 4V* abrasions. [employer] Other XR knee RT 4V* AP, lateral and both oblique views were obtained. There is no fracture or dislocation. There is no [employer] Other XR knee RT 4V* significant knee effusion or focal soft tissue swelling. [employer] Other XR knee RT 4V* XR/XR knee RT 4V* [employer] Other XR knee RT 4V* IMPRESSION: [employer] Other XR knee RT 4V* NO ACUTE BONY INJURY. [employer] Other XR knee RT 4V* Impression dictated by: Rama Garsia M.D.02/07/2023 10:01 AM [employer] Other XR knee RT 4V* Dictation Location: [facility]--10 [employer] Other XR knee RT 4V* Transcribed By: MILKA 02/07/23 1001 [employer] Other XR knee RT 4V* Dictated By: Rama Garsia MD 02/07/23 1000 [employer] Other XR knee RT 4V* Signed By: [place] [employer] Other XR knee RT 4V* 02/07/23 1001 [employer] Other XR knee RT 4V* [facility] Main [place] [address] [place] [address] XRay Report Signed Patient: Vy Mckeon MR#: [id number] 5 : 1990 Acct:[id number] Age/Sex: 32 / F ADM Date: 02/07/23 Loc: XDUCLY Room: Type: [facility] Attending Dr: Shayla DENNEY Copies to: JUMANA [...] Rama Garsia M.D.02/07/2023 10:01 AM Dictation Location: [address] [place] [address] Transcribed By: [facility] 02/07/23 100 Dictated By: Rama Garsia MD 02/07/23 1000 Signed By: 02/07/23 1001 [facility] XR HIPS KARELY 5V W PELVISon [...] JO-ANN CHACON Date: 2022-12-17 13:04 Normal [facility] PREG QUANT HCGon 07-04-2022 HCG QUANT 1 mIU/mL Normal [facility] Comment on above: Performed By: #### P REGQNT #### [facility] [address] [place] [address] Dr. Zafar Branham HCG RANGE SEE BELOW Normal [facility] Comment on above: Result Comment: 5-50 0.2-1 WEEK 50-500 1-2 WEEKS 100-5,000 2-3 WEEKS 500-10,000 3-4 WEEKS 1,000-50,000 4-5 WEEKS 10,000-100,000 5-6 WEEKS 15,000-200,000 6-8 WEEKS 10,000-100,000 2-3 MONTHS Performed By: #### P REGQNT #### [facility] [address] [place] [address] Dr. Zafar Branham PREG QUANT HCGon 06-08-2022 HCG QUANT 16 mIU/mL Normal [facility] Comment on above: Performed By: #### P REGQNT ####[facility] [id number] [address]Dr. Zafar Branham HCG RANGE SEE BELOW Normal [facility] Comment on above: Result Comment: 5-50 0.2-1 WEEK 50-500 1-2 WEEKS 100-5,000 2-3 WEEKS 500-10,000 3-4 WEEKS 1,000-50,000 4-5 WEEKS 10,000-100,000 5-6 WEEKS 15,000-200,000 6-8 WEEKS 10,000-100,000 2-3 MONTHS Performed By: #### P REGQNT ####[facility] [id number] [id number]. Zafar Branham CBC AUTO DIFFon 05-23-2022 BASO # 0.0 103/ul Normal 0.0-0.1 [facility] Comment on above: Performed By: #### C BC #### [facility] [address] [place] [address] Dr. Zafar Branham Basophils/100 WBC (Bld) 0.6 % Normal 0.2-2.0 [facility] Comment on above: Performed By: #### C BC #### [facility] [address] [place] [address] Dr. Zafar Branham EO # 0.3 103/ul Normal 0.0-0.7 [facility] Comment on above: Performed By: #### C BC #### [facility] [address] [place] [address] Dr. Zafar Branham Eosinophils/100 WBC (Bld) 6.5 % Normal 0.9-7.0 [facility] Comment on above: Performed By: #### C BC #### [facility] [address] [place] [address] Dr. Zafar Branham Erythrocyte distribution width (RBC) [Ratio] 12.5 % Normal 11.0-15.0 [facility] Comment on above: Performed By: #### C BC #### [facility] [address] [place] [address] Dr. Zafar Branham Hematocrit (Bld) [Volume fraction] 37.2 % Normal 36.0-48.0 [facility] Comment on above: Performed By: #### C BC #### [facility] [address] [place] [address] Dr. Zafar Branham Hemoglobin (Bld) [Mass/Vol] 12.1 g/dL Normal 12.0-16.0 [facility] Comment on above: Performed By: #### C BC #### [facility] [address] [place] [address] Dr. Zafar Branahm IG # 0.01 10e3/ul Normal 0.00-0.03 [facility] Comment on above: Performed By: #### C BC #### [facility] [address] [place] [address] Dr. Zafar Branham IG % 0.2 % Normal 0.0-0.5 [facility] Comment on above: Performed By: #### C BC #### [facility] [address] [place] [address] Dr. Zafar Branham LYMPH # 1.5 103/ul Normal 1.2-3.8 [facility] Comment on above: Performed By: #### C BC #### [facility] [address] [place] [address] Dr. Zafar Branham Lymphocytes/100 WBC (Bld) 29.8 % Normal 20.5-60.0 [facility] Comment on above: Performed By: #### C BC #### [facility] [address] [place] [address] Dr. Zafar Branham MANUAL DIFF REQ NO Normal [facility] Comment on above: Performed By: #### C BC #### [facility] [address] [place] [address] Dr. Zafar Branham MCH (RBC) [Entitic mass] 29.1 pg Normal 26.7-34.0 [facility] Comment on above: Performed By: #### C BC #### [facility] [address] [place] [address] Dr. Zafar Branham MCHC (RBC) [Mass/Vol] 32.5 g/dL Normal 29.9-35.2 [facility] Comment on above: Performed By: #### C BC #### [facility] [address] [place] [address] Dr. Zafar Branham MCV (RBC) [Entitic vol] 89.4 fL Normal 81.0-99.0 [facility] Comment on above: Performed By: #### C BC #### [facility] [address] [place] [address] Dr. Zafar Branham MONO # 0.4 103/ul Normal 0.3-0.8 [facility] Comment on above: Performed By: #### C BC #### [facility] [address] [place] [address] Dr. Zafar Branham Monocytes/100 WBC (Bld) 7.9 % Normal 1.7-12.0 [facility] Comment on above: Performed By: #### C BC #### [facility] [address] [place] [address] Dr. Zafar Branham NEUT # 2.7 103/ul Normal 1.4-6.5 [facility] Comment on above: Performed By: #### C BC #### [facility] [address] [address] [address] Zafar Branham Neutrophils/100 WBC (Bld) 55.0 % Normal 43.0-75.0 [facility] Comment on above: Performed By: #### C BC #### [facility] [address] [address] [address] Zafar Branham Platelet mean volume (Bld) [Entitic vol] 10.0 fL Normal 9.5-13.5 [facility] Comment on above: Performed By: #### C BC #### [facility] [address] [address] [address] Zafar Branham PLT 229 103/ul Normal 150-450 [facility] Comment on above: Performed By: #### C BC #### [facility] [address] [address] [address] Zafar Branham RBC 4.16 106/ul Critically low 4.20-5.40 [facility] Comment on above: Performed By: #### C BC #### [facility] [address] [address] [address] Zafar Branham WBC 5.0 103/ul Normal 4.0-11.0 [facility] Comment on above: Performed By: #### C BC #### [facility] [address] [address] [address] Zafar Branham TYPE AND SCREENon 05-23-2022 TYPE AND SCREEN Negative Normal [facility] Comment on above: Performed By: #### T NS ####[facility] [id number] [address]Dr. Zafar Branham Covid-19 PCR (CVDTBH)on 05-01 SARS-CoV-2 (COVID-19) RNA MANOLO+probe Ql (Unsp spec) Not detected Normal NOT DETECTED [facility] Comment on above: Result Comment: This test is not yet approved or cleared by the [place] FDA. When there are no FDA-approved or cleared tests available, and other criteria are met, FDA can make tests available under an emergency access mechanism called an Emergency Use Authorization (EUA). The EUA for this test is supported by the [place] of Health and Human Service's (HHS's) declaration [...] consistent with SARS-CoV-2. Performed By: #### C [facility] #### [facility] [address] [place] [address] Dr. Zafar Branham US PREG TVon 05-18-2022 [...] BOBBI SIMONS Date: 2022-05-18 19:25 Normal [facility] US PREG TVon 05-03-2022 US [...] by: BOBBI SIMONS Date: 2022-05-03 16:32 Normal [facility] Chlamydia/GC DNA, TPon 05-05 Chlamydia Probe, TP Negative Normal NEG [facility] Comment on above: Result Comment: [...] target. Performed By: #### C YTCGP #### [employer] [address] [place], [place] [id number] Process Cheese Cooker: King Boone MD Gonorrhea Probe, TP Negative Normal NEG [facility] Comment on above: Result Comment: [...] target. Performed By: #### C YTCGP #### [employer] [address] [place], [place] [id number] Process Cheese Cooker: King Boone MD HPV DNA High Riskon 05-05-20 20 HPV Interp Normal [facility] Comment on above: Result Comment: [...] purposes. Performed By: #### H PVH #### [facility] [address] [address] Process [employer] Cooker: King Boone MD HPV Type 16 Not Detected Normal [facility] Comment on above: Performed By: #### H PVH #### [address] [address] Process [employer] Cooker: King Boone MD HPV Type 18 Not Detected Normal [facility] Comment on above: Performed By: #### H PVH #### [facility] [employer] [address] [place] [address] Process [employer] Cooker: King Boone MD Other High Risk HPV Not Detected Normal [facility] Comment on above: Performed By: #### H PVH #### [address] [address] Process [employer] Cooker: King Boone MD HPV Sample .THIN PREP Normal [facility] Comment on above: Performed By: #### H PVH #### [facility] [address] [place] [address] Process [employer] Cooker: King Boone MD Source .ENDOCERVIX Normal [facility] Comment on above: Performed By: #### H PVH #### [facility] [address] [place] [address] Process [employer]er: King Boone MD Otheron 05-04-2020 Direct Exam Negative [facility] [place], [place] VAGINITIS DNA PROBEon 2019 Direct Exam Positive Abnormal [place], [place] Direct Exam Method of testing is a DNA probe intended for detection and identification of Diane species, Gardnerella vaginalis, and Trichomonas vaginalis nucleic acid in vaginal fluid specimens from patients with symptoms of vaginitis/vaginosis. [place], [place] Interpretation and review of laboratory results Abnormal [place] Special Requests NOT REPORTED [place] Specimen Description .VAGINAL SWAB [place] Vaginitis DNA Probeon 2019 Vaginitis DNA [...] of vaginitis/vaginosis. Report Status FINAL 05/04/2020 Normal [facility] Comment on above: Performed By: #### V AGDNA #### [facility] [employer] [address] [place] [address] Process Cheese Cooker: King Boone MD Cytologyon 05-03-2020 Cytology (NOTE) INTERPRETATION Endocervical material, (Thin prep vial, Imaging-assisted review): Specimen Adequacy: Satisfactory for evaluation. - Endocervical/transfor mation zone component present. Descriptive Diagnosis: Negative for intraepithelial lesion or malignancy. Shift in ray suggestive of bacterial vaginosis. Comments: High Risk HPV testing was ordered. Tile Molder Hand: JAYLIN Higgins(ASCP) Electronically Signed Out ana/05/07/2020 Procedure/Addendum [...] GYNECOLOGIC CYTOLOGY REPORT Patient Name: VY MCKEON [facility] Rec: [id number] Path Number: [id number] [facility] [employer] iPhone and Android [facility] PATHOLOGISTS [facility] ANATOMIC PATHOLOGY [address] [place] [id number] [facility] Comment on above: Performed By: #### P PPVP #### [employer] [address] [place] [id number] Process Cheese Cooker: King Boone MD Vital Signs Date Time Vital Sign Value Performing Clinician Facility 01-21-2024 11:59-0400 Body height 170.2 cm Ana Peoples MD Work Phone: [facility] 01-21-2024 11:59-0400 Body mass index (BMI) [Ratio] 30.07 kg/m2 Ana Peoples MD Work Phone: [facility] 01-21-2024 11:59-0400 Body weight 87.1 kg Ana Peoples MD Work Phone: [facility] 01-21-2024 11:59-0400 Diastolic blood pressure 75 mm[Hg] Ana Peoples MD Work Phone: [facility] 01-21-2024 11:59-0400 Heart rate 108 /min Ana Peoples MD Work Phone: [facility] 01-21-2024 11:59-0400 Systolic blood pressure 125 mm[Hg] Ana Peoples MD Work Phone: [facility] 01-21-2024 11:02-0400 Body height 170.2 cm Ana Peoples MD Work Phone: [facility] 01-21-2024 11:02-0400 Body mass index (BMI) [Ratio] 30.07 kg/m2 Ana Peoples MD Work Phone: [facility] 01-21-2024 11:02-0400 Body weight 87.09 kg Ana Peoples MD Work Phone: [facility] 01-04-2024 14:31-0400 Body temperature 97.11 [degF] Fransico Sharp MD Work Phone: [facility] 01-04-2024 14:31-0400 Diastolic blood pressure 83 mm[Hg] Fransico Sharp MD Work Phone: [facility] 01-04-2024 14:31-0400 Heart rate 94 /min Fransico Sharp MD Work Phone: [facility] 01-04-2024 14:31-0400 Respiratory rate 20 /min Fransico Sharp MD Work Phone: [facility] 01-04-2024 14:31-0400 SaO2% (BldA) [Mass fraction] 99 % Fransico Sharp MD Work Phone: [facility] 01-04-2024 14:31-0400 Systolic blood pressure 148 mm[Hg] Fransico Sharp MD Work Phone: [facility] 12-17-2023 13:42-0400 Body height 170.2 cm Freddie DAVILA [facility] 12-17-2023 13:42-0400 Body mass index (BMI) [Ratio] 29.47 kg/m2 Freddie Delgado APRN-MANAGER BENCH Work Phone: [facility] 12-17-2023 13:42-0400 Body temperature 98.71 [degF] Freddie Delgado BINGO USHER-MANAGER [employer]ENCH Work Phone: [facility] 12-17-2023 13:42-0400 Body weight 85.37 kg Freddie Delgado BINGO USHER-MANAGER [employer]ENCH Work Phone: [facility] 12-17-2023 13:42-0400 Diastolic blood pressure 80 mm[Hg] Freddie Delgado BINGO USHER-MANAGER [employer]ENCH Work Phone: [facility] 12-17-2023 13:42-0400 Heart rate 86 /min Freddie Delgado BINGO USHER-MANAGER [employer]ENCH Work Phone: [facility] 12-17-2023 13:42-0400 SaO2% (BldA) [Mass fraction] 96 % Freddie Delgado BINGO USHER-MANAGER [employer]ENCH Work Phone: [facility] 12-17-2023 13:42-0400 Systolic blood pressure 128 mm[Hg] Freddie Delgado BINGO USHER-MANAGER [employer]ENCH Work Phone: [facility] 11-12-2023 13:13-0500 Body mass index (BMI) [Ratio] 28.47 kg/m2 Dionne BRAN Work Phone: [facility] 11-12-2023 13:13-0500 Body weight 82.46 kg Dionne BRAN Work Phone: [facility] 11-12-2023 13:13-0500 Diastolic blood pressure 72 mm[Hg] Dionne BRAN Work Phone: [facility] 11-12-2023 13:13-0500 Systolic blood pressure 114 mm[Hg] Dionne BRAN Work Phone: [facility] 05-29-2023 13:25-0400 Body height 170.18 cm Shayla Valle Other [employer] Other 05-29-2023 13:25-0400 Body mass index (BMI) [Ratio] 28.22 kg/m2 Shayla Caseymond Other [employer] Other 05-29-2023 13:25-0400 Body temperature 97.8 [degF] Shayla Tori Other [employer] Other 05-29-2023 13:25-0400 Body weight 81.74 kg Shayla Tori Other [employer] Other 05-29-2023 13:25-0400 Diastolic blood pressure 79 mm[Hg] Shayla Tori Other [employer] Other 05-29-2023 13:25-0400 Respiratory rate 18 /min Shayla Tori Other [employer] Other 05-29-2023 13:25-0400 SaO2% (BldA) [Mass fraction] 96 % Shayla Tori Other [employer] Other 05-29-2023 13:25-0400 Systolic blood pressure 127 mm[Hg] Shayla Tori Other [employer] Other 03-19-2023 14:37-0400 Diastolic blood pressure 69 mm[Hg] INTEGRATION PROJECT MANAGER-C Shayla Tori Work Phone: [facility] 03-19-2023 14:37-0400 Heart rate 76 /min INTEGRATION PROJECT MANAGER-C Shayla Tori Work Phone: [facility] 03-19-2023 14:37-0400 Respiratory rate 16 /min INTEGRATION PROJECT MANAGER-C Shayla Tori Work Phone: [facility] 03-19-2023 14:37-0400 SaO2% (BldA) [Mass fraction] 96 % INTEGRATION PROJECT MANAGER-C Shayla Valle Work Phone: [facility] 03-19-2023 14:37-0400 Systolic blood pressure 119 mm[Hg] INTEGRATION PROJECT MANAGER-C Shayla Valle Work Phone: [facility] 03-19-2023 12:18-0400 Body height 170.18 cm INTEGRATION PROJECT MANAGER-C Shayla Valle Work Phone: [facility] 03-19-2023 12:18-0400 Body temperature 97.9 [degF] INTEGRATION PROJECT MANAGER-C Shayla Valle Work Phone: [facility] 03-19-2023 12:18-0400 Body weight 84.82 kg INTEGRATION PROJECT MANAGER-C Shayla Valle Work Phone: [facility] 02-12-2023 14:30-0400 Body height 170.18 cm Yoel Jarrett Other [employer] Other 02-12-2023 14:30-0400 Body mass index (BMI) [Ratio] 30.54 kg/m2 Yoel Jarrett Other [employer] Other 02-12-2023 14:30-0400 Body weight 88.45 kg Yoel Jarrett Other [employer] Other 02-12-2023 14:30-0400 Diastolic blood pressure 80 mm[Hg] Yoel Jarrett Other [employer] Other 02-12-2023 14:30-0400 Systolic blood pressure 127 mm[Hg] Yoel Scovansara Other [employer] Other 02-07-2023 10:00-0400 Body height 170.18 cm Shayla Tori Other [employer] Other 02-07-2023 10:00-0400 Body mass index (BMI) [Ratio] 30.54 kg/m2 Shayla Valle Other [employer] Other 02-07-2023 10:00-0400 Body temperature 97.9 [degF] Shayla Valle Other [employer] Other 02-07-2023 10:00-0400 Body weight 88.45 kg Shayla Valle Other [employer] Other 02-07-2023 10:00-0400 Respiratory rate 18 /min Shayla Valle Other [employer] Other 02-07-2023 10:00-0400 SaO2% (BldA) [Mass fraction] 97 % Shayla Vlale Other [employer] Other 05-03-2020 11:41-0400 BMI (Body Mass Index) 24.5 kg/m2 [facility] Work Phone: 05-03-2020 11:41-0400 Body Temperature 96.3 [degF] [facility] Work Phone: 05-03-2020 11:41-0400 Body weight 70.9 kg [facility] Work Phone: 05-03-2020 11:41-0400 BP Diastolic 80 mm[Hg] [facility] Work Phone: 05-03-2020 11:41-0400 BP Systolic 120 mm[Hg] [facility] Work Phone: 05-03-2020 11:41-0400 BSA (Body Surface Area) 1.82 m2 [facility] Work Phone: 05-03-2020 11:41-0400 Height 170.18 cm [facility] Work Phone: 05-03-2020 11:41-0400 Pulse (Heart Rate) 86 /min [facility] Work Phone: 05-03-2020 11:41-0400 Pulse Oximetry 93 % [facility] Work Phone: 05-03-2020 11:41-0400 Respiratory Rate 18 /min [facility] Work Phone: 04-08-2020 08:37-0400 BMI (Body Mass Index) 24.3 kg/m2 [facility] Work Phone: 04-08-2020 08:37-0400 Body Temperature 99 [degF] [facility] Work Phone: 04-08-2020 08:37-0400 Body weight 70.4 kg [facility] Work Phone: 04-08-2020 08:37-0400 BP Diastolic 80 mm[Hg] [facility] Work Phone: 04-08-2020 08:37-0400 BP Systolic 110 mm[Hg] [facility] Work Phone: 04-08-2020 08:37-0400 BSA (Body Surface Area) 1.82 m2 [facility] Work Phone: 04-08-2020 08:37-0400 Height 170.18 cm [facility] Work Phone: 04-08-2020 08:37-0400 Pulse (Heart Rate) 82 /min [facility] Work Phone: 04-08-2020 08:37-0400 Pulse Oximetry 98 % Sally Morejon [facility] Work Phone: 04-08-2020 08:37-0400 Respiratory Rate 18 /min Sally Morejon [facility] Work Phone: 03-29-2020 09:52-0400 Body height 170.18 cm Sally Morejon CNP Work Phone: [facility] Work Phone: Comment on above: self 03-29-2020 09:52-0400 Body mass index (BMI) [Ratio] 23.5 kg/m2 Sally Morejon CNP Work Phone: [facility] Work Phone: Comment on above: self 03-29-2020 09:52-0400 Body surface area Derived from formula 1.79 m2 Sally Morejon CNP Work Phone: [facility] Work Phone: Comment on above: self 03-29-2020 09:52-0400 Body weight 68.04 kg Sally Morejon CNP Work Phone: [facility] Work Phone: Comment on above: self 10-14-2019 08:30-0500 BMI (Body Mass Index) 24.1 kg/m2 Sally Morejon [facility] Work Phone: 10-14-2019 08:30-0500 Body Temperature 98.5 [degF] Sally Morejon [facility] Work Phone: 10-14-2019 08:30-0500 Body weight 69.76 kg Sally Morejon [facility] Work Phone: 10-14-2019 08:30-0500 BP Diastolic 78 mm[Hg] Sally Morejon [facility] Work Phone: 10-14-2019 08:30-0500 BP Systolic 132 mm[Hg] Sally [facility] Work Phone: 10-14-2019 08:30-0500 BSA (Body Surface Area) 1.81 m2 Sally [facility] Work Phone: 10-14-2019 08:30-0500 Height 170.18 cm [facility] Work Phone: 10-14-2019 08:30-0500 Pulse (Heart Rate) 88 /min [facility] Work Phone: 10-14-2019 08:30-0500 Pulse Oximetry 98 % [facility] Work Phone: 10-14-2019 08:30-0500 Respiratory Rate 18 /min [facility] Work Phone: 10-14-2019 08:30-0500 SaO2% (BldA) [Mass fraction] 98 % Sally [facility] Work Phone: [facility] Work Phone: 09-04-2019 13:52-0500 BMI (Body Mass Index) 22.9 kg/m2 [facility] Work Phone: 09-04-2019 13:52-0500 Body Temperature 98.5 [degF] [facility] Work Phone: 09-04-2019 13:52-0500 Body weight 66.23 kg [facility] Work Phone: 09-04-2019 13:52-0500 BP Diastolic 90 mm[Hg] [facility] Work Phone: 09-04-2019 13:52-0500 BP Systolic 122 mm[Hg] [facility] Work Phone: 09-04-2019 13:52-0500 BSA (Body Surface Area) 1.77 m2 [facility] Work Phone: 09-04-2019 13:52-0500 Height 170.18 cm [facility] Work Phone: 09-04-2019 13:52-0500 Pulse (Heart Rate) 98 /min [facility] Work Phone: 09-04-2019 13:52-0500 Pulse Oximetry 98 % Sally [facility] Work Phone: 09-04-2019 13:52-0500 Respiratory Rate 18 /min Sally [facility] Work Phone: 09-04-2019 13:52-0500 SaO2% (BldA) [Mass fraction] 98 % [facility] Work [facility]: [facility] Work Phone: 08-19-2019 09:32-0500 BMI (Body Mass Index) 23.2 kg/m2 [facility] Work Phone: 08-19-2019 09:32-0500 Body Temperature 98 [degF] Sally [facility] Work Phone: 08-19-2019 09:32-0500 Body weight 67.31 kg [facility] Work Phone: 08-19-2019 09:32-0500 BP Diastolic 80 mm[Hg] [facility] Work Phone: 08-19-2019 09:32-0500 BP Systolic 120 mm[Hg] [facility] Work Phone: 08-19-2019 09:32-0500 BSA (Body Surface Area) 1.78 m2 [facility] Work Phone: 08-19-2019 09:32-0500 Height 170.18 cm [facility] Work Phone: 08-19-2019 09:32-0500 Pulse (Heart Rate) 90 /min [facility] Work Phone: 08-19-2019 09:32-0500 Pulse Oximetry 98 % Sally [facility] Work Phone: 08-19-2019 09:32-0500 Respiratory Rate 18 /min Sally [facility] Work Phone: 08-19-2019 09:32-0500 SaO2% (BldA) [Mass fraction] 98 % Sally Morejon [facility] Work Phone: [facility] Work Phone: 07-28-2019 11:31-0400 BMI (Body Mass Index) 22.7 kg/m2 Sally [facility] Work Phone: 07-28-2019 11:31-0400 Body Temperature 98.8 [degF] Sally [facility] Work Phone: 07-28-2019 11:31-0400 Body weight 65.77 kg Sally [facility] Work Phone: 07-28-2019 11:31-0400 BP Diastolic 84 mm[Hg] Sally [facility] Work Phone: 07-28-2019 11:31-0400 BP Systolic 132 mm[Hg] [facility] Work Phone: 07-28-2019 11:31-0400 BSA (Body Surface Area) 1.76 m2 Sally [facility] Work Phone: 07-28-2019 11:31-0400 Height 170.18 cm Sally [facility] Work Phone: 07-28-2019 11:31-0400 Pulse (Heart Rate) 65 /min Sally [facility] Work Phone: 07-28-2019 11:31-0400 Pulse Oximetry 97 % Sally [facility] Work Phone: 07-28-2019 11:31-0400 Respiratory Rate 18 /min Sally [facility] Work Phone: 07-28-2019 11:31-0400 SaO2% (BldA) [Mass fraction] 97 % Sally Morejon [facility] Work Phone: [facility] Work Phone: Encounters Encounter Date Encounter Type Care Provider Facility Start: 03-06-2024 End: 03-06-2024 Telemedicine consultation with patient Ana Peoples MD Work Phone: Maternal Medicine Start: 03-06-2024 End: 03-06-2024 ambulatory Ana Peoples MD Work Phone: Maternal Medicine Comment on above: Skin cancer (Primary Dx) Start: 03-05-2024 End: 03-05-2024 ambulatory ELIAZAR NORMA Not Available Start: 03-04-2024 Telephone encounter Daisy Douglass Hematology/Oncology [...] t Update Start: 02-22-2024 End: 02-22-2024 [facility] Start: 02-20-2024 End: 02-20-2024 ambulatory [facility] Facility:[facility] Start: 02-13-2024 End: 02-15-2024 ambulatory [facility] Start: 02-11-2024 End: 02-11-2024 ambulatory ELIAZAR NORMA Not Available Start: 01-29-2024 End: 01-29-2024 ambulatory CANDACE MORAN [facility] Start: 01-28-2024 End: 01-28-2024 ambulatory DIONNE BARNHART Not Available Start: 01-25-2024 Telephone encounter Fransico kulkarni MD Work Phone: Plastic Surgery Comment on above: Appointment Start: 01-25-2024 End: 01-26-2024 ambulatory [facility] Start: 01-23-2024 ambulatory Usman [...] Appointment Start: 01-14-2024 End: 01-14-2024 amb[facility] Start: 01-10-2024 Telephone encounter [...] procedure Fransico Sharp MD Work Phone: [facility] Start: 12-26-2023 End: 12-27-2023 ambulatory FREDDIE ADRIAN DELGADO Facility:[facility] Start: 12-21-2023 Chart abstracting Usman rincon MD Work Phone: Hematology/Oncology Start: 12-17-2023 End: 12-17-2023 ambulatory [facility] Start: 12-17-2023 End: 12-17-2023 Office outpatient visit 10 minutes [facility] BINGO USHER-MANAGER BENCH Work Phone: [facility] Comment on above: Nausea and vomiting, unspecified vomiting type (Primary Dx); Psychophysiological insomnia Start: 12-10-2023 End: 12-10-2023 ambulatory ELIAZAR CASTANEDA Not Available Start: 12-07-2023 Documentation procedure Chris Antonio [facility] Work Phone: [facility] Comment on above: Outgoing Ca ll Start: 11-20-2023 End: 11-21-2023 Orders Only Roshni Rodriguez RN [facility]aternal Medic [facility] Comment on above: Placenta previa ante in second trimester (Primary Dx); Multigravida of advanced maternal age in second trimester Start: 11-20-2023 End: 11-20-2023 Office outpatient visit 15 minutes Fidencio Rojas MD Work Phone: Maternal Medicine [place] Comment on above: 20 weeks gestation o f (Primary Dx); Placenta previa antepartum in second trimester; Advanced maternal age in multigravida, second trimester Start: 11-13-2023 Orders Only Juan Ramon Sultana [facility]- [facility] Comment on above: Multigravida of adva nced maternal age in second trimester; Family history of autism; Family history of mental disorder Start: 11-12-2023 Documentation procedure Chris Antonio LC Work Phone: [facility]aternal- [facility] Comment on above: Outgoing Ca ll [...] survey; Chronic cluster headache, not intractable Start: 11-12-2023 End: 11-12-2023 ambulatory DIONNE BARNHART Not Available Start: 10-29-2023 Documentation procedure Chris Antonio LC Work Phone: Maternal- [facility] Comment on above: Incoming Ca ll Start: 10-23-2023 Orders Only Angela Guzman [employer] [facility] ern[facility]- [facility] Comment on above: Multigravida of adva nced maternal age in second trimester (Primary Dx); Family history of autism; Family history of mental disorder Start: 10-22-2023 End: 10-22-2023 ambulatory ELIAZAR R NORMA [facility] Start: 10-22-2023 End: 10-22-2023 Telemedicine consultation with patient Katarina Antonio [facility] Work Phone: M[facility]- [facility] Comment on above: Multigravida of adva nced maternal age in second trimester (Primary Dx); Family history of autism; Family history of mental disorder Start: 10-08-2023 End: 10-08-2023 ambulatory ELIAZAR NORMA Not Available Start: 08-30-2023 End: 08-30-2023 ambulatory ELIAZAR NORMA Not Available Start: 05-29-2023 End: 05-29-2023 ambulatory Shayla Valle Other [employer] Other Start: 05-29-2023 Office outpatient vi sit 15 minutes Shayla Valle [facility] Start: 03-19-2023 End: 03-19-2023 ambulatory NON STAFF Facility:[facility] Start: 03-19-2023 End: 03-19-2023 Admission to same day surgery center INTEGRATION PROJECT MANAGER-C Shayla Valle Work Phone: [facility] Work Phone: Start: 03-19-2023 End: 03-19-2023 ambulatory NON STAFF [facility] Work Phone: Start: 02-12-2023 End: 02-12-2023 ambulatory Yoel Jarrett Other [employer] Other Start: 02-12-2023 Office outpatient ne w 30 minutes Yoel Jarrett [facility] Start: 02-09-2023 End: 02-10-2023 ambulatory MANAGER BENCH VITO AICHJUVENAL Facility:[facility] Start: 02-07-2023 Office outpatient ne w 20 minutes Shayla Valle [facility] Start: 02-07-2023 End: 02-07-2023 ambulatory Shayla Valle [facility] [employer] Other Start: 02-07-2023 End: 02-07-2023 Patient encounter procedure INTEGRATION PROJECT MANAGER-Adri Valle Work Phone: [facility] Work Phone: Start: 12-27-2022 ambulatory PRADEEP COULTER Facil ity:[facility] Start: 12-16-2022 End: 12-17-2022 ambulatory PRADEEP REYNAGAA YFN Facility:[facility] Start: 07-04-2022 End: 07-05-[address] ELIAZAR CASTANEDA . Facility:[facility] Start: 06-08-2022 End: 07-01-[address] ELIAZAR CASTANEDA . Facility:[facility] Start: 05-23-2022 End: 05-23-[address] ELIAZAR CASTANEDA . Facility:[facility] Start: 05-22-2022 Encounter for preprocedural laboratory examination DR ELIAZAR CASTANEDA . [facility] Start: 05-19-2022 End: 05-20-[address] ELIAZAR CASTANEDA . Facility:[facility] Start: 05-19-2022 End: 05-20-2022 Encounter for preprocedural laboratory examination DR ELIAZAR CASTANEDA . Facility:[facility] Start: 05-18-2022 End: 05-19-[address] ELIAZAR CASTANEDA . Facility:[facility] Start: 05-03-2022 End: 05-04-[address] ELIAZAR CASTANEDA . Facility:[facility] Start: 05-03-2020 End: 05-03-2020 ambulatory Candace Grossman Work Phone: [facility] Work Phone: Start: 05-03-2020 End: 05-04-2020 Patient encounter procedure CANDACE GROSSMAN [facility] Start: 05-03-2020 End: 05-03-2020 Subsequent hospital visit by physician ARMANI FRY [facility] Start: 04-08-2020 End: 04-08-2020 ambulatory Linnea Escobar Work Phone: [facility] Work Phone: Start: 03-29-2020 End: 03-29-2020 General Emilee Short Work Phone: [facility] Work Phone: Start: 03-29-2020 End: 03-29-2020 Telemedicine consultation with patient Candace Grossman Work Phone: [facility] Work Phone: Start: 01-08-2020 End: 01-08-2020 Telemedicine consultation with patient Candace Grossman Work Phone: [facility] Work Phone: Start: 12-30-2019 End: 12-30-2019 Patient encounter procedure Emilee Short Work Phone: [facility] Work Phone: Start: 12-30-2019 End: 12-30-2019 Telemedicine consultation with patient Candace Grossman Work Phone: [facility] Work Phone: Start: 10-14-2019 End: 10-14-2019 Established patient Bobbi Colon Work Phone: [facility] Work Phone: Start: 09-04-2019 End: 09-04-2019 Established patient Bobbi Colon Work Phone: [facility] Work Phone: Start: 08-19-2019 End: 08-19-2019 Nursing evaluation of patient and report Candace Grossman Work Phone: [facility] Work Phone: Start: 07-28-2019 End: 07-28-2019 Established patient Bobbi Colon Work Phone: [facility] Work Phone: Start: 07-28-2019 End: 07-28-2019 New patient Candace Grossman Work Phone: [facility] Work Phone: Start: 08-13-2017 End: 08-14-2017 Ambulatory [facility] Facility:[facility] Procedures Date Procedure Procedure Detail Performing Clinician Start: 01-21-2024 Us preg uterus after 1st trimest 10/01 gestation Ana Peoples MD Work Phone: Start: 11-12-2023 Urnls dip stick/tabl et rgnt non-auto w/o micrscp Dionne BRAN Work Phone: Start: 11-12-2023 URETHRITIS/DISCHARGE PLUS VAGINITIS (HTRX) Dionne BRAN Work Phone: Start: 10-25-2023 UNLISTED LAB TEST Miriam Antonio [facility] Work Phone: Start: 09-10-2023 Adult depression scr eening assessment Katarina Antonio [facility] Work Phone: Start: 03-19-2023 Esophagogastroduodenoscopy INTEGRATION PROJECT MANAGER-C Shayla Valle Work Phone: Start: 03-01-2023 Microscopic observat ion [Identifier] in Cervix by Cyto stain Dionne BRAN Work Phone: Start: 02-07-2023 X-ray of right knee INTEGRATION PROJECT MANAGER- C Shayla Valle Work Phone: Start: 05-03-2020 [...] Work Phone: Start: 04-08-2020 Etonogestrel implant system Linneamonroe Escobar Work Phone: Start: 04-08-2020 Insj non-biodegradab le drug delivery implant Linnea Escobar Work Phone: Start: 04-08-2020 Lidocaine 2% with Ep inephrine INJ (Xylocaine W/Epi) Lninea Escobar Work Phone: Start: 04-08-2020 Syst bp lt 130 mm hg Eva Escobar Work Phone: Start: 04-08-2020 Therapeutic prophyla ctic/dx injection subq/im Linnea Escobar Work Phone: Start: 03-29-2020 no recent change in medical history Sally Morejon CNP Work Phone: Start: 03-29-2020 Psychotherapy w/howie ent 30 minutes Emilee Sanford Work Phone: Start: 01-08-2020 Patient gave verbal consent for telehealth Sally Jean-Pierre MANAGER BENCH Work Phone: Start: 10-14-2019 Diast bp <80 [...] Start: 07-28-2019 Psychotherapy w/howie ent 30 minutes Bobbileif Colon Work Phone: Start: 07-28-2019 Pt-focused hlth risk assmt score doc stnd instrm Candace Grossman Work Phone: Start: 07-28-2019 Removal non-biodegra dable drug delivery implant Candace Grossman Work Phone: Start: 07-28-2019 RESPIRATORY DISORDERS C assie Jean-Pierre Start: 07-28-2019 Surgical procedure Chela Morejon Start: [...] RSV Vaccine (1 - 1-dose 60+ series) [facility] Start: 01-02-2034 Urine microalbumin profile DTaP,Tdap,Td Vaccine (7 - Td or Tdap) [facility] Start: 03-12-2028 Screening for malign ant neoplasm of cervix HPV/Cotest [facility] Start: 03-01-2028 Screening for malign ant neoplasm of cervix [facility] Start: 01-25-2028 DTaP,Tdap and Td Vaccines (6 - Td or Tdap) DTaP,Tdap and Td Vaccines (6 - Td or Tdap) [facility] Start: 01-25-2028 Urine microalbumin profile DTaP,Tdap,Td Vaccine (2 - Td or Tdap) [facility] Start: 12-16-2024 Adult BMI Screening Adult BMI Screen ing [facility] Start: 12-16-2024 Tobacco Screening Tobacco Screening [facility] Start: 10-23-2024 End: 10-23-2024 Unlisted Lab Test Unlisted Lab Test Lab Routine Multigravida of advanced maternal age in second trimester Family history of autism Family history of mental disorder Expected: 10/23/2024 (Approximate), Expires: 10/23/2024 [facility] Work Phone: Comment on above: Expected: 10/23/2024 (Approximate), Expires: 10/23/2024 Start: 09-10-2024 Adult BMI Screening Adult BMI Screen ing [facility] Start: 09-10-2024 Depression Screening Depression Scre ening [facility] Start: 09-10-2024 Tobacco Screening Tobacco Screening [facility] Start: 03-17-2024 End: 03-17-2024 Admission to same day surgery center 03/17/2024 11:30 AM EDT Visit (SP) Office Plastic Surgery [address] [place] [address] Tana Cervantes APRN.MANAGER BENCH [address] [place] [address] post op Plastic Surgery Comment on above: [...] 10:45 AM EDT Hospital Encounter Admitting [address] [place] [address] Fransico Sharp MD [address] [place] [address] Malignant melanoma of skin (HCC) [C43.9] Admitting Comment on above: Malignant melanoma o f skin (HCC) [C43.9] Start: 03-14-2024 End: 03-14-2024 Patient encounter procedure 03/14/2024 8:30 AM EDT Appointment Molecular Imaging [address] [place] [address] MELANOMA-NM LYMPH NODE IMAGING Molecular Imaging Comment on above: MELANOMA-NM LYMPH NO DE IMAGING Start: 03-07-2024 End: 03-07-2024 Anesthesia consultation 03/07/2024 1:20 PM EDT PAT Pre Anesthesia [address] [place] [address] 9, Pacc [address] [place] [address] pacc Pre Anesthesia Comment on above: pacc Start: 03-06-2024 End: 03-06-2024 Patient encounter procedure 03/06/2024 8:[address] [facility]aternal [facility] [address] [address] [place] [address] [place] [address] Consult Maternal Medicine Comment on above: Consult Start: 02-22-2024 End: 02-22-2024 Patient encounter procedure 02/22/2024 10:45 AM EDT Appointment Radiology Pet [facility] [address] [place] [address] ct chest and stn w Radiology Pet CT Comment on above: ct chest and stn w Start: 02-20-2024 End: 02-20-2024 ambulatory 02/20/2024 3:00 PM EDT Results Only [facility] [address] [place] [address] [facility] Start: 02-20-2024 End: 01-22-2025 CBC W Auto Differential panel - Blood COMPLETE BLOOD COUNT AND DIFFERENTIAL Lab Routine Malignant melanoma of skin (HCC) Expected: 02/20/2024 (Approximate), Expires: 01/22/2025 [facility] Comment on above: Expected: 02/20/2024 (Approximate), Expires: 01/22/2025 Start: 02-20-2024 End: 01-22-2025 Comprehensive metabolic 2000 panel - Serum or Plasma COMPREHENSIVE METABOLIC PANEL Lab Routine Malignant melanoma of skin (HCC) Expected: 02/20/2024 (Approximate), Expires: 01/22/2025 [facility] Comment on above: Expected: 02/20/2024 (Approximate), Expires: 01/22/2025 Start: 02-20-2024 End: 02-21-2025 CT Chest W contrast IV CT CHEST W IVCON Radiology Routine Malignant melanoma of skin (HCC) Expected: 02/20/2024 (Approximate), Expires: 02/21/2025 [facility] Comment on above: Expected: 02/20/2024 (Approximate), Expires: 02/21/2025 Start: 02-20-2024 End: 02-21-2025 CT Neck W contrast IV CT NECK SOFT TISSUE W IVCON Radiology Routine Malignant melanoma of skin (HCC) Expected: 02/20/2024 (Approximate), Expires: 02/21/2025 [facility] Work Phone: Comment on above: Expected: 02/20/2024 (Approximate), Expires: 02/21/2025 Start: 02-20-2024 End: 01-22-2025 Lactate dehydrogenase [Enzymatic activity/volume] in Serum or Plasma LACTATE DEHYDROGENASE Lab Routine Malignant melanoma of skin (HCC) Expected: 02/20/2024 (Approximate), Expires: 01/22/2025 [facility] Comment on above: Expected: 02/20/2024 (Approximate), Expires: 01/22/2025 Start: 02-19-2024 Subsequent hospital visit by physician 02/19/2024 Hospital [facility] [address] [id number] Fransico Sharp MD [address] [place] [address] Malignant melanoma of skin (HCC) [...] Start: 02-12-2024 End: 02-12-2024 Patient encounter procedure [facility] Comment on above: MELANOMA-NM LYMPH NO DE IMAGING Start: 01-14-2024 End: 01-14-2024 Telemedicine consultation with patient 01/14/2024 10:15 AM EDT Telemedicine [facility] [address] [place] [address] [address] [place] [address] [place] [address] [place] [address], [address] [place] [address] [facility] Start: 12-17-2023 End: 12-17-2023 Patient encounter procedure 12/17/2023 1:45 PM EDT Office Visit [facility] [address] [facility] [place] [address] Freddie Delgado APRN-MANAGER BENCH [address] [place], [place] [address] [facility] Start: 12-10-2023 End: 12-10-2023 Patient encounter procedure 12/10/2023 2:20 PM EDT Routine [facility] BCP OB [address] [place] [address] Eliazar Castaneda [address] [place] [address] [facility] Start: 11-20-2023 End: 11-20-2023 Patient encounter procedure 11/20/2023 8:00 AM EST Appointment [facility] [address] [place] [address] [facility] Start: 11-12-2023 End: 11-12-2024 US for US OB ANATOMY SINGLE W US OB CERVICAL LENGTH Imaging Routine Screening, , for anatomic survey Expected: 11/12/2023 (Approximate), Expires: 11/12/2024 [facility] Comment on above: Expected: 11/12/2023 (Approximate), Expires: 11/12/2024 Start: 10-01-2023 Behavioral Health Screening Behavioral Health Screening [facility] Start: 10-01-2023 Depression Assessment Depression Ass essment [facility] Start: 06-01-2023 Covid-19 Vaccine ( season) Covid-19 Vaccine ( season) [facility] Start: 06-01-2023 Influenza vaccination P [facility] Start: 05-03-2023 Screening for malign ant neoplasm of cervix Pap Smear [facility] Start: 03-19-2023 [facility] Start: 06-02-2020 [facility] Work Phone: Start: 06-01-2020 Influenza vaccination Flu vaccine (# 1) [place], [place] Start: 12-02-2019 Dental Comp Exam [facility] Work Phone: Start: 11-17-2019 Women's Health [facility] Work Phone: Start: 10-21-2019 Lipid 1996 panel [facility] Work Phone: Start: 10-14-2019 [facility] Work Phone: Comment on above: Note: Please make a referral to: Start: 09-16-2019 Dental Comp Exam [facility] Work Phone: Start: 08-25-2019 Medical Establ ished Patient [facility] Work Phone: Start: 08-20-2019 Urine Pregnanc y Test, In House [facility] Work Phone: Start: 2018 Screening for malign ant neoplasm of cervix HPV Testing [facility] Start: 2009 Screening for malign ant neoplasm of cervix [facility] Start: 2007 DTaP/Tdap/Td vaccine (1 - Tdap) DTaP/Tdap/Td vaccine (1 - Tdap) [place], [place] Start: 2007 Hepatitis B Vaccine (1 of 3 - 19+ 3-dose series) Hepatitis B Vaccine (1 of 3 - 19+ 3-dose series) [facility] Start: 2006 Adult BMI Follow Up Plan Adult BMI Follow Up Plan [facility] Start: 2006 Annual PCP Team Nude Model lorne Disease Visit Annual PCP Team Chronic Disease Visit [facility] Start: 2006 Hepatitis C screening Hepatitis C Sc reening [facility] Start: 2006 HIV screening HIV Screening [facility] Start: 2006 Spirometry Spirometry [facility] Start: 2003 HIV screening HIV screen [facility] [place], [place] Start: 1989 Varicella vaccine (1 of 2 - 2-dose childhood series) Varicella vaccine (1 of 2 - 2-dose childhood series) [place], [place] Adjt tis trns/reargm t f/c/c/m/n/a/g/h/f 10sqcm/< TRANSFER / REARRANGEMENT ADJACENT TISSUE FACE/NECK DEFECT 10 SQ CM OR LESS Malignant melanoma of skin (HCC) IMASTE A60 Alpha fetoprotein, maternal Alpha fetoprotein, maternal Lab Routine Second trimester Ordered: 11/12/2023 [facility] Work Phone: Comment on above: Ordered: 11/12/2023 Bx/exc lymph node op en deep cervical node BIOPSY NODE CERVICAL NECK Malignant melanoma of skin (HCC) [facility] A60 End: 05-03-2020 C.trachomatis N.gonorrhoeae DNA, Thin Prep C.trachomatis N.gonorrhoeae DNA, Thin Prep Microbiology Routine Once for 1 Occurrences starting 05/03/2020 until 05/03/2020 [place], [place] Comment on above: Once for 1 Occurrenc es starting 05/03/2020 until 05/03/2020 C.trachomatis N.gonorrhoeae DNA, Thin Prep C.trachomatis N.gonorrhoeae DNA, Thin Prep Microbiology Routine 05/03/2020 7:32 AM EDT [place] Excision malignant lesion f/e/e/n/l >4.0 cm EXCISION MALIGNANT LESION FACE OVER 4.0 CM Malignant melanoma of skin (HCC) PLASTICS A60 Inj radioactive trac er for id of sentinel node INJECTION PROCEDURE RADIOACTIVE TRACER FOR IDENTIFICATION OF SENTINEL NODE Malignant melanoma of skin (HCC) PLASTICS A60 Intraop sentinel lym ph node id w/dye injection INTRAOPERATIVE ID OF SENTINEL LYMPH NODE(S) INCL'D INJECTION OF NON-RAD DYE WHEN PERFORMED Malignant melanoma of skin (HCC) [facility] A60 End: 02-02-2025 NM Lymph node Views NM LN [facility] Radiology Routine Malignant melanoma of skin (HCC) 1 Occurrences starting 01/06/2024 until 02/02/2025 [facility] Work Phone: Comment on above: 1 Occurrences starti ng 01/06/2024 until 02/02/2025 Patient Education Hiatal Hernia (DC) [facility] Work Phone: [facility] A60 Immunizations Immunization Date Immunization Notes Care Provider Maryuri gómez 05-11-2023 influenza virus vaccine, unspecified formulation Katarina Antonio [facility] Work Phone: [employer] [facility] 07-16-2022 SARS-COV-2 (COVID-19 ) vaccine, mRNA, spike protein, LNP, bivalent, PF Dionne BRAN Work Phone: [facility] 01-24-2018 tetanus toxoid, redu camden diphtheria toxoid, and acellular pertussis vaccine, adsorbed Dionne BRAN Work Phone: [facility] Payers Date Payer Category Payer Self-pay 2022 Medicaid [id number] 2019 Unknown 1 - [employer] [id number] 2017 Unknown [id number] 1988 Unknown [id number] 2.16.84 0.1.260977.3.579.2.593 1988 Unknown [id number] 2.16.84 0.1.715644.3.579.2.593 1988 Unknown [id number] 2.16.84 0.1.782632.3.579.2.593 1988 Unknown [id number] 2.16.84 0.1.774267.3.579.2.593 1988 Unknown [id number] 2.16.84 0.1.739427.3.579.2.593 1988 Unknown [id number] 2.16.84 0.1.968633.3.579.2.593 1988 Unknown [id number] 2.16.84 0.1.865528.3.579.2.593 1988 Unknown [id number] 2.16.84 0.1.149063.3.579.2.593 1988 Unknown [id number] 2.16.84 0.1.037591.3.579.2.593 1988 Unknown [id number] 2.16.8 40.1.570162.3.579.2.1286 1988 Unknown [id number] 2.16.8 40.1.164906.3.579.2.1286 1988 Unknown [id number] 2.16.8 40.1.264327.3.579.2.1286 1988 Unknown [id number] 2.16.8 40.1.030897.3.579.2.1286 1988 Unknown [id number] 2.16.8 40.1.103456.3.579.2.6 1988 Unknown [id number] 2.16.84 0.1.996624.3.579.2.6 1988 Unknown [id number] 2.16.8 40.1.537848.3.579.2.1285 1988 Unknown [id number] 2.16.8 40.1.564648.3.579.2.1286 1988 Unknown [id number] 2.16.8 40.1.019766.3.579.2.1285 1988 Unknown [id number] 2.16.84 0.1.404746.3.579.2.1258 1988 Unknown [id number] 2.16.84 0.1.437323.3.579.2.1258 1988 Unknown [id number] 2.16.84 0.1.038324.3.579.2.1258 1988 Unknown [id number] 2.16.84 0.1.613826.3.579.2.1258 1988 Unknown [id number] 2.16.84 0.1.743926.3.579.2.1258 1988 Unknown [id number] 2.16.84 0.1.487232.3.579.2.1258 1988 Unknown [id number] 2.16.84 0.1.919634.3.579.2.1258 1988 Unknown [id number] 2.16.84 0.1.387613.3.579.2.1258 1988 Unknown [id number] 2.16.840 .1.432705.3.579.2.1259 1959 Medicaid [id number] 2. [id number] Self-pay [id number] 2.16.840 .1.234211.3.140.1.57570.5.4 Unknown [facility] [employer] [id number] Unknown [id number] 2.16.8 40.1.558372.3.579.2.531 Unknown [id number] 2.16.8 40.1.783239.3.579.2.531 Social History Date Type Detail Facility Assertion Alcohol consumpt ion screening (procedure) [facility] Work Phone: [facility] Finding of alcoh ol intake (finding) [facility] Work Phone: Assertion Sexually active (finding) [facility] Work Phone: Assertion Gender identity finding (finding) [facility] Work Phone: Assertion Finding of sexua l orientation (finding) [facility] Work Phone: Tobacco smoking status Unknown if ever smoked [facility] Assertion Emotional stress (finding) [facility] Work Phone: Start: 1990 Sex Assigned At Not on file [place], [place] Assertion Contraception (finding) [facility] Work Phone: Start: 09-10-2023 End: 02-20-2024 Sex Assigned At [facility] Start: 1990 Sex Assigned At Female [facility] Start: 04-05-2022 End: 12-26-2023 Tobacco smoking status NHIS Never smoked tobacco [facility] Start: 04-05-2022 End: 12-26-2023 Tobacco use and exposure Smokeless tobacco non-user [facility] Start: 10-10-2023 End: 12-17-2023 Alcohol intake Ex-drinker (finding) [facility] Start: 09-10-2023 End: 02-20-2024 History of Social function [facility] How hard is it for you to pay for the very basics like food, housing, medical care, and heating Very hard [facility] Start: 07-12-2023 [facility] Start: 11-12-2023 Alcohol intake Lifetime non-d rhys (finding) [facility] Start: 03-09-2023 Education 21 [facility] Start: 03-09-2023 Alcohol Comment Caffeine intak e: 1-2 cups per day coffee, pop [facility] Start: 12-26-2023 End: 01-21-2024 Alcohol intake Current drinker of alcohol (finding) [facility] NEGATED: Highlighted row Assertion He has not had 5 or more drinks in a day within the past year. 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 I emailed with her oncologist via [employer]. He is ok with her going to39 weeks. I spoke with her OBGYN physician, Dr. Castaneda, who is in agreement. Pt will deliver at [facility]. Pt tells me induction set up for 38 5/7 which is in the gestational age range I discussed with him. Plan is to have Placenta couriered to [facility] for path as melanoma can spread to placenta. Pt to let me, oncologist and surgeon know after delivery so that follow up care can be arranged for treatment of melanoma and I can look for pathology results on placenta. Pt reports good movement. Some Ucs, irregular. No bleeding or leaking. Pt reports she saw yesterday. All questions answered. Ana Peoples MD documented in this encounter [facility]06-06-2024 NoteHNO ID: [id number] Author: ANA PEOPLES MD Service: ? Author Type: Physician Type: Progress Notes Filed: 03/06/2024 08:08 Note Text: [facility] STAFF Video visit follow up I have communicated my name and active licensure. The patient's identity and physical location were verified at the time of this visit. Either the patient or their legal outbound sales representative has been informed of the risks and benefits of -- and alternatives to -- treatment through a remote evaluation and consents to proceed with the evaluation remotely. Pt is a 33 year old at 36w0d who has the following issues. Please see recommendations in problem based charting. Problem List Items Addressed This Visit Oncology Skin cancer - Primary Current Assessment AND Plan 03/06/2024 [facility] Pt had CT of neck and chest. I emailed with her oncologist via [employer]. He is ok with her going to 39 weeks. I spoke with her OBGYN physician, Dr. Castaneda, who is in agreement. Pt will deliver at [facility]. Pt tells me induction set up for 38 5/7 which is in the gestational age range I discussed with him. Plan is to have Placenta couriered to [facility] for path as melanoma can spread to placenta. Pt to let me, oncologist and surgeon know after delivery so that follow up care can be arranged for treatment of melanoma and I can look for pathology results on placenta. Pt reports good movement. Some Ucs, irregular. No bleeding or leaking. Pt reports she saw Dr. Castaneda yesterday. All questions answered. MD Ana Britton, [facility]06-06-2024 History of Present illness Narrative* Ana Peoples MD - 03/06/2024 7:58 AM EDT [facility] STAFF Video visit follow up I have communicated my name and active licensure. The patient's identity and physical location wereverified at the time of this visit. Either the patient or their legal outbound sales representative has been informed of the risks and benefits of -- and alternatives to -- treatment through a remote evaluation andconsents to proceed with the evaluation remotely. Pt is a 33 year old at 36w0d who has the following issues. Please see recommendations in problem based charting. Problem List Items Addressed This Visit Oncology Skin cancer - Primary Current Assessment & Plan 03/06/2024 [facility] Pt had CT of neck and chest. I emailed with her oncologist via [employer]. He is ok with her going to39 weeks. I spoke with her OBGYN physician, Dr. Castaneda, who is in agreement. Pt will deliver at [facility]. Pt tells me induction set up for 38 02/04 which is in the gestational age range I discussed with him. Plan is to have Placenta couriered to [facility] for path as melanoma can spread to placenta. Pt to let me, oncologist and surgeon know after delivery so that follow up care can be arranged for treatment of melanoma and I can look for pathology results on placenta. Pt reports good movement. Some Ucs, irregular. No bleeding or leaking. Pt reports she saw yesterday. All questions answered. MD Ana Britton MD [facility] Telephone encounter Note * Telephone Encounter - Daisy Murray RN - 03/05/2024 9:23 AM EDT Pt updated Daisy Murray RN [facility]06-05-2024 Miscellaneous Notes* Telephone Encounter - Daisy Murray RN - 03/05/2024 9:23 AM EDT Pt updated Daisy Murray RN * Telephone Encounter - Usman Goldberg MD - 03/05/2024 8:59 AM EDT I think I already communicated that with her - CT's were negative for any metastatic disease. * Telephone Encounter - Daisy Murray RN - 03/04/2024 3:57 PM EDT Pt requesting CT results Louisa: Please review and advise Daisy Murray RN [facility] Telephone encounter Note * Telephone Encounter - Usman Goldberg MD - 03/05/2024 8:59 AM EDT I think I already communicated that with her - CT's were negative for any metastatic disease. [facility] Work Phone: [phone]) [phone] Telephone encounter Note* Telephone Encounter - Daisy Murray RN - 03/04/2024 3:57 PM EDT Pt requesting CT results Louisa: Please review and advise Daisy Murray RN [facility]06-03-2024 Telephone encounter Note* Telephone Encounter - Surjit Griggs RN - 03/03/2024 1:43 PM EDT Spoke to patient about cancelling surgery scheduled for 03/14. Patient indicated that her imaging was negative and she does not want to pursue surgery until post . Induction scheduled for 03/24. Dr. Sharp notified and indicated it was okay to have the WLE and SLNB post . Instructions provided to reschedule BIBI. [facility]06-03-2024 Miscellaneous Notes* Telephone Encounter - Surjit Griggs RN - 03/03/2024 1:43 PM EDT Spoke to patient about cancelling surgery scheduled for 03/14. Patient indicated that her imaging was negative and she does not want to pursue surgery until post . Induction scheduled for 03/24. Dr. Sharp notified and indicated it was okay to have the WLE and SLNB post . Instructions provided to reschedule BIBI. * Telephone Encounter - Ayala Nunez - 02/29/2024 3:25 PM EDT Pt calling in to cancel surgery on 03/14 and pre op appointment. Can you call her back? Thank you documented [facility] Telephone encounter Note * Telephone Encounter - Ana Peoples MD - 03/03/2024 11:03 AM EDT 03/03/2024 MFM Message left on pts phone to look at her my chart messages. Ana Peoples MD [facility]06-03-2024 Miscellaneous Notes* Telephone Encounter - Ana Peoples MD - 03/03/2024 11:03 AM EDT 03/03/2024 MFM Message left on pts phone to look at her my chart messages. Ana Peoples MD [facility]05-[facility] Telephone encounter Note * Telephone Encounter - Ayala Nunez - 02/29/2024 3:25 PM EDT Pt calling in to cancel surgery on 03/14 and pre op appointment. Can you call her back? Thank you [facility]05-28-2024 Telephone encounter Note* Telephone Encounter - Usman Goldberg MD - 02/26/2024 2:58 PM EDT She texted me - CT's look good. Will need a chest ct later. [facility] Work Phone: [phone]) [phone] Miscellaneous Notes* Telephone Encounter - Usman Goldberg MD - 02/26/2024 2:58 PM EDT She texted me - CT's look good. Will need a chest ct later. * Telephone Encounter - Sylvia Alcala HUC - 02/26/2024 12:43 PM EDT Patient calling. Doesn't know how to proceed. States her oncologist is out of town and no one can read the results. States she is 35 weeks . Please call patient back to discuss. * Telephone Encounter - Daisy Murray RN - 02/26/2024 12:21 PM EDT Pt calling for CT results. She is aware Dr Deshpande is out of office this week and will be in touch withhis response Sunday. Louisa: Please advise Daisy Murray RN documented in this encounterC[facility]05-[facility]-2024 Telephone encounter Note * Telephone Encounter - Sylvia Alcala HUC - 02/26/2024 12:43 PM EDT Patient calling. Doesn't know how to proceed. States her oncologist is out of town and no one can read the results. States she is 35 weeks . Please call patient back to discuss. [facility]05-28-2024 Telephone encounter Note* Telephone Encounter - Daisy Murray RN - 02/26/2024 12:21 PM EDT Pt calling for CT results. She is aware Dr Deshpande is out of office this week and will be in touch withhis response Sunday. Louisa: Please advise Daisy Murray RN [facility]05-24-2024 NoteHNO ID: [id number] Author: PACHECO BOWEN RN Service: ? Author [...] Mckeon DATE: February 22, 2024 TIME: 10:46 [facility]05-24-2024 NoteHNO ID: [id number] Author: BRANDON RDZ, (R) Service: ? Author Type: Technologist Type: Progress [...] PATIENT PRESENTS WITH AN IMPLANTABLE OR ATTACHED PROGRAM SUPPORT CLERK: No RADIOLOGY DEPARTMENT: CT; Exam(s) Completed: Chest and Neck PERIPHERAL IV DATA: Site assessment: Clean,Dry and Intact, Site disposition Discontinued SIGNED BY: RT Dante(R) February 22, 2024 11:10 [facility]04-26-2024 Telephone encounter Note* Telephone Encounter - Cynthia Petty - 01/25/2024 1:47 PM EDT Pt is not able to make the appt on 02/11; aloso wondering if this should be on March 14 instead? Thanks [facility]04-26-2024 Miscellaneous Notes* Telephone Encounter - Cynthia Petty - 01/25/2024 1:47 PM EDT Pt is not able to make the appt on 02/11; aloso wondering if this should be on March 14 instead? Thanks documented in this encounterC[facility]04-25-2024 Telephone encounter Note * Telephone Encounter - Angela Hilario - 01/24/2024 12:44 PM EDT Vy is scheduled for her CT scan on 02/21 at 11am. She is scheduled for her labwork still, on 02/19. I spoke with Vy and she is in agreement. ThanksAngela [facility]04-25-2024 Miscellaneous Notes* Telephone Encounter - Angela Hilario - 01/24/2024 12:44 PM EDT Vy is scheduled for her CT scan on 02/21 at 11am. She is scheduled for her labwork still, on 02/19. I spoke with Vy and she is in agreement. Angela Arthur * Telephone Encounter - Brandon Churchill RN - 01/24/2024 12:23 PM EDT Clerical: Please call pt to schedule CT scans. Brandon Churchill RN * Telephone Encounter - Usman Goldberg MD - 01/24/2024 12:18 PM EDT It's ok to move up - but I'd want to know closer to delivery (33 weeks - 34 weeks) because then there won't be a need for additional scans later. Labs are to be done prior to CT. * Telephone Encounter - Brandon Churchill RN - 01/24/2024 9:33 AM EDT Images from the original note were not [...] CT ahead of 02/19? Brandon Churchill RN * Telephone Encounter - Daisy Murray RN - 01/24/2024 9:19 AM EDT Is the lab appointment I ve been scheduled part of the CT I need done? I ll be 34 weeks by the timeI get the blood work on February 19. But it doesn t say CT in there at all. Just curious because if ithas spread then they wanna deliver at 36 weeks and that doesn t seem like enough time. Vy Deshpande: Please advise Daisy Murray RN * Telephone Encounter - Usman Goldberg MD - 01/23/2024 4:24 PM EDT We won's be doing scans for 4 weeks.... that works out to be around 33 weeks gestation Does that sound right? (February 19) Thanks, louisa. * Telephone Encounter - Brandon Churchill RN - 01/23/2024 3:54 PM EDT Pt calls regarding CT scans. Please place orders. Thanks! Brandon Churchill RN * Telephone Encounter - Brandon Churchill RN - 01/22/2024 1:02 PM EDT Images from the original note were not included. documented in this encounterC[facility]04-[facility]-2024 Telephone encounter Note * Telephone Encounter - Brandon Churchill RN - 01/24/2024 12:23 PM EDT Clerical: Please call pt to schedule CT scans. Brandon Churchill RN [facility] Work Phone: [phone] Telephone encounter Note* Telephone Encounter - Usman Goldberg MD - 01/24/2024 12:18 PM EDT It's ok to move up - but I'd want to know closer to delivery (33 weeks - 34 weeks) because then there won't be a need for additional scans later. Labs are to be done prior to CT. [facility]04-25-2024 Telephone encounter Note* Telephone Encounter - Brandon Churchill RN - 01/24/2024 9:33 AM EDT Images from the original note were not included. Ana Peoples MD Abhyankar, Vivek, MD 1 hour ago (8:13 AM) MACK Id, That is fine obstetrically if you are comfortable waiting that long from an Onc point of view. She can have the CT scan anytime as far as I am concerned. MD Wendy Brittonk: Can we go ahead and schedule the CT ahead of 02/19? Brandon Churchill RN [facility]04-25-2024 Telephone encounter Note* Telephone Encounter - Daisy Murray RN - 01/24/2024 9:19 AM EDT Is the lab appointment I ve been scheduled part of the CT I need done? I ll be 34 weeks by the timeI get the blood work on February 19. But it doesn t say CT in there at all. Just curious because if ithas spread then they wanna deliver at 36 weeks and that doesn t seem like enough time. Vy Deshpande: Please advise Daisy Murray RN [facility]04-24-2024 Telephone encounter Note* Telephone Encounter - Usman Goldberg MD - 01/23/2024 4:24 PM EDT We won's be doing scans for 4 weeks.... that works out to be around 33 weeks gestation Does that sound right? (February 19) Thanks, louisa. [facility]04-24-2024 Telephone encounter Note* Telephone Encounter - Brandon Churchill RN - 01/23/2024 3:54 PM EDT Pt calls regarding CT scans. Please place orders. Thanks! Brandon Churchill, BRITNEY [facility]04-23-2024 Telephone encounter Note* Telephone Encounter - Ana Peoples MD - 01/22/2024 3:40 PM EDT 01/22/2024 [facility] Pt called and identified ~ 12:30 pm. [...] known. All questions answered. Ana Peoples MD [facility]04-23-2024 Miscellaneous Notes* Telephone Encounter - Ana Peoples MD - 01/22/2024 3:40 PM EDT 01/22/2024 [facility] Pt called and identified ~ 12:30 pm. [...] answered. Ana Peoples MD documented in this encounterC[facility]04-[facility] Telephone encounter Note * Telephone Encounter - Brandon Churchill RN - 01/22/2024 1:02 PM EDT Images from the original note were not included. [facility]04-[facility]24 NoteHNO ID: [id number] Author: ANA PEOPLES MD Service: ? Author [...] Fransico Sharp MD Pts general OBGYN in [facility] [place]: Eliazar Castaneda MD The plan is for wide local excision with reconstruction, which may take multiple trips to the OR. The OR plan involves radioactive tracer for sentinal node She has not been imaged for staging. She comes to [facility] today for discussion on when to deliver. [...] previa antepartum in second trimester Overview 01/21/2024 [facility] Previa resolved on US today. Placenta > 2cm away from the cervix. Ana Peoples MD Other Visit Diagnoses Malignant melanoma of skin (HCC) I spent 70 minutes in the visit, with more than 50% of the total kuyo-vl-qkmr time of the visit in counseling / coordination of care. I shared my findings and recommendations via the shared medical record or via the mail to the referring provider. Ana Peoples, [facility]04-23-[facility] History of Present illness Narrative* Ana Peoples MD - 01/22/2024 11:12 AM EDT MATERNAL MEDICINE CONSULT SERVICE DATE: January 22, [...] Skin cancer Current Assessment & Plan 01/22/2024 [facility] Pt is a 33 year old 29w4d with a new diagnosis of malignant melanoma located above the left upper lip. Oncologist Usman Goldberg MD Surgeon Fransico Sharp MD Pts general OBGYN in [place], [place]: Eliazar Castaneda MD The plan is for wide local excision with reconstruction, which may take multiple trips to the OR. The OR plan involves radioactive tracer for sentinal node She has not been imaged for staging. She comes to [facility] today for discussion on when to deliver. [...] with more than 50% of the total xqhz-iu-agsg time of the visit in counseling / coordination of care. I shared my findings and recommendations via the shared medical record or via the mail to the referring provider. Ana Peoples MD documented in this encounterCleveland Clinic [facility]04-19-2024 Miscellaneous Notes* Telephone Encounter - Jose L Crowley MA - 01/18/2024 4:44 PM EDT Called pt, verified name and . Informed pt that call was regarding her upcoming appt on 01/20. Pt was not scheduled for an anatomy at time of her consult. Added pt on for 11 am US, pt verbalized agreement. Let pt know our office will call her first thing on Sunday if anything changes. Jose L Crowley MA documented in this encounterCleveland Clinic [facility] Hospital04-11-2024 Miscellaneous Notes* Telephone Encounter - Rolo Parada - 01/10/2024 9:18 AM EDT [employer] msg was sent to patient asking for call back to this coordinator to schedule MFM consultation. documented in this encounterCleveland Clinic [facility]04-10-2024 Miscellaneous Notes* Telephone Encounter - Surjit Griggs RN - 01/09/2024 12:35 PM EDT Reached out to patient. Instructions provided to see a maternal medicine specialist [facility] per Dr. Sharp. This nurse explained that the multidisciplinary team will need frequent communications in arranging the plan of care, and staying in one healthcare system will help facilitate planning. * Telephone Encounter - Fernanda Michael - 01/09/2024 9:52 AM EDT Patient called that she is seeing Maternal Med, in her area and was questioning does she needto see one [facility]? She is asking for a call.. she is very nervous documented in this encounterCleveland Clinic [facility] Hospital04-05-2024 Instructions* Patient Instructions* Valerie Bedoya RN - 01/04/2024 3:21 PM EDT PLAN: - Photos taken and uploaded to chart today via [employer] - Pathology re-read to be obtained - Surgical plan is for resection of left upper lip melanoma, reconstruction with local tissue rearrangement, and a sentinel lymph node biopsy - Surgery at [facility] or [facility]. Likely plan is to wait for surgical intervention until after 36 weeks . - Pre op clearance (PACC) prior to surgery for clearance to receive general anesthesia; must be done at a [facility] location - Nuclear medicine appointment at [facility] the morning of surgery - Post op 7-10 days with Tana Cervantes APRN.CNP - Consult placed to Maternal Medicine (MFM) for risk assessment and guidance: call [phone] to schedule. - Recommend regular dermatology follow-up for FBSE - Q3 months for 2 years, Q6 months for 5 years and Q1 year for the rest of his/her life Our certified surgical first assistant will contact you to set up all surgical appointments: pre op (PACC) prior tosurgery, nuclear medicine the morning of surgery, surgery itself, and a post op visit about 7-10 days after surgery with the team's nurse practitioner, Tana. Follow up prior to surgical date: around 36-37 weeks or after delivery. Please notify us of M's recommendations. Please MyChart message or call the office with questions/concerns. documented in this encounterCleveland Clinic Avon Hospital03-29-2024 NoteHNO ID: [id number] Author: FRANSICO SHARP MD Service: ? Author Type: Physician Type: Progress Notes Filed: 01/06/2024 09:42 Note Text: DATE: January 03, 2024 CC: New Melanoma Patient Referring Physician: Margarita Kim MD at [facility] [place] HPI: Vy Mckeon is a 33 year [...] 400 mg by mouth. omeprazole magnesium (ACID MACHINE ADJUSTER LEADER, OMEPRAZOLE, ORAL) Take by mouth as directed. [...] left upper lip with a variegated pattern, custodial manager in the middle with a number of dark spots. The lesion measures 1 cm in diameter. Photos taken, see [facility] Get Images LABS: Pathology Report [...] taken and uploaded to chart today via [employer] - Pathology re-read to be obtained - Surgical plan is for resection of left upper lip melanoma, reconstruction with local tissue rearrangement, and a sentinel lymph node biopsy - Surgery at [facility] or . Likely plan is to wait for surgical intervention until after 36 weeks . - PACC prior to surgery - Nuclear medicine appointment at [facility] the (more content not included)... [facility]03-29-2024 History of Present illness Narrative* Fransico Sharp MD - 12/28/2023 8:54 AM EDT Images from the original note were not included. DATE: January 03, 2024 CC: New Melanoma Patient Referring Physician: Margarita Kim MD at [facility] in [place] HPI: Vy Mckeon is a 33 year old female who presents for surgical evaluation of melanomaof the left upper cutaneous lip. She is currently 27 weeks ; her estimated delivery date is04/03/2024. She reportedly has had a lesion on [...] 400 mg by mouth. omeprazole magnesium (ACID MACHINE ADJUSTER LEADER, OMEPRAZOLE, ORAL) Take by mouth as directed. [...] left upper lip with a variegated pattern, custodial manager in the middle with a number of [...] for surgery. I also reviewed the risks, b enefits, alternatives, and recovery of surgery. PLAN: - Photos taken and uploaded to chart today via [employer] - Pathology re-read to be obtained - Surgical plan is for resection of left upper lip melanoma, reconstruction with local tissue rearrangement, and a sentinel lymph node biopsy - Surgery at [facility] or . Likely plan is to wait for surgical intervention until after 36 weeks . - PACC prior to surgery - Nuclear medicine appointment at [facility] the morning of surgery - Post op 7-10 days with Tana Cervantes APRN.MANAGER BENCH - Consult placed to [facility] for risk assessment and guidance: call [phone] to schedule. - Recommend regular dermatology follow-up for FBSE - Q3 months for 2 years, Q6 months for 5 years and Q1 year for the rest of his/her life - Patient follows with OBGYN Dr. Castaneda in [place], [place] Follow up after 36 weeks of and with [facility]'s recommendations. The patient is seen and examined by Dr. Sharp and the following reflects his service. Scribed by Valerie Bedoya RN STAFF NOTE: I agree with the Chief Complaint, ROS, and Past Histories independently gathered by the clinical direct support professional and the remaining scribed note accurately describes my personal service to the patient. I personally examined this patient and formulated treatment plan for her. Patient is referred for evaluation and management of a invasive melanoma of the left upper lip cutaneous portion. The patienthas had a large pigmented lesion there for [...] than 1 operation to reconstruct the defect causedby the resection. I also mentioned that due to the deep positive margin and Robert's level 4 she would be a candidate for sentinel lymph node biopsy. Because she is currently I told her we would coordinate this with her high school learning support teacher [facility]. While I believe this jonathan a somewhat low risk tumor I think [...] consultation. Fransico Sharp MD documented in this encounterCleveland Clinic [facility]on Hospital03-27-2024 NoteHNO ID: [id number] Author: USMAN GOLDBERG MD Service: ? Author Type: Physician Type: Progress Notes Filed: 12/27/2023 12:46 Note Text: NAME: Vy Mckeon [facility] NO.: [id number] DATE OF SERVICE: December 26, 2023 (Krystal) [...] 400 mg by mouth. omeprazole magnesium (ACID MACHINE ADJUSTER LEADER, OMEPRAZOLE, ORAL) Take by mouth as directed. PNV no.95/ferrous fum/folic ac ( ORAL) Take by mouth as directed. LABORATORY VALUES: WBC (k/uL) Date Value 12/26/2023 9.72 RBC (m/uL) Date Value 12/26/2023 3.99 Hemoglob (more content not included)...[facility]03-[facility] History of Present illness Narrative* Freddie Delgado, ABHI-MANAGER BENCH - 12/17/2023 1:45 PM EDT Subjective Patient ID: Vy Mckeon is a 33 y.o. female. FRANDY Mcclellan presents to the office for follow up.She was last seen with continued depression and anxietyand had stopped taking Zoloft, hydroxyzine and trazodone because she was found to be . She is 24 weeks along in her with Placenta previa. Last GATE SERVICES SUPERVISOR visit 12/11/23 with . carrier screening result for GJB2- related disorders is negative. Hx of miscarriage but not related to placenta previa. She is having worsening reflux and nausea. Nausea and vomiting at night time but she is able to keep food down during the day. She has been using Tums for the reflux PRN with minimal help. She does not have morning sickness. Lab work from [facility] 12/10 pre- visit RBC-3.72, HGB 11.2, HCT [...] past medical history, past social history, past surgicalhistory, problem list, and medication reconciliation was completed including current medication andpost discharge medication. Review of Systems Constitutional: Positive for fatigue. Negative for chills, diaphoresis, fever and unexpected weightchange. HENT: Negative. Respiratory: Negative for chest tightness [...] normal. Behavior: Behavior normal. Assessment/Plan Follow-up with GATE SERVICES SUPERVISOR for follow-up on hematology result showing minimally [...] for sleep. Note completed with assistance of INTEGRATION PROJECT MANAGER student. GIOVANNI Darling 12/17/23 1538 documented in this encounterMansfield Hospital03-18-2024 Miscellaneous Notes* Medical Student - Valerie Vasquez - 12/17/2023 1:45 PM EDT Disclaimer: This note is intended for educational [...] the legal medical record. documented in this [facility]03-18-2024 Progress note* Medical Student - Valerie Vasquez - 12/17/2023 1:45 PM EDT Disclaimer: This note is intended for educational [...] a part of the legal medical record. [facility]03-08-[facility] History of Present illness Narrative* TAMMY Duran - 12/07/2023 12:16 PM ESTSummary: FOB carrier screening results Called Vy to let her know that FOB's carrier screening result for GJB2- related disorders is negative. The is low risk to be affected with this condition. Vy understood and had no additional questions. I encouraged her to reach out if anything comes up. documented in this encounterMansfield Hospital02-20-2024 History of Present illness Narrative* Fidencio Rojas MD - 11/20/2023 9:30 AM EST Video Visit via Real-time Synchronous Audiovisual Provider Location: [facility] [place] [id number] [facility], [address] [place] [id number] Patient Location: Other Patient Location Suspect Artist Supervisor: None Video Visit Consent Statement: I discussed risks, benefits, and alternatives of a real-time synchronous audiovisual consultation with the patient (and any accompanying persons) including the risks that the patient's personal health details and medical records will be discussed over real-time, synchronous, interactive video/audio/telecommunication technology, the visit will not be recorded withoutthe express consent of both the provider and the patient, and that there are some limitations compared to ncgx-nt-jagw evaluations. We elected to proceed. REASON FOR [...] inhaler, Inhale 2 puffs every 6 (six) hoursas needed for wheezing., Disp: 18 g, Rfl: [...] for nausea or vomiting., Disp: , Rfl: abkbzbbx46-gtjf-kqosk- 29-1-400 mg combo pack,tablet & capDR, Take by mouth., Disp: , Rfl: sertraline (ZOLOFT) 25 mg tablet, Take 1 tablet (25 mg total) by mouth in the morning. (Patient nottaking: Reported on 09/10/2023), Disp: 30 tablet, Rfl: [...] patient is in complete care of her foiling machine operator. Patient does have ultrasound and office visit scheduled with us. Thank you for allowing me to participate in the care of Vy Mckeon. If there any questions please do not hesitate to contact us. Fidencio Rojas MD Maternal- Medicine [facility] [address] [place] [address] [facility], the CDC, and other organizations representing maternal and public health professionals recommend that , , and lactating people and those considering receive the COVID-19 vaccination. Vaccination is the best method to reduce maternal and complications of SARS-CoV-2 infection. This document was created with [employer] technology. Though I make every effort to review the dictation as it is transcribed, on occasion the spoken word can be misinterpreted by the technology leading to inappropriate words, phrases, or sentences. This note is addressed to the requesting provider as a consultation for clinical guidance. Specificmedical abbreviations are occasionally used and those are generally approved by the [place]?Board of?Obstetrics and?Gynecology?as well as?Justyna rea abbreviations. The above plan of care was based solely on the diagnoses for which a consultation was requested. ?More frequent testing may be indicated based on her other medical/obstetrical conditions. The management of other or medical conditions is beyond the scope of requested consultation and will c ontinue to be followed by the primary foiling machine operator or primary care provider. Note to patient: The Century Cures Act makes medical notes like these available to patients inthe interest of transparency. However, be advised this is a medical document. It is intended as peer to peer communication. It is written in medical language and may contain abbreviations or verbiagethat are unfamiliar. It may appear blunt or direct. Medical documents are intended to carry relevant information, facts as evident, and the clinical opinion of the practitioner. documented in this encounterAdena Health SystemVOSS [id number] History of Present illness Narrative* SHANT España - 11/12/2023 1:00 PM EST Reason for Appointment: Patient ID: Vy Mckeon is a 33 y.o. female who presents for Routine Visit Patient presents today for Return OB appointment. Current Medications: has a current medication list which includes the following prescription(s): valacyclovir. Medical History: Active Ambulatory Problems Diagnosis Date Noted Attention deficit hyperactivity disorder (CMS/HCC) 02/13/2023 Bipolar disorder, most recent episode depressed ([facility]) 02/13/2023 Depression ([facility] 02/13/2023 Generalized anxiety disorder ([facility]) 02/13/2023 Insomnia 02/13/2023 Mild episode of recurrent major depressive disorder (HCC) ([facility]) 02/13/2023 Mild intermittent asthma without complication ([facility]) 02/13/2023 Asthma exacerbation, mild ([facility]) 02/13/2023 Mild persistent asthma with (acute) exacerbation ([facility]) 02/19/2023 Second trimester 10/08/2023 AMA (advanced maternal age) primigravida 35+, unspecified trimester 10/08/2023 Resolved Ambulatory Problems Diagnosis Date Noted No Resolved Ambulatory Problems Past Medical History: Diagnosis Date ADHD (attention deficit hyperactivity disorder) ([facility]) Allergies Anxiety Asthma ([facility]) Bipolar disorder ([facility]) Family History Problem Relation Name Age of [...] obtained without difficulty and patient was given [facility] order to have obtained. Follow Up: Patient is to return to our office in 4 weeks for routine OB appointment Documented by Dana Farris LPN on behalf of: SHANT España documented in this encounterSoutheast Missouri [id number] History of Present illness Narrative* TAMMY Duran - 11/12/2023 10:22 AM ESTSummary: MOB carrier screening results Called and discussed carrier screening results with Vy. 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 We discussed the natural history and etiology of the condition. Iracommend FOB carrier screening if he's available. She understood and had no additional questions. She will reach out to FO to get the necessary info needed for me to order his carrier screening (full name, , phone number, email, health insurance info). She requests the kit be sent to her homeaddress. I will be on the lookout for an email from her with his information. I encouraged the patient to call back with any additional questions or concerns. documented in this encounterMansfield Hospital01-29-2024 History of Present illness Narrative* TAMMY Duran - 10/29/2023 2:16 PM ESTSummary: Carrier screened update request Vy called wanting to change her carrier screening order from Horizon-4 to the most expanded carrier screening available. I was able to get this switched. Order is now updated to Horizon-421. I told the patient I would call her with results once received. They are estimated to be completed between 11/10-11/17. documented in this encounterAdena Health SystemVOSS [id number] History of Present illness Narrative* TAMMY Duran - 10/22/2023 11:00 AM ESTSummary: [facility] Genetic Counseling Note Provider at different site/location than patient. I confirmed the patient is located in the [facility]. Vy Mckeon is currently at home and provider at remote site. The patient consented to be treated electronically via this form of telemedicine. This visit was not related to an office visit or procedure in the past 7 days, and in-office follow up is not recommended in the next 24 hours. Video Visit via Real-time Synchronous Audiovisual Provider Location: [facility] [address] [address] Patient Location: Patient's home Patient Location Suspect Artist Supervisor: None Video Visit Consent Statement: I discussed risks, benefits, and alternatives of a real-time synchronous audiovisual consultation with the patient (and any accompanying persons) including the risks that the patient's personal health details and medical records will be discussed over real-time, synchronous, interactive video/audio/telecommunication technology, the visit will not be recorded withoutthe express consent of both the provider and the patient, and that there are some limitations compared to afbj-ao-zwva evaluations. We elected to proceed. Name: Vy Mckeon : 1990 Date of Visit: 10/22/2023 Email: [email or web address] [email or web address] contact method: email Partner's Name: Bogdan Age: 32 Requesting Physician: Eliazar Castaneda DO [address], [place] [address] Reason for Referral: Vy Yu Mckeon is a 33 y.o. female who presented to [facility] Telemedicine Clinic. Vy is here at the [...] Screen: YES - low risk Performing lab: [facility] ([facility] Screen) Conditions screened: Trisomy 13, Trisomy [...] or anomalies can also increase the risk ofan underlying chromosome anomaly or genetic syndrome. Based on her maternal age, Ms. Mckeon, the patient's midtrimester risk for Down syndrome is 1 in 272,Trisomy 18 is 1 in 1060, Trisomy 13 is 1 in 4000, and any chromosomal abnormality at term is 1 in 178 (from Perinatology calculator). As women age, so do their eggs, making pregnancies more prone to errors in cell division as women get older. The most common, viable aneuploidies include Down Syndrome (Trisomy 21), Trisomy 18,Trisomy 13 and differences in the sex chromosomes. [...] aneuploidies have milder symptoms if they survive pregnancysuch as mild developmental and learning disabilities, behavioral [...] the medical records and evaluation by medical aides teacher of the affected individual would be recommended. [...] condition. Carriers are typically asymptomatic and family historyis not a good indicator of carrier status. [...] inserted into the maternal abdomen and amniotic fluid(the fluid surrounding the fetus), which includes DNA is collected and used for genetic testing. Amniocentesis can also measure the amount of AFP and other substances specific to open neural tube defects in the amniotic fluid.The risk of miscarriage, delivery, and infection is about 1in 500 to 1 in 1500. We reviewed the options of rapid FISH analysis (for chromosomes 13, 18, 21, X and Y), karyotype, and SNP (single nucleotide polymorphism) chromosomal microarray analysis. SNP microarray is ahigh resolution test that can detect aneuploidy, triploidy, [...] Rarely because of maternal cell contamination of theculture, cultured cells may not reflect the true status of the fetus. When a known variant or variants for a single gene disorder are identified in the family or there is high suspicion for a single gene disorder, diagnostic testing for those variants on the gene levelare possible diagnostic testing. Plan of Care: 1. Verbal consent for carrier screening for Horizon-4. Patient's address was confirmed and a salivakit will be sent to the patient's home address. 2. Amniocentesis discussed and declined. 3. Continue to monitor the via ultrasound. Anatomy scan to be completed 18-22 weeks gestation. 4. Recommended AFP to be drawn at 15-22 weeks gestation. 5. Patient diagnosis: advanced maternal age I personally spent 25 minutes in lfbq-ab-mazh time with this patient. I provided genetic counselingservices, including obtaining a structured family history, analysis [...] call or email their genetic counselor at [phone] or [email or web address] if any additional questions or concerns should arise. TAMMY Soto Licensed, Certified Genetic Counselor documented in this encounterMansfield Hospital08-29-2023 Evaluation note* Encounter Date Diagnosis Assessment Notes Treatment Notes Treatment Clinical Notes May, Thrush (ICD-10 - B37.0) Continue home medications as prescribed. Use the nystatin mouthwash as prescribed, swish and swallow. Follow-up with your family physician if no improvement in 2 to 3 days [employer] Other 06-19-[address] [facility]05-15-2023 Evaluation note* Encounter Date Diagnosis Assessment [...] educated on the importance of PPI optimization [employer] Other 05-10-2023 Evaluation note* Encounter Date Diagnosis [...] January, Other Contusion mater ial was printed [employer] Other 08-23-2022 NoteOPERATIVE NOTE OPERATION DATE: 05/23/2022 PROCEDURE: Suction D AND C. PREOPERATIVE DIAGNOSIS: Missed . POSTOPERATIVE DIAGNOSIS: Missed . ANESTHESIA: General. SURGEON: Eliazar Castaneda D.O. WINDOW DRESSER: None. FINDING: Products of conception. SPECIMEN: Products [...] products of conception were removed using an 8-Romansh suction curette. Excellent hemostasis was noted. The patient tolerated the procedure well. Sponge, lap, and needle counts were correct x 2. All instruments were then removed from the patient's vagina. The patient was taken to the Recovery Room in stable condition. [facility] Includes: Assessments for all patient encounters Findings Encounter Date Depressive disorder [facility] with Emilee Short [facility] 03/29/2020 Generalized anxiety disorder [facility] with [facility] 03/29/2020 Dysthymic disorder Established Patie nt with Bobbi Colon [facility] 10/14/2019 Generalized anxiety disorder Establis hed Patient with Bobbi Colon [facility] 10/14/2019 Z68.24 - Body mass index (BM I) 24.0-24.9 adult Medical Established Patient with Candace Grossman [facility] 10/14/2019 F34.1 - Dysthymic disorder Establishe d Patient with Bobbi Colon [facility] 09/04/2019 Generalized anxiety disorder Establis hed Patient with Bobbi Colon [facility] 09/04/2019 Body mass index Medical Established Patient with Candace Grossman [facility] 09/04/2019 Diabetes Risk Test Score was 0 score 09/04/2019 Medical Established Patient with Candace Grossman [facility] 09/04/2019 Body mass index Nurse Visit with Candace Grossman [facility] P 08/19/2019 Diabetes Risk Test Score was 0 score 08/19/2019 Nurse Visit with Candace Grossman [facility] 08/19/2019 Generalized anxiety disorder BH Establis hed Patient with Bobbi Colon [facility] 07/28/2019 Severe recurrent major depre 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 features BH Established Patient with Bobbi Colon [facility] 07/28/2019 AUDIT alcohol use disorders identification test was six 07/28/2019 Medical New Patient with Candace Grossman [facility] 07/28/2019 Diabetes Risk Test Score was 0 score 07/28/2019 Medical New Patient with Candace Grossman [facility] 07/28/2019 ZAN-7 score was 21 07/28/2019 Medical Ne w Patient with Candace Grossman [facility] 07/28/2019 PHQ-9: total score was 21 07/28/2019 Med ical New Patient with Candace Grossman [facility] 07/28/2019 Z68.22 - Body mass index (BM I) 22.0-22.9 adult Medical New Patient with Candace Grossman [facility] 07/28/2019 [facility] Work Phone: Evaluation noteNo assessment information available [facility] Work Phone: Evaluation note* Diagnosis Onset Date Resolution Status GERD (gastroesophageal reflux disease) acute [facility] Work Phone: Evaluation note* [...] multigravida, second trimester [facility] Diagnosis Placenta previa antepartum in second trimester- Primary Multigravida of advanced maternal age in second trimester [facility] Diagnosis Nausea and vomiting, unspecified vomiting type- Primary Psychophysiological insomnia Persistent disorder of initiating or maintaining sleep [facility] Diagnosis Malignant melanoma of skin (HCC)- Primary Melanoma of skin, site unspecified [facility] Diagnosis Encounter for anatomic survey Encounter for anatomic survey- Primary [facility] Diagnosis Encounter for anatomic survey documented [facility]* Diagnosis Malignant melanoma of skin (HCC) Melanoma of skin, site unspecified Skin cancer Unspecified malignant neoplasm of skin, site unspecified Placenta previa antepartum in second trimester * Assessment & Plan Note - Ana Peoples MD - 01/21/2024 1:34 PM EDT Associated Problem(s): Skin cancer 01/22/2024 [facility] Pt is a 33 year old 29w4d with a new diagnosis of malignant melanoma located above the left upper lip. Oncologist Usman Goldberg MD Surgeon Fransico Sharp MD Pts general OBGYN in [place], [place]: Eliazar Castaneda MD The plan is for wide local excision with reconstruction, which may take multiple trips to the OR. The OR plan involves radioactive tracer for sentinal node She has not been imaged for staging. She comes to [facility] today for discussion on when to deliver. [...] pt can deliver [facility] to [facility] if she goesat term and the CT does not show any spread.. We would need to find a way to get the placenta to [facility] for examination. I have left a message with Dr. Castaneda's office to call me back so that we can confirm ability to get placenta to [facility] for pathology should she deliver at [place]. Ana Peoples MD [facility] Diagnosis Malignant melanoma of skin (HCC)- Primary Melanoma of skin, site unspecified Malignant melanoma of skin (HCC) Melanoma of skin, site unspecified documented in this encounter [facility] general Narrative - Reported* Type Description Date Medical History anxiety Medical History depression Medical History ADHD Surgical History D&C [employer] Other History general Narrative - Reported* Type Description Date Medical History anxiety Medical History depression Medical History ADHD Surgical History D&C 2021 [employer] Other History of Present illness Narrative History of Present Illness not supported for this document type No History of Present Illness [facility] Work Phone: Hospital Discharge instructions Additional [...] if you have any problems. -Office number [phone] Work Phone: Instructions Instructions not supported for this document type No Instructions [facility] Work Phone: InstructionsNot on filedocumented in this encounter [facility] filedocumented in this encounter [facility]ructionsNot on filedocumented in this encounter [facility] outcome Narrative Includes: Evaluations & Outcomes for active Goals No Outcomes [facility] Work Phone: reason for referral (narrative)No Reason for Referral [facility] Work Phone: reason for referral (narrative)* Diagnostic Procedure Only (Routine) - Closed Specialty Diagnoses / Procedures Referred By Contac t Referred To Contact [facility] Diagnoses Encounter for anatomic survey Procedures OBSTETRIC ULTRASOUND WHI US PREG UTERUS AFTER 1ST [place] [address] [place] [address] [id number] [place] [address] Referral ID Status Reason Start Date Expiration Date V isits Requested Visits Authorized [id number] Closed Auto-Generate d Referral 01/21/2024 01/20/2025 1 1 [facility] NarrativeUNCONTROLLED GERD//REFERRAL FROM [employer] Other Reason for visit Narrative* Consultation (Routine) - Pending Review Specialty Diagnoses / Procedures Referred By Contac t Referred To Contact Maternal and Medicine Diagnoses Multigravida of advanced maternal age in second trimester Eliazar Castaneda R, DO [address] , [place] [address] [facility] Maternal Med [address] [facility] [place] [address] Referral ID Status Reason Start Date Expiration Date Visits Requested Visits Authorized [id number] Pending Review Specialty Services Required 10/10/2023 10/09/2024 1 1 [facility]* Diagnostic Procedure Only (Routine) - Closed Specialty Diagnoses / Procedures Referred By Contac t Referred To Contact [facility] Diagnoses Encounter for anatomic survey Procedures OBSTETRIC ULTRASOUND WHI US PREG UTERUS AFTER 1ST [place] [address] [place] [address] [facility] [address] [place] [address] Referral ID Status Reason Start Date Expiration Date V isits Requested Visits Authorized [id number] Closed Auto-Generate d Referral 01/21/2024 01/20/2025 1 1 [facility] systems Narrative - Reported Review of Systems not supported for this document type No Review of Systems [facility] Work Phone: Summary Purpose Family History No Family History Records Found Description Last Updated Paternal history of cardiovascular disor thuy 07/28/2019 Relationship Condition Age at Onset Recorded Date/T pia Not Specified Anxiety Unknown Chronic obstructive pulmonary disease Unk nown Advance Directives No Advanced Directives Records FoundDocuments on File Type Date Recorded Patient Integration Project Manager Expl anation Advance Directives and Living Will Power of Health Aide Advance Directive Response Recorded Date/ Time Advance Directives No February 07 3:12pm Reason for Referral Specialty Diagnoses / Procedures Referred By Contac t Referred To Contact Maternal and Medicine Diagnoses Placenta previa antepartum in second trimester Multigravida of advanced maternal age in second trimester Procedures [facility] with or without consult Fidencio Rojas MD [address] [facility] 1st [place] [address] [facility] Maternal Med [address] [place] [address] Referral ID Status Reason Start Date Expiration Date V isits Requested Visits Authorized [id number] Pending Review 11/20/2023 11/19/2024 1 1 Specialty Diagnoses / Procedures Referred By Contac t Referred To Contact Diagnoses Malignant melanoma of skin (HCC) Procedures REFER TO PACC - PRE ANESTHESIA CONSULTATION CLINIC OFFICE/OUTPATIENT [facility] 60 MINUTES Fransico Sharp MD [address] [place] [address] Referral ID Status Reason Start Date Expiration Date Visits Requested Visits Authorized [id number] Authorized PCP Requested Referral 01/04/2024 01/03/2025 1 1 Specialty Diagnoses / Procedures Referred By Contac t Referred To Contact Diagnoses Malignant melanoma of skin (HCC) Procedures CONSULT TO MATERNAL MEDI OFFICE/OUTPATIENT [facility] 60 MINUTES Fransico Sharp MD [address] [place] [address] Referral ID Status Reason Start Date Expiration Date Visits Requested Visits Authorized [id number] Authorized PCP Requested Referral Auto-Generate d Referral 01/04/2024 01/03/2025 1 1 Specialty Diagnoses / Procedures Referred By Contac t Referred To Contact CT IMAG[facility] Diagnoses Malignant melanoma of skin (HCC) Procedures CT CHEST W IVCON DIAGNOSTIC COMPUTED TOMOGRAPHY THORAX W/CONTRAST Usman Goldberg MD [address] [place] [address] [place] [address] [place] [address] Referral ID Status Reason Start Date Expiration Date Visits Requested Visits Authorized [id number] Authorized Auto-Generat ed Referral 02/20/2024 02/21/2025 1 1 Specialty Diagnoses / Procedures Referred By Contac t Referred To Contact CT IMAGING Diagnoses Malignant melanoma of skin (HCC) Procedures CT NECK SOFT TISSUE W IVCON CT SOFT TISSUE NECK W/CONTRAST MATERIAL Usman Goldberg MD [address] [place] [address] [place] [address] [place] [address] Referral ID Status Reason Start Date Expiration Date Visits Requested Visits Authorized [id number] Authorized Auto-Generat ed Referral 02/20/2024 02/21/2025 1 1 Assessments Findings Encounter Date Generalized anxiety disorder Establis hed Patient with Bobbi Colon [facility] 07/28/2019 Severe recurrent major depre 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 features Established Patient with Bobbi Colon [facility] 07/28/2019 AUDIT alcohol use disorders identification test was six 07/28/2019 Medical New Patient with Candace Grossman [facility] 07/28/2019 Diabetes Risk Test Score was 0 score 07/28/2019 Medical New Patient with Candace Grossman [facility] 07/28/2019 ZAN-7 score was 21 07/28/2019 Medical Ne w Patient with Candace Grossman [facility] 07/28/2019 PHQ-9: total score was 21 07/28/2019 Med ical New Patient with Candace Grossman [facility] 07/28/2019 Z68.22 - Body mass index (BM I) 22.0-22.9 adult Medical New Patient with Candace Grossman [facility] 07/28/2019 Findings Encounter Date F34.1 - Dysthymic disorder BH Establishe d Patient with Bobbileif Colon [facility] 09/04/2019 Generalized anxiety disorder BH Establis hed Patient with Bobbileif Colon [facility] 09/04/2019 Body mass index Medical Established Patient with Candace Houstonen [facility] 09/04/2019 Diabetes Risk Test Score was 0 score 09/04/2019 Medical Established Patient with Candacehalley Houstonen [facility] 09/04/2019 Body mass index Nurse Visit with Candace Grossman P 08/19/2019 Diabetes Risk Test Score was 0 score 08/19/2019 Nurse Visit with Candace Dianelys [facility] 08/19/2019 Generalized anxiety disorder BH Establis hed Patient with Bobbileif Colon [facility] 07/28/2019 Severe recurrent major depre 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 features BH Established Patient with Bobbileif Colon [facility] 07/28/2019 AUDIT alcohol use disorders identification test was six 07/28/2019 Medical New Patient with Candace Grossman [facility] 07/28/2019 Diabetes Risk Test Score was 0 score 07/28/2019 Medical New Patient with Candace Houstonen [facility] 07/28/2019 ZAN-7 score was 21 07/28/2019 Medical Ne w Patient with Candace Grossman [facility] 07/28/2019 PHQ-9: total score was 21 07/28/2019 Med ical New Patient with Candace Grossman [facility] 07/28/2019 Z68.22 - Body mass index (BM I) 22.0-22.9 adult Medical New Patient with Candace Grossman [facility] 07/28/2019 Findings Encounter Date Dysthymic disorder BH Established Patie nt with Bobbi Colon [facility] 10/14/2019 Generalized anxiety disorder BH Establis hed Patient with Bobbi Colon [facility] 10/14/2019 Z68.24 - Body mass index (BM I) 24.0-24.9 adult Medical Established Patient with Candace Grossman [facility] 10/14/2019 F34.1 - Dysthymic disorder BH Establishe d Patient with Bobbi Colon [facility] 09/04/2019 Generalized anxiety disorder BH Establis hed Patient with Bobbileif Colon [facility] 09/04/2019 Body mass index Medical Established Patient with Candace Dianelys [facility] 09/04/2019 Diabetes Risk Test Score was 0 score 09/04/2019 Medical Established Patient with Candace Dianelys [facility] 09/04/2019 Body mass index Nurse Visit with Candace Grossman P 08/19/2019 Diabetes Risk Test Score was 0 score 08/19/2019 Nurse Visit with Candace Grossman [facility] 08/19/2019 Generalized anxiety disorder BH Establis hed Patient with Bobbi Colon [facility] 07/28/2019 Severe recurrent major depre 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 features BH Established Patient with Bobbi Colon [facility] 07/28/2019 AUDIT alcohol use disorders identification test was six 07/28/2019 Medical New Patient with Candace Grossman [facility] 07/28/2019 Diabetes Risk Test Score was 0 score 07/28/2019 Medical New Patient with Candace Dianelys [facility] 07/28/2019 ZAN-7 score was 21 07/28/2019 Medical Ne w Patient with Candace Dianelys [facility] 07/28/2019 PHQ-9: total score was 21 07/28/2019 Med ical New Patient with Candace Dianelys [facility] 07/28/2019 Z68.22 - Body mass index (BM I) 22.0-22.9 adult Medical New Patient with Candace Grossman [facility] 07/28/2019 Findings Encounter Date Visit for: contraceptive management [facility] with Linnea Luz [facility] 04/08/2020 Z68.24 - Body mass index (BM I) 24.0-24.9, adult Women's Health with Linnea Luz [facility] 04/08/2020 Depressive disorder Telebehavioral [facility]th with Emilee Short [facility] 03/29/2020 Generalized anxiety disorder [facility] 03/29/2020 Dysthymic disorder Established Patie nt with Bobbi Colon [facility] 10/14/2019 Generalized anxiety disorder Establis hed Patient with Bobbi Colon [facility] 10/14/2019 Z68.24 - Body mass index (BM I) 24.0-24.9 adult Medical Established Patient with Candacehalley Grossman [facility] 10/14/2019 F34.1 - Dysthymic disorder BH Establishe d Patient with Bobbi Colon [facility] 09/04/2019 Generalized anxiety disorder BH Establis hed Patient with Bobbi Colon [facility] 09/04/2019 Body mass index Medical Established Patient with Candacehalley Grossman [facility] 09/04/2019 Diabetes Risk Test Score was 0 score 09/04/2019 Medical Established Patient with Candacehalley Grossman [facility] 09/04/2019 Body mass index Nurse Visit with Candace ECHEAVRRIA P 08/19/2019 Diabetes Risk Test Score was 0 score 08/19/2019 Nurse Visit with Candace Grossman [facility] 08/19/2019 Generalized anxiety disorder BH Establis hed Patient with Bobbi Colon [facility] 07/28/2019 Severe recurrent major depre 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 features Established Patient with Bobbi Colon [facility] 07/28/2019 AUDIT alcohol use disorders identification test was six 07/28/2019 Medical New Patient with Candace Grossman [facility] 07/28/2019 Diabetes Risk Test Score was 0 score 07/28/2019 Medical New Patient with Candace Grossman [facility] 07/28/2019 ZAN-7 score was 21 07/28/2019 Medical Ne w Patient with Candace Grossman [facility] 07/28/2019 PHQ-9: total score was 21 07/28/2019 Med ical New Patient with Candace Grossman [facility] 07/28/2019 Z68.22 - Body mass index (BM I) 22.0-22.9 adult Medical New Patient with Candace Grossman [facility] 07/28/2019 Findings Encounter Date Body mass index Nurse Visit with Candace Dianelys P 08/19/2019 Diabetes Risk Test Score was 0 score 08/19/2019 Nurse Visit with Candace Dianelys [facility] 08/19/2019 Generalized anxiety disorder BH Establis hed Patient with Bobbi Colon [facility] 07/28/2019 Severe recurrent major depre 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 features Established Patient with Bobbi Colon [facility] 07/28/2019 AUDIT alcohol use disorders identification test was six 07/28/2019 Medical New Patient with aCndace Grossman [facility] 07/28/2019 Diabetes Risk Test Score was 0 score 07/28/2019 Medical New Patient with Candace Grossman [facility] 07/28/2019 ZAN-7 score was 21 07/28/2019 Medical Ne w Patient with Candace Grossman [facility] 07/28/2019 PHQ-9: total score was 21 07/28/2019 Med ical New Patient with Candace Grossman [facility] 07/28/2019 Z68.22 - Body mass index (BM I) 22.0-22.9 adult Medical New Patient with Candace Grossman [facility] 07/28/2019 Findings Encounter Date Overweight Women's Health with Candace Dianelys [facility] 05/03/2020 Z68.24 - Body mass index (BM I) 24.0-24.9, adult Women's Health with Candace Dianelys [facility] 05/03/2020 Visit for: contraceptive management [facility]al [facility] with Linnea Escobar [facility] 04/08/2020 Z68.24 - Body mass index (BM I) 24.0-24.9, adult Women's Health with Linnea Escobar [facility] 04/08/2020 Depressive disorder Telebehavioral He alth with Emilee Short [facility] 03/29/2020 [facility] 03/29/2020 Dysthymic disorder Established Patie nt with Bobbi Colon [facility] 10/14/2019 Generalized anxiety disorder Establis hed Patient with Bobbi Colon [facility] 10/14/2019 Z68.24 - Body mass index (BM I) 24.0-24.9 adult Medical Established Patient with Candacehalley Grossman [facility] 10/14/2019 F34.1 - Dysthymic disorder Establishe d Patient with Bobbi Colon [facility] 09/04/2019 Generalized anxiety disorder Establis hed Patient with Bobbi Colon [facility] 09/04/2019 Body mass index Medical Established Patient with Candace Dianelys [facility] 09/04/2019 Diabetes Risk Test Score was 0 score 09/04/2019 Medical Established Patient with Candace Dianelys [facility] 09/04/2019 Body mass index Nurse Visit with Candace Grossman P 08/19/2019 Diabetes Risk Test Score was 0 score 08/19/2019 Nurse Visit with Candacehalley Grossman [facility] 08/19/2019 Generalized anxiety disorder Establis hed Patient with Bobbi Colon [facility] 07/28/2019 Severe recurrent major depre 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 features Established Patient with Bobbi Colon [facility] 07/28/2019 AUDIT alcohol use disorders identification test was six 07/28/2019 Medical New Patient with Candace Dianelys [facility] 07/28/2019 Diabetes Risk Test Score was 0 score 07/28/2019 Medical New Patient with Candace Dianelys [facility] 07/28/2019 ZAN-7 score was 21 07/28/2019 Medical Ne w Patient with Candace Dianelys [facility] 07/28/2019 PHQ-9: total score was 21 07/28/2019 Med ical New Patient with Candace Dianelys [facility] 07/28/2019 Z68.22 - Body mass index (BM I) 22.0-22.9 adult Medical New Patient with Candace Dianelys [facility] 07/28/2019 Instructions Instructions not supported for this [...] section and content) DATE CREATED AUTHOR 03/26/2018 [place] [facility] DATE CREATED AUTHOR AUTHOR'S ORGANIZ ATION 05/07/2020 [facility] DATE CREATED AUTHOR AUTHOR'S ORGANIZ ATION 02/10/2023 [facility] DATE CREATED AUTHOR AUTHOR'S ORGANIZ ATION 03/28/2023 [facility] DATE CREATED AUTHOR AUTHOR'S ORGANIZ ATION 12/18/2023 [facility] DATE CREATED AUTHOR AUTHOR'S ORGANIZ ATION 01/14/2024 [facility] DATE CREATED AUTHOR AUTHOR'S ORGANIZ ATION 01/27/2024 [facility] DATE CREATED AUTHOR AUTHOR'S ORGANIZ ATION 02/14/2024 [facility] DATE CREATED AUTHOR AUTHOR'S ORGANIZ ATION 03/06/2024 [facility] DATE CREATED AUTHOR AUTHOR'S ORGANIZ ATION 03/06/2024 [facility] EPIC Evaluations & Outcomes [...] (HCC) Procedures CONSULT TO MATERNAL MEDI OFFICE/OUTPATIENT [facility] 60 MINUTES Fransico Sharp MD [address] [place] [address] Referral ID Status Reason Start Date Expiration Date V isits Requested Visits Authorized [id number] Closed PCP Requested Referral Auto-Generated Referral 01/04/2024 01/03/2025 1 1 Reason Comments Scans Reason Comments Results - Ct Patient Update Reason Comments Surgery Cancelled Appointment Reason Comments Results Reason Comments melanoma in Care Teams (unrecognized sec tion and content) Team Status: Inactive Member Role Status Dates ESTELITA SpannC Attending Provider Active Team Status: Active Member Role Status Dates NON STAFF Primary Care Provider Active Team Status: Inactive Member Role Status Dates Karan Romero MD Attending Provider Active NON STAFF Primary Care Provider Active Core Maker Relationship Specialty Start Date End Date Freddie Delgado APRN-CNP PCP - General Nurse Practitioner 07/30/23 Core Maker Relationship Specialty Start Date End Date Freddie Delgado APRN-CNP PCP - General Nurse Practitioner 07/30/23 Core Maker Relationship Specialty Start Date End Date Freddie Delgado APRN-CNP PCP - General Nurse Practitioner 07/30/23 Core Maker Relationship Specialty Start Date End Date Freddie Delgado APRN-CNP PCP - General Nurse Practitioner 07/30/23 Core Maker Relationship Specialty Start Date End Date Freddie Delgado APRN-CNP PCP - General Nurse Practitioner 07/30/23 Core Maker Relationship Specialty Start Date End Date Freddie Delgado APRSuzetteMANAGER BENCH PCP - General Nurse Practitioner 07/30/23 Core Maker Relationship Specialty Start Date End Date Freddie Delgado [facility] PCP - General Nurse Practitioner 07/30/23 Core Maker Relationship Specialty Start Date End Date Freddie Delgado [address] [place] [address] PCP - General Family Medicine 12/19/23 Core Maker Relationship Specialty Start Date End Date Freddie Delgado [address] [place] [address] PCP - General Family Medicine 12/19/23 Core Maker Relationship Specialty Start Date End Date Freddie Delgado [address] [place] [address] PCP - General Family Medicine 12/19/23 Core Maker Relationship Specialty Start Date End Date Freddie Delgado [address] [place] [address] PCP - General Family Medicine 12/19/23 Core Maker Relationship Specialty Start Date End Date Freddie Delgado [address] [place] [address] PCP - General Family Medicine 12/19/23 Core Maker Relationship Specialty Start Date End Date Freddie Delgado [address] [place] [address] PCP - General Family Medicine 12/19/23 Core Maker Relationship Specialty Start Date End Date Freddie Delgado [address] [place] [address] PCP - General Family Medicine 12/19/23 Core Maker Relationship Specialty Start Date End Date Freddie Delgado [address] [place] [address] PCP - General Family Medicine 12/19/23 Core Maker Relationship Specialty Start Date End Date Freddie Delgado [address] [place] [address] PCP - General Family Medicine 12/19/23 Core Maker Relationship Specialty Start Date End Date Freddie Delgado [address] [place] [address] PCP - General Family Medicine 12/19/23 Core Maker Relationship Specialty Start Date End Date Freddie Delgado [address] [place] [address] PCP - General Family Medicine 12/19/23 Core Maker Relationship Specialty Start Date End Date Freddie Delgado [address] [place] [address] PCP - General Family Medicine 12/19/23 Core Maker Relationship Specialty Start Date End Date Freddie Delgado PRADEEP Jones [address] [place] [address] PCP - General Family Medicine 12/19/23 Core Maker Relationship Specialty Start Date End Date Freddie Delgado CNP [address] [place] [address] PCP - General Family Medicine 12/19/23 Core Maker Relationship Specialty Start Date End Date Freddie Delgado CNP [address] [place] [address] PCP - General Family Medicine 12/19/23 Core Maker Relationship Specialty Start Date End Date Freddie Delgado CNP [address] [place] [address] PCP - General Family Medicine 12/19/23 Goals [...] or prosecute any alcohol or drug abuse patient.[facility] HospitalIn the event this information is protected by the Federal Confidentiality of Alcohol and Drug Abuse Patient Records regulations: The Federal rules restrict any use of the information to criminally investigate or prosecute any alcohol or drug abuse patient.[facility] HospitalIn the event this information is protected by the Federal Confidentiality of Alcohol and Drug Abuse Patient Records regulations: The Federal rules restrict any use of the information to criminally investigate or prosecute any alcohol or drug abuse patient.[facility] HospitalIn the event this information is protected by the Federal Confidentiality of Alcohol and Drug Abuse Patient Records regulations: The Federal rules restrict any use of the information to criminally investigate or prosecute any alcohol or drug abuse patient.[facility] HospitalIn the event this information is protected by the Federal Confidentiality of Alcohol and Drug Abuse Patient Records regulations: The Federal rules restrict any use of the information to criminally investigate or prosecute any alcohol or drug abuse patient.[facility] HospitalIn the event this information is protected by the Federal Confidentiality of Alcohol and Drug Abuse Patient Records regulations: The Federal rules restrict any use of the information to criminally investigate or prosecute any alcohol or drug abuse patient.[facility] HospitalIn the event this information is protected by the Federal Confidentiality of Alcohol and Drug Abuse Patient Records regulations: The Federal rules restrict any use of the information to criminally investigate or prosecute any alcohol or drug abuse patient.[facility] HospitalIn the event this information is protected by the Federal Confidentiality of Alcohol and Drug Abuse Patient Records regulations: The Federal rules restrict any use of the information to criminally investigate or prosecute any alcohol or drug abuse patient.[facility] HospitalIn the event this information is protected by the Federal Confidentiality of Alcohol and Drug Abuse Patient Records regulations: The Federal rules restrict any use of the information to criminally investigate or prosecute any alcohol or drug abuse patient.[facility] HospitalIn the event this information is protected by the Federal Confidentiality of Alcohol and Drug Abuse Patient Records regulations: The Federal rules restrict any use of the information to criminally investigate or prosecute any alcohol or drug abuse patient.[facility] HospitalIn the event this information is protected by the Federal Confidentiality of Alcohol and Drug Abuse Patient Records regulations: The Federal rules restrict any use of the information to criminally investigate or prosecute any alcohol or drug abuse patient.[facility] HospitalIn the event this information is protected by the Federal Confidentiality of Alcohol and Drug Abuse Patient Records regulations: The Federal rules restrict any use of the information to criminally investigate or prosecute any alcohol or drug abuse patient.[facility] HospitalIn the event this information is protected by the Federal Confidentiality of Alcohol and Drug Abuse Patient Records regulations: The Federal rules restrict any use of the information to criminally investigate or prosecute any alcohol or drug abuse patient.[facility] HospitalIn the event this information is protected by the Federal Confidentiality of Alcohol and Drug Abuse Patient Records regulations: The Federal rules restrict any use of the information to criminally investigate or prosecute any alcohol or drug abuse patient.[facility] HospitalIn the event this information is protected by the Federal Confidentiality of Alcohol and Drug Abuse Patient Records regulations: The Federal rules restrict any use of the information to criminally investigate or prosecute any alcohol or drug abuse patient.[facility] HospitalIn the event this information is protected by the Federal Confidentiality of Alcohol and Drug Abuse Patient Records regulations: The Federal rules restrict any use of the information to criminally investigate or prosecute any alcohol or drug abuse patient.[facility] HospitalIn the event this information is protected by the Federal Confidentiality of Alcohol and Drug Abuse Patient Records regulations: The Federal rules restrict any use of the information to criminally investigate or prosecute any alcohol or drug abuse patient.[facility] FOR RECORDS PERTAINING TO PATIENTS WHO [...] BE BASED ON THE PRIMARY CLINICAL RECORDS. [facility] HospitalAdB[facility]. provides no warranty or guarantee of the accuracy or completeness of information in this document.
[2024-03-10 15:22] VITALS: BP 133/73; PULSE 98
--- NOTE | 2024-03-10 15:35 | US_ITS ---
[address] [address] Patient Name: CRISTIAN DONALDSON MRN: [id number] date: 1990 Sex: F Assigned Patient Location: [facility] Current Patient Location: Accession/Order Number: [id number] Exam Date: 03/10/2024 15:40 Report Date: 03/10/2024 16:18 At the request of: DAVIN GREEN Procedure: US OB BPP w non-stress EXAMINATION: US OB BPP w non-stress HISTORY: Excessive growth COMPARISON: No relevant comparison available. TECHNIQUE: Ultrasound biophysical profile was performed in the radiology department. non-reactive stress testing was performed by nursing staff in the birthing center. FINDINGS: BREATHING MOVEMENTS: 2.0 GROSS BODY MOVEMENTS: 2.0 TONE: 2.0 QUALITATIVE AMNIOTIC FLUID VOLUME: 2.0 PRESENTATION: CEPHALIC HEART RATE: 149.2 bpm H.B./min AMNIOTIC FLUID VOLUME: 18.7 cm cm GESTATIONAL AGE: 36 weeks 4 days CONCLUSION: Total biophysical profile score: 8.0 Electronically authenticated by: JO-ANN CHACON Date: 03/10/2024 16:18
== END 2024-03-10 16:00 | disposition home or self-care (01) ==
LOC: US 07:12 → FBC 15:12
PROVIDERS: Visit Provider Obstetrics & Gynecology
DX: O36.63X0 Maternal care for excessive fetal growth, third trimester, not applicable or unspecified (principal); Z3A.36 36 weeks gestation of pregnancy
CPT/HCPCS: 76818

== ENCOUNTER 2024-03-13 06:59 | Outpatient (OUT) | payer MEDICAID, SELFPAY ==
--- OUTSIDE RECORDS SUMMARY | 2024-03-13 07:02 | XMS_ITS | CCD ---
Author Organization [facility] Care Team Providers Care Plumbing Designer Name Role Phone Gehlot, Upender Unavailable Unavailable Gehlot, Upender Unavailable Unavailable EMPERATRIZ CERNA Unavailable Unavailable Sally Morejon Primary Care Provider Unavailable Primary Care Provider UnavailCANDACE Dubon Referring Unavailable Sally Morejon Primary Care Provider Sally Morejon CNP Primary Care Provider [phone] Shayla Valle Unavailable JUMANA Valle Attending Provider AICHHOLZ, CERTIFIED PROCEDURAL CODER VITO Admitting Unavailable AICHHOLZ, CERTIFIED PROCEDURAL CODER VITO Attending Unavailable AICHHOLZ, CERTIFIED PROCEDURAL CODER VITO Primary Care Unavailable AICHHOLZ, CERTIFIED PROCEDURAL CODER VITO Consulting Unavailable NORMA ., DR JIN Admitting Unavailable NORMA ., DR IJN Attending Unavailable AICHHOLZ, CERTIFIED PROCEDURAL CODER VITO Primary Care Unavailable NORMA ., DR JIN Consulting Unavailable RONAK, DR BOBBI Bianchi Consulting Unavailable NORMA ., DR JIN Admitting Unavailable NORMA ., DR JIN Attending Unavailable AICHHOLZ, CERTIFIED PROCEDURAL CODER VITO Primary Care Unavailable NORMA ., DR JIN Consulting Unavailable ZIEBDEANNE, DR BOBBI Bianchi Consulting Unavailable NORMA ., DR JIN Admitting Unavailable NORMA ., DR JIN Attending Unavailable AICHHOLZ, CERTIFIED PROCEDURAL CODER VITO Primary Care Unavailable NORMA ., DR JIN Consulting Unavailable AICHHOLZ, CERTIFIED PROCEDURAL CODER VITO Admitting Unavailable AICHHOLZ, CERTIFIED PROCEDURAL CODER VITO Attending Unavailable AICHHOLZ, CERTIFIED PROCEDURAL CODER VITO Primary Care Unavailable NORMA ., DR JIN Admitting Unavailable NORMA ., DR JIN Attending Unavailable AICHHOLZ, CERTIFIED PROCEDURAL CODER VITO Primary Care Unavailable NORMA ., DR JIN Consulting Unavailable NORMA ., DR JIN Admitting Unavailable NORMA ., DR JIN Attending Unavailable AICHHOLZ, CERTIFIED PROCEDURAL CODER VITO Primary Care Unavailable NORMA ., DR JIN Consulting Unavailable AGUBOSIMWADE Consulting Unavailable SOFI XIAO Consulting Unavailable NORMA ., DR JIN Admitting Unavailable NORMA ., DR JIN Attending Unavailable AICHHOLZ, CERTIFIED PROCEDURAL CODER VITO Primary Care Unavailable NORMA ., DR JIN Consulting Unavailable AICHHOLZ, CERTIFIED PROCEDURAL CODER VITO Admitting Unavailable AICHHOLZ, CERTIFIED PROCEDURAL CODER VITO Attending Unavailable AICHHOLZ, CERTIFIED PROCEDURAL CODER VITO Primary Care Unavailable WEST, DR JO-ANN Nicolas Consulting Unavailable AICHHOLZ, CERTIFIED PROCEDURAL CODER VITO Consulting Unavailable Yoel Jarrett Unavailable MD Karan Romero Attending Provider NON STAFF Primary Care Provider Unavailabl e NON STAFF Primary Care Unavailable Karan Romero Attending Unavailabl Karan Osuna Admitting Unavailabl e Shayla Valle Attending Unavailable Shayla Valle Admitting Unavailable Delgado INTERNET DESIGNER-CERTIFIED PROCEDURAL CODER, Freddie Primary Care Provider Unavailable Primary Care Provider Unavailabl e DELGADO, FREDDIE Attending Unavailable DELGADO, FREDDIE Referring Unavailable DELGADO, FREDDIE Primary Care Unavailable ROJAS, FIDENCIO Attending Unavailable DELGADO, FREDDIE Referring Unavailable DELGADO, FREDDIE Primary Care Unavailable Delgado, Freddie Primary Care Provider [phone] GURJIT ROBIN Attending Unavailable DELGADO, FREDDIE Referring [...] Unavailable DELGADO, FREDDIE Primary Care Unavailable Delgado CERTIFIED PROCEDURAL CODER, Freddie Adrian Primary Care Provid er NORMA, ELIAZAR Attending Unavailable BRONWYN, DIONNE Attending Unavailable NORMA, ELIAZAR Attending Unavailable NORMA, ELIAZAR Attending Unavailable BRONWYN, DIONNE Attending Unavailable NORMA, ELIAZAR Attending Unavailable NORMA, ELIAZAR Attending Unavailable NORMA, ELIAZAR Attending Unavailable NORMA, ELIAZAR Attending Unavailable DELGADO, FREDDIE ADRIAN Primary Care Unavail able TUFARO, FRANSICO Referring Unavailable BAILIT, ANA Attending Unavailable DELGADO, FREDDIE ADRIAN Primary Care Unavail able TUFARO, FRANSICO Attending Unavailable ABHYANKAR, USMAN Attending Unavailable DELGADO, FREDDIE ADRIAN Primary Care Unavail able DELGADO, FREDDIE ADRIAN Primary Care Unavail able BAILIT, ANA Referring Unavailable BAILIT, ANA Attending Unavailable ABHYANKAR, USMAN Referring Unavailable DELGADO, FREDDIE ADRIAN Primary Care Unavail able DELGADO, FREDDIE ADRIAN Primary Care Unavail able ABHYANKAR, USMAN Referring Unavailable DELGADO, FREDDIE ADRIAN Primary Care Unavail able BAILIT, ANA Attending Unavailable Allergies Allergy Classification Reported Allergen(s) Allergy Type Date of Onset Reaction(s) Facility Penicillins (antibiotic) (1 source) Penicillins Drug Allergy 2 Unknown [facility] (13 sources) Penicillins (Antibiotic) Allergy to substance 9 [facility] Work Phone: (8 sources) [facility] 0 [facility] (6 sources) Penicillin G Drug Allergy 3 [facility] Work Phone: (1 source) Penicillin Drug Allergy [facility] (6 sources) Penicillins; Translations: [PENICILLINS] Drug allergy (disorder) 2 [facility] Repository (20 sources) Penicillins Propensity to adverse reactions to drug 2 Other (See Comments), Unknown [facility] (3 sources) Penicillins Drug Allergy 2 Unknown [facility] Medications Current Medications Medication Drug Class(es) Dates Sig (Normalized) Sig (Original) [id number] 200 actuat albuterol 0.09 mg/actuat metered dose [...] 02-07-2023 Crutches Underarm Crutches January, Active diphenhydrAMINE (17 sources) Histamine-1 Receptor Antagonist Start: 12-10-2023 diphenhydramine [...] Take 400 mg by mouth . nystatin [id number] unt/ml oral suspension (1 source) Polyene Antifungal Start: 05-29-2023 take 5 mL by mouth three times daily Nystatin 586021 UNIT/ML 5 ml Mouth/Throat 3 times a [...] 16, 2023 12:00am omeprazole magne sium (ACID GATE TECHNICIAN, OMEPRAZOLE, ORAL) Take by mouth as directed. [...] Active PNV no.95/ferrous fum/folic ac ( ORAL) (18 sources) PNV no.95/ferrou s fum/folic ac ( ORAL) Take by mouth as directed. 0 Active Comment on above: Take by mouth as dir ected. tupafrjb81-poit-lpvxu- omega3 29-1-400 mg combo pack,tablet & capDR (9 sources) wwmehwpk78-unde- folic -omega3 29-1-400 mg combo pack,tablet & [...] Release 24 Hour 07/28/2019 - 09/18/2019 Provider: Cadnace Grossman CNP Completed/Discontinued Medications Medication Drug Class(es) [...] mg/ml oral solution (4 sources) Phenothiazine, Uncompetitive Q-qaqawm-T-aspartat e Receptor Antagonist, Sigma-1 Agonist Start: 01-08-2020 [...] type] Onset: 02-13-2023 02-13-2023 Chronic Esophageal disorders (20 sources) Gastroesophageal reflux disease; Translations: [Gastro-esophageal reflux disease without esophagitis] Onset: 03-19-2023 Chronic Headache; including migraine (15 sources) Chronic cluster headache; Translations: [Chronic cluster [...] 01-14-2024 Episodic Other non-epithelial cancer of skin (15 sources) Malignant neoplasm of skin; Translations: [Unspecified [...] MOLE] Onset: 05-29-2022 Episodic Other complications of (16 sources) Elderly primigravida; Translations: [Supervision of elderly [...] Test Name Value Interpretation Reference Range Facility [facility] 03-11-2024 CNPN Telephone (PLASMN) VY MCKEON ([id number]) 1990 F Date Time Provider Department 03/11/24 FRANSICO SHARP During your visit today, we recorded the following information about you: Ward Orta 03/11/2024 12:49 PM Signed Fax sent to request path for a reread Included fed ex label. Allergies As of Date: 03/11/2024 Noted Allergy Reaction PENICILLINS 04/05/2022 16 - Unknown Comments: unknown Other Reaction(s): Unknown Reaction Date Reviewed: 01/21/2024 Reviewed by: Reji Manning RN - Fully Assessed Reason for Visit: path requested [Other] Prescriptions as of 03/11/2024 - diphenhydramine HCl (UNISOM, DIPHENHYDRAMINE, ORAL) - [...] mg by mouth. - omeprazole magnesium (ACID GATE TECHNICIAN, OMEPRAZOLE, ORAL) Take by mouth as directed. - PNV no.95/ferrous fum/folic ac ( ORAL) Take by mouth as directed. Problem List As Of Date 03/11/2024 Noted Resolved AMA (advanced maternal age) primigravida 35+, u*10/08/2023 Bipolar disorder (HCC) [F31.9] 01/21/2024 Chronic cluster headache [G44.029] 01/21/2024 GERD (gastroesophageal reflux disease) [K21.9] 01/21/2024 Mild intermittent asthma without complication [*02/13/2023 Placenta previa antepartum in second trimester *11/20/2023 03/06/2024 Skin cancer [C44.90] 01/21/2024 Encounter Status:Closed by WARD ORTA on 03/11/24 [facility] 03-04-2024 PRADEEPN Telephone (SHARLENE) VY MCKEON ([id number]) 1990 F Date Time Provider Department 03/04/24 DAISY MURRAY During your visit today, we recorded the following information about you: Daisy Murray RN 03/04/2024 3:58 PM Signed Pt requesting CT results [place]a: Please review and advise Daisy Murray RN Usman Goldberg MD 03/05/2024 9:00 AM Signed I think [...] mg by mouth. - omeprazole magnesium (ACID GATE TECHNICIAN, OMEPRAZOLE, ORAL) Take by mouth as directed. [...] Encounter Status:Closed by DAISY MURRAY on 03/05/24 [facility] ([id number]) 1990 F Date Time Provider Department 02/29/24 FRANSICO SHARP During your visit today, we recorded the following information about you: Ward Orta 02/29/2024 3:26 PM Signed Pt calling in [...] mg by mouth. - omeprazole magnesium (ACID GATE TECHNICIAN, OMEPRAZOLE, ORAL) Take by mouth as directed. [...] Encounter Status:Closed by SURJIT GRIGGS on 03/03/24 [facility] 02-26-2024 CNPN Telephone (HEMASA) VY MCKEON ([id number]) 1990 F Date Time Provider Department 02/26/24 [...] scans were reviewed by oncology team. Dr. Tufaro notified and aware. Plan is for surgery [...] mg by mouth. - omeprazole magnesium (ACID GATE TECHNICIAN, OMEPRAZOLE, ORAL) Take by mouth as directed. [...] Status:Closed by SYLVIA ALCALA on 02/26/24 [address] [facility] [address] CHEST W IVCONon CT CHEST W IVCON * * *Final Report* * * DATE OF EXAM: Feb 22 2024 11:19AM [facility] 0539 - CT CHEST W [...] abdomen: Visualized upper abdomen is grossly unremarkable. Coronary Care Unit Nurse (topogram) images: Unremarkable. IMPRESSION: Focal groundglass opacity [...] any questions regarding this interpretation, please call [phone]. If you are unable to reach us at the number above, please feel free to contact [facility] eRadiology at [phone]. [id number] N Normal [facility] CT NECK SOFT TISSUE W IVCONo n 02-22-2024 CT NECK SOFT TISSUE W IVCON * * *Final Report* * * DATE OF EXAM: Feb 22 2024 11:19AM [facility] 0013 - CT NECK SOFT [...] amalgam. Parotid and submandibular spaces are normal. Herb Counselor spaces appear normal. Infrahyoid Neck: Hypopharynx, larynx, [...] any questions regarding this interpretation, please call [phone]. If you are unable to reach us at the number above, please feel free to contact [facility] eRadiology at [phone]. [id number] N Normal [facility] CBC W Auto Differential pane l (Bld)on 02-20-2024 Basophils (Bld) [#/Vol] 0.03 10*3/uL Normal <0.11 [facility] Comment on above: Order Comment: Speci men Type: BLOOD SPECIMENOrdering Facility: [facility] Address: [address] [place] [address] Performed By: #### 5 7021-8 ####[facility] LABCLIA [id number] [place] [address] Basophils/100 WBC (Bld) 0.3 % Normal [facility] Comment on above: Order Comment: Speci men Type: BLOOD SPECIMENOrdering Facility: [facility] Address: [address] [place] [address] Performed By: #### 5 7021-8 ####[facility] LABCLIA [id number] [place] [address] Differential cell count method Nom (Bld) Auto Normal [facility] Comment on above: Order Comment: Speci men Type: BLOOD SPECIMENOrdering Facility: [facility] Address: [address] [place] [address] Performed By: #### 5 7021-8 ####[facility] LABCLIA [id number] [place] [address] Eosinophils (Bld) [#/Vol] 0.08 10*3/uL Normal <0.46 [facility] Comment on above: Order Comment: Speci men Type: BLOOD SPECIMENOrdering Facility: [facility] Address: [address] [place] [address] Performed By: #### 5 7021-8 ####[facility] LABCLIA [id number] [place] [address] Eosinophils/100 WBC (Bld) 0.8 % Normal [facility] Comment on above: Order Comment: Speci men Type: BLOOD SPECIMENOrdering Facility: [facility] Address: [address] [place] [address] Performed By: #### 5 7021-8 ####[facility] LABCLIA [id number] [place] [address] Erythrocyte distribution width (RBC) [Ratio] 13.5 % Normal 11.5-15.0 [facility] Comment on above: Order Comment: Speci men Type: BLOOD SPECIMENOrdering Facility: [facility] Address: [address] [place] [address] Performed By: #### 5 7021-8 ####[facility] LABCLIA [id number] [place] [address] Hematocrit (Bld) [Volume fraction] 33.4 % Low 36.0-46.0 [facility] Comment on above: Order Comment: Speci men Type: BLOOD SPECIMENOrdering Facility: [facility] Address: [address] [place] [address] Performed By: #### 5 7021-8 ####[facility] LABCLIA [id number] [place] [address] Hemoglobin (Bld) [Mass/Vol] 11.2 g/dL Low 11.5-15.5 [facility] Comment on above: Order Comment: Speci men Type: BLOOD SPECIMENOrdering Facility: [facility] Address: [address] [place] [address] Performed By: #### 5 7021-8 ####[facility] LABCLIA [id number] [place] [address] Immature granulocytes (Bld) [#/Vol] 0.07 10*3/uL Normal <0.10 [facility] Comment on above: Order Comment: Speci men Type: BLOOD SPECIMENOrdering Facility: [facility] Address: [address] [place] [address] Performed By: #### 5 7021-8 ####[facility] LABCLIA [id number] [place] [address] Immature granulocytes/100 WBC (Bld) 0.7 % Normal [facility] Comment on above: Order Comment: Speci men Type: BLOOD SPECIMENOrdering Facility: [facility] Address: [address] [place] [address] Performed By: #### 5 7021-8 ####[facility] LABCLIA [id number] [place] [address] Lymphocytes (Bld) [#/Vol] 1.13 10*3/uL Normal 1.00-4.00 [facility] Comment on above: Order Comment: Speci men Type: BLOOD SPECIMENOrdering Facility: [facility] Address: [address] [place] [address] Performed By: #### 5 7021-8 ####[facility] LABCLIA [id number] [place] [address] Lymphocytes/100 WBC (Bld) 10.7 % Normal [facility] Comment on above: Order Comment: Speci men Type: BLOOD SPECIMENOrdering Facility: [facility] Address: [address] [place] [address] Performed By: #### 5 7021-8 ####[facility] LABCLIA [id number] [place] [address] MCH (RBC) [Entitic mass] 29.5 pg Normal 26.0-34.0 [facility] Comment on above: Order Comment: Speci men Type: BLOOD SPECIMENOrdering Facility: [facility] Address: [address] [place] [address] Performed By: #### 5 7021-8 ####[facility] LABCLIA [id number] [place] [address] MCHC (RBC) [Mass/Vol] 33.5 g/dL Normal 30.5-36.0 [facility] Comment on above: Order Comment: Speci men Type: BLOOD SPECIMENOrdering Facility: [facility] Address: [address] [place] [address] Performed By: #### 5 7021-8 ####[facility] LABCLIA [id number] [place] [address] MCV (RBC) [Entitic vol] 87.9 fL Normal 80.0-100.0 [facility] Comment on above: Order Comment: Speci men Type: BLOOD SPECIMENOrdering Facility: [facility] Address: [address] [place] [address] Performed By: #### 5 7021-8 ####[facility] LABCLIA [id number] [place] [address] Monocytes (Bld) [#/Vol] 0.52 10*3/uL Normal <0.87 [facility] Comment on above: Order Comment: Speci men Type: BLOOD SPECIMENOrdering Facility: [facility] Address: [address] [place] [address] Performed By: #### 5 7021-8 ####[facility] LABCLIA [id number] [place] [address] Monocytes/100 WBC (Bld) 4.9 % Normal [facility] Comment on above: Order Comment: Speci men Type: BLOOD SPECIMENOrdering Facility: [facility] Address: [address] [place] [address] Performed By: #### 5 7021-8 ####[facility] LABCLIA [id number] [place] [address] Neutrophils (Bld) [#/Vol] 8.76 10*3/uL High 1.45-7.50 [facility] Comment on above: Order Comment: Speci men Type: BLOOD SPECIMENOrdering Facility: [facility] Address: [address] [place] [address] Performed By: #### 5 7021-8 ####[facility] LABCLIA [id number] [place] [address] Neutrophils/100 WBC (Bld) 82.6 % Normal [facility] Comment on above: Order Comment: Speci men Type: BLOOD SPECIMENOrdering Facility: [facility] Address: [address] [place] [address] Performed By: #### 5 7021-8 ####[facility] LABCLIA [id number] [place] [address] Nucleated RBC (Bld) [#/Vol] 10*3/uL Normal <0.01 [facility] Comment on above: Order Comment: Speci men Type: BLOOD SPECIMENOrdering Facility: [facility] Address: [address] [place] [address] Performed By: #### 5 7021-8 ####[facility] LABCLIA [id number] [place] [address] Nucleated RBC/100 WBC (Bld) [Ratio] 0.0 /100 WBC Normal [facility] Comment on above: Order Comment: Speci men Type: BLOOD SPECIMENOrdering Facility: [facility] Address: [address] [place] [address] Performed By: #### 5 7021-8 ####[facility] LABCLIA [id number] [place] [address] Platelet mean volume (Bld) [Entitic vol] 10.0 fL Normal 9.0-12.7 [facility] Comment on above: Order Comment: Speci men Type: BLOOD SPECIMENOrdering Facility: [facility] Address: [address] [place] [address] Performed By: #### 5 7021-8 ####[facility] LABCLIA [id number] [place] [address] Platelets (Bld) [#/Vol] 199 10*3/uL Normal 150-400 [facility] Comment on above: Order Comment: Speci men Type: BLOOD SPECIMENOrdering Facility: [facility] Address: [address] [place] [address] Performed By: #### 5 7021-8 ####[facility] LABCLIA [id number] [place] [address] RBC (Bld) [#/Vol] 3.80 10*6/uL Low 3.90-5.20 [facility] Comment on above: Order Comment: Speci men Type: BLOOD SPECIMENOrdering Facility: [facility] Address: [address] [place] [address] Performed By: #### 5 7021-8 ####[facility] LABCLIA [id number] [place] [address] WBC (Bld) [#/Vol] 10.59 10*3/uL Normal 3.70-11.00 [facility] Comment on above: Order Comment: Speci men Type: BLOOD SPECIMENOrdering Facility: [facility] Address: [address] [place] [address] Performed By: #### 5 7021-8 ####[facility] LABCLIA [id number] [place] [address] Comprehensive metabolic 2000 panelon 02-20-2024 Albumin [Mass/Vol] 3.8 g/dL Low 3.9-4.9 [facility] Comment on above: Order Comment: Speci men Type: BLOOD SPECIMENOrdering Facility: [facility] Address: [address] [place] [address] Performed By: #### 2 4323-8, 2532-0 ####[facility] LABCLIA [id number] [place] [address] ALP [Catalytic activity/Vol] 161 U/L High 34-123 [facility] Comment on above: Order Comment: Speci men Type: BLOOD SPECIMENOrdering Facility: [facility] Address: [address] [place] [address] Performed By: #### 2 4323-8, 2532-0 ####[facility] LABCLIA [id number] [place] [address] ALT [Catalytic activity/Vol] 13 U/L Normal 7-38 [facility] Comment on above: Order Comment: Speci men Type: BLOOD SPECIMENOrdering Facility: [facility] Address: [address] [place] [address] Performed By: #### 2 4323-8, 2531-0 ####[facility] LABCLIA [id number] [place] [address] Anion gap [Moles/Vol] 10 mmol/L Normal 9-18 [facility] Comment on above: Order Comment: Speci men Type: BLOOD SPECIMENOrdering Facility: [facility] Address: [address] [place], [place] [address] Performed By: #### 2 432-8, 2531-0 ####[facility] LABCLIA [id number] [place] [address] AST [Catalytic activity/Vol] 21 U/L Normal 13-35 [facility] Comment on above: Order Comment: Speci men Type: BLOOD SPECIMENOrdering Facility: [facility] Address: [address] [place], [place] [address] Performed By: #### 2 432-8, 2531-0 ####[facility] LABCLIA [id number] [place] [address] Bilirubin [Mass/Vol] 0.2 mg/dL Normal 0.2-1.3 [facility] Comment on above: Order Comment: Speci men Type: BLOOD SPECIMENOrdering Facility: [facility] Address: [address] [place] [address] Performed By: #### 2 4323-8, 2531-0 ####[facility] LABCLIA [id number] [place] [address] Calcium [Mass/Vol] 10.1 mg/dL Normal 8.5-10.2 [facility] Comment on above: Order Comment: Speci men Type: BLOOD SPECIMENOrdering Facility: [facility] Address: [address] [place] [address] Performed By: #### 2 4323-8, 2531-0 ####[facility] LABCLIA [id number] [place] [address] Chloride [Moles/Vol] 103 mmol/L Normal 97-105 [facility] Comment on above: Order Comment: Speci men Type: BLOOD SPECIMENOrdering Facility: [facility] Address: [address] [place] [address] Performed By: #### 2 4323-8, 2532-0 ####[facility] LABCLIA [id number] [place] [address] CO2 [Moles/Vol] 21 mmol/L Low 22-30 [facility] Comment on above: Order Comment: Speci men Type: BLOOD SPECIMENOrdering Facility: [facility] Address: [address] [place] [address] Performed By: #### 2 4323-8, 2532-0 ####[facility] LABCLIA [id number] [place] [address] Creatinine [Mass/Vol] 0.61 mg/dL Normal 0.58-0.96 [facility] Comment on above: Order Comment: Speci men Type: BLOOD SPECIMENOrdering Facility: [facility] Address: [address] [place] [address] Performed By: #### 2 4323-8, 2532-0 ####[facility] LABIA [id number] [place] [address] Creatinine and Glomerular filtration rate.predicted panel (S/P/Bld) 120 mL/min/1.73m??? Normal >=60 [facility] Comment on above: Order Comment: Speci men Type: BLOOD SPECIMENOrdering Facility: [facility] Address: [address] [place] [address] Result Comment: Araseli mated Glomerular Filtration Rate [...] GFR. Performed By: #### 2 4323-8, 2531-0 ####[facility] LABCLIA [id number] [place] [address] Glucose [Mass/Vol] 85 mg/dL Normal 74-99 [facility] Comment on above: Order Comment: Speci men Type: BLOOD SPECIMENOrdering Facility: [facility] Address: [address] [place] [address] Result Comment: The [place] Diabetes Association (ADA) provides guidance for cutoff [...] Standards of Medical Care in Diabetes 2016, [place] [employer]. Diabetes Care. 2016.39(Suppl 1). Performed By: #### 2 4323-8, 0 ####[facility] LABCLIA [id number] [place] [address] Potassium [Moles/Vol] 3.9 mmol/L Normal 3.7-5.1 [facility] Comment on above: Order Comment: Speci men Type: BLOOD SPECIMENOrdering Facility: [facility] Address: [address] [place], [place] [address] Performed By: #### 2 4323-8, 2531-0 ####[facility] LABIA [id number] [place] [address] Protein [Mass/Vol] 7.2 g/dL Normal 6.3-8.0 [facility] Comment on above: Order Comment: Speci men Type: BLOOD SPECIMENOrdering Facility: [facility] Address: [address] [place] [address] Performed By: #### 2 4323-8, 2531-0 ####[facility] LABCLIA [id number] [place] [address] Sodium [Moles/Vol] 134 mmol/L Low 136-144 [facility] Comment on above: Order Comment: Speci men Type: BLOOD SPECIMENOrdering Facility: [facility] Address: [address] [place] [address] Performed By: #### 2 4323-8, 2531-0 ####[facility] LABCLIA [id number] [place] [address] Urea nitrogen [Mass/Vol] 6 mg/dL Low 7-21 [facility] Comment on above: Order Comment: Speci men Type: BLOOD SPECIMENOrdering Facility: [facility] Address: [address] [place] [address] Performed By: #### 2 4323-8, 2531-0 ####[facility] LABCLIA [id number] [place] [address] LDH SerPl-cCncon 02-20-2024 LDH [Catalytic activity/Vol] 210 U/L Normal 135-214 [facility] Comment on above: Order Comment: Speci men Type: BLOOD SPECIMENOrdering Facility: [facility] Address: [address] [place], [place] [address] Performed By: #### 2 4323-8, 2531-0 ####[facility] LABCLIA [id number] [place] [address] COMPLETE BLOOD COUNTon 01-28 Erythrocyte distribution width (RBC) [Ratio] 13.6 % Normal 11.5-15.0 [facility] Comment on above: Performed By: #### C BC, CMP, 2532-0, 3084-1 #### [facility] ([id number]) [address] [place] [address], [place] [address] Hematocrit (Bld) [Volume fraction] 29.4 % Low 35-47 [facility] Comment on above: Performed By: #### Adri MESSER CMP, 0, 3083-10 #### [facility] ([id number]) [address] [place] [address] Hemoglobin (Bld) [Mass/Vol] 10.4 g/dL Low 11.7-15.5 [facility] Comment on above: Performed By: #### Adri MESSER CMP, 0, 3083-10 #### [facility] ([id number]) [address] [place] [address] MCH (RBC) [Entitic mass] 31.0 pg Normal 27-34 [facility] Comment on above: Performed By: #### Adri MESSER CMP, 0, 3083-10 #### [facility] ([id number]) [address] [place] [address] MCHC (RBC) [Mass/Vol] 35.3 g/dL Normal 32-36 [facility] Comment on above: Performed By: #### Adri MESSER CMP, 0, 3083-10 #### [facility] ([id number]) [address] [place] [address] 22698 MCV (RBC) [Entitic vol] 88 fL Normal 80-100 [facility] Comment on above: Performed By: #### Adri MESSER CMP, 0, 3083-10 #### [facility] ([id number]) [address] [place] [address] Platelet mean volume (Bld) [Entitic vol] 8.1 fL Normal 7-12 [facility] Comment on above: Performed By: #### Adri MESSER CMP, 0, 3083-10 #### [facility] ([id number]) [address] [place] [address] Platelets (Bld) [#/Vol] 205 10*3/uL Normal 150-450 [facility] Comment on above: Performed By: #### C BC, CMP, 2532-0, 3084-1 #### [facility] ([id number]) [address] [place] [address] RBC COUNT 3.34 X10E12/L Low 3.80-5.20 [facility] Comment on above: Performed By: #### C BC, CMP, 2-0, 3083-1 #### [facility] ([id number]) [address] [place] [address] WBC (Bld) [#/Vol] 8.2 10*3/uL Normal 4.0-11.0 [facility] Comment on above: Performed By: #### C BC, CMP, 2531-0, 3083-1 #### [facility] ([id number]) [address] [place] [address] COMPREHENSIVE METABOLIC PANE Joel 01-29-2024 Albumin [Mass/Vol] 2.8 g/dL Low 3.2-5.3 [facility] Comment on above: Performed By: #### C BC, CMP, 2531-0, 3083-1 #### [facility] ([id number]) [address] [place] [address] ALP [Catalytic activity/Vol] 103 U/L Normal 39-130 [facility] Comment on above: Performed By: #### C BC, CMP, 2532-0, 3083-1 #### [facility] ([id number]) [address] [place] [address]140 ALT [Catalytic activity/Vol] 16 U/L Normal 0-31 [facility] Comment on above: Performed By: #### C BC, CMP, 2532-0, 3084-1 #### [facility] ([id number]) [address] [place] [address] Anion gap [Moles/Vol] 9 mmol/L Normal 5-15 [facility] Comment on above: Performed By: #### C NATASHA MESSER, 0, 3083-10 #### [facility] ([id number]) [address] [place] [address] AST [Catalytic activity/Vol] 18 U/L Normal 0-41 [facility] Comment on above: Performed By: #### Adri MESSER CMP, 0, 3083-10 #### [facility] ([id number]) [address] [place] [address]751 Bilirubin [Mass/Vol] 0.3 mg/dL Normal 0.3-1.2 [facility] Comment on above: Performed By: #### Adri MESSER [facility], 0, 3083-10 #### [facility] ([id number]) [address] [place] [address]60 Calcium [Mass/Vol] 9.2 mg/dL Normal 8.5-10.5 [facility] Comment on above: Performed By: #### Adri MESSER CMP, 0, 3083-10 #### [facility] ([id number]) [address] [place] [address] 32204 Chloride [Moles/Vol] 105 mmol/L Normal 98-109 [facility] Comment on above: Performed By: #### Adri MESSER CMP, 0, 3083-10 #### [facility] ([id number]) [address] [place] [address]30 CO2 [Moles/Vol] 22 mmol/L Normal 22-32 [facility] Comment on above: Performed By: #### Adri MESSER CMP, 0, 3083-10 #### [facility] ([id number]) [address] [place] [address]952 Creatinine [Mass/Vol] 0.51 mg/dL Normal 0.40-1.00 [facility] Comment on above: Result Comment: METH OD TRACEABLE TO IDMS STANDARD Performed By: #### Adri MESSER CMP, 2531-0, 3083-10 #### [facility] ([id number]) [address] [place] [address]23 eGFR (CKD-EPI) NON-RACE DEPENDENT >90 Normal >59 [facility] Comment on above: Result Comment: Reported eGFR is based on the CKD-EPI 2020 equation that does not use a race coefficient. Performed By: #### Adri MESSER CMP, 2531-0, 3083-10 #### [facility] ([id number]) [address] [place] [address]199 Glucose [Mass/Vol] 96 mg/dL Normal 65-99 [facility] Comment on above: Performed By: #### Adri MESSER CMP, 0, 3083-10 #### [facility] ([id number]) [address] [place] [address]7969 Potassium [Moles/Vol] 4.1 mmol/L Normal 3.5-5.0 [facility] Comment on above: Performed By: #### Adri MESSER CMP, 0, 3083-10 #### [facility] ([id number]) [address] [place] [address]4593 Protein [Mass/Vol] 6.5 g/dL Normal 6.0-8.0 [facility] Comment on above: Performed By: #### Adri MESSER CMP, 2531-0, 3083-10 #### [facility] ([id number]) [address] [place] [address] 48208 Sodium [Moles/Vol] 136 mmol/L Normal 134-146 [facility] Comment on above: Performed By: #### Adri MESSER CMP, 0, 3083-10 #### [facility] ([id number]) [address] [place] [address] 12995 Urea nitrogen [Mass/Vol] 5 mg/dL Normal 5-23 [facility] Comment on above: Performed By: #### C NATASHA MESSER, 2531-0, 3083-1 #### [facility] ([id number]) [address] [place] [address]53 LDH [Catalytic activity/Vol] on 01-29-2024 LDH 128 U/L Normal 100-235 [facility] Comment on above: Performed By: #### C NATASHA MESSER, 0, 3083-10 #### [facility] ([id number]) [address] [place] [address]2016 PROTEIN CREAT RATIOon 2023 RANDOM URINE PROTEIN 30 mg/L Normal <120 [facility] Comment on above: Performed By: #### U PCR #### [facility] ([id number]) [address] [place] [address]84 U/PRO/SOLAR PANEL INSTALLER RATIO CALC 0.12 Normal <0.2 [facility] Comment on above: Result Comment: Neph rotic Syndrome is associated with ratios >3.5 Performed By: #### U PCR #### [facility] ([id number]) [address] [place] [address] 46387 URINE CREATININE,RDM 25.84 mg/dL Normal [facility] Comment on above: Performed By: #### U PCR #### [facility] ([id number]) [address] [place] [address]6440 URIC ACIDon 01-29-2024 Urate [Mass/Vol] 4.1 mg/dL Normal 2.6-7.2 [facility] Comment on above: Performed By: #### C NATASHA MESSER, 0, 3083-10 #### [facility] ([id number]) [address] [place] [address]25 Alina 01-25-2024 CNPN Telephone (PLASMN) VY MCKEON ([id number]) 1990 F Date Time Provider Department 01/25/24 [...] mg by mouth. - omeprazole magnesium (ACID GATE TECHNICIAN, OMEPRAZOLE, ORAL) Take by mouth as directed. [...] Status:Closed by CYNTHIA PETTY on 01/25/24 Normal [facility] CNPNon 01-22-2024 CNPN Telephone (HEMASA) VY MCKEON ([id number]) 1990 F Date Time Provider Department 01/22/24 [...] MD 1 hour ago (8:13 AM) MACK Ks, That is fine obstetrically if you are [...] Vy and she is in agreement. ThanksAngela Allergies As of Date: 01/22/2024 Noted Allergy Reaction PENICILLINS 04/05/2022 16 - Unknown Comments: unknown Other Reaction(s): Unknown Reaction Date Reviewed: 01/21/2024 Reviewed by: Reji Manning, BRITNEY - Fully Assessed Reason for Visit: Scans [867] Primary Visit Diagnosis:Malignant melanoma of skin (HCC) [C43.9] Order(s):CT NECK SOFT TISSUE W IVCON [0414735] Order #: [id number] FUTURE [] iv contrast (will be provided [...] 1 EachRfl: 0 CT CHEST W IVCON [4413302] Order #: [id number] FUTURE [] iv contrast (will be provided [...] EachRfl: 0 LACTATE DEHYDROGENASE [SQLD6] Order #: [id number] FUTURE COMPLETE BLOOD COUNT AND DIFFERENTIAL [SQCBCDIF] Order #: [id number] FUTURE COMPREHENSIVE METABOLIC PANEL [SQCMP] Order #: [id number] FUTURE Prescriptions as of 01/30/2024 - diphenhydramine [...] mg by mouth. - omeprazole magnesium (ACID GATE TECHNICIAN, OMEPRAZOLE, ORAL) Take by mouth as directed. [...] In Off (more content not included)... Normal [facility] Telephone (KJM375) VY MCKEON ([id number]) 1990 F Date Time Provider Department 01/22/24 ANA PEOPLES [id number] During your visit today, we recorded the following information about you: Ana Peoples MD 01/22/2024 3:44 PM Signed 01/22/2024 [facility] Pt called and identified ~ 12:30 [...] mg by mouth. - omeprazole magnesium (ACID GATE TECHNICIAN, OMEPRAZOLE, ORAL) Take by mouth as directed. [...] Status:Closed by ANA PEOPLES on 01/22/24 Normal [facility] Examination level ultrasound on 01-21-2024 Indication [...] 9 oz EFW by: Hadlock (HC-AC-FL) Extended Earth Science Teacher 3.1 mm CM 7.6 mm 70% Nicolaides [...] normal LVOT view: normal 3-vessel view: normal 3-kqixxb-mhobdux view: normal Heart / Thorax Situs: situs [...] Read By: Ana Peoples MD MATERNAL MEDICINE [facility] Radiology Study observation (narrative) [facility] 01-18-2024 CNPN Telephone (OBGYF2) VY MCKEON ([id number]) 1990 F Date Time Provider Department 01/18/24 OB [facility] OBGYF2 During your visit today, we [...] mg by mouth. - omeprazole magnesium (ACID GATE TECHNICIAN, OMEPRAZOLE, ORAL) Take by mouth as directed. - PNV no.95/ferrous fum/folic ac ( ORAL) Take by mouth as directed. Problem List As Of Date: 01/18/2024 (None) Encounter Status:Closed by JOSE L CROWLEY on 01/18/24 [facility] Alina 01-10-2024 CNPN Telephone (OBGYF2) VY MCKEON ([id number]) 1990 F Date Time Provider Department 01/10/24 HISTORICAL OBGYF2 During your visit today, we recorded the following information about you: Rolo Parada 01/10/2024 9:19 AM Signed [employer] msg was sent to patient asking for call back to this coordinator to schedule M consultation. Allergies As of Date: 01/10/2024 Noted [...] mg by mouth. - omeprazole magnesium (ACID GATE TECHNICIAN, OMEPRAZOLE, ORAL) Take by mouth as directed. - PNV no.95/ferrous fum/folic ac ( ORAL) Take by mouth as directed. Problem List As Of Date: 01/10/2024 (None) Encounter Status:Closed by ROLO PARADA on 01/10/24 [facility] CNPRosa 01-09-2024 CNPN Telephone (PLASMN) VY MCKEON ([id number]) 1990 F Date Time Provider Department 01/09/24 FRANSICO SHARP During your visit today, we recorded the following information about you: Fernanda Michael 01/09/2024 9:55 AM Signed Patient called that she is seeing Maternal Med, in her area and was questioning does she need to see one at the [facility]? She is asking for a call.. she is very nervous Surjit Griggs, RN 01/09/2024 12:42 PM Signed Reached out to patient. Instructions provided to see a maternal medicine specialist within the [facility] per Dr. Sharp. This nurse [...] mg by mouth. - omeprazole magnesium (ACID GATE TECHNICIAN, OMEPRAZOLE, ORAL) Take by mouth as directed. - PNV no.95/ferrous fum/folic ac ( ORAL) Take by mouth as directed. Problem List As Of Date: 01/09/2024 (None) Encounter Status:Closed by FERNANDA MICHAEL on 01/09/24 [facility] CNOVSPon 01-04-2024 CNOVSP Visit (SP) Office (PLASCA) VY MCKEON ([id number]) 1990 F Date Time Provider Department 01/04/24 2:15 PM FRANSICO SHARP During your visit today, we recorded the following information about you: Temperature Pulse Respiration Blood pressure 97.1 degrees 94/minute 20/minute 148/83 Fransico Sharp MD 01/06/2024 9:42 AM Signed DATE: January 03, 2024 CC: New Melanoma Patient Referring Physician: Margarita Kim MD at [facility] HPI: Vy Mckeon is a 33 year [...] 400 mg by mouth. omeprazole magnesium (ACID GATE TECHNICIAN, OMEPRAZOLE, ORAL) Take by mouth as directed. [...] left upper lip with a variegated pattern, security control room officer in the middle with a number of dark spots. The lesion measures 1 cm in diameter. Photos taken, see [facility] Get Images LABS: Pathology Report [...] taken and uploaded to chart today via [employer] - Pathology re-read to be obtained - Surgical plan is for resection of left upper lip melano (more content not included)... Normal [facility] CBC W Auto Differential pane l (Bld)on 12-26-2023 Basophils (Bld) [#/Vol] 0.03 10*3/uL Normal <0.11 [facility] Comment on above: Order Comment: Speci men Type: BLOOD SPECIMENOrdering Facility: [facility] Address: [address] [place] [address] [place] [id number] Performed By: #### 5 7021-8 ####[facility] LABCLIA [id number] [place] [address] Basophils/100 WBC (Bld) 0.3 % Normal [facility] Comment on above: Order Comment: Speci men Type: BLOOD SPECIMENOrdering Facility: [facility] Address: [address] [place] [address] Performed By: #### 5 7021-8 ####[facility] LABCLIA [id number] [place] [address] Differential cell count method Nom (Bld) Auto Normal [facility] Comment on above: Order Comment: Speci men Type: BLOOD SPECIMENOrdering Facility: [facility] Address: [address] [place] [address] Performed By: #### 5 7021-8 ####[facility] LABCLIA [id number] [place] [address] Eosinophils (Bld) [#/Vol] 0.15 10*3/uL Normal <0.46 [facility] Comment on above: Order Comment: Speci men Type: BLOOD SPECIMENOrdering Facility: [facility] Address: [address] [place] [address] Performed By: #### 5 7021-8 ####[facility] LABCLIA [id number] [place] [address] Eosinophils/100 WBC (Bld) 1.5 % Normal [facility] Comment on above: Order Comment: Speci men Type: BLOOD SPECIMENOrdering Facility: [facility] Address: [address] [place] [address] Performed By: #### 5 7021-8 ####[facility] LABCLIA [id number] [place] [address] Erythrocyte distribution width (RBC) [Ratio] 13.5 % Normal 11.5-15.0 [facility] Comment on above: Order Comment: Speci men Type: BLOOD SPECIMENOrdering Facility: [facility] Address: [address] [place] [address] Performed By: #### 5 7021-8 ####[facility] LABCLIA [id number] [place] [address] Hematocrit (Bld) [Volume fraction] 35.5 % Low 36.0-46.0 [facility] Comment on above: Order Comment: Speci men Type: BLOOD SPECIMENOrdering Facility: [facility] Address: [address] [place] [address] Performed By: #### 5 7021-8 ####[facility] LABCLIA [id number] [place] [address] Hemoglobin (Bld) [Mass/Vol] 12.0 g/dL Normal 11.5-15.5 [facility] Comment on above: Order Comment: Speci men Type: BLOOD SPECIMENOrdering Facility: [facility] Address: [address] [place] [address] Performed By: #### 5 7021-8 ####[facility] LABCLIA [id number] [place] [address] Immature granulocytes (Bld) [#/Vol] 0.06 10*3/uL Normal <0.10 [facility] Comment on above: Order Comment: Speci men Type: BLOOD SPECIMENOrdering Facility: [facility] Address: [address] [place] [address] Performed By: #### 5 7021-8 ####[facility] LABCLIA [id number] [place] [address] Immature granulocytes/100 WBC (Bld) 0.6 % Normal [facility] Comment on above: Order Comment: Speci men Type: BLOOD SPECIMENOrdering Facility: [facility] Address: [address] [place] [address] Performed By: #### 5 7021-8 ####[facility] LABCLIA [id number] [place] [address] Lymphocytes (Bld) [#/Vol] 1.46 10*3/uL Normal 1.00-4.00 [facility] Comment on above: Order Comment: Speci men Type: BLOOD SPECIMENOrdering Facility: [facility] Address: [address] [place] [address] Performed By: #### 5 7021-8 ####[facility] LABCLIA [id number] [place] [address] Lymphocytes/100 WBC (Bld) 15.0 % Normal [facility] Comment on above: Order Comment: Speci men Type: BLOOD SPECIMENOrdering Facility: [facility] Address: [address] [place] [address] Performed By: #### 5 7021-8 ####[facility] LABCLIA [id number] [place] [address] MCH (RBC) [Entitic mass] 30.1 pg Normal 26.0-34.0 [facility] Comment on above: Order Comment: Speci men Type: BLOOD SPECIMENOrdering Facility: [facility] Address: [address] [place] [address] Performed By: #### 5 7021-8 ####[facility] LABCLIA [id number] [place] [address] MCHC (RBC) [Mass/Vol] 33.8 g/dL Normal 30.5-36.0 [facility] Comment on above: Order Comment: Speci men Type: BLOOD SPECIMENOrdering Facility: [facility] Address: [address] [place] [address] Performed By: #### 5 7021-8 ####[facility] LABCLIA [id number] [place] [address] MCV (RBC) [Entitic vol] 89.0 fL Normal 80.0-100.0 [facility] Comment on above: Order Comment: Speci men Type: BLOOD SPECIMENOrdering Facility: [facility] Address: [address] [place] [address] Performed By: #### 5 7021-8 ####[facility] LABCLIA [id number] [place] [address] Monocytes (Bld) [#/Vol] 0.50 10*3/uL Normal <0.87 [facility] Comment on above: Order Comment: Speci men Type: BLOOD SPECIMENOrdering Facility: [facility] Address: [address] [place] [address] Performed By: #### 5 7021-8 ####[facility] LABCLIA [id number] [place] [address] Monocytes/100 WBC (Bld) 5.1 % Normal [facility] Comment on above: Order Comment: Speci men Type: BLOOD SPECIMENOrdering Facility: [facility] Address: [address] [place] [address] Performed By: #### 5 7021-8 ####[facility] LABCLIA [id number] [place] [address] Neutrophils (Bld) [#/Vol] 7.52 10*3/uL High 1.45-7.50 [facility] Comment on above: Order Comment: Speci men Type: BLOOD SPECIMENOrdering Facility: [facility] Address: [address] [place] [address] Performed By: #### 5 7021-8 ####[facility] LABCLIA [id number] [place] [address] Neutrophils/100 WBC (Bld) 77.5 % Normal [facility] Comment on above: Order Comment: Speci men Type: BLOOD SPECIMENOrdering Facility: [facility] Address: [address] [place] [address] Performed By: #### 5 7021-8 ####[facility] LABIA [id number] [place] [address] Nucleated RBC (Bld) [#/Vol] 10*3/uL Normal <0.01 [facility] Comment on above: Order Comment: Speci men Type: BLOOD SPECIMENOrdering Facility: [facility] Address: [address] [place] [address] Performed By: #### 5 7021-8 ####[facility] LABCLIA [id number] [place] [address] Nucleated RBC/100 WBC (Bld) [Ratio] 0.0 /100 WBC Normal [facility] Comment on above: Order Comment: Speci men Type: BLOOD SPECIMENOrdering Facility: [facility] Address: [address] [place] [address] Performed By: #### 5 7021-8 ####[facility] LABCLIA [id number] [place] [address] Platelet mean volume (Bld) [Entitic vol] 10.1 fL Normal 9.0-12.7 [facility] Comment on above: Order Comment: Speci men Type: BLOOD SPECIMENOrdering Facility: [facility] Address: [address] [place] [address] Performed By: #### 5 7021-8 ####[facility] LABCLIA [id number] [place] [address] Platelets (Bld) [#/Vol] 224 10*3/uL Normal 150-400 [facility] Comment on above: Order Comment: Speci men Type: BLOOD SPECIMENOrdering Facility: [facility] Address: [address] [place] [address] Performed By: #### 5 7021-8 ####[facility] LABCLIA [id number] [place] [address] RBC (Bld) [#/Vol] 3.99 10*6/uL Normal 3.90-5.20 [facility] Comment on above: Order Comment: Speci men Type: BLOOD SPECIMENOrdering Facility: [facility] Address: [address] [place] [address] Performed By: #### 5 7021-8 ####[facility] LABCLIA [id number] [place] [address] WBC (Bld) [#/Vol] 9.72 10*3/uL Normal 3.70-11.00 [facility] Comment on above: Order Comment: Speci men Type: BLOOD SPECIMENOrdering Facility: [facility] Address: [address] [place] [address] Performed By: #### 5 7021-8 ####[facility] LABCLIA [id number] [place] [address] CNOVSPon 12-26-2023 CNOVSP Visit (SP) Office (HEMASA) VY MCKEON ([id number]) 1990 F Date Time Provider Department 12/26/23 3:30 PM USMAN GOLDBERG During your visit today, we recorded the following information about you: Temperature Pulse Respiration Blood pressure 97.3 degrees 87/minute 16/minute 134/74 Weight Height Last Period 86.1 kg 1.702 m 06/24/23 Usman Goldberg MD 12/27/2023 12:46 PM Signed NAME: Vy Mckeon CLINIC NO.: [id number] DATE OF SERVICE: December 26, 2023 (Krystal) [...] magnesium (ACID (more content not included)... Normal [facility] Comprehensive metabolic 2000 panelon 12-26-2023 Albumin [Mass/Vol] 3.9 g/dL Normal 3.9-4.9 [facility] Comment on above: Order Comment: Speci men Type: BLOOD SPECIMENOrdering Facility: [facility] Address: [address] [place] [address] Performed By: #### 2 4323-8, 2531-0 ####[facility] LABCLIA [id number] [place] [address] ALP [Catalytic activity/Vol] 109 U/L Normal 34-123 [facility] Comment on above: Order Comment: Speci men Type: BLOOD SPECIMENOrdering Facility: [facility] Address: [address] [place] [address] Performed By: #### 2 4323-8, 2-0 ####[facility] LABCLIA [id number] [place] [address] ALT [Catalytic activity/Vol] 26 U/L Normal 7-38 [facility] Comment on above: Order Comment: Speci men Type: BLOOD SPECIMENOrdering Facility: [facility] Address: [address] [place] [address] Performed By: #### 2 4323-8, 2532-0 ####[facility] LABCLIA [id number] [place] [address] Anion gap [Moles/Vol] 10 mmol/L Normal 9-18 [facility] Comment on above: Order Comment: Speci men Type: BLOOD SPECIMENOrdering Facility: [facility] Address: [address] [place] [address] Performed By: #### 2 432-8, 0 ####[facility] LABCLIA [id number] [place] [address] AST [Catalytic activity/Vol] 26 U/L Normal 13-35 [facility] Comment on above: Order Comment: Speci men Type: BLOOD SPECIMENOrdering Facility: [facility] Address: [address] [place], [place] [address] Performed By: #### 2 432-8, 2531-0 ####[facility] LABIA [id number] [place] [address] Bilirubin [Mass/Vol] 0.2 mg/dL Normal 0.2-1.3 [facility] Comment on above: Order Comment: Speci men Type: BLOOD SPECIMENOrdering Facility: [facility] Address: [address] [place] [address] Performed By: #### 2 4323-8, 2531-0 ####[facility] LABIA [id number] [place] [address] Calcium [Mass/Vol] 10.1 mg/dL Normal 8.5-10.2 [facility] Comment on above: Order Comment: Speci men Type: BLOOD SPECIMENOrdering Facility: [facility] Address: [address] [place] [address] Performed By: #### 2 432-8, 2531-0 ####[facility] LABIA [id number] [place] [address] Chloride [Moles/Vol] 103 mmol/L Normal 97-105 [facility] Comment on above: Order Comment: Speci men Type: BLOOD SPECIMENOrdering Facility: [facility] Address: [address] [place] [address] Performed By: #### 2 4323-8, 2531-0 ####[facility] LABCLIA [id number] [place] [address] CO2 [Moles/Vol] 23 mmol/L Normal 22-30 [facility] Comment on above: Order Comment: Speci men Type: BLOOD SPECIMENOrdering Facility: [facility] Address: [address] [place] [address] Performed By: #### 2 4323-8, 2531-0 ####[facility] LABCLIA [id number] [place] [address] Creatinine [Mass/Vol] 0.64 mg/dL Normal 0.58-0.96 [facility] Comment on above: Order Comment: Speci men Type: BLOOD SPECIMENOrdering Facility: [facility] Address: [address] [place] [address] Performed By: #### 2 4323-8, 2531-0 ####[facility] LABIA [id number] [place] [address] Creatinine and Glomerular filtration rate.predicted panel (S/P/Bld) 118 mL/min/1.73m??? Normal >=60 [facility] Comment on above: Order Comment: Speci men Type: BLOOD SPECIMENOrdering Facility: [facility] Address: [address] [place] [address] Result Comment: Araseli mated Glomerular Filtration Rate [...] GFR. Performed By: #### 2 4323-8, 2531-0 ####[facility] LABIA [id number] [place] [address] Glucose [Mass/Vol] 85 mg/dL Normal 74-99 [facility] Comment on above: Order Comment: Speci men Type: BLOOD SPECIMENOrdering Facility: [facility] Address: [address] [place] [address] Result Comment: The [place] Diabetes Association (ADA) provides guidance for cutoff [...] Standards of Medical Care in Diabetes 2016, [place] Diabetes Association. Diabetes Care. 2016.39(Suppl 1). Performed By: #### 2 4323-8, ####[facility] LABCLIA [id number] [place] [address] Potassium [Moles/Vol] 4.1 mmol/L Normal 3.7-5.1 [facility] Comment on above: Order Comment: Speci men Type: BLOOD SPECIMENOrdering Facility: [facility] Address: [address] [place] [address] Performed By: #### 2 4323-8, ####[facility] LABCLIA [id number] [place] [address] Protein [Mass/Vol] 7.3 g/dL Normal 6.3-8.0 [facility] Comment on above: Order Comment: Speci men Type: BLOOD SPECIMENOrdering Facility: [facility] Address: [address] [id number] Performed By: #### 2 4323-8, 0 ####[facility] LABCLIA [id number] [place] [address] Sodium [Moles/Vol] 136 mmol/L Normal 136-144 [facility] Comment on above: Order Comment: Speci men Type: BLOOD SPECIMENOrdering Facility: [facility] Address: [address] [place] [address] Performed By: #### 2 4323-8, 2531-0 ####[facility] LABCLIA [id number] [place] [address] Urea nitrogen [Mass/Vol] 6 mg/dL Low 7-21 [facility] Comment on above: Order Comment: Speci men Type: BLOOD SPECIMENOrdering Facility: [facility] Address: [address] [place], [place] [address] Performed By: #### 2 4323-8, 2531-0 ####[facility] LABCLIA [id number] [place] [address] LDH SerPl-cCncon 12-26-2023 LDH [Catalytic activity/Vol] 190 U/L Normal 135-214 [facility] Comment on above: Order Comment: Speci men Type: BLOOD SPECIMENOrdering Facility: [facility] Address: [address] [place] [address] Result Comment: Hemo lysis present. The origin [...] indicated. Performed By: #### 2 4323-8, 2531-0 ####[facility] LABCLIA [id number] [place] [address] URETHRITIS/DISCHARGE PLUS VA GINITIS (HTRX)on 11-14-2023 ATOPOBIUM VAGINAE 19.497 Abnormal [facility] ATOPOBIUM VAGINAE Detected Abnormal [facility] BVAB 2,3 (BACTERIAL VAGINOSIS ASSOCIATED BACTERIA 2, 3); MOBILUNCUS SPP 15.096 Abnormal [facility] BVAB 2,3 (BACTERIAL VAGINOSIS ASSOCIATED BACTERIA 2, 3); MOBILUNCUS SPP Detected Abnormal [facility] DIANE ALBICANS, PARAPSILOSIS, TROPICALIS 0 [facility] DIANE ALBICANS, PARAPSILOSIS, TROPICALIS Not detected [facility] DIANE GLABRATA 0 [facility] DIANE GLABRATA Not detected [facility]ANE [facility]I [facility] KRUSEI Not detected [facility] CHLAMYDIA TRACHOMATIS 0 [facility] Healthcare CHLAMYDIA TRACHOMATIS Not detected [facility] Healthcare DFR (A1, A5), SUL (1,2) 0 PPM [facility] Healthcare DFR (A1, A5), SUL (1,2) Not detected [facility] ERMB, C; MEFA 14.773 Abnormal PPM [facility] Health care ERMB, C; MEFA Detected Abnormal [facility] care GARDNERELLA VAGINALIS 0 [facility] GARDNERELLA VAGINALIS Not detected [facility] Interpretation and review of laboratory results Abnormal [facility] Healthca re MEGASPHAERA (TYPES 1, 2) 0 [facility] MEGASPHAERA (TYPES 1, 2) Not detected [facility] MYCOPLASMA GENITALIUM 0 [facility] MYCOPLASMA GENITALIUM Not detected [facility] NEISSERIA GONORRHOEAE 0 [facility] NEISSERIA GONORRHOEAE Not detected [facility] TET B, TET M 18.414 Abnormal PPM [facility] Healthc are TET B, TET M Detected Abnormal [facility] TRICHOMONAS VAGINALIS 0 [facility] TRICHOMONAS VAGINALIS Not detected [facility] Unlisted Lab Teston 11-13-19 24 Unlisted lab test see scanned report [facility] [place][note 2] System Urinalysis macro (dipstick) panel (U)on 11-12-2023 Bilirubin, UA Negative Negative - 4(70) +++ mg/dL [facility] Blood, UA Negative Negative - 50 Manny/mcL [facility] Clarity, UA Clear [facility] re Color, UA Yellow [facility] Glucose, UA Negative Negative - 1999(110) ++++ mg/dL [facility] Interpretation and review of laboratory results Normal [facility] Ketones, UA Negative Negative - 160(16) ++++ mg/dL [facility] Leukocytes, UA Negative Negative - 500+++ Luli/mcL [facility] Nitrite, UA Negative Negative - Positive [facility] pH, UA 6.0 5 - 9 [facility] Protein, UA Negative Negative - 1999(20) ++++ mg/dL [facility] Spec Grav, UA 1.020 1 - 1.03 [facility] Urobilinogen, UA 1.0 0.2 - 12 mg/dL [facility] HCG ( test) Marcela d Ql (U)Ordered By: Karan Romero on 03-19-2023 HCG ( test) Ql (U) Negative [facility] HCG,Urineon 03-19-2023 Beta HCG ( test) Ql (U) Negative Normal [facility] Comment on above: Result Comment: PERF ORMED BY: [facility] [address] [id number] PATHOLOGIST [employer]AUT[employer] TEACHER JOYCE ACHARYA M.D. Performed By: #### U HCG #### [facility] [address] [id number] [facility] 03-19-2023 L - -------- Specimen: [id number] Received: 03/19/23 Status: HEMANT Melissa Num: [id number] Spec Type: Surgical Subm Dr: Karan Romero MD Tissues: A Duodenum - Biopsy (DUODENAL BX) B Esophagus Biopsy (ESOPHAGEAL) Procedures: HE/4, Gross/Micro L4/2 -------- Age/ Patient Sex Location Account Attending Physician -------- JossjuvenalVy 32/F [id number] Karan Romero MD -------- SPEC NUM: [id number] RECD: 03/19/23 STATUS: HEMANT JOHNSTON NUM: [id number] ASAD: 03/19/237765 [facility] DR: Karan Romero MD ENTERED: 03/19/[address]: MERE TYPE: Surgical DEPT: S ORDERED: [...] in one cassette labeled B1. -------- Specimen: [id number] Received: 03/19/23 Status: HEMANT Johnston Num: [id number] Spec Type: Surgical Subm Dr: Karan Romero MD Tissues: A Duodenum - Biopsy (DUODENAL BX) B Esophagus Biopsy (ESOPHAGEAL) Procedures: /, Gross/Micro L4/2 -------- Patient: Vy Mckeon [id number] (Continued) -------- Specimen: [id number] Received: 03/19/23 (Continued) Signed (signature on file) Doris Reynolds MD 03/20/23 1117 -------- Specimen: [id number] Received: 03/19/23 Status: HEMANT Johnston Num: [id number] Spec Type: Surgical Subm Dr: Karan Romero MD Tissues: A Duodenum - Biopsy (DUODENAL BX) B Esophagus Biopsy (ESOPHAGEAL) Procedures: HE/4, Gross/Micro L4/2 -------- Patient: Vy Mckeon Josephine [id number] (Continued) -------- Specimen: [id number] Received: 03/19/23 (Continued) Microscopic Description A. Two with H E stained material have been examined. The microscopic findings support the above pathologic diagnosis. B. Two with H E stained material have been examined. The microscopic findings support the above pathologic diagnosis. CPT Codes 85215 x 2 -------- -------- Specimen: [id number] Received: 03/19/23 Status: HEMANT Johnston Num: [id number] Spec Type: Surgical Subm Dr: Karan Romero MD Tissues: A Duodenum - Biopsy (DUODENAL BX) B Esophagus Biopsy (ESOPHAGEAL) Procedures: HE/4, Gross/Micro L4/2 -------- Patient: MikeVy J [id number] (Continued) -------- Signed (signature on file) Doris Reynolds MD 03/20/23 1117 [facility] CBC AUTO DIFFon 02-09-2023 BASO # 0.0 103/ul Normal 0.0-0.1 [facility] Comment on above: Performed By: #### C BC ####[facility] [address] [id number] Branham Basophils/100 WBC (Bld) 0.3 % Normal 0.2-2.0 [facility] Comment on above: Performed By: #### C BC ####[facility] [address] [place], [place] [address]UwBryant Branham EO # 0.2 103/ul Normal 0.0-0.7 [facility] Comment on above: Performed By: #### C BC ####[facility] [address] [address]DrBryant Branham Eosinophils/100 WBC (Bld) 1.7 % Normal 0.9-7.0 [facility] Comment on above: Performed By: #### C BC ####[facility] [address] [address]Dr. Zafar Branham Erythrocyte distribution width (RBC) [Ratio] 13.9 % Normal 11.0-15.0 [facility] Comment on above: Performed By: #### C BC ####[facility] [address] [address]Dr. Zafar Branham Hematocrit (Bld) [Volume fraction] 41.0 % Normal 36.0-48.0 [facility] Comment on above: Performed By: #### C BC ####[facility] [address] [place], [place] [address]Dr. Zafar Branham Hemoglobin (Bld) [Mass/Vol] 13.4 g/dL Normal 12.0-16.0 [facility] Comment on above: Performed By: #### C BC ####[facility] [address] [place], [place] [address]Dr. Zafar Branham IG # 0.03 10e3/ul Normal 0.00-0.03 [facility] Comment on above: Performed By: #### C BC ####[facility] [address] [place], [place] [address]Dr. Zafar Branham IG % 0.3 % Normal 0.0-0.5 [facility] Comment on above: Performed By: #### C BC ####[facility] [address] [place], [place] [address]Dr. Zafar Branham LYMPH # 1.4 103/ul Normal 1.2-3.8 [facility] Comment on above: Performed By: #### C BC ####[facility] [address] [place], [place] [address]Dr. Zafar Branham Lymphocytes/100 WBC (Bld) 14.8 % Critically low 20.5-60.0 [facility] Comment on above: Performed By: #### C BC ####[facility] [address] [place], [place] [address]Dr. Zafar Branham MANUAL DIFF REQ NO Normal [facility] Comment on above: Performed By: #### C BC ####[facility] [address] [phone]. Zafar Yonas MCH (RBC) [Entitic mass] 28.8 pg Normal 26.7-34.0 [facility] Comment on above: Performed By: #### C BC ####[facility] [address] [address]Dr. Zafar Yonas MCHC (RBC) [Mass/Vol] 32.7 g/dL Normal 29.9-35.2 [facility] Comment on above: Performed By: #### C BC ####[facility] [address] [address]Dr. Zafar Branham MCV (RBC) [Entitic vol] 88.0 fL Normal 81.0-99.0 [facility] Comment on above: Performed By: #### C BC ####[facility] [address] [place], [place] [address]Dr. Zafar Branham MONO # 0.4 103/ul Normal 0.3-0.8 [facility] Comment on above: Performed By: #### C BC ####[facility] [address] [place], [place] [address]Dr. Zafar Branham Monocytes/100 WBC (Bld) 3.9 % Normal 1.7-12.0 [facility] Comment on above: Performed By: #### C BC ####[facility] [address] [place], [place] [address]Dr. Zafar Branham NEUT # 7.2 103/ul Critically high 1.4-6.5 [facility] Comment on above: Performed By: #### C BC ####[facility] [address] [place], [place] [address]DrBryant Branham Neutrophils/100 WBC (Bld) 79.0 % Critically high 43.0-75.0 [facility] Comment on above: Performed By: #### C BC ####[facility] [address] [place], [place] [address]DrBryant Branham Platelet mean volume (Bld) [Entitic vol] 10.7 fL Normal 9.5-13.5 [facility] Comment on above: Performed By: #### C BC ####[facility] [address] [address]Dr. Zafar Branham PLT 353 103/ul Normal 150-450 [facility] Comment on above: Performed By: #### C BC ####[facility] [address] [address]Dr. Zafar Branham RBC 4.66 106/ul Normal 4.20-5.40 [facility] Comment on above: Performed By: #### C BC ####[facility] [address] [address]Dr. Zafar Branham WBC 9.2 103/ul Normal 4.0-11.0 [facility] Comment on above: Performed By: #### C BC ####[facility] [address] [address]Dr. Zafar Branham CRPon 02-09-2023 CRP 1.0 mg/dL Normal <=1.0 [facility] Comment on above: Performed By: #### C RP, CMP, TSH, LIPID ####[facility] [address] [address]Dr. Zafar Branham FREE T4on 02-09-2023 Free T4 [Mass/Vol] 1.01 ng/dL Normal 0.76-1.46 [facility] Comment on above: Performed By: #### F T4 #### [facility] [address] [place], [place] [address] Dr. Zafar Branham LIPID PROFILEon 02-09-2023 CHOL-HDL RATIO NORM SEE BELOW Normal [facility] Comment on above: Result Comment: 3.3 - 4.4 LOW RISK 4.4 - 7.1 AVERAGE RISK 7.1 - 11.0 MODERATE RISK >11.0 HIGH RISK Performed By: #### C RP, CMP, TSH, LIPID ####[facility] [address] [address]DrBryant Branham Cholesterol [Mass/Vol] 230 mg/dL Critically high <=200 [facility] Comment on above: Performed By: #### C RP, CMP, TSH, LIPID ####[facility] [address] [address]Dr. Zafar Branham Cholesterol in HDL [Mass/Vol] 71 mg/dL Critically high 40-60 [facility] Comment on above: Performed By: #### C RP, CMP, TSH, LIPID ####[facility] [address] [address]Dr. Zafar Branham Cholesterol in LDL [Mass/Vol] 139.4 mg/dL Normal [facility] Comment on above: Performed By: #### C RP, CMP, TSH, LIPID ####[facility] [address] [address]Dr. Zafar Branham Cholesterol.total/C holesterol in HDL [Mass ratio] 3.2 {ratio} Normal [facility] Comment on above: Performed By: #### C RP, CMP, TSH, LIPID ####[facility] [address] [address]Dr. Zafar Branham HDL NORMAL > or = 60 mg/dl - LO W CARDIOVASCULAR RISK <40 mg/dl - HIGH CARDIOVASCULAR RISK Normal [facility] Comment on above: Performed By: #### C RP, CMP, TSH, LIPID ####[facility] [address] [address]Dr. Zafar Branham LDL CALC NORMAL SEE BELOW Normal [facility] Comment on above: Result Comment: <100 mg/dl OPTIMAL 100 - 129 mg/dl NEAR OR ABOVE OPTIMAL 130 - 159 mg/dl BORDERLINE HIGH 160 - 189 mg/dl HIGH >190 mg/dl VERY HIGH Performed By: #### C RP, CMP, TSH, LIPID ####[facility] [address] [id number]. Zafar Branham Triglyceride [Mass/Vol] 98 mg/dL Normal <=150 [facility] Comment on above: Performed By: #### C RP, CMP, TSH, LIPID ####[facility] [address] [address]Dr. Zafar Branham VLDL CALC 19.6 mg/dL Normal [facility] Comment on above: Performed By: #### C RP, CMP, TSH, LIPID ####[facility] [address] [place], [place] [address]LtDr. Zafar Branham URon 02-09-2023 , QUAL Negative Normal NEGATIVE [facility] Comment on above: Performed By: #### U AMIC, PREGU #### [facility] [address] [address] [address] Zafar Branham PROF 14(COMP METB)on 023 Albumin [Mass/Vol] 4.0 g/dL Normal 3.4-5.0 [facility] Comment on above: Performed By: #### C RP, CMP, TSH, LIPID #### [facility] [address] [address] [address] Zafar Branham Albumin/Globulin [Mass ratio] 0.9 {ratio} Normal [facility] Comment on above: Performed By: #### C RP, CMP, TSH, LIPID #### [facility] [address] [address] [address] Zafar Branham ALP [Catalytic activity/Vol] 94 U/L Normal 46-116 [facility] Comment on above: Performed By: #### C RP, CMP, TSH, LIPID #### [facility] [address] [address] [address] Zafar Branham ALT [Catalytic activity/Vol] 30 U/L Normal 14-59 [facility] Comment on above: Performed By: #### C RP, CMP, TSH, LIPID #### [facility] [address] [address] [address] Zafar Branham Anion gap [Moles/Vol] 13.6 mmol/L Normal [facility] Comment on above: Performed By: #### C RP, CMP, TSH, LIPID #### [facility] [address] [address] [address] Zafar Branham AST [Catalytic activity/Vol] 23 U/L Normal 15-37 [facility] Comment on above: Performed By: #### C RP, CMP, TSH, LIPID #### [facility] [address] [address] [address] Zafar Branham Bilirubin [Mass/Vol] 0.3 mg/dL Normal 0.2-1.0 [facility] Comment on above: Performed By: #### C RP, CMP, TSH, LIPID #### [facility] [address] [address] [address] Zafar Branham Calcium [Mass/Vol] 9.7 mg/dL Normal 8.5-10.1 [facility] Comment on above: Performed By: #### C RP, CMP, TSH, LIPID #### [facility] [address] [address] [address] Zafar Branham Chloride [Moles/Vol] 100 mmol/L Normal 98-107 [facility] Comment on above: Performed By: #### C RP, CMP, TSH, LIPID #### [facility] [address] [place] [address] Dr. Zafar Branham CO2 [Moles/Vol] 26.6 mmol/L Normal 21.0-32.0 [facility] Comment on above: Performed By: #### C RP, CMP, TSH, LIPID #### [facility] [address] [address] [address] Zafar Branham Creatinine [Mass/Vol] 1.00 mg/dL Normal 0.55-1.02 [facility] Comment on above: Performed By: #### C RP, CMP, TSH, LIPID #### [facility] [address] [place] [address] Dr. Zafar Branham EGFR-AF SAMMARINESE >60 Normal >=60 [facility] Comment on above: Performed By: #### C RP, CMP, TSH, LIPID #### [facility] [address] [place] [address] Dr. Zafar Branham EGFR-NON AF SAMMARINESE >60 Normal >=60 [facility] Comment on above: Performed By: #### C RP, CMP, TSH, LIPID #### [facility] [address] [address] [address] Zafar Branham Globulin (S) [Mass/Vol] 4.5 g/dL Normal [facility] Comment on above: Performed By: #### C RP, CMP, TSH, LIPID #### [facility] [address] [address] [address] Zafar Branham Glucose [Mass/Vol] 93 mg/dL Normal 74-106 [facility] Comment on above: Performed By: #### C RP, CMP, TSH, LIPID #### [facility] [address] [address] [address] Zafar Branham Potassium [Moles/Vol] 4.2 mmol/L Normal 3.5-5.1 [facility] Comment on above: Performed By: #### C RP, CMP, TSH, LIPID #### [facility] [address] [address] [address] Zafar Branham Protein [Mass/Vol] 8.5 g/dL Critically high 6.4-8.[address] [facility] Comment on above: Performed By: #### C RP, CMP, TSH, LIPID #### [facility] [address] [address] [address] Zafar Branham Sodium [Moles/Vol] 136 mmol/L Normal 136-145 [facility] Comment on above: Performed By: #### C RP, CMP, TSH, LIPID #### [facility] [address] [address] [address] Zafar Branham Urea nitrogen [Mass/Vol] 10.0 mg/dL Normal 7.0-18.0 [facility] Comment on above: Performed By: #### C RP, CMP, TSH, LIPID #### [facility] [address] [place] [address] Dr. Zafar Branham Urea nitrogen/Creatinine [Mass ratio] 10.0 mg/mg Normal [facility] Comment on above: Performed By: #### C RP, CMP, TSH, LIPID #### [facility] [address] [place] [address] Dr. Zafar Branham SED RATE [facility] 2022 SED RATE 49 mm/hr Critically high <=20 [facility] Comment on above: Performed By: #### S EDR ####[facility] [address] [address]Dr. Zafar Branham TSHon 02-09-2023 TSH 0.590 uIU/mL Normal 0.358-3.740 [facility] Comment on above: Performed By: #### C RP, CMP, TSH, LIPID #### [facility] [address] [place] [address] Dr. Zafar Branham UA RANDOM W/MICROSCOPICon BACTERIA NONE SEEN Normal NONE SEEN [facility] Comment on above: Performed By: #### U AMIC, PREGU #### [facility] [address] [place] [address] Dr. Zafar Branham Bilirubin Ql (U) Negative Normal NEGATIVE [facility] Comment on above: Performed By: #### U AMIC, PREGU #### [facility] [address] [place] [address] Dr. Zafar Branham CAST NONE SEEN Normal NONE SEEN [facility] Comment on above: Performed By: #### U AMIC, PREGU #### [facility] [address] [place] [address] Dr. Zafar Branham Clarity (U) CLEAR Normal CLEAR [facility] Comment on above: Performed By: #### U AMIC, PREGU #### [facility] [address] [place] [address] Dr. Zafar Branham Color (U) LT. YELLOW Normal YELLOW [facility] Comment on above: Performed By: #### U AMIC, PREGU #### [facility] [address] [place] [address] Dr. Zafar Branham Crystals LM Nom (Urine sed) NONE SEEN Normal NONE SEEN [facility] Comment on above: Performed By: #### U AMIC, PREGU #### [facility] [address] [place] [address] Dr. Zafar Branham Epithelial cells LM Ql (Urine sed) FEW Abnormal NONE SEEN /RARE [facility] Comment on above: Performed By: #### U AMIC, PREGU #### [facility] [address] [place] [address] Dr. Zafar Branham Glucose Ql (U) Negative Normal NEGATIVE [facility] Comment on above: Performed By: #### U AMIC, PREGU #### [facility] [address] [address] [address] Zafar Branham Hemoglobin Ql (U) SMALL Abnormal NEGATIVE [facility] Comment on above: Performed By: #### U AMIC, PREGU #### [facility] [address] [address] [address] Zafar Branham Ketones Ql (U) Negative Normal NEGATIVE [facility] Comment on above: Performed By: #### U AMIC, PREGU #### [facility] [address] [address] [address] Zafar Branham LEUKOCYTES Negative Normal NEGATIVE [facility] Comment on above: Performed By: #### U AMIC, PREGU #### [facility] [address] [place] [address] Dr. Zafar Branham MUCOUS NONE SEEN Normal NONE SEEN [facility] Comment on above: Performed By: #### U AMIC, PREGU #### [facility] [address] [address] [address] Zafar Branham Nitrite Ql (U) Negative Normal NEGATIVE [facility] Comment on above: Performed By: #### U AMIC, PREGU #### [facility] [address] [address] [address] Zafar Branham pH (U) 6.0 [pH] Normal 5-9 [facility] Comment on above: Performed By: #### U AMIC, PREGU #### [facility] [address] [address] [address] Zafar Branham RBC 0-2 Normal 0-2 [facility] Comment on above: Performed By: #### U AMIC, PREGU #### [facility] [address] [address] [address] Zafar Branham SPEC GRAVITY <=1.005 Abnormal 1.005-<=1.025 [facility] Comment on above: Performed By: #### U AMIC, PREGU #### [facility] [address] [address] [address] Zafar Branham UA PROTEIN Negative Normal NEGATIVE/ TRACE [facility] Comment on above: Performed By: #### U AMIC, PREGU #### [facility] [address] [address] [address] Zafar Branham Urobilinogen Qn (U) 0.2 {Ramy'U}/dL Normal 0.2 - 1. 0 [facility] Comment on above: Performed By: #### U AMIC, PREGU #### [facility] [address] [address] [address] Zafar Branham WBC NONE SEEN Normal NONE SEEN [facility] Comment on above: Performed By: #### U AMIC, PREGU #### [facility] [address] [address] [address] Zafar Branham XR knee RT 4V*on 02-07-2023 XR knee RT 4V* [facility] [employer] Other XR knee RT 4V* [facility] [employer] Other XR knee RT 4V* [address] [place] [address] [employer] Other XR knee RT 4V* [place] [address] No rt [employer] Other XR knee RT 4V* XRay Report [employer] Other XR knee RT 4V* Signed [employer] Other XR knee RT 4V* Patient: Vy Mckeon MR#: [id number] [employer] Other XR knee RT 4V* 5 [employer] Other XR knee RT 4V* : 1990 Acct:[id number] [employer] Other XR knee RT 4V* Age/Sex: 32 / F ADM Date: 02/07/23 [employer] Other XR knee RT 4V* Loc: XDUCLY Room: Type: REG CLI [employer] Other XR knee RT 4V* Attending Dr: Shayla DENNEY [employer] Other XR knee RT 4V* Copies to: JUMANA Christianson [employer] Other XR knee RT 4V* Ordering Provider: JUMANA Christianson [employer] Other XR knee RT 4V* Date of Service: 02/07/23 [employer] Other XR knee RT 4V* XR/XR knee RT 4V*: RIGHT KNEE PAIN [employer] Other XR knee RT 4V* RIGHT KNEE - 4 views [employer] Other XR knee RT 4V* COMPARISON: None Nort [employer] Other XR knee RT 4V* CLINICAL DATA: Patient fell last night and landed on right anterior knee. Pain, swelling and [employer] Other XR knee RT 4V* abrasions. [employer] Other XR knee RT 4V* AP, lateral and both oblique views were obtained. There is no fracture or dislocation. There is no [employer] Other XR knee RT 4V* significant knee effusion or focal soft tissue swelling. [employer] Other XR knee RT 4V* XR/XR knee RT 4V* [employer] Other XR knee RT 4V* IMPRESSION: [employer] Other XR knee RT 4V* NO ACUTE BONY INJURY. [employer] Other XR knee RT 4V* Impression dictated by: Rama Garsia M.D.02/07/2023 10:01 AM [employer] Other XR knee RT 4V* Dictation Location: [employer] Other XR knee RT 4V* Transcribed By: MILKA 02/07/23 1001 [employer] Other XR knee RT 4V* Dictated By: Rama Garsia MD 02/07/23 1000 [employer] Other XR knee RT 4V* Signed By: [employer] Other XR knee RT 4V* 02/07/23 1001 [employer] Other XR knee RT 4V* [facility] [place] [address] [place] [address] XRay Report Signed Patient: Vy Mckeon MR#: [id number] 5 : 1990 Acct:[id number] Age/Sex: 32 / F ADM Date: 02/07/23 Loc: XDUCLY Room: Type: [facility] Attending Dr: Shayla DENNEY Copies [...] Rama Garsia M.D.02/07/2023 10:01 AM Dictation Location: [employer] Transcribed By: IMLKA 02/07/23 1001 Dictated By: Rama Garsia MD 02/07/23 1000 Signed By: 02/07/23 1001 [facility] XR HIPS KARELY 5V W PELVISon XR [...] JO-ANN CHACON Date: 2022-12-17 13:04 Normal [facility] PREG QUANT HCGon 07-04-2022 HCG QUANT 1 mIU/mL Normal [facility] Comment on above: Performed By: #### P REGQNT #### [facility] [address] [place] [address] Dr. Zafar Branham HCG RANGE SEE BELOW Normal [facility] Comment on above: Result Comment: 5-50 0.2-1 WEEK 50-500 1-2 WEEKS 100-5,000 2-3 WEEKS 500-10,000 3-4 WEEKS 1,000-50,000 4-5 WEEKS 10,000-100,000 5-6 WEEKS 15,000-200,000 6-8 WEEKS 10,000-100,000 2-3 MONTHS Performed By: #### P REGQNT #### [facility] [address] [place] [address] Dr. Zafar Branham PREG QUANT HCGon 06-08-2022 HCG QUANT 16 mIU/mL Normal [facility] Comment on above: Performed By: #### P REGQNT ####[facility] [address] [place], [place] [address]Dr. Zafar Branham HCG RANGE SEE BELOW Normal [facility] Comment on above: Result Comment: 5-50 0.2-1 WEEK 50-500 1-2 WEEKS 100-5,000 2-3 WEEKS 500-10,000 3-4 WEEKS 1,000-50,000 4-5 WEEKS 10,000-100,000 5-6 WEEKS 15,000-200,000 6-8 WEEKS 10,000-100,000 2-3 MONTHS Performed By: #### P REGQNT ####[facility] [address] [place], [place] [address]Dr. Zafar Branham CBC AUTO DIFFon 05-23-2022 BASO # 0.0 103/ul Normal 0.0-0.1 [facility] Comment on above: Performed By: #### C BC #### [facility] [address] [place] [address] Dr. Zafar Branham Basophils/100 WBC (Bld) 0.6 % Normal 0.2-2.0 [facility] Comment on above: Performed By: #### C BC #### [facility] [address] [place] [address] Dr. Zafar Branham EO # 0.3 103/ul Normal 0.0-0.7 [facility] Comment on above: Performed By: #### C BC #### [facility] [address] [place] [address] Dr. Zafar Branham Eosinophils/100 WBC (Bld) 6.5 % Normal 0.9-7.0 [facility] Comment on above: Performed By: #### C BC #### [facility] [address] [place] [address] Dr. Zafar Branham Erythrocyte distribution width (RBC) [Ratio] 12.5 % Normal 11.0-15.0 [facility] Comment on above: Performed By: #### C BC #### [facility] [address] [place] [address] Dr. Zafar Branham Hematocrit (Bld) [Volume fraction] 37.2 % Normal 36.0-48.0 [facility] Comment on above: Performed By: #### C BC #### [facility] [address] [place] [address] Dr. Zafar Branham Hemoglobin (Bld) [Mass/Vol] 12.1 g/dL Normal 12.0-16.0 [facility] Comment on above: Performed By: #### C BC #### [facility] [address] [place] [address] Dr. Zafar Branham IG # 0.01 10e3/ul Normal 0.00-0.03 [facility] Comment on above: Performed By: #### C BC #### [facility] [address] [place] [address] Dr. Zafar Branham IG % 0.2 % Normal 0.0-0.5 [facility] Comment on above: Performed By: #### C BC #### [facility] [address] [place] [address] Dr. Zafar Branham LYMPH # 1.5 103/ul Normal 1.2-3.8 [facility] Comment on above: Performed By: #### C BC #### [facility] [address] [place] [address] Dr. Zafar Branham Lymphocytes/100 WBC (Bld) 29.8 % Normal 20.5-60.0 [facility] Comment on above: Performed By: #### C BC #### [facility] [address] [place] [address] Dr. Zafar Branham MANUAL DIFF REQ NO Normal [facility] Comment on above: Performed By: #### C BC #### [facility] [address] [place] [address] Dr. Zafar Branham MCH (RBC) [Entitic mass] 29.1 pg Normal 26.7-34.0 [facility] Comment on above: Performed By: #### C BC #### [facility] [address] [place] [address] Dr. Zafar Branham MCHC (RBC) [Mass/Vol] 32.5 g/dL Normal 29.9-35.2 [facility] Comment on above: Performed By: #### C BC #### [facility] [address] [place] [address] Dr. Zafar Branham MCV (RBC) [Entitic vol] 89.4 fL Normal 81.0-99.0 [facility] Comment on above: Performed By: #### C BC #### [facility] [address] [place] [address] Dr. Zafar Branham MONO # 0.4 103/ul Normal 0.3-0.8 [facility] Comment on above: Performed By: #### C BC #### [facility] [address] [place] [address] Dr. Zafar Branham Monocytes/100 WBC (Bld) 7.9 % Normal 1.7-12.0 [facility] Comment on above: Performed By: #### C BC #### [facility] [address] [place] [address] Dr. Zafar Branham NEUT # 2.7 103/ul Normal 1.4-6.5 [facility] Comment on above: Performed By: #### C BC #### [facility] [address] [place] [address] Dr. Zafar Branham Neutrophils/100 WBC (Bld) 55.0 % Normal 43.0-75.0 [facility] Comment on above: Performed By: #### C BC #### [facility] [address] [place] [address] Dr. Zafar Branham Platelet mean volume (Bld) [Entitic vol] 10.0 fL Normal 9.5-13.5 [facility] Comment on above: Performed By: #### C BC #### [facility] [address] [place] [address] Dr. Zafar Branham PLT 229 103/ul Normal 150-450 [facility] Comment on above: Performed By: #### C BC #### [facility] [address] [place] [address] Dr. Zafar Branham RBC 4.16 106/ul Critically low 4.20-5.40 [facility] Comment on above: Performed By: #### C BC #### [facility] [address] [place] [address] Dr. Zafar Branham WBC 5.0 103/ul Normal 4.0-11.0 [facility] Comment on above: Performed By: #### C BC #### [facility] [address] [place] [address] Dr. Zafar Branham TYPE AND SCREENon 05-23-2022 TYPE AND SCREEN Negative Normal [facility] Comment on above: Performed By: #### T NS ####[facility] [id number] [address]Dr. Zafar Branham Covid-19 PCR (CVDTBH)on 05-01 SARS-CoV-2 (COVID-19) RNA MANOLO+probe Ql (Unsp spec) Not detected Normal NOT DETECTED [facility] Comment on above: Result Comment: This test is not yet approved or cleared by the [place] FDA. When there are no FDA-approved or cleared tests available, and other criteria are met, FDA can make tests available under an emergency access mechanism called an Emergency Use Authorization (EUA). The EUA for this test is supported by the Parts Department Manager of Health and Human Service's (HHS's) declaration [...] consistent with SARS-CoV-2. Performed By: #### C [facility] #### [facility] [address] [place] [address] Dr. Zafar Branham US PREG TVon 05-18-2022 [...] BOBBI SIMONS Date: 2022-05-18 19:25 Normal [facility] US PREG TVon 05-03-2022 US PREG [...] BOBBI SIMONS Date: 2022-05-03 16:32 Normal [facility] Chlamydia/GC DNA, TPon 05-05 Chlamydia Probe, TP Negative Normal NEG [facility] Comment on above: Result Comment: [...] target. Performed By: #### C YTCGP #### [employer] [address] [place] [address] Patient Care Assistant: King Boone MD Gonorrhea Probe, TP Negative Normal NEG [facility] Comment on above: Result Comment: [...] target. Performed By: #### C YTCGP #### [facility] [address] [place] [address] Patient Care Assistant: King Boone MD HPV DNA High Riskon 05-05-20 20 HPV Interp [facility] Comment on above: Result Comment: This [...] purposes. Performed By: #### H PVH #### [address] [address] Patient Care Assistant: King Boone MD HPV Type 16 Not Detected [facility] Comment on above: Performed By: #### H PVH #### [address] [address] Patient Care Assistant: King Boone MD HPV Type 18 Not Detected [facility] Comment on above: Performed By: #### H PVH #### [address] [address] Patient Care Assistant: King Boone MD Other High Risk HPV Not Detected [facility] Comment on above: Performed By: #### H PVH #### [facility] [employer] [address] [place] [address] Patient Care Assistant: King Boone MD HPV Sample .THIN PREP [facility] Comment on above: Performed By: #### H PVH #### [facility] [employer] [address] [place] [address] Patient Care Assistant: King Boone MD Source .ENDOCERVIX Normal [facility] Comment on above: Performed By: #### H PVH #### [facility] [employer] [facility] [place] [address] Patient Care Assistant: King Boone MD Otheron 05-04-2020 Direct Exam Negative [place] VAGINITIS DNA PROBEon 2019 Direct Exam Positive Abnormal [place] Direct Exam Method of testing is a DNA probe intended for detection and identification of Diane species, Gardnerella vaginalis, and Trichomonas vaginalis nucleic acid in vaginal fluid specimens from patients with symptoms of vaginitis/vaginosis. [place] Interpretation and review of laboratory results Abnormal [place] Special Requests NOT REPORTED [place] Specimen Description .VAGINAL SWAB [place] Vaginitis DNA Probeon 2019 Vaginitis DNA [...] of vaginitis/vaginosis. Report Status FINAL 05/04/2020 Normal [facility] Comment on above: Performed By: #### V AGDNA #### [facility] [employer] [address] [place] [address] Patient Care Assistant: King Boone MD Cytologyon 05-03-2020 Cytology (NOTE) INTERPRETATION Endocervical material, (Thin prep vial, Imaging-assisted review): Specimen Adequacy: Satisfactory for evaluation. - Endocervical/transfor mation zone component present. Descriptive Diagnosis: Negative for intraepithelial lesion or malignancy. Shift in ray suggestive of bacterial vaginosis. Comments: High Risk HPV testing was ordered. Senior Sas Programmer: JAYLIN Higgins(ASCP) Electronically Signed Out ana/05/07/2020 Procedure/Addendum [...] Patient Name: VY MCKEON [facility] Rec: [id number] Path Number: [id number] [facility]AT[facility] [address] [place] [id number] [facility] Comment on above: Performed By: #### P PPVP #### [facility] [address] [place] [address] Patient Care Assistant: King Boone MD Vital Signs Date Time Vital Sign Value Performing Clinician Facility 01-21-2024 11:59-0400 Body height 170.2 cm Ana Peoples MD Work Phone: [facility] 01-21-2024 11:59-0400 Body mass index (BMI) [Ratio] 30.07 kg/m2 Ana Peoples MD Work Phone: [facility] 01-21-2024 11:59-0400 Body weight 87.1 kg Ana Peoples MD Work Phone: [facility] 01-21-2024 11:59-0400 Diastolic blood pressure 75 mm[Hg] Ana Peoples MD Work Phone: [facility] 01-21-2024 11:59-0400 Heart rate 108 /min Ana Peoples MD Work Phone: [facility] 01-21-2024 11:59-0400 Systolic blood pressure 125 mm[Hg] Ana Peoples MD Work Phone: [facility] 01-21-2024 11:02-0400 Body height 170.2 cm Ana Peoples MD Work Phone: [facility] 01-21-2024 11:02-0400 Body mass index (BMI) [Ratio] 30.07 kg/m2 Ana Peoples MD Work Phone: [facility] 01-21-2024 11:02-0400 Body weight 87.09 kg Ana Peoples MD Work Phone: [facility] 01-04-2024 14:31-0400 Body temperature 97.11 [degF] Fransico Sharp MD Work Phone: [facility] 01-04-2024 14:31-0400 Diastolic blood pressure 83 mm[Hg] Fransico Sharp MD Work Phone: [facility] 01-04-2024 14:31-0400 Heart rate 94 /min Fransico Sharp MD Work Phone: [facility] 01-04-2024 14:31-0400 Respiratory rate 20 /min Fransico Sharp MD Work Phone: [facility] 01-04-2024 14:31-0400 SaO2% (BldA) [Mass fraction] 99 % Fransico Sharp MD Work Phone: [facility] 01-04-2024 14:31-0400 Systolic blood pressure 148 mm[Hg] Fransico Sharp MD Work Phone: [facility] 12-17-2023 13:42-0400 Body height 170.2 cm Freddie Delgado INTERNET DESIGNER[employer]IED [employer]URAL [employer] Work Phone: [facility] 12-17-2023 13:42-0400 Body mass index (BMI) [Ratio] 29.47 kg/m2 Freddie Delgado INTERNET DESIGNER-CERTIFIED PROC[employer]URAL [employer] Work Phone: [facility] 12-17-2023 13:42-0400 Body temperature 98.71 [degF] Freddie Delgado INTERNET DESIGNER-CERTIFIED PROCEDURAL [employer] Work Phone: [facility] 12-17-2023 13:42-0400 Body weight 85.37 kg Freddie Delgado INTERNET DESIGNER-CERTIFIED PROCEDURAL [employer] Work Phone: [facility] 12-17-2023 13:42-0400 Diastolic blood pressure 80 mm[Hg] Freddie Delgado INTERNET DESIGNER-CERTIFIED PROCEDURAL [employer] Work Phone: [facility] 12-17-2023 13:42-0400 Heart rate 86 /min Freddie Delgado INTERNET DESIGNER-CERTIFIED PROCEDURAL CODER Work Phone: [facility] 12-17-2023 13:42-0400 SaO2% (BldA) [Mass fraction] 96 % Freddie Delgado INTERNET DESIGNER-CERTIFIED PROCEDURAL [employer]ER Work Phone: [facility] 12-17-2023 13:42-0400 Systolic blood pressure 128 mm[Hg] Freddie Delgado INTERNET DESIGNER-CERTIFIED PROCEDURAL [employer] Work Phone: [facility] 11-12-2023 13:13-0500 Body mass index (BMI) [Ratio] 28.47 kg/m2 Dionne BRAN Work Phone: [facility] 11-12-2023 13:13-0500 Body weight 82.46 kg Dionne BRAN Work Phone: [facility] 11-12-2023 13:13-0500 Diastolic blood pressure 72 mm[Hg] Dionne BRAN Work Phone: [facility] 11-12-2023 13:13-0500 Systolic blood pressure 114 mm[Hg] Dionne BRAN Work Phone: [facility] 05-29-2023 13:25-0400 Body height 170.18 cm Shayla Valle Other [employer] Other 05-29-2023 13:25-0400 Body mass index (BMI) [Ratio] 28.22 kg/m2 Shayla Caseymond Other [employer] Other 05-29-2023 13:25-0400 Body temperature 97.8 [degF] Shayla Caseymond Other [employer] Other 05-29-2023 13:25-0400 Body weight 81.74 kg Shayla Caseymond Other [employer] Other 05-29-2023 13:25-0400 Diastolic blood pressure 79 mm[Hg] Shayla Caseymond Other [employer] Other 05-29-2023 13:25-0400 Respiratory rate 18 /min Shayla Caseymond Other [employer] Other 05-29-2023 13:25-0400 SaO2% (BldA) [Mass fraction] 96 % Shayla Caseymond Other [employer] Other 05-29-2023 13:25-0400 Systolic blood pressure 127 mm[Hg] Shayla Tori Other [employer] Other 03-19-2023 14:37-0400 Diastolic blood pressure 69 mm[Hg] [employer] Shayla Valle Work Phone: [facility] 03-19-2023 14:37-0400 Heart rate 76 /min [employer] Shayla Valle Work Phone: [facility] 03-19-2023 14:37-0400 Respiratory rate 16 /min [employer] Shayla Valle Work Phone: [facility] 03-19-2023 14:37-0400 SaO2% (BldA) [Mass fraction] 96 % [employer] Shayla Valle Work Phone: [facility] 03-19-2023 14:37-0400 Systolic blood pressure 119 mm[Hg] [employer] Shayla Valle Work Phone: [facility] 03-19-2023 12:18-0400 Body height 170.18 cm [employer] Shayla Valle Work Phone: [facility] 03-19-2023 12:18-0400 Body temperature 97.9 [degF] [employer] Shayla Valle Work Phone: [facility] 03-19-2023 12:18-0400 Body weight 84.82 kg [employer] Shayla Valle Work Phone: [facility] 02-12-2023 14:30-0400 Body height 170.18 cm Yoel Jarrett Other [employer] Other 02-12-2023 14:30-0400 Body mass index (BMI) [Ratio] 30.54 kg/m2 Yoel Jarrett Other [employer] Other 02-12-2023 14:30-0400 Body weight 88.45 kg Yoel Jarrett Other [employer] Other 02-12-2023 14:30-0400 Diastolic blood pressure 80 mm[Hg] Yoel Jarrett Other [employer] Other 02-12-2023 14:30-0400 Systolic blood pressure 127 mm[Hg] Yoel Jarrett Other [employer] Other 02-07-2023 10:00-0400 Body height 170.18 cm Shayla Valle Other [employer] Other 02-07-2023 10:00-0400 Body mass index (BMI) [Ratio] 30.54 kg/m2 Shayla Valle Other [employer] Other 02-07-2023 10:00-0400 Body temperature 97.9 [degF] Shayla Valle Other [employer] Other 02-07-2023 10:00-0400 Body weight 88.45 kg Shayla Valle Other [employer] Other 02-07-2023 10:00-0400 Respiratory rate 18 /min Shayla Valle Other [employer] Other 02-07-2023 10:00-0400 SaO2% (BldA) [Mass fraction] 97 % Shayla Valle Other [employer] Other 05-03-2020 11:41-0400 BMI (Body Mass Index) 24.5 kg/m2 [facility] Work Phone: 05-03-2020 11:41-0400 Body Temperature 96.3 [degF] [facility] Work Phone: 05-03-2020 11:41-0400 Body weight 70.9 kg [facility] Work Phone: 05-03-2020 11:41-0400 BP Diastolic 80 mm[Hg] [facility] Work Phone: 05-03-2020 11:41-0400 BP Systolic 120 mm[Hg] [facility] Work Phone: 05-03-2020 11:41-0400 BSA (Body Surface Area) 1.82 m2 [facility] Work Phone: 05-03-2020 11:41-0400 Height 170.18 cm [facility] Work Phone: 05-03-2020 11:41-0400 Pulse (Heart Rate) 86 /min [facility] Work Phone: 05-03-2020 11:41-0400 Pulse Oximetry 93 % [facility] Work Phone: 05-03-2020 11:41-0400 Respiratory Rate 18 /min [facility] Work Phone: 04-08-2020 08:37-0400 BMI (Body Mass Index) 24.3 kg/m2 [facility] Work Phone: 04-08-2020 08:37-0400 Body Temperature 99 [degF] [facility] Work Phone: 04-08-2020 08:37-0400 Body weight 70.4 kg [facility] Work Phone: 04-08-2020 08:37-0400 BP Diastolic 80 mm[Hg] [facility] Work Phone: 04-08-2020 08:37-0400 BP Systolic 110 mm[Hg] [facility] Work Phone: 04-08-2020 08:37-0400 BSA (Body Surface Area) 1.82 m2 [facility] Work Phone: 04-08-2020 08:37-0400 Height 170.18 cm Sally Morejon [facility] Work Phone: 04-08-2020 08:37-0400 Pulse (Heart Rate) 82 /min Sally Morejon [facility] Work Phone: 04-08-2020 08:37-0400 Pulse Oximetry 98 % [facility]: 04-08-2020 08:37-0400 Respiratory Rate 18 /min Sally [facility] Work Phone: 03-29-2020 09:52-0400 Body height 170.18 cm Sally Morejon [facility] Work Phone: [facility] Work Phone: Comment on above: self 03-29-2020 09:52-0400 Body mass index (BMI) [Ratio] 23.5 kg/m2 Sally Morejon CERTIFIED PROCEDURAL CODER Work Phone: [facility] Work Phone: Comment on above: self 03-29-2020 09:52-0400 Body surface area Derived from formula 1.79 m2 Sally Morejon CNP Work Phone: [facility] Work Phone: Comment on above: self 03-29-2020 09:52-0400 Body weight 68.04 kg Sally Morejon CNP Work Phone: [facility] Work Phone: Comment on above: self 10-14-2019 08:30-0500 BMI (Body Mass Index) 24.1 kg/m2 [facility] Work Phone: 10-14-2019 08:30-0500 Body Temperature 98.5 [degF] [facility] Work Phone: 10-14-2019 08:30-0500 Body weight 69.76 kg [facility] Work Phone: 10-14-2019 08:30-0500 BP Diastolic 78 mm[Hg] [facility] Work Phone: 10-14-2019 08:30-0500 BP Systolic 132 mm[Hg] [facility] Work Phone: 10-14-2019 08:30-0500 BSA (Body Surface Area) 1.81 m2 [facility] Work Phone: 10-14-2019 08:30-0500 Height 170.18 cm [facility] Work Phone: 10-14-2019 08:30-0500 Pulse (Heart Rate) 88 /min [facility] Work Phone: 10-14-2019 08:30-0500 Pulse Oximetry 98 % [facility] Work Phone: 10-14-2019 08:30-0500 Respiratory Rate 18 /min [facility] Work Phone: 10-14-2019 08:30-0500 SaO2% (BldA) [Mass fraction] 98 % [facility] Work Phone: [facility] Work Phone: 09-04-2019 13:52-0500 BMI (Body Mass Index) 22.9 kg/m2 [facility] Work Phone: 09-04-2019 13:52-0500 Body Temperature 98.5 [degF] [facility] Work Phone: 09-04-2019 13:52-0500 Body weight 66.23 kg [facility] Work Phone: 09-04-2019 13:52-0500 BP Diastolic 90 mm[Hg] [facility] Work Phone: 09-04-2019 13:52-0500 BP Systolic 122 mm[Hg] [facility] Work Phone: 09-04-2019 13:52-0500 BSA (Body Surface Area) 1.77 m2 [facility] Work Phone: 09-04-2019 13:52-0500 Height 170.18 cm [facility] Work Phone: 09-04-2019 13:52-0500 Pulse (Heart Rate) 98 /min Sally [facility] Work Phone: 09-04-2019 13:52-0500 Pulse Oximetry 98 % [facility] Work Phone: 09-04-2019 13:52-0500 Respiratory Rate 18 /min [facility] Work Phone: 09-04-2019 13:52-0500 SaO2% (BldA) [Mass fraction] 98 % [facility] Work Phone: [facility] Work Phone: 08-19-2019 09:32-0500 BMI (Body Mass Index) 23.2 kg/m2 [facility] Work Phone: 08-19-2019 09:32-0500 Body Temperature 98 [degF] [facility] Work Phone: 08-19-2019 09:32-0500 Body [facility] 67.31 [facility] Work [facility]: 08-19-2019 09:32-0500 BP Diastolic 80 mm[Hg] [facility] Work Phone: 08-19-2019 09:32-0500 BP Systolic 120 mm[Hg] [facility] Work Phone: 08-19-2019 09:32-0500 BSA (Body Surface Area) 1.78 m2 [facility] Work Phone: 08-19-2019 09:32-0500 Height 170.18 cm [facility] Work Phone: 08-19-2019 09:32-0500 Pulse (Heart Rate) 90 /min [facility] Work Phone: 08-19-2019 09:32-0500 Pulse Oximetry 98 % [facility] Work Phone: 08-19-2019 09:32-0500 Respiratory Rate 18 /min [facility] Work Phone: 08-19-2019 09:32-0500 SaO2% (BldA) [Mass fraction] 98 % Sally [facility] Work Phone: [facility] Work Phone: 07-28-2019 11:31-0400 BMI (Body Mass Index) 22.7 kg/m2 [facility] Work Phone: 07-28-2019 11:31-0400 Body Temperature 98.8 [degF] [facility] Work Phone: 07-28-2019 11:31-0400 Body weight 65.77 kg [facility] Work Phone: 07-28-2019 11:31-0400 BP Diastolic 84 mm[Hg] [facility] Work Phone: 07-28-2019 11:31-0400 BP Systolic 132 mm[Hg] [facility] Work Phone: 07-28-2019 11:31-0400 BSA (Body Surface Area) 1.76 m2 [facility] Work Phone: 07-28-2019 11:31-0400 Height 170.18 cm [facility] Work Phone: 07-28-2019 11:31-0400 Pulse (Heart Rate) 65 /min [facility] Work Phone: 07-28-2019 11:31-0400 Pulse Oximetry 97 % Sally Morejon [facility] Work Phone: 07-28-2019 11:31-0400 Respiratory Rate 18 /min Sally Morejon [facility] Work Phone: 07-28-2019 11:31-0400 SaO2% (BldA) [Mass fraction] 97 % Sally Morejon [facility] Work Phone: [facility] Work Phone: Encounters Encounter Date Encounter Type Care Provider Facility Start: 03-11-2024 Telephone encounter Fransico kulkarni MD Work Phone: Plastic Surgery Comment on above: path requested Start: 03-11-2024 End: 03-11-2024 ambulatory ELIAZAR NORMA Not Available Start: 03-06-2024 End: 03-06-2024 Telemedicine consultation with [...] t Update Start: 02-22-2024 End: 02-22-2024 ambulatory USMAN GOLDBERG Facility:[facility] Start: 02-20-2024 End: 02-20-2024 ambulatory FREDDIE DELGADO Facility:[facility] Start: 02-13-2024 End: 02-15-2024 ambulatory GURJIT ROBIN [facility] Start: 02-11-2024 End: 02-11-2024 ambulatory ELIAZAR CASTANEDA Not Available Start: 01-29-2024 End: 01-29-2024 ambulatory CANDACE MORAN [facility] Start: 01-28-2024 End: 01-28-2024 ambulatory DIONNE BARNHART Not Available Start: 01-25-2024 Telephone encounter Fransico kulkarni MD Work Phone: Plastic Surgery Comment on above: Appointment Start: 01-25-2024 End: 01-26-2024 ambulatory FIDENCIO ROJAS [facility] Start: 01-23-2024 ambulatory Usman [...] Appointment Start: 01-14-2024 End: 01-14-2024 [facility]ulatory [facility] Start: 01-10-2024 Telephone encounter Historical [facility] Start: 01-09-2024 Telephone encounter Fransico kulkarni MD Work Phone: Plastic Surgery Start: 01-08-2024 End: 01-08-2024 ambulatory ELIAZAR NORMA Not Available Start: 01-04-2024 End: 01-05-2024 ambulatory Fransico Sharp MD Work Phone: Plastic Surgery Comment on above: Malignant melanoma o f skin (HCC) (Primary Dx) Start: 01-04-2024 End: 01-05-2024 Patient encounter procedure Fransico Sharp MD Work Phone: [facility] Start: 12-26-2023 End: 12-27-2023 ambulatory USMAN GOLDBERG Facility:[facility] Start: 12-21-2023 Chart abstracting Usman rincon MD Work Phone: Hematology/Oncology Start: 12-17-2023 End: 12-17-2023 ambulatory [facility] Start: 12-17-2023 End: 12-17-2023 Office outpatient visit 10 minutes [facility] INTERNET DESIGNER-CERTIFIED PROCEDURAL CODER Work Phone: [facility] Comment on above: Nausea and vomiting, unspecified vomiting type (Primary Dx); Psychophysiological insomnia Start: 12-10-2023 End: 12-10-2023 ambulatory ELIAZAR NORMA Not Available Start: 12-07-2023 Documentation procedure Chris Antonio [facility] Work Phone: Maternal- Medicine at [facility] Comment on above: Outgoing Ca ll [...] Start: 11-13-2023 Orders Only Juan Ramon Rodríguez COLLEGE SPECIALIST Mate rnal- Medicine at [facility] Comment on above: Multigravida of adva nced maternal age in second trimester; Family history of autism; Family history of mental disorder Start: 11-12-2023 Documentation procedure Chris Antonio LC Work Phone: Maternal- Medicine at [facility] Comment on above: Outgoing Ca ll [...] Not Available Start: 10-29-2023 Documentation procedure Chris BLISS Work Phone: Maternal- Medicine at [facility] Comment on above: Incoming Ca ll Start: 10-23-2023 Orders Only Angela Guzman [facility] Mat ernal- Medicine at [facility] Comment on above: Multigravida of adva nced maternal age in second trimester (Primary Dx); Family history of autism; Family history of mental disorder Start: 10-22-2023 End: 10-22-2023 ambulatory ELIAZAR CASTANEDA [facility] Start: 10-22-2023 End: 10-22-2023 Telemedicine consultation with patient Katarina Antonio [facility] Work Phone: Maternal- Medicine at [facility] Comment on above: Multigravida of adva nced maternal age in second trimester (Primary Dx); Family history of autism; Family history of mental disorder Start: 10-08-2023 End: 10-08-2023 ambulatory ELIAZAR NORMA Not Available Start: 08-30-2023 End: 08-30-2023 ambulatory ELIAZAR NORMA Not Available Start: 05-29-2023 End: 05-29-2023 ambulatory Shayla Valle Other [employer] Other Start: 05-29-2023 Office outpatient vi sit 15 minutes Shayla Valle [facility] Start: 03-19-2023 End: 03-19-2023 ambulatory NON STAFF Facility:[facility] Start: 03-19-2023 End: 03-19-2023 Admission to same day surgery center [employer] Shayla Valle Work Phone: [facility] Work Phone: Start: 03-19-2023 End: 03-19-2023 ambulatory NON STAFF [facility] Work Phone: Start: 02-12-2023 End: 02-12-2023 ambulatory Yoel Jarrett Other [employer] Other Start: 02-12-2023 Office outpatient ne w 30 minutes Yoel Jarrett [facility] Start: 02-09-2023 End: 02-10-2023 ambulatory PRADEEP COULTER Facility:[facility] Start: 02-07-2023 Office outpatient ne w 20 minutes Shayla Valle [facility] Start: 02-07-2023 End: 02-07-2023 ambulatory Shayla Valle [employer] Other Start: 02-07-2023 End: 02-07-2023 Patient encounter procedure [employer] Shayla Tori Work Phone: [facility] Work Phone: Start: 12-27-2022 ambulatory PRADEEP COULTER Facil ity:[facility] Start: 12-16-2022 End: 12-17-2022 ambulatory PRADEEP VITO JARREDAntonBELTRANLissett Facility:[facility] Start: 07-04-2022 End: 07-05-[address] ELIAZAR CASTANEDA . Facility:[facility] Start: 06-08-2022 End: 07-01-[address] ELIAZAR CASTANEDA . Facility:[facility] Start: 05-23-2022 End: 05-23-[address] ELIAZAR CASTANEDA . Facility:[facility] Start: 05-22-2022 Encounter for preprocedural laboratory examination DR ELIAZAR CASTANEDA . [facility] Start: 05-19-2022 End: 05-20-[address] ELIAZAR [...] 05-03-2020 End: 05-04-2020 Patient encounter procedure CANDACE Castellano NGOC [facility] Start: 05-03-2020 End: 05-03-2020 Subsequent hospital visit by physician ARMANI SOLITARIO [facility] Start: 04-08-2020 End: 04-08-2020 ambulatory Linnea Luz Work Phone: [facility] Work Phone: Start: [...] 10-14-2019 Established patient Bobbi Colon Work Phone: [facility] Work Phone: Start: 09-04-2019 End: 09-04-2019 Established patient Bobbi Colon Work Phone: [facility] Work Phone: Start: 08-19-2019 End: 08-19-2019 Nursing evaluation of patient and report Candace Grossman Work Phone: [facility] Work Phone: Start: 07-28-2019 End: 07-28-2019 Established patient Bobbi Cooln Work Phone: [facility] Work Phone: Start: 07-28-2019 End: 07-28-2019 New patient Candace Grossman Work Phone: [facility] Work Phone: Start: 08-13-2017 End: 08-14-2017 Ambulatory Upender Gehlot Facility:[facility] Procedures Date Procedure Procedure Detail Performing Clinician Start: 01-21-2024 Us preg uterus after 1st trimest 10/01 gestation Ana Peoples MD Work Phone: Start: 11-12-2023 Urnls dip stick/tabl et rgnt non-auto w/o micrscp Dionne BRAN Work Phone: Start: 11-12-2023 URETHRITIS/DISCHARGE PLUS VAGINITIS (HTRX) Dionne BRAN Work Phone: Start: 10-25-2023 UNLISTED LAB TEST Miriam Antonio [employer] Work Phone: Start: 09-10-2023 Adult depression scr eening assessment Katarina Paco [employer] [facility] Work Phone: Start: 03-19-2023 Esophagogastroduodenoscopy [employer] Shayla Tori Work Phone: Start: 03-01-2023 Microscopic observat ion [Identifier] in Cervix by Cyto stain Dionne BRAN Work Phone: Start: 02-07-2023 X-ray of right knee [employer] Shayla Tori Work Phone: Start: 05-03-2020 Obtaining screen pap smear Candace Grossman Work Phone: Start: 05-03-2020 Iaad ia chlamydia trachomatis CANDACE NGOC Start: 05-03-2020 Iadna diane specie s direct probe tq CANDACE GROSSMAN Start: 05-03-2020 Iadna diane specie s direct probe tq Candace Juvenal Houstonen Work Phone: Start: 05-03-2020 Microscopic observat ion [Identifier] in Cervix by Cyto stain Katarina Paco [facility] Work Phone: Start: 04-08-2020 Diast bp 80-89 mm hg Ka ra Escobar Work Phone: Start: 04-08-2020 Etonogestrel [...] no recent change in medical history Sally Fraustoer CERTIFIED PROCEDURAL CODER Work Phone: Start: 03-29-2020 Psychotherapy w/howie ent 30 minutes Emilee Sanford Work Phone: Start: 01-08-2020 Patient gave verbal consent for telehealth Sally Morejon CNP Work Phone: Start: 10-14-2019 Diast bp <80 mm hg Levi Houstonen Work Phone: Start: 10-14-2019 Psychotherapy w/howie ent [...] Syst bp lt 130 mm hg monico Ngoc Work Phone: Start: 08-19-2019 Urine test visual color cmprsn meths Candace Grossman Work Phone: Start: 07-28-2019 Alcohol consumption screening Audit Alcohol Use Disorders Identification Test ___(0-40) Candace Ngoc CNP Work Phone: Start: 07-28-2019 ANXIETY DISORDER NOS Ca ssie Jean-Pierre Start: 07-28-2019 ASTHMA Sally Tab er Start: 07-28-2019 DEPRESSION Sally Tab er Start: 07-28-2019 Diast bp 80-89 mm hg monico Grossman Work Phone: Start: 07-28-2019 History of influenza vaccination Sally Jean-Pierre Start: 07-28-2019 PSYCHIATRIC DISORDERS C gaviota Morejon [...] RSV Vaccine (1 - 1-dose 60+ series) [facility] Start: 01-02-2034 Urine microalbumin profile DTaP,Tdap,Td Vaccine (7 - Td or Tdap) [facility] Start: 03-12-2028 Screening for malign ant neoplasm of cervix HPV/Cotest [facility] Start: 03-01-2028 Screening for malign ant neoplasm of cervix [facility] Start: 01-25-2028 DTaP,Tdap and Td Vaccines (6 - Td or Tdap) DTaP,Tdap and Td Vaccines (6 - Td or Tdap) [facility] Start: 01-25-2028 Urine microalbumin profile DTaP,Tdap,Td Vaccine (2 - Td or Tdap) [facility] Start: 12-16-2024 Adult BMI Screening Adult BMI Screen ing [facility] Start: 12-16-2024 Tobacco Screening Tobacco Screening [facility] Start: 10-23-2024 End: 10-23-2024 Unlisted Lab Test Unlisted Lab Test Lab Routine Multigravida of advanced maternal age in second trimester Family history of autism Family history of mental disorder Expected: 10/23/2024 (Approximate), Expires: 10/23/2024 [facility] Work Phone: Comment on above: Expected: 10/23/2024 (Approximate), Expires: 10/23/2024 Start: 09-10-2024 Adult BMI Screening Adult BMI Screen ing [facility] Start: 09-10-2024 Depression Screening Depression Scre ening [facility] Start: 09-10-2024 Tobacco Screening Tobacco Screening [facility] Start: 03-17-2024 End: 03-17-2024 Admission to same day surgery center 03/17/2024 11:30 AM EDT Visit (SP) Office Plastic Surgery [address] [place] [address] Tana Cervantes APRN.CERTIFIED PROCEDURAL CODER [address] [place] [address] post op Plastic Surgery Comment on above: [...] 10:45 AM EDT Hospital Encounter Admitting [address] [place] [address] Fransico Sharp MD [address] [place] [address] Malignant melanoma of skin (HCC) [C43.9] Admitting Comment on above: Malignant melanoma o f skin (HCC) [C43.9] Start: 03-14-2024 End: 03-14-2024 Patient encounter procedure 03/14/2024 8:30 AM EDT Appointment Molecular Imaging [address] [id number] MELANOMA-NM LYMPH NODE IMAGING [facility] Comment on above: MELANOMA-NM LYMPH NO DE IMAGING Start: 03-07-2024 End: 03-07-2024 Anesthesia consultation 03/07/2024 1:20 PM EDT PAT Pre Anesthesia [address] [place] [address] 9, Pacc [address] [place] [address] pacc Pre Anesthesia Comment on above: pacc Start: 03-06-2024 End: 03-06-2024 Patient encounter procedure 03/06/2024 8:00 AM EDT [facility] Maternal Medicine [address] [address] [place] [address] [place] [address] Consult Maternal Medicine Comment on above: Consult Start: 02-22-2024 End: 02-22-2024 Patient encounter procedure 02/22/2024 10:45 AM EDT Appointment Radiology Pet [facility] [address] [place] [address] ct chest and stn w Radiology Pet CT Comment on above: ct chest and stn w Start: 02-20-2024 End: 02-20-2024 ambulatory 02/20/2024 3:00 PM EDT Results Only [facility] [address] [place] [address] [facility] Start: 02-20-2024 End: 01-22-2025 CBC W Auto Differential panel - Blood COMPLETE BLOOD COUNT AND DIFFERENTIAL Lab Routine Malignant melanoma of skin (HCC) Expected: 02/20/2024 (Approximate), Expires: 01/22/2025 [facility] Comment on above: Expected: 02/20/2024 (Approximate), Expires: 01/22/2025 Start: 02-20-2024 End: 01-22-2025 Comprehensive metabolic 2000 panel - Serum or Plasma COMPREHENSIVE METABOLIC PANEL Lab Routine Malignant melanoma of skin (HCC) Expected: 02/20/2024 (Approximate), Expires: 01/22/2025 [facility] Comment on above: Expected: 02/20/2024 (Approximate), Expires: 01/22/2025 Start: 02-20-2024 End: 02-21-2025 CT Chest W contrast IV CT CHEST W IVCON Radiology Routine Malignant melanoma of skin (HCC) Expected: 02/20/2024 (Approximate), Expires: 02/21/2025 [facility] Comment on above: Expected: 02/20/2024 (Approximate), Expires: 02/21/2025 Start: 02-20-2024 End: 02-21-2025 CT Neck W contrast IV CT NECK SOFT TISSUE W IVCON Radiology Routine Malignant melanoma of skin (HCC) Expected: 02/20/2024 (Approximate), Expires: 02/21/[address] [facility] Work Phone: Comment on above: Expected: 02/20/2024 (Approximate), Expires: 02/21/2025 Start: 02-20-2024 End: 01-22-2025 Lactate dehydrogenase [Enzymatic activity/volume] in Serum or Plasma LACTATE DEHYDROGENASE Lab Routine Malignant melanoma of skin (HCC) Expected: 02/20/2024 (Approximate), Expires: 01/22/2025 [facility] Comment on above: Expected: 02/20/2024 (Approximate), Expires: 01/22/2025 Start: 02-19-2024 Subsequent hospital visit by physician 02/19/2024 Hospital Encounter Surgery Center [address] [address] Fransico Sharp MD [address] [place], [place] [id number] Malignant melanoma of skin (HCC) [C43.9] Surgery [...] Start: 02-12-2024 End: 02-12-2024 Patient encounter procedure [facility] - Ul[facility] Comment on above: MELANOMA-NM LYMPH NO DE IMAGING Start: 01-14-2024 End: 01-14-2024 Telemedicine consultation with patient 01/14/2024 10:15 AM EDT Telemedicine [facility] [address] [place] [address] [address] [place] [address] Gurjit Robin MD [address] [facility] [place] [address] [facility] Start: 12-17-2023 End: 12-17-2023 Patient encounter procedure 12/17/2023 1:45 PM EDT Office Visit [facility] [address] [place] [id number] Freddie Delgado APRN-CERTIFIED PROCEDURAL CODER [address], [place] [address] [facility] Start: 12-10-2023 End: 12-10-2023 Patient encounter procedure 12/10/2023 2:20 PM EDT Routine [facility] [address] [place] [address] Eliazar Castaneda, [address] [place] [address] [facility] Start: 11-20-2023 End: 11-20-2023 Patient encounter procedure 11/20/2023 8:00 AM EST Appointment [facility] [address] [place] [id number] [facility] Start: 11-12-2023 End: 11-12-2024 US for US OB ANATOMY SINGLE W US OB CERVICAL LENGTH Imaging Routine Screening, , for anatomic survey Expected: 11/12/2023 (Approximate), Expires: 11/12/2024 [facility] Comment on above: Expected: 11/12/2023 (Approximate), Expires: 11/12/2024 Start: 10-01-2023 Behavioral Health Screening Behavioral Health Screening [facility] Start: 10-01-2023 Depression Assessment Depression Ass essment [facility] Start: 06-01-2023 Covid-19 Vaccine ( season) Covid-19 Vaccine ( season) [facility] Start: 06-01-2023 Influenza vaccination P [facility] Start: 05-03-2023 Screening for malign ant neoplasm of cervix Pap Smear [facility] Start: 03-19-2023 [facility] Start: 06-02-2020 [facility] Work Phone: Start: 06-01-2020 Influenza vaccination Flu vaccine (# 1) [facility] [place] Start: 12-02-2019 Dental Comp Exam [facility] Work Phone: Start: 11-17-2019 [facility] Work [facility]: Start: 10-21-2019 Lipid 1996 panel Health [facility] Work Phone: Start: 10-14-2019 [facility]: Comment on above: Note: Please make a referral to: Start: 09-16-2019 Dental Comp Exam [facility] Work Phone: Start: 08-25-2019 Medical Establ ished Patient [facility] Work Phone: Start: 08-20-2019 Urine Pregnanc y Test, In House Health [facility] Work Phone: Start: 2018 Screening for malign ant neoplasm of cervix HPV Testing [facility] Start: 2009 Screening for malign ant neoplasm of cervix [facility] Start: 2007 DTaP/Tdap/Td vaccine (1 - Tdap) DTaP/Tdap/Td vaccine (1 - Tdap) [place] Start: 2007 Hepatitis B Vaccine (1 of 3 - 19+ 3-dose series) Hepatitis B Vaccine (1 of 3 - 19+ 3-dose series) [facility] Start: 2006 Adult BMI Follow Up Plan Adult BMI Follow Up Plan [facility] Start: 2006 Annual PCP Team Gin Inspector lorne Disease Visit Annual PCP Team Chronic Disease Visit [facility] Start: 2006 Hepatitis C screening Hepatitis C Sc reening [facility] Start: 2006 HIV screening HIV Screening [facility] Start: 2006 Spirometry Spirometry [facility] Start: 2003 HIV screening HIV screen [place] [facility] [place] Start: 1989 Varicella vaccine (1 of 2 - 2-dose childhood series) Varicella vaccine (1 of 2 - 2-dose childhood series) [place] Adjt tis trns/reargm t f/c/c/m/n/a/g/h/f 10sqcm/< TRANSFER / REARRANGEMENT ADJACENT TISSUE FACE/NECK DEFECT 10 SQ CM OR LESS Malignant melanoma of skin (HCC) [facility] [facility] A60 Alpha fetoprotein, maternal Alpha fetoprotein, maternal Lab Routine Second trimester Ordered: 11/12/2023 [facility] Work Phone: Comment on above: Ordered: 11/12/2023 Bx/exc lymph node op en deep cervical node BIOPSY NODE CERVICAL NECK Malignant melanoma of skin (HCC) [employer] [facility] [employer] [facility] [employer] A60 End: 05-03-2020 C.trachomatis N.gonorrhoeae DNA, Thin Prep C.trachomatis N.gonorrhoeae DNA, Thin Prep Microbiology Routine Once for 1 Occurrences starting 05/03/2020 until 05/03/2020 [place], [place] Comment on above: Once for 1 Occurrenc es starting 05/03/2020 until 05/03/2020 C.trachomatis N.gonorrhoeae DNA, Thin Prep C.trachomatis N.gonorrhoeae DNA, Thin Prep Microbiology Routine 05/03/2020 7:32 AM EDT [place] Excision malignant lesion f/e/e/n/l >4.0 cm EXCISION MALIGNANT LESION FACE OVER 4.0 CM Malignant melanoma of skin (HCC) [facility] A60 Inj radioactive trac er for id of sentinel node INJECTION PROCEDURE RADIOACTIVE TRACER FOR IDENTIFICATION OF SENTINEL NODE Malignant melanoma of skin (HCC) [facility] A60 Intraop sentinel lym ph node id w/dye injection INTRAOPERATIVE ID OF SENTINEL LYMPH NODE(S) INCL'D INJECTION OF NON-RAD DYE WHEN PERFORMED Malignant melanoma of skin (HCC) [facility] A60 End: 02-02-2025 NM Lymph node Views NM LN IMAGING MELANOMA Radiology Routine Malignant melanoma of skin (HCC) 1 Occurrences starting 01/06/2024 until 02/02/[address] [facility] Work Phone: Comment on above: 1 Occurrences starti ng 01/06/2024 until 02/02/2025 Patient Education Hiatal Hernia (DC) [facility] Work Phone: [facility] A60 Immunizations Immunization Date Immunization Notes Care Provider Fa dalia 05-11-2023 influenza virus vaccine, unspecified formulation Katarina Antonio [facility] Work Phone: [facility] 07-16-2022 SARS-COV-2 (COVID-19 ) vaccine, mRNA, spike protein, LNP, bivalent, PF Dionne BRAN Work Phone: [facility] 01-24-2018 tetanus toxoid, redu camden diphtheria toxoid, and acellular pertussis vaccine, adsorbed Dionne BRAN Work Phone: [facility] Healthcare Payers Date Payer Category Payer Self-pay 2022 Medicaid [id number] 2019 Unknown 1 - [employer] [id number] 2017 Unknown [id number] 1988 Unknown [id number] 2.16.84 0.1.990112.3.579.2.593 1988 Unknown [id number] 2.16.84 0.1.282306.3.579.2.593 1988 Unknown [id number] 2.16.84 0.1.308935.3.579.2.593 1988 Unknown [id number] 2.16.84 0.1.474818.3.579.2.593 1988 Unknown [id number] 2.16.84 0.1.462328.3.579.2.593 1988 Unknown [id number] 2.16.84 0.1.468831.3.579.2.593 1988 Unknown [id number] 2.16.84 0.1.581548.3.579.2.593 1988 Unknown [id number] 2.16.84 0.1.009460.3.579.2.593 1988 Unknown [id number] 2.16.84 0.1.096194.3.579.2.593 1988 Unknown [id number] 2.16.8 40.1.382665.3.579.2.1285 1988 Unknown [id number] 2.16.8 40.1.729636.3.579.2.1285 1988 Unknown [id number] 2.16.8 40.1.251772.3.579.2.1285 1988 Unknown [id number] 2.16.8 40.1.862908.3.579.2.1285 1988 Unknown [id number] 2.16.8 40.1.236682.3.579.2.1285 1988 Unknown [id number] 2.16.84 0.1.383792.3.579.2.1285 1988 Unknown [id number] 2.16.8 40.1.279767.3.579.2.1285 1988 Unknown [id number] 2.16.8 40.1.527644.3.579.2.1285 1988 Unknown [id number] 2.16.8 40.1.167033.3.579.2.1285 1988 Unknown [id number] 2.16.84 0.1.834565.3.579.2.1258 1988 Unknown [id number] 2.16.84 0.1.040947.3.579.2.1258 1988 Unknown [id number] 2.16.84 0.1.814078.3.579.2.1258 1988 Unknown [id number] 2.16.84 0.1.058708.3.579.2.1258 1988 Unknown [id number] 2.16.84 0.1.647090.3.579.2.1258 1988 Unknown [id number] 2.16.84 0.1.204309.3.579.2.1259 1988 Unknown [id number] 2.16.84 0.1.558833.3.579.2.1259 1988 Unknown [id number] 2.16.84 0.1.284683.3.579.2.1259 1988 Unknown [id number] 2.16.84 0.1.484155.3.579.2.1259 1988 Unknown [id number] 2.16.840 .1.579090.3.579.2.1259 1959 Medicaid [id number] 2. 16.840.1.283987.19 Self-pay [id number] 2.16.840 .1.421543.3.140.1.81444.5.4 Unknown [employer] [id number] Unknown [id number] 2.16.8 40.1.572301.3.579.2.531 Unknown [id number] 2.16.8 40.1.504697.3.579.2.531 Social History Date Type Detail Facility Assertion Alcohol consumpt ion screening (procedure) [facility] Work Phone: Assertion [facility] Assertion Finding of alcoh ol intake (finding) [facility] Work Phone: Assertion Sexually active (finding) [facility] Work Phone: Assertion Gender identity finding (finding) [facility] Work Phone: Assertion Finding of sexua l orientation (finding) [facility] Work Phone: Tobacco smoking status Unknown if ever smoked [facility] Assertion Emotional stress (finding) [facility] Work Phone: Start: 1990 Sex Assigned At Not on file [facility], [place] Assertion Contraception (finding) [facility] Work Phone: Start: 09-10-2023 End: 02-20-2024 Sex Assigned At [facility] Start: 1990 Sex Assigned At Female [facility] Start: 04-05-2022 End: 12-26-2023 Tobacco smoking status NHIS Never smoked tobacco [facility] Start: 04-05-2022 End: 12-26-2023 Tobacco use and exposure Smokeless tobacco non-user [facility] Start: 10-10-2023 End: 12-17-2023 Alcohol intake Ex-drinker (finding) [facility] Start: 09-10-2023 End: 02-20-2024 History of Social function [facility] How hard is it for you to pay for the very basics like food, housing, medical care, and heating Very hard [facility] Start: 07-12-2023 [facility] Start: 11-12-2023 Alcohol intake Lifetime non-d rhys (finding) [facility] Start: 03-09-2023 Education [facility] Start: 03-09-2023 Alcohol Comment Caffeine intak e: 1-2 cups per day coffee, pop [facility] Start: 12-26-2023 End: 01-21-2024 Alcohol intake Current drinker of alcohol (finding) [facility] NEGATED: Highlighted row Assertion He has not had 5 or more drinks in a day within the past year. 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 Fax sent to request path for a reread Included fed ex label. [facility] 03-11-2024 Miscellaneous Notes Formattin g of this note might be different from the original. Fax sent to request path for a reread Included fed ex label. documented in this encounter [facility] 03-06-2024 Evaluation note Diagnosis Skin cancer- Primary Unspecified malignant neoplasm of skin, site unspecified * Assessment & Plan Note - Ana Peoples MD - 03/06/2024 8:05 AM EDT Associated Problem(s): Skin cancer 03/06/[address] of neck and chest. I emailed with her oncologist via St[employer]. He is ok with her going to39 weeks. I spoke with her OBGYN physician, Dr. Castaneda, who is in agreement. Pt will deliver at [facility]. Pt tells me induction set up for [...] Ana Peoples MD documented in this encounter [facility]06-06-2024 NoteHNO ID: [id number] Author: ANA PEOPLES MD Service: ? Author Type: Physician Type: Progress Notes Filed: 03/06/2024 08:08 Note Text: [facility] STAFF Video visit follow up I have communicated my name and active licensure. The patient's identity and physical location were verified at the time of this visit. Either the patient or their legal field representative/health education has been informed of the risks and benefits of -- and alternatives to -- treatment through a remote evaluation and consents to proceed with the evaluation remotely. Pt is a 33 year old at 36w0d who has the following issues. Please see recommendations in problem based charting. Problem List Items Addressed This Visit Oncology Skin cancer - Primary Current Assessment AND Plan 03/06/[address] of neck and chest. I emailed with her oncologist via Stootie. He is ok with her going to 39 weeks. I spoke with her OBGYN physician, Dr. Castaneda, who is in agreement. Pt will deliver at [facility]. Pt tells me induction set up for [...] yesterday. All questions answered. MD Ana Britton, [facility]06-06-2024 History of Present illness Narrative* Ana Peoples MD - 03/06/2024 7:58 AM EDT [facility] STA[facility] Video visit follow up I have communicated my name and active licensure. The patient's identity and physical location wereverified at the time of this visit. Either the patient or their legal field representative/health education has been informed of the risks and benefits of -- and alternatives to -- treatment through a remote evaluation andconsents to proceed with the evaluation remotely. Pt is a 33 year old at 36w0d who has the following issues. Please see recommendations in problem based charting. Problem List Items Addressed This Visit Oncology Skin cancer - Primary Current Assessment & Plan 03/06/[address] of neck and chest. I emailed with her oncologist via inMerryMarry. He is ok with her going to39 weeks. I spoke with her OBGYN physician, Dr. Castaneda, who is in agreement. Pt will deliver at [facility]. Pt tells me induction set up for [...] MD Ana Britton MD documented in [facility]06-[facility] Telephone encounter Note * Telephone Encounter - Daisy Murray RN - 03/05/2024 9:23 AM EDT Pt updated Daisy Murray RN [facility]06-05-2024 Miscellaneous Notes* Telephone Encounter - Daisy Murray [...] advise Daisy Murray RN documented in this encounterUniversity [facility]06-05-2024 Telephone encounter Note * Telephone Encounter - Usman Goldberg MD - 03/05/2024 8:59 AM EDT I think I already communicated that with her - CT's were negative for any metastatic disease. [facility] Work Phone: [phone]) [phone] Telephone encounter Note* Telephone Encounter - Daisy Murray RN - 03/04/2024 3:57 PM EDT Pt requesting CT results Louisa: Please review and advise Daisy Murray RN [facility]06-03-2024 Telephone encounter Note* Telephone Encounter - Surjit [...] post . Instructions provided to reschedule BIBI. [facility]06-03-2024 Miscellaneous Notes* Telephone Encounter - Surjit Griggs [...] to reschedule BIBI. * Telephone Encounter - Ward Orta - 02/29/2024 3:25 PM EDT Pt calling in to cancel surgery on 03/14 and pre op appointment. Can you call her back? Thank you documented in this encounterUniversity [facility]als [facility]06-03-2024 Telephone encounter Note * Telephone Encounter - Ana Peoples MD - 03/03/2024 11:03 AM EDT 03/03/2024 MFM Message left on pts phone to look at her my chart messages. Ana Peoples MD [facility]06-03-2024 Miscellaneous Notes* Telephone Encounter - Ana Peoples MD - 03/03/2024 11:03 AM EDT 03/03/2024 MFM Message left on pts phone to look at her my chart messages. Ana Peoples MD documented in this encounterUniversity [facility]als [facility]05-31-2024 Telephone encounter Note * Telephone Encounter - Ward Orta - 02/29/2024 3:25 PM EDT Pt calling in to cancel surgery on 03/14 and pre op appointment. Can you call her back? Thank you [facility]05-28-2024 Telephone encounter Note* Telephone Encounter - Usman Goldberg MD - 02/26/2024 2:58 PM EDT She texted me - CT's look good. Will need a chest ct later. [facility] Work Phone: [phone] Miscellaneous Notes* Telephone Encounter - Usman Goldberg [...] advise Daisy Murray RN documented in this encounterUniversity Hospitals [facility]05-28-2024 Telephone encounter Note * Telephone Encounter - Sylvia Alcala [facility] - 02/26/2024 12:43 PM EDT Patient calling. Doesn't know how to proceed. States her oncologist is out of town and no one can read the results. States she is 35 weeks . Please call patient back to discuss. [facility]05-28-2024 Telephone encounter Note* Telephone Encounter - Daisy Murray RN - 02/26/2024 12:21 PM EDT Pt calling for CT results. She is aware Dr Deshpande is out of office this week and will be in touch withhis response Sunday. Louisa: Please advise Daisy Murray RN [facility]05-24-2024 NoteHNO ID: [id number] Author: PACHECO BOWEN RN Service: ? Author [...] Mckeon DATE: February 22, 2024 TIME: 10:46 [facility]05-24-2024 NoteHNO ID: [id number] Author: BRANDON RDZ RT(R) Service: ? Author [...] PATIENT PRESENTS WITH AN IMPLANTABLE OR ATTACHED RESISTANCE WELDING MACHINE OPERATOR: No RADIOLOGY DEPARTMENT: CT; Exam(s) Completed: Chest and Neck PERIPHERAL IV DATA: Site assessment: Clean,Dry and Intact, Site disposition Discontinued SIGNED BY: RT Dante(R) February 22, 2024 11:10 [facility]04-26-2024 Telephone encounter Note* Telephone Encounter - Cynthia Petty - 01/25/2024 1:47 PM EDT Pt is not able to make the appt on 02/11; amina wondering if this should be on March 14 instead? Thanks [facility]04-26-2024 Miscellaneous Notes* Telephone Encounter - Cynthia Petty - 01/25/2024 1:47 PM EDT Pt is not able to make the appt on 02/11; alosaleksandra wondering if this should be on March 14 instead? Thanks documented in this encounterUniversity Hospitals [facility]04-25-2024 Telephone encounter Note * Telephone Encounter - Angela Hilario - 01/24/2024 12:44 PM EDT Vy is scheduled for her CT scan on 02/21 at 11am. She is scheduled for her labwork still, on 02/19. I spoke with Vy and she is in agreement. Angela Arthur [facility]04-25-2024 Miscellaneous Notes* Telephone Encounter - Angela Hilario [...] Churchill RN * Telephone Encounter - Usman oGldberg MD - 01/24/2024 12:18 PM EDT It's [...] note were not included. documented in this encounterUniversity Hospitals [facility]04-25-2024 Telephone encounter Note * Telephone Encounter - Brandon Churchill RN - 01/24/2024 12:23 PM EDT Clerical: Please call pt to schedule CT scans. Brandon Churchill RN [facility] Work Phone: [phone] Telephone encounter Note* Telephone Encounter - Usman Goldberg MD - 01/24/2024 12:18 PM EDT It's ok to move up - but I'd want to know closer to delivery (33 weeks - 34 weeks) because then there won't be a need for additional scans later. Labs are to be done prior to CT. [facility]04-25-2024 Telephone encounter Note* Telephone Encounter - Brandon [...] CT ahead of 02/19? Brandon Churchill RN [facility]04-25-2024 Telephone encounter Note* Telephone Encounter - Daisy [...] Vy Deshpande: Please advise Daisy Murray RN [facility]04-24-2024 Telephone encounter Note* Telephone Encounter - Usman Goldberg MD - 01/23/2024 4:24 PM EDT We won's be doing scans for 4 weeks.... that works out to be around 33 weeks gestation Does that sound right? (February 19) Jerson, louisa. [facility]04-24-2024 Telephone encounter Note* Telephone Encounter - Brandon Churchill RN - 01/23/2024 3:54 PM EDT Pt calls regarding CT scans. Please place orders. Thanks! Brandon Churchill RN [facility]04-23-2024 Telephone encounter Note* Telephone Encounter - Ana Peoples MD - 01/22/2024 3:40 PM EDT 01/22/2024 MFM Pt called and identified ~ [...] known. All questions answered. Ana Peoples MD [facility]04-23-2024 Miscellaneous Notes* Telephone Encounter - Ana Peoples MD - 01/22/2024 3:40 PM EDT 01/22/2024 M Pt called and identified ~ [...] answered. Ana Peoples MD documented in this encounterUniversity Hospitals [facility]04-23-2024 Telephone encounter Note * Telephone Encounter - Brandon Churchill RN - 01/22/2024 1:02 PM EDT Images from the original note were not included. [facility]04-23-2024 NoteHNO ID: [id number] Author: ANA PEOPLES MD Service: ? Author [...] Skin cancer Current Assessment AND Plan 01/22/2024 [facility] Pt is a 33 year old 29w4d with a new diagnosis of malignant melanoma located above the left upper lip. Oncologist Usman Goldberg MD Surgeon Fransico Sharp MD Pts general OBGYN in [place], [place]: Eliazar Castaneda MD The plan is for wide local excision with reconstruction, which may take multiple trips to the OR. The OR plan involves radioactive tracer for sentinal node She has not been imaged for staging. She comes to [facility] today for discussion on when to [...] with more than 50% of the total colv-jr-tzeh time of the visit in counseling / coordination of care. I shared my findings and recommendations via the shared medical record or via the mail to the referring provider. Ana Peoples, [facility]04-23-2024 History of Present illness Narrative* Ana Peoples [...] Skin cancer Current Assessment & Plan 01/22/2024 [facility] Pt is a 33 year old 29w4d with a new diagnosis of malignant melanoma located above the left upper lip. Oncologist Usman Goldberg MD Surgeon Fransico Sharp MD Pts general OBGYN in [place], [place]: Eliazar Castaneda MD The plan is for wide local excision with reconstruction, which may take multiple trips to the OR. The OR plan involves radioactive tracer for sentinal node She has not been imaged for staging. She comes to [facility] today for discussion on when to [...] with more than 50% of the total bxvx-so-ijwq time of the visit in counseling / coordination of care. I shared my findings and recommendations via the shared medical record or via the mail to the referring provider. Ana Peoples MD documented in this encounterUniversity Hospitals [facility]04-19-2024 Miscellaneous Notes* Telephone Encounter - Jose L [...] Jose L Crowley MA documented in this encounterUniversity Hospitals [facility] Center04-11-2024 Miscellaneous Notes* Telephone Encounter - Rolo Parada - 01/10/2024 9:18 AM EDT [employer] msg was sent to patient asking for call back to this coordinator to schedule MFM consultation. documented in this encounterUniversity Hospitals [facility] Center04-10-2024 Miscellaneous Notes* Telephone Encounter - Surjit Griggs RN - 01/09/2024 12:35 PM EDT Reached out to patient. Instructions provided to see a maternal medicine specialist within the [facility] per Dr. Sharp. This nurse [...] does she needto see one at the [facility]? She is asking for a call.. she is very nervous documented in this encounterUniversity Hospitals Parma Medical Center04-05-2024 Instructions* Patient Instructions* Valerie Bedoya RN - 01/04/2024 3:21 PM EDT PLAN: - Photos taken and uploaded to chart today via Zapcoder - Pathology re-read to be obtained - Surgical plan is for resection of left upper lip melanoma, reconstruction with local tissue rearrangement, and a sentinel lymph node biopsy - Surgery at [facility] or [facility]. Likely plan is to wait for surgical intervention until after 36 weeks . - Pre op clearance (PACC) prior to surgery for clearance to receive general anesthesia; must be done at a [facility] location - Nuclear medicine appointment at [facility] the morning of surgery - Post op 7-10 days with Tana Cervantes APRN.CNP - Consult placed to Maternal Medicine (MFM) for risk assessment and guidance: call [phone] to schedule. - Recommend regular dermatology follow-up for FBSE - Q3 months for 2 years, Q6 months for 5 years and Q1 year for the rest of his/her life Our surgical services assistant will contact you to set up all surgical appointments: pre op (PACC) prior tosurgery, nuclear medicine the morning of surgery, surgery itself, and a post op visit about 7-10 days after surgery with the team's nurse practitioner, Tana. Follow up prior to surgical date: around 36-37 weeks or after delivery. Please notify us of [facility]'s recommendations. Please MyChart message or call the office with questions/concerns. documented in this encounterUniversity Hospitals Par[facility] Center03-29-2024 NoteHNO ID: [id number] Author: FRANSICO SHARP MD Service: ? Author Type: Physician Type: Progress Notes Filed: 01/06/2024 09:42 Note Text: DATE: January 03, 2024 CC: New Melanoma Patient Referring Physician: Margarita Kim MD at [facility] HPI: Vy Mckeon is a 33 year [...] 400 mg by mouth. omeprazole magnesium (ACID GATE TECHNICIAN, OMEPRAZOLE, ORAL) Take by mouth as directed. [...] left upper lip with a variegated pattern, security control room officer in the middle with a number of dark spots. The lesion measures 1 cm in diameter. Photos taken, see [facility] Get Images LABS: Pathology Report [...] taken and uploaded to chart today via Zapcoder - Pathology re-read to be obtained - Surgical plan is for resection of left upper lip melanoma, reconstruction with local tissue rearrangement, and a sentinel lymph node biopsy - Surgery at [facility] or . Likely plan is to wait for surgical intervention until after 36 weeks . - PACC prior to surgery - Nuclear medicine appointment at [facility] the (more content not included)... [facility]03-29-2024 History of Present illness Narrative* Fransico Sharp MD - 12/28/2023 8:54 AM EDT Images from the original note were not included. DATE: January 03, 2024 CC: New Melanoma Patient Referring Physician: Margarita Kim MD at [facility] HPI: Vy Mckeon is a 33 year [...] 400 mg by mouth. omeprazole magnesium (ACID GATE TECHNICIAN, OMEPRAZOLE, ORAL) Take by mouth as directed. [...] left upper lip with a variegated pattern, security control room officer in the middle with a number of dark spots. The lesion measures 1 cm in diameter. Photos taken, see [facility] Get Images LABS: Pathology Report [...] taken and uploaded to chart today via Zapcoder - Pathology re-read to be obtained - Surgical plan is for resection of left upper lip melanoma, reconstruction with local tissue rearrangement, and a sentinel lymph node biopsy - Surgery at [facility] or . Likely plan is to wait for surgical intervention until after 36 weeks . - PACC prior to surgery - Nuclear medicine appointment at [facility] the morning of surgery - Post op 7-10 days with Tana Cervantes APRN.CERTIFIED PROCEDURAL CODER - Consult placed to [facility] for risk assessment and guidance: call [phone] to schedule. - Recommend regular dermatology follow-up for FBSE - Q3 months for 2 years, Q6 months for 5 years and Q1 year for the rest of his/her life - Patient follows with OBGYN Dr. Castaneda in [place], [place] Follow up after 36 weeks of and with [facility]'s recommendations. The patient is seen and examined by Dr. Sharp and the following reflects his service. Scribed by Valerie Bedoya RN STAFF NOTE: I agree with the Chief Complaint, ROS, and Past Histories independently gathered by the clinical direct support worker and the remaining scribed note accurately describes [...] we would coordinate this with her highway administrative engineer team here at the [facility]. While I believe this jonathan a somewhat [...] consultation. Fransico Sharp MD documented in this encounterUniversity Hospitals [facility]03-27-2024 NoteHNO ID: [id number] Author: USMAN GOLDBERG MD Service: ? Author Type: Physician Type: Progress Notes Filed: 12/27/2023 12:46 Note Text: NAME: Vy Mckeon [facility] NO.: [id number] DATE OF SERVICE: December 26, 2023 (Krystal) [...] 400 mg by mouth. omeprazole magnesium (ACID GATE TECHNICIAN, OMEPRAZOLE, ORAL) Take by mouth as directed. PNV no.95/ferrous fum/folic ac ( ORAL) Take by mouth as directed. LABORATORY VALUES: WBC (k/uL) Date Value 12/26/2023 9.72 RBC (m/uL) Date Value 12/26/2023 3.99 Hemoglob (more content not included)...[facility]03-18-2024 History of Present illness Narrative* Freddie Delgado, INTERNET DESIGNER-CERTIFIED PROCEDURAL CODER - 12/17/2023 1:45 PM EDT Subjective Patient ID: Vy Mckeon is a 33 y.o. female. FRANDY Mcclellan presents to the office for follow up.She was last seen with continued depression and anxietyand had stopped taking Zoloft, hydroxyzine and trazodone because she was found to be . She is 24 weeks along in her with Placenta previa. Last PACKAGE SEALER visit 12/11/23 with . carrier screening result [...] not have morning sickness. Lab work from [facility] 12/10 pre- visit RBC-3.72, HGB 11.2, HCT [...] normal. Behavior: Behavior normal. Assessment/Plan Follow-up with PACKAGE SEALER for follow-up on hematology result showing minimally [...] for sleep. Note completed with assistance of LABORER BROODER FARM student. GIOVANNI Darling 12/17/23 1538 documented in this encounterMartins Ferry [facility]03-18-2024 Miscellaneous Notes* Medical Student - Valerie [...] the legal medical record. documented in this encounterMartins Ferry Hospital03-18-2024 Progress note* Medical Student - Valerie Vasquez [...] a part of the legal medical record. [facility]03-08-[facility] History of Present illness Narrative* TAMMY [...] if anything comes up. documented in this encounterWyandot Memorial HospitalPulseOn Pontiac General [id number] History of Present illness Narrative* Fidencio Rojas MD - 11/20/2023 9:30 AM EST Video Visit via Real-time Synchronous Audiovisual Provider Location: [facility]- MEDICINE AT [address], [address] [place] [address] Patient Location: Other Patient Location Shelf Drier Operator: None Video Visit Consent Statement: I [...] that there are some limitations compared to duks-hp-hilc evaluations. We elected to proceed. REASON FOR OFFICE VISIT: placenta previa HISTORY OF PRESENT ILLNESS: yV Mckeon is a pleasant 33 y.o. at [...] for nausea or vomiting., Disp: , Rfl: [id number]-htyh-gfbxv- 29-1-400 mg combo pack,tablet & capDR, Take [...] TESTS AND ULTRASOUND REPORTS: Referral records and [facility] chart were reviewed Pertinent Ultrasound findings are [...] patient is in complete care of her software writer. Patient does have ultrasound and office visit scheduled with us. Thank you for allowing me to participate in the care of Vy Mckeon. If there any questions please do not hesitate to contact us. Fidencio Rojas MD Maternal- Medicine [facility] [address] [place] [address] [facility], the CDC, and other organizations representing maternal and public health professionals recommend that , , and lactating people and those considering receive the COVID-19 vaccination. Vaccination is the best method to reduce maternal and complications of SARS-CoV-2 infection. This document was created with [employer] Direct technology. Though I make every effort to review the dictation as it is transcribed, on occasion the spoken word can be misinterpreted by the technology leading to inappropriate words, phrases, or sentences. This note is addressed to the requesting provider as a consultation for clinical guidance. Specificmedical abbreviations are occasionally used and those are generally approved by the [place]?Board of?Obstetrics and?Gynecology?as well as?Justyna rea abbreviations. The above plan of care was based solely on the diagnoses for which a consultation was requested. ?More frequent testing may be indicated based on her other medical/obstetrical conditions. The management of other or medical conditions is beyond the scope of requested consultation and will c ontinue to be followed by the primary software writer or primary care provider. Note to patient: [...] opinion of the practitioner. documented in this encounterWyandot Memorial HospitalPulseOn Pontiac General [id number] History of Present illness Narrative* SHANT España [...] Diagnosis Date ADHD (attention deficit hyperactivity disorder) ([facility]) Allergies Anxiety Asthma (CMS/HCC) Bipolar disorder (CMS/HCC) [...] obtained without difficulty and patient was given [facility] order to have obtained. Follow Up: Patient is to return to our office in 4 weeks for routine OB appointment Documented by Dana Farris LPN on behalf of: SHANT España documented in this encounterProgress West [id number] History of Present illness Narrative* TAMMY Duran - 11/12/2023 10:22 AM ESTSummary: MOB carrier screening results Called and discussed carrier screening results with Vy. 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 We discussed the natural history and etiology of the condition. Irecommend FOB carrier screening if he's available. She understood and had no additional questions. She will reach out to [facility] to get the necessary info needed for me to order his carrier screening (full name, , phone number, email, health insurance info). She requests the kit be sent to her homeaddress. I will be on the lookout for an email from her with his information. I encouraged the patient to call back with any additional questions or concerns. documented in this encounterMartins Ferry Hospital01-29-2024 History of Present illness Narrative* TAMMY [...] be completed between 11/10-11/17. documented in this encounterMartins Ferry Hospital01-22-2024 History of Present illness Narrative* TAMMY Duran - 10/22/2023 11:00 AM ESTSummary: M Genetic Counseling Note Provider at different site/location than patient. I confirmed the patient is located in the [facility]. Vy Mckeon is currently at home and provider at remote site. The patient consented to be treated electronically via this form of telemedicine. This visit was not related to an office visit or procedure in the past 7 days, and in-office follow up is not recommended in the next 24 hours. Video Visit via Real-time Synchronous Audiovisual Provider Location: [facility]- MEDICINE AT [address] [address] Patient Location: Patient's home Patient Location Shelf Drier Operator: None Video Visit Consent Statement: I [...] that there are some limitations compared to apgb-jx-updr evaluations. We elected to proceed. Name: Vy Mckeon : 1990 Date of Visit: 10/22/2023 Email: Preferred contact method: email Partner's Name: Bogdan Age: 32 Requesting Physician: Eliazar Castaneda DO [address] [place] [address] , [place] [address] Reason for Referral: Vy Mckeon is a 33 y.o. female who presented to [facility] Telemedicine Clinic. Vy is here at [...] Screen: YES - low risk Performing lab: [facility] ([facility]) Conditions screened: Trisomy 13, Trisomy [...] the medical records and evaluation by medical cost consultant of the affected individual would be recommended. [...] age I personally spent 25 minutes in ptld-ry-ogdi time with this patient. I provided genetic [...] call or email their genetic counselor at [phone] or [email or web address] if any additional questions or concerns should arise. TAMMY Soto Licensed, Certified Genetic Counselor documented in this encounterMartins Ferry Hospital08-29-2023 Evaluation note* Encounter Date Diagnosis Assessment Notes Treatment Notes Treatment Clinical Notes May, Thrush (ICD-10 - B37.0) Continue home medications as prescribed. Use the nystatin mouthwash as prescribed, swish and swallow. Follow-up with your family physician if no improvement in 2 to 3 days [facility] Other 06-19-2023 [facility] Evaluation [facility]* Encounter Date Diagnosis Assessment [...] educated on the importance of PPI optimization [employer] [facility] Other 05-10-2023 Evaluation note* Encounter Date Diagnosis [...] January, Other Contusion mater ial was printed [employer] [facility] Other 08-23-2022 NoteOPERATIVE NOTE OPERATION DATE: 05/23/2022 PROCEDURE: Suction D AND C. PREOPERATIVE DIAGNOSIS: Missed . POSTOPERATIVE DIAGNOSIS: Missed . ANESTHESIA: General. SURGEON: Eliazar Castaneda D.O. SOFTWARE ENGINEERING SUPERVISOR: None. FINDING: Products of conception. SPECIMEN: Products [...] products of conception were removed using an 8-German suction curette. Excellent hemostasis was noted. The patient tolerated the procedure well. Sponge, lap, and needle counts were correct x 2. All instruments were then removed from the patient's vagina. The patient was taken to the Recovery Room in stable condition. ??[facility] HospitalEvaluation note Includes: Assessments for all patient encounters Findings Encounter Date [facility]2020 Generalized anxiety disorder [facility] with [facility] 03/29/2020 Dysthymic disorder Established Patie nt with Bobbi Colon [facility] 10/14/2019 Generalized anxiety disorder Establis hed Patient with Bobbi Colon [facility] 10/14/2019 Z68.24 - Body mass index (BM I) 24.0-24.9 adult Medical Established Patient with Candace Grossman [facility] 10/14/2019 F34.1 - Dysthymic disorder Establishe d Patient with Bobbi Colon [facility] 09/04/2019 Generalized anxiety disorder Establis hed Patient with Bobbi Colon [facility] 09/04/2019 Body mass index Medical Established Patient with Candace Grossman [facility] 09/04/2019 Diabetes Risk Test Score was 0 score 09/04/2019 Medical Established Patient with Candace Grossman [facility] 09/04/2019 Body mass index Nurse Visit with Candace Grossman P 08/19/2019 Diabetes Risk Test Score was 0 score 08/19/2019 Nurse Visit with Candace Grossman [facility] 08/19/2019 Generalized anxiety disorder Establis hed Patient with Bobbi Colon [facility] 07/28/2019 Severe recurrent major depre 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 features Established Patient with Bobbi Colon [facility] 07/28/2019 AUDIT alcohol use disorders identification test was six 07/28/2019 Medical New Patient with Candace Grossman [facility] 07/28/2019 Diabetes Risk Test Score was 0 score 07/28/2019 Medical New Patient with Candace Grossman [facility] 07/28/2019 ZAN-7 score was 21 07/28/2019 Medical Ne w Patient with Candace Grossman [facility] 07/28/2019 PHQ-9: total score was 21 07/28/2019 Med ical New Patient with Candace Grossman [facility] 07/28/2019 Z68.22 - Body mass index (BM I) 22.0-22.9 adult Medical New Patient with Candace Grossman [facility] 07/28/2019 [facility] Work Phone: Evaluation noteNo assessment information available [facility] Work Phone: Evaluation note* Diagnosis Onset Date Resolution Status GERD (gastroesophageal reflux disease) acute [facility] Work Phone: Evaluation note* Diagnosis Multigravida of advanced maternal age in second trimester- Primary Family history of autism Family history of mental disorder Family history of psychiatric condition documented in this encounter [facility] SystemEvaluation note* Diagnosis Multigravida of advanced maternal age in second trimester- Primary Family history of autism Family history of mental disorder Family history of psychiatric condition documented in this encounter [facility] SystemEvaluation note* Diagnosis Second trimester state, incidental Vaginal discharge Leukorrhea, not specified as infective STD exposure Screening, , for anatomic survey Encounter for anatomic survey Chronic cluster headache, not intractable documented in this encounter [facility] HospitalEvaluchristianacare note* Diagnosis Multigravida of advanced maternal age in second trimester Family history of autism Family history of mental disorder Family history of psychiatric condition documented in [facility] encounter [facility]* Diagnosis 20 weeks gestation of - Primary Placenta previa antepartum in second trimester Advanced maternal age in multigravida, second trimester documented in this encounter [facility] SystemEvaluation [facility]* Diagnosis Placenta previa antepartum in second trimester- Primary Multigravida of advanced maternal age in second trimester documented in this encounter [facility] SystemEvaluation [facility]* Diagnosis Nausea and vomiting, unspecified vomiting type- Primary Psychophysiological insomnia Persistent disorder of initiating or maintaining sleep documented in this encounter [facility]Evaluation [facility]* Diagnosis Malignant melanoma of skin (HCC)- Primary Melanoma of skin, site unspecified documented in this encounter [facility] CenterEvaluchristianac[facility] note* Diagnosis Encounter for anatomic survey Encounter for anatomic survey- Primary documented in this encounter [facility]Evaluation [facility]* Diagnosis Encounter for anatomic survey documented in this encounter [facility] CenterEvaluchristianacare note* Diagnosis Malignant melanoma of skin (HCC) Melanoma of skin, site unspecified Skin cancer Unspecified malignant neoplasm of skin, site unspecified Placenta previa antepartum in second trimester * Assessment & Plan Note - Ana Peoples MD - 01/21/2024 1:34 PM EDT Associated Problem(s): Skin cancer 01/22/2024 [facility] Pt is a 33 year old 29w4d with a new diagnosis of malignant melanoma located above the left upper lip. Oncologist Usman Goldberg MD Surgeon Fransico Sharp MD Pts general OBGYN in [place], [place]: Eliazar Castaneda MD The plan is for wide local excision with reconstruction, which may take multiple trips to the OR. The OR plan involves radioactive tracer for sentinal node She has not been imaged for staging. She comes to [facility] today for discussion on when to [...] pt can deliver [facility] to home [facility] if she goesat term and the CT does not show any spread.. We would need to find a way to get the placenta to [facility] for examination. I have left a message with Dr. Castaneda's office to call me back so that we can confirm ability to get placenta to [facility] for pathology should she deliver at [place]. Ana Peoples MD documented in this encounter [facility]* Diagnosis Malignant melanoma of skin (HCC)- Primary Melanoma of skin, site unspecified Malignant melanoma of skin (HCC) Melanoma of skin, site unspecified documented in this encounter [facility] Narrative - Reported* Type Description Date Medical History anxiety Medical History depression Medical History ADHD Surgical History D&C [facility] Other History general Narrative - Reported* Type Description Date Medical History anxiety Medical History depression Medical History ADHD Surgical History D&C 2021 [facility] Other History of Present illness Narrative History of Present Illness not supported for this document type No History of Present Illness RecordedHealth [employer] Work Phone: Hospital Discharge instructions [...] if you have any problems. -Office number [phone] [place] [facility] Work Phone: Instructions Instructions not supported for this document type No Instructions RecordedHealth [facility] Work Phone: InstructionsNot on filedocumented in this encounter [facility] SystemInstructionsNot on filedocumented in this encounter [facility] [place] SystemInstructionsNot on filedocumented in this encounter [facility]MAust[facility] Clinic SystemPatient problem outcome Narrative Includes: Evaluations & Outcomes for active Goals No Outcomes RecordedHealth [facility] Work Phone: reason for referral (narrative)No Reason for Referral RecordedHealth [facility] Work Phone: Reason for referral (narrative)* Diagnostic Procedure Only (Routine) - Closed Specialty Diagnoses / Procedures Referred By Kalina ghotra Referred To Contact [facility] Diagnoses Encounter for anatomic survey Procedures OBSTETRIC ULTRASOUND WHI US PREG UTERUS AFTER 1ST [place] [address] [place] [address] [facility] [address] [place] [address] Referral ID Status Reason Start Date Expiration Date V isits Requested Visits Authorized [id number] Closed Auto-Generate d Referral 01/21/2024 01/20/2025 1 1 [facility] for visit NarrativeUNCONTROLLED GERD//REFERRAL FROM [facility] Other Reason for visit Narrative* Consultation (Routine) - Pending Review Specialty Diagnoses / Procedures Referred By Contac t Referred To Contact Maternal and Medicine Diagnoses Multigravida of advanced maternal age in second trimester Eliazar Castaneda R, DO [address] , [place] [address] [facility] Maternal Med [address] [place] [address] Referral ID Status Reason Start Date Expiration Date Visits Requested Visits Authorized [id number] Pending Review Specialty Services Required 10/10/2023 10/09/2024 1 1 [facility] hospital for visit Narrative* Diagnostic Procedure Only (Routine) - Closed Specialty Diagnoses / Procedures Referred By Contac t Referred To Contact [facility] Diagnoses Encounter for anatomic survey Procedures OBSTETRIC ULTRASOUND WHI US PREG UTERUS AFTER 1ST [place] [address] [place] [address] 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 Court Services Expl anation Advance Directives and Living Will Power of Isotope Technologist Advance Directive Response Recorded Date/ Time Advance Directives No February 07 3 3:12pm Reason for Referral Specialty Diagnoses / Procedures Referred By Contac t Referred To Contact Maternal and Medicine Diagnoses Placenta previa antepartum in second trimester Multigravida of advanced maternal age in second trimester Procedures US MFM with or without consult Fidencio Rojas MD [address] [facility] 1st [place] [address] [facility] Maternal Med [address] [place] [address] Referral ID Status Reason Start Date Expiration Date V isits Requested Visits Authorized [id number] Pending Review 11/20/2023 11/19/2024 1 1 Specialty Diagnoses / Procedures Referred By Contac t Referred To Contact Diagnoses Malignant melanoma of skin (HCC) Procedures REFER TO PACC - PRE ANESTHESIA CONSULTATION CLINIC OFFICE/OUTPATIENT [facility] 60 MINUTES Fransico Sharp MD [address] [place] [address] Referral ID Status Reason Start Date Expiration Date Visits Requested Visits Authorized [id number] Authorized PCP Requested Referral 01/04/2024 01/03/2025 1 1 Specialty Diagnoses / Procedures Referred By Contac t Referred To Contact Diagnoses Malignant melanoma of skin (HCC) Procedures CONSULT TO MATERNAL MEDI OFFICE/OUTPATIENT [facility] 60 MINUTES Fransico Sharp MD [address] [place] [address] Referral ID Status Reason Start Date Expiration Date Visits Requested Visits Authorized [id number] Authorized PCP Requested Referral Auto-Generate d Referral 01/04/2024 01/03/2025 1 1 Specialty Diagnoses / Procedures Referred By Contac t Referred To Contact CT IMAGING Diagnoses Malignant melanoma of skin (HCC) Procedures CT CHEST W IVCON DIAGNOSTIC COMPUTED TOMOGRAPHY THORAX W/CONTRAST Usman Goldberg MD [address] [place] [address] [place] [address] Ct [facility] Referral ID Status Reason Start Date Expiration Date Visits Requested Visits Authorized [id number] Authorized Auto-Generat ed Referral 02/20/2024 02/21/2025 1 1 Specialty Diagnoses / Procedures Referred By Contac t Referred To Contact CT IMAGING Diagnoses Malignant melanoma of skin (HCC) Procedures CT NECK SOFT TISSUE W IVCON CT SOFT TISSUE NECK W/CONTRAST MATERIAL Usman Goldberg MD [address] [place] [address] [place] [address] [place] [address] Referral ID Status Reason Start Date Expiration Date Visits Requested Visits Authorized [id number] Authorized Auto-Generat ed Referral 02/20/2024 02/21/2025 1 1 Assessments Findings Encounter Date Generalized anxiety disorder BH Establis hed Patient with Bobbileif Colon [facility] 07/28/2019 Severe recurrent major depre 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 features Established Patient with Bobbileif Colon [facility] 07/28/2019 AUDIT alcohol use disorders identification test was six 07/28/2019 Medical New Patient with Candace Ngoc [facility] 07/28/2019 Diabetes Risk Test Score was 0 score 07/28/2019 Medical New Patient with Candace Ngoc [facility] 07/28/2019 ZAN-7 score was 21 07/28/2019 Medical Ne w Patient with Candace Ngoc [facility] 07/28/2019 PHQ-9: total score was 21 07/28/2019 Med ical New Patient with Candace Ngoc [facility] 07/28/2019 Z68.22 - Body mass index (BM I) 22.0-22.9 adult Medical New Patient with Candace Ngoc [facility] 07/28/2019 Findings Encounter Date F34.1 - Dysthymic disorder BH Establishe d Patient with Bobbi Colon [facility] 09/04/2019 Generalized anxiety disorder BH Establis hed Patient with oBbbi Colon [facility] 09/04/2019 Body mass index Medical Established Patient with Candacehalley Grossman [facility] 09/04/2019 Diabetes Risk Test Score was 0 score 09/04/2019 Medical Established Patient with Candacehalley Grossman [facility] 09/04/2019 Body mass index Nurse Visit with Candace Grossman P 08/19/2019 Diabetes Risk Test Score was 0 score 08/19/2019 Nurse Visit with Candace Grossman [facility] 08/19/2019 Generalized anxiety disorder BH Establis hed Patient with Bobbileif Colon [facility] 07/28/2019 Severe recurrent major depre 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 features BH Established Patient with Bobbi Colon [facility] 07/28/2019 AUDIT alcohol use disorders identification test was six 07/28/2019 Medical New Patient with Candace Houstonen [facility] 07/28/2019 Diabetes Risk Test Score was 0 score 07/28/2019 Medical New Patient with Candace Grossman [facility] 07/28/2019 ZAN-7 score was 21 07/28/2019 Medical Ne w Patient with Candace Houstonen [facility] 07/28/2019 PHQ-9: total score was 21 07/28/2019 Med ical New Patient with Candace Houstonen [facility] 07/28/2019 Z68.22 - Body mass index (BM I) 22.0-22.9 adult Medical New Patient with Candace Ngoc [facility] 07/28/2019 Findings Encounter Date Dysthymic disorder Established Patie nt with Bobbi Colon [facility] 10/14/2019 Generalized anxiety disorder BH Establis hed Patient with Bobbi Colon [facility] 10/14/2019 Z68.24 - Body mass index (BM I) 24.0-24.9 adult Medical Established Patient with Candace Ngoc [facility] 10/14/2019 F34.1 - Dysthymic disorder Establishe d Patient with Bobbi Colon [facility] 09/04/2019 Generalized anxiety disorder BH Establis hed Patient with Bobbi Colon [facility] 09/04/2019 Body mass index Medical Established Patient with Candace Ngoc [facility] 09/04/2019 Diabetes Risk Test Score was 0 score 09/04/2019 Medical Established Patient with Candcae Ngoc [facility] 09/04/2019 Body mass index Nurse Visit with Candace Grossman P 08/19/2019 Diabetes Risk Test Score was 0 score 08/19/2019 Nurse Visit with Candace Grossman [facility] 08/19/2019 Generalized anxiety disorder BH Establis hed Patient with Bobbileif Colon [facility] 07/28/2019 Severe recurrent major depre 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 features BH Established Patient with Bobbi Colon [facility] 07/28/2019 AUDIT alcohol use disorders identification test was six 07/28/2019 Medical New Patient with Candace Ngoc [facility] 07/28/2019 Diabetes Risk Test Score was 0 score 07/28/2019 Medical New Patient with Candace Ngoc [facility] 07/28/2019 ZAN-7 score was 21 07/28/2019 Medical Ne w Patient with Candace Ngoc [facility] 07/28/2019 PHQ-9: total score was 21 07/28/2019 Med ical New Patient with Candace Ngoc [facility] 07/28/2019 Z68.22 - Body mass index (BM I) 22.0-22.9 adult Medical New Patient with Candace Grossman [facility] 07/28/2019 Findings Encounter Date Visit for: contraceptive management Women's Heal with Linnea Escobar [facility] 04/08/2020 Z68.24 - Body mass index (BM I) 24.0-24.9, adult Women's Health with Linnea Escobar [employer] [employer] [facility] 04/08/2020 Depressive disorder Telebehavioral He alth with Emilee Short [facility] 03/29/2020 Generalized anxiety disorder Telebeha vioral Health with Emilee Short [facility] 03/29/2020 Dysthymic disorder Established Patie nt with Bobbi Colon [facility] 10/14/2019 Generalized anxiety disorder Establis hed Patient with Bobbi Colon [facility] 10/14/2019 Z68.24 - Body mass index (BM I) 24.0-24.9 adult Medical Established Patient with Candace Grossman [facility] 10/14/2019 F34.1 - Dysthymic disorder Establishe d Patient with Bobbileif Colon [facility] 09/04/2019 Generalized anxiety disorder BH Establis hed Patient with Bobbileif Colon [facility] 09/04/2019 Body mass index Medical Established Patient with Candace Grossman [facility] 09/04/2019 Diabetes Risk Test Score was 0 score 09/04/2019 Medical Established Patient with Candace Grossman [facility] 09/04/2019 Body mass index Nurse Visit with Candace Grossman P 08/19/2019 Diabetes Risk Test Score was 0 score 08/19/2019 Nurse Visit with Candace Grossman [facility] 08/19/2019 Generalized anxiety disorder Establis hed Patient with Bobbi Colon [facility] 07/28/2019 Severe recurrent major depre 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 features Established Patient with Bobbileif Colon [facility] 07/28/2019 AUDIT alcohol use disorders identification test was six 07/28/2019 Medical New Patient with Candace Grossman [facility] 07/28/2019 Diabetes Risk Test Score was 0 score 07/28/2019 Medical New Patient with Candace Grossman [facility] 07/28/2019 ZAN-7 score was 21 07/28/2019 Medical Ne w Patient with Candace Grossman [facility] 07/28/2019 PHQ-9: total score was 21 07/28/2019 Med ical New Patient with Candace Grossman [facility] 07/28/2019 Z68.22 - Body mass index (BM I) 22.0-22.9 adult Medical New Patient with Candace Grossman [facility] 07/28/2019 Findings Encounter Date Body mass index Nurse Visit with Candace Grossman CN P 08/19/2019 Diabetes Risk Test Score was 0 score 08/19/2019 Nurse Visit with Candace Grossman [facility] 08/19/2019 Generalized anxiety disorder Establis hed Patient with Bobbi Colon [facility] 07/28/2019 Severe recurrent major depre 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 features Established Patient with Bobbi Colon [facility] 07/28/2019 AUDIT alcohol use disorders identification test was six 07/28/2019 Medical New Patient with Candace Grossman [facility] 07/28/2019 Diabetes Risk Test Score was 0 score 07/28/2019 Medical New Patient with Candace Grossman [facility] 07/28/2019 ZAN-7 score was 21 07/28/2019 Medical Ne w Patient with Candace Grossman [facility] 07/28/2019 PHQ-9: total score was 21 07/28/2019 Med ica New Patient with Candace Grossman [facility] 07/28/2019 Z68.22 - Body mass index (BM I) 22.0-22.9 adult Medical New Patient with Candace Grossman [facility] 07/28/2019 Findings Encounter Date Overweight Women's Health with Candace Grossman [facility] 05/03/2020 Z68.24 - Body mass index (BM I) 24.0-24.9, adult Women's Health with Candace Grossman [facility] 05/03/2020 Visit for: contraceptive management Women's Heal th with Linnea Escobar [facility] 04/08/2020 Z68.24 - Body mass index (BM I) 24.0-24.9, adult Women's Health with Linnea Luz [facility] 04/08/2020 Depressive disorder Telebehavioral He alth with Emilee Short [facility] 03/29/2020 Generalized anxiety disorder Telebeha visolon Health with Emilee Short [facility] 03/29/2020 Dysthymic disorder Established Patie nt with Bobbi Colon [facility] 10/14/2019 Generalized anxiety disorder Establis hed Patient with Bobbi Colon [facility] 10/14/2019 Z68.24 - Body mass index (BM I) 24.0-24.9 adult Medical Established Patient with Candace Grossman [employer] [employer] [facility] 10/14/2019 F34.1 - Dysthymic disorder BH Establishe d Patient with Bobbi Colon [facility] 09/04/2019 Generalized anxiety disorder BH Establis hed Patient with Bobbi Colon [facility] 09/04/2019 Body mass index Medical Established Patient with Candace Grossman [employer] [facility] 09/04/2019 Diabetes Risk Test Score was 0 score 09/04/2019 Medical Established Patient with Candace Grossman [employer] [facility] 09/04/2019 Body mass index Nurse Visit with Candace Grossman CN P 08/19/2019 Diabetes Risk Test Score was 0 score 08/19/2019 Nurse Visit with Candace Grossman [employer] 08/19/2019 Generalized anxiety disorder BH Establis hed Patient with Bobbi Colon [facility] 07/28/2019 Severe recurrent major depre 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 features BH Established Patient with Bobbi Colon [facility] 07/28/2019 AUDIT alcohol use disorders identification test was six 07/28/2019 Medical New Patient with Candace Grossman [employer] [facility] 07/28/2019 Diabetes Risk Test Score was 0 score 07/28/2019 Medical New Patient with Candace Grossman [employer] 07/28/2019 ZAN-7 score was 21 07/28/2019 Medical Ne w Patient with Candace Grossman [employer] [facility] 07/28/2019 PHQ-9: total score was 21 07/28/2019 Med ical New Patient with Candace Grossman [employer] [facility] 07/28/2019 Z68.22 - Body mass index (BM I) 22.0-22.9 adult Medical New Patient with Candace Grossman [facility] [employer] [facility] 07/28/2019 Instructions Instructions not supported for this [...] and content) DATE CREATED AUTHOR 03/26/2018 [facility] DATE CREATED AUTHOR AUTHOR'S LOR PINA 05/07/2020 [facility] DATE CREATED AUTHOR AUTHOR'S ORGANIZ ATION 02/10/2023 [facility] DATE CREATED AUTHOR AUTHOR'S ORGANIZ ATION 03/28/2023 [facility] DATE CREATED AUTHOR AUTHOR'S ORGANIZ ATION 12/18/2023 [facility] DATE CREATED AUTHOR AUTHOR'S ORGANIZ ATION [facility]/20[facility] DATE CREATED AUTHOR AUTHOR'S ORGANIZ ATION 01/27/2024 [facility] DATE CREATED AUTHOR AUTHOR'S ORGANIZ ATION 02/14/2024 [facility] DATE CREATED AUTHOR AUTHOR'S ORGANIZ ATION 03/11/2024 [facility] DATE CREATED AUTHOR AUTHOR'S ORGANIZ ATION 03/13/2024 [facility] Evaluations & Outcomes (unre cognized [...] (HCC) Procedures CONSULT TO MATERNAL MEDI OFFICE/OUTPATIENT [facility] 60 MINUTES Fransico Sharp MD [address] [place] [address] Referral ID Status Reason Start Date Expiration Date V isits Requested Visits Authorized [id number] Closed PCP Requested Referral Auto-Generated Referral 01/04/2024 01/03/2025 1 1 Reason Comments Scans Reason Comments Results - Ct Patient Update Reason Comments Surgery Cancelled Appointment Reason Comments Results Reason Comments melanoma in Reason Comments path requested Care Teams (unrecognized sec tion and content) Team Status: Inactive Member Role Status Dates ESTELITA SpannC Attending Provider Active Team Status: Active Member Role Status Dates NON STAFF Primary Care Provider Active Team Status: Inactive Member Role Status Dates Karan Romero MD Attending Provider Active NON STAFF Primary Care Provider Active Plumbing Designer Relationship Specialty Start Date End Date Freddie Delgado APRN-CNP PCP - General Nurse Practitioner 07/30/23 Plumbing Designer Relationship Specialty Start Date End Date Freddie Delgado APRN-CNP PCP - General Nurse Practitioner 07/30/23 Plumbing Designer Relationship Specialty Start Date End Date Freddie Delgado APRN-CNP PCP - General Nurse Practitioner 07/30/23 Plumbing Designer Relationship Specialty Start Date End Date Freddie Delgado APRN-CNP PCP - General Nurse Practitioner 07/30/23 Plumbing Designer Relationship Specialty Start Date End Date Freddie Delgado APRN-CNP PCP - General Nurse Practitioner 07/30/23 Plumbing Designer Relationship Specialty Start Date End Date Freddie Delgado APRN-CNP PCP - General Nurse Practitioner 07/30/23 Plumbing Designer Relationship Specialty Start Date End Date Freddie Delgado APRN-CERTIFIED PROCEDURAL CODER PCP - General Nurse Practitioner 07/30/23 Plumbing Designer Relationship Specialty Start Date End Date Freddie Delgado [address] [place] [address] PCP - General Family Medicine 12/19/23 Plumbing Designer Relationship Specialty Start Date End Date Freddie Delgado [address] [place] [address] PCP - General Family Medicine 12/19/23 Plumbing Designer Relationship Specialty Start Date End Date Freddie Delgado [address] [place] [address] PCP - General Family Medicine 12/19/23 Plumbing Designer Relationship Specialty Start Date End Date Freddie Delgado [address] [place] [address] PCP - General Family Medicine 12/19/23 Plumbing Designer Relationship Specialty Start Date End Date Freddie Delgado [address] [place] [address] PCP - General Family Medicine 12/19/23 Plumbing Designer Relationship Specialty Start Date End Date Freddie Delgado [address] [place] [address] PCP - General Family Medicine 12/19/23 Plumbing Designer Relationship Specialty Start Date End Date Freddie Delgado [address] [place] [address] PCP - General Family Medicine 12/19/23 Plumbing Designer Relationship Specialty Start Date End Date Freddie Delgado [address] [place] [address] PCP - General Family Medicine 12/19/23 Plumbing Designer Relationship Specialty Start Date End Date Freddie Delgado [address] [place] [address] PCP - General Family Medicine 12/19/23 Plumbing Designer Relationship Specialty Start Date End Date Freddie Delgado [address] [place] [address] PCP - General Family Medicine 12/19/23 Plumbing Designer Relationship Specialty Start Date End Date Freddie Delgado [address] [place] [address] PCP - General Family Medicine 12/19/23 Plumbing Designer Relationship Specialty Start Date End Date Freddie Delgado [address] [place] [address] PCP - General Family Medicine 12/19/23 Plumbing Designer Relationship Specialty Start Date End Date Freddie Delgado PRADEEP Jones [address] [place] [address] PCP - General Family Medicine 12/19/23 Plumbing Designer Relationship Specialty Start Date End Date Kristin Delgadora Adrian CNP [address] [place] [address] PCP - General Family Medicine 12/19/23 Plumbing Designer Relationship Specialty Start Date End Date Freddie Delgado PRADEEP Jones [address] [place] [address] PCP - General Family Medicine 12/19/23 Plumbing Designer Relationship Specialty Start Date End Date Freddie Delgado CNP [address] [place], [place] [id number] PCP - General Family Medicine 12/19/23 Goals [...] or prosecute any alcohol or drug abuse patient.[facility] Center[facility] the event this information is protected by the Federal Confidentiality of Alcohol and Drug Abuse Patient Records regulations: The Federal rules restrict any use of the information to criminally investigate or prosecute any alcohol or drug abuse patient.[facility] Center[facility] the event this information is protected by the Federal Confidentiality of Alcohol and Drug Abuse Patient Records regulations: The Federal rules restrict any use of the information to criminally investigate or prosecute any alcohol or drug abuse patient.[facility] Center[facility] the event this information is protected by the Federal Confidentiality of Alcohol and Drug Abuse Patient Records regulations: The Federal rules restrict any use of the information to criminally investigate or prosecute any alcohol or drug abuse patient.[facility] CenterIn the event this information is protected by the Federal Confidentiality of Alcohol and Drug Abuse Patient Records regulations: The Federal rules restrict any use of the information to criminally investigate or prosecute any alcohol or drug abuse patient.[facility] CenterIn the event this information is protected by the Federal Confidentiality of Alcohol and Drug Abuse Patient Records regulations: The Federal rules restrict any use of the information to criminally investigate or prosecute any alcohol or drug abuse patient.[facility] CenterIn the event this information is protected by the Federal Confidentiality of Alcohol and Drug Abuse Patient Records regulations: The Federal rules restrict any use of the information to criminally investigate or prosecute any alcohol or drug abuse patient.[facility] CenterIn the event this information is protected by the Federal Confidentiality of Alcohol and Drug Abuse Patient Records regulations: The Federal rules restrict any use of the information to criminally investigate or prosecute any alcohol or drug abuse patient.[facility] CenterIn the event this information is protected by the Federal Confidentiality of Alcohol and Drug Abuse Patient Records regulations: The Federal rules restrict any use of the information to criminally investigate or prosecute any alcohol or drug abuse patient.[facility] CenterIn the event this information is protected by the Federal Confidentiality of Alcohol and Drug Abuse Patient Records regulations: The Federal rules restrict any use of the information to criminally investigate or prosecute any alcohol or drug abuse patient.[facility] CenterIn the event this information is protected by the Federal Confidentiality of Alcohol and Drug Abuse Patient Records regulations: The Federal rules restrict any use of the information to criminally investigate or prosecute any alcohol or drug abuse patient.[facility] CenterIn the event this information is protected by the Federal Confidentiality of Alcohol and Drug Abuse Patient Records regulations: The Federal rules restrict any use of the information to criminally investigate or prosecute any alcohol or drug abuse patient.[facility] CenterIn the event this information is protected by the Federal Confidentiality of Alcohol and Drug Abuse Patient Records regulations: The Federal rules restrict any use of the information to criminally investigate or prosecute any alcohol or drug abuse patient.[facility] CenterIn the event this information is protected by the Federal Confidentiality of Alcohol and Drug Abuse Patient Records regulations: The Federal rules restrict any use of the information to criminally investigate or prosecute any alcohol or drug abuse patient.[facility] CenterIn the event this information is protected by the Federal Confidentiality of Alcohol and Drug Abuse Patient Records regulations: The Federal rules restrict any use of the information to criminally investigate or prosecute any alcohol or drug abuse patient.[facility] CenterIn the event this information is protected by the Federal Confidentiality of Alcohol and Drug Abuse Patient Records regulations: The Federal rules restrict any use of the information to criminally investigate or prosecute any alcohol or drug abuse patient.[facility] CenterIn the event this information is protected by the Federal Confidentiality of Alcohol and Drug Abuse Patient Records regulations: The Federal rules restrict any use of the information to criminally investigate or prosecute any alcohol or drug abuse patient.[facility] CenterIn the event this information is protected by the Federal Confidentiality of Alcohol and Drug Abuse Patient Records regulations: The Federal rules restrict any use of the information to criminally investigate or prosecute any alcohol or drug abuse patient.[facility] FOR RECORDS PERTAINING TO PATIENTS [...] BE BASED ON THE PRIMARY CLINICAL RECORDS. [facility]. provides no warranty or guarantee of the accuracy or completeness of information in this document.
[2024-03-13 14:58] VITALS: BP 126/65; PULSE 100
== END 2024-03-13 15:22 | disposition home or self-care (01) ==
LOC: FBCO 07:23 → FBC 14:53
PROVIDERS: Visit Provider Obstetrics & Gynecology
DX: O36.63X0 Maternal care for excessive fetal growth, third trimester, not applicable or unspecified (principal)
CPT/HCPCS: 59025

== ENCOUNTER 2024-03-17 06:58 | Outpatient (OUT) | payer MEDICAID, SELFPAY ==
--- OUTSIDE RECORDS SUMMARY | 2024-03-17 07:02 | XMS_ITS ---
Patient Summarization (C-CDA 2.1 CCD) Created on: March 17, 2024 Vy Mckeon : 1990 Sex: Female Author Organization Sample organization Care Team Providers Care Wood Strip Block Floor Installer Name Role Phone Gehlot, Upender Unavailable Unavailable Gehlot, Upender Unavailable Unavailable EMPERATRIZ CERNA Unavailable Unavailable Sally Morejon Primary Care Provider [phone] Unavailable Primary Care Provider UnavailCANDACE Dubon Referring Unavailable Sally Morejon Primary Care Provider Sally Morejon CNP Primary Care Provider [phone] Shayla Valle Unavailable JUMANA Valle Attending Provider AICHHOLZ, BROOCH AND BRACELET MAKER VITO Admitting Unavailable AICHHOLZ, BROOCH AND BRACELET MAKER VITO Attending Unavailable AICHHOLZ, BROOCH AND BRACELET MAKER VITO Primary Care Unavailable AICHHOLZ, BROOCH AND BRACELET MAKER VITO Consulting Unavailable NORMA ., DR JIN Admitting Unavailable NORMA ., DR JIN Attending Unavailable AICHHOLZ, BROOCH AND BRACELET MAKER VITO Primary Care Unavailable NORMA ., DR JIN Consulting Unavailable ZIEBDEANNE, DR BOBBI Bianchi Consulting Unavailable NORMA ., DR JIN Admitting Unavailable NORMA ., DR JIN Attending Unavailable AICHHOLZ, BROOCH AND BRACELET MAKER VITO Primary Care Unavailable NORMA ., DR JIN Consulting Unavailable ZIEBER, DR BOBBI Bianchi Consulting Unavailable NORMA ., DR JIN Admitting Unavailable NORMA ., DR JIN Attending Unavailable AICHHOLZ, BROOCH AND BRACELET MAKER VITO Primary Care Unavailable NORMA ., DR JIN Consulting Unavailable AICHHOLZ, BROOCH AND BRACELET MAKER VITO Admitting Unavailable AICHHOLZ, BROOCH AND BRACELET MAKER VITO Attending Unavailable AICHHOLZ, BROOCH AND BRACELET MAKER VITO Primary Care Unavailable NORMA ., DR JIN Admitting Unavailable NORMA ., DR JIN Attending Unavailable AICHHOLZ, BROOCH AND BRACELET MAKER VITO Primary Care Unavailable NORMA ., DR JIN Consulting Unavailable NORMA ., DR JIN Admitting Unavailable NORMA ., DR JIN Attending Unavailable AICHHOLZ, BROOCH AND BRACELET MAKER VITO Primary Care Unavailable NORMA ., DR JIN Consulting Unavailable AGUBWADE HORTON Consulting Unavailable SOFI XIAO Consulting Unavailable NORMA ., DR JIN Admitting Unavailable NORMA ., DR JIN Attending Unavailable AICHHOLZ, BROOCH AND BRACELET MAKER VITO Primary Care Unavailable NORMA ., DR JIN Consulting Unavailable AICHHOLZ, BROOCH AND BRACELET MAKER VITO Admitting Unavailable AICHHOLZ, BROOCH AND BRACELET MAKER VITO Attending Unavailable AICHHOLZ, BROOCH AND BRACELET MAKER VITO Primary Care Unavailable WEST, DR JO-ANN Nicolas Consulting Unavailable AICHHOLZ, BROOCH AND BRACELET MAKER VITO Consulting Unavailable Yoel Jarrett Unavailable MD Karan Romero Attending Provider NON STAFF Primary Care Provider Unavailabl e NON STAFF Primary Care Unavailable Karan Romero Attending Unavailabl e Karan Romero Admitting Unavailabl e Shayla Valle Attending Unavailable Shayla Valle Admitting Unavailable Delgado EDUCATION FINANCE PROCESSOR-BROOCH AND BRACELET MAKER, Freddie Primary Care Provider Unavailable Primary Care Provider Unavailabl e DELGADO, FREDDIE Attending Unavailable DELGADO, FREDDIE Referring Unavailable DELGADO, FREDDIE Primary Care Unavailable ROJAS, FIDENCIO Attending Unavailable DELGADO, FREDDIE Referring Unavailable DELGADO, FREDDIE Primary Care Unavailable Delgado, Freddie Primary Care Provider [phone] GURJIT ROBIN Attending Unavailable DELGADO, FREDDIE Referring [...] Unavailable DELGADO, FREDDIE Primary Care Unavailable Delgado BROOCH AND BRACELET MAKER, Freddie Adrian Primary Care Provid er NORMA, ELIAZAR Attending Unavailable BRONWYN, DIONNE Attending Unavailable NORMA, ELIAZAR Attending Unavailable NORMA, ELIAZAR Attending Unavailable BRONWYN, DIONNE Attending Unavailable ONRMA, ELIAZAR Attending Unavailable NORMA, ELIAZAR Attending Unavailable [...] (1 source) Penicillins Drug Allergy 2 Unknown [facility] (13 sources) Penicillins (Antibiotic) Allergy to substance 9 [facility] Work Phone: (8 sources) [facility] (6 sources) Penicillin G Drug Allergy 3 [facility] Work Phone: (1 source) Penicillin Drug Allergy [facility] Repository (6 sources) Penicillins; Translations: [PENICILLINS] Drug allergy (disorder) 2 [facility] Repository (20 sources) Penicillins Propensity to adverse reactions to drug 2 Other (See Comments), Unknown [facility] (3 sources) Penicillins Drug Allergy Unknown [facility] Encounters Encounter Date Encounter Type Care Provider [...] Start: 02-22-2024 End: 02-22-2024 ambulatory USMAN GOLDBERG Facility:[facility] Start: 02-20-2024 End: 02-20-2024 ambulatory FREDDIE DELGADO Facility:[facility] Start: 02-13-2024 End: 02-15-2024 ambulatory [facility] Start: 02-11-2024 End: 02-11-2024 ambulatory ELIAZAR NORMA Not Available Start: 01-29-2024 End: 01-29-2024 ambulatory CANDACE MORAN [facility] Start: 01-28-2024 End: 01-28-2024 ambulatory DIONNE XIAO [...] Appointment Start: 01-14-2024 End: 01-14-2024 ambulatory [facility] Start: 01-10-2024 Telephone encounter [...] procedure Fransico Sharp MD Work Phone: [facility] Start: 12-26-2023 End: 12-27-2023 ambulatory USMAN GOLDBERG Facility:[facility] Start: 12-21-2023 Chart abstracting Usman rincon MD Work Phone: Hematology/Oncology Start: 12-17-2023 End: 12-17-2023 ambulatory [facility] Start: 12-17-2023 End: 12-17-2023 Office outpatient visit 10 minutes [facility] EDUCATION FINANCE PROCESSOR-BROOCH AND BRACELET MAKER Work Phone: [facility] Comment on above: Nausea and vomiting, unspecified vomiting type (Primary Dx); Psychophysiological insomnia Start: 12-10-2023 End: 12-10-2023 ambulatory ELIAZAR NORMA Not Available Start: 12-07-2023 Documentation procedure Chris Antonio [facility] Work Phone: [facility] Comment on above: Outgoing Ca ll Start: 11-20-2023 End: 11-21-2023 Orders Only Roshni Rodriguez RN [facility] Comment on above: Placenta previa ante in second trimester (Primary Dx); Multigravida of advanced maternal age in second trimester Start: 11-20-2023 End: 11-20-2023 Office outpatient visit 15 minutes Fidencio Rojas MD Work Phone: [facility] [place] Comment on above: 20 weeks gestation o f (Primary Dx); Placenta previa antepartum in second trimester; Advanced maternal age in multigravida, second trimester Start: 11-13-2023 Orders Only Juan Ramon Sultana r[facility]- [facility] at [facility] Comment on above: Multigravida of adva nced maternal age in second trimester; Family history of autism; Family history of mental disorder Start: 11-12-2023 Documentation procedure Chris Antonio LC Work Phone: [facility]- [facility] Comment on above: Outgoing Ca ll [...] intractable Start: 11-12-2023 End: 11-12-2023 ambulatory DIONNE XIAO Not Available Start: 10-29-2023 Documentation procedure Chris Antonio LC Work Phone: [facility]aternal- Medicine [facility] Comment on above: Incoming Ca ll Start: 10-23-2023 Orders Only Angela Guzman [facility] ernal- Medicine at [facility] Comment on above: Multigravida of adva nced maternal age in second trimester (Primary Dx); Family history of autism; Family history of mental disorder Start: 10-22-2023 End: 10-22-2023 ambulatory [facility]AR [facility] Start: 10-22-2023 End: 10-22-2023 Telemedicine consultation with patient Katarina BLISS Work Phone: [facility]- [facility] Comment on above: Multigravida of adva nced maternal age in second trimester (Primary Dx); Family history of autism; Family history of mental disorder Start: 10-08-2023 End: 10-08-2023 ambulatory ELIAZAR NORMA Not Available Start: 08-30-2023 End: 08-30-2023 ambulatory ELIAZAR NORMA Not Available Start: 05-29-2023 End: 05-29-2023 ambulatory Shayla Valle Other [employer] Other Start: 05-29-2023 Office outpatient vi sit 15 minutes Shayla Valle [facility] Start: 03-19-2023 End: 03-19-2023 ambulatory NON STAFF Facility:[facility] Start: 03-19-2023 End: 03-19-2023 Admission to same day surgery center FAMILY HELPER-C Shayla Valle Work Phone: [facility] Work Phone: Start: 03-19-2023 End: 03-19-2023 ambulatory NON STAFF [facility] Work Phone: Start: 02-12-2023 End: 02-12-2023 ambulatory Yoel Jarrett Other [facility] Other Start: 02-12-2023 Office outpatient ne w 30 minutes Yoel Jarrett [facility] Start: 02-09-2023 End: 02-10-2023 ambulatory PRADEEP COULTER Facility:[facility] Start: 02-07-2023 Office outpatient ne w 20 minutes Shayla Valle [facility] Start: 02-07-2023 End: 02-07-2023 ambulatory [facility] Valle [facility] Other Start: 02-07-2023 End: 02-07-2023 Patient encounter procedure FAMILY HELPER-C Shayla Valle Work Phone: [facility] Work Phone: [...] preprocedural laboratory examination DR ELIAZAR CASTANEDA . [facility] Start: 05-19-2022 End: 05-20-[address] ELIAZAR CASTANEDA . Facility:[facility] Start: 05-19-2022 End: 05-20-2022 Encounter for preprocedural laboratory examination DR ELIAZAR CASTANEDA . Facility:[facility] Start: 05-18-2022 End: 05-19-[address] ELIAZAR CASTANEDA . Facility:[facility] Start: 05-03-2022 End: 05-04-[address] ELIAZAR CASTANEDA . Facility:[facility] Start: 05-03-2020 End: 05-03-2020 ambulatory Candace Grossman Work Phone: [facility] Work Phone: Start: 05-03-2020 End: 05-04-2020 Patient encounter procedure CANDACE GROSSMAN [facility] Start: 05-03-2020 End: 05-03-2020 Subsequent hospital visit by physician [facility] Start: 04-08-2020 End: 04-08-2020 ambulatory Linnea Escobar Work Phone: [facility] Work Phone: Start: 03-29-2020 End: 03-29-2020 General Emilee Short Work Phone: [facility] Work Phone: Start: 03-29-2020 End: 03-29-2020 Telemedicine consultation with patient Candace Grossman Work Phone: [facility] Work Phone: Start: 01-08-2020 End: 01-08-2020 Telemedicine consultation with patient Candace Grossman Work Phone: [facility] Work Phone: Start: 12-30-2019 End: 12-30-2019 Patient encounter procedure Emilee Short Work Phone: [facility] Work Phone: Start: 12-30-2019 End: 12-30-2019 Telemedicine consultation with patient Candace Grossman Work Phone: [facility] Work Phone: Start: 10-14-2019 End: 10-14-2019 Established patient Bobbi Colon Work Phone: [facility] Work Phone: Start: 09-04-2019 End: 09-04-2019 Established patient Bobbi Colon Work Phone: [facility] Work Phone: Start: 08-19-2019 End: 08-19-2019 Nursing evaluation of patient and report Candace Grossman Work Phone: [facility] Work Phone: Start: 07-28-2019 End: 07-28-2019 Established patient Bobbi Colon Work Phone: [facility] Work Phone: Start: 07-28-2019 End: 07-28-2019 New patient Candace Grossman Work Phone: [facility] Work Phone: Start: 08-13-2017 End: 08-14-2017 [facility] Goals Date Patient Goal Desired Activity /State Personal health goal Immunizations Immunization Date Immunization Notes Care Provider Maryuri gómez 05-11-2023 influenza virus vaccine, unspecified formulation Katarina Antonio [facility] Work Phone: [facility] 07-16-2022 SARS-COV-2 (COVID-19 ) vaccine, mRNA, spike protein, LNP, bivalent, PF Dionne BRAN Work Phone: [facility] 01-24-2018 tetanus toxoid, redu cam[place] diphtheria toxoid, and acellular pertussis vaccine, adsorbed Dionne BRAN Work Phone: [facility] Medications Current Medications Medication Drug Class(es) Dates Sig (Normalized) Sig (Original) [id number] 200 actuat albuterol 0.09 mg/actuat metered dose [...] 25 mg oral tablet (1 source) Start: 03-18-2024 take 1 tablet by mouth once daily [...] Take 400 mg by mouth . nystatin [id number] unt/ml oral suspension (1 source) Polyene Antifungal Start: 05-29-2023 take 5 mL by mouth three times daily Nystatin [id number] UNIT/ML 5 ml Mouth/Throat 3 times a [...] 16, 2023 12:00am omeprazole magne sium (ACID SOLUTION STRATEGIST, OMEPRAZOLE, ORAL) Take by mouth as directed. [...] above: Take by mouth as dir ected. [id number]-qfey-izarn- omega3 29-1-400 mg combo pack,tablet & capDR (9 sources) kygqshks72-aazj- folic -omega3 29-1-400 mg combo pack,tablet & [...] mg/ml oral solution (4 sources) Phenothiazine, Uncompetitive M-vulzyj-X-aspartat e Receptor Antagonist, Sigma-1 Agonist Start: 01-08-2020 [...] as needed Orally Twice a day Not-Taking Payers Date Payer Category Payer Self-pay 2022 Medicaid [id number] 2019 Unknown 1 - [place] [facility] [id number] [id number] 2017 Unknown [id number] 1988 Unknown [id number] 2.16.84 0.1.406437.3.579.2.593 1988 Unknown [id number] 2.16.84 0.1.767580.3.579.2.593 1988 Unknown [id number] 2.16.84 0.1.335995.3.579.2.593 1988 Unknown [id number] 2.16.84 0.1.133092.3.579.2.593 1988 Unknown [id number] 2.16.84 0.1.216892.3.579.2.593 1988 Unknown [id number] 2.16.84 0.1.923655.3.579.2.593 1988 Unknown [id number] 2.16.84 0.1.946529.3.579.2.593 1988 Unknown [id number] 2.16.84 0.1.020020.3.579.2.593 1988 Unknown [id number] 2.16.84 0.1.515570.3.579.2.593 1988 Unknown [id number] 2.16.8 40.1.876123.3.579.2.1285 1988 Unknown [id number] 2.16.8 40.1.562801.3.579.2.1285 1988 Unknown [id number] 2.16.8 40.1.162876.3.579.2.1285 1988 Unknown [id number] 2.16.8 40.1.209304.3.579.2.1285 1988 Unknown [id number] 2.16.8 40.1.253353.3.579.2.1285 1988 Unknown [id number] 2.16.84 0.1.767488.3.579.2.1285 1988 Unknown [id number] 2.16.8 40.1.398876.3.579.2.1285 1988 Unknown [id number] 2.16.8 40.1.115841.3.579.2.1285 1988 Unknown [id number] 2.16.8 40.1.731514.3.579.2.6 1988 Unknown [id number] 2.16.84 0.1.778642.3.579.2.9 1988 Unknown [id number] 2.16.84 0.1.886953.3.579.2.9 1988 Unknown [id number] 2.16.84 0.1.808137.3.579.2.1258 1988 Unknown [id number] 2.16.84 0.1.556180.3.579.2.1258 1988 Unknown [id number] 2.16.84 0.1.811832.3.579.2.1258 1988 Unknown [id number] 2.16.84 0.1.654880.3.579.2.9 1988 Unknown [id number] 2.16.84 0.1.943457.3.579.2.1258 1988 Unknown [id number] 2.16.84 0.1.905375.3.579.2.1258 1988 Unknown [id number] 2.16.84 0.1.255132.3.579.2.1258 1988 Unknown [id number] 2.16.840 .1.767336.3.579.2.1259 1959 Medicaid [id number] 2. 16.840.1.041803.19 Self-pay [id number] 2.16.840 .1.450200.3.140.1.86538.5.4 Unknown [facility] [id number] Unknown [id number] 2.16.8 40.1.347538.3.579.2.531 Unknown [id number] 2.16.8 40.1.471195.3.579.2.531 Plan of Treatment Date Care Activity Detail Author Start: 2048 RSV Vaccine (1 - 1-d ose 60+ series) RSV Vaccine (1 - 1-dose 60+ series) [facility] Start: 01-02-2034 Urine microalbumin profile DTaP,Tdap,Td Vaccine (7 - Td or Tdap) [facility] Start: 03-12-2028 Screening for malign ant neoplasm of cervix HPV/Cotest [facility] Start: 03-01-2028 Screening for malign ant neoplasm of cervix [facility] Start: 01-25-2028 DTaP,Tdap and Td Vaccines (6 - Td or Tdap) DTaP,Tdap and Td Vaccines (6 - Td or Tdap) [facility] Start: 01-25-2028 Urine microalbumin profile DTaP,Tdap,Td Vaccine (2 - Td or Tdap) [facility] Start: 12-16-2024 Adult BMI Screening Adult BMI Screen ing [facility] Start: 12-16-2024 Tobacco Screening Tobacco Screening [facility] Start: 10-23-2024 End: 10-23-2024 Unlisted Lab Test Unlisted Lab Test Lab Routine Multigravida of advanced maternal age in second trimester Family history of autism Family history of mental disorder Expected: 10/23/2024 (Approximate), Expires: 10/23/2024 [facility] [employer] Work Phone: Comment on above: Expected: 10/23/2024 (Approximate), Expires: 10/23/2024 Start: 09-10-2024 Adult BMI Screening Adult BMI Screen ing [facility] Start: 09-10-2024 Depression Screening Depression Scre ening [facility] Start: 09-10-2024 Tobacco Screening Tobacco Screening [facility] Start: 03-17-2024 End: 03-17-2024 Admission to same day surgery center 03/17/2024 11:30 AM EDT Visit (SP) Office Plastic Surgery [address] [place] [address] Tana Cervantes, EDUCATION FINANCE PROCESSOR.BROOCH AND BRACELET MAKER [address] [place], [place] [id number] post op Plastic Surgery Comment on above: [...] 10:45 AM EDT Hospital Encounter Admitting [address] [place] [address] Fransico Sharp MD [address] [place] [address] Malignant melanoma of skin (HCC) [C43.9] Admitting Comment on above: Malignant melanoma o f skin (HCC) [C43.9] Start: 03-14-2024 End: 03-14-2024 Patient encounter procedure 03/14/2024 8:30 AM EDT Appointment Molecular Imaging [address] [place] [address] MELANOMA-NM LYMPH NODE IMAGING [facility] Comment on above: MELANOMA-NM LYMPH NO DE IMAGING Start: 03-07-2024 End: 03-07-2024 Anesthesia consultation 03/07/2024 1:20 PM EDT PAT Pre Anesthesia [address] [place] [address] 9, Pacc Main [address] [place] [address] pacc Pre Anesthesia Comment on above: pacc Start: 03-06-2024 End: 03-06-2024 Patient encounter procedure 03/06/2024 8:00 AM EDT [facility]aternal [facility] [address] [address] [place] [address] [place] [address] Consult Maternal Medicine Comment on above: Consult Start: 02-22-2024 End: 02-22-2024 Patient encounter procedure 02/22/2024 10:45 AM EDT Appointment Radiology Pet CT [address] [place] [address] ct chest and stn w Radiology Pet CT Comment on above: ct chest and stn w Start: 02-20-2024 End: 02-20-2024 ambulatory 02/20/2024 3:00 PM EDT Results Only [facility] [address] [place] [address] [facility] Start: 02-20-2024 End: 01-22-2025 CBC W Auto Differential panel - Blood COMPLETE BLOOD COUNT AND DIFFERENTIAL Lab Routine Malignant melanoma of skin (HCC) Expected: 02/20/2024 (Approximate), Expires: 01/22/2025 [facility] Comment on above: Expected: 02/20/2024 (Approximate), Expires: 01/22/2025 Start: 02-20-2024 End: 01-22-2025 Comprehensive metabolic 2000 panel - Serum or Plasma COMPREHENSIVE METABOLIC PANEL Lab Routine Malignant melanoma of skin (HCC) Expected: 02/20/2024 (Approximate), Expires: 01/22/2025 [facility] Comment on above: Expected: 02/20/2024 (Approximate), Expires: 01/22/2025 Start: 02-20-2024 End: 02-21-2025 CT Chest W contrast IV CT CHEST W IVCON Radiology Routine Malignant melanoma of skin (HCC) Expected: 02/20/2024 (Approximate), Expires: 02/21/2025 [facility] Comment on above: Expected: 02/20/2024 (Approximate), Expires: 02/21/2025 Start: 02-20-2024 End: 02-21-2025 CT Neck W contrast IV CT NECK SOFT TISSUE W IVCON Radiology Routine Malignant melanoma of skin (HCC) Expected: 02/20/2024 (Approximate), Expires: 02/21/2025 [facility] Work Phone: Comment on above: Expected: 02/20/2024 (Approximate), Expires: 02/21/2025 Start: 02-20-2024 End: 01-22-2025 Lactate dehydrogenase [Enzymatic activity/volume] in Serum or Plasma LACTATE DEHYDROGENASE Lab Routine Malignant melanoma of skin (HCC) Expected: 02/20/2024 (Approximate), Expires: 01/22/2025 [facility] Comment on above: Expected: 02/20/2024 (Approximate), Expires: 01/22/2025 Start: 02-19-2024 Subsequent hospital visit by physician 02/19/2024 Hospital Encounter [facility] [address] [address] Fransico Sharp MD [address] [place] [address] Malignant melanoma of skin (HCC) [C43.9] Surgery [...] Start: 02-12-2024 End: 02-12-2024 Patient encounter procedure [facility] Comment on above: MELANOMA-NM LYMPH NO DE IMAGING Start: 01-14-2024 End: 01-14-2024 Telemedicine consultation with patient 01/14/2024 10:15 AM EDT [facility] [address] [place] [address] [address] [place] [address] [place] [address] [place] [address], [address] [place] [address] [facility] Start: 12-17-2023 End: 12-17-2023 Patient encounter procedure 12/17/2023 1:45 PM EDT Office Visit [facility] [address] [place] [phone] Freddie Delgado, EDUCATION FINANCE PROCESSOR-BROOCH AND BRACELET MAKER [address] [place] [phone] [facility] Start: 12-10-2023 End: 12-10-2023 Patient encounter procedure 12/10/2023 2:20 PM EDT Routine [facility] [address] [place] [address] Eliazar Castaneda, [address] [place] [address] [facility] Start: 11-20-2023 End: 11-20-2023 Patient encounter procedure 11/20/2023 8:00 AM EST Appointment [facility] [address] [place] [address] [facility] Start: 11-12-2023 End: 11-12-2024 US for US OB ANATOMY SINGLE W US OB CERVICAL LENGTH Imaging Routine Screening, , for anatomic survey Expected: 11/12/2023 (Approximate), Expires: 11/12/2024 [facility] Comment on above: Expected: 11/12/2023 (Approximate), Expires: 11/12/2024 Start: 10-01-2023 Behavioral Health Screening Behavioral Health Screening [facility] Start: 10-01-2023 Depression Assessment Depression Ass essment [facility] Start: 06-01-2023 Covid-19 Vaccine ( season) Covid-19 Vaccine () [facility] Start: 06-01-2023 Influenza vaccination P [facility] Start: 05-03-2023 Screening for malign ant neoplasm of cervix Pap Smear [facility] Start: 03-19-2023 [facility] Start: 06-02-2020 Health Par [facility] Work Phone: Start: 06-01-2020 Influenza vaccination Flu vaccine (# 1) [place], [place] Start: 12-02-2019 Dental Comp Exam [facility] Work Phone: Start: 11-17-2019 [facility] Work Phone: Start: 10-21-2019 Lipid 1996 panel [facility] Work Phone: Start: 10-14-2019 [facility] Work Phone: Comment on above: Note: Please make a referral to: Start: 09-16-2019 Dental Comp Exam [facility] Work Phone: Start: 08-25-2019 Medical Establ ished Patient [facility] Work Phone: Start: 08-20-2019 Urine Pregnanc y Test, In House [facility] Work Phone: Start: 2018 Screening for malign ant neoplasm of cervix HPV Testing [facility] Start: 2009 Screening for malign ant neoplasm of cervix [facility] Start: 2007 DTaP/Tdap/Td vaccine (1 - Tdap) DTaP/Tdap/Td vaccine (1 - Tdap) [place], [place] Start: 2007 Hepatitis B Vaccine (1 of 3 - 19+ 3-dose series) Hepatitis B Vaccine (1 of 3 - 19+ 3-dose series) [facility] Start: 2006 Adult BMI Follow Up Plan Adult BMI Follow Up Plan [facility] Start: 2006 Annual PCP Team [place] Fitter lorne Disease Visit Annual PCP Team Chronic Disease Visit [facility] Start: 2006 Hepatitis C screening Hepatitis C Sc reening [facility] Start: 2006 HIV screening HIV Screening [facility] Start: 2006 Spirometry Spirometry [facility] Start: 2003 HIV screening HIV screen [facility] [place] Start: 1989 Varicella vaccine (1 of 2 - 2-dose childhood series) Varicella vaccine (1 of 2 - 2-dose childhood series) [place], [place] Adjt tis trns/reargm t f/c/c/m/n/a/g/h/f 10sqcm/< TRANSFER / REARRANGEMENT ADJACENT TISSUE FACE/NECK DEFECT 10 SQ CM OR LESS Malignant melanoma of skin (HCC) [facility] A60 Alpha fetoprotein, maternal Alpha fetoprotein, maternal Lab Routine Second trimester Ordered: 11/12/2023 [facility] Work Phone: Comment on above: Ordered: 11/12/2023 Bx/exc lymph node op en deep cervical node BIOPSY NODE CERVICAL NECK Malignant melanoma of skin (HCC) [facility] A60 End: 05-03-2020 C.trachomatis N.gonorrhoeae DNA, Thin Prep C.trachomatis N.gonorrhoeae DNA, Thin Prep Microbiology Routine Once for 1 Occurrences starting 05/03/2020 until 05/03/2020 [place], [place] Comment on above: Once for 1 Occurrenc es starting 05/03/2020 until 05/03/2020 C.trachomatis N.gonorrhoeae DNA, Thin Prep C.trachomatis N.gonorrhoeae DNA, Thin Prep Microbiology Routine 05/03/2020 7:32 AM EDT [place], [place] Excision malignant lesion f/e/e/n/l >4.0 cm [...] (HCC) 1 Occurrences starting 01/06/2024 until 02/02/2025 [facility] Work Phone: Comment on above: 1 Occurrences starti ng 01/06/2024 until 02/02/2025 Patient Education Hiatal Hernia (DC) [facility] Work Phone: [facility] P[facility] A60 Problems Active Problems Problem Classification Problem Date [...] Onset: 05-26-2022 Chronic Other conditions (1 source) [place] affected by other morphological and functional abnormalities of placenta; Translations: [[place] affected by other morphological and functional abnormalities [...] Translations: [Visit For: Contraceptive Management] Onset: 04-08-2020 Procedures Date Procedure Procedure Detail Performing Clinician Start: 01-21-2024 Us preg uterus after 1st trimest 10/01 gestation Ana Peoples MD Work Phone: Start: 11-12-2023 Urnls dip stick/tabl et rgnt non-auto w/o micrscp Dionne BRAN Work Phone: Start: 11-12-2023 URETHRITIS/DISCHARGE PLUS VAGINITIS (HTRX) Dionne BRAN Work Phone: Start: 10-25-2023 UNLISTED LAB TEST Miriam Antonio [facility] Work Phone: Start: 09-10-2023 Adult depression scr eening assessment Katarina Antonio [facility] Work Phone: Start: 03-19-2023 Esophagogastroduodenoscopy FAMILY HELPER-[employer] Shayla Valle Work Phone: Start: 03-01-2023 Microscopic observat ion [Identifier] in Cervix by Cyto stain Dionne BRAN Work Phone: Start: 02-07-2023 X-ray of right knee FAMILY HELPER- C Shayla Valle Work Phone: Start: 05-03-2020 Obtaining screen pap smear Candace Grossman Work Phone: Start: 05-03-2020 Iaad ia chlamydia trachomatis CANDACE GROSSMAN Start: 05-03-2020 Iadna diane specie s direct probe tq CANDACE GROSSMAN Start: 05-03-2020 Iadna diane specie s direct probe tq Candace Grossman Work Phone: Start: 05-03-2020 Microscopic observat ion [Identifier] in Cervix by Cyto stain Katarina Antonio [facility] Work Phone: Start: 04-08-2020 Diast bp [...] Use Disorders Identification Test ___(0-40) Candace Grossman [employer] Work Phone: Start: 07-28-2019 ANXIETY DISORDER NOS [...] has not occurred!Start: 07-28-2019 currently Sally Morejon Results Test Name Value Interpretation Reference Range Facility [facility] 03-11-2024 CNPN Telephone (PLASMN) VY MCKEON ([id number]) 1990 F Date Time Provider Department 03/11/24 [...] mg by mouth. - omeprazole magnesium (ACID SOLUTION STRATEGIST, OMEPRAZOLE, ORAL) Take by mouth as directed. [...] Encounter Status:Closed by WARD ORTA on 03/11/24 [facility] CNPRosa 03-04-2024 KIERAN Telephone (Environmental Support SolutionsMICHELLE) VY MCKEON ([id number]) 1990 F Date Time Provider Department 03/04/24 [...] mg by mouth. - omeprazole magnesium (ACID SOLUTION STRATEGIST, OMEPRAZOLE, ORAL) Take by mouth as directed. [...] Encounter Status:Closed by DAISY MURRAY on 03/05/24 [facility] Alina 02-29-2024 CNPN Telephone (PLASMN) VY MCKEON ([id number]) 1990 F Date Time Provider Department 02/29/24 [...] mg by mouth. - omeprazole magnesium (ACID SOLUTION STRATEGIST, OMEPRAZOLE, ORAL) Take by mouth as directed. [...] by SURJIT GRIGGS on 03/03/24 [facility]20[facility] VY [facility] ([id number]) 1990 F Date Time Provider Department 02/26/24 DAISY MURRAY During your visit today, we recorded the following information about you: Daisy Murray RN 02/26/2024 12:23 PM Signed Pt calling for CT results. She is aware Dr Deshpande is out of office this week and will be in touch with his response Sunday. Louisa: Please advise BRITNEY Hernandez Debbie [facility] 02/26/2024 12:45 PM Signed Patient calling. Doesn't [...] mg by mouth. - omeprazole magnesium (ACID SOLUTION STRATEGIST, OMEPRAZOLE, ORAL) Take by mouth as directed. [...] Status:Closed by SYLVIA ALCALA on 02/26/[address] [facility] CT CHEST W IVCONon CT CHEST W IVCON * * *Final Report* * * DATE OF EXAM: Feb 22 2024 11:19AM [facility] 0539 - CT CHEST W [...] abdomen: Visualized upper abdomen is grossly unremarkable. Buildings And Grounds Supervisor (topogram) images: Unremarkable. IMPRESSION: Focal groundglass opacity [...] any questions regarding this interpretation, please call [phone]. If you are unable to reach us at the number above, please feel free to contact [facility] at [phone]. [id number] N Normal [facility] CT NECK SOFT TISSUE W IVCONo n 02-22-2024 CT NECK SOFT TISSUE W IVCON * * *Final Report* * * DATE OF EXAM: Feb 22 2024 11:19AM [facility] 0013 - CT NECK SOFT [...] amalgam. Parotid and submandibular spaces are normal. Handbag Stitcher spaces appear normal. Infrahyoid Neck: Hypopharynx, larynx, [...] any questions regarding this interpretation, please call [phone]. If you are unable to reach us at the number above, please feel free to contact [facility] at [phone]. [id number] N Normal [facility] CBC W Auto Differential pane l (Bld)on 02-20-2024 Basophils (Bld) [#/Vol] 0.03 10*3/uL Normal <0.11 [facility] Comment on above: Order Comment: Speci men Type: BLOOD SPECIMENOrdering Facility: [facility] Address: [address] [place] [address] Performed By: #### 5 7021-8 ####[facility] LABCLIA [id number] [place] [address] Basophils/100 WBC (Bld) 0.3 % Normal [facility] Comment on above: Order Comment: Speci men Type: BLOOD SPECIMENOrdering Facility: [facility] Address: [address] [place] [address] Performed By: #### 5 7021-8 ####[facility] LABCLIA [id number] [place] [address] Differential cell count method Nom (Bld) Auto Normal [facility] Comment on above: Order Comment: Speci men Type: BLOOD SPECIMENOrdering Facility: [facility] Address: [address] [place] [address] Performed By: #### 5 7021-8 ####[facility] LABCLIA [id number] [place] [address] Eosinophils (Bld) [#/Vol] 0.08 10*3/uL Normal <0.46 [facility] Comment on above: Order Comment: Speci men Type: BLOOD SPECIMENOrdering Facility: [facility] Address: [address] [place] [address] Performed By: #### 5 7021-8 ####[facility] LABCLIA [id number] [place] [address] Eosinophils/100 WBC (Bld) 0.8 % Normal [facility] Comment on above: Order Comment: Speci men Type: BLOOD SPECIMENOrdering Facility: [facility] Address: [address] [place] [address] Performed By: #### 5 7021-8 ####[facility] LABCLIA [id number] [place] [address] Erythrocyte distribution width (RBC) [Ratio] 13.5 % Normal 11.5-15.0 [facility] Comment on above: Order Comment: Speci men Type: BLOOD SPECIMENOrdering Facility: [facility] Address: [address] [place] [address] Performed By: #### 5 7021-8 ####[facility] LABCLIA [id number] [place] [address] Hematocrit (Bld) [Volume fraction] 33.4 % Low 36.0-46.0 [facility] Comment on above: Order Comment: Speci men Type: BLOOD SPECIMENOrdering Facility: [facility] Address: [address] [place] [address] Performed By: #### 5 7021-8 ####[facility] LABCLIA [id number] [place] [address] Hemoglobin (Bld) [Mass/Vol] 11.2 g/dL Low 11.5-15.5 [facility] Comment on above: Order Comment: Speci men Type: BLOOD SPECIMENOrdering Facility: [facility] Address: [address] [place] [address] Performed By: #### 5 7021-8 ####[facility] LABCLIA [id number] [place] [address] Immature granulocytes (Bld) [#/Vol] 0.07 10*3/uL Normal <0.10 [facility] Comment on above: Order Comment: Speci men Type: BLOOD SPECIMENOrdering Facility: [facility] Address: [address] [place] [address] Performed By: #### 5 7021-8 ####[facility] LABCLIA [id number] [place] [address] Immature granulocytes/100 WBC (Bld) 0.7 % Normal [facility] Comment on above: Order Comment: Speci men Type: BLOOD SPECIMENOrdering Facility: [facility] Address: [address] [place] [address] Performed By: #### 5 7021-8 ####[facility] LABCLIA [id number] [place] [address] Lymphocytes (Bld) [#/Vol] 1.13 10*3/uL Normal 1.00-4.00 [facility] Comment on above: Order Comment: Speci men Type: BLOOD SPECIMENOrdering Facility: [facility] Address: [address] [place] [address] Performed By: #### 5 7021-8 ####[facility] LABCLIA [id number] [place] [address] Lymphocytes/100 WBC (Bld) 10.7 % Normal [facility] Comment on above: Order Comment: Speci men Type: BLOOD SPECIMENOrdering Facility: [facility] Address: [address] [place] [address] Performed By: #### 5 7021-8 ####[facility] LABIA [id number] [place] [address] MCH (RBC) [Entitic mass] 29.5 pg Normal 26.0-34.0 [facility] Comment on above: Order Comment: Speci men Type: BLOOD SPECIMENOrdering Facility: [facility] Address: [address] [place] [address] Performed By: #### 5 7021-8 ####[facility] LABCLIA [id number] [place] [address] MCHC (RBC) [Mass/Vol] 33.5 g/dL Normal 30.5-36.0 [facility] Comment on above: Order Comment: Speci men Type: BLOOD SPECIMENOrdering Facility: [facility] Address: [address] [place] [address] Performed By: #### 5 7021-8 ####[facility] LABCLIA [id number] [place] [address] MCV (RBC) [Entitic vol] 87.9 fL Normal 80.0-100.0 [facility] Comment on above: Order Comment: Speci men Type: BLOOD SPECIMENOrdering Facility: [facility] Address: [address] [place] [address] Performed By: #### 5 7021-8 ####[facility] LABCLIA [id number] [place] [address] Monocytes (Bld) [#/Vol] 0.52 10*3/uL Normal <0.87 [facility] Comment on above: Order Comment: Speci men Type: BLOOD SPECIMENOrdering Facility: [facility] Address: [address] [place] [address] Performed By: #### 5 7021-8 ####[facility] LABCLIA [id number] [place] [address] Monocytes/100 WBC (Bld) 4.9 % Normal [facility] Comment on above: Order Comment: Speci men Type: BLOOD SPECIMENOrdering Facility: [facility] Address: [address] [place] [address] Performed By: #### 5 7021-8 ####[facility] LABCLIA [id number] [place] [address] Neutrophils (Bld) [#/Vol] 8.76 10*3/uL High 1.45-7.50 [facility] Comment on above: Order Comment: Speci men Type: BLOOD SPECIMENOrdering Facility: [facility] Address: [address] [place] [address] Performed By: #### 5 7021-8 ####[facility] LABCLIA [id number] [place] [address] Neutrophils/100 WBC (Bld) 82.6 % Normal [facility] Comment on above: Order Comment: Speci men Type: BLOOD SPECIMENOrdering Facility: [facility] Address: [address] [place] [address] Performed By: #### 5 7021-8 ####[facility] LABCLIA [id number] [place] [address] Nucleated RBC (Bld) [#/Vol] 10*3/uL Normal <0.01 [facility] Comment on above: Order Comment: Speci men Type: BLOOD SPECIMENOrdering Facility: [facility] Address: [address] [place] [address] Performed By: #### 5 7021-8 ####[facility] LABCLIA [id number] [place] [address] Nucleated RBC/100 WBC (Bld) [Ratio] 0.0 /100 WBC Normal [facility] Comment on above: Order Comment: Speci men Type: BLOOD SPECIMENOrdering Facility: [facility] Address: [address] [place] [address] Performed By: #### 5 7021-8 ####[facility] LABCLIA [id number] [place] [address] Platelet mean volume (Bld) [Entitic vol] 10.0 fL Normal 9.0-12.7 [facility] Comment on above: Order Comment: Speci men Type: BLOOD SPECIMENOrdering Facility: [facility] Address: [address] [place] [address] Performed By: #### 5 7021-8 ####[facility] LABCLIA [id number] [place] [address] Platelets (Bld) [#/Vol] 199 10*3/uL Normal 150-400 [facility] Comment on above: Order Comment: Speci men Type: BLOOD SPECIMENOrdering Facility: [facility] Address: [address] [place] [address] Performed By: #### 5 7021-8 ####[facility] LABCLIA [id number] [place] [address] RBC (Bld) [#/Vol] 3.80 10*6/uL Low 3.90-5.20 [facility] Comment on above: Order Comment: Speci men Type: BLOOD SPECIMENOrdering Facility: [facility] Address: [address] [place] [address] Performed By: #### 5 7021-8 ####[facility] LABIA [id number] [place] [address] WBC (Bld) [#/Vol] 10.59 10*3/uL Normal 3.70-11.00 [facility] Comment on above: Order Comment: Speci men Type: BLOOD SPECIMENOrdering Facility: [facility] Address: [address] [place] [address] Performed By: #### 5 7021-8 ####[facility] LABCLIA [id number] [place] [address] Comprehensive metabolic 2000 panelon 02-20-2024 Albumin [Mass/Vol] 3.8 g/dL Low 3.9-4.9 [facility] Comment on above: Order Comment: Speci men Type: BLOOD SPECIMENOrdering Facility: [facility] Address: [address] [place] [address] Performed By: #### 2 4323-8, 2532-0 ####[facility] LABCLIA [id number] [place] [address] ALP [Catalytic activity/Vol] 161 U/L High 34-123 [facility] Comment on above: Order Comment: Speci men Type: BLOOD SPECIMENOrdering Facility: [facility] Address: [address] [place] [address] Performed By: #### 2 4323-8, 2531-0 ####[facility] LABCLIA [id number] [place] [address] ALT [Catalytic activity/Vol] 13 U/L Normal 7-38 [facility] Comment on above: Order Comment: Speci men Type: BLOOD SPECIMENOrdering Facility: [facility] Address: [address] [place] [address] Performed By: #### 2 4323-8, 2531-0 ####[facility] LABCLIA [id number] [place] [address] Anion gap [Moles/Vol] 10 mmol/L Normal 9-18 [facility] Comment on above: Order Comment: Speci men Type: BLOOD SPECIMENOrdering Facility: [facility] Address: [address] [place] [address] Performed By: #### 2 4323-8, 2531-0 ####[facility] LABCLIA [id number] [place] [address] AST [Catalytic activity/Vol] 21 U/L Normal 13-35 [facility] Comment on above: Order Comment: Speci men Type: BLOOD SPECIMENOrdering Facility: [facility] Address: [address] [place] [address] Performed By: #### 2 4323-8, 2531-0 ####[facility] LABCLIA [id number] [place] [address] Bilirubin [Mass/Vol] 0.2 mg/dL Normal 0.2-1.3 [facility] Comment on above: Order Comment: Speci men Type: BLOOD SPECIMENOrdering Facility: [facility] Address: [address] [place] [address] Performed By: #### 2 4323-8, 2532-0 ####[facility] LABCLIA [id number] [place] [address] Calcium [Mass/Vol] 10.1 mg/dL Normal 8.5-10.2 [facility] Comment on above: Order Comment: Speci men Type: BLOOD SPECIMENOrdering Facility: [facility] Address: [address] [place] [address] Performed By: #### 2 432-8, 2531-0 ####[facility] LABCLIA [id number] [place] [address] Chloride [Moles/Vol] 103 mmol/L Normal 97-105 [facility] Comment on above: Order Comment: Speci men Type: BLOOD SPECIMENOrdering Facility: [facility] Address: [address] [place] [address] Performed By: #### 2 4328, 2531-0 ####[facility] LABCLIA [id number] [place] [address] CO2 [Moles/Vol] 21 mmol/L Low 22-30 [facility] Comment on above: Order Comment: Speci men Type: BLOOD SPECIMENOrdering Facility: [facility] Address: [address] [place] [address] Performed By: #### 2 4323-8, 2531-0 ####[facility] LABCLIA [id number] [place] [address] Creatinine [Mass/Vol] 0.61 mg/dL Normal 0.58-0.96 [facility] Comment on above: Order Comment: Speci men Type: BLOOD SPECIMENOrdering Facility: [facility] Address: [address] [place] [address] Performed By: #### 2 4323-8, 2531-0 ####[facility] LABCLIA [id number] [place] [address] Creatinine and Glomerular filtration rate.predicted panel (S/P/Bld) 120 mL/min/1.73m??? Normal >=60 [facility] Comment on above: Order Comment: Kavin childress Type: BLOOD SPECIMENOrdering Facility: [facility] Address: [address] [place] [address] Result Comment: Araseli mated Glomerular Filtration Rate [...] GFR. Performed By: #### 2 4323-8, 2531-0 ####[facility] LABCLIA [id number] [place] [address] Glucose [Mass/Vol] 85 mg/dL Normal 74-99 [facility] Comment on above: Order Comment: Kavin childress Type: BLOOD SPECIMENOrdering Facility: [facility] Address: [address] [place] [address] Result Comment: The [place] [employer] (ADA) provides guidance for cutoff [...] Standards of Medical Care in Diabetes 2016, [place] [employer]. Diabetes Care. 2016.39(Suppl 1). Performed By: #### 2 4323-8, 2531-0 ####[facility] LABIA [id number] [place] [address] Potassium [Moles/Vol] 3.9 mmol/L Normal 3.7-5.1 [facility] Comment on above: Order Comment: Kavin childress Type: BLOOD SPECIMENOrdering Facility: [facility] Address: [address] [place], [place] [address] Performed By: #### 2 432-8, 2531-0 ####[facility] LABCLIA [id number] [place] [address] Protein [Mass/Vol] 7.2 g/dL Normal 6.3-8.0 [facility] Comment on above: Order Comment: Speci men Type: BLOOD SPECIMENOrdering Facility: [facility] Address: [address] [place] [address] Performed By: #### 2 4328, 2531-0 ####[facility] LABCLIA [id number] [place] [address] Sodium [Moles/Vol] 134 mmol/L Low 136-144 [facility] Comment on above: Order Comment: Speci men Type: BLOOD SPECIMENOrdering Facility: [facility] Address: [address] [place] [address] Performed By: #### 2 432-8, 2531-0 ####[facility] LABCLIA [id number] [place] [address] Urea nitrogen [Mass/Vol] 6 mg/dL Low 7-21 [facility] Comment on above: Order Comment: Speci men Type: BLOOD SPECIMENOrdering Facility: [facility] Address: [address] [place] [address] Performed By: #### 2 4323-8, 2531-0 ####[facility] LABCLIA [id number] [place] [address] LDH SerPl-cCncon 02-20-2024 LDH [Catalytic activity/Vol] 210 U/L Normal 135-214 [facility] Comment on above: Order Comment: Speci men Type: BLOOD SPECIMENOrdering Facility: [facility] Address: [address] [place] [address] Performed By: #### 2 4328, 2531-0 ####[facility] LABCLIA [id number] [place] [address] COMPLETE BLOOD COUNTon 01-28 Erythrocyte distribution width (RBC) [Ratio] 13.6 % Normal 11.5-15.0 [facility] Comment on above: Performed By: #### C NATASHA MESSER, 0, 3083-10 #### [facility] ([id number]) [address] [place] [address] Hematocrit (Bld) [Volume fraction] 29.4 % Low 35-47 [facility] Comment on above: Performed By: #### Adri MESSER CMP, 0, 3083-10 #### [facility] ([id number]) [address] [place] [address] Hemoglobin (Bld) [Mass/Vol] 10.4 g/dL Low 11.7-15.5 [facility] Comment on above: Performed By: #### Adri MESSER CMP, 0, 3083-10 #### [facility] ([id number]) [address] [place] [address] MCH (RBC) [Entitic mass] 31.0 pg Normal 27-34 [facility] Comment on above: Performed By: #### Adri MESSER CMP, 0, 3083-10 #### [facility] ([id number]) [address] [place] [address] MCHC (RBC) [Mass/Vol] 35.3 g/dL Normal 32-36 [facility] Comment on above: Performed By: #### Adri MESSER CMP, 0, 3083-10 #### [facility] ([id number]) [address] [place] [address] MCV (RBC) [Entitic vol] 88 fL Normal 80-100 [facility] Comment on above: Performed By: #### Adri BC CMP, 0, 3083-10 #### [facility] ([id number]) [address] [place] [address] Platelet mean volume (Bld) [Entitic vol] 8.1 fL Normal 7-12 [facility] Comment on above: Performed By: #### Adri MESSER, CMP, 0, 3083-1 #### [facility] ([id number]) [address] [place] [address] Platelets (Bld) [#/Vol] 205 10*3/uL Normal 150-450 [facility] Comment on above: Performed By: #### Adri MESSER CMP, 0, 3083-10 #### [facility] ([id number]) [address] [place] [address] RBC COUNT 3.34 X10E12/L Low 3.80-5.20 [facility] Comment on above: Performed By: #### Adri MESSER, CMP, 0, 3083-10 #### [facility] ([id number]) [address] [place] [address] WBC (Bld) [#/Vol] 8.2 10*3/uL Normal 4.0-11.0 [facility] Comment on above: Performed By: #### Adri MESSER CMP, 0, 3083- #### [facility] ([id number]) [address] [place] [address] COMPREHENSIVE METABOLIC PANE Joel 01-29-2024 Albumin [Mass/Vol] 2.8 g/dL Low 3.2-5.3 [facility] Comment on above: Performed By: #### Adri MESSER, CMP, 0, 3083- #### [facility] ([id number]) [address] [place] [address] ALP [Catalytic activity/Vol] 103 U/L Normal 39-130 [facility] Comment on above: Performed By: #### C GUI, CMP, 2531-0, 3083- #### [facility] ([id number]) [address] [place] [address] ALT [Catalytic activity/Vol] 16 U/L Normal 0-31 [facility] Comment on above: Performed By: #### C BC, CMP, 2531-0, 3083-1 #### [facility] ([id number]) [address] [place] [address] Anion gap [Moles/Vol] 9 mmol/L Normal 5-15 [facility] Comment on above: Performed By: #### C GUI, CMP, 0, 3083-10 #### [facility] ([id number]) [address] [place] [address] AST [Catalytic activity/Vol] 18 U/L Normal 0-41 [facility] Comment on above: Performed By: #### C GUI, CMP, 0, 3083- #### [facility] ([id number]) [address] [place] [address] [id number] Bilirubin [Mass/Vol] 0.3 mg/dL Normal 0.3-1.2 [facility] Comment on above: Performed By: #### C GUI, CMP, 0, 3083- #### [facility] ([id number]) [address] [place] [address] [id number] Calcium [Mass/Vol] 9.2 mg/dL Normal 8.5-10.5 [facility] Comment on above: Performed By: #### C BC, CMP, 2531-0, 3083-1 #### [facility] [facility] ([id number]) [address] [place] [address] 09365 Chloride [Moles/Vol] 105 mmol/L Normal 98-109 [facility] Comment on above: Performed By: #### C BC, CMP, 0, 3083-10 #### [facility] ([id number]) [address] [place] [address] 58526 CO2 [Moles/Vol] 22 mmol/L Normal 22-32 [facility] Comment on above: Performed By: #### Adri MESSER CMP, 0, 3083-10 #### [facility] ([id number]) [address] [place] [address] 36340 Creatinine [Mass/Vol] 0.51 mg/dL Normal 0.40-1.00 [facility] Comment on above: Result Comment: METH OD TRACEABLE TO IDMS STANDARD Performed By: #### Adri MESSER CMP, 0, 3083-10 #### [facility] ([id number]) [address] [place] [address] 18136 eGFR (CKD-EPI) NON-RACE DEPENDENT >90 Normal >59 [facility] Comment on above: Result Comment: Reported eGFR is based on the CKD-EPI 2020 equation that does not use a race coefficient. Performed By: #### Adri MESSER CMP, 0, 3083-10 #### [facility] ([id number]) [address] [place] [address] 28119 Glucose [Mass/Vol] 96 mg/dL Normal 65-99 [facility] Comment on above: Performed By: #### Adri MESSER CMP, 0, 3083-10 #### [facility] ([id number]) [address] [place] [address] 63464 Potassium [Moles/Vol] 4.1 mmol/L Normal 3.5-5.0 [facility] Comment on above: Performed By: #### Adri MESSER CMP, 0, 3083-10 #### [facility] ([id number]) [address] [place] [address] 62429 Protein [Mass/Vol] 6.5 g/dL Normal 6.0-8.0 [facility] Comment on above: Performed By: #### C GUI [facility], 2532-0, 3084-1 #### [facility] ([id number]) [address] [place] [address] 56933 Sodium [Moles/Vol] 136 mmol/L Normal 134-146 [facility] Comment on above: Performed By: #### Adri MESSER [facility], 2-0, 3083-1 #### [facility] ([id number]) [address] [place] [address] 87204 Urea nitrogen [Mass/Vol] 5 mg/dL Normal 5-23 [facility] Comment on above: Performed By: #### Adri MESSER [facility], 0, 3083-1 #### [facility] ([id number]) [address] [place] [address] 37205 LDH [Catalytic activity/Vol] on 01-29-2024 LDH 128 U/L Normal 100-235 [facility] Comment on above: Performed By: #### Adri MESSER [facility], 0, 308-1 #### [facility] ([id number]) [address] [place] [address] 67786 PROTEIN CREAT RATIOon 2023 RANDOM URINE PROTEIN 30 mg/L Normal <120 [facility] Comment on above: Performed By: #### U PCR #### [facility] ([id number]) [address] [place] [address] 58443 U/PRO/PREPARER MAKING DEPARTMENT RATIO CALC 0.12 Normal <0.2 [facility] Comment on above: Result Comment: Neph rotic Syndrome is associated with ratios >3.5 Performed By: #### U PCR #### [facility] ([id number]) [address] [place] [address] 69369 URINE CREATININE,RDM 25.84 mg/dL Normal [facility] Comment on above: Performed By: #### U PCR #### [facility] ([id number]) [address] [place] [address] 82951 URIC ACIDon 01-29-2024 Urate [Mass/Vol] 4.1 mg/dL Normal 2.6-7.2 [facility] Comment on above: Performed By: #### C BC, CMP, 2532-0, 3084-1 #### [facility] ([id number]) [address] [place] [address], [place] [address] CNPNon 01-25-2024 CNPN Telephone (PLASMN) VY MCKEON ([id number]) 1990 F Date Time Provider Department 01/25/24 [...] mg by mouth. - omeprazole magnesium (ACID SOLUTION STRATEGIST, OMEPRAZOLE, ORAL) Take by mouth as directed. [...] Encounter Status:Closed [facility] (HEMASA) VY MCKEON ([id number]) 1990 F Date Time Provider Department 01/22/24 [...] MD 1 hour ago (8:13 AM) [place], That is fine obstetrically if you are [...] [C43.9] Order(s):CT NECK SOFT TISSUE W IVCON [[id number]] Order #: [id number] FUTURE [] iv contrast (will be provided [...] 1 EachRfl: 0 CT CHEST W IVCON [[id number]] Order #: [id number] FUTURE [] iv contrast (will be provided [...] EachRfl: 0 LACTATE DEHYDROGENASE [SQLD6] Order #: [id number] FUTURE COMPLETE BLOOD COUNT AND DIFFERENTIAL [SQCBCDIF] Order #: [id number] FUTURE COMPREHENSIVE METABOLIC PANEL [SQCMP] Order #: [id number] FUTURE Prescriptions as of 01/30/2024 - diphenhydramine [...] mg by mouth. - omeprazole magnesium (ACID SOLUTION STRATEGIST, OMEPRAZOLE, ORAL) Take by mouth as directed. [...] In Off (more content not included)... Normal [facility] Telephone (OYI278) VY MCKEON ([id number]) 1990 F Date Time Provider Department 01/22/24 [id number] During your visit today, we recorded the following information about you: Ana Peoples MD 01/22/2024 3:44 PM Signed 01/22/2024 [facility] Pt called and identified ~ 12:30 [...] mg by mouth. - omeprazole magnesium (ACID SOLUTION STRATEGIST, OMEPRAZOLE, ORAL) Take by mouth as directed. [...] Status:Closed by ANA [facility] on 01/22/24 Normal [facility] Examination level ultrasound on 01-21-2024 Radiology Study observation (narrative) [facility] Indication anatomy survey. Melanoma, Advanced maternal age, [...] 9 oz EFW by: Hadlock (HC-AC-FL) Extended Medical Cost Consultant 3.1 mm CM 7.6 mm 70% Nicolaides [...] normal LVOT view: normal 3-vessel view: normal 8-nddbbe-daupjxj view: normal Heart / Thorax Situs: situs [...] By: Ana Peoples MD [facility] Telephone (OBGYF2) VY MCKEON ([id number]) 1990 F Date Time Provider Department 01/18/24 OB [facility] OBGYF2 During your visit today, we [...] mg by mouth. - omeprazole magnesium (ACID SOLUTION STRATEGIST, OMEPRAZOLE, ORAL) Take by mouth as directed. - PNV no.95/ferrous fum/folic ac ( ORAL) Take by mouth as directed. Problem List As Of Date: 01/18/2024 (None) Encounter Status:Closed by JOSE L CROWLEY on 01/18/24 [facility] 01-10-2024 CNPN Telephone (OBGYF2) VY MCKEON ([id number]) 1990 F Date Time Provider Department 01/10/24 HISTORICAL OBGYF2 During your visit today, we recorded the following information about you: Rolo Parada 01/10/2024 9:19 AM Signed [facility] msg was sent to patient asking for [...] mg by mouth. - omeprazole magnesium (ACID SOLUTION STRATEGIST, OMEPRAZOLE, ORAL) Take by mouth as directed. - PNV no.95/ferrous fum/folic ac ( ORAL) Take by mouth as directed. Problem List As Of Date: 01/10/2024 (None) Encounter Status:Closed by ROLO PARADA on 01/10/24 [facility] 01-09-2024 CNPN Telephone (PLASMN) VY MCKEON ([id number]) 1990 F Date Time Provider Department 01/09/24 FRANSICO SHARP During your visit today, we recorded the following information about you: Fernanda Michael 01/09/2024 9:55 AM Signed Patient called that she is seeing Maternal Med, in her area and was questioning does she need to see one at the [facility]? She is asking for a call.. she is very nervous Surjit Griggs, RN 01/09/2024 12:42 PM Signed Reached out to patient. Instructions provided to see a maternal medicine specialist within the [facility] per Dr. Sharp. This nurse explained [...] mg by mouth. - omeprazole magnesium (ACID SOLUTION STRATEGIST, OMEPRAZOLE, ORAL) Take by mouth as directed. - PNV no.95/ferrous fum/folic ac ( ORAL) Take by mouth as directed. Problem List As Of Date: 01/09/2024 (None) Encounter Status:Closed by FERNANDA MICHAEL on 01/09/24 Normal [facility] CNOVSPon 01-04-2024 CNOVSP Visit (SP) Office (PLASCA) VY MCKEON ([id number]) 1990 F Date Time Provider Department 01/04/24 2:15 PM FRANSICO SHARP During your visit today, we recorded the following information about you: Temperature Pulse Respiration Blood pressure 97.1 degrees 94/minute 20/minute 148/83 Fransico Sharp MD 01/06/2024 9:42 AM Signed DATE: January 03, 2024 CC: New Melanoma Patient Referring Physician: Margarita Kim MD at [facility] in [place] HPI: Vy Mckeon is a 33 year [...] 400 mg by mouth. omeprazole magnesium (ACID SOLUTION STRATEGIST, OMEPRAZOLE, ORAL) Take by mouth as directed. [...] left upper lip with a variegated pattern, programmer in the middle with a number of dark spots. The lesion measures 1 cm in diameter. Photos taken, see [employer] LABS: Pathology Report - EXTERNAL [...] taken and uploaded to chart today via [employer] - Pathology re-read to be obtained - Surgical plan is for resection of left upper lip melano (more content not included)... Normal [facility] CBC W Auto Differential pane l (Bld)on 12-26-2023 Basophils (Bld) [#/Vol] 0.03 10*3/uL Normal <0.11 [facility] Comment on above: Order Comment: Speci men Type: BLOOD SPECIMENOrdering Facility: [facility] Address: [address] [place] [address] Performed By: #### 5 7021-8 ####[facility] LABCLIA [id number] [place] [address] Basophils/100 WBC (Bld) 0.3 % Normal [facility] Comment on above: Order Comment: Speci men Type: BLOOD SPECIMENOrdering Facility: [facility] Address: [address] [place] [address] Performed By: #### 5 7021-8 ####[facility] LABCLIA [id number] [place] [address] Differential cell count method Nom (Bld) Auto Normal [facility] Comment on above: Order Comment: Speci men Type: BLOOD SPECIMENOrdering Facility: [facility] Address: [address] [place] [address] Performed By: #### 5 7021-8 ####[facility] LABCLIA [id number] [place] [address] Eosinophils (Bld) [#/Vol] 0.15 10*3/uL Normal <0.46 [facility] Comment on above: Order Comment: Speci men Type: BLOOD SPECIMENOrdering Facility: [facility] Address: [address] [place] [address] Performed By: #### 5 7021-8 ####[facility] LABCLIA [id number] [place] [address] Eosinophils/100 WBC (Bld) 1.5 % Normal [facility] Comment on above: Order Comment: Speci men Type: BLOOD SPECIMENOrdering Facility: [facility] Address: [address] [place] [address] Performed By: #### 5 7021-8 ####[facility] LABCLIA [id number] [place] [address] Erythrocyte distribution width (RBC) [Ratio] 13.5 % Normal 11.5-15.0 [facility] Comment on above: Order Comment: Speci men Type: BLOOD SPECIMENOrdering Facility: [facility] Address: [address] [place] [address] Performed By: #### 5 7021-8 ####[facility] LABCLIA [id number] [place] [address] Hematocrit (Bld) [Volume fraction] 35.5 % Low 36.0-46.0 [facility] Comment on above: Order Comment: Speci men Type: BLOOD SPECIMENOrdering Facility: [facility] Address: [address] [place] [address] Performed By: #### 5 7021-8 ####[facility] LABCLIA [id number] [place] [address] Hemoglobin (Bld) [Mass/Vol] 12.0 g/dL Normal 11.5-15.5 [facility] Comment on above: Order Comment: Speci men Type: BLOOD SPECIMENOrdering Facility: [facility] Address: [address] [place] [address] Performed By: #### 5 7021-8 ####[facility] LABCLIA [id number] [place] [address] Immature granulocytes (Bld) [#/Vol] 0.06 10*3/uL Normal <0.10 [facility] Comment on above: Order Comment: Speci men Type: BLOOD SPECIMENOrdering Facility: [facility] Address: [address] [place] [address] Performed By: #### 5 7021-8 ####[facility] LABCLIA [id number] [place] [address] Immature granulocytes/100 WBC (Bld) 0.6 % Normal [facility] Comment on above: Order Comment: Speci men Type: BLOOD SPECIMENOrdering Facility: [facility] Address: [address] [place] [address] Performed By: #### 5 7021-8 ####[facility] LABCLIA [id number] [place] [address] Lymphocytes (Bld) [#/Vol] 1.46 10*3/uL Normal 1.00-4.00 [facility] Comment on above: Order Comment: Speci men Type: BLOOD SPECIMENOrdering Facility: [facility] Address: [address] [place] [address] Performed By: #### 5 7021-8 ####[facility] LABCLIA [id number] [place] [address] Lymphocytes/100 WBC (Bld) 15.0 % Normal [facility] Comment on above: Order Comment: Speci men Type: BLOOD SPECIMENOrdering Facility: [facility] Address: [address] [place] [address] Performed By: #### 5 7021-8 ####[facility] LABCLIA [id number] [place] [address] MCH (RBC) [Entitic mass] 30.1 pg Normal 26.0-34.0 [facility] Comment on above: Order Comment: Speci men Type: BLOOD SPECIMENOrdering Facility: [facility] Address: [address] [place] [address] Performed By: #### 5 7021-8 ####[facility] LABCLIA [id number] [place] [address] MCHC (RBC) [Mass/Vol] 33.8 g/dL Normal 30.5-36.0 [facility] Comment on above: Order Comment: Speci men Type: BLOOD SPECIMENOrdering Facility: [facility] Address: [address] [place] [address] Performed By: #### 5 7021-8 ####[facility] LABCLIA [id number] [place] [address] MCV (RBC) [Entitic vol] 89.0 fL Normal 80.0-100.0 [facility] Comment on above: Order Comment: Speci men Type: BLOOD SPECIMENOrdering Facility: [facility] Address: [address] [place] [address] Performed By: #### 5 7021-8 ####[facility] LABCLIA [id number] [place] [address] Monocytes (Bld) [#/Vol] 0.50 10*3/uL Normal <0.87 [facility] Comment on above: Order Comment: Speci men Type: BLOOD SPECIMENOrdering Facility: [facility] Address: [address] [place] [address] Performed By: #### 5 7021-8 ####[facility] LABCLIA [id number] [place] [address] Monocytes/100 WBC (Bld) 5.1 % Normal [facility] Comment on above: Order Comment: Speci men Type: BLOOD SPECIMENOrdering Facility: [facility] Address: [address] [place] [address] Performed By: #### 5 7021-8 ####[facility] LABCLIA [id number] [place] [address] Neutrophils (Bld) [#/Vol] 7.52 10*3/uL High 1.45-7.50 [facility] Comment on above: Order Comment: Speci men Type: BLOOD SPECIMENOrdering Facility: [facility] Address: [address] [place] [address] Performed By: #### 5 7021-8 ####[facility] LABCLIA [id number] [place] [address] Neutrophils/100 WBC (Bld) 77.5 % Normal [facility] Comment on above: Order Comment: Speci men Type: BLOOD SPECIMENOrdering Facility: [facility] Address: [address] [place] [address] Performed By: #### 5 7021-8 ####[facility] LABCLIA [id number] [place] [address] Nucleated RBC (Bld) [#/Vol] 10*3/uL Normal <0.01 [facility] Comment on above: Order Comment: Speci men Type: BLOOD SPECIMENOrdering Facility: [facility] Address: [address] [place] [address] Performed By: #### 5 7021-8 ####[facility] LABCLIA [id number] [place] [address] Nucleated RBC/100 WBC (Bld) [Ratio] 0.0 /100 WBC Normal [facility] Comment on above: Order Comment: Speci men Type: BLOOD SPECIMENOrdering Facility: [facility] Address: [address] [place] [address] Performed By: #### 5 7021-8 ####[facility] LABIA [id number] [place] [address] Platelet mean volume (Bld) [Entitic vol] 10.1 fL Normal 9.0-12.7 [facility] Comment on above: Order Comment: Speci men Type: BLOOD SPECIMENOrdering Facility: [facility] Address: [address] [place] [address] Performed By: #### 5 7021-8 ####[facility] LABCLIA [id number] [place] [address] Platelets (Bld) [#/Vol] 224 10*3/uL Normal 150-400 [facility] Comment on above: Order Comment: Speci men Type: BLOOD SPECIMENOrdering Facility: [facility] Address: [address] [place] [address] Performed By: #### 5 7021-8 ####[facility] LABCLIA [id number] [place] [address] RBC (Bld) [#/Vol] 3.99 10*6/uL Normal 3.90-5.20 [facility] Comment on above: Order Comment: Speci men Type: BLOOD SPECIMENOrdering Facility: [facility] Address: [address] [place] [address] Performed By: #### 5 7021-8 ####[facility] LABCLIA [id number] [place] [address] WBC (Bld) [#/Vol] 9.72 10*3/uL Normal 3.70-11.00 [facility] Comment on above: Order Comment: Speci men Type: BLOOD SPECIMENOrdering Facility: [facility] Address: [address] [place] [address] Performed By: #### 5 7021-8 ####[facility] LABIA [id number] [place] [address] CNOVSPon 12-26-2023 CNOVSP Visit (SP) Office (HEMASA) VY MCKEON ([id number]) 1990 F Date Time Provider Department 12/26/23 3:30 PM USMAN GOLDBERG During your visit today, we recorded the following information about you: Temperature Pulse Respiration Blood pressure 97.3 degrees 87/minute 16/minute 134/74 Weight Height Last Period 86.1 kg 1.702 m 06/24/23 Usman Goldberg MD 12/27/2023 12:46 PM Signed NAME: Vy Mckeon CLINIC NO.: [id number] DATE OF SERVICE: December 26, 2023 (Krystal) [...] magnesium (ACID (more content not included)... Normal [facility] Comprehensive metabolic 2000 panelon 12-26-2023 Albumin [Mass/Vol] 3.9 g/dL Normal 3.9-4.9 [facility] Comment on above: Order Comment: Speci men Type: BLOOD SPECIMENOrdering Facility: [facility] Address: [address] [place] [address] Performed By: #### 2 4323-8, ####[facility] LABCLIA [id number] [place] [address] ALP [Catalytic activity/Vol] 109 U/L Normal 34-123 [facility] Comment on above: Order Comment: Speci men Type: BLOOD SPECIMENOrdering Facility: [facility] Address: [address] [place], [place] [address] Performed By: #### 2 4323-8, 0 ####[facility] LABCLIA [id number] [place] [address] ALT [Catalytic activity/Vol] 26 U/L Normal 7-38 [facility] Comment on above: Order Comment: Speci men Type: BLOOD SPECIMENOrdering Facility: [facility] Address: [address] [place] [address] Performed By: #### 2 4323-8, 2531-0 ####[facility] LABCLIA [id number] [place] [address] Anion gap [Moles/Vol] 10 mmol/L Normal 9-18 [facility] Comment on above: Order Comment: Speci men Type: BLOOD SPECIMENOrdering Facility: [facility] Address: [address] [place], [place] [address] Performed By: #### 2 4323-8, 2531-0 ####[facility] LABCLIA [id number] [place] [address] AST [Catalytic activity/Vol] 26 U/L Normal 13-35 [facility] Comment on above: Order Comment: Speci men Type: BLOOD SPECIMENOrdering Facility: [facility] Address: [address] [place] [address] Performed By: #### 2 4323-8, 2531-0 ####[facility] LABCLIA [id number] [place] [address] Bilirubin [Mass/Vol] 0.2 mg/dL Normal 0.2-1.3 [facility] Comment on above: Order Comment: Speci men Type: BLOOD SPECIMENOrdering Facility: [facility] Address: [address] [place] [address] Performed By: #### 2 4323-8, 2532-0 ####[facility] LABCLIA [id number] [place] [address] Calcium [Mass/Vol] 10.1 mg/dL Normal 8.5-10.2 [facility] Comment on above: Order Comment: Speci men Type: BLOOD SPECIMENOrdering Facility: [facility] Address: [address] [place], [place] [address] Performed By: #### 2 4323-8, 2-0 ####[facility] LABCLIA [id number] [place] [address] Chloride [Moles/Vol] 103 mmol/L Normal 97-105 [facility] Comment on above: Order Comment: Speci men Type: BLOOD SPECIMENOrdering Facility: [facility] Address: [address] [place] [address] Performed By: #### 2 4323-8, 2532-0 ####[facility] LABCLIA [id number] [place] [address] CO2 [Moles/Vol] 23 mmol/L Normal 22-30 [facility] Comment on above: Order Comment: Speci men Type: BLOOD SPECIMENOrdering Facility: [facility] Address: [address] [place] [address] Performed By: #### 2 4323-8, 2531-0 ####[facility] LABCLIA [id number] [place] [address] Creatinine [Mass/Vol] 0.64 mg/dL Normal 0.58-0.96 [facility] Comment on above: Order Comment: Speci men Type: BLOOD SPECIMENOrdering Facility: [facility] Address: [address] [place] [address] Performed By: #### 2 4323-8, 2531-0 ####[facility] LABCLIA [id number] [place] [address] Creatinine and Glomerular filtration rate.predicted panel (S/P/Bld) 118 mL/min/1.73m??? Normal >=60 [facility] Comment on above: Order Comment: Speci men Type: BLOOD SPECIMENOrdering Facility: [facility] Address: [address] [place] [address] Result Comment: Araseli mated Glomerular Filtration Rate [...] reflect actual GFR. Performed By: #### 2 43238, ####[facility] LABCLIA [id number] [place] [address] Glucose [Mass/Vol] 85 mg/dL Normal 74-99 [facility] Comment on above: Order Comment: Speceduard childress Type: BLOOD SPECIMENOrdering Facility: [facility] Address: [address] [place] [address] Result Comment: The [place] [employer] (ADA) provides guidance for cutoff [...] Standards of Medical Care in Diabetes 2016, [place] [employer]. Diabetes Care. 2016.39(Suppl 1). Performed By: #### 2 4328, ####[facility] LABCLIA [id number] [place] [address] Potassium [Moles/Vol] 4.1 mmol/L Normal 3.7-5.1 [facility] Comment on above: Order Comment: Kavin childress Type: BLOOD SPECIMENOrdering Facility: [facility] Address: [address] [place] [address] Performed By: #### 2 4328, ####[facility] LABCLIA [id number] [place] [address] Protein [Mass/Vol] 7.3 g/dL Normal 6.3-8.0 [facility] Comment on above: Order Comment: Speci men Type: BLOOD SPECIMENOrdering Facility: [facility] Address: [address] [place] [address] Performed By: #### 2 4323-8, 0 ####[facility] LABCLIA [id number] [place] [address] Sodium [Moles/Vol] 136 mmol/L Normal 136-144 [facility] Comment on above: Order Comment: Speci men Type: BLOOD SPECIMENOrdering Facility: [facility] Address: [address] [place] [address] Performed By: #### 2 4323-8, 2531-0 ####[facility] LABCLIA [id number] [place] [address] Urea nitrogen [Mass/Vol] 6 mg/dL Low 7-21 [facility] Comment on above: Order Comment: Speci men Type: BLOOD SPECIMENOrdering Facility: [facility] Address: [address] [place] [address] Performed By: #### 2 4323-8, 2531-0 ####[facility] LABCLIA [id number] [place] [address] [facility]2023 LDH [Catalytic activity/Vol] 190 U/L Normal 135-214 [facility] Comment on above: Order Comment: Speci men Type: BLOOD SPECIMENOrdering Facility: [facility] Address: [address] [place] [address] Result Comment: Hemo lysis present. The origin [...] indicated. Performed By: #### 2 4323-8, 2531-0 ####[facility] LABCLIA [id number] [place] [address] URETHRITIS/DISCHARGE PLUS VA GINITIS (HTRX)on 11-14-2023 ATOPOBIUM VAGINAE 19.497 Abnormal [facility] ATOPOBIUM VAGINAE Detected Abnormal [facility]care BVAB 2,3 (BACTERIAL VAGINOSIS ASSOCIATED BACTERIA 2, 3); MOBILUNCUS SPP 15.096 Abnormal [facility] Healthcare BVAB 2,3 (BACTERIAL VAGINOSIS ASSOCIATED BACTERIA 2, 3); MOBILUNCUS SPP Detected Abnormal [facility] DIANE ALBICANS, PARAPSILOSIS, TROPICALIS 0 [facility] DIANE ALBICANS, PARAPSILOSIS, TROPICALIS Not detected [facility]ABRATA [facility] detected [facility] ealthcare DIANE KRUSEI 0 [facility] hcare DIANE KRUSEI Not detected [facility] CHLAMYDIA TRACHOMATIS 0 [facility] CHLAMYDIA TRACHOMATIS Not detected [facility] DFR (A1, A5), SUL (1,2) 0 PPM [facility] Healthcare DFR (A1, A5), SUL (1,2) Not detected [facility] Healthcare ERMB, C; MEFA 14.773 Abnormal PPM [facility] care ERMB, C; MEFA Detected Abnormal [facility] care GARDNERELLA VAGINALIS 0 [facility] GARDNERELLA VAGINALIS Not detected [facility] Interpretation and review of laboratory results Abnormal [facility] Healthnh re MEGASPHAERA (TYPES 1, 2) 0 [facility] MEGASPHAERA (TYPES 1, 2) Not detected [facility] MYCOPLASMA GENITALIUM 0 [facility] MYCOPLASMA GENITALIUM Not detected [facility] NEISSERIA GONORRHOEAE 0 [facility] NEISSERIA GONORRHOEAE Not detected [facility] TET B, TET M 18.414 Abnormal PPM [facility] Healthc are TET B, TET M [facility]ed [facility] TRICHOMONAS VAGINALIS 0 [facility] TRICHOMONAS VAGINALIS Not detected [facility] Healthcar e Unlisted Lab Teston 11-13-19 24 Unlisted lab test see scanned report [facility] Urinalysis macro (dipstick) panel (U)on 11-12-2023 Bilirubin, UA Negative Negative - 4(70) +++ mg/dL [facility] Blood, UA Negative Negative - 50 Manny/mcL [facility] Clarity, UA Clear [facility] Healthca re Color, UA Yellow [facility] Healthcar e Glucose, UA Negative Negative - 1999(110) ++++ mg/dL [facility] Interpretation and review of laboratory results Normal [facility] re Ketones, UA Negative Negative - 160(16) ++++ mg/dL [facility] Leukocytes, UA Negative Negative - 500+++ Luli/mcL [facility] Nitrite, UA Negative Negative - Positive [facility] pH, UA 6.0 5 - 9 [facility] e Protein, UA Negative Negative - 1999(20) ++++ mg/dL [facility] Spec Grav, UA 1.020 1 - 1.03 [facility] Urobilinogen, UA 1.0 0.2 - 12 mg/dL [facility] Healthcar e HCG ( test) IA.rosalinda d Ql (U)Ordered By: Karan Romero on 03-19-2023 HCG ( test) Ql (U) Negative [facility] HCG,Urineon 03-19-2023 Beta HCG ( test) Ql (U) Negative Normal [facility] Comment on above: Result Comment: PERF ORMED BY: [place] [address] PATHOLOGIST [employer] JOYCE ACHARYA M.D. Performed By: #### U HCG #### [address] 03-19-2023 L - -------- Specimen: [id number] Received: 03/19/23 Status: HEMANT Melissa Num: [id number] Spec Type: Surgical Subm Dr: Karan Romero MD Tissues: A Duodenum - Biopsy (DUODENAL BX) B Esophagus Biopsy (ESOPHAGEAL) Procedures: HE/4, Gross/Micro L4/2 -------- Age/ Patient Sex Location Account Attending Physician -------- Vy Mckeon 32/F [id number] Karan Romero MD -------- SPEC NUM: [id number] RECD: 03/19/23 STATUS: HEMANT JOHNSTON NUM: [id number] ASAD: 03/19/231356 [facility] DR: Karan Romero MD ENTERED: 03/19/23 [facility] DR: MERE TYPE: Surgical DEPT: S ORDERED: [...] in one cassette labeled B1. -------- Specimen: [id number] Received: 03/19/23 Status: HEMANT Johnston Num: [id number] Spec Type: Surgical Subm Dr: Karan Romero MD Tissues: A Duodenum - Biopsy (DUODENAL BX) B Esophagus Biopsy (ESOPHAGEAL) Procedures: HE/4, Gross/Micro L4/2 -------- Patient: Vy Mckeon [id number] (Continued) -------- Specimen: [id number] Received: 03/19/23 (Continued) Signed (signature on file) Doris Reynolds MD 03/20/23 1117 -------- Specimen: [id number] Received: 03/19/23 Status: HEMANT Johnston Num: [id number] Spec Type: Surgical Subm Dr: Karan Romero MD Tissues: A Duodenum - Biopsy (DUODENAL BX) B Esophagus Biopsy (ESOPHAGEAL) Procedures: HE/4, Gross/Micro L4/2 -------- Patient: MikeVy [id number] (Continued) -------- Specimen: [id number] Received: 03/19/23 (Continued) Microscopic Description A. Two with H E stained material have been examined. The microscopic findings support the above pathologic diagnosis. B. Two with H E stained material have been examined. The microscopic findings support the above pathologic diagnosis. CPT Codes 32145 x 2 -------- -------- Specimen: [id number] Received: 03/19/23 Status: HEMANT Johnston Num: [id number] Spec Type: Surgical Subm Dr: Karan Romero MD Tissues: A Duodenum - Biopsy (DUODENAL BX) B Esophagus Biopsy (ESOPHAGEAL) Procedures: HE/Maday, Gross/Micro L4/2 -------- Patient: Vy Mckeon [id number] (Continued) -------- Signed (signature on file) Doris Reynolds MD 03/20/23 1117 Normal [facility] CBC AUTO DIFFon 02-09-2023 BASO # 0.0 103/ul Normal 0.0-0.[address] [facility] Comment on above: Performed By: #### C ####[facility] [address] [place], [place] [address]DrBryant Branham Basophils/100 WBC (Bld) 0.3 % Normal 0.2-2.0 [facility] Comment on above: Performed By: #### C BC ####[facility] [address] [place], [place] [address]Dr. Zafar Branham EO # 0.2 103/ul Normal 0.0-0.[address] [facility] Comment on above: Performed By: #### C BC ####[facility] [address] [place], [place] [address]Dr. Zafar Branham Eosinophils/100 WBC (Bld) 1.7 % Normal 0.9-7.[address] [facility] Comment on above: Performed By: #### C BC ####[facility] [address] [place], [place] [address]Dr. Zafar Branham Erythrocyte distribution width (RBC) [Ratio] 13.9 % Normal 11.0-15.[address] [facility] Comment on above: Performed By: #### C BC ####[facility] D[address] [place], [place] [address]Dr. Zafar Branham Hematocrit (Bld) [Volume fraction] 41.0 % Normal 36.0-48.[address] [facility] Comment on above: Performed By: #### C BC ####[facility] R[address]qs[address] [place], [place] [address]Dr. Zafar Branham Hemoglobin (Bld) [Mass/Vol] 13.4 g/dL Normal 12.0-16.[address] [facility] Comment on above: Performed By: #### C BC ####[facility] [address] [place], [place] [address]Dr. Zafar Branham IG # 0.03 10e3/ul Normal 0.00-0.[address] [facility] Comment on above: Performed By: #### C BC ####[facility] P[address]tq[address] [place], [place] [address]Dr. Zafar Branham IG % 0.3 % Normal 0.0-0.[address] [facility] Comment on above: Performed By: #### C BC ####[facility] [address] [place], [place] [address]Dr. Zafar Branham LYMPH # 1.4 103/ul Normal 1.2-3.[address] [facility] Comment on above: Performed By: #### C BC ####[facility] [address] [place] [address]Dr. Zafar Branham Lymphocytes/100 WBC (Bld) 14.8 % Critically low 20.5-60.0 [facility] Comment on above: Performed By: #### C BC ####[facility] [address] [place], [place] [address]Dr. Zafar Branham MANUAL DIFF REQ NO Normal [facility] Comment on above: Performed By: #### C BC ####[facility] [address] [place], [place] [address]Dr. Zafar Branham MCH (RBC) [Entitic mass] 28.8 pg Normal 26.7-34.[address] [facility] Comment on above: Performed By: #### C BC ####[facility] Mc[address] [place], [place] [address]Dr. Zafar Branham MCHC (RBC) [Mass/Vol] 32.7 g/dL Normal 29.9-35.[address] [facility] Comment on above: Performed By: #### C BC ####[facility] [address] [place], [place] [address]Dr. Zafar Branham MCV (RBC) [Entitic vol] 88.0 fL Normal 81.0-99.[address] [facility] Comment on above: Performed By: #### C BC ####[facility] [address] [place], [place] [address]Dr. Zafar Branham MONO # 0.4 103/ul Normal 0.3-0.[address] [facility] Comment on above: Performed By: #### C BC ####[facility] R[address] [place], [place] [address]Dr. Zafar Branham Monocytes/100 WBC (Bld) 3.9 % Normal 1.7-12.[address] [facility] Comment on above: Performed By: #### C BC ####[facility] [address] [place], [place] [address]Dr. Zafar Branham NEUT # 7.2 103/ul Critically high 1.4-6.5 [facility] Comment on above: Performed By: #### C BC ####[facility] [address] [place] [address]Dr. Zafar Branham Neutrophils/100 WBC (Bld) 79.0 % Critically high 43.0-75.0 [facility] Comment on above: Performed By: #### C BC ####[facility] [address] [place] [address]Dr. Zafar Branham Platelet mean volume (Bld) [Entitic vol] 10.7 fL Normal 9.5-13.[address] [facility] Comment on above: Performed By: #### C BC ####[facility] [address] [place] [address]Dr. Zafar Branham PLT 353 103/ul Normal 150-[address] [facility] Comment on above: Performed By: #### C BC ####[facility] [address] [place], [place] [address]Dr. Zafar Branham RBC 4.66 106/ul Normal 4.20-5.[address] [facility] Comment on above: Performed By: #### C BC ####[facility] [address] [place] [id number]. Zafar Branham WBC 9.2 103/ul Normal 4.0-11.[address] [facility] Comment on above: Performed By: #### C BC ####[facility] [address] [place] [id number]. Zafar Branham CRPon 02-09-2023 CRP 1.0 mg/dL Normal <=1.[address] [facility] Comment on above: Performed By: #### C RP, CMP, TSH, LIPID ####[facility] [address] [place] [id number]. Zafar Branham FREE T4on 02-09-2023 Free T4 [Mass/Vol] 1.01 ng/dL Normal 0.76-1.46 [facility] Comment on above: Performed By: #### F T4 #### [facility] [address] [address] [address] Zafar Branham LIPID PROFILEon 02-09-2023 CHOL-HDL RATIO NORM SEE BELOW Normal [facility] Comment on above: Result Comment: 3.3 - 4.4 LOW RISK 4.4 - 7.1 AVERAGE RISK 7.1 - 11.0 MODERATE RISK >11.0 HIGH RISK Performed By: #### C RP, CMP, TSH, LIPID ####[facility] [address] [place] [address]Dr. Zafar Branham Cholesterol [Mass/Vol] 230 mg/dL Critically high <=200 [facility] Comment on above: Performed By: #### C RP, CMP, TSH, LIPID ####[facility] [address] [place] [address]Dr. Zafar Branham Cholesterol in HDL [Mass/Vol] 71 mg/dL Critically high 40-60 [facility] Comment on above: Performed By: #### C RP, CMP, TSH, LIPID ####[facility] [address] [place] [address]Dr. Zafar Branham Cholesterol in LDL [Mass/Vol] 139.4 mg/dL Normal [facility] Comment on above: Performed By: #### C RP, CMP, TSH, LIPID ####[facility] [address] [place] [address]Dr. Zafar Branham Cholesterol.total/C holesterol in HDL [Mass ratio] 3.2 {ratio} Normal [facility] Comment on above: Performed By: #### C RP, CMP, TSH, LIPID ####[facility] [address] [place] [address]Dr. Zafar Branham HDL NORMAL > or = 60 mg/dl - LO W CARDIOVASCULAR RISK <40 mg/dl - HIGH CARDIOVASCULAR RISK Normal [facility] Comment on above: Performed By: #### C RP, CMP, TSH, LIPID ####[facility] [address] [place] [address]Dr. Zafar Branham LDL CALC NORMAL SEE BELOW Normal [facility] Comment on above: Result Comment: <100 mg/dl OPTIMAL 100 - 129 mg/dl NEAR OR ABOVE OPTIMAL 130 - 159 mg/dl BORDERLINE HIGH 160 - 189 mg/dl HIGH >190 mg/dl VERY HIGH Performed By: #### C RP, CMP, TSH, LIPID ####[facility] [address] [place], [place] [address]ZqDr. Zafar Branham Triglyceride [Mass/Vol] 98 mg/dL Normal <=150 [facility] Comment on above: Performed By: #### C RP, CMP, TSH, LIPID ####[facility] [address] [place], [place] [address]GjBryant Branham VLDL CALC 19.6 mg/dL Normal [facility] Comment on above: Performed By: #### C RP, CMP, TSH, LIPID ####[facility] [address] [place] [id number] Branham URon 02-09-2023 , QUAL Negative Normal NEGATIVE [facility] Comment on above: Performed By: #### U AMIC, PREGU #### [facility] [address] [address] [address] Zafar Branham PROF 14(COMP METB)on 023 Albumin [Mass/Vol] 4.0 g/dL Normal 3.4-5.0 [facility] Comment on above: Performed By: #### C RP, CMP, TSH, LIPID #### [facility] [address] [address] [address] Zafar Branham Albumin/Globulin [Mass ratio] 0.9 {ratio} Normal [facility] Comment on above: Performed By: #### C RP, CMP, TSH, LIPID #### [facility] [address] [address] [address] Zafar Branham ALP [Catalytic activity/Vol] 94 U/L Normal 46-116 [facility] Comment on above: Performed By: #### C RP, CMP, TSH, LIPID #### [facility] [address] [address] [address] Zafar Branham ALT [Catalytic activity/Vol] 30 U/L Normal 14-59 [facility] Comment on above: Performed By: #### C RP, CMP, TSH, LIPID #### [facility] [address] [address] [address] Zafar Branham Anion gap [Moles/Vol] 13.6 mmol/L Normal [facility] Comment on above: Performed By: #### C RP, CMP, TSH, LIPID #### [facility] [address] [address] [address] Zafar Branham AST [Catalytic activity/Vol] 23 U/L Normal 15-37 [facility] Comment on above: Performed By: #### C RP, CMP, TSH, LIPID #### [facility] [address] [place] [address] Dr. Zafar Branham Bilirubin [Mass/Vol] 0.3 mg/dL Normal 0.2-1.0 [facility] Comment on above: Performed By: #### C RP, CMP, TSH, LIPID #### [facility] [address] [address] [address] Zafar Branham Calcium [Mass/Vol] 9.7 mg/dL Normal 8.5-10.1 [facility] Comment on above: Performed By: #### C RP, CMP, TSH, LIPID #### [facility] [address] [address] [address] Zafar Branham Chloride [Moles/Vol] 100 mmol/L Normal 98-[address] [facility] Comment on above: Performed By: #### C RP, CMP, TSH, LIPID #### [facility] [address] [place] [address] Dr. Zafar Branham CO2 [Moles/Vol] 26.6 mmol/L Normal 21.0-32.0 [facility] Comment on above: Performed By: #### C RP, CMP, TSH, LIPID #### [facility] [address] [address] [address] Zafar Branham Creatinine [Mass/Vol] 1.00 mg/dL Normal 0.55-1.02 [facility] Comment on above: Performed By: #### C RP, CMP, TSH, LIPID #### [facility] [address] [address] [address] Zafar Branham EGFR-AF BERMUDIAN >60 Normal >=60 [facility] Comment on above: Performed By: #### C RP, CMP, TSH, LIPID #### [facility] [address] [address] [address] Zafar Branham EGFR-NON AF BERMUDIAN >60 Normal >=60 [facility] Comment on above: Performed By: #### C RP, CMP, TSH, LIPID #### [facility] [address] [address] [address] Zafar Branham Globulin (S) [Mass/Vol] 4.5 g/dL Normal [facility] Comment on above: Performed By: #### C RP, CMP, TSH, LIPID #### [facility] [address] [address] [address] Zafar Branham Glucose [Mass/Vol] 93 mg/dL Normal 74-106 [facility] Comment on above: Performed By: #### C RP, CMP, TSH, LIPID #### [facility] [address] [place] [address] Dr. Zafar Branham Potassium [Moles/Vol] 4.2 mmol/L Normal 3.5-5.1 [facility] Comment on above: Performed By: #### C RP, CMP, TSH, LIPID #### [facility] [address] [place] [address] Dr. Zafar Branham Protein [Mass/Vol] 8.5 g/dL Critically high 6.4-8.2 [facility] Comment on above: Performed By: #### C RP, CMP, TSH, LIPID #### [facility] [address] [address] [address] Zafar Branham Sodium [Moles/Vol] 136 mmol/L Normal 136-145 [facility] Comment on above: Performed By: #### C RP, CMP, TSH, LIPID #### [facility] [address] [place] [address] Dr. Zafar Branham Urea nitrogen [Mass/Vol] 10.0 mg/dL Normal 7.0-18.0 [facility] Comment on above: Performed By: #### C RP, CMP, TSH, LIPID #### [facility] [address] [place] [address] Dr. Zafar Branham Urea nitrogen/Creatinine [Mass ratio] 10.0 mg/mg Normal [facility] Comment on above: Performed By: #### C RP, CMP, TSH, LIPID #### [facility] [address] [address] [address] Zafar Branham SED RATE WESTERGRENon 2022 SED RATE 49 mm/hr Critically high <=20 [facility] Comment on above: Performed By: #### S EDR ####[facility] [address] [place] [address]Dr. Zafar Branham TSHon 02-09-2023 TSH 0.590 uIU/mL Normal 0.358-3.740 [facility] Comment on above: Performed By: #### C RP, CMP, TSH, LIPID #### [facility] [address] [place] [address] Dr. Zafar Branham UA RANDOM W/MICROSCOPICon BACTERIA NONE SEEN Normal NONE SEEN [facility] Comment on above: Performed By: #### U AMIC, PREGU #### [facility] [address] [place] [address] Dr. Zafar Branham Bilirubin Ql (U) Negative Normal NEGATIVE [facility] Comment on above: Performed By: #### U AMIC, PREGU #### [facility] [address] [place] [address] Dr. Zafar Branham CAST NONE SEEN Normal NONE SEEN [facility] Comment on above: Performed By: #### U AMIC, PREGU #### [facility] [address] [place] [address] Dr. Zafar Branham Clarity (U) CLEAR Normal CLEAR [facility] Comment on above: Performed By: #### U AMIC, PREGU #### [facility] [address] [place] [address] Dr. Zafar Branham Color (U) LT. YELLOW Normal YELLOW [facility] Comment on above: Performed By: #### U AMIC, PREGU #### [facility] [address] [place] [address] Dr. Zafar Branham Crystals LM Nom (Urine sed) NONE SEEN Normal NONE SEEN [facility] Comment on above: Performed By: #### U AMIC, PREGU #### [facility] [address] [address] [address] Zafar Branham Epithelial cells LM Ql (Urine sed) FEW Abnormal NONE SEEN /RARE [facility] Comment on above: Performed By: #### U AMIC, PREGU #### [facility] [address] [address] [address] Zafar Branham Glucose Ql (U) Negative Normal NEGATIVE [facility] Comment on above: Performed By: #### U AMIC, PREGU #### [facility] [address] [address] [address] Zafar Branham Hemoglobin Ql (U) SMALL Abnormal NEGATIVE [facility] Comment on above: Performed By: #### U AMIC, PREGU #### [facility] [address] [address] [address] Zafar Branham Ketones Ql (U) Negative Normal NEGATIVE [facility] Comment on above: Performed By: #### U AMIC, PREGU #### [facility] [address] [address] [address] Zafar Branham LEUKOCYTES Negative Normal NEGATIVE [facility] Comment on above: Performed By: #### U AMIC, PREGU #### [facility] [address] [address] [address] Zafar Branham MUCOUS NONE SEEN Normal NONE SEEN [facility] Comment on above: Performed By: #### U AMIC, PREGU #### [facility] [address] [address] [address] Zafar Branham Nitrite Ql (U) Negative Normal NEGATIVE [facility] Comment on above: Performed By: #### U AMIC, PREGU #### [facility] [address] [address] [address] Zafar Branham pH (U) 6.0 [pH] Normal 5-[address] [facility] Comment on above: Performed By: #### U AMIC, PREGU #### [facility] [address] [address] [address] Zafar Branham RBC 0-2 Normal 0-2 [facility] Comment on above: Performed By: #### U AMIC, PREGU #### [facility] [address] [place] [address] Dr. Zafar Branham SPEC GRAVITY <=1.005 Abnormal 1.005-<=1.025 [facility] Comment on above: Performed By: #### U AMIC, PREGU #### [facility] [address] [place] [address] Dr. Zafar Branham UA PROTEIN Negative Normal NEGATIVE/ TRACE [facility] Comment on above: Performed By: #### U AMIC, PREGU #### [facility] [address] [place] [address] Dr. Zafar Branham Urobilinogen Qn (U) 0.2 {Ramy'U}/dL Normal 0.2 - 1. 0 [facility] Comment on above: Performed By: #### U AMIC, PREGU #### [facility] [address] [place] [address] Dr. Zafar Branham WBC NONE SEEN Normal NONE SEEN [facility] Comment on above: Performed By: #### U AMIC, PREGU #### [facility] [address] [place] [address] Dr. Zafar Branham XR knee RT 4V*on 02-07-2023 XR knee RT 4V* [facility] [address] XRay Report Signed Patient: Vy Mckeon MR#: [id number] 5 : 1990 Acct:[id number] Age/Sex: 32 / F ADM Date: 02/07/23 Loc: XDUCLY Room: Type: [facility] Attending Dr: Shayla DENNEY Copies to: JUMANA [...] 02/07/23 1000 Signed By: 02/07/23 1001 Normal [facility] XR knee RT 4V* [facility] Other XR knee RT 4V* [facility] Other XR knee RT 4V* [address] [place] [address] [employer] Other XR knee RT 4V* [place] [address] No rt [employer] Other XR knee RT 4V* XRay Report [employer] Other XR knee RT 4V* Signed [employer] Other XR knee RT 4V* Patient: Vy Mckeon MR#: [id number] [place] [employer] Other XR knee RT 4V* 5 [employer] Other XR knee RT 4V* : 1990 Acct:[id number] [employer] Other XR knee RT 4V* Age/Sex: 32 / F ADM Date: 02/07/23 [employer] Other XR knee RT 4V* Loc: XDUCLY Room: Type: [facility] [employer] Other XR knee RT 4V* Attending Dr: Shayla Valle FAMILY HELPER-C [employer] Other XR knee RT 4V* Copies to: JUMANA Christianson [employer] Other XR knee RT 4V* Ordering Provider: JUMANA Christianson [employer] Other XR knee RT 4V* Date of Service: 02/07/23 [employer] Other XR knee RT 4V* XR/XR knee RT 4V*: RIGHT KNEE PAIN [employer] Other XR knee RT 4V* RIGHT KNEE - 4 views [employer] Other XR knee RT 4V* COMPARISON: None [place] [employer] Other XR knee RT 4V* CLINICAL DATA: Patient fell last night and landed on right anterior knee. Pain, swelling and [employer] Other XR knee RT 4V* abrasions. [employer] Other XR knee RT 4V* AP, lateral and both oblique views were obtained. There is no fracture or dislocation. There is no [employer] Other XR knee RT 4V* significant knee effusion or focal soft tissue swelling. [employer] Other XR knee RT 4V* XR/XR knee RT 4V* [employer] Other XR knee RT 4V* IMPRESSION: [employer] Other XR knee RT 4V* NO ACUTE BONY INJURY. [employer] Other XR knee RT 4V* Impression dictated by: Rama Garsia M.D.02/07/2023 10:01 AM [employer] Other XR knee RT 4V* Dictation Location: [place] [address] [employer] Other XR knee RT 4V* Transcribed By: MILKA 02/07/23 1001 [employer] Other XR knee RT 4V* Dictated By: Rama Garsia MD 02/07/23 1000 [employer] Other XR knee RT 4V* Signed By: [employer] Other XR knee RT 4V* 02/07/23 1001 Back& Other XR HIPS KARELY 5V W PELVISon XR [...] JO-ANN CHACON Date: 2022-12-17 13:04 Normal [address] [facility] PREG QUANT HCGon 07-04-2022 HCG QUANT 1 mIU/mL Normal [facility] Comment on above: Performed By: #### P REGQNT #### [facility] [address] [place] [address] Dr. Zafar Branham HCG RANGE SEE BELOW Normal [facility] Comment on above: Result Comment: 5-50 0.2-1 WEEK 50-500 1-2 WEEKS 100-5,000 2-3 WEEKS 500-10,000 3-4 WEEKS 1,000-50,000 4-5 WEEKS 10,000-100,000 5-6 WEEKS 15,000-200,000 6-8 WEEKS 10,000-100,000 2-3 MONTHS Performed By: #### P REGQNT #### [facility] [address] [place] [address] Dr. Zafar Branham PREG QUANT HCGon 06-08-2022 HCG QUANT 16 mIU/mL Normal [facility] Comment on above: Performed By: #### P REGQNT ####[facility] [address] [place] [address]Dr. Zafar Branham HCG RANGE SEE BELOW Normal [facility] Comment on above: Result Comment: 5-50 0.2-1 WEEK 50-500 1-2 WEEKS 100-5,000 2-3 WEEKS 500-10,000 3-4 WEEKS 1,000-50,000 4-5 WEEKS 10,000-100,000 5-6 WEEKS 15,000-200,000 6-8 WEEKS 10,000-100,000 2-3 MONTHS Performed By: #### P REGQNT ####[facility] [address] [place] [id number]. Zafar Branham CBC AUTO DIFFon 05-23-2022 BASO # 0.0 103/ul Normal 0.0-0.1 [facility] Comment on above: Performed By: #### C BC #### [facility] [address] [place] [address] [address] Zafar Branham Basophils/100 WBC (Bld) 0.6 % Normal 0.2-2.0 [facility] Comment on above: Performed By: #### C BC #### [facility] [address] [place] [address] [address] Zafar Branham EO # 0.3 103/ul Normal 0.0-0.7 [facility] Comment on above: Performed By: #### C BC #### [facility] [address] [place] [address] [address] Zafar Branham Eosinophils/100 WBC (Bld) 6.5 % Normal 0.9-7.[address] [facility] Comment on above: Performed By: #### C BC #### [facility] [address] [place] [address] [address] Zafar Branham Erythrocyte distribution width (RBC) [Ratio] 12.5 % Normal 11.0-15.[address] [facility] Comment on above: Performed By: #### C BC #### [facility] [address] [place] [address] [address] Zafar Branham Hematocrit (Bld) [Volume fraction] 37.2 % Normal 36.0-48.0 [facility] Comment on above: Performed By: #### C BC #### [facility] [address] [place] [address] Dr. Zafar Branham Hemoglobin (Bld) [Mass/Vol] 12.1 g/dL Normal 12.0-16.0 [facility] Comment on above: Performed By: #### C BC #### [facility] [address] [place] [address] Dr. Zafar Branham IG # 0.01 10e3/ul Normal 0.00-0.03 [facility] Comment on above: Performed By: #### C BC #### [facility] [address] [place] [address] Dr. Zafar Branham IG % 0.2 % Normal 0.0-0.5 [facility] Comment on above: Performed By: #### C BC #### [facility] [address] [place] [address] Dr. Zafar Branham LYMPH # 1.5 103/ul Normal 1.2-3.[address] [facility] Comment on above: Performed By: #### C BC #### [facility] [address] [place] [address] Dr. Zafar Branham Lymphocytes/100 WBC (Bld) 29.8 % Normal 20.5-60.0 [facility] Comment on above: Performed By: #### C BC #### [facility] [address] [place] [address] Dr. Zafar Branham MANUAL DIFF REQ NO Normal [facility] Comment on above: Performed By: #### C BC #### [facility] [address] [place] [address] Dr. Zafar Branham MCH (RBC) [Entitic mass] 29.1 pg Normal 26.7-34.0 [facility] Comment on above: Performed By: #### C BC #### [facility] [address] [place] [address] Dr. Zafar Branham MCHC (RBC) [Mass/Vol] 32.5 g/dL Normal 29.9-35.2 [facility] Comment on above: Performed By: #### C BC #### [facility] [address] [place], [place] [address] Dr. Zafar Branham MCV (RBC) [Entitic vol] 89.4 fL Normal 81.0-99.[address] [facility] Comment on above: Performed By: #### C BC #### [facility] [address] [place] [address] Dr. Zafar Branham MONO # 0.4 103/ul Normal 0.3-0.[address] [facility] Comment on above: Performed By: #### C BC #### [facility] [address] [place] [address] Dr. Zafar Branham Monocytes/100 WBC (Bld) 7.9 % Normal 1.7-12.[address] [facility] Comment on above: Performed By: #### C BC #### [facility] [address] [place] [address] Dr. Zafar Branham NEUT # 2.7 103/ul Normal 1.4-6.[address] [facility] Comment on above: Performed By: #### C BC #### [facility] [address] [place] [address] Dr. Zafar Branham Neutrophils/100 WBC (Bld) 55.0 % Normal 43.0-75.[address] [facility] Comment on above: Performed By: #### C BC #### [facility] [address] [place] [address] Dr. Zafar Branham Platelet mean volume (Bld) [Entitic vol] 10.0 fL Normal 9.5-13.[address] [facility] Comment on above: Performed By: #### C BC #### [facility] [address] [place] [address] Dr. Zafar Branham PLT 229 103/ul Normal 150-[address] [facility] Comment on above: Performed By: #### C BC #### [facility] [address] [place] [address] Dr. Zafar Branham RBC 4.16 106/ul Critically low 4.20-5.40 [facility] Comment on above: Performed By: #### C BC #### [facility] [address] [place] [address] Dr. Zafar Branham WBC 5.0 103/ul Normal 4.0-11.[address] [facility] Comment on above: Performed By: #### C BC #### [facility] [address] [place], [place] [address] Dr. Zafar Branham TYPE AND SCREENon 05-23-2022 TYPE AND SCREEN Negative Normal [facility] Comment on above: Performed By: #### T NS ####[facility] [address] [place], [place] [address]FmDr. Zafar Branham Covid-19 PCR ([facility]on 05-01 SARS-CoV-2 (COVID-19) RNA MANOLO+probe Ql (Unsp spec) Not detected Normal NOT DETECTED [facility] Comment on above: Result Comment: This test is not yet approved or cleared by the [place] FDA. When there are no FDA-approved or cleared tests available, and other criteria are met, FDA can make tests available under an emergency access mechanism called an Emergency Use Authorization (EUA). The EUA for this test is supported by the Line Camera Operator of Health and Human Service's (HHS's) declaration [...] SARS-CoV-2. Performed By: #### C VDTBH #### [facility] [address] [place], [place] [address] Dr. Zafar Branham US PREG TVon 05-18-2022 [...] by: BOBBI SIMONS Date: 2022-05-18 19:25 Normal [facility] US PREG TVon 05-03-2022 US PREG [...] BOBBI SIMONS Date: 2022-05-03 16:32 Normal [address] [facility] Chlamydia/GC DNA, TPon 05-05 Chlamydia Probe, TP Negative Normal NEG [facility] Comment on above: Result Comment: [...] nucleic acid target. Performed By: #### [facility] [place] #### [place] [address] [place] [address] Health Care Consultant: King Boone MD Gonorrhea Probe, TP Negative Normal NEG [facility] Comment on above: Result Comment: [...] target. Performed By: #### C YTC #### [address] [address] Health Care Consultant: King Boone MD HPV DNA High Riskon 05-05-20 20 HPV Interp [facility] [...] purposes. Performed By: #### H PVH #### [address] [address] Health Care Consultant: King Boone MD HPV Sample .THIN PREP [facility] Comment on above: Performed By: #### H PVH #### [facility] [email or web address] [address] [place] [address] Health Care Consultant: King Boone MD HPV Type 16 Not Detected Normal NOTDET [facility] Comment on above: Performed By: #### H PVH #### [facility] [email or web address] [address] [place] [address] Health Care Consultant: King Boone MD HPV Type 18 Not Detected Normal [facility] Comment on above: Performed By: #### H PVH #### [facility] [address] [place] [address] Health Care Consultant: King Boone MD Other High Risk HPV Not Detected Normal [facility] Comment on above: Performed By: #### H PVH #### [facility] [email or web address] [address] [place] [address] Health Care Consultant: King Boone MD Source .ENDOCERVIX Normal [facility] Comment on above: Performed By: #### H PVH #### [address] [address] Health Care Consultant: King Boone MD Otheron 05-04-2020 Direct Exam Negative [place], [place] VAGINITIS DNA PROBEon 2019 Direct Exam Positive Abnormal [place] Direct Exam Method of testing is a DNA probe intended for detection and identification of Diane species, Gardnerella vaginalis, and Trichomonas vaginalis nucleic acid in vaginal fluid specimens from patients with symptoms of vaginitis/vaginosis. [place] Interpretation and review of laboratory results Abnormal [place] Special Requests NOT REPORTED [place] Specimen Description .VAGINAL SWAB [place] Vaginitis DNA Probeon 2019 Vaginitis DNA [...] symptoms of vaginitis/vaginosis. Report Status FINAL 05/04/2020 [facility] Comment on above: Performed By: #### V AGDNA #### [address] [address] Health Care Consultant: King Boone MD Cytologyon 05-03-2020 Cytology (NOTE) INTERPRETATION Endocervical material, (Thin prep vial, Imaging-assisted review): Specimen Adequacy: Satisfactory for evaluation. - Endocervical/transfor mation zone component present. Descriptive Diagnosis: Negative for intraepithelial lesion or malignancy. Shift in ray suggestive of bacterial vaginosis. Comments: High Risk HPV testing was ordered. Hospitality Job Titles: JAYLIN Higgins(ASCP) Electronically Signed Out ana/05/07/2020 Procedure/Addendum [...] GYNECOLOGIC CYTOLOGY REPORT Patient Name: VY MCKEON [facility] Rec: [id number] Path Number: [id number] [facility] ANATOMIC PATHOLOGY [address] [place] [id number] [facility] Comment on above: Performed By: #### P PPVP #### [facility] [address] [place] [address] Health Care Consultant: King Boone MD Social History Date Type Detail Facility Start: 12-26-2023 End: 01-21-2024 Alcohol intake Current drinker of alcohol (finding) [facility] Start: 11-12-2023 Alcohol intake Lifetime non-d rhys (finding) [facility] Start: 10-10-2023 End: 12-17-2023 Alcohol intake Ex-drinker (finding) [facility] Start: 09-10-2023 End: 02-20-2024 Sex Assigned At [facility] Start: 09-10-2023 End: 02-20-2024 History of Social function [facility] Start: 07-12-2023 [facility] Start: 03-09-2023 Education [facility] Start: 03-09-2023 Alcohol Comment Caffeine intak e: 1-2 cups per day coffee, pop [facility] Start: 04-05-2022 End: 12-26-2023 Tobacco smoking status NHIS Never smoked tobacco [facility] Start: 04-05-2022 End: 12-26-2023 Tobacco use and exposure Smokeless tobacco non-user [facility] Start: 1990 Sex Assigned At Not on file [place], [place] Start: 1990 Sex Assigned At Female [facility] Assertion Alcohol consumpt ion screening (procedure) [facility] Work Phone: Assertion [facility] Assertion Finding of alcoh ol intake (finding) [facility] Work Phone: Assertion Sexually active (finding) [facility] Work Phone: Assertion Gender identity finding (finding) [facility] Work Phone: Assertion Finding of sexua l orientation (finding) [facility] Work Phone: Tobacco smoking status Unknown if ever smoked [facility] Assertion Emotional stress (finding) [facility] Work Phone: Assertion Contraception (finding) [facility] Work Phone: How hard is it for you to pay for the very basics like food, housing, medical care, and heating Very hard [facility] [place] [facility] NEGATED: Highlighted row Assertion He has not had 5 or more drinks in a day within the past year. [facility] Work Phone: NEGATED: Highlighted row Assertion Exposure to pollution (event) [facility] Work Phone: NEGATED: Highlighted row Assertion Tobacco user (finding) [facility] Work Phone: NEGATED: Highlighted row Assertion Current drinker of alcohol (finding) [facility] Work Phone: NEGATED: Highlighted row Assertion Finding relating to drug misuse behavior (finding) [facility] Work Phone: Vital Signs Date Time Vital Sign Value Performing Clinician Facility 01-21-2024 11:59-0400 Body weight 87.1 kg Ana Peoples MD Work Phone: [facility] 01-21-2024 11:59-0400 Diastolic blood pressure 75 mm[Hg] Ana Peoples MD Work Phone: [facility] 01-21-2024 11:59-0400 Heart rate 108 /min Ana Peoples MD Work Phone: [facility] 01-21-2024 11:59-0400 Systolic blood pressure 125 mm[Hg] Ana Peoples MD Work Phone: [facility] 01-21-2024 11:02-0400 Body height 170.2 cm Ana Peoples MD Work Phone: [facility] 01-21-2024 11:02-0400 Body mass index (BMI) [Ratio] 30.07 kg/m2 Ana Peoples MD Work Phone: [facility] 01-21-2024 11:02-0400 Body weight 87.09 kg Ana Peoples MD Work Phone: [facility] 01-04-2024 14:31-0400 Body temperature 97.11 [degF] Fransico Sharp MD Work Phone: [facility] 01-04-2024 14:31-0400 Diastolic blood pressure 83 mm[Hg] Fransico Sharp MD Work Phone: [facility] 01-04-2024 14:31-0400 Heart rate 94 /min Fransico Sharp MD Work Phone: [facility] 01-04-2024 14:31-0400 Respiratory rate 20 /min Fransico Sharp MD Work Phone: [facility] 01-04-2024 14:31-0400 SaO2% (BldA) [Mass fraction] 99 % Fransico Sharp MD Work Phone: [facility] 01-04-2024 14:31-0400 Systolic blood pressure 148 mm[Hg] Fransico Sharp MD Work Phone: [facility] 12-17-2023 13:42-0400 Body height 170.2 cm Freddie Delgado EDUCATION FINANCE PROCESSOR-[employer]ACE[employer] Work Phone: [facility] 12-17-2023 13:42-0400 Body mass index (BMI) [Ratio] 29.47 kg/m2 Freddie Delgado EDUCATION FINANCE PROCESSOR-[employer]ACE[employer]ER Work Phone: [facility] 12-17-2023 13:42-0400 Body temperature 98.71 [degF] Freddie Delgado EDUCATION FINANCE PROCESSOR-[employer]ACE[employer]ER Work Phone: [facility] 12-17-2023 13:42-0400 Body weight 85.37 kg Freddie Delgado EDUCATION FINANCE PROCESSOR-[employer]ACE[employer]ER Work Phone: [facility] 12-17-2023 13:42-0400 Diastolic blood pressure 80 mm[Hg] Freddie Delgado EDUCATION FINANCE PROCESSOR-[employer] Work Phone: [facility] 12-17-2023 13:42-0400 Heart rate 86 /min Freddie Delgado EDUCATION FINANCE PROCESSOR-[employer] Work Phone: [facility] 12-17-2023 13:42-0400 SaO2% (BldA) [Mass fraction] 96 % Freddie Delgado EDUCATION FINANCE PROCESSOR-[employer]ACE[employer]KER Work Phone: [facility] 12-17-2023 13:42-0400 Systolic blood pressure 128 mm[Hg] Freddie Delgado EDUCATION FINANCE PROCESSOR-[employer]OO[employer]ACE[employer]KER Work Phone: [facility] 11-12-2023 13:13-0500 Body mass index (BMI) [Ratio] 28.47 kg/m2 Dionne Xiao PA Work Phone: [facility] [employer] 11-12-2023 13:13-0500 Body weight 82.46 kg Dionne Xiao PA Work Phone: [facility] [employer] 11-12-2023 13:13-0500 Diastolic blood pressure 72 mm[Hg] Dionne Xiao PA Work Phone: [facility] [employer] 11-12-2023 13:13-0500 Systolic blood pressure 114 mm[Hg] Dionne Xiao PA Work Phone: [facility] [employer] 05-29-2023 13:25-0400 Body height 170.18 cm Shayla Valle Other [employer] Other 05-29-2023 13:25-0400 Body mass index (BMI) [Ratio] 28.22 kg/m2 Shayla Valle Other [employer] Other 05-29-2023 13:25-0400 Body temperature 97.8 [degF] Shayla Valle Other [employer] Other 05-29-2023 13:25-0400 Body weight 81.74 kg Shayla Valle Other [employer] Other 05-29-2023 13:25-0400 Diastolic blood pressure 79 mm[Hg] Shayla Valle Other [employer] Other 05-29-2023 13:25-0400 Respiratory rate 18 /min Shayla Tori Other [employer] Other 05-29-2023 13:25-0400 SaO2% (BldA) [Mass fraction] 96 % Shayla Tori Other [employer] Other 05-29-2023 13:25-0400 Systolic blood pressure 127 mm[Hg] Shayla Tori Other [employer] Other 03-19-2023 14:37-0400 Diastolic blood pressure 69 mm[Hg] FAMILY HELPER-C Shayla Tori Work Phone: [facility] 03-19-2023 14:37-0400 Heart rate 76 /min FAMILY HELPER-C Shayla Tori Work Phone: [facility] 03-19-2023 14:37-0400 Respiratory rate 16 /min FAMILY HELPER-C Shayla Tori Work Phone: [facility] 03-19-2023 14:37-0400 SaO2% (BldA) [Mass fraction] 96 % FAMILY HELPER-C Shayla Tori Work Phone: [facility] 03-19-2023 14:37-0400 Systolic blood pressure 119 mm[Hg] FAMILY HELPER-C Shayla Tori Work Phone: [facility] 03-19-2023 12:18-0400 Body height 170.18 cm FAMILY HELPER-C Shayla Tori Work Phone: [facility] 03-19-2023 12:18-0400 Body temperature 97.9 [degF] FAMILY HELPER-C Shayla Tori Work Phone: [facility] 03-19-2023 12:18-0400 Body weight 84.82 kg FAMILY HELPER-C Shayla Tori Work Phone: [facility] 02-12-2023 14:30-0400 Body height 170.18 cm Yoel Jarrett Other [employer] Other 02-12-2023 14:30-0400 Body mass index (BMI) [Ratio] 30.54 kg/m2 Yoel Scovanner Other [employer] Other 02-12-2023 14:30-0400 Body weight 88.45 kg Yoel Willydonna Other [employer] Other 02-12-2023 14:30-0400 Diastolic blood pressure 80 mm[Hg] Yoel Scovanner Other [employer] Other 02-12-2023 14:30-0400 Systolic blood pressure 127 mm[Hg] Yoel Scovanner Other [employer] Other 02-07-2023 10:00-0400 Body height 170.18 cm Shayla Tori Other [employer] Other 02-07-2023 10:00-0400 Body mass index (BMI) [Ratio] 30.54 kg/m2 Shayla Valle Other [employer] Other 02-07-2023 10:00-0400 Body temperature 97.9 [degF] Shayla Valle Other [employer] Other 02-07-2023 10:00-0400 Body weight 88.45 kg Shayla Valle Other [employer] Other 02-07-2023 10:00-0400 Respiratory rate 18 /min Shayla Valle Other [employer] [facility] [employer] Other 02-07-2023 10:00-0400 SaO2% (BldA) [Mass fraction] 97 % Shayla Caseymond Other [employer] Other 05-03-2020 11:41-0400 BMI (Body Mass Index) 24.5 kg/m2 [facility] Work Phone: 05-03-2020 11:41-0400 Body Temperature 96.3 [degF] [facility] Work Phone: 05-03-2020 11:41-0400 Body weight 70.9 kg [facility] Work Phone: 05-03-2020 11:41-0400 BP Diastolic 80 mm[Hg] [facility] Work Phone: 05-03-2020 11:41-0400 BP Systolic 120 mm[Hg] [facility] Work Phone: 05-03-2020 11:41-0400 BSA (Body Surface Area) 1.82 m2 [facility] Work Phone: 05-03-2020 11:41-0400 Height 170.18 cm [facility] Work Phone: 05-03-2020 11:41-0400 Pulse (Heart Rate) 86 /min [facility] Work Phone: 05-03-2020 11:41-0400 Pulse Oximetry 93 % [facility] Work Phone: 05-03-2020 11:41-0400 Respiratory Rate 18 /min [facility] Work Phone: 04-08-2020 08:37-0400 BMI (Body Mass Index) 24.3 kg/m2 [facility] Work Phone: 04-08-2020 08:37-0400 Body Temperature 99 [degF] [facility] Work Phone: 04-08-2020 08:37-0400 Body weight 70.4 kg [facility] Work Phone: 04-08-2020 08:37-0400 BP Diastolic 80 mm[Hg] [facility] Work Phone: 04-08-2020 08:37-0400 BP Systolic 110 mm[Hg] [facility] Work Phone: 04-08-2020 08:37-0400 BSA (Body Surface Area) 1.82 m2 [facility] Work Phone: 04-08-2020 08:37-0400 Height 170.18 cm [facility] Work Phone: 04-08-2020 08:37-0400 Pulse (Heart Rate) 82 /min [facility] Work Phone: 04-08-2020 08:37-0400 Pulse Oximetry 98 % [facility] Work Phone: 04-08-2020 08:37-0400 Respiratory Rate 18 /min [facility] Work Phone: 03-29-2020 09:52-0400 Body height 170.18 cm [facility] Work Phone: [facility] Work Phone: Comment on above: self 03-29-2020 09:52-0400 Body mass index (BMI) [Ratio] 23.5 kg/m2 [facility] Work Phone: [facility] Work Phone: Comment on above: self 03-29-2020 09:52-0400 Body surface area Derived from formula 1.79 m2 Sally Morejon [employer] Work Phone: [facility] Work Phone: Comment on above: self 03-29-2020 09:52-0400 Body weight 68.04 kg Sally Morejon [employer] Work Phone: [facility] Work Phone: Comment on above: self 10-14-2019 08:30-0500 BMI (Body Mass Index) 24.1 kg/m2 [facility] Work Phone: 10-14-2019 08:30-0500 Body Temperature 98.5 [degF] [facility] Work Phone: 10-14-2019 08:30-0500 Body weight 69.76 kg [facility] Work Phone: 10-14-2019 08:30-0500 BP Diastolic 78 mm[Hg] [facility] Work Phone: 10-14-2019 08:30-0500 BP Systolic 132 mm[Hg] [facility] Work Phone: 10-14-2019 08:30-0500 BSA (Body Surface Area) 1.81 m2 [facility] Work Phone: 10-14-2019 08:30-0500 Height 170.18 cm [facility] Work Phone: 10-14-2019 08:30-0500 Pulse (Heart Rate) 88 /min [facility] Work Phone: 10-14-2019 08:30-0500 Pulse Oximetry 98 % [facility] Work Phone: 10-14-2019 08:30-0500 Respiratory Rate 18 /min [facility] Work Phone: 10-14-2019 08:30-0500 SaO2% (BldA) [Mass fraction] 98 % Sally Morejon [employer] Work Phone: [facility] Work Phone: 09-04-2019 13:52-0500 BMI (Body Mass Index) 22.9 kg/m2 [facility] Work Phone: 09-04-2019 13:52-0500 Body Temperature 98.5 [degF] [facility] Work Phone: 09-04-2019 13:52-0500 Body weight 66.23 kg [facility] Work Phone: 09-04-2019 13:52-0500 BP Diastolic 90 mm[Hg] [facility] Work Phone: 09-04-2019 13:52-0500 BP Systolic 122 mm[Hg] [facility] Work Phone: 09-04-2019 13:52-0500 BSA (Body Surface Area) 1.77 m2 [facility] Work Phone: 09-04-2019 13:52-0500 Height 170.18 cm [facility] Work Phone: 09-04-2019 13:52-0500 Pulse (Heart Rate) 98 /min [facility] Work Phone: 09-04-2019 13:52-0500 Pulse Oximetry 98 % [facility] Work Phone: 09-04-2019 13:52-0500 Respiratory Rate 18 /min [facility] Work Phone: 09-04-2019 13:52-0500 SaO2% (BldA) [Mass fraction] 98 % Sally Jean-Pierre [employer] Work Phone: [facility] Work Phone: 08-19-2019 09:32-0500 BMI (Body Mass Index) 23.2 kg/m2 [facility] Work Phone: 08-19-2019 09:32-0500 Body Temperature 98 [degF] [facility] Work Phone: 08-19-2019 09:32-0500 Body weight 67.31 kg [facility] Work Phone: 08-19-2019 09:32-0500 BP Diastolic 80 mm[Hg] [facility] Work Phone: 08-19-2019 09:32-0500 BP Systolic 120 mm[Hg] [facility] Work Phone: 08-19-2019 09:32-0500 BSA (Body Surface Area) 1.78 m2 [facility] Work Phone: 08-19-2019 09:32-0500 Height 170.18 cm [facility] Work Phone: 08-19-2019 09:32-0500 Pulse (Heart Rate) 90 /min [facility] Work Phone: 08-19-2019 09:32-0500 Pulse Oximetry 98 % [facility] Work Phone: 08-19-2019 09:32-0500 Respiratory Rate 18 /min [facility] Work Phone: 08-19-2019 09:32-0500 SaO2% (BldA) [Mass fraction] 98 % [facility] Work Phone: [facility] Work Phone: 07-28-2019 11:31-0400 BMI (Body Mass Index) 22.7 kg/m2 [facility] Work Phone: 07-28-2019 11:31-0400 Body Temperature 98.8 [degF] [facility] Work Phone: 07-28-2019 11:31-0400 Body weight 65.77 kg [facility] Work Phone: 07-28-2019 11:31-0400 BP Diastolic 84 mm[Hg] [facility] Work Phone: 07-28-2019 11:31-0400 BP Systolic 132 mm[Hg] [facility] Work Phone: 07-28-2019 11:31-0400 BSA (Body Surface Area) 1.76 m2 [facility] Work Phone: 07-28-2019 11:31-0400 Height 170.18 cm [facility] Work Phone: 07-28-2019 11:31-0400 Pulse (Heart Rate) 65 /min [facility] Work Phone: 07-28-2019 11:31-0400 Pulse Oximetry 97 % [facility] Work Phone: 07-28-2019 11:31-0400 Respiratory Rate 18 /min [facility] Work Phone: 07-28-2019 11:31-0400 SaO2% (BldA) [Mass fraction] 97 % [facility] Work Phone: [facility] Work Phone: Mental Status Date Assessment Result Facility Cognitive function 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 Fax sent to request path for a reread Included fed ex label. [facility] 03-11-2024 Miscellaneous Notes Formattin g of this note might be different from the original. Fax sent to request path for a reread Included fed ex label. documented in this encounter [facility] 03-06-2024 Evaluation note Diagnosis Skin cancer- Primary Unspecified malignant neoplasm of skin, site unspecified * Assessment & Plan Note - Ana Peoples MD - 03/06/2024 8:05 AM EDT Associated Problem(s): Skin cancer 03/06/[address] of neck and chest. I emailed with her oncologist via [employer]. He is ok with her going to39 weeks. I spoke with her OBGYN physician, Dr. Castaneda, who is in agreement. Pt will deliver at [facility]. Pt tells me induction set up [...] Ana Peoples MD documented in this encounter [facility]06-06-2024 NoteHNO ID: [id number] Author: ANA PEOPLES MD Service: ? Author Type: Physician Type: Progress Notes Filed: 03/06/2024 08:08 Note Text: [facility] STAFF Video visit follow up I have communicated my name and active licensure. The patient's identity and physical location were verified at the time of this visit. Either the patient or their legal route sales representative has been informed of the [...] chest. I emailed with her oncologist via [employer]. He is ok with her going to 39 weeks. I spoke with her OBGYN physician, Dr. Castaneda, who is in agreement. Pt will deliver at [facility]. Pt tells me induction set up for 38 / which is in the gestational age range [...] questions answered. MD Ana Britton, [facility]06-06-2024 History of Present illness Narrative* Ana Peoples MD - 03/06/2024 7:58 AM EDT [facility] Video visit follow up I have communicated my name and active licensure. The patient's identity and physical location wereverified at the time of this visit. Either the patient or their legal route sales representative has been informed of the [...] - Primary Current Assessment & Plan 03/06/2024 [facility] Pt had CT of neck and chest. I emailed with her oncologist via [employer]. He is ok with her going to39 weeks. I spoke with her OBGYN physician, Dr. Castaneda, who is in agreement. Pt will deliver at [facility]. Pt tells me induction set up for 38 / which is in the gestational age range [...] MD Ana Britton MD [facility] Telephone encounter Note * Telephone Encounter - Daisy Murray RN - 03/05/2024 9:23 AM EDT Pt updated Daisy Murray RN [facility]06-05-2024 Miscellaneous Notes* Telephone Encounter - Daisy [...] advise Daisy Murray RN [facility] Telephone encounter Note * Telephone Encounter - Usman Goldberg MD - 03/05/2024 8:59 AM EDT I think I already communicated that with her - CT's were negative for any metastatic disease. [facility] Work Phone: [phone]) [phone] Telephone encounter Note* Telephone Encounter - Daisy Murray RN - 03/04/2024 3:57 PM EDT Pt requesting CT results Louisa: Please review and advise Daisy Murray RN [facility]06-03-2024 Telephone encounter Note* Telephone Encounter - [...] post . Instructions provided to reschedule BIBI. [facility]06-03-2024 Miscellaneous Notes* Telephone Encounter - Surjit [...] her back? Thank you documented [facility]06[facility] Telephone encounter Note * Telephone Encounter - Ana Peoples MD - 03/03/2024 11:03 AM EDT 03/03/2024 MFM Message left on pts phone to look at her my chart messages. Ana Peoples MD [facility]06-03-2024 Miscellaneous Notes* Telephone Encounter - Ana Peoples MD - 03/03/2024 11:03 AM EDT 03/03/2024 MFM Message left on pts phone to look at her my chart messages. Ana Peoples MD [facility]05-31-[facility]24 Telephone encounter Note * Telephone Encounter - Ward Orta - 02/29/2024 3:25 PM EDT Pt calling in to cancel surgery on 03/14 and pre op appointment. Can you call her back? Thank you [facility]05-28-2024 Telephone encounter Note* Telephone Encounter - Usman Goldberg MD - 02/26/2024 2:58 PM EDT She texted me - CT's look good. Will need a chest ct later. [facility] Work Phone: [phone]) [phone] Miscellaneous Notes* Telephone Encounter - Usman Goldberg [...] advise Daisy Murray RN documented in this encounterMag[facility]05-28-2024 Telephone encounter Note * Telephone Encounter - Sylvia Alcala [facility] - 02/26/2024 12:43 PM EDT Patient calling. Doesn't know how to proceed. States her oncologist is out of town and no one can read the results. States she is 35 weeks . Please call patient back to discuss. [facility]05-28-2024 Telephone encounter Note* Telephone Encounter - Daisy Murray RN - 02/26/2024 12:21 PM EDT Pt calling for CT results. She is aware Dr Deshpande is out of office this week and will be in touch withhis response Sunday. Louisa: Please advise Daisy Murray RN [facility]05-24-2024 NoteHNO ID: [id number] Author: PACHECO BOWEN RN Service: ? Author [...] Mckeon DATE: February 22, 2024 TIME: 10:46 [facility]05-24-2024 NoteHNO ID: [id number] Author: BRANDON RDZ RT(R) Service: ? Author [...] PATIENT PRESENTS WITH AN IMPLANTABLE OR ATTACHED RESIDENT INSPECTOR: No RADIOLOGY DEPARTMENT: CT; Exam(s) Completed: Chest and Neck PERIPHERAL IV DATA: Site assessment: Clean,Dry and Intact, Site disposition Discontinued SIGNED BY: RT Dante(R) February 22, 2024 11:10 [facility]04-26-2024 Telephone encounter Note* Telephone Encounter - Cynthia Petty - 01/25/2024 1:47 PM EDT Pt is not able to make the appt on 02/11; amina wondering if this should be on March 14 instead? Thanks [facility]04-26-2024 Miscellaneous Notes* Telephone Encounter - Cynthia Petty - 01/25/2024 1:47 PM EDT Pt is not able to make the appt on 02/11; alosaleksandra wondering if this should be on March 14 instead? Thanks documented in [facility] encounterMag[facility]04-25-2024 Telephone encounter Note * Telephone Encounter - Angela Hilario - 01/24/2024 12:44 PM EDT Vy is scheduled for her CT scan on Sunday, 02/21 at 11am. She is scheduled for her labwork still, on 02/19. I spoke with Vy and she is in agreement. ThanksAngela [place] [address]-25-2024 Miscellaneous Notes* Telephone Encounter - Angela Hilario - 01/24/2024 12:44 PM EDT Vy is scheduled for her CT scan on 02/21 at 11am. She is scheduled for her labwork still, on 02/19. I spoke with Vy and she is in agreement. Thanks, Angela Hilario * Telephone Encounter - Brandon Churchill RN [...] note were not included. documented in this encounterMag[facility]04-25-2024 Telephone encounter Note * Telephone Encounter - Brandon Churchill RN - 01/24/2024 12:23 PM EDT Clerical: Please call pt to schedule CT scans. Brandon Churchill RN [facility] Work Phone: 1(774) 629-554204-25-2024 Telephone encounter Note* Telephone Encounter - Usman Goldberg MD - 01/24/2024 12:18 PM EDT It's ok to move up - but I'd want to know closer to delivery (33 weeks - 34 weeks) because then there won't be a need for additional scans later. Labs are to be done prior to CT. [facility]04-25-2024 Telephone encounter Note* Telephone Encounter - [...] CT ahead of 02/19? Brandon Churchill RN [facility]04-25-2024 Telephone encounter Note* Telephone Encounter - [...] enough time. Vy Louisa: Please advise Daisy Murray, RN [facility]04-24-2024 Telephone encounter Note* Telephone Encounter - Usman Goldberg MD - 01/23/2024 4:24 PM EDT We won's be doing scans for 4 weeks.... that works out to be around 33 weeks gestation Does that sound right? (February 19) Thanks, louisa. [facility]04-24-2024 Telephone encounter Note* Telephone Encounter - Brandon Churchill RN - 01/23/2024 3:54 PM EDT Pt calls regarding CT scans. Please place orders. Thanks! Brandon Churchill RN [facility]04-23-2024 Telephone encounter Note* Telephone Encounter - [...] known. All questions answered. Ana Peoples MD [facility]04-23-2024 Miscellaneous Notes* Telephone Encounter - Ana [...] answered. Ana Peoples MD documented in this encounterMag[facility]04-23-2024 Telephone encounter Note * Telephone Encounter - Brandon Churchill RN - 01/22/2024 1:02 PM EDT Images from the original note were not included. [facility]04-23-2024 NoteHNO ID: [id number] Author: ANA PEOPLES MD Service: ? Author [...] Skin cancer Current Assessment AND Plan 01/22/2024 [facility] Pt is a 33 year old 29w4d with a new diagnosis of malignant melanoma located above the left upper lip. Oncologist Usman Goldberg MD Surgeon Fransico Sharp MD Pts general OBGYN in [place], [place]: Eliazar Castaneda MD The plan is for wide local excision with reconstruction, which may take multiple trips to the OR. The OR plan involves radioactive tracer for sentinal node She has not been imaged for staging. She comes [facility] today for discussion on when to [...] with more than 50% of the total mdas-dr-zypc time of the visit in counseling / coordination of care. I shared my findings and recommendations via the shared medical record or via the mail to the referring provider. Ana Peoples [facility]04-23-2024 History of Present illness Narrative* Ana [...] Skin cancer Current Assessment & Plan 01/22/2024 [facility] Pt is a 33 year old 29w4d with a new diagnosis of malignant melanoma located above the left upper lip. Oncologist Usman Goldberg MD Surgeon Fransico Sharp MD Pts general OBGYN in [place], [place]: Eliazar Castaneda MD The plan is for wide local excision with reconstruction, which may take multiple trips to the OR. The OR plan involves radioactive tracer for sentinal node She has not been imaged for staging. She comes to [facility] today for discussion on when to [...] with more than 50% of the total yikc-re-orii time of the visit in counseling / coordination of care. I shared my findings and recommendations via the shared medical record or via the mail to the referring provider. Ana Peoples MD documented [facility] encounter[facility]04-19-2024 Miscellaneous Notes* Telephone Encounter - Jose [...] Jose L Crowley MA documented in this encounterMag[facility]04-11-2024 Miscellaneous Notes* Telephone Encounter - Rolo Parada - 01/10/2024 9:18 AM EDT [email or web address] msg was sent to patient asking for call back to this coordinator to schedule MFM consultation. documented in this encounterMag[facility]04-10-2024 Miscellaneous Notes* Telephone Encounter - Surjit Griggs RN - 01/09/2024 12:35 PM EDT Reached out to patient. Instructions provided to see a maternal medicine specialist within the [facility] per Dr. Sharp. This nurse explained that the multidisciplinary team will need frequent communications in arranging the plan of care, and staying in one healthcare system will help facilitate planning. * Telephone Encounter - Fernanda Michael - 01/09/2024 9:52 AM EDT Patient called that she is seeing Maternal Med, in her area and was questioning does she needto see one at the [facility]? She is asking for a call.. she is very nervous documented in this encounterMag[facility]04-05-2024 Instructions* Patient Instructions* Valerie Bedoya RN - 01/04/2024 3:21 PM EDT PLAN: - Photos taken and uploaded to chart today via [employer] - Pathology re-read to be obtained - Surgical plan is for resection of left upper lip melanoma, reconstruction with local tissue rearrangement, and a sentinel lymph node biopsy - Surgery at [facility] or [facility]. Likely plan is to wait for surgical intervention until after 36 weeks . - Pre op clearance (PACC) prior to surgery for clearance to receive general anesthesia; must be done at a [facility] location - Nuclear medicine appointment at [facility] the morning of surgery - Post op 7-10 days with Tana Cervantes APRN.[employer] - Consult placed to Maternal Medicine (MFM) for risk assessment and guidance: call [phone] to schedule. - Recommend regular dermatology follow-up for FBSE - Q3 months for 2 years, Q6 months for 5 years and Q1 year for the rest of his/her life Our surgical territory manager will contact you to set up all [...] the office with questions/concerns. documented in this encounterMag[facility]03-29-2024 NoteHNO ID: [id number] Author: FRANSICO SHARP MD Service: ? Author Type: Physician Type: Progress Notes Filed: 01/06/2024 09:42 Note Text: DATE: January 03, 2024 CC: New Melanoma Patient Referring Physician: Margarita Kim MD at [facility] [place] HPI: Vy Mckeon is a 33 year [...] 400 mg by mouth. omeprazole magnesium (ACID SOLUTION STRATEGIST, OMEPRAZOLE, ORAL) Take by mouth as directed. [...] left upper lip with a variegated pattern, programmer in the middle with a number of dark spots. The lesion measures 1 cm in diameter. Photos taken, see [employer] LABS: Pathology Report - EXTERNAL [...] taken and uploaded to chart today via [employer] - Pathology re-read to be obtained - Surgical plan is for resection of left upper lip melanoma, reconstruction with local tissue rearrangement, and a sentinel lymph node biopsy - Surgery at [facility] or . Likely plan is to wait for surgical intervention until after 36 weeks . - PACC prior to surgery - Nuclear medicine appointment at [facility] the (more content not included)... [facility]03-29-2024 History of Present illness Narrative* Fransico Sharp MD - 12/28/2023 8:54 AM EDT Images from the original note were not included. DATE: January 03, 2024 CC: New Melanoma Patient Referring Physician: Margarita Kim MD at [facility] [place] HPI: Vy Mckeon is a 33 year [...] 400 mg by mouth. omeprazole magnesium (ACID SOLUTION STRATEGIST, OMEPRAZOLE, ORAL) Take by mouth as directed. [...] left upper lip with a variegated pattern, programmer in the middle with a number of dark spots. The lesion measures 1 cm in diameter. Photos taken, see [facility] Get Images LABS: Pathology Report [...] taken and uploaded to chart today via [employer] - Pathology re-read to be obtained - Surgical plan is for resection of left upper lip melanoma, reconstruction with local tissue rearrangement, and a sentinel lymph node biopsy - Surgery at [facility] or . Likely plan is to wait for surgical intervention until after 36 weeks . - PACC prior to surgery - Nuclear medicine appointment at [facility] the morning of surgery - Post op 7-10 days with Tana Cervantes APRN.[employer]ER - Consult placed to [facility] for risk assessment and guidance: call [phone] to schedule. - Recommend regular dermatology follow-up for FBSE - Q3 months for 2 years, Q6 months for 5 years and Q1 year for the rest of his/her life - Patient follows with OBGYN Dr. Castaneda in [place], [place] Follow up after 36 weeks of and with [facility]'s recommendations. The patient is seen and examined by Dr. Sharp and the following reflects his service. 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 While I believe this jonathan a [...] consultation. Fransico Sharp MD documented in this encounterMag[facility]03-27-2024 NoteHNO ID: [id number] Author: USMAN GOLDBERG MD Service: ? Author Type: Physician Type: Progress Notes Filed: 12/27/2023 12:46 Note Text: NAME: Vy Mckeon [facility] NO.: [id number] DATE OF SERVICE: December 26, 2023 (Krystal) [...] 400 mg by mouth. omeprazole magnesium (ACID SOLUTION STRATEGIST, OMEPRAZOLE, ORAL) Take by mouth as directed. PNV no.95/ferrous fum/folic ac ( ORAL) Take by mouth as directed. LABORATORY VALUES: WBC (k/uL) Date Value 12/26/2023 9.72 RBC (m/uL) Date Value 12/26/2023 3.99 Hemoglob (more content not included)...[facility]03-18-2024 History of Present illness Narrative* Freddie Delgado, EDUCATION FINANCE PROCESSOR-[employer] - 12/17/2023 1:45 PM EDT Subjective Patient ID: Vy Mckeon is a 33 y.o. female. FRANDY Mcclellan presents to the office for follow up.She was last seen with continued depression and anxietyand had stopped taking Zoloft, hydroxyzine and trazodone because she was found to be . She is 24 weeks along in her with Placenta previa. Last AUTHOR'S AGENT visit 12/11/23 with . carrier screening result [...] normal. Behavior: Behavior normal. Assessment/Plan Follow-up with AUTHOR'S AGENT for follow-up on hematology result showing minimally [...] for sleep. Note completed with assistance of FAMILY HELPER student. GIOVANNI Darling 12/17/23 [id number] documented in this [facility]03-18-2024 Miscellaneous Notes* Medical Student - [facility] - 12/17/2023 1:45 PM EDT Disclaimer: This [...] the legal medical record. [facility] Progress note* Medical Student - Valerie [facility] - 12/17/2023 1:45 PM EDT Disclaimer: This [...] a part of the legal medical record. [facility]03-08-2024 History of Present illness Narrative* TAMMY [...] if anything comes up. documented in [facility]Bl[facility]02-20-[facility] History of Present illness Narrative* Fidencio Rojas MD - 11/20/2023 9:30 AM EST Video Visit via Real-time [employer]chron[employer] Provider Location: [facility] [place] [id number] [facility], [address] [place] [id number] Patient Location: Other Patient Location Machine Mover: None Video Visit Consent Statement: I discussed [...] that there are some limitations compared to [id number] evaluations. We elected to proceed. REASON FOR [...] for nausea or vomiting., Disp: , Rfl: [id number] 29-1-400 mg combo pack,tablet & cap,, Take [...] TESTS AND ULTRASOUND REPORTS: Referral records and [facility] chart were reviewed Pertinent Ultrasound [...] patient is in complete care of her gut snatcher. Patient does have ultrasound and office visit scheduled with us. Thank you for allowing me to participate in the care of Vy Mckeon. If there any questions please do not hesitate to contact us. Fidencio Rojas MD Maternal- Medicine [facility] [address] 1st [place] [address] [facility], the CDC, and other organizations representing maternal and public health professionals recommend that , , and lactating people and those considering receive the COVID-19 vaccination. Vaccination is the best method to reduce maternal and complications of SARS-CoV-2 infection. This document was created with [employer] technology. Though I make every effort to review the dictation as it is transcribed, on occasion the spoken word can be misinterpreted by the technology leading to inappropriate words, phrases, or sentences. This note is addressed to the requesting provider as a consultation for clinical guidance. Specificmedical abbreviations are occasionally used and those are generally approved by the [place]?Board of?Obstetrics and?Gynecology?as well as?Justyna rea abbreviations. The above plan of care was based solely on the diagnoses for which a consultation was requested. ?More frequent testing may be indicated based on her other medical/obstetrical conditions. The management of other or medical conditions is beyond the scope of requested consultation and pam herreraue to be followed by the primary gut snatcher or primary care provider. Note to patient: [...] opinion of the practitioner. documented in this encounterMary Rutan HospitalLoanHero Formerly [facility] [id number] History of Present illness Narrative* SHANT España [...] obtained without difficulty and patient was given [facility] order to have obtained. Follow Up: Patient is to return to our office in 4 weeks for routine OB appointment Documented by Dana Farris LPN on behalf of: SHANT España documented in this encounterNORipley County Memorial [id number] History of Present illness Narrative* TAMMY Duran - 11/12/2023 10:22 AM ESTSummary: MOB carrier screening results Called and discussed carrier screening results with Vy. 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 We discussed the natural history and etiology of the condition. Rad[place]end FOB carrier screening if he's available. She understood and had no additional questions. She will reach out to [facility] to get the necessary info needed for me to order his carrier screening (full name, , phone number, email, health insurance info). She requests the kit be sent to her homeaddress. I will be on the lookout for an email from her with his information. I encouraged the patient to call back with any additional questions or concerns. documented in this encounterBluff[facility]01-29-2024 History of Present illness Narrative* TAMMY [...] be completed between 11/10-11/17. documented in this encounterBluffton Hospital01-22-2024 History of Present illness Narrative* TAMMY Duran - 10/22/2023 11:00 AM ESTSummarargentina: [facility] Genetic Counseling Note Provider at different site/location than patient. I confirmed the [facility] is [facility] [place]. Vy Yu Mckeon is currently at home and provider at remote site. The patient consented to be treated electronically via this form of telemedicine. This visit was not related to an office visit or procedure in the past 7 days, and in-office follow up is not recommended in the next 24 hours. Video Visit via Real-time Synchronous Audiovisual Provider Location: [facility] AT [facility] [address] Patient Location: Patient's home Patient Location Machine Mover: None Video Visit Consent Statement: I discussed [...] that there are some limitations compared to tixr-xm-cyzn evaluations. We elected to proceed. Name: Vy Mckeon : 1990 Date of Visit: 10/22/2023 Email: [email or web address] Preferred contact method: email Partner's Name: Bogdan Age: 32 Requesting Physician: Eliazar Castaneda DO [address] , [place] [address] Reason for Referral: Vy Mckeon is a 33 y.o. female who presented to [facility] Tele[facility]. Vy is here at [...] Screen: YES - low risk Performing lab: [facility] ([facility] Screen) Conditions screened: Trisomy 13, Trisomy [...] the medical records and evaluation by medical superintendent of the affected individual would be recommended. [...] age I personally spent 25 minutes in aucw-eq-serv time with this patient. I provided genetic [...] call or email their genetic counselor at [phone] or [email or web address] if any additional questions or concerns should arise. TAMMY Soto Licensed, Certified Genetic Counselor documented in this encounterBluffton Hospital08-29-2023 Evaluation note* Encounter Date Diagnosis Assessment Notes Treatment Notes Treatment Clinical Notes May, Thrush (ICD-10 - B37.0) Continue home medications as prescribed. Use the nystatin mouthwash as prescribed, swish and swallow. Follow-up with your family physician if no improvement in 2 to 3 days [facility] Other 06-19-2023 [facility]* Encounter Date Diagnosis Assessment Notes [...] educated on the importance of PPI optimization [facility] Other 05-10-2023 Evaluation note* Encounter Date Diagnosis [...] January, Other Contusion mater ial was printed [facility] Other 08-23-2022 NoteOPERATIVE NOTE OPERATION DATE: 05/23/2022 PROCEDURE: Suction D AND C. PREOPERATIVE DIAGNOSIS: Missed . POSTOPERATIVE DIAGNOSIS: Missed . ANESTHESIA: General. SURGEON: Eliazar Castaneda D.O. FIXTURE BUILDER: None. FINDING: Products of conception. SPECIMEN: Products [...] products of conception were removed using an 8-Divehi suction curette. Excellent hemostasis was noted. The patient tolerated the procedure well. Sponge, lap, and needle counts were correct x 2. All instruments were then removed from the patient's vagina. The patient was taken to the Recovery Room in stable condition. ??[facility] [place] [facility] Includes: Assessments for all patient encounters Findings Encounter Date Depressive disorder Telebehavioral He alth with Emilee Short [facility] 03/29/2020 [facility] 03/29/2020 Dysthymic disorder Established Patie nt with Bobbi Colon [facility] 10/14/2019 Generalized anxiety disorder Establis hed Patient with Bobbi Colon [facility] 10/14/2019 Z68.24 - Body mass index (BM I) 24.0-24.9 adult Medical Established Patient with Candace Dianelys [facility] 10/14/2019 F34.1 - Dysthymic disorder Establishe d Patient with Bobbi Colon [facility] 09/04/2019 Generalized anxiety disorder Establis hed Patient with Bobbi Colon [facility] 09/04/2019 Body mass index Medical Established Patient with Candace Dianelys [facility] 09/04/2019 Diabetes Risk Test Score was 0 score 09/04/2019 Medical Established Patient with Candace Dianelys [facility] 09/04/2019 Body mass index Nurse Visit with Candace Grossman P 08/19/2019 Diabetes Risk Test Score was 0 score 08/19/2019 Nurse Visit with Candace Dianelys [facility] 08/19/2019 Generalized anxiety disorder Establis hed Patient with Bobbi Colon [facility] 07/28/2019 Severe recurrent major depre 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 features Established Patient with Bobbi Colon [facility] 07/28/2019 AUDIT alcohol use disorders identification test was six 07/28/2019 Medical New Patient with Candace Dianelys [facility] 07/28/2019 Diabetes Risk Test Score was 0 score 07/28/2019 Medical New Patient with Candace Dianelys [facility] 07/28/2019 ZAN-7 score was 21 07/28/2019 Medical Ne w Patient with Candace Dianelys [facility] 07/28/2019 PHQ-9: total score was 21 07/28/2019 Med ical New Patient with Candace Dianelys [facility] 07/28/2019 Z68.22 - Body mass index (BM I) 22.0-22.9 adult Medical New Patient with Candace Dianelys [facility] 07/28/2019 Health [facility] Work Phone: Evaluation noteNo assessment information available [facility] Work Phone: Evaluation note* Diagnosis Onset Date Resolution Status GERD (gastroesophageal reflux disease) acute [facility] Work Phone: Evaluation note* Diagnosis Multigravida of advanced maternal age in second trimester- Primary Family history of autism Family history of mental disorder Family history of psychiatric condition documented [facility] encounter [facility]* Diagnosis Multigravida of advanced maternal age in second trimester- Primary Family history of autism Family history of mental disorder Family history of psychiatric condition documented in this encounter [facility]* Diagnosis Second trimester state, incidental Vaginal discharge Leukorrhea, not specified as infective STD exposure Screening, , for anatomic survey Encounter for anatomic survey Chronic cluster headache, not intractable [facility] encounter [facility]* Diagnosis Multigravida of advanced maternal age in second trimester Family history of autism Family history of mental disorder Family history of psychiatric condition documented in this encounter [facility]* Diagnosis 20 weeks gestation of - Primary Placenta previa antepartum in second trimester Advanced maternal age in multigravida, second trimester documented in this encounter [facility]* Diagnosis Placenta previa antepartum in second trimester- Primary Multigravida of advanced maternal age in second trimester documented in this encounter [facility]* Diagnosis Nausea and vomiting, unspecified vomiting type- Primary Psychophysiological insomnia Persistent disorder of initiating or maintaining sleep documented in this encounter [facility]* Diagnosis Malignant melanoma of skin (HCC)- Primary Melanoma of skin, site unspecified documented in this encounter [facility] [place] [facility]* Diagnosis Encounter for anatomic survey Encounter for anatomic survey- Primary documented in this encounter [facility] [place] [facility]* Diagnosis Encounter for anatomic survey documented in this encounter [facility] [place] [facility]* Diagnosis Malignant melanoma [...] Fransico Sharp MD [facility] general O[facility]YN in [place]: Eliazar Castaneda MD The plan is for wide local excision with reconstruction, which may take multiple trips to the OR. The OR plan involves radioactive tracer for sentinal node She has not been imaged for staging. She comes to [facility] today for discussion on when to [...] can deliver closer to home at [facility] if she goesat term and the CT does not show any spread.. We would need to find a way to get the placenta to [facility] for examination. I have left a message with Dr. Castaneda's office to call me back so that we can confirm ability to get placenta to [facility] for pathology should she deliver at [place]. Ana Peoples MD documented in this encounter [facility]* Diagnosis Malignant melanoma of skin (HCC)- Primary Melanoma of skin, site unspecified Malignant melanoma of skin (HCC) Melanoma of skin, site unspecified documented in this encounter [facility] general Narrative - Reported* Type Description Date Medical History anxiety Medical History depression Medical History ADHD Surgical History D&C [facility] Other History general Narrative - Reported* Type Description Date Medical History anxiety Medical History depression Medical History ADHD Surgical History D&C 2021 [facility] Other History of Present illness Narrative History of Present Illness not supported for this document type No History of Present Illness RecordedHealth StyleFeeder [facility] Work Phone: Hospital Discharge instructions Additional Instructions [...] if you have any problems. -Office number [phone] Work Phone: Instructions Instructions not supported for this document type No Instructions RecordedHealth [facility] Work Phone: InstructionsNot on filedocumented in this encounter [facility] SystemInstructionsNot on filedocumented in this encounter [facility] SystemInstructionsNot on filedocumented in this encounter [facility] SystemPatient problem outcome Narrative Includes: Evaluations & Outcomes for active Goals No Outcomes RecordedHealth [facility] Work Phone: reason for referral (narrative)No Reason for Referral RecordedHealth [facility] Work Phone: reason for referral (narrative)* Diagnostic Procedure Only (Routine) - Closed Specialty Diagnoses / Procedures Referred By Kalina ghotra Referred To Contact [facility] Diagnoses Encounter for anatomic survey Procedures OBSTETRIC ULTRASOUND WHI US PREG UTERUS AFTER 1ST TRIMEST [place] [address] [place] [address] [facility] [address] [place] [address] Referral ID Status Reason Start Date Expiration Date V isits Requested Visits Authorized [id number] Closed Auto-Generate d Referral 01/21/2024 01/20/2025 1 1 [facility] HospitalShimon for visit NarrativeUNCONTROLLED GERD//REFERRAL FROM VITO ROBERSONPK [facility] [employer] Other Reason for visit Narrative* Consultation (Routine) - Pending Review Specialty Diagnoses / Procedures Referred By Contac t Referred To Contact Maternal and Medicine Diagnoses Multigravida of advanced maternal age in second trimester Eliazar Castaneda R, DO [address] , [place] [address] [facility]aternal Med [address] [place] [address] Referral ID Status Reason Start Date Expiration Date Visits Requested Visits Authorized [id number] Pending Review Specialty Services Required 10/10/2023 10/09/2024 1 1 [facility] for [facility] Narrative* Diagnostic Procedure Only (Routine) - Closed Specialty Diagnoses / Procedures [facility] Referred To Contact [facility] Diagnoses Encounter for anatomic survey Procedures OBSTETRIC ULTRASOUND WHI US PREG UTERUS AFTER 1ST [place] [address] [place] [address] [facility] [address] [place] [address] Referral ID Status Reason Start Date Expiration Date V isits Requested Visits Authorized [id number] Closed Auto-Generate d Referral 01/21/2024 01/20/2025 1 1 [facility] Narrative - Reported Review of Systems not supported for this document type No Review of Systems RecordedHealth [facility] Work Phone: Summary Purpose Family History No Family History Records Found Description Last Updated Paternal history of cardiovascular disor thuy 07/28/2019 Relationship Condition Age at Onset Recorded Date/T pia Not Specified Anxiety Unknown Chronic obstructive pulmonary disease Unk nown Advance Directives No Advanced Directives Records FoundDocuments on File Type Date Recorded 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 Referred To Contact Maternal and Medicine Diagnoses Placenta previa antepartum in second trimester Multigravida of advanced maternal age in second trimester Procedures US MFM with or without consult Fidencio Rojas MD [address] [place] [address] [facility] [place] Maternal Med [address] [place] [address] Referral ID Status Reason Start Date Expiration Date V isits Requested Visits Authorized [id number] Pending Review 11/20/2023 11/19/2024 1 1 Specialty Diagnoses / Procedures Referred By Contac t Referred To Contact Diagnoses Malignant melanoma of skin (HCC) Procedures REFER TO PACC - PRE ANESTHESIA CONSULTATION CLINIC OFFICE/OUTPATIENT [facility] 60 MINUTES Fransico Sharp MD [address] [place] [address] Referral ID Status Reason Start Date Expiration Date Visits Requested Visits Authorized [id number] Authorized PCP Requested Referral 01/04/2024 01/03/2025 1 1 Specialty Diagnoses / Procedures Referred By Contac t Referred To Contact Diagnoses Malignant melanoma of skin (HCC) Procedures CONSULT TO MATERNAL MEDI OFFICE/OUTPATIENT [facility] 60 MINUTES Fransico Sharp MD [address] [place] [address] Referral ID Status Reason Start Date Expiration Date Visits Requested Visits Authorized [id number] Authorized PCP Requested Referral Auto-Generate d Referral 01/04/2024 01/03/2025 1 1 Specialty Diagnoses / Procedures Referred By Contac t Referred To Contact CT IMAGING Diagnoses Malignant melanoma of skin (HCC) Procedures CT CHEST W IVCON DIAGNOSTIC COMPUTED TOMOGRAPHY THORAX W/CONTRAST Usman Goldberg MD [address] [place] [address] [place] [address] Ct Imaging [facility] Referral ID Status Reason Start Date Expiration Date Visits Requested Visits Authorized [id number] Authorized Auto-Generat ed Referral 02/20/2024 02/21/2025 1 1 Specialty Diagnoses / Procedures Referred By Contac t Referred To Contact CT IMAGING Diagnoses Malignant melanoma of skin (HCC) Procedures CT NECK SOFT TISSUE W IVCON CT SOFT TISSUE NECK W/CONTRAST MATERIAL Usman Goldberg MD [address] [place] [address] [place] [address] [place] [id number] Referral ID Status Reason Start Date Expiration Date Visits Requested Visits Authorized [id number] Authorized Auto-Generat ed Referral 02/20/2024 02/21/2025 1 1 Assessments Findings Encounter Date Generalized anxiety disorder BH Establis hed Patient with Bobbi Colon [facility] 07/28/2019 Severe recurrent major depre 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 features BH Established Patient with Bobbi Colon [facility] 07/28/2019 AUDIT alcohol use disorders identification test was six 07/28/2019 Medical New Patient with Candace Grossman [facility] 07/28/2019 Diabetes Risk Test Score was 0 score 07/28/2019 Medical New Patient with Candace Dianelys [facility] 07/28/2019 ZAN-7 score was 21 07/28/2019 Medical Ne w Patient with Candace Dianelys [facility] 07/28/2019 PHQ-9: total score was 21 07/28/2019 Med ical New Patient with Candace Dianelys [facility] 07/28/2019 Z68.22 - Body mass index (BM I) 22.0-22.9 adult Medical New Patient with Candace Grossman [facility] 07/28/2019 Findings Encounter Date F34.1 - Dysthymic disorder BH Establishe d Patient with Bobbi Colon [facility] 09/04/2019 Generalized anxiety disorder BH Establis hed Patient with Bobbi Colon [facility] 09/04/2019 Body mass index Medical Established Patient with Candace Dianelys [facility] 09/04/2019 Diabetes Risk Test Score was 0 score 09/04/2019 Medical Established Patient with Candacehalley Grossman [facility] 09/04/2019 Body mass index Nurse Visit with Candace Grossman P 08/19/2019 Diabetes Risk Test Score was 0 score 08/19/2019 Nurse Visit with Candace Grossman [facility] 08/19/2019 Generalized anxiety disorder BH Establis hed Patient with Bobbi Colon [facility] 07/28/2019 Severe recurrent major depre 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 features BH Established Patient with Bobbileif Colon [facility] 07/28/2019 AUDIT alcohol use disorders identification test was six 07/28/2019 Medical New Patient with Candace Dianelys [facility] 07/28/2019 Diabetes Risk Test Score was 0 score 07/28/2019 Medical New Patient with Candacehalley Grossman [facility] 07/28/2019 ZAN-7 score was 21 07/28/2019 Medical Ne w Patient with Candace Dianelys [facility] 07/28/2019 PHQ-9: total score was 21 07/28/2019 Med ical New Patient with Candace Grossman [facility] 07/28/2019 Z68.22 - Body mass index (BM I) 22.0-22.9 adult Medical New Patient with Candace Grossman [facility] 07/28/2019 Findings Encounter Date Dysthymic disorder Established Patie nt with Bobbi Colon [facility] 10/14/2019 Generalized anxiety disorder BH Establis hed Patient with Bobbileif Colon [facility] 10/14/2019 Z68.24 - Body mass index (BM I) 24.0-24.9 adult Medical Established Patient with Candace Grossman [facility] 10/14/2019 F34.1 - Dysthymic disorder BH Establishe d Patient with Bobbi Colon [facility] 09/04/2019 Generalized anxiety disorder Establis hed Patient with Bobbi Colon [facility] 09/04/2019 Body mass index Medical Established Patient with Candace Houstonen [facility] 09/04/2019 Diabetes Risk Test Score was 0 score 09/04/2019 Medical Established Patient with Candace Houstonen [facility] 09/04/2019 Body mass index Nurse Visit with Candace Dianelys [facility] 08/19/2019 Diabetes Risk Test Score was 0 score 08/19/2019 Nurse Visit with Candace Dianelys [facility] 08/19/2019 Generalized anxiety disorder Establis hed Patient with Bobbi Colon [facility] 07/28/2019 Severe recurrent major depre 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 features Established Patient with Bobbi Colon [facility] 07/28/2019 AUDIT alcohol use disorders identification test was six 07/28/2019 Medical New Patient with Candace Grossman [facility] 07/28/2019 Diabetes Risk Test Score was 0 score 07/28/2019 Medical New Patient with Candace Grossman [facility] 07/28/2019 ZAN-7 score was 21 07/28/2019 Medical Ne w Patient with Candace Houstonen [facility] 07/28/2019 PHQ-9: total score was 21 07/28/2019 Med ical New Patient with Candace Grossman [facility] 07/28/2019 Z68.22 - Body mass index (BM I) 22.0-22.9 adult Medical New Patient with Candace Grossman [facility] 07/28/2019 Findings Encounter Date Visit for: contraceptive management Women's Heal th with Linnea Escobar [facility] 04/08/2020 Z68.24 - Body mass index (BM I) 24.0-24.9, adult Women's Health with Linnea Escobar [facility] 04/08/2020 Depressive disorder Telebehavioral He alth with Emilee Short [facility] 03/29/2020 Generalized anxiety disorder [facility] with Emilee Short [facility] 03/29/2020 Dysthymic disorder Established Patie nt with Bobbi Colon [facility] 10/14/2019 Generalized anxiety disorder Establis hed Patient with Bobbi Colon [facility] 10/14/2019 Z68.24 - Body mass index (BM I) 24.0-24.9 adult Medical Established Patient with Candace Grossman [facility] 10/14/2019 F34.1 - Dysthymic disorder Establishe d Patient with Bobbi Colon [facility] 09/04/2019 Generalized anxiety disorder Establis hed Patient with Bobbi Colon [facility] 09/04/2019 Body mass index Medical Established Patient with Candace Grossman [facility] 09/04/2019 Diabetes Risk Test Score was 0 score 09/04/2019 Medical Established Patient with Candace Grossman [facility] 09/04/2019 Body mass index Nurse Visit with Candace Grossman P 08/19/2019 Diabetes Risk Test Score was 0 score 08/19/2019 Nurse Visit with Candace Grossman [facility] 08/19/2019 Generalized anxiety disorder Establis hed Patient with Bobbi Colon [facility] 07/28/2019 Severe recurrent major depre 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 features Established Patient with Bobbileif Colon [facility] 07/28/2019 AUDIT alcohol use disorders identification test was six 07/28/2019 Medical New Patient with Candace Grossman [facility] 07/28/2019 Diabetes Risk Test Score was 0 score 07/28/2019 Medical New Patient with Candace Dianelys [facility] 07/28/2019 ZAN-7 score was 21 07/28/2019 Medical Ne w Patient with Candace Dianelys [facility] 07/28/2019 PHQ-9: total score was 21 07/28/2019 Med ical New Patient with Candace Dianelys [facility] 07/28/2019 Z68.22 - Body mass index (BM I) 22.0-22.9 adult Medical New Patient with Candace Dianelys [facility] 07/28/2019 Findings Encounter Date Body mass index Nurse Visit with Candace ECHEVARRIA P 08/19/2019 Diabetes Risk Test Score was 0 score 08/19/2019 Nurse Visit with Candace Grossman [facility] 08/19/2019 Generalized anxiety disorder BH Establis hed Patient with Bobbileif Colon [facility] 07/28/2019 Severe recurrent major depre 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 features BH Established Patient with Bobbi Colon [facility] 07/28/2019 AUDIT alcohol use disorders identification test was six 07/28/2019 Medical New Patient with Candace Grossman [facility] 07/28/2019 Diabetes Risk Test Score was 0 score 07/28/2019 Medical New Patient with Candace Grossman [facility] 07/28/2019 ZAN-7 score was 21 07/28/2019 Medical Ne w Patient with Candace Grossman [facility] 07/28/2019 PHQ-9: total score was 21 07/28/2019 Med ical New Patient with Candace Grossman [facility] 07/28/2019 Z68.22 - Body mass index (BM I) 22.0-22.9 adult Medical New Patient with Candace Grossman [facility] 07/28/2019 Findings Encounter Date Overweight Women's Health with Candace Grossman [facility] 05/03/2020 Z68.24 - Body mass index (BM I) 24.0-24.9, adult Women's Health with Candace Grossman [facility] 05/03/2020 Visit for: contraceptive management Women's Heal th with Linnea Samaniegole [facility] 04/08/2020 Z68.24 - Body mass index (BM I) 24.0-24.9, adult Women's Health with Linnea Escobar [facility] 04/08/2020 Depressive disorder Telebehavioral He alth with Emilee Short [facility] 03/29/2020 Generalized anxiety disorder Telebeha vioral Health with Emilee Short [facility] 03/29/2020 Dysthymic disorder Established Patie nt with Bobbi Colon [facility] 10/14/2019 Generalized anxiety disorder Establis hed Patient with Bobbileif Colon [facility] 10/14/2019 Z68.24 - Body mass index (BM I) 24.0-24.9 adult Medical Established Patient with Candace Grossman [facility] 10/14/2019 F34.1 - Dysthymic disorder Establishe d Patient with Bobbi Colon [facility] 09/04/2019 Generalized anxiety disorder BH Establis hed Patient with Bobbileif Colon [facility] 09/04/2019 Body mass index Medical Established Patient with Candace Grossman [facility] 09/04/2019 Diabetes Risk Test Score was 0 score 09/04/2019 Medical Established Patient with Candace Grossman [facility] 09/04/2019 Body mass index Nurse Visit with Candace Grossman [facility] 08/19/2019 Diabetes Risk Test Score was 0 score 08/19/2019 Nurse Visit with Candace Grossman [facility] 08/19/2019 Generalized anxiety disorder BH Establis hed Patient with Bobbi Colon [facility] 07/28/2019 Severe recurrent major depre 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 features BH Established Patient with Bobbi Colon [facility] 07/28/2019 AUDIT alcohol use disorders identification test was six 07/28/2019 Medical New Patient with Candace Grossman [facility] 07/28/2019 Diabetes Risk Test Score was 0 score 07/28/2019 Medical New Patient with Candace Grossman [facility] 07/28/2019 ZAN-7 score was 21 07/28/2019 Medical Ne w Patient with Candace Grossman C[facility] 07/28/2019 PHQ-9: total score was 21 07/28/2019 Med ical New Patient with Candace Grossman [facility] 07/28/2019 Z68.22 - Body mass index (BM I) 22.0-22.9 adult Medical New Patient with Candace Grossman [facility] 07/28/2019 Instructions Instructions not supported for this [...] section and content) DATE CREATED AUTHOR 03/26/2018 Sweeden Giorgio [facility] DATE CREATED AUTHOR AUTHOR'S ORGANIZ ATION 05/07/2020 [facility] DATE CREATED AUTHOR AUTHOR'S ORGANIZ ATION 02/10/2023 [facility] DATE CREATED AUTHOR AUTHOR'S ORGANIZ ATION 03/28/2023 [facility] DATE CREATED AUTHOR AUTHOR'S ORGANIZ ATION 12/18/2023 [facility] DATE CREATED AUTHOR AUTHOR'S ORGANIZ ATION 01/14/2024 [facility] DATE CREATED AUTHOR AUTHOR'S ORGANIZ ATION 01/27/2024 [facility] DATE CREATED AUTHOR AUTHOR'S ORGANIZ ATION 02/14/2024 [facility] DATE CREATED AUTHOR AUTHOR'S ORGANIZ ATION 03/11/2024 [facility] DATE CREATED AUTHOR AUTHOR'S ORGANIZ ATION 03/13/2024 [facility] Evaluations & Outcomes (unre cognized section and [...] (HCC) Procedures CONSULT TO MATERNAL MEDI OFFICE/OUTPATIENT [facility] 60 MINUTES Fransico Sharp MD [address] [place] [address] Referral ID Status Reason Start Date Expiration Date V isits Requested Visits Authorized [id number] Closed PCP Requested Referral Auto-Generated Referral 01/04/2024 [...] Active NON STAFF Primary Care Provider Active [employer]er Relationship Specialty Start Date End Date Freddie Delgado APRN[facility] PCP - General Nurse Practitioner 07/30/23 [employer] Relationship Specialty Start Date End Date Freddie Delgado APRN[facility] PCP - General Nurse Practitioner 07/30/23 [employer] Installer Relationship Specialty Start Date End Date Freddie Delgado APRN-[employer] PCP - General Nurse Practitioner 07/30/23 [employer] 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 Relationship Specialty Start Date End Date Freddie Delgado APRN-[employer] PCP - General Nurse Practitioner 07/30/23 [employer] Floor Installer Relationship Specialty Start Date End Date Freddie Delgado APRN-[employer] PCP - General Nurse Practitioner 07/30/23 [employer] Floor Installer Relationship Specialty Start Date End Date Freddie Delgado APRN[facility] [employer] PCP - General Nurse Practitioner 07/30/23 [employer] Floor Installer Relationship Specialty Start Date End Date Freddie Delgado APRN[facility] PCP - General Nurse Practitioner 07/30/23 [employer] Floor Installer Relationship Specialty Start Date End Date Danny Freddie [address] [address] PCP - General Family Medicine 12/19/23 [employer] Installer Relationship Specialty Start Date End Date Delgado, Freddie [address] [place] [address] PCP - General Family Medicine 12/19/23 [employer] Floor Installer Relationship Specialty Start Date End Date Freddie Delgado [address] [place] [address] PCP - General Family Medicine 12/19/23 [employer] Floor Installer Relationship Specialty Start Date End Date Freddie Delgado [address] [place] [address] PCP - General Family Medicine 12/19/23 [employer] Floor Installer Relationship Specialty Start Date End Date Freddie Delgado [address] [place] [address] PCP - General Family Medicine 12/19/23 [employer] Floor Installer Relationship Specialty Start Date End Date Freddie Delgado [address] [place] [address] PCP - General Family Medicine 12/19/23 [employer] Floor Installer Relationship Specialty Start Date End Date Freddie Delgado [address] [place] [address] PCP - General Family Medicine 12/19/23 [employer] Floor Installer Relationship Specialty Start Date End Date Freddie Delgado [address] [place] [address] PCP - General Family Medicine 12/19/23 [employer] Floor Installer Relationship Specialty Start Date End Date Freddie Delgado [address] [place] [address] PCP - General Family Medicine 12/19/23 [employer] Floor Installer Relationship Specialty Start Date End Date Freddie Delgado [address] [place] [address] PCP - General Family Medicine 12/19/23 [employer] Floor Installer Relationship Specialty Start Date End Date Freddie Delgado [address] [place] [address] PCP - General Family Medicine 12/19/23 [employer] Floor Installer Relationship Specialty Start Date End Date Freddie Delgado [address] [place] [address] PCP - General Family Medicine 12/19/23 [employer] Floor Installer Relationship Specialty Start Date End Date Freddie DelgadoPRADEEP [address] [place] [address] PCP - General Family Medicine 12/19/23 [employer] Floor Installer Relationship Specialty Start Date End Date Freddie DelgadoPRADEEP [address] [place] [address] PCP - General Family Medicine 12/19/23 [employer] Floor Installer Relationship Specialty Start Date End Date Freddie DelgadoPRADEEP [address] [place] [address] PCP - General Family Medicine 12/19/23 [employer] Floor Installer Relationship Specialty Start Date End Date Freddie DelgadoPRADEEP [address] [place] [address] PCP - General Family Medicine 12/19/23 Goals [...] or prosecute any alcohol or drug abuse patient.[facility] the event this information is protected by the Federal Confidentiality of Alcohol and Drug Abuse Patient Records regulations: The Federal rules restrict any use of the information to criminally investigate or prosecute any alcohol or drug abuse patient.[facility] the event this information is protected by the Federal Confidentiality of Alcohol and Drug Abuse Patient Records regulations: The Federal rules restrict any use of the information to criminally investigate or prosecute any alcohol or drug abuse patient.[facility] the event this information is protected by the Federal Confidentiality of Alcohol and Drug Abuse Patient Records regulations: The Federal rules restrict any use of the information to criminally investigate or prosecute any alcohol or drug abuse patient.[facility] the event this information is protected by the Federal Confidentiality of Alcohol and Drug Abuse Patient Records regulations: The Federal rules restrict any use of the information to criminally investigate or prosecute any alcohol or drug abuse patient.[facility] the event this information is protected by the Federal Confidentiality of Alcohol and Drug Abuse Patient Records regulations: The Federal rules restrict any use of the information to criminally investigate or prosecute any alcohol or drug abuse patient.[facility] the event this information is protected by the Federal Confidentiality of Alcohol and Drug Abuse Patient Records regulations: The Federal rules restrict any use of the information to criminally investigate or prosecute any alcohol or drug abuse patient.[facility] the event this information is protected by the Federal Confidentiality of Alcohol and Drug Abuse Patient Records regulations: The Federal rules restrict any use of the information to criminally investigate or prosecute any alcohol or drug abuse patient.[facility] the event this information is protected by the Federal Confidentiality of Alcohol and Drug Abuse Patient Records regulations: The Federal rules restrict any use of the information to criminally investigate or prosecute any alcohol or drug abuse patient.[facility] the event this information is protected by the Federal Confidentiality of Alcohol and Drug Abuse Patient Records regulations: The Federal rules restrict any use of the information to criminally investigate or prosecute any alcohol or drug abuse patient.[facility] the event this information is protected by the Federal Confidentiality of Alcohol and Drug Abuse Patient Records regulations: The Federal rules restrict any use of the information to criminally investigate or prosecute any alcohol or drug abuse patient.[facility] Hospital[facility] the event this information is protected by the Federal Confidentiality of Alcohol and Drug Abuse Patient Records regulations: The Federal rules restrict any use of the information to criminally investigate or prosecute any alcohol or drug abuse patient.[facility] the event this information is protected by the Federal Confidentiality of Alcohol and Drug Abuse Patient Records regulations: The Federal rules restrict any use of the information to criminally investigate or prosecute any alcohol or drug abuse patient.[facility] the event this information is protected by the Federal Confidentiality of Alcohol and Drug Abuse Patient Records regulations: The Federal rules restrict any use of the information to criminally investigate or prosecute any alcohol or drug abuse patient.[facility] the event this information is protected by the Federal Confidentiality of Alcohol and Drug Abuse Patient Records regulations: The Federal rules restrict any use of the information to criminally investigate or prosecute any alcohol or drug abuse patient.[facility] HospitalIn the event this information is protected by the Federal Confidentiality of Alcohol and Drug Abuse Patient Records regulations: The Federal rules restrict any use of the information to criminally investigate or prosecute any alcohol or drug abuse patient.[facility] HospitalIn the event this information is protected by the Federal Confidentiality of Alcohol and Drug Abuse Patient Records regulations: The Federal rules restrict any use of the information to criminally investigate or prosecute any alcohol or drug abuse patient.[facility] HospitalIn the event this information is protected by the Federal Confidentiality of Alcohol and Drug Abuse Patient Records regulations: The Federal rules restrict any use of the information to criminally investigate or prosecute any alcohol or drug abuse patient.[facility] FOR RECORDS PERTAINING TO PATIENTS WHO [...] BE BASED ON THE PRIMARY CLINICAL RECORDS. [facility]. provides no warranty or guarantee of the accuracy or completeness of information in this document.
[2024-03-17 14:58] VITALS: BP 121/62; PULSE 93
--- NOTE | 2024-03-17 15:14 | US_ITS ---
[address] [address] Patient Name: CRISTIAN DONALDSON MRN: [id number] date: 1990 Sex: F Assigned Patient Location: US Current Patient Location: US Accession/Order Number: [id number] Exam Date: 03/17/2024 15:20 Report Date: 03/17/2024 16:03 At the request of: DAVIN GREEN Procedure: US OB BPP w non-stress EXAMINATION: US OB BPP w non-stress HISTORY: EXCESSIVE GROWTH AFFECTING [id number] COMPARISON: Ultrasound OB biophysical 03/10/2024 TECHNIQUE: Ultrasound biophysical profile was performed in the radiology department. BREATHING MOVEMENTS: 2.0 GROSS BODY MOVEMENTS: 2.0 TONE: 2.0 QUALITATIVE AMNIOTIC FLUID VOLUME: 2.0 PRESENTATION: CEPHALIC HEART RATE: 123.3 bpm bpm. AMNIOTIC FLUID VOLUME: 11.9 cm GESTATIONAL AGE: 37 weeks 4 days CONCLUSION: Total biophysical profile score 8.0. Electronically authenticated by: BOBBI SIMONS Date: 03/17/2024 16:03
== END 2024-03-17 15:43 | disposition home or self-care (01) ==
LOC: US 06:58 → FBC 14:52
PROVIDERS: Visit Provider Obstetrics & Gynecology
DX: O36.63X0 Maternal care for excessive fetal growth, third trimester, not applicable or unspecified (principal); Z3A.37 37 weeks gestation of pregnancy
CPT/HCPCS: 76818

== ENCOUNTER 2024-03-20 06:59 | Outpatient (OUT) | payer MEDICAID, SELFPAY ==
--- OUTSIDE RECORDS SUMMARY | 2024-03-20 07:03 | XMS_ITS | CCD ---
Author Organization [facility] Care Team Providers Care Supervisor Pipe Joints Name Role Phone Gehlot, Upender Unavailable Unavailable Gehlot, Upender Unavailable Unavailable KAMILA CERNA Unavailable Unavailable Sally Morejon Primary Care Provider Unavailable Primary Care Provider UnavailCANDACE Dubon Referring Unavailable Sally Morejon Primary Care Provider [phone] Sally Morejon CNP Primary Care Provider Shayla Valle Unavailable JUMANA Valle Attending Provider AICHHOLZ, PRESCHOOL DIRECTOR VITO Admitting Unavailable AICHHOLZ, PRESCHOOL DIRECTOR VITO Attending Unavailable AICHHOLZ, PRESCHOOL DIRECTOR VITO Primary Care Unavailable AICHHOLZ, PRESCHOOL DIRECTOR VITO Consulting Unavailable NORMA ., DR JIN Admitting Unavailable NORMA ., DR JIN Attending Unavailable AICHHOLZ, PRESCHOOL DIRECTOR VITO Primary Care Unavailable NORMA ., DR JIN Consulting Unavailable RONAK, DR BOBBI Bianchi Consulting Unavailable NORMA ., DR JIN Admitting Unavailable NORMA ., DR JIN Attending Unavailable AICHHOLZ, PRESCHOOL DIRECTOR VITO Primary Care Unavailable NORMA ., DR JIN Consulting Unavailable DR BOBBI SIMONS Consulting Unavailable NORMA ., DR JIN Admitting Unavailable NORMA ., DR JIN Attending Unavailable AICHHOLZ, PRESCHOOL DIRECTOR VITO Primary Care Unavailable NORMA ., DR JIN Consulting Unavailable AICHHOLZ, PRESCHOOL DIRECTOR VITO Admitting Unavailable AICHHOLZ, PRESCHOOL DIRECTOR VITO Attending Unavailable AICHHOLZ, PRESCHOOL DIRECTOR VITO Primary Care Unavailable NORMA ., DR JIN Admitting Unavailable NORMA ., DR JIN Attending Unavailable AICHHOLZ, PRESCHOOL DIRECTOR VITO Primary Care Unavailable NORMA ., DR JIN Consulting Unavailable NORMA ., DR JIN Admitting Unavailable NORMA ., DR JIN Attending Unavailable AICHHOLZ, PRESCHOOL DIRECTOR VITO Primary Care Unavailable NORMA ., DR JIN Consulting Unavailable AGUBOSIM, WADE Consulting Unavailable SOFI XIAO Consulting Unavailable NORMA ., DR JIN Admitting Unavailable NORMA ., DR JIN Attending Unavailable AICHHOLZ, PRESCHOOL DIRECTOR VITO Primary Care Unavailable NORMA ., DR JIN Consulting Unavailable AICHHOLZ, PRESCHOOL DIRECTOR VITO Admitting Unavailable AICHHOLZ, PRESCHOOL DIRECTOR VITO Attending Unavailable AICHHOLZ, PRESCHOOL DIRECTOR VITO Primary Care Unavailable WEST, DR JO-ANN Nicolas Consulting Unavailable AICHHOLZ, PRESCHOOL DIRECTOR VITO Consulting Unavailable Yoel Jarrett Unavailable MD Karan Romero Attending Provider NON STAFF Primary Care Provider Unavailabl e NON STAFF Primary Care Unavailable Karan Romero Attending Unavailabl Karan Osuna Admitting Unavailabl e Tori, Shayla Attending Unavailable Tori, Shayla Admitting Unavailable Delgado [facility], Freddie Primary Care Provider Unavailable Primary Care Provider Unavailabl e DELGADO, FREDDIE Attending Unavailable DELGADO, FREDDIE Referring Unavailable DELGADO, FREDDIE Primary Care Unavailable ROJAS, FIDENCIO Attending Unavailable DELGADO, FREDDIE Referring Unavailable DELGADO, FREDDIE Primary Care Unavailable Delgado, Freddie Primary Care Provider GURJIT ROBIN Attending Unavailable DELGADO, FREDDIE Referring Unavailable DELGADO, FREDDIE Primary Care Unavailable Delgado, Freddie Primary Care Provider [phone] BRANDI, FIDENCIO Attending Unavailable NORMA, ELIAZAR R [...] Unavailable DELGADO, FREDDIE Primary Care Unavailable Delgado PRESCHOOL DIRECTOR, Freddie Adrian Primary Care Provid er NORMA, ELIAZAR Attending Unavailable DAMEON, DIONNE Attending Unavailable NORMA, ELIAZAR Attending Unavailable NORMA, ELIAZAR Attending Unavailable DAMEON, DIONNE Attending Unavailable NORMA, ELIAZAR Attending Unavailable NORMA, ELIAZAR Attending Unavailable NORMA, ELIAZAR Attending Unavailable NORMA, ELIAZAR Attending Unavailable NORMA, ELIAZAR Attending Unavailable BAILITANA Attending Unavailable TUFARO FRANSICO Referring Unavailable DELGADO, FREDDIE ADRIAN Primary Care Unavail able TUFAROCOURTNEYFRANSICO Attending Unavailable DELGADO, FREDDIE ADRIAN Primary Care Unavail able DELGADO, FREDDIE ADRIAN Primary Care Unavail able ABHYANKAR, USMAN Attending Unavailable BAILIT, ANA Attending Unavailable JERALDLIANA Ghotra Referring Unavailable DELGADO, FREDDIE ADRIAN Primary Care Unavail able ABHYANKAR, USMAN Referring Unavailable DELGADO, FREDDIE ADRIAN Primary Care Unavail able ABHYANKAR, USMAN Referring Unavailable DELGADO, FREDDIE ADRIAN Primary Care Unavail able ANA PEOPLES Attending Unavailable DELGADO, FREDDIE ADRIAN Primary Care Unavail able Allergies Allergy Classification Reported Allergen(s) Allergy Type Date of Onset Reaction(s) Facility Penicillins (antibiotic) (1 source) Penicillins Drug Allergy 2 Unknown [facility] (13 sources) Penicillins (Antibiotic) Allergy to substance 9 [facility] Work Phone: (8 sources) busPIRone Drug Allergy 0 [facility] Work Phone: (6 sources) Penicillin G Drug Allergy 3 [facility] Work Phone: (1 source) Penicillin Drug Allergy [facility] Repository (6 sources) Penicillins; Translations: [PENICILLINS] Drug allergy (disorder) 2 [facility] Repository (20 sources) Penicillins Propensity to adverse reactions to drug 2 Other (See Comments), Unknown [facility] (3 sources) Penicillins Drug Allergy 2 Unknown [facility] Medications Current Medications Medication Drug Class(es) Dates Sig (Normalized) Sig (Original) [id number] 200 actuat albuterol 0.09 mg/actuat metered dose [...] Ocella 3-0.03 MG Oral Tablet 10/20/2019 Provider: Cnadace Grossman CNP Start: 10-14-2019 End: 10-20-2019 Ocella [...] Take 400 mg by mouth . nystatin [id number] unt/ml oral suspension (1 source) Polyene Antifungal Start: 05-29-2023 take 5 mL by mouth three times daily Nystatin 950111 UNIT/ML 5 ml Mouth/Throat 3 times a [...] 16, 2023 12:00am omeprazole magne sium (ACID MEDICAL SALES ASSOCIATE, OMEPRAZOLE, ORAL) Take by mouth as directed. [...] above: Take by mouth as dir ected. ykyxivao34-hokc-gjjnv- omega3 29-1-400 mg combo pack,tablet & capDR (9 sources) opwcwxic87-fnmk- folic -omega3 29-1-400 mg combo pack,tablet & [...] mg/ml oral solution (4 sources) Phenothiazine, Uncompetitive T-cipmsb-F-aspartat e Receptor Antagonist, Sigma-1 Agonist Start: 01-08-2020 [...] Test Name Value Interpretation Reference Range Facility OUTSIDE SURG PATH SLIDE REVI EWon 03-17-2024 CASE REPORT Normal [facility] Comment on above: Order Comment: Speci men Type: FORMALIN-FIXED PARAFFIN-EMBEDDED TISSUE SPECIMENOrdering Facility: Outside Review Address: , , Result Comment: Surg [facility] Pathology Report Case: [id number] Authorizing Provider: Fransico Sharp MD Collected: 03/17/2024 09:09 AM Ordering Location: [facility] Received: 03/17/2024 09:08 AM [facility] Pathologist: Ankita Feldman MD Specimen: Slide(s), 5 SLIDES, [id number] Performed By: #### L [id number] ####[facility] LABCLIA [id number] [place] [address] [place] DIAGNOSIS COMMENT Normal [facility] Comment on above: Order Comment: Speci men Type: FORMALIN-FIXED PARAFFIN-EMBEDDED TISSUE SPECIMENOrdering Facility: AP Outside Review Address: , , Result Comment: Hist ologic sections demonstrate an asymmetric compound melanocytic proliferation on moderately sun-damaged skin. The junctional melanocytes are arranged as single cells and variably-sized nests with areas of confluence and adnexal extension. The melanocytes contain pale eosinophilic cytoplasm, enlarged nuclei, and variably-prominent nucleoli. The dermal component consists of nests of similar-appearing melanocytes with impaired maturation. The provided immunohistochemical stains from the referring institution were reviewed at the [facility]. The SOX10 stain highlights the aforementioned compound melanocytic proliferation with areas of confluence and pagetoid spread. The Melan-A/Ki67 multiplex stain demonstrates an elevated proliferative index within the dermal melanocytes. P16 expression is retained and a PRAME stain is positive. Overall, the histologic and immunohistochemical features are those of melanoma. An appropriate re-excision is recommended. Please see synoptic report for further characterization. Performed By: #### L [id number] ####[facility] LABCLIA [id number] [address] FINAL DIAGNOSIS Normal [facility] Comment on above: Order Comment: Speci men Type: FORMALIN-FIXED PARAFFIN-EMBEDDED TISSUE SPECIMENOrdering Facility: AP Outside Review Address: , , Result Comment: Skin , left upper cutaneous lip, shave biopsy: - Melanoma (see comment and synoptic report). MANJU/DARYN/chuy/03/17/2024 Performed By: #### L [id number] ####[facility] LABCLIA [id number] [address] FINAL PERFORMING LAB Normal [facility] Comment on above: Order Comment: Speci men Type: FORMALIN-FIXED PARAFFIN-EMBEDDED TISSUE SPECIMENOrdering Facility: AP Outside Review Address: , , Result Comment: Diag nostic interpretation performed at [facility], [address] [place], [place] [address] CLIA# [id number] Oxyacetylene Burner: Ac Duval M.D. Performed By: #### L [id number] ####[facility] LABCLIA [id number] [address] [address] [place] SYNOPTIC REPORT Normal [facility] Comment on above: Order Comment: Speci men Type: FORMALIN-FIXED PARAFFIN-EMBEDDED TISSUE SPECIMENOrdering Facility: AP Outside Review Address: , , Result Comment: BERTA DAVENPORT MELANOMA OF THE SKIN: Biopsy MELANOMA OF THE SKIN: BIOPSY - All Specimens 8th Edition - Protocol posted: 09/12/2023 SPECIMEN Procedure: Biopsy, shave Specimen Laterality: Left TUMOR Tumor Site: Skin of lip: upper cutaneous lip 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) Maximum Tumor (Breslow) Thickness (Millimeters): At least: 0.7 mm : transected Ulceration: Not identified Anatomic (Robert) Level: IV (melanoma invades reticular dermis) Mitotic Rate: None identified Microsatellite(s): Not identified Lymphatic and / or Vascular Invasion: Not identified Neurotropism: Not identified Tumor-Infiltrating Lymphocytes: Present, non-brisk Tumor Regression: Not identified MARGINS Margin Status for Invasive Melanoma: Invasive melanoma present at margin Margin(s) Involved by Invasive Melanoma: Peripheral Margin(s) Involved by Invasive Melanoma: Deep Margin Status for Melanoma In Situ: Melanoma in situ present at margin Margin(s) Involved by Melanoma In Situ: Peripheral Margin(s) Involved by Melanoma In Situ: Deep pTMN CLASSIFICATION (AJCC 8th Edition) Reporting of pT category is based on information available to the pathologist at the time the report is issued. As per the AJCC (Chapter 1, 8th Ed.) it is the managing physician???s responsibility to establish the final pathologic stage based upon all pertinent information, including but potentially not limited to this pathology report. pT Category: pT1a Performed By: #### L [id number] ####[facility] [id number] [address] [address] [facility] [place] Alina 03-11-2024 PRADEEPN Telephone (PLASMN) JOSSJuvenalVY ([id number]) 1990 F Date Time Provider Department 03/11/24 [...] mg by mouth. - omeprazole magnesium (ACID MEDICAL SALES ASSOCIATE, OMEPRAZOLE, ORAL) Take by mouth as directed. [...] Encounter Status:Closed by WARD ORTA on 03/11/24 [facility] 03-04-2024 [facility] Telephone (HEMASA) VY MCKEON ([id number]) 1990 F Date Time Provider Department 03/04/24 [...] mg by mouth. - omeprazole magnesium (ACID MEDICAL SALES ASSOCIATE, OMEPRAZOLE, ORAL) Take by mouth as directed. [...] Encounter Status:Closed by DAISY MURRAY on 03/05/24 Normal [facility] CNPNon 02-29-2024 CNPN Telephone (PLASMN) VY MCKEON ([id number]) 1990 F Date Time Provider Department 02/29/24 [...] mg by mouth. - omeprazole magnesium (ACID MEDICAL SALES ASSOCIATE, OMEPRAZOLE, ORAL) Take by mouth as directed. [...] Encounter Status:Closed by SURJIT GRIGGS on 03/03/24 [facility] VY MCKEON ([id number]) 1990 F Date Time Provider Department 02/26/24 [...] mg by mouth. - omeprazole magnesium (ACID MEDICAL SALES ASSOCIATE, OMEPRAZOLE, ORAL) Take by mouth as directed. [...] Status:Closed by SYLVIA ALCALA on 02/26/24 Normal [facility] CT CHEST W IVCONon CT CHEST W IVCON * * *Final Report* * * DATE OF EXAM: Feb 22 2024 11:19AM [facility] 0539 - CT CHEST W IVCON / [...] abdomen: Visualized upper abdomen is grossly unremarkable. Attendant Honor Bar (topogram) images: Unremarkable. IMPRESSION: Focal groundglass opacity left upper lobe is likely infectious/inflammatory however attention on follow-up is recommended. No [...] any questions regarding this interpretation, please call [phone]. If you are unable to reach us at the number above, please feel free to contact [facility] at [phone]. [id number] Normal [facility] CT NECK SOFT TISSUE W IVCONo n 02-22-2024 CT NECK SOFT TISSUE W IVCON * * *Final Report* * * DATE OF EXAM: Feb 22 2024 11:19AM [facility] 0013 - CT NECK SOFT TISSUE W [...] amalgam. Parotid and submandibular spaces are normal. Rn Operating Room spaces appear normal. Infrahyoid Neck: Hypopharynx, larynx, [...] any questions regarding this interpretation, please call [phone]. If you are unable to reach us at the number above, please feel free to contact [facility] at [phone]. [id number] Normal [facility] CBC W Auto Differential pane l (Bld)on 02-20-2024 Basophils (Bld) [#/Vol] 0.03 10*3/uL Normal <0.11 [facility] Comment on above: Order Comment: Speci men Type: BLOOD SPECIMENOrdering Facility: [facility] Address: [address] [place] [address] Performed By: #### 5 7021-8 ####[facility] LABCLIA [id number] [place] [address] Basophils/100 WBC (Bld) 0.3 % Normal [facility] Comment on above: Order Comment: Speci men Type: BLOOD SPECIMENOrdering Facility: [facility] Address: [address] [place] [address] Performed By: #### 5 7021-8 ####[facility] LABCLIA [id number] [place] [address] Differential cell count method Nom (Bld) Auto Normal [facility] Comment on above: Order Comment: Speci men Type: BLOOD SPECIMENOrdering Facility: [facility] Address: [address] [place] [address] Performed By: #### 5 7021-8 ####[facility] LABCLIA [id number] [place] [address] Eosinophils (Bld) [#/Vol] 0.08 10*3/uL Normal <0.46 [facility] Comment on above: Order Comment: Speci men Type: BLOOD SPECIMENOrdering Facility: [facility] Address: [address] [place] [address] Performed By: #### 5 7021-8 ####[facility] LABCLIA [id number] [place] [address] Eosinophils/100 WBC (Bld) 0.8 % Normal [facility] Comment on above: Order Comment: Speci men Type: BLOOD SPECIMENOrdering Facility: [facility] Address: [address] [place] [address] Performed By: #### 5 7021-8 ####[facility] LABCLIA [id number] [place] [address] Erythrocyte distribution width (RBC) [Ratio] 13.5 % Normal 11.5-15.0 [facility] Comment on above: Order Comment: Speci men Type: BLOOD SPECIMENOrdering Facility: [facility] Address: [address] [place] [address] Performed By: #### 5 7021-8 ####[facility] LABCLIA [id number] [place] [address] Hematocrit (Bld) [Volume fraction] 33.4 % Low 36.0-46.0 [facility] Comment on above: Order Comment: Speci men Type: BLOOD SPECIMENOrdering Facility: [facility] Address: [address] [place] [address] Performed By: #### 5 7021-8 ####[facility] LABCLIA [id number] [place] [address] Hemoglobin (Bld) [Mass/Vol] 11.2 g/dL Low 11.5-15.5 [facility] Comment on above: Order Comment: Speci men Type: BLOOD SPECIMENOrdering Facility: [facility] Address: [address] [place] [address] Performed By: #### 5 7021-8 ####[facility] LABCLIA [id number] [place] [address] Immature granulocytes (Bld) [#/Vol] 0.07 10*3/uL Normal <0.10 [facility] Comment on above: Order Comment: Speci men Type: BLOOD SPECIMENOrdering Facility: [facility] Address: [address] [place] [address] Performed By: #### 5 7021-8 ####[facility] LABCLIA [id number] [place] [address] Immature granulocytes/100 WBC (Bld) 0.7 % Normal [facility] Comment on above: Order Comment: Speci men Type: BLOOD SPECIMENOrdering Facility: [facility] Address: [address] [place] [address] Performed By: #### 5 7021-8 ####[facility] LABCLIA [id number] [place] [address] Lymphocytes (Bld) [#/Vol] 1.13 10*3/uL Normal 1.00-4.00 [facility] Comment on above: Order Comment: Speci men Type: BLOOD SPECIMENOrdering Facility: [facility] Address: [address] [place] [address] Performed By: #### 5 7021-8 ####[facility] LABCLIA [id number] [place] [address] Lymphocytes/100 WBC (Bld) 10.7 % Normal [facility] Comment on above: Order Comment: Speci men Type: BLOOD SPECIMENOrdering Facility: [facility] Address: [address] [place] [address] Performed By: #### 5 7021-8 ####[facility] LABCLIA [id number] [place] [address] MCH (RBC) [Entitic mass] 29.5 pg Normal 26.0-34.0 [facility] Comment on above: Order Comment: Speci men Type: BLOOD SPECIMENOrdering Facility: [facility] Address: [address] [place] [address] Performed By: #### 5 7021-8 ####[facility] LABCLIA [id number] [place] [address] MCHC (RBC) [Mass/Vol] 33.5 g/dL Normal 30.5-36.0 [facility] Comment on above: Order Comment: Speci men Type: BLOOD SPECIMENOrdering Facility: [facility] Address: [address] [place] [address] Performed By: #### 5 7021-8 ####[facility] LABCLIA [id number] [place] [address] MCV (RBC) [Entitic vol] 87.9 fL Normal 80.0-100.0 [facility] Comment on above: Order Comment: Speci men Type: BLOOD SPECIMENOrdering Facility: [facility] Address: [address] [place] [address] Performed By: #### 5 7021-8 ####[facility] LABCLIA [id number] [place] [address] Monocytes (Bld) [#/Vol] 0.52 10*3/uL Normal <0.87 [facility] Comment on above: Order Comment: Speci men Type: BLOOD SPECIMENOrdering Facility: [facility] Address: [address] [place] [address] Performed By: #### 5 7021-8 ####[facility] LABCLIA [id number] [place] [address] Monocytes/100 WBC (Bld) 4.9 % Normal [facility] Comment on above: Order Comment: Speci men Type: BLOOD SPECIMENOrdering Facility: [facility] Address: [address] [place] [address] Performed By: #### 5 7021-8 ####[facility] LABCLIA [id number] [place] [address] Neutrophils (Bld) [#/Vol] 8.76 10*3/uL High 1.45-7.50 [facility] Comment on above: Order Comment: Speci men Type: BLOOD SPECIMENOrdering Facility: [facility] Address: [address] [place] [address] Performed By: #### 5 7021-8 ####[facility] LABCLIA [id number] [place] [address] Neutrophils/100 WBC (Bld) 82.6 % Normal [facility] Comment on above: Order Comment: Speci men Type: BLOOD SPECIMENOrdering Facility: [facility] Address: [address] [place] [address] Performed By: #### 5 7021-8 ####[facility] LABCLIA [id number] [place] [address] Nucleated RBC (Bld) [#/Vol] 10*3/uL Normal <0.01 [facility] Comment on above: Order Comment: Speci men Type: BLOOD SPECIMENOrdering Facility: [facility] Address: [address] [place] [address] Performed By: #### 5 7021-8 ####[facility] LABCLIA [id number] [place] [address] Nucleated RBC/100 WBC (Bld) [Ratio] 0.0 /100 WBC Normal [facility] Comment on above: Order Comment: Speci men Type: BLOOD SPECIMENOrdering Facility: [facility] Address: [address] [place] [address] Performed By: #### 5 7021-8 ####[facility] LABCLIA [id number] [place] [address] Platelet mean volume (Bld) [Entitic vol] 10.0 fL Normal 9.0-12.7 [facility] Comment on above: Order Comment: Speci men Type: BLOOD SPECIMENOrdering Facility: [facility] Address: [address] [place] [address] Performed By: #### 5 7021-8 ####[facility] LABCLIA [id number] [place] [address] Platelets (Bld) [#/Vol] 199 10*3/uL Normal 150-400 [facility] Comment on above: Order Comment: Speci men Type: BLOOD SPECIMENOrdering Facility: [facility] Address: [address] [place] [address] Performed By: #### 5 7021-8 ####[facility] LABCLIA [id number] [place] [address] RBC (Bld) [#/Vol] 3.80 10*6/uL Low 3.90-5.20 [facility] Comment on above: Order Comment: Speci men Type: BLOOD SPECIMENOrdering Facility: [facility] Address: [address] [place] [address] Performed By: #### 5 7021-8 ####[facility] LABCLIA [id number] [place] [address] WBC (Bld) [#/Vol] 10.59 10*3/uL Normal 3.70-11.00 [facility] Comment on above: Order Comment: Speci men Type: BLOOD SPECIMENOrdering Facility: [facility] Address: [address] [place] [address] Performed By: #### 5 7021-8 ####[facility] LABCLIA [id number] [place] [address] Comprehensive metabolic 2000 panelon 02-20-2024 Albumin [Mass/Vol] 3.8 g/dL Low 3.9-4.9 [facility] Comment on above: Order Comment: Speci men Type: BLOOD SPECIMENOrdering Facility: [facility] Address: [address] [place] [address] Performed By: #### 2 4323-8, 2532-0 ####[facility] LABCLIA [id number] [place] [address] ALP [Catalytic activity/Vol] 161 U/L High 34-123 [facility] Comment on above: Order Comment: Speci men Type: BLOOD SPECIMENOrdering Facility: [facility] Address: [address] [place] [address] Performed By: #### 2 4323-8, 2532-0 ####[facility] LABCLIA [id number] [place] [address] ALT [Catalytic activity/Vol] 13 U/L Normal 7-38 [facility] Comment on above: Order Comment: Speci men Type: BLOOD SPECIMENOrdering Facility: [facility] Address: [address] [place] [address] Performed By: #### 2 4323-8, 253-0 ####[facility] LABCLIA [id number] [place] [address] Anion gap [Moles/Vol] 10 mmol/L Normal 9-18 [facility] Comment on above: Order Comment: Speci men Type: BLOOD SPECIMENOrdering Facility: [facility] Address: [address] [place] [address] Performed By: #### 2 4323-8, 2531-0 ####[facility] LABCLIA [id number] [place] [address] AST [Catalytic activity/Vol] 21 U/L Normal 13-35 [facility] Comment on above: Order Comment: Speci men Type: BLOOD SPECIMENOrdering Facility: [facility] Address: [address] [place], [place] [address] Performed By: #### 2 4323-8, 2532-0 ####[facility] LABCLIA [id number] [place] [address] Bilirubin [Mass/Vol] 0.2 mg/dL Normal 0.2-1.3 [facility] Comment on above: Order Comment: Speci men Type: BLOOD SPECIMENOrdering Facility: [facility] Address: [address] [place] [address] [place] [address] Performed By: #### 2 432-8, 2531-0 ####[facility] LABCLIA [id number] [place] [address] Calcium [Mass/Vol] 10.1 mg/dL Normal 8.5-10.2 [facility] Comment on above: Order Comment: Speci men Type: BLOOD SPECIMENOrdering Facility: [facility] Address: [address] [place], [place] [address] Performed By: #### 2 4328, 2531-0 ####[facility] LABCLIA [id number] [place] [address] Chloride [Moles/Vol] 103 mmol/L Normal 97-105 [facility] Comment on above: Order Comment: Speci men Type: BLOOD SPECIMENOrdering Facility: [facility] Address: [address] [place] [address] Performed By: #### 2 4328, 2531-0 ####[facility] LABCLIA [id number] [place] [address] CO2 [Moles/Vol] 21 mmol/L Low 22-30 [facility] Comment on above: Order Comment: Speci men Type: BLOOD SPECIMENOrdering Facility: [facility] Address: [address] [place], [place] [address] Performed By: #### 2 4328, 2531-0 ####[facility] LABCLIA [id number] [place] [address] Creatinine [Mass/Vol] 0.61 mg/dL Normal 0.58-0.96 [facility] Comment on above: Order Comment: Speci men Type: BLOOD SPECIMENOrdering Facility: [facility] Address: [address] [place], [place] [address] Performed By: #### 2 4323-8, 2531-0 ####[facility] LABCLIA [id number] [place] [address] Creatinine and Glomerular filtration rate.predicted panel (S/P/Bld) 120 mL/min/1.73m??? Normal >=60 [facility] Comment on above: Order Comment: Kavin childress Type: BLOOD SPECIMENOrdering Facility: [facility] Address: [address] [place] [address] Result Comment: Araseli mated Glomerular Filtration Rate [...] GFR. Performed By: #### 2 4323-8, 0 ####[facility] LABCLIA [id number] [place] [address] Glucose [Mass/Vol] 85 mg/dL Normal 74-99 [facility] Comment on above: Order Comment: Kavin childress Type: BLOOD SPECIMENOrdering Facility: [facility] Address: [address] [place] [address] Result Comment: The [place] [employer] (ADA) provides guidance for cutoff [...] Standards of Medical Care in Diabetes 2016, [place] [employer]. Diabetes Care. 2016.39(Suppl 1). Performed By: #### 2 4323-8, 0 ####[facility] LABCLIA [id number] [place] [address] Potassium [Moles/Vol] 3.9 mmol/L Normal 3.7-5.1 [facility] Comment on above: Order Comment: Speci men Type: BLOOD SPECIMENOrdering Facility: [facility] Address: [address] [place] [address] Performed By: #### 2 4323-8, 2531-0 ####[facility] LABCLIA [id number] [place] [address] Protein [Mass/Vol] 7.2 g/dL Normal 6.3-8.0 [facility] Comment on above: Order Comment: Speci men Type: BLOOD SPECIMENOrdering Facility: [facility] Address: [address] [place] [address] Performed By: #### 2 4323-8, 2531-0 ####[facility] LABCLIA [id number] [place] [address] Sodium [Moles/Vol] 134 mmol/L Low 136-144 [facility] Comment on above: Order Comment: Speci men Type: BLOOD SPECIMENOrdering Facility: [facility] Address: [address] [place] [address] Performed By: #### 2 4323-8, 2531-0 ####[facility] LABCLIA [id number] [place] [address] Urea nitrogen [Mass/Vol] 6 mg/dL Low 7-21 [facility] Comment on above: Order Comment: Speci men Type: BLOOD SPECIMENOrdering Facility: [facility] Address: [address] [place] [address] Performed By: #### 2 4323-8, 2531-0 ####[facility] LABCLIA [id number] [place] [address] LDH SerPl-cCncon 02-20-2024 LDH [Catalytic activity/Vol] 210 U/L Normal 135-214 [facility] Comment on above: Order Comment: Speci men Type: BLOOD SPECIMENOrdering Facility: [facility] Address: [address] [place] [address] Performed By: #### 2 4323-8, 2531-0 ####[facility] LABCLIA [id number] [place] [address] COMPLETE BLOOD COUNTon 01-28 Erythrocyte distribution width (RBC) [Ratio] 13.6 % Normal 11.5-15.0 [facility] Comment on above: Performed By: #### C BC CMP, 0, 3083-10 #### [facility] ([id number]) [address] [place] [address] Hematocrit (Bld) [Volume fraction] 29.4 % Low 35-47 [facility] Comment on above: Performed By: #### C GUI CMP, 0, 3083-10 #### [facility] ([id number]) [address] [place] [address] Hemoglobin (Bld) [Mass/Vol] 10.4 g/dL Low 11.7-15.5 [facility] Comment on above: Performed By: #### C GUI CMP, 0, 3083-10 #### [facility] ([id number]) [address] [place] [address] MCH (RBC) [Entitic mass] 31.0 pg Normal 27-34 [facility] Comment on above: Performed By: #### C BC CMP, 0, 3083-10 #### [facility] ([id number]) [address] [place] [address] MCHC (RBC) [Mass/Vol] 35.3 g/dL Normal 32-36 [facility] Comment on above: Performed By: #### C BC CMP, 0, 3083-10 #### [facility] ([id number]) [address] [place] [address] MCV (RBC) [Entitic vol] 88 fL Normal 80-100 [facility] Comment on above: Performed By: #### Adri MESSER, CMP, 2532-0, 3083-1 #### [facility] ([id number]) [address] [place] [address] Platelet mean volume (Bld) [Entitic vol] 8.1 fL Normal 7-12 [facility] Comment on above: Performed By: #### Adri MESSER, CMP, 2531-0, 3083-1 #### [facility] ([id number]) [address] [place] [address] Platelets (Bld) [#/Vol] 205 10*3/uL Normal 150-450 [facility] Comment on above: Performed By: #### Adri MESSER, CMP, 0, 3083-10 #### [facility] ([id number]) [address] [place] [address] RBC COUNT 3.34 X10E12/L Low 3.80-5.20 [facility] Comment on above: Performed By: #### Adri MESSER, CMP, 0, 3083- #### [facility] ([id number]) [address] [place] [address] WBC (Bld) [#/Vol] 8.2 10*3/uL Normal 4.0-11.[address] [facility] Comment on above: Performed By: #### Adri MESSER, CMP, 2531-0, 3083- #### [facility] ([id number]) [address] [place] [address] COMPREHENSIVE METABOLIC PANE Joel 01-29-2024 Albumin [Mass/Vol] 2.8 g/dL Low 3.2-5.[address] [facility] Comment on above: Performed By: #### Adri BC, CMP, 2532-0, 3083-1 #### [facility] ([id number]) [address] [place] [address] ALP [Catalytic activity/Vol] 103 U/L Normal 39-130 [facility] Comment on above: Performed By: #### C GUI CMP, 2532-0, 3083-1 #### [facility] ([id number]) [address] [place] [address] ALT [Catalytic activity/Vol] 16 U/L Normal 0-31 [facility] Comment on above: Performed By: #### Adri MESSER, CMP, 2531-0, 3083-10 #### [facility] ([id number]) [address] [place] [address] Anion gap [Moles/Vol] 9 mmol/L Normal 5-15 [facility] Comment on above: Performed By: #### Adri MESSER CMP, 0, 3083-10 #### [facility] ([id number]) [address] [place] [address] AST [Catalytic activity/Vol] 18 U/L Normal 0-41 [facility] Comment on above: Performed By: #### Adri MESSER CMP, 2531-0, 3083- #### [facility] ([id number]) [address] [place] [address] Bilirubin [Mass/Vol] 0.3 mg/dL Normal 0.3-1.2 [facility] Comment on above: Performed By: #### Adri MESSER, CMP, 2531-0, 3083-10 #### [facility] ([id number]) [address] [place] [address] Calcium [Mass/Vol] 9.2 mg/dL Normal 8.5-10.[address] [facility] Comment on above: Performed By: #### Adri BC, CMP, 253-0, 3083- #### [facility] ([id number]) [address] [place] [address] Chloride [Moles/Vol] 105 mmol/L Normal 98-109 [facility] Comment on above: Performed By: #### C NATASHA MESSER, 2532-0, 3083-1 #### [facility] ([id number]) [address] [place] [address] CO2 [Moles/Vol] 22 mmol/L Normal 22-32 [facility] Comment on above: Performed By: #### Adri MESSER CMP, 2531-0, 3083-10 #### [facility] ([id number]) [address] [place] [address] Creatinine [Mass/Vol] 0.51 mg/dL Normal 0.40-1.00 [facility] Comment on above: Result Comment: METH OD TRACEABLE TO IDMS STANDARD Performed By: #### Adri MESSER CMP, 0, 3083-10 #### [facility] ([id number]) [address] [place] [address]02 eGFR (CKD-EPI) NON-RACE DEPENDENT >90 Normal >59 [facility] Comment on above: Result Comment: Reported eGFR is based on the CKD-EPI 2020 equation that does not use a race coefficient. Performed By: #### Adri MESSER CMP, 0, 3083-10 #### [facility] ([id number]) [address] [place] [address] Glucose [Mass/Vol] 96 mg/dL Normal 65-[address] [facility] Comment on above: Performed By: #### Adri MESSER CMP, 253-0, 3083-10 #### [facility] ([id number]) [address] [place] [address] Potassium [Moles/Vol] 4.1 mmol/L Normal 3.5-5.0 [facility] Comment on above: Performed By: #### Adri MESSER CMP, 2532-0, 3083-1 #### [facility] ([id number]) [address] [place] [address] [place] [address] Protein [Mass/Vol] 6.5 g/dL Normal 6.0-8.[address] [facility] Comment on above: Performed By: #### C GUI [facility], 2532-0, 3084-1 #### [facility] ([id number]) [address] [place] [address] Sodium [Moles/Vol] 136 mmol/L Normal 134-[address] [facility] Comment on above: Performed By: #### C GUI [facility], 2532-0, 3084-1 #### [facility] ([id number]) [address] [place] [address] Urea nitrogen [Mass/Vol] 5 mg/dL Normal 5-23 [facility] Comment on above: Performed By: #### C GUI [facility], 0, 3083-1 #### [facility] ([id number]) [address] [place] [address] LDH [Catalytic activity/Vol] on 01-29-2024 LDH 128 U/L Normal 100-235 [facility] Comment on above: Performed By: #### C GUI [facility], 2-0, 308-1 #### [facility] ([id number]) [address] [place] [address]175 PROTEIN CREAT RATIOon 2023 RANDOM URINE PROTEIN 30 mg/L Normal <120 [facility] Comment on above: Performed By: #### U PCR #### [facility] ([id number]) [address] [place] [address]328 U/PRO/NEAR EASTERN ARCHAEOLOGY LECTURER RATIO CALC 0.12 Normal <0.2 [facility] Comment on above: Result Comment: Neph rotic Syndrome is associated with ratios >3.5 Performed By: #### U PCR #### [facility] ([id number]) [address] [place] [address] 16417 URINE CREATININE,RDM 25.84 mg/dL Normal [facility] Comment on above: Performed By: #### U PCR #### [facility] ([id number]) [address] [place] [address] 68954 URIC ACIDon 01-29-2024 Urate [Mass/Vol] 4.1 mg/dL Normal 2.6-7.2 [facility] Comment on above: Performed By: #### C BC, CMP, 2532-0, 3084-1 #### [facility] ([id number]) [address] [place] [address], [place] [address] CNPNon 01-25-2024 CNPN Telephone (PLASMN) VY MCKEON ([id number]) 1990 F Date Time Provider Department 01/25/24 [...] mg by mouth. - omeprazole magnesium (ACID MEDICAL SALES ASSOCIATE, OMEPRAZOLE, ORAL) Take by mouth as directed. [...] Encounter Status:Closed by CYNTH[facility] (HEMASA) VY MCKEON ([id number]) 1990 F Date Time Provider Department 01/22/24 [...] [C43.9] Order(s):CT NECK SOFT TISSUE W IVCON [[id number]] Order #: [id number] FUTURE [] iv contrast (will be provided [...] 1 EachRfl: 0 CT CHEST W IVCON [[id number]] Order #: [id number] FUTURE [] iv contrast (will be provided [...] EachRfl: 0 LACTATE DEHYDROGENASE [SQLD6] Order #: [id number] FUTURE COMPLETE BLOOD COUNT AND DIFFERENTIAL [SQCBCDIF] Order #: [id number] FUTURE COMPREHENSIVE METABOLIC PANEL [SQCMP] Order #: [id number] FUTURE Prescriptions as of 01/30/2024 - diphenhydramine [...] mg by mouth. - omeprazole magnesium ([employer]ICAL SALES ASSOCIATE, OMEPRAZOLE, ORAL) Take by mouth as directed. [...] In Off (more content not included)... Normal [facility] Telephone (VDP509) VY MCKEON ([id number]) 1990 F Date Time Provider Department 01/22/24 ANA PEOPLES [id number] During your visit today, we recorded the following information about you: Ana Peoples MD 01/22/2024 3:44 PM Signed 01/22/2024 M Pt called and identified ~ [...] mg by mouth. - omeprazole magnesium ([employer]ID MEDICAL SALES ASSOCIATE, OMEPRAZOLE, ORAL) Take by mouth as directed. [...] Status:Closed by ANA PEOPLES on 01/22/24 Normal [facility] Examination level ultrasound on 01-21-2024 Indication [...] of AF: normal amount. MVP 4.9 cm. RBAN 13.5 cm. Q1 4.9 cm, Q2 2.0 [...] 9 oz EFW by: Hadlock (HC-AC-FL) Extended Car Wash Manager 3.1 mm CM 7.6 mm 70% Nicolaides [...] normal LVOT view: normal 3-vessel view: normal 5-ybrdnm-rrqxbxk view: normal Heart / Thorax Situs: situs [...] Read By: Ana Peoples MD MATERNAL MEDICINE [facility] Radiology Study observation (narrative) [facility]Y [facility] ([id number]) 1990 F Date Time Provider Department 01/18/24 [...] mg by mouth. - omeprazole magnesium ([employer]ICAL SALES ASSOCIATE, OMEPRAZOLE, ORAL) Take by mouth as directed. - PNV no.95/ferrous fum/folic ac ( ORAL) Take by mouth as directed. Problem List As Of Date: 01/18/2024 (None) Encounter Status:Closed by JOSE L CROWLEY on 01/18/24 [facility] Alina 01-10-2024 CNPN Telephone (OBGYF2) VY MCKEON ([id number]) 1990 F Date Time Provider Department 01/10/24 HISTORICAL OBGYF2 During your visit today, we recorded the following information about you: Rolo Parada 01/10/2024 9:19 AM Signed [place] msg was sent to patient asking for [...] mg by mouth. - omeprazole magnesium (ACID MEDICAL SALES ASSOCIATE, OMEPRAZOLE, ORAL) Take by mouth as directed. - PNV no.95/ferrous fum/folic ac ( ORAL) Take by mouth as directed. Problem List As Of Date: 01/10/2024 (None) Encounter Status:Closed by ROLO PARADA on 01/10/24 [facility] 01-09-2024 PR[facility]PN Telephone (PLASMN) VY MCKEON ([id number]) 1990 F Date Time Provider Department 01/09/24 FRANSICO SHARP During your visit today, we recorded the following information about you: Fernanda Michael 01/09/2024 9:55 AM Signed Patient called that she is seeing Maternal Med, in her area and was questioning does she need to see one at the [facility]? She is asking for a call.. she is very nervous Surjit Griggs, BRITNEY 01/09/2024 12:42 PM Signed Reached out to patient. Instructions provided to see a maternal medicine specialist within the [facility] per Dr. Sharp. This nurse explained that [...] mg by mouth. - omeprazole magnesium (ACID MEDICAL SALES ASSOCIATE, OMEPRAZOLE, ORAL) Take by mouth as directed. - PNV no.95/ferrous fum/folic ac ( ORAL) Take by mouth as directed. Problem List As Of Date: 01/09/2024 (None) Encounter Status:Closed by FERNANDA MICHAEL on 01/09/24 Normal [facility] CNOVSPon 01-04-2024 CNOVSP Visit (SP) Office (JESSICA) HALM,VY ([id number]) 1990 F Date Time Provider Department 01/04/24 2:15 PM FRANSICO SHARP During your visit today, we recorded the following information about you: Temperature Pulse Respiration Blood pressure 97.1 degrees 94/minute 20/minute 148/83 Fransico Sharp MD 01/06/2024 9:42 AM Signed DATE: January 03, 2024 CC: New Melanoma Patient Referring Physician: Margarita Kim MD at [facility] in [place] HPI: Vy Mckeon is a 33 year [...] 400 mg by mouth. omeprazole magnesium (ACID MEDICAL SALES ASSOCIATE, OMEPRAZOLE, ORAL) Take by mouth as directed. [...] and significant neck swelling. SKIN: See HPI HEMATOLOGIC/LYMPHATIC/I MMUNOLOGIC:Negative for prolonged bleeding, bruising easily, and swollen nodes. PHYSICAL EXAM: BP 148/83 Pulse 94 Temp 36.2 ?C (97.1 ?F) (Temporal) Resp 20 LMP 06/24/2023 SpO2 99% GENERAL: Patient is a well-nourished , appearing stated age, resting comfortably, breathing regularly. No acute distress. Skin: Pigmented lesion on the left upper lip with a variegated pattern, grocery stocker in the middle with a number of dark spots. The lesion measures 1 cm in diameter. Photos taken, see [facility] Get Images LABS: Pathology Report [...] taken and uploaded to chart today via [employer] - Pathology re-read to be obtained - Surgical plan is for resection of left upper lip melano (more content not included)... Normal [facility] CBC W Auto Differential pane l (Bld)on 12-26-2023 Basophils (Bld) [#/Vol] 0.03 10*3/uL Normal <0.11 [facility] Comment on above: Order Comment: Speci men Type: BLOOD SPECIMENOrdering Facility: [facility] Address: [address] [place] [address] Performed By: #### 5 7021-8 ####[facility] LABCLIA [id number] [place] [address] Basophils/100 WBC (Bld) 0.3 % Normal [facility] Comment on above: Order Comment: Speci men Type: BLOOD SPECIMENOrdering Facility: [facility] Address: [address] [place] [address] Performed By: #### 5 7021-8 ####[facility] LABCLIA [id number] [place] [address] Differential cell count method Nom (Bld) Auto Normal [facility] Comment on above: Order Comment: Speci men Type: BLOOD SPECIMENOrdering Facility: [facility] Address: [address] [place] [address] Performed By: #### 5 7021-8 ####[facility] LABCLIA [id number] [place] [address] Eosinophils (Bld) [#/Vol] 0.15 10*3/uL Normal <0.46 [facility] Comment on above: Order Comment: Speci men Type: BLOOD SPECIMENOrdering Facility: [facility] Address: [address] [place] [address] Performed By: #### 5 7021-8 ####[facility] LABCLIA [id number] [place] [address] Eosinophils/100 WBC (Bld) 1.5 % Normal [facility] Comment on above: Order Comment: Speci men Type: BLOOD SPECIMENOrdering Facility: [facility] Address: [address] [place] [address] Performed By: #### 5 7021-8 ####[facility] LABCLIA [id number] [place] [address] Erythrocyte distribution width (RBC) [Ratio] 13.5 % Normal 11.5-15.0 [facility] Comment on above: Order Comment: Speci men Type: BLOOD SPECIMENOrdering Facility: [facility] Address: [address] [place] [address] Performed By: #### 5 7021-8 ####[facility] LABCLIA [id number] [place] [address] Hematocrit (Bld) [Volume fraction] 35.5 % Low 36.0-46.0 [facility] Comment on above: Order Comment: Speci men Type: BLOOD SPECIMENOrdering Facility: [facility] Address: [address] [place] [address] Performed By: #### 5 7021-8 ####[facility] LABCLIA [id number] [place] [address] Hemoglobin (Bld) [Mass/Vol] 12.0 g/dL Normal 11.5-15.5 [facility] Comment on above: Order Comment: Speci men Type: BLOOD SPECIMENOrdering Facility: [facility] Address: [address] [place] [address] Performed By: #### 5 7021-8 ####[facility] LABCLIA [id number] [place] [address] Immature granulocytes (Bld) [#/Vol] 0.06 10*3/uL Normal <0.10 [facility] Comment on above: Order Comment: Speci men Type: BLOOD SPECIMENOrdering Facility: [facility] Address: [address] [place] [address] Performed By: #### 5 7021-8 ####[facility] LABCLIA [id number] [place] [address] Immature granulocytes/100 WBC (Bld) 0.6 % Normal [facility] Comment on above: Order Comment: Speci men Type: BLOOD SPECIMENOrdering Facility: [facility] Address: [address] [place] [address] Performed By: #### 5 7021-8 ####[facility] LABCLIA [id number] [place] [address] Lymphocytes (Bld) [#/Vol] 1.46 10*3/uL Normal 1.00-4.00 [facility] Comment on above: Order Comment: Speci men Type: BLOOD SPECIMENOrdering Facility: [facility] Address: [address] [place] [address] Performed By: #### 5 7021-8 ####[facility] LABCLIA [id number] [place] [address] Lymphocytes/100 WBC (Bld) 15.0 % Normal [facility] Comment on above: Order Comment: Speci men Type: BLOOD SPECIMENOrdering Facility: [facility] Address: [address] [place] [address] Performed By: #### 5 7021-8 ####[facility] LABCLIA [id number] [place] [address] MCH (RBC) [Entitic mass] 30.1 pg Normal 26.0-34.0 [facility] Comment on above: Order Comment: Speci men Type: BLOOD SPECIMENOrdering Facility: [facility] Address: [address] [place] [address] Performed By: #### 5 7021-8 ####[facility] LABIA [id number] [place] [address] MCHC (RBC) [Mass/Vol] 33.8 g/dL Normal 30.5-36.0 [facility] Comment on above: Order Comment: Speci men Type: BLOOD SPECIMENOrdering Facility: [facility] Address: [address] [place] [address] Performed By: #### 5 7021-8 ####[facility] LABIA [id number] [place] [address] MCV (RBC) [Entitic vol] 89.0 fL Normal 80.0-100.0 [facility] Comment on above: Order Comment: Speci men Type: BLOOD SPECIMENOrdering Facility: [facility] Address: [address] [place] [address] Performed By: #### 5 7021-8 ####[facility] LABIA [id number] [place] [address] Monocytes (Bld) [#/Vol] 0.50 10*3/uL Normal <0.87 [facility] Comment on above: Order Comment: Speci men Type: BLOOD SPECIMENOrdering Facility: [facility] Address: [address] [place] [address] Performed By: #### 5 7021-8 ####[facility] LABIA [id number] [place] [address] Monocytes/100 WBC (Bld) 5.1 % Normal [facility] Comment on above: Order Comment: Speci men Type: BLOOD SPECIMENOrdering Facility: [facility] Address: [address] [place] [address] Performed By: #### 5 7021-8 ####[facility] [id number] [place] [address] Neutrophils (Bld) [#/Vol] 7.52 10*3/uL High 1.45-7.50 [facility] Comment on above: Order Comment: Speci men Type: BLOOD SPECIMENOrdering Facility: [facility] Address: [address] [place] [address] Performed By: #### 5 7021-8 ####[facility] [id number] [place] [address] Neutrophils/100 WBC (Bld) 77.5 % Normal [facility] Comment on above: Order Comment: Speci men Type: BLOOD SPECIMENOrdering Facility: [facility] Address: [address] [place] [address] Performed By: #### 5 7021-8 ####[facility] LABCLIA [id number] [place] [address] Nucleated RBC (Bld) [#/Vol] 10*3/uL Normal <0.01 [facility] Comment on above: Order Comment: Speci men Type: BLOOD SPECIMENOrdering Facility: [facility] Address: [address] [place] [address] Performed By: #### 5 7021-8 ####[facility] LABCLIA [id number] [place] [address] Nucleated RBC/100 WBC (Bld) [Ratio] 0.0 /100 WBC Normal [facility] Comment on above: Order Comment: Speci men Type: BLOOD SPECIMENOrdering Facility: [facility] Address: [address] [place] [address] Performed By: #### 5 7021-8 ####[facility] LABCLIA [id number] [place] [address] Platelet mean volume (Bld) [Entitic vol] 10.1 fL Normal 9.0-12.7 [facility] Comment on above: Order Comment: Speci men Type: BLOOD SPECIMENOrdering Facility: [facility] Address: [address] [place] [address] Performed By: #### 5 7021-8 ####[facility] LABCLIA [id number] [place] [address] Platelets (Bld) [#/Vol] 224 10*3/uL Normal 150-400 [facility] Comment on above: Order Comment: Speci men Type: BLOOD SPECIMENOrdering Facility: [facility] Address: [address] [place] [address] Performed By: #### 5 7021-8 ####[facility] LABCLIA [id number] [place] [address] RBC (Bld) [#/Vol] 3.99 10*6/uL Normal 3.90-5.20 [facility] Comment on above: Order Comment: Speci men Type: BLOOD SPECIMENOrdering Facility: [facility] Address: [address] [place] [address] Performed By: #### 5 7021-8 ####[facility] LABIA [id number] [place] [address] WBC (Bld) [#/Vol] 9.72 10*3/uL Normal 3.70-11.00 [facility] Comment on above: Order Comment: Speci men Type: BLOOD SPECIMENOrdering Facility: [facility] Address: [address] [place] [address] Performed By: #### 5 7021-8 ####[facility] LABIA [id number] [place] [address] CNOVSPon 12-26-2023 [facility] Visit (SP) Office (HEMASA) VY MCKEON ([id number]) 1990 F Date Time Provider Department 12/26/23 3:30 PM USMAN GOLDBERG During your visit today, we recorded the following information about you: Temperature Pulse Respiration Blood pressure 97.3 degrees 87/minute 16/minute 134/74 Weight Height Last Period 86.1 kg 1.702 m 06/24/23 Usman Goldberg MD 12/27/2023 12:46 PM Signed NAME: Vy Mckeon CLINIC NO.: [id number] DATE OF SERVICE: December 26, 2023 (Krystal) [...] magnesium (ACID (more content not included)... Normal [facility] Comprehensive metabolic 2000 panelon 12-26-2023 Albumin [Mass/Vol] 3.9 g/dL Normal 3.9-4.9 [facility] Comment on above: Order Comment: Speci men Type: BLOOD SPECIMENOrdering Facility: [facility] Address: [address] [place] [address] Performed By: #### 2 4323-8, 0 ####[facility] LABCLIA [id number] [place] [address] ALP [Catalytic activity/Vol] 109 U/L Normal 34-123 [facility] Comment on above: Order Comment: Speci men Type: BLOOD SPECIMENOrdering Facility: [facility] Address: [address] [place] [address] Performed By: #### 2 4323-8, 0 ####[facility] LABCLIA [id number] [place] [address] ALT [Catalytic activity/Vol] 26 U/L Normal 7-38 [facility] Comment on above: Order Comment: Speci men Type: BLOOD SPECIMENOrdering Facility: [facility] Address: [address] [place], [place] [address] Performed By: #### 2 4323-8, 2531-0 ####[facility] LABCLIA [id number] [place] [address] Anion gap [Moles/Vol] 10 mmol/L Normal 9-18 [facility] Comment on above: Order Comment: Speci men Type: BLOOD SPECIMENOrdering Facility: [facility] Address: [address] [place] [address] Performed By: #### 2 4323-8, 2531-0 ####[facility] LABCLIA [id number] [place] [address] AST [Catalytic activity/Vol] 26 U/L Normal 13-35 [facility] Comment on above: Order Comment: Speci men Type: BLOOD SPECIMENOrdering Facility: [facility] Address: [address] [place] [address] Performed By: #### 2 4323-8, 2531-0 ####[facility] LABCLIA [id number] [place] [address] Bilirubin [Mass/Vol] 0.2 mg/dL Normal 0.2-1.3 [facility] Comment on above: Order Comment: Speci men Type: BLOOD SPECIMENOrdering Facility: [facility] Address: [address] [place] [address] Performed By: #### 2 4323-8, 2531-0 ####[facility] LABCLIA [id number] [place] [address] Calcium [Mass/Vol] 10.1 mg/dL Normal 8.5-10.2 [facility] Comment on above: Order Comment: Speci men Type: BLOOD SPECIMENOrdering Facility: [facility] Address: [address] [place] [address] Performed By: #### 2 4323-8, 2531-0 ####[facility] LABCLIA [id number] [place] [address] Chloride [Moles/Vol] 103 mmol/L Normal 97-105 [facility] Comment on above: Order Comment: Speci men Type: BLOOD SPECIMENOrdering Facility: [facility] Address: [address] [place] [address] Performed By: #### 2 4323-8, 2531-0 ####[facility] LABCLIA [id number] [place] [address] CO2 [Moles/Vol] 23 mmol/L Normal 22-30 [facility] Comment on above: Order Comment: Speci men Type: BLOOD SPECIMENOrdering Facility: [facility] Address: [address] [place] [address] Performed By: #### 2 4323-8, 2531-0 ####[facility] LABCLIA [id number] [place] [address] Creatinine [Mass/Vol] 0.64 mg/dL Normal 0.58-0.96 [facility] Comment on above: Order Comment: Speci men Type: BLOOD SPECIMENOrdering Facility: [facility] Address: [address] [place] [address] Performed By: #### 2 4323-8, 2531-0 ####[facility] LABCLIA [id number] [place] [address] Creatinine and Glomerular filtration rate.predicted panel (S/P/Bld) 118 mL/min/1.73m??? Normal >=60 [facility] Comment on above: Order Comment: Speci men Type: BLOOD SPECIMENOrdering Facility: [facility] Address: [address] [place] [address] Result Comment: Araseli mated Glomerular Filtration Rate [...] GFR. Performed By: #### 2 4323-8, 0 ####[facility] LABCLIA [id number] [place] [address] Glucose [Mass/Vol] 85 mg/dL Normal 74-99 [facility] Comment on above: Order Comment: Kavin childress Type: BLOOD SPECIMENOrdering Facility: [facility] Address: [address] [place] [address] Result Comment: The [place] [employer] (ADA) provides guidance for cutoff [...] Standards of Medical Care in Diabetes 2016, [place] [employer]. Diabetes Care. 2016.39(Suppl 1). Performed By: #### 2 4328, ####[facility] LABCLIA [id number] [place] [address] Potassium [Moles/Vol] 4.1 mmol/L Normal 3.7-5.1 [facility] Comment on above: Order Comment: Kavin childress Type: BLOOD SPECIMENOrdering Facility: [facility] Address: [address] [place] [address] Performed By: #### 2 4323-8, 0 ####[facility] LABCLIA [id number] [place] [address] Protein [Mass/Vol] 7.3 g/dL Normal 6.3-8.0 [facility] Comment on above: Order Comment: Speci men Type: BLOOD SPECIMENOrdering Facility: [facility] Address: [address] [place] [address] Performed By: #### 2 4323-8, 2531-0 ####[facility] LABCLIA [id number] [place] [address] Sodium [Moles/Vol] 136 mmol/L Normal 136-144 [facility] Comment on above: Order Comment: Speci men Type: BLOOD SPECIMENOrdering Facility: [facility] Address: [address] [place] [address] Performed By: #### 2 432-8, 0 ####[facility] LABCLIA [id number] [place] [address] Urea nitrogen [Mass/Vol] 6 mg/dL Low 7-21 [facility] Comment on above: Order Comment: Speci men Type: BLOOD SPECIMENOrdering Facility: [facility] Address: [address] [place] [address] Performed By: #### 2 4323-8, 0 ####[facility] LABCLIA [id number] [place] [address] LDH SerPl-cCncon 12-26-2023 LDH [Catalytic activity/Vol] 190 U/L Normal 135-214 [facility] Comment on above: Order Comment: Speci men Type: BLOOD SPECIMENOrdering Facility: [facility] Address: [address] [place] [address] Result Comment: Hemo lysis present. The origin [...] indicated. Performed By: #### 2 4323-8, 2531-0 ####[facility] LABCLIA [id number] [place] [address] URETHRITIS/DISCHARGE PLUS VA GINITIS (HTRX)on 11-14-2023 ATOPOBIUM VAGINAE 19.497 Abnormal [facility] ATOPOBIUM VAGINAE Detected Abnormal [facility] althcare BVAB 2,3 (BACTERIAL VAGINOSIS ASSOCIATED BACTERIA 2, 3); MOBILUNCUS SPP 15.096 Abnormal [facility] BVAB 2,3 (BACTERIAL VAGINOSIS ASSOCIATED BACTERIA 2, 3); MOBILUNCUS SPP Detected Abnormal [facility] DIANE ALBICANS, PARAPSILOSIS, TROPICALIS 0 [facility] DIANE ALBICANS, PARAPSILOSIS, TROPICALIS Not detected [facility] DIANE GLABRATA 0 [facility] DIANE GLABRATA Not [facility] DIANE KRUSEI 0 [facility] DIANE KRUSEI Not detected [facility] CHLAMYDIA TRACHOMATIS 0 [facility] CHLAMYDIA TRACHOMATIS Not detected [facility] DFR (A1, A5), SUL (1,2) 0 PPM [facility] DFR (A1, A5), SUL (1,2) Not detected [facility] ERMB, C; MEFA 14.[address] [facility] care ERMB, C; MEFA Detected Abnormal [facility] care GARDNERELLA VAGINALIS 0 [facility] GARDNERELLA VAGINALIS Not detected [facility] Interpretation and review of laboratory results Abnormal [facility] re MEGASPHAERA (TYPES 1, 2) 0 [facility] MEGASPHAERA (TYPES 1, 2) Not detected [facility] MYCOPLASMA GENITALIUM 0 [facility] MYCOPLASMA GENITALIUM Not detected [facility] NEISSERIA GONORRHOEAE 0 [facility] NEISSERIA GONORRHOEAE Not detected [facility] TET B, TET M 18.[address] [facility] B, TET M Detected Abnormal [facility] TRICHOMONAS VAGINALIS 0 [facility] TRICHOMONAS VAGINALIS Not detected [facility] Unlisted Lab Teston 11-13-19 24 Unlisted lab test see scanned report [facility] Urinalysis macro (dipstick) panel (U)on 11-12-2023 Bilirubin, UA Negative Negative - 4(70) +++ mg/dL [facility] Blood, UA Negative Negative - 50 Manny/mcL [facility] Clarity, UA Clear [facility] Color, UA Yellow [facility] Glucose, UA Negative Negative - 1999(110) ++++ mg/dL [facility] Interpretation and review of laboratory results Normal [facility] re Ketones, UA Negative Negative - 160(16) ++++ mg/dL [facility] Leukocytes, UA Negative Negative - 500+++ Luli/mcL [facility] Nitrite, UA Negative Negative - Positive [facility] pH, UA 6.0 5 - 9 [facility] Protein, UA Negative Negative - 1999(20) ++++ mg/dL [facility] Spec Grav, UA 1.020 1 - 1.03 [facility] Urobilinogen, UA 1.0 0.2 - 12 mg/dL [facility] HCG ( test) IAnupur d Ql (U)Ordered By: Karan Romero on 03-19-2023 HCG ( test) Ql (U) Negative [facility] HCG,Urineon 03-19-2023 Beta HCG ( test) Ql (U) Negative Normal [facility] Comment on above: Result Comment: PERF ORMED BY: [place] [address] PATHOLOGIST ROOM SERVICE WAITER/WAITRESS JOYCE ACHARYA M.D. Performed By: #### U HCG #### [address] Joel 03-19-2023 L --- Specimen: [id number] Received: 03/19/23 Status: HEMANT [place] Num: [id number] Spec Type: Surgical Subm Dr: Karan Romero MD Tissues: A Duodenum - Biopsy (DUODENAL BX) B Esophagus Biopsy (ESOPHAGEAL) Procedures: HE/4, Gross/Micro L4/2 Age/ Patient Sex Location Account Attending Physician Vy Mckeon 32/F [id number] Karan Romero MD SPEC NUM: [id number] RECD: 03/19/23 STATUS: HEMANT [place] NUM: [id number] ASAD: 03/19/23-[address] [facility] [address]: Karan Romero MD ENTERED: 03/19/[address]: MERE TYPE: Surgical DEPT: S ORDERED: [...] submitted in one cassette labeled B1. Specimen: [id number] Received: 03/19/23 Status: HEMANT [place] Num: [id number] Spec Type: Surgical Subm Dr: Karan Romero MD Tissues: A Duodenum - Biopsy (DUODENAL BX) B Esophagus Biopsy (ESOPHAGEAL) Procedures: HE/4, Gross/Micro L4/2 Patient: Vy Mckeon [id number] (Continued) Specimen: [id number] Received: 03/19/23 (Continued) Signed (signature on file) Doris Reynolds MD 03/20/23 1117 Specimen: [id number] Received: 03/19/23 Status: HEMANT [place] Num: [id number] Spec Type: Surgical Subm Dr: Karan Romero MD Tissues: A Duodenum - Biopsy (DUODENAL BX) B Esophagus Biopsy (ESOPHAGEAL) Procedures: HE/4, Gross/Micro L4/2 Patient: Vy Mckeon [id number] (Continued) Specimen: [id number] Received: 03/19/23 (Continued) Microscopic Description A. Two with H E stained material have been examined. The microscopic findings support the above pathologic diagnosis. B. Two with H E stained material have been examined. The microscopic findings support the above pathologic diagnosis. CPT Codes 12915 x 2 Specimen: [id number] Received: 03/19/23 Status: HEMANT [place] Num: [id number] Spec Type: Surgical Subm Dr: Karan Romero MD Tissues: A Duodenum - Biopsy (DUODENAL BX) B Esophagus Biopsy (ESOPHAGEAL) Procedures: HE/Maday, Gross/Micro L4/2 Patient: Vy Mckeon [id number] (Continued) Signed (signature on file) Doris Reynolds MD 03/20/23 1114 [place] CBC AUTO DIFFon 02-09-2023 BASO # 0.0 103/ul Normal 0.0-0.1 [facility] Comment on above: Performed By: #### C ####[facility] [address] [place], [place] [address]Ei. Zafar Branham Basophils/100 WBC (Bld) 0.3 % Normal 0.2-2.0 [facility] Comment on above: Performed By: #### C BC ####[facility] [address] [place] [address]Dr. Zafar Branham EO # 0.2 103/ul Normal 0.0-0.7 [facility] Comment on above: Performed By: #### C BC ####[facility] [address] [place], [place] [address]Dr. Zafar Branham Eosinophils/100 WBC (Bld) 1.7 % Normal 0.9-7.0 [facility] Comment on above: Performed By: #### C BC ####[facility] [address] [place], [place] [address]Dr. Zafar Branham Erythrocyte distribution width (RBC) [Ratio] 13.9 % Normal 11.0-15.0 [facility] Comment on above: Performed By: #### C BC ####[facility] [address] [place], [place] [address]Dr. Zafar Branham Hematocrit (Bld) [Volume fraction] 41.0 % Normal 36.0-48.0 [facility] Comment on above: Performed By: #### C BC ####[facility] [address] [place], [place] [address]Dr. Zafar Branham Hemoglobin (Bld) [Mass/Vol] 13.4 g/dL Normal 12.0-16.0 [facility] Comment on above: Performed By: #### C BC ####[facility] [address] [place], [place] [address]Dr. Zafar Branham IG # 0.03 10e3/ul Normal 0.00-0.03 [facility] Comment on above: Performed By: #### C BC ####[facility] [address] [place], [place] [address]Dr. Zafar Branham IG % 0.3 % Normal 0.0-0.5 [facility] Comment on above: Performed By: #### C BC ####[facility] [address] [place], [place] [address]Dr. Zafar Yonas LYMPH # 1.4 103/ul Normal 1.2-3.8 [facility] Comment on above: Performed By: #### C BC ####[facility] [address] [place] [address]Dr. Zafar Yonas Lymphocytes/100 WBC (Bld) 14.8 % Critically low 20.5-60.0 [facility] Comment on above: Performed By: #### C BC ####[facility] [address] [place] [address]Dr. Kathytere Branham MANUAL DIFF REQ NO Normal [facility] Comment on above: Performed By: #### C BC ####[facility] [address] [place] [address]Dr. Zafar Yonas MCH (RBC) [Entitic mass] 28.8 pg Normal 26.7-34.0 [facility] Comment on above: Performed By: #### C BC ####[facility] [address] [place], [place] [address]Dr. Zafar Yonas MCHC (RBC) [Mass/Vol] 32.7 g/dL Normal 29.9-35.2 [facility] Comment on above: Performed By: #### C BC ####[facility] [address] [place] [address]Dr. Kathytere Branham MCV (RBC) [Entitic vol] 88.0 fL Normal 81.0-99.0 [facility] Comment on above: Performed By: #### C BC ####[facility] [address] [place] [address]Dr. Kathytere Yonas MONO # 0.4 103/ul Normal 0.3-0.8 [facility] Comment on above: Performed By: #### C BC ####[facility] [address] [place] [address]Dr. Kathytere Branham Monocytes/100 WBC (Bld) 3.9 % Normal 1.7-12.0 [facility] Comment on above: Performed By: #### C BC ####[facility] [address] [place], [place] [address]Dr. Zafar Branham NEUT # 7.2 103/ul Critically high 1.4-6.[address] [facility] Comment on above: Performed By: #### C BC ####[facility] [address] [place] [id number]. Zafar Branham Neutrophils/100 WBC (Bld) 79.0 % Critically high 43.0-75.0 [facility] Comment on above: Performed By: #### C BC ####[facility] [address] [place] [address]Dr. Zafar Branham Platelet mean volume (Bld) [Entitic vol] 10.7 fL Normal 9.5-13.5 [facility] Comment on above: Performed By: #### C BC ####[facility] [address] [place] [address]Dr. Zafar Branham PLT 353 103/ul Normal 150-450 [facility] Comment on above: Performed By: #### C BC ####[facility] [address] [place] [address]Dr. Zafar Branham RBC 4.66 106/ul Normal 4.20-5.40 [facility] Comment on above: Performed By: #### C BC ####[facility] [address] [place] [address]Dr. Zafar Branham WBC 9.2 103/ul Normal 4.0-11.0 [facility] Comment on above: Performed By: #### C BC ####[facility] [address] [place] [id number]. Zafar Branham CRPon 02-09-2023 CRP 1.0 mg/dL Normal <=1.0 [facility] Comment on above: Performed By: #### C RP, CMP, TSH, LIPID ####[facility] [address] [place] [address]Dr. Zafar Branham FREE T4on 02-09-2023 Free T4 [Mass/Vol] 1.01 ng/dL Normal 0.76-1.46 [facility] Comment on above: Performed By: #### F T4 #### [facility] Laboratory [address] [place], [place] [address] Dr. Zafar Branham LIPID PROFILEon 02-09-2023 CHOL-HDL RATIO NORM SEE BELOW Normal [facility] Comment on above: Result Comment: 3.3 - 4.4 LOW RISK 4.4 - 7.1 AVERAGE RISK 7.1 - 11.0 MODERATE RISK >11.0 HIGH RISK Performed By: #### C RP, CMP, TSH, LIPID ####[facility] [address] [place] [id number]. Zafar Branham Cholesterol [Mass/Vol] 230 mg/dL Critically high <=200 [facility] Comment on above: Performed By: #### C RP, CMP, TSH, LIPID ####[facility] [address] [place] [address]Dr. Zafar Branham Cholesterol in HDL [Mass/Vol] 71 mg/dL Critically high 40-60 [facility] Comment on above: Performed By: #### C RP, CMP, TSH, LIPID ####[facility] [address] [place] [id number]. Zafar Branham Cholesterol in LDL [Mass/Vol] 139.4 mg/dL Normal [facility] Comment on above: Performed By: #### C RP, CMP, TSH, LIPID ####[facility] [address] [place] [phone]. Zafar Branham Cholesterol.total/ Cholesterol in HDL [Mass ratio] 3.2 {ratio} Normal [facility] Comment on above: Performed By: #### C RP, CMP, TSH, LIPID ####[facility] [address] [place] [id number]. Zafar Branham HDL NORMAL > or = 60 mg/dl - LO W CARDIOVASCULAR RISK <40 mg/dl - HIGH CARDIOVASCULAR RISK Normal [facility] Comment on above: Performed By: #### C RP, CMP, TSH, LIPID ####[facility] [address] [place] [phone]. Zafar Branham LDL CALC NORMAL SEE BELOW Normal [facility] Comment on above: Result Comment: <100 mg/dl OPTIMAL 100 - 129 mg/dl NEAR OR ABOVE OPTIMAL 130 - 159 mg/dl BORDERLINE HIGH 160 - 189 mg/dl HIGH >190 mg/dl VERY HIGH Performed By: #### C RP, CMP, TSH, LIPID ####[facility] [address] [place], [place] [address]Dr. Zafar Branham Triglyceride [Mass/Vol] 98 mg/dL Normal <=150 [facility] Comment on above: Performed By: #### C RP, CMP, TSH, LIPID ####[facility] [address] [place], [place] [address]OkBryant Branham VLDL CALC 19.6 mg/dL Normal [facility] Comment on above: Performed By: #### C RP, CMP, TSH, LIPID ####[facility] [address] [place] [id number] Branham URon 02-09-2023 , QUAL Negative Normal NEGATIVE [facility] Comment on above: Performed By: #### U AMIC, PREGU #### [facility] [address] [place] [address] [address] Zafar Branham PROF 14(COMP METB)on 023 Albumin [Mass/Vol] 4.0 g/dL Normal 3.4-5.0 [facility] Comment on above: Performed By: #### C RP, CMP, TSH, LIPID #### [facility] [address] [place] [address] [address] Zafar Branham Albumin/Globulin [Mass ratio] 0.9 {ratio} Normal [facility] Comment on above: Performed By: #### C RP, CMP, TSH, LIPID #### [facility] [address] [place] [address] [address] Zafar Branham ALP [Catalytic activity/Vol] 94 U/L Normal 46-116 [facility] Comment on above: Performed By: #### C RP, CMP, TSH, LIPID #### [facility] [address] [place] [address] [address] Zafar Branham ALT [Catalytic activity/Vol] 30 U/L Normal 14-59 [facility] Comment on above: Performed By: #### C RP, CMP, TSH, LIPID #### [facility] [address] [place] [address] [address] Zafar Branhma Anion gap [Moles/Vol] 13.6 mmol/L Normal [facility] Comment on above: Performed By: #### C RP, CMP, TSH, LIPID #### [facility] [address] [place] [address] [address] Zafar Branham AST [Catalytic activity/Vol] 23 U/L Normal 15-37 [facility] [facility] Comment on above: Performed By: #### C RP, CMP, TSH, LIPID #### [facility] [address] [address] [address] Zafar Branham Bilirubin [Mass/Vol] 0.3 mg/dL Normal 0.2-1.0 [facility] Comment on above: Performed By: #### C RP, CMP, TSH, LIPID #### [facility] [address] [address] [address] Zafar Branham Calcium [Mass/Vol] 9.7 mg/dL Normal 8.5-10.1 [facility] Comment on above: Performed By: #### C RP, CMP, TSH, LIPID #### [facility] [address] [address] [address] Zafar Branham Chloride [Moles/Vol] 100 mmol/L Normal 98-107 [facility] Comment on above: Performed By: #### C RP, CMP, TSH, LIPID #### [facility] [address] [address] [address] Zafar Branham CO2 [Moles/Vol] 26.6 mmol/L Normal 21.0-32.0 [facility] Comment on above: Performed By: #### C RP, CMP, TSH, LIPID #### [facility] [address] [address] [address] Zafar Branham Creatinine [Mass/Vol] 1.00 mg/dL Normal 0.55-1.02 [facility] Comment on above: Performed By: #### C RP, CMP, TSH, LIPID #### [facility] [address] [address] [address] Zafar Branham EGFR-AF LAO >60 Normal >=60 The [facility] Comment on above: Performed By: #### C RP, CMP, TSH, LIPID #### [facility] [address] [address] [address] Zafar Branham EGFR-NON AF LAO >60 Normal >=60 [facility] Comment on above: Performed By: #### C RP, CMP, TSH, LIPID #### [facility] [address] [address] [address] Zafar Branham Globulin (S) [Mass/Vol] 4.5 g/dL Normal [facility] Comment on above: Performed By: #### C RP, CMP, TSH, LIPID #### [facility] [address] [place] [address] Dr. Zafar Branham Glucose [Mass/Vol] 93 mg/dL Normal 74-106 [facility] Comment on above: Performed By: #### C RP, CMP, TSH, LIPID #### [facility] [address] [place] [address] Dr. Zafar Branham Potassium [Moles/Vol] 4.2 mmol/L Normal 3.5-5.1 [facility] Comment on above: Performed By: #### C RP, CMP, TSH, LIPID #### [facility] [address] [place] [address] Dr. Zafar Branham Protein [Mass/Vol] 8.5 g/dL Critically high 6.4-8.2 [facility] Comment on above: Performed By: #### C RP, CMP, TSH, LIPID #### [facility] [address] [place] [address] Dr. Zafar Branham Sodium [Moles/Vol] 136 mmol/L Normal 136-145 The [facility] Comment on above: Performed By: #### C RP, CMP, TSH, LIPID #### [facility] [address] [place] [address] Dr. Zafar Branham Urea nitrogen [Mass/Vol] 10.0 mg/dL Normal 7.0-18.0 [facility] Comment on above: Performed By: #### C RP, CMP, TSH, LIPID #### [facility] [address] [address] [address] Zafar Branham Urea nitrogen/Creatinin e [Mass ratio] 10.0 mg/mg Normal The [facility] Comment on above: Performed By: #### C RP, CMP, TSH, LIPID #### [facility] [address] [address] [address] Zafar Branham [facility] 49 mm/hr Critically high <=[address] [facility] Comment on above: Performed By: #### S EDR ####[facility] [address] [address]. Zafar Branham TSHon 02-09-2023 TSH 0.590 uIU/mL Normal 0.358-3.740 [facility] Comment on above: Performed By: #### C RP, CMP, TSH, LIPID #### [facility] [address] [address] [address] Zafar Branham UA RANDOM W/MICROSCOPICon BACTERIA NONE SEEN Normal NONE SEEN [facility] Comment on above: Performed By: #### U AMIC, PREGU #### [facility] [address] [address] [address] Zafar Branham Bilirubin Ql (U) Negative Normal NEGATIVE [facility] Comment on above: Performed By: #### U AMIC, PREGU #### [facility] [address] [address] [address] Zafar Branham CAST NONE SEEN Normal NONE SEEN [facility] Comment on above: Performed By: #### U AMIC, PREGU #### [facility] [address] [address] [address] Zafar Branham Clarity (U) CLEAR Normal CLEAR The [facility] Comment on above: Performed By: #### U AMIC, PREGU #### [facility] [address] [address] [address] Zafar Branham Color (U) LT. YELLOW Normal YELLOW The [facility] Comment on above: Performed By: #### U AMIC, PREGU #### [facility] [address] [address] [address] Zafar Branham Crystals LM Nom (Urine sed) NONE SEEN Normal NONE SEEN The [facility] Comment on above: Performed By: #### U AMIC, PREGU #### [facility] [address] [address] [address] Zafar Branham Epithelial cells LM Ql (Urine sed) FEW Abnormal NONE SEEN /RARE The [facility] Comment on above: Performed By: #### U AMIC, PREGU #### [facility] [address] [address] [address] Zafar Branham Glucose Ql (U) Negative Normal NEGATIVE The [facility] Comment on above: Performed By: #### U AMIC, PREGU #### [facility] [address] [address] [address] Zafar Branham Hemoglobin Ql (U) SMALL Abnormal NEGATIVE [facility] Comment on above: Performed By: #### U AMIC, PREGU #### [facility] [address] [place] [address] Dr. Zafar Branham Ketones Ql (U) Negative Normal NEGATIVE The [facility] Comment on above: Performed By: #### U AMIC, PREGU #### [facility] [address] [address] [address] Zafar Branham LEUKOCYTES Negative Normal NEGATIVE The [facility] Comment on above: Performed By: #### U AMIC, PREGU #### [facility] [address] [address] [address] Zafar Branham MUCOUS NONE SEEN Normal NONE SEEN The [facility] Comment on above: Performed By: #### U AMIC, PREGU #### [facility] [address] [address] [address] Zafar Branham Nitrite Ql (U) Negative Normal NEGATIVE The [facility] Comment on above: Performed By: #### U AMIC, PREGU #### [facility] [address] [place] [address] Dr. Zafar Branham pH (U) 6.0 [pH] Normal 5-9 [facility] Comment on above: Performed By: #### U AMIC, PREGU #### [facility] [address] [address] [address] Zafar Branham RBC 0-2 Normal 0-2 [facility] Comment on above: Performed By: #### U AMIC, PREGU #### [facility] [address] [address] [address] Zafar Branham SPEC GRAVITY <=1.005 Abnormal 1.005-<=1.[address] [facility] Comment on above: Performed By: #### U AMIC, PREGU #### [facility] [address] [address] [address] Zafar Branham UA PROTEIN Negative Normal NEGATIVE/ TRACE The [facility] Comment on above: Performed By: #### U AMIC, PREGU #### [facility] [address] [address] [address] Zafar Branham Urobilinogen Qn (U) 0.2 {Ramy'U}/dL Normal 0.2 - 1.0 [facility] Comment on above: Performed By: #### U AMIC, PREGU #### [facility] [address] [address] [address] Zafar Branham WBC NONE SEEN Normal NONE SEEN The [facility] Comment on above: Performed By: #### U AMIC, PREGU #### [facility] [address] [address] [address] Zafar Branham XR knee RT 4V*on 02-07-2023 XR knee RT 4V* [facility] [employer] Other XR knee RT 4V* [facility] [employer] Other XR knee RT 4V* [address] [place] [address] [employer] Other XR knee RT 4V* [place] [id number] No rt [employer] Other XR knee RT 4V* XRay Report [employer] Other XR knee RT 4V* Signed [employer] Other XR knee RT 4V* Patient: Vy Mckeon MR#: [id number] [employer] Other XR knee RT 4V* 5 [employer] Other XR knee RT 4V* : 1990 Acct:[id number] [employer] Other XR knee RT 4V* Age/Sex: 32 / F ADM Date: 02/07/23 [employer] Other XR knee RT 4V* Loc: XDUCLY Room: pe: REG CLI [employer] Other XR knee RT 4V* Attending Dr: Shayla DENNEY [employer] Other XR knee RT 4V* Copies to: JUMANA Christianson [employer] Other XR knee RT 4V* Ordering Provider: JUMANA Christianson [employer] Other XR knee RT 4V* Date of Service: 02/07/23 [employer] Other XR knee RT 4V* XR/XR knee RT 4V*: RIGHT KNEE PAIN [employer] Other XR knee RT 4V* RIGHT KNEE - 4 views [employer] Other XR knee RT 4V* COMPARISON: None [employer] Other XR knee RT 4V* CLINICAL DATA: Lolita nt fell last night and landed on right anterior knee. Pain, swelling and [employer] Other XR knee RT 4V* abrasions. [employer] Other XR knee RT 4V* AP, lateral and both oblique views were obtained. There is no fracture or dislocation. There is no [employer] Other XR knee RT 4V* significant knee effusion or focal soft tissue swelling. [employer] Other XR knee RT 4V* XR/XR knee RT 4V* [employer] Other XR knee RT 4V* IMPRESSION: [employer] Other XR knee RT 4V* NO ACUTE BONY INJURY. [employer] Other XR knee RT 4V* Impression dictated by: Rama Garsia M.D.02/07/2023 10:01 AM [employer] Other XR knee RT 4V* Dictation Location: [facility]-- [employer] Other XR knee RT 4V* Transcribed By: MILKA 02/07/23 1001 [employer] Other XR knee RT 4V* Dictated By: Rama Garsia MD 02/07/23 1000 [employer] Other XR knee RT 4V* Signed By: [employer] Other XR knee RT 4V* 02/07/23 1001 [employer] Other XR knee RT 4V* [facility] [place] [address] [place] [address] XRay Report Signed Patient: Vy Mckeon MR#: [id number] 5 : 1990 Acct:[id number] Age/Sex: 32 / F ADM Date: 02/07/23 Loc: XDUC Room: Type: [facility] Attending Dr: Shayla DENNEY Copies to: [...] Rama Garsia M.D.02/07/2023 10:01 AM Dictation Location: [address] [place] [address] Transcribed By: [facility] 02/07/23 1001 Dictated By: Rama Garsia MD 02/07/23 1000 Signed By: 02/07/23 1001 [place] XR HIPS KARELY 5V W PELVISon XR [...] Date: 2022-12-17 13:04 Normal The [facility] PREG QUANT HCGon 07-04-2022 HCG QUANT 1 mIU/mL Normal The [facility] Comment on above: Performed By: #### P REGQNT #### [facility] [address] [place] [address] Dr. Zafar Branham HCG RANGE SEE BELOW Normal The [facility] Comment on above: Result Comment: 5-50 0.2-1 WEEK 50-500 1-2 WEEKS 100-5,000 2-3 WEEKS 500-10,000 3-4 WEEKS 1,000-50,000 4-5 WEEKS 10,000-100,000 5-6 WEEKS 15,000-200,000 6-8 WEEKS 10,000-100,000 2-3 MONTHS Performed By: #### P REGQNT #### [facility] [address] [place] [address] Dr. Zafar Branham PREG QUANT HCGon 06-08-2022 HCG QUANT 16 mIU/mL Normal [facility] Comment on above: Performed By: #### P REGQNT ####[facility] [address] [place], [place] [address]HtDr. Zafar Branham HCG RANGE SEE BELOW Normal The [facility] Comment on above: Result Comment: 5-50 0.2-1 WEEK 50-500 1-2 WEEKS 100-5,000 2-3 WEEKS 500-10,000 3-4 WEEKS 1,000-50,000 4-5 WEEKS 10,000-100,000 5-6 WEEKS 15,000-200,000 6-8 WEEKS 10,000-100,000 2-3 MONTHS Performed By: #### P REGQNT ####[facility] [address] [place], [place] [address]VtDr. Zafar Branham CBC AUTO DIFFon 05-23-2022 BASO # 0.0 103/ul Normal 0.0-0.1 [facility] Comment on above: Performed By: #### C BC #### [facility] [address] [address] [address] Zafar Branham Basophils/100 WBC (Bld) 0.6 % Normal 0.2-2.0 [facility] Comment on above: Performed By: #### C BC #### [facility] [address] [address] [address] Zafar Branham EO # 0.3 103/ul Normal 0.0-0.7 [facility] Comment on above: Performed By: #### C BC #### [facility] [address] [address] [address] Zafar Branham Eosinophils/100 WBC (Bld) 6.5 % Normal 0.9-7.0 [facility] Comment on above: Performed By: #### C BC #### [facility] [address] [address] [address] Zafar Branham Erythrocyte distribution width (RBC) [Ratio] 12.5 % Normal 11.0-15.0 [facility] Comment on above: Performed By: #### C BC #### [facility] [address] [address] [address] Zafar Branham Hematocrit (Bld) [Volume fraction] 37.2 % Normal 36.0-48.0 [facility] Comment on above: Performed By: #### C BC #### [facility] [address] [place] [address] Dr. Zafar Branham Hemoglobin (Bld) [Mass/Vol] 12.1 g/dL Normal 12.0-16.0 [facility] Comment on above: Performed By: #### C BC #### [facility] [address] [place] [address] Dr. Zafar Branham IG # 0.01 10e3/ul Normal 0.00-0.03 [facility] Comment on above: Performed By: #### C BC #### [facility] [address] [place] [address] Dr. Zafar Branham IG % 0.2 % Normal 0.0-0.5 [facility] Comment on above: Performed By: #### C BC #### [facility] [address] [place] [address] Dr. Zafar Branham LYMPH # 1.5 103/ul Normal 1.2-3.8 [facility] Comment on above: Performed By: #### C BC #### [facility] [address] [place] [address] Dr. Zafar Branham Lymphocytes/100 WBC (Bld) 29.8 % Normal 20.5-60.0 [facility] Comment on above: Performed By: #### C BC #### [facility] [address] [place] [address] Dr. Zafar Branham MANUAL DIFF REQ NO Normal [facility] Comment on above: Performed By: #### C BC #### [facility] [address] [place] [address] Dr. Zafar Branham MCH (RBC) [Entitic mass] 29.1 pg Normal 26.7-34.0 [facility] Comment on above: Performed By: #### C BC #### [facility] [address] [place] [address] Dr. Zafar Branham MCHC (RBC) [Mass/Vol] 32.5 g/dL Normal 29.9-35.2 [facility] Comment on above: Performed By: #### C BC #### [facility] [id number] Zafar Branham MCV (RBC) [Entitic vol] 89.4 fL Normal 81.0-99.0 [facility] Comment on above: Performed By: #### C BC #### [facility] [address] [address] [address] Zafar Branham MONO # 0.4 103/ul Normal 0.3-0.8 [facility] Comment on above: Performed By: #### C BC #### [facility] [address] [address] [address] Zafar Branham Monocytes/100 WBC (Bld) 7.9 % Normal 1.7-12.0 [facility] Comment on above: Performed By: #### C BC #### [facility] [address] [place] [address] Dr. Zafar Branham NEUT # 2.7 103/ul Normal 1.4-6.5 [facility] Comment on above: Performed By: #### C BC #### [facility] [address] [place] [address] Dr. Zafar Branham Neutrophils/100 WBC (Bld) 55.0 % Normal 43.0-75.0 [facility] Comment on above: Performed By: #### C BC #### [facility] [address] [place] [address] Dr. Zafar Branham Platelet mean volume (Bld) [Entitic vol] 10.0 fL Normal 9.5-13.5 [facility] Comment on above: Performed By: #### C BC #### [facility] [address] [place] [address] Dr. Zafar Branham PLT 229 103/ul Normal 150-450 [facility] Comment on above: Performed By: #### C BC #### [facility] [address] [place] [address] Dr. Zafar Branham RBC 4.16 106/ul Critically low 4.20-5.[address] [facility] Comment on above: Performed By: #### C BC #### [facility] [address] [address] [address] Zafar Branham WBC 5.0 103/ul Normal 4.0-11.0 [facility] Comment on above: Performed By: #### C BC #### [facility] [address] [place], [place] [address] Dr. Zafar Branham TYPE AND SCREENon 05-23-2022 TYPE AND SCREEN Negative Normal The [facility] Comment on above: Performed By: #### T NS ####[facility] [address] [place], [place] [address]MqDr. Zafar Branham Covid-19 PCR (CVDTBH)on 05-01 SARS-CoV-2 (COVID-19) RNA MANOLO+probe Ql (Unsp spec) Not detected Normal NOT DETECTED [facility] Comment on above: Result Comment: This test is not yet approved or cleared by the [place] FDA. When there are no FDA-approved or cleared tests available, and other criteria are met, FDA can make tests available under an emergency access mechanism called an Emergency Use Authorization (EUA). The EUA for this test is supported by the [employer] Tester of Health and Human Service's (HHS's) declaration [...] By: #### C VDTBH #### [facility] [address] [place], [place] [address] Dr. Zafar Branham US PREG TVon 05-18-2022 [...] BOBBI SIMONS Date: 2022-05-18 19:25 Normal The [facility] US PREG TVon 05-03-2022 [...] by: BOBBI SIMONS Date: 2022-05-03 16:32 Normal [facility] Chlamydia/GC DNA, TPon 05-05 Chlamydia Probe, TP Negative Normal NEG [facility] Comment on above: Result Comment: CHLA [...] nucleic acid target. Performed By: #### [facility] #### [address] [id number] Adjunct Latin Professor: King Boone MD Gonorrhea Probe, TP Negative Normal NEG [facility] Comment on above: Result Comment: NEIS [...] target. Performed By: #### C YTC #### [address] [id number] Adjunct Latin Professor: King Boone MD HPV DNA High Riskon 05-05-20 20 HPV Interp Normal [facility] Comment on above: Result Comment: This [...] Performed By: #### H [facility] #### [address] [id number] Adjunct Latin Professor: King Boone MD HPV Type 16 Not Detected Normal [facility] Comment on above: Performed By: #### H PVH #### [address] [id number] Adjunct Latin Professor: King Boone MD HPV Type 18 Not Detected [facility] Comment on above: Performed By: #### H PVH #### [address] [address] Adjunct Latin Professor: King Boone MD Other High Risk HPV Not Detected [facility] Comment on above: Performed By: #### H PV[facility] #### [address] [place] [address] Adjunct Latin Professor: King Boone MD HPV Sample .THIN PREP Normal [facility] Comment on above: Performed By: #### H PVH #### [facility] [place] [address] [place] [id number] Adjunct Latin Professor: King Boone MD Source .ENDOCERVIX Normal [facility] Comment on above: Performed By: #### H PV[facility] #### [address] [address] Adjunct Latin Professor: King Boone MD Otheron 05-04-2020 Direct Exam Negative [place] VAGINITIS DNA PROBEon 2019 Direct Exam Positive Abnormal [place] Direct Exam Method of testing is a DNA probe intended for detection and identification of Diane species, Gardnerella vaginalis, and Trichomonas vaginalis nucleic acid in vaginal fluid specimens from patients with symptoms of vaginitis/vaginosis. [place] Interpretation and review of laboratory results Abnormal [place] Special Requests NOT REPORTED [place] Specimen Description .VAGINAL SWAB [place] Vaginitis DNA Probeon 2019 Vaginitis DNA [...] symptoms of vaginitis/vaginosis. Report Status FINAL 05/04/2020 [facility] Comment on above: Performed By: #### V AGDNA #### [address] [id number] Adjunct Latin Professor: King Boone MD Cytologyon 05-03-2020 Cytology (NOTE) INTERPRETATION Endocervical material, (Thin prep vial, Imaging-assisted review): Specimen Adequacy: Satisfactory for evaluation. - Endocervical/transforma tion zone component present. Descriptive Diagnosis: Negative for intraepithelial lesion or malignancy. Shift in ray suggestive of bacterial vaginosis. Comments: High Risk HPV testing was ordered. Beading Installer: JAYLIN Higgins(ASCP) Electronically Signed Out ana/05/07/2020 Procedure/Addendum [...] GYNECOLOGIC CYTOLOGY REPORT Patient Name: VY MCKEON [facility] Rec: [id number] Path Number: [id number] [employer] [facility] ANATOMIC PATHOLOGY [address] [place] [address]. [place], [place] [address] [facility] Comment on above: Performed By: #### P PPVP #### [employer] | [employer] [address] [place] [id number] Adjunct Latin Professor: King Boone MD Vital Signs Date Time Vital Sign [facility] 01-21-2024 11:59-0400 Body height 170.2 cm Ana Peoples MD Work Phone: [facility] 01-21-2024 11:59-0400 Body mass index (BMI) [Ratio] 30.07 kg/m2 Ana Peoples MD Work Phone: [facility] 01-21-2024 11:59-0400 Body weight 87.1 kg Ana Peoples MD Work Phone: [facility] 01-21-2024 11:59-0400 Diastolic blood pressure 75 mm[Hg] Ana Peoples MD Work Phone: [facility] 01-21-2024 11:59-0400 Heart rate 108 /min Ana Peoples MD Work Phone: [facility] 01-21-2024 11:59-0400 Systolic blood pressure 125 mm[Hg] Ana Peoples MD Work Phone: [facility] 01-21-2024 11:02-0400 Body height 170.2 cm Ana Peoples MD Work Phone: [facility] 01-21-2024 11:02-0400 Body mass index (BMI) [Ratio] 30.07 kg/m2 Ana Peoples MD Work Phone: [facility] 01-21-2024 11:02-0400 Body weight 87.09 kg Ana Peoples MD Work Phone: [facility] 01-04-2024 14:31-0400 Body temperature 97.11 [degF] Fransico Sharp MD Work Phone: [facility] 01-04-2024 14:31-0400 Diastolic blood pressure 83 mm[Hg] Fransico Sharp MD Work Phone: [facility] 01-04-2024 14:31-0400 Heart rate 94 /min Fransico Sharp MD Work Phone: [facility] 01-04-2024 14:31-0400 Respiratory rate 20 /min Fransico Sharp MD Work Phone: [facility] 01-04-2024 14:31-0400 SaO2% (BldA) [Mass fraction] 99 % Fransico Sharp MD Work Phone: [facility] 01-04-2024 14:31-0400 Systolic blood pressure 148 mm[Hg] Fransico Sharp MD Work Phone: [facility] 12-17-2023 13:42-0400 Body height 170.2 cm Freddie Delgado SHANK P[employer]ER[employer]PRESCHO[employer] DIRECTOR Work Phone: [facility] 12-17-2023 13:42-0400 Body mass index (BMI) [Ratio] 29.47 kg/m2 Freddie Ordoñezjas SHANK PAPERER-PRESCHOOL DIRECTOR Work Phone: [facility] 12-17-2023 13:42-0400 Body temperature 98.71 [degF] Freddie Delgado [employer]ANK P[employer]ER[employer]PRESCHO[employer] DIRECTOR Work Phone: [facility] 12-17-2023 13:42-0400 Body weight 85.37 kg Freddie Delgado [employer]ANK P[employer]ER-PRESCHOOL DIRECTOR Work Phone: [facility] 12-17-2023 13:42-0400 Diastolic blood pressure 80 mm[Hg] Freddie Delgado SHANK P[employer]ER[employer]PRESCHOOL DIRECTOR Work Phone: [facility] 12-17-2023 13:42-0400 Heart rate 86 /min Freddie Delgado SHANK P[employer]ERER-PRESCHOOL DIRECTOR Work Phone: [facility] 12-17-2023 13:42-0400 SaO2% (BldA) [Mass fraction] 96 % Freddie Delgado SHANK PAPERER-PRESCHOOL DIRECTOR Work Phone: [facility] 03-18-2024 13:42-0400 Systolic blood pressure 128 mm[Hg] Freddie Delgado SHANK PAPERER-PRESCHOOL DIRECTOR Work Phone: [facility] 11-12-2023 13:13-0500 Body mass index (BMI) [Ratio] 28.47 kg/m2 Dionne Dameon PA Work Phone: [facility] 11-12-2023 13:13-0500 Body weight 82.46 kg Dionne Dameon PA Work Phone: [facility] 11-12-2023 13:13-0500 Diastolic blood pressure 72 mm[Hg] Dionne Manderson PA Work Phone: [facility] 11-12-2023 13:13-0500 Systolic blood pressure 114 mm[Hg] Dionne Manderson PA Work Phone: [facility] 05-29-2023 13:25-0400 Body height 170.18 cm Shayla Valle Other [employer] Other 05-29-2023 13:25-0400 Body mass index (BMI) [Ratio] 28.22 kg/m2 Shayla Valle Other [employer] Other 05-29-2023 13:25-0400 Body temperature 97.8 [degF] Shayla Valle Other [employer] Other 05-29-2023 13:25-0400 Body weight 81.74 kg Shayla Valle Other [employer] Other 05-29-2023 13:25-0400 Diastolic blood pressure 79 mm[Hg] Shayla Valle Other [employer] Other 05-29-2023 13:25-0400 Respiratory rate 18 /min Shayla Valle Other [employer] Other 05-29-2023 13:25-0400 SaO2% (BldA) [Mass fraction] 96 % Shayla Tori Other [employer] [facility] [employer] Other 05-29-2023 13:25-0400 Systolic blood pressure 127 mm[Hg] Shayla Tori Other [employer] Other 03-19-2023 14:37-0400 Diastolic blood pressure 69 mm[Hg] SEATING [employer] Shayla Tori Work Phone: [facility] 03-19-2023 14:37-0400 Heart rate 76 /min [employer] Shayla Tori Work Phone: [facility] 03-19-2023 14:37-0400 Respiratory rate 16 /min [employer] Shayla Tori Work Phone: [facility] 03-19-2023 14:37-0400 SaO2% (BldA) [Mass fraction] 96 % [employer] Shayla Tori Work Phone: [facility] 03-19-2023 14:37-0400 Systolic blood pressure 119 mm[Hg] [employer]ATING [employer] Shayla Tori Work Phone: [facility] 03-19-2023 12:18-0400 Body height 170.18 cm [employer]ATING [employer] Shayla Tori Work Phone: [facility] 03-19-2023 12:18-0400 Body temperature 97.9 [degF] [employer]ATING [employer] Shayla Tori Work Phone: [facility] 03-19-2023 12:18-0400 Body weight 84.82 kg [employer] Shayla Tori Work Phone: [facility] 02-12-2023 14:30-0400 Body height 170.18 cm Yoel Jarrett Other [facility] [employer] Other 02-12-2023 14:30-0400 Body mass index (BMI) [Ratio] 30.54 kg/m2 Yoel Scovanner Other [employer] Other 02-12-2023 14:30-0400 Body weight 88.45 kg Yoel Scovanner Other [employer] Other 02-12-2023 14:30-0400 Diastolic blood pressure 80 mm[Hg] Yoel Scovanner Other [employer] Other 02-12-2023 14:30-0400 Systolic blood pressure 127 mm[Hg] Yoel Scovanner Other [employer] Other 02-07-2023 10:00-0400 Body height 170.18 cm Shayla Tori Other [employer] Other 02-07-2023 10:00-0400 Body mass index (BMI) [Ratio] 30.54 kg/m2 Shayla Tori Other [employer] Other 02-07-2023 10:00-0400 Body temperature 97.9 [degF] Shayla Caseymond Other [employer] Other 02-07-2023 10:00-0400 Body weight 88.45 kg Shayla Caseymond Other [employer] Other 02-07-2023 10:00-0400 Respiratory rate 18 /min Shayla Tori Other [employer] Other 02-07-2023 10:00-0400 SaO2% (BldA) [Mass fraction] 97 % Shayla Tori Other [employer] Other 05-03-2020 11:41-0400 BMI (Body Mass Index) 24.5 kg/m2 [facility] Work Phone: 05-03-2020 11:41-0400 Body Temperature 96.3 [degF] [facility] Work Phone: 05-03-2020 11:41-0400 Body weight 70.9 kg [facility] Work Phone: 05-03-2020 11:41-0400 BP Diastolic 80 mm[Hg] [facility] Work Phone: 05-03-2020 11:41-0400 BP Systolic 120 mm[Hg] [facility] Work Phone: 05-03-2020 11:41-0400 BSA (Body Surface Area) 1.82 m2 [facility] Work Phone: 05-03-2020 11:41-0400 Height 170.18 cm [facility] Work Phone: 05-03-2020 11:41-0400 Pulse (Heart Rate) 86 /min [facility] Work Phone: 05-03-2020 11:41-0400 Pulse Oximetry 93 % [facility] Work Phone: 05-03-2020 11:41-0400 Respiratory Rate 18 /min [facility] Work Phone: 04-08-2020 08:37-0400 BMI (Body Mass Index) 24.3 kg/m2 [facility] Work Phone: 04-08-2020 08:37-0400 Body Temperature 99 [degF] [facility] Work Phone: 04-08-2020 08:37-0400 Body weight 70.4 kg Sally [facility] Work Phone: 04-08-2020 08:37-0400 BP Diastolic 80 mm[Hg] [facility] Work Phone: 04-08-2020 08:37-0400 BP Systolic 110 mm[Hg] [facility] Work Phone: 04-08-2020 08:37-0400 BSA (Body Surface Area) 1.82 m2 [facility] Work Phone: 04-08-2020 08:37-0400 Height 170.18 cm [facility] Work Phone: 04-08-2020 08:37-0400 Pulse (Heart Rate) 82 /min [facility] Work Phone: 04-08-2020 08:37-0400 Pulse Oximetry 98 % [facility] Work Phone: 04-08-2020 08:37-0400 Respiratory Rate 18 /min [facility] Work Phone: 03-29-2020 09:52-0400 Body height 170.18 cm Sally [facility] Work Phone: [facility] Work Phone: Comment on above: self 03-29-2020 09:52-0400 Body mass index (BMI) [Ratio] 23.5 kg/m2 Sally Morejon [facility] Work Phone: [facility] Work Phone: Comment on above: self 03-29-2020 09:52-0400 Body surface area Derived from formula 1.79 m2 Sally Morejon [facility] Work Phone: [facility] Work Phone: Comment on above: self 03-29-2020 09:52-0400 Body weight 68.04 kg Sally Morejon [employer]CHO[employer] DIRECT[employer] Work Phone: [facility] Work Phone: Comment on above: self 10-14-2019 08:30-0500 BMI (Body Mass Index) 24.1 kg/m2 [facility] Work Phone: 10-14-2019 08:30-0500 Body Temperature 98.5 [degF] [facility] Work Phone: 10-14-2019 08:30-0500 Body weight 69.76 kg [facility] Work Phone: 10-14-2019 08:30-0500 BP Diastolic 78 mm[Hg] [facility] Work Phone: 10-14-2019 08:30-0500 BP Systolic 132 mm[Hg] [facility] Work Phone: 10-14-2019 08:30-0500 BSA (Body Surface Area) 1.81 m2 [facility] Work Phone: 10-14-2019 08:30-0500 Height 170.18 cm [facility] Work Phone: 10-14-2019 08:30-0500 Pulse (Heart Rate) 88 /min [facility] Work Phone: 10-14-2019 08:30-0500 Pulse Oximetry 98 % [facility] Work Phone: 10-14-2019 08:30-0500 Respiratory Rate 18 /min [facility] Work Phone: 10-14-2019 08:30-0500 SaO2% (BldA) [Mass fraction] 98 % [facility] Work Phone: [facility] Work Phone: 09-04-2019 13:52-0500 BMI (Body Mass Index) 22.9 kg/m2 [facility] Work Phone: 09-04-2019 13:52-0500 Body Temperature 98.5 [degF] Sally [facility] Work Phone: 09-04-2019 13:52-0500 Body weight 66.23 kg [facility] Work Phone: 09-04-2019 13:52-0500 BP Diastolic 90 mm[Hg] [facility] Work Phone: 09-04-2019 13:52-0500 BP Systolic 122 mm[Hg] [facility] Work Phone: 09-04-2019 13:52-0500 BSA (Body Surface Area) 1.77 m2 [facility] Work Phone: 09-04-2019 13:52-0500 Height 170.18 cm [facility] Work Phone: 09-04-2019 13:52-0500 Pulse (Heart Rate) 98 /min [facility] Work Phone: 09-04-2019 13:52-0500 Pulse Oximetry 98 % [facility] Work Phone: 09-04-2019 13:52-0500 Respiratory Rate 18 /min [facility] Work Phone: 09-04-2019 13:52-0500 SaO2% (BldA) [Mass fraction] 98 % [facility] Work Phone: [facility] Work Phone: 08-19-2019 09:32-0500 BMI (Body Mass Index) 23.2 kg/m2 [facility] Work Phone: 08-19-2019 09:32-0500 Body Temperature 98 [degF] [facility] Work Phone: 08-19-2019 09:32-0500 Body weight 67.31 kg Sally [facility] Work Phone: 08-19-2019 09:32-0500 BP Diastolic 80 mm[Hg] [facility] Work Phone: 08-19-2019 09:32-0500 BP Systolic 120 mm[Hg] [facility] Work Phone: 08-19-2019 09:32-0500 BSA (Body Surface Area) 1.78 m2 Sally [facility] Work Phone: 08-19-2019 09:32-0500 Height 170.18 cm [facility] Work Phone: 08-19-2019 09:32-0500 Pulse (Heart Rate) 90 /min [facility] Work Phone: 08-19-2019 09:32-0500 Pulse Oximetry 98 % [facility] Work Phone: 08-19-2019 09:32-0500 Respiratory Rate 18 /min [facility] Work Phone: 08-19-2019 09:32-0500 SaO2% (BldA) [Mass fraction] 98 % Sally [facility] Work Phone: [facility] Work Phone: 07-28-2019 11:31-0400 BMI (Body Mass Index) 22.7 kg/m2 [facility] Work Phone: 07-28-2019 11:31-0400 Body Temperature 98.8 [degF] Sally [facility] Work Phone: 07-28-2019 11:31-0400 Body weight 65.77 kg [facility] Work Phone: 07-28-2019 11:31-0400 BP Diastolic 84 mm[Hg] [facility] Work Phone: 07-28-2019 11:31-0400 BP Systolic 132 mm[Hg] [facility] Work Phone: 07-28-2019 11:31-0400 BSA (Body Surface Area) 1.76 m2 [facility] Work Phone: 07-28-2019 11:31-0400 Height 170.18 cm [facility] Work Phone: 07-28-2019 11:31-0400 Pulse (Heart Rate) 65 /min [facility] Work Phone: 07-28-2019 11:31-0400 Pulse Oximetry 97 % [facility] Work Phone: 07-28-2019 11:31-0400 Respiratory Rate 18 /min [facility] Work Phone: 07-28-2019 11:31-0400 SaO2% (BldA) [Mass fraction] 97 % [facility] Work Phone: [facility] Work Phone: Encounters Encounter Date Encounter Type Care Provider Facility Start: 03-17-2024 End: 03-17-2024 ambulatory ELIAZAR NORMA Not Available Start: 03-11-2024 Telephone encounter Fransico kulkarni MD [...] ppointment Start: 02-27-2024 End: 02-27-2024 ambulatory ELIAZAR WEISSO Not Available Start: 02-26-2024 Telephone encounter Daisy Douglass Hematology/Oncology Comment on above: Results - Ct; Patien t Update Start: 02-22-2024 End: 02-22-2024 ambulatory USMAN ABHYERLIN Facility:[facility] Start: 02-20-2024 End: 02-20-2024 ambulatory USMAN ABHYANKAR Facility:[facility] Start: 02-13-2024 End: 02-15-2024 ambulatory [facility] Start: 02-11-2024 End: 02-11-2024 ambulatory ELIAZAR NORMA Not Available Start: 01-29-2024 End: 01-29-2024 ambulatory [facility] Start: 01-28-2024 End: 01-28-2024 ambulatory DIONNE BARNHART Not Available Start: 01-25-2024 Telephone encounter Fransico kulkarni MD Work Phone: Plastic Surgery Comment on above: Appointment Start: 01-25-2024 End: 01-26-2024 ambulatory FIDENCIO Garcia Pichardo [facility] pital Start: 01-23-2024 ambulatory Usman bianchi MD Work Phone: Hematology/Oncology Start: 01-23-2024 Patient encounter procedure Usman Goldberg MD Work Phone: Hematology/Oncology Comment on above: Lab Appointment Start: 01-22-2024 Telephone encounter Ana Peolpes MD Work Phone: Maternal Medicine Comment on [...] above: Appointment Start: 01-14-2024 End: 01-14-2024 ambulatory [facility] pital Start: 01-10-2024 Telephone encounter Historical Mat [...] procedure Fransico Sharp MD Work Phone: [facility] Start: 12-26-2023 End: 12-27-2023 ambulatory [facility] ADRIAN DELGADO Facility:[facility] Start: 12-21-2023 Chart abstracting Usman rincon MD Work Phone: Hematology/Oncology Start: 12-17-2023 End: 12-17-2023 ambulatory [facility] Start: 12-17-2023 End: 12-17-2023 Office outpatient visit 10 minutes Freddie Delgado [employer]ANK P[employer]ER-PRESCHO[employer] DIRECTOR Work Phone: [facility] Comment on above: Nausea and vomiting, unspecified vomiting type (Primary Dx); Psychophysiological insomnia Start: 12-10-2023 End: 12-10-2023 ambulatory ELIAZAR CASTANEDA Not Available Start: 12-07-2023 Documentation procedure Chris Antonio LCGC Work Phone: Maternal- Medicine at [facility] Comment on above: Outgoing Ca ll Start: 11-20-2023 End: 11-21-2023 Orders Only Roshni Rodriguez RN [facility] [place] Comment on above: Placenta previa ante in second trimester (Primary Dx); Multigravida of advanced maternal age in second trimester Start: 11-20-2023 End: 11-20-2023 Office outpatient visit 15 minutes Fidencio Rojas MD Work Phone: Maternal Medicine [place] Comment on above: 20 weeks gestation o f (Primary Dx); Placenta previa antepartum in second trimester; Advanced maternal age in multigravida, second trimester Start: 11-13-2023 Orders Only Juan Ramon Rodríguez CMA [facility] rnal- Medicine at [facility] Comment on above: Multigravida of adva nced maternal age in second trimester; Family history of autism; Family history of mental disorder Start: 11-12-2023 Documentation procedure Chris Antonio LCGC Work Phone: Maternal- Medicine at [facility] Comment on above: Outgoing Ca ll [...] Available Start: 10-29-2023 Documentation procedure Chris Antonio [facility] Work Phone: Maternal- Medicine at [facility] Comment on above: Incoming Ca ll Start: 10-23-2023 Orders Only Angela Megan [employer] Mat ernal- Medicine at [facility] Comment on above: Multigravida of adva nced maternal age in second trimester (Primary Dx); Family history of autism; Family history of mental disorder Start: 10-22-2023 End: 10-22-2023 ambulatory ELIAZAR R NORMA [facility] pital Start: 10-22-2023 End: 10-22-2023 Telemedicine consultation with patient Katarina Antonio [facility] Work Phone: Maternal- Medicine at [facility] Comment on above: Multigravida of adva nced maternal age in second trimester (Primary Dx); Family history of autism; Family history of mental disorder Start: 10-08-2023 End: 10-08-2023 ambulatory ELIAZAR NORMA Not Available Start: 08-30-2023 End: 08-30-2023 ambulatory ELIAZAR NORMA Not Available Start: 05-29-2023 End: 05-29-2023 ambulatory Shayla Valle Other [employer] Other Start: 05-29-2023 Office outpatient vi sit 15 minutes Shayla Valle [facility] Start: 03-19-2023 End: 03-19-2023 ambulatory NON STAFF Facility:[facility] Start: 03-19-2023 End: 03-19-2023 Admission to same day surgery center [employer] Shayla Valle Work Phone: [facility] Work Phone: Start: 03-19-2023 End: 03-19-2023 ambulatory NON STAFF [facility] Work Phone: Start: 02-12-2023 End: 02-12-2023 ambulatory Yoel Jarrett Other [facility] [employer] Other Start: 02-12-2023 Office outpatient ne w 30 minutes Yoel Jarrett [facility] Start: 02-09-2023 End: 02-10-2023 ambulatory PRADEEP COULTER Facility:[facility] Start: 02-07-2023 Office outpatient ne w 20 minutes Shayla Valle [facility] Start: 02-07-2023 End: 02-07-2023 ambulatory Shayla Tori [facility] [employer] Other Start: 02-07-2023 End: 02-07-2023 Patient encounter procedure SEATING UPHOL[employer]C Shayla Tori Work Phone: [facility] Work Phone: Start: 12-27-2022 ambulatory PRESCHOOL DIRECTOR VITO ROBERSONJUVENAL Facil ity:[facility] Start: 12-16-2022 End: 12-17-2022 ambulatory PRADEEP VITO COULTER Facility:[facility] Start: 07-04-2022 End: 07-05-[address] ELIAZAR CASTANEDA . Facility:[facility] Start: 06-08-2022 End: 07-01-[address] ELIAZAR CASTANEDA . Facility:[facility] Start: 05-23-2022 End: 05-23-[address] ELIAZAR CASTANEDA . Facility:[facility] Start: 05-22-2022 Encounter for preprocedural laboratory examination DR ELIAZAR CASTANEDA . [facility] Start: 05-19-2022 End: 05-20-[address] ELIAZAR CASTANEDA . Facility:[facility] Start: 05-19-2022 End: 05-20-2022 Encounter for preprocedural laboratory examination DR ELIAZAR CASTANEDA . Facility:[facility] Start: 05-18-2022 End: 05-19-[address] ELIAZAR CASTANEDA . Facility:[facility] Start: 05-03-2022 End: 05-04-[address] ELIAZAR CASTANEDA . Facility:[facility] Start: 05-03-2020 End: 05-03-2020 ambulatory Candace Grossman Work Phone: [facility] Work Phone: Start: 05-03-2020 End: 05-04-2020 Patient encounter procedure CANDACE GROSSMAN [facility] Start: 05-03-2020 End: 05-03-2020 Subsequent hospital visit by physician ARMANI FRY [facility] Start: 04-08-2020 End: 04-08-2020 ambulatory Linnea Escobar Work Phone: [facility] Work Phone: Start: 03-29-2020 End: 03-29-2020 General Emilee Sanford Work Phone: [facility] Work Phone: Start: 03-29-2020 End: 03-29-2020 Telemedicine consultation with patient Candace Grossman Work Phone: [facility] Work Phone: Start: 01-08-2020 End: 01-08-2020 Telemedicine consultation with patient Candace Grossman Work Phone: [facility] Work Phone: Start: 12-30-2019 End: 12-30-2019 Patient encounter procedure Emilee Sanford Work Phone: [facility] Work Phone: Start: 12-30-2019 End: 12-30-2019 Telemedicine consultation with patient Candace Grossman Work Phone: [facility] Work Phone: Start: 10-14-2019 End: 10-14-2019 Established patient Bobbi Colon Work Phone: [facility] Work Phone: Start: 09-04-2019 End: 09-04-2019 Established patient Bobbi Colon Work Phone: [facility] Work Phone: Start: 08-19-2019 End: 08-19-2019 Nursing evaluation of patient and report Candace Grossamn Work Phone: [facility] Work Phone: Start: 07-28-2019 End: 07-28-2019 Established patient Bobbi Colon Work Phone: [facility] Work Phone: Start: 07-28-2019 End: 07-28-2019 New patient Candace Grossman Work Phone: [facility] Work Phone: Start: 08-13-2017 End: 08-14-2017 Ambulatory Upender Gehlot [place] Procedures Date Procedure Procedure Detail Performing Clinician Start: 01-21-2024 Us preg uterus after 1st trimest 10/01 gestation Ana Peoples MD Work Phone: Start: 11-12-2023 Urnls dip stick/tabl et rgnt non-auto w/o micrscp Dionne BRAN Work Phone: Start: 11-12-2023 URETHRITIS/DISCHARGE PLUS VAGINITIS (HTRX) Dionne BRAN Work Phone: Start: 10-25-2023 UNLISTED LAB TEST Miriam Antonio [employer] Work Phone: Start: 09-10-2023 Adult depression scr eening assessment Katarina Antonio [employer] Work Phone: Start: 03-19-2023 Esophagogastroduodenoscopy [employer] Shayla Valle Work Phone: Start: 03-01-2023 Microscopic observat ion [Identifier] in Cervix by Cyto stain Dionne BRAN Work Phone: Start: 02-07-2023 X-ray of right knee SEATING [employer]- C Shayla Valle Work Phone: Start: 05-03-2020 Obtaining screen pap smear Candace Grossman Work Phone: Start: 05-03-2020 Iaad ia chlamydia trachomatis CANDACE GROSSMAN Start: 05-03-2020 Iadna diane specie s direct probe tq CANDACE GROSSMAN Start: 05-03-2020 Iadna diane specie s direct probe tq Candace Castellano [employer] Work Phone: Start: 05-03-2020 Microscopic observat ion [Identifier] in Cervix by Cyto stain Katarina Antonio [facility] Work Phone: Start: 04-08-2020 Diast bp [...] 03-29-2020 Psychotherapy w/howie ent 30 minutes Emilee aSnford Work Phone: Start: 01-08-2020 Patient gave verbal [...] Use Disorders Identification Test ___([id number]) Candace Grossman [employer]CHO[employer] DIRECT[employer] Work Phone: Start: 07-28-2019 ANXIETY DISORDER NOS [...] gaviota Jean-Pierre Start: 07-28-2019 Surgical procedure Chela alvaro Jean-Pierre Start: 07-28-2019 Syst bp ge 130 - 139mm hg Candace Grossman Work Phone: NEGATED: Highlighted row has not occurred!Start: 04-08-2020 currently nursing Sally Jean-Pierre NEGATED: Highlighted row has not occurred!Start: 07-28-2019 currently Sally Morejon Plan of Treatment Date Care Activity Detail Author Start: 2048 RSV Vaccine (1 - 1-d ose 60+ series) RSV Vaccine (1 - 1-dose 60+ series) [facility] Start: 01-02-2034 Urine microalbumin profile DTaP,Tdap,Td Vaccine (7 - Td or Tdap) [facility] Start: 03-12-2028 Screening for malign ant neoplasm of cervix HPV/[facility] Start: 03-01-2028 Screening for malign ant neoplasm of cervix [facility] Start: 01-25-2028 DTaP,Tdap and Td Vaccines (6 - Td or Tdap) DTaP,Tdap and Td Vaccines (6 - Td or Tdap) [facility] Start: 01-25-2028 Urine microalbumin profile DTaP,Tdap,Td Vaccine (2 - Td or Tdap) [facility] Start: 12-16-2024 Adult BMI Screening Adult BMI Screen ing [facility] Start: 12-16-2024 Tobacco Screening Tobacco Screening [facility] Start: 10-23-2024 End: 10-23-2024 Unlisted Lab Test Unlisted Lab Test Lab Routine Multigravida of advanced maternal age in second trimester Family history of autism Family history of mental disorder Expected: 10/23/2024 (Approximate), Expires: 10/23/2024 [facility] Work Phone: Comment on above: Expected: 10/23/2024 (Approximate), Expires: 10/23/2024 Start: 09-10-2024 Adult BMI Screening Adult BMI Screen ing [facility] Start: 09-10-2024 Depression Screening Depression Scre ening [facility] Start: 09-10-2024 Tobacco Screening Tobacco Screening [facility] Start: 03-17-2024 End: 03-17-2024 Admission to same day surgery center 03/17/2024 11:30 AM EDT Visit (SP) Office Plastic Surgery [address] [place] [address] aTna Cervantes, SHANK PAPERER.PRESCHOOL DIRECTOR [address] [place] [address] post op Plastic Surgery Comment on above: [...] 10:45 AM EDT Hospital Encounter Admitting [address] [place] [address] Fransico Sharp MD [address] [place], [place] [id number] Malignant melanoma of skin (HCC) [C43.9] Admitting Comment on above: Malignant melanoma o f skin (HCC) [C43.9] Start: 03-14-2024 End: 03-14-2024 Patient encounter procedure 03/14/2024 8:30 AM EDT Appointment Molecular Imaging [address] [place] [address] MELANOMA-NM LYMPH NODE IMAGING [facility] Comment on above: MELANOMA-NM LYMPH NO DE IMAGING Start: 03-07-2024 End: 03-07-2024 Anesthesia consultation 03/07/2024 1:20 PM EDT PAT Pre Anesthesia [address] [place] [address] 9, Pacc Main [address] [place] [address] pacc Pre Anesthesia Comment on above: pacc Start: 03-06-2024 End: 03-06-2024 Patient encounter procedure 03/06/2024 8:00 AM EDT [facility] Maternal Medicine [address] [address] [place] [address] [address] [place] [id number] Consult Maternal Medicine Comment on above: Consult Start: 02-22-2024 End: 02-22-2024 Patient encounter procedure 02/22/2024 10:45 AM EDT Appointment Radiology Pet CT [address] [address] ct chest and stn w Radiology Pet CT Comment on above: ct chest and stn w Start: 02-20-2024 End: 02-20-2024 ambulatory 02/20/2024 3:00 PM EDT Results Only [facility] [address] [address] [facility] Start: 02-20-2024 End: 01-22-2025 CBC W Auto Differential panel - Blood COMPLETE BLOOD COUNT AND DIFFERENTIAL Lab Routine Malignant melanoma of skin (HCC) Expected: 02/20/2024 (Approximate), Expires: 01/22/2025 [facility] Comment on above: Expected: 02/20/2024 (Approximate), Expires: 01/22/2025 Start: 02-20-2024 End: 01-22-2025 Comprehensive metabolic 2000 panel - Serum or Plasma COMPREHENSIVE METABOLIC PANEL Lab Routine Malignant melanoma of skin (HCC) Expected: 02/20/2024 (Approximate), Expires: 01/22/2025 [facility] Comment on above: Expected: 02/20/2024 (Approximate), Expires: 01/22/2025 Start: 02-20-2024 End: 02-21-2025 CT Chest W contrast IV CT CHEST W IVCON Radiology Routine Malignant melanoma of skin (HCC) Expected: 02/20/2024 (Approximate), Expires: 02/21/2025 [facility] Comment on above: Expected: 02/20/2024 (Approximate), Expires: 02/21/2025 Start: 02-20-2024 End: 02-21-2025 CT Neck W contrast IV CT NECK SOFT TISSUE W IVCON Radiology Routine Malignant melanoma of skin (HCC) Expected: 02/20/2024 (Approximate), Expires: 02/21/2025 [facility] Work Phone: Comment on above: Expected: 02/20/2024 (Approximate), Expires: 02/21/2025 Start: 02-20-2024 End: 01-22-2025 Lactate dehydrogenase [Enzymatic activity/volume] in Serum or Plasma LACTATE DEHYDROGENASE Lab Routine Malignant melanoma of skin (HCC) Expected: 02/20/2024 (Approximate), Expires: 01/22/2025 [facility] Comment on above: Expected: 02/20/2024 (Approximate), Expires: 01/22/2025 Start: 02-19-2024 Subsequent hospital visit by physician 02/19/2024 Hospital Encounter Surgery Center [address] [id number] Fransico Sharp MD [address] [place], [place] [id number] Malignant melanoma of skin (HCC) [C43.9] Surgery [...] Start: 02-12-2024 End: 02-12-2024 Patient encounter procedure [facility] Ultrasound Comment on above: MELANOMA-NM LYMPH NO DE IMAGING Start: 01-14-2024 End: 01-14-2024 Telemedicine consultation with patient 01/14/2024 10:15 AM EDT Telemedicine [facility] [address] [place] [address] [address] [place] [address] LobitoGurjit MD [address] [place] [address], [address] [place] [address] [facility] Start: 12-17-2023 End: 12-17-2023 Patient encounter procedure 12/17/2023 1:45 PM EDT Office Visit [facility] [address] [place] [address] Freddie Delgado APRN-CNP [address] [place] [address], [place] [address] [facility] Start: 12-10-2023 End: 12-10-2023 Patient encounter procedure 12/10/2023 2:20 PM EDT Routine [facility] [address] [place] [phone] Eliazar Castaneda, [address] [place] [address] [facility] Start: 11-20-2023 End: 11-20-2023 Patient encounter procedure 11/20/2023 8:00 AM EST Appointment [facility] Ultrasound [address] [place] [phone] [facility] Start: 11-12-2023 End: 11-12-2024 US for US OB ANATOMY SINGLE W US OB CERVICAL LENGTH Imaging Routine Screening, , for anatomic survey Expected: 11/12/2023 (Approximate), Expires: 11/12/2024 [facility] Comment on above: Expected: 11/12/2023 (Approximate), Expires: 11/12/2024 Start: 10-01-2023 Behavioral Health Screening Behavioral Health Screening [facility] Start: 10-01-2023 Depression Assessment Depression Ass essment [facility] Start: 06-01-2023 Covid-19 Vaccine ( season) Covid-19 Vaccine () [facility] Start: 06-01-2023 Influenza vaccination P [facility] Start: 05-03-2023 Screening for malign ant neoplasm of cervix Pap Smear [facility] Start: 03-19-2023 [facility] Start: 06-02-2020 [facility] Start: 06-01-2020 Influenza [facility] Start: 12-02-2019 Dental Comp Exam [facility] Work Phone: Start: 11-17-2019 Women's Health [facility] Work Phone: Start: 10-21-2019 Lipid 1996 panel [facility] Work Phone: Start: 10-14-2019 [facility] Work Phone: Comment on above: Note: Please make a referral to: Start: 09-16-2019 Dental Comp Exam [facility] Work Phone: Start: 08-25-2019 Medical Establ ished Patient [facility] Work Phone: Start: 08-20-2019 Urine Pregnanc y Test, In House Health [facility] Work Phone: Start: 2018 Screening for malign ant neoplasm of cervix HPV Testing [facility] Start: 2009 Screening for malign ant neoplasm of cervix [facility] Start: 2007 DTaP/Tdap/Td vaccine (1 - Tdap) DTaP/Tdap/Td vaccine (1 - Tdap) [facility] Start: 2007 Hepatitis B Vaccine (1 of 3 - 19+ 3-dose series) Hepatitis B Vaccine (1 of 3 - 19+ 3-dose series) [facility] Start: 2006 Adult BMI Follow Up Plan Adult BMI Follow Up Plan [facility] Start: 2006 Annual PCP Team Christian Counselor lorne Disease Visit Annual PCP Team Chronic Disease Visit [facility] Start: 2006 Hepatitis C screening Hepatitis C Sc reening [facility] Start: 2006 HIV screening HIV Screening [facility] Start: 2006 Spirometry Spirometry [facility] Start: 2003 HIV screening [facility] screen [facility] [place] Start: 1989 Varicella vaccine (1 of 2 - 2-dose childhood series) Varicella vaccine (1 of 2 - 2-dose childhood series) [place] Adjt tis trns/reargm t f/c/c/m/n/a/g/h/f 10sqcm/< TRANSFER / REARRANGEMENT ADJACENT TISSUE FACE/NECK DEFECT 10 SQ CM OR LESS Malignant melanoma of skin (HCC) [facility] A60 Alpha fetoprotein, maternal Alpha fetoprotein, maternal Lab Routine Second trimester Ordered: 11/12/2023 [facility] Work Phone: Comment on above: Ordered: 11/12/2023 Bx/exc lymph node op en deep cervical node BIOPSY NODE CERVICAL NECK Malignant melanoma of skin (HCC) [facility] A60 End: 05-03-2020 C.trachomatis N.gonorrhoeae DNA, Thin Prep C.trachomatis N.gonorrhoeae DNA, Thin Prep Microbiology Routine Once for 1 Occurrences starting 05/03/2020 until 05/03/2020 [facility] [place] Comment on above: Once for 1 Occurrenc es starting 05/03/2020 until 05/03/2020 C.trachomatis N.gonorrhoeae DNA, Thin Prep C.trachomatis N.gonorrhoeae DNA, Thin Prep Microbiology Routine 05/03/2020 7:32 AM EDT [place] Excision malignant lesion f/e/e/n/l >4.0 cm EXCISION MALIGNANT LESION FACE OVER 4.0 CM Malignant melanoma of skin (HCC) [facility] A60 Inj radioactive trac er for id of sentinel node INJECTION PROCEDURE RADIOACTIVE TRACER FOR IDENTIFICATION OF SENTINEL NODE Malignant melanoma of skin (HCC) [facility] A60 Intraop sentinel lym ph node id w/dye injection INTRAOPERATIVE ID OF SENTINEL LYMPH NODE(S) INCL'D INJECTION OF NON-RAD DYE WHEN PERFORMED Malignant melanoma of skin (HCC) [facility] A60 End: 02-02-2025 NM Lymph node Views NM LN IMAGING MELANOMA Radiology Routine Malignant melanoma of skin (HCC) 1 Occurrences starting 01/06/2024 until 02/02/2025 [facility] Work Phone: Comment on above: 1 Occurrences starti ng 01/06/2024 until 02/02/2025 Patient Education Hiatal Hernia (DC) [facility] Work Phone: [facility] A60 Immunizations Immunization Date Immunization Notes Care Provider Maryuri gómez 05-11-2023 influenza virus vaccine, unspecified formulation Katarina Paco [facility] Work Phone: [facility] 07-16-2022 SARS-COV-2 (COVID-19 ) vaccine, mRNA, spike protein, LNP, bivalent, PF Dionne BRAN Work Phone: [facility] 01-24-2018 tetanus toxoid, redu camden diphtheria toxoid, and acellular pertussis vaccine, adsorbed Dionne BRAN Work Phone: [facility] Payers Date Payer Category Payer Self-pay 2022 Medicaid [id number] 2019 Unknown 1 - [facility] [id number] [id number] 2017 Unknown [id number] 1988 Unknown [id number] 2.16.84 0.1.712999.3.579.2.593 1988 Unknown [id number] 2.16.84 0.1.182844.3.579.2.593 1988 Unknown [id number] 2.16.84 0.1.494684.3.579.2.593 1988 Unknown [id number] 2.16.84 0.1.682410.3.579.2.593 1988 Unknown [id number] 2.16.84 0.1.830595.3.579.2.593 1988 Unknown [id number] 2.16.84 0.1.769562.3.579.2.593 1988 Unknown [id number] 2.16.84 0.1.025867.3.579.2.593 1988 Unknown [id number] 2.16.84 0.1.708453.3.579.2.593 1988 Unknown [id number] 2.16.84 0.1.834739.3.579.2.593 1988 Unknown [id number] 2.16.8 40.1.742091.3.579.2.1285 1988 Unknown [id number] 2.16.8 40.1.104491.3.579.2.1285 1988 Unknown [id number] 2.16.8 40.1.234846.3.579.2.1285 1988 Unknown [id number] 2.16.8 40.1.371240.3.579.2.1285 1988 Unknown [id number] 2.16.8 40.1.708839.3.579.2.1285 1988 Unknown [id number] 2.16.84 0.1.030942.3.579.2.1285 1988 Unknown [id number] 2.16.8 40.1.280087.3.579.2.1285 1988 Unknown [id number] 2.16.8 40.1.333110.3.579.2.1285 1988 Unknown [id number] 2.16.8 40.1.111499.3.579.2.1285 1988 Unknown [id number] 2.16.84 0.1.175942.3.579.2.1258 1988 Unknown [id number] 2.16.84 0.1.031050.3.579.2.1258 1988 Unknown [id number] 2.16.84 0.1.701183.3.579.2.1258 1988 Unknown [id number] 2.16.84 0.1.673529.3.579.2.1258 1988 Unknown [id number] 2.16.84 0.1.422106.3.579.2.1258 1988 Unknown [id number] 2.16.84 0.1.979749.3.579.2.1258 1988 Unknown [id number] 2.16.84 0.1.374481.3.579.2.1258 1988 Unknown [id number] 2.16.84 0.1.635057.3.579.2.1258 1988 Unknown [id number] 2.16.84 0.1.535065.3.579.2.1258 1988 Unknown [id number] 2.16.84 0.1.866296.3.579.2.1258 1988 Unknown [id number] 2.16.840 .1.295723.3.579.2.1259 1959 Medicaid [id number] 2. 16.840.1.483003.19 Self-pay [id number] 2.16.840 .1.738422.3.140.1.31654.5.4 Unknown [employer] [id number] Unknown [id number] 2.16.8 40.1.067481.3.579.2.531 Unknown [id number] 2.16.8 40.1.220823.3.579.2.531 Social History Date Type Detail Facility Assertion Alcohol consumpt ion screening (procedure) [facility] Work Phone: Assertion [facility] Assertion Finding of alcoh ol intake (finding) [facility] Work Phone: Assertion Sexually active (finding) [facility] Work Phone: Assertion Gender identity finding (finding) [facility] Work Phone: Assertion Finding of sexua l orientation (finding) [facility] Work Phone: Tobacco smoking status Unknown if ever smoked [facility] Assertion Emotional stress (finding) [facility] Work Phone: Start: 1990 Sex Assigned At [facility] on [facility] [place] Assertion Contraception (finding) [facility] Work Phone: Start: 09-10-2023 End: 02-20-2024 Sex Assigned At [facility] Start: 1990 Sex Assigned At Female [facility] Start: 04-05-2022 End: 12-26-2023 Tobacco smoking status NHIS Never smoked tobacco [facility] Start: 04-05-2022 End: 12-26-2023 Tobacco use and exposure Smokeless tobacco non-user [facility] Start: 10-10-2023 End: 12-17-2023 Alcohol intake Ex-drinker (finding) [facility] Start: 09-10-2023 End: 02-20-2024 History of Social function [facility] How hard is it for you to pay for the very basics like food, housing, medical care, and heating Very hard [facility] Start: 07-12-2023 [facility] Start: 11-12-2023 Alcohol intake Lifetime non-d rhys (finding) [facility] Start: 03-09-2023 [facility] Start: 03-09-2023 Alcohol Comment Caffeine intak e: 1-2 cups per day coffee, pop [facility] Start: 12-26-2023 End: 01-21-2024 Alcohol intake Current drinker of alcohol (finding) [facility] NEGATED: Highlighted row Assertion He has not had 5 or more drinks in a day within the past year. [facility] Work Phone: NEGATED: Highlighted row Assertion Exposure to pollution (event) [facility] Work Phone: NEGATED: Highlighted row Assertion Tobacco user (finding) [facility] Work Phone: NEGATED: Highlighted row Assertion Current drinker of alcohol (finding) [facility] Work Phone: NEGATED: Highlighted row Assertion Finding relating to drug misuse behavior (finding) [facility] Work Phone: Goals Date Patient Goal Desired Activity /State Personal health goal Mental Status Date Assessment Result Facility Cognitive function 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 Fax sent to request path for a reread Included fed ex label. [facility] 03-11-2024 Miscellaneous Notes Formattin g of this note might be different from the original. Fax sent to request path for a reread Included fed ex label. documented in this encounter [facility] 03-06-2024 Evaluation note Diagnosis Skin cancer- Primary Unspecified malignant neoplasm of skin, site unspecified * Assessment & Plan Note - Ana Peoples MD - 03/06/2024 8:05 AM EDT Associated Problem(s): Skin cancer 03/06/[address] of neck and chest. I emailed with her oncologist via [employer]. He is ok with her going to39 weeks. I spoke with her OBGYN physician, Dr. Castaneda, who is in agreement. Pt will deliver at [facility]. Pt tells me induction set up [...] Ana Peoples MD documented in this encounter [facility]06-06-2024 NoteHNO ID: [id number] Author: ANA PEOPLES MD Service: ? Author Type: Physician Type: Progress Notes Filed: 03/06/2024 08:08 Note Text: [facility] STAFF Video visit follow up I have communicated my name and active licensure. The patient's identity and physical location were verified at the time of this visit. Either the patient or their legal real estate representative has been informed of the risks [...] - Primary Current Assessment AND Plan 03/06/2024 [facility] Pt had CT of neck and chest. I emailed with her oncologist via [employer]. He is ok with her going to 39 weeks. I spoke with her OBGYN physician, Dr. Castaneda, who is in agreement. Pt will deliver at [facility]. Pt tells me induction set up [...] Castaneda yesterday. All questions answered. MD Ana Britton [facility]06-06-2024 History of Present illness Narrative* Ana Peoples MD - 03/06/2024 7:58 AM EDT [facility] STAFF Video visit follow up I have communicated my name and active licensure. The patient's identity and physical location wereverified at the time of this visit. Either the patient or their legal real estate representative has been informed of the risks and benefits of -- and alternatives to -- treatment through a remote evaluation andconsents to proceed with the evaluation remotely. Pt is a 33 year old at 36w0d who has the following issues. Please see recommendations in problem based charting. Problem List Items Addressed This Visit Oncology Skin cancer - Primary Current Assessment & Plan 03/06/2024 [facility] Pt had CT of neck and chest. I emailed with her oncologist via [employer]. He is ok with her going to39 weeks. I spoke with her OBGYN physician, Dr. Castaneda, who is in agreement. Pt will deliver at [facility]. Pt tells me induction set up [...] MD Ana Britton MD [facility]06-[facility] Telephone encounter Note * Telephone Encounter - Daisy Murray RN - 03/05/2024 9:23 AM EDT Pt updated Daisy Murray RN [facility]06-05-2024 Miscellaneous Notes* Telephone Encounter - Daisy Murray [...] advise Daisy Murray RN documented in this encounterVeter[facility]06-05-2024 Telephone encounter Note * Telephone Encounter - Usman Goldberg MD - 03/05/2024 8:59 AM EDT I think I already communicated that with her - CT's were negative for any metastatic disease. [facility] Work Phone: [phone] Telephone encounter Note* Telephone Encounter - Daisy Murray RN - 03/04/2024 3:57 PM EDT Pt requesting CT results Louisa: Please review and advise Daisy Murray RN [facility]06-03-2024 Telephone encounter Note* Telephone Encounter - Surjit [...] post . Instructions provided to reschedule BIBI. [facility]06-03-2024 Miscellaneous Notes* Telephone Encounter - Surjit Griggs [...] her back? Thank you documented in this encounterVeter[facility]06-03-2024 Telephone encounter Note * Telephone Encounter - Ana Peoples MD - 03/03/2024 11:03 AM EDT 03/03/2024 MFM Message left on pts phone to look at her my chart messages. Ana Peoples MD [facility]06-03-2024 Miscellaneous Notes* Telephone Encounter - Ana Peoples MD - 03/03/2024 11:03 AM EDT 03/03/2024 MFM Message left on pts phone to look at her my chart messages. Ana Peoples MD documented in this encounterVeter[facility]05-31-2024 Telephone encounter Note * Telephone Encounter - Ward Orta - 02/29/2024 3:25 PM EDT Pt calling in to cancel surgery on 03/14 and pre op appointment. Can you call her back? Thank you [facility]05-28-2024 Telephone encounter Note* Telephone Encounter - Usman Goldberg MD - 02/26/2024 2:58 PM EDT She texted me - CT's look good. Will need a chest ct later. [facility] Work Phone: [phone] Miscellaneous Notes* Telephone Encounter - Usman Goldberg [...] advise Daisy Murray RN documented in this encounterVeterans Health [facility]05-28-2024 Telephone encounter Note * Telephone Encounter - Sylvia Alcala [facility] - 02/26/2024 12:43 PM EDT Patient calling. Doesn't know how to proceed. States her oncologist is out of town and no one can read the results. States she is 35 weeks . Please call patient back to discuss. [facility]05-28-2024 Telephone encounter Note* Telephone Encounter - Daisy Murray RN - 02/26/2024 12:21 PM EDT Pt calling for CT results. She is aware Dr Deshpande is out of office this week and will be in touch withhis response Sunday. Louisa: Please advise Daisy Murray RN [facility]05-24-2024 NoteHNO ID: [id number] Author: PACHECO BOWEN RN Service: ? Author [...] Mckeon DATE: February 22, 2024 TIME: 10:46 [facility]05-24-2024 NoteHNO ID: [id number] Author: BRANDON COULTER RT(R) Service: ? Author [...] PATIENT PRESENTS WITH AN IMPLANTABLE OR ATTACHED WEB CONTENT COORDINATOR: No RADIOLOGY DEPARTMENT: CT; Exam(s) Completed: Chest and Neck PERIPHERAL IV DATA: Site assessment: Clean,Dry and Intact, Site disposition Discontinued SIGNED BY: Brandon Coulter RT(R) February 22, 2024 11:10 [facility]04-26-2024 Telephone encounter Note* Telephone Encounter - Cynthia Petty - 01/25/2024 1:47 PM EDT Pt is not able to make the appt on 02/11; aloso wondering if this should be on March 14 instead? Thanks [facility]04-26-2024 Miscellaneous Notes* Telephone Encounter - Cynthia Petty - 01/25/2024 1:47 PM EDT Pt is not able to make the appt on 02/11; aloso wondering if this should be on March 14 instead? Thanks documented in this encounterVeterans Health Administration04-25-2024 Telephone encounter Note * Telephone Encounter - Angela Hilario - 01/24/2024 12:44 PM EDT Vy is scheduled for her CT scan on 02/21 at 11am. She is scheduled for her labwork still, on 02/19. I spoke with Vy and she is in agreement. Angela Arthur [facility]04-25-2024 Miscellaneous Notes* Telephone Encounter - Angela Hilario - 01/24/2024 12:44 PM EDT Vy is scheduled for her CT scan on 02/21 at 11am. She is scheduled for her labwork still, on 02/19. I spoke with Vy and she is in agreement. Angela Arthur * Telephone Encounter - Brandon Churchill, BRITNEY - 01/24/2024 12:23 PM EDT Clerical: Please [...] note were not included. documented in this encounterVeterans Health Administration04-25-2024 Telephone encounter Note * Telephone Encounter - Brandon Churchill RN - 01/24/2024 12:23 PM EDT Clerical: Please call pt to schedule CT scans. Brandon Churchill RN [facility] Work Phone: [phone] Telephone encounter Note* Telephone Encounter - Usman Goldberg MD - 01/24/2024 12:18 PM EDT It's ok to move up - but I'd want to know closer to delivery (33 weeks - 34 weeks) because then there won't be a need for additional scans later. Labs are to be done prior to CT. [facility]04-25-2024 Telephone encounter Note* Telephone Encounter - Brandon [...] CT ahead of 02/19? Brandon Churchill RN [facility]04-25-2024 Telephone encounter Note* Telephone Encounter - Daisy [...] Vy Deshpande: Please advise Daisy Murray RN [facility]04-24-2024 Telephone encounter Note* Telephone Encounter - Usman Goldberg MD - 01/23/2024 4:24 PM EDT We won's be doing scans for 4 weeks.... that works out to be around 33 weeks gestation Does that sound right? (February 19) Thanks, louisa. [facility]04-24-2024 Telephone encounter Note* Telephone Encounter - Brandon Churchill RN - 01/23/2024 3:54 PM EDT Pt calls regarding CT scans. Please place orders. Thanks! Brandon Churchill, RN [facility]04-23-2024 Telephone encounter Note* Telephone Encounter - Ana [...] known. All questions answered. Ana Peoples MD [facility]04-23-2024 Miscellaneous Notes* Telephone Encounter - Ana Peoples [...] answered. Ana Peoples MD documented in this encounterV[facility]04-[facility]-2024 Telephone encounter Note * Telephone Encounter - Brandon Churchill RN - 01/22/2024 1:02 PM EDT Images from the original note were not included. [facility]04-23-2024 NoteHNO ID: [id number] Author: ANA PEOPLES MD Service: ? Author [...] Skin cancer Current Assessment AND Plan 01/22/2024 [facility] Pt is a 33 year old 29w4d with a new diagnosis of malignant melanoma located above the left upper lip. Oncologist Usman Goldberg MD Surgeon Fransico Sharp MD [facility] in [place], [place]: Eliazar Castaneda MD The plan is for wide local excision with reconstruction, which may take multiple trips to the OR. The OR plan involves radioactive tracer for sentinal node She has not been imaged for staging. She comes to [facility] today for discussion on when to deliver. [...] previa antepartum in second trimester Overview 01/21/2024 [facility] Previa resolved on US today. Placenta > 2cm away from the cervix. Ana Peoples MD Other Visit Diagnoses Malignant melanoma of skin (HCC) I spent 70 minutes in the visit, with more than 50% of the total ysmo-lh-yvay time of the visit in counseling / coordination of care. I shared my findings and recommendations via the shared medical record or via the mail to the referring provider. Ana Peoples, [facility]04-23-2024 History of Present illness Narrative* Ana Peoples [...] Fransico Sharp MD [facility] in [place], [place]: Eliazar Castaneda MD The plan is for wide local excision with reconstruction, which may take multiple trips to the OR. The OR plan involves radioactive tracer for sentinal node She has not been imaged for staging. She comes to [facility] today for discussion on when to deliver. [...] previa antepartum in second trimester Overview 01/21/2024 [facility] Previa resolved on US today. Placenta > 2cm away from the cervix. Ana Peoples MD Other Visit Diagnoses Malignant melanoma of skin (HCC) I spent 70 minutes in the visit, with more than 50% of the total ivwq-mm-uimd time of the visit in counseling / coordination of care. I shared my findings and recommendations via the shared medical record or via the mail to the referring provider. Ana Peoples MD documented in this encounterV[facility]04-19-2024 Miscellaneous Notes* Telephone Encounter - Jose L [...] Jose L Crowley MA documented in this encounterVeter[facility]04-11-2024 Miscellaneous Notes* Telephone Encounter - Rolo Parada - 01/10/2024 9:18 AM EDT [employer] msg was sent to patient asking for call back to this coordinator to schedule MFM consultation. documented in this encounterVeter[facility]04-10-2024 Miscellaneous Notes* Telephone Encounter - Surjit Griggs RN - 01/09/2024 12:35 PM EDT Reached out to patient. Instructions provided to see a maternal medicine specialist within the [facility] per Dr. Sharp. This nurse explained that the multidisciplinary team will need frequent communications in arranging the plan of care, and staying in one healthcare system will help facilitate planning. * Telephone Encounter - Fernanda Michael - 01/09/2024 9:52 AM EDT Patient called that she is seeing Maternal Med, in her area and was questioning does she needto see one at the [facility]? She is asking for a call.. she is very nervous documented in this encounterVeter[facility]04-05-2024 Instructions* Patient Instructions* Valerie Bedoya RN - 01/04/2024 3:21 PM EDT PLAN: - Photos taken and uploaded to chart today via [employer] - Pathology re-read to be obtained - Surgical plan is for resection of left upper lip melanoma, reconstruction with local tissue rearrangement, and a sentinel lymph node biopsy - Surgery at [facility] or [facility]. Likely plan is to wait for surgical intervention until after 36 weeks . - Pre op clearance (PACC) prior to surgery for clearance to receive general anesthesia; must be done at a [facility] location - Nuclear medicine appointment at [facility] the morning of surgery - Post op 7-10 days with Tana Cervantes APRN.CNP - Consult placed to Maternal Medicine (MFM) for risk assessment and guidance: call [phone] to schedule. - Recommend regular dermatology follow-up for FBSE - Q3 months for 2 years, Q6 months for 5 years and Q1 year for the rest of his/her life Our nursing surgical services director will contact you to set up all [...] the office with questions/concerns. documented in this encounterVeter[facility]03-29-2024 NoteHNO ID: [id number] Author: FRANSICO SHARP MD Service: ? Author Type: Physician Type: Progress Notes Filed: 01/06/2024 09:42 Note Text: DATE: January 03, 2024 CC: New Melanoma Patient Referring Physician: Margarita Kim MD at [facility] in [place] HPI: Vy Mckeon is a 33 year [...] 400 mg by mouth. omeprazole magnesium (ACID MEDICAL SALES ASSOCIATE, OMEPRAZOLE, ORAL) Take by mouth as directed. [...] left upper lip with a variegated pattern, grocery stocker in the middle with a number of dark spots. The lesion measures 1 cm in diameter. Photos taken, see [facility] Get Images LABS: Pathology Report [...] taken and uploaded to chart today via [employer] - Pathology re-read to be obtained - Surgical plan is for resection of left upper lip melanoma, reconstruction with local tissue rearrangement, and a sentinel lymph node biopsy - Surgery at [facility] or . Likely plan is to wait for surgical intervention until after 36 weeks . - PACC prior to surgery - Nuclear medicine appointment at [facility] the (more content not included)... [facility]03-29-2024 History of Present illness Narrative* Fransico Sharp MD - 12/28/2023 8:54 AM EDT Images from the original note were not included. DATE: January 03, 2024 CC: New Melanoma Patient Referring Physician: Margarita Kim MD at [facility] [place] HPI: Vy Mckeon is a 33 year [...] 400 mg by mouth. omeprazole magnesium (ACID MEDICAL SALES ASSOCIATE, OMEPRAZOLE, ORAL) Take by mouth as directed. [...] left upper lip with a variegated pattern, grocery stocker in the middle with a number of dark spots. The lesion measures 1 cm in diameter. Photos taken, see [facility] Get Images LABS: Pathology Report [...] taken and uploaded to chart today via [employer] - Pathology re-read to be obtained - Surgical plan is for resection of left upper lip melanoma, reconstruction with local tissue rearrangement, and a sentinel lymph node biopsy - Surgery at [facility] or . Likely plan is to wait for surgical intervention until after 36 weeks . - PACC prior to surgery - Nuclear medicine appointment at [facility] the morning of surgery - Post op 7-10 days with Tana Cervantes APRN.PRESCHOOL DIRECTOR - Consult placed to [facility] for risk assessment and guidance: call [phone] to schedule. - Recommend regular dermatology follow-up for FBSE - Q3 months for 2 years, Q6 months for 5 years and Q1 year for the rest of his/her life - Patient follows with OBGYN Dr. Castaneda in [place], [place] Follow up after 36 weeks of and with [facility]'s recommendations. 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 While I believe this jonathan a [...] consultation. Fransico Sharp MD documented in this encounterVeterans Health Administration03-27-2024 NoteHNO ID: [id number] Author: USMAN GOLDBERG MD Service: ? Author Type: Physician Type: Progress Notes Filed: 12/27/2023 12:46 Note Text: NAME: Vy Mckeon [facility] NO.: [id number] DATE OF SERVICE: December 26, 2023 (Krystal) [...] 400 mg by mouth. omeprazole magnesium (ACID MEDICAL SALES ASSOCIATE, OMEPRAZOLE, ORAL) Take by mouth as directed. PNV no.95/ferrous fum/folic ac ( ORAL) Take by mouth as directed. LABORATORY VALUES: WBC (k/uL) Date Value 12/26/2023 9.72 RBC (m/uL) Date Value 12/26/2023 3.99 Hemoglob (more content not included)...[facility]03-18-2024 History of Present illness Narrative* Freddie Delgado, ABHI-PRESCHOOL DIRECTOR - 12/17/2023 1:45 PM EDT Subjective Patient ID: Vy Mckeon is a 33 y.o. female. FRANDY Mcclellan presents to the office for follow up.She was last seen with continued depression and anxietyand had stopped taking Zoloft, hydroxyzine and trazodone because she was found to be . She is 24 weeks along in her with Placenta previa. Last [facility] visit 12/11/23 with . carrier screening result [...] not have morning sickness. [facility]10 pre-marcos visit RBC-3.72, HGB 11.2, [...] normal. Behavior: Behavior normal. Assessment/Plan Follow-up with [facility] for follow-up on hematology result showing minimally [...] for sleep. Note completed with assistance of [employer]ATING [employer] student. GIOVANNI Darling 12/17/23 1538 documented in this encounterUC [facility] Center03-18-2024 Miscellaneous Notes* Medical Student - Valerie Vasquez [...] the legal medical record. documented in this encounterUC Medical Center03-18-2024 Progress note* Medical Student - Valerie [...] a part of the legal medical record. [facility]03-[facility] History of Present illness Narrative* TAMMY Duran - 12/07/2023 12:16 PM ESTSummary: FOB carrier screening results Called Vy to let her know that FOB's carrier screening result for GJB2- related disorders is negative. The is low risk to be affected with this condition. Vy understood and had no additional questions. I encouraged her to reach out if anything comes up. documented in this encounterUC Medical Center02-20-2024 History of Present illness Narrative* Fidencio Rojas MD - 11/20/2023 9:30 AM EST Video Visit via Real-time Synchronous Audiovisual Provider Location: [facility] [place] [address], [address] [place] [address] Patient Location: Other Patient Location Sisal Picker: None Video Visit Consent Statement: I discussed [...] that there are some limitations compared to vkej-we-vtjp evaluations. We elected to proceed. 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 Patient does have ultrasound and office visit scheduled with us. Thank you for allowing me to participate in the care of Vy Mckeon. If there any questions please do not hesitate to contact us. Fidencio Rojas MD Maternal- Medicine [facility] [address] 1st [place] [address] [facility], the CDC, and other organizations representing maternal and public health professionals recommend that , , and lactating people and those considering receive the COVID-19 vaccination. Vaccination is the best method to reduce maternal and complications of SARS-CoV-2 infection. This document was created with [employer] technology. Though I make every effort to review the dictation as it is transcribed, on occasion the spoken word can be misinterpreted by the technology leading to inappropriate words, phrases, or sentences. This note is addressed to the requesting provider as a consultation for clinical guidance. Specificmedical abbreviations are occasionally used and those are generally approved by the [place]?Board of?Obstetrics and?Gynecology?as well as?Justyna s abbreviations. The above plan of care was based solely on the diagnoses for which a consultation was requested. ?More frequent testing may be indicated based on her other medical/obstetrical conditions. The management of other or medical conditions is beyond the scope of requested consultation and will c ontinue to be followed by the primary bomb loader or primary care provider. Note to patient: [...] opinion of the practitioner. documented in this encounterUC Medical Center02-12-2024 History of Present illness Narrative* SHANT España - 11/12/2023 1:00 PM EST Reason for Appointment: Patient ID: Vy Mckeon is a 33 y.o. female who presents for Routine Visit Patient presents today for Return OB appointment. Current Medications: has a current medication list which includes the following prescription(s): valacyclovir. Medical History: Active Ambulatory Problems Diagnosis Date Noted Attention deficit hyperactivity disorder ([facility]) 02/13/2023 Bipolar disorder, most recent episode depressed ([facility]) 02/13/2023 Depression ([facility]) 02/13/2023 Generalized anxiety disorder ([facility]) 02/13/2023 Insomnia 02/13/2023 Mild episode of recurrent major depressive disorder (HCC) ([facility]) 02/13/2023 Mild intermittent asthma without complication ([facility]) 02/13/2023 Asthma exacerbation, mild ([facility]) 02/13/2023 Mild persistent asthma with (acute) exacerbation ([facility]) 02/19/2023 Second trimester 10/08/2023 AMA (advanced maternal age) primigravida 35+, unspecified trimester 10/08/2023 Resolved Ambulatory Problems Diagnosis Date Noted No Resolved Ambulatory Problems Past Medical History: Diagnosis Date ADHD (attention deficit hyperactivity disorder) ([facility]) Allergies Anxiety Asthma ([facility]) Bipolar disorder ([facility]) Family History Problem Relation Name [...] obtained without difficulty and patient was given [facility] order to have obtained. Follow Up: Patient is to return to our office in 4 weeks for routine OB appointment Documented by Dana Farris LPN on behalf of: SHANT España documented in this encounterHCA Midwest [id number] History of Present illness Narrative* TAMMY Duran - 11/12/2023 10:22 AM ESTSummary: MOB carrier screening results Called and discussed carrier screening results with Vy. 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 We discussed the natural history and etiology of the condition. Gregory FOB carrier screening if he's available. She [...] additional questions or concerns. documented in this encounterUC Medical Center01-29-2024 History of Present illness Narrative* TAMMY Duran [...] be completed between 11/10-11/17. documented in this encounterUC Medical Center01-22-2024 History of Present illness Narrative* TAMMY Duran - 10/22/2023 11:00 AM ESTSumkamila: M Genetic Counseling Note Provider at different site/location than patient. I confirmed the patient is located in the [facility]. Vy Mckeon is currently at home and provider at remote site. The patient consented to be treated electronically via this form of telemedicine. This visit was not related to an office visit or procedure in the past 7 days, and in-office follow up is not recommended in the next 24 hours. Video Visit via Real-time Synchronous Audiovisual Provider Location: [facility] [address] [phone] Patient Location: Patient's home Patient Location Sisal Picker: None Video Visit Consent Statement: I discussed [...] that there are some limitations compared to ikwk-bg-xoqh evaluations. We elected to proceed. Name: Jossjuvenal Vy : 1990 Date of Visit: 10/22/2023 Email: [email or web address] Preferred contact method: email Partner's Name: Bogdan Age: 32 Requesting Physician: Eliazar Castaneda DO [address], [place] [address] Reason for Referral: Vy Mckeon is a 33 y.o. female who presented to [facility] Telemedicine Clinic. Vy is here at the [...] - low risk Performing lab: [facility] ([facility] Screen) Conditions screened: Trisomy 13, Trisomy [...] of the medical records and evaluation by director medical writing of the affected individual would be recommended. [...] age I personally spent 25 minutes in cliv-nw-equn time with this patient. I provided genetic [...] call or email their genetic counselor at [phone] or if any additional questions or concerns should arise. Katarina Antonio [facility] Licensed, Certified Genetic Counselor documented in this encounterMercy Health West HospitalDSW Holdings [id number] Evaluation note* Encounter Date Diagnosis Assessment Notes Treatment Notes Treatment Clinical Notes May, Thrush (ICD-10 - B37.0) Continue home medications as prescribed. Use the nystatin mouthwash as prescribed, swish and swallow. Follow-up with your family physician if no improvement in 2 to 3 days [employer] Other 06-19-2023 [facility] Evaluation note* Encounter Date Diagnosis [...] educated on the importance of PPI optimization [employer] Other 05-10-2023 Evaluation note* Encounter Date Diagnosis [...] January, Other Contusion mater ial was printed [employer] Other 08-23-2022 NoteOPERATIVE NOTE OPERATION DATE: 05/23/2022 PROCEDURE: Suction D AND C. PREOPERATIVE DIAGNOSIS: Missed . POSTOPERATIVE DIAGNOSIS: Missed . ANESTHESIA: General. SURGEON: Eliazar Castaneda D.O. GENERAL NEUROLOGIST: None. FINDING: Products of conception. SPECIMEN: Products [...] products of conception were removed using an 8-Tunisian suction curette. Excellent hemostasis was noted. The patient tolerated the procedure well. Sponge, lap, and needle counts were correct x 2. All instruments were then removed from the patient's vagina. The patient was taken to the Recovery Room in stable condition. ??[facility] Includes: Assessments for all patient encounters Findings Encounter Date Depressive disorder [facility] with Emilee Short [facility] 03/29/2020 Generalized anxiety disorder [facility] with Emilee Short [facility] 03/29/2020 Dysthymic disorder Established Patie nt with Bobbi Colon [facility] 10/14/2019 Generalized anxiety disorder Establis hed Patient with Bobbi Colon [facility] 10/14/2019 Z68.24 - Body mass index (BM I) 24.0-24.9 adult Medical Established Patient with Candace Grossman CNP 10/14/2019 F34.1 - Dysthymic disorder Establishe d Patient with Bobbi Colon [facility] 09/04/2019 Generalized anxiety disorder Establis hed Patient with Bobbi Colon [facility] 09/04/2019 Body mass index Medical Established Patient with Candace Grossman CNP 09/04/2019 Diabetes Risk Test Score was 0 score 09/04/2019 Medical Established Patient with Candace Grossman PRESCHOOL DIRECTOR 09/04/2019 Body mass index Nurse Visit with Candace Grossman CN P 08/19/2019 Diabetes Risk Test Score was 0 score 08/19/2019 Nurse Visit with Candace Grossman PRESCHOOL DIRECTOR 08/19/2019 Generalized anxiety disorder BH Establis hed Patient with Bobbi Colon [facility] 07/28/2019 Severe recurrent major depre 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 features BH Established Patient with Bobbi Colon [facility] 07/28/2019 AUDIT alcohol use disorders identification test was six 07/28/2019 Medical New Patient with Candace Grossman PRESCHOOL DIRECTOR 07/28/2019 Diabetes Risk Test Score was 0 score 07/28/2019 Medical New Patient with Candace Grossman PRESCHOOL DIRECTOR 07/28/2019 ZAN-7 score was 21 07/28/2019 Medical Ne w Patient with Candace Grossman PRESCHOOL DIRECTOR 07/28/2019 PHQ-9: total score was 21 07/28/2019 Med ical New Patient with Candace Grossman PRESCHOOL DIRECTOR 07/28/2019 Z68.22 - Body mass index (BM I) 22.0-22.9 adult Medical New Patient with Candace Grossman PRESCHOOL DIRECTOR 07/28/2019 [facility] Work Phone: Evaluation noteNo assessment information available [facility] Work Phone: Evaluation note* Diagnosis Onset Date Resolution Status GERD (gastroesophageal reflux disease) acute [facility] Work Phone: Evaluation note* Diagnosis Multigravida [...] multigravida, second trimester [facility] encounter [facility] Diagnosis Placenta previa antepartum in second trimester- Primary Multigravida of advanced maternal age in second trimester documented [facility] this encounter [facility]* Diagnosis Nausea and vomiting, unspecified vomiting type- Primary Psychophysiological insomnia Persistent disorder of initiating or maintaining sleep [facility] encounter [facility]* Diagnosis Malignant melanoma of skin (HCC)- Primary Melanoma of skin, site unspecified [facility] Diagnosis Encounter for anatomic survey Encounter for anatomic survey- Primary documented in this encounter [facility]* Diagnosis Encounter for anatomic survey documented in this encounter [facility]* Diagnosis Malignant melanoma of skin (HCC) Melanoma of skin, site unspecified Skin cancer Unspecified malignant neoplasm of skin, site unspecified Placenta previa antepartum in second trimester * Assessment & Plan Note - Ana Peoples MD - 01/21/2024 1:34 PM EDT Associated Problem(s): Skin cancer 01/22/2024 [facility] Pt is a 33 year old 29w4d with a new diagnosis of malignant melanoma located above the left upper lip. Oncologist Usman Goldberg MD Surgeon Fransico Sharp MD [facility] general OBGYN in [place], [place]: Eliazar Castaneda MD The plan is for wide local excision with reconstruction, which may take multiple trips to the OR. The OR plan involves radioactive tracer for sentinal node She has not been imaged for staging. She comes to [facility] today for discussion on when to deliver. [...] [facility] for pathology should she deliver at [place]. Ana Peoples MD documented [facility] this encounter [facility]* Diagnosis Malignant melanoma of skin (HCC)- Primary Melanoma of skin, site unspecified Malignant melanoma of skin (HCC) Melanoma of skin, site unspecified documented in this encounter [facility] Narrative - Reported* Type Description Date Medical History anxiety Medical History depression Medical History ADHD Surgical History D&C [employer] Other History general Narrative - Reported* Type Description Date Medical History anxiety Medical History depression Medical History ADHD Surgical History D&C 2021 [employer] Other History of Present illness Narrative History of Present Illness not supported for this document type No History of Present Illness RecordedHealth [facility] Work Phone: Hospital Discharge instructions Additional Instructions [...] NOT operate machinery such as power tools, [employer] mowers, snow blowers, sewing machines, etc. -Avoid [...] if you have any problems. -Office number [phone] Work Phone: Instructions Instructions not supported for this document type No [facility]ructions [facility] Work Phone: InstructionsNot on filedocumented in this encounter [facility] SystemInstructionsNot on filedocumented in this encounter [facility] Click Bus SystemInstructionsNot on filedocumented in this encounter [facility] SystemPatient problem outcome Narrative Includes: Evaluations & Outcomes for active Goals No Outcomes Record[facility]Health [facility] Work Phone: reason for referral (narrative)No Reason for Referral Recorded[facility] Work Phone: reason for referral (narrative)* Diagnostic Procedure Only (Routine) - Closed Specialty Diagnoses / Procedures Referred By Contac t Referred To Contact [facility] Diagnoses Encounter for anatomic survey Procedures OBSTETRIC ULTRASOUND WHI US PREG UTERUS AFTER 1ST [place] [address] [place] [address] [facility] [address] [place] [address] Referral ID Status Reason Start Date Expiration Date V isits Requested Visits Authorized [id number] Closed Auto-Generate d Referral 01/21/2024 01/20/2025 1 1 [facility] AdministrationReason for visit NarrativeUNCONTROLLED GERD//REFERRAL FROM [employer] Other Reason for visit Narrative* Consultation (Routine) - Pending Review Specialty Diagnoses / Procedures Referred By Contac t Referred To Contact Maternal and Medicine Diagnoses Multigravida of advanced maternal age in second trimester Eliazar Castaneda R, DO [address] , [place] [address] [facility]aternal [facility] [address] [place] [address] Referral ID Status Reason Start Date Expiration Date Visits Requested Visits Authorized [id number] Pending Review Specialty Services Required 10/10/2023 10/09/2024 1 1 [facility] Diagnostic Procedure Only (Routine) - Closed Specialty Diagnoses / Procedures Referred By Contac t Referred To Contact [facility] [place] Diagnoses Encounter for anatomic survey Procedures OBSTETRIC ULTRASOUND WHI US PREG UTERUS AFTER 1ST TRIMEST 1/1[place] [address] [place] [address] [facility] [address] [place] [address] Referral ID Status Reason Start Date Expiration Date V isits Requested Visits Authorized [id number] Closed Auto-Generate d Referral 01/21/2024 01/20/2025 1 1 [facility] Narrative - Reported Review of Systems not supported for this document type No Review of Systems [facility] Work Phone: Summary Purpose Family History No Family History Records Found Description Last Updated Paternal history of cardiovascular disor thuy 07/28/2019 Relationship Condition Age at Onset Recorded Date/T pia Not Specified Anxiety Unknown Chronic obstructive pulmonary disease Unk nown Advance Directives No Advanced Directives Records FoundDocuments on File Type Date Recorded 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 [address] [place] [address] Referral ID Status Reason Start Date Expiration Date V isits Requested Visits Authorized [id number] Pending Review 11/20/2023 11/19/2024 1 1 Specialty Diagnoses / Procedures Referred By Contac t Referred To Contact Diagnoses Malignant melanoma of skin (HCC) Procedures REFER TO PACC - PRE ANESTHESIA CONSULTATION CLINIC OFFICE/OUTPATIENT [facility] 60 MINUTES Fransico Sharp MD [address] [place] [address] Referral ID Status Reason Start Date Expiration Date Visits Requested Visits Authorized [id number] Authorized PCP Requested Referral 01/04/2024 01/03/2025 1 1 Specialty Diagnoses / Procedures Referred By Contac t Referred To Contact Diagnoses Malignant melanoma of skin (HCC) Procedures CONSULT TO MATERNAL MEDI OFFICE/OUTPATIENT [facility] 60 MINUTES Fransico Sharp MD [address] [place] [address] Referral ID Status Reason Start Date Expiration Date Visits Requested Visits Authorized [id number] Authorized PCP Requested Referral Auto-Generate d Referral 01/04/2024 01/03/2025 1 1 Specialty Diagnoses / Procedures Referred By Contac t Referred To Contact CT IMAG[facility] Diagnoses Malignant melanoma of skin (HCC) Procedures CT CHEST W IVCON DIAGNOSTIC COMPUTED TOMOGRAPHY THORAX W/CONTRAST Usman Goldberg MD [address] [place] [address] [place] [address] Referral ID Status Reason Start Date Expiration Date Visits Requested Visits Authorized [id number] Authorized Auto-Generat ed Referral 02/20/2024 02/21/2025 1 1 Specialty Diagnoses / Procedures Referred By Contac t Referred To Contact CT IMAGING Diagnoses Malignant melanoma of skin (HCC) Procedures CT NECK SOFT TISSUE W IVCON CT SOFT TISSUE NECK W/CONTRAST MATERIAL Usman Goldberg MD [address] [place] [address] [place] [address] Referral ID Status Reason Start Date Expiration Date Visits Requested Visits Authorized [id number] Authorized Auto-Generat ed Referral 02/20/2024 02/21/2025 1 1 Assessments Findings Encounter Date Generalized anxiety disorder Establis hed Patient with Bobbi Colon [facility] 07/28/2019 Severe recurrent major depre 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 features BH Established Patient with Bobbi Colon [facility] 07/28/2019 AUDIT alcohol use disorders identification test was six 07/28/2019 Medical New Patient with Candace Grossman [facility] 07/28/2019 Diabetes Risk Test Score was 0 score 07/28/2019 Medical New Patient with Candace Grossman [facility] 07/28/2019 ZAN-7 score was 21 07/28/2019 Medical Ne w Patient with Candace Grossman [facility] 07/28/2019 PHQ-9: total score was 21 07/28/2019 Med ical New Patient with Candace Grossman [employer] 07/28/2019 Z68.22 - Body mass index (BM I) 22.0-22.9 adult Medical New Patient with Candace Grossman [employer] 07/28/2019 Findings Encounter Date F34.1 - Dysthymic disorder BH Establishe d Patient with Bobbi Colon [facility] 09/04/2019 Generalized anxiety disorder BH Establis hed Patient with Bobbileif Colon [facility] 09/04/2019 Body mass index Medical Established Patient with Candace Grossman [facility] 09/04/2019 Diabetes Risk Test Score was 0 score 09/04/2019 Medical Established Patient with Candacehalley Grossman [employer] 09/04/2019 Body mass index Nurse Visit with Candace Dianelys P 08/19/2019 Diabetes Risk Test Score was 0 score 08/19/2019 Nurse Visit with Candace Dianelys [facility] 08/19/2019 Generalized anxiety disorder BH Establis hed Patient with Bobbileif Colon [facility] 07/28/2019 Severe recurrent major depre 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 features Established Patient with Bbobi Colon [facility] 07/28/2019 AUDIT alcohol use disorders identification test was six 07/28/2019 Medical New Patient with Candace Grossman [facility] 07/28/2019 Diabetes Risk Test Score was 0 score 07/28/2019 Medical New Patient with Candace Grossman [facility] 07/28/2019 ZAN-7 score was 21 07/28/2019 Medical Ne w Patient with Candace Grossman [facility] 07/28/2019 PHQ-9: total score was 21 07/28/2019 Med ical New Patient with Candace Grossman [facility] 07/28/2019 Z68.22 - Body mass index (BM I) 22.0-22.9 adult Medical New Patient with Candace Grossman [facility] 07/28/2019 Findings Encounter Date Dysthymic disorder BH Established Patie nt with Bobbi Colon [facility] 10/14/2019 Generalized anxiety disorder BH Establis hed Patient with Bobbileif oClon [facility] 10/14/2019 Z68.24 - Body mass index (BM I) 24.0-24.9 adult Medical Established Patient with Candace Grossman [employer] 10/14/2019 F34.1 - Dysthymic disorder BH Establishe d Patient with Bobbi Colon [facility] 09/04/2019 Generalized anxiety disorder BH Establis hed Patient with Bobbileif Colon [facility] 09/04/2019 Body mass index Medical Established Patient with Candacehalley Grossman [employer] 09/04/2019 Diabetes Risk Test Score was 0 score 09/04/2019 Medical Established Patient with Candace Grossman [facility] 09/04/2019 Body mass index Nurse Visit with Candace Grossman P 08/19/2019 Diabetes Risk Test Score was 0 score 08/19/2019 Nurse Visit with Candace Dianelys [employer] 08/19/2019 Generalized anxiety disorder BH Establis hed Patient with Bobbi Colon [facility] 07/28/2019 Severe recurrent major depre 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 features BH Established Patient with Bobbi Colon [facility] 07/28/2019 AUDIT alcohol use disorders identification test was six 07/28/2019 Medical New Patient with Candace Grossman [facility] 07/28/2019 Diabetes Risk Test Score was 0 score 07/28/2019 Medical New Patient with Candace Grossman [facility] 07/28/2019 ZAN-7 score was 21 07/28/2019 Medical Ne w Patient with Candace Grossman [facility] 07/28/2019 PHQ-9: total score was 21 07/28/2019 Med ical New Patient with Candace Grossman [facility] 07/28/2019 Z68.22 - Body mass index (BM I) 22.0-22.9 adult Medical New Patient with Candace Grossman [facility] 07/28/2019 Findings Encounter Date Visit for: contraceptive management [facility] with Linnea Samaniegole [facility] 04/08/2020 Z68.24 - Body mass index (BM I) 24.0-24.9, adult Women's Health with Linnea Luz [employer] 04/08/2020 Depressive disorder Telebehavioral He alth with Emilee Short [facility] 03/29/2020 Generalized anxiety disorder [facility] Emilee Short [facility] 03/29/2020 Dysthymic disorder Established Patie nt with Bobbi Colon [facility] 10/14/2019 Generalized anxiety disorder BH Establis hed Patient with Bobbi Colon [facility] 10/14/2019 Z68.24 - Body mass index (BM I) 24.0-24.9 adult Medical Established Patient with Candace Dianelys [facility] 10/14/2019 F34.1 - Dysthymic disorder BH Establishe d Patient with Bobbi Colon [facility] 09/04/2019 Generalized anxiety disorder BH Establis hed Patient with Bobbi Colon [facility] 09/04/2019 Body mass index Medical Established Patient with Candace Dianelys [facility] 09/04/2019 Diabetes Risk Test Score was 0 score 09/04/2019 Medical Established Patient with Candace Grossman [facility] 09/04/2019 Body mass index Nurse Visit with Candace ECHEVARRIA P 08/19/2019 Diabetes Risk Test Score was 0 score 08/19/2019 Nurse Visit with Candace Grossman [facility] 08/19/2019 Generalized anxiety disorder BH Establis hed Patient with Bobbi Colon [facility] 07/28/2019 Severe recurrent major depre 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 features BH Established Patient with Bobbi Colon [facility] 07/28/2019 AUDIT alcohol use disorders identification test was six 07/28/2019 Medical New Patient with Candace Grossman [facility] 07/28/2019 Diabetes Risk Test Score was 0 score 07/28/2019 Medical New Patient with Candace Grossman [facility] 07/28/2019 ZAN-7 score was 21 07/28/2019 Medical Ne w Patient with Candace Grossman [facility] 07/28/2019 PHQ-9: total score was 21 07/28/2019 Med ical New Patient with Candace Grossman [facility] 07/28/2019 Z68.22 - Body mass index (BM I) 22.0-22.9 adult Medical New Patient with Candace Dianelys [facility] 07/28/2019 Findings Encounter Date Body mass index Nurse Visit with Candace Grossman P 08/19/2019 Diabetes Risk Test Score was 0 score 08/19/2019 Nurse Visit with Candace Grossman [facility] 08/19/2019 Generalized anxiety disorder BH Establis hed Patient with Bobbi Colon [facility] 07/28/2019 Severe recurrent major depre 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 features BH Established Patient with Bobbileif Colon [facility] 07/28/2019 AUDIT alcohol use disorders identification test was six 07/28/2019 Medical New Patient with Candace Grossman [facility] 07/28/2019 Diabetes Risk Test Score was 0 score 07/28/2019 Medical New Patient with Candace Grossman [facility] 07/28/2019 ZAN-7 score was 21 07/28/2019 Medical Ne w Patient with Candace Grossman [facility] 07/28/2019 PHQ-9: total score was 21 07/28/2019 Med ical New Patient with Candacehalley Grossman [facility] 07/28/2019 Z68.22 - Body mass index (BM I) 22.0-22.9 adult Medical New Patient with Candace Grossman [facility] 07/28/2019 Findings Encounter Date Overweight Women's Health with Candace Grossman [facility] 05/03/2020 Z68.24 - Body mass index (BM I) 24.0-24.9, adult Women's Health with Candace Dianelys [employer] 05/03/2020 Visit for: contraceptive management Women's Heal th with Linnea Escobar [employer] 04/08/2020 Z68.24 - Body mass index (BM I) 24.0-24.9, adult Women's Health with Linnea Escobar [employer] 04/08/2020 Depressive disorder Telebehavioral He alth with Emilee Short [facility] 03/29/2020 Generalized anxiety disorder Telebeha vioral Health with Emilee Short [facility] 03/29/2020 Dysthymic disorder Established Patie nt with Bobbi Colon [facility] 10/14/2019 Generalized anxiety disorder Establis hed Patient with Bobbi Colon [facility] 10/14/2019 Z68.24 - Body mass index (BM I) 24.0-24.9 adult Medical Established Patient with Candace Grossman [facility] 10/14/2019 F34.1 - Dysthymic disorder Establishe d Patient with Bobbi Colon [facility] 09/04/2019 Generalized anxiety disorder Establis hed Patient with Bobbi Colon [facility] 09/04/2019 Body mass index Medical Established Patient with Candacehalley Grossman [facility] 09/04/2019 Diabetes Risk Test Score was 0 score 09/04/2019 Medical Established Patient with Candacehalley Grossman [facility] 09/04/2019 Body mass index Nurse Visit with Candace Grossman P 08/19/2019 Diabetes Risk Test Score was 0 score 08/19/2019 Nurse Visit with Candace Grossman [facility] 08/19/2019 Generalized anxiety disorder Establis hed Patient with Bobbi Colon [facility] 07/28/2019 Severe recurrent major depre 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 features Established Patient with Bobbi Colon [facility] 07/28/2019 AUDIT alcohol use disorders identification test was six 07/28/2019 Medical New Patient with Candace Grossman [facility] 07/28/2019 Diabetes Risk Test Score was 0 score 07/28/2019 Medical New Patient with Candacehalley Grossman [facility] 07/28/2019 ZAN-7 score was 21 07/28/2019 Medical Ne w Patient with Candacehalley Grossman [facility] 07/28/2019 PHQ-9: total score was 21 07/28/2019 Med ical New Patient with Candace Grossman [facility] 07/28/2019 Z68.22 - Body mass index (BM I) 22.0-22.9 adult Medical New Patient with Candace Grossman CNP 07/28/2019 Instructions Instructions not supported for this [...] section and content) DATE CREATED AUTHOR 03/26/2018 [facility] DATE CREATED AUTHOR AUTHOR'S ORGANIZ ATION 05/07/2020 [facility] DATE CREATED AUTHOR AUTHOR'S ORGANIZ ATION 02/10/2023 [facility] DATE CREATED AUTHOR AUTHOR'S ORGANIZ ATION 03/28/2023 [facility] DATE CREATED AUTHOR AUTHOR'S ORGANIZ ATION [facility] DATE CREATED AUTHOR AUTHOR'S ORGANIZ ATION 01/14/2024 [facility] DATE CREATED AUTHOR AUTHOR'S ORGANIZ ATION 01/27/2024 [facility] DATE CREATED AUTHOR AUTHOR'S ORGANIZ ATION 02/14/2024 [facility] DATE CREATED AUTHOR AUTHOR'S ORGANIZ ATION 03/17/2024 [facility] dical Specialists [facility] DATE CREATED AUTHOR AUTHOR'S ORGANIZ ATION 03/19/2024 [facility] Evaluations & Outcomes (unre cognized section [...] (HCC) Procedures CONSULT TO MATERNAL MEDI OFFICE/OUTPATIENT [facility] 60 MINUTES Fransico Sharp MD [address] [place] [address] Referral ID Status Reason Start Date Expiration Date V isits Requested Visits Authorized [id number] Closed PCP Requested Referral Auto-Generated Referral 01/04/2024 [...] Active NON STAFF Primary Care Provider Active 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 [employer] Relationship Specialty Start Date End Date Freddie Delgado APRN-CNP PCP - General Nurse Practitioner 07/30/23 Supervisor [employer] Relationship Specialty Start Date End Date Freddie Delgado APRN-CNP PCP - General Nurse Practitioner 07/30/23 Supervisor [employer] Relationship Specialty Start Date End Date Freddie Delgado APRN-CNP PCP - General Nurse Practitioner 07/30/23 Supervisor [employer] Relationship Specialty Start Date End Date Freddie Delgado APRN-CNP PCP - General Nurse Practitioner 07/30/23 Supervisor [employer] Relationship Specialty Start Date End Date [facility] PCP - General Nurse Practitioner 07/30/23 Supervisor [employer] Relationship Specialty Start Date End Date Freddie Delgado [facility] PCP - General Nurse Practitioner 07/30/23 Supervisor [employer] Relationship Specialty Start Date End Date Freddie Delgado [facility] PCP - General Nurse Practitioner 07/30/23 Supervisor [employer] Relationship Specialty Start Date End Date Delgado Freddie [address] [place] [address] PCP - General Family Medicine 12/19/23 Supervisor [employer] Relationship Specialty Start Date End Date Freddie Delgado [address] [place] [address] PCP - General Family Medicine 12/19/23 Supervisor [employer] Relationship Specialty Start Date End Date Freddie Delgado [address] [place] [address] PCP - General Family Medicine 12/19/23 Supervisor [employer] Relationship Specialty Start Date End Date DelgadoKelli tiwarindra [address] [place] [address] PCP - General Family Medicine 12/19/23 Supervisor [employer] Relationship Specialty Start Date End Date DelgadoFreddie rea [address] [place] [address] PCP - General Family Medicine 12/19/23 Supervisor [employer] Relationship Specialty Start Date End Date Freddie Delgado [address] [place] [address] PCP - General Family Medicine 12/19/23 Supervisor [employer] Relationship Specialty Start Date End Date Freddie Delgado [address] [place] [address] PCP - General Family Medicine 12/19/23 Supervisor [employer] Relationship Specialty Start Date End Date Freddie Delgado [address] [place] [address] PCP - General Family Medicine 12/19/23 Supervisor [employer] Relationship Specialty Start Date End Date Freddie Delgado [address] [place] [address] PCP - General Family Medicine 12/19/23 Supervisor [employer] Relationship Specialty Start Date End Date Freddie Delgado [address] [place] [address] PCP - General Family Medicine 12/19/23 Supervisor [employer] Relationship Specialty Start Date End Date Freddie Delgado [address] [place] [address] PCP - General Family Medicine 12/19/23 Supervisor [employer] Relationship Specialty Start Date End Date Freddie Delgado [address] [place] [address] PCP - General Family Medicine 12/19/23 Supervisor [employer] Relationship Specialty Start Date End Date Freddie Delgado CNP [address] [place] [address] PCP - General Family Medicine 12/19/23 Supervisor [employer] Relationship Specialty Start Date End Date Freddie Delgado CNP [address] [place] [address] PCP - General Family Medicine 12/19/23 Supervisor [employer] Relationship Specialty Start Date End Date Freddie Delgado CNP [address] [place] [address] PCP - General Family Medicine 12/19/23 Supervisor [employer] Relationship Specialty Start Date End Date Freddie Delgado CNP [address] [place] [address] PCP - General Family Medicine 12/19/23 Goals [...] or prosecute any alcohol or drug abuse patient.[facility] Health AdministrationIn the event this information is protected by the Federal Confidentiality of Alcohol and Drug Abuse Patient Records regulations: The Federal rules restrict any use of the information to criminally investigate or prosecute any alcohol or drug abuse patient.[facility] Health AdministrationIn the event this information is protected by the Federal Confidentiality of Alcohol and Drug Abuse Patient Records regulations: The Federal rules restrict any use of the information to criminally investigate or prosecute any alcohol or drug abuse patient.[facility] AdministrationIn the event this information is protected by the Federal Confidentiality of Alcohol and Drug Abuse Patient Records regulations: The Federal rules restrict any use of the information to criminally investigate or prosecute any alcohol or drug abuse patient.[facility] Health AdministrationIn the event this information is protected by the Federal Confidentiality of Alcohol and Drug Abuse Patient Records regulations: The Federal rules restrict any use of the information to criminally investigate or prosecute any alcohol or drug abuse patient.[facility] AdministrationIn the event this information is protected by the Federal Confidentiality of Alcohol and Drug Abuse Patient Records regulations: The Federal rules restrict any use of the information to criminally investigate or prosecute any alcohol or drug abuse patient.[facility] AdministrationIn the event this information is protected by the Federal Confidentiality of Alcohol and Drug Abuse Patient Records regulations: The Federal rules restrict any use of the information to criminally investigate or prosecute any alcohol or drug abuse patient.[facility] Health AdministrationIn the event this information is protected by the Federal Confidentiality of Alcohol and Drug Abuse Patient Records regulations: The Federal rules restrict any use of the information to criminally investigate or prosecute any alcohol or drug abuse patient.[facility] AdministrationIn the event this information is protected by the Federal Confidentiality of Alcohol and Drug Abuse Patient Records regulations: The Federal rules restrict any use of the information to criminally investigate or prosecute any alcohol or drug abuse patient.[facility] Health AdministrationIn the event this information is protected by the Federal Confidentiality of Alcohol and Drug Abuse Patient Records regulations: The Federal rules restrict any use of the information to criminally investigate or prosecute any alcohol or drug abuse patient.[facility] AdministrationIn the event this information is protected by the Federal Confidentiality of Alcohol and Drug Abuse Patient Records regulations: The Federal rules restrict any use of the information to criminally investigate or prosecute any alcohol or drug abuse patient.[facility] Health AdministrationIn the event this information is protected by the Federal Confidentiality of Alcohol and Drug Abuse Patient Records regulations: The Federal rules restrict any use of the information to criminally investigate or prosecute any alcohol or drug abuse patient.[facility] AdministrationIn the event this information is protected by the Federal Confidentiality of Alcohol and Drug Abuse Patient Records regulations: The Federal rules restrict any use of the information to criminally investigate or prosecute any alcohol or drug abuse patient.[facility] AdministrationIn the event this information is protected by the Federal Confidentiality of Alcohol and Drug Abuse Patient Records regulations: The Federal rules restrict any use of the information to criminally investigate or prosecute any alcohol or drug abuse patient.[facility] AdministrationIn the event this information is protected by the Federal Confidentiality of Alcohol and Drug Abuse Patient Records regulations: The Federal rules restrict any use of the information to criminally investigate or prosecute any alcohol or drug abuse patient.[facility] AdministrationIn the event this information is protected by the Federal Confidentiality of Alcohol and Drug Abuse Patient Records regulations: The Federal rules restrict any use of the information to criminally investigate or prosecute any alcohol or drug abuse patient.[facility] AdministrationIn the event this information is protected by the Federal Confidentiality of Alcohol and Drug Abuse Patient Records regulations: The Federal rules restrict any use of the information to criminally investigate or prosecute any alcohol or drug abuse patient.[facility] AdministrationIn the event this information is protected by the Federal Confidentiality of Alcohol and Drug Abuse Patient Records regulations: The Federal rules restrict any use of the information to criminally investigate or prosecute any alcohol or drug abuse patient.[facility] FOR RECORDS PERTAINING TO PATIENTS WHO ARE [...] BE BASED ON THE PRIMARY CLINICAL RECORDS. [facility] [employer] [facility]. provides no warranty or guarantee of the accuracy or completeness of information in this document."
[2024-03-20 15:00] VITALS: BP 122/69; PULSE 86
== END 2024-03-20 15:25 | disposition home or self-care (01) ==
LOC: FBCO 06:59 → FBC 14:54
PROVIDERS: Visit Provider Obstetrics & Gynecology
DX: O36.63X0 Maternal care for excessive fetal growth, third trimester, not applicable or unspecified (principal)
CPT/HCPCS: 59025

== ENCOUNTER 2024-03-24 22:49 | Inpatient (IN) | payer MEDICAID, SELFPAY ==
--- OUTSIDE RECORDS SUMMARY | 2024-03-24 22:55 | XMS_ITS | CCD ---
Author Organization [facility] Care Team Providers Care Multifocal Button Generator Name Role Phone Gehlot, Upender Unavailable Unavailable Gehlot, Upender Unavailable Unavailable KAMILA CERNA Unavailable Unavailable Sally Morejon Primary Care Provider [phone] Unavailable Primary Care Provider UnavailCANDACE Dubon Referring Unavailable Sally Morejon Primary Care Provider Sally Morejon CNP Primary Care Provider Shayla Valle Unavailable JUMANA Valle Attending Provider AICHHOLZ, GOVERNMENT AFFAIRS DIRECTOR VITO Admitting Unavailable AICHHOLZ, GOVERNMENT AFFAIRS DIRECTOR VITO Attending Unavailable AICHHOLZ, GOVERNMENT AFFAIRS DIRECTOR VITO Primary Care Unavailable AICHHOLZ, GOVERNMENT AFFAIRS DIRECTOR VITO Consulting Unavailable NORMA ., DR JIN Admitting Unavailable NORMA ., DR JIN Attending Unavailable AICHHOLZ, GOVERNMENT AFFAIRS DIRECTOR VITO Primary Care Unavailable NORMA ., DR JIN Consulting Unavailable RONAK, DR BOBBI Bianchi Consulting Unavailable NORMA ., DR JIN Admitting Unavailable NORMA ., DR JIN Attending Unavailable AICHHOLZ, GOVERNMENT AFFAIRS DIRECTOR VITO Primary Care Unavailable NORMA ., DR JIN Consulting Unavailable DR BOBBI SIMONS Consulting Unavailable NORMA ., DR JIN Admitting Unavailable NORMA ., DR JIN Attending Unavailable AICHHOLZ, GOVERNMENT AFFAIRS DIRECTOR VITO Primary Care Unavailable NORMA ., DR JIN Consulting Unavailable AICHHOLZ, GOVERNMENT AFFAIRS DIRECTOR VITO Admitting Unavailable AICHHOLZ, GOVERNMENT AFFAIRS DIRECTOR VITO Attending Unavailable AICHHOLZ, GOVERNMENT AFFAIRS DIRECTOR VITO Primary Care Unavailable NORMA ., DR JIN Admitting Unavailable NORMA ., DR JIN Attending Unavailable AICHHOLZ, GOVERNMENT AFFAIRS DIRECTOR VITO Primary Care Unavailable NORMA ., DR JIN Consulting Unavailable NORMA ., DR JIN Admitting Unavailable NORMA ., DR JIN Attending Unavailable AICHHOLZ, GOVERNMENT AFFAIRS DIRECTOR VITO Primary Care Unavailable NORMA ., DR JIN Consulting Unavailable AGUBOSIM, WADE Consulting Unavailable SOFI XIAO Consulting Unavailable NORMA ., DR JIN Admitting Unavailable NORMA ., DR JIN Attending Unavailable AICHHOLZ, GOVERNMENT AFFAIRS DIRECTOR VITO Primary Care Unavailable NORMA ., DR JIN Consulting Unavailable AICHHOLZ, GOVERNMENT AFFAIRS DIRECTOR VITO Admitting Unavailable AICHHOLZ, GOVERNMENT AFFAIRS DIRECTOR VITO Attending Unavailable AICHHOLZ, GOVERNMENT AFFAIRS DIRECTOR VITO Primary Care Unavailable WEST, DR JO-ANN Nicolas Consulting Unavailable AICHHOLZ, GOVERNMENT AFFAIRS DIRECTOR VITO Consulting Unavailable Yoel Jarrett Unavailable MD Karan Romero Attending Provider NON STAFF Primary Care Provider Unavailabl e NON STAFF Primary Care Unavailable Karan Romero Attending Unavailabl Karan Osuna Admitting Unavailabl e Tori, Shayla Attending Unavailable Tori, Shayla Admitting Unavailable Delgado ZIGZAG ELASTIC ATTACHER[facility], Freddie Primary Care Provider Unavailable Primary Care Provider Unavailabl e DELGADO, FREDDIE Attending Unavailable DELGADO, FREDDIE Referring Unavailable DELGADO, FREDDIE Primary Care Unavailable ROJAS, FIDENCIO Attending Unavailable DELGADO, FREDDIE Referring Unavailable DELGADO, FREDDIE Primary Care Unavailable Delgado, Freddie Primary Care Provider [phone] GURJIT ROBIN Attending Unavailable DELGADO, FREDDIE Referring Unavailable DELGADO, FREDDIE Primary Care Unavailable Delgado, Freddie Primary Care Provider [phone] BRANDI, FIDENCIO Attending Unavailable NORMA, ELIAZAR R [...] Unavailable DELGADO, FREDDIE Primary Care Unavailable Delgado GOVERNMENT AFFAIRS DIRECTOR, Freddie Adrian Primary Care Provid er [...] Penicillins Drug Allergy 2 Unknown [facility] (13 sources) Penicillins (Antibiotic) Allergy to substance 9 [facility] Work Phone: (8 sources) busPIRone Drug Allergy 0 BuSpar [facility] Work Phone: (6 sources) Penicillin G Drug Allergy 3 [facility] Work Phone: (1 source) Penicillin Drug Allergy [facility] (6 sources) Penicillins; Translations: [PENICILLINS] Drug allergy (disorder) 2 [facility] (20 sources) Penicillins Propensity to adverse reactions to drug 2 Other (See Comments), Unknown [facility] (3 sources) Penicillins Drug Allergy 2 Unknown [facility] Medications Current Medications Medication Drug Class(es) Dates Sig (Normalized) Sig (Original) [id number] 200 actuat albuterol 0.09 mg/actuat metered dose [...] Take 400 mg by mouth . nystatin 101076 unt/ml oral suspension (1 source) Polyene Antifungal Start: 05-29-2023 take 5 mL by mouth three times daily Nystatin [id number] UNIT/ML 5 ml Mouth/Throat 3 times a [...] 16, 2023 12:00am omeprazole magne sium (ACID BEAD MACHINE OPERATOR, OMEPRAZOLE, ORAL) Take by mouth as directed. [...] above: Take by mouth as dir ected. snbngarf17-sprd-wxjtr- omega3 29-1-400 mg combo pack,tablet & capDR (9 sources) oozcpwgt55-nbtb- folic -omega3 29-1-400 mg combo pack,tablet & [...] mg/ml oral solution (4 sources) Phenothiazine, Uncompetitive Z-xqypgf-Q-aspartat e Receptor Antagonist, Sigma-1 Agonist Start: 01-08-2020 [...] SLIDE REVI EWon 03-17-2024 CASE REPORT Normal [facility] Comment on above: Order Comment: Speci men Type: FORMALIN-FIXED PARAFFIN-EMBEDDED TISSUE SPECIMENOrdering Facility: Outside Review Address: , , Result Comment: Surg [facility] Pathology Report Case: [id number] Authorizing Provider: Fransico Sharp MD Collected: 03/17/2024 09:09 AM Ordering Location: [facility] Received: 03/17/2024 09:08 AM [facility] Pathologist: Ankita Feldman MD Specimen: Slide(s), 5 SLIDES, [id number] Performed By: #### L [id number] ####[facility] LABCLIA [id number] [place] [address] [place] DIAGNOSIS COMMENT Normal [facility] Comment on above: Order Comment: Speci men [...] the referring institution were reviewed at the [facility]. The SOX10 stain highlights the aforementioned compound [...] for further characterization. Performed By: #### L [id number] ####[facility] LABCLIA [id number] [address] FINAL DIAGNOSIS Normal [facility] Comment on above: Order Comment: Speci men Type: FORMALIN-FIXED PARAFFIN-EMBEDDED TISSUE SPECIMENOrdering Facility: AP Outside Review Address: , , Result Comment: Skin , left upper cutaneous lip, shave biopsy: - Melanoma (see comment and synoptic report). MANJU/DARYN/chuy/03/17/2024 Performed By: #### L [id number] ####[facility] LABCLIA [id number] [address] FINAL PERFORMING LAB Normal [facility] Comment on above: Order Comment: Speci men Type: FORMALIN-FIXED PARAFFIN-EMBEDDED TISSUE SPECIMENOrdering Facility: AP Outside Review Address: , , Result Comment: Diag nostic interpretation performed at [facility], [address] [place], [place] [address] CLIA# [id number] Possum Trapper: Ac Duval M.D. Performed By: #### L [id number] ####[facility] LABCLIA [id number] [address] [address] [place] SYNOPTIC REPORT Normal [facility] Comment on above: Order Comment: Speci [...] pT Category: pT1a Performed By: #### L [id number] ####[facility] [id number] [address] [address] [facility] [place] Alina 03-11-2024 PRADEEPN Telephone (PLASMN) JOSSJuvenalVY ([id number]) 1990 F Date Time Provider Department 03/11/24 [...] mg by mouth. - omeprazole magnesium (ACID BEAD MACHINE OPERATOR, OMEPRAZOLE, ORAL) Take by mouth as directed. [...] Encounter Status:Closed by WARD ORTA on 03/11/24 [facility] 03-04-2024 [facility] Telephone (HEMASA) VY MCKEON ([id number]) 1990 F Date Time Provider Department 03/04/24 [...] mg by mouth. - omeprazole magnesium (ACID BEAD MACHINE OPERATOR, OMEPRAZOLE, ORAL) Take by mouth as directed. [...] Status:Closed by DAISY MURRAY on 03/05/24 Normal [facility] CNPNon 02-29-2024 CNPN Telephone (PLASMN) VY MCKEON ([id number]) 1990 F Date Time Provider Department 02/29/24 [...] mg by mouth. - omeprazole magnesium (ACID BEAD MACHINE OPERATOR, OMEPRAZOLE, ORAL) Take by mouth as directed. [...] Encounter Status:Closed by SURJIT GRIGGS on 03/03/24 [facility]20[facility] ([facility]AR[facility] VY MCKEON ([id number]) 1990 F Date Time Provider Department 02/26/24 [...] mg by mouth. - omeprazole magnesium (ACID BEAD MACHINE OPERATOR, OMEPRAZOLE, ORAL) Take by mouth as directed. [...] Status:Closed by SYLVIA ALCALA on 02/26/24 Normal [facility] CT CHEST W IVCONon CT CHEST [...] abdomen: Visualized upper abdomen is grossly unremarkable. Retail Cashier Associate (topogram) images: Unremarkable. IMPRESSION: Focal groundglass opacity [...] any questions regarding this interpretation, please call [phone]. If you are unable to reach us at the number above, please feel free to contact [facility] eRadiology at [phone]. [id number] Normal [facility] CT NECK SOFT TISSUE W IVCONo [...] amalgam. Parotid and submandibular spaces are normal. Project Control Officer spaces appear normal. Infrahyoid Neck: Hypopharynx, larynx, [...] any questions regarding this interpretation, please call [phone]. If you are unable to reach us at the number above, please feel free to contact [facility] eRadiology at [phone]. [id number] Normal [facility] CBC W Auto Differential pane l (Bld)on 02-20-2024 Basophils (Bld) [#/Vol] 0.03 10*3/uL Normal <0.11 [facility] Comment on above: Order Comment: Speci men Type: BLOOD SPECIMENOrdering Facility: [facility] Address: [address] [place] [address] Performed By: #### 5 7021-8 ####[facility] LABCLIA [id number] [place] [address] Basophils/100 WBC (Bld) 0.3 % Normal [facility] Comment on above: Order Comment: Speci men Type: BLOOD SPECIMENOrdering Facility: [facility] Address: [address] [place] [address] Performed By: #### 5 7021-8 ####[facility] LABCLIA [id number] [place] [address] Differential cell count method Nom (Bld) Auto Normal [facility] Comment on above: Order Comment: Speci men Type: BLOOD SPECIMENOrdering Facility: [facility] Address: [address] [place] [address] Performed By: #### 5 7021-8 ####[facility] LABCLIA [id number] [place] [address] Eosinophils (Bld) [#/Vol] 0.08 10*3/uL Normal <0.46 [facility] Comment on above: Order Comment: Speci men Type: BLOOD SPECIMENOrdering Facility: [facility] Address: [address] [place] [address] Performed By: #### 5 7021-8 ####[facility] LABCLIA [id number] [place] [address] Eosinophils/100 WBC (Bld) 0.8 % Normal [facility] Comment on above: Order Comment: Speci men Type: BLOOD SPECIMENOrdering Facility: [facility] Address: [address] [place] [address] Performed By: #### 5 7021-8 ####[facility] LABCLIA [id number] [place] [address] Erythrocyte distribution width (RBC) [Ratio] 13.5 % Normal 11.5-15.0 [facility] Comment on above: Order Comment: Speci men Type: BLOOD SPECIMENOrdering Facility: [facility] Address: [address] [place] [address] Performed By: #### 5 7021-8 ####[facility] LABCLIA [id number] [place] [address] Hematocrit (Bld) [Volume fraction] 33.4 % Low 36.0-46.0 [facility] Comment on above: Order Comment: Speci men Type: BLOOD SPECIMENOrdering Facility: [facility] Address: [address] [place] [address] Performed By: #### 5 7021-8 ####[facility] LABCLIA [id number] [place] [address] Hemoglobin (Bld) [Mass/Vol] 11.2 g/dL Low 11.5-15.5 [facility] Comment on above: Order Comment: Speci men Type: BLOOD SPECIMENOrdering Facility: [facility] Address: [address] [place] [address] Performed By: #### 5 7021-8 ####[facility] LABCLIA [id number] [place] [address] Immature granulocytes (Bld) [#/Vol] 0.07 10*3/uL Normal <0.10 [facility] Comment on above: Order Comment: Speci men Type: BLOOD SPECIMENOrdering Facility: [facility] Address: [address] [place] [address] Performed By: #### 5 7021-8 ####[facility] LABCLIA [id number] [place] [address] Immature granulocytes/100 WBC (Bld) 0.7 % Normal [facility] Comment on above: Order Comment: Speci men Type: BLOOD SPECIMENOrdering Facility: [facility] Address: [address] [place] [address] Performed By: #### 5 7021-8 ####[facility] LABCLIA [id number] [place] [address] Lymphocytes (Bld) [#/Vol] 1.13 10*3/uL Normal 1.00-4.00 [facility] Comment on above: Order Comment: Speci men Type: BLOOD SPECIMENOrdering Facility: [facility] Address: [address] [place] [address] Performed By: #### 5 7021-8 ####[facility] LABCLIA [id number] [place] [address] Lymphocytes/100 WBC (Bld) 10.7 % Normal [facility] Comment on above: Order Comment: Speci men Type: BLOOD SPECIMENOrdering Facility: [facility] Address: [address] [place] [address] Performed By: #### 5 7021-8 ####[facility] LABCLIA [id number] [place] [address] MCH (RBC) [Entitic mass] 29.5 pg Normal 26.0-34.0 [facility] Comment on above: Order Comment: Speci men Type: BLOOD SPECIMENOrdering Facility: [facility] Address: [address] [place] [address] Performed By: #### 5 7021-8 ####[facility] LABCLIA [id number] [place] [address] MCHC (RBC) [Mass/Vol] 33.5 g/dL Normal 30.5-36.0 [facility] Comment on above: Order Comment: Speci men Type: BLOOD SPECIMENOrdering Facility: [facility] Address: [address] [place] [address] Performed By: #### 5 7021-8 ####[facility] LABCLIA [id number] [place] [address] MCV (RBC) [Entitic vol] 87.9 fL Normal 80.0-100.0 [facility] Comment on above: Order Comment: Speci men Type: BLOOD SPECIMENOrdering Facility: [facility] Address: [address] [place] [address] Performed By: #### 5 7021-8 ####[facility] LABCLIA [id number] [place] [address] Monocytes (Bld) [#/Vol] 0.52 10*3/uL Normal <0.87 [facility] Comment on above: Order Comment: Speci men Type: BLOOD SPECIMENOrdering Facility: [facility] Address: [address] [place] [address] Performed By: #### 5 7021-8 ####[facility] LABCLIA [id number] [place] [address] Monocytes/100 WBC (Bld) 4.9 % Normal [facility] Comment on above: Order Comment: Speci men Type: BLOOD SPECIMENOrdering Facility: [facility] Address: [address] [place] [address] Performed By: #### 5 7021-8 ####[facility] LABCLIA [id number] [place] [address] Neutrophils (Bld) [#/Vol] 8.76 10*3/uL High 1.45-7.50 [facility] Comment on above: Order Comment: Speci men Type: BLOOD SPECIMENOrdering Facility: [facility] Address: [address] [place] [address] Performed By: #### 5 7021-8 ####[facility] LABCLIA [id number] [place] [address] Neutrophils/100 WBC (Bld) 82.6 % Normal [facility] Comment on above: Order Comment: Speci men Type: BLOOD SPECIMENOrdering Facility: [facility] Address: [address] [place] [address] Performed By: #### 5 7021-8 ####[facility] LABCLIA [id number] [place] [address] Nucleated RBC (Bld) [#/Vol] 10*3/uL Normal <0.01 [facility] Comment on above: Order Comment: Speci men Type: BLOOD SPECIMENOrdering Facility: [facility] Address: [address] [place] [address] Performed By: #### 5 7021-8 ####[facility] LABCLIA [id number] [place] [address] Nucleated RBC/100 WBC (Bld) [Ratio] 0.0 /100 WBC Normal [facility] Comment on above: Order Comment: Speci men Type: BLOOD SPECIMENOrdering Facility: [facility] Address: [address] [place] [address] Performed By: #### 5 7021-8 ####[facility] LABCLIA [id number] [place] [address] Platelet mean volume (Bld) [Entitic vol] 10.0 fL Normal 9.0-12.7 [facility] Comment on above: Order Comment: Speci men Type: BLOOD SPECIMENOrdering Facility: [facility] Address: [address] [place] [address] Performed By: #### 5 7021-8 ####[facility] LABCLIA [id number] [place] [address] Platelets (Bld) [#/Vol] 199 10*3/uL Normal 150-400 [facility] Comment on above: Order Comment: Speci men Type: BLOOD SPECIMENOrdering Facility: [facility] Address: [address] [place] [address] Performed By: #### 5 7021-8 ####[facility] LABCLIA [id number] [place] [address] RBC (Bld) [#/Vol] 3.80 10*6/uL Low 3.90-5.20 [facility] Comment on above: Order Comment: Speci men Type: BLOOD SPECIMENOrdering Facility: [facility] Address: [address] [place] [address] Performed By: #### 5 7021-8 ####[facility] LABCLIA [id number] [place] [address] WBC (Bld) [#/Vol] 10.59 10*3/uL Normal 3.70-11.00 [facility] Comment on above: Order Comment: Speci men Type: BLOOD SPECIMENOrdering Facility: [facility] Address: [address] [place] [address] Performed By: #### 5 7021-8 ####[facility] LABCLIA [id number] [place] [address] Comprehensive metabolic 2000 panelon 02-20-2024 Albumin [Mass/Vol] 3.8 g/dL Low 3.9-4.9 [facility] Comment on above: Order Comment: Speci men Type: BLOOD SPECIMENOrdering Facility: [facility] Address: [address] [place] [address] Performed By: #### 2 4323-8, 2532-0 ####[facility] LABCLIA [id number] [place] [address] ALP [Catalytic activity/Vol] 161 U/L High 34-123 [facility] Comment on above: Order Comment: Speci men Type: BLOOD SPECIMENOrdering Facility: [facility] Address: [address] [place] [address] Performed By: #### 2 4323-8, 2532-0 ####[facility] LABCLIA [id number] [place] [address] ALT [Catalytic activity/Vol] 13 U/L Normal 7-38 [facility] Comment on above: Order Comment: Speci men Type: BLOOD SPECIMENOrdering Facility: [facility] Address: [address] [place] [address] Performed By: #### 2 4323-8, 253-0 ####[facility] LABCLIA [id number] [place] [address] Anion gap [Moles/Vol] 10 mmol/L Normal 9-18 [facility] Comment on above: Order Comment: Speci men Type: BLOOD SPECIMENOrdering Facility: [facility] Address: [address] [place] [address] Performed By: #### 2 4323-8, 2531-0 ####[facility] LABCLIA [id number] [place] [address] AST [Catalytic activity/Vol] 21 U/L Normal 13-35 [facility] Comment on above: Order Comment: Speci men Type: BLOOD SPECIMENOrdering Facility: [facility] Address: [address] [place], [place] [address] Performed By: #### 2 4323-8, 2532-0 ####[facility] LABCLIA [id number] [place] [address] Bilirubin [Mass/Vol] 0.2 mg/dL Normal 0.2-1.3 [facility] Comment on above: Order Comment: Speci men Type: BLOOD SPECIMENOrdering Facility: [facility] Address: [address] [place] [address] [place] [address] Performed By: #### 2 432-8, 2531-0 ####[facility] LABCLIA [id number] [place] [address] Calcium [Mass/Vol] 10.1 mg/dL Normal 8.5-10.2 [facility] Comment on above: Order Comment: Speci men Type: BLOOD SPECIMENOrdering Facility: [facility] Address: [address] [place], [place] [address] Performed By: #### 2 4328, 2531-0 ####[facility] LABCLIA [id number] [place] [address] Chloride [Moles/Vol] 103 mmol/L Normal 97-105 [facility] Comment on above: Order Comment: Speci men Type: BLOOD SPECIMENOrdering Facility: [facility] Address: [address] [place] [address] Performed By: #### 2 4328, 2531-0 ####[facility] LABCLIA [id number] [place] [address] CO2 [Moles/Vol] 21 mmol/L Low 22-30 [facility] Comment on above: Order Comment: Speci men Type: BLOOD SPECIMENOrdering Facility: [facility] Address: [address] [place], [place] [address] Performed By: #### 2 4328, 2531-0 ####[facility] LABCLIA [id number] [place] [address] Creatinine [Mass/Vol] 0.61 mg/dL Normal 0.58-0.96 [facility] Comment on above: Order Comment: Speci men Type: BLOOD SPECIMENOrdering Facility: [facility] Address: [address] [place], [place] [address] Performed By: #### 2 4323-8, 2531-0 ####[facility] LABCLIA [id number] [place] [address] Creatinine and Glomerular filtration rate.predicted panel (S/P/Bld) 120 mL/min/1.73m??? Normal >=60 [facility] Comment on above: Order Comment: Kavin childress Type: BLOOD SPECIMENOrdering Facility: [facility] Address: [address] [place] [address] Result Comment: Araseli mated Glomerular Filtration Rate [...] GFR. Performed By: #### 2 4323-8, 0 ####[facility] LABCLIA [id number] [place] [address] Glucose [Mass/Vol] 85 mg/dL Normal 74-99 [facility] Comment on above: Order Comment: Kavin childress Type: BLOOD SPECIMENOrdering Facility: [facility] Address: [address] [place] [address] Result Comment: The [place] [employer] (ADA) provides guidance for cutoff [...] Standards of Medical Care in Diabetes 2016, [place] [employer]. Diabetes Care. 2016.39(Suppl 1). Performed By: #### 2 4323-8, 0 ####[facility] LABCLIA [id number] [place] [address] Potassium [Moles/Vol] 3.9 mmol/L Normal 3.7-5.1 [facility] Comment on above: Order Comment: Speci men Type: BLOOD SPECIMENOrdering Facility: [facility] Address: [address] [place] [address] Performed By: #### 2 4323-8, 2531-0 ####[facility] LABCLIA [id number] [place] [address] Protein [Mass/Vol] 7.2 g/dL Normal 6.3-8.0 [facility] Comment on above: Order Comment: Speci men Type: BLOOD SPECIMENOrdering Facility: [facility] Address: [address] [place] [address] Performed By: #### 2 4323-8, 2531-0 ####[facility] LABCLIA [id number] [place] [address] Sodium [Moles/Vol] 134 mmol/L Low 136-144 [facility] Comment on above: Order Comment: Speci men Type: BLOOD SPECIMENOrdering Facility: [facility] Address: [address] [place] [address] Performed By: #### 2 4323-8, 2531-0 ####[facility] LABCLIA [id number] [place] [address] Urea nitrogen [Mass/Vol] 6 mg/dL Low 7-21 [facility] Comment on above: Order Comment: Speci men Type: BLOOD SPECIMENOrdering Facility: [facility] Address: [address] [place] [address] Performed By: #### 2 4323-8, 2531-0 ####[facility] LABCLIA [id number] [place] [address] LDH SerPl-cCncon 02-20-2024 LDH [Catalytic activity/Vol] 210 U/L Normal 135-214 [facility] Comment on above: Order Comment: Speci men Type: BLOOD SPECIMENOrdering Facility: [facility] Address: [address] [place] [address] Performed By: #### 2 4323-8, 2531-0 ####[facility] LABCLIA [id number] [place] [address] COMPLETE BLOOD COUNTon 01-28 Erythrocyte distribution width (RBC) [Ratio] 13.6 % Normal 11.5-15.0 [facility] Comment on above: Performed By: #### C BC CMP, 0, 3083-10 #### [facility] ([id number]) [address] [place] [address] Hematocrit (Bld) [Volume fraction] 29.4 % Low 35-47 [facility] Comment on above: Performed By: #### C GUI CMP, 0, 3083-10 #### [facility] ([id number]) [address] [place] [address] Hemoglobin (Bld) [Mass/Vol] 10.4 g/dL Low 11.7-15.5 [facility] Comment on above: Performed By: #### C GUI CMP, 0, 3083-10 #### [facility] ([id number]) [address] [place] [address] MCH (RBC) [Entitic mass] 31.0 pg Normal 27-34 [facility] Comment on above: Performed By: #### C BC CMP, 0, 3083-10 #### [facility] ([id number]) [address] [place] [address] MCHC (RBC) [Mass/Vol] 35.3 g/dL Normal 32-36 [facility] Comment on above: Performed By: #### C BC CMP, 0, 3083-10 #### [facility] ([id number]) [address] [place] [address] MCV (RBC) [Entitic vol] 88 fL Normal 80-100 [facility] Comment on above: Performed By: #### Adri MESSER, CMP, 2532-0, 3083-1 #### [facility] ([id number]) [address] [place] [address] Platelet mean volume (Bld) [Entitic vol] 8.1 fL Normal 7-12 [facility] Comment on above: Performed By: #### Adri MESSER, CMP, 2531-0, 3083-1 #### [facility] ([id number]) [address] [place] [address] Platelets (Bld) [#/Vol] 205 10*3/uL Normal 150-450 [facility] Comment on above: Performed By: #### Adri MESSER, CMP, 0, 3083-10 #### [facility] ([id number]) [address] [place] [address] 14799 RBC COUNT 3.34 X10E12/L Low 3.80-5.20 [facility] Comment on above: Performed By: #### Adri MESSER, CMP, 0, 3083- #### [facility] ([id number]) [address] [place] [address]322 WBC (Bld) [#/Vol] 8.2 10*3/uL Normal 4.0-11.0 [facility] Comment on above: Performed By: #### Adri MESSER, CMP, 2531-0, 3083- #### [facility] ([id number]) [address] [place] [address] COMPREHENSIVE METABOLIC PANE Joel 01-29-2024 Albumin [Mass/Vol] 2.8 g/dL Low 3.2-5.3 [facility] Comment on above: Performed By: #### Adri BC, CMP, 2532-0, 3083-1 #### [facility] ([id number]) [address] [place] [address] ALP [Catalytic activity/Vol] 103 U/L Normal 39-130 [facility] Comment on above: Performed By: #### C GUI CMP, 2532-0, 3083-1 #### [facility] ([id number]) [address] [place] [address] 51243 ALT [Catalytic activity/Vol] 16 U/L Normal 0-31 [facility] Comment on above: Performed By: #### Adri MESSER, CMP, 2531-0, 3083-10 #### [facility] ([id number]) [address] [place] [address] 86888 Anion gap [Moles/Vol] 9 mmol/L Normal 5-15 [facility] Comment on above: Performed By: #### Adri MESSER CMP, 0, 3083-10 #### [facility] ([id number]) [address] [place] [address] 68363 AST [Catalytic activity/Vol] 18 U/L Normal 0-41 [facility] Comment on above: Performed By: #### Adri MESSER CMP, 2531-0, 3083- #### [facility] ([id number]) [address] [place] [address] 6[address]1 Bilirubin [Mass/Vol] 0.3 mg/dL Normal 0.3-1.2 [facility] Comment on above: Performed By: #### Adri MESSER, CMP, 2531-0, 3083-10 #### [facility] ([id number]) [address] [place] [address] 89375 Calcium [Mass/Vol] 9.2 mg/dL Normal 8.5-10.5 [facility] Comment on above: Performed By: #### Adri BC, CMP, 253-0, 3083- #### [facility] ([id number]) [address] [place] [address] 73255 Chloride [Moles/Vol] 105 mmol/L Normal 98-109 [facility] Comment on above: Performed By: #### C NATASHA MESSER, 2532-0, 3083-1 #### [facility] ([id number]) [address] [place] [address] 51642 CO2 [Moles/Vol] 22 mmol/L Normal 22-32 [facility] Comment on above: Performed By: #### Adri MESSER CMP, 2531-0, 3083-10 #### [facility] ([id number]) [address] [place] [address]6042 Creatinine [Mass/Vol] 0.51 mg/dL Normal 0.40-1.00 [facility] Comment on above: Result Comment: METH OD TRACEABLE TO IDMS STANDARD Performed By: #### Adri MESSER CMP, 0, 3083-10 #### [facility] ([id number]) [address] [place] [address] 18250 eGFR (CKD-EPI) NON-RACE DEPENDENT >90 Normal >59 [facility] Comment on above: Result Comment: Reported eGFR is based on the CKD-EPI 2020 equation that does not use a race coefficient. Performed By: #### Adri MESSER CMP, 0, 3083-10 #### [facility] ([id number]) [address] [place] [address]12 Glucose [Mass/Vol] 96 mg/dL Normal 65-99 [facility] Comment on above: Performed By: #### Adri MESSER CMP, 253-0, 3083-10 #### [facility] ([id number]) [address] [place] [address] 54623 Potassium [Moles/Vol] 4.1 mmol/L Normal 3.5-5.0 [facility] Comment on above: Performed By: #### Adri MESSER CMP, 2532-0, 3083-1 #### [facility] ([id number]) [address] [place] [address] [place] [address] Protein [Mass/Vol] 6.5 g/dL Normal 6.0-8.0 [facility] Comment on above: Performed By: #### C GUI [facility], 2532-0, 3084-1 #### [facility] ([id number]) [address] [place] [address] 38728 Sodium [Moles/Vol] 136 mmol/L Normal 134-146 [facility] Comment on above: Performed By: #### C GUI [facility], 2532-0, 3084-1 #### [facility] ([id number]) [address] [place] [address] 75917 Urea nitrogen [Mass/Vol] 5 mg/dL Normal 5-23 [facility] Comment on above: Performed By: #### C GUI [facility], 0, 3083-1 #### [facility] ([id number]) [address] [place] [address]32[address] LDH [Catalytic activity/Vol] on 01-29-2024 LDH 128 U/L Normal 100-235 [facility] Comment on above: Performed By: #### C GUI [facility], 2-0, 308-1 #### [facility] ([id number]) [address] [place] [address] 61252 PROTEIN CREAT RATIOon 2023 RANDOM URINE PROTEIN 30 mg/L Normal <120 [facility] Comment on above: Performed By: #### U PCR #### [facility] ([id number]) [address] [place] [address] 93762 U/PRO/PTA RATIO CALC 0.12 Normal <0.2 [facility] Comment on above: Result Comment: Neph rotic Syndrome is associated with ratios >3.5 Performed By: #### U PCR #### [facility] ([id number]) [address] [place] [address] 88480 URINE CREATININE,RDM 25.84 mg/dL Normal [facility] Comment on above: Performed By: #### U PCR #### [facility] ([id number]) [address] [place] [address] 96902 URIC ACIDon 01-29-2024 Urate [Mass/Vol] 4.1 mg/dL Normal 2.6-7.2 [facility] Comment on above: Performed By: #### C BC, CMP, 2532-0, 3084-1 #### [facility] ([id number]) [address] [place] [address], [place] [address] CNPNon 01-25-2024 CNPN Telephone (PLASMN) VY MCKEON ([id number]) 1990 F Date Time Provider Department 01/25/24 [...] mg by mouth. - omeprazole magnesium (ACID BEAD MACHINE OPERATOR, OMEPRAZOLE, ORAL) Take by mouth as directed. [...] Encounter Status:Closed [facility] (HEMASA) VY MCKEON ([id number]) 1990 F Date Time Provider Department 01/22/24 [...] [C43.9] Order(s):CT NECK SOFT TISSUE W IVCON [[id number]] Order #: [id number] FUTURE [] iv contrast (will be provided [...] 1 EachRfl: 0 CT CHEST W IVCON [[id number]] Order #: [id number] FUTURE [] iv contrast (will be provided [...] EachRfl: 0 LACTATE DEHYDROGENASE [SQLD6] Order #: [id number] FUTURE COMPLETE BLOOD COUNT AND DIFFERENTIAL [SQCBCDIF] Order #: [id number] FUTURE COMPREHENSIVE METABOLIC PANEL [SQCMP] Order #: [id number] FUTURE Prescriptions as of 01/30/2024 - diphenhydramine [...] mg by mouth. - omeprazole magnesium (ACID BEAD MACHINE OPERATOR, OMEPRAZOLE, ORAL) Take by mouth as directed. [...] In Off (more content not included)... Normal [facility] Telephone (OIF350) VY MCKEON ([id number]) 1990 F Date Time Provider Department 01/22/24 ANA PEOPLES [id number] During your visit today, we recorded the [...] mg by mouth. - omeprazole magnesium (ACID BEAD MACHINE OPERATOR, OMEPRAZOLE, ORAL) Take by mouth as directed. [...] Status:Closed by ANA PEOPLES on 01/22/24 Normal [facility] Examination level ultrasound on 01-21-2024 Indication [...] by U/S 30 w + 4 d CLADUETTE by U/S: 03/27/2024 Assigned: based on the [...] 9 oz EFW by: Hadlock (HC-AC-FL) Extended Blacksmith Assistant 3.1 mm CM 7.6 mm 70% Nicolaides [...] normal LVOT view: normal 3-vessel view: normal 2-gfgxdl-cgmatip view: normal Heart / Thorax Situs: situs [...] Read By: Ana Peoples MD MATERNAL MEDICINE [facility] Radiology Study observation (narrative) [facility]Y [facility] ([id number]) 1990 F Date Time Provider Department 01/18/24 [...] mg by mouth. - omeprazole magnesium (ACID BEAD MACHINE OPERATOR, OMEPRAZOLE, ORAL) Take by mouth as directed. - PNV no.95/ferrous fum/folic ac ( ORAL) Take by mouth as directed. Problem List As Of Date: 01/18/2024 (None) Encounter Status:Closed by JOSE L CROWLEY on 01/18/24 [facility] Alina 01-10-2024 CNPN Telephone (OBGYF2) VY MCKEON ([id number]) 1990 F Date Time Provider Department 01/10/24 HISTORICAL OBGYF2 During your visit today, we recorded the following information about you: Rolo Parada 01/10/2024 9:19 AM Signed [place] msg was sent to patient asking for [...] mg by mouth. - omeprazole magnesium (ACID BEAD MACHINE OPERATOR, OMEPRAZOLE, ORAL) Take by mouth as directed. - PNV no.95/ferrous fum/folic ac ( ORAL) Take by mouth as directed. Problem List As Of Date: 01/10/2024 (None) Encounter Status:Closed by ROLO PARADA on 01/10/24 [facility] Alina 01-09-2024 [facility] Telephone (PLASMN) VY MCKEON ([id number]) 1990 F Date Time Provider Department 01/09/24 FRANSICO SHARP During your visit today, we recorded the following information about you: Fernanda Michael 01/09/2024 9:55 AM Signed Patient called that she is seeing Maternal Med, in her area and was questioning does she need to see one at the [facility]? She is asking for a call.. she is very nervous Surjit Griggs, BRITNEY 01/09/2024 12:42 PM Signed Reached out to patient. Instructions provided to see a maternal medicine specialist within the [facility] per Dr. Sharp. This nurse [...] mg by mouth. - omeprazole magnesium (ACID BEAD MACHINE OPERATOR, OMEPRAZOLE, ORAL) Take by mouth as directed. - PNV no.95/ferrous fum/folic ac ( ORAL) Take by mouth as directed. Problem List As Of Date: 01/09/2024 (None) Encounter Status:Closed by FERNANDA MICHAEL on 01/09/24 Normal [facility] CNOVSPon 01-04-2024 CNOVSP Visit (SP) Office (JESSICA) HALM,VY ([id number]) 1990 F Date Time Provider Department 01/04/24 2:15 PM FRANSICO SHARP During your visit today, we recorded the following information about you: Temperature Pulse Respiration Blood pressure 97.1 degrees 94/minute 20/minute 148/83 Fransico Sharp MD 01/06/2024 9:42 AM Signed DATE: January 03, 2024 CC: New Melanoma Patient Referring Physician: Margarita Kim MD at [facility] [place] HPI: Vy Mckeon is a 33 year [...] 400 mg by mouth. omeprazole magnesium (ACID BEAD MACHINE OPERATOR, OMEPRAZOLE, ORAL) Take by mouth as directed. [...] left upper lip with a variegated pattern, scholarship counselor in the middle with a number of dark spots. The lesion measures 1 cm in diameter. Photos taken, see [facility] LABS: Pathology Report [...] taken and uploaded to chart today via [employer] - Pathology re-read to be obtained - Surgical plan is for resection of left upper lip melano (more content not included)... Normal [facility] CBC W Auto Differential pane l (Bld)on 12-26-2023 Basophils (Bld) [#/Vol] 0.03 10*3/uL Normal <0.11 [facility] Comment on above: Order Comment: Speci men Type: BLOOD SPECIMENOrdering Facility: [facility] Address: [address] [place] [address] Performed By: #### 5 7021-8 ####[facility] LABCLIA [id number] [place] [address] Basophils/100 WBC (Bld) 0.3 % Normal [facility] Comment on above: Order Comment: Speci men Type: BLOOD SPECIMENOrdering Facility: [facility] Address: [address] [place] [address] Performed By: #### 5 7021-8 ####[facility] LABCLIA [id number] [place] [address] Differential cell count method Nom (Bld) Auto Normal [facility] Comment on above: Order Comment: Speci men Type: BLOOD SPECIMENOrdering Facility: [facility] Address: [address] [place] [address] Performed By: #### 5 7021-8 ####[facility] LABCLIA [id number] [place] [address] Eosinophils (Bld) [#/Vol] 0.15 10*3/uL Normal <0.46 [facility] Comment on above: Order Comment: Speci men Type: BLOOD SPECIMENOrdering Facility: [facility] Address: [address] [place] [address] Performed By: #### 5 7021-8 ####[facility] LABCLIA [id number] [place] [address] Eosinophils/100 WBC (Bld) 1.5 % Normal [facility] Comment on above: Order Comment: Speci men Type: BLOOD SPECIMENOrdering Facility: [facility] Address: [address] [place] [address] Performed By: #### 5 7021-8 ####[facility] LABCLIA [id number] [place] [address] Erythrocyte distribution width (RBC) [Ratio] 13.5 % Normal 11.5-15.0 [facility] Comment on above: Order Comment: Speci men Type: BLOOD SPECIMENOrdering Facility: [facility] Address: [address] [place] [address] Performed By: #### 5 7021-8 ####[facility] LABCLIA [id number] [place] [address] Hematocrit (Bld) [Volume fraction] 35.5 % Low 36.0-46.0 [facility] Comment on above: Order Comment: Speci men Type: BLOOD SPECIMENOrdering Facility: [facility] Address: [address] [place] [address] Performed By: #### 5 7021-8 ####[facility] LABCLIA [id number] [place] [address] Hemoglobin (Bld) [Mass/Vol] 12.0 g/dL Normal 11.5-15.5 [facility] Comment on above: Order Comment: Speci men Type: BLOOD SPECIMENOrdering Facility: [facility] Address: [address] [place] [address] Performed By: #### 5 7021-8 ####[facility] LABCLIA [id number] [place] [address] Immature granulocytes (Bld) [#/Vol] 0.06 10*3/uL Normal <0.10 [facility] Comment on above: Order Comment: Speci men Type: BLOOD SPECIMENOrdering Facility: [facility] Address: [address] [place] [address] Performed By: #### 5 7021-8 ####[facility] LABCLIA [id number] [place] [address] Immature granulocytes/100 WBC (Bld) 0.6 % Normal [facility] Comment on above: Order Comment: Speci men Type: BLOOD SPECIMENOrdering Facility: [facility] Address: [address] [place] [address] Performed By: #### 5 7021-8 ####[facility] LABCLIA [id number] [place] [address] Lymphocytes (Bld) [#/Vol] 1.46 10*3/uL Normal 1.00-4.00 [facility] Comment on above: Order Comment: Speci men Type: BLOOD SPECIMENOrdering Facility: [facility] Address: [address] [place] [address] Performed By: #### 5 7021-8 ####[facility] LABCLIA [id number] [place] [address] Lymphocytes/100 WBC (Bld) 15.0 % Normal [facility] Comment on above: Order Comment: Speci men Type: BLOOD SPECIMENOrdering Facility: [facility] Address: [address] [place] [address] Performed By: #### 5 7021-8 ####[facility] LABCLIA [id number] [place] [address] MCH (RBC) [Entitic mass] 30.1 pg Normal 26.0-34.0 [facility] Comment on above: Order Comment: Speci men Type: BLOOD SPECIMENOrdering Facility: [facility] Address: [address] [place] [address] Performed By: #### 5 7021-8 ####[facility] LABIA [id number] [place] [address] MCHC (RBC) [Mass/Vol] 33.8 g/dL Normal 30.5-36.0 [facility] Comment on above: Order Comment: Speci men Type: BLOOD SPECIMENOrdering Facility: [facility] Address: [address] [place] [address] Performed By: #### 5 7021-8 ####[facility] LABIA [id number] [place] [address] MCV (RBC) [Entitic vol] 89.0 fL Normal 80.0-100.0 [facility] Comment on above: Order Comment: Speci men Type: BLOOD SPECIMENOrdering Facility: [facility] Address: [address] [place] [address] Performed By: #### 5 7021-8 ####[facility] LABIA [id number] [place] [address] Monocytes (Bld) [#/Vol] 0.50 10*3/uL Normal <0.87 [facility] Comment on above: Order Comment: Speci men Type: BLOOD SPECIMENOrdering Facility: [facility] Address: [address] [place] [address] Performed By: #### 5 7021-8 ####[facility] LABIA [id number] [place] [address] Monocytes/100 WBC (Bld) 5.1 % Normal [facility] Comment on above: Order Comment: Speci men Type: BLOOD SPECIMENOrdering Facility: [facility] Address: [address] [place] [address] Performed By: #### 5 7021-8 ####[facility] LABIA [id number] [place] [address] Neutrophils (Bld) [#/Vol] 7.52 10*3/uL High 1.45-7.50 [facility] Comment on above: Order Comment: Speci men Type: BLOOD SPECIMENOrdering Facility: [facility] Address: [address] [place] [address] Performed By: #### 5 7021-8 ####[facility] LABIA [id number] [place] [address] Neutrophils/100 WBC (Bld) 77.5 % Normal [facility] Comment on above: Order Comment: Speci men Type: BLOOD SPECIMENOrdering Facility: [facility] Address: [address] [place] [address] Performed By: #### 5 7021-8 ####[facility] LABCLIA [id number] [place] [address] Nucleated RBC (Bld) [#/Vol] 10*3/uL Normal <0.01 [facility] Comment on above: Order Comment: Speci men Type: BLOOD SPECIMENOrdering Facility: [facility] Address: [address] [place] [address] Performed By: #### 5 7021-8 ####[facility] LABCLIA [id number] [place] [address] Nucleated RBC/100 WBC (Bld) [Ratio] 0.0 /100 WBC Normal [facility] Comment on above: Order Comment: Speci men Type: BLOOD SPECIMENOrdering Facility: [facility] Address: [address] [place] [address] Performed By: #### 5 7021-8 ####[facility] LABCLIA [id number] [place] [address] Platelet mean volume (Bld) [Entitic vol] 10.1 fL Normal 9.0-12.7 [facility] Comment on above: Order Comment: Speci men Type: BLOOD SPECIMENOrdering Facility: [facility] Address: [address] [place] [address] Performed By: #### 5 7021-8 ####[facility] LABCLIA [id number] [place] [address] Platelets (Bld) [#/Vol] 224 10*3/uL Normal 150-400 [facility] Comment on above: Order Comment: Speci men Type: BLOOD SPECIMENOrdering Facility: [facility] Address: [address] [place] [address] Performed By: #### 5 7021-8 ####[facility] LABCLIA [id number] [place] [address] RBC (Bld) [#/Vol] 3.99 10*6/uL Normal 3.90-5.20 [facility] Comment on above: Order Comment: Speci men Type: BLOOD SPECIMENOrdering Facility: [facility] Address: [address] [place] [address] Performed By: #### 5 7021-8 ####[facility] LABIA [id number] [place] [address] WBC (Bld) [#/Vol] 9.72 10*3/uL Normal 3.70-11.00 [facility] Comment on above: Order Comment: Speci men Type: BLOOD SPECIMENOrdering Facility: [facility] Address: [address] [place] [address] Performed By: #### 5 7021-8 ####[facility] LABIA [id number] [place] [address] CNOVSPon 12-26-2023 [facility] Visit (SP) Office (HEMASA) VY MCKEON ([id number]) 1990 F Date Time Provider Department 12/26/23 3:30 PM USMAN GOLDBERG During your visit today, we recorded the following information about you: Temperature Pulse Respiration Blood pressure 97.3 degrees 87/minute 16/minute 134/74 Weight Height Last Period 86.1 kg 1.702 m 06/24/23 Usman Goldberg MD 12/27/2023 12:46 PM Signed NAME: Vy Mckeon CLINIC NO.: [id number] DATE OF SERVICE: December 26, 2023 (Krystal) [...] magnesium (ACID (more content not included)... Normal [facility] Comprehensive metabolic 2000 panelon 12-26-2023 Albumin [Mass/Vol] 3.9 g/dL Normal 3.9-4.9 [facility] Comment on above: Order Comment: Speci men Type: BLOOD SPECIMENOrdering Facility: [facility] Address: [address] [place] [address] Performed By: #### 2 4323-8, 0 ####[facility] LABCLIA [id number] [place] [address] ALP [Catalytic activity/Vol] 109 U/L Normal 34-123 [facility] Comment on above: Order Comment: Speci men Type: BLOOD SPECIMENOrdering Facility: [facility] Address: [address] [place] [address] Performed By: #### 2 4323-8, 0 ####[facility] LABCLIA [id number] [place] [address] ALT [Catalytic activity/Vol] 26 U/L Normal 7-38 [facility] Comment on above: Order Comment: Speci men Type: BLOOD SPECIMENOrdering Facility: [facility] Address: [address] [place], [place] [id number] Performed By: #### 2 4323-8, 2531-0 ####[facility] LABCLIA [id number] [place] [address] Anion gap [Moles/Vol] 10 mmol/L Normal 9-18 [facility] Comment on above: Order Comment: Speci men Type: BLOOD SPECIMENOrdering Facility: [facility] Address: [address] [place] [address] Performed By: #### 2 4323-8, 2531-0 ####[facility] LABCLIA [id number] [place] [address] AST [Catalytic activity/Vol] 26 U/L Normal 13-35 [facility] Comment on above: Order Comment: Speci men Type: BLOOD SPECIMENOrdering Facility: [facility] Address: [address] [place] [address] Performed By: #### 2 4323-8, 2531-0 ####[facility] LABCLIA [id number] [place] [address] Bilirubin [Mass/Vol] 0.2 mg/dL Normal 0.2-1.3 [facility] Comment on above: Order Comment: Speci men Type: BLOOD SPECIMENOrdering Facility: [facility] Address: [address] [place] [address] Performed By: #### 2 4323-8, 2531-0 ####[facility] LABCLIA [id number] [place] [address] Calcium [Mass/Vol] 10.1 mg/dL Normal 8.5-10.2 [facility] Comment on above: Order Comment: Speci men Type: BLOOD SPECIMENOrdering Facility: [facility] Address: [address] [place] [address] Performed By: #### 2 4323-8, 2531-0 ####[facility] LABCLIA [id number] [place] [address] Chloride [Moles/Vol] 103 mmol/L Normal 97-105 [facility] Comment on above: Order Comment: Speci men Type: BLOOD SPECIMENOrdering Facility: [facility] Address: [address] [place] [address] Performed By: #### 2 4323-8, 2531-0 ####[facility] LABCLIA [id number] [place] [address] CO2 [Moles/Vol] 23 mmol/L Normal 22-30 [facility] Comment on above: Order Comment: Speci men Type: BLOOD SPECIMENOrdering Facility: [facility] Address: [address] [place] [address] Performed By: #### 2 4323-8, 2531-0 ####[facility] LABCLIA [id number] [place] [address] Creatinine [Mass/Vol] 0.64 mg/dL Normal 0.58-0.96 [facility] Comment on above: Order Comment: Speci men Type: BLOOD SPECIMENOrdering Facility: [facility] Address: [address] [place] [address] Performed By: #### 2 4323-8, 2531-0 ####[facility] LABCLIA [id number] [place] [address] Creatinine and Glomerular filtration rate.predicted panel (S/P/Bld) 118 mL/min/1.73m??? Normal >=60 [facility] Comment on above: Order Comment: Speci men Type: BLOOD SPECIMENOrdering Facility: [facility] Address: [address] [place] [address] Result Comment: Araseli mated Glomerular Filtration Rate [...] GFR. Performed By: #### 2 4323-8, 0 ####[facility] LABCLIA [id number] [place] [address] Glucose [Mass/Vol] 85 mg/dL Normal 74-99 [facility] Comment on above: Order Comment: Kavin childress Type: BLOOD SPECIMENOrdering Facility: [facility] Address: [address] [place] [address] Result Comment: The [place] [employer] (ADA) provides guidance for cutoff [...] Standards of Medical Care in Diabetes 2016, [place] [employer]. Diabetes Care. 2016.39(Suppl 1). Performed By: #### 2 4328, ####[facility] LABCLIA [id number] [place] [address] Potassium [Moles/Vol] 4.1 mmol/L Normal 3.7-5.1 [facility] Comment on above: Order Comment: Kavin childress Type: BLOOD SPECIMENOrdering Facility: [facility] Address: [address] [place] [address] Performed By: #### 2 4323-8, 0 ####[facility] LABCLIA [id number] [place] [address] Protein [Mass/Vol] 7.3 g/dL Normal 6.3-8.0 [facility] Comment on above: Order Comment: Speci men Type: BLOOD SPECIMENOrdering Facility: [facility] Address: [address] [place] [address] Performed By: #### 2 4323-8, 2531-0 ####[facility] LABCLIA [id number] [place] [address] Sodium [Moles/Vol] 136 mmol/L Normal 136-144 [facility] Comment on above: Order Comment: Speci men Type: BLOOD SPECIMENOrdering Facility: [facility] Address: [address] [place] [address] Performed By: #### 2 432-8, 0 ####[facility] LABCLIA [id number] [place] [address] Urea nitrogen [Mass/Vol] 6 mg/dL Low 7-21 [facility] Comment on above: Order Comment: Speci men Type: BLOOD SPECIMENOrdering Facility: [facility] Address: [address] [place] [address] Performed By: #### 2 4323-8, 0 ####[facility] LABCLIA [id number] [place] [address] LDH SerPl-cCncon 12-26-2023 LDH [Catalytic activity/Vol] 190 U/L Normal 135-214 [facility] Comment on above: Order Comment: Speci men Type: BLOOD SPECIMENOrdering Facility: [facility] Address: [address] [place] [address] Result Comment: Hemo lysis present. The origin [...] indicated. Performed By: #### 2 4323-8, 2531-0 ####[facility] LABCLIA [id number] [place] [address] URETHRITIS/DISCHARGE PLUS VA GINITIS (HTRX)on 11-14-2023 ATOPOBIUM VAGINAE 19.497 Abnormal [facility] ATOPOBIUM VAGINAE Detected Abnormal [facility] althcare BVAB 2,3 (BACTERIAL VAGINOSIS ASSOCIATED BACTERIA 2, 3); MOBILUNCUS SPP 15.096 Abnormal [facility] BVAB 2,3 (BACTERIAL VAGINOSIS ASSOCIATED BACTERIA 2, 3); MOBILUNCUS SPP Detected Abnormal [facility] DIANE ALBICANS, PARAPSILOSIS, TROPICALIS 0 [facility] DIANE ALBICANS, PARAPSILOSIS, TROPICALIS Not detected [facility] DIANE GLABRATA 0 [facility] DIANE GLABRATA Not detected [facility] DIANE KRUSEI 0 [facility] DIANE KRUSEI Not [facility] CHLAMYDIA TRACHOMATIS 0 [facility] CHLAMYDIA TRACHOMATIS Not detected [facility] DFR (A1, A5), SUL (1,2) 0 PPM [facility] DFR (A1, A5), SUL (1,2) Not detected [facility] ERMB, C; MEFA 14.773 Abnormal PPM [facility] care ERMB, C; MEFA Detected Abnormal [facility] care GARDNERELLA VAGINALIS 0 [facility] GARDNERELLA VAGINALIS Not detected [facility] Interpretation and review of laboratory results Abnormal [facility] re MEGASPHAERA (TYPES 1, 2) 0 [facility] MEGASPHAERA (TYPES 1, 2) Not detected [facility] MYCOPLASMA GENITALIUM 0 [facility] MYCOPLASMA GENITALIUM Not detected [facility] NEISSERIA GONORRHOEAE 0 [facility] NEISSERIA GONORRHOEAE Not detected [facility] TET B, TET M 18.414 Abnormal P[facility] are TET B, TET M Detected Abnormal [facility] TRICHOMONAS VAGINALIS 0 [facility] TRICHOMONAS VAGINALIS Not detected [facility] Healthcar e Unlisted Lab Teston 11-13-19 24 Unlisted lab test see scanned report [facility] Urinalysis macro (dipstick) panel (U)on 11-12-2023 Bilirubin, UA Negative Negative - 4(70) +++ mg/dL [facility] Blood, UA Negative Negative - 50 Manny/mcL [facility] Clarity, UA Clear [facility] re Color, UA Yellow [facility] Glucose, UA Negative Negative - 1999(110) ++++ mg/dL [facility] Interpretation and review of laboratory results Normal [facility] re Ketones, UA Negative Negative - 160(16) ++++ mg/dL [facility] Leukocytes, UA Negative Negative - 500+++ Luli/mcL [facility] Nitrite, UA Negative Negative - Positive [facility] pH, UA 6.0 5 - 9 [facility] Protein, UA Negative Negative - 1999(20) ++++ mg/dL [facility] Spec Grav, UA 1.020 1 - 1.03 [facility] Urobilinogen, UA 1.0 0.2 - 12 mg/dL [facility] HCG ( test) IAnupur d Ql (U)Ordered By: Karan Romero on 03-19-2023 HCG ( test) Ql (U) Negative [facility] HCG,Urineon 03-19-2023 Beta HCG ( test) Ql (U) Negative Normal [facility] Comment on above: Result Comment: PERF ORMED BY: [place] [address] PATHOLOGIST [employer] REPA[employer] JOYCE ACHARYA M.D. Performed By: #### U HCG #### [address] Joel 03-19-2023 L --- Specimen: [id number] Received: 03/19/23 Status: HEMANT Wilkescarisa Num: [id number] Spec Type: Surgical Subm Dr: Karan Romero MD Tissues: A Duodenum - Biopsy (DUODENAL BX) B Esophagus Biopsy (ESOPHAGEAL) Procedures: HE/4, Gross/Micro L4/2 Age/ Patient Sex Location Account Attending Physician Vy Mckeon 32/F [id number] Karan Romero MD SPEC NUM: [id number] RECD: 03/19/23 STATUS: HEMANT JOHNSTON NUM: [id number] ASAD: 03/19/23-1356 [facility] DR: Karan Romero MD ENTERED: 03/19/[address] [facility] DR: MERE TYPE: Surgical DEPT: S ORDERED: [...] submitted in one cassette labeled B1. Specimen: [id number] Received: 03/19/23 Status: HEMANT Johnston Num: [id number] Spec Type: Surgical Subm Dr: Karan Romero MD Tissues: A Duodenum - Biopsy (DUODENAL BX) B Esophagus Biopsy (ESOPHAGEAL) Procedures: HE/4, Gross/Micro L4/2 Patient: Vy Mckeon [id number] (Continued) Specimen: [id number] Received: 03/19/23 (Continued) Signed (signature on file) Doris Reynolds MD 03/20/23 1117 Specimen: [id number] Received: 03/19/23 Status: HEMANT Johnston Num: [id number] Spec Type: Surgical Subm Dr: Karan Romero MD Tissues: A Duodenum - Biopsy (DUODENAL BX) B Esophagus Biopsy (ESOPHAGEAL) Procedures: HE/4, Gross/Micro L4/2 Patient: Vy Mckeon [id number] (Continued) Specimen: [id number] Received: 03/19/23 (Continued) Microscopic Description A. Two with H E stained material have been examined. The microscopic findings support the above pathologic diagnosis. B. Two with H E stained material have been examined. The microscopic findings support the above pathologic diagnosis. CPT Codes 17519 x 2 Specimen: [id number] Received: 03/19/23 Status: HEMANT Johnston Num: [id number] Spec Type: Surgical Subm Dr: Karan Romero MD Tissues: A Duodenum - Biopsy (DUODENAL BX) B Esophagus Biopsy (ESOPHAGEAL) Procedures: HE/Maday, Gross/Micro L4/2 Patient: Vy Mckeon [id number] (Continued) Signed (signature on file) Doris Reynolds MD 03/20/23 [facility] CBC AUTO DIFFon 02-09-2023 BASO # 0.0 103/ul Normal 0.0-0.1 [facility] Comment on above: Performed By: #### C ####[facility] [address] [place], [place] [address]Qm. Zafar Branham Basophils/100 WBC (Bld) 0.3 % Normal 0.2-2.0 [facility] Comment on above: Performed By: #### C BC ####[facility] [address] [place] [address]Dr. Zafar Branham EO # 0.2 103/ul Normal 0.0-0.7 [facility] Comment on above: Performed By: #### C BC ####[facility] [address] [place], [place] [address]Dr. Zafar Branham Eosinophils/100 WBC (Bld) 1.7 % Normal 0.9-7.0 [facility] Comment on above: Performed By: #### C BC ####[facility] [address] [place], [place] [address]Dr. Zafar Branham Erythrocyte distribution width (RBC) [Ratio] 13.9 % Normal 11.0-15.0 [facility] Comment on above: Performed By: #### C BC ####[facility] [address] [place], [place] [address]Dr. Zafar Branham Hematocrit (Bld) [Volume fraction] 41.0 % Normal 36.0-48.0 [facility] Comment on above: Performed By: #### C BC ####[facility] [address] [place], [place] [address]Dr. Zafar Branham Hemoglobin (Bld) [Mass/Vol] 13.4 g/dL Normal 12.0-16.0 [facility] Comment on above: Performed By: #### C BC ####[facility] [address] [place], [place] [address]Dr. Zafar Branham IG # 0.03 10e3/ul Normal 0.00-0.03 [facility] Comment on above: Performed By: #### C BC ####[facility] [address] [place], [place] [address]Dr. Zafar Branham IG % 0.3 % Normal 0.0-0.5 [facility] Comment on above: Performed By: #### C BC ####[facility] [address] [place], [place] [address]Dr. Zafar Yonas LYMPH # 1.4 103/ul Normal 1.2-3.8 [facility] Comment on above: Performed By: #### C BC ####[facility] [address] [place] [address]Dr. Zafar Yonas Lymphocytes/100 WBC (Bld) 14.8 % Critically low 20.5-60.0 [facility] Comment on above: Performed By: #### C BC ####[facility] [address] [place] [address]Dr. Kathytere Branham MANUAL DIFF REQ NO Normal [facility] Comment on above: Performed By: #### C BC ####[facility] [address] [place] [address]Dr. Zafar Yonas MCH (RBC) [Entitic mass] 28.8 pg Normal 26.7-34.0 [facility] Comment on above: Performed By: #### C BC ####[facility] [address] [place], [place] [address]Dr. Zafar Yonas MCHC (RBC) [Mass/Vol] 32.7 g/dL Normal 29.9-35.2 [facility] Comment on above: Performed By: #### C BC ####[facility] [address] [place] [address]Dr. Kathytere Branham MCV (RBC) [Entitic vol] 88.0 fL Normal 81.0-99.0 [facility] Comment on above: Performed By: #### C BC ####[facility] [address] [place] [address]Dr. Kathytere Yonas MONO # 0.4 103/ul Normal 0.3-0.8 [facility] Comment on above: Performed By: #### C BC ####[facility] [address] [place] [address]Dr. Kathytere Branham Monocytes/100 WBC (Bld) 3.9 % Normal 1.7-12.0 [facility] Comment on above: Performed By: #### C BC ####[facility] [address] [place], [place] [address]Dr. Zafar Branham NEUT # 7.2 103/ul Critically high 1.4-6.5 [facility] Comment on above: Performed By: #### C BC ####[facility] [address] [place] [address]Dr. Zafar Branham Neutrophils/100 WBC (Bld) 79.0 % Critically high 43.0-75.0 [facility] Comment on above: Performed By: #### C BC ####[facility] [address] [place] [address]Dr. Zafar Branham Platelet mean volume (Bld) [Entitic vol] 10.7 fL Normal 9.5-13.5 [facility] Comment on above: Performed By: #### C BC ####[facility] [address] [place] [address]Dr. Zafar Branham PLT 353 103/ul Normal 150-450 [facility] Comment on above: Performed By: #### C BC ####[facility] [address] [place] [address]Dr. Zafar Branham RBC 4.66 106/ul Normal 4.20-5.40 [facility] Comment on above: Performed By: #### C BC ####[facility] [address] [place] [address]Dr. Zafar Branham WBC 9.2 103/ul Normal 4.0-11.0 [facility] Comment on above: Performed By: #### C BC ####[facility] [address] [place] [id number]. Zafar Branham CRPon 02-09-2023 CRP 1.0 mg/dL Normal <=1.0 [facility] Comment on above: Performed By: #### C RP, CMP, TSH, LIPID ####[facility] [address] [place] [address]Dr. Zafar Branham FREE T4on 02-09-2023 Free T4 [Mass/Vol] 1.01 ng/dL Normal 0.76-1.46 [facility] Comment on above: Performed By: #### F T4 #### [facility] [address] [place], [place] [address] Dr. Zafar Branham LIPID PROFILEon 02-09-2023 CHOL-HDL RATIO NORM SEE BELOW Normal [facility] Comment on above: Result Comment: 3.3 - 4.4 LOW RISK 4.4 - 7.1 AVERAGE RISK 7.1 - 11.0 MODERATE RISK >11.0 HIGH RISK Performed By: #### C RP, CMP, TSH, LIPID ####[facility] [address] [place] [id number]. Zafar Branham Cholesterol [Mass/Vol] 230 mg/dL Critically high <=200 [facility] Comment on above: Performed By: #### C RP, CMP, TSH, LIPID ####[facility] [address] [place] [address]Dr. Zafar Branham Cholesterol in HDL [Mass/Vol] 71 mg/dL Critically high 40-60 [facility] Comment on above: Performed By: #### C RP, CMP, TSH, LIPID ####[facility] [address] [place] [address]Dr. Zafar Branham Cholesterol in LDL [Mass/Vol] 139.4 mg/dL Normal [facility] Comment on above: Performed By: #### C RP, CMP, TSH, LIPID ####[facility] [address] [place] [address]Dr. Zafar Branham Cholesterol.total/ Cholesterol in HDL [Mass ratio] 3.2 {ratio} Normal [facility] Comment on above: Performed By: #### C RP, CMP, TSH, LIPID ####[facility] [address] [place] [address]Dr. Zafar Branham HDL NORMAL > or = 60 mg/dl - LO W CARDIOVASCULAR RISK <40 mg/dl - HIGH CARDIOVASCULAR RISK Normal [facility] Comment on above: Performed By: #### C RP, CMP, TSH, LIPID ####[facility] [address] [place] [id number]. Zafar Branham LDL CALC NORMAL SEE BELOW Normal [facility] Comment on above: Result Comment: <100 mg/dl OPTIMAL 100 - 129 mg/dl NEAR OR ABOVE OPTIMAL 130 - 159 mg/dl BORDERLINE HIGH 160 - 189 mg/dl HIGH >190 mg/dl VERY HIGH Performed By: #### C RP, CMP, TSH, LIPID ####[facility] [address] [place], [place] [address]HhDr. Zafar Branham Triglyceride [Mass/Vol] 98 mg/dL Normal <=150 [facility] Comment on above: Performed By: #### C RP, CMP, TSH, LIPID ####[facility] [address] [place], [place] [address]IvBryant Branham VLDL CALC 19.6 mg/dL Normal [facility] Comment on above: Performed By: #### C RP, CMP, TSH, LIPID ####[facility] [address] [place] [id number] Branham URon 02-09-2023 , QUAL Negative Normal NEGATIVE [facility] Comment on above: Performed By: #### U AMIC, PREGU #### [facility] [address] [place] [address] [address] Zafar Branham PROF 14(COMP METB)on 023 Albumin [Mass/Vol] 4.0 g/dL Normal 3.4-5.0 [facility] Comment on above: Performed By: #### C RP, CMP, TSH, LIPID #### [facility] [address] [place] [address] [address] Zafar Branham Albumin/Globulin [Mass ratio] 0.9 {ratio} Normal [facility] Comment on above: Performed By: #### C RP, CMP, TSH, LIPID #### [facility] [address] [place] [address] [address] Zafar Branham ALP [Catalytic activity/Vol] 94 U/L Normal 46-116 [facility] Comment on above: Performed By: #### C RP, CMP, TSH, LIPID #### [facility] [address] [place] [address] [address] Zafar Branham ALT [Catalytic activity/Vol] 30 U/L Normal 14-59 [facility] Comment on above: Performed By: #### C RP, CMP, TSH, LIPID #### [facility] [address] [place] [address] [address] Zafar Branham Anion gap [Moles/Vol] 13.6 mmol/L Normal [facility] Comment on above: Performed By: #### C RP, CMP, TSH, LIPID #### [facility] [address] [place] [address] [address] Zafar Branham AST [Catalytic activity/Vol] 23 U/L Normal 15-37 [facility] Comment on above: Performed By: #### C RP, CMP, TSH, LIPID #### [facility] [address] [place] [address] [address] Zafar Branham Bilirubin [Mass/Vol] 0.3 mg/dL Normal 0.2-1.0 [facility] Comment on above: Performed By: #### C RP, CMP, TSH, LIPID #### [facility] [address] [place] [address] [address] Zafar Branham Calcium [Mass/Vol] 9.7 mg/dL Normal 8.5-10.1 [facility] Comment on above: Performed By: #### C RP, CMP, TSH, LIPID #### [facility] [address] [place] [address] [address] Zafar Branham Chloride [Moles/Vol] 100 mmol/L Normal 98-107 [facility] Comment on above: Performed By: #### C RP, CMP, TSH, LIPID #### [facility] [address] [place] [address] [address] Zafar Branham CO2 [Moles/Vol] 26.6 mmol/L Normal 21.0-32.0 [facility] Comment on above: Performed By: #### C RP, CMP, TSH, LIPID #### [facility] [address] [place] [address] [address] Zafar Branham Creatinine [Mass/Vol] 1.00 mg/dL Normal 0.55-1.02 [facility] Comment on above: Performed By: #### C RP, CMP, TSH, LIPID #### [facility] [address] [place] [address] [address] Zafar Branham EGFR-AF PAKISTANI >60 Normal >=60 [facility] Comment on above: Performed By: #### C RP, CMP, TSH, LIPID #### [facility] [address] [place] [address] [address] Zafar Branham EGFR-NON AF PAKISTANI >60 Normal >=60 [facility] Comment on above: Performed By: #### C RP, CMP, TSH, LIPID #### [facility] [address] [place] [address] [address] Zafar Brnaham Globulin (S) [Mass/Vol] 4.5 g/dL Normal [facility] Comment on above: Performed By: #### C RP, CMP, TSH, LIPID #### [facility] [address] [place] [address] Dr. Zafar Branham Glucose [Mass/Vol] 93 mg/dL Normal 74-106 [facility] Comment on above: Performed By: #### C RP, CMP, TSH, LIPID #### [facility] [address] [place] [address] Dr. Zafar Branham Potassium [Moles/Vol] 4.2 mmol/L Normal 3.5-5.1 [facility] Comment on above: Performed By: #### C RP, CMP, TSH, LIPID #### [facility] [address] [place] [address] Dr. Zafar Branham Protein [Mass/Vol] 8.5 g/dL Critically high 6.4-8.2 [facility] Comment on above: Performed By: #### C RP, CMP, TSH, LIPID #### [facility] [address] [place] [address] Dr. Zafar Branham Sodium [Moles/Vol] 136 mmol/L Normal 136-145 [facility] Comment on above: Performed By: #### C RP, CMP, TSH, LIPID #### [facility] [address] [place] [address] Dr. Zafar Branham Urea nitrogen [Mass/Vol] 10.0 mg/dL Normal 7.0-18.0 [facility] Comment on above: Performed By: #### C RP, CMP, TSH, LIPID #### [facility] [address] [place] [address] [address] Zafar Branham Urea nitrogen/Creatinin e [Mass ratio] 10.0 mg/mg Normal [facility] Comment on above: Performed By: #### C RP, CMP, TSH, LIPID #### [facility] [address] [place] [address] [address] Zafar Branham [facility] SED RATE 49 mm/hr Critically high <=20 [facility] Comment on above: Performed By: #### S EDR ####[facility] [address] [place] [address]Dr. Zafar Branham TSHon 02-09-2023 TSH 0.590 uIU/mL Normal 0.358-3.740 [facility] Comment on above: Performed By: #### C RP, CMP, TSH, LIPID #### [facility] [address] [place] [address] [address] Zafar Branham UA RANDOM W/MICROSCOPICon BACTERIA NONE SEEN Normal NONE SEEN [facility] Comment on above: Performed By: #### U AMIC, PREGU #### [facility] [address] [place] [address] [address] Zafar Branham Bilirubin Ql (U) Negative Normal NEGATIVE [facility] Comment on above: Performed By: #### U AMIC, PREGU #### [facility] [address] [place] [address] [address] Zafar Branham CAST NONE SEEN Normal NONE SEEN [facility] Comment on above: Performed By: #### U AMIC, PREGU #### [facility] [address] [place] [address] [address] Zafar Branham Clarity (U) CLEAR Normal CLEAR [facility] Comment on above: Performed By: #### U AMIC, PREGU #### [facility] [address] [place] [address] [address] Zafar Branham Color (U) LT. YELLOW Normal YELLOW [facility] Comment on above: Performed By: #### U AMIC, PREGU #### [facility] [address] [place] [address] [address] Zafar Branham Crystals LM Nom (Urine sed) NONE SEEN Normal NONE SEEN [facility] Comment on above: Performed By: #### U AMIC, PREGU #### [facility] [address] [address] [address] Zafar Branham Epithelial cells LM Ql (Urine sed) FEW Abnormal NONE SEEN /RARE [facility] Comment on above: Performed By: #### U AMIC, PREGU #### [facility] [address] [address] [address] Zafar Branham Glucose Ql (U) Negative Normal NEGATIVE The [facility] Comment on above: Performed By: #### U AMIC, PREGU #### [facility] [address] [address] [address] Zafar Branham Hemoglobin Ql (U) SMALL Abnormal NEGATIVE The [facility] Comment on above: Performed By: #### U AMIC, PREGU #### [facility] [address] [place] [address] Dr. Zafar Branham Ketones Ql (U) Negative Normal NEGATIVE The [facility] Comment on above: Performed By: #### U AMIC, PREGU #### [facility] [address] [address] [address] Zafar Branham LEUKOCYTES Negative Normal NEGATIVE [facility] Comment on above: Performed By: #### U AMIC, PREGU #### [facility] [address] [address] [address] Zafar Branham MUCOUS NONE SEEN Normal NONE SEEN [facility] Comment on above: Performed By: #### U AMIC, PREGU #### [facility] [address] [address] [address] Zafar Branham Nitrite Ql (U) Negative Normal NEGATIVE The [facility] Comment on above: Performed By: #### U AMIC, PREGU #### [facility] [address] [place] [address] Dr. Zafar Branham pH (U) 6.0 [pH] Normal 5-9 [facility] Comment on above: Performed By: #### U AMIC, PREGU #### [facility] [address] [address] [address] Zafar Branham RBC 0-2 Normal 0-2 [facility] Comment on above: Performed By: #### U AMIC, PREGU #### [facility] [address] [address] [address] Zafar Branham SPEC GRAVITY <=1.005 Abnormal 1.005-<=1.025 [facility] Comment on above: Performed By: #### U AMIC, PREGU #### [facility] [address] [address] [address] Zafar Branham UA PROTEIN Negative Normal NEGATIVE/ TRACE [facility] Comment on above: Performed By: #### U AMIC, PREGU #### [facility] [address] [address] [address] Zafar Branham Urobilinogen Qn (U) 0.2 {Ramy'U}/dL Normal 0.2 - 1.0 [facility] Comment on above: Performed By: #### U AMIC, PREGU #### [facility] [address] [address] [address] Zafar Branham WBC NONE SEEN Normal NONE SEEN [facility] Comment on above: Performed By: #### U AMIC, PREGU #### [facility] [address] [address] [address] Zafar Branham XR knee RT 4V*on 02-07-2023 XR knee RT 4V* [facility] [employer] Other XR knee RT 4V* [facility] [employer] Other XR knee RT 4V* [address] [place] [address] [employer] Other XR knee RT 4V* [place] [id number] No rt [employer] Other XR knee RT 4V* XRay Report [employer] Other XR knee RT 4V* Signed [email or web address] Other XR knee RT 4V* Patient: yV Mckeon MR#: [id number] [employer] Other XR knee RT 4V* 5 [email or web address] Other XR knee RT 4V* : 1990 Acct:[id number] [employer] Other XR knee RT 4V* Age/Sex: 32 / F ADM Date: 02/07/23 [employer] Other XR knee RT 4V* Loc: XDUCLY Room: pe: REG CLI [employer] Other XR knee RT 4V* Attending Dr: Shayla DENNEY [employer] Other XR knee RT 4V* Copies to: JUMANA Christianson [employer] Other XR knee RT 4V* Ordering Provider: JUMANA Christianson [employer] Other XR knee RT 4V* Date of Service: 02/07/23 [employer] Other XR knee RT 4V* XR/XR knee RT 4V*: RIGHT KNEE PAIN [employer] Other XR knee RT 4V* RIGHT KNEE - 4 views [employer] Other XR knee RT 4V* COMPARISON: None [employer] Other XR knee RT 4V* CLINICAL DATA: Lolita nt fell last night and landed on right anterior knee. Pain, swelling and [employer] Other XR knee RT 4V* abrasions. [email or web address] Other XR knee RT 4V* AP, lateral and both oblique views were obtained. There is no fracture or dislocation. There is no [employer] Other XR knee RT 4V* significant knee effusion or focal soft tissue swelling. [employer] Other XR knee RT 4V* XR/XR knee RT 4V* [employer] Other XR knee RT 4V* IMPRESSION: [employer] Other XR knee RT 4V* NO ACUTE BONY INJURY. [employer] Other XR knee RT 4V* Impression dictated by: Rama Garsia M.D.02/07/2023 10:01 AM [employer] Other XR knee RT 4V* Dictation Location: [facility]-- [employer] Other XR knee RT 4V* Transcribed By: MILKA 02/07/23 1001 [employer] Other XR knee RT 4V* Dictated By: Rama Garsia MD 02/07/23 1000 [employer] Other XR knee RT 4V* Signed By: [email or web address] Other XR knee RT 4V* 02/07/23 1001 [employer] Other XR knee RT 4V* [facility] [employer] [address] [place] [address] XRay Report Signed Patient: Vy Mckeon MR#: [id number] 5 : 1990 Acct:[id number] Age/Sex: 32 / F ADM Date: 02/07/23 Loc: XDUC Room: Type: [facility] Attending Dr: Shayla DENNEY Copies to: [...] Rama Garsia M.D.02/07/2023 10:01 AM Dictation Location: [place] [address] Transcribed By: [facility] 02/07/23 1001 Dictated By: Rama Garsia MD 02/07/23 1000 Signed By: 02/07/23 1001 [facility] XR HIPS KARELY 5V W PELVISon [...] JO-ANN CHACON Date: 2022-12-17 13:04 Normal [facility] PREG QUANT HCGon 07-04-2022 HCG QUANT 1 mIU/mL Normal [facility] Comment on above: Performed By: #### P REGQNT #### [facility] [address] [place] [address] Dr. Zafar Branham HCG RANGE SEE BELOW Normal [facility] Comment on above: Result Comment: 5-50 0.2-1 WEEK 50-500 1-2 WEEKS 100-5,000 2-3 WEEKS 500-10,000 3-4 WEEKS 1,000-50,000 4-5 WEEKS 10,000-100,000 5-6 WEEKS 15,000-200,000 6-8 WEEKS 10,000-100,000 2-3 MONTHS Performed By: #### P REGQNT #### [facility] [address] [place] [address] Dr. Zafar Branham PREG QUANT HCGon 06-08-2022 HCG QUANT 16 mIU/mL Normal [facility] Comment on above: Performed By: #### P REGQNT ####[facility] [address] [place], [place] [address]RhDr. Zafar Branham HCG RANGE SEE BELOW Normal [facility] Comment on above: Result Comment: 5-50 0.2-1 WEEK 50-500 1-2 WEEKS 100-5,000 2-3 WEEKS 500-10,000 3-4 WEEKS 1,000-50,000 4-5 WEEKS 10,000-100,000 5-6 WEEKS 15,000-200,000 6-8 WEEKS 10,000-100,000 2-3 MONTHS Performed By: #### P REGQNT ####[facility] [address] [place], [place] [address]RnDr. Zafar Branham CBC AUTO DIFFon 05-23-2022 BASO # 0.0 103/ul Normal 0.0-0.1 [facility] Comment on above: Performed By: #### C BC #### [facility] [address] [address] [address] Zafar Branham Basophils/100 WBC (Bld) 0.6 % Normal 0.2-2.0 [facility] Comment on above: Performed By: #### C BC #### [facility] [address] [address] [address] Zafar Branham EO # 0.3 103/ul Normal 0.0-0.7 [facility] Comment on above: Performed By: #### C BC #### [facility] [address] [address] [address] Zafar Branham Eosinophils/100 WBC (Bld) 6.5 % Normal 0.9-7.0 [facility] Comment on above: Performed By: #### C BC #### [facility] [address] [address] [address] Zafar Branham Erythrocyte distribution width (RBC) [Ratio] 12.5 % Normal 11.0-15.0 [facility] Comment on above: Performed By: #### C BC #### [facility] [address] [address] [address] Zafar Branham Hematocrit (Bld) [Volume fraction] 37.2 % Normal 36.0-48.0 [facility] Comment on above: Performed By: #### C BC #### [facility] [address] [place] [address] Dr. Zafar Branham Hemoglobin (Bld) [Mass/Vol] 12.1 g/dL Normal 12.0-16.0 [facility] Comment on above: Performed By: #### C BC #### [facility] [address] [place] [address] Dr. Zafar Branham IG # 0.01 10e3/ul Normal 0.00-0.03 [facility] Comment on above: Performed By: #### C BC #### [facility] [address] [place] [address] Dr. Zafar Branham IG % 0.2 % Normal 0.0-0.5 [facility] Comment on above: Performed By: #### C BC #### [facility] [address] [place] [address] Dr. Zafar Branham LYMPH # 1.5 103/ul Normal 1.2-3.8 [facility] Comment on above: Performed By: #### C BC #### [facility] [address] [place] [address] Dr. Zafar Branham Lymphocytes/100 WBC (Bld) 29.8 % Normal 20.5-60.0 [facility] Comment on above: Performed By: #### C BC #### [facility] [address] [place] [address] Dr. Zafar Branham MANUAL DIFF REQ NO Normal [facility] Comment on above: Performed By: #### C BC #### [facility] [address] [place] [address] Dr. Zafar Branham MCH (RBC) [Entitic mass] 29.1 pg Normal 26.7-34.0 [facility] Comment on above: Performed By: #### C BC #### [facility] [address] [place] [address] Dr. Zafar Branham MCHC (RBC) [Mass/Vol] 32.5 g/dL Normal 29.9-35.2 [facility] Comment on above: Performed By: #### C BC #### [facility] [id number] Zafar Branham MCV (RBC) [Entitic vol] 89.4 fL Normal 81.0-99.0 [facility] Comment on above: Performed By: #### C BC #### [facility] [address] [address] [address] Zafar Branham MONO # 0.4 103/ul Normal 0.3-0.8 [facility] Comment on above: Performed By: #### C BC #### [facility] [address] [address] [address] Zafar Branham Monocytes/100 WBC (Bld) 7.9 % Normal 1.7-12.0 [facility] Comment on above: Performed By: #### C BC #### [facility] [address] [place] [address] Dr. Zafar Branham NEUT # 2.7 103/ul Normal 1.4-6.5 [facility] Comment on above: Performed By: #### C BC #### [facility] [address] [place] [address] Dr. Zafar Branham Neutrophils/100 WBC (Bld) 55.0 % Normal 43.0-75.0 [facility] Comment on above: Performed By: #### C BC #### [facility] [address] [place] [address] Dr. Zafar Branham Platelet mean volume (Bld) [Entitic vol] 10.0 fL Normal 9.5-13.5 [facility] Comment on above: Performed By: #### C BC #### [facility] [address] [place] [address] Dr. Zafar Branham PLT 229 103/ul Normal 150-450 [facility] Comment on above: Performed By: #### C BC #### [facility] [address] [place] [address] Dr. Zafar Branham RBC 4.16 106/ul Critically low 4.20-5.40 [facility] Comment on above: Performed By: #### C BC #### [facility] [address] [address] [address] Zafar Branham WBC 5.0 103/ul Normal 4.0-11.0 [facility] Comment on above: Performed By: #### C BC #### [facility] [address] [place], [place] [address] Dr. Zafar Branham TYPE AND SCREENon 05-23-2022 TYPE AND SCREEN Negative Normal The [facility] Comment on above: Performed By: #### T NS ####[facility] [address] [place], [place] [address]RyDr. Zafar Branham Covid-19 PCR (CVDTBH)on 05-01 SARS-CoV-2 (COVID-19) RNA MANOLO+probe Ql (Unsp spec) Not detected Normal NOT DETECTED [facility] Comment on above: Result Comment: This test is not yet approved or cleared by the [place] FDA. When there are no FDA-approved or cleared tests available, and other criteria are met, FDA can make tests available under an emergency access mechanism called an Emergency Use Authorization (EUA). The EUA for this test is supported by the Roll Forming Machine Operator of Health and Human Service's (HHS's) [...] SARS-CoV-2. Performed By: #### C VDTBH #### [facility] [address] [place], [place] [address] Dr. Zafar Branham US PREG TVon 05-18-2022 [...] BOBBI SIMONS Date: 2022-05-18 19:25 Normal [facility] US PREG TVon 05-03-2022 US PREG [...] by: BOBBI SIMONS Date: 2022-05-03 16:32 Normal [facility] Chlamydia/GC DNA, TPon 05-05 Chlamydia Probe, TP Negative Normal NEG [facility] Comment on above: Result Comment: [...] target. Performed By: #### C [facility] #### [address] [id number] [employer] Coverer: King Boone MD Gonorrhea Probe, TP Negative Normal NEG [facility] Comment on above: Result Comment: [...] target. Performed By: #### C YTC #### [address] [id number] [employer] Coverer: King Boone MD HPV DNA High Riskon 05-05-20 20 HPV Interp Normal [facility] Comment on above: Result Comment: [...] purposes. Performed By: #### H PVH #### [address] [id number] [employer] Coverer: King Boone MD HPV Type 16 Not Detected Normal [facility] Comment on above: Performed By: #### H PVH #### [address] [id number] [employer] Coverer: King Boone MD HPV Type 18 Not Detected [facility] Comment on above: Performed By: #### H PVH #### [address] [address] [employer] Coverer: King Boone MD Other High Risk HPV Not Detected [facility] Comment on above: Performed By: #### H PVH #### [id number] [place] [address] [employer] Ring Coverer: King Boone MD HPV Sample .THIN PREP Normal [facility] Comment on above: Performed By: #### H PVH #### [facility] [employer] [address] [place] [address] [employer] Coverer: King Boone MD Source .ENDOCERVIX Normal [facility] Comment on above: Performed By: #### H PVH #### [address] [address] [employer] Coverer: King Boone MD Otheron 05-04-2020 Direct Exam Negative [place], [place] VAGINITIS DNA PROBEon 2019 Direct Exam Positive Abnormal [place] Direct Exam Method of testing is a DNA probe intended for detection and identification of Diane species, Gardnerella vaginalis, and Trichomonas vaginalis nucleic acid in vaginal fluid specimens from patients with symptoms of vaginitis/vaginosis. [place] Interpretation and review of laboratory results Abnormal [place] Special Requests NOT REPORTED [place] Specimen Description .VAGINAL SWAB [place] Vaginitis DNA Probeon 2019 Vaginitis DNA [...] symptoms of vaginitis/vaginosis. Report Status FINAL 05/04/2020 [facility] Comment on above: Performed By: #### V AGDNA #### [address] [id number] [employer] Coverer: King Boone MD Cytologyon 05-03-2020 Cytology (NOTE) INTERPRETATION Endocervical material, (Thin prep vial, Imaging-assisted review): Specimen Adequacy: Satisfactory for evaluation. - Endocervical/transforma tion zone component present. Descriptive Diagnosis: Negative for intraepithelial lesion or malignancy. Shift in ray suggestive of bacterial vaginosis. Comments: High Risk HPV testing was ordered. Lathe Mechanic: JAYLIN Higgins(ASCP) Electronically Signed Out ana/05/07/2020 Procedure/Addendum [...] GYNECOLOGIC CYTOLOGY REPORT Patient Name: VY MCKEON [facility] Rec: [id number] Path Number: [id number] [employer] [facility] ANATOMIC PATHOLOGY [address] [place] [address]. [place], [place] [address] [facility] Comment on above: Performed By: #### P PPVP #### [facility] [address] [place] [address] [employer] Coverer: King Boone MD Vital Signs Date Time Vital Sign Value Performing Clinician Facility 01-21-2024 11:59-0400 Body height 170.2 cm Ana Peoples MD Work Phone: [facility] 01-21-2024 11:59-0400 Body mass index (BMI) [Ratio] 30.07 kg/m2 Ana Peoples MD Work Phone: [facility] 01-21-2024 11:59-0400 Body weight 87.1 kg Ana Peoples MD Work Phone: [facility] 01-21-2024 11:59-0400 Diastolic blood pressure 75 mm[Hg] Ana Peoples MD Work Phone: [facility] 01-21-2024 11:59-0400 Heart rate 108 /min Ana Peoples MD Work Phone: [facility] 01-21-2024 11:59-0400 Systolic blood pressure 125 mm[Hg] Ana Peoples MD Work Phone: [facility] 01-21-2024 11:02-0400 Body height 170.2 cm Ana Peoples MD Work Phone: [facility] 01-21-2024 11:02-0400 Body mass index (BMI) [Ratio] 30.07 kg/m2 Ana Peoples MD Work Phone: [facility] 01-21-2024 11:02-0400 Body weight 87.09 kg Ana Peoples MD Work Phone: [facility] 01-04-2024 14:31-0400 Body temperature 97.11 [degF] Fransico Sharp MD Work Phone: [facility] 01-04-2024 14:31-0400 Diastolic blood pressure 83 mm[Hg] Fransico Sharp MD Work Phone: [facility] 01-04-2024 14:31-0400 Heart rate 94 /min Fransico Sharp MD Work Phone: [facility] 01-04-2024 14:31-0400 Respiratory rate 20 /min Fransico Sharp MD Work Phone: [facility] 01-04-2024 14:31-0400 SaO2% (BldA) [Mass fraction] 99 % Fransico Sharp MD Work Phone: [facility] 01-04-2024 14:31-0400 Systolic blood pressure 148 mm[Hg] Fransico Sharp MD Work Phone: [facility] 12-17-2023 13:42-0400 Body height 170.2 cm Freddie Delgado [employer] ELASTIC ATTACHER-GOVERNMENT AFFAIRS DIRECTOR Work Phone: [facility] 12-17-2023 13:42-0400 Body mass index (BMI) [Ratio] 29.47 kg/m2 Freddie Ordoñezjas [employer] ELASTIC ATTACHER-GOVERNMENT AFFAIRS DIRECTOR Work Phone: [facility] 12-17-2023 13:42-0400 Body temperature 98.71 [degF] Freddie Delgado [employer] ELASTIC ATTACHER-GOVERNMENT AFFAIRS DIRECTOR Work Phone: [facility] 12-17-2023 13:42-0400 Body weight 85.37 kg Freddie Delgado [employer] ELASTIC ATTACHER-GOVERNMENT AFFAIRS DIRECTOR Work Phone: [facility] 12-17-2023 13:42-0400 Diastolic blood pressure 80 mm[Hg] Freddie Delgado [employer] ELASTIC ATTACHER-GOVERNMENT AFFAIRS DIRECTOR Work Phone: [facility] 12-17-2023 13:42-0400 Heart rate 86 /min Freddie Delgado [employer] ELASTIC ATTACHER-GOVERNMENT AFFAIRS DIRECTOR Work Phone: [facility] 12-17-2023 13:42-0400 SaO2% (BldA) [Mass fraction] 96 % Freddie Delgado [employer] ELASTIC ATTACHER-GOVERNMENT AFFAIRS DIRECTOR Work Phone: [facility] 03-18-2024 13:42-0400 Systolic blood pressure 128 mm[Hg] Freddie Delgado [employer] ELASTIC ATTACHER-GOVERNMENT AFFAIRS DIRECTOR Work Phone: [facility] 11-12-2023 13:13-0500 Body mass index (BMI) [Ratio] 28.47 kg/m2 Dionne Dameon PA Work Phone: [facility] 11-12-2023 13:13-0500 Body weight 82.46 kg Dionne Dameon PA Work Phone: [facility] 11-12-2023 13:13-0500 Diastolic blood pressure 72 mm[Hg] Dionne Morris PA Work Phone: [facility] 11-12-2023 13:13-0500 Systolic blood pressure 114 mm[Hg] Dionne Morris PA Work Phone: [facility] 05-29-2023 13:25-0400 Body height 170.18 cm Shayla Valle Other [employer] Other 05-29-2023 13:25-0400 Body mass index (BMI) [Ratio] 28.22 kg/m2 Shayla Valel Other [employer] Other 05-29-2023 13:25-0400 Body temperature 97.8 [degF] Shayla Valle Other [employer] Other 05-29-2023 13:25-0400 Body weight 81.74 kg Shayla Valle Other [employer] Other 05-29-2023 13:25-0400 Diastolic blood pressure 79 mm[Hg] Shayla Valle Other [employer] Other 05-29-2023 13:25-0400 Respiratory rate 18 /min Shayla Valle Other [employer] Other 05-29-2023 13:25-0400 SaO2% (BldA) [Mass fraction] 96 % Shayla Tori Other [employer] [facility] [employer] Other 05-29-2023 13:25-0400 Systolic blood pressure 127 mm[Hg] Shayla Tori Other [employer] Other 03-19-2023 14:37-0400 Diastolic blood pressure 69 mm[Hg] BROADCAST TRAFFIC COORDINATOR-C Shayla Tori Work Phone: [facility] 03-19-2023 14:37-0400 Heart rate 76 /min BROADCAST TRAFFIC COORDINATOR-C Shayla Tori Work Phone: [facility] 03-19-2023 14:37-0400 Respiratory rate 16 /min BROADCAST TRAFFIC COORDINATOR-C Shayla Tori Work Phone: [facility] 03-19-2023 14:37-0400 SaO2% (BldA) [Mass fraction] 96 % BROADCAST TRAFFIC COORDINATOR-C Shayla Tori Work Phone: [facility] 03-19-2023 14:37-0400 Systolic blood pressure 119 mm[Hg] BROADCAST TRAFFIC COORDINATOR-C Shayla Tori Work Phone: [facility] 03-19-2023 12:18-0400 Body height 170.18 cm BROADCAST TRAFFIC COORDINATOR-C Shayla Tori Work Phone: [facility] 03-19-2023 12:18-0400 Body temperature 97.9 [degF] BROADCAST TRAFFIC COORDINATOR-C Shayla Tori Work Phone: [facility] 03-19-2023 12:18-0400 Body weight 84.82 kg BROADCAST TRAFFIC COORDINATOR-C Shayla Tori Work Phone: [facility] 02-12-2023 14:30-0400 Body height 170.18 cm Yoel Jarrett Other [facility] [employer] Other 02-12-2023 14:30-0400 Body mass index (BMI) [Ratio] 30.54 kg/m2 Yoel Scovanner Other [employer] Other 02-12-2023 14:30-0400 Body weight 88.45 kg Yoel Scovanner Other [employer] Other 02-12-2023 14:30-0400 Diastolic blood pressure 80 mm[Hg] Yoel Scovanner Other [employer] Other 02-12-2023 14:30-0400 Systolic blood pressure 127 mm[Hg] Yoel Scovanner Other [employer] Other 02-07-2023 10:00-0400 Body height 170.18 cm Shayla Tori Other [employer] Other 02-07-2023 10:00-0400 Body mass index (BMI) [Ratio] 30.54 kg/m2 Shayla Tori Other [employer] Other 02-07-2023 10:00-0400 Body temperature 97.9 [degF] Shayla Caseymond Other [employer] Other 02-07-2023 10:00-0400 Body weight 88.45 kg Shayla Caseymond Other [employer] Other 02-07-2023 10:00-0400 Respiratory rate 18 /min Shayla Tori Other [employer] Other 02-07-2023 10:00-0400 SaO2% (BldA) [Mass fraction] 97 % Shayla Tori Other [employer] Other 05-03-2020 11:41-0400 BMI (Body Mass Index) 24.5 kg/m2 [facility] Work Phone: 05-03-2020 11:41-0400 Body Temperature 96.3 [degF] [facility] Work Phone: 05-03-2020 11:41-0400 Body weight 70.9 kg [facility] Work Phone: 05-03-2020 11:41-0400 BP Diastolic 80 mm[Hg] [facility] Work Phone: 05-03-2020 11:41-0400 BP Systolic 120 mm[Hg] [facility] Work Phone: 05-03-2020 11:41-0400 BSA (Body Surface Area) 1.82 m2 [facility] Work Phone: 05-03-2020 11:41-0400 Height 170.18 cm [facility] Work Phone: 05-03-2020 11:41-0400 Pulse (Heart Rate) 86 /min [facility] Work Phone: 05-03-2020 11:41-0400 Pulse Oximetry 93 % [facility] Work Phone: 05-03-2020 11:41-0400 Respiratory Rate 18 /min [facility] Work Phone: 04-08-2020 08:37-0400 BMI (Body Mass Index) 24.3 kg/m2 [facility] Work Phone: 04-08-2020 08:37-0400 Body Temperature 99 [degF] [facility] Work Phone: 04-08-2020 08:37-0400 Body weight 70.4 kg Sally [facility] Work Phone: 04-08-2020 08:37-0400 BP Diastolic 80 mm[Hg] [facility] Work Phone: 04-08-2020 08:37-0400 BP Systolic 110 mm[Hg] [facility] Work Phone: 04-08-2020 08:37-0400 BSA (Body Surface Area) 1.82 m2 [facility] Work Phone: 04-08-2020 08:37-0400 Height 170.18 cm [facility] Work Phone: 04-08-2020 08:37-0400 Pulse (Heart Rate) 82 /min [facility] Work Phone: 04-08-2020 08:37-0400 Pulse Oximetry 98 % [facility] Work Phone: 04-08-2020 08:37-0400 Respiratory Rate 18 /min [facility] Work Phone: 03-29-2020 09:52-0400 Body height 170.18 cm Sally [facility] Work Phone: [facility] Work Phone: Comment on above: self 03-29-2020 09:52-0400 Body mass index (BMI) [Ratio] 23.5 kg/m2 Sally Morejon [facility] Work Phone: [facility] Work Phone: Comment on above: self 03-29-2020 09:52-0400 Body surface area Derived from formula 1.79 m2 Sally Morejon [facility] Work Phone: [facility] Work Phone: Comment on above: self 03-29-2020 09:52-0400 Body weight 68.04 kg Sally Morejon GOVERNMENT AFFAIRS DIRECTOR Work Phone: [facility] Work Phone: Comment on above: self 10-14-2019 08:30-0500 BMI (Body Mass Index) 24.1 kg/m2 [facility] Work Phone: 10-14-2019 08:30-0500 Body Temperature 98.5 [degF] [facility] Work Phone: 10-14-2019 08:30-0500 Body weight 69.76 kg [facility] Work Phone: 10-14-2019 08:30-0500 BP Diastolic 78 mm[Hg] [facility] Work Phone: 10-14-2019 08:30-0500 BP Systolic 132 mm[Hg] [facility] Work Phone: 10-14-2019 08:30-0500 BSA (Body Surface Area) 1.81 m2 [facility] Work Phone: 10-14-2019 08:30-0500 Height 170.18 cm [facility] Work Phone: 10-14-2019 08:30-0500 Pulse (Heart Rate) 88 /min [facility] Work Phone: 10-14-2019 08:30-0500 Pulse Oximetry 98 % [facility] Work Phone: 10-14-2019 08:30-0500 Respiratory Rate 18 /min [facility] Work Phone: 10-14-2019 08:30-0500 SaO2% (BldA) [Mass fraction] 98 % [facility] Work Phone: [facility] Work Phone: 09-04-2019 13:52-0500 BMI (Body Mass Index) 22.9 kg/m2 [facility] Work Phone: 09-04-2019 13:52-0500 Body Temperature 98.5 [degF] Sally [facility] Work Phone: 09-04-2019 13:52-0500 Body weight 66.23 kg [facility] Work Phone: 09-04-2019 13:52-0500 BP Diastolic 90 mm[Hg] [facility] Work Phone: 09-04-2019 13:52-0500 BP Systolic 122 mm[Hg] [facility] Work Phone: 09-04-2019 13:52-0500 BSA (Body Surface Area) 1.77 m2 [facility] Work Phone: 09-04-2019 13:52-0500 Height 170.18 cm [facility] Work Phone: 09-04-2019 13:52-0500 Pulse (Heart Rate) 98 /min [facility] Work Phone: 09-04-2019 13:52-0500 Pulse Oximetry 98 % [facility] Work Phone: 09-04-2019 13:52-0500 Respiratory Rate 18 /min [facility] Work Phone: 09-04-2019 13:52-0500 SaO2% (BldA) [Mass fraction] 98 % [facility] Work Phone: [facility] Work Phone: 08-19-2019 09:32-0500 BMI (Body Mass Index) 23.2 kg/m2 [facility] Work Phone: 08-19-2019 09:32-0500 Body Temperature 98 [degF] [facility] Work Phone: 08-19-2019 09:32-0500 Body weight 67.31 kg Sally [facility] Work Phone: 08-19-2019 09:32-0500 BP Diastolic 80 mm[Hg] [facility] Work Phone: 08-19-2019 09:32-0500 BP Systolic 120 mm[Hg] [facility] Work Phone: 08-19-2019 09:32-0500 BSA (Body Surface Area) 1.78 m2 Sally [facility] Work Phone: 08-19-2019 09:32-0500 Height 170.18 cm [facility] Work Phone: 08-19-2019 09:32-0500 Pulse (Heart Rate) 90 /min [facility] Work Phone: 08-19-2019 09:32-0500 Pulse Oximetry 98 % [facility] Work Phone: 08-19-2019 09:32-0500 Respiratory Rate 18 /min [facility] Work Phone: 08-19-2019 09:32-0500 SaO2% (BldA) [Mass fraction] 98 % Sally Jean-PierreBanner Work Phone: [facility] Work Phone: 07-28-2019 11:31-0400 BMI (Body Mass Index) 22.7 kg/m2 [facility] Work Phone: 07-28-2019 11:31-0400 Body Temperature 98.8 [degF] Sally [facility] Work Phone: 07-28-2019 11:31-0400 Body weight 65.77 kg [facility] Work Phone: 07-28-2019 11:31-0400 BP Diastolic 84 mm[Hg] [facility] Work Phone: 07-28-2019 11:31-0400 BP Systolic 132 mm[Hg] [facility] Work Phone: 07-28-2019 11:31-0400 BSA (Body Surface Area) 1.76 m2 [facility] Work Phone: 07-28-2019 11:31-0400 Height 170.18 cm [facility] Work Phone: 07-28-2019 11:31-0400 Pulse (Heart Rate) 65 /min [facility] Work Phone: 07-28-2019 11:31-0400 Pulse Oximetry 97 % [facility] Work Phone: 07-28-2019 11:31-0400 Respiratory Rate 18 /min [facility] Work Phone: 07-28-2019 11:31-0400 SaO2% (BldA) [Mass fraction] 97 % [facility] Work Phone: [facility] Work Phone: Encounters Encounter Date Encounter [...] Not Available Start: 02-26-2024 Telephone encounter Daisy Dougalss Hematology/Oncology Comment on above: Results - Ct; Patien t Update Start: 02-22-2024 End: 02-22-2024 ambulatory USMAN ABHYERLIN Facility:[facility] Start: 02-20-2024 End: 02-20-2024 ambulatory USMAN ABHYANKAR Facility:[facility] Start: 02-13-2024 End: 02-15-2024 ambulatory [facility] Start: 02-11-2024 End: 02-11-2024 ambulatory ELIAZAR NORMA Not Available Start: 01-29-2024 End: 01-29-2024 ambulatory [facility] Start: 01-28-2024 End: 01-28-2024 ambulatory DIONNE BARNHART Not Available Start: 01-25-2024 Telephone encounter Fransico kulkarni MD Work Phone: Plastic Surgery Comment on above: Appointment Start: 01-25-2024 End: 01-26-2024 ambulatory FIDENCIO Garcia Pichardo [facility] pital Start: 01-23-2024 ambulatory Usman bianchi [...] above: Appointment Start: 01-14-2024 End: 01-14-2024 ambulatory [facility] Start: 01-10-2024 Telephone encounter Historical Mat [...] procedure Fransico Sharp MD Work Phone: [facility] Start: 12-26-2023 End: 12-27-2023 ambulatory [facility] ADRIAN DELGADO Facility:[facility] Start: 12-21-2023 Chart abstracting Usman rincon MD Work Phone: Hematology/Oncology Start: 12-17-2023 End: 12-17-2023 ambulatory [facility] Start: 12-17-2023 End: 12-17-2023 Office outpatient visit 10 minutes Freddie Delgado ZIGZAG ELASTIC ATTACHER-GOVERNMENT AFFAIRS DIRECTOR Work Phone: [facility] Comment on above: Nausea and vomiting, unspecified vomiting type (Primary Dx); Psychophysiological insomnia Start: 12-10-2023 End: 12-10-2023 ambulatory ELIAZAR CASTANEDA Not Available Start: 12-07-2023 Documentation procedure Chris Antonio LCGC Work Phone: Maternal- Medicine at [facility] Comment on above: Outgoing Ca ll Start: 11-20-2023 End: 11-21-2023 Orders Only Roshni Rodriguez RN Maternal Medic p[facility] [place] Comment on above: Placenta previa ante in second trimester (Primary Dx); Multigravida of advanced maternal age in second trimester Start: 11-20-2023 End: 11-20-2023 Office outpatient visit 15 minutes Fidencio Rojas MD Work Phone: Maternal Medicine [place] Comment on above: 20 weeks gestation o f (Primary Dx); Placenta previa antepartum in second trimester; Advanced maternal age in multigravida, second trimester Start: 11-13-2023 Orders Only Juan Ramon Rodríguez CMA [facility] rnal- Medicine at [facility] Comment on above: Multigravida of adva nced maternal age in second trimester; Family history of autism; Family history of mental disorder Start: 11-12-2023 Documentation procedure Chris Antonio LCGC Work Phone: Maternal- Medicine at [facility] Comment on above: Outgoing Ca [...] Available Start: 10-29-2023 Documentation procedure Chris Antonio [facility] Work Phone: Maternal- Medicine at [facility] Comment on above: Incoming Ca ll Start: 10-23-2023 Orders Only Angela Megan DIGITAL DIRECTOR Mat ernal- Medicine at [facility] Comment on above: Multigravida of adva nced maternal age in second trimester (Primary Dx); Family history of autism; Family history of mental disorder Start: 10-22-2023 End: 10-22-2023 ambulatory ELIAZAR R NORMA [facility] pital Start: 10-22-2023 End: 10-22-2023 Telemedicine consultation with patient Katarina Antonio [facility] Work Phone: Maternal- Medicine at [facility] Comment on above: Multigravida of adva nced maternal age in second trimester (Primary Dx); Family history of autism; Family history of mental disorder Start: 10-08-2023 End: 10-08-2023 ambulatory ELIAZAR NORMA Not Available Start: 08-30-2023 End: 08-30-2023 ambulatory ELIAZAR NORMA Not Available Start: 05-29-2023 End: 05-29-2023 ambulatory Shayla Valel Other [employer] Other Start: 05-29-2023 Office outpatient vi sit 15 minutes Shayla Valle [facility] Start: 03-19-2023 End: 03-19-2023 ambulatory NON STAFF Facility:[facility] Start: 03-19-2023 End: 03-19-2023 Admission to same day surgery center BROADCAST TRAFFIC COORDINATOR-C Shayla Valle Work Phone: [facility] Work Phone: Start: 03-19-2023 End: 03-19-2023 ambulatory NON STAFF [facility] Work Phone: Start: 02-12-2023 End: 02-12-2023 ambulatory Yoel Jarrett Other [facility] [employer] Other Start: 02-12-2023 Office outpatient ne w 30 minutes Yoel Jarrett [facility] Start: 02-09-2023 End: 02-10-2023 ambulatory PRADEEP COULTER Facility:[facility] Start: 02-07-2023 Office outpatient ne w 20 minutes Shayla Valle [facility] Start: 02-07-2023 End: 02-07-2023 ambulatory Shayla Tori [facility] [employer] Other Start: 02-07-2023 End: 02-07-2023 Patient encounter procedure BROADCAST TRAFFIC COORDINATOR-C Shayla Tori Work Phone: [facility] Work Phone: Start: 12-27-2022 ambulatory GOVERNMENT AFFAIRS DIRECTOR VITO ROBERSONJUVENAL Facil ity:[facility] Start: 12-16-2022 End: 12-17-2022 ambulatory PRADEEP VITO COULTER Facility:[facility] Start: 07-04-2022 End: 07-05-[address] ELIAZAR CASTANEDA . Facility:[facility] Start: 06-08-2022 End: 07-01-[address] ELIAZAR CASTANEDA . Facility:[facility] Start: 05-23-2022 End: 05-23-[address] ELIAZAR CASTANEDA . Facility:[facility] Start: 05-22-2022 Encounter for preprocedural laboratory examination DR ELIAZAR CASTANEDA . [facility] Start: 05-19-2022 End: 05-20-[address] ELIAZAR CASTANEDA . Facility:[facility] Start: 05-19-2022 End: 05-20-2022 Encounter for preprocedural laboratory examination DR ELIAZAR CASTANEDA . Facility:[facility] Start: 05-18-2022 End: 05-19-[address] ELIAZAR CASTANEDA . Facility:[facility] Start: 05-03-2022 End: 05-04-[address] ELIAZAR CASTANEDA . Facility:[facility] Start: 05-03-2020 End: 05-03-2020 ambulatory Candace Grossman Work Phone: [facility] Work Phone: Start: 05-03-2020 End: 05-04-2020 Patient encounter procedure CANDACE GROSSMAN [facility] Start: 05-03-2020 End: 05-03-2020 Subsequent hospital visit by physician ARMANI FRY [facility] Start: 04-08-2020 End: 04-08-2020 ambulatory Linnea Escobar Work Phone: [facility] Work Phone: Start: 03-29-2020 End: 03-29-2020 General Emilee Sanford Work Phone: [facility] Work Phone: Start: 03-29-2020 End: 03-29-2020 Telemedicine consultation with patient Candace Grossman Work Phone: [facility] Work Phone: Start: 01-08-2020 End: 01-08-2020 Telemedicine consultation with patient Candace Grossman Work Phone: [facility] Work Phone: Start: 12-30-2019 End: 12-30-2019 Patient encounter procedure Emilee Sanford Work Phone: [facility] Work Phone: Start: 12-30-2019 End: 12-30-2019 Telemedicine consultation with patient Candace Grossman Work Phone: [facility] Work Phone: Start: 10-14-2019 End: 10-14-2019 Established patient Bobbi Colon Work Phone: [facility] Work Phone: Start: 09-04-2019 End: 09-04-2019 Established patient Bobbi Colon Work Phone: [facility] Work Phone: Start: 08-19-2019 End: 08-19-2019 Nursing evaluation of patient and report Candace Grossman Work Phone: [facility] Work Phone: Start: 07-28-2019 End: 07-28-2019 Established patient Bobbi Colon Work Phone: [facility] Work Phone: Start: 07-28-2019 End: 07-28-2019 New patient Candace Grossman Work Phone: [facility] Work Phone: Start: 08-13-2017 End: 08-14-2017 Ambulatory Upender Gehlot [place] Procedures Date Procedure Procedure Detail Performing Clinician Start: 01-21-2024 Us preg uterus after 1st trimest 10/01 gestation Ana Peoples MD Work Phone: Start: 11-12-2023 Urnls dip stick/tabl et rgnt non-auto w/o micrscp Dionne BRAN Work Phone: Start: 11-12-2023 URETHRITIS/DISCHARGE PLUS VAGINITIS (HTRX) Dionne BRAN Work Phone: Start: 10-25-2023 UNLISTED LAB TEST Miriam Antonio [employer] Work Phone: Start: 09-10-2023 Adult depression scr eening assessment Katarina Antonio Ordoro Work Phone: Start: 03-19-2023 Esophagogastroduodenoscopy BROADCAST TRAFFIC COORDINATOR-C Shayla Valle Work Phone: Start: 03-01-2023 Microscopic observat ion [Identifier] in Cervix by Cyto stain Dionne BRAN Work Phone: Start: 02-07-2023 X-ray of right knee BROADCAST TRAFFIC COORDINATOR- C Shayla Valle Work Phone: Start: 05-03-2020 Obtaining screen pap smear Candace Grossman Work Phone: Start: 05-03-2020 Iaad ia chlamydia trachomatis CANDACE GROSSMAN Start: 05-03-2020 Iadna diane specie s direct probe tq CANDACE GROSSMAN Start: 05-03-2020 Iadna diane specie s direct probe tq Candace Castellano Dianelys Work Phone: Start: 05-03-2020 Microscopic observat ion [Identifier] in Cervix by Cyto stain Katarina Antonio [facility] Work Phone: Start: 04-08-2020 Diast [...] Use Disorders Identification Test ___([id number]) Candace Grossman GOVERNMENT AFFAIRS DIRECTOR Work Phone: Start: 07-28-2019 ANXIETY DISORDER [...] (1 - 1-dose 60+ series) [facility] Start: 01-02-2034 Urine microalbumin profile DTaP,Tdap,Td Vaccine (7 - Td or Tdap) [facility] Start: 03-12-2028 Screening for malign ant neoplasm of cervix HPV/[facility] Start: 03-01-2028 Screening for malign ant neoplasm of cervix [facility] Start: 01-25-2028 DTaP,Tdap and Td Vaccines (6 - Td or Tdap) DTaP,Tdap and Td Vaccines (6 - Td or Tdap) [facility] Start: 01-25-2028 Urine microalbumin profile DTaP,Tdap,Td Vaccine (2 - Td or Tdap) [facility] Start: 12-16-2024 Adult BMI Screening Adult BMI Screen ing [facility] Start: 12-16-2024 Tobacco Screening Tobacco Screening [facility] Start: 10-23-2024 End: 10-23-2024 Unlisted Lab Test Unlisted Lab Test Lab Routine Multigravida of advanced maternal age in second trimester Family history of autism Family history of mental disorder Expected: 10/23/2024 (Approximate), Expires: 10/23/2024 [facility] Work Phone: Comment on above: Expected: 10/23/2024 (Approximate), Expires: 10/23/2024 Start: 09-10-2024 Adult BMI Screening Adult BMI Screen ing [facility] Start: 09-10-2024 Depression Screening Depression Scre ening [facility] Start: 09-10-2024 Tobacco Screening Tobacco Screening [facility] Start: 03-17-2024 End: 03-17-2024 Admission to same day surgery center 03/17/2024 11:30 AM EDT Visit (SP) Office Plastic Surgery [address] [place] [address] Tana Cervantes, ZIGZAG ELASTIC ATTACHER.GOVERNMENT AFFAIRS DIRECTOR [address] [place] [address] post op Plastic Surgery Comment on above: [...] 10:45 AM EDT Hospital Encounter Admitting [address] [place] [address] Fransico Sharp MD [address] [place], [place] [id number] Malignant melanoma of skin (HCC) [C43.9] Admitting Comment on above: Malignant melanoma o f skin (HCC) [C43.9] Start: 03-14-2024 End: 03-14-2024 Patient encounter procedure 03/14/2024 8:30 AM EDT Appointment Molecular Imaging [address] [place] [address] MELANOMA-NM LYMPH NODE IMAGING Molecular Imaging Comment on above: MELANOMA-NM LYMPH NO DE IMAGING Start: 03-07-2024 End: 03-07-2024 Anesthesia consultation 03/07/2024 1:20 PM EDT PAT Pre Anesthesia [address] [place] [address] 9, Pacc Main [address] [place] [address] pacc Pre Anesthesia Comment on above: pacc Start: 03-06-2024 End: 03-06-2024 Patient encounter procedure 03/06/2024 8:00 AM EDT [facility] Maternal Medicine [address] [address] [place] [address] [address] [place] [id number] Consult Maternal Medicine Comment on above: Consult Start: 02-22-2024 End: 02-22-2024 Patient encounter procedure 02/22/2024 10:45 AM EDT Appointment Radiology Pet [facility] [address] [place] [address] ct chest and stn w Radiology Pet CT Comment on above: ct chest and stn w Start: 02-20-2024 End: 02-20-2024 ambulatory 02/20/2024 3:00 PM EDT Results Only [facility] [address] [place] [address] [facility] Start: 02-20-2024 End: 01-22-2025 CBC W Auto Differential panel - Blood COMPLETE BLOOD COUNT AND DIFFERENTIAL Lab Routine Malignant melanoma of skin (HCC) Expected: 02/20/2024 (Approximate), Expires: 01/22/2025 [facility] Comment on above: Expected: 02/20/2024 (Approximate), Expires: 01/22/2025 Start: 02-20-2024 End: 01-22-2025 Comprehensive metabolic 2000 panel - Serum or Plasma COMPREHENSIVE METABOLIC PANEL Lab Routine Malignant melanoma of skin (HCC) Expected: 02/20/2024 (Approximate), Expires: 01/22/2025 [facility] Comment on above: Expected: 02/20/2024 (Approximate), Expires: 01/22/2025 Start: 02-20-2024 End: 02-21-2025 CT Chest W contrast IV CT CHEST W IVCON Radiology Routine Malignant melanoma of skin (HCC) Expected: 02/20/2024 (Approximate), Expires: 02/21/2025 [facility] Comment on above: Expected: 02/20/2024 (Approximate), Expires: 02/21/2025 Start: 02-20-2024 End: 02-21-2025 CT Neck W contrast IV CT NECK SOFT TISSUE W IVCON Radiology Routine Malignant melanoma of skin (HCC) Expected: 02/20/2024 (Approximate), Expires: 02/21/2025 [facility] Work Phone: Comment on above: Expected: 02/20/2024 (Approximate), Expires: 02/21/2025 Start: 02-20-2024 End: 01-22-2025 Lactate dehydrogenase [Enzymatic activity/volume] in Serum or Plasma LACTATE DEHYDROGENASE Lab Routine Malignant melanoma of skin (HCC) Expected: 02/20/2024 (Approximate), Expires: 01/22/2025 [facility] Comment on above: Expected: 02/20/2024 (Approximate), Expires: 01/22/2025 Start: 02-19-2024 Subsequent hospital visit by physician 02/19/2024 Hospital Encounter Surgery Center [address] [id number] Fransico Sharp MD [address] [place], [place] [id number] Malignant melanoma of skin (HCC) [C43.9] Surgery [...] Start: 02-12-2024 End: 02-12-2024 Patient encounter procedure [facility] Comment on above: MELANOMA-NM LYMPH NO DE IMAGING Start: 01-14-2024 End: 01-14-2024 Telemedicine consultation with patient 01/14/2024 10:15 AM EDT Telemedicine [facility] [address] [place] [address] [address] [place] [address] LobitoGurjit MD [address] [place] [address], [address] [place] [address] [facility] Start: 12-17-2023 End: 12-17-2023 Patient encounter procedure 12/17/2023 1:45 PM EDT Office Visit [facility] [address] [place] [address] Freddie Delgado APRN-CNP [address] [place] [address], [place] [address] [facility] Start: 12-10-2023 End: 12-10-2023 Patient encounter procedure 12/10/2023 2:20 PM EDT Routine [facility] [address] [place] [id number] Eliazar Castaneda, [address] [place] [address] [facility] Start: 11-20-2023 End: 11-20-2023 Patient encounter procedure 11/20/2023 8:00 AM EST Appointment [facility] [address] [place] [phone] [facility] Start: 11-12-2023 End: 11-12-2024 US for US OB ANATOMY SINGLE W US OB CERVICAL LENGTH Imaging Routine Screening, , for anatomic survey Expected: 11/12/2023 (Approximate), Expires: 11/12/2024 [facility] Comment on above: Expected: 11/12/2023 (Approximate), Expires: 11/12/2024 Start: 10-01-2023 Behavioral Health Screening Behavioral Health Screening [facility] Start: 10-01-2023 Depression Assessment Depression Ass essment [facility] Start: 06-01-2023 Covid-19 Vaccine ( season) Covid-19 Vaccine () [facility] Start: 06-01-2023 Influenza vaccination P [facility] Start: 05-03-2023 Screening for malign ant neoplasm of cervix Pap Smear [facility] Start: 03-19-2023 [facility] Start[facility] 06[facility]02-[facility]: Start: 06-01-2020 [facility] Start: 12-02-2019 Dental Comp Exam [facility] Work Phone: Start: 11-17-2019 Women's Health [facility] Work Phone: Start: 10-21-2019 Lipid 1996 panel [facility] Work Phone: Start: 10-14-2019 [facility] Work Phone: Comment on above: Note: Please make a referral to: Start: 09-16-2019 Dental Comp Exam [facility] Work Phone: Start: 08-25-2019 Medical Establ ished Patient [facility] Work Phone: Start: 08-20-2019 Urine Pregnanc y Test, [facility] House [facility] Work Phone: Start: 2018 Screening for malign ant neoplasm of cervix HPV Testing [facility] Start: 2009 Screening for malign ant neoplasm of cervix [facility] Start: 2007 DTaP/Tdap/Td vaccine (1 - Tdap) DTaP/Tdap/Td vaccine (1 - Tdap) [facility] Start: 2007 Hepatitis B Vaccine (1 of 3 - 19+ 3-dose series) Hepatitis B Vaccine (1 of 3 - 19+ 3-dose series) [facility] Start: 2006 Adult BMI Follow Up Plan Adult [facility] Plan [facility] Start: 2006 Annual PCP Team Living Advisor lorne Disease Visit Annual PCP Team Chronic Disease Visit [facility] Start: 2006 Hepatitis C screening Hepatitis C Sc reening [facility] Start: 2006 HIV screening HIV Screening [facility] Start: 2006 Spirometry Spirometry [facility] Start: 2003 HIV screening [facility] screen [facility] Start: 1989 Varicella vaccine (1 of 2 - 2-dose childhood series) Varicella vaccine (1 of 2 - 2-dose childhood series) [place] Adjt tis trns/reargm t f/c/c/m/n/a/g/h/f 10sqcm/< TRANSFER / REARRANGEMENT ADJACENT TISSUE FACE/NECK DEFECT 10 SQ CM OR LESS Malignant melanoma of skin (HCC) [facility] A60 Alpha fetoprotein, maternal Alpha fetoprotein, maternal Lab Routine Second trimester Ordered: 11/12/2023 [facility] Work Phone: Comment on above: Ordered: 11/12/2023 Bx/exc lymph node op en deep cervical node BIOPSY NODE CERVICAL NECK Malignant melanoma of skin (HCC) [facility] A60 End: 05-03-2020 C.trachomatis N.gonorrhoeae DNA, Thin Prep C.trachomatis N.gonorrhoeae DNA, Thin Prep Microbiology Routine Once for 1 Occurrences starting 05/03/2020 until 05/03/2020 [facility] MD Comment on above: Once for 1 Occurrenc es starting 05/03/2020 until 05/03/2020 C.trachomatis N.gonorrhoeae DNA, Thin Prep C.trachomatis N.gonorrhoeae DNA, Thin Prep Microbiology Routine 05/03/2020 7:32 AM EDT [place], [place] Excision malignant lesion f/e/e/n/l >4.0 cm EXCISION MALIGNANT LESION FACE OVER 4.0 CM Malignant melanoma of skin (HCC) [facility] Inj radioactive trac er for id of sentinel node INJECTION PROCEDURE RADIOACTIVE TRACER FOR IDENTIFICATION OF SENTINEL NODE Malignant melanoma of skin (HCC) [facility] A60 Intraop sentinel lym ph node id w/dye injection INTRAOPERATIVE ID OF SENTINEL LYMPH NODE(S) INCL'D INJECTION OF NON-RAD DYE WHEN PERFORMED Malignant melanoma of skin (HCC) [facility] A60 End: 02-02-2025 NM Lymph node Views NM LN [facility]AG[facility] MELANOMA Radiology Routine Malignant melanoma of skin (HCC) 1 Occurrences starting 01/06/2024 until 02/02/2025 [facility] Work Phone: Comment on above: 1 Occurrences starti ng 01/06/2024 until 02/02/2025 Patient Education Hiatal Hernia (DC) [facility] Work Phone: [facility] A[facility] Immunizations Immunization Date Immunization Notes Care Provider Maryuri gómez 05-11-2023 influenza virus vaccine, unspecified formulation Katarina Paco [facility] Work Phone: [facility] 07-16-2022 SARS-COV-2 (COVID-19 ) vaccine, mRNA, spike protein, LNP, bivalent, PF Dionne BRAN Work Phone: [facility] 01-24-2018 tetanus toxoid, redu camden diphtheria toxoid, and acellular pertussis vaccine, adsorbed Dionne BRAN Work Phone: [facility] Payers Date Payer Category Payer Self-pay 2022 Medicaid [id number] 2019 Unknown 1 - [facility] [id number] [id number]0.6.3 2017 Unknown [id number] 1988 Unknown [id number] 2.16.84 0.1.590176.3.579.2.593 1988 Unknown [id number] 2.16.84 0.1.724597.3.579.2.593 1988 Unknown [id number] 2.16.84 0.1.604271.3.579.2.593 1988 Unknown [id number] 2.16.84 0.1.965831.3.579.2.593 1988 Unknown [id number] 2.16.84 0.1.551588.3.579.2.593 1988 Unknown [id number] 2.16.84 0.1.869091.3.579.2.593 1988 Unknown [id number] 2.16.84 0.1.092854.3.579.2.593 1988 Unknown [id number] 2.16.84 0.1.728832.3.579.2.593 1988 Unknown [id number] 2.16.84 0.1.128883.3.579.2.593 1988 Unknown [id number] 2.16.8 40.1.086664.3.579.2.1285 1988 Unknown [id number] 2.16.8 40.1.415388.3.579.2.1285 1988 Unknown [id number] 2.16.8 40.1.008953.3.579.2.1285 1988 Unknown [id number] 2.16.8 40.1.526079.3.579.2.1285 1988 Unknown [id number] 2.16.8 40.1.312327.3.579.2.1285 1988 Unknown [id number] 2.16.84 0.1.099974.3.579.2.1285 1988 Unknown [id number] 2.16.8 40.1.318211.3.579.2.1285 1988 Unknown [id number] 2.16.8 40.1.299675.3.579.2.1285 1988 Unknown [id number] 2.16.8 40.1.412324.3.579.2.1285 1988 Unknown [id number] 2.16.84 0.1.293546.3.579.2.1258 1988 Unknown [id number] 2.16.84 0.1.457545.3.579.2.1258 1988 Unknown [id number] 2.16.84 0.1.431740.3.579.2.1258 1988 Unknown [id number] 2.16.84 0.1.199682.3.579.2.1258 1988 Unknown [id number] 2.16.84 0.1.175492.3.579.2.1258 1988 Unknown [id number] 2.16.84 0.1.638644.3.579.2.1258 1988 Unknown [id number] 2.16.84 0.1.608857.3.579.2.1258 1988 Unknown [id number] 2.16.84 0.1.568256.3.579.2.1258 1988 Unknown [id number] 2.16.84 0.1.316468.3.579.2.1258 1988 Unknown [id number] 2.16.84 0.1.796824.3.579.2.1258 1988 Unknown [id number] 2.16.840 .1.755592.3.579.2.1259 1959 Medicaid [id number] 2. 16.840.1.685309.19 Self-pay [id number] 2.16.840 .1.984339.3.140.1.05078.5.4 Unknown [employer] [id number] Unknown [id number] 2.16.8 40.1.235386.3.579.2.531 Unknown [id number] 2.16.8 40.1.249339.3.579.2.531 Social History Date Type Detail Facility Assertion Alcohol consumpt ion screening (procedure) [facility] Work Phone: Assertion [facility] Assertion Finding of alcoh ol intake (finding) [facility] Work Phone: Assertion Sexually active (finding) [facility] Work Phone: Assertion Gender identity finding (finding) [facility] Work Phone: Assertion Finding of sexua l orientation (finding) [facility] Work Phone: Tobacco smoking status Unknown if ever smoked [facility] Assertion Emotional stress (finding) [facility] Work Phone: Start: 1990 [facility] Assertion Contraception (finding) [facility] Work Phone: Start: 09-10-2023 End: 02-20-2024 Sex Assigned At [facility] Start: 1990 Sex Assigned At Female [facility] Start: 04-05-2022 End: 12-26-2023 Tobacco smoking status NHIS Never smoked tobacco [facility] Start: 04-05-2022 End: 12-26-2023 Tobacco use and exposure Smokeless tobacco non-user [facility] Start: 10-10-2023 End: 12-17-2023 Alcohol intake Ex-drinker (finding) [facility] Start: 09-10-2023 End: 02-20-2024 History of Social function [facility] How hard is it for you to pay for the very basics like food, housing, medical care, and heating Very hard [facility] Start: 07-12-2023 [facility] Start: 11-12-2023 Alcohol intake Lifetime non-d rhys (finding) [facility] Start: 03-09-2023 [facility] Start: 03-09-2023 Alcohol Comment Caffeine intak e: 1-2 cups per day coffee, pop [facility] Start: 12-26-2023 End: 01-21-2024 Alcohol intake Current drinker of alcohol (finding) [facility] NEGATED: Highlighted row Assertion He has not had 5 or more drinks in a day within the past year. [facility] Work Phone: NEGATED: Highlighted row Assertion Exposure to pollution (event) [facility] Work Phone: NEGATED: Highlighted row Assertion Tobacco user (finding) [facility] Work Phone: NEGATED: Highlighted row Assertion Current drinker of alcohol (finding) [facility] Work Phone: NEGATED: Highlighted row Assertion Finding relating to drug misuse behavior (finding) [facility] Work Phone: Goals Date Patient Goal Desired Activity /State Personal health goal Mental Status Date Assessment Result Facility Cognitive function 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 Fax sent to request path for a reread Included fed ex label. [facility] 03-11-2024 Miscellaneous Notes Formattin g of this note might be different from the original. Fax sent to request path for a reread Included fed ex label. documented in this encounter [facility] 03-06-2024 Evaluation note Diagnosis Skin cancer- Primary Unspecified malignant neoplasm of skin, site unspecified * Assessment & Plan Note - Ana Peoples MD - 03/06/2024 8:05 AM EDT Associated Problem(s): Skin cancer 03/06/[address] of neck and chest. I emailed with her oncologist via [employer]. He is ok with her going to39 weeks. I spoke with her OBGYN physician, Dr. Castaneda, who is in agreement. Pt will deliver at [facility]. Pt tells me induction set up [...] MD documented in this encounter [facility]06-06-2024 NoteHNO ID: [id number] Author: ANA PEOPLES MD Service: ? Author Type: Physician Type: Progress Notes Filed: 03/06/2024 08:08 Note Text: [facility] STAFF Video visit follow up I have communicated my name and active licensure. The patient's identity and physical location were verified at the time of this visit. Either the patient or their legal student services representative has been informed of the risks [...] - Primary Current Assessment AND Plan 03/06/2024 [facility] Pt had CT of neck and chest. I emailed with her oncologist via [employer]. He is ok with her going to 39 weeks. I spoke with her OBGYN physician, Dr. Castaneda, who is in agreement. Pt will deliver at [facility]. Pt tells me induction set up [...] yesterday. All questions answered. MD Ana Britton [facility]06-06-2024 History of Present illness Narrative* Ana Peoples MD - 03/06/2024 7:58 AM EDT [facility] STAFF Video visit follow up I have communicated my name and active licensure. The patient's identity and physical location wereverified at the time of this visit. Either the patient or their legal student services representative has been informed of the risks and benefits of -- and alternatives to -- treatment through a remote evaluation andconsents to proceed with the evaluation remotely. Pt is a 33 year old at 36w0d who has the following issues. Please see recommendations in problem based charting. Problem List Items Addressed This Visit Oncology Skin cancer - Primary Current Assessment & Plan 03/06/2024 [facility] Pt had CT of neck and chest. I emailed with her oncologist via [employer]. He is ok with her going to39 weeks. I spoke with her OBGYN physician, Dr. Castaneda, who is in agreement. Pt will deliver at [facility]. Pt tells me induction set up [...] Britton MD documented in this encounterUniversity [facility]06-[facility] Telephone encounter Note * Telephone Encounter - Daisy Murray RN - 03/05/2024 9:23 AM EDT Pt updated Daisy Murray RN [facility]06-05-2024 Miscellaneous Notes* Telephone Encounter - [...] Murray RN documented in this encounterUniversity [facility]als [facility]06-05-2024 Telephone encounter Note * Telephone Encounter - Usman Goldberg MD - 03/05/2024 8:59 AM EDT I think I already communicated that with her - CT's were negative for any metastatic disease. [facility] Work Phone: [phone]) [phone] Telephone encounter Note* Telephone Encounter - Daisy Murray RN - 03/04/2024 3:57 PM EDT Pt requesting CT results Louisa: Please review and advise Daisy Murray RN [facility]06-03-2024 Telephone encounter Note* Telephone Encounter [...] Instructions provided to reschedule BIBI. [facility]06-03-2024 Miscellaneous Notes* Telephone Encounter - [...] Thank you documented in this encounterUniversity Hospitals [facility]06-03-2024 Telephone encounter Note * Telephone Encounter - Ana Peoples MD - 03/03/2024 11:03 AM EDT 03/03/2024 MFM Message left on pts phone to look at her my chart messages. Ana Peoples MD [facility]06-03-2024 Miscellaneous Notes* Telephone Encounter - Ana Peoples MD - 03/03/2024 11:03 AM EDT 03/03/2024 MFM Message left on pts phone to look at her my chart messages. Ana Peoples MD documented in this encounterUniversity Hospitals [facility]05-31-2024 Telephone encounter Note * Telephone Encounter - Ward Orta - 02/29/2024 3:25 PM EDT Pt calling in to cancel surgery on 03/14 and pre op appointment. Can you call her back? Thank you [facility]05-28-2024 Telephone encounter Note* Telephone Encounter - Usman Goldberg MD - 02/26/2024 2:58 PM EDT She texted me - CT's look good. Will need a chest ct later. [facility] Work Phone: [phone]) [phone] Miscellaneous Notes* Telephone Encounter - Usman Goldberg [...] Murray RN documented in this encounterUniversity Hospitals [facility]05-28-2024 Telephone encounter Note * Telephone Encounter - Sylvia Alcala [facility] - 02/26/2024 12:43 PM EDT Patient calling. Doesn't know how to proceed. States her oncologist is out of town and no one can read the results. States she is 35 weeks . Please call patient back to discuss. [facility]05-28-2024 Telephone encounter Note* Telephone Encounter - Daisy Murray RN - 02/26/2024 12:21 PM EDT Pt calling for CT results. She is aware Dr Deshpande is out of office this week and will be in touch withhis response Sunday. Louisa: Please advise Daisy Murray RN [facility]05-24-2024 NoteHNO ID: [id number] Author: PACHECO BOWEN RN Service: ? Author [...] Mckeon DATE: February 22, 2024 TIME: 10:46 [facility]05-24-2024 NoteHNO ID: [id number] Author: BRANDON COULTER RT(R) Service: ? Author [...] PATIENT PRESENTS WITH AN IMPLANTABLE OR ATTACHED FOOD CLERK: No RADIOLOGY DEPARTMENT: CT; Exam(s) Completed: Chest and Neck PERIPHERAL IV DATA: Site assessment: Clean,Dry and Intact, Site disposition Discontinued SIGNED BY: Brandon Coulter RT(R) February 22, 2024 11:10 [facility]04-26-2024 Telephone encounter Note* Telephone Encounter - Cynthia Petty - 01/25/2024 1:47 PM EDT Pt is not able to make the appt on 02/11; aloso wondering if this should be on March 14 instead? Thanks [facility]04-26-2024 Miscellaneous Notes* Telephone Encounter - Cynthia Petty - 01/25/2024 1:47 PM EDT Pt is not able to make the appt on 02/11; aloso wondering if this should be on March 14 instead? Thanks documented in this encounterUniversity Hospitals Ge[facility] Center04-25-2024 Telephone encounter Note * Telephone Encounter - Angela Hilario - 01/24/2024 12:44 PM EDT Vy is scheduled for her CT scan on 02/21 at 11am. She is scheduled for her labwork still, on 02/19. I spoke with Vy and she is in agreement. Angela Arthur [facility]04-25-2024 Miscellaneous Notes* Telephone Encounter - [...] not included. documented in this encounterUniversity Hospitals [facility]04-25-2024 Telephone encounter Note * Telephone Encounter - Brandon Churchill RN - 01/24/2024 12:23 PM EDT Clerical: Please call pt to schedule CT scans. Brandon Churchill RN [facility] Work Phone: 1(928) 447-593004-25-2024 Telephone encounter Note* Telephone Encounter - Usman Goldberg MD - 01/24/2024 12:18 PM EDT It's ok to move up - but I'd want to know closer to delivery (33 weeks - 34 weeks) because then there won't be a need for additional scans later. Labs are to be done prior to CT. [facility]04-25-2024 Telephone encounter Note* Telephone Encounter [...] of 02/19? Brandon Churchill RN [facility]04-25-2024 Telephone encounter Note* Telephone Encounter [...] Please advise Daisy Murray RN [facility]04-24-2024 Telephone encounter Note* Telephone Encounter - Usman Goldberg MD - 01/23/2024 4:24 PM EDT We won's be doing scans for 4 weeks.... that works out to be around 33 weeks gestation Does that sound right? (February 19) Thanks, louisa. [facility]04-24-2024 Telephone encounter Note* Telephone Encounter - Brandon Churchill RN - 01/23/2024 3:54 PM EDT Pt calls regarding CT scans. Please place orders. Thanks! Brandon Churchill, RN [facility]04-23-2024 Telephone encounter Note* Telephone Encounter [...] questions answered. Ana Peoples MD [facility]04-23-2024 Miscellaneous Notes* Telephone Encounter - [...] Peoples MD documented in this encounterUniversity Hospitals [facility]04-23-2024 Telephone encounter Note * Telephone Encounter - Brandon Churchill RN - 01/22/2024 1:02 PM EDT Images from the original note were not included. [facility]04-23-2024 NoteHNO ID: [id number] Author: ANA PEOPLES MD Service: ? Author [...] Skin cancer Current Assessment AND Plan 01/22/2024 [facility] Pt is a 33 year old 29w4d with a new diagnosis of malignant melanoma located above the left upper lip. Oncologist Usman Goldberg MD Surgeon Fransico Sharp MD Pts general OBGYN in [place], [place]: Eliazar Castaneda MD The plan is for wide local excision with reconstruction, which may take multiple trips to the OR. The OR plan involves radioactive tracer for sentinal node She has not been imaged for staging. She comes to [facility] today for discussion on when [...] previa antepartum in second trimester Overview 01/21/2024 [facility] Previa resolved on US today. Placenta > 2cm away from the cervix. Ana Peoples MD Other Visit Diagnoses Malignant melanoma of skin (HCC) I spent 70 minutes in the visit, with more than 50% of the total npjq-ib-qwbz time of the visit in counseling / coordination of care. I shared my findings and recommendations via the shared medical record or via the mail to the referring provider. Ana Peoples, [facility]04-23-2024 History of Present illness Narrative* Ana [...] Fransico Sharp MD [facility] general O[facility]YN in [place], [place]: Eliazar Castaneda MD The plan is for wide local excision with reconstruction, which may take multiple trips to the OR. The OR plan involves radioactive tracer for sentinal node She has not been imaged for staging. She comes to [facility] today for discussion on when [...] previa antepartum in second trimester Overview 01/21/2024 [facility] Previa resolved on US today. Placenta > 2cm away from the cervix. Ana Peoples MD Other Visit Diagnoses Malignant melanoma of skin (HCC) I spent 70 minutes in the visit, with more than 50% of the total tccf-lz-efhl time of the visit in counseling / coordination of care. I shared my findings and recommendations via the shared medical record or via the mail to the referring provider. Ana Peoples MD documented in this encounterUniversity Hospitals [facility]04-19-2024 Miscellaneous Notes* Telephone Encounter - [...] Crowley MA documented in this encounterUniversity Hospitals Geauga Medical Center04-11-2024 Miscellaneous Notes* Telephone Encounter - Rolo Parada - 01/10/2024 9:18 AM EDT [employer] msg was sent to patient asking for call back to this coordinator to schedule MFM consultation. documented in this encounterUniversity Hospitals Geauga [facility] Center04-10-2024 Miscellaneous Notes* Telephone Encounter - Surjit Griggs RN - 01/09/2024 12:35 PM EDT Reached out to patient. Instructions provided to see a maternal medicine specialist within the [facility] per Dr. Sharp. This nurse [...] needto see one at the [facility]? She is asking for a call.. she is very nervous documented in this encounterUniversity Hospitals Geauga Medical Center04-05-2024 Instructions* Patient Instructions* Valerie Bedoya RN - 01/04/2024 3:21 PM EDT PLAN: - Photos taken and uploaded to chart today via [employer] - Pathology re-read to be obtained - Surgical plan is for resection of left upper lip melanoma, reconstruction with local tissue rearrangement, and a sentinel lymph node biopsy - Surgery at [facility] or [facility]. Likely plan is to wait for surgical intervention until after 36 weeks . - Pre op clearance (PACC) prior to surgery for clearance to receive general anesthesia; must be done at a [facility] location - Nuclear medicine appointment at [facility] the morning of surgery - Post op 7-10 days with Tana Cervantes APRN.CNP - Consult placed to Maternal Medicine (MFM) for risk assessment and guidance: call [phone] to schedule. - Recommend regular dermatology follow-up for FBSE - Q3 months for 2 years, Q6 months for 5 years and Q1 year for the rest of his/her life Our imaging scheduler will contact you to set up all [...] with questions/concerns. documented in this encounterUniversity Hospitals Geauga Medical Center03-29-2024 NoteHNO ID: [id number] Author: FRANSICO SHARP MD Service: ? Author Type: Physician Type: Progress Notes Filed: 01/06/2024 09:42 Note Text: DATE: January 03, 2024 CC: New Melanoma Patient Referring Physician: Margarita Kim MD at [facility] [place] HPI: Vy Mckeon is a 33 year [...] 400 mg by mouth. omeprazole magnesium (ACID BEAD MACHINE OPERATOR, OMEPRAZOLE, ORAL) Take by mouth as directed. [...] left upper lip with a variegated pattern, scholarship counselor in the middle with a number of dark spots. The lesion measures 1 cm in diameter. Photos taken, see [facility] LABS: Pathology Report [...] taken and uploaded to chart today via [employer] - Pathology re-read to be obtained - Surgical plan is for resection of left upper lip melanoma, reconstruction with local tissue rearrangement, and a sentinel lymph node biopsy - Surgery at [facility] or . Likely plan is to wait for surgical intervention until after 36 weeks . - PACC prior to surgery - Nuclear medicine appointment at [facility] the (more content not included)... [facility]03-29-2024 History of Present illness Narrative* Fransico Sharp MD - 12/28/2023 8:54 AM EDT Images from the original note were not included. DATE: January 03, 2024 CC: New Melanoma Patient Referring Physician: Margarita Kim MD at [facility] [place] HPI: Vy Mckeon is a 33 year [...] 400 mg by mouth. omeprazole magnesium (ACID BEAD MACHINE OPERATOR, OMEPRAZOLE, ORAL) Take by mouth as directed. [...] left upper lip with a variegated pattern, scholarship counselor in the middle with a number of dark spots. The lesion measures 1 cm in diameter. Photos taken, see [facility] LABS: Pathology Report [...] taken and uploaded to chart today via [employer] - Pathology re-read to be obtained - Surgical plan is for resection of left upper lip melanoma, reconstruction with local tissue rearrangement, and a sentinel lymph node biopsy - Surgery at [facility] or . Likely plan is to wait for surgical intervention until after 36 weeks . - PACC prior to surgery - Nuclear medicine appointment at [facility] the morning of surgery - Post op 7-10 days with Tana Cervantes APRN.GOVERNMENT AFFAIRS DIRECTOR - Consult placed to [facility] for risk assessment and guidance: call [phone] to schedule. - Recommend regular dermatology follow-up for FBSE - Q3 months for 2 years, Q6 months for 5 years and Q1 year for the rest of his/her life - Patient follows with OBGYN Dr. Castaneda in [place], [place] Follow up after 36 weeks of and with [facility]'s recommendations. The patient is seen and examined by Dr. Sharp and the following reflects his service. 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 While I believe this jonathan a [...] Sharp MD documented in this encounterUniversity Hospitals Geauga Medical Center03-27-2024 NoteHNO ID: [id number] Author: USMAN GOLDBERG MD Service: ? Author Type: Physician Type: Progress Notes Filed: 12/27/2023 12:46 Note Text: NAME: Vy Mckeon [facility] NO.: [id number] DATE OF SERVICE: December 26, 2023 (Krystal) Referring Provider: Self Consultation requested by Self Referred for an opinion regarding Ms. Vy Mckeon, and my final recommendations will be communicated back to the requesting physician by way of shared medical record or letter via US mail. Additional Clinicians involved in Vy Mckeon's care:Freddie Deglado DIAGNOSIS: Cutaneous melanoma ASSESSMENT: 33 year old [...] 400 mg by mouth. omeprazole magnesium (ACID BEAD MACHINE OPERATOR, OMEPRAZOLE, ORAL) Take by mouth as directed. PNV no.95/ferrous fum/folic ac ( ORAL) Take by mouth as directed. LABORATORY VALUES: WBC (k/uL) Date Value 12/26/2023 9.72 RBC (m/uL) Date Value 12/26/2023 3.99 Hemoglob (more content not included)...[facility]03-18-2024 History of Present illness Narrative* Freddie Delgado, ABHI-GOVERNMENT AFFAIRS DIRECTOR - 12/17/2023 1:45 PM EDT Subjective Patient ID: Vy Mckeon is a 33 y.o. female. FRANDY Mcclellan presents to the office for follow up.She was last seen with continued depression and anxietyand had stopped taking Zoloft, hydroxyzine and trazodone because she was found to be . She is 24 weeks along in her with Placenta previa. Last [facility] visit 12/11/23 with . carrier screening result [...] normal. Behavior: Behavior normal. Assessment/Plan Follow-up with [facility] for follow-up on hematology result showing minimally [...] for sleep. Note completed with assistance of BROADCAST TRAFFIC COORDINATOR student. GIOVANNI Darling 12/17/23 1538 documented in this encounter[facility] Miscellaneous Notes* Medical Student - Valerie [...] the legal medical record. documented in this encounterPar[facility]03-18-2024 Progress note* Medical Student - Valerie [...] a part of the legal medical record. [facility]03-08[facility] History of Present illness Narrative* TAMMY [...] if anything comes up. documented in this encounterPar[facility]02-20-2024 History of Present illness Narrative* Fidencio Rojas MD - 11/20/2023 9:30 AM EST Video Visit via Real-time Synchronous Audiovisual Provider Location: [facility] MATERNAL- MEDICINE AT [facility] [address], [address] [place] [address] Patient Location: Other Patient Location Sieve Maker: None Video Visit Consent Statement: I discussed [...] that there are some limitations compared to bwnh-eo-iulh evaluations. We elected to proceed. REASON FOR [...] for nausea or vomiting., Disp: , Rfl: [id number] 29-1-400 mg combo pack,tablet & capDR, Take [...] patient is in complete care of her electorate officer. Patient does have ultrasound and office visit scheduled with us. Thank you for allowing me to participate in the care of Vy Mckeon. If there any questions please do not hesitate to contact us. Fidencio Rojas MD Maternal- Medicine [facility] [address] [facility] 1st [place] [address] [facility], the CDC, and other organizations representing maternal and public health professionals recommend that , , and lactating people and those considering receive the COVID-19 vaccination. Vaccination is the best method to reduce maternal and complications of SARS-CoV-2 infection. This document was created with [employer] technology. Though I make every effort to review the dictation as it is transcribed, on occasion the spoken word can be misinterpreted by the technology leading to inappropriate words, phrases, or sentences. This note is addressed to the requesting provider as a consultation for clinical guidance. Specificmedical abbreviations are occasionally used and those are generally approved by the [place]?Board of?Obstetrics and?Gynecology?as well as?Justyna s abbreviations. The above plan of care was based solely on the diagnoses for which a consultation was requested. ?More frequent testing may be indicated based on her other medical/obstetrical conditions. The management of other or medical conditions is beyond the scope of requested consultation and will c ontinue to be followed by the primary electorate officer or primary care provider. Note to patient: [...] opinion of the practitioner. documented in this encounterParma [facility] Hospital02-12-2024 History of Present illness Narrative* SHANT España - 11/12/2023 1:00 PM EST Reason for Appointment: Patient ID: Vy Mckeon is a 33 y.o. female who presents for Routine Visit Patient presents today for Return OB appointment. Current Medications: has a current medication list which includes the following prescription(s): valacyclovir. Medical History: Active Ambulatory Problems Diagnosis Date Noted Attention deficit hyperactivity disorder ([facility]) 02/13/2023 Bipolar disorder, most recent episode depressed ([facility]) 02/13/2023 Depression ([facility]) 02/13/2023 Generalized anxiety disorder ([facility]) 02/13/2023 Insomnia 02/13/2023 Mild episode of recurrent major depressive disorder (HCC) ([facility]) 02/13/2023 Mild intermittent asthma without complication ([facility]) 02/13/2023 Asthma exacerbation, mild ([facility]) 02/13/2023 Mild persistent asthma with (acute) exacerbation ([facility]) 02/19/2023 Second trimester 10/08/2023 AMA (advanced maternal age) primigravida 35+, unspecified trimester 10/08/2023 Resolved Ambulatory Problems Diagnosis Date Noted No Resolved Ambulatory Problems Past Medical History: Diagnosis Date ADHD (attention deficit hyperactivity disorder) ([facility]) Allergies Anxiety Asthma ([facility]) Bipolar disorder ([facility]) Family History Problem Relation Name [...] obtained without difficulty and patient was given [facility] order to have obtained. Follow Up: Patient is to return to our office in 4 weeks for routine OB appointment Documented by Dana Farris LPN on behalf of: SHANT España documented in this encounterCameron Regional Medical [id number] History of Present illness Narrative* TAMMY Duran [...] additional questions or concerns. documented in this encounterParma [facility] Hospital01-29-2024 History of Present illness Narrative* TAMMY [...] be completed between 11/10-11/17. documented in this encounterParma Community [facility] Hospital01-22-2024 History of Present illness Narrative* TAMMY Duran - 10/22/2023 11:00 AM ESTSumkamila: M Genetic Counseling Note Provider at different site/location than patient. I confirmed the patient is located in the [facility]. Vy Mckeon is currently at home and provider at remote site. The patient consented to be treated electronically via this form of telemedicine. This visit was not related to an office visit or procedure in the past 7 days, and in-office follow up is not recommended in the next 24 hours. Video Visit via Real-time Synchronous Audiovisual Provider Location: [facility] MATERNAL- MEDICINE AT [address] [phone] Patient Location: Patient's home Patient Location Sieve Maker: None Video Visit Consent Statement: I discussed [...] that there are some limitations compared to xebf-wv-iril evaluations. We elected to proceed. Name: Jossjuvenal Vy : 1990 Date of Visit: 10/22/2023 Email: [email or web address] Preferred contact method: email Partner's Name: Bogdan Age: 32 Requesting Physician: Eliazar Castaneda DO [address], [place] [address] Reason for Referral: Vy Mckeon is a 33 y.o. female who presented to [facility] Telemedicine [facility]. Vy is here [...] Screen: YES - low risk Performing lab: [facility] (UNITY Screen) Conditions screened: Trisomy 13, Trisomy [...] the medical records and evaluation by medical records supervisor of the affected individual would be recommended. [...] age I personally spent 25 minutes in yzoi-ls-aflj time with this patient. I provided genetic [...] call or email their genetic counselor at [phone] or if any additional questions or concerns should arise. Katarina Antonio [facility] Licensed, Certified Genetic Counselor documented in this encounterAvita Health System Galion HospitalCashSentinel [id number] Evaluation note* Encounter Date Diagnosis Assessment Notes Treatment Notes Treatment Clinical Notes May, Thrush (ICD-10 - B37.0) Continue home medications as prescribed. Use the nystatin mouthwash as prescribed, swish and swallow. Follow-up with your family physician if no improvement in 2 to 3 days [employer] Other 06-19-2023 [facility]* Encounter Date Diagnosis Assessment [...] educated on the importance of PPI optimization [employer] Other 05-10-2023 Evaluation note* Encounter Date Diagnosis [...] January, Other Contusion mater ial was printed [employer] Other 08-23-2022 NoteOPERATIVE NOTE OPERATION DATE: 05/23/2022 PROCEDURE: Suction D AND C. PREOPERATIVE DIAGNOSIS: Missed . POSTOPERATIVE DIAGNOSIS: Missed . ANESTHESIA: General. SURGEON: Eliazar Castaneda D.O. PROJECT MANAGEMENT INSTRUCTOR: None. FINDING: Products of conception. SPECIMEN: Products [...] products of conception were removed using an 8-Beninese suction curette. Excellent hemostasis was noted. The patient tolerated the procedure well. Sponge, lap, and needle counts were correct x 2. All instruments were then removed from the patient's vagina. The patient was taken to the Recovery Room in stable condition. ??[facility]Evaluation note Includes: Assessments for all patient encounters Findings Encounter Date Depressive disorder [facility] with Emilee Short [facility] 03/29/2020 Generalized anxiety disorder [facility] with Emilee Short [facility] 03/29/2020 Dysthymic disorder Established Patie nt with Bobbi Colon [facility] 10/14/2019 Generalized anxiety disorder Establis hed Patient with Bobbi Colon [facility] 10/14/2019 Z68.24 - Body mass index (BM I) 24.0-24.9 adult Medical Established Patient with Candace Grossman CNP 10/14/2019 F34.1 - Dysthymic disorder Establishe d Patient with Bobbi Colon [facility] 09/04/2019 Generalized anxiety disorder Establis hed Patient with Bobbi Colon [facility] 09/04/2019 Body mass index Medical Established Patient with Candace Grossman CNP 09/04/2019 Diabetes Risk Test Score was 0 score 09/04/2019 Medical Established Patient with Candace Grossman GOVERNMENT AFFAIRS DIRECTOR 09/04/2019 Body mass index Nurse Visit with Candace Grossman CN P 08/19/2019 Diabetes Risk Test Score was 0 score 08/19/2019 Nurse Visit with Candace Grossman GOVERNMENT AFFAIRS DIRECTOR 08/19/2019 Generalized anxiety disorder BH Establis hed Patient with Bobbi Colon [facility] 07/28/2019 Severe recurrent major depre 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 features BH Established Patient with Bobbi Colon [facility] 07/28/2019 AUDIT alcohol use disorders identification test was six 07/28/2019 Medical New Patient with Candace Grossman GOVERNMENT AFFAIRS DIRECTOR 07/28/2019 Diabetes Risk Test Score was 0 score 07/28/2019 Medical New Patient with Candace Grossman GOVERNMENT AFFAIRS DIRECTOR 07/28/2019 ZAN-7 score was 21 07/28/2019 Medical Ne w Patient with Candace Grossman GOVERNMENT AFFAIRS DIRECTOR 07/28/2019 PHQ-9: total score was 21 07/28/2019 Med ical New Patient with Candace Grossman GOVERNMENT AFFAIRS DIRECTOR 07/28/2019 Z68.22 - Body mass index (BM I) 22.0-22.9 adult Medical New Patient with aCndace Grossman GOVERNMENT AFFAIRS DIRECTOR 07/28/2019 [facility] Work Phone: Evaluation noteNo assessment information available [facility] Work Phone: Evaluation note* Diagnosis Onset Date Resolution Status GERD (gastroesophageal reflux disease) acute [facility] Work Phone: Evaluation note* Diagnosis [...] multigravida, second trimester documented in this encounter [facility]* Diagnosis Placenta previa antepartum in second trimester- Primary Multigravida of advanced maternal age in second trimester documented in this encounter [facility]* Diagnosis Nausea and vomiting, unspecified vomiting type- Primary Psychophysiological insomnia Persistent disorder of initiating or maintaining sleep documented in this encounter [facility]* Diagnosis Malignant melanoma of skin (HCC)- Primary Melanoma of skin, site unspecified documented [facility] this encounter [facility]* Diagnosis Encounter for anatomic survey Encounter for anatomic survey- Primary documented in this encounter [facility] CenterEvaludelaware psychiatric center note* Diagnosis Encounter for anatomic survey documented in this encounter [facility] CenterEvaludelaware [facility] note* Diagnosis Malignant melanoma of skin (HCC) Melanoma of skin, site unspecified Skin cancer Unspecified malignant neoplasm of skin, site unspecified Placenta previa antepartum in second trimester * Assessment & Plan Note - Ana Peoples MD - 01/21/2024 1:34 PM EDT Associated Problem(s): Skin cancer 01/22/2024 [facility] Pt is a 33 year old 29w4d with a new diagnosis of malignant melanoma located above the left upper lip. Oncologist Usman Goldberg MD Surgeon Fransico Sharp MD Pts general OBGYN in [place], [place]: Eliazar Castaneda MD The plan is for wide local excision with reconstruction, which may take multiple trips to the OR. The OR plan involves radioactive tracer for sentinal node She has not been imaged for staging. She comes to [facility] today for discussion on when [...] pt can deliver [facility] if she goesat term and the CT does not show any spread.. We would need to find a way to get the placenta to [facility] for examination. I have left a message with Dr. Castaneda's office to call me back so that we can confirm ability to get placenta to [facility] for pathology should she deliver at [place]. Ana Peoples MD documented in this encounter [facility]* Diagnosis Malignant melanoma of skin (HCC)- Primary Melanoma of skin, site unspecified Malignant melanoma of skin (HCC) Melanoma of skin, site unspecified documented in this encounter [facility] CenterHistory general Narrative - Reported* Type Description Date Medical History anxiety Medical History depression Medical History ADHD Surgical History D&C [employer] Other History general Narrative - Reported* Type Description Date Medical History anxiety Medical History depression Medical History ADHD Surgical History D&C 2021 [employer] Other History of Present illness Narrative History of Present Illness not supported for this document type No History of Present Illness RecordedHealth [facility] Work Phone: Hospital Discharge instructions Additional [...] NOT operate machinery such as power tools, SpineFrontiern mowers, snow blowers, sewing machines, etc. -Avoid [...] if you have any problems. -Office number [phone] Work Phone: Instructions Instructions not supported for this document type No Instructions [facility]edW[facility] Work Phone: InstructionsNot on filedocumented in this encounter [facility] SystemInstructionsNot on filedocumented in this encounter [facility] [employer] SystemInstructionsNot on filedocumented in this encounter [facility] SystemPatient problem outcome Narrative Includes: Evaluations & Outcomes for active Goals No Outcomes RecordedHealth [facility] Work Phone: reason for referral (narrative)No Reason for Referral [facility] Work Phone: reason for referral (narrative)* Diagnostic Procedure Only (Routine) - Closed Specialty Diagnoses / Procedures Referred By Contac t Referred To Contact [facility] Diagnoses Encounter for anatomic survey Procedures OBSTETRIC ULTRASOUND WHI US PREG UTERUS AFTER 1ST [place] [address] [place] [address] [facility] [address] [place] [address] Referral ID Status Reason Start Date Expiration Date V isits Requested Visits Authorized [id number] Closed Auto-Generate d Referral 01/21/2024 01/20/2025 1 1 [facility] CenterReason for visit NarrativeUNCONTROLLED GERD//REFERRAL FROM [employer] Other Reason for visit Narrative* Consultation (Routine) - Pending Review Specialty Diagnoses / Procedures Referred By Contac t Referred To Contact Maternal and Medicine Diagnoses Multigravida of advanced maternal age in second trimester Eliazar Castaneda R, DO [address] [place] [address] [facility] Maternal Med [address] [place] [address] Referral ID Status Reason Start Date Expiration Date Visits Requested Visits Authorized [id number] Pending Review Specialty Services Required 10/10/2023 10/09/2024 1 1 [facility] Narrative* Diagnostic Procedure Only (Routine) - Closed Specialty Diagnoses / Procedures Referred By Contac t Referred To Contact [facility] Diagnoses Encounter for anatomic survey Procedures OBSTETRIC ULTRASOUND WHI US PREG UTERUS AFTER 1ST TRIMEST 1/[place] [address] [place] [address] [facility] [address] [place] [address] Referral ID Status Reason Start Date Expiration Date V isits Requested Visits Authorized [id number] Closed Auto-Generate d Referral 01/21/2024 01/20/2025 1 1 [facility] CenterReview of systems Narrative - Reported Review of Systems not supported for this document type No Review of Systems RecordedHealth [facility] Work Phone: Summary Purpose Family History No Family History Records Found Description Last Updated Paternal history of cardiovascular disor thuy 07/28/2019 Relationship Condition Age at Onset Recorded Date/T pia Not Specified Anxiety Unknown Chronic obstructive pulmonary disease Unk nown Advance Directives No Advanced Directives Records FoundDocuments on File Type Date Recorded Patient Administrator Social Welfare Expl anation Advance Directives and Living Will Power of Bacteriologist Fishery Advance Directive Response Recorded Date/ Time Advance Directives No February 07 3 3:12pm Reason for Referral Specialty Diagnoses / Procedures Referred By Contac t Referred To Contact Maternal and Medicine Diagnoses Placenta previa antepartum in second trimester Multigravida of advanced maternal age in second trimester Procedures [facility] with or without consult Fidencio Rojas MD [address] [facility] 1st [place] [address] [facility] Maternal Med [address] [place] [address] Referral ID Status Reason Start Date Expiration Date V isits Requested Visits Authorized [id number] Pending Review 11/20/2023 11/19/2024 1 1 Specialty Diagnoses / Procedures Referred By Contac t Referred To Contact Diagnoses Malignant melanoma of skin (HCC) Procedures REFER TO PACC - PRE ANESTHESIA CONSULTATION CLINIC OFFICE/OUTPATIENT [facility] 60 MINUTES Fransico Sharp MD [address] [place] [address] Referral ID Status Reason Start Date Expiration Date Visits Requested Visits Authorized [id number] Authorized PCP Requested Referral 01/04/2024 01/03/2025 1 1 Specialty Diagnoses / Procedures Referred By Contac t Referred To Contact Diagnoses Malignant melanoma of skin (HCC) Procedures CONSULT TO MATERNAL MEDI OFFICE/OUTPATIENT [facility] 60 MINUTES Fransico Sharp MD [address] [place] [address] Referral ID Status Reason Start Date Expiration Date Visits Requested Visits Authorized [id number] Authorized PCP Requested Referral Auto-Generate d Referral 01/04/2024 01/03/2025 1 1 Specialty Diagnoses / Procedures Referred By Contac t Referred To Contact [facility] Diagnoses Malignant melanoma of skin (HCC) Procedures CT CHEST W IVCON DIAGNOSTIC COMPUTED TOMOGRAPHY THORAX W/CONTRAST Usman Goldberg MD [address] [address] [place] [address] Referral ID Status Reason Start Date Expiration Date Visits Requested Visits Authorized [id number] Authorized Auto-Generat ed Referral 02/20/2024 02/21/2025 1 1 Specialty Diagnoses / Procedures Referred By Contac t Referred To Contact CT IMAGING Diagnoses Malignant melanoma of skin (HCC) Procedures CT NECK SOFT TISSUE W IVCON CT SOFT TISSUE NECK W/CONTRAST MATERIAL Usman Goldberg MD [address] [place] [address] [place] [address] Referral ID Status Reason Start Date Expiration Date Visits Requested Visits Authorized [id number] Authorized Auto-Generat ed Referral 02/20/2024 02/21/2025 1 1 Assessments Findings Encounter Date Generalized anxiety disorder Establis hed Patient with Bobbi Colon [facility] 07/28/2019 Severe recurrent major depre 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 features BH Established Patient with Bobbi Colon [facility] 07/28/2019 AUDIT alcohol use disorders identification test was six 07/28/2019 Medical New Patient with Candace Grossman [facility] 07/28/2019 Diabetes Risk Test Score was 0 score 07/28/2019 Medical New Patient with Candace Grossman [facility] 07/28/2019 ZAN-7 score was 21 07/28/2019 Medical Ne w Patient with Candace Grossman [facility] 07/28/2019 PHQ-9: total score was 21 07/28/2019 Med ical New Patient with Candace Grossman GOVERNMENT AFFAIRS DIRECTOR 07/28/2019 Z68.22 - Body mass index (BM I) 22.0-22.9 adult Medical New Patient with Candace Grossman GOVERNMENT AFFAIRS DIRECTOR 07/28/2019 Findings Encounter Date F34.1 - Dysthymic disorder BH Establishe d Patient with Bobbi Colon [facility] 09/04/2019 Generalized anxiety disorder BH Establis hed Patient with Bobbileif Colon [facility] 09/04/2019 Body mass index Medical Established Patient with Candace Grossman [facility] 09/04/2019 Diabetes Risk Test Score was 0 score 09/04/2019 Medical Established Patient with Candacehalley Grossman GOVERNMENT AFFAIRS DIRECTOR 09/04/2019 Body mass index Nurse Visit with Candace Dianelys P 08/19/2019 Diabetes Risk Test Score was 0 score 08/19/2019 Nurse Visit with Candace Dianelys [facility] 08/19/2019 Generalized anxiety disorder BH Establis hed Patient with Bobbileif Colon [facility] 07/28/2019 Severe recurrent major depre 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 features Established Patient with Bobbi Colon [facility] 07/28/2019 AUDIT alcohol use disorders identification test was six 07/28/2019 Medical New Patient with Candace Grossman [facility] 07/28/2019 Diabetes Risk Test Score was 0 score 07/28/2019 Medical New Patient with Candace Grossman [facility] 07/28/2019 ZAN-7 score was 21 07/28/2019 Medical Ne w Patient with Candace Grossman [facility] 07/28/2019 PHQ-9: total score was 21 07/28/2019 Med ical New Patient with Candace Grossman [facility] 07/28/2019 Z68.22 - Body mass index (BM I) 22.0-22.9 adult Medical New Patient with Candace Grossman [facility] 07/28/2019 Findings Encounter Date Dysthymic disorder BH Established Patie nt with Bobbi Colon [facility] 10/14/2019 Generalized anxiety disorder BH Establis hed Patient with Bobbileif Colon [facility] 10/14/2019 Z68.24 - Body mass index (BM I) 24.0-24.9 adult Medical Established Patient with Candace Grossman [employer] A[employer]AIRS DIRECT[employer] 10/14/2019 F34.1 - Dysthymic disorder BH Establishe d Patient with Bobbi Colon [facility] 09/04/2019 Generalized anxiety disorder BH Establis hed Patient with Bobbileif Colon [facility] 09/04/2019 Body mass index Medical Established Patient with Candacehalley Grossman GOVERNMENT AFFAIRS DIRECTOR 09/04/2019 Diabetes Risk Test Score was 0 score 09/04/2019 Medical Established Patient with Candace Grossman [facility] 09/04/2019 Body mass index Nurse Visit with Candace Grossman P 08/19/2019 Diabetes Risk Test Score was 0 score 08/19/2019 Nurse Visit with Candace Dianelys GOVERNMENT AFFAIRS DIRECTOR 08/19/2019 Generalized anxiety disorder BH Establis hed Patient with Bobbi Colon [facility] 07/28/2019 Severe recurrent major depre 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 features BH Established Patient with Bobbi Colon [facility] 07/28/2019 AUDIT alcohol use disorders identification test was six 07/28/2019 Medical New Patient with Candace Grossman [facility] 07/28/2019 Diabetes Risk Test Score was 0 score 07/28/2019 Medical New Patient with Candace Grossman [facility] 07/28/2019 ZAN-7 score was 21 07/28/2019 Medical Ne w Patient with Candace Grossman [facility] 07/28/2019 PHQ-9: total score was 21 07/28/2019 Med ical New Patient with Candace Grossman [facility] 07/28/2019 Z68.22 - Body mass index (BM I) 22.0-22.9 adult Medical New Patient with Candace Grossman [facility] 07/28/2019 Findings Encounter Date Visit for: contraceptive management Women's Heal th with Linnea Samaniegole [facility] 04/08/2020 Z68.24 - Body mass index (BM I) 24.0-24.9, adult Women's Health with Linnea Luz GOVERNMENT AFFAIRS DIRECTOR 04/08/2020 Depressive disorder Telebehavioral He alth with Emilee Short [facility] 03/29/2020 Generalized anxiety disorder [facility] [place] [facility] Emilee Short [facility] 03/29/2020 Dysthymic disorder Established Patie nt with Bobbi Colon [facility] 10/14/2019 Generalized anxiety disorder BH Establis hed Patient with Bobbi Cloon [facility] 10/14/2019 Z68.24 - Body mass index (BM I) 24.0-24.9 adult Medical Established Patient with Candace Dianelys [facility] 10/14/2019 F34.1 - Dysthymic disorder BH Establishe d Patient with Bobbi Colon [facility] 09/04/2019 Generalized anxiety disorder BH Establis hed Patient with Bobbi Colon [facility] 09/04/2019 Body mass index Medical Established Patient with Candace Dianelys [facility] 09/04/2019 Diabetes Risk Test Score was 0 score 09/04/2019 Medical Established Patient with Candace Grossman [facility] 09/04/2019 Body mass index Nurse Visit with Candace ECHEVARRIA P 08/19/2019 Diabetes Risk Test Score was 0 score 08/19/2019 Nurse Visit with Candace Grossman [facility] 08/19/2019 Generalized anxiety disorder BH Establis hed Patient with Bobbi Colon [facility] 07/28/2019 Severe recurrent major depre 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 features BH Established Patient with Bobbi Colon [facility] 07/28/2019 AUDIT alcohol use disorders identification test was six 07/28/2019 Medical New Patient with Candace Grossman [facility] 07/28/2019 Diabetes Risk Test Score was 0 score 07/28/2019 Medical New Patient with Candace Grossman [facility] 07/28/2019 ZAN-7 score was 21 07/28/2019 Medical Ne w Patient with Candace Grossman [facility] 07/28/2019 PHQ-9: total score was 21 07/28/2019 Med ical New Patient with Candace Grossman [facility] 07/28/2019 Z68.22 - Body mass index (BM I) 22.0-22.9 adult Medical New Patient with Candace Dianelys [facility] 07/28/2019 Findings Encounter Date Body mass index Nurse Visit with Candace Grossman P 08/19/2019 Diabetes Risk Test Score was 0 score 08/19/2019 Nurse Visit with Candace Grossman [facility] 08/19/2019 Generalized anxiety disorder BH Establis hed Patient with Bobbi Colon [facility] 07/28/2019 Severe recurrent major depre 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 features BH Established Patient with Bobbileif Colon [facility] 07/28/2019 AUDIT alcohol use disorders identification test was six 07/28/2019 Medical New Patient with Candace Grossman [facility] 07/28/2019 Diabetes Risk Test Score was 0 score 07/28/2019 Medical New Patient with Candace Grossman [facility] 07/28/2019 ZAN-7 score was 21 07/28/2019 Medical Ne w Patient with Candace Grossman [facility] 07/28/2019 PHQ-9: total score was 21 07/28/2019 Med ical New Patient with Candacehalley Grossman [facility] 07/28/2019 Z68.22 - Body mass index (BM I) 22.0-22.9 adult Medical New Patient with Candace Grossman [facility] 07/28/2019 Findings Encounter Date Overweight Women's Health with Candace Grossman [facility] 05/03/2020 Z68.24 - Body mass index (BM I) 24.0-24.9, adult Women's Health with Candace Dianelys GOVERNMENT AFFAIRS DIRECTOR 05/03/2020 Visit for: contraceptive management Women's Heal th with Linnea Escobar GOVERNMENT AFFAIRS DIRECTOR 04/08/2020 Z68.24 - Body mass index (BM I) 24.0-24.9, adult Women's Health with Linnea Escobar GOVERNMENT AFFAIRS DIRECTOR 04/08/2020 Depressive disorder Telebehavioral He alth with Emilee Short [facility] 03/29/2020 Generalized anxiety disorder Telebeha vioral Health with Emilee Short [facility] 03/29/2020 Dysthymic disorder Established Patie nt with Bobbi Colon [facility] 10/14/2019 Generalized anxiety disorder Establis hed Patient with Bobbi Colon [facility] 10/14/2019 Z68.24 - Body mass index (BM I) 24.0-24.9 adult Medical Established Patient with Candace Grossman [facility] 10/14/2019 F34.1 - Dysthymic disorder Establishe d Patient with Bobbi Colon [facility] 09/04/2019 Generalized anxiety disorder Establis hed Patient with Bobbi Colon [facility] 09/04/2019 Body mass index Medical Established Patient with Candacehalley Grossman [facility] 09/04/2019 Diabetes Risk Test Score was 0 score 09/04/2019 Medical Established Patient with Candacehalley Grossman [facility] 09/04/2019 Body mass index Nurse Visit with Candace Grossman P 08/19/2019 Diabetes Risk Test Score was 0 score 08/19/2019 Nurse Visit with Candace Grossman [facility] 08/19/2019 Generalized anxiety disorder Establis hed Patient with Bobbi Colon [facility] 07/28/2019 Severe recurrent major depre 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 features Established Patient with Bobbi Colon [facility] 07/28/2019 AUDIT alcohol use disorders identification test was six 07/28/2019 Medical New Patient with Candace Grossman [facility] 07/28/2019 Diabetes Risk Test Score was 0 score 07/28/2019 Medical New Patient with Candacehalley Grossman [facility] 07/28/2019 ZAN-7 score was 21 07/28/2019 Medical Ne w Patient with Candacehalley Grossman [facility] 07/28/2019 PHQ-9: total score was 21 07/28/2019 Med ical New Patient with Candaec Grossman [facility] 07/28/2019 Z68.22 - Body mass [...] section and content) DATE CREATED AUTHOR 03/26/2018 [facility] DATE CREATED AUTHOR AUTHOR'S ORGANIZ ATION 05/07/2020 [facility] DATE CREATED AUTHOR AUTHOR'S ORGANIZ ATION 02/10/2023 [facility] DATE CREATED AUTHOR AUTHOR'S ORGANIZ ATION 03/28/2023 [facility] DATE CREATED AUTHOR AUTHOR'S ORGANIZ ATION 12/18/2023 [facility] DATE CREATED AUTHOR AUTHOR'S ORGANIZ ATION 01/14/2024 [facility] DATE CREATED AUTHOR AUTHOR'S ORGANIZ ATION 01/27/2024 [facility] DATE CREATED AUTHOR AUTHOR'S ORGANIZ ATION 02/14/2024 [facility] DATE CREATED AUTHOR AUTHOR'S ORGANIZ ATION 03/17/2024 [facility] DATE CREATED AUTHOR AUTHOR'S ORGANIZ ATION 03/19/2024 [facility] Evaluations & Outcomes (unre cognized section [...] (HCC) Procedures CONSULT TO MATERNAL MEDI OFFICE/OUTPATIENT [facility] 60 MINUTES Fransico Sharp MD [address] [place] [address] Referral ID Status Reason Start Date Expiration Date V isits Requested Visits Authorized [id number] Closed PCP Requested Referral Auto-Generated Referral 01/04/2024 [...] Active NON STAFF Primary Care Provider Active Multifocal Button Generator Relationship Specialty Start Date End Date Freddie Delgado APRN-CNP PCP - General Nurse Practitioner 07/30/23 Multifocal Button Generator Relationship Specialty Start Date End Date Freddie Delgado APRN-CNP PCP - General Nurse Practitioner 07/30/23 Multifocal Button Generator Relationship Specialty Start Date End Date Freddie Delgado APRN-CNP PCP - General Nurse Practitioner 07/30/23 Multifocal Button Generator Relationship Specialty Start Date End Date Freddie Delgado APRN-CNP PCP - General Nurse Practitioner 07/30/23 Multifocal Button Generator Relationship Specialty Start Date End Date [facility] P[facility] - General Nurse Practitioner 07/30/23 Multifocal Button Generator Relationship Specialty Start Date End Date Freddie Delgado [facility] PCP - General Nurse Practitioner 07/30/23 Multifocal Button Generator Relationship Specialty Start Date End Date Freddie Delgado [facility] PCP - General Nurse Practitioner 07/30/23 Multifocal Button Generator Relationship Specialty Start Date End Date Delgado Freddie [address] [place] [address] PCP - General Family Medicine 12/19/23 Multifocal Button Generator Relationship Specialty Start Date End Date Freddie Delgado [address] [place] [address] PCP - General Family Medicine 12/19/23 Multifocal Button Generator Relationship Specialty Start Date End Date Freddie Delgado [address] [place] [address] PCP - General Family Medicine 12/19/23 Multifocal Button Generator Relationship Specialty Start Date End Date DelgadoKelli tiwarindra [address] [place] [address] PCP - General Family Medicine 12/19/23 Multifocal Button Generator Relationship Specialty Start Date End Date DelgadoFreddie rea [address] [place] [address] PCP - General Family Medicine 12/19/23 Multifocal Button Generator Relationship Specialty Start Date End Date Freddie Delgado [address] [place] [address] PCP - General Family Medicine 12/19/23 Multifocal Button Generator Relationship Specialty Start Date End Date Freddie Delgado [address] [place] [address] PCP - General Family Medicine 12/19/23 Multifocal Button Generator Relationship Specialty Start Date End Date Freddie Delgado [address] [place] [address] PCP - General Family Medicine 12/19/23 Multifocal Button Generator Relationship Specialty Start Date End Date Freddie Delgado [address] [place] [address] PCP - General Family Medicine 12/19/23 Multifocal Button Generator Relationship Specialty Start Date End Date Freddie Delgaod [address] [place] [address] PCP - General Family Medicine 12/19/23 Multifocal Button Generator Relationship Specialty Start Date End Date Freddie Delgado [address] [place] [address] PCP - General Family Medicine 12/19/23 Multifocal Button Generator Relationship Specialty Start Date End Date Freddie Delgado [address] [place] [address] PCP - General Family Medicine 12/19/23 Multifocal Button Generator Relationship Specialty Start Date End Date Freddie Delgado CNP [address] [place] [address] PCP - General Family Medicine 12/19/23 Multifocal Button Generator Relationship Specialty Start Date End Date Freddie Delgado CNP [address] [place] [address] PCP - General Family Medicine 12/19/23 Multifocal Button Generator Relationship Specialty Start Date End Date Freddie Delgado CNP [address] [place] [address] PCP - General Family Medicine 12/19/23 Multifocal Button Generator Relationship Specialty Start Date End Date Freddie Delgado CNP [address] [place] [address] PCP - General Family Medicine 12/19/23 Goals [...] any alcohol or drug abuse patient.[facility] CenterIn the event this information is protected by the Federal Confidentiality of Alcohol and Drug Abuse Patient Records regulations: The Federal rules restrict any use of the information to criminally investigate or prosecute any alcohol or drug abuse patient.[facility] CenterIn the event this information is protected by the Federal Confidentiality of Alcohol and Drug Abuse Patient Records regulations: The Federal rules restrict any use of the information to criminally investigate or prosecute any alcohol or drug abuse patient.[facility] CenterIn the event this information is protected by the Federal Confidentiality of Alcohol and Drug Abuse Patient Records regulations: The Federal rules restrict any use of the information to criminally investigate or prosecute any alcohol or drug abuse patient.[facility] CenterIn the event this information is protected by the Federal Confidentiality of Alcohol and Drug Abuse Patient Records regulations: The Federal rules restrict any use of the information to criminally investigate or prosecute any alcohol or drug abuse patient.[facility] CenterIn the event this information is protected by the Federal Confidentiality of Alcohol and Drug Abuse Patient Records regulations: The Federal rules restrict any use of the information to criminally investigate or prosecute any alcohol or drug abuse patient.[facility] CenterIn the event this information is protected by the Federal Confidentiality of Alcohol and Drug Abuse Patient Records regulations: The Federal rules restrict any use of the information to criminally investigate or prosecute any alcohol or drug abuse patient.[facility] CenterIn the event this information is protected by the Federal Confidentiality of Alcohol and Drug Abuse Patient Records regulations: The Federal rules restrict any use of the information to criminally investigate or prosecute any alcohol or drug abuse patient.[facility] CenterIn the event this information is protected by the Federal Confidentiality of Alcohol and Drug Abuse Patient Records regulations: The Federal rules restrict any use of the information to criminally investigate or prosecute any alcohol or drug abuse patient.[facility] CenterIn the event this information is protected by the Federal Confidentiality of Alcohol and Drug Abuse Patient Records regulations: The Federal rules restrict any use of the information to criminally investigate or prosecute any alcohol or drug abuse patient.[facility] CenterIn the event this information is protected by the Federal Confidentiality of Alcohol and Drug Abuse Patient Records regulations: The Federal rules restrict any use of the information to criminally investigate or prosecute any alcohol or drug abuse patient.[facility] CenterIn the event this information is protected by the Federal Confidentiality of Alcohol and Drug Abuse Patient Records regulations: The Federal rules restrict any use of the information to criminally investigate or prosecute any alcohol or drug abuse patient.[facility] CenterIn the event this information is protected by the Federal Confidentiality of Alcohol and Drug Abuse Patient Records regulations: The Federal rules restrict any use of the information to criminally investigate or prosecute any alcohol or drug abuse patient.[facility] CenterIn the event this information is protected by the Federal Confidentiality of Alcohol and Drug Abuse Patient Records regulations: The Federal rules restrict any use of the information to criminally investigate or prosecute any alcohol or drug abuse patient.[facility] CenterIn the event this information is protected by the Federal Confidentiality of Alcohol and Drug Abuse Patient Records regulations: The Federal rules restrict any use of the information to criminally investigate or prosecute any alcohol or drug abuse patient.[facility] CenterIn the event this information is protected by the Federal Confidentiality of Alcohol and Drug Abuse Patient Records regulations: The Federal rules restrict any use of the information to criminally investigate or prosecute any alcohol or drug abuse patient.[facility] CenterIn the event this information is protected by the Federal Confidentiality of Alcohol and Drug Abuse Patient Records regulations: The Federal rules restrict any use of the information to criminally investigate or prosecute any alcohol or drug abuse patient.[facility] CenterIn the event this information is protected by the Federal Confidentiality of Alcohol and Drug Abuse Patient Records regulations: The Federal rules restrict any use of the information to criminally investigate or prosecute any alcohol or drug abuse patient.[facility] FOR RECORDS PERTAINING TO PATIENTS [...] BE BASED ON THE PRIMARY CLINICAL RECORDS. [facility] [employer] [facility]. provides no warranty or guarantee of the accuracy or completeness of information in this document.
[2024-03-25] VITALS (58 sets, daily range): BP systolic 94–146; BP diastolic 48–92; PULSE 63–114; TEMP 36–37.1; O2SAT 88–100
[2024-03-25 00:02] LABS: Hematocrit 31.5 % (36.0-48.0); Hemoglobin 10.5 g/dL (12.0-16.0); Mean Corpuscular HGB Conc 33.3 g/dL (29.9-35.2); Mean Corpuscular Hemoglobin 29.5 pg (26.7-34.0); Mean Corpuscular Volume 88.5 fL (81.0-99.0); Mean Platelet Volume 10.7 fL (9.5-13.5); Platelet Count 202 10^3/uL (150-450); Red Blood Count 3.56 10^6/uL (4.20-5.40); Red Cell Distribution Width 13.9 % (11.0-15.0); White Blood Count 10.2 10^3/uL (4.0-11.0)
[2024-03-25] MEDS: 0.9 % SODIUM CHLORIDE 1,000 ML 125 ML IV ×3 (00:11→20:41)
[2024-03-25 00:24] LABS: Amphetamine Screen Urine NEGATIVE (NEGATIVE); Barbiturates Screen Urine NEGATIVE (NEGATIVE); Benzodiazepines Screen Urine NEGATIVE (NEGATIVE); Buprenorphine Screen Urine NEGATIVE (NEGATIVE); Cannabinoid Screen Urine NEGATIVE (NEGATIVE); Cocaine Screen Urine NEGATIVE (NEGATIVE); Methadone Screen Urine NEGATIVE (NEGATIVE); Methamphetamines Screen Urine NEGATIVE (NEGATIVE); Opiate Screen Urine NEGATIVE (NEGATIVE); Oxycodone Screen Urine NEGATIVE (NEGATIVE); Phencyclidine Screen Urine NEGATIVE (NEGATIVE); Tricyclic Antidepressant Urine NEGATIVE (NEGATIVE)
[2024-03-25] MEDS: OXYTOCIN/0.9 % SODIUM CHLORIDE 10 UNITS/500 ML PLAST..BAG 6 UNIT IV (00:40)
[2024-03-25] MEDS: 0.9 % SODIUM CHLORIDE 1,000 ML 1000 ML IV (09:11)
[2024-03-25] MEDS: NALBUPHINE HCL 10 MG/ML AMPULE IV (10:24)
[2024-03-25] MEDS: OXYTOCIN/0.9 % SODIUM CHLORIDE 10 UNITS/500 ML PLAST..BAG 60 UNIT IV (14:03)
[2024-03-25] MEDS: CALCIUM CARBONATE 500 MG (200MG ELEMENTAL) TAB CHEW PO (15:53)
[2024-03-25] MEDS: ROPIVACAINE HCL/PF 400 MG/200 ML PREMIX 6 MG EPIDURAL (19:53)
[2024-03-25] MEDS: LACTATED RINGER'S SOLUTION 1,000 ML 50 ML IV (23:03)
--- NOTE | 2024-03-25 23:11 | P.OBPRC_ITS ---
Procedure Pre-op/Post-op diagnoses: Pre-Op/Post-Op Diagnoses Operation Date: 03/25/24 22:30 <No data on this case meets the specified criteria> Procedure: Procedures Operation Date: 03/25/24 22:30 Actual Procedure Side Surgeon p Not Applicable Eliazar Castaneda DO Overnight Associate: Linnea Love Estimated blood loss (mL): 700 Disposition: PACU Anesthesia type: Epidural
--- NOTE | 2024-03-25 23:11 | PM.ONB ---
Brief Operative Note Date of procedure: 03/25/24 Pre-op diagnosis general: iup at 38 5/7wks, delivery recommended dt melanoma during per [facility] for treatment, failure to dilate Post-op diagnosis: same as pre-op Procedure: NAME OF PROCEDURE: [ section ] PROCEDURE: Patient was taken back to the Operating Room where she was given a spinal anesthesia with Duramorph without difficulty. She was prepped and draped in the normal sterile fashion. A Pfannenstiel skin incision was then made 2 cm above the symphysis pubis and carried down to underlying rectus fascia using a Bovie. The fascia was incised in the midline and extended laterally using Lucas scissors. Two Grady clamps were placed on the superior aspect of the fascia and dissected off the underlying rectus muscles. The same was performed on the inferior aspect as well. The muscles were then in the midline. Peritoneum was identified and entered bluntly. The peritoneum was then extended superiorly and inferiorly with good visualization of the bladder. The bladder blade was inserted. A low transverse incision was made on the patient's uterus and extended laterally digitally. The infant was then delivered atraumatically after the bladder blade was removed in the cephalic position. The cord was clamped and cut. Cord blood was obtained. The infant was handed off to awaiting team. The patient's placenta was spontaneously delivered. The uterus was then exteriorized. The uterus was cleared of all clots and debris. The bladder blade was reinserted. The patient's uterine incision was closed using #0 Vicryl in a running lock fashion. Excellent hemostasis was assured. The uterus was then returned to the patient's abdomen. The patient's abdomen was copiously irrigated using warm saline. Peritoneal gutters were cleared of all clots and debris. Again excellent hemostasis was assured. The patient's peritoneum was closed using 3-0 Vicryl in a running fashion. The patient's fascia was closed using #0 Vicryl in a running fashion. The patient's skin was closed using 4-0 Vicryl subcuticularly. The patient tolerated the procedure well. Sponge, lap, and needle counts were correct x2. The patient was taken to the Recovery Room in stable condition. Anesthesia: epidural Surgeon: Eliazar Castaneda Quality Control Lead: Linnea Love Estimated blood loss (mL): 700 Pathology: other (placenta) Condition: stable Disposition: PACU Urinary Catheter Management Urinary Catheter Management Urethral: Cath placed during this visit: no
[2024-03-26] VITALS (37 sets, daily range): BP systolic 92–127; BP diastolic 58–80; PULSE 58–105; TEMP 35.9–36.8; O2SAT 91–99
[2024-03-26] MEDS: OXYTOCIN/0.9 % SODIUM CHLORIDE 20 UNITS/1,000 ML PLAST..BAG 125 UNIT IV (01:00)
[2024-03-26] MEDS: KETOROLAC TROMETHAMINE 30 MG/ML VIAL IVP ×4 (01:20→20:21)
[2024-03-26] MEDS: CLINDAMYCIN PHOSPHATE/D5W 900 MG/50 ML PIGGYBACK 100 MG IV (04:14)
[2024-03-26] MEDS: OXYCODONE HCL/ACETAMINOPHEN 5MG/325MG 1 TAB PO (06:29)
[2024-03-26 07:06] LABS: Basophils Percent Auto 0.3 % (0.2-2.0); Eosinophils Absolute Auto 0.1 10^3/uL (0.0-0.7); Eosinophils Percent Auto 0.4 % (0.9-7.0); Hematocrit 29.1 % (36.0-48.0); Hemoglobin 9.4 g/dL (12.0-16.0); Immature Granulocytes Abs Auto 0.08 10^3/uL (0.00-0.03); Immature Granulocytes Pct Auto 0.6 % (0.0-0.5); Lymphocytes Absolute Auto 1.1 10^3/uL (1.2-3.8); Mean Corpuscular HGB Conc 32.3 g/dL (29.9-35.2); Mean Corpuscular Hemoglobin 28.8 pg (26.7-34.0); Mean Corpuscular Volume 89.3 fL (81.0-99.0); Mean Platelet Volume 10.5 fL (9.5-13.5); Monocytes Absolute Auto 0.8 10^3/uL (0.3-0.8); Monocytes Percent Auto 6.1 % (1.7-12.0); Neutrophils Absolute Auto 11.3 10^3/uL (1.4-6.5); Neutrophils Percent Auto 84.6 % (43.0-75.0); Platelet Count 163 10^3/uL (150-450); Red Blood Count 3.26 10^6/uL (4.20-5.40); White Blood Count 13.4 10^3/uL (4.0-11.0)
--- NOTE | 2024-03-26 07:53 | PM.OBPN ---
OB - PN: Subj Subjective Patient comments: no complaints and pain well controlled [place] status: doing well Exam Constitutional Vital Signs, click to edit/add: Last Vital Signs Temp 98.2 F 03/26/24 02:30 Pulse 66 03/26/24 02:30 Resp 17 03/26/24 02:30 BP 113/58 03/26/24 02:15 Pulse Ox 93 L 03/26/24 02:20 O2 Del Method Room Air 03/25/24 23:57 Documenting provider has reviewed patient's vital signs: yes Common normals: no apparent distress Respiratory Common normals: normal respiratory effort and clear to auscultation bilaterally Cardio Common normals: regular rate and regular rhythm GI Common normals: Normal to inspection, nondistended, normoactive bowel sounds present Extremity Common normals: no clubbing, cyanosis or edema and no calf tenderness Results Labs Labs: Short CBC 03/26/24 Range/Units 06:53 WBC 13.4 H (4.0-11.0) 10^3/uL Hgb 9.4 L (12.0-16.0) g/dL Hct 29.1 L (36.0-48.0) % Plt Count 163 (150-450) 10^3/uL Urinary Catheter Management Urinary Catheter Management Urethral: Cath placed during this visit: no OB - PN: A/P Plan - day: 1 Plan: routine postop care Time Spent with Patient Time: Total time spent is greater than 50% in coordination of care (as documented) at patient's floor/unit and/or counseling patient: Total time spent with greater than 50% in coordination of care (as documented) at patient's floor/unit and/or counseling patient: less than 15 minutes
[2024-03-26] MEDS: DOCUSATE SODIUM 100 MG CAPSULE PO (08:25)
[2024-03-26] MEDS: ENOXAPARIN SODIUM 40 MG/0.4 ML SYRINGE SUBQ (14:23)
--- NOTE | 2024-03-26 18:51 | PC.NURSE ---
Red blisters noted on right breast.
--- NOTE | 2024-03-26 19:30 | W.PC.ACHO ---
Registration Status: ADM IN Primary Language: Iranian Preferred Language: Iranian Report given to Mathew TAN at 1900. Active Medications Generic Name Dose Route Start Last Admin Trade Name Freq PRN Reason Stop Dose Admin Acetaminophen 1,000 mg 03/26/24 05:27 Acetaminophen 500 Mg Tablet PO Q6H PRN Pain Al Hydroxide/Mg Hydroxide 2,400 mg 03/25/24 23:13 Magnesium Hydroxide 2,400 Mg/10 Ml Oral.Susp PO Q6H PRN Dyspepsia Calcium Carbonate 500 mg 03/25/24 15:24 03/25/24 15:53 Calcium Carbonate 500 Mg (200mg Elemental) Tab Chew PO 500 mg TID PRN Administration GERD Diphenhydramine HCl 25 mg 03/25/24 23:13 Diphenhydramine Hcl 50 Mg/Ml Vial IV 03/26/24 23:14 Q6H PRN Itching Diphtheria/Pertussis/Tetanus Vacc 0.5 ml 03/27/24 09:00 Adacel Diph,Pertuss(Acell),Tet Vac/Pf 0.5 Ml Adult Syringe IM 03/27/24 09:01 .ONCE ONE Docusate Sodium 100 mg 03/26/24 09:00 03/26/24 08:25 Docusate Sodium 100 Mg Capsule PO 100 mg BID CHELO Administration Enoxaparin Sodium 40 mg 03/26/24 10:00 03/26/24 14:23 Enoxaparin Sodium 40 Mg/0.4 Ml Syringe SUBQ 40 mg Q24H CHELO Administration Fentanyl Citrate 100 mcg 03/24/24 23:22 Fentanyl Citrate/Pf 100 Mcg/2 Ml Vial EPIDURAL ONCE PRN epidural Fentanyl Citrate 100 mcg 03/24/24 23:22 Fentanyl Citrate/Pf 100 Mcg/2 Ml Vial EPIDURAL ONCE PRN epidural Sodium Chloride 1,000 mls @ 125 mls/hr 03/24/24 23:30 03/25/24 20:41 Sodium Chloride 0.9% 1,000 Ml IV 125 mls/hr .Q8H CHELO Administration Oxytocin/Sodium Chloride 10 units in 500 mls @ 6 mls/hr 03/24/24 23:30 03/25/24 14:03 Pitocin 10 Unit/500 Ml-Ns IV 20 milliunit/min TITR CHELO 60 mls/hr Administration Protocol 2 MILLIUNIT/MIN Ropivacaine/Sodium Chloride 400 mg in 200 mls @ 6 mls/hr 03/24/24 23:30 03/25/24 19:53 Naropin 0.2% 400 Mg/200 Ml Bag EPIDURAL 6 mls/hr Q24H CHELO Administration Lactated Ringer's 1,000 mls @ 50 mls/hr 03/25/24 23:30 03/25/24 23:03 Lactated Ringers IV 50 mls/hr .Q20H CHELO Administration Promethazine HCl 25 mg/ Sodium 51 mls @ 204 mls/hr 03/25/24 23:13 Chloride IV Q6H PRN Nausea And Vomiting Lactated Ringer's 1,000 mls @ 125 mls/hr 03/25/24 23:30 Lactated Ringers IV .Q8H CHELO Ibuprofen 800 mg 03/25/24 23:13 Ibuprofen 400 Mg Tablet PO Q8H PRN Pain Ketorolac Tromethamine 30 mg 03/25/24 23:13 03/26/24 14:22 Ketorolac Tromethamine 30 Mg/Ml Vial IVP 03/27/24 23:14 30 mg Q6H PRN Administration Pain Lidocaine 5 ml 03/24/24 23:19 Lidocaine Viscous 2% 15 Ml Solution TOPICAL ONCE PRN Pain Lidocaine 1 ml 03/24/24 23:19 Lidocaine Hcl 1% 200 Mg/20 Ml Mdv INJ ONCE PRN Pain Measles/Mumps/Rubella Vaccine Live 0.5 ml 03/27/24 09:00 Measles,Mumps,Rubella Vacc/Pf 0.5 Ml Vial SQ 03/27/24 09:01 .ONCE ONE Methylergonovine Maleate 0.2 mg 03/24/24 23:19 Methylergonovine Maleate 0.2 Mg/Ml Ampule IM 03/26/24 23:19 ONCE PRN Uterine Contractility/Contract Methylergonovine Maleate 0.2 mg 03/24/24 23:19 Methylergonovine Maleate 0.2 Mg Tablet PO 03/26/24 23:19 Q4H PRN Uterine Contractility/Contract Misoprostol 600 mcg 03/24/24 23:19 Misoprostol 100 Mcg Tablet PO 03/26/24 23:19 ONCE PRN Uterine Bleeding Misoprostol 800 mcg 03/24/24 23:19 Misoprostol 100 Mcg Tablet SL 03/26/24 23:19 ONCE PRN Uterine Bleeding Misoprostol 1,000 mcg 03/24/24 23:19 Misoprostol 100 Mcg Tablet MI 03/26/24 23:19 ONCE PRN Uterine Bleeding Nalbuphine HCl 10 mg 03/24/24 23:19 03/25/24 10:24 Nalbuphine Hcl 10 Mg/Ml Ampule IV 10 mg Q3H PRN Administration Pain Ondansetron HCl 4 mg 03/24/24 23:19 Ondansetron Pf 4 Mg/2 Ml Vial IV Q6H PRN Nausea And Vomiting Ondansetron HCl 4 mg 03/24/24 23:19 Ondansetron 4 Mg Rapdis Tablet SL Q6H PRN Nausea And Vomiting Oxycodone/Acetaminophen 1 tab 03/25/24 23:13 03/26/24 06:29 Oxycodone Hcl/Acetaminophen 5mg/325mg PO 1 tab Q4H PRN Administration Pain Scale 4-6 Oxycodone/Acetaminophen 2 tab 03/25/24 23:13 Oxycodone Hcl/Acetaminophen 5mg/325mg PO Q4H PRN Pain Scale 7-10 Oxytocin 10 unit 03/24/24 23:19 Oxytocin 10 Unit/Ml Vial IM 03/26/24 23:19 ONCE PRN Bleeding Senna 17.2 mg 03/25/24 20:00 Sennosides 8.6 Mg Tablet PO QHS PRN Constipation Simethicone 80 mg 03/25/24 23:13 Simethicone 80 Mg Tab.Chew PO QID PRN Abdominal Distention Diet Category Date Time Status Regular Consistency Diet Diet 03/25/24 23:13 Active Respiratory Pulse Oximetry 93 Pulse Oximetry 95 Pulse Oximetry 94 Pulse Oximetry 94 Pulse Oximetry 95 Pulse Oximetry 94 Pulse Oximetry 91 Pulse Oximetry 95 Pulse Oximetry 95 Pulse Oximetry 91 Pulse Oximetry 96 Pulse Oximetry 96 Pulse Oximetry 96 Pulse Oximetry 95 Pulse Oximetry 96 Pulse Oximetry 96 Pulse Oximetry 95 Pulse Oximetry 96 Pulse Oximetry 98 Pulse Oximetry 97 Pulse Oximetry 97 Pulse Oximetry 98 Pulse Oximetry 99 Pulse Oximetry 98 Pulse Oximetry 98 Pulse Oximetry 99 Pulse Oximetry 99 Pulse Oximetry 99 Pulse Oximetry 99 Pulse Oximetry 100 Pulse Oximetry 100 Pulse Oximetry 99 Pulse Oximetry 99 Pulse Oximetry 88 Pulse Oximetry 96 Pulse Oximetry 96 Oxygen Delivery Method Room Air Oxygen Delivery Method Room Air Oxygen Delivery Method Room Air Oxygen Delivery Method Room Air Oxygen Delivery Method Room Air
[2024-03-26] MEDS: ACETAMINOPHEN 500 MG TABLET 1000 MG PO (22:54)
[2024-03-27 01:15] VITALS: BP 125/60; PULSE 74; TEMP 36.8
[2024-03-27] MEDS: KETOROLAC TROMETHAMINE 30 MG/ML VIAL IVP (04:01)
[2024-03-27 09:11] VITALS: BP 124/64; PULSE 88; TEMP 36.2
[2024-03-27] MEDS: DOCUSATE SODIUM 100 MG CAPSULE PO ×2 (09:13→21:16)
[2024-03-27] MEDS: ACETAMINOPHEN 500 MG TABLET 1000 MG PO ×2 (09:13→17:06)
[2024-03-27] MEDS: ENOXAPARIN SODIUM 40 MG/0.4 ML SYRINGE SUBQ (09:14)
[2024-03-27] MEDS: IBUPROFEN 400 MG TABLET 800 MG PO ×2 (14:20→22:03)
[2024-03-27 17:06] VITALS: BP 133/70; PULSE 82
[2024-03-27 17:09] VITALS: TEMP 36.5
[2024-03-27] MEDS: ARIPIPRAZOLE 5 MG TABLET PO (21:16)
[2024-03-27] MEDS: CITALOPRAM HYDROBROMIDE 20 MG TABLET PO (21:16)
[2024-03-28 01:50] VITALS: TEMP 36.6
[2024-03-28 01:52] VITALS: BP 123/63; PULSE 78
[2024-03-28] MEDS: IBUPROFEN 400 MG TABLET 800 MG PO ×2 (06:37→15:24)
[2024-03-28 07:31] VITALS: BP 137/71; PULSE 80
[2024-03-28 07:39] VITALS: TEMP 37
[2024-03-28] MEDS: ENOXAPARIN SODIUM 40 MG/0.4 ML SYRINGE SUBQ (07:39)
[2024-03-28] MEDS: ACETAMINOPHEN 500 MG TABLET 1000 MG PO (07:39)
[2024-03-28] MEDS: DOCUSATE SODIUM 100 MG CAPSULE PO (07:39)
--- NOTE | 2024-03-28 17:00 | DS_ITS ---
DISCHARGE DATE: ??03/28/2024 PRIMARY DIAGNOSES: 1.? Intrauterine at 38 5/7 weeks. 2.? Delivery recommended due to melanoma during per FM for treatment. 3.? Failure to dilate. PROCEDURE:? section. HOSPITAL COURSE:? As expected.? Please see chart for full details.? LABORATORY DATA:? Please see chart. COMPLICATIONS:? None. DISCHARGE CONDITION:? Stable. CONSULTATION:? Anesthesia. DISCHARGE INSTRUCTIONS: 1.? Diet:? Regular. 2.? Medications: a.? Percocet 5/325 one to two p.o. every 4-6 hours p.r.n. pain. b.? Motrin 800 one p.o. every 8 hours p.r.n. pain. 3.? Followup in one week. Restrictions:? Pelvic rest for 6 weeks.? No heavy lifting.? May drive when pain free and no longer on narcotics. MTDD
== END 2024-03-28 17:00 | disposition home or self-care (01) | DRG 540 ==
PROVIDERS: Admitting Provider Obstetrics & Gynecology; Visit Provider Obstetrics & Gynecology
PROC: 10907ZC Drainage of Amniotic Fluid, Therapeutic from Products of Conception, Via Natural or Artificial Opening (ICD-10-PCS; CPT 59514; principal; 2024-03-25 22:30)
DX: O9A.12 Malignant neoplasm complicating childbirth (principal); O62.0 Primary inadequate contractions; Z3A.38 38 weeks gestation of pregnancy; Z37.0 Single live birth; C43.30 Malignant melanoma of unspecified part of face
CPT/HCPCS: 36415; 51702; 59050; 80307; 85025; 85027; 86850; 86900; 86901; 94667; 94668; 96365; 96366; 96372; 96375; 96376; J0736; J1650; J1885; J2274; J2300; J2371; J2795; J3010

== ENCOUNTER 2024-04-01 07:41 | Outpatient (OUT) | payer MEDICAID, SELFPAY ==
--- OUTSIDE RECORDS SUMMARY | 2024-04-01 07:45 | XMS_ITS ---
Patient Summarization (C-CDA 2.1 CCD) Created on: April 01, 2024 VY MCKEON Josephine : 1990 Sex: Female Author Organization Sample organization Care Team Providers Care Intelligent Systems Engineer Name Role Phone Gehlot, Upender Unavailable Unavailable Gehlot, Upender Unavailable Unavailable EMPERATRIZ CERNA Unavailable Unavailable Sally Morejon Primary Care Provider [phone] Unavailable Primary Care Provider UnavailCANDACE Dubon Referring Unavailable Sally Morejon Primary Care Provider [phone] Sally Morejon CNP Primary Care Provider Shayla Valle Unavailable JUMANA Valle Attending Provider [phone] AICHHOLZ, C.O.D. CLERK VITO Admitting Unavailable AICHHOLZ, C.O.D. CLERK VITO Attending Unavailable AICHHOLZ, C.O.D. CLERK VITO Primary Care Unavailable AICHHOLZ, C.O.D. CLERK VITO Consulting Unavailable NORMA ., DR JIN Admitting Unavailable NORMA ., DR JIN Attending Unavailable AICHHOLZ, C.O.D. CLERK VITO Primary Care Unavailable NORMA ., DR JIN Consulting Unavailable RONAK, DR BOBBI Bianchi Consulting Unavailable NORMA ., DR JIN Admitting Unavailable NORMA ., DR JIN Attending Unavailable AICHHOLZ, C.O.D. CLERK VITO Primary Care Unavailable NORMA ., DR JIN Consulting Unavailable RONAK, DR BOBBI Bianchi Consulting Unavailable NORMA ., DR JIN Admitting Unavailable NORMA ., DR JIN Attending Unavailable AICHHOLZ, C.O.D. CLERK VITO Primary Care Unavailable NORMA ., DR JIN Consulting Unavailable AICHHOLZ, C.O.D. CLERK VITO Admitting Unavailable AICHHOLZ, C.O.D. CLERK VITO Attending Unavailable AICHHOLZ, C.O.D. CLERK VITO Primary Care Unavailable NORMA ., DR JIN Admitting Unavailable NORMA ., DR JIN Attending Unavailable AICHHOLZ, C.O.D. CLERK VITO Primary Care Unavailable NORMA ., DR JIN Consulting Unavailable NORMA ., DR JIN Admitting Unavailable NORMA ., DR JIN Attending Unavailable AICHHOLZ, C.O.D. CLERK VITO Primary Care Unavailable NORMA ., DR JIN Consulting Unavailable AGUBOSIM, WADE Consulting Unavailable SOFI XIAO Consulting Unavailable NORMA ., DR JIN Admitting Unavailable NORMA ., DR JIN Attending Unavailable AICHHOLZ, C.O.D. CLERK VITO Primary Care Unavailable NORMA ., DR JIN Consulting Unavailable AICHHOLZ, C.O.D. CLERK VITO Admitting Unavailable AICHHOLZ, C.O.D. CLERK VITO Attending Unavailable AICHHOLZ, C.O.D. CLERK VITO Primary Care Unavailable WEST, DR JO-ANN Nicolas Consulting Unavailable AICHHOLZ, C.O.D. CLERK VITO Consulting Unavailable Yoel Jarrett Unavailable MD Karan Romero Attending Provider NON STAFF Primary Care Provider Unavailabl e NON STAFF Primary Care Unavailable Karan Romero Attending Unavailabl Karan Osuna Admitting Unavailabl e Shayla Valle Attending Unavailable Shayla Valle Admitting Unavailable Delgado GAGE MAKER-C.O.D. CLERK, Freddie Primary Care Provider Unavailable Primary Care Provider Unavailabl e DELGADO, FREDDIE Attending Unavailable DELGADO, FREDDIE Referring Unavailable DELGADO, FREDDIE Primary Care Unavailable ROJAS, FIDENCIO Attending Unavailable DELGADO, FREDDIE Referring Unavailable DELGADO, FREDDIE Primary Care Unavailable Delgado, Freddie Primary Care Provider [phone] GURJIT ROBIN Attending Unavailable DELGADO, FREDDIE Referring Unavailable DELGADO, FREDDIE Primary Care Unavailable Delgado, Freddie Primary Care Provider FIDENCIO ROJAS Attending Unavailable NORMA, ELIAZAR R Referring Unavailable DELGDAO, FREDDIE Primary Care Unavailable ADILENE CESPEDES Attending Unavailable NORMA, ELIAZAR R Referring Unavailable DELGADO, FREDDIE Primary Care Unavailable NORMA, ELIAZAR R Referring Unavailable DELGADO, FREDDIE Primary Care Unavailable CANDACE MORAN Admitting Unavailable CANDACE MORAN Attending Unavailable DELGADO, FREDDIE Primary Care Unavailable GURJIT ROBIN Referring Unavailable DELGADO, FREDDIE Primary Care Unavailable FIDENCIO ROJAS Referring Unavailable DELGADO, FREDDIE Primary Care Unavailable Delgado C.O.D. CLERK, Freddie [place] Primary Care Provid er NORMA, ELIAZAR Attending Unavailable BRONWYN, DIONNE Attending Unavailable NORMA, ELIAZAR Attending Unavailable NORMA, ELIAZAR Attending Unavailable BRONWYN, DIONNE Attending Unavailable NORMA, ELIAZAR Attending Unavailable NORMA, ELIAZAR Attending Unavailable NORMA, ELIAZAR Attending Unavailable NORMA, ELIAZAR Attending Unavailable NORMA, ELIAZAR Attending Unavailable BAILIT, ANA Attending Unavailable TUFARO, FRANSICO Referring Unavailable DELGADO, FREDDIE ADRIAN Primary Care Unavail able TUFARO, FRANSICO Attending Unavailable DELGADO, FREDDIE ADRIAN Primary Care Unavail able DELGADO, FREDDIE ADRIAN Primary Care Unavail able ABHYANKAR, USMAN Attending Unavailable BAILIT, ANA Attending Unavailable BAILIT, ANA Referring Unavailable DELGADO, FREDDIE ADRIAN Primary Care Unavail able ABHYANKAR, USMAN Referring Unavailable DELGADO, FREDDIE ADRIAN Primary Care Unavail able ABHYANKAR, USMAN Referring Unavailable DELGADO, FREDDIE ADRIAN Primary Care Unavail able BAIMICHAELLET, ANA Attending Unavailable DELGADO, FREDDIE ADRIAN Primary Care Unavail able Allergies Allergy Classification Reported Allergen(s) Allergy Type Date of Onset Reaction(s) Facility Penicillins (antibiotic) (1 source) Penicillins Drug Allergy 2 Unknown [facility] (13 sources) Penicillins (Antibiotic) Allergy to substance 9 [facility] Work Phone: (8 sources) busPIRone Drug Allergy 0 [facility] Work Phone: (6 sources) Penicillin G Drug Allergy 3 [facility] Work Phone: (1 source) Penicillin Drug Allergy The [facility] (6 sources) Penicillins; Translations: [PENICILLINS] Drug allergy (disorder) 2 [facility] Repository (20 sources) Penicillins Propensity to adverse reactions to drug 2 Other (See Comments), Unknown [facility] (3 sources) Penicillins Drug Allergy 2 Unknown [facility] Encounters Encounter Date Encounter [...] Update Start: 02-22-2024 End: 02-22-2024 ambulatory USMAN ABHYANKAR Facility:[facility] Start: 02-20-2024 End: 02-20-2024 ambulatory USMAN ABHYANKAR Facility:[facility] Start: 02-13-2024 End: 02-15-2024 ambulatory GURJIT ROBIN [facility] Start: 02-11-2024 End: 02-11-2024 ambulatory ELIAZAR CASTANEDA Not Available Start: 01-29-2024 End: 01-29-2024 ambulatory CANDACE MORAN [facility] Start: 01-28-2024 End: 01-28-2024 ambulatory DIONNE BARNHART [...] Surgery Start: 01-08-2024 End: 01-08-2024 ambulatory ELIAZAR WEISSO Not Available Start: 01-04-2024 End: 01-05-2024 ambulatory Fransico Sharp MD Work Phone: Plastic Surgery Comment on above: Malignant melanoma o f skin (HCC) (Primary Dx) Start: 01-04-2024 End: 01-05-2024 Patient encounter procedure Fransico Sharp MD Work Phone: [facility] Start: 12-26-2023 End: 12-27-2023 ambulatory [facility] Facility:[facility] Start: 12-21-2023 Chart abstracting Usman rincon MD Work Phone: Hematology/Oncology Start: 12-17-2023 End: 12-17-2023 ambulatory [facility] Start: 12-17-2023 End: 12-17-2023 Office outpatient visit 10 minutes [facility] GAGE MAKER-C.O.D. CLERK Work Phone: [facility] Comment on above: Nausea and vomiting, unspecified vomiting type (Primary Dx); Psychophysiological insomnia Start: 12-10-2023 End: 12-10-2023 ambulatory ELIAZARRajendra WEISSO Not Available Start: 12-07-2023 Documentation procedure Chris Antonio [facility] Work Phone: [facility] Comment on above: Outgoing Ca ll [...] Start: 11-13-2023 Orders Only Juan Ramon Rodríguez TRUCK DRIVER Mate r[facility] Comment on above: Multigravida of adva nced maternal age in second trimester; Family history of autism; Family history of mental disorder Start: 11-12-2023 Documentation procedure Chris BLISS Work Phone: [facility] Comment on above: Outgoing Ca ll [...] intractable Start: 11-12-2023 End: 11-12-2023 ambulatory DIONNE BANRHART Not Available Start: 10-29-2023 Documentation procedure Chris Antonio [facility] Work Phone: [facility]- [facility] Comment on above: Incoming Ca ll Start: 10-23-2023 Orders Only Angela Guzman [facility] Mat ernal- Medicine at [facility] Comment on above: Multigravida of adva nced maternal age in second trimester (Primary Dx); Family history of autism; Family history of mental disorder Start: 10-22-2023 End: 10-22-2023 ambulatory ELIAZAR CASTANEDA [facility] erik Start: 10-22-2023 End: 10-22-2023 Telemedicine consultation with patient Katarina MUNOZ Work Phone: [facility] Comment on above: Multigravida of adva nced maternal age in second trimester (Primary Dx); Family history of autism; Family history of mental disorder Start: 10-08-2023 End: 10-08-2023 ambulatory ELIAZAR NORMA Not Available Start: 08-30-2023 End: 08-30-2023 ambulatory ELIAZAR NORMA Not Available Start: 05-29-2023 End: 05-29-2023 ambulatory Shayla Tori Other [facility] Other Start: 05-29-2023 Office outpatient vi sit 15 minutes Shayla Valle [facility] Start: 03-19-2023 End: 03-19-2023 ambulatory NON STAFF Facility:[facility] Start: 03-19-2023 End: 03-19-2023 Admission to same day surgery center DIRECTOR CAMP-Adri Valle Work Phone: [facility]-Dig[facility]ive [facility] Work Phone: Start: 03-19-2023 End: 03-19-2023 ambulatory NON STAFF [facility] Work Phone: Start: 02-12-2023 End: 02-12-2023 ambulatory Yoel Jarrett Other [facility] Other Start: 02-12-2023 Office outpatient ne w 30 minutes Yoel Jarrett [facility] Start: 02-09-2023 End: 02-10-2023 ambulatory C.O.D. CLERK VITO YFN Facility:[facility] Start: 02-07-2023 Office outpatient ne w 20 minutes hSayla Valle [facility] Start: 02-07-2023 End: 02-07-2023 ambulatory [facility] Other Start: 02-07-2023 End: 02-07-2023 Patient encounter procedure DIRECTOR CAMP-Adri Valle Work Phone: [facility] Work Phone: Start: 12-27-2022 ambulatory PRADEEP PADRON YFN Facil ity:[facility] Start: 12-16-2022 End: 12-17-2022 ambulatory C.O.D. CLERK VITO AICHBELTRANLissett Facility:[facility] Start: 07-04-2022 End: 07-05-[address] ELIAZAR CASTANEDA . Facility:[facility] Start: 06-08-2022 End: 07-01-[address] ELIAZAR CASTANEDA . Facility:[facility] Start: 05-23-2022 End: 05-23-[address] ELIAZAR CASTANEDA . Facility:[facility] Start: 05-22-2022 Encounter for preprocedural laboratory examination DR ELIAZAR CASTANEDA . [facility] Start: 05-19-2022 End: 05-20-[address] ELIAZAR CASTANEDA . Facility:[facility] Start: 05-19-2022 End: 05-20-2022 Encounter for preprocedural laboratory examination DR ELIAZAR CASTANEDA . Facility:[facility] Start: 05-18-2022 End: 05-19-[address] ELIAZAR CASTANEDA . Facility:[facility] Start: 05-03-2022 End: 05-04-[address] ELIAZAR CASTANEDA . Facility:[facility] Start: 05-03-2020 End: 05-03-2020 ambulatory Candace Grossman Work Phone: [facility] Work Phone: Start: 05-03-2020 End: 05-04-2020 Patient encounter procedure CANDACE GROSSMAN [facility] Start: 05-03-2020 End: 05-03-2020 Subsequent hospital visit by physician ARMANI [facility] Start: 04-08-2020 End: 04-08-2020 ambulatory Linnea Luz Work Phone: [facility] Work Phone: Start: 03-29-2020 End: 03-29-2020 General Emilee Short Work Phone: [facility] Work Phone: Start: 03-29-2020 End: 03-29-2020 Telemedicine consultation with patient Candace Grossman Work Phone: [facility] Work Phone: Start: 01-08-2020 End: 01-08-2020 Telemedicine consultation with patient Candace Grossman Work Phone: [facility] Work Phone: Start: 12-30-2019 End: 12-30-2019 Patient encounter procedure Emilee Sanford Work Phone: [facility] Work Phone: Start: 12-30-2019 End: 12-30-2019 Telemedicine consultation with patient Candace Grossman Work Phone: [facility] Work Phone: Start: 10-14-2019 End: 10-14-2019 Established patient Bobbi Colon Work Phone: [facility] Work Phone: Start: 09-04-2019 End: 09-04-2019 Established patient Bobbi Colon Work Phone: [facility] Work Phone: Start: 08-19-2019 End: 08-19-2019 Nursing evaluation of patient and report Candace Grossman Work Phone: [facility] Work Phone: Start: 07-28-2019 End: 07-28-2019 Established patient Bobbi Colon Work Phone: [facility] Work Phone: Start: 07-28-2019 End: 07-28-2019 New patient Candace Grossman Work Phone: [facility] Work Phone: Start: 08-13-2017 End: 08-14-2017 Ambulatory [facility] Facility:[facility] Goals Date Patient Goal Desired Activity /State Personal health goal Immunizations Immunization Date Immunization Notes Care Provider Maryuri gómez 05-11-2023 influenza virus vaccine, unspecified formulation Katarina Antonio [facility] Work Phone: [facility] 07-16-2022 SARS-COV-2 (COVID-19 ) vaccine, mRNA, spike protein, LNP, bivalent, PF Dionne BRAN Work Phone: [facility] 01-24-2018 tetanus toxoid, redu camden diphtheria toxoid, and acellular pertussis vaccine, adsorbed Dionne BRAN Work Phone: [facility] Medications Current Medications Medication Drug Class(es) Dates Sig (Normalized) Sig (Original) [id number] 200 actuat albuterol 0.09 mg/actuat metered dose [...] Take 400 mg by mouth . nystatin [id number] unt/ml oral suspension (1 source) Polyene Antifungal Start: 05-29-2023 take 5 mL by mouth three times daily Nystatin [id number] UNIT/ML 5 ml Mouth/Throat 3 times a [...] 16, 2023 12:00am omeprazole magne sium (ACID LINE OUT MAN, OMEPRAZOLE, ORAL) Take by mouth as directed. [...] above: Take by mouth as dir ected. fsteylxk29-hrvz-sckox- omega3 29-1-400 mg combo pack,tablet & capDR (9 sources) -skbw- folic -omega3 29-1-400 mg combo pack,tablet & [...] mg/ml oral solution (4 sources) Phenothiazine, Uncompetitive O-yxqelv-T-aspartat e Receptor Antagonist, Sigma-1 Agonist Start: 01-08-2020 [...] Date Payer Category Payer Self-pay 2022 Medicaid [id number] 2019 Unknown 1 - [place] [facility] [id number] [id number]0.6.3 2017 Unknown [id number] 1988 Unknown [id number] 2.16.84 0.1.422265.3.579.2.593 1988 Unknown [id number] 2.16.84 0.1.785360.3.579.2.593 1988 Unknown [id number] 2.16.84 0.1.762306.3.579.2.593 1988 Unknown [id number] 2.16.84 0.1.444355.3.579.2.593 1988 Unknown [id number] 2.16.84 0.1.077421.3.579.2.593 1988 Unknown [id number] 2.16.84 0.1.307357.3.579.2.593 1988 Unknown [id number] 2.16.84 0.1.952091.3.579.2.593 1988 Unknown [id number] 2.16.84 0.1.800412.3.579.2.3 1988 Unknown [id number] 2.16.84 0.1.440454.3.579.2.593 1988 Unknown [id number] 2.16.8 40.1.527657.3.579.2.1285 1988 Unknown [id number] 2.16.8 40.1.750703.3.579.2.1285 1988 Unknown [id number] 2.16.8 40.1.502605.3.579.2.1285 1988 Unknown [id number] 2.16.8 40.1.844943.3.579.2.1285 1988 Unknown [id number] 2.16.8 40.1.421137.3.579.2.1285 1988 Unknown [id number] 2.16.84 0.1.622367.3.579.2.1285 1988 Unknown [id number] 2.16.8 40.1.816524.3.579.2.1285 1988 Unknown [id number] 2.16.8 40.1.135675.3.579.2.1285 1988 Unknown [id number] 2.16.8 40.1.619914.3.579.2.1285 1988 Unknown [id number] 2.16.84 0.1.151853.3.579.2.1258 1988 Unknown [id number] 2.16.84 0.1.127865.3.579.2.1258 1988 Unknown [id number] 2.16.84 0.1.372948.3.579.2.1258 1988 Unknown [id number] 2.16.84 0.1.806262.3.579.2.1258 1988 Unknown [id number] 2.16.84 0.1.686199.3.579.2.1258 1988 Unknown [id number] 2.16.84 0.1.420806.3.579.2.1258 1988 Unknown [id number] 2.16.84 0.1.163545.3.579.2.1258 1988 Unknown [id number] 2.16.84 0.1.972757.3.579.2.1258 1988 Unknown [id number] 2.16.84 0.1.159713.3.579.2.1258 1988 Unknown [id number] 2.16.84 0.1.159177.3.579.2.1258 1988 Unknown [id number] 2.16.840 .1.927265.3.579.2.1259 1959 Medicaid [id number] 2. 16.840.1.690288.19 Self-pay [id number] 2.16.840 .1.562590.3.140.1.08247.5.4 Unknown [employer] [id number] Unknown [id number] 2.16.8 40.1.358198.3.579.2.531 Unknown [id number] 2.16.8 40.1.156039.3.579.2.531 Plan of Treatment Date Care Activity Detail Author Start: 2048 RSV Vaccine (1 - 1-d ose 60+ series) RSV Vaccine (1 - 1-dose 60+ series) [facility] Start: 01-02-2034 Urine microalbumin profile DTaP,Tdap,Td Vaccine (7 - Td or Tdap) [facility] Start: 03-12-2028 Screening for malign ant neoplasm of cervix HPV/Cotest [facility] Start: 03-01-2028 Screening for malign ant neoplasm of cervix [facility] Start: 01-25-2028 DTaP,Tdap and Td Vaccines (6 - Td or Tdap) DTaP,Tdap and Td Vaccines (6 - Td or Tdap) [facility] Start: 01-25-2028 Urine microalbumin profile DTaP,Tdap,Td Vaccine (2 - Td or Tdap) [facility] Start: 12-16-2024 Adult BMI Screening Adult BMI Screen ing [facility] Start: 12-16-2024 Tobacco Screening Tobacco Screening [facility] Start: 10-23-2024 End: 10-23-2024 Unlisted Lab Test Unlisted Lab Test Lab Routine Multigravida of advanced maternal age in second trimester Family history of autism Family history of mental disorder Expected: 10/23/2024 (Approximate), Expires: 10/23/20[facility]: Comment on above: Expected: 10/23/2024 (Approximate), Expires: 10/23/2024 Start: 09-10-2024 Adult BMI Screening Adult BMI Screen ing [facility] Start: 09-10-2024 Depression Screening Depression Scre ening [facility] Start: 09-10-2024 Tobacco Screening Tobacco Screening [facility] Start: 03-17-2024 End: 03-17-2024 Admission to same day surgery center 03/17/2024 11:30 AM EDT Visit (SP) Office Plastic Surgery [address] [id number] Tana Cervantes APRN.C.O.D. CLERK [address] [place] [address] post op Plastic Surgery Comment on above: [...] 03/14/2024 10:45 AM EDT Hospital Encounter Admitting [address] [place] [address] Fransico Sharp MD [address] [place], [place] [phone] Malignant melanoma of skin (HCC) [C43.9] Admitting Comment on above: Malignant melanoma o f skin (HCC) [C43.9] Start: 03-14-2024 End: 03-14-2024 Patient encounter procedure 03/14/2024 8:30 AM EDT Appointment Molecular Imaging [address] [place] [address] MELANOMA-NM LYMPH NODE IMAGING Molecular Imaging Comment on above: MELANOMA-NM LYMPH NO DE IMAGING Start: 03-07-2024 End: 03-07-2024 Anesthesia consultation 03/07/2024 1:20 PM EDT PAT Pre Anesthesia [address] [place] [address] 9, Pacc [address] [place] [address] pacc Pre Anesthesia Comment on above: pacc Start: 03-06-2024 End: 03-06-2024 Patient encounter procedure 03/06/2024 8:00 AM EDT [facility] [address] [address] [place] [address] [place] [address] Consult Maternal Medicine Comment on above: Consult Start: 02-22-2024 End: 02-22-2024 Patient encounter procedure 02/22/2024 10:45 AM EDT Appointment Radiology Pet [facility] [address] [place] [address] ct chest and stn w Radiology Pet CT Comment on above: ct chest and stn w Start: 02-20-2024 End: 02-20-2024 ambulatory 02/20/2024 3:00 PM EDT Results Only [facility] [address] [place] [address] [facility] Start: 02-20-2024 End: 01-22-2025 CBC W Auto Differential panel - Blood COMPLETE BLOOD COUNT AND DIFFERENTIAL Lab Routine Malignant melanoma of skin (HCC) Expected: 02/20/2024 (Approximate), Expires: 01/22/2025 [facility] Comment on above: Expected: 02/20/2024 (Approximate), Expires: 01/22/2025 Start: 02-20-2024 End: 01-22-2025 Comprehensive metabolic 2000 panel - Serum or Plasma COMPREHENSIVE METABOLIC PANEL Lab Routine Malignant melanoma of skin (HCC) Expected: 02/20/2024 (Approximate), Expires: 01/22/2025 [facility] Comment on above: Expected: 02/20/2024 (Approximate), Expires: 01/22/2025 Start: 02-20-2024 End: 02-21-2025 CT Chest W contrast IV CT CHEST W IVCON Radiology Routine Malignant melanoma of skin (HCC) Expected: 02/20/2024 (Approximate), Expires: 02/21/2025 [facility] Comment on above: Expected: 02/20/2024 (Approximate), Expires: [...] skin (HCC) Expected: 02/20/2024 (Approximate), Expires: 01/22/2025 [facility] Comment on above: Expected: 02/20/2024 (Approximate), Expires: 01/22/2025 Start: 02-19-2024 Subsequent hospital visit by physician 02/19/2024 Hospital Encounter [facility] [address] [id number] Fransico Sharp MD [address] [place] [address] Malignant melanoma of skin (HCC) [...] Start: 02-12-2024 End: 02-12-2024 Patient encounter procedure [facility] Comment on above: MELANOMA-NM LYMPH NO DE IMAGING Start: 01-14-2024 End: 01-14-2024 Telemedicine consultation with patient 01/14/2024 10:15 AM EDT Telemedicine [facility] [address] [place] [address] [address] [place] [address] HaydenGurjit MD [address] [place] [address], [address] [place], [place] [phone] [facility] Start: 12-17-2023 End: 12-17-2023 Patient encounter procedure 12/17/2023 1:45 PM EDT Office Visit [facility] [address] [place] [phone] Freddie Delgado APRN-C.O.D. CLERK [address] [place] [phone] [facility] Start: 12-10-2023 End: 12-10-2023 Patient encounter procedure 12/10/2023 2:20 PM EDT Routine [facility] [address] [place] [phone] Eliazar Castaneda DO [address] [place] [address] [facility] Start: 11-20-2023 End: 11-20-2023 Patient encounter procedure 11/20/2023 8:00 AM EST Appointment [facility] [address] [place] [address] [facility] Start: 11-12-2023 End: 11-12-2024 US for US OB ANATOMY SINGLE W US OB CERVICAL LENGTH Imaging Routine Screening, , for anatomic survey Expected: 11/12/2023 (Approximate), Expires: 11/12/2024 [facility] Comment on above: Expected: 11/12/2023 (Approximate), Expires: 11/12/2024 Start: 10-01-2023 Behavioral Health Screening Behavioral Health Screening [facility] Start: 10-01-2023 Depression Assessment Depression Ass essment [facility] Start: 06-01-2023 Covid-19 Vaccine ( season) Covid-19 Vaccine () [facility] Start: 06-01-2023 Influenza vaccination [place] Start: 05-03-2023 Screening for malign ant neoplasm of cervix Pap Smear [facility] Start: 03-19-2023 [facility] Start: 06-02-2020 [facility] Work Phone: Start: 06-01-2020 Influenza vaccination Flu vaccine (# 1) [place], [place] Start: 12-02-2019 Dental Comp Exam [facility] Work Phone: Start: 11-17-2019 [facility] Work Phone: Start: 10-21-2019 Lipid 1996 panel [facility] Work Phone: Start: 10-14-2019 [facility] Work Phone: Comment on above: Note: Please make a referral to: Start: 09-16-2019 Dental Comp Exam [facility] Work Phone: Start: 08-25-2019 Medical Establ ished Patient [facility] Work Phone: Start: 08-20-2019 Urine Pregnanc y Test, In House [facility] Work Phone: Start: 2018 Screening for malign ant neoplasm of cervix HPV Testing [facility] Start: 2009 Screening for malign ant neoplasm of cervix [facility] Start: 2007 DTaP/Tdap/Td vaccine (1 - Tdap) DTaP/Tdap/Td vaccine (1 - Tdap) [place] Start: 2007 Hepatitis B Vaccine (1 of 3 - 19+ 3-dose series) Hepatitis B Vaccine (1 of 3 - 19+ 3-dose series) [facility] Start: 2006 Adult BMI Follow Up Plan Adult BMI Follow Up Plan [facility] Start: 2006 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 Annual PCP Team Chronic Disease Visit [facility] Start: 2006 Hepatitis C screening Hepatitis C Sc reening [facility] Start: 2006 HIV screening HIV Screening [facility] Start: 2006 Spirometry Spirometry [facility] Start: 2003 HIV screening HIV screen Sil [place], [place] Start: 1989 Varicella vaccine (1 of 2 - 2-dose childhood series) Varicella vaccine (1 of 2 - 2-dose childhood series) [facility] Adjt tis trns/reargm t f/c/c/m/n/a/g/h/f 10sqcm/< TRANSFER / REARRANGEMENT ADJACENT TISSUE FACE/NECK DEFECT 10 SQ CM OR LESS Malignant melanoma of skin (HCC) [facility] A60 Alpha fetoprotein, maternal Alpha fetoprotein, maternal Lab Routine Second trimester Ordered: 11/12/2023 [facility] Work Phone: Comment on above: Ordered: 11/12/2023 Bx/exc lymph node op en deep cervical node BIOPSY NODE CERVICAL NECK Malignant melanoma of skin (HCC) [facility] A60 End: 05-03-2020 C.trachomatis N.gonorrhoeae DNA, Thin Prep C.trachomatis N.gonorrhoeae DNA, Thin Prep Microbiology Routine Once for 1 Occurrences starting 05/03/2020 until 05/03/2020 [facility] Comment on above: Once for 1 Occurrenc es starting 05/03/2020 until 05/03/2020 C.trachomatis N.gonorrhoeae DNA, Thin Prep C.trachomatis N.gonorrhoeae DNA, Thin Prep Microbiology Routine 05/03/2020 7:32 AM EDT [facility] SHAYY SANDERS Excision malignant lesion f/e/e/n/l >4.0 cm EXCISION [...] until 02/02/2025 Patient Education Hiatal Hernia (DC) [facility] Work Phone: [facility] Clini [facility] PLASTIC A60 Problems Active Problems Problem Classification Problem [...] morphological and functional abnormalities of placenta; Translations: [[place] affected by other morphological and functional abnormalities [...] Start: 10-25-2023 UNLISTED LAB TEST Miriam Antonio [facility] Work Phone: Start: 09-10-2023 Adult depression scr eening assessment Katarina Antonio [facility] Work Phone: Start: 03-19-2023 Esophagogastroduodenoscopy DIRECTOR CAMP-C Shayla Valle Work Phone: Start: 03-01-2023 Microscopic observat ion [Identifier] in Cervix by Cyto stain Dionne BRAN Work Phone: Start: 02-07-2023 X-ray of right knee DIRECTOR CAMP- C Shayla Valle Work Phone: Start: 05-03-2020 [...] Use Disorders Identification Test ___(0-40) Candace Grossman C.O.D. CLERK Work Phone: Start: 07-28-2019 ANXIETY DISORDER [...] has not occurred!Start: 07-28-2019 currently Sally Jean-Pierre Results Test Name Value Interpretation Reference Range Facility OUTSIDE SURG PATH SLIDE REVI EWon 03-17-2024 CASE REPORT Normal [facility] Comment on above: Order Comment: Speci men Type: FORMALIN-FIXED PARAFFIN-EMBEDDED TISSUE SPECIMENOrdering Facility: AP Outside Review Address: , , Result Comment: Surg ical Pathology Report Case: [id number] Authorizing Provider: Fransico Sharp MD Collected: 03/17/2024 09:09 AM Ordering Location: [facility] Received: 03/17/2024 09:08 AM [facility] Pathologist: Ankita Feldman MD Specimen: Slide(s), 5 SLIDES, [id number] Performed By: #### L [id number] ####[facility] LABIA [id number] [address] DIAGNOSIS COMMENT Normal [facility] Comment on above: Order Comment: [...] the referring institution were reviewed at the [facility]. The SOX10 stain highlights the aforementioned compound [...] for further characterization. Performed By: #### L [id number] ####[facility] LABIA [id number] [address] FINAL DIAGNOSIS Normal [facility] Comment on above: Order Comment: Speci men Type: FORMALIN-FIXED PARAFFIN-EMBEDDED TISSUE SPECIMENOrdering Facility: AP Outside Review Address: , , Result Comment: Skin , left upper cutaneous lip, shave biopsy: - Melanoma (see comment and synoptic report). MPP/SW/mm/03/17/2024 Performed By: #### L [id number] ####[facility] LABCLIA [id number] [address] [place] FINAL PERFORMING LAB Normal [facility] Comment on above: Order Comment: Speci men Type: FORMALIN-FIXED PARAFFIN-EMBEDDED TISSUE SPECIMENOrdering Facility: AP Outside Review Address: , , Result Comment: Diag nostic interpretation performed at [facility], [facility] [address] CLIA# [id number] Special Education Resource Teacher: Ac Duval M.D. Performed By: #### L [id number] ####[facility] LABCLIA [id number] [address] [place] SYNOPTIC REPORT Normal [facility] Comment on above: Order Comment: Speci men Type: FORMALIN-FIXED PARAFFIN-EMBEDDED TISSUE SPECIMENOrdering Facility: AP Outside Review Address: , , Result Comment: INVA SIVE MELANOMA OF THE SKIN: Biopsy MELANOMA OF [...] pT Category: pT1a Performed By: #### L [id number] ####[facility] LABCLIA [id number] [address] Alina 03-11-2024 CNPN Telephone (PLASMN) VY MCKEON ([id number]) 1990 F Date Time Provider Department 03/11/24 [...] BRITNEY - Fully Assessed Reason for Visit: path [...] mg by mouth. - omeprazole magnesium (ACID LINE OUT MAN, OMEPRAZOLE, ORAL) Take by mouth as directed. [...] Encounter Status:Closed by WARD ORTA on 03/11/24 [facility] [place] 03-04-2024 CNPN Telephone (HEMASA) VY MCKEON ([id number]) 1990 F Date Time Provider Department 03/04/24 [...] mg by mouth. - omeprazole magnesium (ACID LINE OUT MAN, OMEPRAZOLE, ORAL) Take by mouth as directed. [...] Encounter Status:Closed by DAISY MURRAY on 03/05/24 [facility] 02-29-2024 CNPN Telephone (PLASMN) VY MCKEON ([id number]) 1990 F Date Time Provider Department 02/29/24 [...] mg by mouth. - omeprazole magnesium (ACID LINE OUT MAN, OMEPRAZOLE, ORAL) Take by mouth as directed. [...] Status:Closed by SURJIT GRIGGS on 03/03/24 [facility] CNPN Telephone (HEMASA) OTTOVY Castellano ([id number]) 1990 F Date Time Provider Department 02/26/24 [...] mg by mouth. - omeprazole magnesium (ACID LINE OUT MAN, OMEPRAZOLE, ORAL) Take by mouth as directed. [...] Encounter Status:Closed by SYLVIA ALCALA on 02/26/[address] [facility] [address] CHEST W IVCONon CT CHEST W IVCON * * *Final Report* * * DATE OF EXAM: Feb 22 2024 11:19AM [facility] 0539 - CT CHEST W IVCON / [...] abdomen: Visualized upper abdomen is grossly unremarkable. Custom Shoe Designer And Maker (topogram) images: Unremarkable. IMPRESSION: Focal groundglass opacity [...] any questions regarding this interpretation, please call [phone]. If you are unable to reach us at the number above, please feel free to contact [facility] eRadiology at [phone]. [id number] Normal [facility] CT NECK SOFT TISSUE W IVCONo n 02-22-2024 CT NECK SOFT TISSUE W IVCON * * *Final Report* * * DATE OF EXAM: Feb 22 2024 11:19AM [facility] 0013 - CT NECK SOFT TISSUE W [...] amalgam. Parotid and submandibular spaces are normal. Supervisor Cleaning And Annealing spaces appear normal. Infrahyoid Neck: Hypopharynx, larynx, [...] any questions regarding this interpretation, please call [phone]. If you are unable to reach us at the number above, please feel free to contact [facility] eRadiology at [phone]. [id number] Normal [facility] CBC W Auto Differential pane l (Bld)on 02-20-2024 Basophils (Bld) [#/Vol] 0.03 10*3/uL Normal <0.11 [facility] Comment on above: Order Comment: Speci men Type: BLOOD SPECIMENOrdering Facility: [facility] Address: [address] [place] [address] Performed By: #### 5 7021-8 ####[facility] [id number] [place] [address] Basophils/100 WBC (Bld) 0.3 % Normal [facility] Comment on above: Order Comment: Speci men Type: BLOOD SPECIMENOrdering Facility: [facility] Address: [address] [place] [address] Performed By: #### 5 7021-8 ####[facility] LABCL[facility] [id number] [place] [address] Differential cell count method Nom (Bld) Auto Normal [facility] Comment on above: Order Comment: Speci men Type: BLOOD SPECIMENOrdering Facility: [facility] Address: [address] [place] [address] Performed By: #### 5 7021-8 ####[facility] LABCL[facility] [id number] [place] [address] Eosinophils (Bld) [#/Vol] 0.08 10*3/uL Normal <0.46 [facility] Comment on above: Order Comment: Speci men Type: BLOOD SPECIMENOrdering Facility: [facility] Address: [address] [place] [address] Performed By: #### 5 7021-8 ####[facility] [id number] [place] [address] Eosinophils/100 WBC (Bld) 0.8 % Normal [facility] Comment on above: Order Comment: Speci men Type: BLOOD SPECIMENOrdering Facility: [facility] Address: [address] [place] [address] Performed By: #### 5 7021-8 ####[facility] LABCL[facility] [id number] [place] [address] Erythrocyte distribution width (RBC) [Ratio] 13.5 % Normal 11.5-15.0 [facility] Comment on above: Order Comment: Speci men Type: BLOOD SPECIMENOrdering Facility: [facility] Address: [address] [place] [address] Performed By: #### 5 7021-8 ####[facility] LABCL[facility] [id number] [place] [address] Hematocrit (Bld) [Volume fraction] 33.4 % Low 36.0-46.0 [facility] Comment on above: Order Comment: Speci men Type: BLOOD SPECIMENOrdering Facility: [facility] Address: [address] [place] [address] Performed By: #### 5 7021-8 ####[facility] LABCL[facility] [id number] [place] [address] Hemoglobin (Bld) [Mass/Vol] 11.2 g/dL Low 11.5-15.5 [facility] Comment on above: Order Comment: Speci men Type: BLOOD SPECIMENOrdering Facility: [facility] Address: [address] [place] [address] Performed By: #### 5 7021-8 ####[facility] LABCL[facility] [id number] [place] [address] Immature granulocytes (Bld) [#/Vol] 0.07 10*3/uL Normal <0.10 [facility] Comment on above: Order Comment: Speci men Type: BLOOD SPECIMENOrdering Facility: [facility] Address: [address] [place] [address] Performed By: #### 5 7021-8 ####[facility] [id number] [place] [address] Immature granulocytes/100 WBC (Bld) 0.7 % Normal [facility] Comment on above: Order Comment: Speci men Type: BLOOD SPECIMENOrdering Facility: [facility] Address: [address] [place] [address] Performed By: #### 5 7021-8 ####[facility] LABCL[facility] [id number] [place] [address] Lymphocytes (Bld) [#/Vol] 1.13 10*3/uL Normal 1.00-4.00 [facility] Comment on above: Order Comment: Speci men Type: BLOOD SPECIMENOrdering Facility: [facility] Address: [address] [place] [address] Performed By: #### 5 7021-8 ####[facility] LABCL[facility] [id number] [place] [address] Lymphocytes/100 WBC (Bld) 10.7 % Normal [facility] Comment on above: Order Comment: Speci men Type: BLOOD SPECIMENOrdering Facility: [facility] Address: [address] [place] [address] Performed By: #### 5 7021-8 ####[facility] LABCL[facility] [id number] [place] [address] MCH (RBC) [Entitic mass] 29.5 pg Normal 26.0-34.0 [facility] Comment on above: Order Comment: Speci men Type: BLOOD SPECIMENOrdering Facility: [facility] Address: [address] [place] [address] Performed By: #### 5 7021-8 ####[facility] LABCL[facility] [id number] [place] [address] MCHC (RBC) [Mass/Vol] 33.5 g/dL Normal 30.5-36.0 [facility] Comment on above: Order Comment: Speci men Type: BLOOD SPECIMENOrdering Facility: [facility] Address: [address] [place] [address] Performed By: #### 5 7021-8 ####[facility] LABCL[facility] [id number] [place] [address] MCV (RBC) [Entitic vol] 87.9 fL Normal 80.0-100.0 [facility] Comment on above: Order Comment: Speci men Type: BLOOD SPECIMENOrdering Facility: [facility] Address: [address] [place] [address] Performed By: #### 5 7021-8 ####[facility] LABCL[facility] [id number] [place] [address] Monocytes (Bld) [#/Vol] 0.52 10*3/uL Normal <0.87 [facility] Comment on above: Order Comment: Speci men Type: BLOOD SPECIMENOrdering Facility: [facility] Address: [address] [place] [address] Performed By: #### 5 7021-8 ####[facility] [id number] [place] [address] Monocytes/100 WBC (Bld) 4.9 % Normal [facility] Comment on above: Order Comment: Speci men Type: BLOOD SPECIMENOrdering Facility: [facility] Address: [address] [place] [address] Performed By: #### 5 7021-8 ####[facility] LABCL[facility] [id number] [place] [address] Neutrophils (Bld) [#/Vol] 8.76 10*3/uL High 1.45-7.50 [facility] Comment on above: Order Comment: Speci men Type: BLOOD SPECIMENOrdering Facility: [facility] Address: [address] [place] [address] Performed By: #### 5 7021-8 ####[facility] LABCL[facility] [id number] [place] [address] Neutrophils/100 WBC (Bld) 82.6 % Normal [facility] Comment on above: Order Comment: Speci men Type: BLOOD SPECIMENOrdering Facility: [facility] Address: [address] [place] [address] Performed By: #### 5 7021-8 ####[facility] [id number] [place] [address] Nucleated RBC (Bld) [#/Vol] 10*3/uL Normal <0.01 [facility] Comment on above: Order Comment: Speci men Type: BLOOD SPECIMENOrdering Facility: [facility] Address: [address] [place] [address] Performed By: #### 5 7021-8 ####[facility] LABCL[facility] [id number] [place] [address] Nucleated RBC/100 WBC (Bld) [Ratio] 0.0 /100 WBC Normal [facility] Comment on above: Order Comment: Speci men Type: BLOOD SPECIMENOrdering Facility: [facility] Address: [address] [place] [address] Performed By: #### 5 7021-8 ####[facility]CL[facility] [id number] [place] [address] Platelet mean volume (Bld) [Entitic vol] 10.0 fL Normal 9.0-12.7 [facility] Comment on above: Order Comment: Speci men Type: BLOOD SPECIMENOrdering Facility: [facility] Address: [address] [place] [address] Performed By: #### 5 7021-8 ####[facility] LABIA [id number] [place] [address] Platelets (Bld) [#/Vol] 199 10*3/uL Normal 150-400 [facility] Comment on above: Order Comment: Speci men Type: BLOOD SPECIMENOrdering Facility: [facility] Address: [address] [place] [address] Performed By: #### 5 7021-8 ####[facility] LABIA [id number] [place] [address] RBC (Bld) [#/Vol] 3.80 10*6/uL Low 3.90-5.20 [facility] Comment on above: Order Comment: Speci men Type: BLOOD SPECIMENOrdering Facility: [facility] Address: [address] [place] [address] Performed By: #### 5 7021-8 ####[facility] LABIA [id number] [place] [address] WBC (Bld) [#/Vol] 10.59 10*3/uL Normal 3.70-11.00 [facility] Comment on above: Order Comment: Speci men Type: BLOOD SPECIMENOrdering Facility: [facility] Address: [address] [place] [address] Performed By: #### 5 7021-8 ####[facility] LABCLIA [id number] [place] [address] Comprehensive metabolic 2000 panelon 02-20-2024 Albumin [Mass/Vol] 3.8 g/dL Low 3.9-4.9 [facility] Comment on above: Order Comment: Speci men Type: BLOOD SPECIMENOrdering Facility: [facility] Address: [address] [place] [address] Performed By: #### 2 4323-8, 253-0 ####[facility] LABCLIA [id number] [place] [address] ALP [Catalytic activity/Vol] 161 U/L High 34-123 [facility] Comment on above: Order Comment: Speci men Type: BLOOD SPECIMENOrdering Facility: [facility] Address: [address] [place], [place] [address] Performed By: #### 2 4323-8, 2531-0 ####[facility] LABIA [id number] [place] [address] ALT [Catalytic activity/Vol] 13 U/L Normal 7-38 [facility] Comment on above: Order Comment: Speci men Type: BLOOD SPECIMENOrdering Facility: [facility] Address: [address] [place], [place] [address] Performed By: #### 2 4323-8, 2532-0 ####[facility]CL[facility] [id number] [place] [address] Anion gap [Moles/Vol] 10 mmol/L Normal 9-18 [facility] Comment on above: Order Comment: Speci men Type: BLOOD SPECIMENOrdering Facility: [facility] Address: [address] [place] [address] Performed By: #### 2 4323-8, 2532-0 ####[facility] LABCLIA [id number] [place] [address] AST [Catalytic activity/Vol] 21 U/L Normal 13-35 [facility] Comment on above: Order Comment: Speci men Type: BLOOD SPECIMENOrdering Facility: [facility] Address: [address] [place] [address] Performed By: #### 2 4323-8, 2531-0 ####[facility] [id number] [place] [address] Bilirubin [Mass/Vol] 0.2 mg/dL Normal 0.2-1.3 [facility] Comment on above: Order Comment: Speci men Type: BLOOD SPECIMENOrdering Facility: [facility] Address: [address] [place] [address] Performed By: #### 2 4323-8, 2531-0 ####[facility] LABCLIA [id number] [place] [address] Calcium [Mass/Vol] 10.1 mg/dL Normal 8.5-10.2 [facility] Comment on above: Order Comment: Speci men Type: BLOOD SPECIMENOrdering Facility: [facility] Address: [address] [place] [address] Performed By: #### 2 4323-8, 2531-0 ####[facility] LABCLIA [id number] [place] [address] Chloride [Moles/Vol] 103 mmol/L Normal 97-105 [facility] Comment on above: Order Comment: Speci men Type: BLOOD SPECIMENOrdering Facility: [facility] Address: [address] [place] [address] Performed By: #### 2 4323-8, 253-0 ####[facility]CL[facility] [id number] [place] [address] CO2 [Moles/Vol] 21 mmol/L Low 22-30 [facility] Comment on above: Order Comment: Speci men Type: BLOOD SPECIMENOrdering Facility: [facility] Address: [address] [place] [address] Performed By: #### 2 4323-8, 0 ####[facility]CL[facility] [id number] [place] [address] Creatinine [Mass/Vol] 0.61 mg/dL Normal 0.58-0.96 [facility] Comment on above: Order Comment: Speci men Type: BLOOD SPECIMENOrdering Facility: [facility] Address: [address] [place] [address] Performed By: #### 2 4323-8, 2531-0 ####[facility]CL[facility] [id number] [place] [address] Creatinine and Glomerular filtration rate.predicted panel (S/P/Bld) 120 mL/min/1.73m??? Normal >=60 [facility] Comment on above: Order Comment: Speci men Type: BLOOD SPECIMENOrdering Facility: [facility] Address: [address] [place] [address] Result Comment: Araseli mated Glomerular Filtration Rate [...] #### 2 4323-8, 0 ####[facility] [id number] [place] [address] Glucose [Mass/Vol] 85 mg/dL Normal 74-99 [facility] Comment on above: Order Comment: Speci men Type: BLOOD SPECIMENOrdering Facility: [facility] Address: [address] [place] [address] Result Comment: The [place] [employer] (ADA) provides guidance for cutoff [...] Standards of Medical Care in Diabetes 2016, [place] [employer]. Diabetes Care. 2016.39(Suppl 1). Performed By: #### 2 43212-06, ####[facility] [id number] [place] [address] Potassium [Moles/Vol] 3.9 mmol/L Normal 3.7-5.1 [facility] Comment on above: Order Comment: Speci men Type: BLOOD SPECIMENOrdering Facility: [facility] Address: [address] [place] [address] Performed By: #### 2 43212-06, ####[facility]CL[facility] [id number] [place] [address] Protein [Mass/Vol] 7.2 g/dL Normal 6.3-8.0 [facility] Comment on above: Order Comment: Speci men Type: BLOOD SPECIMENOrdering Facility: [facility] Address: [address] [place] [address] Performed By: #### 2 43212-06, ####[facility] [id number] [place] [address] Sodium [Moles/Vol] 134 mmol/L Low 136-144 [facility] Comment on above: Order Comment: Speci men Type: BLOOD SPECIMENOrdering Facility: [facility] Address: [address] [place] [address] Performed By: #### 2 4328, ####[facility] [id number] [place] [address] Urea nitrogen [Mass/Vol] 6 mg/dL Low 7-21 [facility] Comment on above: Order Comment: Speci men Type: BLOOD SPECIMENOrdering Facility: [facility] Address: [address] [place] [address] Performed By: #### 2 4323-8, 253-0 ####[facility] [id number] [place] [address] LDH SerPl-cCncon 02-20-2024 LDH [Catalytic activity/Vol] 210 U/L Normal 135-214 [facility] Comment on above: Order Comment: Speci men Type: BLOOD SPECIMENOrdering Facility: [facility] Address: [address] [place], [place] [address] Performed By: #### 2 4323-8, 2531-0 ####[facility] [id number] [place] [address] COMPLETE BLOOD COUNTon 01-28 Erythrocyte distribution width (RBC) [Ratio] 13.6 % Normal 11.5-15.0 [facility] Comment on above: Performed By: #### C GUI [facility], 0, 3083- #### [facility] ([id number]) [address] [place] [address] Hematocrit (Bld) [Volume fraction] 29.4 % Low 35-47 [facility] Comment on above: Performed By: #### C NATASHA MESSER, 0, 3083-10 #### [facility] ([id number]) [address] [place] [address] Hemoglobin (Bld) [Mass/Vol] 10.4 g/dL Low 11.7-15.5 [facility] Comment on above: Performed By: #### C GUI CMP, 0, 3083-1 #### [facility] ([id number]) [address] [place] [address] MCH (RBC) [Entitic mass] 31.0 pg Normal 27-34 [facility] Comment on above: Performed By: #### Adri MESSER CMP, 2531-0, 3083-10 #### [facility] ([id number]) [address] [place] [address] MCHC (RBC) [Mass/Vol] 35.3 g/dL Normal 32-36 [facility] Comment on above: Performed By: #### Adri MESSER CMP, 2531-0, 3083-10 #### [facility] ([id number]) [address] [place] [address] MCV (RBC) [Entitic vol] 88 fL Normal 80-100 [facility] Comment on above: Performed By: #### Adri MESSER CMP, 0, 3083-10 #### [facility] ([id number]) [address] [place] [address] Platelet mean volume (Bld) [Entitic vol] 8.1 fL Normal 7-12 [facility] Comment on above: Performed By: #### Adri MESSER CMP, 0, 3083-10 #### [facility] ([id number]) [address] [place] [address] Platelets (Bld) [#/Vol] 205 10*3/uL Normal 150-450 [facility] Comment on above: Performed By: #### Adri MESSER CMP, 0, 3083-10 #### [facility] ([id number]) [address] [place] [address] RBC COUNT 3.34 X10E12/L Low 3.80-5.20 [facility] Comment on above: Performed By: #### Adri MESSER CMP, 2530, 3083-10 #### [facility] ([id number]) [address] [place] [address] WBC (Bld) [#/Vol] 8.2 10*3/uL Normal 4.0-11.0 [facility] Comment on above: Performed By: #### C GUI, CMP, 2532-0, 3084-1 #### [facility] ([id number]) [address] [place] [address] COMPREHENSIVE METABOLIC PANE Joel 01-29-2024 Albumin [Mass/Vol] 2.8 g/dL Low 3.2-5.3 [facility] Comment on above: Performed By: #### C GUI, CMP, 2532-0, 3084-1 #### [facility] ([id number]) [address] [place] [address] ALP [Catalytic activity/Vol] 103 U/L Normal 39-130 [facility] Comment on above: Performed By: #### Adri MESSER CMP, 2532-0, 3084-1 #### [facility] ([id number]) [address] [place] [address] 98180 ALT [Catalytic activity/Vol] 16 U/L Normal 0-31 [facility] Comment on above: Performed By: #### Adri BC, CMP, 2532-0, 3084-1 #### [facility] ([id number]) [address] [place] [address] 93114 Anion gap [Moles/Vol] 9 mmol/L Normal 5-15 [facility] Comment on above: Performed By: #### C BC, CMP, 2532-0, 3084-1 #### [facility] ([id number]) [address] [place] [address] 54543 AST [Catalytic activity/Vol] 18 U/L Normal 0-41 [facility] Comment on above: Performed By: #### Adri BC, CMP, 2532-0, 3084-1 #### [facility] ([id number]) [address] [place] [address] 20126 Bilirubin [Mass/Vol] 0.3 mg/dL Normal 0.3-1.2 [facility] Comment on above: Performed By: #### C NATASHA MESSER, 2531-0, 3083-10 #### [facility] ([id number]) [address] [place] [address] 58332 Calcium [Mass/Vol] 9.2 mg/dL Normal 8.5-10.5 [facility] Comment on above: Performed By: #### C NATASHA MESSER, 2531-0, 3083-10 #### [facility] ([id number]) [address] [place] [address] 80009 Chloride [Moles/Vol] 105 mmol/L Normal 98-109 [facility] Comment on above: Performed By: #### Adri MESSER CMP, 0, 3083-10 #### [facility] ([id number]) [address] [place] [address] 12591 CO2 [Moles/Vol] 22 mmol/L Normal 22-32 [facility] Comment on above: Performed By: #### Adri MESSER CMP, 0, 3083-10 #### [facility] ([id number]) [address] [place] [address] 48258 Creatinine [Mass/Vol] 0.51 mg/dL Normal 0.40-1.00 [facility] Comment on above: Result Comment: METH OD TRACEABLE TO IDMS STANDARD Performed By: #### Adri MESSER CMP, 0, 3083-10 #### [facility] ([id number]) [address] [place] [address] 23634 eGFR (CKD-EPI) NON-RACE DEPENDENT >90 Normal >59 [facility] Comment on above: Result Comment: Reported eGFR is based on the CKD-EPI 2020 equation that does not use a race coefficient. Performed By: #### Adri MESSER CMP, 2531-0, 3083-10 #### [facility] ([id number]) [address] [place] [address] 01457 Glucose [Mass/Vol] 96 mg/dL Normal 65-99 [facility] Comment on above: Performed By: #### C BC, CMP, 0, 3083-10 #### [facility] ([id number]) [address] [place] [address] 88366 Potassium [Moles/Vol] 4.1 mmol/L Normal 3.5-5.0 [facility] Comment on above: Performed By: #### Adri MESSER CMP, 0, 3083-10 #### [facility] ([id number]) [address] [place] [address] 53013 Protein [Mass/Vol] 6.5 g/dL Normal 6.0-8.0 [facility] Comment on above: Performed By: #### Adri BC, CMP, 0, 3083-10 #### [facility] ([id number]) [address] [place] [address] 76108 Sodium [Moles/Vol] 136 mmol/L Normal 134-146 [facility] Comment on above: Performed By: #### Adri MESSER, CMP, 0, 3083-10 #### [facility] ([id number]) [address] [place] [address] 84475 Urea nitrogen [Mass/Vol] 5 mg/dL Normal 5-23 [facility] Comment on above: Performed By: #### Adri BC, CMP, 0, 3083-10 #### [facility] ([id number]) [address] [place] [address] 27149 LDH [Catalytic activity/Vol] on 01-29-2024 LDH 128 U/L Normal 100-235 [facility] Comment on above: Performed By: #### Adri BC, CMP, 0, 3084-1 #### [facility] ([id number]) [address] [place] [address] 56802 PROTEIN CREAT RATIOon 2023 RANDOM URINE PROTEIN 30 mg/L Normal <120 [facility] Comment on above: Performed By: #### U PCR #### [facility] ([id number]) [address] [place] [address] 26386 U/PRO/BIOLOGICAL SCIENTIST RATIO CALC 0.12 Normal <0.2 [facility] Comment on above: Result Comment: Neph rotic Syndrome is associated with ratios >3.5 Performed By: #### U PCR #### [facility] ([id number]) [address] [place] [address] 70294 URINE CREATININE,RDM 25.84 mg/dL Normal [facility] Comment on above: Performed By: #### U PCR #### [facility] ([id number]) [address] [place] [address] 67110 URIC ACIDon 01-29-2024 Urate [Mass/Vol] 4.1 mg/dL Normal 2.6-7.2 [facility] Comment on above: Performed By: #### C BC, [facility], 2532-0, 3084-1 #### [facility] ([id number]) [address] [place] [address] 02785 CNPRosa 01-25-2024 PRADEEPN Telephone (PLASMN) VY MCKEON ([id number]) 1990 F Date Time Provider Department 01/25/24 [...] mg by mouth. - omeprazole magnesium (ACID LINE OUT MAN, OMEPRAZOLE, ORAL) Take by mouth as directed. [...] Encounter Status:Closed by CYNTHIA PETTY on 01/25/24 [facility] [place] 01-22-2024 PRADEEPN Telephone (VSE EVAKUATORY ROSSIIMICHELLE) VY MCKEON ([id number]) 1990 F Date Time Provider Department 01/22/24 [...] MD 1 hour ago (8:13 AM) MACK Sc, That is fine obstetrically if you are [...] [C43.9] Order(s):CT NECK SOFT TISSUE W IVCON [2085930] Order #: [id number] FUTURE [] iv contrast (will be provided [...] 1 EachRfl: 0 CT CHEST W IVCON [2302210] Order #: [id number] FUTURE [] iv contrast (will be provided [...] EachRfl: 0 LACTATE DEHYDROGENASE [SQLD6] Order #: [id number] FUTURE COMPLETE BLOOD COUNT AND DIFFERENTIAL [SQCBCDIF] Order #: [id number] FUTURE COMPREHENSIVE METABOLIC PANEL [SQCMP] Order #: [id number] FUTURE Prescriptions as of 01/30/2024 - diphenhydramine [...] mg by mouth. - omeprazole magnesium (ACID LINE OUT MAN, OMEPRAZOLE, ORAL) Take by mouth as directed. [...] In Off (more content not included)... Normal [facility] Telephone (OLH351) VY MCKEON ([id number]) 1990 F Date Time Provider Department 01/22/24 ANA PEOPLES EOR233 During your visit today, we recorded the following information about you: Ana Peoples MD 01/22/2024 3:44 PM Signed 01/22/2024 [facility] Pt called and identified ~ [...] mg by mouth. - omeprazole magnesium (ACID LINE OUT MAN, OMEPRAZOLE, ORAL) Take by mouth as directed. [...] Status:Closed by ANA PEOPLES on 01/22/24 Normal [facility] Examination level ultrasound on 01-21-2024 Radiology Study observation (narrative) [facility] Indication anatomy survey. Melanoma, Advanced maternal age, [...] GA 27 w + 4 d Assigned CALUDETTE: 04/03/2024 General Evaluation Cardiac activity present. FHR [...] 9 oz EFW by: Hadlock (HC-AC-FL) Extended Grab Operator 3.1 mm CM 7.6 mm 70% [...] normal LVOT view: normal 3-vessel view: normal 0-axynvq-seqgpjq view: normal Heart / Thorax Situs: situs [...] Read By: Ana Peoples MD MATERNAL MEDICINE [facility] [place] 01-18-2024 CNPN Telephone (OBGYF2) VY MCKEON ([id number]) 1990 F Date Time Provider Department 01/18/24 [...] Reaction Date Reviewed: 12/26/2023 Reviewed by: Renuka Prsaad MA - Fully Assessed Reason for Visit: [...] mg by mouth. - omeprazole magnesium (ACID LINE OUT MAN, OMEPRAZOLE, ORAL) Take by mouth as directed. - PNV no.95/ferrous fum/folic ac ( ORAL) Take by mouth as directed. Problem List As Of Date: 01/18/2024 (None) Encounter Status:Closed by JOSE L CROWLEY on 01/18/24 [facility] CNPN Telephone (OBGYF2) VY MCKEON ([id number]) 1990 F Date Time Provider Department 01/10/24 HISTORICAL OBGYF2 During your visit today, we recorded the following information about you: Rolo Parada 01/10/2024 9:19 AM Signed [employer] msg was sent to patient asking for [...] mg by mouth. - omeprazole magnesium (ACID LINE OUT MAN, OMEPRAZOLE, ORAL) Take by mouth as directed. - PNV no.95/ferrous fum/folic ac ( ORAL) Take by mouth as directed. Problem List As Of Date: 01/10/2024 (None) Encounter Status:Closed by ROLO PARADA on 01/10/24 Normal [facility] [place] 01-09-2024 CNPN Telephone (PLASMN) OTTOVY Castellano ([id number]) 1990 F Date Time Provider Department 01/09/24 FRANSICO SHARP During your visit today, we recorded the following information about you: Fernanda Michael 01/09/2024 9:55 AM Signed Patient called that she is seeing Maternal Med, in her area and was questioning does she need to see one at the [facility]? She is asking for a call.. she is very nervous Surjit Griggs, RN 01/09/2024 12:42 PM Signed Reached out to patient. Instructions provided to see a maternal medicine specialist within the [facility] per Dr. Sharp. This nurse explained that [...] mg by mouth. - omeprazole magnesium (ACID LINE OUT MAN, OMEPRAZOLE, ORAL) Take by mouth as directed. - PNV no.95/ferrous fum/folic ac ( ORAL) Take by mouth as directed. Problem List As Of Date: 01/09/2024 (None) Encounter Status:Closed by FERNANDA MICHAEL on 01/09/24 [facility] CNOVSPon 01-04-2024 CNOVSP Visit (SP) Office (PLASCA) VY MCKEON ([id number]) 1990 F Date Time Provider Department 01/04/24 2:15 PM FRANSICO SHARP During your visit today, we recorded the following information about you: Temperature Pulse Respiration Blood pressure 97.1 degrees 94/minute 20/minute 148/83 Fransico Sharp MD 01/06/2024 9:42 AM Signed DATE: January 03, 2024 CC: New Melanoma Patient Referring Physician: Margarita Kim MD at [facility] in [place] HPI: Vy Mckeon is a 33 year [...] 400 mg by mouth. omeprazole magnesium (ACID LINE OUT MAN, OMEPRAZOLE, ORAL) Take by mouth as directed. 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 Normal [facility] CBC W Auto Differential pane l (Bld)on 12-26-2023 Basophils (Bld) [#/Vol] 0.03 10*3/uL Normal <0.11 [facility] Comment on above: Order Comment: Speci men Type: BLOOD SPECIMENOrdering Facility: [facility] Address: [address] [place] [address] Performed By: #### 5 7021-8 ####[facility] [id number] [place] [address] Basophils/100 WBC (Bld) 0.3 % Normal [facility] Comment on above: Order Comment: Speci men Type: BLOOD SPECIMENOrdering Facility: [facility] Address: [address] [place] [address] Performed By: #### 5 7021-8 ####[facility] [id number] [place] [address] Differential cell count method Nom (Bld) Auto Normal [facility] Comment on above: Order Comment: Speci men Type: BLOOD SPECIMENOrdering Facility: [facility] Address: [address] [place] [address] Performed By: #### 5 7021-8 ####[facility] [id number] [place] [address] Eosinophils (Bld) [#/Vol] 0.15 10*3/uL Normal <0.46 [facility] Comment on above: Order Comment: Speci men Type: BLOOD SPECIMENOrdering Facility: [facility] Address: [address] [place] [address] Performed By: #### 5 7021-8 ####[facility] [id number] [place] [address] Eosinophils/100 WBC (Bld) 1.5 % Normal [facility] Comment on above: Order Comment: Speci men Type: BLOOD SPECIMENOrdering Facility: [facility] Address: [address] [place] [address] Performed By: #### 5 7021-8 ####[facility] [id number] [place] [address] Erythrocyte distribution width (RBC) [Ratio] 13.5 % Normal 11.5-15.0 [facility] Comment on above: Order Comment: Speci men Type: BLOOD SPECIMENOrdering Facility: [facility] Address: [address] [place] [address] Performed By: #### 5 7021-8 ####[facility] [id number] [place] [address] Hematocrit (Bld) [Volume fraction] 35.5 % Low 36.0-46.0 [facility] Comment on above: Order Comment: Speci men Type: BLOOD SPECIMENOrdering Facility: [facility] Address: [address] [place] [address] Performed By: #### 5 7021-8 ####[facility] [id number] [place] [address] Hemoglobin (Bld) [Mass/Vol] 12.0 g/dL Normal 11.5-15.5 [facility] Comment on above: Order Comment: Speci men Type: BLOOD SPECIMENOrdering Facility: [facility] Address: [address] [place] [address] Performed By: #### 5 7021-8 ####[facility] [id number] [place] [address] Immature granulocytes (Bld) [#/Vol] 0.06 10*3/uL Normal <0.10 [facility] Comment on above: Order Comment: Speci men Type: BLOOD SPECIMENOrdering Facility: [facility] Address: [address] [place] [address] Performed By: #### 5 7021-8 ####[facility] [id number] [place] [address] Immature granulocytes/100 WBC (Bld) 0.6 % Normal [facility] Comment on above: Order Comment: Speci men Type: BLOOD SPECIMENOrdering Facility: [facility] Address: [address] [place] [address] Performed By: #### 5 7021-8 ####[facility] [id number] [place] [address] Lymphocytes (Bld) [#/Vol] 1.46 10*3/uL Normal 1.00-4.00 [facility] Comment on above: Order Comment: Speci men Type: BLOOD SPECIMENOrdering Facility: [facility] Address: [address] [place] [address] Performed By: #### 5 7021-8 ####[facility] [id number] [place] [address] Lymphocytes/100 WBC (Bld) 15.0 % Normal [facility] Comment on above: Order Comment: Speci men Type: BLOOD SPECIMENOrdering Facility: [facility] Address: [address] [place] [address] Performed By: #### 5 7021-8 ####[facility] [id number] [place] [address] MCH (RBC) [Entitic mass] 30.1 pg Normal 26.0-34.0 [facility] Comment on above: Order Comment: Speci men Type: BLOOD SPECIMENOrdering Facility: [facility] Address: [address] [place] [address] Performed By: #### 5 7021-8 ####[facility] [id number] [place] [address] MCHC (RBC) [Mass/Vol] 33.8 g/dL Normal 30.5-36.0 [facility] Comment on above: Order Comment: Speci men Type: BLOOD SPECIMENOrdering Facility: [facility] Address: [address] [place] [address] Performed By: #### 5 7021-8 ####[facility] [id number] [place] [address] MCV (RBC) [Entitic vol] 89.0 fL Normal 80.0-100.0 [facility] Comment on above: Order Comment: Speci men Type: BLOOD SPECIMENOrdering Facility: [facility] Address: [address] [place] [address] Performed By: #### 5 7021-8 ####[facility] [id number] [place] [address] Monocytes (Bld) [#/Vol] 0.50 10*3/uL Normal <0.87 [facility] Comment on above: Order Comment: Speci men Type: BLOOD SPECIMENOrdering Facility: [facility] Address: [address] [place] [address] Performed By: #### 5 7021-8 ####[facility] [id number] [place] [address] Monocytes/100 WBC (Bld) 5.1 % Normal [facility] Comment on above: Order Comment: Speci men Type: BLOOD SPECIMENOrdering Facility: [facility] Address: [address] [place] [address] Performed By: #### 5 7021-8 ####[facility] [id number] [place] [address] Neutrophils (Bld) [#/Vol] 7.52 10*3/uL High 1.45-7.50 [facility] Comment on above: Order Comment: Speci men Type: BLOOD SPECIMENOrdering Facility: [facility] Address: [address] [place] [address] Performed By: #### 5 7021-8 ####[facility] [id number] [place] [address] Neutrophils/100 WBC (Bld) 77.5 % Normal [facility] Comment on above: Order Comment: Speci men Type: BLOOD SPECIMENOrdering Facility: [facility] Address: [address] [place] [address] Performed By: #### 5 7021-8 ####[facility] [id number] [place] [address] Nucleated RBC (Bld) [#/Vol] 10*3/uL Normal <0.01 [facility] Comment on above: Order Comment: Speci men Type: BLOOD SPECIMENOrdering Facility: [facility] Address: [address] [place] [address] Performed By: #### 5 7021-8 ####[facility] [id number] [place] [address] Nucleated RBC/100 WBC (Bld) [Ratio] 0.0 /100 WBC Normal [facility] Comment on above: Order Comment: Speci men Type: BLOOD SPECIMENOrdering Facility: [facility] Address: [address] [place] [address] Performed By: #### 5 7021-8 ####[facility] [id number] [place] [address] Platelet mean volume (Bld) [Entitic vol] 10.1 fL Normal 9.0-12.7 [facility] Comment on above: Order Comment: Speci men Type: BLOOD SPECIMENOrdering Facility: [facility] Address: [address] [place] [address] Performed By: #### 5 7021-8 ####[facility] [id number] [place] [address] Platelets (Bld) [#/Vol] 224 10*3/uL Normal 150-400 [facility] Comment on above: Order Comment: Speci men Type: BLOOD SPECIMENOrdering Facility: [facility] Address: [address] [place] [address] Performed By: #### 5 7021-8 ####[facility] [id number] [place] [address] RBC (Bld) [#/Vol] 3.99 10*6/uL Normal 3.90-5.20 [facility] Comment on above: Order Comment: Speci men Type: BLOOD SPECIMENOrdering Facility: [facility] Address: [address] [place] [address] Performed By: #### 5 7021-8 ####[facility] [id number] [place] [address] WBC (Bld) [#/Vol] 9.72 10*3/uL Normal 3.70-11.00 [facility] Comment on above: Order Comment: Speci men Type: BLOOD SPECIMENOrdering Facility: [facility] Address: [address] [place] [address] Performed By: #### 5 7021-8 ####[facility] [id number] [place] [address] CNOVSPon 12-26-2023 CNOVSP Visit (SP) Office (HEMASA) VY MCKEON ([id number]) 1990 F Date Time Provider Department 12/26/23 3:30 PM USMAN GOLDBERG During your visit today, we recorded the following information about you: Temperature Pulse Respiration Blood pressure 97.3 degrees 87/minute 16/minute 134/74 Weight Height Last Period 86.1 kg 1.702 m 06/24/23 Usman Goldberg MD 12/27/2023 12:46 PM Signed NAME: Vy Mckeon CLINIC NO.: [id number] DATE OF SERVICE: December 26, 2023 (Krystal) [...] magnesium (ACID (more content not included)... Normal [facility] metabolic 2000 panelon 12-26-2023 Albumin [Mass/Vol] 3.9 g/dL Normal 3.9-4.9 [facility] Comment on above: Order Comment: Speci men Type: BLOOD SPECIMENOrdering Facility: [facility] Address: [address] [place] [address] Performed By: #### 2 4323-8, 2531-0 ####[facility] [id number] [place] [address] ALP [Catalytic activity/Vol] 109 U/L Normal 34-123 [facility] Comment on above: Order Comment: Speci men Type: BLOOD SPECIMENOrdering Facility: [facility] Address: [address] [place] [address] Performed By: #### 2 432-8, 2531-0 ####[facility] [id number] [place] [address] ALT [Catalytic activity/Vol] 26 U/L Normal 7-38 [facility] Comment on above: Order Comment: Speci men Type: BLOOD SPECIMENOrdering Facility: [facility] Address: [address] [place] [address] Performed By: #### 2 4323-8, 2531-0 ####[facility] [id number] [place] [address] Anion gap [Moles/Vol] 10 mmol/L Normal 9-18 [facility] Comment on above: Order Comment: Speci men Type: BLOOD SPECIMENOrdering Facility: [facility] Address: [address] [place] [address] Performed By: #### 2 4323-8, 2531-0 ####[facility] [id number] [place] [address] AST [Catalytic activity/Vol] 26 U/L Normal 13-35 [facility] Comment on above: Order Comment: Speci men Type: BLOOD SPECIMENOrdering Facility: [facility] Address: [address] [place] [address] Performed By: #### 2 4323-8, 2531-0 ####[facility] [id number] [place] [address] Bilirubin [Mass/Vol] 0.2 mg/dL Normal 0.2-1.3 [facility] Comment on above: Order Comment: Speci men Type: BLOOD SPECIMENOrdering Facility: [facility] Address: [address] [place] [address] Performed By: #### 2 4328, 2531-0 ####[facility] [id number] [place] [address] Calcium [Mass/Vol] 10.1 mg/dL Normal 8.5-10.2 [facility] Comment on above: Order Comment: Speci men Type: BLOOD SPECIMENOrdering Facility: [facility] Address: [address] [place] [address] Performed By: #### 2 4328, ####[facility] [id number] [place] [address] Chloride [Moles/Vol] 103 mmol/L Normal 97-105 [facility] Comment on above: Order Comment: Speci men Type: BLOOD SPECIMENOrdering Facility: [facility] Address: [address] [place] [address] Performed By: #### 2 4328, 0 ####[facility] [id number] [place] [address] CO2 [Moles/Vol] 23 mmol/L Normal 22-30 [facility] Comment on above: Order Comment: Speci men Type: BLOOD SPECIMENOrdering Facility: [facility] Address: [address] [place] [address] Performed By: #### 2 4328, 2531-0 ####[facility] [id number] [place] [address] Creatinine [Mass/Vol] 0.64 mg/dL Normal 0.58-0.96 [facility] Comment on above: Order Comment: Kavin childress Type: BLOOD SPECIMENOrdering Facility: [facility] Address: [address] [place] [address] Performed By: #### 2 4323-8, 2532-0 ####[facility] [id number] [place] [address] Creatinine and Glomerular filtration rate.predicted panel (S/P/Bld) 118 mL/min/1.73m??? Normal >=60 [facility] Comment on above: Order Comment: Kavin childress Type: BLOOD SPECIMENOrdering Facility: [facility] Address: [address] [place] [address] Result Comment: Araseli mated Glomerular Filtration Rate [...] GFR. Performed By: #### 2 4323-8, 2532-0 ####[facility] [id number] [place] [address] Glucose [Mass/Vol] 85 mg/dL Normal 74-99 [facility] Comment on above: Order Comment: Kavin childress Type: BLOOD SPECIMENOrdering Facility: [facility] Address: [address] [place] [address] Result Comment: The [place] [employer] (ADA) provides guidance for cutoff [...] Standards of Medical Care in Diabetes 2016, [place] [employer]. Diabetes Care. 2016.39(Suppl 1). Performed By: #### 2 4323-8, 2531-0 ####[facility] [id number] [place] [address] Potassium [Moles/Vol] 4.1 mmol/L Normal 3.7-5.1 [facility] Comment on above: Order Comment: Speci men Type: BLOOD SPECIMENOrdering Facility: [facility] Address: [address] [place] [address] Performed By: #### 2 4328, 2531-0 ####[facility] [id number] [place] [address] Protein [Mass/Vol] 7.3 g/dL Normal 6.3-8.0 [facility] Comment on above: Order Comment: Speci men Type: BLOOD SPECIMENOrdering Facility: [facility] Address: [address] [place] [address] Performed By: #### 2 4328, 2531-0 ####[facility] [id number] [place] [address] Sodium [Moles/Vol] 136 mmol/L Normal 136-144 [facility] Comment on above: Order Comment: Speci men Type: BLOOD SPECIMENOrdering Facility: [facility] Address: [address] [place] [address] Performed By: #### 2 4323-8, 2531-0 ####[facility] [id number] [place] [address] Urea nitrogen [Mass/Vol] 6 mg/dL Low 7-21 [facility] Comment on above: Order Comment: Speci men Type: BLOOD SPECIMENOrdering Facility: [facility] Address: [address] [place] [address] Performed By: #### 2 4323-8, 2531-0 ####[facility] [id number] [place] [address] LDH SerPl-cCncon 12-26-2023 LDH [Catalytic activity/Vol] 190 U/L Normal 135-214 [facility] Comment on above: Order Comment: Speci men Type: BLOOD SPECIMENOrdering Facility: [facility] Address: [address] [place] [address] Result Comment: Hemo lysis present. The origin [...] indicated. Performed By: #### 2 4323-8, 2532-0 ####[facility] [id number] [place] [address] URETHRITIS/DISCHARGE PLUS VA GINITIS (HTRX)on 11-14-2023 ATOPOBIUM VAGINAE 19.497 Abnormal [facility] althcare ATOPOBIUM VAGINAE Detected Abnormal [place] [facility] BVAB 2,3 (BACTERIAL VAGINOSIS ASSOCIATED BACTERIA 2, 3); MOBILUNCUS SPP 15.096 Abnormal [facility] BVAB 2,3 (BACTERIAL VAGINOSIS ASSOCIATED BACTERIA 2, 3); MOBILUNCUS SPP Detected Abnormal [facility] DIANE ALBICANS, PARAPSILOSIS, TROPICALIS 0 [facility] DIANE ALBICANS, PARAPSILOSIS, TROPICALIS Not detected [facility]ATA [facility]AB[facility]ATA Not detected [facility] DIANE [facility]I [facility] Not [facility] CHLAMYDIA TRACHOMATIS 0 [facility] CHLAMYDIA TRACHOMATIS Not detected [facility] DFR (A1, A5), SUL (1,2) 0 PPM [facility] DFR (A1, A5), SUL (1,2) Not detected [facility] ERMB, C; MEFA 14.773 Abnormal PPM [facility] care ERMB, C; MEFA Detected Abnormal [facility] care GARDNERELLA VAGINALIS 0 [facility] GARDNERELLA VAGINALIS Not detected [facility] Interpretation and review of laboratory results Abnormal [facility] re MEGASPHAERA (TYPES 1, 2) 0 [facility] MEGASPHAERA (TYPES 1, 2) Not detected [facility] MYCOPLASMA GENITALIUM 0 [facility] MYCOPLASMA GENITALIUM Not detected [facility] NEISSERIA GONORRHOEAE 0 [facility] NEISSERIA GONORRHOEAE Not detected [facility] TET B, TET M 18.414 Abnormal PPM [facility] are TET B, TET M Detected Abnormal [facility] are TRICHOMONAS VAGINALIS 0 [facility] TRICHOMONAS VAGINALIS Not detected [facility] Unlisted Lab Teston 11-13-19 24 Unlisted lab test see scanned report [facility] Urinalysis macro (dipstick) panel (U)on 11-12-2023 Bilirubin, UA Negative Negative - 4(70) +++ mg/dL [facility] Blood, UA Negative Negative - 50 Manny/mcL [facility] Clarity, UA Clear [facility] re Color, UA Yellow [facility] Glucose, UA Negative Negative - 1999(110) ++++ mg/dL [facility] Interpretation and review of laboratory results Normal [facility] re Ketones, UA Negative Negative - 160(16) ++++ mg/dL [facility] Leukocytes, UA Negative Negative - 500+++ Luli/mcL [facility] Nitrite, UA Negative Negative - Positive [facility] pH, UA 6.0 5 - 9 [facility] Protein, UA Negative Negative - 1999(20) ++++ mg/dL [facility] Spec Grav, UA 1.020 1 - 1.03 [facility] Urobilinogen, UA 1.0 0.2 - 12 mg/dL [facility] Health[facility] e HCG ( test) IA.rapi d Ql (U)Ordered By: Karan Romero on 03-19-2023 HCG ( test) Ql (U) Negative [facility] HCG,Urineon 03-19-2023 Beta HCG ( test) Ql (U) Negative Normal [facility] Comment on above: Result Comment: PERF ORMED BY: [place] [address] PATHOLOGIST [employer] JOYCE ACHARYA M.D. Performed By: #### U HCG #### [address] Joel 03-19-2023 L --- Specimen: [id number] Received: 03/19/23 Status: HEMANT Johnston Num: [id number] Spec Type: Surgical Subm Dr: Karan Romero MD Tissues: A Duodenum - Biopsy (DUODENAL BX) B Esophagus Biopsy (ESOPHAGEAL) Procedures: HE/Maday, Gross/Micro L4/2 Age/ Patient Sex Location Account Attending Physician Vy Mckeon 32/F [id number] Karan Romero MD SPEC NUM: [id number] RECD: 03/19/23 STATUS: HEMANT JOHNSTON NUM: [id number] ASAD: 03/19/[address] [facility] [address]: Karan Romero MD ENTERED: 03/19/[address] [facility] DR: SPEC TYPE: Surgical DEPT: S [...] submitted in one cassette labeled B1. Specimen: [id number] Received: 03/19/23 Status: HEMANT Johnston Num: [id number] Spec Type: Surgical Subm Dr: Karan Romero MD Tissues: A Duodenum - Biopsy (DUODENAL BX) B Esophagus Biopsy (ESOPHAGEAL) Procedures: HE/4, Gross/Micro L4/2 Patient: Vy Mckeon [id number] (Continued) Specimen: [id number] Received: 03/19/23 (Continued) Signed (signature on file) Doris Reynolds MD 03/20/23 1117 Specimen: [id number] Received: 03/19/23 Status: HEMANT Johnston Num: [id number] Spec Type: Surgical Subm Dr: Karan Romero MD Tissues: A Duodenum - Biopsy (DUODENAL BX) B Esophagus Biopsy (ESOPHAGEAL) Procedures: ROBINA/Maday, Gross/Micro L4/2 Patient: Vy Mckeon [id number] (Continued) Specimen: [id number] Received: 03/19/23 (Continued) Microscopic Description A. Two with H E stained material have been examined. The microscopic findings support the above pathologic diagnosis. B. Two with H E stained material have been examined. The microscopic findings support the above pathologic diagnosis. CPT Codes 28585 x 2 Specimen: [id number] Received: 03/19/23 Status: HEMANT Melissa Num: [id number] Spec Type: Surgical Subm Dr: Karan Romero MD Tissues: A Duodenum - Biopsy (DUODENAL BX) B Esophagus Biopsy (ESOPHAGEAL) Procedures: HE/4, Gross/Micro L4/2 Patient: Vy Mckeon [id number] (Continued) Signed (signature on file) Doris Reynolds MD 03/20/23 1117 [facility] CBC AUTO DIFFon 02-09-2023 BASO # 0.0 103/ul Normal 0.0-0.1 [facility] Comment on above: Performed By: #### C BC ####[facility] [address] [place] [address]Dr. Zafar Branham Basophils/100 WBC (Bld) 0.3 % Normal 0.2-2.0 [facility] Comment on above: Performed By: #### C BC ####[facility] [address] [place], [place] [address]Dr. Zafar Branham EO # 0.2 103/ul Normal 0.0-0.7 [facility] Comment on above: Performed By: #### C BC ####[facility] [address] [place] [address]Dr. Zafar Branham Eosinophils/100 WBC (Bld) 1.7 % Normal 0.9-7.0 [facility] Comment on above: Performed By: #### C BC ####[facility] [address] [place] [address]Dr. Zafar Branham Erythrocyte distribution width (RBC) [Ratio] 13.9 % Normal 11.0-15.0 [facility] Comment on above: Performed By: #### C BC ####[facility] [address] [place], [place] [address]Dr. Zafar Branham Hematocrit (Bld) [Volume fraction] 41.0 % Normal 36.0-48.0 [facility] Comment on above: Performed By: #### C BC ####[facility] [address] [place] [id number]. Zafar Branham Hemoglobin (Bld) [Mass/Vol] 13.4 g/dL Normal 12.0-16.0 [facility] Comment on above: Performed By: #### C BC ####[facility] [address] [place] [address]Dr. Zafar Branham IG # 0.03 10e3/ul Normal 0.00-0.03 [facility] Comment on above: Performed By: #### C BC ####[facility] [address] [place] [address]Dr. Zafar Branham IG % 0.3 % Normal 0.0-0.5 [facility] Comment on above: Performed By: #### C BC ####[facility] [address] [place] [address]Dr. Zafar Branham LYMPH # 1.4 103/ul Normal 1.2-3.8 [facility] Comment on above: Performed By: #### C BC ####[facility] [address] [place] [address]Dr. Zafar Branham Lymphocytes/100 WBC (Bld) 14.8 % Critically low 20.5-60.0 [facility] Comment on above: Performed By: #### C BC ####[facility] [address] [place] [address]Dr. Zafar Branham MANUAL DIFF REQ NO Normal [facility] Comment on above: Performed By: #### C BC ####[facility] [address] [place] [address]Dr. Zafar Branham MCH (RBC) [Entitic mass] 28.8 pg Normal 26.7-34.0 [facility] Comment on above: Performed By: #### C BC ####[facility] [address] [place] [address]Dr. Zafar Branham MCHC (RBC) [Mass/Vol] 32.7 g/dL Normal 29.9-35.2 [facility] Comment on above: Performed By: #### C BC ####[facility] [address] [place] [address]Dr. Zafar Branham MCV (RBC) [Entitic vol] 88.0 fL Normal 81.0-99.0 [facility] Comment on above: Performed By: #### C BC ####[facility] [address] [place] [address]Dr. Zafar Branham MONO # 0.4 103/ul Normal 0.3-0.8 [facility] Comment on above: Performed By: #### C BC ####[facility] E[address] [place], [place] [address]Dr. Zafar Yonas Monocytes/100 WBC (Bld) 3.9 % Normal 1.7-12.0 [facility] Comment on above: Performed By: #### C BC ####[facility] [address] [place], [place] [address]Dr. Zafar Branham NEUT # 7.2 103/ul Critically high 1.4-6.5 [facility] Comment on above: Performed By: #### C BC ####[facility] Ak[address] [place], [place] [address]Dr. Zafar Branham Neutrophils/100 WBC (Bld) 79.0 % Critically high 43.0-75.0 [facility] Comment on above: Performed By: #### C BC ####[facility] Cygu[address] [place], [place] [address]Dr. Zafar Branham Platelet mean volume (Bld) [Entitic vol] 10.7 fL Normal 9.5-13.5 [facility] Comment on above: Performed By: #### C BC ####[facility] [address] [place], [place] [address]Dr. Zafar Yonas PLT 353 103/ul Normal 150-450 [facility] Comment on above: Performed By: #### C BC ####[facility] [address] [place], [place] [address]Dr. Zafar Yonas RBC 4.66 106/ul Normal 4.20-5.40 [facility] Comment on above: Performed By: #### C BC ####[facility] [address] [place], [place] [address]Dr. Zafar Yonas WBC 9.2 103/ul Normal 4.0-11.0 [facility] Comment on above: Performed By: #### C BC ####[facility] [address] [place] [address]DrBryant Zafar Branham CRPon 02-09-2023 CRP 1.0 mg/dL Normal <=1.0 [facility] Comment on above: Performed By: #### C RP, CMP, TSH, LIPID ####[facility] [address] [place] [address]Dr. Zafar Branham FREE T4on 02-09-2023 Free T4 [Mass/Vol] 1.01 ng/dL Normal 0.76-1.46 [facility] Comment on above: Performed By: #### F T4 #### [facility] [address] [place], [place] [address] Dr. Zafar Branham LIPID PROFILEon 02-09-2023 CHOL-HDL RATIO NORM SEE BELOW Normal [facility] Comment on above: Result Comment: 3.3 - 4.4 LOW RISK 4.4 - 7.1 AVERAGE RISK 7.1 - 11.0 MODERATE RISK >11.0 HIGH RISK Performed By: #### C RP, CMP, TSH, LIPID ####[facility] [address] [place] [address]Dr. Zafar Yonas Cholesterol [Mass/Vol] 230 mg/dL Critically high <=200 [facility] Comment on above: Performed By: #### C RP, CMP, TSH, LIPID ####[facility] [address] [place] [address]Dr. Kathytere Branham Cholesterol in HDL [Mass/Vol] 71 mg/dL Critically high 40-60 [facility] Comment on above: Performed By: #### C RP, CMP, TSH, LIPID ####[facility] Q[address] [place] [address]Dr. Kathytere Branham Cholesterol in LDL [Mass/Vol] 139.4 mg/dL Normal [facility] Comment on above: Performed By: #### C RP, CMP, TSH, LIPID ####[facility] [address] [place] [address]Dr. Zafar Branham Cholesterol.total/ Cholesterol in HDL [Mass ratio] 3.2 {ratio} Normal [facility] Comment on above: Performed By: #### C RP, CMP, TSH, LIPID ####[facility] [address] [place] [address]Dr. Zafar Branham HDL NORMAL > or = 60 mg/dl - LO W CARDIOVASCULAR RISK <40 mg/dl - HIGH CARDIOVASCULAR RISK Normal [facility] Comment on above: Performed By: #### C RP, CMP, TSH, LIPID ####[facility] [address] [place] [phone]. Zafar Branham LDL CALC NORMAL SEE BELOW Normal [facility] Comment on above: Result Comment: <100 mg/dl OPTIMAL 100 - 129 mg/dl NEAR OR ABOVE OPTIMAL 130 - 159 mg/dl BORDERLINE HIGH 160 - 189 mg/dl HIGH >190 mg/dl VERY HIGH Performed By: #### C RP, CMP, TSH, LIPID ####[facility] [address] [place] [phone]. Zafar Branham Triglyceride [Mass/Vol] 98 mg/dL Normal <=150 [facility] Comment on above: Performed By: #### C RP, CMP, TSH, LIPID ####[facility] [address] [place] [address]Dr. Zafar Branham VLDL CALC 19.6 mg/dL Normal [facility] Comment on above: Performed By: #### C RP, CMP, TSH, LIPID ####[facility] [address] [place] [id number]. Zafar Branham URon 02-09-2023 , QUAL Negative Normal NEGATIVE [facility] Comment on above: Performed By: #### U AMIC, PREGU #### [facility] [address] [place], [place] [address] Dr. Zafar Branham PROF 14(COMP METB)on 023 Albumin [Mass/Vol] 4.0 g/dL Normal 3.4-5.0 [facility] Comment on above: Performed By: #### C RP, CMP, TSH, LIPID #### [facility] [address] [place] [address] [address] Zafar Branham Albumin/Globulin [Mass ratio] 0.9 {ratio} Normal [facility] Comment on above: Performed By: #### C RP, CMP, TSH, LIPID #### [facility] [address] [place] [address] [address] Zafar Branham ALP [Catalytic activity/Vol] 94 U/L Normal 46-116 [facility] Comment on above: Performed By: #### C RP, CMP, TSH, LIPID #### [facility] [address] [place] [address] [address] Zafar Branham ALT [Catalytic activity/Vol] 30 U/L Normal 14-59 [facility] Comment on above: Performed By: #### C RP, CMP, TSH, LIPID #### [facility] [address] [place] [address] Dr. Zafar Branham Anion gap [Moles/Vol] 13.6 mmol/L Normal [facility] Comment on above: Performed By: #### C RP, CMP, TSH, LIPID #### [facility] [address] [place] [address] Dr. Zafar Branham AST [Catalytic activity/Vol] 23 U/L Normal 15-37 [facility] Comment on above: Performed By: #### C RP, CMP, TSH, LIPID #### [facility] [address] [place] [address] Dr. Zafar Branham Bilirubin [Mass/Vol] 0.3 mg/dL Normal 0.2-1.0 [facility] Comment on above: Performed By: #### C RP, CMP, TSH, LIPID #### [facility] [address] [place] [address] Dr. Zafar Branham Calcium [Mass/Vol] 9.7 mg/dL Normal 8.5-10.1 [facility] Comment on above: Performed By: #### C RP, CMP, TSH, LIPID #### [facility] [address] [place] [address] Dr. Zafar Branham Chloride [Moles/Vol] 100 mmol/L Normal 98-107 [facility] Comment on above: Performed By: #### C RP, CMP, TSH, LIPID #### [facility] [address] [place] [address] [address] Zafar Branham CO2 [Moles/Vol] 26.6 mmol/L Normal 21.0-32.0 [facility] Comment on above: Performed By: #### C RP, CMP, TSH, LIPID #### [facility] [address] [place] [address] Dr. Zafar Branham Creatinine [Mass/Vol] 1.00 mg/dL Normal 0.55-1.02 [facility] Comment on above: Performed By: #### C RP, CMP, TSH, LIPID #### [facility] [address] [place] [address] Dr. Zafar Branham EGFR-AF THAI >60 Normal >=60 [facility] Comment on above: Performed By: #### C RP, CMP, TSH, LIPID #### [facility] [address] [place] [address] Dr. Zafar Branham EGFR-NON AF THAI >60 Normal >=60 [facility] Comment on above: Performed By: #### C RP, CMP, TSH, LIPID #### [facility] [address] [place] [address] Dr. Zafar Branham Globulin (S) [Mass/Vol] 4.5 g/dL Normal [facility] Comment on above: Performed By: #### C RP, CMP, TSH, LIPID #### [facility] [address] [place] [address] Dr. Zafar Branham Glucose [Mass/Vol] 93 mg/dL Normal 74-106 [facility] Comment on above: Performed By: #### C RP, CMP, TSH, LIPID #### [facility] [address] [place] [address] Dr. Zafar Branham Potassium [Moles/Vol] 4.2 mmol/L Normal 3.5-5.1 [facility] Comment on above: Performed By: #### C RP, CMP, TSH, LIPID #### [facility] [address] [place] [address] Dr. Zafar Branham Protein [Mass/Vol] 8.5 g/dL Critically high 6.4-8.2 [facility] Comment on above: Performed By: #### C RP, CMP, TSH, LIPID #### [facility] [address] [place] [address] [address] Zafar Branham Sodium [Moles/Vol] 136 mmol/L Normal 136-145 [facility] Comment on above: Performed By: #### C RP, CMP, TSH, LIPID #### [facility] [address] [place] [address] [address] Zafar Branham Urea nitrogen [Mass/Vol] 10.0 mg/dL Normal 7.0-18.0 [facility] Comment on above: Performed By: #### C RP, CMP, TSH, LIPID #### [facility] [address] [place] [address] [address] Zafar Branham Urea nitrogen/Creatinin e [Mass ratio] 10.0 mg/mg Normal [facility] Comment on above: Performed By: #### C RP, CMP, TSH, LIPID #### [facility] [address] [place] [address] [address] Zafar Branham [facility] mm/hr Critically high <=20 [facility] Comment on above: Performed By: #### S EDR ####[facility] [address] [place] [address]Dr. Zafar Branham TSHon 02-09-2023 TSH 0.590 uIU/mL Normal 0.358-3.740 [facility] Comment on above: Performed By: #### C RP, CMP, TSH, LIPID #### [facility] [address] [place] [address] [address] Zafar Branham UA RANDOM W/MICROSCOPICon BACTERIA NONE SEEN Normal NONE SEEN [facility] Comment on above: Performed By: #### U AMIC, PREGU #### [facility] [address] [place] [address] [address] Zafar Branham Bilirubin Ql (U) Negative Normal NEGATIVE [facility] Comment on above: Performed By: #### U AMIC, PREGU #### [facility] [address] [place] [address] [address] Zafar Branham CAST NONE SEEN Normal NONE SEEN [facility] Comment on above: Performed By: #### U AMIC, PREGU #### [facility] [address] [place] [address] [address] Zafar Branham Clarity (U) CLEAR Normal CLEAR [facility] Comment on above: Performed By: #### U AMIC, PREGU #### [facility] [address] [place] [address] [address] Zafar Branham Color (U) LT. YELLOW Normal YELLOW [facility] Comment on above: Performed By: #### U AMIC, PREGU #### [facility] [address] [place] [address] Dr. Zafar Branham Crystals LM Nom (Urine sed) NONE SEEN Normal NONE SEEN [facility] Comment on above: Performed By: #### U AMIC, PREGU #### [facility] [address] [place] [address] Dr. Zafar Branham Epithelial cells LM Ql (Urine sed) FEW Abnormal NONE SEEN /RARE [facility] Comment on above: Performed By: #### U AMIC, PREGU #### [facility] [address] [place] [address] Dr. Zafar Branham Glucose Ql (U) Negative Normal NEGATIVE [facility] Comment on above: Performed By: #### U AMIC, PREGU #### [facility] [address] [place] [address] [address] Zafar Branham Hemoglobin Ql (U) SMALL Abnormal NEGATIVE [facility] Comment on above: Performed By: #### U AMIC, PREGU #### [facility] [address] [place] [address] Dr. Zafar Branham Ketones Ql (U) Negative Normal NEGATIVE [facility] Comment on above: Performed By: #### U AMIC, PREGU #### [facility] [address] [place] [address] [address] Zafar Branham LEUKOCYTES Negative Normal NEGATIVE [facility] Comment on above: Performed By: #### U AMIC, PREGU #### [facility] [address] [place] [address] [address] Zafar Branham MUCOUS NONE SEEN Normal NONE SEEN [facility] Comment on above: Performed By: #### U AMIC, PREGU #### [facility] [address] [place] [address] [address] Zafar Branham Nitrite Ql (U) Negative Normal NEGATIVE [facility] Comment on above: Performed By: #### U AMIC, PREGU #### [facility] [address] [place] [address] [address] Zafar Branham pH (U) 6.0 [pH] Normal 5-9 [facility] Comment on above: Performed By: #### U AMIC, PREGU #### [facility] [address] [address] [address] Zafar Branham RBC 0-2 Normal 0-2 [facility] Comment on above: Performed By: #### U AMIC, PREGU #### [facility] [address] [address] [address] Zafar Branham SPEC GRAVITY <=1.005 Abnormal 1.005-<=1.025 [facility] Comment on above: Performed By: #### U AMIC, PREGU #### [facility] [address] [place] [address] Dr. Zafar Branham UA PROTEIN Negative Normal NEGATIVE/ TRACE [facility] Comment on above: Performed By: #### U AMIC, PREGU #### [facility] [address] [address] [address] Zafar Branham Urobilinogen Qn (U) 0.2 {Ramy'U}/dL Normal 0.2 - 1.0 [facility] Comment on above: Performed By: #### U AMIC, PREGU #### [facility] [address] [place] [address] Dr. Zafar Branham WBC NONE SEEN Normal NONE SEEN [facility] Comment on above: Performed By: #### U AMIC, PREGU #### [facility] [address] [address] [address] Zafar Branham XR knee RT 4V*on 02-07-2023 XR knee RT 4V* [facility] [address] [place] [address] XRay Report Signed Patient: Vy Mckeon MR#: [id number] 5 : 1990 Acct:[id number] Age/Sex: 32 / F ADM Date: 02/07/23 Loc: XDUCLY Room: Type: REG CLI Attending Dr: Shayla DENNEY Copies to: JUMANA [...] Rama Garsia M.D.02/07/2023 10:01 AM Dictation Location: [facility]10 Transcribed By: [facility] 02/07/23 1001 Dictated By: Rama Garsia MD 02/07/23 1000 Signed By: 02/07/23 1001 Normal [facility] XR knee RT 4V* [facility] [employer] Other XR knee RT 4V* [facility] [employer] Other XR knee RT 4V* [address] [facility] [employer] Other XR knee RT 4V* [place] [address] No rt [employer] Other XR knee RT 4V* XRay Report [employer] Other XR knee RT 4V* Signed [email or web address] Other XR knee RT 4V* Patient: Vy Mckeon MR#: [id number] [facility] Other XR knee RT 4V* 5 [email or web address] Other XR knee RT 4V* : 1990 Acct:[id number] [facility] Other XR knee RT 4V* Age/Sex: 32 / F ADM Date: 02/07/23 [facility] Other XR knee RT 4V* Loc: XDUCLY Room: pe: REG CLI [facility] Other XR knee RT 4V* Attending Dr: Shayla DENNEY [facility] Other XR knee RT 4V* Copies to: JUMANA Christianson [facility] Other XR knee RT 4V* Ordering Provider: JUMANA Christianson [facility] Other XR knee RT 4V* Date of Service: 02/07/23 [facility] Other XR knee RT 4V* XR/XR knee RT 4V*: RIGHT KNEE PAIN [facility] Other XR knee RT 4V* RIGHT KNEE - 4 views [facility] Other XR knee RT 4V* COMPARISON: None [employer] Other XR knee RT 4V* CLINICAL DATA: Lolita nt fell last night and landed on right anterior knee. Pain, swelling and [facility] Other XR knee RT 4V* abrasions. [email or web address] Other XR knee RT 4V* AP, lateral and both oblique views were obtained. There is no fracture or dislocation. There is no [facility] Other XR knee RT 4V* significant knee effusion or focal soft tissue swelling. [facility] Other XR knee RT 4V* XR/XR knee RT 4V* [facility] Other XR knee RT 4V* IMPRESSION: [employer] Other XR knee RT 4V* NO ACUTE BONY INJURY. [facility] Other XR knee RT 4V* Impression dictated by: Rama Garsia M.D.02/07/2023 10:01 AM [facility] Other XR knee RT 4V* Dictation Location: [place] [address] [facility] Other XR knee RT 4V* Transcribed By: MILKA 02/07/23 1001 [facility] Other XR knee RT 4V* Dictated By: Rama Garsia MD 02/07/23 1000 [facility] Other XR knee RT 4V* Signed By: [email or web address] Other XR knee RT 4V* 02/07/23 1001 [employer] Other XR HIPS KARELY 5V W PELVISon [...] JO-ANN CHACON Date: 2022-12-17 13:04 Normal [facility] PREG QUANT HCGon 07-04-2022 HCG QUANT 1 mIU/mL Normal [facility] Comment on above: Performed By: #### P REGQNT #### [facility] [address] [place] [address] Dr. Zafar Branham HCG RANGE SEE BELOW Normal [facility] Comment on above: Result Comment: 5-50 0.2-1 WEEK 50-500 1-2 WEEKS 100-5,000 2-3 WEEKS 500-10,000 3-4 WEEKS 1,000-50,000 4-5 WEEKS 10,000-100,000 5-6 WEEKS 15,000-200,000 6-8 WEEKS 10,000-100,000 2-3 MONTHS Performed By: #### P REGQNT #### [facility] [address] [place] [address] Dr. Zafar Branham PREG QUANT HCGon 06-08-2022 HCG QUANT 16 mIU/mL Normal [facility] Comment on above: Performed By: #### P REGQNT ####[facility] [address] [place], [place] [address]Dr. Zafar Branham HCG RANGE SEE BELOW Normal [facility] Comment on above: Result Comment: 5-50 0.2-1 WEEK 50-500 1-2 WEEKS 100-5,000 2-3 WEEKS 500-10,000 3-4 WEEKS 1,000-50,000 4-5 WEEKS 10,000-100,000 5-6 WEEKS 15,000-200,000 6-8 WEEKS 10,000-100,000 2-3 MONTHS Performed By: #### P REGQNT ####[facility] [address] [place], [place] [address]Dr. Zafar Branham CBC AUTO DIFFon 05-23-2022 BASO # 0.0 103/ul Normal 0.0-0.1 [facility] Comment on above: Performed By: #### C BC #### [facility] [address] [place] [address] Dr. Zafar Branham Basophils/100 WBC (Bld) 0.6 % Normal 0.2-2.0 [facility] Comment on above: Performed By: #### C BC #### [facility] [address] [place] [address] Dr. Zafar Branham EO # 0.3 103/ul Normal 0.0-0.7 [facility] Comment on above: Performed By: #### C BC #### [facility] [address] [place] [address] Dr. Zafar Branham Eosinophils/100 WBC (Bld) 6.5 % Normal 0.9-7.0 [facility] Comment on above: Performed By: #### C BC #### [facility] [address] [place] [address] Dr. Zafar Branham Erythrocyte distribution width (RBC) [Ratio] 12.5 % Normal 11.0-15.0 [facility] Comment on above: Performed By: #### C BC #### [facility] [address] [place] [address] Dr. Zafar Branham Hematocrit (Bld) [Volume fraction] 37.2 % Normal 36.0-48.0 [facility] Comment on above: Performed By: #### C BC #### [facility] [address] [place] [address] Dr. Zafar Branham Hemoglobin (Bld) [Mass/Vol] 12.1 g/dL Normal 12.0-16.0 [facility] Comment on above: Performed By: #### C BC #### [facility] [address] [place] [address] Dr. Zafar Branham IG # 0.01 10e3/ul Normal 0.00-0.03 [facility] Comment on above: Performed By: #### C BC #### [facility] [address] [place] [address] Dr. Zafar Branham IG % 0.2 % Normal 0.0-0.5 [facility] Comment on above: Performed By: #### C BC #### [facility] [address] [place] [address] Dr. Zafar Branham LYMPH # 1.5 103/ul Normal 1.2-3.8 [facility] Comment on above: Performed By: #### C BC #### [facility] [address] [place] [address] Dr. Zafar Branham Lymphocytes/100 WBC (Bld) 29.8 % Normal 20.5-60.0 [facility] Comment on above: Performed By: #### C BC #### [facility] [address] [place] [address] Dr. Zafar Branham MANUAL DIFF REQ NO Normal [facility] Comment on above: Performed By: #### C BC #### [facility] [address] [place] [address] Dr. Zafar Branham MCH (RBC) [Entitic mass] 29.1 pg Normal 26.7-34.0 [facility] Comment on above: Performed By: #### C BC #### [facility] [address] [place] [address] Dr. Zafar Branham MCHC (RBC) [Mass/Vol] 32.5 g/dL Normal 29.9-35.2 [facility] Comment on above: Performed By: #### C BC #### [facility] [address] [place] [address] Dr. Zafar Branham MCV (RBC) [Entitic vol] 89.4 fL Normal 81.0-99.0 [facility] Comment on above: Performed By: #### C BC #### [facility] [address] [place] [address] Dr. Zafar Branham MONO # 0.4 103/ul Normal 0.3-0.8 [facility] Comment on above: Performed By: #### C BC #### [facility] [address] [place] [address] Dr. Zafar Branham Monocytes/100 WBC (Bld) 7.9 % Normal 1.7-12.0 [facility] Comment on above: Performed By: #### C BC #### [facility] [address] [place] [address] Dr. Zafar Branham NEUT # 2.7 103/ul Normal 1.4-6.5 [facility] Comment on above: Performed By: #### C BC #### [facility] [address] [place] [address] Dr. Zafar Branham Neutrophils/100 WBC (Bld) 55.0 % Normal 43.0-75.0 [facility] Comment on above: Performed By: #### C BC #### [facility] [address] [address] [address] Zafar Branham Platelet mean volume (Bld) [Entitic vol] 10.0 fL Normal 9.5-13.5 [facility] Comment on above: Performed By: #### C BC #### [facility] [address] [address] [address] Zafar Branham PLT 229 103/ul Normal 150-450 [facility] Comment on above: Performed By: #### C BC #### [facility] [id number] Zafar Branham RBC 4.16 106/ul Critically low 4.20-5.40 [facility] Comment on above: Performed By: #### C BC #### [facility] [address] [address] [address] Zafar Branham WBC 5.0 103/ul Normal 4.0-11.0 [facility] Comment on above: Performed By: #### C BC #### [facility] [address] [address] [address] Zafar Branham TYPE AND SCREENon 05-23-2022 TYPE AND SCREEN Negative Normal [facility] Comment on above: Performed By: #### T NS ####[facility] [address] [id number] Zafar Branham Covid-19 PCR (CVDTB)on 05-01 SARS-CoV-2 (COVID-19) RNA MANOLO+probe Ql (Unsp spec) Not detected Normal NOT DETECTED [facility] Comment on above: Result Comment: This test is not yet approved or cleared by the [place] FDA. When there are no FDA-approved or cleared tests available, and other criteria are met, FDA can make tests available under an emergency access mechanism called an Emergency Use Authorization (EUA). The EUA for this test is supported by the [place] of Health and Human Service's (HHS's) declaration [...] consistent with SARS-CoV-2. Performed By: #### C [facility] #### [facility] [address] [place] [address] Dr. Zafar Branham US PREG TVon 05-18-2022 [...] BOBBI SIMONS Date: 2022-05-18 19:25 Normal [facility] US PREG TVon 05-03-2022 US PREG [...] by: BOBBI SIMONS Date: 2022-05-03 16:32 Normal [facility] Chlamydia/GC DNA, TPon 05-05 Chlamydia Probe, TP Negative Normal NEG [facility] Comment on above: Result Comment: CHLA MYDIA [...] target. Performed By: #### C YTCGP #### [id number] Quotation Clerk: King Boone MD Gonorrhea Probe, TP Negative Normal NEG [facility] Comment on above: Result Comment: NEIS SERIA [...] target. Performed By: #### C YTCGP #### [id number] Quotation Clerk: King Boone MD HPV DNA High Riskon 05-05-20 20 HPV Interp Normal [facility] Comment on above: Result Comment: This test [...] purposes. Performed By: #### H PVH #### [address] [address] Quotation Clerk: King Boone MD HPV Sample .THIN PREP Normal [facility] Comment on above: Performed By: #### H PVH #### [facility] [employer] [address] [place] [address] Quotation Clerk: King Boone MD HPV Type 16 Not Detected [facility] Comment on above: Performed By: #### H PVH #### [address] [address] Quotation Clerk: King Boone MD HPV Type 18 Not Detected Normal [facility] Comment on above: Performed By: #### H PVH #### [address] [address] Quotation Clerk: King Boone MD Other High Risk HPV Not Detected [facility] Comment on above: Performed By: #### H PVH #### [address] [address] Quotation Clerk: King Boone MD Source .ENDOCERVIX Normal [facility] Comment on above: Performed By: #### H PVH #### [facility] [employer] [address] [place] [phone] Quotation Clerk: King Boone MD Otheron 05-04-2020 Direct Exam Negative [place] VAGINITIS DNA PROBEon 2019 Direct Exam Positive Abnormal [place] Direct Exam Method of testing is a DNA probe intended for detection and identification of Diane species, Gardnerella vaginalis, and Trichomonas vaginalis nucleic acid in vaginal fluid specimens from patients with symptoms of vaginitis/vaginosis. [place] Interpretation and review of laboratory results Abnormal [place] Special Requests NOT REPORTED [place] Specimen Description .VAGINAL SWAB [place] Vaginitis DNA Probeon 2019 Vaginitis DNA [...] of vaginitis/vaginosis. Report Status FINAL 05/04/2020 Normal [facility] Comment on above: Performed By: #### V AGDNA #### [facility] [employer] [facility] [place] [address] Quotation Clerk: King Boone MD Cytologyon 05-03-2020 Cytology (NOTE) INTERPRETATION Endocervical material, (Thin prep vial, Imaging-assisted review): Specimen Adequacy: Satisfactory for evaluation. - Endocervical/transforma tion zone component present. Descriptive Diagnosis: Negative for intraepithelial lesion or malignancy. Shift in ray suggestive of bacterial vaginosis. Comments: High Risk HPV testing was ordered. Pharmacy Service Associate: JAYLIN Higgins(ASCP) Electronically Signed Out ana/05/07/2020 Procedure/Addendum [...] GYNECOLOGIC CYTOLOGY REPORT Patient Name: VY MCKEON [facility] Rec: [id number] Path Number: [id number] [facility] [employer] [facility] ANATOMIC PATHOLOGY [address] [place] [id number] [facility] Comment on above: Performed By: #### P PPVP #### [address] [id number] Quotation Clerk: King Boone MD Social History Date Type Detail Facility Start: 12-26-2023 End: 01-21-2024 Alcohol intake Current drinker of alcohol (finding) [facility] Start: 11-12-2023 Alcohol intake Lifetime non-d rhys (finding) [facility] Start: 10-10-2023 End: 12-17-2023 Alcohol intake Ex-drinker (finding) [facility] Start: 09-10-2023 End: 02-20-2024 Sex Assigned At [facility] Start: 09-10-2023 End: 02-20-2024 History of Social function [facility] Start: 07-12-2023 [facility] Start: 03-09-2023 Education [facility] Start: 03-09-2023 Alcohol Comment Caffeine intak e: 1-2 cups per day coffee, pop [facility] Start: 04-05-2022 End: 12-26-2023 Tobacco smoking status NHIS Never smoked tobacco [facility] Start: 04-05-2022 End: 12-26-2023 Tobacco use and exposure Smokeless tobacco non-user [facility] Start: 1990 Sex Assigned At Not on file [place] Start: 1990 Sex Assigned At Female [facility] Assertion Alcohol consumpt ion screening (procedure) [facility] Work Phone: [facility]ion [facility] [employer] [facility] Assertion Finding of alcoh ol intake (finding) [facility] Work Phone: Assertion Sexually active (finding) [facility] Work Phone: Assertion Gender identity finding (finding) [facility] Work Phone: Assertion Finding of sexua l orientation (finding) [facility] Work Phone: Tobacco smoking status Unknown if ever smoked [facility] Assertion Emotional stress (finding) [facility] Work Phone: Assertion Contraception (finding) [facility] Work Phone: How hard is it for you to pay for the very basics like food, housing, medical care, and heating Very hard [facility] NEGATED: Highlighted row Assertion He has not had 5 or more drinks in a day within the past year. [facility] Work Phone: NEGATED: Highlighted row Assertion Exposure to pollution (event) [facility] Work Phone: NEGATED: Highlighted row Assertion Tobacco user (finding) [facility] Work Phone: NEGATED: Highlighted row Assertion Current drinker of alcohol (finding) [facility] Work Phone: NEGATED: Highlighted row Assertion Finding relating to drug misuse behavior (finding) [facility] Work Phone: Vital Signs Date Time Vital Sign Value Performing Clinician Facility 01-21-2024 11:59-0400 Body weight 87.1 kg Ana Peoples MD Work Phone: [facility] 01-21-2024 11:59-0400 Diastolic blood pressure 75 mm[Hg] Ana Peoples MD Work Phone: [facility] 01-21-2024 11:59-0400 Heart rate 108 /min Ana Peoples MD Work Phone: [facility] 01-21-2024 11:59-0400 Systolic blood pressure 125 mm[Hg] Ana Peoples MD Work Phone: [facility] 01-21-2024 11:02-0400 Body height 170.2 cm Ana Peoples MD Work Phone: [facility] 01-21-2024 11:02-0400 Body mass index (BMI) [Ratio] 30.07 kg/m2 Ana Peoples MD Work Phone: [facility] 01-21-2024 11:02-0400 Body weight 87.09 kg Ana Peoples MD Work Phone: [facility] 01-04-2024 14:31-0400 Body temperature 97.11 [degF] Fransico Sharp MD Work Phone: [facility] 01-04-2024 14:31-0400 Diastolic blood pressure 83 mm[Hg] Fransico Sharp MD Work Phone: [facility] 01-04-2024 14:31-0400 Heart rate 94 /min Fransico Sharp MD Work Phone: [facility] 01-04-2024 14:31-0400 Respiratory rate 20 /min Fransico Sharp MD Work Phone: [facility] 01-04-2024 14:31-0400 SaO2% (BldA) [Mass fraction] 99 % Fransico Sharp MD Work Phone: [facility] 01-04-2024 14:31-0400 Systolic blood pressure 148 mm[Hg] Fransico Sharp MD Work Phone: [facility] 12-17-2023 13:42-0400 Body height 170.2 cm [facility] Work Phone: [facility] 12-17-2023 13:42-0400 Body mass index (BMI) [Ratio] 29.47 kg/m2 Freddie Delgado GAGE MAKER-C.O.D. CLERK Work Phone: [facility] 12-17-2023 13:42-0400 Body temperature 98.71 [degF] Freddie Delgado GAGE MAKER-C.O.D. CLERK Work Phone: [facility] 12-17-2023 13:42-0400 Body weight 85.37 kg Freddie Delgado GAGE MAKER-C.O.D. CLERK Work Phone: [facility] 12-17-2023 13:42-0400 Diastolic blood pressure 80 mm[Hg] Freddie Delgado GAGE MAKER-C.O.D. CLERK Work Phone: [facility] 12-17-2023 13:42-0400 Heart rate 86 /min Freddie Delgado APRN-C.O.D. CLERK Work Phone: [facility] 12-17-2023 13:42-0400 SaO2% (BldA) [Mass fraction] 96 % Freddie Delgado APRN-C.O.D. CLERK Work Phone: [facility] 12-17-2023 13:42-0400 Systolic blood pressure 128 mm[Hg] Freddie Delgado APRN-C.O.D. CLERK Work Phone: [facility] 11-12-2023 13:13-0500 Body mass index (BMI) [Ratio] 28.47 kg/m2 Dionne BRAN Work Phone: [facility] 11-12-2023 13:13-0500 Body weight 82.46 kg Dionne BRAN Work Phone: [facility] 11-12-2023 13:13-0500 Diastolic blood pressure 72 mm[Hg] Dionne BRAN Work Phone: [facility] 11-12-2023 13:13-0500 Systolic blood pressure 114 mm[Hg] Dionne BRAN Work Phone: [facility] 05-29-2023 13:25-0400 Body height 170.18 cm Shayla Valle Other [facility] Other 05-29-2023 13:25-0400 Body mass index (BMI) [Ratio] 28.22 kg/m2 Shayla Caseymond Other [facility] Other 05-29-2023 13:25-0400 Body temperature 97.8 [degF] Shayla Tori Other [facility] Other 05-29-2023 13:25-0400 Body weight 81.74 kg Shayla Tori Other [facility] Other 05-29-2023 13:25-0400 Diastolic blood pressure 79 mm[Hg] Shayla Tori Other [facility] Other 05-29-2023 13:25-0400 Respiratory rate 18 /min Shayla Tori Other [facility] Other 05-29-2023 13:25-0400 SaO2% (BldA) [Mass fraction] 96 % Shayla Tori Other [facility] Other 05-29-2023 13:25-0400 Systolic blood pressure 127 mm[Hg] Shayla Tori Other [facility] Other 03-19-2023 14:37-0400 Diastolic blood pressure 69 mm[Hg] DIRECTOR CAMP-C Shayla Tori Work Phone: [facility] 03-19-2023 14:37-0400 Heart rate 76 /min DIRECTOR CAMP-C Shayla Tori Work Phone: [facility] 03-19-2023 14:37-0400 Respiratory rate 16 /min DIRECTOR CAMP-C Shayla Tori Work Phone: [facility] 03-19-2023 14:37-0400 SaO2% (BldA) [Mass fraction] 96 % DIRECTOR CAMP-C Shayla Valle Work Phone: [facility] 03-19-2023 14:37-0400 Systolic blood pressure 119 mm[Hg] DIRECTOR CAMP-C Shayla Valle Work Phone: [facility] 03-19-2023 12:18-0400 Body height 170.18 cm DIRECTOR CAMP-C Shayla Valle Work Phone: [facility] 03-19-2023 12:18-0400 Body temperature 97.9 [degF] DIRECTOR CAMP-C Shayla Valle Work Phone: [facility] 03-19-2023 12:18-0400 Body weight 84.82 kg DIRECTOR CAMP-C Shayla Valle Work Phone: [facility] 02-12-2023 14:30-0400 Body height 170.18 cm Yoel Jarrett Other [facility] Other 02-12-2023 14:30-0400 Body mass index (BMI) [Ratio] 30.54 kg/m2 Yoel Kolby Other [facility] Other 02-12-2023 14:30-0400 Body weight 88.45 kg Yoel Jarrett Other [facility] Other 02-12-2023 14:30-0400 Diastolic blood pressure 80 mm[Hg] Yoel Aguileraovansara Other [facility] Other 02-12-2023 14:30-0400 Systolic blood pressure 127 mm[Hg] Yoel Aguileraovanner Other [facility] Other 02-07-2023 10:00-0400 Body height 170.18 cm Shayla Valle Other [facility] Other 02-07-2023 10:00-0400 Body mass index (BMI) [Ratio] 30.54 kg/m2 Shayla Valle Other [facility] Other 02-07-2023 10:00-0400 Body temperature 97.9 [degF] Shayla Valle Other [facility] Other 02-07-2023 10:00-0400 Body weight 88.45 kg Shayla Valle Other [facility] Other 02-07-2023 10:00-0400 Respiratory rate 18 /min Shayla Valle Other [facility] Other 02-07-2023 10:00-0400 SaO2% (BldA) [Mass fraction] 97 % Shayla Valle Other [facility] Other 05-03-2020 11:41-0400 BMI (Body Mass Index) 24.5 kg/m2 Sally Jean-Pierre [email or web address] [facility] Work Phone: 05-03-2020 11:41-0400 Body Temperature 96.3 [degF] [facility] Work Phone: 05-03-2020 11:41-0400 Body weight 70.9 kg [facility] [employer] [facility] Work Phone: 05-03-2020 11:41-0400 BP Diastolic 80 mm[Hg] [facility] Work Phone: 05-03-2020 11:41-0400 BP Systolic 120 mm[Hg] [facility] Work Phone: 05-03-2020 11:41-0400 BSA (Body Surface Area) 1.82 m2 [facility] Work Phone: 05-03-2020 11:41-0400 Height 170.18 cm [facility] Work Phone: 05-03-2020 11:41-0400 Pulse (Heart Rate) 86 /min [facility] Work Phone: 05-03-2020 11:41-0400 Pulse Oximetry 93 % [facility] Work Phone: 05-03-2020 11:41-0400 Respiratory Rate 18 /min [facility] Work Phone: 04-08-2020 08:37-0400 BMI (Body Mass Index) 24.3 kg/m2 [facility] Work Phone: 04-08-2020 08:37-0400 Body Temperature 99 [degF] [facility] Work Phone: 04-08-2020 08:37-0400 Body weight 70.4 kg [facility] Work Phone: 04-08-2020 08:37-0400 BP Diastolic 80 mm[Hg] [facility] Work Phone: 04-08-2020 08:37-0400 BP Systolic 110 mm[Hg] [facility] Work Phone: 04-08-2020 08:37-0400 BSA (Body Surface Area) 1.82 m2 [facility] Work Phone: 04-08-2020 08:37-0400 Height 170.18 cm [facility] Work Phone: 04-08-2020 08:37-0400 Pulse (Heart Rate) 82 /min [facility] Work Phone: 04-08-2020 08:37-0400 Pulse Oximetry 98 % Sally Morejon [facility] Work Phone: 04-08-2020 08:37-0400 Respiratory Rate 18 /min Sally Morejon [facility] Work Phone: 03-29-2020 09:52-0400 Body height 170.18 cm Sally Morejon CNP Work Phone: [facility] Work Phone: Comment on above: self 03-29-2020 09:52-0400 Body mass index (BMI) [Ratio] 23.5 kg/m2 Sally Morejon CNP Work Phone: [facility] Work Phone: Comment on above: self 03-29-2020 09:52-0400 Body surface area Derived from formula 1.79 m2 Sally Morejon CNP Work Phone: [facility] Work Phone: Comment on above: self 03-29-2020 09:52-0400 Body weight 68.04 kg Sally Morejon CNP Work Phone: [facility] Work Phone: Comment on above: self 10-14-2019 08:30-0500 BMI (Body Mass Index) 24.1 kg/m2 Sally Morejon [facility] Work Phone: 10-14-2019 08:30-0500 Body Temperature 98.5 [degF] Sally Morejon [facility] Work Phone: 10-14-2019 08:30-0500 Body weight 69.76 kg Sally Morejon [facility] Work Phone: 10-14-2019 08:30-0500 BP Diastolic 78 mm[Hg] Sally Morejon [facility] Work Phone: 10-14-2019 08:30-0500 BP Systolic 132 mm[Hg] Sally Morejon [facility] Work Phone: 10-14-2019 08:30-0500 BSA (Body Surface Area) 1.81 m2 Sally [facility] Work Phone: 10-14-2019 08:30-0500 Height 170.18 cm [facility] Work Phone: 10-14-2019 08:30-0500 Pulse (Heart Rate) 88 /min [facility] Work Phone: 10-14-2019 08:30-0500 Pulse Oximetry 98 % [facility] Work Phone: 10-14-2019 08:30-0500 Respiratory Rate 18 /min [facility] Work Phone: 10-14-2019 08:30-0500 SaO2% (BldA) [Mass fraction] 98 % [facility] Work Phone: [facility] Work Phone: 09-04-2019 13:52-0500 BMI (Body Mass Index) 22.9 kg/m2 [facility] Work Phone: 09-04-2019 13:52-0500 Body Temperature 98.5 [degF] [facility] Work Phone: 09-04-2019 13:52-0500 Body weight 66.23 kg [facility] Work Phone: 09-04-2019 13:52-0500 BP Diastolic 90 mm[Hg] [facility] Work Phone: 09-04-2019 13:52-0500 BP Systolic 122 mm[Hg] [facility] Work Phone: 09-04-2019 13:52-0500 BSA (Body Surface Area) 1.77 m2 [facility] Work Phone: 09-04-2019 13:52-0500 Height 170.18 cm Sally [facility] Work Phone: 09-04-2019 13:52-0500 Pulse (Heart Rate) 98 /min Sally [facility] Work Phone: 09-04-2019 13:52-0500 Pulse Oximetry 98 % Sally [facility] Work Phone: 09-04-2019 13:52-0500 Respiratory Rate 18 /min Sally [facility] Work Phone: 09-04-2019 13:52-0500 SaO2% (BldA) [Mass fraction] 98 % [facility] Work Phone: [facility] Work Phone: 08-19-2019 09:32-0500 BMI (Body Mass Index) 23.2 kg/m2 [facility] Work Phone: 08-19-2019 09:32-0500 Body Temperature 98 [degF] Sally [facility] Work Phone: 08-19-2019 09:32-0500 Body weight 67.31 kg [facility] Work Phone: 08-19-2019 09:32-0500 BP Diastolic 80 mm[Hg] [facility] Work Phone: 08-19-2019 09:32-0500 BP Systolic 120 mm[Hg] [facility] Work Phone: 08-19-2019 09:32-0500 BSA (Body Surface Area) 1.78 m2 [facility] Work Phone: 08-19-2019 09:32-0500 Height 170.18 cm [facility] Work Phone: 08-19-2019 09:32-0500 Pulse (Heart Rate) 90 /min [facility] Work Phone: 08-19-2019 09:32-0500 Pulse Oximetry 98 % Sally [facility] Work Phone: 08-19-2019 09:32-0500 Respiratory Rate 18 /min Sally [facility] Work Phone: 08-19-2019 09:32-0500 SaO2% (BldA) [Mass fraction] 98 % [facility] Work Phone: [facility] Work Phone: 07-28-2019 11:31-0400 BMI (Body Mass Index) 22.7 kg/m2 Sally [facility] Work Phone: 07-28-2019 11:31-0400 Body Temperature 98.8 [degF] Sally [facility] Work Phone: 07-28-2019 11:31-0400 Body weight 65.77 kg [facility] Work Phone: 07-28-2019 11:31-0400 BP Diastolic 84 mm[Hg] [facility] Work Phone: 07-28-2019 11:31-0400 BP Systolic 132 mm[Hg] [facility] Work Phone: 07-28-2019 11:31-0400 BSA (Body Surface Area) 1.76 m2 Sally [facility] Work Phone: 07-28-2019 11:31-0400 Height 170.18 cm Sally [facility] Work Phone: 07-28-2019 11:31-0400 Pulse (Heart Rate) 65 /min [facility] Work Phone: 07-28-2019 11:31-0400 Pulse Oximetry 97 % Sally [facility] Work Phone: 07-28-2019 11:31-0400 Respiratory Rate 18 /min [facility] Work Phone: 07-28-2019 11:31-0400 SaO2% (BldA) [Mass fraction] 97 % Sally Morejon C.O.D. 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 Fax sent to request path for a reread Included fed ex label. [facility] 03-11-2024 Miscellaneous Notes Formattin g of this note might be different from the original. Fax sent to request path for a reread Included fed ex label. documented in this encounter [facility] 03-06-2024 Evaluation note Diagnosis Skin cancer- Primary Unspecified malignant neoplasm of skin, site unspecified * Assessment & Plan Note - Ana Peoples MD - 03/06/2024 8:05 AM EDT Associated Problem(s): Skin cancer 03/06/[address] of neck and chest. I emailed with her oncologist via [employer]. He is ok with her going to39 weeks. I spoke with her OBGYN physician, Dr. Castaneda, who is in agreement. Pt will deliver at [facility]. Pt tells me induction set up for 38 5/7 which is in the gestational age range I discussed with him. Plan is to have Placenta couriered to [facility] for path as melanoma can spread to [...] Ana Peoples MD documented in this encounter [facility]06-06-2024 NoteHNO ID: [id number] Author: ANA PEOPLES MD Service: ? Author Type: Physician Type: Progress Notes Filed: 03/06/2024 08:08 Note Text: [facility] STAFF Video visit follow up I have communicated my name and active licensure. The patient's identity and physical location were verified at the time of this visit. Either the patient or their legal patient support representative has been informed of the risks [...] - Primary Current Assessment AND Plan 03/06/2024 [facility] Pt had CT of neck and chest. I emailed with her oncologist via [employer]. He is ok with her going to 39 weeks. I spoke with her OBGYN physician, Dr. Castaneda, who is in agreement. Pt will deliver at [facility]. Pt tells me induction set up [...] Peoples MD - 03/06/2024 7:58 AM EDT [facility] STAFF Video visit follow up I have communicated my name and active licensure. The patient's identity and physical location wereverified at the time of this visit. Either the patient or their legal patient support representative has been informed of the risks and benefits of -- and alternatives to -- treatment through a remote evaluation andconsents to proceed with the evaluation remotely. Pt is a 33 year old at 36w0d who has the following issues. Please see recommendations in problem based charting. Problem List Items Addressed This Visit Oncology Skin cancer - Primary Current Assessment & Plan 03/06/2024 [facility] Pt had CT of neck and chest. I emailed with her oncologist via [employer]. He is ok with her going to39 weeks. I spoke with her OBGYN physician, Dr. Castaneda, who is in agreement. Pt will deliver at [facility]. Pt tells me induction set up [...] MD Ana Britton MD [facility] Telephone encounter Note * Telephone Encounter - Daisy Murray RN - 03/05/2024 9:23 AM EDT Pt updated Daisy Murray RN [facility]06-05-2024 Miscellaneous Notes* Telephone Encounter - Daisy Murray [...] advise Daisy Murray RN documented in this encounterThe [facility]06[facility] Telephone encounter Note * Telephone Encounter - Usman Goldberg MD - 03/05/2024 8:59 AM EDT I think I already communicated that with her - CT's were negative for any metastatic disease. [facility] Work Phone: [phone] Telephone encounter Note* Telephone Encounter - Daisy Murray RN - 03/04/2024 3:57 PM EDT Pt requesting CT results Louisa: Please review and advise Daisy Murray RN [facility]06-03-2024 Telephone encounter Note* Telephone Encounter - Surjit [...] post . Instructions provided to reschedule BIBI. [facility]06-03-2024 Miscellaneous Notes* Telephone Encounter - Surjit Griggs [...] her back? Thank you documented in this encounterThe [facility]06-[facility] Telephone encounter Note * Telephone Encounter - Ana Peoples MD - 03/03/2024 11:03 AM EDT 03/03/2024 MFM Message left on pts phone to look at her my chart messages. Ana Peoples MD [facility]06-03-2024 Miscellaneous Notes* Telephone Encounter - Ana Peoples MD - 03/03/2024 11:03 AM EDT 03/03/2024 MFM Message left on pts phone to look at her my chart messages. Ana Peoples MD documented in this encounterThe [facility]05-31-[facility]24 Telephone encounter Note * Telephone Encounter - Ward Orta - 02/29/2024 3:25 PM EDT Pt calling in to cancel surgery on 03/14 and pre op appointment. Can you call her back? Thank you [facility]05-28-2024 Telephone encounter Note* Telephone Encounter - Usman Goldberg MD - 02/26/2024 2:58 PM EDT She texted me - CT's look good. Will need a chest ct later. [facility] Work Phone: [phone] Miscellaneous Notes* Telephone Encounter - Usman Goldberg [...] advise Daisy Murray RN documented in this encounterThe [facility]05-28-2024 Telephone encounter Note * Telephone Encounter - Sylvia Alcala HUC - 02/26/2024 12:43 PM EDT Patient calling. Doesn't know how to proceed. States her oncologist is out of town and no one can read the results. States she is 35 weeks . Please call patient back to discuss. [facility]05-28-2024 Telephone encounter Note* Telephone Encounter - Daisy Murray RN - 02/26/2024 12:21 PM EDT Pt calling for CT results. She is aware Dr Deshpande is out of office this week and will be in touch withhis response Sunday. Louisa: Please advise Daisy Murray RN [facility]05-24-2024 NoteHNO ID: [id number] Author: PACHECO BOWEN RN Service: ? Author [...] Mckeon DATE: February 22, 2024 TIME: 10:46 [facility]05-24-2024 NoteHNO ID: [id number] Author: BRANDON RDZ RT(R) Service: ? Author [...] PATIENT PRESENTS WITH AN IMPLANTABLE OR ATTACHED DEVULCANIZER LOADER: No RADIOLOGY DEPARTMENT: CT; Exam(s) Completed: Chest and Neck PERIPHERAL IV DATA: Site assessment: Clean,Dry and Intact, Site disposition Discontinued SIGNED BY: RT Dante(R) February 22, 2024 11:10 [facility]04-26-2024 Telephone encounter Note* Telephone Encounter - Cynthia Petty - 01/25/2024 1:47 PM EDT Pt is not able to make the appt on 02/11; aloso wondering if this should be on March 14 instead? Thanks [facility]04-26-2024 Miscellaneous Notes* Telephone Encounter - Cynthia Petty - 01/25/2024 1:47 PM EDT Pt is not able to make the appt on 02/11; amina wondering if this should be on March 14 instead? Thanks documented in this encounterThe [facility]04-[facility]24 Telephone encounter Note * Telephone Encounter - Angela Hilario - 01/24/2024 12:44 PM EDT Vy is scheduled for her CT scan on Sunday, 02/21 at 11am. She is scheduled for her labwork still, on Sunday, 02/19. I spoke with Vy and she is in agreement. Angela Arthur [facility]04-25-2024 Miscellaneous Notes* Telephone Encounter - Angela Hilario [...] to schedule CT scans. Brandon Churchill, RN * Telephone Encounter - Usman Goldberg [...] note were not included. documented in this encounterThe [facility]04-25-2024 Telephone encounter Note * Telephone Encounter - Brandon Churchill RN - 01/24/2024 12:23 PM EDT Clerical: Please call pt to schedule CT scans. Brandon Churchill RN [facility] Work Phone: [phone]) 838-372204-25-2024 Telephone encounter Note* Telephone Encounter - Usman Goldberg MD - 01/24/2024 12:18 PM EDT It's ok to move up - but I'd want to know closer to delivery (33 weeks - 34 weeks) because then there won't be a need for additional scans later. Labs are to be done prior to CT. [facility]04-25-2024 Telephone encounter Note* Telephone Encounter - Brandon [...] CT ahead of 02/19? Brandon Churchill RN [facility]04-25-2024 Telephone encounter Note* Telephone Encounter - Daisy [...] Vy Deshpande: Please advise Daisy Murray RN [facility]04-24-2024 Telephone encounter Note* Telephone Encounter - Usman Goldberg MD - 01/23/2024 4:24 PM EDT We won's be doing scans for 4 weeks.... that works out to be around 33 weeks gestation Does that sound right? (February 19) Thanks, louisa. [facility]04-24-2024 Telephone encounter Note* Telephone Encounter - Brandon Churchill RN - 01/23/2024 3:54 PM EDT Pt calls regarding CT scans. Please place orders. Thanks! Brandon Churchill RN [facility]04-23-2024 Telephone encounter Note* Telephone Encounter - Ana [...] known. All questions answered. Ana Peoples MD [facility]04-23-2024 Miscellaneous Notes* Telephone Encounter - Ana Peoples MD - 01/22/2024 3:40 PM EDT 01/22/2024 [facility] Pt called and identified ~ [...] answered. Ana Peoples MD documented in this encounterThe [facility]04-23-2024 Telephone encounter Note * Telephone Encounter - Brandon Churchill RN - 01/22/2024 1:02 PM EDT Images from the original note were not included. [facility]04-23-2024 NoteHNO ID: [id number] Author: ANA PEOPLES MD Service: ? Author [...] Fransico Sharp MD Pts general OBGYN in [place], [place]: Eliazar Castaneda MD The plan is for wide local excision with reconstruction, which may take multiple trips to the OR. The OR plan involves radioactive tracer for sentinal node She has not been imaged for staging. She comes to [facility] today for discussion on when [...] previa antepartum in second trimester Overview 01/21/2024 [facility] Previa resolved on US today. Placenta > 2cm away from the cervix. Ana Peoples MD Other Visit Diagnoses Malignant melanoma of skin (HCC) I spent 70 minutes in the visit, with more than 50% of the total ueri-jw-kazs time of the visit in counseling / [...] Skin cancer Current Assessment & Plan 01/22/2024 [facility] Pt is a 33 year old 29w4d with a new diagnosis of malignant melanoma located above the left upper lip. Oncologist Usman Goldberg MD Surgeon Fransico Sharp MD Pts general OBGYN in [place], [place]: Eliazar Castaneda MD The plan is for wide local excision with reconstruction, which may take multiple trips to the OR. The OR plan involves radioactive tracer for sentinal node She has not been imaged for staging. She comes to [facility] today for discussion on when [...] with more than 50% of the total grqr-fi-kdnx time of the visit in counseling / coordination of care. I shared my findings and recommendations via the shared medical record or via the mail to the referring provider. Ana Peoples MD documented in this encounterThe [facility]04-19-2024 Miscellaneous Notes* Telephone Encounter - Jose L [...] Jose L Crowley MA documented in this encounterThe [facility]04-11-2024 Miscellaneous Notes* Telephone Encounter - Rolo Parada - 01/10/2024 9:18 AM EDT [facility] msg was sent to patient asking for call back to this coordinator to schedule MFM consultation. documented in this encounterThe [facility]04-10-2024 Miscellaneous Notes* Telephone Encounter - Surjit Griggs RN - 01/09/2024 12:35 PM EDT Reached out to patient. Instructions provided to see a maternal medicine specialist within the [facility] per Dr. Sharp. This nurse explained that the multidisciplinary team will need frequent communications in arranging the plan of care, and staying in one healthcare system will help facilitate planning. * Telephone Encounter - Fernanda Michael - 01/09/2024 9:52 AM EDT Patient called that she is seeing Maternal Med, in her area and was questioning does she needto see one at the [facility]? She is asking for a call.. she is very nervous documented in this encounterThe [facility] System04-05-2024 Instructions* Patient Instructions* Valerie Bedoya RN - 01/04/2024 3:21 PM EDT PLAN: - Photos taken and uploaded to chart today via [employer] - Pathology re-read to be obtained - Surgical plan is for resection of left upper lip melanoma, reconstruction with local tissue rearrangement, and a sentinel lymph node biopsy - Surgery at [facility] or [facility]. Likely plan is to wait for surgical intervention until after 36 weeks . - Pre op clearance (PACC) prior to surgery for clearance to receive general anesthesia; must be done at a [facility] location - Nuclear medicine appointment at [facility] the morning of surgery - Post op 7-10 days with Tana Cervantes APRN.C.O.D. CLERK - Consult placed to Maternal Medicine (MFM) for risk assessment and guidance: call [phone] to schedule. - Recommend regular dermatology follow-up for FBSE - Q3 months for 2 years, Q6 months for 5 years and Q1 year for the rest of his/her life Our medical surgical tech will contact you to set up all surgical appointments: pre op (PACC) prior tosurgery, nuclear medicine the morning of surgery, surgery itself, and a post op visit about 7-10 days after surgery with the team's nurse practitioner, Tana. Follow up prior to surgical date: around 36-37 weeks or after delivery. Please notify us of [facility]'s recommendations. Please MyChart message or call the office with questions/concerns. documented in this encounterThe [facility] System03-29-2024 NoteHNO ID: [id number] Author: FRANSICO SHARP MD Service: ? Author Type: Physician Type: Progress Notes Filed: 01/06/2024 09:42 Note Text: DATE: January 03, 2024 CC: New Melanoma Patient Referring Physician: Margarita Kim MD at [facility] in [place] HPI: Vy Mckeon is a 33 year [...] 400 mg by mouth. omeprazole magnesium (ACID LINE OUT MAN, OMEPRAZOLE, ORAL) Take by mouth as directed. [...] left upper lip with a variegated pattern, sales account manager in the middle with a number [...] taken and uploaded to chart today via [employer] - Pathology re-read to be obtained - Surgical plan is for resection of left upper lip melanoma, reconstruction with local tissue rearrangement, and a sentinel lymph node biopsy - Surgery at [facility] or . Likely plan is to wait for surgical intervention until after 36 weeks . - PACC prior to surgery - Nuclear medicine appointment at [facility] the (more content not included)... [facility]03-29-2024 History of Present illness Narrative* Fransico Sharp MD - 12/28/2023 8:54 AM EDT Images from the original note were not included. DATE: January 03, 2024 CC: New Melanoma Patient Referring Physician: Margarita Kim MD at [facility] HPI: Vy Mckeon is a 33 year [...] 400 mg by mouth. omeprazole magnesium (ACID LINE OUT MAN, OMEPRAZOLE, ORAL) Take by mouth as directed. [...] left upper lip with a variegated pattern, sales account manager in the middle with a number [...] taken and uploaded to chart today via [employer] - Pathology re-read to be obtained - Surgical plan is for resection of left upper lip melanoma, reconstruction with local tissue rearrangement, and a sentinel lymph node biopsy - Surgery at [facility] or . Likely plan is to wait for surgical intervention until after 36 weeks . - PACC prior to surgery - Nuclear medicine appointment at [facility] the morning of surgery - Post op 7-10 days with Tana Cervantes APRN.C.O.D. CLERK - Consult placed to [facility] for risk assessment and guidance: call [phone] to schedule. - Recommend regular dermatology follow-up for FBSE - Q3 months for 2 years, Q6 months for 5 years and Q1 year for the rest of his/her life - Patient follows with OBGYN Dr. Castaneda in [place], [place] Follow up after 36 weeks of and with [facility]'s recommendations. The patient is seen and examined by Dr. Sharp and the following reflects his service. Scribed by Valerie Bedoya ANIMAL CARETAKER SUPERVISOR NOTE: I agree with the Chief Complaint, ROS, and Past Histories independently gathered by the clinical net application support specialist and the remaining scribed note accurately describes [...] her we would coordinate this with her stamping operator team here at the [facility]. While I believe this jonathan [...] consultation. Fransico Sharp MD documented in this encounterThe [facility]03-27-2024 NoteHNO ID: [id number] Author: USMAN GOLDBERG MD Service: ? Author Type: Physician Type: Progress Notes Filed: 12/27/2023 12:46 Note Text: NAME: Vy Mckeon [facility] NO.: [id number] DATE OF SERVICE: December 26, 2023 (Krystal) [...] 400 mg by mouth. omeprazole magnesium (ACID LINE OUT MAN, OMEPRAZOLE, ORAL) Take by mouth as directed. PNV no.95/ferrous fum/folic ac ( ORAL) Take by mouth as directed. LABORATORY VALUES: WBC (k/uL) Date Value 12/26/2023 9.72 RBC (m/uL) Date Value 12/26/2023 3.99 Hemoglob (more content not included)...[facility]03-18-2024 History of Present illness Narrative* Freddie Delgado, GAGE MAKER-C.O.D. CLERK - 12/17/2023 1:45 PM EDT Subjective Patient ID: Vy Mckeon is a 33 y.o. female. FRANDY Mcclellan presents to the office for follow up.She was last seen with continued depression and anxietyand had stopped taking Zoloft, hydroxyzine and trazodone because she was found to be . She is 24 weeks along in her with Placenta previa. Last HYDROGEN OPERATOR visit 12/11/23 with . carrier screening result [...] not have morning sickness. Lab work from [facility] 12/10 pre- visit RBC-3.72, HGB 11.2, [...] normal. Behavior: Behavior normal. Assessment/Plan Follow-up with HYDROGEN OPERATOR for follow-up on hematology result showing minimally [...] for sleep. Note completed with assistance of DIRECTOR CAMP student. GIOVANNI Darling 12/17/23 1538 documented in this encounterAs[facility]03-18-[facility]24 Miscellaneous Notes* Medical Student - [...] the legal medical record. documented in this encounterAshtabula [facility]03-18-2024 Progress note* Medical Student - [...] a part of the legal medical record. [facility]03[facility] History of Present illness Narrative* TAMMY Duran - 12/07/2023 12:16 PM ESTSummary: FOB carrier screening results Called yV to let her know that FOB's carrier screening result for GJB2- related disorders is negative. The is low risk to be affected with this condition. Vy understood and had no additional questions. I encouraged her to reach out if anything comes up. documented in this encounterAshtabula County Medical Center02-20-2024 History of Present illness Narrative* Fidencio Rojas MD - 11/20/2023 9:30 AM EST Video Visit via Real-time Synchronous Audiovisual Provider Location: [facility]- MEDICINE AT [address], [facility] [address] [place] [address] Patient Location: Other Patient Location Case Reviewer: None Video Visit Consent Statement: I discussed [...] that there are some limitations compared to sxha-sz-vyfy evaluations. We elected to proceed. REASON FOR [...] for nausea or vomiting., Disp: , Rfl: [id number] 29-1-400 mg combo pack,tablet & capDR, Take [...] patient is in complete care of her it trainee. Patient does have ultrasound and office visit scheduled with us. Thank you for allowing me to participate in the care of Vy Mckeon. If there any questions please do not hesitate to contact us. Fidencio Rojas MD Maternal- Medicine [facility] [address] 1st Floor [place] [id number] [facility], the CDC, and other organizations representing maternal and public health professionals recommend that , , and lactating people and those considering receive the COVID-19 vaccination. Vaccination is the best method to reduce maternal and complications of SARS-CoV-2 infection. This document was created with [employer] technology. Though I make every effort to review the dictation as it is transcribed, on occasion the spoken word can be misinterpreted by the technology leading to inappropriate words, phrases, or sentences. This note is addressed to the requesting provider as a consultation for clinical guidance. Specificmedical abbreviations are occasionally used and those are generally approved by the [place]?Board of?Obstetrics and?Gynecology?as well as?Justyna s abbreviations. The above plan of care was based solely on the diagnoses for which a consultation was requested. ?More frequent testing may be indicated based on her other medical/obstetrical conditions. The management of other or medical conditions is beyond the scope of requested consultation and will c ontinue to be followed by the primary it trainee or primary care provider. Note to patient: [...] opinion of the practitioner. 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) ([facility]) 02/13/2023 Mild intermittent asthma without complication ([facility]) 02/13/2023 Asthma exacerbation, mild ([facility]) 02/13/2023 Mild persistent asthma with (acute) exacerbation ([facility]) 02/19/2023 Second trimester 10/08/2023 AMA (advanced maternal age) primigravida 35+, unspecified trimester 10/08/2023 Resolved Ambulatory Problems Diagnosis Date Noted No Resolved Ambulatory Problems Past Medical History: Diagnosis Date ADHD (attention deficit hyperactivity disorder) ([facility]) Allergies Anxiety Asthma ([facility]) Bipolar disorder ([facility]) Family History Problem Relation Name Age of [...] obtained without difficulty and patient was given [facility] order to have obtained. Follow Up: Patient is to return to our office in 4 weeks for routine OB appointment Documented by Dana Farris LPN on behalf of: SHNAT España documented in this encounterReynolds County General Memorial [id number] History of Present illness Narrative* TAMMY Duran [...] additional questions or concerns. documented in this encounterAshtabula County Medical Center01-29-2024 History of Present illness Narrative* [...] be completed between 11/10-11/17. documented in this encounterAshtabula County Medical Center01-22-2024 History of Present illness Narrative* TAMMY Duran - 10/22/2023 11:00 AM ESTSummary: [facility] Genetic Counseling Note Provider at different site/location than patient. I confirmed the patient is located in the [facility]. Vy Mckeon is currently at home and provider at remote site. The patient consented to be treated electronically via this form of telemedicine. This visit was not related to an office visit or procedure in the past 7 days, and in-office follow up is not recommended in the next 24 hours. Video Visit via Real-time Synchronous Audiovisual Provider Location: [facility]- MEDICINE AT [address] [address] Patient Location: Patient's home Patient Location Case Reviewer: None Video Visit Consent Statement: I discussed [...] that there are some limitations compared to kejx-il-jjwf evaluations. We elected to proceed. Name: Vy Mckeon : 1990 Date of Visit: 10/22/2023 Email: [email or web address] Preferred contact method: email Partner's Name: Bogdan Age: 32 Requesting Physician: Eliazar Castaneda DO [address] [place] [address] , [place] [address] Reason for Referral: Vy Mckeon is a 33 y.o. female who presented to [facility] Telemedicine Clinic. Vy is here [...] Screen: YES - low risk Performing lab: [facility] (UNITY Screen) Conditions screened: Trisomy 13, Trisomy [...] age I personally spent 25 minutes in rmya-xk-acrk time with this patient. I provided genetic [...] call or email their genetic counselor at [phone] or if any additional questions or concerns should arise. TAMMY Soto Licensed, Certified Genetic Counselor documented in this encounterAshtabula County Medical Center08-29-2023 Evaluation note* Encounter Date Diagnosis Assessment Notes Treatment Notes Treatment Clinical Notes May, Thrush (ICD-10 - B37.0) Continue home medications as prescribed. Use the nystatin mouthwash as prescribed, swish and swallow. Follow-up with your family physician if no improvement in 2 to 3 days [facility] Other 06-19-2023 [facility]Select [facility] Evaluation note* Encounter Date Diagnosis [...] educated on the importance of PPI optimization [facility] Other 05-10-2023 Evaluation note* Encounter Date Diagnosis [...] January, Other Contusion mater ial was printed [facility] Other 08-23-2022 NoteOPERATIVE NOTE OPERATION DATE: 05/23/2022 PROCEDURE: Suction D AND C. PREOPERATIVE DIAGNOSIS: Missed . POSTOPERATIVE DIAGNOSIS: Missed . ANESTHESIA: General. SURGEON: Eliazar Castaneda D.O. INSURANCE POLICY ISSUE CLERK: None. FINDING: Products of conception. SPECIMEN: Products [...] products of conception were removed using an 8-Sami suction curette. Excellent hemostasis was noted. The patient tolerated the procedure well. Sponge, lap, and needle counts were correct x 2. All instruments were then removed from the patient's vagina. The patient was taken to the Recovery Room in stable condition. ??[facility] Includes: Assessments for all patient encounters Findings Encounter Date Depressive disorder [facility] with Emilee Short [facility] 03/29/2020 Generalized anxiety disorder [facility] with Emilee Short [facility] 03/29/2020 Dysthymic disorder Established Patie nt with Bobbi Colon [facility] 10/14/2019 Generalized anxiety disorder Establis hed Patient with Bobbi Colon [facility] 10/14/2019 Z68.24 - Body mass index (BM I) 24.0-24.9 adult Medical Established Patient with Candace Grossman C.O.D. CLERK 10/14/2019 F34.1 - Dysthymic disorder Establishe d Patient with Bobbi Colon [facility] 09/04/2019 Generalized anxiety disorder Establis hed Patient with Bobbi Colon [facility] 09/04/2019 Body mass index Medical Established Patient with Candace Grossman C.O.D. CLERK 09/04/2019 Diabetes Risk Test Score was 0 score 09/04/2019 Medical Established Patient with Candace Grossman C.O.D. CLERK 09/04/2019 Body mass index Nurse Visit with Candace ECHEVARRIA P 08/19/2019 Diabetes Risk Test Score was 0 score 08/19/2019 Nurse Visit with Candace Grossman CNP 08/19/2019 Generalized anxiety disorder Establis hed Patient with Bobbi Colon [facility] 07/28/2019 Severe recurrent major depre 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 features Established Patient with Bobbi Colon [facility] 07/28/2019 AUDIT alcohol use disorders identification test was six 07/28/2019 Medical New Patient with Candace Grossman C.O.D. CLERK 07/28/2019 Diabetes Risk Test Score was 0 score 07/28/2019 Medical New Patient with Candace Grossman C.O.D. CLERK 07/28/2019 ZAN-7 score was 21 07/28/2019 Medical Ne w Patient with Candace Grossman C.O.D. CLERK 07/28/2019 PHQ-9: total score was 21 07/28/2019 Med ical New Patient with Candace Grossman C.O.D. CLERK 07/28/2019 Z68.22 - Body mass index (BM I) 22.0-22.9 adult Medical New Patient with Candace Grossman C.O.D. CLERK 07/28/2019 [facility] Work Phone: Evaluation noteNo assessment information available [facility] Work Phone: Evaluation note* Diagnosis Onset Date Resolution Status GERD (gastroesophageal reflux disease) acute [facility] Work Phone: Evaluation note* Diagnosis Multigravida [...] headache, not intractable documented in this encounter [facility]* Diagnosis Multigravida of advanced maternal [...] in second trimester [facility]* Diagnosis Nausea and vomiting, unspecified vomiting type- Primary Psychophysiological insomnia Persistent disorder of initiating or maintaining sleep documented [facility] encounter [facility]* Diagnosis Malignant melanoma of skin (HCC)- Primary Melanoma of skin, site unspecified [facility]* Diagnosis Encounter for anatomic survey Encounter for anatomic survey- Primary documented in this encounter [facility]* Diagnosis Encounter for anatomic survey documented in this encounter [facility]* Diagnosis Malignant melanoma of skin (HCC) Melanoma of skin, site unspecified Skin cancer Unspecified malignant neoplasm of skin, site unspecified Placenta previa antepartum in second trimester * Assessment & Plan Note - Ana Peoples MD - 01/21/2024 1:34 PM EDT Associated Problem(s): Skin cancer 01/22/2024 [facility] Pt is a 33 year old 29w4d with a new diagnosis of malignant melanoma located above the left upper lip. Oncologist Usman Goldberg MD Surgeon Fransico Sharp MD Pts general OBGYN in [place], [place]: Eliazar Castaneda MD The plan is for wide local excision with reconstruction, which may take multiple trips to the OR. The OR plan involves radioactive tracer for sentinal node She has not been imaged for staging. She comes to [facility] today for discussion on when [...] node detection. The tracer they used on [facility] is a possibility during should we [...] pt can deliver [facility] if she goesat term and the CT does not show any spread.. We would need to find a way to get the placenta to [facility] for examination. I have left a message with Dr. Castaneda's office to call me back so that we can confirm ability to get placenta to [facility] for pathology should she deliver at [place]. Ana Peoples MD documented in this encounter [facility]* Diagnosis Malignant melanoma of skin (HCC)- Primary Melanoma of skin, site unspecified Malignant melanoma of skin (HCC) Melanoma of skin, site unspecified documented in this encounter [facility] general Narrative - Reported* Type Description Date Medical History anxiety Medical History depression Medical History ADHD Surgical History D&C [facility] Other History general Narrative - Reported* Type Description Date Medical History anxiety Medical History depression Medical History ADHD Surgical History D&C 2021 [facility] Other History of Present illness Narrative History of Present Illness not supported for this document type No History of Present Illness [facility] Work Phone: Hospital Discharge [...] if you have any problems. -Office number [phone] Medical [facility] Work Phone: Instructions Instructions not supported for this document type No Instructions [facility] Work Phone: InstructionsNot on filedocumented in this encounter [employer] [facility] SystemInstructionsNot on filedocumented in this encounter [facility] SystemInstructionsNot on filedocumented in this encounter [facility] SystemPatient problem outcome Narrative Includes: Evaluations & Outcomes for active Goals No Outcomes [facility] Work Phone: reason for referral (narrative)No Reason for Referral [facility] Work Phone: reason for referral (narrative)* Diagnostic Procedure Only (Routine) - Closed Specialty Diagnoses / Procedures Referred By Kalina ghotra Referred To Contact [facility] Diagnoses Encounter for anatomic survey Procedures OBSTETRIC ULTRASOUND WHI US PREG UTERUS AFTER 1ST [place] [address] [place] [address] [facility] [address] [place] [address] Referral ID Status Reason Start Date Expiration Date V isits Requested Visits Authorized [id number] Closed Auto-Generate d Referral 01/21/2024 01/20/2025 1 1 [facility] for visit NarrativeUNCONTROLLED GERD//REFERRAL FROM [employer] Other Reason for visit Narrative* Consultation (Routine) - Pending Review Specialty Diagnoses / Procedures Referred By Contac t Referred To Contact Maternal and Medicine Diagnoses Multigravida of advanced maternal age in second trimester Eliazar Castaneda, DO [address] , [place] [address] [facility] Maternal Med [address] [place] [address] Referral ID Status Reason Start Date Expiration Date Visits Requested Visits Authorized [id number] Pending Review Specialty Services Required 10/10/2023 10/09/2024 1 1 [facility] for visit Narrative* Diagnostic Procedure Only (Routine) - Closed Specialty Diagnoses / Procedures Referred By Contac t Referred To Contact [facility] Diagnoses Encounter for anatomic survey Procedures OBSTETRIC ULTRASOUND WHI US PREG UTERUS AFTER 1ST [place] [address] [place] [address] [facility] [address] [place] [address] Referral ID Status Reason Start Date Expiration Date V isits Requested Visits Authorized [id number] Closed Auto-Generate d Referral 01/21/2024 01/20/2025 1 1 [facility] systems Narrative - Reported Review of [...] FoundDocuments on File Type Date Recorded Patient Spa Manager/Esthetician Expl anation Advance Directives and Living Will Power of Equipment Washer Advance Directive Response Recorded Date/ Time Advance Directives No February 07 3 3:12pm Reason for Referral Specialty Diagnoses / Procedures Referred By Contac t Referred To Contact Maternal and Medicine Diagnoses Placenta previa antepartum in second trimester Multigravida of advanced maternal age in second trimester Procedures [facility] with or without consult Fidencio Rojas MD [address] [place] [address] [facility] Maternal Med [address] [place] [address] Referral ID Status Reason Start Date Expiration Date V isits Requested Visits Authorized [id number] Pending Review 11/20/2023 11/19/2024 1 1 Specialty Diagnoses / Procedures Referred By Contac t Referred To Contact Diagnoses Malignant melanoma of skin (HCC) Procedures REFER TO PACC - PRE ANESTHESIA CONSULTATION CLINIC OFFICE/OUTPATIENT [facility] 60 MINUTES Fransico Sharp MD [address] [place] [address] Referral ID Status Reason Start Date Expiration Date Visits Requested Visits Authorized [id number] Authorized PCP Requested Referral 01/04/2024 01/03/2025 1 1 Specialty Diagnoses / Procedures Referred By Contac t Referred To Contact Diagnoses Malignant melanoma of skin (HCC) Procedures CONSULT TO MATERNAL MEDI OFFICE/OUTPATIENT [facility] 60 MINUTES Fransico Sharp MD [address] [place] [address] Referral ID Status Reason Start Date Expiration Date Visits Requested Visits Authorized [id number] Authorized PCP Requested Referral Auto-Generate d Referral 01/04/2024 01/03/2025 1 1 Specialty Diagnoses / Procedures Referred By Contac t Referred To Contact CT IMAGING Diagnoses Malignant melanoma of skin (HCC) Procedures CT CHEST W IVCON DIAGNOSTIC COMPUTED TOMOGRAPHY THORAX W/CONTRAST Usman Goldberg MD [address] [place] [address] [place] [address] Referral ID Status Reason Start Date Expiration Date Visits Requested Visits Authorized [id number] Authorized Auto-Generat ed Referral 02/20/2024 02/21/2025 1 1 Specialty Diagnoses / Procedures Referred By Contac t Referred To Contact CT IMAGING Diagnoses Malignant melanoma of skin (HCC) Procedures CT NECK SOFT TISSUE W IVCON CT SOFT TISSUE NECK W/CONTRAST MATERIAL Usman Goldberg MD [address] [place] [address] [place] [address] Referral ID Status Reason Start Date Expiration Date Visits Requested Visits Authorized [id number] Authorized Auto-Generat ed Referral 02/20/2024 02/21/2025 1 1 Assessments Findings Encounter Date Generalized anxiety disorder BH Establis hed Patient with Bobbileif Colon [facility] 07/28/2019 Severe recurrent major depre 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 features BH Established Patient with Bobbi Colon [facility] 07/28/2019 AUDIT alcohol use disorders identification test was six 07/28/2019 Medical New Patient with Candace Grossman [facility] 07/28/2019 Diabetes Risk Test Score was 0 score 07/28/2019 Medical New Patient with Candace Grossman [facility] 07/28/2019 ZAN-7 score was 21 07/28/2019 Medical Ne w Patient with Candace Grossman [facility] 07/28/2019 PHQ-9: total score was 21 07/28/2019 Med ical New Patient with Candace Houstonen [facility] 07/28/2019 Z68.22 - Body mass index (BM I) 22.0-22.9 adult Medical New Patient with Candace Grossman [facility] 07/28/2019 Findings Encounter Date F34.1 - Dysthymic disorder BH Establishe d Patient with Bobbi Colon [facility] 09/04/2019 Generalized anxiety disorder BH Establis hed Patient with Bobbi Colon [facility] 09/04/2019 Body mass index Medical Established Patient with Candace Grossman [facility] 09/04/2019 Diabetes Risk Test Score was 0 score 09/04/2019 Medical Established Patient with Cadnace Grossman [facility] 09/04/2019 Body mass index Nurse Visit with Candace Grossman P 08/19/2019 Diabetes Risk Test Score was 0 score 08/19/2019 Nurse Visit with Candace Grossman [facility] 08/19/2019 Generalized anxiety disorder BH Establis hed Patient with Bobbi Colon [facility] 07/28/2019 Severe recurrent major depre 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 features BH Established Patient with Bobbi Colon [facility] 07/28/2019 AUDIT alcohol use disorders identification test was six 07/28/2019 Medical New Patient with Candace Grossman [facility] 07/28/2019 Diabetes Risk Test Score was 0 score 07/28/2019 Medical New Patient with Candace Grossman [facility] 07/28/2019 ZAN-7 score was 21 07/28/2019 Medical Ne w Patient with Candace Grossman [facility] 07/28/2019 PHQ-9: total score was 21 07/28/2019 Med ical New Patient with Candace Grossman [facility] 07/28/2019 Z68.22 - Body mass index (BM I) 22.0-22.9 adult Medical New Patient with Candace Grossman [facility] 07/28/2019 Findings Encounter Date Dysthymic disorder BH Established Patie nt with Bobbi Colon [facility] 10/14/2019 Generalized anxiety disorder BH Establis hed Patient with Bobbi Colon [facility] 10/14/2019 Z68.24 - Body mass index (BM I) 24.0-24.9 adult Medical Established Patient with Candace Grossman [facility] 10/14/2019 F34.1 - Dysthymic disorder BH Establishe d Patient with Bobbi Colon [facility] 09/04/2019 Generalized anxiety disorder BH Establis hed Patient with Bobbi Colon [facility] 09/04/2019 Body mass index Medical Established Patient with Candace Grossman [facility] 09/04/2019 Diabetes Risk Test Score was 0 score 09/04/2019 Medical Established Patient with Candace Grossman [facility] 09/04/2019 Body mass index Nurse Visit with Candace Grossman P 08/19/2019 Diabetes Risk Test Score was 0 score 08/19/2019 Nurse Visit with Candace Grossman [facility] 08/19/2019 Generalized anxiety disorder BH Establis hed Patient with Bobbi Colon [facility] 07/28/2019 Severe recurrent major depre 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 features BH Established Patient with Bobbi Colon [facility] 07/28/2019 AUDIT alcohol use disorders identification test was six 07/28/2019 Medical New Patient with Candace Dianelys [facility] 07/28/2019 Diabetes Risk Test Score was 0 score 07/28/2019 Medical New Patient with Candace Dianelys [facility] 07/28/2019 ZAN-7 score was 21 07/28/2019 Medical Ne w Patient with Candace Dianelys [facility] 07/28/2019 PHQ-9: total score was 21 07/28/2019 Med ical New Patient with Candace Grossman [facility] 07/28/2019 Z68.22 - Body mass index (BM I) 22.0-22.9 adult Medical New Patient with Candace Grossman [facility] 07/28/2019 Findings Encounter Date Visit for: contraceptive management Women's Heal th with Linnea Samaniegole [facility] 04/08/2020 Z68.24 - Body mass index (BM I) 24.0-24.9, adult Women's Health with Linnea Luz [facility] 04/08/2020 Depressive disorder Telebehavioral He alth with Emilee Short [facility] 03/29/2020 Generalized anxiety disorder Telebeha vioral Health with Emilee Short [facility] 03/29/2020 Dysthymic disorder Established Patie nt with Bobbi Colon [facility] 10/14/2019 Generalized anxiety disorder Establis hed Patient with Bobbi Colon [facility] 10/14/2019 Z68.24 - Body mass index (BM I) 24.0-24.9 adult Medical Established Patient with Candacehalley Grossman [facility] 10/14/2019 F34.1 - Dysthymic disorder BH Establishe d Patient with Bobbi Colon [facility] 09/04/2019 Generalized anxiety disorder BH Establis hed Patient with Bobbi Colon [facility] 09/04/2019 Body mass index Medical Established Patient with Candace Grossman [facility] 09/04/2019 Diabetes Risk Test Score was 0 score 09/04/2019 Medical Established Patient with Candace Dianelys [facility] 09/04/2019 Body mass index Nurse Visit with Candace Grossman P 08/19/2019 Diabetes Risk Test Score was 0 score 08/19/2019 Nurse Visit with Candace Grossman [facility] 08/19/2019 Generalized anxiety disorder BH Establis hed Patient with Bobbi Colon [facility] 07/28/2019 Severe recurrent major depre 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 features Established Patient with Bobbi Colon [facility] 07/28/2019 AUDIT alcohol use disorders identification test was six 07/28/2019 Medical New Patient with Candace Grossman [facility] 07/28/2019 Diabetes Risk Test Score was 0 score 07/28/2019 Medical New Patient with Candace Grossman [facility] 07/28/2019 ZAN-7 score was 21 07/28/2019 Medical Ne w Patient with Candace Grossman [facility] 07/28/2019 PHQ-9: total score was 21 07/28/2019 Med ical New Patient with Candace Grossman [facility] 07/28/2019 Z68.22 - Body mass index (BM I) 22.0-22.9 adult Medical New Patient with Candace Grossman [facility] 07/28/2019 Findings Encounter Date Body mass index Nurse Visit with Candace Dianelys P 08/19/2019 Diabetes Risk Test Score was 0 score 08/19/2019 Nurse Visit with Candace Dianelys [facility] 08/19/2019 Generalized anxiety disorder Establis hed Patient with Bobbi Colon [facility] 07/28/2019 Severe recurrent major depre 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 features Established Patient with Bobbi Colon [facility] 07/28/2019 AUDIT alcohol use disorders identification test was six 07/28/2019 Medical New Patient with Candace Grossman [facility] 07/28/2019 Diabetes Risk Test Score was 0 score 07/28/2019 Medical New Patient with Candace Grossman [facility] 07/28/2019 ZAN-7 score was 21 07/28/2019 Medical Ne w Patient with Candace Grossman [facility] 07/28/2019 PHQ-9: total score was 21 07/28/2019 Med ical New Patient with Candace Grossman [facility] 07/28/2019 Z68.22 - Body mass index (BM I) 22.0-22.9 adult Medical New Patient with Candace Grossman [facility] 07/28/2019 Findings Encounter Date Overweight Women's Health with Candace Dianelys C.O.D. CLERK 05/03/2020 Z68.24 - Body mass index (BM I) 24.0-24.9, adult Women's Health with Candace Dianelys C.O.D. CLERK 05/03/2020 Visit for: contraceptive management Women's Heal th with Linnea Escobar C.O.D. CLERK 04/08/2020 Z68.24 - Body mass index (BM I) 24.0-24.9, adult Women's Health with Linneamonroe Escobar C.O.D. CLERK 04/08/2020 Depressive disorder Telebehavioral He alth with Emilee Short [facility] 03/29/2020 Generalized anxiety disorder [facility] with Emilee Short [facility] 03/29/2020 Dysthymic disorder Established Patie nt with Bobbi Colon [facility] 10/14/2019 Generalized anxiety disorder BH Establis hed Patient with Bobbileif Colon [facility] 10/14/2019 Z68.24 - Body mass index (BM I) 24.0-24.9 adult Medical Established Patient with Candace Dianelys C.O.D. CLERK 10/14/2019 F34.1 - Dysthymic disorder Establishe d Patient with Bobbileif Colon [facility] 09/04/2019 Generalized anxiety disorder Establis hed Patient with Bobbileif Colon [facility] 09/04/2019 Body mass index Medical Established Patient with Candace Dianelys [facility] 09/04/2019 Diabetes Risk Test Score was 0 score 09/04/2019 Medical Established Patient with Candace Dianelys [facility] 09/04/2019 Body mass index Nurse Visit with Candace Grossman P 08/19/2019 Diabetes Risk Test Score was 0 score 08/19/2019 Nurse Visit with Candacehalley Grossman [facility] 08/19/2019 Generalized anxiety disorder Establis hed Patient with Bobbi Colon [facility] 07/28/2019 Severe recurrent major depre 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 features Established Patient with Bobbi Colon [facility] 07/28/2019 AUDIT alcohol use disorders identification test was six 07/28/2019 Medical New Patient with Candace Grossman [facility] 07/28/2019 Diabetes Risk Test Score was 0 score 07/28/2019 Medical New Patient with Candace Houstonen [facility] 07/28/2019 ZAN-7 score was 21 07/28/2019 Medical Ne w Patient with Candace Dianelys [facility] 07/28/2019 PHQ-9: total score was 21 07/28/2019 Med ical New Patient with Candacehalley Grossman [facility] 07/28/2019 Z68.22 - Body mass index (BM I) 22.0-22.9 adult Medical New Patient with Candace Grossman [facility] 07/28/2019 Instructions Instructions not supported for [...] section and content) DATE CREATED AUTHOR 03/26/2018 [facility] DATE CREATED AUTHOR AUTHOR'S ORGANIZ ATION 05/07/2020 [facility] DATE CREATED AUTHOR AUTHOR'S ORGANIZ ATION 02/10/2023 [facility] DATE CREATED AUTHOR AUTHOR'S ORGANIZ ATION 03/28/2023 [facility] DATE CREATED AUTHOR AUTHOR'S ORGANIZ ATION 12/18/2023 [facility] DATE CREATED AUTHOR AUTHOR'S ORGANIZ ATION 01/14/2024 [facility] DATE CREATED AUTHOR AUTHOR'S ORGANIZ ATION 01/27/2024 [facility] DATE CREATED AUTHOR AUTHOR'S ORGANIZ ATION 02/14/2024 [facility] DATE CREATED AUTHOR AUTHOR'S ORGANIZ ATION 03/17/2024 [facility] dical Specialists [facility] DATE CREATED AUTHOR AUTHOR'S ORGANIZ ATION 03/19/2024 [facility] Evaluations & Outcomes (unre cognized section [...] TO MATERNAL MEDI OFFICE/OUTPATIENT [facility] 60 MINUTES Fransico Sharp MD [address] [place] [address] Referral ID Status Reason Start Date Expiration Date V isits Requested Visits Authorized [id number] Closed PCP Requested Referral Auto-Generated Referral 01/04/2024 [...] Active NON STAFF Primary Care Provider Active Intelligent Systems Engineer Relationship Specialty Start Date End Date [facility] P[facility] - General Nurse Practitioner 07/30/23 Intelligent Systems Engineer Relationship Specialty Start Date End Date Freddie Delgado APRN[facility] PCP - General Nurse Practitioner 07/30/23 Intelligent Systems Engineer Relationship Specialty Start Date End Date Freddie Delgado APRN-C.O.D. CLERK PCP - General Nurse Practitioner 07/30/23 Intelligent Systems Engineer Relationship Specialty Start Date End Date [facility] PCP - General Nurse Practitioner 07/30/23 Intelligent Systems Engineer Relationship Specialty Start Date End Date [facility] PCP - General Nurse Practitioner 07/30/23 Intelligent Systems Engineer Relationship Specialty Start Date End Date Freddie Delgado APRN-C.O.D. CLERK PCP - General Nurse Practitioner 07/30/23 Intelligent Systems Engineer Relationship Specialty Start Date End Date Freddie Delgado APRNC.O.D. CLERK PCP - General Nurse Practitioner 07/30/23 Intelligent Systems Engineer Relationship Specialty Start Date End Date Freddie Delgado [address] [place] [address] PCP - General Family Medicine 12/19/23 Intelligent Systems Engineer Relationship Specialty Start Date End Date Freddie Delgado [address] [place] [address] PCP - General Family Medicine 12/19/23 Intelligent Systems Engineer Relationship Specialty Start Date End Date Freddie Delgado [address] [place] [address] PCP - General Family Medicine 12/19/23 Intelligent Systems Engineer Relationship Specialty Start Date End Date Freddie Delgado [address] [place] [address] PCP - General Family Medicine 12/19/23 Intelligent Systems Engineer Relationship Specialty Start Date End Date Freddie Delgado [address] [place] [address] PCP - General Family Medicine 12/19/23 Intelligent Systems Engineer Relationship Specialty Start Date End Date Freddie Delgado [address] [place] [address] PCP - General Family Medicine 12/19/23 Intelligent Systems Engineer Relationship Specialty Start Date End Date Freddie Delgado [address] [place] [address] PCP - General Family Medicine 12/19/23 Intelligent Systems Engineer Relationship Specialty Start Date End Date Freddie Delgado [address] [place] [address] PCP - General Family Medicine 12/19/23 Intelligent Systems Engineer Relationship Specialty Start Date End Date Freddie Delgado [address] [place] [address] PCP - General Family Medicine 12/19/23 Intelligent Systems Engineer Relationship Specialty Start Date End Date Freddie Delgado [address] [place] [address] PCP - General Family Medicine 12/19/23 Intelligent Systems Engineer Relationship Specialty Start Date End Date Freddie Delgado [address] [place] [address] PCP - General Family Medicine 12/19/23 Intelligent Systems Engineer Relationship Specialty Start Date End Date Freddie Delgado [address] [place] [address] PCP - General Family Medicine 12/19/23 Intelligent Systems Engineer Relationship Specialty Start Date End Date Freddie Delgado AdrianPRADEEP [address] [place] [address] PCP - General Family Medicine 12/19/23 Intelligent Systems Engineer Relationship Specialty Start Date End Date Freddie Delgado CNP [address] [place] [address] PCP - General Family Medicine 12/19/23 Intelligent Systems Engineer Relationship Specialty Start Date End Date Freddie Delgado CNP [address] [place] [address] PCP - General Family Medicine 12/19/23 Intelligent Systems Engineer Relationship Specialty Start Date End Date Freddie Delgado CNP [address] [place] [address] PCP - General Family Medicine 12/19/23 Goals [...] or prosecute any alcohol or drug abuse patient.[facility] System[facility] the event this information is protected by the Federal Confidentiality of Alcohol and Drug Abuse Patient Records regulations: The Federal rules restrict any use of the information to criminally investigate or prosecute any alcohol or drug abuse patient.[facility] SystemIn the event this information is protected by the Federal Confidentiality of Alcohol and Drug Abuse Patient Records regulations: The Federal rules restrict any use of the information to criminally investigate or prosecute any alcohol or drug abuse patient.[facility] SystemIn the event this information is protected by the Federal Confidentiality of Alcohol and Drug Abuse Patient Records regulations: The Federal rules restrict any use of the information to criminally investigate or prosecute any alcohol or drug abuse patient.[facility] SystemIn the event this information is protected by the Federal Confidentiality of Alcohol and Drug Abuse Patient Records regulations: The Federal rules restrict any use of the information to criminally investigate or prosecute any alcohol or drug abuse patient.[facility] SystemIn the event this information is protected by the Federal Confidentiality of Alcohol and Drug Abuse Patient Records regulations: The Federal rules restrict any use of the information to criminally investigate or prosecute any alcohol or drug abuse patient.[facility] SystemIn the event this information is protected by the Federal Confidentiality of Alcohol and Drug Abuse Patient Records regulations: The Federal rules restrict any use of the information to criminally investigate or prosecute any alcohol or drug abuse patient.[facility] SystemIn the event this information is protected by the Federal Confidentiality of Alcohol and Drug Abuse Patient Records regulations: The Federal rules restrict any use of the information to criminally investigate or prosecute any alcohol or drug abuse patient.[facility] SystemIn the event this information is protected by the Federal Confidentiality of Alcohol and Drug Abuse Patient Records regulations: The Federal rules restrict any use of the information to criminally investigate or prosecute any alcohol or drug abuse patient.[facility] SystemIn the event this information is protected by the Federal Confidentiality of Alcohol and Drug Abuse Patient Records regulations: The Federal rules restrict any use of the information to criminally investigate or prosecute any alcohol or drug abuse patient.[facility] SystemIn the event this information is protected by the Federal Confidentiality of Alcohol and Drug Abuse Patient Records regulations: The Federal rules restrict any use of the information to criminally investigate or prosecute any alcohol or drug abuse patient.[facility] SystemIn the event this information is protected by the Federal Confidentiality of Alcohol and Drug Abuse Patient Records regulations: The Federal rules restrict any use of the information to criminally investigate or prosecute any alcohol or drug abuse patient.[facility] SystemIn the event this information is protected by the Federal Confidentiality of Alcohol and Drug Abuse Patient Records regulations: The Federal rules restrict any use of the information to criminally investigate or prosecute any alcohol or drug abuse patient.[facility] SystemIn the event this information is protected by the Federal Confidentiality of Alcohol and Drug Abuse Patient Records regulations: The Federal rules restrict any use of the information to criminally investigate or prosecute any alcohol or drug abuse patient.[facility] SystemIn the event this information is protected by the Federal Confidentiality of Alcohol and Drug Abuse Patient Records regulations: The Federal rules restrict any use of the information to criminally investigate or prosecute any alcohol or drug abuse patient.[facility] SystemIn the event this information is protected by the Federal Confidentiality of Alcohol and Drug Abuse Patient Records regulations: The Federal rules restrict any use of the information to criminally investigate or prosecute any alcohol or drug abuse patient.[facility] SystemIn the event this information is protected by the Federal Confidentiality of Alcohol and Drug Abuse Patient Records regulations: The Federal rules restrict any use of the information to criminally investigate or prosecute any alcohol or drug abuse patient.[facility] SystemIn the event this information is protected by the Federal Confidentiality of Alcohol and Drug Abuse Patient Records regulations: The Federal rules restrict any use of the information to criminally investigate or prosecute any alcohol or drug abuse patient.[facility] FOR RECORDS PERTAINING TO PATIENTS WHO ARE [...] BE BASED ON THE PRIMARY CLINICAL RECORDS. [facility] [employer] [facility]. provides no warranty or guarantee of the accuracy or completeness of information in this document.
[2024-04-01 11:05] VITALS: BP 136/79; PULSE 86; TEMP 36.8; O2SAT 94
--- NOTE | 2024-04-01 12:43 | PC.NURSE ---
Jason Mcclellan and Aliya arrive for a follow up visit.
--- NOTE | 2024-04-01 12:47 | PC.NURSE ---
1125- Vy states nipples have been sore and bleeding so has not latched baby or pumped breast for 2 days. Reviewed supply and demand with Vy and discussed goals, states she would like to feed baby at breast. Assisted with latching to breast, deep latch noted, occasional swallow noted. Infant feeds for 7 minutes on Right side. Repositioned to Left side cradle hold and latches for 3 minutes and comes off crying. Attempted football hold position without success. Much encouragement and education given on proper positioning, latching, frequency of feedings. Plan of care reviewed to feed infant or pump every 2 hours during the day and one 4 hour stretch at night, verbalizes understanding. Offered follow up visit tomorrow, requests to wait until Saturday 04/07. Encouraged to call with questions, verbalizes understanding.
== END 2024-04-01 12:00 | disposition home or self-care (01) ==
LOC: FBCO 07:42
PROVIDERS: Visit Provider Obstetrics & Gynecology
DX: Z39.2 Encounter for routine postpartum follow-up (principal)

== ENCOUNTER 2025-07-13 15:36 | Outpatient (RCR) | payer MEDICAID, SELFPAY | END 2025-07-17 08:24 | disposition home or self-care (01) | LOC: PT 15:36 | PROVIDERS: Visit Provider Nurse Practitioner | DX: M25.551 Pain in right hip (principal); M25.552 Pain in left hip; G89.29 Other chronic pain | CPT/HCPCS: 97110; 97161 ==